=== PATIENT | female | born 1960 | race Caucasian/White ===

== ENCOUNTER → 2017-01-08 | Outpatient (CLI) | payer MEDICARE ==
--- NOTE | 2017-01-10 08:10 | MM ---
Reason for exam: screening (asymptomatic). Last mammogram was performed 2 years and 6 months ago. History: Patient is postmenopausal. Physical Findings: A clinical breast exam by your physician is recommended on an annual basis and results should be correlated with mammographic findings. MG 3D Screening Mammo W/Cad Bilateral CC, MLO, and XCCL view(s) were taken. Prior study comparison: July 04, 2014, bilateral MG screening mammo w CAD. January 15, 2012, [facility] DIGITAL RIGHT MAMMOGRAM w/CAD. January 08, 2012, bilateral digital screening mammo w/CAD. The breast tissue is heterogeneously dense. This may lower the sensitivity of mammography. Stable scattered bilateral calcifications. ASSESSMENT: Negative, BI-RAD 1 RECOMMENDATION: Routine screening mammogram of both breasts in 1 year.
== END | disposition home or self-care (01) ==
LOC: RADMAMWWP 16:34
PROVIDERS: ATTEND Family Medicine
DX: Z12.31 Encounter for screening mammogram for malignant neoplasm of breast (principal)
CPT/HCPCS: 77063; G0202

== ENCOUNTER 2017-08-28 18:15 | Emergency (ER) | payer MEDICARE ==
[2017-08-28 20:41] LABS: Glucose,Whole Blood 448 mg/dL (75-99)
--- NOTE | 2017-08-28 21:14 | ED ---
Extremity Problem HPI - General Chief complaint: Extremity Problem,Nontraumatic Stated complaint: diabetic feet problem Time Seen by Provider: 08/28/17 19:46 Source: patient, RN notes reviewed, old records reviewed Mode of arrival: ambulatory Limitations: no limitations - History of Present Illness Initial comments: This patient is a 57-year-old female presents emergency Department chief complaint of areas of erythema and changes over her right great toe, right second toe, and left second toe. Patient reports that she had this for approximately one day. She reports that she took a shower on Friday and didn 't notice any of this. She does have a history of diabetes and has not been on her medications for many months. Patient's concerned about her blood sugar levels. Patient states that she has neuropathy. - Related Data Home Medications Medication Instructions Recorded Confirmed HYDROcodone/APAP 7.5-325MG [[place] 1 tab PO Q6HR PRN 01/24/14 08/28/17 7.5] Ibuprofen [Motrin Ib] 200 - 400 mg PO Q6H PRN 08/28/17 08/28/17 Ibuprofen/Diphenhydramine HCl 1 cap PO HS 08/28/17 08/28/17 [Advil Pm Liqui-Gels] Multivitamins, Thera [Multivitamin 1 tab PO DAILY 08/28/17 08/28/17 (formulary)] Allergies Allergy/AdvReac Type Severity Reaction Status Date / Time pregabalin [From Lyrica] AdvReac Swelling Verified 08/28/17 19:46 trazodone AdvReac Unknown Verified 08/28/17 19:46 Review of Systems ROS Statement: Those systems with pertinent positive or pertinent negative responses have been documented in the HPI. ROS Other: All systems not noted in ROS Statement are negative. Past Medical History Past Medical History: Diabetes Mellitus, Fibromyalgia, Hyperlipidemia Additional Past Medical History / Comment(s): myalgia, myositis, sciatica, chronic pain syndrome, vaginitis, otalgia, fatigue, malaise, UTI, microscopic hematuria, tachycardia, insomnia, lumbago, degenerative disc, colitis History of Any Multi-Drug Resistant Organisms: None Reported Past Surgical History: Orthopedic Surgery Additional Past Surgical History / Comment(s): left wrist Past Psychological History: No Psychological Hx Reported Smoking Status: Current every day smoker Past Alcohol Use History: None Reported Past Drug Use History: None Reported General Exam - General Exam Comments Initial Comments: This patient is a 57-year-old female. No acute distress. Limitations: no limitations General appearance: alert, in no apparent distress Head exam: Present: atraumatic, normocephalic, normal inspection Eye exam: Present: normal appearance, PERRL, EOMI. Absent: scleral icterus, conjunctival injection, periorbital swelling ENT exam: Present: normal exam, mucous membranes moist Neck exam: Present: normal inspection. Absent: tenderness, meningismus, lymphadenopathy Respiratory exam: Present: normal lung sounds bilaterally. Absent: respiratory distress, wheezes, rales, rhonchi, stridor Cardiovascular Exam: Present: regular rate, normal rhythm, normal heart sounds. Absent: systolic murmur, diastolic murmur, rubs, gallop, clicks GI/Abdominal exam: Present: soft, normal bowel sounds. Absent: distended, tenderness, guarding, rebound, rigid Extremities exam: Present: full ROM, normal capillary refill. Absent: normal inspection, tenderness, pedal edema, joint swelling, calf tenderness Left Lower Leg exam: Present: normal inspection, full ROM Ankle exam: Present: normal inspection, full ROM Foot/Toe exam: Present: full ROM. Absent: normal inspection (Patient has an area of blistering over the right great toe. Area of black blistering over the distal part of the right second toe. There is also a black blister on the second left toe. Full range of motion noted.), tenderness, swelling, abrasion Neurovascular tendon exam: Present: no vascular compromise Gait: observed and normal Back exam: Present: normal inspection Neurological exam: Present: alert, oriented X3, CN II-XII intact Psychiatric exam: Present: normal affect, normal mood Skin exam: Present: warm, dry, intact, normal color. Absent: rash Course Vital Signs 08/28/17 18:54 Temperature 98.0 F Pulse Rate 109 H Respiratory 16 Rate Blood Pressure 116/55 O2 Sat by Pulse 98 Oximetry Medical Decision Making - Medical Decision Making Patient is a 57-year-old female presents today with changes to her right first and second toe and left second toe. She reports it started today. It appears that there black blisterlike lesions over the distal end of the toe. She has full range of motion. No pus or significant drainage from them. It appears that they are related to rubbing on her shows as they are on both feet. Pulses were normal bilaterally. Full range of motion. She does have some minor diminished sensation in 8. She has a history of diabetes. Patient's blood sugar was elevated at 450. Patient has no anion gap. Patient was given Unasyn insulin. Discussion is follow-up with her primary care provider regards to insulin dosing. At this time I had Dr. Kemp and Dr. Mcgee both examine the foot. They don't believe that she is antibiotics and no significant infection at this time. Patient will be discharged advised to apply motions to the feet and the skin will eventually come off at the scene. Been "blood blisters". Patient will be discharged at this time with follow-up with podiatry. - Lab Data Result diagrams: 08/28/17 21:05 08/28/17 21:05 Lab Results 08/28/17 08/28/17 08/28/17 Range/Units 20:39 21:05 21:05 WBC 7.3 (3.8-10.6) k/uL RBC 4.70 (3.80-5.40) m/uL Hgb 14.4 (11.4-16.0) gm/dL Hct 43.8 (34.0-46.0) % MCV 93.2 (80.0-100.0) fL MCH 30.7 (25.0-35.0) pg MCHC 32.9 (31.0-37.0) g/dL RDW 12.7 (11.5-15.5) % Plt Count 194 (150-450) k/uL Neutrophils % 49 % Lymphocytes % 40 % Monocytes % 4 % Eosinophils % 4 % Basophils % 1 % Neutrophils # 3.6 (1.3-7.7) k/uL Lymphocytes # 3.0 (1.0-4.8) k/uL Monocytes # 0.3 (0-1.0) k/uL Eosinophils # 0.3 (0-0.7) k/uL Basophils # 0.1 (0-0.2) k/uL Sodium 137 (137-145) mmol/L Potassium 4.0 (3.5-5.1) mmol/L Chloride 96 L (98-107) mmol/L Carbon Dioxide 32 H (22-30) mmol/L Anion Gap 9 mmol/L BUN 15 (7-17) mg/dL Creatinine 0.40 L (0.52-1.04) mg/dL Est GFR (MDRD) Af Amer >60 (>60 ml/min/1.73 sqM) Est GFR (MDRD) Non-Af >60 (>60 ml/min/1.73 sqM) Glucose 415 H (74-99) mg/dL POC Glucose (mg/dL) 448 H (75-99) mg/dL POC Glu [employer] Professor ID Sita Baker Calcium 9.5 (8.4-10.2) mg/dL Disposition Clinical Impression: Blister of foot, Hyperglycemia Disposition: HOME SELF-CARE Condition: Good Instructions: Blister (ED), Diabetic Hyperglycemia (ED) Additional Instructions: Patient should follow-up with primary care physician for elevated blood sugars. Follow-up with podiatry regards to the blisters on the toes. Apply moisturizing lotion over the feet. Wear nonconstrictive footwear. Return if there is any alarming signs or symptoms that occur. Referrals: Vince Marcos III, MD [Primary Care Provider] - 1-2 days Jerson Frank DPM [STAFF PHYSICIAN] - 1-2 days Time of Disposition: 21:50
--- NOTE | 2017-08-28 21:18 | XR ---
EXAMINATION TYPE: XR toes bilateral DATE OF EXAM: 08/28/2017 COMPARISON: NONE HISTORY: Pain great toe and second toe discoloration TECHNIQUE: Toes are examined in 3 projections each. FINDINGS: The right great toe appears without acute fracture. There is some degenerative joint changes present. Some elevated nail may be present. Left fourth digit has soft tissue swelling. There is medial angulation of the digit. Acute fracture i s not identified. Note is made of some elevated nailbed on the left great toe. IMPRESSION: 1. No acute fractures. 2. Left fourth digit soft tissue swelling. 3. Evaluation of the great toe nails is recommended
[2017-08-28 21:22] LABS: Basophils # (A) 0.1 k/uL (0-0.2); Basophils % (A) 1 %; Eosinophils # (A) 0.3 k/uL (0-0.7); Eosinophils % (A) 4 %; HCT 43.8 % (34.0-46.0); HGB 14.4 gm/dL (11.4-16.0); Lymphocytes % (A) 40 %; MCH 30.7 pg (25.0-35.0); MCHC 32.9 g/dL (31.0-37.0); MCV 93.2 fL (80.0-100.0); Monocytes # (A) 0.3 k/uL (0-1.0); Monocytes % (A) 4 %; Neutrophils # (A) 3.6 k/uL (1.3-7.7); Neutrophils % (A) 49 %; Platelet Count 194 k/uL (150-450); RDW 12.7 % (11.5-15.5); WBC 7.3 k/uL (3.8-10.6)
[2017-08-28] MEDS ORDERED: INSULIN REGULAR 100 UNIT/ML VIAL IV ONE (21:22)
[2017-08-28 21:33] LABS: Anion Gap 9 mmol/L; Blood Urea Nitrogen 15 mg/dL (7-17); Calcium 9.5 mg/dL (8.4-10.2); Carbon Dioxide 32 mmol/L (22-30); Chloride 96 mmol/L (98-107); Glucose 415 mg/dL (74-99); Sodium 137 mmol/L (137-145)
[2017-08-28] MEDS ORDERED: SODIUM CHLORIDE 0.9% 1,000 ML IV ONE (21:49)
[2017-08-28 22:41] LABS: Glucose,Whole Blood 341 mg/dL (75-99)
[2017-08-28 22:47] VITALS: BP 133/79; PULSE 104; RESP 18; TEMP 97.7
[2017-08-29 01:21] LABS: Hemoglobin A1C 13.3 % (4.0-6.0)
== END 2017-08-28 22:50 | disposition home or self-care (01) ==
LOC: EC 18:15
DX: S90.421A Blister (nonthermal), right great toe, initial encounter (principal); S90.424A Blister (nonthermal), right lesser toe(s), initial encounter; E11.65 Type 2 diabetes mellitus with hyperglycemia; M79.7 Fibromyalgia; F17.200 Nicotine dependence, unspecified, uncomplicated; Z79.899 Other long term (current) drug therapy; Z79.1 Long term (current) use of non-steroidal anti-inflammatories (NSAID); Z88.8 Allergy status to other drugs, medicaments and biological substances
CPT/HCPCS: 36415; 80048; 83036; 85025; 96360; 99284

== ENCOUNTER 2017-10-30 12:59 | Emergency (ER) | payer MEDICARE ==
[2017-10-30 13:27] VITALS: RESP 18
[2017-10-30] MEDS ORDERED: KETOROLAC 30 MG/ML 1 ML VIAL IM STA (14:16)
--- NOTE | 2017-10-30 14:31 | ED ---
Fall HPI - General Chief Complaint: Fall Stated Complaint: fall, rt sided pain Time Seen by Provider: 10/30/17 13:54 Source: patient, RN notes reviewed Mode of arrival: ambulatory - History of Present Illness Initial Comments: This is a 57-year-old female who presents to the emergency department with chief complaint of right-sided rib pain. Patient states that on Friday she went to step over a baby gate and tripped over it, landing on her right side. Patient complains of right-sided rib pain. She states that she takes [place] but that it has not been helping to relieve the pain. Denies any other injury or trauma. Denies head or neck trauma. She does complain of some right-sided low back pain, however states that she does have chronic back pain. Denies fever, chills, chest pain, shortness of breath, abdominal pain, nausea or vomiting, constipation or diarrhea, dysuria or hematuria, numbness or tingling, headache or vision changes. - Related Data Home Medications Medication Instructions Recorded Confirmed HYDROcodone/APAP 7.5-325MG [[place] 1 tab PO Q6HR PRN 01/24/14 08/28/17 7.5] Ibuprofen [Motrin Ib] 200 - 400 mg PO Q6H PRN 08/28/17 08/28/17 Ibuprofen/Diphenhydramine HCl 1 cap PO HS 08/28/17 08/28/17 [Advil Pm Liqui-Gels] Multivitamins, Thera [Multivitamin 1 tab PO DAILY 08/28/17 08/28/17 (formulary)] Allergies Allergy/AdvReac Type Severity Reaction Status Date / Time pregabalin [From Lyrica] AdvReac Swelling Verified 10/30/17 13:27 trazodone AdvReac Unknown Verified 10/30/17 13:27 Review of Systems ROS Statement: Those systems with pertinent positive or pertinent negative responses have been documented in the HPI. ROS Other: All systems not noted in ROS Statement are negative. Past Medical History Past Medical History: Diabetes Mellitus, Fibromyalgia, Hyperlipidemia Additional Past Medical History / Comment(s): myalgia, myositis, sciatica, chronic pain syndrome, vaginitis, otalgia, fatigue, malaise, UTI, microscopic hematuria, tachycardia, insomnia, lumbago, degenerative disc, colitis History of Any Multi-Drug Resistant Organisms: None Reported Past Surgical History: Orthopedic Surgery Additional Past Surgical History / Comment(s): left wrist Past Psychological History: No Psychological Hx Reported Smoking Status: Current every day smoker Past Alcohol Use History: None Reported Past Drug Use History: None Reported General Exam - General Exam Comments Initial Comments: General: Awake and alert, well-developed; in no apparent distress. HEENT: Head atraumatic, normocephalic. Pupils are equal, round and reactive to light. Extraocular movements intact. Oropharynx moist without erythema or exudate. Neck: Supple. Normal ROM. Cardiovascular: Regular rate and rhythm. No murmurs, rubs or gallops. Chest symmetrical. Respiratory: Lungs clear to auscultation bilaterally. No wheezes, rales or rhonchi. Normal respiratory effort with no use of accessory muscles. Musculoskeletal: Tenderness on palpation of right lower lateral ribs. No ecchymosis, erythema or swelling noted. Normal range of motion and no tenderness bilateral upper and lower extremities. Ambulating normally. Normal range of motion of the spine. No bony point vertebral or SI joint tenderness. Pedal pulses are 2+ equal and palpable bilaterally. Skin: [place], warm and dry without rashes or lesions. Neurological: Alert and oriented x3. CN II-XII grossly intact. Speech is fluent and answers are appropriate. No focal neuro deficits. Psychiatric: Normal mood and affect. No overt signs of depression or anxiety noted. Limitations: no limitations Course Vital Signs 10/30/17 13:24 Temperature 99.7 F H Pulse Rate 100 Respiratory 18 Rate Blood Pressure 122/78 O2 Sat by Pulse 99 Oximetry Medical Decision Making - Medical Decision Making This is a 57-year-old female who presents to the emergency department for evaluation of right-sided rib pain after sustaining a fall on Friday. There is tenderness on palpation of right lower lateral ribs. PA chest and right rib x- ray revealed no acute pulmonary process or displaced rib fractures. Patient's vital signs have been stable and she is in no acute distress. She will be discharged home with recommendation to perform deep breathing in order to prevent pneumonia. She can take Tylenol or Motrin as needed. Patient is in agreement with plan and voices understanding. All questions were answered. - Radiology Data Radiology results: report reviewed PA chest and right rib series findings: The cardiomediastinal silhouette, aortic and pulmonary vasculature within normal limits. Stranding atelectasis in the mid and lower lungs. Otherwise, lungs and pleural spaces are clear. Evaluation of the right-sided ribs shows no evidence for fracture. Impression: No acute cardiopulmonary process. No displaced right rib fracture seen. Disposition Clinical Impression: Rib contusion Disposition: HOME SELF-CARE Condition: Good Instructions: Rib Contusion (ED) Additional Instructions: Please perform deep breathing at least 3 times an hour for the next week. May take Tylenol or Motrin as needed for pain. Please follow up with primary care provider within 1-2 days. Return to emergency department if symptoms should worsen or any concerns arise. Referrals: Vince Marcos III, MD [Primary Care Provider] - 1-2 days Time of Disposition: 15:29
--- NOTE | 2017-10-30 15:08 | XR ---
EXAMINATION TYPE: PA chest and right rib series DATE OF EXAM: 10/30/2017 COMPARISON: None HISTORY: 57-year-old female with fall and pain TECHNIQUE: 5 views FINDINGS: The cardiomediastinal silhouette, aorta, and pulmonary vasculature are within normal limits. Strandy atelectasis in the mid and lower lungs. Otherwise, lungs and pleural spaces are clear. Evaluation of the right-sided ribs shows no evidence for displaced fracture. IMPRESSION: No acute cardiopulmonary process. No displaced right rib fracture seen.
[2017-10-30 15:38] VITALS: BP 151/85; PULSE 90; TEMP 98.6
== END 2017-10-30 15:37 | disposition home or self-care (01) ==
LOC: EC 12:59
DX: S20.211A Contusion of right front wall of thorax, initial encounter (principal); M79.7 Fibromyalgia; F17.200 Nicotine dependence, unspecified, uncomplicated; Z88.5 Allergy status to narcotic agent; Z88.8 Allergy status to other drugs, medicaments and biological substances; Z79.1 Long term (current) use of non-steroidal anti-inflammatories (NSAID); Z79.899 Other long term (current) drug therapy; W01.0XXA Fall on same level from slipping, tripping and stumbling without subsequent striking against object, initial encounter; Y92.009 Unspecified place in unspecified non-institutional (private) residence as the place of occurrence of the external cause
CPT/HCPCS: 96372; 99283

== ENCOUNTER → 2019-06-28 | Outpatient (CLI) | payer MEDICARE ==
--- NOTE | 2019-06-28 16:24 | FL ---
EXAMINATION TYPE: FL UGI w esophagus DATE OF EXAM: 06/28/2019 CLINICAL HISTORY: Dysphagia some choking and weight loss TECHNIQUE: A double air contrast UGI study is performed. COMPARISON: None FINDINGS: Fluoroscopy time: 1 minute 52 seconds Images: 30 Esophagus dilates to normal caliber has normal contour to the gastroesophageal junction. Gastroesopha geal junction opens to normal caliber. Note is made of multiple tertiary contractions present within the esophagus during this exam. In the horizontal drinking position there is incomplete stripping of the esophageal bolus with a secondary contraction observed within the mid esophagus. Fundus body and antrum of the stomach visualized appear normal. No intraluminal or extramural defects are evident. Barium readily empties into the normally positioned duodenal cap and sweep. Duodenal fold pattern phan ears within normal limits. IMPRESSION: 1. Presbyesophagus with secondary and tertiary contractions. 2. Stomach appears within normal limits.
== END | disposition home or self-care (01) ==
LOC: RADUSWWP 09:50
PROVIDERS: ATTEND Family Medicine
DX: K22.8 Other specified diseases of esophagus (principal)
CPT/HCPCS: 74240

== ENCOUNTER → 2020-01-02 | Outpatient (CLI) | payer MEDICARE ==
--- NOTE | 2020-01-02 08:09 | CT ---
EXAMINATION TYPE: CT lumbar spine wo con DATE OF EXAM: 01/02/2020 7:46 AM COMPARISON: None HISTORY: Low back pain, unsteadiness on feet, weakness. Dizziness CT DLP: 411.8 mGycm Automated exposure control for dose reduction was used. TECHNIQUE: Unenhanced CT of the lumbar spine was performed. Bone and soft tissue window settings are submitted as well as coronal and sagittal reconstructions. FINDINGS: The lumbar spine vertebral bodies maintain normal vertebral alignment and vertebral body he ights. Small anterior osteophytes and multilevel facet arthropathy are seen with minimal intervertebr al disc space narrowing at L5-S1. Layering biliary sludge is seen within the dependent gallbladder. M oderate atheromatous changes of the abdominal aorta and its branches. There is osseous demineralizati on, particularly demonstrated within the sacrum, this overall slightly limits evaluation. L1-L2: Normal disc space height. No gross evidence of disc herniation or central stenosis. No facet joint arthropathy. No evidence for foraminal encroachment. L2-L3: Posterior projecting osteophyte from the inferior aspect of the L2 vertebral body. There is a broad-based disc bulge and facet arthropathy without significant spinal canal stenosis on CT. Minimal bilateral neural foraminal narrowing. L3-L4: There is a left eccentric broad-based disc bulge, facet arthropathy and ligamentum flavum davidson ling creating minimal bilateral neural foraminal narrowing and minimal spinal canal stenosis. L4-L5: There is a right eccentric disc bulge, ligamentum flavum buckling and facet arthropathy creati ng mild left and moderate right neural foraminal narrowing with the appearance of severe spinal canal stenosis. L5-S1: There is prominent ligamentum flavum buckling and facet arthropathy resulting in at least mode rate spinal canal stenosis. Posterior projecting osteophytes contribute to moderate left and mild rig ht neural foraminal narrowing. Mild degree anasarca seen. IMPRESSION: 1. No vertebral body height loss or malalignment. 2. Appearance of severe spinal canal stenosis at L4-L5 and moderate spinal stenosis at L5-S1 secondar y to pronounced ligamentum flavum buckling, facet arthropathy and disc bulges. Finding could be confi rmed with MRI. If there are symptoms of cauda equina syndrome MRI would be recommended to further bailee luate for disc herniation as described herniation is limited on CT. 3. Moderate degenerative disc disease with variable degrees of neural foraminal narrowing detail at e ach level above. 4. Mild degree anasarca and probable biliary sludge are incidentally noted.
== END | disposition home or self-care (01) ==
LOC: RADCTMAIN 07:11
PROVIDERS: ATTEND Family Medicine
DX: M48.061 Spinal stenosis, lumbar region without neurogenic claudication (principal); M48.07 Spinal stenosis, lumbosacral region; M51.26 Other intervertebral disc displacement, lumbar region; M51.36 Other intervertebral disc degeneration, lumbar region; M47.816 Spondylosis without myelopathy or radiculopathy, lumbar region; R26.81 Unsteadiness on feet; R53.1 Weakness; R42 Dizziness and giddiness; W18.39XA Other fall on same level, initial encounter
CPT/HCPCS: 72131

== ENCOUNTER 2020-03-12 15:39 | Observation (INO) | payer MEDICARE ==
--- NOTE | 2020-03-12 16:13 | ED ---
General Adult HPI - General Chief complaint: Weakness Stated complaint: no appetite, recent C-diff Time Seen by Provider: 03/12/20 15:56 Source: patient Mode of arrival: wheelchair Limitations: no limitations - History of Present Illness Initial comments: Dictation was produced using Personal dictation software. please excuse any grammatical, word or spelling errors. This patient was cared for during a federal and state declared state of emergenc y secondary to Covid 19 Chief Complaint: 59-year-old female with past medical history of diabetes, fibromyalgia and dyslipidemia presents with generalized weakness. History of Present Illness: She is a 59-year-old female is presents today with symptoms since yesterday. She reports that her symptoms are poor appetite, nausea and generalized weakness. She states her symptoms remind her of when she was diagnosed with [facility] infection. States that she was admitted to [facility] for several days about a month ago. She is currently residing under the care of her friends so that she may recover. Patient normally lives by herself. She was urged to come to the emergency department by a friend's to be evaluated because patient will be at home by herself for the next couple days. Patient has any pain complaints at this time. Denies any nausea or vomiting. No diarrhea. No black tarry stools. States that she's been doing pre-well since being discharged from the hospital month ago from our [facility] difficile. She is putting on weight. The ROS documented in this emergency department record has been reviewed and confirmed by me. Those systems with pertinent positive or negative responses have been documented in the HPI. All other systems are other negative and/or noncontributory. PHYSICAL EXAM: General Impression: Alert and oriented x3, not in acute distress HEENT: Normocephalic atraumatic, extra-ocular movements intact, pupils equal and reactive to light bilaterally, mucous membranes moist. Cardiovascular: Heart regular rate and rhythm Chest: Able to complete full sentences, no retractions, no tachypnea Abdomen: abdomen soft, non-tender, non-distended, no organomegaly Musculoskeletal: Pulses present and equal in all extremities, no peripheral edema Motor: no focal deficits noted Neurological: CN II-XII grossly intact, no focal motor or sensory deficits noted Skin: Intact with no visualized rashes Psych: Normal affect and mood ED course: 59-year-old female presents with generalized weakness and fatigue. Signs upon arrival are within acceptable limits. Physical examination is benign. Laboratory evaluation obtained. Mild leukocytosis 14.2. Hemoglobin is 10.6. Total hemoglobin is 4 when compared to hemoglobin level from January. Metabolic panel is unremarkable. Rest of labs are negative. At this point there is no obvious source of bleeding but however it's likely secondary to GI bleed. Patient be admitted with GI consultation. EKG interpretation: Ventricular rate 83, sinus rhythm,. Interval 1:30, QRS 76, QTC 462. No AR prolongation, no QTC prolongation, no ST or T-wave changes noted. No old EKG for comparison Overall, this EKG is unremarkable - Related Data Home Medications Medication Instructions Recorded Confirmed HYDROcodone/APAP 7.5-325MG [[place] 1 tab PO Q6HR PRN 01/24/14 08/28/17 7.5] Ibuprofen [Motrin Ib] 200 - 400 mg PO Q6H PRN 08/28/17 08/28/17 Ibuprofen/Diphenhydramine HCl 1 cap PO HS 08/28/17 08/28/17 [Advil Pm Liqui-Gels] Multivitamins, Thera [Multivitamin 1 tab PO DAILY 08/28/17 08/28/17 (formulary)] Allergies Allergy/AdvReac Type Severity Reaction Status Date / Time pregabalin [From Lyrica] AdvReac Swelling Verified 03/12/20 15:41 trazodone AdvReac Unknown Verified 03/12/20 15:41 Review of Systems ROS Statement: Those systems with pertinent positive or pertinent negative responses have been documented in the HPI. ROS Other: All systems not noted in ROS Statement are negative. Past Medical History Past Medical History: Diabetes Mellitus, Fibromyalgia, Hyperlipidemia Additional Past Medical History / Comment(s): myalgia, myositis, sciatica, chronic pain syndrome, vaginitis, otalgia, fatigue, malaise, UTI, microscopic hematuria, tachycardia, insomnia, lumbago, degenerative disc, colitis History of Any Multi-Drug Resistant Organisms: C-DIFF Date of last positivie culture/infection: February 15 2020 Past Surgical History: Orthopedic Surgery Additional Past Surgical History / Comment(s): left wrist Past Psychological History: No Psychological Hx Reported Past Alcohol Use History: None Reported Past Drug Use History: None Reported General Exam Limitations: no limitations Course Vital Signs 03/12/20 15:41 Temperature 98.9 F Pulse Rate 95 Respiratory 16 Rate Blood Pressure 137/85 O2 Sat by Pulse 96 Oximetry Medical Decision Making - Lab Data Result diagrams: 03/12/20 16:29 03/12/20 16:29 Lab Results 03/12/20 03/12/20 Range/Units 16:29 16:29 WBC 14.2 H (3.8-10.6) k/uL RBC 3.62 L (3.80-5.40) m/uL Hgb 10.6 L D (11.4-16.0) gm/dL Hct 34.0 (34.0-46.0) % MCV 94.1 (80.0-100.0) fL MCH 29.2 (25.0-35.0) pg MCHC 31.1 (31.0-37.0) g/dL RDW 14.0 (11.5-15.5) % Plt Count 422 (150-450) k/uL Neutrophils % 84 % Lymphocytes % 8 % Monocytes % 5 % Eosinophils % 0 % Basophils % 0 % Neutrophils # 12.0 H (1.3-7.7) k/uL Lymphocytes # 1.2 (1.0-4.8) k/uL Monocytes # 0.8 (0-1.0) k/uL Eosinophils # 0.0 (0-0.7) k/uL Basophils # 0.0 (0-0.2) k/uL Hypochromasia Slight Sodium 133 L (137-145) mmol/L Potassium 4.0 (3.5-5.1) mmol/L Chloride 95 L (98-107) mmol/L Carbon Dioxide 27 (22-30) mmol/L Anion Gap 11 mmol/L BUN 21 H (7-17) mg/dL Creatinine 0.23 L (0.52-1.04) mg/dL Est GFR (CKD-EPI)AfAm >90 (>60 ml/min/1.73 sqM) Est GFR (CKD-EPI)NonAf >90 (>60 ml/min/1.73 sqM) Glucose 373 H (74-99) mg/dL Calcium 8.2 L (8.4-10.2) mg/dL Ionized Calcium Vishal 4.6 (4.5-5.3) mg/dL Magnesium 1.9 (1.6-2.3) mg/dL Total Bilirubin 0.7 (0.2-1.3) mg/dL AST 20 (14-36) U/L ALT 12 (4-34) U/L Alkaline Phosphatase 122 (38-126) U/L Total Protein 6.3 (6.3-8.2) g/dL Albumin 2.9 L (3.5-5.0) g/dL Lipase 20 L (23-300) U/L TSH 0.693 (0.465-4.680) mIU/L Disposition Clinical Impression: Symptomatic anemia Disposition: ADMITTED IP TO THIS HOSP Condition: Fair Referrals: Vince Marcos III, MD [Primary Care Provider] - 1-2 days Decision Time: 17:44
[2020-03-12 16:38] LABS: Basophils % (A) 0 %; Eosinophils % (A) 0 %; Hypochromasia Slight; Lymphocytes # (A) 1.2 k/uL (1.0-4.8); Lymphocytes % (A) 8 %; MCH 29.2 pg (25.0-35.0); MCHC 31.1 g/dL (31.0-37.0); MCV 94.1 fL (80.0-100.0); Mean Platelet Volume 7.5; Monocytes # (A) 0.8 k/uL (0-1.0); Monocytes % (A) 5 %; Neutrophils % (A) 84 %; Platelet Count 422 k/uL (150-450); RBC 3.62 m/uL (3.80-5.40); WBC 14.2 k/uL (3.8-10.6)
[2020-03-12 16:51] LABS: Ionized Calcium 4.6 mg/dL (4.5-5.3)
[2020-03-12 16:53] LABS: HGB 10.6 gm/dL (11.4-16.0)
[2020-03-12 17:00] LABS: ALT 12 U/L (4-34); AST 20 U/L (14-36); African American GFR (CKD) >90 (>60 ml/min/1.73 sqM); Albumin 2.9 g/dL (3.5-5.0); Alkaline Phosphatase 122 U/L (38-126); Anion Gap 11 mmol/L; Blood Urea Nitrogen 21 mg/dL (7-17); Calcium 8.2 mg/dL (8.4-10.2); Carbon Dioxide 27 mmol/L (22-30); Chloride 95 mmol/L (98-107); Glucose 373 mg/dL (74-99); Magnesium 1.9 mg/dL (1.6-2.3); Non-African American GFR(CKD) >90 (>60 ml/min/1.73 sqM); Sodium 133 mmol/L (137-145); Total Bilirubin 0.7 mg/dL (0.2-1.3); Total Protein 6.3 g/dL (6.3-8.2)
[2020-03-12] MEDS ORDERED: PANTOPRAZOLE 40 MG/10 ML VIAL IVP STA (17:41)
[2020-03-12] MEDS ORDERED: NALOXONE 0.4 MG/ML 1 ML VIAL IV PRN (17:42)
[2020-03-12] MEDS ORDERED: ONDANSETRON 4 MG/2 ML VIAL IVP PRN (17:42)
[2020-03-12 17:53] LABS: Amorphous Sediment,Urine Rare /hpf; Appearance,Urine Cloudy (Clear); Bacteria,Urine Many /hpf; Bilirubin,Urine Negative (Negative); Blood,Urine Negative (Negative); Budding Yeast,Urine Few /hpf; Color,Urine Yellow; Glucose,Urine (UA) 4+ (Negative); Hyaline Casts,Urine 1 /lpf (0-2); Ketones,Urine 1+ (Negative); Leukocyte Esterase,Urine Trace (Negative); Mucus,Urine Few /hpf; Nitrite,Urine Positive (Negative); PH, Urine 6.5 (5.0-8.0); Protein,Urine 1+ (Negative); RBC,Urine 3 /hpf (0-5); Specific Gravity,Urine 1.034 (1.001-1.035); Squamous Epithelial Cell,Urine 15 /hpf (0-4); Urobilinogen,Urine <2.0 mg/dL (<2.0); WBC,Urine 14 /hpf (0-5)
[2020-03-12] MEDS: SODIUM CHLORIDE 0.9% 1,000 ML IV SCH (18:09)
[2020-03-12 21:14] LABS: Glucose,Whole Blood 309 mg/dL (75-99)
[2020-03-12] MEDS: metFORMIN 500 MG TAB PO SCH (21:42)
[2020-03-12] MEDS: GABAPENTIN 100 MG CAP PO SCH (21:42)
[2020-03-12] MEDS: INSULIN ASPART (NovoLOG) 100 UNIT/ML VIAL SQ SCH (21:43)
[2020-03-12] MEDS: HYDROcodone/APAP 10-325MG 1 EACH TAB PO PRN (21:52)
[2020-03-12] MEDS: TEMAZEPAM 7.5 MG CAP PO PRN (22:16)
[2020-03-12] MEDS: VARENICLINE 1 MG TAB PO SCH (22:16)
[2020-03-12] MEDS: INSULN ASP PRT/INSULIN ASPART 100 UNIT/ML 10 ML VIAL SQ SCH (22:47)
[2020-03-13] MEDS ORDERED: DEXTROSE 50% SYRINGE 50 ML IVP ONE (03:31)
[2020-03-13 03:40] LABS: Glucose,Whole Blood 57 mg/dL (75-99)
[2020-03-13 03:59] LABS: Glucose,Whole Blood 177 mg/dL (75-99)
[2020-03-13] MEDS: SODIUM CHLORIDE 0.9% 1,000 ML IV SCH ×2 (05:17→18:43)
[2020-03-13 06:29] LABS: Glucose,Whole Blood 106 mg/dL (75-99)
[2020-03-13] MEDS: INSULIN ASPART (NovoLOG) 100 UNIT/ML VIAL SQ SCH ×4 (08:23→21:08)
[2020-03-13] MEDS: INSULN ASP PRT/INSULIN ASPART 100 UNIT/ML 10 ML VIAL SQ SCH ×2 (08:24→18:43)
[2020-03-13] MEDS: GABAPENTIN 100 MG CAP PO SCH ×2 (08:35→21:07)
[2020-03-13] MEDS: HYDROcodone/APAP 10-325MG 1 EACH TAB PO PRN ×3 (08:35→23:13)
[2020-03-13] MEDS: DULoxetine HCL 30 MG CAPSULE.DR PO SCH (08:35)
[2020-03-13] MEDS: VARENICLINE 1 MG TAB PO SCH ×2 (08:35→21:37)
[2020-03-13] MEDS: PANTOPRAZOLE 40 MG/10 ML VIAL IV SCH (08:36)
[2020-03-13 10:46] LABS: Basophils % (A) 0 %; Eosinophils # (A) 0.1 k/uL (0-0.7); Eosinophils % (A) 0 %; HCT 34.3 % (34.0-46.0); HGB 10.8 gm/dL (11.4-16.0); Hypochromasia Slight; Lymphocytes # (A) 0.9 k/uL (1.0-4.8); Lymphocytes % (A) 6 %; MCH 29.5 pg (25.0-35.0); MCHC 31.6 g/dL (31.0-37.0); MCV 93.5 fL (80.0-100.0); Monocytes # (A) 0.8 k/uL (0-1.0); Monocytes % (A) 5 %; Neutrophils # (A) 13.4 k/uL (1.3-7.7); Neutrophils % (A) 87 %; Platelet Count 450 k/uL (150-450); RBC 3.66 m/uL (3.80-5.40); RDW 13.9 % (11.5-15.5); WBC 15.4 k/uL (3.8-10.6)
[2020-03-13 11:17] LABS: African American GFR (CKD) >90 (>60 ml/min/1.73 sqM); Anion Gap 6 mmol/L; Blood Urea Nitrogen 14 mg/dL (7-17); Calcium 7.9 mg/dL (8.4-10.2); Carbon Dioxide 28 mmol/L (22-30); Chloride 99 mmol/L (98-107); Glucose 109 mg/dL (74-99); Non-African American GFR(CKD) >90 (>60 ml/min/1.73 sqM); Potassium 3.7 mmol/L (3.5-5.1); Sodium 133 mmol/L (137-145)
[2020-03-13] MEDS: metFORMIN 500 MG TAB PO SCH ×2 (11:17→21:07)
[2020-03-13 11:34] LABS: C Reactive Protein 142.4 mg/L (<10.0)
[2020-03-13 11:38] LABS: Glucose,Whole Blood 116 mg/dL (75-99)
--- NOTE | 2020-03-13 12:53 | P.HPIM ---
History of Present Illness H&P Date: 03/13/20 Chief Complaint: Generalized weakness and fatigue Ms. Falcon is a 59-year-old female with a past medical history of diabetes mellitus, fibromyalgia, hypertension, hyperlipidemia, chronic pain syndrome, chronic low back pain, a patient of Dr. Marcos in the outpatient setting, coming into the emergency department as the patient was having fatigue and generalized weakness for the past couple of days. Patient has a recent admission at [facility] for [facility] diff and then discharged home. She has been staying at her friend's place since then and recovering. But for the past couple of days she has been having low-grade temperatures and was also sweating. Patient denied having any chest pain or cough. She denies having any headaches, neck stiffness or blurring of vision. Patient denies having any abdominal pain, nausea or vomiting. She denies having any dysuria or hematuria. Patient denies having any swelling of her lower extremities. In the emergency department patient was found to have a low-grade fever 99.2, slightly tachycardic around 90, blood pressure 142/82, saturating at 95% on room air. Blood work has been reviewed and she was found to have white count of 15.4, hemoglobin of 10.8, sodium 133, progression 3.7, creatinine 14, creatinine 0.20, C-reactive protein 142.4. Her urine analysis is positive for 4+ glucose, 1+ ketones, positive for nitrites and trace leukocyte esterase along with a budding yeast and urine culture is pending. Review of Systems REVIEW OF SYSTEMS: CONSTITUTIONAL: Fatigue and generalized weakness. HEENT: No recent visual problems or hearing problems. Denied any sore throat. CARDIOVASCULAR: No orthopnea, PND, no palpitations, no syncope. PULMONARY: No shortness of breath, no cough, no hemoptysis. GASTROINTESTINAL: No diarrhea, no nausea,no abdominal pain. NEUROLOGICAL: No headaches, no weakness, no numbness. HEMATOLOGICAL: Denies any bleeding or petechiae. GENITOURINARY: Denies any burning micturition, frequency, or urgency. MUSCULOSKELETAL/RHEUMATOLOGICAL: As per HPI ENDOCRINE: Denies any polyuria or polydipsia. The rest of the 13-point review of systems is negative. Past Medical History Past Medical History: Diabetes Mellitus, Fibromyalgia, Hyperlipidemia Additional Past Medical History / Comment(s): myalgia, myositis, sciatica, chronic pain syndrome, vaginitis, otalgia, fatigue, malaise, UTI, microscopic hematuria, tachycardia, insomnia, lumbago, degenerative disc, colitis History of Any Multi-Drug Resistant Organisms: C-DIFF Date of last positivie culture/infection: February 15 2020 MDRO Source:: stool Past Surgical History: Orthopedic Surgery, Tubal Ligation Additional Past Surgical History / Comment(s): left wrist Past Anesthesia/Blood Transfusion Reactions: No Reported Reaction Past Psychological History: Depression Smoking Status: Former smoker Past Alcohol Use History: None Reported Past Drug Use History: None Reported - Past Family History Mother Family Medical History: Cancer, COPD Additional Family Medical History / Comment(s): cervical cancer Father Additional Family Medical History / Comment(s): etoh abuse Medications and Allergies Home Medications Medication Instructions Recorded Confirmed Type Ibuprofen/Diphenhydramine HCl 2 cap PO HS 08/28/17 03/12/20 History [Advil Pm Liqui-Gels] Acetaminophen [Tylenol] 1,000 mg PO DAILY PRN 03/12/20 03/12/20 History DULoxetine HCL [Cymbalta] 30 mg PO DAILY 03/12/20 03/12/20 History Gabapentin [Neurontin] 100 mg PO QAM 03/12/20 03/12/20 History Gabapentin [Neurontin] 200 mg PO HS 03/12/20 03/12/20 History HYDROcodone/APAP 10-325MG [[place] 1 tab PO Q6H PRN 03/12/20 03/12/20 History 10-325] Insulin NPH Hum/Reg Insulin Hm 22 units SQ BID-W/MEALS 03/12/20 03/12/20 History [Novolin 70-30 Flexpen] Temazepam [Restoril] 7.5 mg PO HS PRN 03/12/20 03/12/20 History Varenicline [Chantix Continuing 1 mg PO BID 03/12/20 03/12/20 History Pack] metFORMIN HCL [Glucophage] 1,000 mg PO Q12H 03/12/20 03/12/20 History Allergies Allergy/AdvReac Type Severity Reaction Status Date / Time pregabalin [From Lyrica] AdvReac Swelling Verified 03/12/20 18:06 trazodone AdvReac Unknown Verified 03/12/20 18:06 Physical Exam Vitals: Vital Signs Temp Pulse Pulse Resp BP BP Pulse Ox 03/13/20 08:17 98.9 F 95 16 161/88 94 L 03/13/20 03:29 98.3 F 91 16 147/71 93 L 03/12/20 18:34 98.6 F 89 17 172/81 95 03/12/20 18:08 99.2 F 75 18 142/82 94 L 03/12/20 15:41 98.9 F 95 16 137/85 96 Intake and Output 03/12/20 03/13/20 03/13/20 22:59 06:59 14:59 Intake Total 0 Balance 0 Intake: Oral 0 Other: Voiding Method Toilet Toilet Toilet # Voids 2 1 # Bowel Movements 1 1 Weight 49.351 kg PHYSICAL EXAMINATION: Patient's blood pressure is 1 61 /88, saturating at 94 % on room air, T-max in the 24 hours 99.4, heart rate 80-90's GENERAL: not in any acute distress. HEENT: Pupils are round and equally reacting to light. EOMI. mild scleral icterus. No conjunctival pallor. Normocephalic, atraumatic. No pharyngeal erythema. No thyromegaly. CARDIOVASCULAR: Tachycardic, S1 and S2 heard No additional sounds. PULMONARY: Bilateral breath sounds are positive. No wheeze or crackles. ABDOMEN: Soft, nontender, nondistended, normoactive bowel sounds. No palpable organomegaly. MUSCULOSKELETAL: No joint swelling or deformity. EXTREMITIES: No cyanosis, clubbing, or pedal edema. NEUROLOGICAL: Gross neurological examination did not reveal any focal deficits. PSYCHIATRIC: Appropriate mood and affect Results CBC & Chem 7: 03/13/20 10:12 03/13/20 10:12 Labs: Abnormal Lab Results - Last 24 Hours (Table) 03/12/20 03/12/20 03/12/20 Range/Units 16:29 16:29 16:29 WBC 14.2 H (3.8-10.6) k/uL RBC 3.62 L (3.80-5.40) m/uL Hgb 10.6 L D (11.4-16.0) gm/dL Neutrophils # 12.0 H (1.3-7.7) k/uL Lymphocytes # (1.0-4.8) k/uL ESR (0-20) mm/hr Sodium 133 L (137-145) mmol/L Chloride 95 L (98-107) mmol/L BUN 21 H (7-17) mg/dL Creatinine 0.23 L (0.52-1.04) mg/dL Glucose 373 H (74-99) mg/dL POC Glucose (mg/dL) (75-99) mg/dL Calcium 8.2 L (8.4-10.2) mg/dL C-Reactive Protein (<10.0) mg/L Albumin 2.9 L (3.5-5.0) g/dL Lipase 20 L (23-300) U/L Urine Appearance Cloudy H (Clear) Urine Protein 1+ H (Negative) Urine Glucose (UA) 4+ H (Negative) Urine Ketones 1+ H (Negative) Urine Nitrite Positive H (Negative) Ur Leukocyte Esterase Trace H (Negative) Urine WBC 14 H (0-5) /hpf Ur Squamous Epith Cells 15 H (0-4) /hpf Amorphous Sediment Rare H (None) /hpf Urine Bacteria Many H (None) /hpf Urine Mucus Few H (None) /hpf Urine Yeast (Budding) Few H (None) /hpf 03/12/20 03/13/20 03/13/20 Range/Units 21:11 03:29 03:57 WBC (3.8-10.6) k/uL RBC (3.80-5.40) m/uL Hgb (11.4-16.0) gm/dL Neutrophils # (1.3-7.7) k/uL Lymphocytes # (1.0-4.8) k/uL ESR (0-20) mm/hr Sodium (137-145) mmol/L Chloride (98-107) mmol/L BUN (7-17) mg/dL Creatinine (0.52-1.04) mg/dL Glucose (74-99) mg/dL POC Glucose (mg/dL) 309 H 57 L 177 H (75-99) mg/dL Calcium (8.4-10.2) mg/dL C-Reactive Protein (<10.0) mg/L Albumin (3.5-5.0) g/dL Lipase (23-300) U/L Urine Appearance (Clear) Urine Protein (Negative) Urine Glucose (UA) (Negative) Urine Ketones (Negative) Urine Nitrite (Negative) Ur Leukocyte Esterase (Negative) Urine WBC (0-5) /hpf Ur Squamous Epith Cells (0-4) /hpf Amorphous Sediment (None) /hpf Urine Bacteria (None) /hpf Urine Mucus (None) /hpf Urine Yeast (Budding) (None) /hpf 03/13/20 03/13/20 03/13/20 Range/Units 06:19 10:12 10:12 WBC 15.4 H (3.8-10.6) k/uL RBC 3.66 L (3.80-5.40) m/uL Hgb 10.8 L (11.4-16.0) gm/dL Neutrophils # 13.4 H (1.3-7.7) k/uL Lymphocytes # 0.9 L (1.0-4.8) k/uL ESR 99 H (0-20) mm/hr Sodium (137-145) mmol/L Chloride (98-107) mmol/L BUN (7-17) mg/dL Creatinine (0.52-1.04) mg/dL Glucose (74-99) mg/dL POC Glucose (mg/dL) 106 H (75-99) mg/dL Calcium (8.4-10.2) mg/dL C-Reactive Protein (<10.0) mg/L Albumin (3.5-5.0) g/dL Lipase (23-300) U/L Urine Appearance (Clear) Urine Protein (Negative) Urine Glucose (UA) (Negative) Urine Ketones (Negative) Urine Nitrite (Negative) Ur Leukocyte Esterase (Negative) Urine WBC (0-5) /hpf Ur Squamous Epith Cells (0-4) /hpf Amorphous Sediment (None) /hpf Urine Bacteria (None) /hpf Urine Mucus (None) /hpf Urine Yeast (Budding) (None) /hpf 03/13/20 03/13/20 Range/Units 10:12 11:37 WBC (3.8-10.6) k/uL RBC (3.80-5.40) m/uL Hgb (11.4-16.0) gm/dL Neutrophils # (1.3-7.7) k/uL Lymphocytes # (1.0-4.8) k/uL ESR (0-20) mm/hr Sodium 133 L (137-145) mmol/L Chloride (98-107) mmol/L BUN (7-17) mg/dL Creatinine 0.20 L (0.52-1.04) mg/dL Glucose 109 H (74-99) mg/dL POC Glucose (mg/dL) 116 H (75-99) mg/dL Calcium 7.9 L (8.4-10.2) mg/dL C-Reactive Protein 142.4 H (<10.0) mg/L Albumin (3.5-5.0) g/dL Lipase (23-300) U/L Urine Appearance (Clear) Urine Protein (Negative) Urine Glucose (UA) (Negative) Urine Ketones (Negative) Urine Nitrite (Negative) Ur Leukocyte Esterase (Negative) Urine WBC (0-5) /hpf Ur Squamous Epith Cells (0-4) /hpf Amorphous Sediment (None) /hpf Urine Bacteria (None) /hpf Urine Mucus (None) /hpf Urine Yeast (Budding) (None) /hpf Microbiology - Last 24 Hours (Table) 03/12/20 16:29 Urine Culture - Preliminary Urine,Voided Thrombosis Risk Factor Assmnt - Choose All That Apply Each Factor Represents 1 point: Age 41-60 years Other congenital or acquired thrombophilia - If yes, enter type in comment: No Thrombosis Risk Factor Assessment Total Risk Factor Score: 1 Thrombosis Risk Factor Assessment Level: Low Risk Assessment and Plan Assessment: ASSESSMENT Possible sepsis -source could be UTI Normocytic anemia Elevated CRP levels Recent C. diff infection Type 2 diabetes mellitus poorly controlled Fibromyalgia Hypertension Hyperlipidemia Chronic pain syndrome degenerative disc disease Former smoker History of depression PLAN: Patient has a low-grade fever and the sweating, urine is positive for budding yeast which could be the source of infection. Urine culture is pending. Will obtain an ID consult. We will also obtain a chest x-ray . Patient has been restarted on her home medications. She's been getting IV fluids at the 90 mL/h. Further recommendations to follow depending on the progress of the patient.
--- NOTE | 2020-03-13 13:13 | XR ---
EXAMINATION TYPE: XR chest 2V DATE OF EXAM: 03/13/2020 COMPARISON: Chest x-ray October 30, 2017. HISTORY: Weakness and weight loss. TECHNIQUE: Frontal and lateral views of the chest are obtained. FINDINGS: There is background chronic emphysematous change with increased alveolar and interstitial opacity right lung base now partially silhouetting right heart border and hemidiaphragm. Left lung is clear. No new mediastinal shift. The cardiac silhouette size remains within normal limits. The os seous structures remain intact. IMPRESSION: Background chronic emphysematous change with new small to moderate size right pleural ef fusion along with right middle and lower lobe alveolar and interstitial edema and/or infiltrates. Pro sulaiman study advised.
[2020-03-13] MEDS: LACTOBACILLUS ACIDOPH & BULGAR 1 EACH PACKET PO SCH ×2 (14:00→21:08)
[2020-03-13 16:55] LABS: Glucose,Whole Blood 153 mg/dL (75-99)
[2020-03-13] MEDS ORDERED: LIDOCAINE 1% (10MG/ML) FOR IV START INTRADERMA PRN (17:38)
[2020-03-13] MEDS ORDERED: LACTATED RINGERS 1,000 ML IV SCH (17:45)
[2020-03-13 20:11] LABS: Glucose,Whole Blood 164 mg/dL (75-99)
[2020-03-13] MEDS: TEMAZEPAM 7.5 MG CAP PO PRN (21:09)
[2020-03-13 21:34] LABS: Hemoglobin A1C 9.8 % (4.0-6.0)
--- NOTE | 2020-03-13 23:52 | P.CONS ---
History of Present Illness - Reason for Consult Consult date: 03/13/20 Urinary tract infection Requesting physician: Criselda Arreguin - Chief Complaint weakness no appetite x few days - History of Present Illness Patient is a 59-year-old female who apparently was recently admitted at [facility] weeks ago patient did have significant diarrhea at that point she was diagnosed with C. diff colitis that has been treated with medication with the patient completed few weeks ago patient currently do not have any diarrhea the last 2 weeks, patient has been brought to the ER by friends with concern for generalized weakness that has been fully investigated worse over the last few days patient also mentioned low appetite and decreased oral intake the patient denies having any headache or URI symptoms, denies having any chest pain minimal shortness of breath and dry cough no nausea no vomiting and no abdominal pain no diarrhea With the symptoms the patient was evaluated by the physician on arrival to the the patient has been afebrile however she did have elevated white count of 14,000 the results of 15.4 thousand today the patient did have a mildly positive UA, infectious disease was consulted for recommendations regarding antibiotic therapy Review of Systems Positive point has been mentioned in the HPI rest of the systems are negative Past Medical History Past Medical History: Diabetes Mellitus, Fibromyalgia, Hyperlipidemia Additional Past Medical History / Comment(s): myalgia, myositis, sciatica, chronic pain syndrome, vaginitis, otalgia, fatigue, malaise, UTI, microscopic hematuria, tachycardia, insomnia, lumbago, degenerative disc, colitis History of Any Multi-Drug Resistant Organisms: C-DIFF Year Discovered:: February 15 2020 MDRO Source:: stool Past Surgical History: Orthopedic Surgery, Tubal Ligation Additional Past Surgical History / Comment(s): left wrist Past Anesthesia/Blood Transfusion Reactions: No Reported Reaction Past Psychological History: Depression Smoking Status: Former smoker Past Alcohol Use History: None Reported Past Drug Use History: None Reported - Past Family History Mother Family Medical History: Cancer, COPD Additional Family Medical History / Comment(s): cervical cancer Father Additional Family Medical History / Comment(s): etoh abuse Medications and Allergies Home Medications Medication Instructions Recorded Confirmed Type Ibuprofen/Diphenhydramine HCl 2 cap PO HS 08/28/17 03/12/20 History [Advil Pm Liqui-Gels] Acetaminophen [Tylenol] 1,000 mg PO DAILY PRN 03/12/20 03/12/20 History DULoxetine HCL [Cymbalta] 30 mg PO DAILY 03/12/20 03/12/20 History Gabapentin [Neurontin] 100 mg PO QAM 03/12/20 03/12/20 History Gabapentin [Neurontin] 200 mg PO HS 03/12/20 03/12/20 History HYDROcodone/APAP 10-325MG [[place] 1 tab PO Q6H PRN 03/12/20 03/12/20 History 10-325] Insulin NPH Hum/Reg Insulin Hm 22 units SQ BID-W/MEALS 03/12/20 03/12/20 History [Novolin 70-30 Flexpen] Temazepam [Restoril] 7.5 mg PO HS PRN 03/12/20 03/12/20 History Varenicline [Chantix Continuing 1 mg PO BID 03/12/20 03/12/20 History Pack] metFORMIN HCL [Glucophage] 1,000 mg PO Q12H 03/12/20 03/12/20 History Allergies Allergy/AdvReac Type Severity Reaction Status Date / Time pregabalin [From Lyrica] AdvReac Swelling Verified 03/12/20 18:06 trazodone AdvReac Unknown Verified 03/12/20 18:06 Physical Exam Vitals: Vital Signs Temp Pulse Pulse Resp BP BP Pulse Ox 03/13/20 08:17 98.9 F 95 16 161/88 94 L 03/13/20 03:29 98.3 F 91 16 147/71 93 L 03/12/20 18:34 98.6 F 89 17 172/81 95 03/12/20 18:08 99.2 F 75 18 142/82 94 L 03/12/20 15:41 98.9 F 95 16 137/85 96 Intake and Output 03/12/20 03/13/20 03/13/20 22:59 06:59 14:59 Intake Total 0 120 Balance 0 120 Intake: Oral 0 120 Other: Voiding Method Toilet Toilet Toilet # Voids 2 1 # Bowel Movements 1 1 Weight 49.351 kg GENERAL DESCRIPTION: Middle-aged female lying in bed, no distress. No tachypnea or accessory muscle of respiration use. HEENT: Shows Pallor , no scleral icterus. Oral mucous membrane is dry. No pharyngeal erythema or thrush NECK: Trachea central, no thyromegaly. LUNGS: Unlabored breathing. Clear to auscultation anteriorly. No wheeze or crackle. HEART: S1, S2, regular rate and rhythm. No loud murmur ABDOMEN: Soft, no tenderness , guarding or rigidity, no organomegaly EXTREMITIES: No edema of feet. SKIN: No rash, no masses palpable. NEUROLOGICAL: The patient is awake, alert, oriented x3, mood and affect normal. Results CBC & Chem 7: 03/13/20 10:12 03/13/20 10:12 Labs: Abnormal Lab Results - Last 24 Hours (Table) 03/12/20 03/12/20 03/12/20 Range/Units 16:29 16:29 16:29 WBC 14.2 H (3.8-10.6) k/uL RBC 3.62 L (3.80-5.40) m/uL Hgb 10.6 L D (11.4-16.0) gm/dL Neutrophils # 12.0 H (1.3-7.7) k/uL Lymphocytes # (1.0-4.8) k/uL ESR (0-20) mm/hr Sodium 133 L (137-145) mmol/L Chloride 95 L (98-107) mmol/L BUN 21 H (7-17) mg/dL Creatinine 0.23 L (0.52-1.04) mg/dL Glucose 373 H (74-99) mg/dL POC Glucose (mg/dL) (75-99) mg/dL Calcium 8.2 L (8.4-10.2) mg/dL C-Reactive Protein (<10.0) mg/L Albumin 2.9 L (3.5-5.0) g/dL Lipase 20 L (23-300) U/L Urine Appearance Cloudy H (Clear) Urine Protein 1+ H (Negative) Urine Glucose (UA) 4+ H (Negative) Urine Ketones 1+ H (Negative) Urine Nitrite Positive H (Negative) Ur Leukocyte Esterase Trace H (Negative) Urine WBC 14 H (0-5) /hpf Ur Squamous Epith Cells 15 H (0-4) /hpf Amorphous Sediment Rare H (None) /hpf Urine Bacteria Many H (None) /hpf Urine Mucus Few H (None) /hpf Urine Yeast (Budding) Few H (None) /hpf 03/12/20 03/13/2020 Range/Units 21:11 03:29 03:57 WBC (3.8-10.6) k/uL RBC (3.80-5.40) m/uL Hgb (11.4-16.0) gm/dL Neutrophils # (1.3-7.7) k/uL Lymphocytes # (1.0-4.8) k/uL ESR (0-20) mm/hr Sodium (137-145) mmol/L Chloride (98-107) mmol/L BUN (7-17) mg/dL Creatinine (0.52-1.04) mg/dL Glucose (74-99) mg/dL POC Glucose (mg/dL) 309 H 57 L 177 H (75-99) mg/dL Calcium (8.4-10.2) mg/dL C-Reactive Protein (<10.0) mg/L Albumin (3.5-5.0) g/dL Lipase (23-300) U/L Urine Appearance (Clear) Urine Protein (Negative) Urine Glucose (UA) (Negative) Urine Ketones (Negative) Urine Nitrite (Negative) Ur Leukocyte Esterase (Negative) Urine WBC (0-5) /hpf Ur Squamous Epith Cells (0-4) /hpf Amorphous Sediment (None) /hpf Urine Bacteria (None) /hpf Urine Mucus (None) /hpf Urine Yeast (Budding) (None) /hpf 03/13/20 03/13/20 03/13/20 Range/Units 06:19 10:12 10:12 WBC 15.4 H (3.8-10.6) k/uL RBC 3.66 L (3.80-5.40) m/uL Hgb 10.8 L (11.4-16.0) gm/dL Neutrophils # 13.4 H (1.3-7.7) k/uL Lymphocytes # 0.9 L (1.0-4.8) k/uL ESR 99 H (0-20) mm/hr Sodium (137-145) mmol/L Chloride (98-107) mmol/L BUN (7-17) mg/dL Creatinine (0.52-1.04) mg/dL Glucose (74-99) mg/dL POC Glucose (mg/dL) 106 H (75-99) mg/dL Calcium (8.4-10.2) mg/dL C-Reactive Protein (<10.0) mg/L Albumin (3.5-5.0) g/dL Lipase (23-300) U/L Urine Appearance (Clear) Urine Protein (Negative) Urine Glucose (UA) (Negative) Urine Ketones (Negative) Urine Nitrite (Negative) Ur Leukocyte Esterase (Negative) Urine WBC (0-5) /hpf Ur Squamous Epith Cells (0-4) /hpf Amorphous Sediment (None) /hpf Urine Bacteria (None) /hpf Urine Mucus (None) /hpf Urine Yeast (Budding) (None) /hpf 03/13/20 03/13/20 Range/Units 10:12 11:37 WBC (3.8-10.6) k/uL RBC (3.80-5.40) m/uL Hgb (11.4-16.0) gm/dL Neutrophils # (1.3-7.7) k/uL Lymphocytes # (1.0-4.8) k/uL ESR (0-20) mm/hr Sodium 133 L (137-145) mmol/L Chloride (98-107) mmol/L BUN (7-17) mg/dL Creatinine 0.20 L (0.52-1.04) mg/dL Glucose 109 H (74-99) mg/dL POC Glucose (mg/dL) 116 H (75-99) mg/dL Calcium 7.9 L (8.4-10.2) mg/dL C-Reactive Protein 142.4 H (<10.0) mg/L Albumin (3.5-5.0) g/dL Lipase (23-300) U/L Urine Appearance (Clear) Urine Protein (Negative) Urine Glucose (UA) (Negative) Urine Ketones (Negative) Urine Nitrite (Negative) Ur Leukocyte Esterase (Negative) Urine WBC (0-5) /hpf Ur Squamous Epith Cells (0-4) /hpf Amorphous Sediment (None) /hpf Urine Bacteria (None) /hpf Urine Mucus (None) /hpf Urine Yeast (Budding) (None) /hpf Microbiology - Last 24 Hours (Table) 03/12/20 16:29 Urine Culture - Preliminary Urine,Voided Assessment and Plan Assessment: 1- patient presented to hospital with generalized weakness no energy this patie nt who did have elevated white count and the CRP patient currently well have any significant respiratory symptoms abdominal soft there's inflammation and no evidence of cellulitis patient did have a positive UA with concern for gram- negative enteric urinary tract infection , However in view of the recent history of C. diff we will have to use antibiotic very judiciously (1) Leukocytosis Current Visit: Yes Status: Acute Code(s): D72.829 - ELEVATED WHITE BLOOD CELL COUNT, UNSPECIFIED SNOMED Code(s): 762139264 (2) Urinary tract infection Current Visit: Yes Status: Acute Code(s): N39.0 - URINARY TRACT INFECTION, SITE NOT SPECIFIED SNOMED Code(s): 76771508 Plan: 1- we will start the patient on Rocephin 1 g daily 2- patient has been encouraged to increase her yogurt intake and will add Lactinex twice daily 3- gentle IV fluid We will follow on clinical condition and cultures to further adjust medication if needed Thank you for this consultation will follow this patient with you Time with Patient: Greater than 30
[2020-03-14] MEDS: SODIUM CHLORIDE 0.9% 1,000 ML IV SCH ×2 (04:26→14:12)
[2020-03-14] MEDS: HYDROcodone/APAP 10-325MG 1 EACH TAB PO PRN ×4 (05:06→22:41)
[2020-03-14 06:06] LABS: Basophils % (A) 0 %; Eosinophils # (A) 0.1 k/uL (0-0.7); Eosinophils % (A) 1 %; HCT 33.5 % (34.0-46.0); HGB 10.8 gm/dL (11.4-16.0); Hypochromasia Slight; Lymphocytes # (A) 1.2 k/uL (1.0-4.8); Lymphocytes % (A) 10 %; MCH 30.1 pg (25.0-35.0); MCHC 32.1 g/dL (31.0-37.0); MCV 93.8 fL (80.0-100.0); Mean Platelet Volume 7.2; Monocytes # (A) 0.7 k/uL (0-1.0); Monocytes % (A) 6 %; Neutrophils # (A) 9.8 k/uL (1.3-7.7); Neutrophils % (A) 82 %; Platelet Count 456 k/uL (150-450); RBC 3.57 m/uL (3.80-5.40); RDW 13.4 % (11.5-15.5); Reticulocyte % 1.4 % (0.5-2.0); WBC 11.9 k/uL (3.8-10.6)
--- NOTE | 2020-03-14 06:22 | P.CONS ---
History of Present Illness - Reason for Consult Consult date: 03/13/20 Evaluate for GI bleed Requesting physician: Criselda Arreguin - Chief Complaint Weakness - History of Present Illness 59-year-old female with medical history significant for diabetes mellitus, fibromyalgia, hyperlipidemia, chronic lower back pain and hypertension who presented to the hospital for evaluation of weakness and fatigue. She reports worsening symptoms over the past few days prior to admission. Recently the patient was treated for infection with Clostridium difficile at [facility] and discharged home. She reports of bowel movements have remained n ormal. No further vomiting. The patient does report some nausea and reports increased somnolence with lower appetite prior to presentation. On questioning the patient denies any signs or symptoms of GI bleeding with no hematemesis, hematochezia or melena. She is unsure of any prior history of anemia and may have been on iron supplementation in the remote past. She does report using Advil PM fairly frequently. Last colonoscopy was less than 5 years ago per the patient's recollection. On presentation patient was found to have WBC 15.4, hemoglobin 10.8, platelet count 450,000. Review of Systems REVIEW OF SYSTEMS: CONSTITUTIONAL: Denies any fevers, chills, weight change but does report fatigue and tiredness. CARDIOVASCULAR: Denies any chest pain, palpitations high or low blood pressures RESPIRATORY: Denies any shortness of breath, hemoptysis or cough. GENITOURINARY: No dysuria or hematuria. MUSCULOSKELETAL: No weakness reported, but patient does report chronic back pain. SKIN: Denies any new rashes or lesions, jaundice or pallor. PSYCHIATRIC: Denies any depression or anxiety. NEUROLOGY: Denies headache, denies any new focal deficits. EARS/NOSE/THROAT: No recent hearing change, congestion, nasal discharge or sore throat. EYES: No pain in eyes, discharge or change in vision. GASTROINTESTINAL: As per HPI. Past Medical History Past Medical History: Diabetes Mellitus, Fibromyalgia, Hyperlipidemia Additional Past Medical History / Comment(s): myalgia, myositis, sciatica, chronic pain syndrome, vaginitis, otalgia, fatigue, malaise, UTI, microscopic hematuria, tachycardia, insomnia, lumbago, degenerative disc, colitis History of Any Multi-Drug Resistant Organisms: C-DIFF Year Discovered:: February 15 2020 MDRO Source:: stool Past Surgical History: Orthopedic Surgery, Tubal Ligation Additional Past Surgical History / Comment(s): left wrist Past Anesthesia/Blood Transfusion Reactions: No Reported Reaction Past Psychological History: Depression Smoking Status: Former smoker Past Alcohol Use History: None Reported Past Drug Use History: None Reported - Past Family History Mother Family Medical History: Cancer, COPD Additional Family Medical History / Comment(s): cervical cancer Father Additional Family Medical History / Comment(s): etoh abuse Medications and Allergies Home Medications Medication Instructions Recorded Confirmed Type Ibuprofen/Diphenhydramine HCl 2 cap PO HS 08/28/17 03/12/20 History [Advil Pm Liqui-Gels] Acetaminophen [Tylenol] 1,000 mg PO DAILY PRN 03/12/20 03/12/20 History DULoxetine HCL [Cymbalta] 30 mg PO DAILY 03/12/20 03/12/20 History Gabapentin [Neurontin] 100 mg PO QAM 03/12/20 03/12/20 History Gabapentin [Neurontin] 200 mg PO HS 03/12/20 03/12/20 History HYDROcodone/APAP 10-325MG [[place] 1 tab PO Q6H PRN 03/12/20 03/12/20 History 10-325] Insulin NPH Hum/Reg Insulin Hm 22 units SQ BID-W/MEALS 03/12/20 03/12/20 History [Novolin 70-30 Flexpen] Temazepam [Restoril] 7.5 mg PO HS PRN 03/12/20 03/12/20 History Varenicline [Chantix Continuing 1 mg PO BID 03/12/20 03/12/20 History Pack] metFORMIN HCL [Glucophage] 1,000 mg PO Q12H 03/12/20 03/12/20 History Allergies Allergy/AdvReac Type Severity Reaction Status Date / Time pregabalin [From Lyrica] AdvReac Swelling Verified 03/12/20 18:06 trazodone AdvReac Unknown Verified 03/12/20 18:06 Physical Exam Vitals: Vital Signs Temp Pulse Pulse Resp BP BP Pulse Ox 03/13/20 08:17 98.9 F 95 16 161/88 94 L 03/13/20 03:29 98.3 F 91 16 147/71 93 L 03/12/20 18:34 98.6 F 89 17 172/81 95 03/12/20 18:08 99.2 F 75 18 142/82 94 L 03/12/20 15:41 98.9 F 95 16 137/85 96 Intake and Output 03/12/20 03/13/20 03/13/20 22:59 06:59 14:59 Intake Total 0 120 Balance 0 120 Intake: Oral 0 120 Other: Voiding Method Toilet Toilet Toilet # Voids 2 1 # Bowel Movements 1 1 Weight 49.351 kg On physical examination, patient appears comfortable in no apparent distress. HEAD: Normocephalic, atraumatic. EYES: No scleral icterus. No conjunctival injection. MOUTH: No lesions, tongue midline. NECK: Trachea midline, no gross abnormalities. CHEST: Clear to auscultation with no wheezing or rhonchi appreciated. HEART: Regular rate and rhythm. ABDOMEN: Soft, nontender to palpation. Bowel sounds are positive. No organomegaly. No guarding or rigidity. EXTREMITIES: No pedal edema. SKIN: No rashes, no jaundice. NEUROLOGIC: Alert and oriented x3. No focal deficits. Results CBC & Chem 7: 03/14/20 05:45 03/13/20 10:12 Labs: Abnormal Lab Results - Last 24 Hours (Table) 03/12/20 03/12/20 03/12/20 Range/Units 16:29 16:29 16:29 WBC 14.2 H (3.8-10.6) k/uL RBC 3.62 L (3.80-5.40) m/uL Hgb 10.6 L D (11.4-16.0) gm/dL Neutrophils # 12.0 H (1.3-7.7) k/uL Lymphocytes # (1.0-4.8) k/uL ESR (0-20) mm/hr Sodium 133 L (137-145) mmol/L Chloride 95 L (98-107) mmol/L BUN 21 H (7-17) mg/dL Creatinine 0.23 L (0.52-1.04) mg/dL Glucose 373 H (74-99) mg/dL POC Glucose (mg/dL) (75-99) mg/dL Calcium 8.2 L (8.4-10.2) mg/dL C-Reactive Protein (<10.0) mg/L Albumin 2.9 L (3.5-5.0) g/dL Lipase 20 L (23-300) U/L Urine Appearance Cloudy H (Clear) Urine Protein 1+ H (Negative) Urine Glucose (UA) 4+ H (Negative) Urine Ketones 1+ H (Negative) Urine Nitrite Positive H (Negative) Ur Leukocyte Esterase Trace H (Negative) Urine WBC 14 H (0-5) /hpf Ur Squamous Epith Cells 15 H (0-4) /hpf Amorphous Sediment Rare H (None) /hpf Urine Bacteria Many H (None) /hpf Urine Mucus Few H (None) /hpf Urine Yeast (Budding) Few H (None) /hpf 03/12/20 03/13/20 03/13/20 Range/Units 21:11 03:29 03:57 WBC (3.8-10.6) k/uL RBC (3.80-5.40) m/uL Hgb (11.4-16.0) gm/dL Neutrophils # (1.3-7.7) k/uL Lymphocytes # (1.0-4.8) k/uL ESR (0-20) mm/hr Sodium (137-145) mmol/L Chloride (98-107) mmol/L BUN (7-17) mg/dL Creatinine (0.52-1.04) mg/dL Glucose (74-99) mg/dL POC Glucose (mg/dL) 309 H 57 L 177 H (75-99) mg/dL Calcium (8.4-10.2) mg/dL C-Reactive Protein (<10.0) mg/L Albumin (3.5-5.0) g/dL Lipase (23-300) U/L Urine Appearance (Clear) Urine Protein (Negative) Urine Glucose (UA) (Negative) Urine Ketones (Negative) Urine Nitrite (Negative) Ur Leukocyte Esterase (Negative) Urine WBC (0-5) /hpf Ur Squamous Epith Cells (0-4) /hpf Amorphous Sediment (None) /hpf Urine Bacteria (None) /hpf Urine Mucus (None) /hpf Urine Yeast (Budding) (None) /hpf 03/13/20 03/13/20 03/13/20 Range/Units 06:19 10:12 10:12 WBC 15.4 H (3.8-10.6) k/uL RBC 3.66 L (3.80-5.40) m/uL Hgb 10.8 L (11.4-16.0) gm/dL Neutrophils # 13.4 H (1.3-7.7) k/uL Lymphocytes # 0.9 L (1.0-4.8) k/uL ESR 99 H (0-20) mm/hr Sodium (137-145) mmol/L Chloride (98-107) mmol/L BUN (7-17) mg/dL Creatinine (0.52-1.04) mg/dL Glucose (74-99) mg/dL POC Glucose (mg/dL) 106 H (75-99) mg/dL Calcium (8.4-10.2) mg/dL C-Reactive Protein (<10.0) mg/L Albumin (3.5-5.0) g/dL Lipase (23-300) U/L Urine Appearance (Clear) Urine Protein (Negative) Urine Glucose (UA) (Negative) Urine Ketones (Negative) Urine Nitrite (Negative) Ur Leukocyte Esterase (Negative) Urine WBC (0-5) /hpf Ur Squamous Epith Cells (0-4) /hpf Amorphous Sediment (None) /hpf Urine Bacteria (None) /hpf Urine Mucus (None) /hpf Urine Yeast (Budding) (None) /hpf 03/13/20 03/13/20 Range/Units 10:12 11:37 WBC (3.8-10.6) k/uL RBC (3.80-5.40) m/uL Hgb (11.4-16.0) gm/dL Neutrophils # (1.3-7.7) k/uL Lymphocytes # (1.0-4.8) k/uL ESR (0-20) mm/hr Sodium 133 L (137-145) mmol/L Chloride (98-107) mmol/L BUN (7-17) mg/dL Creatinine 0.20 L (0.52-1.04) mg/dL Glucose 109 H (74-99) mg/dL POC Glucose (mg/dL) 116 H (75-99) mg/dL Calcium 7.9 L (8.4-10.2) mg/dL C-Reactive Protein 142.4 H (<10.0) mg/L Albumin (3.5-5.0) g/dL Lipase (23-300) U/L Urine Appearance (Clear) Urine Protein (Negative) Urine Glucose (UA) (Negative) Urine Ketones (Negative) Urine Nitrite (Negative) Ur Leukocyte Esterase (Negative) Urine WBC (0-5) /hpf Ur Squamous Epith Cells (0-4) /hpf Amorphous Sediment (None) /hpf Urine Bacteria (None) /hpf Urine Mucus (None) /hpf Urine Yeast (Budding) (None) /hpf Microbiology - Last 24 Hours (Table) 03/12/20 16:29 Urine Culture - Preliminary Urine,Voided Chest x-ray: report reviewed (Chronic background emphysematous changes on chest x-ray) Assessment and Plan (1) Normocytic normochromic anemia Narrative/Plan: 59-year-old female with multiple medical comorbidities including fibromyalgia who presented due to weakness and fatigue. Recently hospitalized and treated for Clostridium difficile, she denies any change in bowel habits at this time. No signs or symptoms of GI bleeding including no hematemesis, hematochezia or melena. Bowel movements have been normal since her treatments. Last colonoscopy less than 5 years ago as per her recollection. She does report use of Advil PM but denies any history of anemia or peptic ulcer disease. Unclear etiology with patient's reticulocyte count inappropriately normal, may represent occult GI bleed including peptic ulcer disease, esophagitis, gastritis or AVM or other etiology such as a hematopoietic pathology. Current Visit: Yes Status: Acute Code(s): D64.9 - ANEMIA, UNSPECIFIED SNOMED Code(s): 10672338 Plan: Supportive care Continue to monitor hemoglobin and hematocrit and transfuse as needed Full liquid diet ordered, nothing by mouth after midnight Evaluation of anemia with laboratory workup ordered Plan for EGD to rule out peptic ulcer disease or other upper GI pathology of blood loss in the setting of NSAID use Further recommendations pending findings of workup Avoid NSAID use at this time Thank you for allowing us to participate in the care of the patient
[2020-03-14 06:35] LABS: C Reactive Protein 124.6 mg/L (<10.0)
[2020-03-14 06:46] LABS: Glucose,Whole Blood 130 mg/dL (75-99)
[2020-03-14] MEDS: INSULN ASP PRT/INSULIN ASPART 100 UNIT/ML 10 ML VIAL SQ SCH ×2 (07:23→16:43)
[2020-03-14] MEDS: LACTOBACILLUS ACIDOPH & BULGAR 1 EACH PACKET PO SCH ×2 (07:23→21:29)
[2020-03-14] MEDS: metFORMIN 500 MG TAB PO SCH ×2 (07:23→21:30)
[2020-03-14] MEDS: INSULIN ASPART (NovoLOG) 100 UNIT/ML VIAL SQ SCH ×4 (07:23→21:30)
[2020-03-14] MEDS: DULoxetine HCL 30 MG CAPSULE.DR PO SCH (08:03)
[2020-03-14] MEDS: PANTOPRAZOLE 40 MG/10 ML VIAL IV SCH (08:03)
[2020-03-14] MEDS: GABAPENTIN 100 MG CAP PO SCH ×2 (08:03→21:29)
[2020-03-14] MEDS: VARENICLINE 1 MG TAB PO SCH ×2 (08:03→21:29)
[2020-03-14] MEDS ORDERED: IV FLUID CONTINUATION 1,000 ML IV ONE (11:29)
[2020-03-14] MEDS ORDERED: PROPOFOL 10 MG/ML 20 ML VIAL IV ONE (11:31)
--- NOTE | 2020-03-14 11:53 | P.PCN ---
Date of Procedure: 03/14/20 Description of Procedure: BRIEF HISTORY: 59-year-old female with medical history significant for diabetes mellitus, fibromyalgia, hyperlipidemia, chronic lower back pain and hypertension who presented to the hospital for evaluation of weakness and fatigue. She reports worsening symptoms over the past few days prior to admission. Recently the patient was treated for infection with Clostridium difficile at [facility] and discharged home. She reports of bowel movements have remained normal. No further vomiting. The patient does report some nausea and reports increased somnolence with lower appetite prior to presentation. On questioning the patient denies any signs or symptoms of GI bleeding with no hematemesis, hematochezia or melena. She is unsure of any prior history of anemia and may have been on iron supplementation in the remote past. She does report using Advil PM fairly frequently. Last colonoscopy was less than 5 years ago per the patient's recollection. On presentation patient was found to have hemoglobin was 10.6 and found to be 10 8 and 10.8 on repeat blood draw. PROCEDURE PERFORMED: Esophagogastroduodenoscopy with biopsy. PREOPERATIVE DIAGNOSIS: Anemia. ESTIMATED BLOOD LOSS: Minimal. IV sedation per anesthesia. PROCEDURE: After informed consent was obtained, the patient was brought into the endoscopy unit. IV sedation was administered by Anesthesia under continuous monitoring. Initially the Olympus GIF-190 video endoscope was inserted into the mouth. Esophagus intubated without any difficulty. It was gradually advanced into the stomach and duodenum and carefully examined. The bulb and the second part of the duodenum appeared normal, with biopsies taken to rule out celiac sprue. The scope at this time was withdrawn to the stomach, adequately insufflated with air, and upon careful examination, mucosa of the antrum, body, cardia and the fundus appeared normal, except for some mild punctate erythema in the antrum and body suggestive of mild gastritis with biopsies taken. The scope was then withdrawn into the esophagus. The GE junction was located at 41 cm from the incisors. The esophagus appeared normal. There were no erosions or ulcerations seen and the patient tolerated the procedure well. IMPRESSION: 1. Mild gastritis antrum and body, biopsied. 2. Duodenal biopsies. RECOMMENDATIONS: The findings of this examination were discussed with the patient. Okay to resume diet. Okay to resume medications. Await pathology from biopsies. Okay for discharge when otherwise medically stable. Avoid NSAID use. Can follow-up as outpatient with plan for colonoscopy if anemia persists.
[2020-03-14 12:09] LABS: Glucose,Whole Blood 123 mg/dL (75-99)
[2020-03-14 12:22] LABS: Ferritin 227.1 ng/mL (10.0-291.0)
--- NOTE | 2020-03-14 12:46 | P.PN ---
Subjective Progress Note Date: 03/14/20 Principal diagnosis: UTI Ms. Falcon is a 59-year-old female with a past medical history of diabetes mellitus, fibromyalgia, hypertension, hyperlipidemia, chronic pain syndrome, chronic low back pain, a patient of Dr. Marcos in the outpatient setting, coming into the emergency department as the patient was having fatigue and generalized weakness for the past couple of days. Patient has a recent admission at [facility] for C. diff and then discharged home. She has been staying at her friend's place since then and recovering. But for the past couple of days she has been having low-grade temperatures and was also sweating. Patient denied having any chest pain or cough. She denies having any headaches, neck stiffness or blurring of vision. Patient denies having any abdominal pain, nausea or vomiting. She denies having any dysuria or hematuria. Patient denies having any swelling of her lower extremities. In the emergency department patient was found to have a low-grade fever 99.2, slightly tachycardic around 90, blood pressure 142/82, saturating at 95% on room air. Blood work has been reviewed and she was found to have white count of 15.4, hemoglobin of 10.8, sodium 133, progression 3.7, creatinine 14, creatinine 0.20, C-reactive protein 142.4. Her urine analysis is positive for 4+ glucose, 1+ ketones, positive for nitrites and trace leukocyte esterase along with a budding yeast and urine culture is pending. On 03/14/2020- patient is sitting up in the bed having Lunch. She just got back from the endoscopy. Patient states that her generalized weakness in breathing is much better compared to yesterday. She denies having any chest pain or palpitations. No cough or difficulty in breathing. No dysuria or hematuria. No back pain nausea vomiting or diarrhea. On reviewing the vital signs temperature 98.1, heart rate 86, blood pressure 184/84, saturating at 93% on room air. Labs reviewed from this morning showed downtrend of WBC count from 14-15-11.9. Hemoglobin has been stable around 10.8. Active Medications Hydrocodone Bitart/Acetaminophen (Yellow Jacket 10) 1 each PO Q6H PRN PRN Reason: Pain Last Admin: 03/14/20 11:03 Dose: 1 each Documented by: Duloxetine HCl (Cymbalta) 30 mg PO DAILY HORTENCIA Last Admin: 03/14/20 08:03 Dose: 30 mg Documented by: Gabapentin (Neurontin) 100 mg PO QAM [facility] Last Admin: 03/14/20 08:03 Dose: 100 mg Documented by: Gabapentin (Neurontin) 200 mg PO HS [facility] Last Admin: 03/13/20 21:07 Dose: 200 mg Documented by: Sodium Chloride (Saline 0.9%) 1,000 mls @ 90 mls/hr IV .Q11H7M [facility] Last Admin: 03/14/20 04:26 Dose: Not Given Documented by: Ceftriaxone Sodium 1 gm/ (Sodium Chloride) 50 mls @ 100 mls/hr IVPB Q24HR [facility] Last Admin: 03/14/20 08:03 Dose: 100 mls/hr Documented by: Insulin Aspart (Novolog Mix 70-30 Vial) 22 unit SQ BID-W/MEALS [facility] Last Admin: 03/14/20 07:23 Dose: Not Given Documented by: Insulin Aspart (Novolog) 0 unit SQ ACHS [facility]; Protocol Last Admin: 03/14/20 12:11 Dose: Not Given Documented by: Lactobacillus Acidoph/Bulgaricus (Lactinex) 1 each PO BID [facility] Last Admin: 03/14/20 07:23 Dose: Not Given Documented by: Metformin HCl (Glucophage) 1,000 mg PO Q12H [facility] Last Admin: 03/14/20 07:23 Dose: Not Given Documented by: Naloxone HCl (Narcan) 0.2 mg IV Q2M PRN PRN Reason: Opioid Reversal Ondansetron HCl (Zofran) 4 mg IVP Q8HR PRN PRN Reason: Nausea And Vomiting Pantoprazole Sodium (Protonix) 40 mg IV DAILY [facility] Last Admin: 03/14/20 08:03 Dose: 40 mg Documented by: Temazepam (Restoril) 7.5 mg PO HS PRN PRN Reason: Insomnia Last Admin: 03/13/20 21:09 Dose: 7.5 mg Documented by: Varenicline (Chantix) 1 mg PO BID [facility] Last Admin: 03/14/20 08:03 Dose: Not Given Documented by: Objective - Vital Signs Vital signs: Vital Signs Temp 98.1 F 03/14/20 12:09 Pulse 86 03/14/20 12:09 Resp 12 03/14/20 12:09 BP 184/84 03/14/20 12:09 Pulse Ox 93 L 03/14/20 12:09 Intake & Output 03/13/20 03/14/20 03/14/20 18:59 06:59 18:59 Intake Total 220 500 Balance 220 500 Intake: IV 500 Oral 120 Other 100 Other: Voiding Method Toilet Toilet Toilet # Voids 1 1 1 # Bowel Movements 1 - Exam GENERAL: not in any acute distress. Chronically ill appearing HEENT: Pupils are round and equally reacting to light. EOMI. mild scleral ic terus. No conjunctival pallor. Normocephalic, atraumatic. No pharyngeal erythema. No thyromegaly. CARDIOVASCULAR: S1 and S2 heard No additional sounds. PULMONARY: Bilateral breath sounds are positive. No wheeze or crackles. ABDOMEN: Soft, nontender, nondistended, normoactive bowel sounds. No palpable organomegaly. MUSCULOSKELETAL: No joint swelling or deformity. EXTREMITIES: No cyanosis, clubbing, or pedal edema. NEUROLOGICAL: Alert awake oriented 3 ,Gross neurological examination did not reveal any focal deficits. PSYCHIATRIC: Appropriate mood and affect - Labs CBC & Chem 7: 03/14/20 05:45 03/13/20 10:12 Labs: Abnormal Lab Results - Last 24 Hours (Table) 03/13/20 03/13/20 03/13/20 Range/Units 10:12 16:53 20:10 WBC (3.8-10.6) k/uL RBC (3.80-5.40) m/uL Hgb (11.4-16.0) gm/dL Hct (34.0-46.0) % Plt Count (150-450) k/uL Neutrophils # (1.3-7.7) k/uL POC Glucose (mg/dL) 153 H 164 H (75-99) mg/dL Hemoglobin A1c 9.8 H (4.0-6.0) % C-Reactive Protein (<10.0) mg/L 03/14/20 03/14/20 03/14/20 Range/Units 05:45 05:45 06:45 WBC 11.9 H (3.8-10.6) k/uL RBC 3.57 L (3.80-5.40) m/uL Hgb 10.8 L (11.4-16.0) gm/dL Hct 33.5 L (34.0-46.0) % Plt Count 456 H (150-450) k/uL Neutrophils # 9.8 H (1.3-7.7) k/uL POC Glucose (mg/dL) 130 H (75-99) mg/dL Hemoglobin A1c (4.0-6.0) % C-Reactive Protein 124.6 H (<10.0) mg/L 03/14/20 Range/Units 12:07 WBC (3.8-10.6) k/uL RBC (3.80-5.40) m/uL Hgb (11.4-16.0) gm/dL Hct (34.0-46.0) % Plt Count (150-450) k/uL Neutrophils # (1.3-7.7) k/uL POC Glucose (mg/dL) 123 H (75-99) mg/dL Hemoglobin A1c (4.0-6.0) % C-Reactive Protein (<10.0) mg/L Microbiology - Last 24 Hours (Table) 03/12/20 16:29 Urine Culture - Preliminary Urine,Voided Gram Neg Bacilli Assessment and Plan Assessment: ASSESSMENT Possible sepsis -source could be UTI Normocytic anemia Elevated CRP levels Recent C. diff infection Type 2 diabetes mellitus poorly controlled Fibromyalgia Hypertension Hyperlipidemia Chronic pain syndrome degenerative disc disease Former smoker History of depression PLAN: Patient's urine culture is positive for gram-negative bacilli, she has been started on ceftriaxone. Patient had an EGD done today by Dr. Melton , showing mild gastritis in the antrum and body, biopsies were sent. She was advised to avoid NSAID. Continue with current medication regimen. Further recommendations to follow depending on the progress of the patient.
[2020-03-14 13:06] LABS: % Iron Saturation 7.81 (12.00-45.00)
--- NOTE | 2020-03-14 15:30 | PN ---
PROGRESS NOTE DATE OF SERVICE: 03/14/2020 REASON FOR FOLLOWUP: Urinary tract infection. INTERVAL HISTORY: Patient is currently afebrile, has been breathing comfortably. Denies having any chest pain. No shortness of breath or cough. No abdominal pain. PHYSICAL EXAMINATION: Blood pressure 118/84 with a pulse of 86, temperature 98.1. She is 93%. General description is a middle-aged female, lying in bed in no distress. RESPIRATORY SYSTEM: Unlabored breathing, clear to auscultation anteriorly. HEART: S1, S2. Regular rate and rhythm. ABDOMEN: Soft. No tenderness. LABS: White count 11.9, urine showing a Gram-negative. DIAGNOSTIC IMPRESSION AND PLAN: Patient admitted to the hospital with weakness which is multifactorial with a possible component of urinary tract infection, possible enteric gram-negative. Patient is covered with Rocephin. White count showing a downward trend to continue on a short course and monitor clinical course closely. MMODL / IJN: [id number] /
[2020-03-14 15:39] VITALS: BMI 19.3
[2020-03-14 16:42] LABS: Glucose,Whole Blood 150 mg/dL (75-99)
[2020-03-14 21:00] LABS: Glucose,Whole Blood 158 mg/dL (75-99)
[2020-03-14] MEDS: TEMAZEPAM 7.5 MG CAP PO PRN (22:42)
[2020-03-15] MEDS: HYDROcodone/APAP 10-325MG 1 EACH TAB PO PRN ×2 (05:59→12:11)
[2020-03-15 06:06] LABS: Basophils # (A) 0.1 k/uL (0-0.2); Basophils % (A) 1 %; Eosinophils # (A) 0.1 k/uL (0-0.7); Eosinophils % (A) 1 %; HCT 34.9 % (34.0-46.0); HGB 11.1 gm/dL (11.4-16.0); Hypochromasia Slight; Lymphocytes # (A) 1.4 k/uL (1.0-4.8); Lymphocytes % (A) 15 %; MCH 29.8 pg (25.0-35.0); MCHC 31.8 g/dL (31.0-37.0); MCV 93.6 fL (80.0-100.0); Mean Platelet Volume 7.2; Monocytes # (A) 0.6 k/uL (0-1.0); Monocytes % (A) 6 %; Neutrophils # (A) 6.9 k/uL (1.3-7.7); Neutrophils % (A) 76 %; Platelet Count 516 k/uL (150-450); RBC 3.73 m/uL (3.80-5.40); RDW 13.8 % (11.5-15.5); WBC 9.1 k/uL (3.8-10.6)
[2020-03-15 06:50] LABS: Glucose,Whole Blood 198 mg/dL (75-99)
[2020-03-15] MEDS: SODIUM CHLORIDE 0.9% 1,000 ML IV SCH ×2 (07:25→11:01)
[2020-03-15] MEDS: INSULN ASP PRT/INSULIN ASPART 100 UNIT/ML 10 ML VIAL SQ SCH (07:26)
[2020-03-15] MEDS: INSULIN ASPART (NovoLOG) 100 UNIT/ML VIAL SQ SCH ×2 (07:30→11:32)
[2020-03-15] MEDS: metFORMIN 500 MG TAB PO SCH (07:31)
[2020-03-15] MEDS: LACTOBACILLUS ACIDOPH & BULGAR 1 EACH PACKET PO SCH (07:31)
[2020-03-15] MEDS: GABAPENTIN 100 MG CAP PO SCH (07:31)
[2020-03-15] MEDS: DULoxetine HCL 30 MG CAPSULE.DR PO SCH (07:31)
[2020-03-15] MEDS: PANTOPRAZOLE 40 MG/10 ML VIAL IV SCH (07:31)
[2020-03-15] MEDS: VARENICLINE 1 MG TAB PO SCH (07:31)
[2020-03-15 07:45] VITALS: BP 162/80; PULSE 83; RESP 14; TEMP 97.8
[2020-03-15 11:29] LABS: Glucose,Whole Blood 164 mg/dL (75-99)
--- NOTE | 2020-03-15 14:49 | PN ---
PROGRESS NOTE DATE OF SERVICE: 03/15/2020 REASON FOR FOLLOWUP: Enterobacter urinary tract infection. INTERVAL HISTORY: The patient is currently afebrile. The patient is breathing comfortably. The patient denies having any chest pain or shortness of breath or cough. No nausea, no vomiting, no abdominal pain or diarrhea. PHYSICAL EXAMINATION: Blood pressure 160/80 with a pulse of 83, temperature is 97.8, she is 95% on room air. General description is a middle-aged female, lying in bed in no distress. RESPIRATORY SYSTEM: Unlabored breathing, clear to auscultation anteriorly. HEART: S1, S2. Regular rate and rhythm. ABDOMEN: Soft, no tenderness. LABS: Hemoglobin 11.1, white count 9.1, urine finalized with Enterobacter sensitive to Rocephin and Cipro. DIAGNOSTIC IMPRESSION AND PLAN: Patient admitted to the hospital with symptomatic urinary tract infection. This patient did have an elevated white count and a positive UA that has responded to the Rocephin. Plan to finish therapy with a short course of oral Ceftin. She is encouraged to increase her probiotic and yogurt intake. Continue supportive care. MMODL / IJN: [id number] /
--- NOTE | 2020-03-17 07:38 | CDI ---
Documentation Clarification Form Date: 03/17/20 From: Mayra Martinez Phone: If you have a question about this query, please contact Rae Ramos, Lie Detector Operator at [phone] between 8am and 5pm. Admit Date: 03/12/20 Discharge Date:03/15/20 Patient Name: Roula Falcon Visit Number: [id number] ATTENTION: The Clinical Documentation Specialists (CDI) and [facility] Coding Staff appreciate your assistance in clarifying documentation. Please respond to the clarification below the line at the bottom and electronically sign. The CDI & [facility] Coding staff will review the response and follow-up if needed. Please note: Queries are made part of the Legal Health Record. If you have any questions, please contact the author of this message via ITS. Dear Dr. Arreguin The diagnosis possible sepsis was documented in the H&P and your 03/14 progress note, but is not noted in subsequent documentation. History/Risk Factors: UTI Clinical Indicators: elevated WBC, fever WBC: 14.2 on 03/12, 15.4 on 03/13 Lactic acid: Not tested Blood cultures: Not drawn Vital signs on admission: T. 98.9, 99.2 a couple hours after admission, P. 95, R. 16, Bp 137/85 Treatment: ID Consult: Leukocytosis, UTI Antibiotics: IV Rocephin IV Bolus: No fluid bolus given Please clarify if the sepsis was Present/active this admission Treated and resolved this admission Ruled out Other, please specify Clinically unable to determine Sepsis - Present/active this admission MTDD
--- NOTE | 2020-03-17 07:49 | CDI ---
Documentation Clarification Form Date: 03/17/20 From: Mayra Martinez Phone: If you have a question about this query, please contact Rae Ramos, Couturiere at [phone] between 8am and 5pm. Admit Date: 03/12/20 Discharge Date:03/15/20 Patient Name: Roula Falcon Visit Number: [id number] ATTENTION: The Clinical Documentation Specialists (CDI) and [facility] Coding Staff appreciate your assistance in clarifying documentation. Please respond to the clarification below the line at the bottom and electronically sign. The CDI & [facility] Coding staff will review the response and follow-up if needed. Please note: Queries are made part of the Legal Health Record. If you have any questions, please contact the author of this message via ITS. Dear Dr. Arreguin GI bleed is documented in the ED note. Normocytic anemia, unclear etiology with patient's reticulocyte count inappropriately normal, may represent occult GI bleed is documented in Dr. Melton's consult note. Patient history/risk factors: Gastritis, normocytic anemia, history of c-diff. Clinical Indicators: Decreased hgb, patient denies any hematemesis, hematochezia or melena EGD/colonoscopy performed and findings: Mild gastritis antrum and body. Labs: Hgb 10.6, Hct 34.0 Vital Signs: T. 98.9, P. 95, R. 16, BP 137/85 Treatment: Medication: IV Protonix In your professional opinion, can you please clarify the underlying cause of GI bleed if known? GI Bleed Ruled Out Gastritis Other, please specify Unable to determine GI Bleed Ruled Out MTDD
--- NOTE | 2020-03-17 07:58 | CDI ---
Documentation Clarification Form Date: 03/17/20 From: Mayra Martinez Phone: If you have a question about this query, please contact Rae Ramos, Lotteries Agent at [phone] between 8am and 5pm. Admit Date: 03/12/20 Discharge Date: 03/15/20 Patient Name: Roula Falcon Visit Number: [id number] ATTENTION: The Clinical Documentation Specialists (CDI) and [facility] Coding Staff appreciate your assistance in clarifying documentation. Please respond to the clarification below the line at the bottom and electronically sign. The CDI & [facility] Coding staff will review the response and follow-up if needed. Please note: Queries are made part of the Legal Health Record. If you have any questions, please contact the author of this message via ITS. Dear Dr. Arreguin The patient has diabetes, as indicated on progress note 03/14 and in the H&P. History/Risk Factors: Diabetes, UTI, gastritis Clinical Indicators: Elevated glucose Glucose: 373 on admission, 309 later on 03/12, 57 on 03/13, 106 - 198 on 03/13 - 03/15 Treatment: Insulin Aspart 22 unit BID, Insulin Aspart sliding scale, Glucophage 1000 mg Q 12 In order to capture the severity of Illness and necessary documentation specificity, please clarify the poorly controlled DM: Hypoglycemia with or without coma Hyperglycemia Other (please specify): Unable to determine Poorly controlled DM: Hyperglycemia MTDD
--- NOTE | 2020-03-31 00:34 | P.DS ---
Providers Date of admission: 03/14/20 16:08 Expected date of discharge: 03/15/20 Attending physician: John Allen Consults: 03/13/20 12:12 Consult Physician Routine Consulting Provider: Chavez Jung Consult Reason/Comments: uti Do you want consulting provider notified?: Yes Primary care physician: Vince Marcos [facility] Course: HPI - Ms. Falcon is a 59-year-old female with a past medical history of diabetes mellitus, fibromyalgia, hypertension, hyperlipidemia, chronic pain syndrome, chronic low back pain, a patient of Dr. Marcos in the outpatient setting, coming into the emergency department as the patient was having fatigue and generalized weakness for the past couple of days. Patient has a recent admission at [facility] for C. diff and then discharged home. She has been staying at her friend's place since then and recovering. But for the past couple of days she has been having low-grade temperatures and was also sweating. Patient denied having any chest pain or cough. She denies having any headaches, neck stiffness or blurring of vision. Patient denies having any abdominal pain, nausea or vomiting. She denies having any dysuria or hematuria. Patient denies having any swelling of her lower extremities. In the emergency department patient was found to have a low-grade fever 99.2, slightly tachycardic around 90, blood pressure 142/82, saturating at 95% on room air. Blood work has been reviewed and she was found to have white count of 15.4, hemoglobin of 10.8, sodium 133, progression 3.7, creatinine 14, creatinine 0.20, C-reactive protein 142.4. Her urine analysis is positive for 4+ glucose, 1+ ketones, positive for nitrites and trace leukocyte esterase along with a budding yeast and urine culture is pending. Hospital course - Her urine culture was positive for Enterobacter cloache and she was on Ceftriaxone during the hospital stay . As she was having epigastric pain and recent use of NSAIDS and drp in , GI was consulted. Dr. Melton did EGD on her and it showed mild gastritis and she was advised to stop using NSAIDS an to continue PPI. ID Dr. Jung recommended Cefitin PO for her UTI. Patient felt that she is back to her base line and so discharged home in a fair condition. DISCHARGE DIAGNOSIS Sepsis secondary to UTI Normocytic anemia Elevated CRP levels Recent C. diff infection Type 2 diabetes mellitus poorly controlled Fibromyalgia Hypertension Hyperlipidemia Chronic pain syndrome degenerative disc disease Former smoker History of depression She is advised to follow up with her PCP in 2-3 days. MOre than 35 mins spent for the discharge of the patient, with more than 50 % time for coordination and counselling . Patient Condition at Discharge: Fair Plan - Discharge Summary Discharge Rx Participant: Yes New Discharge Prescriptions: New Cefuroxime Axetil [Ceftin] 500 mg PO BID 3 Days #6 tab Lactobacillus Acidoph & Bulgar [Lactinex] 1 each PO BID 30 Days #60 packet Continue Acetaminophen [Tylenol] 1,000 mg PO DAILY PRN PRN Reason: Fever And/ Or Pain DULoxetine HCL [Cymbalta] 30 mg PO DAILY Gabapentin [Neurontin] 200 mg PO HS Gabapentin [Neurontin] 100 mg PO QAM HYDROcodone/APAP 10-325MG [Napoleon 10-325] 1 tab PO Q6H PRN PRN Reason: Pain Insulin NPH Hum/Reg Insulin Hm [Novolin 70-30 Flexpen] 22 units SQ BID- W/MEALS metFORMIN HCL [Glucophage] 1,000 mg PO Q12H Temazepam [Restoril] 7.5 mg PO HS PRN PRN Reason: Insomnia Varenicline [Chantix Continuing Pack] 1 mg PO BID Discontinued Ibuprofen/Diphenhydramine HCl [Advil Pm Liqui-Gels] 2 cap PO HS Discharge Medication List Acetaminophen [Tylenol] 1,000 mg PO DAILY PRN 03/12/20 [History] DULoxetine HCL [Cymbalta] 30 mg PO DAILY 03/12/20 [History] Gabapentin [Neurontin] 100 mg PO QAM 03/12/20 [History] Gabapentin [Neurontin] 200 mg PO HS 03/12/20 [History] HYDROcodone/APAP 10-325MG [Napoleon 10-325] 1 tab PO Q6H PRN 03/12/20 [History] Insulin NPH Hum/Reg Insulin Hm [Novolin 70-30 Flexpen] 22 units SQ BID-W/MEALS 03/12/20 [History] Temazepam [Restoril] 7.5 mg PO HS PRN 03/12/20 [History] Varenicline [Chantix Continuing Pack] 1 mg PO BID 03/12/20 [History] metFORMIN HCL [Glucophage] 1,000 mg PO Q12H 03/12/20 [History] Cefuroxime Axetil [Ceftin] 500 mg PO BID 3 Days #6 tab 03/15/20 [Rx] Lactobacillus Acidoph & Bulgar [Lactinex] 1 each PO BID 30 Days #60 packet 03/15/20 [Rx] Follow up Appointment(s)/Referral(s): Vince Marcos III, MD [Primary Care Provider] - 1-2 days [facility], [NON-STAFF] - 1-2 Days Patient Instructions/Handouts: Urinary Tract Infection in Women (DC) Discharge Disposition: HOME WITH HOME HEALTH SERVICES
== END 2020-03-15 16:40 | disposition home health service (06) ==
LOC: EC 15:39 → 1SOBS 17:42 → OBSVTOIN 03-14 16:08 → INTOOBSV 03-14 16:08 → UNDODISIN 03-15 16:40
PROVIDERS: ADMIT Hospitalist; ATTEND Hospitalist
DX: N39.0 Urinary tract infection, site not specified (principal); A41.9 Sepsis, unspecified organism; B96.89 Other specified bacterial agents as the cause of diseases classified elsewhere; D64.9 Anemia, unspecified; K29.50 Unspecified chronic gastritis without bleeding; R79.82 Elevated C-reactive protein (CRP); Z86.19 Personal history of other infectious and parasitic diseases; E11.65 Type 2 diabetes mellitus with hyperglycemia; M79.7 Fibromyalgia; I10 Essential (primary) hypertension; E78.5 Hyperlipidemia, unspecified; G89.4 Chronic pain syndrome; M51.9 Unspecified thoracic, thoracolumbar and lumbosacral intervertebral disc disorder; Z87.891 Personal history of nicotine dependence; F32.9 Major depressive disorder, single episode, unspecified; M54.5 Low back pain; G47.00 Insomnia, unspecified; Z79.1 Long term (current) use of non-steroidal anti-inflammatories (NSAID); Z79.899 Other long term (current) drug therapy; Z79.4 Long term (current) use of insulin; Z88.8 Allergy status to other drugs, medicaments and biological substances; Z87.39 Personal history of other diseases of the musculoskeletal system and connective tissue; Z87.42 Personal history of other diseases of the female genital tract; Z86.69 Personal history of other diseases of the nervous system and sense organs; Z87.440 Personal history of urinary (tract) infections; Z87.19 Personal history of other diseases of the digestive system; Z98.890 Other specified postprocedural states; Z98.51 Tubal ligation status; Z97.2 Presence of dental prosthetic device (complete) (partial); Z80.49 Family history of malignant neoplasm of other genital organs; Z82.5 Family history of asthma and other chronic lower respiratory diseases; Z81.1 Family history of alcohol abuse and dependence
CPT/HCPCS: 43239; 96361; 96365; 96376; 96375; 99285; 36415; 93005; 97161; 97165; 88305; 80053; 80048; 85652; 82330; 82607; 82728; 82746; 83540; 83550; 83690; 83735; 84443; 85025 ×4; 85045; 86140 ×2; 81001; 87086; 87077; 87186; 83036; 71046; G0378 ×4; J0696 ×3; J2704; C9113 ×4; 96374

== ENCOUNTER 2020-04-07 16:09 | Inpatient (IN) | payer MEDICARE ==
[2020-04-07] MEDS ORDERED: SODIUM CHLORIDE 0.9% 1,000 ML IV STA (16:25)
[2020-04-07] MEDS ORDERED: MORPHINE SULFATE 4 MG/ML SYRINGE IV STA (16:25)
--- NOTE | 2020-04-07 16:27 | ED ---
General Adult HPI - General Chief complaint: Abdominal Pain Stated complaint: gallbladder problems Time Seen by Provider: 04/07/20 16:15 Source: patient Mode of arrival: wheelchair Limitations: no limitations - History of Present Illness Initial comments: Dictation was produced using [employer] dictation software. please excuse any grammatical, word or spelling errors. This patient was cared for during a federal and state declared state of emergenc y secondary to Covid 19 Chief Complaint: 59-year-old female past medical history of diabetes, fibromyalgia, biliary sludge presents with right upper quadrant abdominal pain 3 days. History of Present Illness: Patient is a 59-year-old female she has multiple comorbidities. She states that over the last 3 days she's been having persistent right upper quadrant pain. She reports that her pain is worse with movement. She has had poor appetite. No diarrhea. She denies nausea but no v omiting. Denies any fevers. Patient states she had been told she had biliary sludge in the past. She has no history of abdominal surgery. Denies any urinary symptoms. She has had poor appetite over the last 3 days and hasn't really been eating or drinking. She does not know if her symptoms are worse with eating or drinking. She was reports that the pain is in her right upper quadrant wraps around to the back. The ROS documented in this emergency department record has been reviewed and c onfirmed by me. Those systems with pertinent positive or negative responses have been documented in the HPI. All other systems are other negative and/or noncontributory. PHYSICAL EXAM: General Impression: Alert and oriented x3, not in acute distress HEENT: Normocephalic atraumatic, extra-ocular movements intact, pupils equal and reactive to light bilaterally, mucous membranes moist. Cardiovascular: Heart regular rate and rhythm Chest: Able to complete full sentences, no retractions, no tachypnea Abdomen: abdomen soft, non-distended, no organomegaly, positive Kirk sign Musculoskeletal: Pulses present and equal in all extremities, no peripheral edema, positive right-sided CVA tenderness Motor: no focal deficits noted Neurological: CN II-XII grossly intact, no focal motor or sensory deficits noted Skin: Intact with no visualized rashes Psych: Normal affect and mood ED course: 59 Year old female presents with right upper quadrant pain. Signs upon arrival are within acceptable limits. Laboratory evaluation obtained. Leukocytosis of 18.3. Hemoglobin 10.7. Metabolic panel shows findings within acceptable limits. Glucose 469. Alk phos 148. Lipase is 19. Abdominal x-ray shows right lower lobe airspace consolidation that looks increased compared to x-ray of 03/13/2020. Abdominal ultrasound was obtained showing gallstones and debris in the gallbladder. There are calcifications on the pancreas likely related to chronic pancreatitis. There is a small amount of pericholecystic fluid. Considering patient's clinical presentation there is concern of acute cholecystitis. Patient started on Zosyn. Discussed patient case with Dr. Burns who is willing to accept patient's care with likelihood of cholecystectomy tomorrow. EKG interpretation: Ventricular rate 108, sinus tachycardia,. Interval 140, QRS 72, QTC 452. No FL prolongation, no QTC prolongation, no ST or T-wave changes noted. EKG compared to 03/12/2020 showing no changes. Overall, this EKG is unremarkable - Related Data Home Medications Medication Instructions Recorded Confirmed Acetaminophen [Tylenol] 1,000 mg PO DAILY PRN 03/12/20 04/07/20 DULoxetine HCL [Cymbalta] 30 mg PO DAILY 03/12/20 04/07/20 Gabapentin [Neurontin] 100 mg PO QAM 03/12/20 04/07/20 Gabapentin [Neurontin] 200 mg PO HS 03/12/20 04/07/20 HYDROcodone/APAP 10-325MG [[place] 1 tab PO Q6H PRN 03/12/20 04/07/20 10-325] Insulin NPH Hum/Reg Insulin Hm 22 units SQ BID-W/MEALS 03/12/20 04/07/20 [Novolin 70-30 Flexpen] Temazepam [Restoril] 7.5 mg PO HS PRN 03/12/20 04/07/20 metFORMIN HCL [Glucophage] 1,000 mg PO Q12H 03/12/20 04/07/20 Allergies Allergy/AdvReac Type Severity Reaction Status Date / Time pregabalin [From Lyrica] AdvReac Swelling Verified 04/07/20 16:57 trazodone AdvReac Unknown Verified 04/07/20 16:57 Review of Systems ROS Statement: Those systems with pertinent positive or pertinent negative responses have been documented in the HPI. ROS Other: All systems not noted in ROS Statement are negative. Past Medical History Past Medical History: Diabetes Mellitus, Fibromyalgia, Hyperlipidemia Additional Past Medical History / Comment(s): myalgia, myositis, sciatica, chronic pain syndrome, vaginitis, otalgia, fatigue, malaise, UTI, microscopic hematuria, tachycardia, insomnia, lumbago, degenerative disc, colitis History of Any Multi-Drug Resistant Organisms: C-DIFF Date of last positivie culture/infection: February 15 2020 MDRO Source:: stool Past Surgical History: Orthopedic Surgery, Tubal Ligation Additional Past Surgical History / Comment(s): left wrist Past Anesthesia/Blood Transfusion Reactions: No Reported Reaction Past Psychological History: Depression Smoking Status: Former smoker Past Alcohol Use History: None Reported Past Drug Use History: None Reported - Past Family History Mother Family Medical History: Cancer, COPD Additional Family Medical History / Comment(s): cervical cancer Father Additional Family Medical History / Comment(s): etoh abuse General Exam Limitations: no limitations Course Vital Signs 04/07/20 04/07/20 16:11 17:55 Temperature 98.1 F 98.8 F Pulse Rate 100 112 H Respiratory 20 18 Rate Blood Pressure 103/67 132/91 O2 Sat by Pulse 99 95 Oximetry Medical Decision Making - Lab Data Result diagrams: 04/07/20 16:32 04/07/20 16:32 Lab Results 04/07/20 04/07/20 Range/Units 16:32 16:32 WBC 18.3 H (3.8-10.6) k/uL RBC 3.67 L (3.80-5.40) m/uL Hgb 10.7 L (11.4-16.0) gm/dL Hct 35.5 (34.0-46.0) % MCV 96.9 (80.0-100.0) fL MCH 29.2 (25.0-35.0) pg MCHC 30.2 L (31.0-37.0) g/dL RDW 13.8 (11.5-15.5) % Plt Count 459 H (150-450) k/uL Neutrophils % 88 % Lymphocytes % 6 % Monocytes % 5 % Eosinophils % 0 % Basophils % 0 % Neutrophils # 16.1 H (1.3-7.7) k/uL Lymphocytes # 1.1 (1.0-4.8) k/uL Monocytes # 0.9 (0-1.0) k/uL Eosinophils # 0.1 (0-0.7) k/uL Basophils # 0.0 (0-0.2) k/uL Hypochromasia Marked Sodium 134 L (137-145) mmol/L Potassium 4.8 (3.5-5.1) mmol/L Chloride 98 (98-107) mmol/L Carbon Dioxide 26 (22-30) mmol/L Anion Gap 10 mmol/L BUN 44 H (7-17) mg/dL Creatinine 0.40 L (0.52-1.04) mg/dL Est GFR (CKD-EPI)AfAm >90 (>60 ml/min/1.73 sqM) Est GFR (CKD-EPI)NonAf >90 (>60 ml/min/1.73 sqM) Glucose 469 H (74-99) mg/dL Calcium 8.8 (8.4-10.2) mg/dL Total Bilirubin 0.5 (0.2-1.3) mg/dL AST 17 (14-36) U/L ALT 8 (4-34) U/L Alkaline Phosphatase 148 H (38-126) U/L Total Protein 6.3 (6.3-8.2) g/dL Albumin 2.8 L (3.5-5.0) g/dL Lipase 19 L (23-300) U/L Disposition Clinical Impression: Abdominal pain Disposition: ADMITTED IP TO THIS [facility] Condition: Fair Referrals: Vince Marcos III, MD [Primary Care Provider] - 1-2 days Decision Time: 17:59
[2020-04-07 16:52] LABS: Basophils % (A) 0 %; Eosinophils # (A) 0.1 k/uL (0-0.7); Eosinophils % (A) 0 %; HCT 35.5 % (34.0-46.0); HGB 10.7 gm/dL (11.4-16.0); Hypochromasia Marked; Lymphocytes # (A) 1.1 k/uL (1.0-4.8); Lymphocytes % (A) 6 %; MCH 29.2 pg (25.0-35.0); MCHC 30.2 g/dL (31.0-37.0); MCV 96.9 fL (80.0-100.0); Mean Platelet Volume 7.2; Monocytes # (A) 0.9 k/uL (0-1.0); Monocytes % (A) 5 %; Neutrophils # (A) 16.1 k/uL (1.3-7.7); Neutrophils % (A) 88 %; Platelet Count 459 k/uL (150-450); RBC 3.67 m/uL (3.80-5.40); RDW 13.8 % (11.5-15.5); WBC 18.3 k/uL (3.8-10.6)
--- NOTE | 2020-04-07 16:53 | XR ---
EXAMINATION TYPE: XR abdomen 1V DATE OF EXAM: 04/07/2020 COMPARISON: 07/31/2011 HISTORY: Abdominal pain TECHNIQUE: 2 views upright FINDINGS: There is no sign of intestinal obstruction or pneumoperitoneum. There is blunting right cos tophrenic angle with airspace consolidation right lower lobe. There are no pathologic calcifications over the kidneys. There is no evidence of abdominal mass. IMPRESSION: There is right lower lobe airspace consolidation and right pleural effusion that is new c ompared to old exam. No acute abnormality within the abdomen and pelvis. Infiltrate and pleural fluid at the right lung bases probably increased compared to chest x-ray of 03/13/2020.
[2020-04-07 17:12] LABS: ALT 8 U/L (4-34); AST 17 U/L (14-36); African American GFR (CKD) >90 (>60 ml/min/1.73 sqM); Albumin 2.8 g/dL (3.5-5.0); Alkaline Phosphatase 148 U/L (38-126); Anion Gap 10 mmol/L; Blood Urea Nitrogen 44 mg/dL (7-17); Calcium 8.8 mg/dL (8.4-10.2); Carbon Dioxide 26 mmol/L (22-30); Chloride 98 mmol/L (98-107); Glucose 469 mg/dL (74-99); Non-African American GFR(CKD) >90 (>60 ml/min/1.73 sqM); Potassium 4.8 mmol/L (3.5-5.1); Sodium 134 mmol/L (137-145); Total Bilirubin 0.5 mg/dL (0.2-1.3); Total Protein 6.3 g/dL (6.3-8.2)
--- NOTE | 2020-04-07 17:42 | US ---
EXAMINATION TYPE: US abdomen limited DATE OF EXAM: 04/07/2020 COMPARISON: NONE CLINICAL HISTORY: ruq pain. EXAM MEASUREMENTS: Liver Length: 17.3 cm Gallbladder Wall: 0.2 cm CBD: 0.6 cm Right Kidney: 13.8 x 5.2 x 5.2 cm Pancreas: Possible calcification in pancreatic head, tail obscured by bowel gas Liver: nodular appearance, upper limits of normal in size Gallbladder: free fluid adjacent to gallbladder, dependant debris Evidence for sonographic Kirk's sign: no CBD: wnl Right Kidney: prominent renal pelvis, measures large *Pleural effusion. IMPRESSION: There is gallstones and debris in the gallbladder. Large gallbladder measuring 3 cm in diameter. No d ilated ducts. Possible pancreatic calcifications could relate to chronic pancreatitis. No pancreatic mass. There is small amount of pericholecystic fluid. Acute and chronic cholecystitis should be consi dered.
[2020-04-07] MEDS ORDERED: PIPERACILLIN-TAZOBACTAM 3.375 GM in SODIUM CHLORIDE 0.9% 100 ML IVPB STA (17:45)
[2020-04-07] MEDS ORDERED: ONDANSETRON 4 MG/2 ML VIAL IVP PRN (17:59)
[2020-04-07] MEDS ORDERED: NALOXONE 0.4 MG/ML 1 ML VIAL IV PRN (17:59)
[2020-04-07] MEDS ORDERED: ACETAMINOPHEN TAB 325 MG TAB PO PRN (17:59)
[2020-04-07] MEDS ORDERED: INSULIN REGULAR 100 UNIT/ML VIAL IV ONE (18:16)
[2020-04-07] MEDS: SODIUM CHLORIDE 0.9% 1,000 ML IV SCH (18:19)
[2020-04-07 18:22] LABS: Glucose,Whole Blood 424 mg/dL (75-99)
[2020-04-07] MEDS: MORPHINE SULFATE 4 MG/ML SYRINGE IV PRN ×2 (18:27→23:18)
[2020-04-07 19:27] LABS: Appearance,Urine Clear (Clear); Bilirubin,Urine Negative (Negative); Blood,Urine Negative (Negative); Color,Urine Yellow; Glucose,Urine (UA) 4+ (Negative); Ketones,Urine Negative (Negative); Leukocyte Esterase,Urine Negative (Negative); Nitrite,Urine Negative (Negative); Protein,Urine Negative (Negative); Specific Gravity,Urine 1.024 (1.001-1.035); Urobilinogen,Urine <2.0 mg/dL (<2.0)
[2020-04-07] MEDS: GABAPENTIN 100 MG CAP PO SCH (20:12)
[2020-04-07] MEDS: metFORMIN 500 MG TAB PO SCH (20:12)
[2020-04-07] MEDS: TEMAZEPAM 7.5 MG CAP PO PRN (20:12)
[2020-04-07] MEDS: HYDROcodone/APAP 10-325MG 1 EACH TAB PO PRN (20:12)
[2020-04-08] MEDS: HYDROcodone/APAP 10-325MG 1 EACH TAB PO PRN ×2 (02:15→22:53)
[2020-04-08] MEDS: MORPHINE SULFATE 4 MG/ML SYRINGE IV PRN ×2 (03:39→07:19)
[2020-04-08] MEDS: SODIUM CHLORIDE 0.9% 1,000 ML IV SCH ×2 (05:28→17:19)
[2020-04-08 05:55] LABS: Glucose,Whole Blood 285 mg/dL (75-99)
[2020-04-08 06:47] LABS: Glucose,Whole Blood 275 mg/dL (75-99)
[2020-04-08] MEDS: GABAPENTIN 100 MG CAP PO SCH ×2 (07:02→21:02)
[2020-04-08] MEDS: DULoxetine HCL 30 MG CAPSULE.DR PO SCH (07:02)
[2020-04-08] MEDS: metFORMIN 500 MG TAB PO SCH ×2 (07:03→17:19)
[2020-04-08] MEDS: INSULIN ASPART (NovoLOG) 100 UNIT/ML VIAL SQ SCH ×5 (07:21→21:02)
[2020-04-08] MEDS: INSULN ASP PRT/INSULIN ASPART 100 UNIT/ML 10 ML VIAL SQ SCH ×2 (07:23→17:16)
[2020-04-08] MEDS ORDERED: IV FLUID CONTINUATION 250 ML IV ONE (08:29)
[2020-04-08] MEDS ORDERED: HEPARIN SODIUM,PORCINE 5,000 UNIT/ML 1 ML VIAL SQ ONE (08:35)
--- NOTE | 2020-04-08 08:35 | P.GSHP ---
History of Present Illness H&P Date: 04/08/20 Chief Complaint: Right upper quadrant pain 59-year-old female with a history of known gallbladder disease came to the hospital complaining of 3 days worth of increasing pain right upper quadrant. Pain does radiate to the right side of her back. Some nausea. Patient is polo betic on insulin. Blood sugars have been elevated. White blood cell count was high at 18. Low-grade fever 99.8. Pain persists this morning. Ultrasound showed a distended gallbladder with inflammation and fluid. Underwent recent EGD during a separate hospitalization 1 month ago which showed mild duodenitis and gastritis. Denies rectal bleeding or melena. Liver enzymes are normal except for a slight elevation of alkaline phosphatase. Denies any change in the color of her skin urine or stool. Past Medical History Past Medical History: Diabetes Mellitus, Fibromyalgia, Hyperlipidemia Additional Past Medical History / Comment(s): myalgia, myositis, sciatica, chronic pain syndrome, vaginitis, otalgia, fatigue, malaise, UTI, microscopic hematuria, tachycardia, insomnia, lumbago, degenerative disc, colitis History of Any Multi-Drug Resistant Organisms: C-DIFF Date of last positivie culture/infection: February 15 2020 MDRO Source:: stool Past Surgical History: Orthopedic Surgery, Tubal Ligation Additional Past Surgical History / Comment(s): left wrist Past Anesthesia/Blood Transfusion Reactions: No Reported Reaction Past Psychological History: Depression Smoking Status: Former smoker Past Alcohol Use History: None Reported Past Drug Use History: None Reported - Past Family History Mother Family Medical History: Cancer, COPD Additional Family Medical History / Comment(s): cervical cancer Father Additional Family Medical History / Comment(s): etoh abuse Medications and Allergies Home Medications Medication Instructions Recorded Confirmed Type Acetaminophen [Tylenol] 1,000 mg PO DAILY PRN 03/12/20 04/07/20 History DULoxetine HCL [Cymbalta] 30 mg PO DAILY 03/12/20 04/07/20 History Gabapentin [Neurontin] 100 mg PO QAM 03/12/20 04/07/20 History Gabapentin [Neurontin] 200 mg PO HS 03/12/20 04/07/20 History HYDROcodone/APAP 10-325MG [Busy 1 tab PO Q6H PRN 03/12/20 04/07/20 History 10-325] Insulin NPH Hum/Reg Insulin Hm 22 units SQ BID-W/MEALS 03/12/20 04/07/20 History [Novolin 70-30 Flexpen] Temazepam [Restoril] 7.5 mg PO HS PRN 03/12/20 04/07/20 History metFORMIN HCL [Glucophage] 1,000 mg PO Q12H 03/12/20 04/07/20 History Allergies Allergy/AdvReac Type Severity Reaction Status Date / Time pregabalin [From Lyrica] AdvReac Swelling Verified 04/07/20 16:57 trazodone AdvReac Unknown Verified 04/07/20 16:57 Surgical - Exam Vital Signs Temp Pulse Resp BP Pulse Ox 98.1 F 100 20 103/67 99 04/07/20 16:11 04/07/20 16:11 04/07/20 16:11 04/07/20 16:11 04/07/20 16:11 Physical exam: General: Well-developed, well-nourished HEENT: Normocephalic, sclerae nonicteric Abdomen: Right upper quadrant tenderness, nondistended Extremities: No edema Neuro: Alert and oriented Results - Labs 04/07/20 16:32 04/07/20 16:32 Abnormal Lab Results - Last 24 Hours (Table) 04/07/20 04/07/20 04/07/20 Range/Units 16:32 16:32 18:21 WBC 18.3 H (3.8-10.6) k/uL RBC 3.67 L (3.80-5.40) m/uL Hgb 10.7 L (11.4-16.0) gm/dL MCHC 30.2 L (31.0-37.0) g/dL Plt Count 459 H (150-450) k/uL Neutrophils # 16.1 H (1.3-7.7) k/uL Sodium 134 L (137-145) mmol/L BUN 44 H (7-17) mg/dL Creatinine 0.40 L (0.52-1.04) mg/dL Glucose 469 H (74-99) mg/dL POC Glucose (mg/dL) 424 H (75-99) mg/dL Alkaline Phosphatase 148 H (38-126) U/L Albumin 2.8 L (3.5-5.0) g/dL Lipase 19 L (23-300) U/L Urine Glucose (UA) (Negative) 04/07/20 04/08/20 04/08/20 Range/Units 19:12 05:52 06:45 WBC (3.8-10.6) k/uL RBC (3.80-5.40) m/uL Hgb (11.4-16.0) gm/dL MCHC (31.0-37.0) g/dL Plt Count (150-450) k/uL Neutrophils # (1.3-7.7) k/uL Sodium (137-145) mmol/L BUN (7-17) mg/dL Creatinine (0.52-1.04) mg/dL Glucose (74-99) mg/dL POC Glucose (mg/dL) 285 H 275 H (75-99) mg/dL Alkaline Phosphatase (38-126) U/L Albumin (3.5-5.0) g/dL Lipase (23-300) U/L Urine Glucose (UA) 4+ H (Negative) Diabetes panel 04/07/20 Range/Units 16:32 Sodium 134 L (137-145) mmol/L Potassium 4.8 (3.5-5.1) mmol/L Chloride 98 (98-107) mmol/L Carbon Dioxide 26 (22-30) mmol/L BUN 44 H (7-17) mg/dL Creatinine 0.40 L (0.52-1.04) mg/dL Glucose 469 H (74-99) mg/dL Calcium 8.8 (8.4-10.2) mg/dL AST 17 (14-36) U/L ALT 8 (4-34) U/L Alkaline Phosphatase 148 H (38-126) U/L Total Protein 6.3 (6.3-8.2) g/dL Albumin 2.8 L (3.5-5.0) g/dL Calcium panel 04/07/20 Range/Units 16:32 Calcium 8.8 (8.4-10.2) mg/dL Albumin 2.8 L (3.5-5.0) g/dL Pituitary panel 04/07/20 Range/Units 16:32 Sodium 134 L (137-145) mmol/L Potassium 4.8 (3.5-5.1) mmol/L Chloride 98 (98-107) mmol/L Carbon Dioxide 26 (22-30) mmol/L BUN 44 H (7-17) mg/dL Creatinine 0.40 L (0.52-1.04) mg/dL Glucose 469 H (74-99) mg/dL Calcium 8.8 (8.4-10.2) mg/dL Adrenal panel 04/07/20 Range/Units 16:32 Sodium 134 L (137-145) mmol/L Potassium 4.8 (3.5-5.1) mmol/L Chloride 98 (98-107) mmol/L Carbon Dioxide 26 (22-30) mmol/L BUN 44 H (7-17) mg/dL Creatinine 0.40 L (0.52-1.04) mg/dL Glucose 469 H (74-99) mg/dL Calcium 8.8 (8.4-10.2) mg/dL Total Bilirubin 0.5 (0.2-1.3) mg/dL AST 17 (14-36) U/L ALT 8 (4-34) U/L Alkaline Phosphatase 148 H (38-126) U/L Total Protein 6.3 (6.3-8.2) g/dL Albumin 2.8 L (3.5-5.0) g/dL Assessment and Plan (1) Acute cholecystitis Narrative/Plan: Will proceed with laparoscopic, possible open cholecystectomy at this time. Continue antibiotics. Risks of bleeding, infection, bile leak, bile duct injury, retained common bile duct stone, trocar injury, conversion to an open procedure, hernia, anesthesia related complications were reviewed. The patient understands and wishes to proceed. Current Visit: Yes Status: Acute Code(s): K81.0 - ACUTE CHOLECYSTITIS SNOMED Code(s): 96646533
[2020-04-08] MEDS ORDERED: DEXAMETHASONE SOD PHOSPHATE 10 MG/ML 1 ML VIAL IV ONE (08:51)
[2020-04-08] MEDS ORDERED: ceFAZolin 1,000 MG VIAL ONE (09:30)
[2020-04-08] MEDS ORDERED: SUCCINYLCHOLINE CHLORIDE 100 MG/5 ML SYR IV ONE (09:30)
[2020-04-08] MEDS ORDERED: KETOROLAC 15 MG/ML 1 ML VIAL ONE (09:30)
[2020-04-08] MEDS ORDERED: GLYCOPYRROLATE 0.2 MG/ML 2 ML VIAL ONE (09:30)
[2020-04-08] MEDS ORDERED: ROCURONIUM BROMIDE 10 MG/ML 5 ML VIAL IV ONE (09:30)
[2020-04-08] MEDS ORDERED: NEOSTIGMINE 1 MG/ML 10 ML VIAL ONE (09:30)
[2020-04-08] MEDS ORDERED: LIDOCAINE 1% INJ 10MG/ML (20 ML MDV) ONE (09:30)
[2020-04-08] MEDS ORDERED: PHENYLEPHRINE-0.9% NACL SYG 1 MG/10 ML SYRINGE ONE (09:30)
[2020-04-08] MEDS ORDERED: PROPOFOL 10 MG/ML 20 ML VIAL IV ONE (09:30)
[2020-04-08] MEDS ORDERED: fentaNYL (PF) 50 MCG/ML 2 ML AMP ONE (09:30)
[2020-04-08] MEDS ORDERED: SODIUM CHLORIDE 0.9% 100 ML with ceFAZolin 1,000 MG IV ONE ×2 (09:40)
[2020-04-08] MEDS ORDERED: LACTATED RINGERS 1,000 ML IV ONE (09:40)
[2020-04-08] MEDS ORDERED: LIDOCAINE 1%-EPI 1:100,000 20 ML VIAL SQ ONE (09:55)
[2020-04-08 10:49] LABS: Glucose,Whole Blood 282 mg/dL (75-99)
--- NOTE | 2020-04-08 10:58 | P.OP ---
Date of Procedure: 04/08/20 Procedure(s) Performed: PREOPERATIVE DIAGNOSIS: Acute cholecystitis POSTOPERATIVE DIAGNOSIS: Same PROCEDURE: Laparoscopic cholecystectomy SURGEON: Grant EBL: Minimal see anesthesia record ANESTHESIA: Gen. COMPLICATIONS: None OPERATIVE PROCEDURE: The patient was brought and placed on the operating room table in the supine position. The patient was placed under general anesthesia at that time. The abdomen was prepped and draped in the usual sterile fashion. A small vertical infraumbilical incision was made. The fascia was grasped with the Phu forceps. The fascia was retracted anteriorly. The Veress needle was advanced into the peritoneal cavity. The saline drop test was normal. Insufflation took place up to 15 mmHg. A 5 mm optical trocar was advanced and the peritoneal cavity. 2 additional 5 mm trochars were placed in the right upper quadrant under direct visualization. A 12 mm trocar was advanced into the epigastric incision site. The gallbladder was acutely inflamed. It was quite distended. The patient's liver was inspected. There was micronodular nodularity noted with a small amount of free fluid within the abdomen. Suspect chronic liver disease. The gallbladder was retracted superiorly and laterally. The peritoneum overlying the infundibulum was bluntly dissected. The patient's cystic duct was visualized. The junction between the cystic duct common and hepatic duct was identified. The cystic duct was then divided after placement of 3 12 mm clips on the patient's side and one on the specimen side. The cystic artery was identified and clipped as well. A small vessel was seen along the gallbladder fossa and clipped as well. The gallbladder was then removed from the liver bed using electrocautery. The gallbladder was then removed from the epigastric trocar site with an Endo Catch bag. The gallbladder fossa was irrigated with saline. There was no evidence of any bleeding or biliary drainage seen. The fascia at the 12 millimeter site was closed using a [id number] 0 Vicryl stitch. The trochars were then removed. The skin at all 4 sites was closed using a 4-0 Monocryl stitch. Skin glue was utilized on the incision sites. At the end of this procedure the sponge and needle counts were correct. DISPOSITION: Stable to the recovery room
[2020-04-08] MEDS ORDERED: IPRATROPIUM-ALBUTEROL 3 ML NEB INHALATION PRN (11:27)
[2020-04-08 11:38] LABS: Glucose,Whole Blood 260 mg/dL (75-99)
[2020-04-08] MEDS: KETOROLAC 15 MG/ML 1 ML VIAL IVP SCH ×3 (12:08→23:06)
[2020-04-08] MEDS: AZITHROMYCIN 500 MG in SODIUM CHLORIDE 0.9% 250 ML IVPB SCH (12:10)
[2020-04-08 12:29] LABS: Basophils % (A) 0 %; Eosinophils % (A) 0 %; HGB 9.9 gm/dL (11.4-16.0); Hypochromasia Moderate; Lymphocytes # (A) 0.4 k/uL (1.0-4.8); Lymphocytes % (A) 3 %; MCH 29.5 pg (25.0-35.0); MCHC 30.9 g/dL (31.0-37.0); MCV 95.5 fL (80.0-100.0); Mean Platelet Volume 7.3; Monocytes # (A) 0.3 k/uL (0-1.0); Monocytes % (A) 2 %; Neutrophils # (A) 11.3 k/uL (1.3-7.7); Neutrophils % (A) 94 %; Platelet Count 442 k/uL (150-450); RBC 3.35 m/uL (3.80-5.40)
[2020-04-08 12:41] LABS: African American GFR (CKD) >90 (>60 ml/min/1.73 sqM); Anion Gap 8 mmol/L; Blood Urea Nitrogen 23 mg/dL (7-17); Calcium 8.1 mg/dL (8.4-10.2); Carbon Dioxide 26 mmol/L (22-30); Chloride 102 mmol/L (98-107); Glucose 264 mg/dL (74-99); Non-African American GFR(CKD) >90 (>60 ml/min/1.73 sqM); Potassium 4.3 mmol/L (3.5-5.1); Sodium 136 mmol/L (137-145)
[2020-04-08] MEDS: PIPERACILLIN-TAZOBACTAM 3.375 GM in SODIUM CHLORIDE 0.9% 100 ML IVPB SCH ×2 (16:32→23:06)
[2020-04-08 17:00] LABS: Glucose,Whole Blood 273 mg/dL (75-99)
--- NOTE | 2020-04-08 18:14 | P.CONS ---
History of Present Illness - Reason for Consult Consult date: 04/08/20 Right lower lobe/basilar pneumonia; hyperglycemia - Chief Complaint Right upper quadrant pain - History of Present Illness 59-year-old female with a history of known gallbladder disease came to the hospital complaining of 3 days worth of increasing pain right upper quadrant. Pain does radiate to the right side of her back. Some nausea. Patient is diabetic on insulin. Blood sugars have been elevated. White blood cell count was high at 18. Low-grade fever 99.8. Pain persists this morning. Ultrasound showed a distended gallbladder with inflammation and fluid. Underwent recent EGD during a separate hospitalization 1 month ago which showed mild duodenitis and gastritis. Denies rectal bleeding or melena. Liver enzymes are normal except for a slight elevation of alkaline phosphatase. Denies any change in the color of her skin urine or stool. Patient was taken to or this morning and underwent laparoscopic cholecystectomy; internal medicine is consulted for possible right lower lobe and basilar pneumonia Review of Systems REVIEW OF SYSTEMS: CONSTITUTIONAL: No fever, no malaise, no fatigue. HEENT: No recent visual problems or hearing problems. Denied any sore throat. CARDIOVASCULAR: No chest pain, orthopnea, PND, no palpitations, no syncope. PULMONARY: No shortness of breath, no cough, no hemoptysis. GASTROINTESTINAL: No diarrhea, no nausea, no vomiting, no abdominal pain. NEUROLOGICAL: No headaches, no weakness, no numbness. HEMATOLOGICAL: Denies any bleeding or petechiae. GENITOURINARY: Denies any burning micturition, frequency, or urgency. MUSCULOSKELETAL/RHEUMATOLOGICAL: Denies any joint pain, swelling, or any muscle pain. ENDOCRINE: Denies any polyuria or polydipsia. The rest of the 14-point review of systems is negative. Past Medical History Past Medical History: Diabetes Mellitus, Fibromyalgia, Hyperlipidemia Additional Past Medical History / Comment(s): myalgia, myositis, sciatica, chronic pain syndrome, vaginitis, otalgia, fatigue, malaise, UTI, microscopic hematuria, tachycardia, insomnia, lumbago, degenerative disc, colitis History of Any Multi-Drug Resistant Organisms: C-DIFF Year Discovered:: February 15 2020 MDRO Source:: stool Past Surgical History: Orthopedic Surgery, Tubal Ligation Additional Past Surgical History / Comment(s): left wrist Past Anesthesia/Blood Transfusion Reactions: No Reported Reaction Past Psychological History: Depression Smoking Status: Former smoker Past Alcohol Use History: None Reported Past Drug Use History: None Reported - Past Family History Mother Family Medical History: Cancer, COPD Additional Family Medical History / Comment(s): cervical cancer Father Additional Family Medical History / Comment(s): etoh abuse Medications and Allergies Home Medications Medication Instructions Recorded Confirmed Type Acetaminophen [Tylenol] 1,000 mg PO DAILY PRN 03/12/20 04/07/20 History DULoxetine HCL [Cymbalta] 30 mg PO DAILY 03/12/20 04/07/20 History Gabapentin [Neurontin] 100 mg PO QAM 03/12/20 04/07/20 History Gabapentin [Neurontin] 200 mg PO HS 03/12/20 04/07/20 History HYDROcodone/APAP 10-325MG [[place] 1 tab PO Q6H PRN 03/12/20 04/07/20 History 10-325] Insulin NPH Hum/Reg Insulin Hm 22 units SQ BID-W/MEALS 03/12/20 04/07/20 History [Novolin 70-30 Flexpen] Temazepam [Restoril] 7.5 mg PO HS PRN 03/12/20 04/07/20 History metFORMIN HCL [Glucophage] 1,000 mg PO Q12H 03/12/20 04/07/20 History Allergies Allergy/AdvReac Type Severity Reaction Status Date / Time pregabalin [From Lyrica] AdvReac Swelling Verified 04/07/20 16:57 trazodone AdvReac Unknown Verified 04/07/20 16:57 Physical Exam Vitals: Vital Signs Temp Pulse Pulse Resp BP BP Pulse Ox 04/08/20 11:00 101 H 20 125/69 96 04/08/20 10:45 99 20 128/75 96 04/08/20 10:40 97.9 F 97 20 145/80 96 04/08/20 08:20 99 20 106/66 91 L 04/08/20 07:32 20 04/08/20 07:00 98.6 F 107 H 16 127/81 91 L 04/08/20 01:25 99.8 F H 109 H 20 100/64 04/07/20 20:01 98.5 F 108 H 22 123/76 94 L 04/07/20 17:55 98.8 F 112 H 18 132/91 95 04/07/20 16:11 98.1 F 100 20 103/67 99 Intake and Output 04/07/20 04/08/20 04/08/20 22:59 06:59 14:59 Intake Total 950 Output Total 10 Balance 940 Intake: IV 950 Output: Estimated Blood Loss 10 Other: Voiding Method Toilet Toilet # Voids 1 1 Weight 43.998 kg - Constitutional General appearance: Present: average body habitus, cooperative, no acute distress - EENT Eyes: Present: anicteric sclerae, EOMI, PERRLA, normal appearance ENT: Present: hearing grossly normal, normal oropharynx Ears: bilateral: normal - Neck Neck: Present: normal ROM. Absent: lymphadenopathy, rigidity, thyromegaly Carotids: negative: bruit present Thyroid: bilateral: normal size, negative: enlarged, nodule - Respiratory Respiratory: bilateral: CTA, negative: rales, rhonchi, wheezing - Cardiovascular Rhythm: regular Heart sounds: normal: S1, S2 Abnormal Heart Sounds: Absent: systolic murmur, diastolic murmur - Gastrointestinal General gastrointestinal: Present: normal bowel sounds, soft. Absent: d istended, organomegaly, tenderness - Genitourinary Genitourinary Comment(s): deferred - Integumentary Integumentary: Present: normal turgor. Absent: jaundiced, rash, ulcer - Neurologic Neurologic: Present: CNII-XII intact. Absent: focal deficits - Musculoskeletal Musculoskeletal: Present: gait normal, strength equal bilaterally - Psychiatric Psychiatric: Present: A&O x's 3, appropriate affect, intact judgment & insight Results CBC & Chem 7: 04/08/20 12:07 04/08/20 12:07 Labs: Abnormal Lab Results - Last 24 Hours (Table) 04/07/20 04/07/20 04/07/20 Range/Units 16:32 16:32 18:21 WBC 18.3 H (3.8-10.6) k/uL RBC 3.67 L (3.80-5.40) m/uL Hgb 10.7 L (11.4-16.0) gm/dL MCHC 30.2 L (31.0-37.0) g/dL Plt Count 459 H (150-450) k/uL Neutrophils # 16.1 H (1.3-7.7) k/uL Sodium 134 L (137-145) mmol/L BUN 44 H (7-17) mg/dL Creatinine 0.40 L (0.52-1.04) mg/dL Glucose 469 H (74-99) mg/dL POC Glucose (mg/dL) 424 H (75-99) mg/dL Alkaline Phosphatase 148 H (38-126) U/L Albumin 2.8 L (3.5-5.0) g/dL Lipase 19 L (23-300) U/L Urine Glucose (UA) (Negative) 04/07/20 04/08/20 04/08/20 Range/Units 19:12 05:52 06:45 WBC (3.8-10.6) k/uL RBC (3.80-5.40) m/uL Hgb (11.4-16.0) gm/dL MCHC (31.0-37.0) g/dL Plt Count (150-450) k/uL Neutrophils # (1.3-7.7) k/uL Sodium (137-145) mmol/L BUN (7-17) mg/dL Creatinine (0.52-1.04) mg/dL Glucose (74-99) mg/dL POC Glucose (mg/dL) 285 H 275 H (75-99) mg/dL Alkaline Phosphatase (38-126) U/L Albumin (3.5-5.0) g/dL Lipase (23-300) U/L Urine Glucose (UA) 4+ H (Negative) 04/08/20 Range/Units 10:44 WBC (3.8-10.6) k/uL RBC (3.80-5.40) m/uL Hgb (11.4-16.0) gm/dL MCHC (31.0-37.0) g/dL Plt Count (150-450) k/uL Neutrophils # (1.3-7.7) k/uL Sodium (137-145) mmol/L BUN (7-17) mg/dL Creatinine (0.52-1.04) mg/dL Glucose (74-99) mg/dL POC Glucose (mg/dL) 282 H (75-99) mg/dL Alkaline Phosphatase (38-126) U/L Albumin (3.5-5.0) g/dL Lipase (23-300) U/L Urine Glucose (UA) (Negative) Assessment and Plan Assessment: 1. Acute cholecystitis; status post laparoscopic cholecystectomy 2. Right lower lobe/basilar pneumonia; patient is already started on IV Zosyn; we will add azithromycin for atypical coverage; white blood count is up to 18.3; I will order stat CBC along with pro-calcitonin and CRP levels; add bronchodilator nebulizer treatments; symptomatic treatment of pneumonia 3. Hyperglycemia; uncontrolled diabetes; we will continue with current regimen of insulin 7030 along with sliding scale; I will add Levemir 10 units subcu daily at bedtime 4. Peripheral neuropathy; continue with Neurontin 100 mg by mouth every morning and 200 mg by mouth daily at bedtime 5. Depression; Cymbalta 30 mg daily DVT prophylaxis; per discretion of surgery CODE STATUS; full code
[2020-04-08 20:48] LABS: Glucose,Whole Blood 280 mg/dL (75-99)
[2020-04-08] MEDS: INSULIN DETEMIR (LEVEMIR) 100 UNIT/ML SYR SQ SCH (21:02)
[2020-04-09] MEDS: KETOROLAC 15 MG/ML 1 ML VIAL IVP SCH ×4 (05:35→23:56)
[2020-04-09 06:53] LABS: Glucose,Whole Blood 208 mg/dL (75-99)
[2020-04-09] MEDS: AZITHROMYCIN 500 MG in SODIUM CHLORIDE 0.9% 250 ML IVPB SCH (07:05)
[2020-04-09] MEDS: SODIUM CHLORIDE 0.9% 1,000 ML IV SCH ×2 (07:07→20:40)
[2020-04-09] MEDS: metFORMIN 500 MG TAB PO SCH ×2 (07:07→17:33)
[2020-04-09] MEDS: INSULIN ASPART (NovoLOG) 100 UNIT/ML VIAL SQ SCH ×4 (07:08→20:40)
[2020-04-09] MEDS: INSULN ASP PRT/INSULIN ASPART 100 UNIT/ML 10 ML VIAL SQ SCH ×2 (07:08→17:34)
[2020-04-09] MEDS: GABAPENTIN 100 MG CAP PO SCH ×2 (07:08→20:39)
[2020-04-09] MEDS: DULoxetine HCL 30 MG CAPSULE.DR PO SCH (07:14)
[2020-04-09] MEDS: HYDROcodone/APAP 10-325MG 1 EACH TAB PO PRN ×3 (07:16→22:19)
[2020-04-09 08:35] LABS: Basophils % (A) 0 %; Eosinophils % (A) 0 %; HCT 35.8 % (34.0-46.0); HGB 10.7 gm/dL (11.4-16.0); Hypochromasia Marked; Lymphocytes # (A) 1.2 k/uL (1.0-4.8); Lymphocytes % (A) 7 %; MCH 28.7 pg (25.0-35.0); MCV 95.6 fL (80.0-100.0); Mean Platelet Volume 6.9; Monocytes # (A) 0.6 k/uL (0-1.0); Monocytes % (A) 4 %; Neutrophils # (A) 14.2 k/uL (1.3-7.7); Neutrophils % (A) 88 %; Platelet Count 554 k/uL (150-450); RBC 3.74 m/uL (3.80-5.40); RDW 13.7 % (11.5-15.5); WBC 16.2 k/uL (3.8-10.6)
[2020-04-09] MEDS: PIPERACILLIN-TAZOBACTAM 3.375 GM in SODIUM CHLORIDE 0.9% 100 ML IVPB SCH ×3 (08:48→23:57)
[2020-04-09 08:53] LABS: ALT 13 U/L (4-34); AST 32 U/L (14-36); African American GFR (CKD) >90 (>60 ml/min/1.73 sqM); Albumin 2.4 g/dL (3.5-5.0); Alkaline Phosphatase 113 U/L (38-126); Anion Gap 9 mmol/L; Blood Urea Nitrogen 34 mg/dL (7-17); Calcium 8.2 mg/dL (8.4-10.2); Carbon Dioxide 27 mmol/L (22-30); Chloride 100 mmol/L (98-107); Glucose 258 mg/dL (74-99); Non-African American GFR(CKD) >90 (>60 ml/min/1.73 sqM); Potassium 5.1 mmol/L (3.5-5.1); Sodium 136 mmol/L (137-145); Total Bilirubin 0.4 mg/dL (0.2-1.3); Total Protein 5.8 g/dL (6.3-8.2)
[2020-04-09 09:05] LABS: C Reactive Protein 199.7 mg/L (<10.0)
--- NOTE | 2020-04-09 09:44 | P.PN ---
Subjective Progress Note Date: 04/09/20 Principal diagnosis: Acute cholecystitis Patient doing fairly well today. Pain at the incision sites is appropriate. Some of the pain she was having preoperatively has improved. Remains on antibiotics. White blood cell count increased today. Objective - Vital Signs Vital signs: Vital Signs Temp 98.6 F 04/09/20 08:54 Pulse 70 04/09/20 08:54 Resp 18 04/09/20 08:54 BP 146/75 04/09/20 08:54 Pulse Ox 94 L 04/09/20 08:54 Intake & Output 04/08/20 04/09/20 04/09/20 18:59 06:59 18:59 Intake Total 1750 200 780 Output Total 10 Balance 1740 200 780 Intake: IV 950 Intake, IV Titration 800 480 Amount Azithromycin 500 mg In 250 Sodium Chloride 0.9% 250 ml @ 250 mls/hr IVPB DAILY [facility] Rx#:[id number] Piperacillin-Tazobactam 3 100 .375 gm In Sodium Chloride 0.9% 100 ml @ 25 mls/hr IVPB Q8HR [facility] Rx# :[id number] Sodium Chloride 0.9% 1, 450 480 000 ml @ 80 mls/hr IV . [id number] [facility] Rx#:[id number] Oral 200 300 Output: Estimated Blood Loss 10 Other: Voiding Method Toilet Toilet # Voids 1 2 - Exam Abdomen: Soft, nondistended, incisions clean and dry, mild tenderness - Labs CBC & Chem 7: 04/09/20 07:39 04/09/20 07:39 Labs: Abnormal Lab Results - Last 24 Hours (Table) 04/08/20 04/08/20 04/08/20 Range/Units 10:44 11:36 12:07 WBC 12.0 H (3.8-10.6) k/uL RBC 3.35 L (3.80-5.40) m/uL Hgb 9.9 L (11.4-16.0) gm/dL Hct 32.0 L (34.0-46.0) % MCHC 30.9 L (31.0-37.0) g/dL Plt Count (150-450) k/uL Neutrophils # 11.3 H (1.3-7.7) k/uL Lymphocytes # 0.4 L (1.0-4.8) k/uL Sodium (137-145) mmol/L BUN (7-17) mg/dL Creatinine (0.52-1.04) mg/dL Glucose (74-99) mg/dL POC Glucose (mg/dL) 282 H 260 H (75-99) mg/dL Calcium (8.4-10.2) mg/dL C-Reactive Protein (<10.0) mg/L Total Protein (6.3-8.2) g/dL Albumin (3.5-5.0) g/dL Procalcitonin (0.02-0.09) ng/mL 04/08/20 04/08/20 04/08/20 Range/Units 12:07 12:07 16:58 WBC (3.8-10.6) k/uL RBC (3.80-5.40) m/uL Hgb (11.4-16.0) gm/dL Hct (34.0-46.0) % MCHC (31.0-37.0) g/dL Plt Count (150-450) k/uL Neutrophils # (1.3-7.7) k/uL Lymphocytes # (1.0-4.8) k/uL Sodium 136 L (137-145) mmol/L BUN 23 H (7-17) mg/dL Creatinine 0.34 L (0.52-1.04) mg/dL Glucose 264 H (74-99) mg/dL POC Glucose (mg/dL) 273 H (75-99) mg/dL Calcium 8.1 L (8.4-10.2) mg/dL C-Reactive Protein (<10.0) mg/L Total Protein (6.3-8.2) g/dL Albumin (3.5-5.0) g/dL Procalcitonin 2.27 H (0.02-0.09) ng/mL 04/08/20 04/09/20 04/09/20 Range/Units 20:46 06:52 07:39 WBC 16.2 H (3.8-10.6) k/uL RBC 3.74 L (3.80-5.40) m/uL Hgb 10.7 L (11.4-16.0) gm/dL Hct (34.0-46.0) % MCHC 30.0 L (31.0-37.0) g/dL Plt Count 554 H (150-450) k/uL Neutrophils # 14.2 H (1.3-7.7) k/uL Lymphocytes # (1.0-4.8) k/uL Sodium (137-145) mmol/L BUN (7-17) mg/dL Creatinine (0.52-1.04) mg/dL Glucose (74-99) mg/dL POC Glucose (mg/dL) 280 H 208 H (75-99) mg/dL Calcium (8.4-10.2) mg/dL C-Reactive Protein (<10.0) mg/L Total Protein (6.3-8.2) g/dL Albumin (3.5-5.0) g/dL Procalcitonin (0.02-0.09) ng/mL 04/09/20 Range/Units 07:39 WBC (3.8-10.6) k/uL RBC (3.80-5.40) m/uL Hgb (11.4-16.0) gm/dL Hct (34.0-46.0) % MCHC (31.0-37.0) g/dL Plt Count (150-450) k/uL Neutrophils # (1.3-7.7) k/uL Lymphocytes # (1.0-4.8) k/uL Sodium 136 L (137-145) mmol/L BUN 34 H (7-17) mg/dL Creatinine 0.40 L (0.52-1.04) mg/dL Glucose 258 H (74-99) mg/dL POC Glucose (mg/dL) (75-99) mg/dL Calcium 8.2 L (8.4-10.2) mg/dL C-Reactive Protein 199.7 H (<10.0) mg/L Total Protein 5.8 L (6.3-8.2) g/dL Albumin 2.4 L (3.5-5.0) g/dL Procalcitonin (0.02-0.09) ng/mL Microbiology - Last 24 Hours (Table) 04/07/20 18:12 Blood Culture - Preliminary Blood No Growth after 24 hours Assessment and Plan (1) Acute cholecystitis Narrative/Plan: Continue antibiotics for possible pneumonia and cholecystitis. Gradually i ncrease diet. Possible discharge tomorrow if doing well. Current Visit: Yes Status: Acute Code(s): K81.0 - ACUTE CHOLECYSTITIS SNOMED Code(s): 93959728
[2020-04-09] MEDS: MORPHINE SULFATE 4 MG/ML SYRINGE IV PRN ×2 (10:58→19:10)
[2020-04-09 11:40] LABS: Glucose,Whole Blood 111 mg/dL (75-99)
[2020-04-09 16:55] LABS: Glucose,Whole Blood 176 mg/dL (75-99)
--- NOTE | 2020-04-09 17:12 | P.PN ---
Subjective Progress Note Date: 04/09/20 Principal diagnosis: Right lower lobe/basilar pneumonia Hyperglycemia Status post laparoscopic cholecystectomy 59-year-old female with a history of known gallbladder disease came to the hospital complaining of 3 days worth of increasing pain right upper quadrant. Pain does radiate to the right side of her back. Some nausea. Patient is diabetic on insulin. Blood sugars have been elevated. White blood cell count was high at 18. Low-grade fever 99.8. Pain persists this morning. Ultrasound showed a distended gallbladder with inflammation and fluid. Underwent recent EGD during a separate hospitalization 1 month ago which showed mild duodenitis and gastritis. Denies rectal bleeding or melena. Liver enzymes are normal except for a slight elevation of alkaline phosphatase. Denies any change in the color of her skin urine or stool. Patient was taken to or this morning and underwent laparoscopic cholecystectomy; internal medicine is consulted for possible right lower lobe and basilar pneumonia On 04/09/2020 patient's white blood count has slightly trended up to 16.2, pro- calcitonin of 2.27 and an elevated CRP; patient is currently on IV Zosyn and azithromycin; recommending palm consult if patient doesn't improve in next 24 hours Blood sugars show marked improvement with addition of 10 units of Levemir at bedtime; continue with insulin 7030 Objective - Vital Signs Vital signs: Vital Signs Temp 98.6 F 04/09/20 08:54 Pulse 70 04/09/20 08:54 Resp 18 04/09/20 08:54 BP 146/75 04/09/20 08:54 Pulse Ox 94 L 04/09/20 08:54 Intake & Output 04/08/20 04/09/20 04/09/20 18:59 06:59 18:59 Intake Total 1750 200 780 Output Total 10 Balance 1740 200 780 Intake: IV 950 Intake, IV Titration 800 480 Amount Azithromycin 500 mg In 250 Sodium Chloride 0.9% 250 ml @ 250 mls/hr IVPB DAILY [facility] Rx#:[id number] Piperacillin-Tazobactam 3 100 .375 gm In Sodium Chloride 0.9% 100 ml @ 25 mls/hr IVPB Q8HR [facility] Rx# :[id number] Sodium Chloride 0.9% 1, 450 480 000 ml @ 80 mls/hr IV . [id number] [facility] Rx#:[id number] Oral 200 300 Output: Estimated Blood Loss 10 Other: Voiding Method Toilet Toilet # Voids 1 2 - Exam - Constitutional General appearance: Present: average body habitus, cooperative, no acute distress - EENT Eyes: Present: anicteric sclerae, EOMI, PERRLA, normal appearance ENT: Present: hearing grossly normal, normal oropharynx Ears: bilateral: normal - Neck Neck: Present: normal ROM. Absent: lymphadenopathy, rigidity, thyromegaly Carotids: negative: bruit present Thyroid: bilateral: normal size, negative: enlarged, nodule - Respiratory Respiratory: bilateral: CTA, negative: rales, rhonchi, wheezing - Cardiovascular Rhythm: regular Heart sounds: normal: S1, S2 Abnormal Heart Sounds: Absent: systolic murmur, diastolic murmur - Gastrointestinal General gastrointestinal: Present: normal bowel sounds, soft. Absent: distended, organomegaly, tenderness - Genitourinary Genitourinary Comment(s): deferred - Integumentary Integumentary: Present: normal turgor. Absent: jaundiced, rash, ulcer - Neurologic Neurologic: Present: CNII-XII intact. Absent: focal deficits - Musculoskeletal Musculoskeletal: Present: gait normal, strength equal bilaterally - Psychiatric Psychiatric: Present: A&O x's 3, appropriate affect, intact judgment & insight - Labs CBC & Chem 7: 04/09/20 07:39 04/09/20 07:39 Labs: Abnormal Lab Results - Last 24 Hours (Table) 04/08/20 04/08/20 04/08/20 Range/Units 11:36 12:07 12:07 WBC 12.0 H (3.8-10.6) k/uL RBC 3.35 L (3.80-5.40) m/uL Hgb 9.9 L (11.4-16.0) gm/dL Hct 32.0 L (34.0-46.0) % MCHC 30.9 L (31.0-37.0) g/dL Plt Count (150-450) k/uL Neutrophils # 11.3 H (1.3-7.7) k/uL Lymphocytes # 0.4 L (1.0-4.8) k/uL Sodium 136 L (137-145) mmol/L BUN 23 H (7-17) mg/dL Creatinine 0.34 L (0.52-1.04) mg/dL Glucose 264 H (74-99) mg/dL POC Glucose (mg/dL) 260 H (75-99) mg/dL Calcium 8.1 L (8.4-10.2) mg/dL C-Reactive Protein (<10.0) mg/L Total Protein (6.3-8.2) g/dL Albumin (3.5-5.0) g/dL Procalcitonin (0.02-0.09) ng/mL 04/08/20 04/08/20 04/08/20 Range/Units 12:07 16:58 20:46 WBC (3.8-10.6) k/uL RBC (3.80-5.40) m/uL Hgb (11.4-16.0) gm/dL Hct (34.0-46.0) % MCHC (31.0-37.0) g/dL Plt Count (150-450) k/uL Neutrophils # (1.3-7.7) k/uL Lymphocytes # (1.0-4.8) k/uL Sodium (137-145) mmol/L BUN (7-17) mg/dL Creatinine (0.52-1.04) mg/dL Glucose (74-99) mg/dL POC Glucose (mg/dL) 273 H 280 H (75-99) mg/dL Calcium (8.4-10.2) mg/dL C-Reactive Protein (<10.0) mg/L Total Protein (6.3-8.2) g/dL Albumin (3.5-5.0) g/dL Procalcitonin 2.27 H (0.02-0.09) ng/mL 04/09/20 04/09/20 04/09/20 Range/Units 06:52 07:39 07:39 WBC 16.2 H (3.8-10.6) k/uL RBC 3.74 L (3.80-5.40) m/uL Hgb 10.7 L (11.4-16.0) gm/dL Hct (34.0-46.0) % MCHC 30.0 L (31.0-37.0) g/dL Plt Count 554 H (150-450) k/uL Neutrophils # 14.2 H (1.3-7.7) k/uL Lymphocytes # (1.0-4.8) k/uL Sodium 136 L (137-145) mmol/L BUN 34 H (7-17) mg/dL Creatinine 0.40 L (0.52-1.04) mg/dL Glucose 258 H (74-99) mg/dL POC Glucose (mg/dL) 208 H (75-99) mg/dL Calcium 8.2 L (8.4-10.2) mg/dL C-Reactive Protein 199.7 H (<10.0) mg/L Total Protein 5.8 L (6.3-8.2) g/dL Albumin 2.4 L (3.5-5.0) g/dL Procalcitonin (0.02-0.09) ng/mL Microbiology - Last 24 Hours (Table) 04/07/20 18:12 Blood Culture - Preliminary Blood No Growth after 24 hours Assessment and Plan Assessment: 1. Acute cholecystitis; status post laparoscopic cholecystectomy 2. Right lower lobe/basilar pneumonia; patient is already started on IV Zosyn; we will add azithromycin for atypical coverage; white blood count is up to 18.3; I will order stat CBC along with pro-calcitonin and CRP levels; add bronchodilator nebulizer treatments; symptomatic treatment of pneumonia 3. Hyperglycemia; uncontrolled diabetes; we will continue with current regimen of insulin 7030 along with sliding scale; I will add Levemir 10 units subcu daily at bedtime 4. Peripheral neuropathy; continue with Neurontin 100 mg by mouth every morning and 200 mg by mouth daily at bedtime 5. Depression; Cymbalta 30 mg daily DVT prophylaxis; per discretion of surgery CODE STATUS; full code
[2020-04-09 20:36] LABS: Glucose,Whole Blood 165 mg/dL (75-99)
[2020-04-09] MEDS: INSULIN DETEMIR (LEVEMIR) 100 UNIT/ML SYR SQ SCH (20:40)
[2020-04-09] MEDS: TEMAZEPAM 7.5 MG CAP PO PRN (20:40)
[2020-04-10] MEDS: KETOROLAC 15 MG/ML 1 ML VIAL IVP SCH ×4 (05:31→23:06)
[2020-04-10 06:53] LABS: Glucose,Whole Blood 52 mg/dL (75-99)
[2020-04-10 07:10] LABS: Glucose,Whole Blood 56 mg/dL (75-99)
[2020-04-10 07:25] LABS: Glucose,Whole Blood 61 mg/dL (75-99)
[2020-04-10 07:42] LABS: Glucose,Whole Blood 80 mg/dL (75-99)
[2020-04-10] MEDS: INSULN ASP PRT/INSULIN ASPART 100 UNIT/ML 10 ML VIAL SQ SCH ×2 (07:49→16:52)
[2020-04-10] MEDS: INSULIN ASPART (NovoLOG) 100 UNIT/ML VIAL SQ SCH ×4 (07:49→20:15)
[2020-04-10] MEDS: metFORMIN 500 MG TAB PO SCH ×2 (07:50→16:54)
[2020-04-10] MEDS: AZITHROMYCIN 500 MG in SODIUM CHLORIDE 0.9% 250 ML IVPB SCH (08:07)
[2020-04-10] MEDS: SODIUM CHLORIDE 0.9% 1,000 ML IV SCH ×2 (08:09→23:10)
[2020-04-10] MEDS: GABAPENTIN 100 MG CAP PO SCH ×2 (08:09→20:15)
[2020-04-10] MEDS: DULoxetine HCL 30 MG CAPSULE.DR PO SCH (08:09)
[2020-04-10 08:25] LABS: ALT 15 U/L (4-34); AST 34 U/L (14-36); African American GFR (CKD) >90 (>60 ml/min/1.73 sqM); Albumin 2.4 g/dL (3.5-5.0); Alkaline Phosphatase 107 U/L (38-126); Anion Gap 8 mmol/L; Blood Urea Nitrogen 27 mg/dL (7-17); Calcium 8.2 mg/dL (8.4-10.2); Carbon Dioxide 28 mmol/L (22-30); Chloride 104 mmol/L (98-107); Glucose 51 mg/dL (74-99); Non-African American GFR(CKD) >90 (>60 ml/min/1.73 sqM); Potassium 4.5 mmol/L (3.5-5.1); Sodium 140 mmol/L (137-145); Total Bilirubin 0.4 mg/dL (0.2-1.3); Total Protein 5.7 g/dL (6.3-8.2)
[2020-04-10 08:42] LABS: Basophils % (A) 0 %; Eosinophils % (A) 0 %; HCT 35.3 % (34.0-46.0); HGB 10.7 gm/dL (11.4-16.0); Hypochromasia Moderate; Lymphocytes # (A) 1.1 k/uL (1.0-4.8); Lymphocytes % (A) 7 %; MCH 28.6 pg (25.0-35.0); MCHC 30.2 g/dL (31.0-37.0); MCV 94.5 fL (80.0-100.0); Mean Platelet Volume 6.8; Monocytes % (A) 7 %; Neutrophils # (A) 12.9 k/uL (1.3-7.7); Neutrophils % (A) 85 %; Platelet Count 588 k/uL (150-450); RBC 3.74 m/uL (3.80-5.40); RDW 14.1 % (11.5-15.5); WBC 15.3 k/uL (3.8-10.6)
[2020-04-10] MEDS: HYDROcodone/APAP 10-325MG 1 EACH TAB PO PRN ×3 (08:58→21:33)
[2020-04-10] MEDS: PIPERACILLIN-TAZOBACTAM 3.375 GM in SODIUM CHLORIDE 0.9% 100 ML IVPB SCH ×3 (08:59→23:07)
[2020-04-10] MEDS: MORPHINE SULFATE 4 MG/ML SYRINGE IV PRN ×2 (11:23→18:54)
--- NOTE | 2020-04-10 11:26 | P.PN ---
Subjective Progress Note Date: 04/10/20 Principal diagnosis: Acute cholecystitis Patient complains of diarrhea starting this morning. Multiple episodes. T-max 99.1. White blood cell count 15.3. No rectal bleeding or melena. Objective - Vital Signs Vital signs: Vital Signs Temp 98.9 F 04/10/20 00:51 Pulse 76 04/10/20 07:00 Resp 16 04/10/20 07:00 BP 153/89 04/10/20 07:00 Pulse Ox 94 L 04/10/20 07:00 Intake & Output 04/09/20 04/10/20 04/10/20 18:59 06:59 18:59 Intake Total 1020 200 Balance 1020 200 Intake: Intake, IV Titration 480 Amount Sodium Chloride 0.9% 1, 480 000 ml @ 80 mls/hr IV . [id number] [facility] Rx#:[id number] Oral 540 200 Other: Voiding Method Toilet Toilet # Voids 1 1 # Bowel Movements 5 - Exam Abdomen: Soft, nondistended, mild tenderness at incision sites, incisions clean and dry - Labs CBC & Chem 7: 04/10/20 07:12 04/10/20 07:12 Labs: Abnormal Lab Results - Last 24 Hours (Table) 04/09/20 04/09/20 04/09/20 Range/Units 07:39 11:38 16:54 WBC (3.8-10.6) k/uL RBC (3.80-5.40) m/uL Hgb (11.4-16.0) gm/dL MCHC (31.0-37.0) g/dL Plt Count (150-450) k/uL Neutrophils # (1.3-7.7) k/uL BUN (7-17) mg/dL Creatinine (0.52-1.04) mg/dL Glucose (74-99) mg/dL POC Glucose (mg/dL) 111 H 176 H (75-99) mg/dL Calcium (8.4-10.2) mg/dL Total Protein (6.3-8.2) g/dL Albumin (3.5-5.0) g/dL Procalcitonin 1.66 H (0.02-0.09) ng/mL 04/09/20 04/10/20 04/10/20 Range/Units 20:26 06:52 07:09 WBC (3.8-10.6) k/uL RBC (3.80-5.40) m/uL Hgb (11.4-16.0) gm/dL MCHC (31.0-37.0) g/dL Plt Count (150-450) k/uL Neutrophils # (1.3-7.7) k/uL BUN (7-17) mg/dL Creatinine (0.52-1.04) mg/dL Glucose (74-99) mg/dL POC Glucose (mg/dL) 165 H 52 L 56 L (75-99) mg/dL Calcium (8.4-10.2) mg/dL Total Protein (6.3-8.2) g/dL Albumin (3.5-5.0) g/dL Procalcitonin (0.02-0.09) ng/mL 04/10/20 04/10/20 04/10/20 Range/Units 07:12 07:12 07:24 WBC 15.3 H (3.8-10.6) k/uL RBC 3.74 L (3.80-5.40) m/uL Hgb 10.7 L (11.4-16.0) gm/dL MCHC 30.2 L (31.0-37.0) g/dL Plt Count 588 H (150-450) k/uL Neutrophils # 12.9 H (1.3-7.7) k/uL BUN 27 H (7-17) mg/dL Creatinine 0.40 L (0.52-1.04) mg/dL Glucose 51 L (74-99) mg/dL POC Glucose (mg/dL) 61 L (75-99) mg/dL Calcium 8.2 L (8.4-10.2) mg/dL Total Protein 5.7 L (6.3-8.2) g/dL Albumin 2.4 L (3.5-5.0) g/dL Procalcitonin (0.02-0.09) ng/mL Microbiology - Last 24 Hours (Table) 04/07/20 18:12 Blood Culture - Preliminary Blood No Growth after 48 hours Assessment and Plan (1) Acute cholecystitis Narrative/Plan: Patient with worsening diarrhea. Check stool for C. diff. Add colestipol for bile-induced diarrhea. Continue regular diet. Current Visit: Yes Status: Acute Code(s): K81.0 - ACUTE CHOLECYSTITIS SNOMED Code(s): 67384062
[2020-04-10 11:34] VITALS: BMI 17.2
[2020-04-10 11:35] LABS: Glucose,Whole Blood 229 mg/dL (75-99)
--- NOTE | 2020-04-10 14:22 | P.PN ---
Subjective Progress Note Date: 04/10/20 Principal diagnosis: 59-year-old female with a history of known gallbladder disease came to the hospital complaining of 3 days worth of increasing pain right upper quadrant. Pain does radiate to the right side of her back. Some nausea. Patient is diabetic on insulin. Blood sugars have been elevated. White blood cell count was high at 18. Low-grade fever 99.8. Pain persists this morning. Ultrasound showed a distended gallbladder with inflammation and fluid. Underwent recent EGD during a separate hospitalization 1 month ago which showed mild duodenitis and gastritis. Denies rectal bleeding or melena. Liver enzymes are normal except for a slight elevation of alkaline phosphatase. Denies any change in the color of her skin urine or stool. Patient was taken to or this morning and underwent laparoscopic cholecystectomy; internal medicine is consulted for possible right lower lobe and basilar pneumonia On 04/09/2020 patient's white blood count has slightly trended up to 16.2, pro- calcitonin of 2.27 and an elevated CRP; patient is currently on IV Zosyn and janel thromycin; recommending palm consult if patient doesn't improve in next 24 hours Blood sugars show marked improvement with addition of 10 units of Levemir at bedtime; continue with insulin 7030 04/10/2020 Patient is seen and evaluated and follow-up status post laparoscopic cholecystectomy and is being closely monitored. Following closely with surgery. Patient is maintained on IV antibiotics in the form of azithromycin along with Zosyn and will continue at this time. Patient is experiencing some generalized discomfort in the abdominal area and was noted to have multiple episodes of diarrhea and loose stools. stool was sent for C. diff and analysis and currently pending. Patient is currently maintained on consistent carbohydrate diet and will continue at this time. Patient tolerating diet with no reports of nausea or vomiting noted. Patient denies any chest pain, shortness of breath, or palpitations. Patient has been afebrile. As mentioned previously patient continues to have some generalized discomfort noted in the abdominal region. Will continue to monitor vital signs and labs closely along with blood sugars as she is currently maintained on sliding scale along with long-acting. patient had an episode of a low blood sugar this morning although denies any dizziness, lightheadedness, or diaphoresis. Current blood sugar for lunch is noted at 229. Long acting insulin was held this morning. Discussed with the patient about increasing activity as tolerated. Will continue to follow along closely with surgery. Objective - Vital Signs Vital signs: Vital Signs Temp 98.9 F 04/10/20 00:51 Pulse 76 04/10/20 07:00 Resp 16 04/10/20 07:00 BP 153/89 04/10/20 07:00 Pulse Ox 94 L 04/10/20 07:00 Intake & Output 04/09/20 04/10/20 04/10/20 18:59 06:59 18:59 Intake Total 1020 200 Balance 1020 200 Weight 43.998 kg Intake: Intake, IV Titration 480 Amount Sodium Chloride 0.9% 1, 480 000 ml @ 80 mls/hr IV . [id number] [facility] Rx#:[id number] Oral 540 200 Other: Voiding Method Toilet Toilet # Voids 1 1 # Bowel Movements 5 - Exam Gen: This is a 59-year-old female lying in bed, awake, alert and oriented 3. temp is 98.9F, pulse is 76, respirations are 16, blood pressure is 153/89, oxygen saturation is 94% on room air. HEENT: Head is atraumatic, normocephalic. Pupils equal, round. Sclerae is anicteric. NECK: Supple. No JVD. No lymphadenopathy. No thyromegaly. LUNGS: diminished breath sounds bilaterally with no wheezing or rhonchi noted. No intercostal retractions. HEART: S1, S2 are muffled. ABDOMEN: Soft. Bowel sounds are present. No masses. Mild generalized tenderness noted on palpation. EXTREMITIES: No pedal edema. No calf tenderness. NEUROLOGICAL: Patient is awake, alert and oriented x3. Cranial nerves 2 through 12 are grossly intact. - Labs CBC & Chem 7: 04/10/20 07:12 04/10/20 07:12 Labs: Abnormal Lab Results - Last 24 Hours (Table) 04/09/20 04/09/20 04/09/20 Range/Units 07:39 16:54 20:26 WBC (3.8-10.6) k/uL RBC (3.80-5.40) m/uL Hgb (11.4-16.0) gm/dL MCHC (31.0-37.0) g/dL Plt Count (150-450) k/uL Neutrophils # (1.3-7.7) k/uL BUN (7-17) mg/dL Creatinine (0.52-1.04) mg/dL Glucose (74-99) mg/dL POC Glucose (mg/dL) 176 H 165 H (75-99) mg/dL Calcium (8.4-10.2) mg/dL Total Protein (6.3-8.2) g/dL Albumin (3.5-5.0) g/dL Procalcitonin 1.66 H (0.02-0.09) ng/mL 04/10/20 04/10/20 04/10/20 Range/Units 06:52 07:09 07:12 WBC (3.8-10.6) k/uL RBC (3.80-5.40) m/uL Hgb (11.4-16.0) gm/dL MCHC (31.0-37.0) g/dL Plt Count (150-450) k/uL Neutrophils # (1.3-7.7) k/uL BUN 27 H (7-17) mg/dL Creatinine 0.40 L (0.52-1.04) mg/dL Glucose 51 L (74-99) mg/dL POC Glucose (mg/dL) 52 L 56 L (75-99) mg/dL Calcium 8.2 L (8.4-10.2) mg/dL Total Protein 5.7 L (6.3-8.2) g/dL Albumin 2.4 L (3.5-5.0) g/dL Procalcitonin (0.02-0.09) ng/mL 04/10/20 04/10/20 04/10/20 Range/Units 07:12 07:24 11:34 WBC 15.3 H (3.8-10.6) k/uL RBC 3.74 L (3.80-5.40) m/uL Hgb 10.7 L (11.4-16.0) gm/dL MCHC 30.2 L (31.0-37.0) g/dL Plt Count 588 H (150-450) k/uL Neutrophils # 12.9 H (1.3-7.7) k/uL BUN (7-17) mg/dL Creatinine (0.52-1.04) mg/dL Glucose (74-99) mg/dL POC Glucose (mg/dL) 61 L 229 H (75-99) mg/dL Calcium (8.4-10.2) mg/dL Total Protein (6.3-8.2) g/dL Albumin (3.5-5.0) g/dL Procalcitonin (0.02-0.09) ng/mL Microbiology - Last 24 Hours (Table) 04/07/20 18:12 Blood Culture - Preliminary Blood No Growth after 48 hours Assessment and Plan Assessment: acute cholecystitis, status post laparoscopic cholecystectomy Right lower lobe/basilar pneumonia Mild leukocytosis possibly secondary to above Hyperglycemia with uncontrolled diabetes Peripheral neuropathy History of depression DVT prophylaxis full code Commendations and discussion: Recommend continue current medications, management, and symptomatic treatment. Will continue to follow along closely with surgery. Recommend continuing current antibiotics at this time. C. diff is currently pending as patient had multiple episodes of loose stools noted. We'll continue with sliding scale along with long-acting insulin and continue to monitor blood sugars closely and treat accordingly. Discussed with the patient about increasing activity as tolerated. PT/OT to evaluate the patient for possible placement in a social work consult was placed. When discussing with patient about discharge planning patient's plan is to return home once stabilized and discharged. Further recommendations to follow.
[2020-04-10] MEDS: CHOLESTYRAMINE (WITH SUGAR) 4 GM PACKET PO SCH ×3 (15:36→17:01)
[2020-04-10 16:39] LABS: Glucose,Whole Blood 196 mg/dL (75-99)
[2020-04-10 19:48] LABS: Hemoglobin A1C 9.4 % (4.0-6.0)
[2020-04-10 20:13] LABS: Glucose,Whole Blood 280 mg/dL (75-99)
[2020-04-10] MEDS: INSULIN DETEMIR (LEVEMIR) 100 UNIT/ML SYR SQ SCH (20:15)
[2020-04-10] MEDS: TEMAZEPAM 7.5 MG CAP PO PRN (21:33)
[2020-04-11 03:06] LABS: Glucose,Whole Blood 251 mg/dL (75-99)
[2020-04-11] MEDS: MORPHINE SULFATE 4 MG/ML SYRINGE IV PRN (03:07)
[2020-04-11] MEDS: KETOROLAC 15 MG/ML 1 ML VIAL IVP SCH ×4 (05:00→22:54)
[2020-04-11 07:09] LABS: Glucose,Whole Blood 221 mg/dL (75-99)
[2020-04-11] MEDS: INSULN ASP PRT/INSULIN ASPART 100 UNIT/ML 10 ML VIAL SQ SCH ×2 (07:17→16:22)
[2020-04-11] MEDS: GABAPENTIN 100 MG CAP PO SCH ×2 (07:17→20:39)
[2020-04-11] MEDS: DULoxetine HCL 30 MG CAPSULE.DR PO SCH (07:17)
[2020-04-11] MEDS: metFORMIN 500 MG TAB PO SCH ×2 (07:17→16:21)
[2020-04-11] MEDS: HYDROcodone/APAP 10-325MG 1 EACH TAB PO PRN ×3 (07:17→19:01)
[2020-04-11] MEDS: AZITHROMYCIN 500 MG in SODIUM CHLORIDE 0.9% 250 ML IVPB SCH (07:18)
[2020-04-11] MEDS: INSULIN ASPART (NovoLOG) 100 UNIT/ML VIAL SQ SCH ×4 (07:22→22:46)
[2020-04-11] MEDS: PIPERACILLIN-TAZOBACTAM 3.375 GM in SODIUM CHLORIDE 0.9% 100 ML IVPB SCH ×3 (08:52→22:54)
[2020-04-11] MEDS: SODIUM CHLORIDE 0.9% 1,000 ML IV SCH ×2 (08:53→22:47)
[2020-04-11] MEDS: CHOLESTYRAMINE (WITH SUGAR) 4 GM PACKET PO SCH ×3 (08:55→16:21)
[2020-04-11 11:33] LABS: Basophils # (A) 0.1 k/uL (0-0.2); Basophils % (A) 0 %; Eosinophils # (A) 0.2 k/uL (0-0.7); Eosinophils % (A) 2 %; HCT 34.9 % (34.0-46.0); HGB 10.4 gm/dL (11.4-16.0); Hypochromasia Moderate; Lymphocytes # (A) 0.9 k/uL (1.0-4.8); Lymphocytes % (A) 7 %; MCH 28.5 pg (25.0-35.0); MCHC 29.9 g/dL (31.0-37.0); MCV 95.3 fL (80.0-100.0); Mean Platelet Volume 6.8; Monocytes # (A) 0.7 k/uL (0-1.0); Monocytes % (A) 5 %; Neutrophils # (A) 11.8 k/uL (1.3-7.7); Neutrophils % (A) 86 %; Platelet Count 617 k/uL (150-450); RBC 3.67 m/uL (3.80-5.40); RDW 14.2 % (11.5-15.5); WBC 13.8 k/uL (3.8-10.6)
[2020-04-11 11:37] LABS: African American GFR (CKD) >90 (>60 ml/min/1.73 sqM); Anion Gap 7 mmol/L; Blood Urea Nitrogen 18 mg/dL (7-17); Calcium 8.1 mg/dL (8.4-10.2); Carbon Dioxide 28 mmol/L (22-30); Chloride 102 mmol/L (98-107); Glucose 160 mg/dL (74-99); Non-African American GFR(CKD) >90 (>60 ml/min/1.73 sqM); Potassium 4.2 mmol/L (3.5-5.1); Sodium 137 mmol/L (137-145)
[2020-04-11 11:50] LABS: Glucose,Whole Blood 199 mg/dL (75-99)
--- NOTE | 2020-04-11 13:54 | P.PN ---
Subjective Progress Note Date: 04/11/20 Principal diagnosis: 59-year-old female with a history of known gallbladder disease came to the hospital complaining of 3 days worth of increasing pain right upper quadrant. Pain does radiate to the right side of her back. Some nausea. Patient is diabetic on insulin. Blood sugars have been elevated. White blood cell count was high at 18. Low-grade fever 99.8. Pain persists this morning. Ultrasound showed a distended gallbladder with inflammation and fluid. Underwent recent EGD during a separate hospitalization 1 month ago which showed mild duodenitis and gastritis. Denies rectal bleeding or melena. Liver enzymes are normal except for a slight elevation of alkaline phosphatase. Denies any change in the color of her skin urine or stool. Patient was taken to or this morning and underwent laparoscopic cholecystectomy; internal medicine is consulted for possible right lower lobe and basilar pneumonia On 04/09/2020 patient's white blood count has slightly trended up to 16.2, pro- calcitonin of 2.27 and an elevated CRP; patient is currently on IV Zosyn and janel thromycin; recommending palm consult if patient doesn't improve in next 24 hours Blood sugars show marked improvement with addition of 10 units of Levemir at bedtime; continue with insulin 7030 04/10/2020 Patient is seen and evaluated and follow-up status post laparoscopic cholecystectomy and is being closely monitored. Following closely with surgery. Patient is maintained on IV antibiotics in the form of azithromycin along with Zosyn and will continue at this time. Patient is experiencing some generalized discomfort in the abdominal area and was noted to have multiple episodes of diarrhea and loose stools. stool was sent for C. diff and analysis and currently pending. Patient is currently maintained on consistent carbohydrate diet and will continue at this time. Patient tolerating diet with no reports of nausea or vomiting noted. Patient denies any chest pain, shortness of breath, or palpitations. Patient has been afebrile. As mentioned previously patient continues to have some generalized discomfort noted in the abdominal region. Will continue to monitor vital signs and labs closely along with blood sugars as she is currently maintained on sliding scale along with long-acting. patient had an episode of a low blood sugar this morning although denies any dizziness, lightheadedness, or diaphoresis. Current blood sugar for lunch is noted at 229. Long acting insulin was held this morning. Discussed with the patient about increasing activity as tolerated. Will continue to follow along closely with surgery. 04/11/2020 Patient is seen and evaluated and follow-up recently underwent cholecystectomy. Patient was having multiple episodes of diarrhea with none reported today and C. diff testing was negative. Patient is maintained on IV antibiotics in the form of azithromycin and Zosyn per surgery. Patient continues to have some abdominal and generalized discomfort although has been getting up to the bathroom and commode. Patient is tolerating diet with no reports of nausea or vomiting noted. Repeat labs within normal limits. White blood count trending down at 13.8 with a hemoglobin of 10.4. Will continue to follow closely with surgery. Review of systems: Constitutional: No reports of fatigue, fever, or chills Cardiovascular: No reports of chest pain or palpitations Respiratory: No reports of shortness of breath or cough GI: No reports of nausea, vomiting, or diarrhea, reports mild abdominal discomfort : No reports of dysuria or retention Neurovascular: Reports mild generalized weakness with no reports of numbness All medications have been reviewed Objective - Vital Signs Vital signs: Vital Signs Temp 98.4 F 04/11/20 07:00 Pulse 94 04/11/20 07:00 Resp 18 04/11/20 07:00 BP 138/80 04/11/20 07:00 Pulse Ox 93 L 04/11/20 07:00 Intake & Output 04/10/20 04/11/20 04/11/20 18:59 06:59 18:59 Intake Total 862 870 Balance 862 870 Weight 43.998 kg Intake: Intake, IV Titration 640 670 Amount Azithromycin 500 mg In 250 Sodium Chloride 0.9% 250 ml @ 250 mls/hr IVPB DAILY [facility] Rx#:[id number] Piperacillin-Tazobactam 3 100 .375 gm In Sodium Chloride 0.9% 100 ml @ 25 mls/hr IVPB Q8HR [facility] Rx# :[id number] Sodium Chloride 0.9% 1, 640 320 000 ml @ 80 mls/hr IV . [id number] [facility] Rx#:[id number] Oral 222 200 Other: Voiding Method Toilet Toilet # Voids 2 1 # Bowel Movements 5 1 - Exam Gen: This is a 59-year-old female sitting up in bed, awake, alert and oriented 3. HEENT: Head is atraumatic, normocephalic. Pupils equal, round. Sclerae is anicteric. NECK: Supple. No JVD. No lymphadenopathy. No thyromegaly. LUNGS: diminished breath sounds bilaterally with no wheezing or rhonchi noted. No intercostal retractions. HEART: S1, S2 are muffled. ABDOMEN: Soft. Bowel sounds are present. No masses. Mild generalized tenderness noted on palpation. EXTREMITIES: No pedal edema. No calf tenderness. NEUROLOGICAL: Patient is awake, alert and oriented x3. Cranial nerves 2 through 12 are grossly intact. - Labs CBC & Chem 7: 04/11/20 10:30 04/11/20 10:30 Labs: Abnormal Lab Results - Last 24 Hours (Table) 04/10/20 04/10/20 04/10/20 Range/Units 07:12 16:38 20:08 WBC (3.8-10.6) k/uL RBC (3.80-5.40) m/uL Hgb (11.4-16.0) gm/dL MCHC (31.0-37.0) g/dL Plt Count (150-450) k/uL Neutrophils # (1.3-7.7) k/uL Lymphocytes # (1.0-4.8) k/uL BUN (7-17) mg/dL Creatinine (0.52-1.04) mg/dL Glucose (74-99) mg/dL POC Glucose (mg/dL) 196 H 280 H (75-99) mg/dL Hemoglobin A1c 9.4 H (4.0-6.0) % Calcium (8.4-10.2) mg/dL 04/11/20 04/11/20 04/11/20 Range/Units 03:03 06:50 10:30 WBC 13.8 H (3.8-10.6) k/uL RBC 3.67 L (3.80-5.40) m/uL Hgb 10.4 L (11.4-16.0) gm/dL MCHC 29.9 L (31.0-37.0) g/dL Plt Count 617 H (150-450) k/uL Neutrophils # 11.8 H (1.3-7.7) k/uL Lymphocytes # 0.9 L (1.0-4.8) k/uL BUN (7-17) mg/dL Creatinine (0.52-1.04) mg/dL Glucose (74-99) mg/dL POC Glucose (mg/dL) 251 H 221 H (75-99) mg/dL Hemoglobin A1c (4.0-6.0) % Calcium (8.4-10.2) mg/dL 04/11/20 04/11/20 Range/Units 10:30 11:31 WBC (3.8-10.6) k/uL RBC (3.80-5.40) m/uL Hgb (11.4-16.0) gm/dL MCHC (31.0-37.0) g/dL Plt Count (150-450) k/uL Neutrophils # (1.3-7.7) k/uL Lymphocytes # (1.0-4.8) k/uL BUN 18 H (7-17) mg/dL Creatinine 0.35 L (0.52-1.04) mg/dL Glucose 160 H (74-99) mg/dL POC Glucose (mg/dL) 199 H (75-99) mg/dL Hemoglobin A1c (4.0-6.0) % Calcium 8.1 L (8.4-10.2) mg/dL Microbiology - Last 24 Hours (Table) 04/07/20 18:12 Blood Culture - Preliminary Blood No Growth after 72 hours Assessment and Plan Assessment: acute cholecystitis, status post laparoscopic cholecystectomy Right lower lobe/basilar pneumonia Mild leukocytosis possibly secondary to above Hyperglycemia with uncontrolled diabetes Peripheral neuropathy History of depression DVT prophylaxis full code Commendations and discussion: Recommend continue current medications, management, and symptomatic treatment. Will continue to follow along closely with surgery. Recommend continuing current antibiotics at this time. No recent reported bouts of diarrhea and C. diff testing was negative. We'll continue with sliding scale along with long- acting insulin and continue to monitor blood sugars closely and treat accordingly. Discussed with the patient about increasing activity as tolerated. When discussing with patient about discharge planning patient's plan is to return home once stabilized and discharged. Further recommendations to follow. Possible discharge in 24 hours.
--- NOTE | 2020-04-11 16:02 | P.PN ---
Subjective Progress Note Date: 04/11/20 Principal diagnosis: Acute cholecystitis Patient still having diarrhea although somewhat better. Mild pain today. Low- grade fever 99.3. White blood cell count 13.8. Tolerating diet. Objective - Vital Signs Vital signs: Vital Signs Temp 98.4 F 04/11/20 07:00 Pulse 94 04/11/20 07:00 Resp 18 04/11/20 07:00 BP 138/80 04/11/20 07:00 Pulse Ox 93 L 04/11/20 07:00 Intake & Output 04/10/20 04/11/20 04/11/20 18:59 06:59 18:59 Intake Total 862 870 Balance 862 870 Weight 43.998 kg Intake: Intake, IV Titration 640 670 Amount Azithromycin 500 mg In 250 Sodium Chloride 0.9% 250 ml @ 250 mls/hr IVPB DAILY [facility] Rx#:[id number] Piperacillin-Tazobactam 3 100 .375 gm In Sodium Chloride 0.9% 100 ml @ 25 mls/hr IVPB Q8HR [facility] Rx# :[id number] Sodium Chloride 0.9% 1, 640 320 000 ml @ 80 mls/hr IV . [id number] [facility] Rx#:[id number] Oral 222 200 Other: Voiding Method Toilet Toilet # Voids 2 1 # Bowel Movements 5 1 - Exam Abdomen: Soft, nondistended, mild tenderness, incisions clean and dry - Labs CBC & Chem 7: 04/11/20 10:30 04/11/20 10:30 Labs: Abnormal Lab Results - Last 24 Hours (Table) 04/10/20 04/10/20 04/10/20 Range/Units 07:12 16:38 20:08 WBC (3.8-10.6) k/uL RBC (3.80-5.40) m/uL Hgb (11.4-16.0) gm/dL MCHC (31.0-37.0) g/dL Plt Count (150-450) k/uL Neutrophils # (1.3-7.7) k/uL Lymphocytes # (1.0-4.8) k/uL BUN (7-17) mg/dL Creatinine (0.52-1.04) mg/dL Glucose (74-99) mg/dL POC Glucose (mg/dL) 196 H 280 H (75-99) mg/dL Hemoglobin A1c 9.4 H (4.0-6.0) % Calcium (8.4-10.2) mg/dL 04/11/20 04/11/20 04/11/20 Range/Units 03:03 06:50 10:30 WBC 13.8 H (3.8-10.6) k/uL RBC 3.67 L (3.80-5.40) m/uL Hgb 10.4 L (11.4-16.0) gm/dL MCHC 29.9 L (31.0-37.0) g/dL Plt Count 617 H (150-450) k/uL Neutrophils # 11.8 H (1.3-7.7) k/uL Lymphocytes # 0.9 L (1.0-4.8) k/uL BUN (7-17) mg/dL Creatinine (0.52-1.04) mg/dL Glucose (74-99) mg/dL POC Glucose (mg/dL) 251 H 221 H (75-99) mg/dL Hemoglobin A1c (4.0-6.0) % Calcium (8.4-10.2) mg/dL 04/11/20 04/11/20 Range/Units 10:30 11:31 WBC (3.8-10.6) k/uL RBC (3.80-5.40) m/uL Hgb (11.4-16.0) gm/dL MCHC (31.0-37.0) g/dL Plt Count (150-450) k/uL Neutrophils # (1.3-7.7) k/uL Lymphocytes # (1.0-4.8) k/uL BUN 18 H (7-17) mg/dL Creatinine 0.35 L (0.52-1.04) mg/dL Glucose 160 H (74-99) mg/dL POC Glucose (mg/dL) 199 H (75-99) mg/dL Hemoglobin A1c (4.0-6.0) % Calcium 8.1 L (8.4-10.2) mg/dL Microbiology - Last 24 Hours (Table) 04/07/20 18:12 Blood Culture - Preliminary Blood No Growth after 72 hours Assessment and Plan (1) Acute cholecystitis Narrative/Plan: Overall patient improving. Add Imodium to the cholestyramine. Ambulate. Anticipate discharge tomorrow. Current Visit: Yes Status: Acute Code(s): K81.0 - ACUTE CHOLECYSTITIS SNOMED Code(s): 31625266
[2020-04-11] MEDS: LOPERAMIDE 2 MG CAP PO SCH ×2 (16:21→20:39)
[2020-04-11 16:53] LABS: Glucose,Whole Blood 110 mg/dL (75-99)
[2020-04-11 19:55] LABS: Glucose,Whole Blood 59 mg/dL (75-99)
[2020-04-11 20:17] LABS: Glucose,Whole Blood 59 mg/dL (75-99)
[2020-04-11 20:34] LABS: Glucose,Whole Blood 54 mg/dL (75-99)
[2020-04-11] MEDS: TEMAZEPAM 7.5 MG CAP PO PRN (20:38)
[2020-04-11 20:52] LABS: Glucose,Whole Blood 65 mg/dL (75-99)
[2020-04-11 21:11] LABS: Glucose,Whole Blood 62 mg/dL (75-99)
[2020-04-11 21:32] LABS: Glucose,Whole Blood 87 mg/dL (75-99)
[2020-04-11] MEDS: INSULIN DETEMIR (LEVEMIR) 100 UNIT/ML SYR SQ SCH (22:47)
[2020-04-12] MEDS: HYDROcodone/APAP 10-325MG 1 EACH TAB PO PRN ×3 (00:42→11:08)
[2020-04-12 01:54] LABS: Glucose,Whole Blood 139 mg/dL (75-99)
[2020-04-12] MEDS: KETOROLAC 15 MG/ML 1 ML VIAL IVP SCH ×2 (05:02→15:31)
[2020-04-12 06:44] LABS: Glucose,Whole Blood 178 mg/dL (75-99)
[2020-04-12] MEDS: metFORMIN 500 MG TAB PO SCH (07:17)
[2020-04-12] MEDS: LOPERAMIDE 2 MG CAP PO SCH ×2 (07:17→15:32)
[2020-04-12] MEDS: INSULIN ASPART (NovoLOG) 100 UNIT/ML VIAL SQ SCH ×2 (07:18→15:31)
[2020-04-12] MEDS: GABAPENTIN 100 MG CAP PO SCH (07:18)
[2020-04-12] MEDS: AZITHROMYCIN 500 MG in SODIUM CHLORIDE 0.9% 250 ML IVPB SCH (07:20)
[2020-04-12] MEDS: DULoxetine HCL 30 MG CAPSULE.DR PO SCH (07:21)
[2020-04-12 07:33] VITALS: BP 134/72; PULSE 96; RESP 18; TEMP 99.3
[2020-04-12] MEDS: INSULN ASP PRT/INSULIN ASPART 100 UNIT/ML 10 ML VIAL SQ SCH (08:14)
[2020-04-12] MEDS: PIPERACILLIN-TAZOBACTAM 3.375 GM in SODIUM CHLORIDE 0.9% 100 ML IVPB SCH (10:01)
[2020-04-12 10:12] LABS: Basophils # (A) 0.1 k/uL (0-0.2); Basophils % (A) 0 %; Eosinophils # (A) 0.5 k/uL (0-0.7); Eosinophils % (A) 3 %; HGB 10.5 gm/dL (11.4-16.0); Hypochromasia Moderate; Lymphocytes # (A) 0.9 k/uL (1.0-4.8); Lymphocytes % (A) 6 %; MCH 28.4 pg (25.0-35.0); MCHC 30.1 g/dL (31.0-37.0); MCV 94.4 fL (80.0-100.0); Monocytes # (A) 0.6 k/uL (0-1.0); Monocytes % (A) 4 %; Neutrophils # (A) 13.9 k/uL (1.3-7.7); Neutrophils % (A) 87 %; Platelet Count 676 k/uL (150-450); RBC 3.71 m/uL (3.80-5.40); RDW 14.2 % (11.5-15.5); WBC 16.1 k/uL (3.8-10.6)
[2020-04-12 11:19] LABS: Glucose,Whole Blood 189 mg/dL (75-99)
--- NOTE | 2020-04-12 11:36 | P.PN ---
Subjective Progress Note Date: 04/12/20 Principal diagnosis: Acute cholecystitis Patient doing fairly well today. Pain is improved. Denies shortness of breath or cough. Her white blood cell count has increased slightly. Diarrhea is improved. Objective - Vital Signs Vital signs: Vital Signs Temp 99.3 F 04/12/20 07:00 Pulse 96 04/12/20 07:00 Resp 18 04/12/20 07:00 BP 134/72 04/12/20 07:00 Pulse Ox 94 L 04/12/20 07:00 Intake & Output 04/11/20 04/12/20 04/12/20 18:59 06:59 18:59 Intake Total 870 Balance 870 Intake: Intake, IV Titration 670 Amount Azithromycin 500 mg In 250 Sodium Chloride 0.9% 250 ml @ 250 mls/hr IVPB DAILY [facility] Rx#:[id number] Piperacillin-Tazobactam 3 100 .375 gm In Sodium Chloride 0.9% 100 ml @ 25 mls/hr IVPB Q8HR [facility] Rx# :[id number] Sodium Chloride 0.9% 1, 320 000 ml @ 80 mls/hr IV . [id number] [facility] Rx#:[id number] Oral 200 Other: Voiding Method Toilet Toilet # Voids 2 # Bowel Movements 2 - Exam Abdomen: Soft, nondistended, minimal tenderness, incisions clean and dry - Labs CBC & Chem 7: 04/12/20 08:23 04/11/20 10:30 Labs: Abnormal Lab Results - Last 24 Hours (Table) 04/11/20 04/11/20 04/11/20 Range/Units 10:30 11:31 16:50 WBC (3.8-10.6) k/uL RBC (3.80-5.40) m/uL Hgb (11.4-16.0) gm/dL MCHC (31.0-37.0) g/dL Plt Count (150-450) k/uL Neutrophils # (1.3-7.7) k/uL Lymphocytes # (1.0-4.8) k/uL BUN 18 H (7-17) mg/dL Creatinine 0.35 L (0.52-1.04) mg/dL Glucose 160 H (74-99) mg/dL POC Glucose (mg/dL) 199 H 110 H (75-99) mg/dL Calcium 8.1 L (8.4-10.2) mg/dL 04/11/20 04/11/20 04/11/20 Range/Units 19:53 20:15 20:32 WBC (3.8-10.6) k/uL RBC (3.80-5.40) m/uL Hgb (11.4-16.0) gm/dL MCHC (31.0-37.0) g/dL Plt Count (150-450) k/uL Neutrophils # (1.3-7.7) k/uL Lymphocytes # (1.0-4.8) k/uL BUN (7-17) mg/dL Creatinine (0.52-1.04) mg/dL Glucose (74-99) mg/dL POC Glucose (mg/dL) 59 L 59 L 54 L (75-99) mg/dL Calcium (8.4-10.2) mg/dL 04/11/20 04/11/20 04/12/20 Range/Units 20:51 21:10 01:54 WBC (3.8-10.6) k/uL RBC (3.80-5.40) m/uL Hgb (11.4-16.0) gm/dL MCHC (31.0-37.0) g/dL Plt Count (150-450) k/uL Neutrophils # (1.3-7.7) k/uL Lymphocytes # (1.0-4.8) k/uL BUN (7-17) mg/dL Creatinine (0.52-1.04) mg/dL Glucose (74-99) mg/dL POC Glucose (mg/dL) 65 L 62 L 139 H (75-99) mg/dL Calcium (8.4-10.2) mg/dL 04/12/20 04/12/20 04/12/20 Range/Units 06:41 08:23 11:17 WBC 16.1 H (3.8-10.6) k/uL RBC 3.71 L (3.80-5.40) m/uL Hgb 10.5 L (11.4-16.0) gm/dL MCHC 30.1 L (31.0-37.0) g/dL Plt Count 676 H (150-450) k/uL Neutrophils # 13.9 H (1.3-7.7) k/uL Lymphocytes # 0.9 L (1.0-4.8) k/uL BUN (7-17) mg/dL Creatinine (0.52-1.04) mg/dL Glucose (74-99) mg/dL POC Glucose (mg/dL) 178 H 189 H (75-99) mg/dL Calcium (8.4-10.2) mg/dL Microbiology - Last 24 Hours (Table) 04/07/20 18:12 Blood Culture - Preliminary Blood No Growth after 96 hours Assessment and Plan (1) Acute cholecystitis Narrative/Plan: Overall patient doing fairly well. Will check chest x-ray for follow-up of right-sided infiltrate. Possible discharge if cleared by medicine. Current Visit: Yes Status: Acute Code(s): K81.0 - ACUTE CHOLECYSTITIS SNOMED Code(s): 52653862
--- NOTE | 2020-04-12 12:26 | XR ---
EXAMINATION TYPE: XR chest 2V DATE OF EXAM: 04/12/2020 COMPARISON: 03/13/2020 TECHNIQUE: PA and lateral views submitted. HISTORY: Right-sided infiltrate follow-up FINDINGS: There is persistent right-sided consolidation and pleural effusion similar to the prior exam. Subsegm ental changes seen at the left lung base with small effusion. No pneumothorax. Biapical pleural thick ening. Heart size normal. IMPRESSION: 1. Persistent right lower lobe consolidation and small effusion similar in appearance to the prior ex am. 2. There now is a tiny left pleural effusion with basilar consolidation correlate clinically.
--- NOTE | 2020-04-12 14:09 | P.PN ---
Subjective Progress Note Date: 04/12/20 Principal diagnosis: 59-year-old female with a history of known gallbladder disease came to the hospital complaining of 3 days worth of increasing pain right upper quadrant. Pain does radiate to the right side of her back. Some nausea. Patient is diabetic on insulin. Blood sugars have been elevated. White blood cell count was high at 18. Low-grade fever 99.8. Pain persists this morning. Ultrasound showed a distended gallbladder with inflammation and fluid. Underwent recent EGD during a separate hospitalization 1 month ago which showed mild duodenitis and gastritis. Denies rectal bleeding or melena. Liver enzymes are normal except for a slight elevation of alkaline phosphatase. Denies any change in the color of her skin urine or stool. Patient was taken to or this morning and underwent laparoscopic cholecystectomy; internal medicine is consulted for possible right lower lobe and basilar pneumonia On 04/09/2020 patient's white blood count has slightly trended up to 16.2, pro- calcitonin of 2.27 and an elevated CRP; patient is currently on IV Zosyn and janel thromycin; recommending palm consult if patient doesn't improve in next 24 hours Blood sugars show marked improvement with addition of 10 units of Levemir at bedtime; continue with insulin 7030 04/10/2020 Patient is seen and evaluated and follow-up status post laparoscopic cholecystectomy and is being closely monitored. Following closely with surgery. Patient is maintained on IV antibiotics in the form of azithromycin along with Zosyn and will continue at this time. Patient is experiencing some generalized discomfort in the abdominal area and was noted to have multiple episodes of diarrhea and loose stools. stool was sent for C. diff and analysis and currently pending. Patient is currently maintained on consistent carbohydrate diet and will continue at this time. Patient tolerating diet with no reports of nausea or vomiting noted. Patient denies any chest pain, shortness of breath, or palpitations. Patient has been afebrile. As mentioned previously patient continues to have some generalized discomfort noted in the abdominal region. Will continue to monitor vital signs and labs closely along with blood sugars as she is currently maintained on sliding scale along with long-acting. patient had an episode of a low blood sugar this morning although denies any dizziness, lightheadedness, or diaphoresis. Current blood sugar for lunch is noted at 229. Long acting insulin was held this morning. Discussed with the patient about increasing activity as tolerated. Will continue to follow along closely with surgery. 04/11/2020 Patient is seen and evaluated and follow-up recently underwent cholecystectomy. Patient was having multiple episodes of diarrhea with none reported today and C. diff testing was negative. Patient is maintained on IV antibiotics in the form of azithromycin and Zosyn per surgery. Patient continues to have some abdominal and generalized discomfort although has been getting up to the bathroom and commode. Patient is tolerating diet with no reports of nausea or vomiting noted. Repeat labs within normal limits. White blood count trending down at 13.8 with a hemoglobin of 10.4. Will continue to follow closely with surgery. Review of systems: Constitutional: No reports of fatigue, fever, or chills Cardiovascular: No reports of chest pain or palpitations Respiratory: No reports of shortness of breath or cough GI: No reports of nausea, vomiting, or diarrhea, reports mild abdominal discomfort : No reports of dysuria or retention Neurovascular: Reports mild generalized weakness with no reports of numbness All medications have been reviewed 04/12/2020 Patient is seen and evaluated and follow-up with no acute overnight issues. Patient is having less diarrhea today. Patient to continue with Imodium and Questran. Patient did have a low-grade temp of 99.4 and elevated white blood count at 16.1 and a chest x-ray was ordered. Chest x-ray shows a persistent right lower lobe consolidation and pleural effusion similar to prior exam. Incentive spirometer has been ordered and patient instructed to continue using at least 10 times every hour while awake. Patient also instructed to increase activity as tolerated as she has been mostly laying in bed. Patient is maintained on IV antibiotics and we'll transition to oral antibiotics upon discharge. Patient to follow-up with surgery along with primary care provider in the outpatient setting. Currently patient denies any chest pain, shortness of breath, or palpitations. Patient is afebrile. No reports of nausea or vomiting and patient has been tolerating diet. Patient is medically stable for discharge today. Objective - Vital Signs Vital signs: Vital Signs Temp 99.3 F 04/12/20 07:00 Pulse 96 04/12/20 07:00 Resp 18 04/12/20 07:00 BP 134/72 04/12/20 07:00 Pulse Ox 94 L 04/12/20 07:00 Intake & Output 04/11/20 04/12/20 04/12/20 18:59 06:59 18:59 Intake Total 870 Balance 870 Intake: Intake, IV Titration 670 Amount Azithromycin 500 mg In 250 Sodium Chloride 0.9% 250 ml @ 250 mls/hr IVPB DAILY [facility] Rx#:[id number] Piperacillin-Tazobactam 3 100 .375 gm In Sodium Chloride 0.9% 100 ml @ 25 mls/hr IVPB Q8HR [facility] Rx# :[id number] Sodium Chloride 0.9% 1, 320 000 ml @ 80 mls/hr IV . [id number] [facility] Rx#:[id number] Oral 200 Other: Voiding Method Toilet Toilet # Voids 2 # Bowel Movements 2 - Exam Gen: This is a 59-year-old female lying in bed, awake, alert and oriented 3. HEENT: Head is atraumatic, normocephalic. Pupils equal, round. Sclerae is anicteric. NECK: Supple. No JVD. No lymphadenopathy. No thyromegaly. LUNGS: diminished breath sounds bilaterally with no wheezing or rhonchi noted. No intercostal retractions. HEART: S1, S2 are muffled. ABDOMEN: Soft. Bowel sounds are present. No masses. Mild generalized tenderness noted on palpation. EXTREMITIES: No pedal edema. No calf tenderness. NEUROLOGICAL: Patient is awake, alert and oriented x3. Cranial nerves 2 through 12 are grossly intact. - Labs CBC & Chem 7: 04/12/20 08:23 04/11/20 10:30 Labs: Abnormal Lab Results - Last 24 Hours (Table) 04/11/20 04/11/20 04/11/20 Range/Units 10:30 10:30 11:31 WBC 13.8 H (3.8-10.6) k/uL RBC 3.67 L (3.80-5.40) m/uL Hgb 10.4 L (11.4-16.0) gm/dL MCHC 29.9 L (31.0-37.0) g/dL Plt Count 617 H (150-450) k/uL Neutrophils # 11.8 H (1.3-7.7) k/uL Lymphocytes # 0.9 L (1.0-4.8) k/uL BUN 18 H (7-17) mg/dL Creatinine 0.35 L (0.52-1.04) mg/dL Glucose 160 H (74-99) mg/dL POC Glucose (mg/dL) 199 H (75-99) mg/dL Calcium 8.1 L (8.4-10.2) mg/dL 04/11/20 04/11/20 04/11/20 Range/Units 16:50 19:53 20:15 WBC (3.8-10.6) k/uL RBC (3.80-5.40) m/uL Hgb (11.4-16.0) gm/dL MCHC (31.0-37.0) g/dL Plt Count (150-450) k/uL Neutrophils # (1.3-7.7) k/uL Lymphocytes # (1.0-4.8) k/uL BUN (7-17) mg/dL Creatinine (0.52-1.04) mg/dL Glucose (74-99) mg/dL POC Glucose (mg/dL) 110 H 59 L 59 L (75-99) mg/dL Calcium (8.4-10.2) mg/dL 04/11/20 04/11/20 04/11/20 Range/Units 20:32 20:51 21:10 WBC (3.8-10.6) k/uL RBC (3.80-5.40) m/uL Hgb (11.4-16.0) gm/dL MCHC (31.0-37.0) g/dL Plt Count (150-450) k/uL Neutrophils # (1.3-7.7) k/uL Lymphocytes # (1.0-4.8) k/uL BUN (7-17) mg/dL Creatinine (0.52-1.04) mg/dL Glucose (74-99) mg/dL POC Glucose (mg/dL) 54 L 65 L 62 L (75-99) mg/dL Calcium (8.4-10.2) mg/dL 04/12/20 04/12/20 04/12/20 Range/Units 01:54 06:41 08:23 WBC 16.1 H (3.8-10.6) k/uL RBC 3.71 L (3.80-5.40) m/uL Hgb 10.5 L (11.4-16.0) gm/dL MCHC 30.1 L (31.0-37.0) g/dL Plt Count 676 H (150-450) k/uL Neutrophils # 13.9 H (1.3-7.7) k/uL Lymphocytes # 0.9 L (1.0-4.8) k/uL BUN (7-17) mg/dL Creatinine (0.52-1.04) mg/dL Glucose (74-99) mg/dL POC Glucose (mg/dL) 139 H 178 H (75-99) mg/dL Calcium (8.4-10.2) mg/dL 04/12/20 Range/Units 11:17 WBC (3.8-10.6) k/uL RBC (3.80-5.40) m/uL Hgb (11.4-16.0) gm/dL MCHC (31.0-37.0) g/dL Plt Count (150-450) k/uL Neutrophils # (1.3-7.7) k/uL Lymphocytes # (1.0-4.8) k/uL BUN (7-17) mg/dL Creatinine (0.52-1.04) mg/dL Glucose (74-99) mg/dL POC Glucose (mg/dL) 189 H (75-99) mg/dL Calcium (8.4-10.2) mg/dL Microbiology - Last 24 Hours (Table) 04/07/20 18:12 Blood Culture - Preliminary Blood No Growth after 96 hours Assessment and Plan Assessment: acute cholecystitis, status post laparoscopic cholecystectomy Right lower lobe/basilar pneumonia Mild leukocytosis possibly secondary to above Hyperglycemia with uncontrolled diabetes Peripheral neuropathy History of depression DVT prophylaxis full code Plan: Recommend continue current medications, management, and symptomatic treatment. Will continue to follow along closely with surgery. Recommend oral antibiotics upon discharge for a few days to complete the course. Incentive spirometer ordered and patient educated and instructed to continue using at least 10 times every hour while awake. Also instructed increase activity as tolerated as she has been mostly lying in bed. No recent reported bouts of diarrhea and C. diff testing was negative. Further recommendations to follow. Possibility of discharge today.
--- NOTE | 2020-04-12 15:09 | P.DS ---
<Rosalind Jaeger - Last Filed: 04/12/20 14:58> Providers Expected date of discharge: 04/12/20 Hospital Course: Discharge diagnosis 1. Acute cholecystitis status post laparoscopic cholecystectomy Hospital course 59-year-old female with a history of known gallbladder disease came to the hospital complaining of 3 days worth of increasing pain right upper quadrant. Pain does radiate to the right side of her back. Some nausea. White blood cell count was high at 18. Low-grade fever 99.8. Ultrasound showed a distended gallbladder with inflammation and fluid. Liver enzymes are normal except for a slight elevation of alkaline phosphatase. Patient underwent laparoscopic cholecystectomy for acute cholecystitis with Dr. Burns. Patient's pain has improved. She is tolerating diet. Her diarrhea has improved. She is afebrile. White count 16.1. She's up and ambulating. She has a persistent right lower lobe consolidation noted on chest x-ray. Medicine service is following they have cleared her for discharge and have given a prescription for Ceftin for 5 days and recommended the use of incentive spirometer. Patient is stable for discharge. Please refer to chart for any further details. Physician [employer] Analyst note has been reviewed by physician. Signing provider agrees with the documented findings, assessment, and plan of care. Patient Condition at Discharge: Stable Plan - Discharge Summary Discharge Rx Participant: No New Discharge Prescriptions: New Loperamide [Imodium] 2 mg PO QID #30 cap Cefuroxime Axetil [Ceftin] 500 mg PO BID 5 Days #10 tab Cholestyramine (with Sugar) [Questran] 4 gm PO TID #30 packet Continue Acetaminophen [Tylenol] 1,000 mg PO DAILY PRN PRN Reason: Fever And/ Or Pain DULoxetine HCL [Cymbalta] 30 mg PO DAILY Insulin NPH Hum/Reg Insulin Hm [Novolin 70-30 Flexpen] 22 units SQ BID- W/MEALS metFORMIN HCL [Glucophage] 1,000 mg PO Q12H Gabapentin [Neurontin] 100 mg PO QAM #6 cap Gabapentin [Neurontin] 200 mg PO HS #3 cap HYDROcodone/APAP 10-325MG [[place] 10-325] 1 tab PO Q6H PRN #6 tab PRN Reason: Pain Discontinued Temazepam [Restoril] 7.5 mg PO HS PRN PRN Reason: Insomnia Discharge Medication List Acetaminophen [Tylenol] 1,000 mg PO DAILY PRN 03/12/20 [History] DULoxetine HCL [Cymbalta] 30 mg PO DAILY 03/12/20 [History] Insulin NPH Hum/Reg Insulin Hm [Novolin 70-30 Flexpen] 22 units SQ BID-W/MEALS 03/12/20 [History] metFORMIN HCL [Glucophage] 1,000 mg PO Q12H 03/12/20 [History] Cefuroxime Axetil [Ceftin] 500 mg PO BID 5 Days #10 tab 04/12/20 [Rx] Cholestyramine (with Sugar) [Questran] 4 gm PO TID #30 packet 04/12/20 [Rx] Gabapentin [Neurontin] 100 mg PO QAM #6 cap 04/12/20 [Rx] Gabapentin [Neurontin] 200 mg PO HS #3 cap 04/12/20 [Rx] HYDROcodone/APAP 10-325MG [[place] 10-325] 1 tab PO Q6H PRN #6 tab 04/12/20 [Rx] Loperamide [Imodium] 2 mg PO QID #30 cap 04/12/20 [Rx] Follow up Appointment(s)/Referral(s): Hardy Burns MD [Medical Doctor] - 04/19/20 3:10 pm Vince Marcos III, MD [Primary Care Provider] - 04/14/20 10:00 am Patient Instructions/Handouts: Laparoscopic Cholecystectomy (DC) Activity/Diet/Wound Care/Special Instructions: No driving while taking [place] No lifting over 10 pounds You may shower. No soaking or tub baths for 2 weeks Very light activity until you are reevaluated at your follow up appointment with your surgeon Discharge Disposition: HOME SELF-CARE <Hardy Burns - Last Filed: 04/12/20 18:57> Providers Date of admission: 04/07/20 18:46 Attending physician: Hardy Burns Consults: 04/07/20 18:00 Consult Physician Routine Consulting Provider: John Allen Consult Reason/Comments: right lung infiltrate Do you want consulting provider notified?: Yes Primary care physician: Vince Marcos - Discharge Diagnosis(es) (1) Acute cholecystitis Status: Acute Hospital Course: As above. Patient improving clinically. Stable for discharge. Outpatient antibiotics prescribed. Follow-up one week.
[2020-04-12] MEDS: CHOLESTYRAMINE (WITH SUGAR) 4 GM PACKET PO SCH (15:32)
--- NOTE | 2020-04-14 16:27 | CDI ---
Documentation Clarification Form Date: 04/14/20 From: Halley Hutchins CCS Phone: If you have a question about this query, please contact Rae Ramos, Food Safety Scientist at [phone] between 8am and 5pm. Admit Date: 04/07/20 Discharge Date: 04/12/20 Patient Name: Roula Falcon Visit Number: [id number] ATTENTION: The Clinical Documentation Specialists (CDI) and [facility] Coding Staff appreciate your assistance in clarifying documentation. Please respond to the clarification below the line at the bottom and electronically sign. The CDI & [facility] Coding staff will review the response and follow-up if needed. Please note: Queries are made part of the Legal Health Record. If you have any questions, please contact the author of this message via ITS. Dear Dr. Burns, Patient has been described as underweight, poor appetite. History/Risk Factors: DM, Chronic pain, Chronic pancreatitis Clinical Indicators: Underweight, Low albumin, Consuming 25% of meals Labs: Albumin 2.8, 2.4- Total Protein 6.3.5.7 Patients weight is: 43.998 kg Patients height is: 5 ft 3 in Calculated BMI is: 17.2 Treatments: Carbohydrate modified diet, Ensure, Monitor supplement intake Dietary Consult: 04/10/20 In order to capture the severity of condition associated with patient BMI of 17.2, a clinical diagnosis needs to be documented by the physician. Please clarify: Cachexia Underweight Malnutrition Mild Moderate Severe Other Unable to determine _patient with moderate malnutrition MTDD
== END 2020-04-12 16:56 | disposition home or self-care (01) | DRG 417 ==
LOC: EC 16:09 → 1SOBS 18:07 → OBSVTOIN 18:46 → 4SSUR 18:48
PROVIDERS: ADMIT Surgery; ATTEND Surgery
PROC: 0FT44ZZ Resection of Gallbladder, Percutaneous Endoscopic Approach (ICD-10-PCS; principal; 2020-04-08 09:00)
DX: K81.0 Acute cholecystitis (principal); J18.9 Pneumonia, unspecified organism; E44.0 Moderate protein-calorie malnutrition; Z68.1 Body mass index [BMI] 19.9 or less, adult; K86.1 Other chronic pancreatitis; E11.42 Type 2 diabetes mellitus with diabetic polyneuropathy; E11.65 Type 2 diabetes mellitus with hyperglycemia; Z79.4 Long term (current) use of insulin; R00.0 Tachycardia, unspecified; E78.5 Hyperlipidemia, unspecified; G89.4 Chronic pain syndrome; G47.00 Insomnia, unspecified; F32.9 Major depressive disorder, single episode, unspecified; M79.7 Fibromyalgia; R19.7 Diarrhea, unspecified; M51.36 Other intervertebral disc degeneration, lumbar region; R79.82 Elevated C-reactive protein (CRP); Z71.3 Dietary counseling and surveillance; Z79.899 Other long term (current) drug therapy; Z87.440 Personal history of urinary (tract) infections; Z98.890 Other specified postprocedural states; Z98.51 Tubal ligation status; Z87.19 Personal history of other diseases of the digestive system; Z87.891 Personal history of nicotine dependence; Z88.8 Allergy status to other drugs, medicaments and biological substances; Z82.5 Family history of asthma and other chronic lower respiratory diseases; Z80.49 Family history of malignant neoplasm of other genital organs; Z81.1 Family history of alcohol abuse and dependence
CPT/HCPCS: 36415; 71046; 74018; 76705; 80048; 80053; 81003; 83036; 83690; 84145; 85025; 86140; 87040; 87324; 88304; 93005; 96361; 96365; 96375; 96376; 99285

== ENCOUNTER 2020-04-14 09:25 | Inpatient (IN) | payer MEDICARE ==
[2020-04-14 09:44] LABS: Glucose,Whole Blood 70 mg/dL (75-99)
[2020-04-14 09:54] LABS: Glucose,Whole Blood 87 mg/dL (75-99)
[2020-04-14] MEDS ORDERED: SODIUM CHLORIDE 0.9% 1,000 ML IV ONE (09:55)
--- NOTE | 2020-04-14 09:58 | ED ---
General Adult HPI - General Stated complaint: Altered mental Time Seen by Provider: 04/14/20 09:25 Source: patient, RN notes reviewed, old records reviewed - History of Present Illness Initial comments: This a 59-year-old female who is brought in by EMS because the caregiver patient unresponsive. Patient was given an amp of glucose and blood sugar was 40s. Patient also is known to taking some morphine that was not hers so they gave her Narcan that seemed to ring the patient around to status where she was awake but not oriented at all. Patient was nonverbal the whole way in and does not follow any commands. No other history is available this time except for the fact that the caregiver knows she took some morphine that was not hers - Related Data Home Medications Medication Instructions Recorded Confirmed Acetaminophen [Tylenol] 1,000 mg PO DAILY PRN 03/12/20 04/14/20 DULoxetine HCL [Cymbalta] 30 mg PO DAILY 03/12/20 04/14/20 Insulin NPH Hum/Reg Insulin Hm 22 units SQ BID-W/MEALS 03/12/20 04/14/20 [Novolin 70-30 Flexpen] metFORMIN HCL [Glucophage] 1,000 mg PO Q12H 03/12/20 04/14/20 Previous Rx's Medication Instructions Recorded Cefuroxime Axetil [Ceftin] 500 mg PO BID 5 Days #10 tab 04/12/20 Cholestyramine (with Sugar) 4 gm PO TID #30 packet 04/12/20 [Questran] Gabapentin [Neurontin] 100 mg PO QAM #6 cap 04/12/20 Gabapentin [Neurontin] 200 mg PO HS #3 cap 04/12/20 HYDROcodone/APAP 10-325MG [[place] 1 tab PO Q6H PRN #6 tab 04/12/20 10-325] Loperamide [Imodium] 2 mg PO QID #30 cap 04/12/20 Allergies Allergy/AdvReac Type Severity Reaction Status Date / Time pregabalin [From Lyrica] AdvReac Swelling Verified 04/14/20 10:07 trazodone AdvReac Unknown Verified 04/14/20 10:07 Review of Systems ROS Statement: Those systems with pertinent positive or pertinent negative responses have been documented in the HPI. ROS Other: All systems not noted in ROS Statement are negative. Past Medical History Past Medical History: Diabetes Mellitus, Fibromyalgia, Hyperlipidemia Additional Past Medical History / Comment(s): myalgia, myositis, sciatica, chronic pain syndrome, vaginitis, otalgia, fatigue, malaise, UTI, microscopic hematuria, tachycardia, insomnia, lumbago, degenerative disc, colitis History of Any Multi-Drug Resistant Organisms: C-DIFF Date of last positivie culture/infection: February 15 2020 MDRO Source:: stool Past Surgical History: Orthopedic Surgery, Tubal Ligation Additional Past Surgical History / Comment(s): left wrist Past Anesthesia/Blood Transfusion Reactions: No Reported Reaction Past Psychological History: Depression Smoking Status: Former smoker Past Alcohol Use History: None Reported Past Drug Use History: None Reported - Past Family History Mother Family Medical History: Cancer, COPD Additional Family Medical History / Comment(s): cervical cancer Father Additional Family Medical History / Comment(s): etoh abuse General Exam - General Exam Comments Initial Comments: GENERAL: Patient is well-developed and well-nourished. Patient is nontoxic and well- hydrated and is in no acute distress. Patient has profuse diarrhea ENT: Neck is soft and supple. No significant lymphadenopathy is noted. Oropharynx is clear. Moist mucous membranes. Neck has full range of motion without eliciting any pain. EYES: The sclera were anicteric and conjunctiva were pink and moist. Extraocular movements were intact and pupils were equal round and reactive to light. Eyelids were unremarkable. PULMONARY: Patient has diminished breath sounds on the right CARDIOVASCULAR: There is a regular rate and rhythm without any murmurs gallops or rubs. ABDOMEN: Soft and nontender with normal bowel sounds. SKIN: Skin is clear with no lesions or rashes and otherwise unremarkable. NEUROLOGIC: Patient is awake but not oriented and not following even the simplest commands. patient moves all 4 extremities spontaneously but not to command MUSCULOSKELETAL: Normal extremities with adequate strength and full range of motion. LYMPHATICS: No significant lymphadenopathy is noted PSYCHIATRIC: Unable to evaluate Course Vital Signs 04/14/20 04/14/20 04/14/20 10:01 11:00 12:36 Temperature 95 F L 96.9 F L Pulse Rate 96 102 H 123 H Respiratory 16 16 22 Rate Blood Pressure 113/98 147/83 150/92 O2 Sat by Pulse 96 100 92 L Oximetry Medical Decision Making - Medical Decision Making EKG shows normal sinus rhythm at 94 bpm ND interval 246 QRS 76 QT interval 350 Q TC is 447. Patient's EKG shows some inverted T waves in V3 through V6 Chest x-ray shows pleural effusion on the right with infiltrates was not seen on her previous x-ray. Patient was given Rocephin at this time and at this time she was considered to have pneumonia and be septic and this was at 1140 Dr. Lundy was called about the EKG changes as well as elevated troponin. - Lab Data Result diagrams: 04/14/20 10:12 04/14/20 10:12 Lab Results 04/14/20 04/14/20 04/14/20 Range/Units 09:32 09:53 10:12 WBC 15.3 H (3.8-10.6) k/uL RBC 3.64 L (3.80-5.40) m/uL Hgb 10.4 L (11.4-16.0) gm/dL Hct 33.7 L (34.0-46.0) % MCV 92.5 (80.0-100.0) fL MCH 28.5 (25.0-35.0) pg MCHC 30.8 L (31.0-37.0) g/dL RDW 14.5 (11.5-15.5) % Plt Count 724 H (150-450) k/uL Neutrophils % 88 % Lymphocytes % 7 % Monocytes % 3 % Eosinophils % 0 % Basophils % 0 % Neutrophils # 13.4 H (1.3-7.7) k/uL Lymphocytes # 1.1 (1.0-4.8) k/uL Monocytes # 0.5 (0-1.0) k/uL Eosinophils # 0.0 (0-0.7) k/uL Basophils # 0.1 (0-0.2) k/uL Hypochromasia Slight PT (9.0-12.0) sec INR (<1.2) APTT (22.0-30.0) sec Sodium (137-145) mmol/L Potassium (3.5-5.1) mmol/L Chloride (98-107) mmol/L Carbon Dioxide (22-30) mmol/L Anion Gap mmol/L BUN (7-17) mg/dL Creatinine (0.52-1.04) mg/dL Est GFR (CKD-EPI)AfAm (>60 ml/min/1.73 sqM) Est GFR (CKD-EPI)NonAf (>60 ml/min/1.73 sqM) Glucose (74-99) mg/dL POC Glucose (mg/dL) 70 L 87 (75-99) mg/dL POC Glu Biscuit Maker Sarika Mcnally Andrew Plasma Lactic Acid Yan (0.7-2.0) mmol/L Calcium (8.4-10.2) mg/dL Total Bilirubin (0.2-1.3) mg/dL AST (14-36) U/L ALT (4-34) U/L Alkaline Phosphatase (38-126) U/L Ammonia (<30) umol/L Troponin I (0.000-0.034) ng/mL Total Protein (6.3-8.2) g/dL Albumin (3.5-5.0) g/dL Urine Color Urine Appearance (Clear) Urine pH (5.0-8.0) Ur Specific G[place] (1.001-1.035) Urine Protein (Negative) Urine Glucose (UA) (Negative) Urine Ketones (Negative) Urine Blood (Negative) Urine Nitrite (Negative) Urine Bilirubin (Negative) Urine Urobilinogen (<2.0) mg/dL Ur Leukocyte Esterase (Negative) Urine Opiates Screen (NotDetected) Ur Oxycodone Screen (NotDetected) Urine Methadone Screen (NotDetected) Ur Propoxyphene Screen (NotDetected) Ur Barbiturates Screen (NotDetected) U Tricyclic Antidepress (NotDetected) Ur Phencyclidine Scrn (NotDetected) Ur Amphetamines Screen (NotDetected) U Methamphetamines Scrn (NotDetected) U Benzodiazepines Scrn (NotDetected) Urine Cocaine Screen (NotDetected) U Marijuana (THC) Screen (NotDetected) C. difficile (EIA) Intrp (Negative) 04/14/20 04/14/20 04/14/20 Range/Units 10:12 10:12 10:12 WBC (3.8-10.6) k/uL RBC (3.80-5.40) m/uL Hgb (11.4-16.0) gm/dL Hct (34.0-46.0) % MCV (80.0-100.0) fL MCH (25.0-35.0) pg MCHC (31.0-37.0) g/dL RDW (11.5-15.5) % Plt Count (150-450) k/uL Neutrophils % % Lymphocytes % % Monocytes % % Eosinophils % % Basophils % % Neutrophils # (1.3-7.7) k/uL Lymphocytes # (1.0-4.8) k/uL Monocytes # (0-1.0) k/uL Eosinophils # (0-0.7) k/uL Basophils # (0-0.2) k/uL Hypochromasia PT 11.2 (9.0-12.0) sec INR 1.1 (<1.2) APTT 24.7 (22.0-30.0) sec Sodium 137 (137-145) mmol/L Potassium 4.0 (3.5-5.1) mmol/L Chloride 101 (98-107) mmol/L Carbon Dioxide 31 H (22-30) mmol/L Anion Gap 5 mmol/L BUN 16 (7-17) mg/dL Creatinine 0.31 L (0.52-1.04) mg/dL Est GFR (CKD-EPI)AfAm >90 (>60 ml/min/1.73 sqM) Est GFR (CKD-EPI)NonAf >90 (>60 ml/min/1.73 sqM) Glucose 63 L (74-99) mg/dL POC Glucose (mg/dL) (75-99) mg/dL POC Glu Biscuit Maker ID Plasma Lactic Acid Yan (0.7-2.0) mmol/L Calcium 8.8 (8.4-10.2) mg/dL Total Bilirubin 0.4 (0.2-1.3) mg/dL AST 48 H (14-36) U/L ALT 25 (4-34) U/L Alkaline Phosphatase 178 H (38-126) U/L Ammonia (<30) umol/L Troponin I (0.000-0.034) ng/mL Total Protein 6.6 (6.3-8.2) g/dL Albumin 2.8 L (3.5-5.0) g/dL Urine Color Yellow Urine Appearance Clear (Clear) Urine pH 7.0 (5.0-8.0) Ur Specific G[place] 1.011 (1.001-1.035) Urine Protein Negative (Negative) Urine Glucose (UA) 1+ H (Negative) Urine Ketones Negative (Negative) Urine Blood Negative (Negative) Urine Nitrite Negative (Negative) Urine Bilirubin Negative (Negative) Urine Urobilinogen <2.0 (<2.0) mg/dL Ur Leukocyte Esterase Negative (Negative) Urine Opiates Screen Detected H (NotDetected) Ur Oxycodone Screen Not Detected (NotDetected) Urine Methadone Screen Not Detected (NotDetected) Ur Propoxyphene Screen Not Detected (NotDetected) Ur Barbiturates Screen Not Detected (NotDetected) U Tricyclic Antidepress Not Detected (NotDetected) Ur Phencyclidine Scrn Not Detected (NotDetected) Ur Amphetamines Screen Not Detected (NotDetected) U Methamphetamines Scrn Not Detected (NotDetected) U Benzodiazepines Scrn Detected H (NotDetected) Urine Cocaine Screen Not Detected (NotDetected) U Marijuana (THC) Screen Not Detected (NotDetected) C. difficile (EIA) Intrp (Negative) 04/14/20 04/14/20 04/14/20 Range/Units 10:12 10:12 10:12 WBC (3.8-10.6) k/uL RBC (3.80-5.40) m/uL Hgb (11.4-16.0) gm/dL Hct (34.0-46.0) % MCV (80.0-100.0) fL MCH (25.0-35.0) pg MCHC (31.0-37.0) g/dL RDW (11.5-15.5) % Plt Count (150-450) k/uL Neutrophils % % Lymphocytes % % Monocytes % % Eosinophils % % Basophils % % Neutrophils # (1.3-7.7) k/uL Lymphocytes # (1.0-4.8) k/uL Monocytes # (0-1.0) k/uL Eosinophils # (0-0.7) k/uL Basophils # (0-0.2) k/uL Hypochromasia PT (9.0-12.0) sec INR (<1.2) APTT (22.0-30.0) sec Sodium (137-145) mmol/L Potassium (3.5-5.1) mmol/L Chloride (98-107) mmol/L Carbon Dioxide (22-30) mmol/L Anion Gap mmol/L BUN (7-17) mg/dL Creatinine (0.52-1.04) mg/dL Est GFR (CKD-EPI)AfAm (>60 ml/min/1.73 sqM) Est GFR (CKD-EPI)NonAf (>60 ml/min/1.73 sqM) Glucose (74-99) mg/dL POC Glucose (mg/dL) (75-99) mg/dL POC Glu Biscuit Maker ID Plasma Lactic Acid Yan (0.7-2.0) mmol/L Calcium (8.4-10.2) mg/dL Total Bilirubin (0.2-1.3) mg/dL AST (14-36) U/L ALT (4-34) U/L Alkaline Phosphatase (38-126) U/L Ammonia <9 (<30) umol/L Troponin I 0.216 H* (0.000-0.034) ng/mL Total Protein (6.3-8.2) g/dL Albumin (3.5-5.0) g/dL Urine Color Urine Appearance (Clear) Urine pH (5.0-8.0) Ur Specific [place] (1.001-1.035) Urine Protein (Negative) Urine Glucose (UA) (Negative) Urine Ketones (Negative) Urine Blood (Negative) Urine Nitrite (Negative) Urine Bilirubin (Negative) Urine Urobilinogen (<2.0) mg/dL Ur Leukocyte Esterase (Negative) Urine Opiates Screen (NotDetected) Ur Oxycodone Screen (NotDetected) Urine Methadone Screen (NotDetected) Ur Propoxyphene Screen (NotDetected) Ur Barbiturates Screen (NotDetected) U Tricyclic Antidepress (NotDetected) Ur Phencyclidine Scrn (NotDetected) Ur Amphetamines Screen (NotDetected) U Methamphetamines Scrn (NotDetected) U Benzodiazepines Scrn (NotDetected) Urine Cocaine Screen (NotDetected) U Marijuana (THC) Screen (NotDetected) C. difficile (EIA) Intrp Negative (Negative) 04/14/20 04/14/20 04/14/20 Range/Units 11:13 11:15 11:32 WBC (3.8-10.6) k/uL RBC (3.80-5.40) m/uL Hgb (11.4-16.0) gm/dL Hct (34.0-46.0) % MCV (80.0-100.0) fL MCH (25.0-35.0) pg MCHC (31.0-37.0) g/dL RDW (11.5-15.5) % Plt Count (150-450) k/uL Neutrophils % % Lymphocytes % % Monocytes % % Eosinophils % % Basophils % % Neutrophils # (1.3-7.7) k/uL Lymphocytes # (1.0-4.8) k/uL Monocytes # (0-1.0) k/uL Eosinophils # (0-0.7) k/uL Basophils # (0-0.2) k/uL Hypochromasia PT (9.0-12.0) sec INR (<1.2) APTT (22.0-30.0) sec Sodium (137-145) mmol/L Potassium (3.5-5.1) mmol/L Chloride (98-107) mmol/L Carbon Dioxide (22-30) mmol/L Anion Gap mmol/L BUN (7-17) mg/dL Creatinine (0.52-1.04) mg/dL Est GFR (CKD-EPI)AfAm (>60 ml/min/1.73 sqM) Est GFR (CKD-EPI)NonAf (>60 ml/min/1.73 sqM) Glucose (74-99) mg/dL POC Glucose (mg/dL) 47 L 53 L 160 H (75-99) mg/dL POC Glu Biscuit Maker ID Jasen Hampton, Sarika Sal Plasma Lactic Acid Yan (0.7-2.0) mmol/L Calcium (8.4-10.2) mg/dL Total Bilirubin (0.2-1.3) mg/dL AST (14-36) U/L ALT (4-34) U/L Alkaline Phosphatase (38-126) U/L Ammonia (<30) umol/L Troponin I (0.000-0.034) ng/mL Total Protein (6.3-8.2) g/dL Albumin (3.5-5.0) g/dL Urine Color Urine Appearance (Clear) Urine pH (5.0-8.0) Ur Specific [place] (1.001-1.035) Urine Protein (Negative) Urine Glucose (UA) (Negative) Urine Ketones (Negative) Urine Blood (Negative) Urine Nitrite (Negative) Urine Bilirubin (Negative) Urine Urobilinogen (<2.0) mg/dL Ur Leukocyte Esterase (Negative) Urine Opiates Screen (NotDetected) Ur Oxycodone Screen (NotDetected) Urine Methadone Screen (NotDetected) Ur Propoxyphene Screen (NotDetected) Ur Barbiturates Screen (NotDetected) U Tricyclic Antidepress (NotDetected) Ur Phencyclidine Scrn (NotDetected) Ur Amphetamines Screen (NotDetected) U Methamphetamines Scrn (NotDetected) U Benzodiazepines Scrn (NotDetected) Urine Cocaine Screen (NotDetected) U Marijuana (THC) Screen (NotDetected) C. difficile (EIA) Intrp (Negative) 04/14/20 04/14/20 Range/Units 12:30 12:44 WBC (3.8-10.6) k/uL RBC (3.80-5.40) m/uL Hgb (11.4-16.0) gm/dL Hct (34.0-46.0) % MCV (80.0-100.0) fL MCH (25.0-35.0) pg MCHC (31.0-37.0) g/dL RDW (11.5-15.5) % Plt Count (150-450) k/uL Neutrophils % % Lymphocytes % % Monocytes % % Eosinophils % % Basophils % % Neutrophils # (1.3-7.7) k/uL Lymphocytes # (1.0-4.8) k/uL Monocytes # (0-1.0) k/uL Eosinophils # (0-0.7) k/uL Basophils # (0-0.2) k/uL Hypochromasia PT (9.0-12.0) sec INR (<1.2) APTT (22.0-30.0) sec Sodium (137-145) mmol/L Potassium (3.5-5.1) mmol/L Chloride (98-107) mmol/L Carbon Dioxide (22-30) mmol/L Anion Gap mmol/L BUN (7-17) mg/dL Creatinine (0.52-1.04) mg/dL Est GFR (CKD-EPI)AfAm (>60 ml/min/1.73 sqM) Est GFR (CKD-EPI)NonAf (>60 ml/min/1.73 sqM) Glucose (74-99) mg/dL POC Glucose (mg/dL) 96 (75-99) mg/dL POC Glu Biscuit Maker ID Sarika Simons Plasma Lactic Acid Yan 2.7 H* (0.7-2.0) mmol/L Calcium (8.4-10.2) mg/dL Total Bilirubin (0.2-1.3) mg/dL AST (14-36) U/L ALT (4-34) U/L Alkaline Phosphatase (38-126) U/L Ammonia (<30) umol/L Troponin I (0.000-0.034) ng/mL Total Protein (6.3-8.2) g/dL Albumin (3.5-5.0) g/dL Urine Color Urine Appearance (Clear) Urine pH (5.0-8.0) Ur Specific Gifford (1.001-1.035) Urine Protein (Negative) Urine Glucose (UA) (Negative) Urine Ketones (Negative) Urine Blood (Negative) Urine Nitrite (Negative) Urine Bilirubin (Negative) Urine Urobilinogen (<2.0) mg/dL Ur Leukocyte Esterase (Negative) Urine Opiates Screen (NotDetected) Ur Oxycodone Screen (NotDetected) Urine Methadone Screen (NotDetected) Ur Propoxyphene Screen (NotDetected) Ur Barbiturates Screen (NotDetected) U Tricyclic Antidepress (NotDetected) Ur Phencyclidine Scrn (NotDetected) Ur Amphetamines Screen (NotDetected) U Methamphetamines Scrn (NotDetected) U Benzodiazepines Scrn (NotDetected) Urine Cocaine Screen (NotDetected) U Marijuana (THC) Screen (NotDetected) C. difficile (EIA) Intrp (Negative) Critical Care Time Critical Care Time: Yes Total Critical Care Time: 35 Disposition Clinical Impression: Acute diarrhea, Elevated troponin, Altered mental status, Pneumonia, Hypoglycemia, Narcotic abuse Disposition: ADMITTED IP TO THIS HOSP Referrals: Vince Marcos III, MD [Primary Care Provider] - 1-2 days Time of Disposition: 13:31
[2020-04-14 10:27] LABS: Basophils # (A) 0.1 k/uL (0-0.2); Basophils % (A) 0 %; Eosinophils % (A) 0 %; HCT 33.7 % (34.0-46.0); HGB 10.4 gm/dL (11.4-16.0); Hypochromasia Slight; Lymphocytes # (A) 1.1 k/uL (1.0-4.8); Lymphocytes % (A) 7 %; MCH 28.5 pg (25.0-35.0); MCHC 30.8 g/dL (31.0-37.0); MCV 92.5 fL (80.0-100.0); Monocytes # (A) 0.5 k/uL (0-1.0); Monocytes % (A) 3 %; Neutrophils # (A) 13.4 k/uL (1.3-7.7); Neutrophils % (A) 88 %; Platelet Count 724 k/uL (150-450); RBC 3.64 m/uL (3.80-5.40); RDW 14.5 % (11.5-15.5); WBC 15.3 k/uL (3.8-10.6)
[2020-04-14 10:36] LABS: INR 1.1 (<1.2); Partial Thromboplastin Time 24.7 sec (22.0-30.0); Prothrombin Time 11.2 sec (9.0-12.0)
[2020-04-14 10:37] LABS: ALT 25 U/L (4-34); AST 48 U/L (14-36); African American GFR (CKD) >90 (>60 ml/min/1.73 sqM); Albumin 2.8 g/dL (3.5-5.0); Alkaline Phosphatase 178 U/L (38-126); Anion Gap 5 mmol/L; Blood Urea Nitrogen 16 mg/dL (7-17); Calcium 8.8 mg/dL (8.4-10.2); Carbon Dioxide 31 mmol/L (22-30); Chloride 101 mmol/L (98-107); Glucose 63 mg/dL (74-99); Non-African American GFR(CKD) >90 (>60 ml/min/1.73 sqM); Sodium 137 mmol/L (137-145); Total Bilirubin 0.4 mg/dL (0.2-1.3); Total Protein 6.6 g/dL (6.3-8.2)
[2020-04-14 10:42] LABS: Appearance,Urine Clear (Clear); Bilirubin,Urine Negative (Negative); Blood,Urine Negative (Negative); Color,Urine Yellow; Glucose,Urine (UA) 1+ (Negative); Ketones,Urine Negative (Negative); Leukocyte Esterase,Urine Negative (Negative); Nitrite,Urine Negative (Negative); Protein,Urine Negative (Negative); Specific Gravity,Urine 1.011 (1.001-1.035); Urobilinogen,Urine <2.0 mg/dL (<2.0)
--- NOTE | 2020-04-14 11:06 | XR ---
EXAMINATION TYPE: XR chest 1V DATE OF EXAM: 04/14/2020 HISTORY: Shortness of breath. COMPARISON: 04/12/2020 TECHNIQUE: Single view of the chest is submitted. FINDINGS: Demonstrated are scattered senescent parenchymal change. Increasing patchy right perihilar and right basilar infiltrate with associated pleural effusion and/o r underlying atelectasis. Superimposed pulmonary venous congestion. The heart is stable. Hilar and mediastinal structures are within normal limits. Degenerative changes are seen of the dorsal spine. IMPRESSION: 1. Increasing patchy right perihilar and right basilar infiltrate with associated pleural effusion a nd/or underlying atelectasis. Superimposed pulmonary venous congestion.
[2020-04-14 11:07] LABS: Amphetamine Screen,Urine Not Detected (NotDetected); Barbiturate Screen,Urine Not Detected (NotDetected); Benzodiazepines Screen,Urine Detected (NotDetected); Cocaine Screen,Urine Not Detected (NotDetected); Methadone Screen, Urine Not Detected (NotDetected); Opiate Screen,Urine Detected (NotDetected); Oxycodone Screen, Urine Not Detected (NotDetected); Phencyclidine Screen,Urine Not Detected (NotDetected); Tricyclic Antidepressant,Urine Not Detected (NotDetected); Urn Cannabinoid Scrn Not Detected (NotDetected)
--- NOTE | 2020-04-14 11:08 | CT ---
EXAMINATION TYPE: CT brain wo con DATE OF EXAM: 04/14/2020 COMPARISON: 03/27/2011 HISTORY: Altered mental status CT DLP: 2422.[address] of the brain was performed. The ventricles, basal cisterns and sulci overlying the cerebral convexities demonstrate mild enlargem ent. There is no evidence for intracranial hemorrhage or sulcal effacement. There is decreased attenuation about the periventricular white matter and deep white matter of both c erebral hemispheres, compatible with chronic small vessel ischemia. Differential diagnosis does inclu de demyelination. No mass effects are seen.No midline shift. Osseous calvarium is intact. If symptoms persist consider MRI. IMPRESSION: 1. Age related atrophic and chronic small vessel ischemic change without acute intracranial process s een at this time.
[2020-04-14] MEDS ORDERED: DEXTROSE 50% SYRINGE 50 ML IVP STA ×2 (11:17→14:31)
[2020-04-14 11:22] LABS: Glucose,Whole Blood 47 mg/dL (75-99)
[2020-04-14 11:22] LABS: Glucose,Whole Blood 53 mg/dL (75-99)
[2020-04-14 11:34] LABS: Glucose,Whole Blood 160 mg/dL (75-99)
[2020-04-14] MEDS ORDERED: cefTRIAXone IN SWFI 1,000 MG/10 ML SYRINGE IVP STA (11:35)
[2020-04-14] MEDS ORDERED: LORazepam 2 MG/ML INJ IV STA (12:40)
[2020-04-14] MEDS ORDERED: IPRATROPIUM-ALBUTEROL 3 ML NEB INHALATION STA (12:47)
[2020-04-14] MEDS ORDERED: ASPIRIN 300 MG SUPP RECTAL STA (12:49)
[2020-04-14 12:55] LABS: Glucose,Whole Blood 96 mg/dL (75-99)
[2020-04-14] MEDS ORDERED: AZITHROMYCIN 500 MG in SODIUM CHLORIDE 0.9% 250 ML IVPB STA (13:32)
[2020-04-14] MEDS ORDERED: PNEUMONIA PROTOCOL UTILIZED 1 EACH MISC PO PRN (13:32)
--- NOTE | 2020-04-14 13:32 | CT ---
EXAMINATION TYPE: CT abdomen pelvis w con DATE OF EXAM: 04/14/2020 COMPARISON: 12/26/2010 HISTORY: Patient poor historian. CT DLP: 787.1 mGycm CONTRAST: CT scan of the abdomen and pelvis is performed without Oral Contrast and with IV Contrast, patient in jected with 100 mL of Isovue 300. FINDINGS: LUNG BASES-: Large multiloculated collection right lower lobe with components measuring 4 x 3.3 cm an d 6.0 x 4.4 cm respectively. Internal air is identified. Findings are compatible with pulmonary absce ss. There is a large right-sided pleural effusion measuring 9.6 cm AP dimension. Foci of air noted th e right anterior abdominal wall musculature may be related to recent cholecystectomy versus dissectio n from the aforementioned abscess into the anterior abdominal wall musculature.. Small left-sided ple ural effusion noted. Large area right lower lobe collapse. Underlying neoplasm is not excluded. LIVER/GB: No calcified gallstones. No space occupying hepatic lesion. Biliary tree is of normal ca liber. PANCREAS: No inflammation. No distinct mass. SPLEEN: No splenic enlargement. No lesion seen. ADRENALS: No nodule. No thickening. KIDNEYS/BLADDER: No hydronephrosis. No nephrolithiasis. No distinct renal mass. [place] balloon cath eter is in place. BOWEL: Small bowel wall thickening is noted reflect nonspecific enteritis with differential diagnosti c possibilities including infection, inflammatory and vascular etiologies. No free air within the abd omen. No definite evidence for abscess. Lack of GI contrast limits evaluation of the abdominal viscer a. GENITAL ORGANS: No gross abnormality. LYMPH NODES: No greater than 1cm abdominal or pelvic lymph nodes are appreciated. AORTA: No significant abnormality. OSSEOUS STRUCTURES: No significant abnormality is seen. OTHER: No significant additional abnormality is seen. IMPRESSION: 1. Large multiloculated collection right lower lobe with components measuring 4 x 3.3 cm and 6.0 x 4. 4 cm respectively. Internal air is identified. Findings are compatible with pulmonary abscess. 2.Small bowel wall thickening is noted reflect nonspecific enteritis with differential diagnostic pos sibilities including infection, inflammatory and vascular etiologies.
[2020-04-14 14:18] LABS: Glucose,Whole Blood 74 mg/dL (75-99)
[2020-04-14] MEDS ORDERED: SODIUM CHLORIDE 0.9% 500 ML 500 ML IV STA (14:31)
[2020-04-14 15:37] LABS: Glucose,Whole Blood 147 mg/dL (75-99)
[2020-04-14] MEDS: PIPERACILLIN-TAZOBACTAM 3.375 GM in SODIUM CHLORIDE 0.9% 100 ML IVPB SCH ×2 (15:57→22:43)
--- NOTE | 2020-04-14 16:07 | XR ---
EXAMINATION TYPE: XR chest 1V portable DATE OF EXAM: 04/14/2020 HISTORY: Shortness of breath. COMPARISON: 04/14/2020 TECHNIQUE: Single view of the chest is submitted. FINDINGS: There is peripheral lucency noted right midlung zone which could reflect a skinfold however pneumotho rax is not excluded. Persistent right lower lobe opacity and diminution of pleural effusion. Left lung is clear. There is no evidence for focal infiltrate. The heart is stable. Hilar and mediastinal structures are within normal limits. Degenerative changes are seen of the dorsal spine. IMPRESSION: 1. There is peripheral lucency noted right midlung zone which could reflect a skinfold however pneum othorax is not excluded. Persistent right lower lobe opacity and diminution of pleural effusion.
[2020-04-14] MEDS: DEXTROSE 5%-0.9% NACL 1,000 ML IV SCH (16:08)
[2020-04-14 16:43] LABS: Glucose,Whole Blood 113 mg/dL (75-99)
[2020-04-14] MEDS ORDERED: RX INFO: IV CONTRAST WAS GIVEN 1 EACH MISC MISCELLANE PRN (17:03)
--- NOTE | 2020-04-14 17:04 | P.CNPUL ---
History of Present Illness Consult date: 04/14/20 Reason for consult: dyspnea, pneumonia, pleural effusion History of present illness: This is a 59-year-old female patient was brought into the emergency department by caregiver unresponsive, lethargic, hypoglycemic. The patient was in the hospital last week and the patient underwent a laparoscopic cholecystectomy for an acute cholecystitis on 04/08/2020. Note that the patient presented to the hospital because of symptoms of acute cholecystitis. She was having right upper quadrant pain. The pain was radiating to the back. She has some nausea. She had elevated white cell count of 18. She had low-grade fever. Ultrasound the gallbladder showed inflammation with fluid. LFTs were normal except for some mild elevation of alkaline phosphatase. The patient underwent the surgery and the patient was discharged home on Ceftin for a total of 5 days. She was also given incentive spirometer. Noted the chest x-ray prior to discharge showed a right-sided pleural effusion that was small. The patient came in today because of feeling lethargic and she was found to be quite lethargic and unresponsive by the caregiver. At the time of arrival the patient was found to be hypoglycemic. Her blood sugar was in the 40s. She was given 3 A of D50 based on 3 episodes of hypoglycemia that occurred since her being transferred to the hospital. The patient also had taken 2 tablets of 30 mg of morphine and was given to her by a friend. She was given Narcan in the emergency department. She became agitated and following that she was given Ativan and currently she is resting comfortably in bed. Based on her presentation, a CAT scan of the abdomen and pelvis was done and the CAT scan showed a large multi loculated collection in the right lower lobe of the lung with components measuring 4 x 3.3 and 6 x 4.4 cm in size respectively. There was internal air identified. Finding was consistent with a lung abscess. There was also evidence of small bowel thickening, nonspecific colitis and there was also evidence of a large right-sided pleural effusion. I saw the patient emergency department. She was still not fully communicating. She was lethargic. She would withdraw to painful additional 4 extremities. I was able to drain approximately 1.2 L of pleural fluid from the right lung. The pleural fluid was turbid dark yellowish in color. The patient tolerated the procedure well. Postprocedure chest x-ray showed no evidence of any pneumothorax. There is a persistent right lower lobe opacity with diminution of the pleural effusion. Note that the patient was having diarrhea and she has had previous history of C. diff colitis. A fecal management system was attached. The patient will be transferred to the intensive care unit. Review of Systems ROS unobtainable: due to mental status Past Medical History Past Medical History: Diabetes Mellitus, Fibromyalgia, Hyperlipidemia Additional Past Medical History / Comment(s): myalgia, myositis, sciatica, chronic pain syndrome, vaginitis, otalgia, fatigue, malaise, UTI, microscopic hematuria, tachycardia, insomnia, lumbago, degenerative disc, colitis History of Any Multi-Drug Resistant Organisms: C-DIFF Date of last positivie culture/infection: February 15 2020 MDRO Source:: stool Past Surgical History: Orthopedic Surgery, Tubal Ligation Additional Past Surgical History / Comment(s): left wrist Past Anesthesia/Blood Transfusion Reactions: No Reported Reaction Past Psychological History: Depression Smoking Status: Former smoker Past Alcohol Use History: None Reported Past Drug Use History: None Reported - Past Family History Mother Family Medical History: Cancer, COPD Additional Family Medical History / Comment(s): cervical cancer Father Additional Family Medical History / Comment(s): etoh abuse Medications and Allergies Home Medications Medication Instructions Recorded Confirmed Type RX: Acetaminophen [Tylenol] 1,000 mg PO DAILY PRN 03/12/20 04/14/20 History RX: DULoxetine HCL [Cymbalta] 30 mg PO DAILY 03/12/20 04/14/20 History RX: Insulin NPH Hum/Reg Insulin Hm 22 units SQ BID-W/MEALS 03/12/20 04/14/20 History [Novolin 70-30 Flexpen] RX: metFORMIN HCL [Glucophage] 1,000 mg PO Q12H 03/12/20 04/14/20 History Cefuroxime Axetil [Ceftin] 500 mg PO BID 5 Days #10 tab 04/12/20 04/14/20 Rx Cholestyramine (with Sugar) 4 gm PO TID #30 packet 04/12/20 04/14/20 Rx [Questran] RX: Gabapentin [Neurontin] 100 mg PO QAM #6 cap 04/12/20 04/14/20 Rx RX: Gabapentin [Neurontin] 200 mg PO HS #3 cap 04/12/20 04/14/20 Rx RX: HYDROcodone/APAP 10-325MG 1 tab PO Q6H PRN #6 tab 04/12/20 04/14/20 Rx [[place] 10-325] RX: Loperamide [Imodium] 2 mg PO QID #30 cap 04/12/20 04/14/20 Rx Allergies Allergy/AdvReac Type Severity Reaction Status Date / Time pregabalin [From Lyrica] AdvReac Swelling Verified 04/14/20 10:07 trazodone AdvReac Unknown Verified 04/14/20 10:07 Physical Exam Vitals: Vital Signs Temp Pulse Resp BP Pulse Ox 04/14/20 16:25 96.8 F L 114 H 18 129/84 94 L 04/14/20 16:00 111 H 18 138/93 93 L 04/14/20 14:30 144 H 18 95/72 92 L 04/14/20 13:30 118 H 20 130/91 95 04/14/20 13:24 120 H 04/14/20 13:18 116 H 04/14/20 12:36 123 H 22 150/92 92 L 04/14/20 11:00 96.9 F L 102 H 16 147/83 100 04/14/20 10:01 95 F L 96 16 113/98 96 Intake and Output 04/14/20 04/14/20 04/14/20 06:59 14:59 22:59 Other: Weight 44 kg Gen. appearance the patient is very much lethargic and somnolent and sleepy, unable to communicate and unable to hold a conversation Head exam was generally normal. There was no scleral icterus or corneal arcus. Mucous membranes were moist. Neck was supple and without jugular venous distension, thyromegaly, or carotid bruits. Carotids were easily palpable bilaterally. There was no adenopathy. Lungs sounds are diminished in the right lung base along with dullness to percussion Cardiac exam revealed the PMI to be normally situated and sized. The rhythm was regular and no extrasystoles were noted during several minutes of auscultation. The first and second heart sounds were normal and physiologic splitting of the second heart sound was noted. There were no murmurs, rubs, clicks, or gallops. Abdominal exam revealed normal bowel sounds. The abdomen was soft, non-tender, and without masses, organomegaly, or appreciable enlargement of the abdominal aorta. Surgical scar over the right upper quadrant area at the site of laparoscopic cholecystectomy tract infection and intact. No direct tenderness. No rebound tenderness. No guarding. Examination of the extremities revealed easily palpable radial, femoral and pedal pulses. There was no cyanosis, clubbing or edema. Examination of the skin revealed no evidence of significant rashes, suspicious appearing nevi or other concerning lesions. Neurologically the patient is very much lethargic, alert and oriented 0, unable to communicate, moving all 4 extremity is in withdraw to painful stimulation. She is quite encephalopathic at this point in time. Pupils are equal and reactive to light. No nystagmus. No clonus. No focal neurological deficits. Results - Laboratory Findings CBC and BMP: 04/14/20 10:12 04/14/20 10:12 PT/INR, D-dimer PT 11.2 sec (9.0-12.0) 04/14/20 10:12 INR 1.1 (<1.2) 04/14/20 10:12 Abnormal lab findings: Abnormal Labs 04/14/20 04/14/20 04/14/20 09:32 10:12 10:12 WBC 15.3 H RBC 3.64 L Hgb 10.4 L Hct 33.7 L MCHC 30.8 L Plt Count 724 H Neutrophils # 13.4 H Carbon Dioxide Creatinine Glucose POC Glucose (mg/dL) 70 L Plasma Lactic Acid Yan AST Alkaline Phosphatase Troponin I Albumin Urine Glucose (UA) 1+ H Urine Opiates Screen Detected H U Benzodiazepines Scrn Detected H 04/14/20 04/14/20 04/14/20 10:12 10:12 11:13 WBC RBC Hgb Hct MCHC Plt Count Neutrophils # Carbon Dioxide 31 H Creatinine 0.31 L Glucose 63 L POC Glucose (mg/dL) 47 L Plasma Lactic Acid Yan AST 48 H Alkaline Phosphatase 178 H Troponin I 0.216 H* Albumin 2.8 L Urine Glucose (UA) Urine Opiates Screen U Benzodiazepines Scrn 04/14/20 04/14/20 04/14/20 11:15 11:32 12:30 WBC RBC Hgb Hct MCHC Plt Count Neutrophils # Carbon Dioxide Creatinine Glucose POC Glucose (mg/dL) 53 L 160 H Plasma Lactic Acid Yan 2.7 H* AST Alkaline Phosphatase Troponin I Albumin Urine Glucose (UA) Urine Opiates Screen U Benzodiazepines Scrn 04/14/20 04/14/20 04/14/20 14:17 15:36 16:41 WBC RBC Hgb Hct MCHC Plt Count Neutrophils # Carbon Dioxide Creatinine Glucose POC Glucose (mg/dL) 74 L 147 H 113 H Plasma Lactic Acid Yan AST Alkaline Phosphatase Troponin I Albumin Urine Glucose (UA) Urine Opiates Screen U Benzodiazepines Scrn - Diagnostic Findings Chest x-ray: image reviewed Assessment and Plan Plan: 1 right lower lobe pneumonia/abscess formation as the patient has a complex collection in the right lower lobe and addition to a large right-sided pleural effusion post thoracentesis with removal of 1.2 L of pleural fluid in the emergency department without any complications. CAT scan of the chest is to follow. Consider aspiration pneumonia. Consider gram-negative pneumonia with secondary cavitation/abscess formation 2 acute hypoxic respiratory failure secondary to above 3 altered mental status currently under investigation. Rule out metabolic encephalopathy. Rule out drug induced encephalopathy. 4 episodic hypoglycemia treated with D50 5 diabetes mellitus type 2, poorly controlled on outpatient basis 6 post cholecystectomy and surgery was done on 04/08/2020 7 previous history of UTI 8 previous history of C. diff colitis and the patient is having extensive diarrhea and fecal management system was inserted. Rule out recurrent C. diff colitis specially the patient was taking antibiotics on outpatient basis 9 fibromyalgia 10 hypertension 11 hyperlipidemia 12 chronic pain syndrome with degenerative disc disease 13 former smoker 14 depression 15 opiates intake post Narcan treatment 16 leukocytosis white cell count is at 15 17 troponin leak 18 mild lactic acidosis Plan Place this patient on D5 normal saline at the rate of 100 mL an hour Put the patient on a combination of IV Zosyn covering for right lower lobe pneumonia/abscess. Would also like to cover this patient for C. diff colitis as the patient is having excess amount of diarrhea. We'll check stool for C. diff. We'll start the patient on IV Flagyl 500 mg every 8 hours. Unable to take any oral medication at this point in time Monitor the blood sugar and put the patient on Avelox right-sided coverage Family pleural fluid for Gram stain and culture and cytology and chemistry analysis Obtain CAT scan of the chest with contrast Transfer the patient ICU Monitor mental status. CAT scan of the brain that was on the burst department was negative.
[2020-04-14 17:05] LABS: Glucose,Whole Blood 108 mg/dL (75-99)
--- NOTE | 2020-04-14 17:05 | P.PCN ---
Date of Procedure: 04/14/20 Preoperative Diagnosis: Right-sided pleural effusion Postoperative Diagnosis: Right-sided pleural effusion Procedure(s) Performed: Thoracentesis Anesthesia: local Surgeon: Eliezer Ram Estimated Blood Loss (ml): 0 Disposition: ICU Operative Findings: Indication: Pleural effusion. A time-out was completed verifying correct patient, procedure, site, positioning, and implant (s) or special equipment if applicable. Ultrasound guidance was not used and appropriate fluid pocket was identified and marked. Patient was positioned, prepped and draped in usual sterile fashion. Lidocaine was used to anesthetize the area. A Thoracentesis catheter was introduced into the pleural space and fluid was removed. Blood loss was none. A chest x-ray was ordered to evaluate for pneumothorax. Total Fluid Removed: 1.2 L Color of Fluid: Turbid yellowish Fluid was sent for appropriate laboratory tests. Patient tolerated the procedure well and there were no complications.
[2020-04-14 18:21] LABS: Glucose,Whole Blood 116 mg/dL (75-99)
[2020-04-14] MEDS: INSULIN ASPART (NovoLOG) 100 UNIT/ML VIAL SQ SCH ×2 (18:43→21:48)
[2020-04-14] MEDS: PANTOPRAZOLE 40 MG/10 ML VIAL IVP SCH (18:46)
[2020-04-14] MEDS: ENOXAPARIN 40 MG/0.4 ML SYRINGE SQ SCH (18:46)
[2020-04-14] MEDS: metroNIDAZOLE-NS PMX 500 MG in SALINE 1 100ML.BAG IVPB SCH (18:47)
[2020-04-14 19:03] LABS: Glucose,Whole Blood 111 mg/dL (75-99)
--- NOTE | 2020-04-14 19:09 | CT ---
EXAMINATION TYPE: CT chest wo con DATE OF EXAM: 04/14/2020 COMPARISON: None HISTORY: Right pneumonia, possible empyema. CT DLP: 289.3 mGycm Automated exposure control for dose reduction was used. Images were obtained from the thoracic inlet to the diaphragm without contrast. There is mild to moderate bilateral pleural effusions. There is extensive airspace consolidation in t he right lung and more noticeable in the right lower lobe. There is also some patchy airspace infiltr ate and atelectasis left lower lobe. There is contrast in the kidneys from recent CT scan. There are clips from cholecystectomy. Liver shows no focal defect. Spleen is intact. There is no pneumothorax. There is coronary artery calcification. There are a few paratracheal lymph nodes that measure up to 1.5 cm. There are multiple air bronchograms. There is dense consolidation in the right middle lobe anteriorly. There is some spurring in the thoracic spine. I see no bony destructive process. Sternum is intact. IMPRESSION: Extensive bilateral pneumonic infiltrates that is worse on the right side. Bilateral pleural effusion s. Empyema is possible. Infiltrates consistent with extensive pneumonia. Mild mediastinal adenopathy also consistent with inflammatory disease. Dense right middle lobe consolidation.
[2020-04-14 20:43] LABS: Glucose,Whole Blood 112 mg/dL (75-99)
--- NOTE | 2020-04-14 21:02 | P.HPIM ---
History of Present Illness This is a 59 years old female with multiple medical problems as below, presents because of altered mental status. Patient could not provide information and she was obtained from the caregiver at bedside. As per caregiver patient had cholecystectomy done for her on Friday, yesterday she was fine however today patient was not waking up, she was called, clammy and sweating. On the top of that a friend gave her 2-3 pills of morphine 30 mg that she is not supposed to take as she was only an [place]. Other information is limited by the patient's condition which could not provide information Patiently was recently admitted for acute cholecystitis, status post laparoscopic cholecystectomy also found to have Right lower lobe/basilar pneumonia, she was improved and discharged home on oral antibiotics, at that time she had diarrhea and tested negative for C. diff. In the emergency room patient was noted to be hypoglycemic 40 his needed several doses of D50, also she received Narcan by emergency room team, after that she started waking up but she was confused and agitated and a half percent her, when I came to see the pa tient she was already on restraints and she was not able to come to get 4 to follow commands. Shortly thereafter patient wantedto be tachycardic with heart rate and 1:30 to 140, and she was hypotensive with blood pressure 90s over 60s. Patient was started on Zosyn and a bolus of normal saline as provided, consult was called to the pulmonary/critical care team which I discussed the case with them, also the nurse contacted the setter induction heating equipment Dr. Nieto about her elevated troponin and ST depression in the lateral left upper EKG. Also aspirin 300 mg as provided rectally. Patient also had diarrhea and C. diff test was sent Labs showed leukocytosis with WBC 15.3 K, hemoglobin 10.4. INR normal, BMP is unremarkable, liver enzymes unremarkable. Lactic acid slightly elevated at 2.7. And elevated troponin 0.216. Urine is not suspicious for infection and urine drug screen is positive for opiates and benzodiazepines. C. diff test was negative. Chest x-ray: Increasing patchy right perihilar and right basilar infiltrate with associated pleural effusion and/or underlying atelectasis. Computed tomography scan of the brain: No acute process. CAT scan of the abdomen and pelvis showing large multiloculated collection in the right lower lobe for by 3.3 x 6.0 x 4.4 cm compatible with pulmonary abscess. Small bowel wall thickening reflecting nonspecific enteritis. Review of Systems N/a, patient could not provide information Past Medical History Past Medical History: Diabetes Mellitus, Fibromyalgia, Hyperlipidemia Additional Past Medical History / Comment(s): myalgia, myositis, sciatica, chronic pain syndrome, vaginitis, otalgia, fatigue, malaise, UTI, microscopic hematuria, tachycardia, insomnia, lumbago, degenerative disc, colitis History of Any Multi-Drug Resistant Organisms: C-DIFF Date of last positivie culture/infection: February 15 2020 MDRO Source:: stool Past Surgical History: Orthopedic Surgery, Tubal Ligation Additional Past Surgical History / Comment(s): left wrist Past Anesthesia/Blood Transfusion Reactions: No Reported Reaction Past Psychological History: Depression Smoking Status: Former smoker Past Alcohol Use History: None Reported Past Drug Use History: None Reported - Past Family History Mother Family Medical History: Cancer, COPD Additional Family Medical History / Comment(s): cervical cancer Father Additional Family Medical History / Comment(s): etoh abuse Medications and Allergies Home Medications Medication Instructions Recorded Confirmed Type Acetaminophen [Tylenol] 1,000 mg PO DAILY PRN 03/12/20 04/14/20 History DULoxetine HCL [Cymbalta] 30 mg PO DAILY 03/12/20 04/14/20 History Insulin NPH Hum/Reg Insulin Hm 22 units SQ BID-W/MEALS 03/12/20 04/14/20 History [Novolin 70-30 Flexpen] metFORMIN HCL [Glucophage] 1,000 mg PO Q12H 03/12/20 04/14/20 History Cefuroxime Axetil [Ceftin] 500 mg PO BID 5 Days #10 tab 04/12/20 04/14/20 Rx Cholestyramine (with Sugar) 4 gm PO TID #30 packet 04/12/20 04/14/20 Rx [Questran] Gabapentin [Neurontin] 100 mg PO QAM #6 cap 04/12/20 04/14/20 Rx Gabapentin [Neurontin] 200 mg PO HS #3 cap 04/12/20 04/14/20 Rx HYDROcodone/APAP 10-325MG [[place] 1 tab PO Q6H PRN #6 tab 04/12/20 04/14/20 Rx 10-325] Loperamide [Imodium] 2 mg PO QID #30 cap 04/12/20 04/14/20 Rx Allergies Allergy/AdvReac Type Severity Reaction Status Date / Time pregabalin [From Lyrica] AdvReac Swelling Verified 04/14/20 10:07 trazodone AdvReac Unknown Verified 04/14/20 10:07 Physical Exam Vitals: Vital Signs Temp Pulse Resp BP Pulse Ox 04/14/20 14:30 144 H 18 95/72 92 L 04/14/20 13:30 118 H 20 130/91 95 04/14/20 13:24 120 H 04/14/20 13:18 116 H 04/14/20 12:36 123 H 22 150/92 92 L 04/14/20 11:00 96.9 F L 102 H 16 147/83 100 04/14/20 10:01 95 F L 96 16 113/98 96 Intake and Output 04/14/20 04/14/20 04/14/20 06:59 14:59 22:59 Other: Weight 44 kg -GENERAL: The patient is alert and confused, agitated, does not follow command, does not have attention span. She was a restrained HEENT: Pupils are round and equally reacting to light. EOMI. No scleral icterus. No conjunctival pallor. Normocephalic, atraumatic. No pharyngeal erythema. No thyromegaly. CARDIOVASCULAR: S1 and S2 present. No murmurs, rubs, or gallops. PULMONARY: Chest is clear to auscultation, no wheezing or crackles. ABDOMEN: Soft, nontender, nondistended, normoactive bowel sounds. No palpable organomegaly. MUSCULOSKELETAL: No joint swelling or deformity. EXTREMITIES: No cyanosis, clubbing, or pedal edema. -NEUROLOGICAL: Surgical examination was limited by the patient condition, however patient can move all extremities equally. Meningeal signs are absent SKIN: No rashes. no petechiae. Results CBC & Chem 7: 04/14/20 10:12 04/14/20 10:12 Labs: Abnormal Lab Results - Last 24 Hours (Table) 04/14/20 04/14/20 04/14/20 Range/Units 09:32 10:12 10:12 WBC 15.3 H (3.8-10.6) k/uL RBC 3.64 L (3.80-5.40) m/uL Hgb 10.4 L (11.4-16.0) gm/dL Hct 33.7 L (34.0-46.0) % MCHC 30.8 L (31.0-37.0) g/dL Plt Count 724 H (150-450) k/uL Neutrophils # 13.4 H (1.3-7.7) k/uL Carbon Dioxide (22-30) mmol/L Creatinine (0.52-1.04) mg/dL Glucose (74-99) mg/dL POC Glucose (mg/dL) 70 L (75-99) mg/dL Plasma Lactic Acid Yan (0.7-2.0) mmol/L AST (14-36) U/L Alkaline Phosphatase (38-126) U/L Troponin I (0.000-0.034) ng/mL Albumin (3.5-5.0) g/dL Urine Glucose (UA) 1+ H (Negative) Urine Opiates Screen Detected H (NotDetected) U Benzodiazepines Scrn Detected H (NotDetected) 04/14/20 04/14/20 04/14/20 Range/Units 10:12 10:12 11:13 WBC (3.8-10.6) k/uL RBC (3.80-5.40) m/uL Hgb (11.4-16.0) gm/dL Hct (34.0-46.0) % MCHC (31.0-37.0) g/dL Plt Count (150-450) k/uL Neutrophils # (1.3-7.7) k/uL Carbon Dioxide 31 H (22-30) mmol/L Creatinine 0.31 L (0.52-1.04) mg/dL Glucose 63 L (74-99) mg/dL POC Glucose (mg/dL) 47 L (75-99) mg/dL Plasma Lactic Acid Yan (0.7-2.0) mmol/L AST 48 H (14-36) U/L Alkaline Phosphatase 178 H (38-126) U/L Troponin I 0.216 H* (0.000-0.034) ng/mL Albumin 2.8 L (3.5-5.0) g/dL Urine Glucose (UA) (Negative) Urine Opiates Screen (NotDetected) U Benzodiazepines Scrn (NotDetected) 04/14/20 04/14/20 04/14/20 Range/Units 11:15 11:32 12:30 WBC (3.8-10.6) k/uL RBC (3.80-5.40) m/uL Hgb (11.4-16.0) gm/dL Hct (34.0-46.0) % MCHC (31.0-37.0) g/dL Plt Count (150-450) k/uL Neutrophils # (1.3-7.7) k/uL Carbon Dioxide (22-30) mmol/L Creatinine (0.52-1.04) mg/dL Glucose (74-99) mg/dL POC Glucose (mg/dL) 53 L 160 H (75-99) mg/dL Plasma Lactic Acid Yan 2.7 H* (0.7-2.0) mmol/L AST (14-36) U/L Alkaline Phosphatase (38-126) U/L Troponin I (0.000-0.034) ng/mL Albumin (3.5-5.0) g/dL Urine Glucose (UA) (Negative) Urine Opiates Screen (NotDetected) U Benzodiazepines Scrn (NotDetected) 04/14/20 04/14/20 Range/Units 14:17 15:36 WBC (3.8-10.6) k/uL RBC (3.80-5.40) m/uL Hgb (11.4-16.0) gm/dL Hct (34.0-46.0) % MCHC (31.0-37.0) g/dL Plt Count (150-450) k/uL Neutrophils # (1.3-7.7) k/uL Carbon Dioxide (22-30) mmol/L Creatinine (0.52-1.04) mg/dL Glucose (74-99) mg/dL POC Glucose (mg/dL) 74 L 147 H (75-99) mg/dL Plasma Lactic Acid Yan (0.7-2.0) mmol/L AST (14-36) U/L Alkaline Phosphatase (38-126) U/L Troponin I (0.000-0.034) ng/mL Albumin (3.5-5.0) g/dL Urine Glucose (UA) (Negative) Urine Opiates Screen (NotDetected) U Benzodiazepines Scrn (NotDetected) Assessment and Plan Assessment: Right lower lobe pneumonia with right lower lobe abscess Severe sepsis with hypotension and elevated lactic acid and altered mental status Metabolic encephalopathy versus toxic encephalopathy, or both Possible acute colitis with diarrhea Episodes of hypoglycemia Recent history of cholecystectomy Plan: this is a pleasant 59 years old female who presents with pulmonary abscess and altered mental status. Patient was started on Zosyn and IV fluids. Follow-up culture results. Pulmonary/critical care team were consulted Also patient has elevated troponin and ST depression, cardiology team were consulted Labs and medication were reviewed.. Continue same treatment. Continue with symptomatic treatment. Resume home medication. Monitor lytes and vitals. DVT and GI prophylaxis. Further recommendations of the clinical course of the pat ient DVT prophylaxis: Subcutaneous Lovenox GI Prophylaxis: Ppi Prognosis is guarded
[2020-04-14 22:00] LABS: Glucose,Whole Blood 121 mg/dL (75-99)
[2020-04-14 22:59] LABS: Glucose,Whole Blood 131 mg/dL (75-99)
[2020-04-14 23:05] LABS: Appearance,BF Hazy; Color,BF Yellow
[2020-04-14 23:06] LABS: Nucleated Cells, Body Fluid 625 /uL; RBC, Body Fluid 3020 /uL
[2020-04-14 23:09] LABS: Mononuclear WBC,Body Fluid 25 %; Polynuclear WBC,Body Fluid 75 %; Total Cells Counted,Body Fluid 100
[2020-04-14 23:58] LABS: Glucose,Whole Blood 154 mg/dL (75-99)
[2020-04-15 01:00] LABS: Glucose,Whole Blood 133 mg/dL (75-99)
[2020-04-15] MEDS: metroNIDAZOLE-NS PMX 500 MG in SALINE 1 100ML.BAG IVPB SCH ×2 (01:42→09:45)
[2020-04-15 02:05] LABS: Glucose,Whole Blood 137 mg/dL (75-99)
[2020-04-15 02:14] LABS: Total Protein, Body Fluid 1580 mg/dL
[2020-04-15] MEDS: DEXTROSE 5%-0.9% NACL 1,000 ML IV SCH (02:17)
[2020-04-15 02:27] LABS: Glucose, BF Source Pleural Fluid; Glucose, Body Fluid 99 mg/dL; LDH, Body Fluid Source Pleural Fluid
[2020-04-15 03:03] LABS: Glucose,Whole Blood 140 mg/dL (75-99)
[2020-04-15 04:00] LABS: Glucose,Whole Blood 149 mg/dL (75-99)
[2020-04-15 05:04] LABS: Glucose,Whole Blood 147 mg/dL (75-99)
[2020-04-15] MEDS: PIPERACILLIN-TAZOBACTAM 3.375 GM in SODIUM CHLORIDE 0.9% 100 ML IVPB SCH ×3 (05:43→22:47)
[2020-04-15 05:48] LABS: Basophils % (A) 0 %; Eosinophils % (A) 0 %; HCT 30.1 % (34.0-46.0); HGB 9.1 gm/dL (11.4-16.0); Hypochromasia Slight; Lymphocytes % (A) 5 %; MCH 28.2 pg (25.0-35.0); MCHC 30.3 g/dL (31.0-37.0); MCV 93.1 fL (80.0-100.0); Mean Platelet Volume 6.9; Monocytes # (A) 0.5 k/uL (0-1.0); Monocytes % (A) 3 %; Neutrophils % (A) 91 %; Platelet Count 640 k/uL (150-450); RBC 3.23 m/uL (3.80-5.40); RDW 14.9 % (11.5-15.5); WBC 17.6 k/uL (3.8-10.6)
[2020-04-15 06:01] LABS: Glucose,Whole Blood 150 mg/dL (75-99)
[2020-04-15 06:23] LABS: African American GFR (CKD) >90 (>60 ml/min/1.73 sqM); Anion Gap 6 mmol/L; Blood Urea Nitrogen 11 mg/dL (7-17); Calcium 7.5 mg/dL (8.4-10.2); Carbon Dioxide 25 mmol/L (22-30); Chloride 105 mmol/L (98-107); Glucose 150 mg/dL (74-99); Non-African American GFR(CKD) >90 (>60 ml/min/1.73 sqM); Potassium 3.7 mmol/L (3.5-5.1); Sodium 136 mmol/L (137-145)
[2020-04-15 06:54] LABS: Glucose,Whole Blood 160 mg/dL (75-99)
[2020-04-15] MEDS: INSULIN ASPART (NovoLOG) 100 UNIT/ML VIAL SQ SCH ×4 (06:59→21:07)
[2020-04-15] MEDS ORDERED: Potassium Replacement Protocol 1 EACH MISC MISCELLANE PRN (07:07)
[2020-04-15] MEDS ORDERED: POTASSIUM CHLORIDE ER 20 MEQ TAB.ER PO SCH (08:00)
[2020-04-15 08:03] LABS: Glucose,Whole Blood 189 mg/dL (75-99)
[2020-04-15] MEDS ORDERED: VANCOMYCIN IV PER PHARMACY 1 EACH MISC MISCELLANE PRN (08:52)
--- NOTE | 2020-04-15 08:55 | ECHOF ---
Referral Reason:Rule out heart disease MEASUREMENTS -------- HEIGHT: 162.6 cm WEIGHT: 44.0 kg BP: IVSd: 1.0 cm (0.6 - 1.1) LVIDd: 3.4 cm (3.9 - 5.3) LVPWd: 1.2 cm (0.6 - 1.1) IVSs: 1.2 cm LVIDs: 3.3 cm LVPWs: 1.2 cm LAESV Index (A-L): 22.17 ml/m Ao Diam: 2.3 cm (2.0 - 3.7) LA Diam: 2.7 cm (2.7 - 3.8) AV Cusp: 1.5 cm (1.5 - 2.6) MV E José Antonio: 0.93 m/s MV DecT: 182 ms MV A José Antonio: 0.85 m/s MV E/A Ratio: 1.10 RAP: 5.00 mmHg RVSP: 46.85 mmHg FINDINGS -------- This was a technically adequate study. The left ventricular size is normal. There is mild concentric left ventricular hypertrophy. Overa ll left ventricular systolic function is severely impaired with, an EF between 25 - 30 %. Increased LAP Grade 2 Diastolic Dysfunction. The right ventricle is normal in size. The left atrial size is normal. Left atrium is normal size by volume. The right atrial size is normal. The aortic valve is trileaflet and appears structurally normal. The mitral valve is normal. The mitral valve leaflets are mildly thickened. Mild mitral regurgita tion is present. The tricuspid valve appears structurally normal. Mild tricuspid regurgitation present. There is m ild pulmonary hypertension. The right ventricular systolic pressure, as measured by Doppler, is 46. 85mmHg. There is no pulmonic regurgitation present. The aortic root size is normal. The inferior vena cava was not well visualized. There is a trivial pericardial effusion present. CONCLUSIONS -------- 1. The left ventricular size is normal. 2. There is mild concentric left ventricular hypertrophy. 3. Overall left ventricular systolic function is severely impaired with, an EF between 25 - 30 %. 4. Increased LAP Grade 2 Diastolic Dysfunction. 5. The mitral valve leaflets are mildly thickened. 6. Mild mitral regurgitation is present. 7. There is mild pulmonary hypertension. 8. The right ventricular systolic pressure, as measured by Doppler, is 46.85mmHg. 9. There is a trivial pericardial effusion present. COMMERCIAL ROOFING ESTIMATOR: Patricia Luque RDCS
[2020-04-15] MEDS: HYDROcodone/APAP 10-325MG 1 EACH TAB PO PRN ×3 (09:03→21:08)
[2020-04-15] MEDS: ENOXAPARIN 40 MG/0.4 ML SYRINGE SQ SCH (09:05)
[2020-04-15] MEDS: SODIUM CHLORIDE 0.9% 1,000 ML IV SCH (09:05)
[2020-04-15] MEDS: PANTOPRAZOLE 40 MG/10 ML VIAL IVP SCH (09:05)
--- NOTE | 2020-04-15 09:29 | XR ---
EXAMINATION TYPE: XR chest 1V portable DATE OF EXAM: 04/15/2020 CLINICAL HISTORY: Pneumonia. TECHNIQUE: Semiupright portable view of the chest obtained COMPARISON: 04/14/2020 chest radiograph FINDINGS: Moderate bilateral pleural effusions, increased on the right versus 04/14/2020. Bibasilar a irspace opacities. The cardiac silhouette is obscured. Mediastinal silhouette normal. No pneumothorax . IMPRESSION: 1. Moderate bilateral pleural effusions, increased on the left versus 04/14/2020. Bibasilar airspace o pacities. 2. No pneumothorax.
[2020-04-15] MEDS ORDERED: VANCOMYCIN 1,000 MG in SODIUM CHLORIDE 0.9% 250 ML IVPB ONE (09:30)
[2020-04-15 11:39] LABS: Glucose,Whole Blood 167 mg/dL (75-99)
--- NOTE | 2020-04-15 11:41 | P.PN ---
Subjective Progress Note Date: 04/15/20 This is a 59-year-old female patient was brought into the emergency department by caregiver unresponsive, lethargic, hypoglycemic. The patient was in the hospital last week and the patient underwent a laparoscopic cholecystectomy for an acute cholecystitis on 04/08/2020. Note that the patient presented to the hospital because of symptoms of acute cholecystitis. She was having right upper quadrant pain. The pain was radiating to the back. She has some nausea. She had elevated white cell count of 18. She had low-grade fever. Ultrasound the gallbladder showed inflammation with fluid. LFTs were normal except for some mild elevation of alkaline phosphatase. The patient underwent the surgery and the patient was discharged home on Ceftin for a total of 5 days. She was also given incentive spirometer. Noted the chest x-ray prior to discharge showed a right-sided pleural effusion that was small. The patient came in today because of feeling lethargic and she was found to be quite lethargic and unresponsive by the caregiver. At the time of arrival the patient was found to be hypoglycemic. Her blood sugar was in the 40s. She was given 3 A of D50 based on 3 episodes of hypoglycemia that occurred since her being transferred to the hospital. The patient also had taken 2 tablets of 30 mg of morphine and was given to her by a friend. She was given Narcan in the emergency department. She became agitated and following that she was given Ativan and currently she is resting comfortably in bed. Based on her presentation, a CAT scan of the abdomen and pelvis was done and the CAT scan showed a large multi loculated collection in the right lower lobe of the lung with components measuring 4 x 3.3 and 6 x 4.4 cm in size respectively. There was internal air identified. Finding was consistent with a lung abscess. There was also evidence of small bowel thickening, nonspecific colitis and there was also evidence of a large right-sided pleural effusion. I saw the patient emergency department. She was still not fully communicating. She was lethargic. She would withdraw to painful additional 4 extremities. I was able to drain approximately 1.2 L of pleural fluid from the right lung. The pleural fluid was turbid dark yellowish in color. The patient tolerated the procedure well. Postprocedure chest x-ray showed no evidence of any pneumothorax. There is a persistent right lower lobe opacity with diminution of the pleural effusion. Note that the patient was having diarrhea and she has had previous history of C. diff colitis. A fecal management system was attached. The patient will be transferred to the intensive care unit. On 04/15/2020, the patient wide awake alert and communicating and following commands and answering questions. Marked improvement in his neurologic status compared to yesterday. She is requesting painkillers. She has body aches all o nadir and she is requesting painkillers and this is her main concern. Meanwhile, the patient is still bilateral pneumonia. After performing a thoracentesis yesterday which do not to be a transudate, I performed a CAT scan of the chest and the CAT scan showed extensive bilateral pneumonic infiltrates that is worse on the right compared to the left. There is also better pleural effusion and small. No empyema based on the pleural fluid analysis. Infiltrates are quite extensive and there is some mild mucin lymphadenopathy consistent with inflammatory disease. There is dense right middle lobe consolidation. No lung abscess was visualized. Based on all this, and based on the concern of a hos pital-acquired pneumonia, assess this patient a combination of Zosyn and vancomycin. The patient is not having any diarrhea at this point in time. Stool for C. diff was not collected. I think IV Flagyl can be discontinued. The white cell count is at 17.6. Function is stable with a creatinine of 0.2. No diarrhea. No abdominal pain. No nausea or vomiting. Objective - Vital Signs Vital signs: Vital Signs Temp 99.4 F 04/15/20 08:00 Pulse 114 H 04/15/20 11:00 Resp 22 04/15/20 11:00 BP 115/65 04/15/20 11:00 Pulse Ox 93 L 04/15/20 11:00 Intake & Output 04/14/20 04/15/20 04/15/20 18:59 06:59 18:59 Intake Total 200 2350 550 Output Total 860 500 102 Balance -660 1850 448 Weight 44 kg 54 kg Intake: IV 1000 Normal Saline bolus 1000 Intake, IV Titration 200 1350 250 Amount Dextrose 5%-0.9% NaCl 1, 200 1250 100 000 ml @ 100 mls/hr IV . Q10H [facility] Rx#:[id number] Sodium Chloride 0.9% 1, 150 000 ml @ 50 mls/hr IV . Q20H [facility] Rx#:[id number] metroNIDAZOLE-NS PMX 500 100 mg In Saline 1 100ml.bag @ 100 mls/hr IVPB Q8HR [facility] Rx#:[id number] Oral 300 Output: Urine 860 500 102 Other: Voiding Method Indwelling Catheter Indwelling Catheter Indwelling Catheter - Exam Gen. appearance the patient awake and alert and is no focal neurological deficits Head exam was generally normal. There was no scleral icterus or corneal arcus. Mucous membranes were moist. Neck was supple and without jugular venous distension, thyromegaly, or carotid bruits. Carotids were easily palpable bilaterally. There was no adenopathy. Lungs sounds are diminished in the right lung base along with dullness to percussion Cardiac exam revealed the PMI to be normally situated and sized. The rhythm was regular and no extrasystoles were noted during several minutes of auscultation. The first and second heart sounds were normal and physiologic splitting of the second heart sound was noted. There were no murmurs, rubs, clicks, or gallops. Abdominal exam revealed normal bowel sounds. The abdomen was soft, non-tender, and without masses, organomegaly, or appreciable enlargement of the abdominal aorta. Surgical scar over the right upper quadrant area at the site of laparoscopic cholecystectomy tract infection and intact. No direct tenderness. No rebound tenderness. No guarding. Examination of the extremities revealed easily palpable radial, femoral and pedal pulses. There was no cyanosis, clubbing or edema. Examination of the skin revealed no evidence of significant rashes, suspicious appearing nevi or other concerning lesions. Neurologically, the patient is awake and alert and the patient does not have any focal neurological deficit. Cranial nerves are essentially intact. - Labs CBC & Chem 7: 04/15/20 05:23 04/15/20 05:23 Labs: Abnormal Lab Results - Last 24 Hours (Table) 04/14/20 04/14/20 04/14/20 Range/Units 12:30 14:17 15:36 WBC (3.8-10.6) k/uL RBC (3.80-5.40) m/uL Hgb (11.4-16.0) gm/dL Hct (34.0-46.0) % MCHC (31.0-37.0) g/dL Plt Count (150-450) k/uL Neutrophils # (1.3-7.7) k/uL Sodium (137-145) mmol/L Creatinine (0.52-1.04) mg/dL Glucose (74-99) mg/dL POC Glucose (mg/dL) 74 L 147 H (75-99) mg/dL Plasma Lactic Acid Yan 2.7 H* (0.7-2.0) mmol/L Calcium (8.4-10.2) mg/dL 04/14/20 04/14/20 04/14/20 Range/Units 16:41 17:04 18:20 WBC (3.8-10.6) k/uL RBC (3.80-5.40) m/uL Hgb (11.4-16.0) gm/dL Hct (34.0-46.0) % MCHC (31.0-37.0) g/dL Plt Count (150-450) k/uL Neutrophils # (1.3-7.7) k/uL Sodium (137-145) mmol/L Creatinine (0.52-1.04) mg/dL Glucose (74-99) mg/dL POC Glucose (mg/dL) 113 H 108 H 116 H (75-99) mg/dL Plasma Lactic Acid Yan (0.7-2.0) mmol/L Calcium (8.4-10.2) mg/dL 04/14/20 04/14/20 04/14/20 Range/Units 19:01 20:42 21:58 WBC (3.8-10.6) k/uL RBC (3.80-5.40) m/uL Hgb (11.4-16.0) gm/dL Hct (34.0-46.0) % MCHC (31.0-37.0) g/dL Plt Count (150-450) k/uL Neutrophils # (1.3-7.7) k/uL Sodium (137-145) mmol/L Creatinine (0.52-1.04) mg/dL Glucose (74-99) mg/dL POC Glucose (mg/dL) 111 H 112 H 121 H (75-99) mg/dL Plasma Lactic Acid Yan (0.7-2.0) mmol/L Calcium (8.4-10.2) mg/dL 04/14/20 04/14/20 04/15/20 Range/Units 22:58 23:57 00:59 WBC (3.8-10.6) k/uL RBC (3.80-5.40) m/uL Hgb (11.4-16.0) gm/dL Hct (34.0-46.0) % MCHC (31.0-37.0) g/dL Plt Count (150-450) k/uL Neutrophils # (1.3-7.7) k/uL Sodium (137-145) mmol/L Creatinine (0.52-1.04) mg/dL Glucose (74-99) mg/dL POC Glucose (mg/dL) 131 H 154 H 133 H (75-99) mg/dL Plasma Lactic Acid Yan (0.7-2.0) mmol/L Calcium (8.4-10.2) mg/dL 04/15/20 04/15/20 04/15/20 Range/Units 02:03 03:02 03:58 WBC (3.8-10.6) k/uL RBC (3.80-5.40) m/uL Hgb (11.4-16.0) gm/dL Hct (34.0-46.0) % MCHC (31.0-37.0) g/dL Plt Count (150-450) k/uL Neutrophils # (1.3-7.7) k/uL Sodium (137-145) mmol/L Creatinine (0.52-1.04) mg/dL Glucose (74-99) mg/dL POC Glucose (mg/dL) 137 H 140 H 149 H (75-99) mg/dL Plasma Lactic Acid Yan (0.7-2.0) mmol/L Calcium (8.4-10.2) mg/dL 04/15/20 04/15/20 04/15/20 Range/Units 05:02 05:23 05:23 WBC 17.6 H (3.8-10.6) k/uL RBC 3.23 L (3.80-5.40) m/uL Hgb 9.1 L (11.4-16.0) gm/dL Hct 30.1 L (34.0-46.0) % MCHC 30.3 L (31.0-37.0) g/dL Plt Count 640 H (150-450) k/uL Neutrophils # 16.0 H (1.3-7.7) k/uL Sodium 136 L (137-145) mmol/L Creatinine 0.26 L (0.52-1.04) mg/dL Glucose 150 H (74-99) mg/dL POC Glucose (mg/dL) 147 H (75-99) mg/dL Plasma Lactic Acid Yan (0.7-2.0) mmol/L Calcium 7.5 L (8.4-10.2) mg/dL 04/15/20 04/15/20 04/15/20 Range/Units 06:00 06:52 08:02 WBC (3.8-10.6) k/uL RBC (3.80-5.40) m/uL Hgb (11.4-16.0) gm/dL Hct (34.0-46.0) % MCHC (31.0-37.0) g/dL Plt Count (150-450) k/uL Neutrophils # (1.3-7.7) k/uL Sodium (137-145) mmol/L Creatinine (0.52-1.04) mg/dL Glucose (74-99) mg/dL POC Glucose (mg/dL) 150 H 160 H 189 H (75-99) mg/dL Plasma Lactic Acid Yan (0.7-2.0) mmol/L Calcium (8.4-10.2) mg/dL Microbiology - Last 24 Hours (Table) 04/14/20 15:54 Gram Stain - Preliminary Pleural Fluid Body Fluid Culture - Preliminary 04/14/20 15:54 Acid Fast Bacilli Culture - Preliminary Pleural Fluid 04/14/20 15:54 Fungal Culture - Preliminary Pleural Fluid Assessment and Plan Plan: 1 bilateral lower lobe pneumonia right more than left. The patient has extensive consolidation of the right lower lobe and the right middle lobe and addition to a parapneumonic effusion on the right that was drained in box turner to be translated there is no evidence of any empyema at this point in time. Nevertheless, hospital-acquired pneumonia including gram-negative or anaerobic infection can be considered especially the patient has some gas forming elements in the right lung base on the previous CAT scan. The previously described complex lesion in the right lung was not seen in the follow-up CAT scan of the chest. I removed a total of 1.2 L of pleural fluid from the patient's lung yesterday without any complications. Currently she is on Zosyn. 2 acute hypoxic respiratory failure secondary to above 3 altered mental status currently under investigation. Rule out metabolic encephalopathy. Rule out drug induced encephalopathy. The patient neurologic Function Is Back to Its Baseline 4 episodic hypoglycemia treated with D50, recovered and the blood sugar is improved 5 diabetes mellitus type 2, poorly controlled on outpatient basis 6 post cholecystectomy and surgery was done on 04/08/2020 7 previous history of UTI 8 previous history of C. diff colitis and the patient is having extensive diarrhea and fecal management system was inserted. Rule out recurrent C. diff colitis specially the patient was taking antibiotics on outpatient basis 9 fibromyalgia 10 hypertension 11 hyperlipidemia 12 chronic pain syndrome with degenerative disc disease 13 former smoker 14 depression 15 opiates intake post Narcan treatment 16 leukocytosis white cell count is at 15 17 troponin leak 18 mild lactic acidosis Plan Continue IV Zosyn and add vancomycin for hospital-acquired gram-negative and staphylococcal pneumonia as Stop the Flagyl Awaiting pleural fluid cultures and analysis CAT scan of the chest was noted Put the patient on Wilbur 10 every 6 hours on a when necessary basis for pain control Put the patient on normal saline at rate of 50 mL an hour Lovenox DVT prophylaxis Provide diet We'll continue to follow
--- NOTE | 2020-04-15 13:05 | P.CRDCN ---
History of Present Illness History of present illness: This is Shima Lemus PA-C dictating a consult on this patient The patient was interviewed and examined by me as well as by Dr. Lundy Case discussed with Dr. Lundy and he agrees with the plan of care HPI Patient is a 59-year-old female with a history of diabetes, neuropathy, and chronic pain who recently underwent a laparoscopic cholecystectomy and was brought in for altered mental status by her caregiver. She does not see a instructor ballroom dancing and states she has never seen one for any reason. Patient is a poor historian and was unable to give any details about what brought her into the hospital. History was obtained from the chart. She states the last thing she remembers is going to bed. She doesn't remember any specific symptoms before going to bed. She complained of chronic aches and pains but states this was not something new for her. Upon arrival to the emergency department her chest x-ray showed increasing patchy right parahilar and right basilar infiltrate with associated pleural effusion. Brain CT showed age-related atrophic and chronic small vessel ischemic changes without any acute intracranial process. CT of the abdomen and pelvis showed large multiloculated collection in the right lower lobe compatible with pulmonary abscess, small bowel thickening. Chest CT showed extensive bilateral pneumonic infiltrates worse on the right, bilateral pleural effusions, dense right middle lobe consolidation. EKG shows sinus mechanism with ST changes V3 through V5. Labs significant for WBC 15.3. She underwent thoracentesis and drained 1.2 L of turbid dark yellow fluid. She was admitted to the ICU. She is on IV antibiotics. Patient seen and examined in the ICU. Mentation seems to have improved somewhat. She complains of body aches all over. Denies any chest pain. Does complain of shortness of breath. ROS: Unable to obtain secondary to patient is a poor historian EXAMINATION: Temperature 99.4F, pulse 114, respirations 22, blood pressure 115/65, oxygen saturation 93% on 5 L nasal cannula Patient seen and examined in the ICU, does not appear to be in any acute distress Lungs are rhonchorous with pleural friction rub auscultated on the left Heart is tachycardic, no audible murmurs No JVD No lower extremity edema REVIEW OF LABS, ECG & MEDICAL DATA WBC 17.6, hemoglobin 9.1, platelets 640, potassium 3.7, BUN 11, creatinine 0.26 Troponin 0.216 Drug screen positive for opiates and benzos C. diff negative Echocardiogram shows EF 25-30% IMPRESSION / ASSESSMENT: #1 bilateral lower lobe pneumonia, possible pulmonary abscess, status post thoracentesis, on IV antibiotics #2 newly discovered cardiomyopathy, EF 25-30%, in the setting of pneumonia and possible pulmonary abscess #3 abnormal troponins likely secondary to above #4 diabetes #5 neuropathy and chronic pain #6 recent laparoscopic cholecystectomy #7 altered mental status, seems to be improving PLAN: Medical treatment for cardiomyopathy Start metoprolol succinate 25 mg daily Start lisinopril 5 mg at night Start atorvastatin 20 mg daily Start aspirin 81 mg daily Cardiac workup for cardiomyopathy after resolution of pulmonary infiltrates Past Medical History Past Medical History: Diabetes Mellitus, Fibromyalgia, Hyperlipidemia Additional Past Medical History / Comment(s): myalgia, myositis, sciatica, chronic pain syndrome, vaginitis, otalgia, fatigue, malaise, UTI, microscopic hematuria, tachycardia, insomnia, lumbago, degenerative disc, colitis History of Any Multi-Drug Resistant Organisms: C-DIFF Date of last positivie culture/infection: February 15 2020 MDRO Source:: stool Past Surgical History: Orthopedic Surgery, Tubal Ligation Additional Past Surgical History / Comment(s): left wrist Past Anesthesia/Blood Transfusion Reactions: No Reported Reaction Past Psychological History: Depression Smoking Status: Former smoker Past Alcohol Use History: None Reported Past Drug Use History: None Reported - Past Family History Mother Family Medical History: Cancer, COPD Additional Family Medical History / Comment(s): cervical cancer Father Additional Family Medical History / Comment(s): etoh abuse Medications and Allergies Home Medications Medication Instructions Recorded Confirmed Type Acetaminophen [Tylenol] 1,000 mg PO DAILY PRN 03/12/20 04/14/20 History DULoxetine HCL [Cymbalta] 30 mg PO DAILY 03/12/20 04/14/20 History Insulin NPH Hum/Reg Insulin Hm 22 units SQ BID-W/MEALS 03/12/20 04/14/20 History [Novolin 70-30 Flexpen] metFORMIN HCL [Glucophage] 1,000 mg PO Q12H 03/12/20 04/14/20 History Cefuroxime Axetil [Ceftin] 500 mg PO BID 5 Days #10 tab 04/12/20 04/14/20 Rx Cholestyramine (with Sugar) 4 gm PO TID #30 packet 04/12/20 04/14/20 Rx [Questran] Gabapentin [Neurontin] 100 mg PO QAM #6 cap 04/12/20 04/14/20 Rx Gabapentin [Neurontin] 200 mg PO HS #3 cap 04/12/20 04/14/20 Rx HYDROcodone/APAP 10-325MG [[place] 1 tab PO Q6H PRN #6 tab 04/12/20 04/14/20 Rx 10-325] Loperamide [Imodium] 2 mg PO QID #30 cap 04/12/20 04/14/20 Rx Allergies Allergy/AdvReac Type Severity Reaction Status Date / Time pregabalin [From Lyrica] AdvReac Swelling Verified 04/14/20 10:07 trazodone AdvReac Unknown Verified 04/14/20 10:07 Physical Exam Vitals: Vital Signs Temp Pulse Resp BP Pulse Ox 04/15/20 11:00 114 H 22 115/65 93 L 04/15/20 10:00 112 H 20 117/81 93 L 04/15/20 09:00 110 H 33 H 110/72 92 L 04/15/20 08:00 99.4 F 112 H 26 H 126/80 92 L 04/15/20 07:00 112 H 20 131/74 94 L 04/15/20 06:00 113 H 25 H 124/79 92 L 04/15/20 05:00 109 H 20 128/78 94 L 04/15/20 04:00 99.5 F 112 H 28 H 119/82 94 L 04/15/20 03:00 112 H 26 H 135/90 93 L 04/15/20 02:00 111 H 20 133/87 97 04/15/20 01:00 112 H 22 140/86 95 04/15/20 00:00 99.1 F 110 H 20 138/84 96 04/14/20 23:00 111 H 23 132/75 96 04/14/20 22:00 108 H 22 116/93 95 04/14/20 21:07 95 04/14/20 21:00 114 H 20 123/83 95 04/14/20 20:00 99 F 111 H 20 139/95 94 L 04/14/20 19:00 109 H 19 146/98 98 04/14/20 18:00 118 H 12 130/92 96 04/14/20 17:00 98.9 F 107 H 20 131/88 93 L 04/14/20 16:44 27 H 94 L 04/14/20 16:25 96.8 F L 114 H 18 129/84 94 L 04/14/20 16:00 111 H 18 138/93 93 L 04/14/20 14:30 144 H 18 95/72 92 L 04/14/20 13:30 118 H 20 130/91 95 04/14/20 13:24 120 H 04/14/20 13:18 116 H Intake and Output 04/14/20 04/15/20 04/15/20 22:59 06:59 14:59 Intake Total 1700 850 550 Output Total 1020 340 102 Balance 680 510 448 Intake: IV 1000 Normal Saline bolus 1000 Intake, IV Titration 700 850 250 Amount Dextrose 5%-0.9% NaCl 1, 600 850 100 000 ml @ 100 mls/hr IV . Q10H [facility] Rx#:[id number] Sodium Chloride 0.9% 1, 150 000 ml @ 50 mls/hr IV . Q20H [facility] Rx#:[id number] metroNIDAZOLE-NS PMX 500 100 mg In Saline 1 100ml.bag @ 100 mls/hr IVPB Q8HR [facility] Rx#:[id number] Oral 300 Output: Urine 1020 340 102 Other: Voiding Method Indwelling Catheter Indwelling Catheter Indwelling Catheter Weight 54 kg Results 04/15/20 05:23 04/15/20 05:23 CBC 04/15/20 Range/Units 05:23 WBC 17.6 H (3.8-10.6) k/uL RBC 3.23 L (3.80-5.40) m/uL Hgb 9.1 L (11.4-16.0) gm/dL Hct 30.1 L (34.0-46.0) % Plt Count 640 H (150-450) k/uL Comprehensive Metabolic Panel 04/15/20 Range/Units 05:23 Sodium 136 L (137-145) mmol/L Potassium 3.7 (3.5-5.1) mmol/L Chloride 105 (98-107) mmol/L Carbon Dioxide 25 (22-30) mmol/L BUN 11 (7-17) mg/dL Creatinine 0.26 L (0.52-1.04) mg/dL Glucose 150 H (74-99) mg/dL Calcium 7.5 L (8.4-10.2) mg/dL Current Medications Generic Name Dose Route Start Last Admin Trade Name Freq PRN Reason Stop Dose Admin Hydrocodone Bitart/Acetaminophen 1 each 04/15/20 08:55 04/15/20 09:03 Hydrocodone/Apap 10-325mg 1 Each Tab PO 1 each Q6H PRN Administration Pain Aspirin 81 mg 04/16/20 09:00 Aspirin 81 Mg PO DAILY [facility] Atorvastatin Calcium 20 mg 04/15/20 21:00 Atorvastatin 20 Mg Tab PO HS [facility] Enoxaparin Sodium 40 mg 04/14/20 17:15 04/15/20 09:05 Enoxaparin 40 Mg/0.4 Ml Syringe SQ 40 mg DAILY [facility] Administration Piperacillin Sod/Tazobactam 100 mls @ 25 mls/hr 04/14/20 14:30 04/15/20 05:43 Sod 3.375 gm/ Sodium Chloride IVPB 25 mls/hr Q8H [facility] Administration Sodium Chloride 1,000 mls @ 50 mls/hr 04/15/20 09:00 04/15/20 09:05 Saline 0.9% IV 50 mls/hr .Q20H [facility] Administration Vancomycin HCl 1,000 mg/ 250 mls @ 125 mls/hr 04/15/20 16:00 Sodium Chloride IVPB Q8H [facility] Insulin Aspart 0 unit 04/14/20 17:30 04/15/20 11:54 Insulin Aspart (Novolog) 100 Unit/Ml Vial SQ 2 unit ACHS [facility] Administration Protocol Lisinopril 5 mg 04/15/20 18:00 Lisinopril 5 Mg Tab PO DAILY [facility] Metoprolol Succinate 25 mg 04/15/20 13:15 Metoprolol Succinate (Er) 25 Mg Tab.Er.24h PO DAILY [facility] Miscellaneous Information 1 each 04/14/20 13:32 Pneumonia Protocol Utilized 1 Each Misc PO ONCE PRN Per Protocol Miscellaneous Information 1 each 04/14/20 17:03 Rx Info: Iv Contrast Was Given 1 Each Misc MISCELLANE 04/16/20 17:04 DAILY PRN Per Protocol Miscellaneous Information 1 each 04/15/20 07:07 Potassium Replacement Protocol 1 Each Misc MISCELLANE DAILY PRN Per Protocol Protocol Miscellaneous Information 1 each 04/16/20 07:00 Vancomycin Trough Due 1 Each Misc MISCELLANE 04/16/20 07:01 ONCE ONE Pantoprazole Sodium 40 mg 04/14/20 17:15 04/15/20 09:05 Pantoprazole 40 Mg/10 Ml Vial IVP 40 mg DAILY [facility] Administration Intake and Output 04/14/20 04/15/20 04/15/20 22:59 06:59 14:59 Intake Total 1700 850 550 Output Total 1020 340 102 Balance 680 510 448 Intake: IV 1000 Normal Saline bolus 1000 Intake, IV Titration 700 850 250 Amount Dextrose 5%-0.9% NaCl 1, 600 850 100 000 ml @ 100 mls/hr IV . Q10H [facility] Rx#:[id number] Sodium Chloride 0.9% 1, 150 000 ml @ 50 mls/hr IV . Q20H [facility] Rx#:[id number] metroNIDAZOLE-NS PMX 500 100 mg In Saline 1 100ml.bag @ 100 mls/hr IVPB Q8HR [facility] Rx#:[id number] Oral 300 Output: Urine 1020 340 102 Other: Voiding Method Indwelling Catheter Indwelling Catheter Indwelling Catheter Weight 54 kg 04/15/20 05:23 04/15/20 05:23
[2020-04-15] MEDS: METOPROLOL SUCCINATE (ER) 25 MG TAB.ER.24H PO SCH (14:14)
[2020-04-15] MEDS ORDERED: AZITHROMYCIN 500 MG in SODIUM CHLORIDE 0.9% 250 ML IVPB SCH (15:00)
[2020-04-15 16:24] LABS: Glucose,Whole Blood 187 mg/dL (75-99)
[2020-04-15] MEDS: VANCOMYCIN 1,000 MG in SODIUM CHLORIDE 0.9% 250 ML IVPB SCH (16:51)
--- NOTE | 2020-04-15 17:00 | P.PN ---
Subjective Progress Note Date: 04/15/20 Principal diagnosis: Right lower lobe pneumonia/abscess Ms. Falcon is a 59-year-old female with a past medical history of diabetes mellitus, fibromyalgia, hyperlipidemia, chronic pain syndrome, degenerative disc disease coming to the hospital for altered mental status changes. Patient was recently in the hospital had cholecystectomy done and was discharged home on antibiotics for right lower lobe pneumonia. Patient was found to be lethargic by her case given her and so brought into the hospital. At the time of admission patient was found to have hypoglycemia she was given 3 ampules of D50. She was also given a dose of Narcan in the ED as a caregiver set patient up 2 tablets of 30 mg of morphine. She had a CAT scan of the abdomen and pelvis showing large multiloculated collection in the right lower lobe of the lung. Eventually patient had pleural fluid drained of 1.2 L from the right lung by Dr. Ram. She is started on antibiotics and admitted to the ICU. Patient's C. diff has been negative. On 04/15/2020- patient is in the ICU. She appears to be no acute distress. Patient states that she has pain all over her body. She denies having any chest pain or difficulty in breathing. She denies having any bowel pain nausea vomiting or diarrhea. No dysuria or hematuria. Patient denies having any fevers chills or rigors. On reviewing her vitals temperature max 98.8, slightly tachycardic in 100 to 110s, respiratory rate around 20-30, blood pressure 1 20 x 72 saturating at 94% on 5 L of oxygen. On reviewing her labs white count of 17.6, hemoglobin 9.1, platelets of 614. Sodium 136, palpitations 3.7, chloride 105, bicarbonate 25, B and 11, creatinine 0.26. Troponin slightly elevated at the time of admission and 0.216. Active Medications Hydrocodone Bitart/Acetaminophen (Hydrocodone/Apap 10-325mg 1 Each Tab) 1 each PO Q6H PRN PRN Reason: Pain Last Admin: 04/15/20 15:02 Dose: 1 each Documented by: Aspirin (Aspirin 81 Mg) 81 mg PO DAILY [facility] Atorvastatin Calcium (Atorvastatin 20 Mg Tab) 20 mg PO HS [facility] Enoxaparin Sodium (Enoxaparin 40 Mg/0.4 Ml Syringe) 40 mg SQ DAILY [facility] Last Admin: 04/15/20 09:05 Dose: 40 mg Documented by: Gabapentin (Gabapentin 100 Mg Cap) 200 mg PO HS [facility] Piperacillin Sod/Tazobactam (Sod 3.375 gm/ Sodium Chloride) 100 mls @ 25 mls/hr IVPB Q8H [facility] Last Admin: 04/15/20 14:13 Dose: 25 mls/hr Documented by: Sodium Chloride (Saline 0.9%) 1,000 mls @ 50 mls/hr IV .Q20H [facility] Last Admin: 04/15/20 09:05 Dose: 50 mls/hr Documented by: Vancomycin HCl 1,000 mg/ (Sodium Chloride) 250 mls @ 125 mls/hr IVPB Q8H [facility] Insulin Aspart (Insulin Aspart (Novolog) 100 Unit/Ml Vial) 0 unit SQ ACHS [facility]; Protocol Last Admin: 04/15/20 11:54 Dose: 2 unit Documented by: Lisinopril (Lisinopril 5 Mg Tab) 5 mg PO Q24H [facility] Metoprolol Succinate (Metoprolol Succinate (Er) 25 Mg Tab.Er.24h) 25 mg PO DAILY [facility] Last Admin: 04/15/20 14:14 Dose: 25 mg Documented by: Miscellaneous Information (Pneumonia Protocol Utilized 1 Each Misc) 1 each PO ONCE PRN PRN Reason: Per Protocol Miscellaneous Information (Rx Info: Iv Contrast Was Given 1 Each Misc) 1 each MISCELLANE DAILY PRN PRN Reason: Per Protocol Stop: 04/16/20 17:04 Miscellaneous Information (Potassium Replacement Protocol 1 Each Misc) 1 each MISCELLANE DAILY PRN; Protocol PRN Reason: Per Protocol Miscellaneous Information (Vancomycin Trough Due 1 Each Misc) 1 each MISCELLANE ONCE ONE Stop: 04/16/20 07:01 Pantoprazole Sodium (Pantoprazole 40 Mg/10 Ml Vial) 40 mg IVP DAILY [facility] Last Admin: 04/15/20 09:05 Dose: 40 mg Documented by: Objective - Vital Signs Vital signs: Vital Signs Temp 98.8 F 04/15/20 12:00 Pulse 112 H 04/15/20 14:00 Resp 26 H 04/15/20 14:00 BP 111/73 04/15/20 14:00 Pulse Ox 94 L 04/15/20 14:00 Intake & Output 04/14/20 04/15/20 04/15/20 18:59 06:59 18:59 Intake Total 200 2350 1050 Output Total 860 500 147 Balance -660 4980 903 Weight 44 kg 54 kg Intake: IV 1000 Normal Saline bolus 1000 Intake, IV Titration 200 1350 350 Amount Dextrose 5%-0.9% NaCl 1, 200 1250 100 000 ml @ 100 mls/hr IV . Q10H [facility] Rx#:[id number] Sodium Chloride 0.9% 1, 250 000 ml @ 50 mls/hr IV . Q20H [facility] Rx#:[id number] metroNIDAZOLE-NS PMX 500 100 mg In Saline 1 100ml.bag @ 100 mls/hr IVPB Q8HR [facility] Rx#:[id number] Oral 700 Output: Urine 860 500 147 Other: Voiding Method Indwelling Catheter Indwelling Catheter Indwelling Catheter - Exam PHYSICAL EXAM GENERAL: Patient is awake alert and oriented. Cachectic. HEENT: Pupils are round and equally reacting to light. EOMI. No scleral icterus. No conjunctival pallor. Normocephalic, atraumatic. No pharyngeal erythema. No thyromegaly. CARDIOVASCULAR: S1 and S2 present. No murmurs, rubs, or gallops. PULMONARY: Chest is clear to auscultation, no wheezing or crackles. ABDOMEN: Soft, nontender, nondistended, normoactive bowel sounds. Surgical scars for laparoscopy in place No palpable organomegaly. EXTREMITIES: No cyanosis, clubbing, or pedal edema. NEUROLOGICAL: No focal neurological deficits. Alert awake oriented 3. SKIN: No rashes. no petechiae - Labs CBC & Chem 7: 04/15/20 05:23 04/15/20 05:23 Labs: Abnormal Lab Results - Last 24 Hours (Table) 04/14/20 04/14/20 04/14/20 Range/Units 16:41 17:04 18:20 WBC (3.8-10.6) k/uL RBC (3.80-5.40) m/uL Hgb (11.4-16.0) gm/dL Hct (34.0-46.0) % MCHC (31.0-37.0) g/dL Plt Count (150-450) k/uL Neutrophils # (1.3-7.7) k/uL Sodium (137-145) mmol/L Creatinine (0.52-1.04) mg/dL Glucose (74-99) mg/dL POC Glucose (mg/dL) 113 H 108 H 116 H (75-99) mg/dL Calcium (8.4-10.2) mg/dL 04/14/20 04/14/20 04/14/20 Range/Units 19:01 20:42 21:58 WBC (3.8-10.6) k/uL RBC (3.80-5.40) m/uL Hgb (11.4-16.0) gm/dL Hct (34.0-46.0) % MCHC (31.0-37.0) g/dL Plt Count (150-450) k/uL Neutrophils # (1.3-7.7) k/uL Sodium (137-145) mmol/L Creatinine (0.52-1.04) mg/dL Glucose (74-99) mg/dL POC Glucose (mg/dL) 111 H 112 H 121 H (75-99) mg/dL Calcium (8.4-10.2) mg/dL 04/14/20 04/14/20 04/15/20 Range/Units 22:58 23:57 00:59 WBC (3.8-10.6) k/uL RBC (3.80-5.40) m/uL Hgb (11.4-16.0) gm/dL Hct (34.0-46.0) % MCHC (31.0-37.0) g/dL Plt Count (150-450) k/uL Neutrophils # (1.3-7.7) k/uL Sodium (137-145) mmol/L Creatinine (0.52-1.04) mg/dL Glucose (74-99) mg/dL POC Glucose (mg/dL) 131 H 154 H 133 H (75-99) mg/dL Calcium (8.4-10.2) mg/dL 04/15/20 04/15/20 04/15/20 Range/Units 02:03 03:02 03:58 WBC (3.8-10.6) k/uL RBC (3.80-5.40) m/uL Hgb (11.4-16.0) gm/dL Hct (34.0-46.0) % MCHC (31.0-37.0) g/dL Plt Count (150-450) k/uL Neutrophils # (1.3-7.7) k/uL Sodium (137-145) mmol/L Creatinine (0.52-1.04) mg/dL Glucose (74-99) mg/dL POC Glucose (mg/dL) 137 H 140 H 149 H (75-99) mg/dL Calcium (8.4-10.2) mg/dL 04/15/20 04/15/20 04/15/20 Range/Units 05:02 05:23 05:23 WBC 17.6 H (3.8-10.6) k/uL RBC 3.23 L (3.80-5.40) m/uL Hgb 9.1 L (11.4-16.0) gm/dL Hct 30.1 L (34.0-46.0) % MCHC 30.3 L (31.0-37.0) g/dL Plt Count 640 H (150-450) k/uL Neutrophils # 16.0 H (1.3-7.7) k/uL Sodium 136 L (137-145) mmol/L Creatinine 0.26 L (0.52-1.04) mg/dL Glucose 150 H (74-99) mg/dL POC Glucose (mg/dL) 147 H (75-99) mg/dL Calcium 7.5 L (8.4-10.2) mg/dL 04/15/20 04/15/20 04/15/20 Range/Units 06:00 06:52 08:02 WBC (3.8-10.6) k/uL RBC (3.80-5.40) m/uL Hgb (11.4-16.0) gm/dL Hct (34.0-46.0) % MCHC (31.0-37.0) g/dL Plt Count (150-450) k/uL Neutrophils # (1.3-7.7) k/uL Sodium (137-145) mmol/L Creatinine (0.52-1.04) mg/dL Glucose (74-99) mg/dL POC Glucose (mg/dL) 150 H 160 H 189 H (75-99) mg/dL Calcium (8.4-10.2) mg/dL 04/15/20 Range/Units 11:38 WBC (3.8-10.6) k/uL RBC (3.80-5.40) m/uL Hgb (11.4-16.0) gm/dL Hct (34.0-46.0) % MCHC (31.0-37.0) g/dL Plt Count (150-450) k/uL Neutrophils # (1.3-7.7) k/uL Sodium (137-145) mmol/L Creatinine (0.52-1.04) mg/dL Glucose (74-99) mg/dL POC Glucose (mg/dL) 167 H (75-99) mg/dL Calcium (8.4-10.2) mg/dL Microbiology - Last 24 Hours (Table) 04/14/20 12:30 Blood Culture - Preliminary Blood No Growth after 24 hours 04/14/20 15:54 Gram Stain - Preliminary Pleural Fluid Body Fluid Culture - Preliminary 04/14/20 15:54 Acid Fast Bacilli Culture - Preliminary Pleural Fluid 04/14/20 15:54 Fungal Culture - Preliminary Pleural Fluid Assessment and Plan Assessment: ASSESSMENT Acute encephalopathy- multiple etiology including infection(pneumonia), metab olic(hypoglycemia), drug overdose(morphine)- resolved Right lower lobe pneumonia/abscess status post 1.2 L of fluid drained Acute hypoxic respiratory failure Acute hypoglycemia resolved New onset congestive heart failure, systolic and diastolic Recent history of UTI Recent history of C. diff colitis Type 2 diabetes mellitus poorly controlled Status post cholecystectomy done 2 weeks back Hypertension Fibromyalgia Hyperlipidemia Chronic pain syndrome Depression Moderate protein calorie malnutrition Mild troponin elevation Lactic acidosis PLAN: Patient had 2.5 L of pleural fluid drained from the right lung and empirically started on antibiotics in the form of vancomycin and Zosyn. Patient's C. diff is negative, so her IV metronidazole has been discontinued. Patient had mildly elevated troponins, cardiology on board, she had an echo done showing ejection fraction of 25-30% with severely impaired left ventricular systolic function and grade 2 diastolic dysfunction. Patient has been started on beta blockers, Edwar inhibitors, statin and aspirin. Further recommendations to follow depending on the progress of the patient. The treatment plan was discussed in detail with the patient and her friend at bedside today.
[2020-04-15] MEDS: lisinopriL 5 MG TAB PO SCH (18:33)
[2020-04-15 21:01] LABS: Glucose,Whole Blood 221 mg/dL (75-99)
[2020-04-15] MEDS: ATORVASTATIN 20 MG TAB PO SCH (21:07)
[2020-04-15] MEDS: GABAPENTIN 100 MG CAP PO SCH (21:07)
[2020-04-16] MEDS: VANCOMYCIN 1,000 MG in SODIUM CHLORIDE 0.9% 250 ML IVPB SCH ×2 (00:25→09:18)
[2020-04-16 02:18] LABS: Glucose,Whole Blood 178 mg/dL (75-99)
[2020-04-16] MEDS: HYDROcodone/APAP 10-325MG 1 EACH TAB PO PRN ×4 (03:03→21:22)
[2020-04-16] MEDS ORDERED: FUROSEMIDE 10 MG/ML 4 ML VIAL IV STA (04:44)
[2020-04-16] MEDS: SODIUM CHLORIDE 0.9% 1,000 ML IV SCH (05:36)
[2020-04-16 05:39] LABS: Basophils % (A) 0 %; Eosinophils # (A) 0.2 k/uL (0-0.7); Eosinophils % (A) 1 %; HCT 32.8 % (34.0-46.0); HGB 9.8 gm/dL (11.4-16.0); Hypochromasia Moderate; Lymphocytes # (A) 1.4 k/uL (1.0-4.8); Lymphocytes % (A) 10 %; MCH 28.1 pg (25.0-35.0); MCHC 29.7 g/dL (31.0-37.0); MCV 94.5 fL (80.0-100.0); Mean Platelet Volume 6.8; Monocytes # (A) 0.6 k/uL (0-1.0); Monocytes % (A) 4 %; Neutrophils # (A) 12.5 k/uL (1.3-7.7); Neutrophils % (A) 84 %; Platelet Count 754 k/uL (150-450); RBC 3.47 m/uL (3.80-5.40); RDW 14.6 % (11.5-15.5); WBC 14.9 k/uL (3.8-10.6)
[2020-04-16 05:53] LABS: African American GFR (CKD) >90 (>60 ml/min/1.73 sqM); Anion Gap 5 mmol/L; Blood Urea Nitrogen 12 mg/dL (7-17); Calcium 7.9 mg/dL (8.4-10.2); Carbon Dioxide 24 mmol/L (22-30); Chloride 106 mmol/L (98-107); Glucose 197 mg/dL (74-99); Non-African American GFR(CKD) >90 (>60 ml/min/1.73 sqM); Potassium 3.8 mmol/L (3.5-5.1); Sodium 135 mmol/L (137-145)
[2020-04-16] MEDS ORDERED: Potassium Replacement Protocol 1 EACH MISC MISCELLANE PRN (05:55)
[2020-04-16] MEDS ORDERED: POTASSIUM CHLORIDE ER 20 MEQ TAB.ER PO SCH (06:00)
[2020-04-16] MEDS: PIPERACILLIN-TAZOBACTAM 3.375 GM in SODIUM CHLORIDE 0.9% 100 ML IVPB SCH ×3 (06:18→23:08)
--- NOTE | 2020-04-16 06:31 | XR ---
EXAMINATION TYPE: XR chest 1V portable DATE OF EXAM: 04/16/2020 COMPARISON: 04/15/2000 HISTORY: Shortness of breath FINDINGS: There are bilateral pleural effusions with cardiomegaly and bibasilar infiltrate. There is a diffuse interstitial pattern. No sizable pneumothorax. Heart size stable. IMPRESSION: 1. Diffuse pleural-parenchymal changes can be seen with pulmonary edema, ARDS or diffuse pneumonia. F indings stable.
[2020-04-16 06:36] LABS: Glucose,Whole Blood 193 mg/dL (75-99)
[2020-04-16] MEDS: INSULIN ASPART (NovoLOG) 100 UNIT/ML VIAL SQ SCH ×6 (06:46→21:22)
[2020-04-16] MEDS ORDERED: VANCOMYCIN TROUGH DUE 1 EACH MISC MISCELLANE ONE (07:00)
[2020-04-16] MEDS ORDERED: RX INFO: IV CONTRAST WAS GIVEN 1 EACH MISC MISCELLANE PRN (08:55)
[2020-04-16] MEDS: ASPIRIN 81 MG PO SCH (09:17)
[2020-04-16] MEDS: GABAPENTIN 100 MG CAP PO SCH ×2 (09:18→21:21)
[2020-04-16] MEDS: METOPROLOL SUCCINATE (ER) 25 MG TAB.ER.24H PO SCH ×2 (09:18→21:21)
[2020-04-16] MEDS: PANTOPRAZOLE 40 MG/10 ML VIAL IVP SCH (09:18)
[2020-04-16] MEDS: ENOXAPARIN 40 MG/0.4 ML SYRINGE SQ SCH (09:18)
--- NOTE | 2020-04-16 10:48 | P.PN ---
Subjective Progress Note Date: 04/16/20 This is a 59-year-old female patient was brought into the emergency department by caregiver unresponsive, lethargic, hypoglycemic. The patient was in the hospital last week and the patient underwent a laparoscopic cholecystectomy for an acute cholecystitis on 04/08/2020. Note that the patient presented to the hospital because of symptoms of acute cholecystitis. She was having right upper quadrant pain. The pain was radiating to the back. She has some nausea. She had elevated white cell count of 18. She had low-grade fever. Ultrasound the gallbladder showed inflammation with fluid. LFTs were normal except for some mild elevation of alkaline phosphatase. The patient underwent the surgery and the patient was discharged home on Ceftin for a total of 5 days. She was also given incentive spirometer. Noted the chest x-ray prior to discharge showed a right-sided pleural effusion that was small. The patient came in today because of feeling lethargic and she was found to be quite lethargic and unresponsive by the caregiver. At the time of arrival the patient was found to be hypoglycemic. Her blood sugar was in the 40s. She was given 3 A of D50 based on 3 episodes of hypoglycemia that occurred since her being transferred to the hospital. The patient also had taken 2 tablets of 30 mg of morphine and was given to her by a friend. She was given Narcan in the emergency department. She became agitated and following that she was given Ativan and currently she is resting comfortably in bed. Based on her presentation, a CAT scan of the abdomen and pelvis was done and the CAT scan showed a large multi loculated collection in the right lower lobe of the lung with components measuring 4 x 3.3 and 6 x 4.4 cm in size respectively. There was internal air identified. Finding was consistent with a lung abscess. There was also evidence of small bowel thickening, nonspecific colitis and there was also evidence of a large right-sided pleural effusion. I saw the patient emergency department. She was still not fully communicating. She was lethargic. She would withdraw to painful additional 4 extremities. I was able to drain approximately 1.2 L of pleural fluid from the right lung. The pleural fluid was turbid dark yellowish in color. The patient tolerated the procedure well. Postprocedure chest x-ray showed no evidence of any pneumothorax. There is a persistent right lower lobe opacity with diminution of the pleural effusion. Note that the patient was having diarrhea and she has had previous history of C. diff colitis. A fecal management system was attached. The patient will be transferred to the intensive care unit. On 04/15/2020, the patient wide awake alert and communicating and following commands and answering questions. Marked improvement in his neurologic status compared to yesterday. She is requesting painkillers. She has body aches all o nadir and she is requesting painkillers and this is her main concern. Meanwhile, the patient is still bilateral pneumonia. After performing a thoracentesis yesterday which do not to be a transudate, I performed a CAT scan of the chest and the CAT scan showed extensive bilateral pneumonic infiltrates that is worse on the right compared to the left. There is also better pleural effusion and small. No empyema based on the pleural fluid analysis. Infiltrates are quite extensive and there is some mild mucin lymphadenopathy consistent with inflammatory disease. There is dense right middle lobe consolidation. No lung abscess was visualized. Based on all this, and based on the concern of a hos pital-acquired pneumonia, assess this patient a combination of Zosyn and vancomycin. The patient is not having any diarrhea at this point in time. Stool for C. diff was not collected. I think IV Flagyl can be discontinued. The white cell count is at 17.6. Function is stable with a creatinine of 0.2. No diarrhea. No abdominal pain. No nausea or vomiting. 04/16/2020, the patient is doing well. Awake and alert. Tolerating diet. No significant shortness of breath. Using incentive spirometer. Chest x-ray still showing extensive consolidation of the right lung along with some infiltration of the left lung base. As mentioned earlier, a transudate pleural fluid was aspirated from the right lung. Echocardiogram was done and the patient was found also to have cardiomyopathy with an ejection fraction on the left ventricle estimated to be around 25%. The patient remains on a combination of Zosyn and vancomycin. No chest pain. She is on 6 L of oxygen by nasal cannula pH is tolerating her diet. Her pain is under good control. No diarrhea for now. Blood cultures been negative. White cell count is down to 14.9. No altered mentation. Objective - Vital Signs Vital signs: Vital Signs Temp 98.5 F 04/16/20 08:00 Pulse 105 H 04/16/20 09:00 Resp 21 04/16/20 09:00 BP 111/77 04/16/20 09:00 Pulse Ox 94 L 04/16/20 09:01 Intake & Output 04/15/20 04/16/20 04/16/20 18:59 06:59 18:59 Intake Total 2100 850 556 Output Total 207 2363 525 Balance 1893 -1513 31 Weight 60.4 kg Intake: Intake, IV Titration 1300 650 320 Amount Dextrose 5%-0.9% NaCl 1, 100 000 ml @ 100 mls/hr IV . Q10H ON LICENSE OF [facility] Rx#:[id number] Piperacillin-Tazobactam 3 200 .375 gm In Sodium Chloride 0.9% 100 ml @ 25 mls/hr IVPB Q8H [facility] Rx#: [id number] Sodium Chloride 0.9% 1, 500 650 70 000 ml @ 20 mls/hr IV . Q24H [facility] Rx#:[id number] Vancomycin 1,000 mg In 250 Sodium Chloride 0.9% 250 ml @ 125 mls/hr IVPB ONCE ONE Rx#:[id number] Vancomycin 1,000 mg In 250 250 Sodium Chloride 0.9% 250 ml @ 125 mls/hr IVPB Q8H ON LICENSE OF [facility] Rx#:[id number] Oral 800 200 236 Output: Urine 207 2363 525 Other: Voiding Method Indwelling Catheter Indwelling Catheter Indwelling Catheter - Exam Gen. appearance the patient awake and alert and is no focal neurological deficits Head exam was generally normal. There was no scleral icterus or corneal arcus. Mucous membranes were moist. Neck was supple and without jugular venous distension, thyromegaly, or carotid bruits. Carotids were easily palpable bilaterally. There was no adenopathy. Lungs sounds are diminished in the right lung base along with dullness to percussion Cardiac exam revealed the PMI to be normally situated and sized. The rhythm was regular and no extrasystoles were noted during several minutes of auscultation. The first and second heart sounds were normal and physiologic splitting of the second heart sound was noted. There were no murmurs, rubs, clicks, or gallops. Abdominal exam revealed normal bowel sounds. The abdomen was soft, non-tender, and without masses, organomegaly, or appreciable enlargement of the abdominal aorta. Surgical scar over the right upper quadrant area at the site of laparoscopic cholecystectomy tract infection and intact. No direct tenderness. No rebound tenderness. No guarding. Examination of the extremities revealed easily palpable radial, femoral and pedal pulses. There was no cyanosis, clubbing or edema. Examination of the skin revealed no evidence of significant rashes, suspicious appearing nevi or other concerning lesions. Neurologically, the patient is awake and alert and the patient does not have any focal neurological deficit. Cranial nerves are essentially intact. - Labs CBC & Chem 7: 04/16/20 05:17 04/16/20 05:17 Labs: Abnormal Lab Results - Last 24 Hours (Table) 04/15/20 04/15/20 04/15/20 Range/Units 11:38 16:22 20:59 WBC (3.8-10.6) k/uL RBC (3.80-5.40) m/uL Hgb (11.4-16.0) gm/dL Hct (34.0-46.0) % MCHC (31.0-37.0) g/dL Plt Count (150-450) k/uL Neutrophils # (1.3-7.7) k/uL Sodium (137-145) mmol/L Creatinine (0.52-1.04) mg/dL Glucose (74-99) mg/dL POC Glucose (mg/dL) 167 H 187 H 221 H (75-99) mg/dL Calcium (8.4-10.2) mg/dL 04/16/20 04/16/20 04/16/20 Range/Units 02:17 05:17 05:17 WBC 14.9 H (3.8-10.6) k/uL RBC 3.47 L (3.80-5.40) m/uL Hgb 9.8 L (11.4-16.0) gm/dL Hct 32.8 L (34.0-46.0) % MCHC 29.7 L (31.0-37.0) g/dL Plt Count 754 H (150-450) k/uL Neutrophils # 12.5 H (1.3-7.7) k/uL Sodium 135 L (137-145) mmol/L Creatinine 0.28 L (0.52-1.04) mg/dL Glucose 197 H (74-99) mg/dL POC Glucose (mg/dL) 178 H (75-99) mg/dL Calcium 7.9 L (8.4-10.2) mg/dL 04/16/20 Range/Units 06:34 WBC (3.8-10.6) k/uL RBC (3.80-5.40) m/uL Hgb (11.4-16.0) gm/dL Hct (34.0-46.0) % MCHC (31.0-37.0) g/dL Plt Count (150-450) k/uL Neutrophils # (1.3-7.7) k/uL Sodium (137-145) mmol/L Creatinine (0.52-1.04) mg/dL Glucose (74-99) mg/dL POC Glucose (mg/dL) 193 H (75-99) mg/dL Calcium (8.4-10.2) mg/dL Microbiology - Last 24 Hours (Table) 04/14/20 15:54 Acid Fast Bacilli Smear - Final Pleural Fluid Acid Fast Bacilli Culture - Preliminary 04/14/20 15:54 Gram Stain - Preliminary Pleural Fluid Body Fluid Culture - Preliminary 04/14/20 12:30 Blood Culture - Preliminary Blood No Growth after 24 hours Assessment and Plan Plan: 1 bilateral lower lobe pneumonia right more than left. The patient has ext ensive consolidation of the right lower lobe and the right middle lobe and addition to a parapneumonic effusion on the right that was drained in board turner to be translated there is no evidence of any empyema at this point in time. Nevertheless, hospital-acquired pneumonia including gram-negative or anaerobic infection can be considered especially the patient has some gas forming elements in the right lung base on the previous CAT scan. The previously described complex lesion in the right lung was not seen in the follow-up CAT scan of the chest. I removed a total of 1.2 L of pleural fluid from the patient's lung yesterday without any complications. Currently she is on Zosyn and vancomycin and a chest x-ray from today still showing persistent excessive constellation of the right lower lobe and some infiltration of the left lower lobe. The patient will need a repeat CAT scan of the chest within next 24 hours and this will be ordered with possible bronchoscopy. 2 acute hypoxic respiratory failure secondary to above, currently on 6 L of oxygen by nasal cannula 3 altered mental status recovered and the patient is back to normal 4 CHF with cardiomyopathy and an ejection fraction of 25-30% and moderate degree of pulmonary hypertension with a PA pressure of 46 5 diabetes mellitus type 2, poorly controlled on outpatient basis 6 post cholecystectomy and surgery was done on 04/08/2020 7 previous history of UTI 8 previous history of C. diff colitis and the patient is having extensive diarrhea and fecal management system was inserted. Rule out recurrent C. diff colitis specially the patient was taking antibiotics on outpatient basis 9 fibromyalgia 10 hypertension 11 hyperlipidemia 12 chronic pain syndrome with degenerative disc disease 13 former smoker 14 depression 15 opiates intake post Narcan treatment 16 leukocytosis white cell count is at 15 17 troponin leak 18 mild lactic acidosis Plan Continue IV Zosyn and add vancomycin for hospital-acquired gram-negative and staphylococcal pneumonia Caffeine of the chest to be repeated tomorrow Keep nothing by mouth for possible bronchoscopy in a.m. IV fluids to KVO Lasix 40 mg IV push 1 Incentive spirometer We'll continue to follow
[2020-04-16 11:34] LABS: Glucose,Whole Blood 234 mg/dL (75-99)
--- NOTE | 2020-04-16 12:22 | P.PN ---
Subjective This is Shima Lemus PA-C dictating a progress note on this patient The patient was interviewed and examined by me as well as by Dr. Lundy Case discussed with Dr. Lundy and he agrees with the plan of care HPI/interval history Patient is a 59-year-old female with a history of diabetes, neuropathy, and chronic pain who recently underwent a laparoscopic cholecystectomy and was brought in for altered mental status by her caregiver. Chest CT showed extensive bilateral pneumonic infiltrates worse on the right, bilateral pleural effusions, dense right middle lobe consolidation. She underwent thoracentesis and drained 1.2 L of turbid dark yellow fluid and she is on antibiotics. Her echocardiogram showed cardiomyopathy with EF 25-30%. She is being ruled out for Covid. Yesterday I started medical treatment for cardiomyopathy with metoprolol, lisinopril, statins and aspirin. Patient seen and examined in the ICU. she states she is feeling a little better today. She is still coughing. She denies any chest pain. EXAMINATION Patient is afebrile, pulse in the 100s to 1 teens, respirations 23, blood pressure 120/72, oxygen saturation 94% on 5 L nasal cannula Patient seen and examined resting in bed, not in any acute distress Lungs with pleural friction rub greater on the left, bibasilar crackles Heart is tachycardic, soft murmur at the apex No JVD Trace edema REVIEW OF LABS, ECG WBC 14.9, hemoglobin 9.8, platelets 754, potassium 3.8, BUN 12, creatinine 0.28 IMPRESSION / ASSESSMENT: #1 bilateral lower lobe pneumonia, possible pulmonary abscess, status post thoracentesis, on antibiotics, being ruled out for Covid #2 newly discovered cardiomyopathy, EF 25-30%, in the setting of pneumonia and possible pulmonary abscess #3 abnormal troponins likely secondary to above #4 diabetes #5 neuropathy and chronic pain #6 recent laparoscopic cholecystectomy #7 altered mental status, seems to be improving PLAN: Agree with Lasix Increase metoprolol to 25 mg twice a day Maximize medical treatment for cardiomyopathy Further evaluation of cardiomyopathy once her pneumonia improves Objective - Vital Signs Vital signs: Vital Signs Temp 98.5 F 04/16/20 08:00 Pulse 105 H 04/16/20 09:00 Resp 21 04/16/20 09:00 BP 111/77 04/16/20 09:00 Pulse Ox 94 L 04/16/20 09:01 Intake & Output 04/15/20 04/16/20 04/16/20 18:59 06:59 18:59 Intake Total 2100 850 556 Output Total 207 2363 525 Balance 1893 -1513 31 Weight 60.4 kg Intake: Intake, IV Titration 1300 650 320 Amount Dextrose 5%-0.9% NaCl 1, 100 000 ml @ 100 mls/hr IV . Q10H [facility] Rx#:[id number] Piperacillin-Tazobactam 3 200 .375 gm In Sodium Chloride 0.9% 100 ml @ 25 mls/hr IVPB Q8H [facility] Rx#: [id number] Sodium Chloride 0.9% 1, 500 650 70 000 ml @ 20 mls/hr IV . Q24H [facility] Rx#:[id number] Vancomycin 1,000 mg In 250 Sodium Chloride 0.9% 250 ml @ 125 mls/hr IVPB ONCE ONE Rx#:[id number] Vancomycin 1,000 mg In 250 250 Sodium Chloride 0.9% 250 ml @ 125 mls/hr IVPB Q8H [facility] Rx#:[id number] Oral 800 200 236 Output: Urine 207 2363 525 Other: Voiding Method Indwelling Catheter Indwelling Catheter Indwelling Catheter - Labs CBC & Chem 7: 04/16/20 05:17 04/16/20 05:17 Labs: Abnormal Lab Results - Last 24 Hours (Table) 04/15/20 04/15/20 04/16/20 Range/Units 16:22 20:59 02:17 WBC (3.8-10.6) k/uL RBC (3.80-5.40) m/uL Hgb (11.4-16.0) gm/dL Hct (34.0-46.0) % MCHC (31.0-37.0) g/dL Plt Count (150-450) k/uL Neutrophils # (1.3-7.7) k/uL Sodium (137-145) mmol/L Creatinine (0.52-1.04) mg/dL Glucose (74-99) mg/dL POC Glucose (mg/dL) 187 H 221 H 178 H (75-99) mg/dL Calcium (8.4-10.2) mg/dL 04/16/20 04/16/20 04/16/20 Range/Units 05:17 05:17 06:34 WBC 14.9 H (3.8-10.6) k/uL RBC 3.47 L (3.80-5.40) m/uL Hgb 9.8 L (11.4-16.0) gm/dL Hct 32.8 L (34.0-46.0) % MCHC 29.7 L (31.0-37.0) g/dL Plt Count 754 H (150-450) k/uL Neutrophils # 12.5 H (1.3-7.7) k/uL Sodium 135 L (137-145) mmol/L Creatinine 0.28 L (0.52-1.04) mg/dL Glucose 197 H (74-99) mg/dL POC Glucose (mg/dL) 193 H (75-99) mg/dL Calcium 7.9 L (8.4-10.2) mg/dL 04/16/20 Range/Units 11:33 WBC (3.8-10.6) k/uL RBC (3.80-5.40) m/uL Hgb (11.4-16.0) gm/dL Hct (34.0-46.0) % MCHC (31.0-37.0) g/dL Plt Count (150-450) k/uL Neutrophils # (1.3-7.7) k/uL Sodium (137-145) mmol/L Creatinine (0.52-1.04) mg/dL Glucose (74-99) mg/dL POC Glucose (mg/dL) 234 H (75-99) mg/dL Calcium (8.4-10.2) mg/dL Microbiology - Last 24 Hours (Table) 04/14/20 15:54 Acid Fast Bacilli Smear - Final Pleural Fluid Acid Fast Bacilli Culture - Preliminary 04/14/20 15:54 Gram Stain - Preliminary Pleural Fluid Body Fluid Culture - Preliminary 04/14/20 12:30 Blood Culture - Preliminary Blood No Growth after 24 hours
[2020-04-16 13:18] LABS: Hemoglobin A1C 9.5 % (4.0-6.0)
[2020-04-16] MEDS: VANCOMYCIN 1,250 MG in SODIUM CHLORIDE 0.9% 250 ML IVPB SCH ×2 (15:31→23:08)
[2020-04-16] MEDS ORDERED: FUROSEMIDE 10 MG/ML 4 ML VIAL IV ONE (16:00)
--- NOTE | 2020-04-16 16:01 | P.PN ---
Subjective Progress Note Date: 04/16/20 Principal diagnosis: Right lower lobe pneumonia/abscess Ms. Falcon is a 59-year-old female with a past medical history of diabetes mellitus, fibromyalgia, hyperlipidemia, chronic pain syndrome, degenerative disc disease coming to the hospital for altered mental status changes. Patient was recently in the hospital had cholecystectomy done and was discharged home on antibiotics for right lower lobe pneumonia. Patient was found to be lethargic by her case given her and so brought into the hospital. At the time of admission patient was found to have hypoglycemia she was given 3 ampules of D50. She was also given a dose of Narcan in the ED as a caregiver set patient up 2 tablets of 30 mg of morphine. She had a CAT scan of the abdomen and pelvis showing large multiloculated collection in the right lower lobe of the lung. Eventually patient had pleural fluid drained of 1.2 L from the right lung by Dr. Ram. She is started on antibiotics and admitted to the ICU. Patient's C. diff has been negative. On 04/15/2020- patient is in the ICU. She appears to be no acute distress. Patient states that she has pain all over her body. She denies having any chest pain or difficulty in breathing. She denies having any bowel pain nausea vomiting or diarrhea. No dysuria or hematuria. Patient denies having any fevers chills or rigors. On reviewing her vitals temperature max 98.8, slightly tachycardic in 100 to 110s, respiratory rate around 20-30, blood pressure 1 20 x 72 saturating at 94% on 5 L of oxygen. On reviewing her labs white count of 17.6, hemoglobin 9.1, platelets of 614. Sodium 136, palpitations 3.7, chloride 105, bicarbonate 25, B and 11, creatinine 0.26. Troponin slightly elevated at the time of admission and 0.216. On 04/16/2020 - patient is in the ICU setting. She appears to be no acute distress. Patient still complains of cough and difficulty in breathing. She denies having any fevers chills or rigors. Patient denies having any abdominal pain nausea vomiting or diarrhea. Patient denies having any swelling of her lower extremities.As per the nursing staff report she did not have loose stools in the past 24 hours. Patient had a chest x-ray done this morning showing extensive consolidation of the right lung. On reviewing her vitals she has been afebrile for the past 24 hours. Slightly tachycardic, blood pressure within normal limits and saturating at 95% on 6 L of high flow oxygen. Patient's labs reviewed showing white count of 14.9 hemoglobin 9.8, lately at 754. Sodium 135, potassium 3.8, chloride 106, bicarb 24, BUN 12, creatinine 0.28. Active Medications Hydrocodone Bitart/Acetaminophen (Hydrocodone/Apap 10-325mg 1 Each Tab) 1 each PO Q6H PRN PRN Reason: Pain Last Admin: 04/16/20 15:43 Dose: 1 each Documented by: Aspirin (Aspirin 81 Mg) 81 mg PO DAILY [facility] Last Admin: 04/16/20 09:17 Dose: 81 mg Documented by: Atorvastatin Calcium (Atorvastatin 20 Mg Tab) [address] [facility] Last Admin: 04/15/20 21:07 Dose: 20 mg Documented by: Enoxaparin Sodium (Enoxaparin 40 Mg/0.4 Ml Syringe) 40 mg SQ DAILY [facility] Last Admin: 04/16/20 09:18 Dose: 40 mg Documented by: Furosemide (Furosemide 10 Mg/Ml 4 Ml Vial) 40 mg IV ONCE ONE Stop: 04/16/20 16:01 Last Admin: 04/16/20 15:32 Dose: 40 mg Documented by: Gabapentin (Gabapentin 100 Mg Cap) [address] [facility] Last Admin: 04/15/20 21:07 Dose: 200 mg Documented by: Gabapentin (Gabapentin 100 Mg Cap) 100 mg PO QAM [facility] Last Admin: 04/16/20 09:18 Dose: 100 mg Documented by: Piperacillin Sod/Tazobactam (Sod 3.375 gm/ Sodium Chloride) 100 mls @ 25 mls/hr IVPB Q8H [facility] Last Admin: 04/16/20 15:31 Dose: 25 mls/hr Documented by: Sodium Chloride (Saline 0.9%) 1,000 mls @ 20 mls/hr IV .Q24H [facility] Last Admin: 04/16/20 05:36 Dose: 50 mls/hr Documented by: Vancomycin HCl 1,250 mg/ (Sodium Chloride) 250 mls @ 125 mls/hr IVPB Q8HR [facility] Last Admin: 04/16/20 15:31 Dose: 125 mls/hr Documented by: Insulin Aspart (Insulin Aspart (Novolog) 100 Unit/Ml Vial) 0 unit SQ ACHS [facility]; Protocol Last Admin: 04/16/20 12:12 Dose: 3 unit Documented by: Insulin Aspart (Insulin Aspart (Novolog) 100 Unit/Ml Vial) 3 unit SQ ACHS [facility] Lisinopril (Lisinopril 5 Mg Tab) 5 mg PO Q24H [facility] Last Admin: 04/15/20 18:33 Dose: 5 mg Documented by: Metoprolol Succinate (Metoprolol Succinate (Er) 25 Mg Tab.Er.24h) 25 mg PO BID [facility] Miscellaneous Information (Pneumonia Protocol Utilized 1 Each Misc) 1 each PO ONCE PRN PRN Reason: Per Protocol Miscellaneous Information (Rx Info: Iv Contrast Was Given 1 Each Misc) 1 each MISCELLANE DAILY PRN PRN Reason: Per Protocol Stop: 04/16/20 17:04 Miscellaneous Information (Potassium Replacement Protocol 1 Each Misc) 1 each MISCELLANE DAILY PRN; Protocol PRN Reason: Per Protocol Miscellaneous Information (Rx Info: Iv Contrast Was Given 1 Each Misc) 1 each MISCELLANE DAILY PRN PRN Reason: Per Protocol Stop: 04/18/20 08:55 Miscellaneous Information (Vancomycin Trough Due 1 Each Misc) 0 each MISCELLANE DIRECTED ONE Stop: 04/17/20 07:01 Pantoprazole Sodium (Pantoprazole 40 Mg Tablet) 40 mg PO DAILY [facility] Objective - Vital Signs Vital signs: Vital Signs Temp 98.9 F 04/16/20 12:00 Pulse 104 H 04/16/20 13:00 Resp 26 H 04/16/20 13:00 BP 132/81 04/16/20 13:00 Pulse Ox 95 04/16/20 13:00 Intake & Output 04/15/20 04/16/20 04/16/20 18:59 06:59 18:59 Intake Total 2100 283 636 Output Total 207 3423 710 Balance 3473 -4953 -97 Weight 60.4 kg Intake: Intake, IV Titration 1300 650 400 Amount Dextrose 5%-0.9% NaCl 1, 100 000 ml @ 100 mls/hr IV . Q10H [facility] Rx#:[id number] Piperacillin-Tazobactam 3 200 .375 gm In Sodium Chloride 0.9% 100 ml @ 25 mls/hr IVPB Q8H [facility] Rx#: [id number] Sodium Chloride 0.9% 1, 500 650 150 000 ml @ 20 mls/hr IV . Q24H [facility] Rx#:[id number] Vancomycin 1,000 mg In 250 Sodium Chloride 0.9% 250 ml @ 125 mls/hr IVPB ONCE ONE Rx#:[id number] Vancomycin 1,000 mg In 250 250 Sodium Chloride 0.9% 250 ml @ 125 mls/hr IVPB Q8H [facility] Rx#:[id number] Oral 800 200 236 Output: Urine 207 2363 710 Other: Voiding Method Indwelling Catheter Indwelling Catheter Indwelling Catheter - Exam PHYSICAL EXAM GENERAL: Patient is awake alert and oriented. Cachectic. HEENT: Pupils are round and equally reacting to light. EOMI. No scleral icterus. No conjunctival pallor. Normocephalic, atraumatic. No pharyngeal erythema. No thyromegaly. CARDIOVASCULAR: S1 and S2 present. No murmurs, rubs, or gallops. PULMONARY: Chest is clear to auscultation, no wheezing or crackles. Decreased breath sounds in the right lower lobes. ABDOMEN: Soft, nontender, nondistended, normoactive bowel sounds. Surgical scars for laparoscopy in place. No palpable organomegaly. EXTREMITIES: No cyanosis, clubbing, or pedal edema. NEUROLOGICAL: No focal neurological deficits. Alert awake oriented 3. SKIN: No rashes. no petechiae - Labs CBC & Chem 7: 04/16/20 05:17 04/16/20 05:17 Labs: Abnormal Lab Results - Last 24 Hours (Table) 04/15/20 04/15/20 04/15/20 Range/Units 05:23 16:22 20:59 WBC (3.8-10.6) k/uL RBC (3.80-5.40) m/uL Hgb (11.4-16.0) gm/dL Hct (34.0-46.0) % MCHC (31.0-37.0) g/dL Plt Count (150-450) k/uL Neutrophils # (1.3-7.7) k/uL Sodium (137-145) mmol/L Creatinine (0.52-1.04) mg/dL Glucose (74-99) mg/dL POC Glucose (mg/dL) 187 H 221 H (75-99) mg/dL Hemoglobin A1c 9.5 H (4.0-6.0) % Calcium (8.4-10.2) mg/dL 04/16/20 04/16/20 04/16/20 Range/Units 02:17 05:17 05:17 WBC 14.9 H (3.8-10.6) k/uL RBC 3.47 L (3.80-5.40) m/uL Hgb 9.8 L (11.4-16.0) gm/dL Hct 32.8 L (34.0-46.0) % MCHC 29.7 L (31.0-37.0) g/dL Plt Count 754 H (150-450) k/uL Neutrophils # 12.5 H (1.3-7.7) k/uL Sodium 135 L (137-145) mmol/L Creatinine 0.28 L (0.52-1.04) mg/dL Glucose 197 H (74-99) mg/dL POC Glucose (mg/dL) 178 H (75-99) mg/dL Hemoglobin A1c (4.0-6.0) % Calcium 7.9 L (8.4-10.2) mg/dL 04/16/20 04/16/20 Range/Units 06:34 11:33 WBC (3.8-10.6) k/uL RBC (3.80-5.40) m/uL Hgb (11.4-16.0) gm/dL Hct (34.0-46.0) % MCHC (31.0-37.0) g/dL Plt Count (150-450) k/uL Neutrophils # (1.3-7.7) k/uL Sodium (137-145) mmol/L Creatinine (0.52-1.04) mg/dL Glucose (74-99) mg/dL POC Glucose (mg/dL) 193 H 234 H (75-99) mg/dL Hemoglobin A1c (4.0-6.0) % Calcium (8.4-10.2) mg/dL Microbiology - Last 24 Hours (Table) 04/14/20 12:30 Blood Culture - Preliminary Blood No Growth after 48 hours 04/14/20 15:54 Acid Fast Bacilli Smear - Final Pleural Fluid Acid Fast Bacilli Culture - Preliminary 04/14/20 15:54 Gram Stain - Preliminary Pleural Fluid Body Fluid Culture - Preliminary Assessment and Plan Assessment: ASSESSMENT Acute encephalopathy- multiple etiology including infection(pneumonia), metabolic(hypoglycemia), drug overdose(morphine)- resolved Right lower lobe pneumonia/abscess status post 1.2 L of fluid drained Acute hypoxic respiratory failure Acute hypoglycemia resolved New onset congestive heart failure, systolic and diastolic Pulmonary hypertension with RVSP of 46 Recent history of UTI Recent history of C. diff colitis Type 2 diabetes mellitus poorly controlled Status post cholecystectomy done 2 weeks back Hypertension Fibromyalgia Hyperlipidemia Chronic pain syndrome Depression Moderate protein calorie malnutrition Mild troponin elevation Lactic acidosis PLAN: Patient had 2.5 L of pleural fluid drained from the right lung and empirically started on antibiotics in the form of vancomycin and Zosyn. Patient's C. diff is negative, so her IV metronidazole has been discontinued. Patient had mildly elevated troponins, cardiology on board, she had an echo done showing ejection fraction of 25-30% with severely impaired left ventricular systolic function and grade 2 diastolic dysfunction. Patient has been started on beta blockers, Edwar inhibitors, statin and aspirin. Plan for possible bronchoscopy for tomorrow morning by Dr. Ram. Further recommendations to follow depending on the progress of the patient. The treatment plan was discussed in detail with the patient at bedside today.
[2020-04-16 16:27] LABS: Glucose,Whole Blood 221 mg/dL (75-99)
[2020-04-16] MEDS: lisinopriL 5 MG TAB PO SCH (16:58)
[2020-04-16 20:55] LABS: Glucose,Whole Blood 199 mg/dL (75-99)
[2020-04-16] MEDS: ATORVASTATIN 20 MG TAB PO SCH (21:21)
[2020-04-17 03:20] LABS: Glucose,Whole Blood 174 mg/dL (75-99)
[2020-04-17] MEDS: HYDROcodone/APAP 10-325MG 1 EACH TAB PO PRN ×5 (03:25→22:31)
[2020-04-17 05:02] LABS: HCT 30.5 % (34.0-46.0); HGB 9.4 gm/dL (11.4-16.0); Hypochromasia Moderate; MCH 28.7 pg (25.0-35.0); MCV 92.7 fL (80.0-100.0); Mean Platelet Volume 6.8; Platelet Count 667 k/uL (150-450); RBC 3.29 m/uL (3.80-5.40); RDW 14.6 % (11.5-15.5); WBC 13.2 k/uL (3.8-10.6)
[2020-04-17 05:08] LABS: African American GFR (CKD) >90 (>60 ml/min/1.73 sqM); Anion Gap 2 mmol/L; Blood Urea Nitrogen 11 mg/dL (7-17); Calcium 7.2 mg/dL (8.4-10.2); Carbon Dioxide 31 mmol/L (22-30); Chloride 103 mmol/L (98-107); Glucose 171 mg/dL (74-99); Non-African American GFR(CKD) >90 (>60 ml/min/1.73 sqM); Potassium 3.2 mmol/L (3.5-5.1); Sodium 136 mmol/L (137-145)
[2020-04-17] MEDS: POTASSIUM CHLORIDE 10 MEQ in WATER FOR INJECTION 1 100ML.BAG IVPB SCH ×4 (06:30→10:42)
[2020-04-17] MEDS: PIPERACILLIN-TAZOBACTAM 3.375 GM in SODIUM CHLORIDE 0.9% 100 ML IVPB SCH ×3 (06:30→22:34)
[2020-04-17] MEDS ORDERED: VANCOMYCIN TROUGH DUE 1 EACH MISC MISCELLANE ONE (07:00)
[2020-04-17] MEDS: INSULIN ASPART (NovoLOG) 100 UNIT/ML VIAL SQ SCH ×8 (07:38→20:52)
--- NOTE | 2020-04-17 08:18 | CT ---
EXAMINATION TYPE: CT chest w con DATE OF EXAM: 04/17/2020 COMPARISON: HISTORY: Pneumonia, Effusion CT DLP: 281.3 mGycm Automated exposure control for dose reduction was used. CONTRAST: CT scan of the chest is performed with IV Contrast, patient injected with 100 mL of Isovue 300. FINDINGS: LUNGS: Large bilateral pleural effusions are noted right slightly greater than left. Underlying airsp herber consolidation with atelectasis. Coarse the upper lobe infiltrates are also identified. Right lowe r lobe collections are redemonstrated in diameter again loculated in appearance. Collections measure 3.5 cm and 4.0 x 3.7 cm respectively. Internal foci of air redemonstrated although less than on the p rior study. Again abscess formation is suspected. MEDIASTINUM: Subcarinal adenopathy measures 2.2 cm AP dimension. Right paratracheal adenopathy measur es 1.2 cm. Thoracic aorta is of normal caliber. The heart is not enlarged. UPPER ABDOMEN: Small amount of ascites noted upper abdomen. Cholecystectomy clips are in place. OTHER: No additional significant abnormality is seen. IMPRESSION: 1. Multiloculated collection right lower lobe is felt to reflect abscess or empyema. 2. Persistent and increasing large bilateral pleural effusions with bilateral airspace consolidation with interstitial infiltrates noted as well in addition to basilar volume loss.
--- NOTE | 2020-04-17 09:36 | P.PN ---
Subjective Progress Note Date: 04/17/20 This is a 59-year-old female with history of diabetes, neuropathy, who recently underwent laparoscopic cholecystectomy was brought to the hospital with altered mental status with evidence of bilateral pneumonia and effusions. Patient has thoracocentesis and was found to have exudative effusion. A computed tomography scan done today showed multiloculated fluid collection size to possible abscess on the right side with bilateral pleural effusion. Still waiting for covid test results. Patient is also found to have cardiomyopathy with an ejection fraction of 20-25%. She is being treated with lisinopril, metoprolol and Lipitor. Her blood pressure still running a little high. I'm going to increase the dose of the distal pin to 10 mg. As there is suspicion for Covid, I did not personally examine the patient. Most of the information is gathered from the chart and also from the nurses. There is a plan for possible bronchoscopy if the Covid test is negative. Objective - Vital Signs Vital signs: Vital Signs Temp 97.9 F 04/17/20 04:00 Pulse 97 04/17/20 07:00 Resp 22 04/17/20 07:00 BP 129/72 04/17/20 07:00 Pulse Ox 94 L 04/17/20 07:00 Intake & Output 04/16/20 04/17/20 04/17/20 18:59 06:59 18:59 Intake Total 1086 1040 20 Output Total 1650 510 30 Balance -564 530 -10 Weight 57.6 kg Intake: IV 780 20 Piperacillin-Tazobactam 3 200 .375 gm In Sodium Chloride 0.9% 100 ml @ 25 mls/hr IVPB Q8H [facility] Rx#: [id number] Potassium Chloride 10 meq 100 In Water For Injection 1 100ml.bag @ 100 mls/hr IVPB Q1HR [facility] Rx#: [id number] Sodium Chloride 0.9% 1, 230 20 000 ml @ 20 mls/hr IV . Q24H [facility] Rx#:[id number] Vancomycin 1,250 mg In 250 Sodium Chloride 0.9% 250 ml @ 125 mls/hr IVPB Q8HR [facility] Rx#:[id number] Intake, IV Titration 850 20 Amount Piperacillin-Tazobactam 3 100 .375 gm In Sodium Chloride 0.9% 100 ml @ 25 mls/hr IVPB Q8H [facility] Rx#: [id number] Sodium Chloride 0.9% 1, 250 20 000 ml @ 20 mls/hr IV . Q24H [facility] Rx#:[id number] Vancomycin 1,000 mg In 500 Sodium Chloride 0.9% 250 ml @ 125 mls/hr IVPB Q8H [facility] Rx#:[id number] Oral 236 240 Output: Urine 1650 510 30 Other: Voiding Method Indwelling Catheter Indwelling Catheter - Exam I did not personally examine the patient. Patient is alert and seemed to be feeling somewhat better. Lung sounds are diminished bilaterally as per nurse's .The patient is in regular rhythm - Labs CBC & Chem 7: 04/17/20 04:39 04/17/20 04:39 Labs: Abnormal Lab Results - Last 24 Hours (Table) 04/15/20 04/16/20 04/16/20 Range/Units 05:23 11:33 16:26 WBC (3.8-10.6) k/uL RBC (3.80-5.40) m/uL Hgb (11.4-16.0) gm/dL Hct (34.0-46.0) % Plt Count (150-450) k/uL Sodium (137-145) mmol/L Potassium (3.5-5.1) mmol/L Carbon Dioxide (22-30) mmol/L Creatinine (0.52-1.04) mg/dL Glucose (74-99) mg/dL POC Glucose (mg/dL) 234 H 221 H (75-99) mg/dL Hemoglobin A1c 9.5 H (4.0-6.0) % Calcium (8.4-10.2) mg/dL 04/16/20 04/17/20 04/17/20 Range/Units 20:53 03:19 04:39 WBC 13.2 H (3.8-10.6) k/uL RBC 3.29 L (3.80-5.40) m/uL Hgb 9.4 L (11.4-16.0) gm/dL Hct 30.5 L (34.0-46.0) % Plt Count 667 H (150-450) k/uL Sodium (137-145) mmol/L Potassium (3.5-5.1) mmol/L Carbon Dioxide (22-30) mmol/L Creatinine (0.52-1.04) mg/dL Glucose (74-99) mg/dL POC Glucose (mg/dL) 199 H 174 H (75-99) mg/dL Hemoglobin A1c (4.0-6.0) % Calcium (8.4-10.2) mg/dL 04/17/20 Range/Units 04:39 WBC (3.8-10.6) k/uL RBC (3.80-5.40) m/uL Hgb (11.4-16.0) gm/dL Hct (34.0-46.0) % Plt Count (150-450) k/uL Sodium 136 L (137-145) mmol/L Potassium 3.2 L (3.5-5.1) mmol/L Carbon Dioxide 31 H (22-30) mmol/L Creatinine 0.26 L (0.52-1.04) mg/dL Glucose 171 H (74-99) mg/dL POC Glucose (mg/dL) (75-99) mg/dL Hemoglobin A1c (4.0-6.0) % Calcium 7.2 L (8.4-10.2) mg/dL Microbiology - Last 24 Hours (Table) 04/14/20 15:54 Gram Stain - Preliminary Pleural Fluid Body Fluid Culture - Preliminary 04/14/20 12:30 Blood Culture - Preliminary Blood No Growth after 48 hours Assessment and Plan (1) Cardiomyopathy Current Visit: Yes Status: Acute Code(s): I42.9 - CARDIOMYOPATHY, UNSPECIFIED SNOMED Code(s): 54114880 (2) Altered mental status Current Visit: Yes Status: Acute Code(s): R41.82 - ALTERED MENTAL STATUS, UNSPECIFIED SNOMED Code(s): 298241653 (3) Elevated troponin Current Visit: Yes Status: Acute Code(s): R79.89 - OTHER SPECIFIED ABNORMAL FINDINGS OF BLOOD CHEMISTRY SNOMED Code(s): 694352418 (4) Pneumonia Current Visit: Yes Status: Acute Code(s): J18.9 - PNEUMONIA, UNSPECIFIED ORGANISM SNOMED Code(s): 957768844 Plan: Continue with current aggressive therapy. May have bronchoscopy today. We will continue with beta blockers, BECKY inhibitor, diuretics and lipid-lowering agents. Further cardiac workup and patient is more stable and recovered from pneumonia
[2020-04-17] MEDS: VANCOMYCIN 1,250 MG in SODIUM CHLORIDE 0.9% 250 ML IVPB SCH ×2 (10:17→15:24)
[2020-04-17] MEDS: FUROSEMIDE 10 MG/ML 2 ML VIAL IV SCH ×2 (10:18→20:50)
[2020-04-17] MEDS: METOPROLOL SUCCINATE (ER) 25 MG TAB.ER.24H PO SCH ×2 (10:29→20:51)
[2020-04-17] MEDS: GABAPENTIN 100 MG CAP PO SCH ×2 (10:29→20:50)
[2020-04-17] MEDS: ASPIRIN 81 MG PO SCH (10:29)
[2020-04-17] MEDS: PANTOPRAZOLE 40 MG TABLET PO SCH (10:29)
[2020-04-17] MEDS: ENOXAPARIN 40 MG/0.4 ML SYRINGE SQ SCH (10:30)
[2020-04-17] MEDS: SODIUM CHLORIDE 0.9% 1,000 ML IV SCH (10:31)
--- NOTE | 2020-04-17 10:37 | P.PCN ---
Date of Procedure: 04/17/20 Preoperative Diagnosis: Recurrent right-sided pleural effusion Postoperative Diagnosis: Recurrent right-sided pleural effusion Procedure(s) Performed: Thoracentesis Anesthesia: local Surgeon: Eliezer Ram Estimated Blood Loss (ml): 0 Pathology: none sent Condition: critical Disposition: ICU Operative Findings: Indication: Pleural effusion. A time-out was completed verifying correct patient, procedure, site, positioning, and implant (s) or special equipment if applicable. Ultrasound guidance was not used and appropriate fluid pocket was identified and marked. Patient was positioned, prepped and draped in usual sterile fashion. Lidocaine was used to anesthetize the area. A Thoracentesis catheter was introduced into the pleural space and fluid was removed. Blood loss was none. A chest x-ray was ordered to evaluate for pneumothorax. Total Fluid Removed: 1500cc Color of Fluid: Turbid dark yellowish Fluid was not sent for appropriate laboratory tests. Patient tolerated the procedure well and there were no complications.
[2020-04-17] MEDS: POTASSIUM CHLORIDE ER 20 MEQ TAB.ER PO SCH ×2 (10:54→12:46)
[2020-04-17 12:07] LABS: Glucose,Whole Blood 186 mg/dL (75-99)
--- NOTE | 2020-04-17 12:14 | P.PN ---
Subjective Progress Note Date: 04/17/20 This is a 59-year-old female patient was brought into the emergency department by caregiver unresponsive, lethargic, hypoglycemic. The patient was in the hospital last week and the patient underwent a laparoscopic cholecystectomy for an acute cholecystitis on 04/08/2020. Note that the patient presented to the hospital because of symptoms of acute cholecystitis. She was having right upper quadrant pain. The pain was radiating to the back. She has some nausea. She had elevated white cell count of 18. She had low-grade fever. Ultrasound the gallbladder showed inflammation with fluid. LFTs were normal except for some mild elevation of alkaline phosphatase. The patient underwent the surgery and the patient was discharged home on Ceftin for a total of 5 days. She was also given incentive spirometer. Noted the chest x-ray prior to discharge showed a right-sided pleural effusion that was small. The patient came in today because of feeling lethargic and she was found to be quite lethargic and unresponsive by the caregiver. At the time of arrival the patient was found to be hypoglycemic. Her blood sugar was in the 40s. She was given 3 A of D50 based on 3 episodes of hypoglycemia that occurred since her being transferred to the hospital. The patient also had taken 2 tablets of 30 mg of morphine and was given to her by a friend. She was given Narcan in the emergency department. She became agitated and following that she was given Ativan and currently she is resting comfortably in bed. Based on her presentation, a CAT scan of the abdomen and pelvis was done and the CAT scan showed a large multi loculated collection in the right lower lobe of the lung with components measuring 4 x 3.3 and 6 x 4.4 cm in size respectively. There was internal air identified. Finding was consistent with a lung abscess. There was also evidence of small bowel thickening, nonspecific colitis and there was also evidence of a large right-sided pleural effusion. I saw the patient emergency department. She was still not fully communicating. She was lethargic. She would withdraw to painful additional 4 extremities. I was able to drain approximately 1.2 L of pleural fluid from the right lung. The pleural fluid was turbid dark yellowish in color. The patient tolerated the procedure well. Postprocedure chest x-ray showed no evidence of any pneumothorax. There is a persistent right lower lobe opacity with diminution of the pleural effusion. Note that the patient was having diarrhea and she has had previous history of C. diff colitis. A fecal management system was attached. The patient will be transferred to the intensive care unit. On 04/15/2020, the patient wide awake alert and communicating and following commands and answering questions. Marked improvement in his neurologic status compared to yesterday. She is requesting painkillers. She has body aches all o nadir and she is requesting painkillers and this is her main concern. Meanwhile, the patient is still bilateral pneumonia. After performing a thoracentesis yesterday which do not to be a transudate, I performed a CAT scan of the chest and the CAT scan showed extensive bilateral pneumonic infiltrates that is worse on the right compared to the left. There is also better pleural effusion and small. No empyema based on the pleural fluid analysis. Infiltrates are quite extensive and there is some mild mucin lymphadenopathy consistent with inflammatory disease. There is dense right middle lobe consolidation. No lung abscess was visualized. Based on all this, and based on the concern of a hos pital-acquired pneumonia, assess this patient a combination of Zosyn and vancomycin. The patient is not having any diarrhea at this point in time. Stool for C. diff was not collected. I think IV Flagyl can be discontinued. The white cell count is at 17.6. Function is stable with a creatinine of 0.2. No diarrhea. No abdominal pain. No nausea or vomiting. 04/16/2020, the patient is doing well. Awake and alert. Tolerating diet. No significant shortness of breath. Using incentive spirometer. Chest x-ray still showing extensive consolidation of the right lung along with some infiltration of the left lung base. As mentioned earlier, a transudate pleural fluid was aspirated from the right lung. Echocardiogram was done and the patient was found also to have cardiomyopathy with an ejection fraction on the left ventricle estimated to be around 25%. The patient remains on a combination of Zosyn and vancomycin. No chest pain. She is on 6 L of oxygen by nasal cannula pH is tolerating her diet. Her pain is under good control. No diarrhea for now. Blood cultures been negative. White cell count is down to 14.9. No altered mentation. 04/17/2020, I'm seeing the patient for a follow-up. The patient is doing well. The patient remains on accommodation of Zosyn and vancomycin. The patient is being treated for a right lung abscess/pneumonia. Nevertheless, the pleural effusion I think it's related to her underlying CHF as the patient was also found to have cardiomyopathy with impaired ejection fraction. I reviewed the CAT scan of the chest today. The patient was found to have a multi loculated collection in the right lower lobe which is felt to be related to an abscess. At the same time, the patient had recurrent and large bilateral pleural effusion right more than left along with some bilateral airspace consolidation and volume loss. Based on all this, I performed another thoracentesis of the patient's right lung and another 1.5 L of fluid was aspirated from the right lung. I intend to do a thoracentesis of the left lung. Noted earlier fluid was a salazar sudate. I'm going to start the patient on IV Lasix in addition to the antibiotics. She is awake and alert. She is complaining of chronic pain as usual. The patient is currently on 6 L of oxygen by nasal cannula. Hemodynamically stable. She is afebrile. Objective - Vital Signs Vital signs: Vital Signs Temp 97.9 F 04/17/20 04:00 Pulse 97 04/17/20 07:00 Resp 22 04/17/20 07:00 BP 129/72 04/17/20 07:00 Pulse Ox 94 L 04/17/20 07:00 Intake & Output 04/16/20 04/17/20 04/17/20 18:59 06:59 18:59 Intake Total 1086 1040 20 Output Total 1650 510 30 Balance -564 530 -10 Weight 57.6 kg Intake: IV 780 20 Piperacillin-Tazobactam 3 200 .375 gm In Sodium Chloride 0.9% 100 ml @ 25 mls/hr IVPB Q8H [facility] Rx#: [id number] Potassium Chloride 10 meq 100 In Water For Injection 1 100ml.bag @ 100 mls/hr IVPB Q1HR [facility] Rx#: [id number] Sodium Chloride 0.9% 1, 230 20 000 ml @ 20 mls/hr IV . Q24H [facility] Rx#:[id number] Vancomycin 1,250 mg In 250 Sodium Chloride 0.9% 250 ml @ 125 mls/hr IVPB Q8HR [facility] Rx#:[id number] Intake, IV Titration 850 20 Amount Piperacillin-Tazobactam 3 100 .375 gm In Sodium Chloride 0.9% 100 ml @ 25 mls/hr IVPB Q8H [facility] Rx#: [id number] Sodium Chloride 0.9% 1, 250 20 000 ml @ 20 mls/hr IV . Q24H [facility] Rx#:[id number] Vancomycin 1,000 mg In 500 Sodium Chloride 0.9% 250 ml @ 125 mls/hr IVPB Q8H [facility] Rx#:[id number] Oral 236 240 Output: Urine 1650 510 30 Other: Voiding Method Indwelling Catheter Indwelling Catheter - Exam Gen. appearance the patient awake and alert and is no focal neurological deficits Head exam was generally normal. There was no scleral icterus or corneal arcus. Mucous membranes were moist. Neck was supple and without jugular venous distension, thyromegaly, or carotid bruits. Carotids were easily palpable bilaterally. There was no adenopathy. Lungs sounds are diminished in the right lung base along with dullness to percussion and the patient also has diminished breath on the left lung base along with dullness to percussion. Cardiac exam revealed the PMI to be normally situated and sized. The rhythm was regular and no extrasystoles were noted during several minutes of auscultation. The first and second heart sounds were normal and physiologic splitting of the second heart sound was noted. There were no murmurs, rubs, clicks, or gallops. Abdominal exam revealed normal bowel sounds. The abdomen was soft, non-tender, and without masses, organomegaly, or appreciable enlargement of the abdominal aorta. Surgical scar over the right upper quadrant area at the site of laparoscopic cholecystectomy tract infection and intact. No direct tenderness. No rebound tenderness. No guarding. Examination of the extremities revealed easily palpable radial, femoral and pedal pulses. There was no cyanosis, clubbing or edema. Examination of the skin revealed no evidence of significant rashes, suspicious appearing nevi or other concerning lesions. Neurologically, the patient is awake and alert and the patient does not have any focal neurological deficit. Cranial nerves are essentially intact. - Labs CBC & Chem 7: 04/17/20 04:39 04/17/20 04:39 Labs: Abnormal Lab Results - Last 24 Hours (Table) 04/15/20 04/16/20 04/16/20 Range/Units 05:23 16:26 20:53 WBC (3.8-10.6) k/uL RBC (3.80-5.40) m/uL Hgb (11.4-16.0) gm/dL Hct (34.0-46.0) % Plt Count (150-450) k/uL Sodium (137-145) mmol/L Potassium (3.5-5.1) mmol/L Carbon Dioxide (22-30) mmol/L Creatinine (0.52-1.04) mg/dL Glucose (74-99) mg/dL POC Glucose (mg/dL) 221 H 199 H (75-99) mg/dL Hemoglobin A1c 9.5 H (4.0-6.0) % Calcium (8.4-10.2) mg/dL 04/17/20 04/17/20 04/17/20 Range/Units 03:19 04:39 04:39 WBC 13.2 H (3.8-10.6) k/uL RBC 3.29 L (3.80-5.40) m/uL Hgb 9.4 L (11.4-16.0) gm/dL Hct 30.5 L (34.0-46.0) % Plt Count 667 H (150-450) k/uL Sodium 136 L (137-145) mmol/L Potassium 3.2 L (3.5-5.1) mmol/L Carbon Dioxide 31 H (22-30) mmol/L Creatinine 0.26 L (0.52-1.04) mg/dL Glucose 171 H (74-99) mg/dL POC Glucose (mg/dL) 174 H (75-99) mg/dL Hemoglobin A1c (4.0-6.0) % Calcium 7.2 L (8.4-10.2) mg/dL 04/17/20 Range/Units 12:06 WBC (3.8-10.6) k/uL RBC (3.80-5.40) m/uL Hgb (11.4-16.0) gm/dL Hct (34.0-46.0) % Plt Count (150-450) k/uL Sodium (137-145) mmol/L Potassium (3.5-5.1) mmol/L Carbon Dioxide (22-30) mmol/L Creatinine (0.52-1.04) mg/dL Glucose (74-99) mg/dL POC Glucose (mg/dL) 186 H (75-99) mg/dL Hemoglobin A1c (4.0-6.0) % Calcium (8.4-10.2) mg/dL Microbiology - Last 24 Hours (Table) 04/14/20 15:54 Gram Stain - Preliminary Pleural Fluid Body Fluid Culture - Preliminary 04/14/20 12:30 Blood Culture - Preliminary Blood No Growth after 48 hours Assessment and Plan Plan: 1 bilateral lower lobe pneumonia right more than left. The patient has a multiloculated lesion in the right lung which is felt to be related to an abscess. Nevertheless, the pleural effusions are probably transudate related to her underlying CHF. I performed an initial thoracentesis. The patient had a recurrence of the pleural fluid. Another thoracentesis was done on the right draining 1.5 L and this is the second thoracentesis. I will also drain the left lung at a later stage. I have kept the patient on a combination of Zosyn and vancomycin. 2 acute hypoxic respiratory failure secondary to above, currently on 6 L of oxygen by nasal cannula 3 altered mental status recovered and the patient is back to normal 4 CHF with cardiomyopathy and an ejection fraction of 25-30% and moderate degree of pulmonary hypertension with a PA pressure of 46 5 diabetes mellitus type 2, poorly controlled on outpatient basis 6 post cholecystectomy and surgery was done on 04/08/2020 7 previous history of UTI 8 previous history of C. diff colitis and the patient is having extensive diarrh ea and fecal management system was inserted. Rule out recurrent C. diff colitis specially the patient was taking antibiotics on outpatient basis 9 fibromyalgia 10 hypertension 11 hyperlipidemia 12 chronic pain syndrome with degenerative disc disease 13 former smoker 14 depression 15 opiates intake post Narcan treatment 16 leukocytosis and the patient's white cell count is improving 17 troponin leak 18 mild lactic acidosis, recovered Plan Continue IV Zosyn and add vancomycin for hospital-acquired gram-negative and staphylococcal pneumonia Start the patient on Lasix 20 mg a push every 12 hours. Performed a right-sided thoracentesis and another 1.5 L of fluid was removed. I'm going to the left-sided later stage. Continuous the medication will continue to follow. Keep the patient ICU for 24 hours.
--- NOTE | 2020-04-17 12:43 | XR ---
EXAMINATION TYPE: XR chest 1V DATE OF EXAM: 04/17/2020 HISTORY: Status post thoracentesis COMPARISON: 04/16/2020 TECHNIQUE: Single view of the chest is submitted. FINDINGS: No evidence for sizable pneumothorax status post thoracentesis. Diminution in right-sided pleural eff usion with persistent right basilar infiltrate and/or masslike density. Persistent left-sided pleural effusion underlying infiltrate and/or atelectasis. The heart is stable. Hilar and mediastinal structures are within normal limits. Degenerative changes are seen of the dorsal spine. IMPRESSION: 1. No evidence for pneumothorax in a patient who is status post thoracentesis.
--- NOTE | 2020-04-17 14:40 | P.PN ---
Subjective Progress Note Date: 04/17/20 Principal diagnosis: Right lower lobe pneumonia/abscess Ms. Falcon is a 59-year-old female with a past medical history of diabetes mellitus, fibromyalgia, hyperlipidemia, chronic pain syndrome, degenerative disc disease coming to the hospital for altered mental status changes. Patient was recently in the hospital had cholecystectomy done and was discharged home on antibiotics for right lower lobe pneumonia. Patient was found to be lethargic by her case given her and so brought into the hospital. At the time of admission patient was found to have hypoglycemia she was given 3 ampules of D50. She was also given a dose of Narcan in the ED as a caregiver set patient up 2 tablets of 30 mg of morphine. She had a CAT scan of the abdomen and pelvis showing large multiloculated collection in the right lower lobe of the lung. Eventually patient had pleural fluid drained of 1.2 L from the right lung by Dr. Ram. She is started on antibiotics and admitted to the ICU. Patient's C. diff has been negative. On 04/15/2020- patient is in the ICU. She appears to be no acute distress. Patient states that she has pain all over her body. She denies having any chest pain or difficulty in breathing. She denies having any bowel pain nausea vomiting or diarrhea. No dysuria or hematuria. Patient denies having any fevers chills or rigors. On reviewing her vitals temperature max 98.8, slightly tachycardic in 100 to 110s, respiratory rate around 20-30, blood pressure 1 20 x 72 saturating at 94% on 5 L of oxygen. On reviewing her labs white count of 17.6, hemoglobin 9.1, platelets of 614. Sodium 136, palpitations 3.7, chloride 105, bicarbonate 25, B and 11, creatinine 0.26. Troponin slightly elevated at the time of admission and 0.216. On 04/16/2020 - patient is in the ICU setting. She appears to be no acute distress. Patient still complains of cough and difficulty in breathing. She denies having any fevers chills or rigors. Patient denies having any abdominal pain nausea vomiting or diarrhea. Patient denies having any swelling of her lower extremities.As per the nursing staff report she did not have loose stools in the past 24 hours. Patient had a chest x-ray done this morning showing extensive consolidation of the right lung. On reviewing her vitals she has been afebrile for the past 24 hours. Slightly tachycardic, blood pressure within normal limits and saturating at 95% on 6 L of high flow oxygen. Patient's labs reviewed showing white count of 14.9 hemoglobin 9.8, lately at 754. Sodium 135, potassium 3.8, chloride 106, bicarb 24, BUN 12, creatinine 0.28. On 04/17/2020 - patient is in the ICU setting. Appears to be no acute distress. Patient states that her difficulty in breathing gets better, as Dr. Ram removed 1.2 L of pleural fluid from the right lung. She is continued on antibiotics in the form of vancomycin and Zosyn. Repeat chest x-ray after the pleural tap shows decreased fluid on the right lung.Patient denies having any fevers chills or rigors. No bone pain nausea or vomiting. No dysuria or he maturia. On reviewing the Vitas patient has been afebrile for the past 24 hours. Heart rate between 90s, respiratory rate 22, minute, blood pressure within normal limits and saturating at 97% on 6 L of oxygen. Patient's labs this morning show white count of 13.2, hemoglobin 9.4, platelets 667. Sodium 136 operation 3.2, chloride 103, bicarbonate 31, BUN 30, creatinine 0.06. Active Medications Hydrocodone Bitart/Acetaminophen (Hydrocodone/Apap 10-325mg 1 Each Tab) 1 each PO Q6H PRN PRN Reason: Pain Last Admin: 04/17/20 10:29 Dose: 1 each Documented by: Aspirin (Aspirin 81 Mg) 81 mg PO DAILY [facility] Last Admin: 04/17/20 10:29 Dose: 81 mg Documented by: Atorvastatin Calcium (Atorvastatin 20 Mg Tab) 20 mg PO [facility] Last Admin: 04/16/20 21:21 Dose: 20 mg Documented by: Enoxaparin Sodium (Enoxaparin 40 Mg/0.4 Ml Syringe) 40 mg SQ DAILY [facility] Last Admin: 04/17/20 10:30 Dose: 40 mg Documented by: Furosemide (Furosemide 10 Mg/Ml 2 Ml Vial) 20 mg IV Q12HR [facility] Last Admin: 04/17/20 10:18 Dose: 20 mg Documented by: Gabapentin (Gabapentin 100 Mg Cap) 200 mg PO [facility] Last Admin: 04/16/20 21:21 Dose: 200 mg Documented by: Gabapentin (Gabapentin 100 Mg Cap) 100 mg PO QAM [facility] Last Admin: 04/17/20 10:29 Dose: 100 mg Documented by: Piperacillin Sod/Tazobactam (Sod 3.375 gm/ Sodium Chloride) 100 mls @ 25 mls/hr IVPB Q8H [facility] Last Admin: 04/17/20 06:30 Dose: 25 mls/hr Documented by: Sodium Chloride (Saline 0.9%) 1,000 mls @ 20 mls/hr IV .Q24H [facility] Last Admin: 04/17/20 10:31 Dose: 20 mls/hr Documented by: Vancomycin HCl 1,250 mg/ (Sodium Chloride) 250 mls @ 125 mls/hr IVPB Q8HR [facility] Last Admin: 04/17/20 10:17 Dose: 125 mls/hr Documented by: Insulin Aspart (Insulin Aspart (Novolog) 100 Unit/Ml Vial) 0 unit SQ [facility]; Protocol Last Admin: 04/17/20 12:47 Dose: 2 unit Documented by: Insulin Aspart (Insulin Aspart (Novolog) 100 Unit/Ml Vial) 3 unit SQ [facility] Last Admin: 04/17/20 12:47 Dose: Not Given Documented by: Lisinopril (Lisinopril 5 Mg Tab) 5 mg PO Q24H [facility] Last Admin: 04/16/20 16:58 Dose: 5 mg Documented by: Metoprolol Succinate (Metoprolol Succinate (Er) 25 Mg Tab.Er.24h) 25 mg PO BID [facility] Last Admin: 04/17/20 10:29 Dose: 25 mg Documented by: Miscellaneous Information (Pneumonia Protocol Utilized 1 Each Misc) 1 each PO ONCE PRN PRN Reason: Per Protocol Miscellaneous Information (Potassium Replacement Protocol 1 Each Misc) 1 each MISCELLANE DAILY PRN; Protocol PRN Reason: Per Protocol Miscellaneous Information (Rx Info: Iv Contrast Was Given 1 Each Misc) 1 each MISCELLANE DAILY PRN PRN Reason: Per Protocol Stop: 04/18/20 08:55 Pantoprazole Sodium (Pantoprazole 40 Mg Tablet) 40 mg PO DAILY [facility] Last Admin: 04/17/20 10:29 Dose: 40 mg Documented by: Objective - Vital Signs Vital signs: Vital Signs Temp 97.9 F 04/17/20 04:00 Pulse 97 09/14/20 07:00 Resp 22 04/17/20 07:00 BP 129/72 04/17/20 07:00 Pulse Ox 94 L 04/17/20 07:00 Intake & Output 04/16/20 04/17/20 04/17/20 18:59 06:59 18:59 Intake Total 1086 1040 20 Output Total 1650 510 30 Balance -564 530 -10 Weight 57.6 kg 57.6 kg Intake: IV 780 20 Piperacillin-Tazobactam 3 200 .375 gm In Sodium Chloride 0.9% 100 ml @ 25 mls/hr IVPB Q8H [facility] Rx#: [id number] Potassium Chloride 10 meq 100 In Water For Injection 1 100ml.bag @ 100 mls/hr IVPB Q1HR [facility] Rx#: [id number] Sodium Chloride 0.9% 1, 230 20 000 ml @ 20 mls/hr IV . Q24H [facility] Rx#:[id number] Vancomycin 1,250 mg In 250 Sodium Chloride 0.9% 250 ml @ 125 mls/hr IVPB Q8HR [facility] Rx#:[id number] Intake, IV Titration 850 20 Amount Piperacillin-Tazobactam 3 100 .375 gm In Sodium Chloride 0.9% 100 ml @ 25 mls/hr IVPB Q8H [facility] Rx#: [id number] Sodium Chloride 0.9% 1, 250 20 000 ml @ 20 mls/hr IV . Q24H [facility] Rx#:[id number] Vancomycin 1,000 mg In 500 Sodium Chloride 0.9% 250 ml @ 125 mls/hr IVPB Q8H [facility] Rx#:[id number] Oral 236 240 Output: Urine 1650 510 30 Other: Voiding Method Indwelling Catheter Indwelling Catheter - Exam PHYSICAL EXAM GENERAL: Patient is awake alert and oriented. Cachectic. HEENT: Pupils are round and equally reacting to light. EOMI. No scleral icterus. No conjunctival pallor. Normocephalic, atraumatic. No pharyngeal erythema. No th yromegaly. CARDIOVASCULAR: S1 and S2 present. No murmurs, rubs, or gallops. PULMONARY: Chest is clear to auscultation, no wheezing or crackles. Decreased breath sounds in the right lower lobe. ABDOMEN: Soft, nontender, nondistended, normoactive bowel sounds. Surgical scars for laparoscopy in place. No palpable organomegaly. EXTREMITIES: No cyanosis, clubbing, or pedal edema. NEUROLOGICAL: No focal neurological deficits. Alert awake oriented 3. SKIN: No rashes. no petechiae - Labs CBC & Chem 7: 04/17/20 04:39 04/17/20 04:39 Labs: Abnormal Lab Results - Last 24 Hours (Table) 04/16/20 04/16/20 04/17/20 Range/Units 16:26 20:53 03:19 WBC (3.8-10.6) k/uL RBC (3.80-5.40) m/uL Hgb (11.4-16.0) gm/dL Hct (34.0-46.0) % Plt Count (150-450) k/uL Sodium (137-145) mmol/L Potassium (3.5-5.1) mmol/L Carbon Dioxide (22-30) mmol/L Creatinine (0.52-1.04) mg/dL Glucose (74-99) mg/dL POC Glucose (mg/dL) 221 H 199 H 174 H (75-99) mg/dL Calcium (8.4-10.2) mg/dL 04/17/20 04/17/20 04/17/20 Range/Units 04:39 04:39 12:06 WBC 13.2 H (3.8-10.6) k/uL RBC 3.29 L (3.80-5.40) m/uL Hgb 9.4 L (11.4-16.0) gm/dL Hct 30.5 L (34.0-46.0) % Plt Count 667 H (150-450) k/uL Sodium 136 L (137-145) mmol/L Potassium 3.2 L (3.5-5.1) mmol/L Carbon Dioxide 31 H (22-30) mmol/L Creatinine 0.26 L (0.52-1.04) mg/dL Glucose 171 H (74-99) mg/dL POC Glucose (mg/dL) 186 H (75-99) mg/dL Calcium 7.2 L (8.4-10.2) mg/dL Microbiology - Last 24 Hours (Table) 04/14/20 12:30 Blood Culture - Preliminary Blood No Growth after 72 hours 04/14/20 15:54 Gram Stain - Preliminary Pleural Fluid Body Fluid Culture - Preliminary Assessment and Plan Assessment: ASSESSMENT Acute encephalopathy- multiple etiology including infection(pneumonia), metabolic(hypoglycemia), drug overdose(morphine)- resolved Right lower lobe pneumonia/abscess status post 1.2 L of fluid drained Acute hypoxic respiratory failure Hypokalemia Acute hypoglycemia resolved New onset congestive heart failure, systolic and diastolic Pulmonary hypertension with RVSP of 46 Recent history of UTI Recent history of C. diff colitis Type 2 diabetes mellitus poorly controlled Status post cholecystectomy done 2 weeks back Hypertension Fibromyalgia Hyperlipidemia Chronic pain syndrome Depression Moderate protein calorie malnutrition Mild troponin elevation Lactic acidosis PLAN: Patient had 1.2 of pleural fluid drained from the right lung today by Dr. Ram and on antibiotics in the form of vancomycin and Zosyn. Patient's C. diff is negative, so her IV metronidazole has been discontinued. Patient had mildly elevated troponins, cardiology on board, she had an echo done showing ejection fraction of 25-30% with severely impaired left ventricular systolic function and grade 2 diastolic dysfunction. Patient has been started on IV Lasix. Patient has been started on beta blockers, Edwar inhibitors, statin and aspirin. As per discussion with Dr. Ram, she might need bronchoscopy. Further recommendations to follow depending on the progress of the patient. The treatment plan was discussed in detail with the patient at bedside today.
[2020-04-17 17:03] LABS: Glucose,Whole Blood 153 mg/dL (75-99)
[2020-04-17] MEDS: lisinopriL 5 MG TAB PO SCH (17:28)
[2020-04-17 20:26] LABS: Glucose,Whole Blood 324 mg/dL (75-99)
[2020-04-17] MEDS: ATORVASTATIN 20 MG TAB PO SCH (20:51)
[2020-04-17] MEDS ORDERED: lisinopriL 5 MG TAB PO ONE (21:00)
[2020-04-18] MEDS: VANCOMYCIN 1,250 MG in SODIUM CHLORIDE 0.9% 250 ML IVPB SCH ×4 (00:11→23:25)
[2020-04-18] MEDS: HYDROcodone/APAP 10-325MG 1 EACH TAB PO PRN ×3 (04:27→21:22)
[2020-04-18] MEDS: PIPERACILLIN-TAZOBACTAM 3.375 GM in SODIUM CHLORIDE 0.9% 100 ML IVPB SCH ×3 (06:23→22:17)
[2020-04-18 06:41] LABS: HCT 30.4 % (34.0-46.0); Hypochromasia Moderate; MCH 27.6 pg (25.0-35.0); MCHC 29.7 g/dL (31.0-37.0); Platelet Count 767 k/uL (150-450); RBC 3.27 m/uL (3.80-5.40); RDW 14.8 % (11.5-15.5); WBC 13.6 k/uL (3.8-10.6)
[2020-04-18 06:55] LABS: African American GFR (CKD) >90 (>60 ml/min/1.73 sqM); Anion Gap 2 mmol/L; Blood Urea Nitrogen 7 mg/dL (7-17); Calcium 7.1 mg/dL (8.4-10.2); Carbon Dioxide 33 mmol/L (22-30); Chloride 99 mmol/L (98-107); Glucose 252 mg/dL (74-99); Non-African American GFR(CKD) >90 (>60 ml/min/1.73 sqM); Potassium 3.4 mmol/L (3.5-5.1); Sodium 134 mmol/L (137-145)
[2020-04-18] MEDS: INSULIN ASPART (NovoLOG) 100 UNIT/ML VIAL SQ SCH ×8 (07:09→20:16)
--- NOTE | 2020-04-18 08:47 | P.PCN ---
Date of Procedure: 04/18/20 Preoperative Diagnosis: Pleural effusion, left-sided Postoperative Diagnosis: Pleural effusion left-sided Procedure(s) Performed: Thoracentesis Anesthesia: local Surgeon: Eliezer Ram Estimated Blood Loss (ml): 0 Pathology: other (The fluid was sent for pathology and chemical analysis) Operative Findings: A time-out was completed verifying correct patient, procedure, site, positioning, and implant (s) or special equipment if applicable. Ultrasound guidance was not used and appropriate fluid pocket was identified and marked. Patient was positioned, prepped and draped in usual sterile fashion. Lidocaine was used to anesthetize the area. A Thoracentesis catheter was introduced into the pleural space and fluid was removed. Blood loss was none. A chest x-ray was ordered to evaluate for pneumothorax. Total Fluid Removed: 850cc Color of Fluid: Turbid yellowish Fluid was sent for appropriate laboratory tests. Patient tolerated the procedure well and there were no complications.
[2020-04-18] MEDS ORDERED: HYDROcodone/APAP 10-325MG 1 EACH TAB PO ONE (08:49)
--- NOTE | 2020-04-18 08:50 | P.PN ---
Subjective Progress Note Date: 04/18/20 This is a 59-year-old female patient was brought into the emergency department by caregiver unresponsive, lethargic, hypoglycemic. The patient was in the hospital last week and the patient underwent a laparoscopic cholecystectomy for an acute cholecystitis on 04/08/2020. Note that the patient presented to the hospital because of symptoms of acute cholecystitis. She was having right upper quadrant pain. The pain was radiating to the back. She has some nausea. She had elevated white cell count of 18. She had low-grade fever. Ultrasound the gallbladder showed inflammation with fluid. LFTs were normal except for some mild elevation of alkaline phosphatase. The patient underwent the surgery and the patient was discharged home on Ceftin for a total of 5 days. She was also given incentive spirometer. Noted the chest x-ray prior to discharge showed a right-sided pleural effusion that was small. The patient came in today because of feeling lethargic and she was found to be quite lethargic and unresponsive by the caregiver. At the time of arrival the patient was found to be hypoglycemic. Her blood sugar was in the 40s. She was given 3 A of D50 based on 3 episodes of hypoglycemia that occurred since her being transferred to the hospital. The patient also had taken 2 tablets of 30 mg of morphine and was given to her by a friend. She was given Narcan in the emergency department. She became agitated and following that she was given Ativan and currently she is resting comfortably in bed. Based on her presentation, a CAT scan of the abdomen and pelvis was done and the CAT scan showed a large multi loculated collection in the right lower lobe of the lung with components measuring 4 x 3.3 and 6 x 4.4 cm in size respectively. There was internal air identified. Finding was consistent with a lung abscess. There was also evidence of small bowel thickening, nonspecific colitis and there was also evidence of a large right-sided pleural effusion. I saw the patient emergency department. She was still not fully communicating. She was lethargic. She would withdraw to painful additional 4 extremities. I was able to drain approximately 1.2 L of pleural fluid from the right lung. The pleural fluid was turbid dark yellowish in color. The patient tolerated the procedure well. Postprocedure chest x-ray showed no evidence of any pneumothorax. There is a persistent right lower lobe opacity with diminution of the pleural effusion. Note that the patient was having diarrhea and she has had previous history of C. diff colitis. A fecal management system was attached. The patient will be transferred to the intensive care unit. On 04/15/2020, the patient wide awake alert and communicating and following commands and answering questions. Marked improvement in his neurologic status compared to yesterday. She is requesting painkillers. She has body aches all o nadir and she is requesting painkillers and this is her main concern. Meanwhile, the patient is still bilateral pneumonia. After performing a thoracentesis yesterday which do not to be a transudate, I performed a CAT scan of the chest and the CAT scan showed extensive bilateral pneumonic infiltrates that is worse on the right compared to the left. There is also better pleural effusion and small. No empyema based on the pleural fluid analysis. Infiltrates are quite extensive and there is some mild mucin lymphadenopathy consistent with inflammatory disease. There is dense right middle lobe consolidation. No lung abscess was visualized. Based on all this, and based on the concern of a hos pital-acquired pneumonia, assess this patient a combination of Zosyn and vancomycin. The patient is not having any diarrhea at this point in time. Stool for C. diff was not collected. I think IV Flagyl can be discontinued. The white cell count is at 17.6. Function is stable with a creatinine of 0.2. No diarrhea. No abdominal pain. No nausea or vomiting. 04/16/2020, the patient is doing well. Awake and alert. Tolerating diet. No significant shortness of breath. Using incentive spirometer. Chest x-ray still showing extensive consolidation of the right lung along with some infiltration of the left lung base. As mentioned earlier, a transudate pleural fluid was aspirated from the right lung. Echocardiogram was done and the patient was found also to have cardiomyopathy with an ejection fraction on the left ventricle estimated to be around 25%. The patient remains on a combination of Zosyn and vancomycin. No chest pain. She is on 6 L of oxygen by nasal cannula pH is tolerating her diet. Her pain is under good control. No diarrhea for now. Blood cultures been negative. White cell count is down to 14.9. No altered mentation. 04/17/2020, I'm seeing the patient for a follow-up. The patient is doing well. The patient remains on accommodation of Zosyn and vancomycin. The patient is being treated for a right lung abscess/pneumonia. Nevertheless, the pleural effusion I think it's related to her underlying CHF as the patient was also found to have cardiomyopathy with impaired ejection fraction. I reviewed the CAT scan of the chest today. The patient was found to have a multi loculated collection in the right lower lobe which is felt to be related to an abscess. At the same time, the patient had recurrent and large bilateral pleural effusion right more than left along with some bilateral airspace consolidation and volume loss. Based on all this, I performed another thoracentesis of the patient's right lung and another 1.5 L of fluid was aspirated from the right lung. I intend to do a thoracentesis of the left lung. Noted earlier fluid was a salazar sudate. I'm going to start the patient on IV Lasix in addition to the antibiotics. She is awake and alert. She is complaining of chronic pain as usual. The patient is currently on 6 L of oxygen by nasal cannula. Hemodynamically stable. She is afebrile. 04/18/2020 on seeing the patient for a follow-up. The patient remains on a combination of Zosyn and vancomycin. Celexa discomfort along her right lateral chest and upper quadrant area. No significant shortness of breath. No fever or chills. Repeat chest x-ray shows a consolidation in the right lower lobe and there is also left-sided pleural effusion. Note that a right-sided thoracentesis was done yesterday successfully and a total of 1.5 L of fluid was removed. I performed arthrocentesis on her on the left and I will around 8 50 mL of pleural fluid and this will be sent for analysis. Note that the fluid on the right with a transudate and the patient remains on IV Lasix and she has an adequate urine output. She remains on 6 L of oxygen by nasal cannula. She is using incentive spirometer. No altered mentation. She is tolerating her diet. Cultures of been negative. Objective - Vital Signs Vital signs: Vital Signs Temp 98.5 F 04/18/20 04:00 Pulse 82 04/18/20 07:00 Resp 20 04/18/20 07:00 BP 140/79 04/18/20 07:00 Pulse Ox 98 04/18/20 07:00 Intake & Output 04/17/20 04/18/2020 18:59 06:59 18:59 Intake Total 1590 1070 110 Output Total 540 985 50 Balance 1050 85 60 Weight 57.6 kg 55.6 kg Intake: IV 590 590 110 Piperacillin-Tazobactam 3 100 100 .375 gm In Sodium Chloride 0.9% 100 ml @ 25 mls/hr IVPB Q8H [facility] Rx#: [id number] Potassium Chloride 10 meq 100 In Water For Injection 1 100ml.bag @ 100 mls/hr IVPB Q1HR [facility] Rx#: [id number] Sodium Chloride 0.9% 1, 240 240 10 000 ml @ 20 mls/hr IV . Q24H [facility] Rx#:[id number] Vancomycin 1,250 mg In 250 250 Sodium Chloride 0.9% 250 ml @ 125 mls/hr IVPB Q8HR [facility] Rx#:[id number] Oral 1000 480 Output: Urine 540 985 50 Other: Voiding Method Indwelling Catheter Indwelling Catheter - Exam Gen. appearance the patient awake and alert and is no focal neurological deficits Head exam was generally normal. There was no scleral icterus or corneal arcus. Mucous membranes were moist. Neck was supple and without jugular venous distension, thyromegaly, or carotid bruits. Carotids were easily palpable bilaterally. There was no adenopathy. Lungs sounds are diminished in the right lung base along with dullness to percussion and the patient also has diminished breath on the left lung base along with dullness to percussion. Cardiac exam revealed the PMI to be normally situated and sized. The rhythm was regular and no extrasystoles were noted during several minutes of auscultation. The first and second heart sounds were normal and physiologic splitting of the second heart sound was noted. There were no murmurs, rubs, clicks, or gallops. Abdominal exam revealed normal bowel sounds. The abdomen was soft, non-tender, and without masses, organomegaly, or appreciable enlargement of the abdominal aorta. Surgical scar over the right upper quadrant area at the site of lapar oscopic cholecystectomy tract infection and intact. No direct tenderness. No rebound tenderness. No guarding. Examination of the extremities revealed easily palpable radial, femoral and pedal pulses. There was no cyanosis, clubbing or edema. Examination of the skin revealed no evidence of significant rashes, suspicious appearing nevi or other concerning lesions. Neurologically, the patient is awake and alert and the patient does not have any focal neurological deficit. Cranial nerves are essentially intact. - Labs CBC & Chem 7: 04/18/20 06:05 04/18/20 06:05 Labs: Abnormal Lab Results - Last 24 Hours (Table) 04/17/20 04/17/20 04/17/20 Range/Units 12:06 17:02 20:25 WBC (3.8-10.6) k/uL RBC (3.80-5.40) m/uL Hgb (11.4-16.0) gm/dL Hct (34.0-46.0) % MCHC (31.0-37.0) g/dL Plt Count (150-450) k/uL Sodium (137-145) mmol/L Potassium (3.5-5.1) mmol/L Carbon Dioxide (22-30) mmol/L Creatinine (0.52-1.04) mg/dL Glucose (74-99) mg/dL POC Glucose (mg/dL) 186 H 153 H 324 H (75-99) mg/dL Calcium (8.4-10.2) mg/dL 04/18/20 04/18/20 Range/Units 06:05 06:05 WBC 13.6 H (3.8-10.6) k/uL RBC 3.27 L (3.80-5.40) m/uL Hgb 9.0 L (11.4-16.0) gm/dL Hct 30.4 L (34.0-46.0) % MCHC 29.7 L (31.0-37.0) g/dL Plt Count 767 H (150-450) k/uL Sodium 134 L (137-145) mmol/L Potassium 3.4 L (3.5-5.1) mmol/L Carbon Dioxide 33 H (22-30) mmol/L Creatinine 0.29 L (0.52-1.04) mg/dL Glucose 252 H (74-99) mg/dL POC Glucose (mg/dL) (75-99) mg/dL Calcium 7.1 L (8.4-10.2) mg/dL Microbiology - Last 24 Hours (Table) 04/14/20 15:54 Gram Stain - Preliminary Pleural Fluid Body Fluid Culture - Preliminary 04/14/20 12:30 Blood Culture - Preliminary Blood No Growth after 72 hours Assessment and Plan Plan: 1 bilateral lower lobe pneumonia right more than left. The patient has a multi loculated lesion in the right lung which is felt to be related to an abscess. Nevertheless, the pleural effusions are probably transudate related to her underlying CHF. I performed an initial thoracentesis. The patient had a recurrence of the pleural fluid. Another thoracentesis was done on the right draining 1.5 L and this is the second thoracentesis. I furthermore performed another thoracentesis on the left and I drained another 850 mL of pleural fluid and this was done successfully and the chest x-ray is pending for now. The patient remains on a combination of Zosyn and vancomycin. 2 acute hypoxic respiratory failure secondary to above, currently on 6 L of oxygen by nasal cannula 3 altered mental status recovered and the patient is back to normal 4 CHF with cardiomyopathy and an ejection fraction of 25-30% and moderate degree of pulmonary hypertension with a PA pressure of 46 5 diabetes mellitus type 2, poorly controlled on outpatient basis 6 post cholecystectomy and surgery was done on 04/08/2020 7 previous history of UTI 8 previous history of C. diff colitis and the patient is having extensive diarrhea and fecal management system was inserted. Rule out recurrent C. diff colitis specially the patient was taking antibiotics on outpatient basis 9 fibromyalgia 10 hypertension 11 hyperlipidemia 12 chronic pain syndrome with degenerative disc disease 13 former smoker 14 depression 15 opiates intake post Narcan treatment 16 leukocytosis and the patient's white cell count is improving 17 troponin leak 18 mild lactic acidosis, recovered Plan Continue IV Zosyn and add vancomycin Continue Lasix 20 mg a push every 12 hours. Bilateral thoracentesis was done and the chest x-rays to follow Left-sided pleural effusion will be sent for analysis including cytology and chemistry Transfer this patient to medical surgical floor with telemetry.
--- NOTE | 2020-04-18 08:59 | XR ---
EXAMINATION TYPE: XR chest 1V portable DATE OF EXAM: 04/18/2020 CLINICAL HISTORY: Pneumonia, CHF, pleural effusion TECHNIQUE: Portable upright view of the chest COMPARISON: 04/17/2020 chest radiograph FINDINGS: The cardiomediastinal silhouette is within normal limits for size. Unchanged moderate bila teral pleural effusions and bibasilar airspace opacities. No pneumothorax seen. The osseous structure s are intact. IMPRESSION: Unchanged moderate bilateral pleural effusions and bibasilar airspace opacities versus .
[2020-04-18] MEDS: ENOXAPARIN 40 MG/0.4 ML SYRINGE SQ SCH (09:10)
[2020-04-18] MEDS: ASPIRIN 81 MG PO SCH (09:10)
[2020-04-18] MEDS: METOPROLOL SUCCINATE (ER) 25 MG TAB.ER.24H PO SCH ×2 (09:11→20:19)
[2020-04-18] MEDS: POTASSIUM CHLORIDE ER 20 MEQ TAB.ER PO SCH ×2 (09:11→10:57)
[2020-04-18] MEDS: lisinopriL 10 MG TAB PO SCH (09:11)
[2020-04-18] MEDS: PANTOPRAZOLE 40 MG TABLET PO SCH (09:11)
[2020-04-18] MEDS: FUROSEMIDE 10 MG/ML 2 ML VIAL IV SCH ×2 (09:12→20:17)
[2020-04-18] MEDS: GABAPENTIN 100 MG CAP PO SCH ×2 (09:12→20:17)
--- NOTE | 2020-04-18 09:45 | XR ---
EXAMINATION TYPE: XR chest 1V DATE OF EXAM: 04/18/2020 CLINICAL HISTORY: Post left thoracentesis TECHNIQUE: Portable upright view of the chest COMPARISON: 04/18/2020 chest radiograph at 6:27 AM FINDINGS: There is near completely resolved left pleural effusion status post left thoracentesis. Th ere is linear subsegmental atelectasis at the left lung base. No pneumothorax. Moderate right pleural effusion and right basilar airspace opacities redemonstrated. The cardiomediastinal silhouette is wi thin normal limits for size. Pulmonary vasculature is normal. IMPRESSION: 1. Essentially resolved left pleural effusion status post left thoracentesis. No pneumothorax. 2. Redemonstrated moderate right pleural effusion.
[2020-04-18] MEDS: SODIUM CHLORIDE 0.9% 1,000 ML IV SCH ×2 (10:57→23:26)
[2020-04-18 12:11] LABS: Glucose,Whole Blood 251 mg/dL (75-99)
--- NOTE | 2020-04-18 12:31 | PN ---
PROGRESS NOTE Roula is a 59-year-old lady that is admitted to the ICU with bilateral pneumonia and pleural effusion, currently in the process of doing thoracentesis on her. She has a multiloculated fluid collection on the right side probably suggestive of lapses. Her ejection fraction is low at 20% to 25%. She is currently on aspirin, Lipitor, Lasix, Zestril, Toprol. On exam, heart rate is 80 beats per minute. Blood pressure is 140/70, respiratory rate is 18. There is no jugular venous distention. Chest exam reveals diminished air entry at the bases. Heart exam reveals first and second heart sounds. No gallop. There is a systolic murmur at the apex. Abdomen is soft. Exam of extremities did not reveal any edema. Peripheral pulses are palpable. LABS: Show that the hemoglobin is 9, potassium is 3.4, which is going to be supplemented. Creatinine is 0.29. ASSESSMENT: 1. Cardiomyopathy. 2. Elevated troponin. 3. Pneumonia. 4. Altered mental status. PLAN: I will continue the patient on current medications. MMODL / IJN: [id number] /
[2020-04-18 13:37] LABS: Appearance,BF Clear
[2020-04-18 13:41] LABS: Nucleated Cells, Body Fluid 32 /uL; RBC, Body Fluid 44 /uL
[2020-04-18 13:44] LABS: Mononuclear WBC,Body Fluid 19 %; Polynuclear WBC,Body Fluid 81 %; Total Cells Counted,Body Fluid 100
--- NOTE | 2020-04-18 14:16 | PN ---
PROGRESS NOTE DATE OF SERVICE: 04/18/2020 This 59-year-old woman with a past medical history of multiple medical problems was admitted with bilateral pneumonia. The patient had multiple aspirations, 1200 mL of fluid from the right side was aspirated and then 1250 the next day and 850 from the left side. The chest x-ray showed opacities on the right side and the patient is being closely monitored at this time. A chest CT was done a few days ago which showed extensive bilateral pneumonic infiltrate, worse on the right side. Empyema is a possibility is also considered. Patient will be closely monitored. PAST MEDICAL HISTORY: Reviewed. REVIEW OF SYSTEMS: CARDIOVASCULAR SYSTEM: No angina, palpitations. RESPIRATION: As mentioned earlier. GI: As mentioned earlier. : As mentioned earlier. NERVOUS SYSTEM: As mentioned earlier. CURRENT MEDICATIONS: Reviewed and include [place] 10 mg, Aspirin, Lipitor, Lovenox, Lasix, Neurontin, NovoLog, Zestril, Toprol-XL, Protonix. PHYSICAL EXAM: Patient is alert and oriented x3. Pulse is 82, blood pressure 140/70, respiration 20, temperature 98.4, pulse ox 98% on 5 L. HEENT: Conjunctivae normal. NECK: No jugular venous distension. CARDIOVASCULAR SYSTEM: S1, S2, muffled. RESPIRATION: Breath sounds diminished at the bases, a few scattered rhonchi, no crackles. ABDOMEN: Soft, nontender. LEGS: No edema. No swelling. NERVOUS SYSTEM: No focal deficits. LABS: WBC 13.7, hemoglobin 9, sodium 134, potassium 3.4, calcium is 7.1. ASSESSMENT: 1. Bilateral pneumonia, possibly community-acquired, possibly gram-negative with possible sepsis present on admission. 2. Status post bilateral pleural effusion, status post aspiration on both sides 1.2, 1.25 and 850 mL of fluid respectively. 3. Change in mental status. Metabolic encephalopathy multifactorial. 4. Acute hypoxic respiratory failure. 5. Hypokalemia. 6. Acute hypoglycemia. 7. New onset CHF, systolic and diastolic, some pulmonary hypertension. 8. History of recent urinary tract infection. 9. Recent history of Clostridium difficile colitis. 10.Diabetes mellitus type 2. 11.Status post cholecystectomy about 2 weeks ago. 12.Hypertension. 13.Fibromyalgia. 14.Hyperlipidemia. 15.Chronic pain syndrome. 16.Depression. 17.Moderate protein calorie malnutrition. 18.History of previous pneumonia. 19.Mild troponin elevation of undetermined significance. 20.Lactic acidosis. RECOMMENDATION: Recommend to continue current management and symptomatic treatment. Continue with antibiotics. Continue bronchodilators and spirometry. Supplement potassium, monitor blood sugars closely. Prognosis guarded because of multiple complex medical issues. Further recommendations to follow. MMODL / IJN: [id number] /
[2020-04-18] MEDS ORDERED: POTASSIUM CHLORIDE ER 20 MEQ TAB.ER PO SCH (15:00)
[2020-04-18 17:02] LABS: Glucose,Whole Blood 288 mg/dL (75-99)
[2020-04-18 20:11] LABS: Glucose,Whole Blood 261 mg/dL (75-99)
[2020-04-18] MEDS: ATORVASTATIN 20 MG TAB PO SCH (20:17)
[2020-04-18 21:15] LABS: Glucose, BF Source Pleural Fluid; Glucose, Body Fluid 259 mg/dL; LDH, Body Fluid Source Pleural Fluid; Total Protein, Body Fluid 872 mg/dL
[2020-04-18] MEDS ORDERED: MELATONIN 5 MG TABLET PO PRN (22:00)
[2020-04-18] MEDS: TEMAZEPAM 15 MG CAP PO PRN (23:25)
[2020-04-19] MEDS: PIPERACILLIN-TAZOBACTAM 3.375 GM in SODIUM CHLORIDE 0.9% 100 ML IVPB SCH ×3 (06:24→21:39)
[2020-04-19] MEDS: HYDROcodone/APAP 10-325MG 1 EACH TAB PO PRN ×3 (06:34→21:27)
[2020-04-19 06:41] LABS: Glucose,Whole Blood 227 mg/dL (75-99)
[2020-04-19] MEDS: INSULIN ASPART (NovoLOG) 100 UNIT/ML VIAL SQ SCH ×8 (06:50→21:29)
[2020-04-19 06:51] LABS: HCT 29.7 % (34.0-46.0); HGB 9.3 gm/dL (11.4-16.0); Hypochromasia Slight; MCH 28.5 pg (25.0-35.0); MCHC 31.4 g/dL (31.0-37.0); MCV 90.8 fL (80.0-100.0); Mean Platelet Volume 6.7; Platelet Count 554 k/uL (150-450); RBC 3.27 m/uL (3.80-5.40); RDW 15.1 % (11.5-15.5); WBC 10.7 k/uL (3.8-10.6)
[2020-04-19 07:05] LABS: African American GFR (CKD) >90 (>60 ml/min/1.73 sqM); Anion Gap 3 mmol/L; Blood Urea Nitrogen 8 mg/dL (7-17); Calcium 7.3 mg/dL (8.4-10.2); Carbon Dioxide 32 mmol/L (22-30); Chloride 102 mmol/L (98-107); Glucose 197 mg/dL (74-99); Non-African American GFR(CKD) >90 (>60 ml/min/1.73 sqM); Potassium 3.9 mmol/L (3.5-5.1); Sodium 137 mmol/L (137-145)
--- NOTE | 2020-04-19 07:58 | XR ---
EXAMINATION TYPE: XR chest 1V portable DATE OF EXAM: 04/19/2020 CLINICAL HISTORY: Difficulty breathing progress study. TECHNIQUE: Single AP portable upright view of the chest is obtained. COMPARISON: Chest x-ray from one day earlier and older studies. CT chest 2 days ago. FINDINGS: Background chronic emphysematous change with persistent right greater than left bibasilar opacities along with mild bilateral interstitial edema. Cardiac silhouette size stable and within nor mal limits. Osseous structures are intact. IMPRESSION: Suspect CHF exacerbation or fluid overload status there are small to borderline moderate size right greater than left pleural effusions with associated right greater than left bibasilar acut e atelectasis and/or infiltrates. Background chronic emphysematous change. Mild interstitial edema. N o significant change from one day earlier.
[2020-04-19] MEDS: lisinopriL 10 MG TAB PO SCH (08:10)
[2020-04-19] MEDS: METOPROLOL SUCCINATE (ER) 25 MG TAB.ER.24H PO SCH ×2 (08:10→21:27)
[2020-04-19] MEDS: ASPIRIN 81 MG PO SCH (08:10)
[2020-04-19] MEDS: PANTOPRAZOLE 40 MG TABLET PO SCH (08:10)
[2020-04-19] MEDS: FUROSEMIDE 10 MG/ML 2 ML VIAL IV SCH ×2 (08:10→21:29)
[2020-04-19] MEDS: GABAPENTIN 100 MG CAP PO SCH ×2 (08:10→21:27)
[2020-04-19] MEDS: ENOXAPARIN 40 MG/0.4 ML SYRINGE SQ SCH (08:11)
[2020-04-19] MEDS: VANCOMYCIN 1,250 MG in SODIUM CHLORIDE 0.9% 250 ML IVPB SCH ×3 (09:10→23:40)
--- NOTE | 2020-04-19 12:06 | P.PN ---
Subjective Progress Note Date: 04/19/20 This is a 59-year-old female patient was brought into the emergency department by caregiver unresponsive, lethargic, hypoglycemic. The patient was in the hospital last week and the patient underwent a laparoscopic cholecystectomy for an acute cholecystitis on 04/08/2020. Note that the patient presented to the hospital because of symptoms of acute cholecystitis. She was having right upper quadrant pain. The pain was radiating to the back. She has some nausea. She had elevated white cell count of 18. She had low-grade fever. Ultrasound the gallbladder showed inflammation with fluid. LFTs were normal except for some mild elevation of alkaline phosphatase. The patient underwent the surgery and the patient was discharged home on Ceftin for a total of 5 days. She was also given incentive spirometer. Noted the chest x-ray prior to discharge showed a right-sided pleural effusion that was small. The patient came in today because of feeling lethargic and she was found to be quite lethargic and unresponsive by the caregiver. At the time of arrival the patient was found to be hypoglycemic. Her blood sugar was in the 40s. She was given 3 A of D50 based on 3 episodes of hypoglycemia that occurred since her being transferred to the hospital. The patient also had taken 2 tablets of 30 mg of morphine and was given to her by a friend. She was given Narcan in the emergency department. She became agitated and following that she was given Ativan and currently she is resting comfortably in bed. Based on her presentation, a CAT scan of the abdomen and pelvis was done and the CAT scan showed a large multi loculated collection in the right lower lobe of the lung with components measuring 4 x 3.3 and 6 x 4.4 cm in size respectively. There was internal air identified. Finding was consistent with a lung abscess. There was also evidence of small bowel thickening, nonspecific colitis and there was also evidence of a large right-sided pleural effusion. I saw the patient emergency department. She was still not fully communicating. She was lethargic. She would withdraw to painful additional 4 extremities. I was able to drain approximately 1.2 L of pleural fluid from the right lung. The pleural fluid was turbid dark yellowish in color. The patient tolerated the procedure well. Postprocedure chest x-ray showed no evidence of any pneumothorax. There is a persistent right lower lobe opacity with diminution of the pleural effusion. Note that the patient was having diarrhea and she has had previous history of C. diff colitis. A fecal management system was attached. The patient will be transferred to the intensive care unit. On 04/15/2020, the patient wide awake alert and communicating and following commands and answering questions. Marked improvement in his neurologic status compared to yesterday. She is requesting painkillers. She has body aches all o nadir and she is requesting painkillers and this is her main concern. Meanwhile, the patient is still bilateral pneumonia. After performing a thoracentesis yesterday which do not to be a transudate, I performed a CAT scan of the chest and the CAT scan showed extensive bilateral pneumonic infiltrates that is worse on the right compared to the left. There is also better pleural effusion and small. No empyema based on the pleural fluid analysis. Infiltrates are quite extensive and there is some mild mucin lymphadenopathy consistent with inflammatory disease. There is dense right middle lobe consolidation. No lung abscess was visualized. Based on all this, and based on the concern of a hos pital-acquired pneumonia, assess this patient a combination of Zosyn and vancomycin. The patient is not having any diarrhea at this point in time. Stool for C. diff was not collected. I think IV Flagyl can be discontinued. The white cell count is at 17.6. Function is stable with a creatinine of 0.2. No diarrhea. No abdominal pain. No nausea or vomiting. 04/16/2020, the patient is doing well. Awake and alert. Tolerating diet. No significant shortness of breath. Using incentive spirometer. Chest x-ray still showing extensive consolidation of the right lung along with some infiltration of the left lung base. As mentioned earlier, a transudate pleural fluid was aspirated from the right lung. Echocardiogram was done and the patient was found also to have cardiomyopathy with an ejection fraction on the left ventricle estimated to be around 25%. The patient remains on a combination of Zosyn and vancomycin. No chest pain. She is on 6 L of oxygen by nasal cannula pH is tolerating her diet. Her pain is under good control. No diarrhea for now. Blood cultures been negative. White cell count is down to 14.9. No altered mentation. 04/17/2020, I'm seeing the patient for a follow-up. The patient is doing well. The patient remains on accommodation of Zosyn and vancomycin. The patient is being treated for a right lung abscess/pneumonia. Nevertheless, the pleural effusion I think it's related to her underlying CHF as the patient was also found to have cardiomyopathy with impaired ejection fraction. I reviewed the CAT scan of the chest today. The patient was found to have a multi loculated collection in the right lower lobe which is felt to be related to an abscess. At the same time, the patient had recurrent and large bilateral pleural effusion right more than left along with some bilateral airspace consolidation and volume loss. Based on all this, I performed another thoracentesis of the patient's right lung and another 1.5 L of fluid was aspirated from the right lung. I intend to do a thoracentesis of the left lung. Noted earlier fluid was a salazar sudate. I'm going to start the patient on IV Lasix in addition to the antibiotics. She is awake and alert. She is complaining of chronic pain as usual. The patient is currently on 6 L of oxygen by nasal cannula. Hemodynamically stable. She is afebrile. 04/18/2020 on seeing the patient for a follow-up. The patient remains on a combination of Zosyn and vancomycin. Celexa discomfort along her right lateral chest and upper quadrant area. No significant shortness of breath. No fever or chills. Repeat chest x-ray shows a consolidation in the right lower lobe and there is also left-sided pleural effusion. Note that a right-sided thoracentesis was done yesterday successfully and a total of 1.5 L of fluid was removed. I performed arthrocentesis on her on the left and I will around 8 50 mL of pleural fluid and this will be sent for analysis. Note that the fluid on the right with a transudate and the patient remains on IV Lasix and she has an adequate urine output. She remains on 6 L of oxygen by nasal cannula. She is using incentive spirometer. No altered mentation. She is tolerating her diet. Cultures of been negative. 04/19/2020 on seeing the patient for a follow-up. Noted the patient has undergone bilateral thoracentesis. Today's chest x-ray shows a right lower lobe consolidation and the residual bilateral pleural effusions are small. The patient remains on a combination of vancomycin and Zosyn. Note that the pleural fluid that was aspirated from the right lung was a transudate. The fluid was aspirated from the left lung also shows low protein and LDH consistent with a transudate. The patient is on Lasix and the patient is making adequate amount of urine output. She is established to have an underlying cardiomyopathy with impaired left ventricular ejection fraction of around 25%. The patient is also on Lasix 20 mg IV push every 12 hours. Cardiac rhythm is sinus. No fever. No chills. No significant leukocytosis. No nausea or vomiting. No emesis. Cultures of been all negative. I reviewed the CAT scan of the chest. I realize that the patient has a right paratracheal and subcarinal lymphadenopathy. There is also complex lesions within the right lung and the right lower lobe suggestive of abscess formation. I think is reasonable to do a bronchoscopy for airway inspection and at the same time attempted transbronchial needle aspirate of the mediastinal lymph nodes should there be any malignancy. The lymph nodes within the chest could be potentially inflammatory also as the patient extensive right lung pneumonia. Objective - Vital Signs Vital signs: Vital Signs Temp 98.7 F 04/19/20 08:00 Pulse 87 04/19/20 08:00 Resp 13 04/19/20 08:00 BP 123/68 04/19/20 08:00 Pulse Ox 94 L 04/19/20 08:00 Intake & Output 04/18/20 04/19/20 04/19/20 18:59 06:59 18:59 Intake Total 1430 610 250 Output Total 1140 1255 525 Balance 290 645 -275 Weight 56.6 kg Intake: IV 930 610 250 Piperacillin-Tazobactam 3 200 100 .375 gm In Sodium Chloride 0.9% 100 ml @ 25 mls/hr IVPB Q8H [facility] Rx#: [id number] Sodium Chloride 0.9% 1, 230 260 000 ml @ 20 mls/hr IV . Q24H [facility] Rx#:[id number] Vancomycin 1,250 mg In 500 250 250 Sodium Chloride 0.9% 250 ml @ 125 mls/hr IVPB Q8HR [facility] Rx#:[id number] Oral 500 Output: Urine 1140 1255 525 Other: Voiding Method Indwelling Catheter Indwelling Catheter Indwelling Catheter - Exam Gen. appearance the patient awake and alert and is no focal neurological d eficits Head exam was generally normal. There was no scleral icterus or corneal arcus. Mucous membranes were moist. Neck was supple and without jugular venous distension, thyromegaly, or carotid bruits. Carotids were easily palpable bilaterally. There was no adenopathy. Lungs sounds are diminished in the right lung base along with dullness to percussion and the patient also has diminished breath on the left lung base along with dullness to percussion. Cardiac exam revealed the PMI to be normally situated and sized. The rhythm was regular and no extrasystoles were noted during several minutes of auscultation. The first and second heart sounds were normal and physiologic splitting of the second heart sound was noted. There were no murmurs, rubs, clicks, or gallops. Abdominal exam revealed normal bowel sounds. The abdomen was soft, non-tender, and without masses, organomegaly, or appreciable enlargement of the abdominal aorta. Surgical scar over the right upper quadrant area at the site of laparoscopic cholecystectomy tract infection and intact. No direct tenderness. No rebound tenderness. No guarding. Examination of the extremities revealed easily palpable radial, femoral and pe leatha pulses. There was no cyanosis, clubbing or edema. Examination of the skin revealed no evidence of significant rashes, suspicious appearing nevi or other concerning lesions. Neurologically, the patient is awake and alert and the patient does not have any focal neurological deficit. Cranial nerves are essentially intact. - Labs CBC & Chem 7: 04/19/20 06:27 04/19/20 06:27 Labs: Abnormal Lab Results - Last 24 Hours (Table) 04/18/20 04/18/20 04/18/20 Range/Units 12:10 17:00 20:09 WBC (3.8-10.6) k/uL RBC (3.80-5.40) m/uL Hgb (11.4-16.0) gm/dL Hct (34.0-46.0) % Plt Count (150-450) k/uL Carbon Dioxide (22-30) mmol/L Creatinine (0.52-1.04) mg/dL Glucose (74-99) mg/dL POC Glucose (mg/dL) 251 H 288 H 261 H (75-99) mg/dL Calcium (8.4-10.2) mg/dL 04/19/20 04/19/20 04/19/20 Range/Units 06:27 06:27 06:40 WBC 10.7 H (3.8-10.6) k/uL RBC 3.27 L (3.80-5.40) m/uL Hgb 9.3 L (11.4-16.0) gm/dL Hct 29.7 L (34.0-46.0) % Plt Count 554 H (150-450) k/uL Carbon Dioxide 32 H (22-30) mmol/L Creatinine 0.37 L (0.52-1.04) mg/dL Glucose 197 H (74-99) mg/dL POC Glucose (mg/dL) 227 H (75-99) mg/dL Calcium 7.3 L (8.4-10.2) mg/dL Microbiology - Last 24 Hours (Table) 04/18/20 09:40 Gram Stain - Preliminary Pleural Fluid Body Fluid Culture - Preliminary 04/18/20 09:40 Acid Fast Bacilli Smear - Final Pleural Fluid Acid Fast Bacilli Culture - Preliminary 04/14/20 15:54 Gram Stain - Final Pleural Fluid Body Fluid Culture - Final 04/18/20 09:40 Fungal Culture - Preliminary Pleural Fluid 04/14/20 12:30 Blood Culture - Preliminary Blood No Growth after 96 hours Assessment and Plan Plan: 1 right lower lobe pneumonia/abscess formation as the patient has complex multiloculated collection in the right lower lobe could be related to an underlying abscess. The same time the patient bilateral pleural effusion and patient received bilateral thoracentesis and the fluid is a transudate for now. The patient has mediastinal lymphadenopathy involving the right paratracheal and subcarinal area and I intend to do a bronchoscopy tomorrow. 2 acute hypoxic respiratory failure secondary to above, currently on 4 L of oxygen by nasal cannula 3 altered mental status recovered and the patient is back to normal 4 CHF with cardiomyopathy and an ejection fraction of 25-30% and moderate degree of pulmonary hypertension with a PA pressure of 46 5 diabetes mellitus type 2, poorly controlled on outpatient basis 6 post cholecystectomy and surgery was done on 04/08/2020 7 previous history of UTI 8 previous history of C. diff colitis and the patient is having extensive diarrhea and fecal management system was inserted. Rule out recurrent C. diff colitis specially the patient was taking antibiotics on outpatient basis 9 fibromyalgia 10 hypertension 11 hyperlipidemia 12 chronic pain syndrome with degenerative disc disease 13 former smoker 14 depression 15 opiates intake post Narcan treatment 16 leukocytosis and the patient's white cell count is improving 17 troponin leak 18 mild lactic acidosis, recovered Plan Continue IV Zosyn and add vancomycin Continue Lasix 20 mg a push every 12 hours. The patient continues to make adequate amount of urine output and the patient will continue diuresis for now. Bilateral thoracentesis was done and the fluid is a transudate with a negative cytology Will need a bronchoscopy with lavage of the right lower lobe, airway inspection, and possibly transbronchial needle aspirate of the right paratracheal/subcarinal lymph node Transfer this patient to medical surgical floor with telemetry.
[2020-04-19 12:18] LABS: Glucose,Whole Blood 257 mg/dL (75-99)
[2020-04-19 12:20] LABS: Glucose,Whole Blood 189 mg/dL (75-99)
[2020-04-19] MEDS: DULoxetine HCL 30 MG CAPSULE.DR PO SCH (13:20)
--- NOTE | 2020-04-19 14:44 | PN ---
PROGRESS NOTE A 59-year-old lady that is admitted to hospital with pneumonia and congestive heart failure. She is feeling much better now. She has had thoracentesis on both sides. Her CT scan shows cavitating lesions and Dr. Ram is thinking of doing a bronchoscopy on her. Patient is currently on aspirin, Lipitor, Lasix, Zestril, Toprol-XL, and antibiotics. On exam, heart rate is 87 beats per minute. Blood pressure is 123/68, respiratory rate is 18. There is no jugular venous distention. Chest exam reveals diminished air entry at the right base. Heart exam reveals first and second heart sounds. No murmur. No rub. Abdomen is soft. Exam of extremities did not reveal any edema. Peripheral pulses are felt. LABS: Show that the hemoglobin is 9.3. Potassium is 3.9, creatinine is 0.37. ASSESSMENT: 1. Acute onset systolic heart failure. 2. Pneumonia with transudative pleural effusions. PLAN: Continue current medications including the IV Lasix. Await bronchoscopy. MMODL / IJN: [id number] /
[2020-04-19 15:00] LABS: Glucose,Whole Blood 322 mg/dL (75-99)
--- NOTE | 2020-04-19 15:59 | PN ---
PROGRESS NOTE DATE OF SERVICE: 04/19/2020 This 59-year-old woman who was admitted with bilateral pneumonia, possibly community- acquired, with possibly gram-negative also had bilateral pleural effusion. The patient had a pleural test by Dr. Ram. The patient also complained of generalized weakness and tiredness and also showing some asthenia also. The most recent chest x- ray which was reviewed personally by me showed bilateral lesions and right more than the left. Bronchoscopy is also being contemplated by Dr. Ram. A chest CT was also done on 04/17, two days ago which showed a multilocular collection of the right lower lobe, possibly abscess and empyema and increase in bilateral pleural effusions. The fluid studies done on 04/18 showed elevated glucose. Cultures are pending at this time. PAST MEDICAL HISTORY: Reviewed. REVIEW OF SYSTEMS: CARDIOVASCULAR SYSTEM: As mentioned earlier. RESPIRATION: As mentioned earlier. GI: No nausea. : No dysuria. NERVOUS SYSTEM: No numbness, weakness. CURRENT MEDICATIONS: Reviewed include: 1. [place] 10 mg. 2. Aspirin. 3. Lipitor. 4. Cymbalta. 5. Lovenox. 6. Lasix. 7. Neurontin. 8. NovoLog Mix. 9. Zestril. 10.Melatonin. 11.Toprol-XL. 12.Protonix. 13.Zosyn. PHYSICAL EXAMINATION: Patient is alert and oriented x3. Pulse 81, blood pressure 126/60, respirations 16, temperature 97.9, pulse ox 97% on 2 L. HEENT: Conjunctivae normal. Oral mucosa moist. NECK: No jugular venous distention. No carotid bruit. No lymph node enlargement. CARDIOVASCULAR SYSTEM: S1, S2, muffled. RESPIRATION: Breath sounds diminished at the bases, a few scattered rhonchi, no crackles. ABDOMEN: Soft, nontender. No mass palpable. LEGS: No edema NERVOUS SYSTEM: No focal deficits. LABS: WBC 10.2, hemoglobin 9.2, sodium 137, potassium 3.9. The pleural fluid features are noted. ASSESSMENT: 1. Rule out empyema. 2. Bilateral pneumonia possibly community-acquired, with possibly gram-negative with possible sepsis present on admission. 3. Status post bilateral pleural effusion, status post aspiration on both sides 1.2- 1.25, 850 mL of fluid respectively. 4. Change in mental status, acute metabolic encephalopathy, multifactorial. 5. Acute hypoxic respiratory failure. 6. Hypokalemia. 7. Acute hypoglycemia. 8. Generalized asthenia, gait dysfunction. 9. New onset CHF, systolic and diastolic with severe pulmonary hypertension. 10.History of recent urinary tract infection. 11.History of Clostridium difficile colitis. 12.Diabetes mellitus type 2. 13.Status post cholecystectomy 2 weeks ago. 14.Hypertension. 15.Fibromyalgia. 16.Hyperlipidemia. 17.Chronic pain syndrome. 18.Depression. 19.Moderate protein calorie malnutrition. 20.History of previous pneumonia. 21.Mild troponin elevation of undetermined significance. 22.Lactic acidosis history. RECOMMENDATION: In this 59-year-old woman who presented with multiple complex medical issues, will monitor the patient closely, continue with current medications, await pleural fluid cytology and culture. Currently, patient is on IV Zosyn as of . Will closely follow with Dr. Ram for possible bronchoscopy, so the patient is not getting better. Further recommendations to follow. Will initiate the insulin dose for better diabetic control. Further recommendations to follow. MMODL / IJN: [id number] /
[2020-04-19 18:27] LABS: Glucose,Whole Blood 315 mg/dL (75-99)
[2020-04-19] MEDS: INSULN ASP PRT/INSULIN ASPART 100 UNIT/ML 10 ML VIAL SQ SCH (18:33)
[2020-04-19 19:47] LABS: Glucose,Whole Blood 284 mg/dL (75-99)
[2020-04-19] MEDS ORDERED: MELATONIN 5 MG TABLET PO SCH (21:00)
[2020-04-19] MEDS: TEMAZEPAM 15 MG CAP PO PRN (21:27)
[2020-04-19] MEDS: ATORVASTATIN 20 MG TAB PO SCH (21:27)
[2020-04-20] MEDS: SODIUM CHLORIDE 0.9% 1,000 ML IV SCH (05:40)
[2020-04-20 06:06] LABS: Glucose,Whole Blood 132 mg/dL (75-99)
[2020-04-20] MEDS ORDERED: VANCOMYCIN TROUGH DUE 1 EACH MISC MISCELLANE ONE (07:00)
[2020-04-20] MEDS: INSULIN ASPART (NovoLOG) 100 UNIT/ML VIAL SQ SCH ×8 (07:15→21:58)
[2020-04-20] MEDS: INSULN ASP PRT/INSULIN ASPART 100 UNIT/ML 10 ML VIAL SQ SCH ×2 (07:53→18:03)
[2020-04-20] MEDS: PIPERACILLIN-TAZOBACTAM 3.375 GM in SODIUM CHLORIDE 0.9% 100 ML IVPB SCH ×3 (07:56→23:36)
[2020-04-20 08:32] LABS: African American GFR (CKD) >90 (>60 ml/min/1.73 sqM); Non-African American GFR(CKD) >90 (>60 ml/min/1.73 sqM)
[2020-04-20] MEDS: VANCOMYCIN 1,250 MG in SODIUM CHLORIDE 0.9% 250 ML IVPB SCH (09:09)
[2020-04-20] MEDS: HYDROcodone/APAP 10-325MG 1 EACH TAB PO PRN ×3 (09:10→21:56)
[2020-04-20] MEDS: LACTATED RINGERS 1,000 ML IV SCH (09:10)
[2020-04-20] MEDS: METOPROLOL SUCCINATE (ER) 25 MG TAB.ER.24H PO SCH ×2 (09:10→21:58)
[2020-04-20] MEDS: FUROSEMIDE 10 MG/ML 2 ML VIAL IV SCH (09:10)
[2020-04-20] MEDS: ASPIRIN 81 MG PO SCH ×2 (10:42→15:16)
[2020-04-20 12:14] LABS: Glucose,Whole Blood 115 mg/dL (75-99)
[2020-04-20] MEDS ORDERED: PROPOFOL 10 MG/ML 20 ML VIAL IV ONE (12:48)
[2020-04-20] MEDS ORDERED: IV FLUID CONTINUATION 400 ML IV ONE (12:48)
--- NOTE | 2020-04-20 13:28 | P.PN ---
Subjective Progress Note Date: 04/20/20 Principal diagnosis: Right lower lobe pneumonia/abscess formation with bilateral pleural effusions status post bilateral thoracentesis This is a 59-year-old female patient was brought into the emergency department by caregiver unresponsive, lethargic, hypoglycemic. The patient was in the hospital last week and the patient underwent a laparoscopic cholecystectomy for an acute cholecystitis on 04/08/2020. Note that the patient presented to the hospital because of symptoms of acute cholecystitis. She was having right upper quadrant pain. The pain was radiating to the back. She has some nausea. She had elevated white cell count of 18. She had low-grade fever. Ultrasound the gallbladder showed inflammation with fluid. LFTs were normal except for some mild elevation of alkaline phosphatase. The patient underwent the surgery and the patient was discharged home on Ceftin for a total of 5 days. She was also given incentive spirometer. Noted the chest x-ray prior to discharge showed a right-sided pleural effusion that was small. The patient came in today because of feeling lethargic and she was found to be quite lethargic and unresponsive by the caregiver. At the time of arrival the patient was found to be hypoglycemic. Her blood sugar was in the 40s. She was given 3 A of D50 based on 3 episodes of hypoglycemia that occurred since her being transferred to the hospital. The patient also had taken 2 tablets of 30 mg of morphine and was given to her by a friend. She was given Narcan in the emergency department. She became agitated and following that she was given Ativan and currently she is resting comfortably in bed. Based on her presentation, a CAT scan of the abdomen and pelvis was done and the CAT scan showed a large multi loculated collection in the right lower lobe of the lung with components measuring 4 x 3.3 and 6 x 4.4 cm in size respectively. There was internal air identified. Finding was consistent with a lung abscess. There was also evidence of small bowel thickening, nonspecific colitis and there was also evidence of a large right-sided pleural effusion. I saw the patient emergency department. She was still not fully communicating. She was lethargic. She would withdraw to painful additional 4 extremities. I was able to drain approximately 1.2 L of pleural fluid from the right lung. The pleural fluid was turbid dark yellowish in color. The patient tolerated the procedure well. Postprocedure chest x-ray showed no evidence of any pneumothorax. There is a persistent right lower lobe opacity with diminution of the pleural effusion. Note that the patient was having diarrhea and she has had previous history of C. diff colitis. A fecal management system was attached. The patient will be transferred to the intensive care unit. On 04/15/2020, the patient wide awake alert and communicating and following commands and answering questions. Marked improvement in his neurologic status compared to yesterday. She is requesting painkillers. She has body aches all over and she is requesting painkillers and this is her main concern. Meanwhile, the patient is still bilateral pneumonia. After performing a thoracentesis yesterday which do not to be a transudate, I performed a CAT scan of the chest and the CAT scan showed extensive bilateral pneumonic infiltrates that is worse on the right compared to the left. There is also better pleural effusion and small. No empyema based on the pleural fluid analysis. Infiltrates are quite extensive and there is some mild mucin lymphadenopathy consistent with inflammatory disease. There is dense right middle lobe consolidation. No lung abscess was visualized. Based on all this, and based on the concern of a hospital-acquired pneumonia, assess this patient a combination of Zosyn and vancomycin. The patient is not having any diarrhea at this point in time. Stool for C. diff was not collected. I think IV Flagyl can be discontinued. The white cell count is at 17.6. Function is stable with a creatinine of 0.2. No diarrhea. No abdominal pain. No nausea or vomiting. 04/16/2020, the patient is doing well. Awake and alert. Tolerating diet. No significant shortness of breath. Using incentive spirometer. Chest x-ray still showing extensive consolidation of the right lung along with some infiltration of the left lung base. As mentioned earlier, a transudate pleural fluid was aspirated from the right lung. Echocardiogram was done and the patient was found also to have cardiomyopathy with an ejection fraction on the left ventricle estimated to be around 25%. The patient remains on a combination of Zosyn and vancomycin. No chest pain. She is on 6 L of oxygen by nasal cannula pH is tolerating her diet. Her pain is under good control. No diarrhea for now. Blood cultures been negative. White cell count is down to 14.9. No altered mentation. 04/17/2020, I'm seeing the patient for a follow-up. The patient is doing well. The patient remains on accommodation of Zosyn and vancomycin. The patient is being treated for a right lung abscess/pneumonia. Nevertheless, the pleural effusion I think it's related to her underlying CHF as the patient was also found to have cardiomyopathy with impaired ejection fraction. I reviewed the CAT scan of the chest today. The patient was found to have a multi loculated collection in the right lower lobe which is felt to be related to an abscess. At the same time, the patient had recurrent and large bilateral pleural effusion right more than left along with some bilateral airspace consolidation and volume loss. Based on all this, I performed another thoracentesis of the patient's right lung and another 1.5 L of fluid was aspirated from the right lung. I intend to do a thoracentesis of the left lung. Noted earlier fluid was a transudate. I'm going to start the patient on IV Lasix in addition to the antibiotics. She is awake and alert. She is complaining of chronic pain as usual. The patient is currently on 6 L of oxygen by nasal cannula. Hemodynamically stable. She is afebrile. 04/18/2020 on seeing the patient for a follow-up. The patient remains on a com bination of Zosyn and vancomycin. Celexa discomfort along her right lateral chest and upper quadrant area. No significant shortness of breath. No fever or chills. Repeat chest x-ray shows a consolidation in the right lower lobe and there is also left-sided pleural effusion. Note that a right-sided thoracentesis was done yesterday successfully and a total of 1.5 L of fluid was removed. I performed arthrocentesis on her on the left and I will around 8 50 mL of pleural fluid and this will be sent for analysis. Note that the fluid on the right with a transudate and the patient remains on IV Lasix and she has an adequate urine output. She remains on 6 L of oxygen by nasal cannula. She is using incentive spirometer. No altered mentation. She is tolerating her diet. Cultures of been negative. 04/19/2020 on seeing the patient for a follow-up. Noted the patient has undergone bilateral thoracentesis. Today's chest x-ray shows a right lower lobe consolidation and the residual bilateral pleural effusions are small. The patient remains on a combination of vancomycin and Zosyn. Note that the pleural fluid that was aspirated from the right lung was a transudate. The fluid was as pirated from the left lung also shows low protein and LDH consistent with a transudate. The patient is on Lasix and the patient is making adequate amount of urine output. She is established to have an underlying cardiomyopathy with impaired left ventricular ejection fraction of around 25%. The patient is also on Lasix 20 mg IV push every 12 hours. Cardiac rhythm is sinus. No fever. No chills. No significant leukocytosis. No nausea or vomiting. No emesis. Cultures of been all negative. I reviewed the CAT scan of the chest. I realize that the patient has a right paratracheal and subcarinal lymphadenopathy. There is also complex lesions within the right lung and the right lower lobe suggestive of abscess formation. I think is reasonable to do a bronchoscopy for airway inspection and at the same time attempted transbronchial needle aspirate of the mediastinal lymph nodes should there be any malignancy. The lymph nodes within the chest could be potentially inflammatory also as the patient extensive right lung pneumonia. On 04/20/2020 patient seen in follow-up on selective care unit, she is resting comfortably in bed, breathing comfortably, early on 2 L of oxygen pulse ox is 97%, hemodynamically stable, she has been afebrile, patient is status post left thoracentesis on 04/19/2020 with negative cytology, the pleural fluid cytology from the right thoracentesis from 04/17/2020 was also negative. Total fluid analysis of the right sided pleural fluid showed transudate. Pleural fluid cultures have shown no growth. Empiric antiemetic coverage is in the form of Zosyn and vancomycin. She has been nothing by mouth after midnight for a bronchoscopy with BAL and possible biopsies today. He has had no chest pain, no cough or congestion, Objective - Vital Signs Vital signs: Vital Signs Temp 98.2 F 04/20/20 11:26 Pulse 95 04/20/20 11:26 Resp 19 04/20/20 11:26 BP 134/79 04/20/20 11:26 Pulse Ox 97 04/20/20 11:26 Intake & Output 04/19/20 04/20/20 04/20/20 18:59 06:59 18:59 Intake Total 852 480 Output Total 2024 0345 825 Balance -1173 -8690 -825 Weight 56 kg Intake: IV 630 Piperacillin-Tazobactam 3 100 .375 gm In Sodium Chloride 0.9% 100 ml @ 25 mls/hr IVPB Q8H [facility] Rx#: [id number] Sodium Chloride 0.9% 1, 30 000 ml @ 20 mls/hr IV . Q24H [facility] Rx#:[id number] Vancomycin 1,250 mg In 500 Sodium Chloride 0.9% 250 ml @ 125 mls/hr IVPB Q8HR [facility] Rx#:[id number] Oral 222 480 Output: Urine 2024 3125 825 Other: Voiding Method Indwelling Catheter Indwelling Catheter Indwelling Catheter - Exam GENERAL EXAM: Alert, very pleasant, 59-year-old white female, on 2 L of oxygen a pulse ox of 97% comfortable in no apparent distress. HEAD: Normocephalic/atraumatic. EYES: Normal reaction of pupils, equal size. Conjunctiva pink, sclera white. NOSE: Clear with pink turbinates. THROAT: No erythema or exudates. NECK: No masses, no JVD, no thyroid enlargement, no adenopathy. CHEST: No chest wall deformity. Symmetrical expansion. LUNGS: Equal air entry with no crackles, wheeze, rhonchi or dullness. CVS: Regular rate and rhythm, normal S1 and S2, no gallops, no murmurs, no rubs ABDOMEN: Soft, nontender. No hepatosplenomegaly, normal bowel sounds, no guarding or rigidity. EXTREMITIES: No clubbing, no edema, no cyanosis, 2+ pulses and upper and lower extremities. MUSCULOSKELETAL: Muscle strength and tone normal. SPINE: No scoliosis or deformity SKIN: No rashes CENTRAL NERVOUS SYSTEM: Alert and oriented -3. No focal deficits, tone is normal in all 4 extremities. PSYCHIATRIC: Alert and oriented -3. Appropriate affect. Intact judgment and insight. - Labs CBC & Chem 7: 04/19/20 06:27 04/20/20 07:03 Labs: Abnormal Lab Results - Last 24 Hours (Table) 04/19/20 04/19/20 04/19/20 Range/Units 14:59 18:26 19:46 Creatinine (0.52-1.04) mg/dL POC Glucose (mg/dL) 322 H 315 H 284 H (75-99) mg/dL 04/20/20 04/20/2020 Range/Units 06:04 07:03 11:46 Creatinine 0.33 L (0.52-1.04) mg/dL POC Glucose (mg/dL) 132 H 115 H (75-99) mg/dL Microbiology - Last 24 Hours (Table) 04/14/20 12:30 Blood Culture - Preliminary Blood No Growth after 120 hours 04/18/20 09:40 Gram Stain - Preliminary Pleural Fluid Body Fluid Culture - Preliminary Assessment and Plan Plan: Assessment: 1 right lower lobe pneumonia/abscess formation as the patient has complex multiloculated collection in the right lower lobe could be related to an underlying abscess. The same time the patient bilateral pleural effusion and patient received bilateral thoracentesis and the fluid is a transudate for now. The patient has mediastinal lymphadenopathy involving the right paratracheal and subcarinal area and I intend to do a bronchoscopy tomorrow. 2 acute hypoxic respiratory failure secondary to above, currently on 4 L of oxygen by nasal cannula 3 altered mental status recovered and the patient is back to normal 4 CHF with cardiomyopathy and an ejection fraction of 25-30% and moderate degree of pulmonary hypertension with a PA pressure of 46 5 diabetes mellitus type 2, poorly controlled on outpatient basis 6 post cholecystectomy and surgery was done on 04/08/2020 7 previous history of UTI 8 previous history of C. diff colitis and the patient is having extensive diarrhea and fecal management system was inserted. Rule out recurrent C. diff colitis specially the patient was taking antibiotics on outpatient basis 9 fibromyalgia 10 hypertension 11 hyperlipidemia 12 chronic pain syndrome with degenerative disc disease 13 former smoker 14 depression 15 opiates intake post Narcan treatment 16 leukocytosis and the patient's white cell count is improving 17 troponin leak 18 mild lactic acidosis, recovered Plan: Continue current antibiotic coverage,vital signs have been stable, no fever or chills, blood cultures have been negative, cytology from right and left pleural fluids have been negative. No acute events overnight, no worsening dyspnea, we'll proceed with the bronchoscopy with BAL and possible biopsies of the mediastinal lymph nodes today. I performed a history & physical examination of the patient and discussed their management with my nurse practitioner, Makenna Cheng. I reviewed the nurse practitioner's note and agree with the documented findings and plan of care. Lung sounds are positive for diminished breath sounds. The findings and the impression was discussed with the patient. I attest to the documentation by the nurse practitioner. Time with Patient: Less than 30
--- NOTE | 2020-04-20 14:09 | P.PN ---
Subjective Progress Note Date: 04/20/20 CHIEF COMPLAINT: CHF HISTORY OF PRESENT ILLNESS: Patient examined this visit. She denies shortness of breath. Denies chest pain. Patient remains on Lasix 20 mg IV every 12 hours. She is scheduled for a bronchoscopy and lymph node biopsy today with pulmonary. PHYSICAL EXAM: VITAL SIGNS: Reviewed. GENERAL: Well-developed in no acute distress. NECK: Supple. No JVD or thyromegaly LUNGS: Respirations even and unlabored. Lungs diminished bilaterally. HEART: Regular rate and rhythm. S1 and S2 heard. EXTREMITIES: Normal range of motion. No clubbing or cyanosis. Peripheral pulses intact. No lower extremity edema ASSESSMENT: Acute systolic heart failure, EF 25-30% Bilateral pleural effusions, status post thoracentesis Right lower lobe pneumonia, abscess formation Hypertension Hyperlipidemia Diabetes mellitus, type II PLAN: Discontinue IV Lasix Begin Lasix 20 mg by mouth twice a day Continue additional current cardiac medications Patient scheduled for bronchoscopy with possible lymph node biopsy today with pulmonary Nurse practitioner note has been reviewed by physician. Signing provider agrees with the documented findings, assessment, and plan of care. Objective - Vital Signs Vital signs: Vital Signs Temp 98.2 F 04/20/20 11:26 Pulse 95 04/20/20 11:26 Resp 19 04/20/20 11:26 BP 134/79 04/20/20 11:26 Pulse Ox 97 04/20/20 11:26 Intake & Output 04/19/20 04/20/20 04/20/20 18:59 06:59 18:59 Intake Total 852 480 200 Output Total 2024 3125 825 Balance -9997 -3950 -274 Weight 56 kg Intake: IV 630 200 Piperacillin-Tazobactam 3 100 .375 gm In Sodium Chloride 0.9% 100 ml @ 25 mls/hr IVPB Q8H [facility] Rx#: [id number] Sodium Chloride 0.9% 1, 30 000 ml @ 20 mls/hr IV . Q24H [facility] Rx#:[id number] Vancomycin 1,250 mg In 500 Sodium Chloride 0.9% 250 ml @ 125 mls/hr IVPB Q8HR [facility] Rx#:[id number] Oral 222 480 Output: Urine 2024 3125 825 Other: Voiding Method Indwelling Catheter Indwelling Catheter Indwelling Catheter - Labs CBC & Chem 7: 04/19/20 06:27 04/20/20 07:03 Labs: Abnormal Lab Results - Last 24 Hours (Table) 04/19/20 04/19/20 04/19/20 Range/Units 14:59 18:26 19:46 Creatinine (0.52-1.04) mg/dL POC Glucose (mg/dL) 322 H 315 H 284 H (75-99) mg/dL 04/20/20 04/20/20 04/20/20 Range/Units 06:04 07:03 11:46 Creatinine 0.33 L (0.52-1.04) mg/dL POC Glucose (mg/dL) 132 H 115 H (75-99) mg/dL Microbiology - Last 24 Hours (Table) 04/18/20 09:40 Gram Stain - Preliminary Pleural Fluid Body Fluid Culture - Preliminary 04/14/20 12:30 Blood Culture - Preliminary Blood No Growth after 120 hours
--- NOTE | 2020-04-20 15:09 | XR ---
EXAMINATION TYPE: XR chest 1V DATE OF EXAM: 04/20/2020 COMPARISON: 04/19/2020 INDICATION: Pneumonia TECHNIQUE: Single frontal view of the chest is obtained. FINDINGS: The heart size is normal. The pulmonary vasculature is normal. Right lower lobe consolidation has slight improvement. Small right pleural effusion is noted. Small l eft pleural effusion is present. Previous left lower lobe infiltrate has resolved IMPRESSION: 1. Improving right lower lobe infiltrate. 2. Small bilateral pleural effusions
[2020-04-20] MEDS: DULoxetine HCL 30 MG CAPSULE.DR PO SCH (15:15)
[2020-04-20] MEDS: FUROSEMIDE 20 MG TAB PO SCH (15:15)
[2020-04-20] MEDS: lisinopriL 10 MG TAB PO SCH (15:15)
[2020-04-20] MEDS: GABAPENTIN 100 MG CAP PO SCH ×2 (15:15→21:57)
[2020-04-20] MEDS: PANTOPRAZOLE 40 MG TABLET PO SCH (15:16)
[2020-04-20] MEDS: ENOXAPARIN 40 MG/0.4 ML SYRINGE SQ SCH (15:17)
--- NOTE | 2020-04-20 16:28 | PN ---
PROGRESS NOTE DATE OF SERVICE: 04/20/2020 This is a 59-year-old woman who was admitted with bilateral pneumonia, also had significant lesions in the lymph nodes. Dr. Ram is planning bronchoscopy to rule out the possibility of any malignancy. The patient also local lesions possible empyema is also consideration. The patient is afebrile. The most recent white count was mildly elevated 10.7. PAST MEDICAL HISTORY: Reviewed and the cultures are negative so far including AFB smears and cultures. REVIEW OF SYSTEMS: CARDIOVASCULAR SYSTEM: No angina, no palpitations. RESPIRATORY SYSTEM: As mentioned earlier. GI: As mentioned earlier. : As mentioned earlier. NERVOUS SYSTEM: As mentioned earlier. CURRENT MEDICATIONS: Reviewed include: 1. Harman 10 mg. 2. Aspirin. 3. Lipitor. 4. Cymbalta. 5. Lovenox. 6. Lasix. 7. Neurontin. 8. NovoLog Mix. 9. Lactated Ringer's. 10.Zestril. 11.Melatonin. 12.Toprol. 13.Replacement protocols. 14.Zosyn. 15.Restoril. 16.Vancomycin. PHYSICAL EXAMINATION: Alert and oriented x3. Pulse 95, blood pressure 130/70, respiration 18, temperature 98.2, pulse ox 94% on 2 L. HEENT: Conjunctivae normal. NECK: No jugular venous distension. CARDIOVASCULAR SYSTEM: S1, S2, muffled. RESPIRATION: Breath sounds diminished at the bases, a few scattered rhonchi, no crackles. ABDOMEN: Soft, nontender. LEGS: No edema, no swelling. NERVOUS SYSTEM: No focal deficits. LABS: WBC is 10.2, hemoglobin is 9.3. ASSESSMENT: 1. Bilateral pneumonia with possibly community-acquired pneumonia with possibly gram- negative with possible sepsis present on admission. 2. Bilateral pleural effusion, status post multiple aspirations 1.2 to 1.25 and 850 mL fluid suspected on both sides. 3. Possible empyema. 4. Change in mental status, acute metabolic encephalopathy, multifactorial. 5. Acute hypoxic respiratory failure present on admission. 6. Hypokalemia. 7. Acute hypoglycemia. 8. Generalized asthenia, gait dysfunction. 9. New onset CHF acute, systolic and diastolic with severe pulmonary hypertension. 10.History of recent urinary tract infection. 11.History of Clostridium difficile colitis. 12.Diabetes mellitus type 2. 13.Status post cholecystectomy 2 weeks ago. 14.Hypertension. 15.Fibromyalgia. 16.Hyperlipidemia. 17.Chronic pain syndrome. 18.Depression. 19.Moderate protein calorie malnutrition. 20.History of previous pneumonia. 21.Mild troponin elevation of undetermined significance. 22.Lactic acidosis history. 23.FULL CODE. RECOMMENDATION: Recommend to continue current management and symptomatic treatment, otherwise continue with broad-spectrum IV antibiotics and continue the bronchodilators. Await bronchoscopy by Dr. Ram. Otherwise, continue to monitor. Prognosis guarded. Further recommendations to follow. MMODL / IJN: [id number] /
[2020-04-20 17:09] LABS: Glucose,Whole Blood 147 mg/dL (75-99)
[2020-04-20] MEDS: VANCOMYCIN 1,000 MG in SODIUM CHLORIDE 0.9% 250 ML IVPB SCH ×3 (17:40→23:40)
[2020-04-20 20:46] LABS: Glucose,Whole Blood 299 mg/dL (75-99)
[2020-04-20] MEDS: TEMAZEPAM 15 MG CAP PO PRN (21:58)
[2020-04-20] MEDS: ATORVASTATIN 20 MG TAB PO SCH (21:58)
[2020-04-21] MEDS: SODIUM CHLORIDE 0.9% 1,000 ML IV SCH ×2 (02:19→23:14)
[2020-04-21 02:20] LABS: Glucose,Whole Blood 140 mg/dL (75-99)
[2020-04-21] MEDS: HYDROcodone/APAP 10-325MG 1 EACH TAB PO PRN ×3 (04:26→21:19)
[2020-04-21] MEDS: PIPERACILLIN-TAZOBACTAM 3.375 GM in SODIUM CHLORIDE 0.9% 100 ML IVPB SCH ×3 (05:42→21:15)
[2020-04-21 06:15] LABS: Glucose,Whole Blood 87 mg/dL (75-99)
[2020-04-21] MEDS: INSULIN ASPART (NovoLOG) 100 UNIT/ML VIAL SQ SCH ×8 (06:51→21:15)
[2020-04-21] MEDS: INSULN ASP PRT/INSULIN ASPART 100 UNIT/ML 10 ML VIAL SQ SCH ×2 (08:34→17:23)
[2020-04-21] MEDS: GABAPENTIN 100 MG CAP PO SCH ×2 (09:47→21:15)
[2020-04-21] MEDS: DULoxetine HCL 30 MG CAPSULE.DR PO SCH (09:47)
[2020-04-21] MEDS: METOPROLOL SUCCINATE (ER) 25 MG TAB.ER.24H PO SCH ×2 (09:48→21:15)
[2020-04-21] MEDS: FUROSEMIDE 20 MG TAB PO SCH ×2 (09:48→15:15)
[2020-04-21] MEDS: PANTOPRAZOLE 40 MG TABLET PO SCH (09:49)
[2020-04-21] MEDS: lisinopriL 10 MG TAB PO SCH (09:49)
[2020-04-21] MEDS: VANCOMYCIN 1,000 MG in SODIUM CHLORIDE 0.9% 250 ML IVPB SCH ×3 (09:50→23:14)
[2020-04-21] MEDS: ENOXAPARIN 40 MG/0.4 ML SYRINGE SQ SCH (09:50)
[2020-04-21 09:51] LABS: African American GFR (CKD) >90 (>60 ml/min/1.73 sqM); Non-African American GFR(CKD) >90 (>60 ml/min/1.73 sqM)
[2020-04-21] MEDS ORDERED: RX INFO: IV CONTRAST WAS GIVEN 1 EACH MISC MISCELLANE PRN (09:56)
--- NOTE | 2020-04-21 11:38 | CT ---
EXAMINATION TYPE: CT chest w con DATE OF EXAM: 04/21/2020 COMPARISON: CT chest 04/17/2020 HISTORY: History of mass. CT DLP: 237.5 mGycm Automated exposure control for dose reduction was used. CONTRAST: CT scan of the chest is performed with IV Contrast, patient injected with 100 mL of Isovue 300. FINDINGS: LUNGS: Centrilobular emphysematous changes. There is improved aeration of the bilateral lungs versus 04/17/2020. Mild bibasilar atelectasis adjacent to moderate right and small left pleural effusions. Pl eural effusions are decreased versus 04/17/2020. There is a redemonstrated focal fluid collection rylan uring 3.8 x 3.1 cm at the right middle lobe infrahilar region causing some upstream atelectasis. This fluid component measured 3.5 x 2.8 cm on 04/17/2020, and is mildly increased on current exam with a f ew tiny foci of air. The distal multiloculated fluid collection of the anterior inferior right middle lobe is mildly decreased in size measuring up to proximally 2.9 x 4.1 cm, with tiny loculated focus of air (201:40). This fluid collection previously measured 4.1 x 4.9 cm on 04/17/2020. These 2 fluid collections may be contiguous. The tracheobronchial tree is patent. MEDIASTINUM/SOFT TISSUES: No axillary, hilar, or mediastinal lymphadenopathy greater than 1 cm. Cardi ac size is normal. Calcified coronary artery disease. No pericardial effusion. No thoracic aortic ane urysm. UPPER ABDOMEN: Ascites redemonstrated. OSSEOUS: No acute osseous abnormality. IMPRESSION: 1. Right middle lobe infrahilar loculated fluid collection is mildly increased in size versus 020 comparison. The immediately adjacent inferior anterior multiloculated fluid collection of the rig ht middle lobe is mildly decreased in size with small focus of loculated gas. These 2 fluid collectio ns may be contiguous versus immediately adjacent. Findings likely represent abscess. 2. Moderate right and small left pleural effusions are decreased versus 04/17/2020.
--- NOTE | 2020-04-21 11:52 | P.PN ---
Subjective Progress Note Date: 04/21/20 CHIEF COMPLAINT: CHF HISTORY OF PRESENT ILLNESS: Patient examined this morning at the bedside. She is status post bronchoscopy with pulmonary. She currently denies chest pain. Denies shortness of breath. She has been transitioned to oral Lasix. Creatinine 0.40. Blood pressure this morning elevated at 167/83. However blood pressure overnight was 91/54. PHYSICAL EXAM: VITAL SIGNS: Reviewed. GENERAL: Well-developed in no acute distress. NECK: Supple. No JVD or thyromegaly LUNGS: Respirations even and unlabored. Lungs diminished bilaterally. HEART: Regular rate and rhythm. S1 and S2 heard. EXTREMITIES: Normal range of motion. No clubbing or cyanosis. Peripheral pulses intact. No lower extremity edema ASSESSMENT: Acute systolic heart failure, EF 25-30% Bilateral pleural effusions, status post thoracentesis Right lower lobe pneumonia, abscess formation, status post bronchoscopy Hypertension Hyperlipidemia Diabetes mellitus, type II PLAN: Continue current cardiac medications Daily weights and accurate I&O Patient hypertensive this morning, but hypotensive overnight. Continue to monitor BP. Will make modifications as needed to medication regimen Nurse practitioner note has been reviewed by physician. Signing provider agrees with the documented findings, assessment, and plan of care. Objective - Vital Signs Vital signs: Vital Signs Temp 98.8 F 04/21/20 09:03 Pulse 86 04/21/20 09:03 Resp 16 04/21/20 09:03 BP 167/83 04/21/20 09:03 Pulse Ox 98 04/21/20 09:03 Intake & Output 04/20/20 04/21/20 04/21/20 18:59 06:59 18:59 Intake Total 1660 120 Output Total 2425 800 Balance -765 -800 120 Weight 57 kg Intake: IV 1060 120 Piperacillin-Tazobactam 3 200 100 .375 gm In Sodium Chloride 0.9% 100 ml @ 25 mls/hr IVPB Q8H [facility] Rx#: [id number] Sodium Chloride 0.9% 1, 160 20 000 ml @ 20 mls/hr IV . Q24H [facility] Rx#:[id number] Vancomycin 1,250 mg In 500 Sodium Chloride 0.9% 250 ml @ 125 mls/hr IVPB Q8HR [facility] Rx#:[id number] Oral 600 Output: Urine 2425 800 Uretheral ([place]) 1600 Other: Voiding Method Indwelling Catheter # Voids 0 - Labs CBC & Chem 7: 04/19/20 06:27 04/21/20 09:21 Labs: Abnormal Lab Results - Last 24 Hours (Table) 04/20/20 04/20/20 04/20/20 Range/Units 11:46 17:04 20:45 Creatinine (0.52-1.04) mg/dL POC Glucose (mg/dL) 115 H 147 H 299 H (75-99) mg/dL 04/21/20 04/21/20 Range/Units 02:17 09:21 Creatinine 0.40 L (0.52-1.04) mg/dL POC Glucose (mg/dL) 140 H (75-99) mg/dL Microbiology - Last 24 Hours (Table) 04/20/20 13:10 Gram Stain - Preliminary Bronchoalviolar Lavage - Right Bronchial Washings Culture - Preliminary 04/20/20 13:10 Acid Fast Bacilli Smear - Final Bronchoalviolar Lavage - Right Acid Fast Bacilli Culture - Preliminary 04/20/20 13:10 Fungal Culture - Preliminary Bronchoalviolar Lavage - Right 04/14/20 12:30 Blood Culture - Final Blood No Growth after 144 hours 04/18/20 09:40 Gram Stain - Preliminary Pleural Fluid Body Fluid Culture - Preliminary
--- NOTE | 2020-04-21 12:33 | P.PN ---
Subjective Progress Note Date: 04/21/20 Principal diagnosis: Right lower lobe pneumonia/abscess formation with bilateral pleural effusions status post bilateral thoracentesis This is a 59-year-old female patient was brought into the emergency department by caregiver unresponsive, lethargic, hypoglycemic. The patient was in the hospital last week and the patient underwent a laparoscopic cholecystectomy for an acute cholecystitis on 04/08/2020. Note that the patient presented to the hospital because of symptoms of acute cholecystitis. She was having right upper quadrant pain. The pain was radiating to the back. She has some nausea. She had elevated white cell count of 18. She had low-grade fever. Ultrasound the gallbladder showed inflammation with fluid. LFTs were normal except for some mild elevation of alkaline phosphatase. The patient underwent the surgery and the patient was discharged home on Ceftin for a total of 5 days. She was also given incentive spirometer. Noted the chest x-ray prior to discharge showed a right-sided pleural effusion that was small. The patient came in today because of feeling lethargic and she was found to be quite lethargic and unresponsive by the caregiver. At the time of arrival the patient was found to be hypoglycemic. Her blood sugar was in the 40s. She was given 3 A of D50 based on 3 episodes of hypoglycemia that occurred since her being transferred to the hospital. The patient also had taken 2 tablets of 30 mg of morphine and was given to her by a friend. She was given Narcan in the emergency department. She became agitated and following that she was given Ativan and currently she is resting comfortably in bed. Based on her presentation, a CAT scan of the abdomen and pelvis was done and the CAT scan showed a large multi loculated collection in the right lower lobe of the lung with components measuring 4 x 3.3 and 6 x 4.4 cm in size respectively. There was internal air identified. Finding was consistent with a lung abscess. There was also evidence of small bowel thickening, nonspecific colitis and there was also evidence of a large right-sided pleural effusion. I saw the patient emergency department. She was still not fully communicating. She was lethargic. She would withdraw to painful additional 4 extremities. I was able to drain approximately 1.2 L of pleural fluid from the right lung. The pleural fluid was turbid dark yellowish in color. The patient tolerated the procedure well. Postprocedure chest x-ray showed no evidence of any pneumothorax. There is a persistent right lower lobe opacity with diminution of the pleural effusion. Note that the patient was having diarrhea and she has had previous history of C. diff colitis. A fecal management system was attached. The patient will be transferred to the intensive care unit. On 04/15/2020, the patient wide awake alert and communicating and following commands and answering questions. Marked improvement in his neurologic status compared to yesterday. She is requesting painkillers. She has body aches all over and she is requesting painkillers and this is her main concern. Meanwhile, the patient is still bilateral pneumonia. After performing a thoracentesis yesterday which do not to be a transudate, I performed a CAT scan of the chest and the CAT scan showed extensive bilateral pneumonic infiltrates that is worse on the right compared to the left. There is also better pleural effusion and small. No empyema based on the pleural fluid analysis. Infiltrates are quite extensive and there is some mild mucin lymphadenopathy consistent with inflammatory disease. There is dense right middle lobe consolidation. No lung abscess was visualized. Based on all this, and based on the concern of a hospital-acquired pneumonia, assess this patient a combination of Zosyn and vancomycin. The patient is not having any diarrhea at this point in time. Stool for C. diff was not collected. I think IV Flagyl can be discontinued. The white cell count is at 17.6. Function is stable with a creatinine of 0.2. No diarrhea. No abdominal pain. No nausea or vomiting. 04/16/2020, the patient is doing well. Awake and alert. Tolerating diet. No significant shortness of breath. Using incentive spirometer. Chest x-ray still showing extensive consolidation of the right lung along with some infiltration of the left lung base. As mentioned earlier, a transudate pleural fluid was aspirated from the right lung. Echocardiogram was done and the patient was found also to have cardiomyopathy with an ejection fraction on the left ventricle estimated to be around 25%. The patient remains on a combination of Zosyn and vancomycin. No chest pain. She is on 6 L of oxygen by nasal cannula pH is tolerating her diet. Her pain is under good control. No diarrhea for now. Blood cultures been negative. White cell count is down to 14.9. No altered mentation. 04/17/2020, I'm seeing the patient for a follow-up. The patient is doing well. The patient remains on accommodation of Zosyn and vancomycin. The patient is being treated for a right lung abscess/pneumonia. Nevertheless, the pleural effusion I think it's related to her underlying CHF as the patient was also found to have cardiomyopathy with impaired ejection fraction. I reviewed the CAT scan of the chest today. The patient was found to have a multi loculated collection in the right lower lobe which is felt to be related to an abscess. At the same time, the patient had recurrent and large bilateral pleural effusion right more than left along with some bilateral airspace consolidation and volume loss. Based on all this, I performed another thoracentesis of the patient's right lung and another 1.5 L of fluid was aspirated from the right lung. I intend to do a thoracentesis of the left lung. Noted earlier fluid was a transudate. I'm going to start the patient on IV Lasix in addition to the antibiotics. She is awake and alert. She is complaining of chronic pain as usual. The patient is currently on 6 L of oxygen by nasal cannula. Hemodynamically stable. She is afebrile. 04/18/2020 on seeing the patient for a follow-up. The patient remains on a com bination of Zosyn and vancomycin. Celexa discomfort along her right lateral chest and upper quadrant area. No significant shortness of breath. No fever or chills. Repeat chest x-ray shows a consolidation in the right lower lobe and there is also left-sided pleural effusion. Note that a right-sided thoracentesis was done yesterday successfully and a total of 1.5 L of fluid was removed. I performed arthrocentesis on her on the left and I will around 8 50 mL of pleural fluid and this will be sent for analysis. Note that the fluid on the right with a transudate and the patient remains on IV Lasix and she has an adequate urine output. She remains on 6 L of oxygen by nasal cannula. She is using incentive spirometer. No altered mentation. She is tolerating her diet. Cultures of been negative. 04/19/2020 on seeing the patient for a follow-up. Noted the patient has undergone bilateral thoracentesis. Today's chest x-ray shows a right lower lobe consolidation and the residual bilateral pleural effusions are small. The patient remains on a combination of vancomycin and Zosyn. Note that the pleural fluid that was aspirated from the right lung was a transudate. The fluid was as pirated from the left lung also shows low protein and LDH consistent with a transudate. The patient is on Lasix and the patient is making adequate amount of urine output. She is established to have an underlying cardiomyopathy with impaired left ventricular ejection fraction of around 25%. The patient is also on Lasix 20 mg IV push every 12 hours. Cardiac rhythm is sinus. No fever. No chills. No significant leukocytosis. No nausea or vomiting. No emesis. Cultures of been all negative. I reviewed the CAT scan of the chest. I realize that the patient has a right paratracheal and subcarinal lymphadenopathy. There is also complex lesions within the right lung and the right lower lobe suggestive of abscess formation. I think is reasonable to do a bronchoscopy for airway inspection and at the same time attempted transbronchial needle aspirate of the mediastinal lymph nodes should there be any malignancy. The lymph nodes within the chest could be potentially inflammatory also as the patient extensive right lung pneumonia. On 04/20/2020 patient seen in follow-up on selective care unit, she is resting comfortably in bed, breathing comfortably, early on 2 L of oxygen pulse ox is 97%, hemodynamically stable, she has been afebrile, patient is status post left thoracentesis on 04/19/2020 with negative cytology, the pleural fluid cytology from the right thoracentesis from 04/17/2020 was also negative. Total fluid analysis of the right sided pleural fluid showed transudate. Pleural fluid cultures have shown no growth. Empiric antiemetic coverage is in the form of Zosyn and vancomycin. She has been nothing by mouth after midnight for a bronchoscopy with BAL and possible biopsies today. He has had no chest pain, no cough or congestion, On 04/21/2020 patient seen in follow-up on selective care unit. Patient is awake, denies any difficulty breathing, she isn't liters of oxygen pulse ox of 90%, she's had no fever or chills, her pleural fluid cytologies from the right and left thoracentesis have been negative, she is status post bronchoscopy with BAL, and transbronchial needle aspirate of the right peritracheal/subcarinal lymph node, biopsy is pending. CT chest this morning was obtained and showed right middle lobe infrahilar loculated fluid collection mildly increased in size since 04/17/2020, and immediately adjacent inferior anterior multilocular fluid collection in the right middle lobe is mildly decreased small focus of loculated gas, 2 fluid collections may be contiguous in the findings likely represent abscess. There were moderate right and small left pleural effusions that decreased to previous CT chest. Clinically patient has remained stable. No hemoptysis. Objective - Vital Signs Vital signs: Vital Signs Temp 98.8 F 04/21/20 09:03 Pulse 86 04/21/20 09:03 Resp 16 04/21/20 09:03 BP 167/83 04/21/20 09:03 Pulse Ox 98 04/21/20 09:03 Intake & Output 04/20/20 04/21/20 04/21/20 18:59 06:59 18:59 Intake Total 1660 120 Output Total 2425 800 Balance -765 -800 120 Weight 57 kg Intake: IV 1060 120 Piperacillin-Tazobactam 3 200 100 .375 gm In Sodium Chloride 0.9% 100 ml @ 25 mls/hr IVPB Q8H [facility] Rx#: [id number] Sodium Chloride 0.9% 1, 160 20 000 ml @ 20 mls/hr IV . Q24H [facility] Rx#:[id number] Vancomycin 1,250 mg In 500 Sodium Chloride 0.9% 250 ml @ 125 mls/hr IVPB Q8HR [facility] Rx#:[id number] Oral 600 Output: Urine 2425 800 Uretheral ([place]) 1600 Other: Voiding Method Indwelling Catheter # Voids 0 - Exam GENERAL EXAM: Alert, very pleasant, 59-year-old white female, on 2 L of oxygen a pulse ox of 98% comfortable in no apparent distress. HEAD: Normocephalic/atraumatic. EYES: Normal reaction of pupils, equal size. Conjunctiva pink, sclera white. NOSE: Clear with pink turbinates. THROAT: No erythema or exudates. NECK: No masses, no JVD, no thyroid enlargement, no adenopathy. CHEST: No chest wall deformity. Symmetrical expansion. LUNGS: Equal air entry with no crackles, wheeze, rhonchi or dullness. CVS: Regular rate and rhythm, normal S1 and S2, no gallops, no murmurs, no rubs ABDOMEN: Soft, nontender. No hepatosplenomegaly, normal bowel sounds, no guarding or rigidity. EXTREMITIES: No clubbing, no edema, no cyanosis, 2+ pulses and upper and lower extremities. MUSCULOSKELETAL: Muscle strength and tone normal. SPINE: No scoliosis or deformity SKIN: No rashes CENTRAL NERVOUS SYSTEM: Alert and oriented -3. No focal deficits, tone is normal in all 4 extremities. PSYCHIATRIC: Alert and oriented -3. Appropriate affect. Intact judgment and insight. - Labs CBC & Chem 7: 04/19/20 06:27 04/21/20 09:21 Labs: Abnormal Lab Results - Last 24 Hours (Table) 04/20/20 04/20/20 04/21/20 Range/Units 17:04 20:45 02:17 Creatinine (0.52-1.04) mg/dL POC Glucose (mg/dL) 147 H 299 H 140 H (75-99) mg/dL 04/21/20 Range/Units 09:21 Creatinine 0.40 L (0.52-1.04) mg/dL POC Glucose (mg/dL) (75-99) mg/dL Microbiology - Last 24 Hours (Table) 04/18/20 09:40 Gram Stain - Preliminary Pleural Fluid Body Fluid Culture - Preliminary 04/20/20 13:10 Gram Stain - Preliminary Bronchoalviolar Lavage - Right Bronchial Washings Culture - Preliminary 04/20/20 13:10 Acid Fast Bacilli Smear - Final Bronchoalviolar Lavage - Right Acid Fast Bacilli Culture - Preliminary 04/20/20 13:10 Fungal Culture - Preliminary Bronchoalviolar Lavage - Right 04/14/20 12:30 Blood Culture - Final Blood No Growth after 144 hours Assessment and Plan Plan: Assessment: 1 right lower lobe pneumonia/abscess formation as the patient has complex multiloculated collection in the right lower lobe could be related to an underlying abscess. The same time the patient bilateral pleural effusion and patient received bilateral thoracentesis and the fluid is a transudate for now. The patient has mediastinal lymphadenopathy involving the right paratracheal and subcarinal area, status post bronchoscopy with BAL and transbronchial needle aspirate biopsy of the right paratracheal and subcarinal lymph node, biopsies pending at this time. Patient is status post left and right thoracentesis, with negative cytologies, and negative pleural fluid cultures 2 acute hypoxic respiratory failure secondary to above, currently on 4 L of oxygen by nasal cannula 3 altered mental status recovered and the patient is back to normal 4 CHF with cardiomyopathy and an ejection fraction of 25-30% and moderate degree of pulmonary hypertension with a PA pressure of 46 5 diabetes mellitus type 2, poorly controlled on outpatient basis 6 post cholecystectomy and surgery was done on 04/08/2020 7 previous history of UTI 8 previous history of C. diff colitis and the patient is having extensive diarrhea and fecal management system was inserted. Rule out recurrent C. diff colitis specially the patient was taking antibiotics on outpatient basis 9 fibromyalgia 10 hypertension 11 hyperlipidemia 12 chronic pain syndrome with degenerative disc disease 13 former smoker 14 depression 15 opiates intake post Narcan treatment 16 leukocytosis and the patient's white cell count is improving 17 troponin leak 18 mild lactic acidosis, recovered Plan: Continue current medical treatment, awaiting results of the transbronchial biopsy of the right peritracheal sitter subcarinal lymph node, so far all cultures remain negative. Clinically patient is stable, improving, no altered mentation, she's been afebrile, continue same antibiotics right now. Follow-up CT chest was obtained and reviewed showing improvement in the appearance of fluid collection in the right middle lobe, and bilateral pleural effusions. Clinically stable, we'll continue to follow. I performed a history & physical examination of the patient and discussed their management with my nurse practitioner, Makenna Cheng. I reviewed the nurse practitioner's note and agree with the documented findings and plan of care. Lung sounds are positive for diminished breath sounds. The findings and the imp ression was discussed with the patient. I attest to the documentation by the nurse practitioner. Time with Patient: Less than 30
[2020-04-21 12:43] LABS: Glucose,Whole Blood 143 mg/dL (75-99)
[2020-04-21 17:24] LABS: Glucose,Whole Blood 100 mg/dL (75-99)
--- NOTE | 2020-04-21 18:13 | P.PN ---
Subjective Progress Note Date: 04/21/20 Principal diagnosis: Right lower lobe pneumonia/abscess formation with bilateral pleural effusions status post bilateral thoracentesis 04/21/2020 patient seen in follow-up on selective care unit. Patient is awake, denies any difficulty breathing Pleural fluid cytologies from the right and left thoracentesis have been negative, she is status post bronchoscopy with BAL, and transbronchial needle aspirate of the right peritracheal/subcarinal lymph node, biopsy is pending. CT chest this morning was obtained and showed right middle lobe infrahilar l oculated fluid collection mildly increased in size since 04/17/2020, and immediately adjacent inferior anterior multilocular fluid collection in the right middle lobe is mildly decreased small focus of loculated gas, 2 fluid collections may be contiguous in the findings likely represent abscess. There were moderate right and small left pleural effusions that decreased to previous CT chest. Objective - Vital Signs Vital signs: Vital Signs Temp 98.3 F 04/21/20 15:52 Pulse 86 04/21/20 15:52 Resp 16 04/21/20 15:52 BP 123/67 04/21/20 15:52 Pulse Ox 96 04/21/20 15:52 Intake & Output 04/20/20 04/21/20 04/21/20 18:59 06:59 18:59 Intake Total 1660 572 Output Total 2425 800 500 Balance -765 -800 72 Weight 57 kg 57 kg Intake: IV 1060 120 Piperacillin-Tazobactam 3 200 100 .375 gm In Sodium Chloride 0.9% 100 ml @ 25 mls/hr IVPB Q8H [facility] Rx#: [id number] Sodium Chloride 0.9% 1, 160 20 000 ml @ 20 mls/hr IV . Q24H [facility] Rx#:[id number] Vancomycin 1,250 mg In 500 Sodium Chloride 0.9% 250 ml @ 125 mls/hr IVPB Q8HR [facility] Rx#:[id number] Oral 600 452 Output: Urine 2425 800 500 Uretheral ([place]) 1600 Other: Voiding Method Indwelling Catheter Toilet # Voids 0 - Exam HEAD: Normocephalic/atraumatic. EYES: Normal reaction of pupils, equal size. Conjunctiva pink, sclera white. NOSE: Clear with pink turbinates. THROAT: No erythema or exudates. NECK: No masses, no JVD, no thyroid enlargement, no adenopathy. CHEST: No chest wall deformity. Symmetrical expansion. LUNGS: Equal air entry with no crackles, wheeze, rhonchi or dullness. CVS: Regular rate and rhythm, normal S1 and S2, no gallops, no murmurs, no rubs ABDOMEN: Soft, nontender. No hepatosplenomegaly, normal bowel sounds, no guarding or rigidity. EXTREMITIES: No clubbing, no edema, no cyanosis, 2+ pulses and upper and lower extremities. - Labs CBC & Chem 7: 04/19/20 06:27 04/21/20 09:21 Labs: Abnormal Lab Results - Last 24 Hours (Table) 04/20/20 04/21/20 04/21/20 Range/Units 20:45 02:17 09:21 Creatinine 0.40 L (0.52-1.04) mg/dL POC Glucose (mg/dL) 299 H 140 H (75-99) mg/dL 04/21/20 04/21/20 Range/Units 12:03 17:02 Creatinine (0.52-1.04) mg/dL POC Glucose (mg/dL) 143 H 100 H (75-99) mg/dL Microbiology - Last 24 Hours (Table) 04/20/20 13:10 Gram Stain - Preliminary Bronchoalviolar Lavage - Right Bronchial Washings Culture - Preliminary 04/18/20 09:40 Gram Stain - Preliminary Pleural Fluid Body Fluid Culture - Preliminary 04/20/20 13:10 Acid Fast Bacilli Smear - Final Bronchoalviolar Lavage - Right Acid Fast Bacilli Culture - Preliminary 04/20/20 13:10 Fungal Culture - Preliminary Bronchoalviolar Lavage - Right 04/14/20 12:30 Blood Culture - Final Blood No Growth after 144 hours Assessment and Plan Assessment: 1 right lower lobe pneumonia/abscess formation as the patient has complex multiloculated collection in the right lower lobe could be related to an underlying abscess. The same time the patient bilateral pleural effusion and patient received bilateral thoracentesis and the fluid is a transudate for now. The patient has mediastinal lymphadenopathy involving the right paratracheal and subcarinal area, status post bronchoscopy with BAL and transbronchial needle aspirate biopsy of the right paratracheal and subcarinal lymph node, biopsies pending at this time. Patient is status post left and right thoracentesis, with negative cytologies, and negative pleural fluid cultures 2 acute hypoxic respiratory failure secondary to above, currently on 4 L of oxygen by nasal cannula 3 altered mental status recovered and the patient is back to normal 4 CHF with cardiomyopathy and an ejection fraction of 25-30% and moderate degree of pulmonary hypertension with a PA pressure of 46 5 diabetes mellitus type 2, poorly controlled on outpatient basis 6 post cholecystectomy and surgery was done on 04/08/2020 7 previous history of UTI 8 previous history of C. diff colitis and the patient is having extensive diarrhea and fecal management system was inserted. Rule out recurrent C. diff colitis specially the patient was taking antibiotics on outpatient basis 9 fibromyalgia 10 hypertension 11 hyperlipidemia Continue current medical treatment, awaiting results of the transbronchial biopsy of the right peritracheal sitter subcarinal lymph node, so far all cultures remain negative. Clinically patient is stable, improving, no altered mentation, she's been afebrile, continue same antibiotics right now. Follow-up CT chest was obtained and reviewed showing improvement in the appearance of fluid collection in the right middle lobe, and bilateral pleural effusions. Clinically stable, we'll continue to follow.
[2020-04-21 20:18] LABS: Glucose,Whole Blood 203 mg/dL (75-99)
[2020-04-21] MEDS: LACTATED RINGERS 1,000 ML IV SCH (20:58)
[2020-04-21] MEDS: ATORVASTATIN 20 MG TAB PO SCH (21:15)
[2020-04-21] MEDS: TEMAZEPAM 15 MG CAP PO PRN (21:19)
[2020-04-22 01:58] LABS: Glucose,Whole Blood 254 mg/dL (75-99)
[2020-04-22] MEDS: HYDROcodone/APAP 10-325MG 1 EACH TAB PO PRN ×4 (03:18→21:27)
[2020-04-22] MEDS: PIPERACILLIN-TAZOBACTAM 3.375 GM in SODIUM CHLORIDE 0.9% 100 ML IVPB SCH ×3 (06:19→21:27)
[2020-04-22] MEDS ORDERED: VANCOMYCIN TROUGH DUE 1 EACH MISC MISCELLANE ONE (07:00)
[2020-04-22] MEDS: INSULIN ASPART (NovoLOG) 100 UNIT/ML VIAL SQ SCH ×8 (07:01→21:27)
[2020-04-22 07:07] LABS: Glucose,Whole Blood 192 mg/dL (75-99)
[2020-04-22] MEDS: INSULN ASP PRT/INSULIN ASPART 100 UNIT/ML 10 ML VIAL SQ SCH ×2 (07:07→17:40)
[2020-04-22 08:20] LABS: Basophils # (A) 0.1 k/uL (0-0.2); Basophils % (A) 1 %; Eosinophils # (A) 0.2 k/uL (0-0.7); Eosinophils % (A) 3 %; HCT 31.4 % (34.0-46.0); HGB 9.7 gm/dL (11.4-16.0); Hypochromasia Moderate; Lymphocytes # (A) 0.9 k/uL (1.0-4.8); Lymphocytes % (A) 11 %; MCH 28.2 pg (25.0-35.0); MCV 90.9 fL (80.0-100.0); Mean Platelet Volume 6.4; Monocytes # (A) 0.5 k/uL (0-1.0); Monocytes % (A) 6 %; Neutrophils # (A) 6.2 k/uL (1.3-7.7); Neutrophils % (A) 79 %; Platelet Count 411 k/uL (150-450); RBC 3.45 m/uL (3.80-5.40); RDW 14.9 % (11.5-15.5); WBC 7.9 k/uL (3.8-10.6)
[2020-04-22 08:28] LABS: African American GFR (CKD) >90 (>60 ml/min/1.73 sqM); Anion Gap 3 mmol/L; Blood Urea Nitrogen 9 mg/dL (7-17); Calcium 7.4 mg/dL (8.4-10.2); Carbon Dioxide 34 mmol/L (22-30); Chloride 98 mmol/L (98-107); Glucose 205 mg/dL (74-99); Non-African American GFR(CKD) >90 (>60 ml/min/1.73 sqM); Sodium 135 mmol/L (137-145)
[2020-04-22 08:34] LABS: Potassium 2.6 mmol/L (3.5-5.1)
[2020-04-22] MEDS: ASPIRIN 81 MG PO SCH (09:29)
[2020-04-22] MEDS: FUROSEMIDE 20 MG TAB PO SCH ×2 (09:29→15:43)
[2020-04-22] MEDS: lisinopriL 10 MG TAB PO SCH (09:29)
[2020-04-22] MEDS: METOPROLOL SUCCINATE (ER) 25 MG TAB.ER.24H PO SCH ×2 (09:29→21:26)
[2020-04-22] MEDS: GABAPENTIN 100 MG CAP PO SCH ×2 (09:29→21:26)
[2020-04-22] MEDS: PANTOPRAZOLE 40 MG TABLET PO SCH (09:29)
[2020-04-22] MEDS: DULoxetine HCL 30 MG CAPSULE.DR PO SCH (09:30)
[2020-04-22] MEDS: ENOXAPARIN 40 MG/0.4 ML SYRINGE SQ SCH (09:30)
[2020-04-22] MEDS: POTASSIUM CHLORIDE ER 20 MEQ TAB.ER PO SCH ×5 (09:30→21:26)
[2020-04-22] MEDS: VANCOMYCIN 750 MG in SODIUM CHLORIDE 0.9% 250 ML IVPB SCH ×2 (10:31→17:41)
--- NOTE | 2020-04-22 12:06 | P.PN ---
Subjective This is a pleasant 59-year-old female past medical history significant for hypertension, dyslipidemia and diabetes mellitus. She is seen and examined resting comfortably laying flat in bed in no acute distress. She denies worsening shortness of breath. She has no chest pain, dizziness or palpitations. Blood pressure 93/53 heart rate 83 afebrile maintaining oxygen saturation on nasal cannula. Laboratory data reviewed, WBC 7.9, hemoglobin 9.7, platelets 411, sodium 135, potassium 2.6, creatinine 0.35. Currently maintained on aspirin 81 mg daily, atorvastatin 20 mg daily, Lasix 20 mg twice a day, lisinopril 10 mg daily, Toprol 25 mg twice a day and potassium supplementation. CT of the chest reveals right middle lobe infrahilar loculated fluid collection mildly increased in size from previous exam. Immediately adjacent inferior anterior multiloculated fluid collection of the right middle lobe is mildly decreased in size. Moderate right and small left pleural effusion or decreased in size. GENERAL: Well-appearing, well-nourished and in no acute distress. NECK: Supple without JVD or thyromegaly. LUNGS: Breath sounds clear to auscultation bilaterally. Respiration equal and unlabored. No wheezes, rales or rhonchi. Diminished bilaterally. HEART: Regular rate and rhythm without murmurs, rubs or gallops. S1 and S2 he rafi. EXTREMITIES: Normal range of motion, no edema. No clubbing or cyanosis. Peripheral pulses intact. ASSESSMENT Acute systolic heart failure Hypokalemia Bilateral pleural effusions status post thoracentesis Pneumonia status post bronchoscopy Hypertension Dyslipidemia Diabetes mellitus PLAN Continue current medical regimen. Replace potassium per protocol. Nurse Practitioner note has been reviewed, I agree with a documented findings and plan of care. Patient was seen and examined. Objective - Vital Signs Vital signs: Vital Signs Temp 98.6 F 04/22/20 08:00 Pulse 83 04/22/20 08:00 Resp 16 04/22/20 08:00 BP 93/53 04/22/20 08:00 Pulse Ox 96 04/22/20 08:00 Intake & Output 04/21/20 04/22/20 04/22/20 18:59 06:59 18:59 Intake Total 572 240 120 Output Total 500 Balance 72 240 120 Weight 57 kg 53.4 kg Intake: IV 120 Piperacillin-Tazobactam 3 100 .375 gm In Sodium Chloride 0.9% 100 ml @ 25 mls/hr IVPB Q8H [facility] Rx#: [id number] Sodium Chloride 0.9% 1, 20 000 ml @ 20 mls/hr IV . Q24H [facility] Rx#:[id number] Oral 452 240 120 Output: Urine 500 Other: Voiding Method Toilet # Voids 0 1 # Bowel Movements 1 - Labs CBC & Chem 7: 04/22/20 07:50 04/22/20 07:50 Labs: Abnormal Lab Results - Last 24 Hours (Table) 04/21/20 04/21/20 04/21/20 Range/Units 12:03 17:02 20:17 RBC (3.80-5.40) m/uL Hgb (11.4-16.0) gm/dL Hct (34.0-46.0) % Lymphocytes # (1.0-4.8) k/uL Sodium (137-145) mmol/L Potassium (3.5-5.1) mmol/L Carbon Dioxide (22-30) mmol/L Creatinine (0.52-1.04) mg/dL Glucose (74-99) mg/dL POC Glucose (mg/dL) 143 H 100 H 203 H (75-99) mg/dL Calcium (8.4-10.2) mg/dL 04/22/20 04/22/20 04/22/20 Range/Units 01:55 07:00 07:50 RBC (3.80-5.40) m/uL Hgb (11.4-16.0) gm/dL Hct (34.0-46.0) % Lymphocytes # (1.0-4.8) k/uL Sodium 135 L (137-145) mmol/L Potassium 2.6 L* (3.5-5.1) mmol/L Carbon Dioxide 34 H (22-30) mmol/L Creatinine 0.35 L (0.52-1.04) mg/dL Glucose 205 H (74-99) mg/dL POC Glucose (mg/dL) 254 H 192 H (75-99) mg/dL Calcium 7.4 L (8.4-10.2) mg/dL 04/22/20 Range/Units 07:50 RBC 3.45 L (3.80-5.40) m/uL Hgb 9.7 L (11.4-16.0) gm/dL Hct 31.4 L (34.0-46.0) % Lymphocytes # 0.9 L (1.0-4.8) k/uL Sodium (137-145) mmol/L Potassium (3.5-5.1) mmol/L Carbon Dioxide (22-30) mmol/L Creatinine (0.52-1.04) mg/dL Glucose (74-99) mg/dL POC Glucose (mg/dL) (75-99) mg/dL Calcium (8.4-10.2) mg/dL Microbiology - Last 24 Hours (Table) 04/18/20 09:40 Gram Stain - Final Pleural Fluid Body Fluid Culture - Final 04/20/20 13:10 Gram Stain - Final Bronchoalviolar Lavage - Right Bronchial Washings Culture - Final
[2020-04-22 12:21] LABS: Glucose,Whole Blood 251 mg/dL (75-99)
--- NOTE | 2020-04-22 12:25 | P.PN ---
Subjective Progress Note Date: 04/22/20 Principal diagnosis: Right lower lobe pneumonia, abscess formation bilateral pleural effusion status post bilateral thoracentesis, bronchoscopy with BAL and biopsy This is a 59-year-old female patient was brought into the emergency department by caregiver unresponsive, lethargic, hypoglycemic. The patient was in the hospital last week and the patient underwent a laparoscopic cholecystectomy for an acute cholecystitis on 04/08/2020. Note that the patient presented to the [facility] because of symptoms of acute cholecystitis. She was having right upper quadrant pain. The pain was radiating to the back. She has some nausea. She had elevated white cell count of 18. She had low-grade fever. Ultrasound the gallbladder showed inflammation with fluid. LFTs were normal except for some mild elevation of alkaline phosphatase. The patient underwent the surgery and the patient was discharged home on Ceftin for a total of 5 days. She was also given incentive spirometer. Noted the chest x-ray prior to discharge showed a right-sided pleural effusion that was small. The patient came in today because of feeling lethargic and she was found to be quite lethargic and unresponsive by the caregiver. At the time of arrival the patient was found to be hypoglycemic. Her blood sugar was in the 40s. She was given 3 A of D50 based on 3 episodes of hypoglycemia that occurred since her being transferred to the hospital. The patient also had taken 2 tablets of 30 mg of morphine and was given to her by a friend. She was given Narcan in the emergency department. She became agitated and following that she was given Ativan and currently she is resting comfortably in bed. Based on her presentation, a CAT scan of the abdomen and pelvis was done and the CAT scan showed a large multi loculated collection in the right lower lobe of the lung with components measuring 4 x 3.3 and 6 x 4.4 cm in size respectively. There was internal air identified. Finding was consistent with a lung abscess. There was also evidence of small bowel thickening, nonspecific colitis and there was also evidence of a large right-sided pleural effusion. I saw the patient emergency department. She was still not fully communicating. She was lethargic. She would withdraw to painful additional 4 extremities. I was able to drain approximately 1.2 L of pleural fluid from the right lung. The pleural fluid was turbid dark yellowish in color. The patient tolerated the procedure well. Postprocedure chest x-ray showed no evidence of any pneumothorax. There is a persistent right lower lobe opacity with diminution of the pleural effusion. Note that the patient was having diarrhea and she has had previous history of C. diff colitis. A fecal management system was attached. The patient will be transferred to the intensive care unit. On 04/15/2020, the patient wide awake alert and communicating and following commands and answering questions. Marked improvement in his neurologic status compared to yesterday. She is requesting painkillers. She has body aches all over and she is requesting painkillers and this is her main concern. Meanwhile, the patient is still bilateral pneumonia. After performing a thoracentesis yesterday which do not to be a transudate, I performed a CAT scan of the chest and the CAT scan showed extensive bilateral pneumonic infiltrates that is worse on the right compared to the left. There is also better pleural effusion and small. No empyema based on the pleural fluid analysis. Infiltrates are quite extensive and there is some mild mucin lymphadenopathy consistent with inflammatory disease. There is dense right middle lobe consolidation. No lung abscess was visualized. Based on all this, and based on the concern of a hospital-acquired pneumonia, assess this patient a combination of Zosyn and vancomycin. The patient is not having any diarrhea at this point in time. Stool for C. diff was not collected. I think IV Flagyl can be discontinued. The white cell count is at 17.6. Function is stable with a creatinine of 0.2. No diarrhea. No abdominal pain. No nausea or vomiting. 04/16/2020, the patient is doing well. Awake and alert. Tolerating diet. No significant shortness of breath. Using incentive spirometer. Chest x-ray still showing extensive consolidation of the right lung along with some infiltration of the left lung base. As mentioned earlier, a transudate pleural fluid was aspirated from the right lung. Echocardiogram was done and the patient was found also to have cardiomyopathy with an ejection fraction on the left ventricle estimated to be around 25%. The patient remains on a combination of Zosyn and vancomycin. No chest pain. She is on 6 L of oxygen by nasal cannula pH is tolerating her diet. Her pain is under good control. No diarrhea for now. Blood cultures been negative. White cell count is down to 14.9. No altered mentation. 04/17/2020, I'm seeing the patient for a follow-up. The patient is doing well. The patient remains on accommodation of Zosyn and vancomycin. The patient is being treated for a right lung abscess/pneumonia. Nevertheless, the pleural effusion I think it's related to her underlying CHF as the patient was also found to have cardiomyopathy with impaired ejection fraction. I reviewed the CAT scan of the chest today. The patient was found to have a multi loculated collection in the right lower lobe which is felt to be related to an abscess. At the same time, the patient had recurrent and large bilateral pleural effusion right more than left along with some bilateral airspace consolidation and volume loss. Based on all this, I performed another thoracentesis of the patient's right lung and another 1.5 L of fluid was aspirated from the right lung. I intend to do a thoracentesis of the left lung. Noted earlier fluid was a transudate. I'm going to start the patient on IV Lasix in addition to the antibiotics. She is awake and alert. She is complaining of chronic pain as usual. The patient is currently on 6 L of oxygen by nasal cannula. Hemodynamically stable. She is afebrile. 04/18/2020 on seeing the patient for a follow-up. The patient remains on a combination of Zosyn and vancomycin. Celexa discomfort along her right lateral chest and upper quadrant area. No significant shortness of breath. No fever or chills. Repeat chest x-ray shows a consolidation in the right lower lobe and there is also left-sided pleural effusion. Note that a right-sided thoracentesis was done yesterday successfully and a total of 1.5 L of fluid was removed. I performed arthrocentesis on her on the left and I will around 8 50 mL of pleural fluid and this will be sent for analysis. Note that the fluid on the right with a transudate and the patient remains on IV Lasix and she has an adequate urine output. She remains on 6 L of oxygen by nasal cannula. She is using incentive spirometer. No altered mentation. She is tolerating her diet. Cultures of been negative. 04/19/2020 on seeing the patient for a follow-up. Noted the patient has undergone bilateral thoracentesis. Today's chest x-ray shows a right lower lobe consolidation and the residual bilateral pleural effusions are small. The patient remains on a combination of vancomycin and Zosyn. Note that the pleural fluid that was aspirated from the right lung was a transudate. The fluid was aspirated from the left lung also shows low protein and LDH consistent with a transudate. The patient is on Lasix and the patient is making adequate amount of urine output. She is established to have an underlying cardiomyopathy with impaired left ventricular ejection fraction of around 25%. The patient is also on Lasix 20 mg IV push every 12 hours. Cardiac rhythm is sinus. No fever. No chills. No significant leukocytosis. No nausea or vomiting. No emesis. Cu ltures of been all negative. I reviewed the CAT scan of the chest. I realize that the patient has a right paratracheal and subcarinal lymphadenopathy. There is also complex lesions within the right lung and the right lower lobe suggestive of abscess formation. I think is reasonable to do a bronchoscopy for airway inspection and at the same time attempted transbronchial needle aspirate of the mediastinal lymph nodes should there be any malignancy. The lymph nodes within the chest could be potentially inflammatory also as the patient extensive right lung pneumonia. On 04/20/2020 patient seen in follow-up on selective care unit, she is resting comfortably in bed, breathing comfortably, early on 2 L of oxygen pulse ox is 97%, hemodynamically stable, she has been afebrile, patient is status post left thoracentesis on 04/19/2020 with negative cytology, the pleural fluid cytology from the right thoracentesis from 04/17/2020 was also negative. Total fluid analysis of the right sided pleural fluid showed transudate. Pleural fluid cultures have shown no growth. Empiric antiemetic coverage is in the form of Zosyn and vancomycin. She has been nothing by mouth after midnight for a bro nchoscopy with BAL and possible biopsies today. He has had no chest pain, no cough or congestion, On 04/21/2020 patient seen in follow-up on selective care unit. Patient is awake, denies any difficulty breathing, she isn't liters of oxygen pulse ox of 90%, she's had no fever or chills, her pleural fluid cytologies from the right and left thoracentesis have been negative, she is status post bronchoscopy with BAL, and transbronchial needle aspirate of the right peritracheal/subcarinal lymph node, biopsy is pending. CT chest this morning was obtained and showed right middle lobe infrahilar loculated fluid collection mildly increased in size since 04/17/2020, and immediately adjacent inferior anterior multilocular fluid collection in the right middle lobe is mildly decreased small focus of loculated gas, 2 fluid collections may be contiguous in the findings likely represent abscess. There were moderate right and small left pleural effusions that decreased to previous CT chest. Clinically patient has remained stable. No hemoptysis. The patient is seen today 04/22/2020 in follow-up on the selective care unit. She remains awake and alert in no acute distress. She is maintaining good O2 saturations in the 90s on 2 L/m per nasal cannula. She's been afebrile. Bronchial alveolar lavage and wash of the right lung reveals no growth. Biopsies negative for malignancy. White count 7.9. Hemoglobin 9.7. Sodium 135. Potassium 2.6. Creatinine 0.35. Currently on vancomycin and Zosyn. Her pain is better controlled today. Objective - Vital Signs Vital signs: Vital Signs Temp 98.6 F 04/22/20 08:00 Pulse 83 04/22/20 08:00 Resp 16 04/22/20 08:00 BP 93/53 04/22/20 08:00 Pulse Ox 96 04/22/20 08:00 Intake & Output 04/21/20 04/22/20 04/22/20 18:59 06:59 18:59 Intake Total 572 240 120 Output Total 500 Balance 72 240 120 Weight 57 kg 53.4 kg Intake: IV 120 Piperacillin-Tazobactam 3 100 .375 gm In Sodium Chloride 0.9% 100 ml @ 25 mls/hr IVPB Q8H [facility] Rx#: [id number] Sodium Chloride 0.9% 1, 20 000 ml @ 20 mls/hr IV . Q24H [facility] Rx#:[id number] Oral 452 240 120 Output: Urine 500 Other: Voiding Method Toilet # Voids 0 1 # Bowel Movements 1 - Exam GENERAL EXAM: Alert, very pleasant, 59-year-old female patient, on 2 L of oxygen a pulse ox of 98% comfortable in no apparent distress. HEAD: Normocephalic/atraumatic. EYES: Normal reaction of pupils, equal size. Conjunctiva pink, sclera white. NOSE: Clear with pink turbinates. THROAT: No erythema or exudates. NECK: No masses, no JVD, no thyroid enlargement, no adenopathy. CHEST: No chest wall deformity. Symmetrical expansion. LUNGS: Equal air entry with bilateral scattered rhonchi, more so on the right CVS: Regular rate and rhythm, normal S1 and S2, no gallops, no murmurs, no rubs ABDOMEN: Soft, nontender. No hepatosplenomegaly, normal bowel sounds, no guarding or rigidity. EXTREMITIES: No clubbing, no edema, no cyanosis, 2+ pulses and upper and lower extremities. MUSCULOSKELETAL: Muscle strength and tone normal. SPINE: No scoliosis or deformity SKIN: No rashes CENTRAL NERVOUS SYSTEM: No focal deficits, tone is normal in all 4 extremities. PSYCHIATRIC: Alert and oriented -3. Appropriate affect. Intact judgment and insight. - Labs CBC & Chem 7: 04/22/20 07:50 04/22/20 07:50 Labs: Abnormal Lab Results - Last 24 Hours (Table) 04/21/20 04/21/20 04/21/20 Range/Units 12:03 17:02 20:17 RBC (3.80-5.40) m/uL Hgb (11.4-16.0) gm/dL Hct (34.0-46.0) % Lymphocytes # (1.0-4.8) k/uL Sodium (137-145) mmol/L Potassium (3.5-5.1) mmol/L Carbon Dioxide (22-30) mmol/L Creatinine (0.52-1.04) mg/dL Glucose (74-99) mg/dL POC Glucose (mg/dL) 143 H 100 H 203 H (75-99) mg/dL Calcium (8.4-10.2) mg/dL 04/22/20 04/22/20 04/22/20 Range/Units 01:55 07:00 07:50 RBC (3.80-5.40) m/uL Hgb (11.4-16.0) gm/dL Hct (34.0-46.0) % Lymphocytes # (1.0-4.8) k/uL Sodium 135 L (137-145) mmol/L Potassium 2.6 L* (3.5-5.1) mmol/L Carbon Dioxide 34 H (22-30) mmol/L Creatinine 0.35 L (0.52-1.04) mg/dL Glucose 205 H (74-99) mg/dL POC Glucose (mg/dL) 254 H 192 H (75-99) mg/dL Calcium 7.4 L (8.4-10.2) mg/dL 04/22/20 Range/Units 07:50 RBC 3.45 L (3.80-5.40) m/uL Hgb 9.7 L (11.4-16.0) gm/dL Hct 31.4 L (34.0-46.0) % Lymphocytes # 0.9 L (1.0-4.8) k/uL Sodium (137-145) mmol/L Potassium (3.5-5.1) mmol/L Carbon Dioxide (22-30) mmol/L Creatinine (0.52-1.04) mg/dL Glucose (74-99) mg/dL POC Glucose (mg/dL) (75-99) mg/dL Calcium (8.4-10.2) mg/dL Microbiology - Last 24 Hours (Table) 04/18/20 09:40 Gram Stain - Final Pleural Fluid Body Fluid Culture - Final 04/20/20 13:10 Gram Stain - Final Bronchoalviolar Lavage - Right Bronchial Washings Culture - Final Assessment and Plan Assessment: 1 right lower lobe pneumonia/abscess formation as the patient has complex multiloculated collection in the right lower lobe could be related to an underlying abscess. The same time the patient bilateral pleural effusion and patient received bilateral thoracentesis and the fluid is a transudate for now. The patient has mediastinal lymphadenopathy involving the right paratracheal and subcarinal area, status post bronchoscopy with BAL and transbronchial needle aspirate biopsy of the right paratracheal and subcarinal lymph node, biopsies negative for malignancy. Cultures reveal no growth. Patient is status post left and right thoracentesis, with negative cytologies, and negative pleural fluid cultures 2 acute hypoxic respiratory failure secondary to above, currently on 2 L of oxygen by nasal cannula 3 altered mental status recovered and the patient is back to normal 4 CHF with cardiomyopathy and an ejection fraction of 25-30% and moderate degree of pulmonary hypertension with a PA pressure of 46 5 diabetes mellitus type 2, poorly controlled on outpatient basis 6 post cholecystectomy and surgery was done on 04/08/2020 7 previous history of UTI 8 previous history of C. diff colitis and the patient is having extensive diarrhea and fecal management system was inserted. Rule out recurrent C. diff colitis specially the patient was taking antibiotics on outpatient basis 9 fibromyalgia 10 hypertension 11 hyperlipidemia 12 chronic pain syndrome with degenerative disc disease 13 former smoker 14 depression 15 opiates intake post Narcan treatment 16 leukocytosis and the patient's white cell count is improving 17 troponin leak 18 mild lactic acidosis, recovered Plan: The patient was seen and evaluated by Dr. Ram CAT scan and labs reviewed The patient is improving clinically Continue antibiotics in the form of vancomycin and Zosyn Encourage the increased use of the incentive spirometer Increase activity as tolerated We'll continue to follow and make further recommendations based on her clinical status I, the cosigning physician, performed a history & physical examination of the patient. Lungs sounds with bilateral scattered rhonchi right greater than left. Maintaining good O2 saturations in the 90s on 2 L/m per nasal cannula. I discussed the assessment and plan of care with my nurse practitioner, Raegan Olivas. I attest to the above note as dictated by her.
--- NOTE | 2020-04-22 14:53 | XR ---
EXAMINATION TYPE: XR elbow complete RT DATE OF EXAM: 04/22/2020 CLINICAL HISTORY: Fall injury with pain TECHNIQUE: Frontal, lateral and oblique images of the left elbow are obtained. COMPARISON: None FINDINGS: Osseous structures are demineralized. There is no acute fracture/dislocation evident in th e left elbow. No abnormal fat pad signs are seen. Small phlebolith ulnar aspect proximal soft tissue noted. IMPRESSION: There is no acute fracture or dislocation in the left elbow.
--- NOTE | 2020-04-22 15:23 | CT ---
EXAMINATION TYPE: CT brain wo con DATE OF EXAM: 04/22/2020 HISTORY: Fall injury with headache. CT DLP: 1109.4 mGycm. Automated Exposure Control for Dose Reduction was Utilized. TECHNIQUE: CT scan of the head is performed without contrast. COMPARISON: CT brain April 14, 2020.. FINDINGS: There is no acute intracranial hemorrhage or midline shift identified. There is diffuse v entricular and sulcal prominence consistent with mild cerebral atrophy greatest over the bilateral fr ontal lobes redemonstrated. Johnson-white matter differentiation fairly well preserved. The calvarium is intact. The globes are intact and the visualized sinuses are clear. IMPRESSION: No acute intracranial hemorrhage or midline shift. There is mild diffuse cerebral atrop hy redemonstrated. No significant change from prior.
[2020-04-22] MEDS: VANCOMYCIN 1,000 MG in SODIUM CHLORIDE 0.9% 250 ML IVPB SCH (15:42)
[2020-04-22 16:56] LABS: Glucose,Whole Blood 190 mg/dL (75-99)
--- NOTE | 2020-04-22 17:27 | P.PN ---
Subjective Progress Note Date: 04/22/20 Principal diagnosis: Right lower lobe pneumonia/abscess formation with bilateral pleural effusions status post bilateral thoracentesis 04/21/2020 patient seen in follow-up on selective care unit. Patient is awake, denies any difficulty breathing Pleural fluid cytologies from the right and left thoracentesis have been negative, she is status post bronchoscopy with BAL, and transbronchial needle aspirate of the right peritracheal/subcarinal lymph node, biopsy is pending. CT chest this morning was obtained and showed right middle lobe infrahilar l oculated fluid collection mildly increased in size since 04/17/2020, and immediately adjacent inferior anterior multilocular fluid collection in the right middle lobe is mildly decreased small focus of loculated gas, 2 fluid collections may be contiguous in the findings likely represent abscess. There were moderate right and small left pleural effusions that decreased to previous CT chest. 04/22/2020 Patient is seen and evaluated in follow-up on the selective care unit. Patient had an episode of fall and claimed to have hit her head without any loss of consciousness; She remains awake and alert in no acute distress. She is maintaining good O2 saturations in the 90s on 2 L/m per nasal cannula. She's been afebrile. Bronchial alveolar lavage and wash of the right lung reveals no growth. Biopsies negative for malignancy. White count 7.9. Hemoglobin 9.7. S odium 135. Potassium 2.6. Creatinine 0.35. Currently on vancomycin and Zosyn. Her pain is better controlled today. Stat CT of the head is done to follow-up on fall which is unremarkable for any acute changes Objective - Vital Signs Vital signs: Vital Signs Temp 98.5 F 04/22/20 12:00 Pulse 79 04/22/20 12:00 Resp 16 04/22/20 12:00 BP 93/51 04/22/20 12:00 Pulse Ox 96 04/22/20 08:00 Intake & Output 04/21/20 04/22/20 04/22/20 18:59 06:59 18:59 Intake Total 572 240 240 Output Total 500 Balance 72 240 240 Weight 57 kg 53.4 kg Intake: IV 120 Piperacillin-Tazobactam 3 100 .375 gm In Sodium Chloride 0.9% 100 ml @ 25 mls/hr IVPB Q8H [facility] Rx#: [id number] Sodium Chloride 0.9% 1, 20 000 ml @ 20 mls/hr IV . Q24H [facility] Rx#:[id number] Oral 452 240 240 Output: Urine 500 Other: Voiding Method Toilet # Voids 0 1 # Bowel Movements 1 - Exam HEAD: Normocephalic/atraumatic. EYES: Normal reaction of pupils, equal size. Conjunctiva pink, sclera white. NOSE: Clear with pink turbinates. THROAT: No erythema or exudates. NECK: No masses, no JVD, no thyroid enlargement, no adenopathy. CHEST: No chest wall deformity. Symmetrical expansion. LUNGS: Equal air entry with no crackles, wheeze, rhonchi or dullness. CVS: Regular rate and rhythm, normal S1 and S2, no gallops, no murmurs, no rubs ABDOMEN: Soft, nontender. No hepatosplenomegaly, normal bowel sounds, no guarding or rigidity. EXTREMITIES: No clubbing, no edema, no cyanosis, 2+ pulses and upper and lower extremities. - Labs CBC & Chem 7: 04/22/20 07:50 04/22/20 16:50 Labs: Abnormal Lab Results - Last 24 Hours (Table) 04/21/20 04/21/20 04/22/20 Range/Units 17:02 20:17 01:55 RBC (3.80-5.40) m/uL Hgb (11.4-16.0) gm/dL Hct (34.0-46.0) % Lymphocytes # (1.0-4.8) k/uL Sodium (137-145) mmol/L Potassium (3.5-5.1) mmol/L Carbon Dioxide (22-30) mmol/L Creatinine (0.52-1.04) mg/dL Glucose (74-99) mg/dL POC Glucose (mg/dL) 100 H 203 H 254 H (75-99) mg/dL Calcium (8.4-10.2) mg/dL 04/22/20 04/22/20 04/22/20 Range/Units 07:00 07:50 07:50 RBC 3.45 L (3.80-5.40) m/uL Hgb 9.7 L (11.4-16.0) gm/dL Hct 31.4 L (34.0-46.0) % Lymphocytes # 0.9 L (1.0-4.8) k/uL Sodium 135 L (137-145) mmol/L Potassium 2.6 L* (3.5-5.1) mmol/L Carbon Dioxide 34 H (22-30) mmol/L Creatinine 0.35 L (0.52-1.04) mg/dL Glucose 205 H (74-99) mg/dL POC Glucose (mg/dL) 192 H (75-99) mg/dL Calcium 7.4 L (8.4-10.2) mg/dL 04/22/20 Range/Units 12:20 RBC (3.80-5.40) m/uL Hgb (11.4-16.0) gm/dL Hct (34.0-46.0) % Lymphocytes # (1.0-4.8) k/uL Sodium (137-145) mmol/L Potassium (3.5-5.1) mmol/L Carbon Dioxide (22-30) mmol/L Creatinine (0.52-1.04) mg/dL Glucose (74-99) mg/dL POC Glucose (mg/dL) 251 H (75-99) mg/dL Calcium (8.4-10.2) mg/dL Microbiology - Last 24 Hours (Table) 04/18/20 09:40 Gram Stain - Final Pleural Fluid Body Fluid Culture - Final 04/20/20 13:10 Gram Stain - Final Bronchoalviolar Lavage - Right Bronchial Washings Culture - Final Assessment and Plan Assessment: 1 right lower lobe pneumonia/abscess formation as the patient has complex multiloculated collection in the right lower lobe could be related to an underlying abscess. The same time the patient bilateral pleural effusion and patient received bilateral thoracentesis and the fluid is a transudate for now. The patient has mediastinal lymphadenopathy involving the right paratracheal and subcarinal area, status post bronchoscopy with BAL and transbronchial needle aspirate biopsy of the right paratracheal and subcarinal lymph node, biopsies pending at this time. Patient is status post left and right thoracentesis, with negative cytologies, and negative pleural fluid cultures 2 acute hypoxic respiratory failure secondary to above, currently on 4 L of oxygen by nasal cannula 3 altered mental status recovered and the patient is back to normal 4 CHF with cardiomyopathy and an ejection fraction of 25-30% and moderate degree of pulmonary hypertension with a PA pressure of 46 5 diabetes mellitus type 2, poorly controlled on outpatient basis 6 post cholecystectomy and surgery was done on 04/08/2020 7 previous history of UTI 8 previous history of C. diff colitis and the patient is having extensive diarrhea and fecal management system was inserted. Rule out recurrent C. diff colitis specially the patient was taking antibiotics on outpatient basis 9 fibromyalgia 10 hypertension 11 hyperlipidemia Continue current medical treatment, awaiting results of the transbronchial biopsy of the right peritracheal sitter subcarinal lymph node, so far all cultures remain negative. Clinically patient is stable, improving, no altered mentation, she's been afebrile, continue same antibiotics right now. Follow-up CT chest was obtained and reviewed showing improvement in the appearance of fluid collection in the right middle lobe, and bilateral pleural effusions. Clinically stable, we'll continue to follow.
[2020-04-22] MEDS: LACTATED RINGERS 1,000 ML IV SCH (20:06)
[2020-04-22 21:00] LABS: Glucose,Whole Blood 214 mg/dL (75-99)
[2020-04-22] MEDS: ATORVASTATIN 20 MG TAB PO SCH (21:26)
[2020-04-22] MEDS: TEMAZEPAM 15 MG CAP PO PRN (21:26)
[2020-04-22] MEDS: SODIUM CHLORIDE 0.9% 1,000 ML IV SCH (22:47)
[2020-04-23] MEDS: VANCOMYCIN 750 MG in SODIUM CHLORIDE 0.9% 250 ML IVPB SCH ×2 (01:52→10:46)
[2020-04-23 02:01] LABS: Glucose,Whole Blood 170 mg/dL (75-99)
[2020-04-23] MEDS: HYDROcodone/APAP 10-325MG 1 EACH TAB PO PRN ×4 (03:24→21:56)
[2020-04-23] MEDS: PIPERACILLIN-TAZOBACTAM 3.375 GM in SODIUM CHLORIDE 0.9% 100 ML IVPB SCH ×3 (06:19→21:00)
[2020-04-23 07:04] LABS: Glucose,Whole Blood 99 mg/dL (75-99)
[2020-04-23] MEDS: INSULN ASP PRT/INSULIN ASPART 100 UNIT/ML 10 ML VIAL SQ SCH ×2 (07:09→18:27)
[2020-04-23] MEDS: INSULIN ASPART (NovoLOG) 100 UNIT/ML VIAL SQ SCH ×8 (07:09→21:00)
[2020-04-23 07:25] LABS: African American GFR (CKD) >90 (>60 ml/min/1.73 sqM); Anion Gap 1 mmol/L; Blood Urea Nitrogen 13 mg/dL (7-17); Calcium 7.5 mg/dL (8.4-10.2); Carbon Dioxide 36 mmol/L (22-30); Chloride 102 mmol/L (98-107); Glucose 58 mg/dL (74-99); Non-African American GFR(CKD) >90 (>60 ml/min/1.73 sqM); Potassium 3.7 mmol/L (3.5-5.1); Sodium 139 mmol/L (137-145)
[2020-04-23 07:36] LABS: Basophils # (A) 0.1 k/uL (0-0.2); Basophils % (A) 1 %; Eosinophils # (A) 0.4 k/uL (0-0.7); Eosinophils % (A) 5 %; HCT 29.8 % (34.0-46.0); HGB 9.2 gm/dL (11.4-16.0); Hypochromasia Marked; Lymphocytes # (A) 1.6 k/uL (1.0-4.8); Lymphocytes % (A) 20 %; MCH 28.3 pg (25.0-35.0); MCHC 30.8 g/dL (31.0-37.0); MCV 91.6 fL (80.0-100.0); Mean Platelet Volume 6.7; Monocytes # (A) 0.7 k/uL (0-1.0); Monocytes % (A) 9 %; Neutrophils % (A) 64 %; Platelet Count 408 k/uL (150-450); RBC 3.25 m/uL (3.80-5.40); RDW 14.8 % (11.5-15.5); WBC 7.8 k/uL (3.8-10.6)
[2020-04-23] MEDS: ASPIRIN 81 MG PO SCH (09:59)
[2020-04-23] MEDS: ENOXAPARIN 40 MG/0.4 ML SYRINGE SQ SCH (09:59)
[2020-04-23] MEDS: lisinopriL 10 MG TAB PO SCH (09:59)
[2020-04-23] MEDS: PANTOPRAZOLE 40 MG TABLET PO SCH (09:59)
[2020-04-23] MEDS: METOPROLOL SUCCINATE (ER) 25 MG TAB.ER.24H PO SCH ×2 (09:59→20:59)
[2020-04-23] MEDS: DULoxetine HCL 30 MG CAPSULE.DR PO SCH (10:00)
[2020-04-23] MEDS: FUROSEMIDE 20 MG TAB PO SCH ×2 (10:00→15:38)
[2020-04-23] MEDS: GABAPENTIN 100 MG CAP PO SCH ×2 (10:00→20:59)
--- NOTE | 2020-04-23 11:51 | P.PN ---
Subjective This is a pleasant 59-year-old female past medical history significant for hypertension, dyslipidemia and diabetes mellitus. She is seen and examined resting comfortably laying flat in bed in no acute distress. She denies chest pain, shortness of breath, dizziness or palpitations. Blood pressure 99/67 heart rate 87 afebrile maintaining oxygen saturation on room air. Laboratory data reviewed, was WBC 7.8, hemoglobin 9.2, platelets 408, sodium 139, potassium 3.7, creatinine 0.45. Currently maintained on aspirin 81 mg daily, atorvastatin 20 mg daily, Lasix 20 mg twice a day, lisinopril 10 mg daily and Toprol 25 mg twice a day. Telemetry tracings have been unremarkable. GENERAL: Well-appearing, well-nourished and in no acute distress. NECK: Supple without JVD or thyromegaly. LUNGS: Breath sounds clear to auscultation bilaterally. Respiration equal and unlabored. No wheezes, rales or rhonchi. Diminished bilaterally. HEART: Regular rate and rhythm without murmurs, rubs or gallops. S1 and S2 heard. EXTREMITIES: Normal range of motion, no edema. No clubbing or cyanosis. Peripheral pulses intact. ASSESSMENT Acute systolic heart failure Hypokalemia Bilateral pleural effusions status post thoracentesis Pneumonia status post bronchoscopy Hypertension Dyslipidemia Diabetes mellitus PLAN Decrease lisinopril to 5 mg daily. Ongoing medical management. Nurse Practitioner note has been reviewed, I agree with a documented findings and plan of care. Patient was seen and examined. Objective - Vital Signs Vital signs: Vital Signs Temp 98.5 F 04/23/20 08:00 Pulse 87 04/23/20 08:00 Resp 16 04/23/20 08:00 BP 99/67 04/23/20 08:00 Pulse Ox 93 L 04/23/20 08:00 Intake & Output 04/22/20 04/23/20 04/23/20 18:59 06:59 18:59 Intake Total 720 720 480 Balance 720 720 480 Weight 54 kg Intake: Oral 720 720 480 Other: # Voids 1 - Labs CBC & Chem 7: 04/23/20 06:30 04/23/20 06:30 Labs: Abnormal Lab Results - Last 24 Hours (Table) 04/22/20 04/22/20 04/22/20 Range/Units 12:20 16:50 16:55 RBC (3.80-5.40) m/uL Hgb (11.4-16.0) gm/dL Hct (34.0-46.0) % MCHC (31.0-37.0) g/dL Potassium 3.2 L (3.5-5.1) mmol/L Carbon Dioxide (22-30) mmol/L Creatinine (0.52-1.04) mg/dL Glucose (74-99) mg/dL POC Glucose (mg/dL) 251 H 190 H (75-99) mg/dL Calcium (8.4-10.2) mg/dL 04/22/20 04/23/20 04/23/20 Range/Units 20:59 01:59 06:30 RBC 3.25 L (3.80-5.40) m/uL Hgb 9.2 L (11.4-16.0) gm/dL Hct 29.8 L (34.0-46.0) % MCHC 30.8 L (31.0-37.0) g/dL Potassium (3.5-5.1) mmol/L Carbon Dioxide (22-30) mmol/L Creatinine (0.52-1.04) mg/dL Glucose (74-99) mg/dL POC Glucose (mg/dL) 214 H 170 H (75-99) mg/dL Calcium (8.4-10.2) mg/dL 04/23/20 Range/Units 06:30 RBC (3.80-5.40) m/uL Hgb (11.4-16.0) gm/dL Hct (34.0-46.0) % MCHC (31.0-37.0) g/dL Potassium (3.5-5.1) mmol/L Carbon Dioxide 36 H (22-30) mmol/L Creatinine 0.45 L (0.52-1.04) mg/dL Glucose 58 L (74-99) mg/dL POC Glucose (mg/dL) (75-99) mg/dL Calcium 7.5 L (8.4-10.2) mg/dL Microbiology - Last 24 Hours (Table) 04/18/20 09:40 Gram Stain - Final Pleural Fluid Body Fluid Culture - Final 04/20/20 13:10 Gram Stain - Final Bronchoalviolar Lavage - Right Bronchial Washings Culture - Final
[2020-04-23 12:20] LABS: Glucose,Whole Blood 190 mg/dL (75-99)
--- NOTE | 2020-04-23 13:13 | P.PN ---
Subjective Progress Note Date: 04/23/20 Principal diagnosis: Right lower lobe pneumonia, abscess formation bilateral pleural effusion status post bilateral thoracentesis, bronchoscopy with BAL and biopsy This is a 59-year-old female patient was brought into the emergency department by caregiver unresponsive, lethargic, hypoglycemic. The patient was in the hospital last week and the patient underwent a laparoscopic cholecystectomy for an acute cholecystitis on 04/08/2020. Note that the patient presented to the [facility] because of symptoms of acute cholecystitis. She was having right upper quadrant pain. The pain was radiating to the back. She has some nausea. She had elevated white cell count of 18. She had low-grade fever. Ultrasound the gallbladder showed inflammation with fluid. LFTs were normal except for some mild elevation of alkaline phosphatase. The patient underwent the surgery and the patient was discharged home on Ceftin for a total of 5 days. She was also given incentive spirometer. Noted the chest x-ray prior to discharge showed a right-sided pleural effusion that was small. The patient came in today because of feeling lethargic and she was found to be quite lethargic and unresponsive by the caregiver. At the time of arrival the patient was found to be hypoglycemic. Her blood sugar was in the 40s. She was given 3 A of D50 based on 3 episodes of hypoglycemia that occurred since her being transferred to the hospital. The patient also had taken 2 tablets of 30 mg of morphine and was given to her by a friend. She was given Narcan in the emergency department. She became agitated and following that she was given Ativan and currently she is resting comfortably in bed. Based on her presentation, a CAT scan of the abdomen and pelvis was done and the CAT scan showed a large multi loculated collection in the right lower lobe of the lung with components measuring 4 x 3.3 and 6 x 4.4 cm in size respectively. There was internal air identified. Finding was consistent with a lung abscess. There was also evidence of small bowel thickening, nonspecific colitis and there was also evidence of a large right-sided pleural effusion. I saw the patient emergency department. She was still not fully communicating. She was lethargic. She would withdraw to painful additional 4 extremities. I was able to drain approximately 1.2 L of pleural fluid from the right lung. The pleural fluid was turbid dark yellowish in color. The patient tolerated the procedure well. Postprocedure chest x-ray showed no evidence of any pneumothorax. There is a persistent right lower lobe opacity with diminution of the pleural effusion. Note that the patient was having diarrhea and she has had previous history of C. diff colitis. A fecal management system was attached. The patient will be transferred to the intensive care unit. On 04/15/2020, the patient wide awake alert and communicating and following commands and answering questions. Marked improvement in his neurologic status compared to yesterday. She is requesting painkillers. She has body aches all over and she is requesting painkillers and this is her main concern. Meanwhile, the patient is still bilateral pneumonia. After performing a thoracentesis yesterday which do not to be a transudate, I performed a CAT scan of the chest and the CAT scan showed extensive bilateral pneumonic infiltrates that is worse on the right compared to the left. There is also better pleural effusion and small. No empyema based on the pleural fluid analysis. Infiltrates are quite extensive and there is some mild mucin lymphadenopathy consistent with inflammatory disease. There is dense right middle lobe consolidation. No lung abscess was visualized. Based on all this, and based on the concern of a hospital-acquired pneumonia, assess this patient a combination of Zosyn and vancomycin. The patient is not having any diarrhea at this point in time. Stool for C. diff was not collected. I think IV Flagyl can be discontinued. The white cell count is at 17.6. Function is stable with a creatinine of 0.2. No diarrhea. No abdominal pain. No nausea or vomiting. 04/16/2020, the patient is doing well. Awake and alert. Tolerating diet. No significant shortness of breath. Using incentive spirometer. Chest x-ray still showing extensive consolidation of the right lung along with some infiltration of the left lung base. As mentioned earlier, a transudate pleural fluid was aspirated from the right lung. Echocardiogram was done and the patient was found also to have cardiomyopathy with an ejection fraction on the left ventricle estimated to be around 25%. The patient remains on a combination of Zosyn and vancomycin. No chest pain. She is on 6 L of oxygen by nasal cannula pH is tolerating her diet. Her pain is under good control. No diarrhea for now. Blood cultures been negative. White cell count is down to 14.9. No altered mentation. 04/17/2020, I'm seeing the patient for a follow-up. The patient is doing well. The patient remains on accommodation of Zosyn and vancomycin. The patient is being treated for a right lung abscess/pneumonia. Nevertheless, the pleural effusion I think it's related to her underlying CHF as the patient was also found to have cardiomyopathy with impaired ejection fraction. I reviewed the CAT scan of the chest today. The patient was found to have a multi loculated collection in the right lower lobe which is felt to be related to an abscess. At the same time, the patient had recurrent and large bilateral pleural effusion right more than left along with some bilateral airspace consolidation and volume loss. Based on all this, I performed another thoracentesis of the patient's right lung and another 1.5 L of fluid was aspirated from the right lung. I intend to do a thoracentesis of the left lung. Noted earlier fluid was a transudate. I'm going to start the patient on IV Lasix in addition to the antibiotics. She is awake and alert. She is complaining of chronic pain as usual. The patient is currently on 6 L of oxygen by nasal cannula. Hemodynamically stable. She is afebrile. 04/18/2020 on seeing the patient for a follow-up. The patient remains on a combination of Zosyn and vancomycin. Celexa discomfort along her right lateral chest and upper quadrant area. No significant shortness of breath. No fever or chills. Repeat chest x-ray shows a consolidation in the right lower lobe and there is also left-sided pleural effusion. Note that a right-sided thoracentesis was done yesterday successfully and a total of 1.5 L of fluid was removed. I performed arthrocentesis on her on the left and I will around 8 50 mL of pleural fluid and this will be sent for analysis. Note that the fluid on the right with a transudate and the patient remains on IV Lasix and she has an adequate urine output. She remains on 6 L of oxygen by nasal cannula. She is using incentive spirometer. No altered mentation. She is tolerating her diet. Cultures of been negative. 04/19/2020 on seeing the patient for a follow-up. Noted the patient has undergone bilateral thoracentesis. Today's chest x-ray shows a right lower lobe consolidation and the residual bilateral pleural effusions are small. The patient remains on a combination of vancomycin and Zosyn. Note that the pleural fluid that was aspirated from the right lung was a transudate. The fluid was aspirated from the left lung also shows low protein and LDH consistent with a transudate. The patient is on Lasix and the patient is making adequate amount of urine output. She is established to have an underlying cardiomyopathy with impaired left ventricular ejection fraction of around 25%. The patient is also on Lasix 20 mg IV push every 12 hours. Cardiac rhythm is sinus. No fever. No chills. No significant leukocytosis. No nausea or vomiting. No emesis. Cu ltures of been all negative. I reviewed the CAT scan of the chest. I realize that the patient has a right paratracheal and subcarinal lymphadenopathy. There is also complex lesions within the right lung and the right lower lobe suggestive of abscess formation. I think is reasonable to do a bronchoscopy for airway inspection and at the same time attempted transbronchial needle aspirate of the mediastinal lymph nodes should there be any malignancy. The lymph nodes within the chest could be potentially inflammatory also as the patient extensive right lung pneumonia. On 04/20/2020 patient seen in follow-up on selective care unit, she is resting comfortably in bed, breathing comfortably, early on 2 L of oxygen pulse ox is 97%, hemodynamically stable, she has been afebrile, patient is status post left thoracentesis on 04/19/2020 with negative cytology, the pleural fluid cytology from the right thoracentesis from 04/17/2020 was also negative. Total fluid analysis of the right sided pleural fluid showed transudate. Pleural fluid cultures have shown no growth. Empiric antiemetic coverage is in the form of Zosyn and vancomycin. She has been nothing by mouth after midnight for a bro nchoscopy with BAL and possible biopsies today. He has had no chest pain, no cough or congestion, On 04/21/2020 patient seen in follow-up on selective care unit. Patient is awake, denies any difficulty breathing, she isn't liters of oxygen pulse ox of 90%, she's had no fever or chills, her pleural fluid cytologies from the right and left thoracentesis have been negative, she is status post bronchoscopy with BAL, and transbronchial needle aspirate of the right peritracheal/subcarinal lymph node, biopsy is pending. CT chest this morning was obtained and showed right middle lobe infrahilar loculated fluid collection mildly increased in size since 04/17/2020, and immediately adjacent inferior anterior multilocular fluid collection in the right middle lobe is mildly decreased small focus of loculated gas, 2 fluid collections may be contiguous in the findings likely represent abscess. There were moderate right and small left pleural effusions that decreased to previous CT chest. Clinically patient has remained stable. No hemoptysis. The patient is seen today 04/22/2020 in follow-up on the selective care unit. She remains awake and alert in no acute distress. She is maintaining good O2 saturations in the 90s on 2 L/m per nasal cannula. She's been afebrile. Bronchial alveolar lavage and wash of the right lung reveals no growth. Biopsies negative for malignancy. White count 7.9. Hemoglobin 9.7. Sodium 135. Potassium 2.6. Creatinine 0.35. Currently on vancomycin and Zosyn. Her pain is better controlled today. The patient is seen today 04/23/2020 in follow-up on the selective care unit. She is resting quite comfortably in bed. Awake and alert in no acute distress. Her pain is well managed. She was found on the floor yesterday. Computed tomography scan of the brain revealed no acute intracranial hemorrhage or midline shift. X-ray of the left elbow revealed no acute fracture or dislocation. White count 7.8. Hemoglobin 9.2. Sodium 139. Potassium 3.7. Creatinine 0.45. She remains on vancomycin and Zosyn. Objective - Vital Signs Vital signs: Vital Signs Temp 98.2 F 04/23/20 12:00 Pulse 87 04/23/20 12:00 Resp 16 04/23/20 12:00 BP 141/74 04/23/20 12:00 Pulse Ox 94 L 04/23/20 12:00 Intake & Output 04/22/20 04/23/20 04/23/20 18:59 06:59 18:59 Intake Total 720 720 480 Balance 720 720 480 Weight 54 kg Intake: Oral 720 720 480 Other: # Voids 1 - Exam GENERAL EXAM: Alert, very pleasant, 59-year-old female patient, on room air with a pulse ox of 94% comfortable in no apparent distress. HEAD: Normocephalic/atraumatic. EYES: Normal reaction of pupils, equal size. Conjunctiva pink, sclera white. NOSE: Clear with pink turbinates. THROAT: No erythema or exudates. NECK: No masses, no JVD, no thyroid enlargement, no adenopathy. CHEST: No chest wall deformity. Symmetrical expansion. LUNGS: Equal air entry with bilateral scattered rhonchi, more so on the right CVS: Regular rate and rhythm, normal S1 and S2, no gallops, no murmurs, no rubs ABDOMEN: Soft, nontender. No hepatosplenomegaly, normal bowel sounds, no guarding or rigidity. EXTREMITIES: No clubbing, no edema, no cyanosis, 2+ pulses and upper and lower extremities. MUSCULOSKELETAL: Muscle strength and tone normal. SPINE: No scoliosis or deformity SKIN: No rashes CENTRAL NERVOUS SYSTEM: No focal deficits, tone is normal in all 4 extremities. PSYCHIATRIC: Alert and oriented -3. Appropriate affect. Intact judgment and insight. - Labs CBC & Chem 7: 04/23/20 06:30 04/23/20 06:30 Labs: Abnormal Lab Results - Last 24 Hours (Table) 04/22/20 04/22/20 04/22/20 Range/Units 16:50 16:55 20:59 RBC (3.80-5.40) m/uL Hgb (11.4-16.0) gm/dL Hct (34.0-46.0) % MCHC (31.0-37.0) g/dL Potassium 3.2 L (3.5-5.1) mmol/L Carbon Dioxide (22-30) mmol/L Creatinine (0.52-1.04) mg/dL Glucose (74-99) mg/dL POC Glucose (mg/dL) 190 H 214 H (75-99) mg/dL Calcium (8.4-10.2) mg/dL 04/23/20 04/23/20 04/23/20 Range/Units 01:59 06:30 06:30 RBC 3.25 L (3.80-5.40) m/uL Hgb 9.2 L (11.4-16.0) gm/dL Hct 29.8 L (34.0-46.0) % MCHC 30.8 L (31.0-37.0) g/dL Potassium (3.5-5.1) mmol/L Carbon Dioxide 36 H (22-30) mmol/L Creatinine 0.45 L (0.52-1.04) mg/dL Glucose 58 L (74-99) mg/dL POC Glucose (mg/dL) 170 H (75-99) mg/dL Calcium 7.5 L (8.4-10.2) mg/dL 04/23/20 Range/Units 12:19 RBC (3.80-5.40) m/uL Hgb (11.4-16.0) gm/dL Hct (34.0-46.0) % MCHC (31.0-37.0) g/dL Potassium (3.5-5.1) mmol/L Carbon Dioxide (22-30) mmol/L Creatinine (0.52-1.04) mg/dL Glucose (74-99) mg/dL POC Glucose (mg/dL) 190 H (75-99) mg/dL Calcium (8.4-10.2) mg/dL Microbiology - Last 24 Hours (Table) 04/18/20 09:40 Gram Stain - Final Pleural Fluid Body Fluid Culture - Final 04/20/20 13:10 Gram Stain - Final Bronchoalviolar Lavage - Right Bronchial Washings Culture - Final Assessment and Plan Assessment: 1 right lower lobe pneumonia/abscess formation as the patient has complex multiloculated collection in the right lower lobe could be related to an underlying abscess. The same time the patient bilateral pleural effusion and patient received bilateral thoracentesis and the fluid is a transudate for now. The patient has mediastinal lymphadenopathy involving the right paratracheal and subcarinal area, status post bronchoscopy with BAL and transbronchial needle aspirate biopsy of the right paratracheal and subcarinal lymph node, biopsies negative for malignancy. Cultures reveal no growth. Patient is status post left and right thoracentesis, with negative cytologies, and negative pleural flu id cultures 2 acute hypoxic respiratory failure secondary to above, currently on 2 L of oxygen by nasal cannula 3 altered mental status recovered and the patient is back to normal 4 CHF with cardiomyopathy and an ejection fraction of 25-30% and moderate degree of pulmonary hypertension with a PA pressure of 46 5 diabetes mellitus type 2, poorly controlled on outpatient basis 6 post cholecystectomy and surgery was done on 04/08/2020 7 previous history of UTI 8 previous history of C. diff colitis and the patient is having extensive diarrhea and fecal management system was inserted. Rule out recurrent C. diff colitis specially the patient was taking antibiotics on outpatient basis 9 fibromyalgia 10 hypertension 11 hyperlipidemia 12 chronic pain syndrome with degenerative disc disease 13 former smoker 14 depression 15 opiates intake post Narcan treatment 16 leukocytosis and the patient's white cell count is improving 17 troponin leak 18 mild lactic acidosis, recovered Plan: The patient was seen and evaluated by Dr. Ram The patient is improving clinically and on room air We will discontinue vancomycin Continue Zosyn for now Encourage the increased use of the incentive spirometer Increase activity as tolerated We'll continue to follow and make further recommendations based on her clinical status I, the cosigning physician, performed a history & physical examination of the patient. Lungs sounds with bilateral scattered rhonchi right greater than left. Maintaining good O2 saturations in the 90s on room air. I discussed the assessment and plan of care with my nurse practitioner, Raegan Olivas. I attest to the above note as dictated by her.
--- NOTE | 2020-04-23 14:16 | P.PN ---
Subjective Progress Note Date: 04/23/20 Principal diagnosis: Right lower lobe pneumonia/abscess formation with bilateral pleural effusions status post bilateral thoracentesis 04/21/2020 patient seen in follow-up on selective care unit. Patient is awake, denies any difficulty breathing Pleural fluid cytologies from the right and left thoracentesis have been negative, she is status post bronchoscopy with BAL, and transbronchial needle aspirate of the right peritracheal/subcarinal lymph node, biopsy is pending. CT chest this morning was obtained and showed right middle lobe infrahilar l oculated fluid collection mildly increased in size since 04/17/2020, and immediately adjacent inferior anterior multilocular fluid collection in the right middle lobe is mildly decreased small focus of loculated gas, 2 fluid collections may be contiguous in the findings likely represent abscess. There were moderate right and small left pleural effusions that decreased to previous CT chest. 04/22/2020 Patient is seen and evaluated in follow-up on the selective care unit. Patient had an episode of fall and claimed to have hit her head without any loss of consciousness; She remains awake and alert in no acute distress. She is maintaining good O2 saturations in the 90s on 2 L/m per nasal cannula. She's been afebrile. Bronchial alveolar lavage and wash of the right lung reveals no growth. Biopsies negative for malignancy. White count 7.9. Hemoglobin 9.7. S odium 135. Potassium 2.6. Creatinine 0.35. Currently on vancomycin and Zosyn. Her pain is better controlled today. Stat CT of the head is done to follow-up on fall which is unremarkable for any acute changes 04/23/2020 Patient is seen in follow-up on the selective care unit. She is resting quite comfortably in bed. Awake and alert in no acute distress. Her pain is well managed. She was found on the floor yesterday. Computed tomography scan of the brain revealed no acute intracranial hemorrhage or midline shift. X-ray of the left elbow revealed no acute fracture or dislocation. White count 7.8. Hemoglobin 9.2. Sodium 139. Potassium 3.7. Creatinine 0.45. She remains on vancomycin and Zosyn; pulmonary/critical-care recommending to discontinue vancomycin. Objective - Vital Signs Vital signs: Vital Signs Temp 98.5 F 04/23/20 08:00 Pulse 87 04/23/20 08:00 Resp 16 04/23/20 08:00 BP 99/67 04/23/20 08:00 Pulse Ox 93 L 04/23/20 08:00 Intake & Output 04/22/20 04/23/20 04/23/20 18:59 06:59 18:59 Intake Total 720 720 480 Balance 720 720 480 Weight 54 kg Intake: Oral 720 720 480 Other: # Voids 1 - Exam HEAD: Normocephalic/atraumatic. EYES: Normal reaction of pupils, equal size. Conjunctiva pink, sclera white. NOSE: Clear with pink turbinates. THROAT: No erythema or exudates. NECK: No masses, no JVD, no thyroid enlargement, no adenopathy. CHEST: No chest wall deformity. Symmetrical expansion. LUNGS: Equal air entry with no crackles, wheeze, rhonchi or dullness. CVS: Regular rate and rhythm, normal S1 and S2, no gallops, no murmurs, no rubs ABDOMEN: Soft, nontender. No hepatosplenomegaly, normal bowel sounds, no guarding or rigidity. EXTREMITIES: No clubbing, no edema, no cyanosis, 2+ pulses and upper and lower extremities. - Labs CBC & Chem 7: 04/23/20 06:30 04/23/20 06:30 Labs: Abnormal Lab Results - Last 24 Hours (Table) 04/22/20 04/22/20 04/22/20 Range/Units 12:20 16:50 16:55 RBC (3.80-5.40) m/uL Hgb (11.4-16.0) gm/dL Hct (34.0-46.0) % MCHC (31.0-37.0) g/dL Potassium 3.2 L (3.5-5.1) mmol/L Carbon Dioxide (22-30) mmol/L Creatinine (0.52-1.04) mg/dL Glucose (74-99) mg/dL POC Glucose (mg/dL) 251 H 190 H (75-99) mg/dL Calcium (8.4-10.2) mg/dL 04/22/20 04/23/20 04/23/20 Range/Units 20:59 01:59 06:30 RBC 3.25 L (3.80-5.40) m/uL Hgb 9.2 L (11.4-16.0) gm/dL Hct 29.8 L (34.0-46.0) % MCHC 30.8 L (31.0-37.0) g/dL Potassium (3.5-5.1) mmol/L Carbon Dioxide (22-30) mmol/L Creatinine (0.52-1.04) mg/dL Glucose (74-99) mg/dL POC Glucose (mg/dL) 214 H 170 H (75-99) mg/dL Calcium (8.4-10.2) mg/dL 04/23/20 Range/Units 06:30 RBC (3.80-5.40) m/uL Hgb (11.4-16.0) gm/dL Hct (34.0-46.0) % MCHC (31.0-37.0) g/dL Potassium (3.5-5.1) mmol/L Carbon Dioxide 36 H (22-30) mmol/L Creatinine 0.45 L (0.52-1.04) mg/dL Glucose 58 L (74-99) mg/dL POC Glucose (mg/dL) (75-99) mg/dL Calcium 7.5 L (8.4-10.2) mg/dL Microbiology - Last 24 Hours (Table) 04/18/20 09:40 Gram Stain - Final Pleural Fluid Body Fluid Culture - Final 04/20/20 13:10 Gram Stain - Final Bronchoalviolar Lavage - Right Bronchial Washings Culture - Final Assessment and Plan Assessment: 1 right lower lobe pneumonia/abscess formation as the patient has complex multiloculated collection in the right lower lobe could be related to an underlying abscess. The same time the patient bilateral pleural effusion and patient received bilateral thoracentesis and the fluid is a transudate for now. The patient has mediastinal lymphadenopathy involving the right paratracheal and subcarinal area, status post bronchoscopy with BAL and transbronchial needle a spirate biopsy of the right paratracheal and subcarinal lymph node, biopsies pending at this time. Patient is status post left and right thoracentesis, with negative cytologies, and negative pleural fluid cultures 2 acute hypoxic respiratory failure secondary to above, currently on 4 L of oxygen by nasal cannula 3 altered mental status recovered and the patient is back to normal 4 CHF with cardiomyopathy and an ejection fraction of 25-30% and moderate degree of pulmonary hypertension with a PA pressure of 46 5 diabetes mellitus type 2, poorly controlled on outpatient basis 6 post cholecystectomy and surgery was done on 04/08/2020 7 previous history of UTI 8 previous history of C. diff colitis and the patient is having extensive diarrhea and fecal management system was inserted. Rule out recurrent C. diff colitis specially the patient was taking antibiotics on outpatient basis 9 fibromyalgia 10 hypertension 11 hyperlipidemia Continue current medical treatment, awaiting results of the transbronchial biopsy of the right peritracheal sitter subcarinal lymph node, so far all cultures remain negative. Clinically patient is stable, improving, no altered mentation, she's been afebrile, continue same antibiotics right now. Follow-up CT chest was obtained and reviewed showing improvement in the appearance of fluid collection in the right middle lobe, and bilateral pleural effusions. Clinically stable, we'll continue to follow.
[2020-04-23] MEDS ORDERED: VANCOMYCIN TROUGH DUE 1 EACH MISC MISCELLANE ONE (17:00)
[2020-04-23 17:28] LABS: Glucose,Whole Blood 363 mg/dL (75-99)
[2020-04-23] MEDS: LACTATED RINGERS 1,000 ML IV SCH (19:58)
[2020-04-23 20:12] LABS: Glucose,Whole Blood 543 mg/dL (75-99)
[2020-04-23 20:14] LABS: Glucose,Whole Blood 416 mg/dL (75-99)
[2020-04-23] MEDS ORDERED: INSULIN ASPART (NovoLOG) 100 UNIT/ML VIAL SQ ONE (20:56)
[2020-04-23] MEDS: ATORVASTATIN 20 MG TAB PO SCH (20:59)
[2020-04-23] MEDS: SODIUM CHLORIDE 0.9% 1,000 ML IV SCH (21:01)
[2020-04-23] MEDS: TEMAZEPAM 15 MG CAP PO PRN (21:56)
[2020-04-24 02:10] LABS: Glucose,Whole Blood 82 mg/dL (75-99)
[2020-04-24] MEDS: HYDROcodone/APAP 10-325MG 1 EACH TAB PO PRN ×2 (03:57→12:28)
[2020-04-24] MEDS: PIPERACILLIN-TAZOBACTAM 3.375 GM in SODIUM CHLORIDE 0.9% 100 ML IVPB SCH ×2 (06:04→15:04)
[2020-04-24 06:58] LABS: Glucose,Whole Blood 145 mg/dL (75-99)
[2020-04-24] MEDS: INSULIN ASPART (NovoLOG) 100 UNIT/ML VIAL SQ SCH ×6 (06:59→16:57)
[2020-04-24] MEDS: INSULN ASP PRT/INSULIN ASPART 100 UNIT/ML 10 ML VIAL SQ SCH ×2 (07:02→16:57)
[2020-04-24 08:12] LABS: African American GFR (CKD) >90 (>60 ml/min/1.73 sqM); Anion Gap 5 mmol/L; Blood Urea Nitrogen 10 mg/dL (7-17); Calcium 7.6 mg/dL (8.4-10.2); Carbon Dioxide 35 mmol/L (22-30); Chloride 97 mmol/L (98-107); Glucose 132 mg/dL (74-99); Non-African American GFR(CKD) >90 (>60 ml/min/1.73 sqM); Potassium 3.6 mmol/L (3.5-5.1); Sodium 137 mmol/L (137-145)
--- NOTE | 2020-04-24 08:19 | XR ---
EXAMINATION TYPE: XR chest 2V DATE OF EXAM: 04/24/2020 COMPARISON: Prior chest x-ray 04/20/2020, chest CT 04/21/2020 HISTORY: Pneumonia follow-up TECHNIQUE: Frontal and lateral views of the chest are obtained. FINDINGS: Basilar density right greater than left is again noted, there is blunting of the costophre nicolasa angles, the right hemidiaphragm is obscured. Heart size is stable. No evident pneumothorax. Bones are stable. There is underlying emphysema. IMPRESSION: Findings similar to prior exam. Right lower lobe atelectasis versus pneumonia and associ ated effusion greater than left
[2020-04-24] MEDS ORDERED: lisinopriL 5 MG TAB PO SCH (09:00)
[2020-04-24] MEDS: PANTOPRAZOLE 40 MG TABLET PO SCH (09:23)
[2020-04-24] MEDS: DULoxetine HCL 30 MG CAPSULE.DR PO SCH (09:23)
[2020-04-24] MEDS: ASPIRIN 81 MG PO SCH (09:23)
[2020-04-24] MEDS: METOPROLOL SUCCINATE (ER) 25 MG TAB.ER.24H PO SCH (09:23)
[2020-04-24] MEDS: ENOXAPARIN 40 MG/0.4 ML SYRINGE SQ SCH (09:24)
[2020-04-24] MEDS: GABAPENTIN 100 MG CAP PO SCH (09:24)
[2020-04-24] MEDS: FUROSEMIDE 20 MG TAB PO SCH ×2 (09:24→15:04)
--- NOTE | 2020-04-24 11:00 | P.PN ---
Subjective Progress Note Date: 04/24/20 This is a 59-year-old female who is being treated for right lung abscess/pneumonia. Patient was also found to have cardiac myopathy with impaired ejection fraction. She has undergone a bilateral thoracentesis since her admission here. She was seen and examined this morning, resting comfortably in bed. Awake and alert. She did experience a fall over the weekend, CAT scan of the brain did not reveal any acute intracranial hemorrhage or midline shift. X-ray of the elbow revealed no acute fracture or dislocation. Blood pressure this morning 114/70 with a heart rate in the 80s, 94% on room air. Sodium 137, potassium 3.6, BUN 10, creatinine 0.4. Objective - Vital Signs Vital signs: Vital Signs Temp 98.5 F 04/24/20 09:19 Pulse 82 04/24/20 09:19 Resp 16 04/24/20 09:19 BP 114/69 04/24/20 09:19 Pulse Ox 94 L 04/24/20 09:19 Intake & Output 04/23/20 04/24/20 04/24/20 18:59 06:59 18:59 Intake Total 946 780 236 Balance 946 780 236 Weight 56.1 kg Intake: Oral 946 780 236 Other: # Voids 1 3 - Exam GENERAL EXAM: Alert, very pleasant, 59-year-old female patient, on room air with a pulse ox of 94% comfortable in no apparent distress. HEAD: Normocephalic/atraumatic. EYES: Normal reaction of pupils, equal size. Conjunctiva pink, sclera white. NOSE: Clear with pink turbinates. THROAT: No erythema or exudates. NECK: No masses, no JVD, no thyroid enlargement, no adenopathy. CHEST: No chest wall deformity. Symmetrical expansion. LUNGS: Equal air entry with bilateral scattered rhonchi, more so on the right CVS: Regular rate and rhythm, normal S1 and S2, no gallops, no murmurs, no rubs ABDOMEN: Soft, nontender. No hepatosplenomegaly, normal bowel sounds, no guarding or rigidity. EXTREMITIES: No clubbing, no edema, no cyanosis, 2+ pulses and upper and lower extremities. MUSCULOSKELETAL: Muscle strength and tone normal. SPINE: No scoliosis or deformity SKIN: No rashes CENTRAL NERVOUS SYSTEM: No focal deficits, tone is normal in all 4 extremities. PSYCHIATRIC: Alert and oriented -3. Appropriate affect. Intact judgment and insight. - Labs CBC & Chem 7: 04/23/20 06:30 04/24/20 07:11 Labs: Abnormal Lab Results - Last 24 Hours (Table) 04/23/20 04/23/20 04/23/20 Range/Units 12:19 17:22 20:11 Chloride (98-107) mmol/L Carbon Dioxide (22-30) mmol/L Creatinine (0.52-1.04) mg/dL Glucose (74-99) mg/dL POC Glucose (mg/dL) 190 H 363 H 543 H (75-99) mg/dL Calcium (8.4-10.2) mg/dL 04/23/20 04/24/20 04/24/20 Range/Units 20:12 06:57 07:11 Chloride 97 L (98-107) mmol/L Carbon Dioxide 35 H (22-30) mmol/L Creatinine 0.44 L (0.52-1.04) mg/dL Glucose 132 H (74-99) mg/dL POC Glucose (mg/dL) 416 H 145 H (75-99) mg/dL Calcium 7.6 L (8.4-10.2) mg/dL Assessment and Plan Plan: Assessment and plan 1 right lower lobe pneumonia/abscess formation as the patient has complex multiloculated collection in the right lower lobe could be related to an underlying abscess. The same time the patient bilateral pleural effusion and patient received bilateral thoracentesis and the fluid is a transudate for now. The patient has mediastinal lymphadenopathy involving the right paratracheal and subcarinal area, status post bronchoscopy with BAL and transbronchial needle aspirate biopsy of the right paratracheal and subcarinal lymph node, biopsies negative for malignancy. Cultures reveal no growth. Patient is status post left and right thoracentesis, with negative cytologies, and negative pleural fluid cultures 2 acute hypoxic respiratory failure secondary to above, currently on 2 L of oxygen by nasal cannula 3 altered mental status recovered and the patient is back to normal 4 systolic congestive heart failure acute on chronic ,ejection fraction of 25- 30% and moderate degree of pulmonary hypertension with a PA pressure of 46 5 diabetes mellitus type 2, poorly controlled on outpatient basis 6 post cholecystectomy and surgery was done on 04/08/2020 7 previous history of UTI 8 previous history of C. diff colitis and the patient is having extensive diarrhea and fecal management system was inserted. Rule out recurrent C. diff colitis specially the patient was taking antibiotics on outpatient basis 9 fibromyalgia 10 hypertension 11 hyperlipidemia 12 chronic pain syndrome with degenerative disc disease 13 former smoker 14 depression Plan From cardiology's perspective, the patient is currently on by mouth diuretics, we'll continue with current medications. DNP note has been reviewed, I agree with a documented findings and plan of care. Patient was seen and examined.
[2020-04-24 12:04] LABS: Glucose,Whole Blood 96 mg/dL (75-99)
--- NOTE | 2020-04-24 12:59 | P.PN ---
Subjective Progress Note Date: 04/24/20 Principal diagnosis: Right lower lobe pneumonia/abscess formation with bilateral pleural effusions status post bilateral thoracentesis This is a 59-year-old female patient was brought into the emergency department by caregiver unresponsive, lethargic, hypoglycemic. The patient was in the hospital last week and the patient underwent a laparoscopic cholecystectomy for an acute cholecystitis on 04/08/2020. Note that the patient presented to the hospital because of symptoms of acute cholecystitis. She was having right upper quadrant pain. The pain was radiating to the back. She has some nausea. She had elevated white cell count of 18. She had low-grade fever. Ultrasound the gallbladder showed inflammation with fluid. LFTs were normal except for some mild elevation of alkaline phosphatase. The patient underwent the surgery and the patient was discharged home on Ceftin for a total of 5 days. She was also given incentive spirometer. Noted the chest x-ray prior to discharge showed a right-sided pleural effusion that was small. The patient came in today because of feeling lethargic and she was found to be quite lethargic and unresponsive by the caregiver. At the time of arrival the patient was found to be hypoglycemic. Her blood sugar was in the 40s. She was given 3 A of D50 based on 3 episodes of hypoglycemia that occurred since her being transferred to the hospital. The patient also had taken 2 tablets of 30 mg of morphine and was given to her by a friend. She was given Narcan in the emergency department. She became agitated and following that she was given Ativan and currently she is resting comfortably in bed. Based on her presentation, a CAT scan of the abdomen and pelvis was done and the CAT scan showed a large multi loculated collection in the right lower lobe of the lung with components measuring 4 x 3.3 and 6 x 4.4 cm in size respectively. There was internal air identified. Finding was consistent with a lung abscess. There was also evidence of small bowel thickening, nonspecific colitis and there was also evidence of a large right-sided pleural effusion. I saw the patient emergency department. She was still not fully communicating. She was lethargic. She would withdraw to painful additional 4 extremities. I was able to drain approximately 1.2 L of pleural fluid from the right lung. The pleural fluid was turbid dark yellowish in color. The patient tolerated the procedure well. Postprocedure chest x-ray showed no evidence of any pneumothorax. There is a persistent right lower lobe opacity with diminution of the pleural effusion. Note that the patient was having diarrhea and she has had previous history of C. diff colitis. A fecal management system was attached. The patient will be transferred to the intensive care unit. On 04/15/2020, the patient wide awake alert and communicating and following commands and answering questions. Marked improvement in his neurologic status compared to yesterday. She is requesting painkillers. She has body aches all over and she is requesting painkillers and this is her main concern. Meanwhile, the patient is still bilateral pneumonia. After performing a thoracentesis yesterday which do not to be a transudate, I performed a CAT scan of the chest and the CAT scan showed extensive bilateral pneumonic infiltrates that is worse on the right compared to the left. There is also better pleural effusion and small. No empyema based on the pleural fluid analysis. Infiltrates are quite extensive and there is some mild mucin lymphadenopathy consistent with inflammatory disease. There is dense right middle lobe consolidation. No lung abscess was visualized. Based on all this, and based on the concern of a hospital-acquired pneumonia, assess this patient a combination of Zosyn and vancomycin. The patient is not having any diarrhea at this point in time. Stool for C. diff was not collected. I think IV Flagyl can be discontinued. The white cell count is at 17.6. Function is stable with a creatinine of 0.2. No diarrhea. No abdominal pain. No nausea or vomiting. 04/16/2020, the patient is doing well. Awake and alert. Tolerating diet. No significant shortness of breath. Using incentive spirometer. Chest x-ray still showing extensive consolidation of the right lung along with some infiltration of the left lung base. As mentioned earlier, a transudate pleural fluid was aspirated from the right lung. Echocardiogram was done and the patient was found also to have cardiomyopathy with an ejection fraction on the left ventricle estimated to be around 25%. The patient remains on a combination of Zosyn and vancomycin. No chest pain. She is on 6 L of oxygen by nasal cannula pH is tolerating her diet. Her pain is under good control. No diarrhea for now. Blood cultures been negative. White cell count is down to 14.9. No altered mentation. 04/17/2020, I'm seeing the patient for a follow-up. The patient is doing well. The patient remains on accommodation of Zosyn and vancomycin. The patient is being treated for a right lung abscess/pneumonia. Nevertheless, the pleural effusion I think it's related to her underlying CHF as the patient was also found to have cardiomyopathy with impaired ejection fraction. I reviewed the CAT scan of the chest today. The patient was found to have a multi loculated collection in the right lower lobe which is felt to be related to an abscess. At the same time, the patient had recurrent and large bilateral pleural effusion right more than left along with some bilateral airspace consolidation and volume loss. Based on all this, I performed another thoracentesis of the patient's right lung and another 1.5 L of fluid was aspirated from the right lung. I intend to do a thoracentesis of the left lung. Noted earlier fluid was a transudate. I'm going to start the patient on IV Lasix in addition to the antibiotics. She is awake and alert. She is complaining of chronic pain as usual. The patient is currently on 6 L of oxygen by nasal cannula. Hemodynamically stable. She is afebrile. 04/18/2020 on seeing the patient for a follow-up. The patient remains on a com bination of Zosyn and vancomycin. Celexa discomfort along her right lateral chest and upper quadrant area. No significant shortness of breath. No fever or chills. Repeat chest x-ray shows a consolidation in the right lower lobe and there is also left-sided pleural effusion. Note that a right-sided thoracentesis was done yesterday successfully and a total of 1.5 L of fluid was removed. I performed arthrocentesis on her on the left and I will around 8 50 mL of pleural fluid and this will be sent for analysis. Note that the fluid on the right with a transudate and the patient remains on IV Lasix and she has an adequate urine output. She remains on 6 L of oxygen by nasal cannula. She is using incentive spirometer. No altered mentation. She is tolerating her diet. Cultures of been negative. 04/19/2020 on seeing the patient for a follow-up. Noted the patient has undergone bilateral thoracentesis. Today's chest x-ray shows a right lower lobe consolidation and the residual bilateral pleural effusions are small. The patient remains on a combination of vancomycin and Zosyn. Note that the pleural fluid that was aspirated from the right lung was a transudate. The fluid was as pirated from the left lung also shows low protein and LDH consistent with a transudate. The patient is on Lasix and the patient is making adequate amount of urine output. She is established to have an underlying cardiomyopathy with impaired left ventricular ejection fraction of around 25%. The patient is also on Lasix 20 mg IV push every 12 hours. Cardiac rhythm is sinus. No fever. No chills. No significant leukocytosis. No nausea or vomiting. No emesis. Cultures of been all negative. I reviewed the CAT scan of the chest. I realize that the patient has a right paratracheal and subcarinal lymphadenopathy. There is also complex lesions within the right lung and the right lower lobe suggestive of abscess formation. I think is reasonable to do a bronchoscopy for airway inspection and at the same time attempted transbronchial needle aspirate of the mediastinal lymph nodes should there be any malignancy. The lymph nodes within the chest could be potentially inflammatory also as the patient extensive right lung pneumonia. On 04/20/2020 patient seen in follow-up on selective care unit, she is resting comfortably in bed, breathing comfortably, early on 2 L of oxygen pulse ox is 97%, hemodynamically stable, she has been afebrile, patient is status post left thoracentesis on 04/19/2020 with negative cytology, the pleural fluid cytology from the right thoracentesis from 04/17/2020 was also negative. Total fluid analysis of the right sided pleural fluid showed transudate. Pleural fluid cultures have shown no growth. Empiric antiemetic coverage is in the form of Zosyn and vancomycin. She has been nothing by mouth after midnight for a bronchoscopy with BAL and possible biopsies today. He has had no chest pain, no cough or congestion, On 04/21/2020 patient seen in follow-up on selective care unit. Patient is awake, denies any difficulty breathing, she isn't liters of oxygen pulse ox of 90%, she's had no fever or chills, her pleural fluid cytologies from the right and left thoracentesis have been negative, she is status post bronchoscopy with BAL, and transbronchial needle aspirate of the right peritracheal/subcarinal lymph node, biopsy is pending. CT chest this morning was obtained and showed right middle lobe infrahilar loculated fluid collection mildly increased in size since 04/17/2020, and immediately adjacent inferior anterior multilocular fluid collection in the right middle lobe is mildly decreased small focus of loculated gas, 2 fluid collections may be contiguous in the findings likely represent abscess. There were moderate right and small left pleural effusions that decreased to previous CT chest. Clinically patient has remained stable. No hemoptysis. On 04/24/2020 patient seen in follow-up on selective care unit, patient is aw luke, in no acute distress, she is resting comfortably in bed, she is currently on room air pulse ox is 94%, hemodynamically she is stable, she's had no fever or chills, breathing has significantly improved, respirations are nonlabored, lung sounds reveal some diminished breath sounds in bilateral bases, no rhonchi or wheezing, follow-up chest x-ray today showed right lower lobe atelectasis, and associated pleural effusion, greater on the right than the left. All pleural, blood and BAL cultures have been negative to date. Biopsy of the right. She'll fill one needle aspirate was nondiagnostic of a mass lesion or malignancy. Cytology of pleural fluid from the right and left thoracentesis has not shown cells suggestive of malignancy. Today's labs have been reviewed, clinically patient has remained stable, no altered mentation, no increased chest pain, no hemoptysis. Current antibiotic coverage continues with Zosyn and vancomycin. Objective - Vital Signs Vital signs: Vital Signs Temp 98.6 F 04/24/20 11:53 Pulse 77 04/24/20 11:53 Resp 18 04/24/20 11:53 BP 119/69 04/24/20 11:53 Pulse Ox 94 L 04/24/20 11:53 Intake & Output 04/23/20 04/24/20 04/24/20 18:59 06:59 18:59 Intake Total 946 780 236 Balance 946 780 236 Weight 56.1 kg Intake: Oral 946 780 236 Other: # Voids 1 3 4 - Exam GENERAL EXAM: Alert, very pleasant, 59-year-old white female, on room air with a pulse ox of 94% comfortable in no apparent distress. HEAD: Normocephalic/atraumatic. EYES: Normal reaction of pupils, equal size. Conjunctiva pink, sclera white. NOSE: Clear with pink turbinates. THROAT: No erythema or exudates. NECK: No masses, no JVD, no thyroid enlargement, no adenopathy. CHEST: No chest wall deformity. Symmetrical expansion. LUNGS: Equal air entry with no crackles, wheeze, rhonchi or dullness. CVS: Regular rate and rhythm, normal S1 and S2, no gallops, no murmurs, no rubs ABDOMEN: Soft, nontender. No hepatosplenomegaly, normal bowel sounds, no guarding or rigidity. EXTREMITIES: No clubbing, no edema, no cyanosis, 2+ pulses and upper and lower extremities. MUSCULOSKELETAL: Muscle strength and tone normal. SPINE: No scoliosis or deformity SKIN: No rashes CENTRAL NERVOUS SYSTEM: Alert and oriented -3. No focal deficits, tone is normal in all 4 extremities. PSYCHIATRIC: Alert and oriented -3. Appropriate affect. Intact judgment and insight. - Labs CBC & Chem 7: 04/23/20 06:30 04/24/20 07:11 Labs: Abnormal Lab Results - Last 24 Hours (Table) 04/23/20 04/23/20 04/23/20 Range/Units 17:22 20:11 20:12 Chloride (98-107) mmol/L Carbon Dioxide (22-30) mmol/L Creatinine (0.52-1.04) mg/dL Glucose (74-99) mg/dL POC Glucose (mg/dL) 363 H 543 H 416 H (75-99) mg/dL Calcium (8.4-10.2) mg/dL 04/24/20 04/24/20 Range/Units 06:57 07:11 Chloride 97 L (98-107) mmol/L Carbon Dioxide 35 H (22-30) mmol/L Creatinine 0.44 L (0.52-1.04) mg/dL Glucose 132 H (74-99) mg/dL POC Glucose (mg/dL) 145 H (75-99) mg/dL Calcium 7.6 L (8.4-10.2) mg/dL Microbiology - Last 24 Hours (Table) 04/14/20 15:54 Fungal Culture - Preliminary Pleural Fluid Assessment and Plan Plan: Assessment: 1 right lower lobe pneumonia/abscess formation as the patient has complex multiloculated collection in the right lower lobe could be related to an underlying abscess. The same time the patient bilateral pleural effusion and patient received bilateral thoracentesis and the fluid is a transudate for now. The patient has mediastinal lymphadenopathy involving the right paratracheal and subcarinal area, status post bronchoscopy with BAL and transbronchial needle aspirate biopsy of the right paratracheal and subcarinal lymph node, biopsies nondiagnostic. Patient is status post left and right thoracentesis, with negative cytologies, and negative pleural fluid cultures 2 acute hypoxic respiratory failure secondary to above, currently on room air 3 altered mental status recovered and the patient is back to normal 4 CHF with cardiomyopathy and an ejection fraction of 25-30% and moderate degree of pulmonary hypertension with a PA pressure of 46 5 diabetes mellitus type 2, poorly controlled on outpatient basis 6 post cholecystectomy and surgery was done on 04/08/2020 7 previous history of UTI 8 previous history of C. diff colitis and the patient is having extensive diarrhea and fecal management system was inserted. Rule out recurrent C. diff colitis specially the patient was taking antibiotics on outpatient basis 9 fibromyalgia 10 hypertension 11 hyperlipidemia 12 chronic pain syndrome with degenerative disc disease 13 former smoker 14 depression 15 opiates intake post Narcan treatment 16 leukocytosis and the patient's white cell count is improving 17 troponin leak 18 mild lactic acidosis, recovered Plan: Patient is doing well, she is on room air, she's been afebrile, hemodynamically stable, no specific complaints, no acute events overnight, no fever or chills. All cultures including blood, BAL, and pleural fluid cultures have been negative to date. Follow-up chest x-ray today has been reviewed, still showing right lower lobe atelectasis and adjacent pleural effusion, however clinically patient has significantly improved, she's had no acute events, no complaints of worsening dyspnea or chest pain. She was treated with broad-spectrum antibiotics, improved. Troponin perspective she stable for discharge home today, with outpatient follow-up with Dr. Ram in the office in 7-10 days. I performed a history & physical examination of the patient and discussed their management with my nurse practitioner, Makenna Cheng. I reviewed the nurse practitioner's note and agree with the documented findings and plan of care. Lung sounds are positive for diminished breath sounds. The findings and the impression was discussed with the patient. I attest to the documentation by the nurse practitioner. Time with Patient: Less than 30
[2020-04-24 13:37] VITALS: BMI 21.2
[2020-04-24 16:34] LABS: Glucose,Whole Blood 299 mg/dL (75-99)
[2020-04-24 17:44] VITALS: BP 132/78; PULSE 83; RESP 16; TEMP 98.5
--- NOTE | 2020-04-25 14:47 | CDI ---
Documentation Clarification Form Date: 04/25/20 From: Angelina Leong Phone: If you have a question about this query, please contact Rae Ramos, [employer]ric Machine Operator at [phone] between 8am and 5pm. Admit Date: 04/14/20 Discharge Date: 04/24/20 Patient Name: VILLA MARTINEZ Visit Number: [id number] ATTENTION: The Clinical Documentation Specialists (CDI) and [facility] Coding Staff appreciate your assistance in clarifying documentation. Please respond to the clarification below the line at the bottom and electronically sign. The CDI & [facility] Coding staff will review the response and follow-up if needed. Please note: Queries are made part of the Legal Health Record. If you have any questions, please contact the author of this message via ITS. Dear Dr. Rodrigo Millan, The diagnosis of possible sepsis was documented in the ED note, H&P, and PNs 04/18-04/20, but is not noted in subsequent documentation. History/Risk Factors: Pneumonia w abscess-hospital acquired, gram-neg and Staph, cardiomyopathy, HTN w acute on chronic combined systolic and diastolic CHF Clinical Indicators: lactic acid-2.7, lactic AC sepsis [id number], WBC- 15.3/17.5/14.9, Neutrophils-13.4/16.0/12.5, COVID- neg Treatment: IV fluids, IV Rocephin, IV Zithromax, IV Zosyn, IV Flagyl Please clarify if the sepsis was Present/active/treated this admission Sepsis ruled out Other, please specify Clinically unable to determine Sepsis ruled out MTDD
--- NOTE | 2020-04-25 14:56 | CDI ---
Documentation Clarification Form Date: 04/25/20 From: Angelina Leong Phone: If you have a question about this query, please contact Rae Ramos, Ceramic Worker at [phone] between 8am and 5pm. Admit Date: 04/14/20 Discharge Date: 04/24/20 Patient Name: VILLA MARTINEZ Visit Number: [id number] ATTENTION: The Clinical Documentation Specialists (CDI) and [facility] Coding Staff appreciate your assistance in clarifying documentation. Please respond to the clarification below the line at the bottom and electronically sign. The CDI & [facility] Coding staff will review the response and follow-up if needed. Please note: Queries are made part of the Legal Health Record. If you have any questions, please contact the author of this message via ITS. Dear Dr. Josep Lundy, Patient presented with troponin of: 0.216 Patient history/risk factors: Pneumonia w abscess-hospital acquired, gram-neg and Staph, cardiomyopathy, HTN w acute on chronic combined systolic and diastolic CHF Clinical indicators: EKG-normal sinus rhythm, ST & T wave abnormality, consider anterolateral ischemia Treatment: Metoprolol succinate 25 mg, Lisinopril 5 mg, Atorvastatin 20 mg, ASA 81 mg In your professional opinion, can you please specify the diagnosis, if any, indicated by the above clinical indicators and treatment? Type II DC Ischemia on demand, acute Abnormal Troponin Other, please specify Unable to determine Unable to determine MTDD
--- NOTE | 2020-04-25 15:03 | CDI ---
Documentation Clarification Form Date: 04/25/20 From: Angelian Leong Phone: If you have a question about this query, please contact Rae Ramos, [employer] at [phone] between 8am and 5pm. Admit Date: 04/14/20 Discharge Date: 04/24/20 Patient Name: VILLA MARTINEZ Visit Number: [id number] ATTENTION: The Clinical Documentation Specialists (CDI) and [facility] Coding Staff appreciate your assistance in clarifying documentation. Please respond to the clarification below the line at the bottom and electronically sign. The CDI & [facility] Coding staff will review the response and follow-up if needed. Please note: Queries are made part of the Legal Health Record. If you have any questions, please contact the author of this message via ITS. Dear Dr. Rodrigo Millan, The diagnosis Stage II pressure ulcer of coccyx was documented in the Wound Assessment on 04/19, but is not noted in subsequent documentation. History/Risk Factors: Pneumonia w abscess-hospital acquired, gram-neg and Staph, cardiomyopathy, HTN w acute on chronic combined systolic and diastolic CHF mod PCM Treatment: Turn Q 2 hours, barrier cream,and tuck pillows under patient's bottom 1. Please clarify if the patient had Stage II pressure ulcer of coccyx. Yes No 2. Please clarify if the pressure ulcer was not present on admission. Yes No Stage II pressure ulcer of coccyx. POA MTDD
--- NOTE | 2020-04-28 12:19 | P.PCN ---
Date of Procedure: 04/20/20 Preoperative Diagnosis: mediastinal lymphadenopathy, right lower lobe pneumonia/possible abscess Postoperative Diagnosis: same Procedure(s) Performed: lexible bronchoscopy, BAL of the right lower lobe, transbronchial needle aspirate of a right paratracheal and subcarinal lymph nodes. Anesthesia: MAC Surgeon: Eliezer Ram Estimated Blood Loss (ml): 0 Pathology: other Condition: stable Disposition: floor Operative Findings: This procedure was done in the endoscopy suite. The procedure was done under conscious sedation with an acidic it is being admitted by anesthesia the bedside. After achieving adequate sedation, the flexible bronchoscope was introduced through the right nostril was advanced into the upper airway. The examination of the posterior pharynx and larynx and epiglottis was done. Uvula was within normal. Pharyngeal wall was within normal. Epiglottis was within normal. Vallecula, arytenoids and the true and the false vocal cords were all within normal limits. A total of 2 mL of 1% lidocaine was applied to the vocal cords and following that the bronchoscope was advanced into the upper trachea. An airway inspection was done. The entire tracheobronchial tree was inspected including the trachea, bilateral mainstem bronchi, right upper lobe bronchus, bronchus intermedius, right middle lobe bronchus, right lower lobe bronchus, left upper lobe bronchus left lower lobe bronchus and the various segments and subsegments. All of these airways were patent and within normal limits. The bronchoscope was then removed to the anterior segments of the right lower lobe and the lavage was done. A total of 80 mL of fluid was infused and 25 mL was thorpe ctioned back. Following that, bronchoscope was moved to the main trachea and using a 21-gauge cytology needle, transbronchial needle aspirate of the right paratracheal lymph node and a subcarinal lymph node was done. 2 passes of each was taken without any complications. No bleeding was encountered. Bronchoscope was removed. Adequacy of the samples was confirmed by pathology without the samples were cellular. The patient was transferred to recovery in stable condition. No complications.
--- NOTE | 2020-05-09 11:24 | P.DS ---
Providers Date of admission: 04/14/20 13:37 Expected date of discharge: 04/24/20 Attending physician: Mohamud Dey MD Consults: 04/14/20 12:46 Consult Physician Urgent Consulting Provider: Eliezer Ram Consult Reason/Comments: pna Do you want consulting provider notified?: Yes 04/14/20 12:48 Consult Physician Urgent Consulting Provider: Richa Chow Consult Reason/Comments: high troponin Do you want consulting provider notified?: Yes Primary care physician: Vince Chavez [facility] Hospital Course: Discharge Diagnosis Acute encephalopathy- multiple etiology including infection(pneumonia), metabolic(hypoglycemia), drug overdose(morphine)- resolved Right lower lobe pneumonia/abscess status post 1.2 L of fluid drained Acute hypoxic respiratory failure Hypokalemia Acute hypoglycemia resolved New onset congestive heart failure, systolic and diastolic Pulmonary hypertension with RVSP of 46 Recent history of UTI Recent history of C. diff colitis Type 2 diabetes mellitus poorly controlled Status post cholecystectomy done 2 weeks back Hypertension Fibromyalgia Hyperlipidemia Chronic pain syndrome Depression Moderate protein calorie malnutrition Mild troponin elevation Lactic acidosis Hospital course Ms. Falcon is a 59-year-old female with a past medical history of diabetes mellitus, fibromyalgia, hyperlipidemia, chronic pain syndrome, degenerative disc disease coming to the hospital for altered mental status changes. Patient was recently in the hospital had cholecystectomy done and was discharged home on antibiotics for right lower lobe pneumonia. Patient was found to be lethargic by her case given her and so brought into the hospital. At the time of admission patient was found to have hypoglycemia she was given 3 ampules of D50. She was also given a dose of Narcan in the ED as a caregiver set patient up 2 tablets of 30 mg of morphine. She had a CAT scan of the abdomen and pelvis showing large multiloculated collection in the right lower lobe of the lung. Eventually patient had pleural fluid drained of 1.2 L from the right lung by Dr. Ram. She is started on antibiotics and admitted to the ICU. Patient's C. diff has been negative. 04/21/2020 patient seen in follow-up on selective care unit. Patient is awake, denies any difficulty breathing Pleural fluid cytologies from the right and left thoracentesis have been negative, she is status post bronchoscopy with BAL, and transbronchial needle aspirate of the right peritracheal/subcarinal lymph node, biopsy is pending. CT chest this morning was obtained and showed right middle lobe infrahilar loculated fluid collection mildly increased in size since 04/17/2020, and immediately adjacent inferior anterior multilocular fluid collection in the right middle lobe is mildly decreased small focus of loculated gas, 2 fluid collections may be contiguous in the findings likely represent abscess. There were moderate right and small left pleural effusions that decreased to previous CT chest. 04/22/2020 Patient is seen and evaluated in follow-up on the selective care unit. Patient had an episode of fall and claimed to have hit her head without any loss of consciousness; She remains awake and alert in no acute distress. She is maintaining good O2 saturations in the 90s on 2 L/m per nasal cannula. She's been afebrile. Bronchial alveolar lavage and wash of the right lung reveals no growth. Biopsies negative for malignancy. White count 7.9. Hemoglobin 9.7. Sodium 135. Potassium 2.6. Creatinine 0.35. Currently on vancomycin and Zosyn. Her pain is better controlled today. Stat CT of the head is done to follow-up on fall which is unremarkable for any acute changes 04/23/2020 Patient is seen in follow-up on the selective care unit. She is resting quite comfortably in bed. Awake and alert in no acute distress. Her pain is well managed. She was found on the floor yesterday. Computed tomography scan of the brain revealed no acute intracranial hemorrhage or midline shift. X-ray of the left elbow revealed no acute fracture or dislocation. White count 7.8. Hemoglobin 9.2. Sodium 139. Potassium 3.7. Creatinine 0.45. She remains on vancomycin and Zosyn; pulmonary/critical-care recommending to discontinue vancomycin. 04/24/2020 Patient is status post thoracentesis 1.2 L pleural fluid by pulmonary. Currently be continued on IV Lasix will be changed to by mouth. 2D echocardiogram showed ejection fraction 25 to 30% with severely impaired left ventricular systolic function and grade 2 diastolic dysfunction. Chest x-ray showed right lower lobe atelectasis and associated pleural effusion greater on the right than left. All pleural and bile cultures have been negative so far. Biopsy was nondiagnostic upper mass lesion or malignancy. Cytology showed no malignant cells. Patient remains clinically stable and continue with antibiotics as an outpatient. Patient is cleared from pulmonary and cardiology standpoint. - Exam HEAD: Normocephalic/atraumatic. EYES: Normal reaction of pupils, equal size. Conjunctiva pink, sclera white. NOSE: Clear with pink turbinates. THROAT: No erythema or exudates. NECK: No masses, no JVD, no thyroid enlargement, no adenopathy. CHEST: No chest wall deformity. Symmetrical expansion. LUNGS: Equal air entry with no crackles, wheeze, rhonchi or dullness. CVS: Regular rate and rhythm, normal S1 and S2, no gallops, no murmurs, no rubs ABDOMEN: Soft, nontender. No hepatosplenomegaly, normal bowel sounds, no guarding or rigidity. EXTREMITIES: No clubbing, no edema, no cyanosis, 2+ pulses and upper and lower extremities. Vital Signs Temp 98.6 F 04/24/20 11:53 Pulse 77 04/24/20 11:53 Resp 18 04/24/20 11:53 BP 119/69 04/24/20 11:53 Pulse Ox 94 L 04/24/20 11:53 Intake & Output 04/23/20 04/24/20 04/24/20 18:59 06:59 18:59 Intake Total 946 780 236 Balance 946 780 236 Weight 56.1 kg Intake: Oral 946 780 236 Other: # Voids 1 3 4 Time taken greater than 35 minutes Patient Condition at Discharge: Fair Plan - Discharge Summary New Discharge Prescriptions: New Aspirin 81 mg PO DAILY #30 chew Furosemide [Lasix] 20 mg PO BID@0900,1600 #60 tab Atorvastatin [Lipitor] 20 mg PO HS #30 tab Metoprolol Tartrate 25 mg PO BID #60 tab lisinopriL [Zestril] 5 mg PO DAILY #30 tab Continue Acetaminophen [Tylenol] 1,000 mg PO DAILY PRN PRN Reason: Fever And/ Or Pain DULoxetine HCL [Cymbalta] 30 mg PO DAILY Insulin NPH Hum/Reg Insulin Hm [Novolin 70-30 Flexpen] 22 units SQ BID- W/MEALS metFORMIN HCL [Glucophage] 1,000 mg PO Q12H Loperamide [Imodium] 2 mg PO QID #30 cap Gabapentin [Neurontin] 100 mg PO QAM #6 cap Gabapentin [Neurontin] 200 mg PO HS #3 cap HYDROcodone/APAP 10-325MG [[place] 10-325] 1 tab PO Q6H PRN #6 tab PRN Reason: Pain Cholestyramine (with Sugar) [Questran Packet] 4 gm PO TID #30 packet Discontinued Cefuroxime Axetil [Ceftin] 500 mg PO BID 5 Days #10 tab Discharge Medication List Acetaminophen [Tylenol] 1,000 mg PO DAILY PRN 03/12/20 [History] DULoxetine HCL [Cymbalta] 30 mg PO DAILY 03/12/20 [History] Insulin NPH Hum/Reg Insulin Hm [Novolin 70-30 Flexpen] 22 units SQ BID-W/MEALS 03/12/20 [History] metFORMIN HCL [Glucophage] 1,000 mg PO Q12H 03/12/20 [History] Cholestyramine (with Sugar) [[place] Packet] 4 gm PO TID #30 packet 04/12/20 [Rx] Gabapentin [Neurontin] 100 mg PO QAM #6 cap 04/12/20 [Rx] Gabapentin [Neurontin] 200 mg PO HS #3 cap 04/12/20 [Rx] HYDROcodone/APAP 10-325MG [[place] 10-325] 1 tab PO Q6H PRN #6 tab 04/12/20 [Rx] Loperamide [Imodium] 2 mg PO QID #30 cap 04/12/20 [Rx] Aspirin 81 mg PO DAILY #30 chew 04/24/20 [Rx] Atorvastatin [Lipitor] 20 mg PO HS #30 tab 04/24/20 [Rx] Furosemide [Lasix] 20 mg PO BID@0900,1600 #60 tab 04/24/20 [Rx] Metoprolol Tartrate 25 mg PO BID #60 tab 04/24/20 [Rx] lisinopriL [Zestril] 5 mg PO DAILY #30 tab 04/24/20 [Rx] Follow up Appointment(s)/Referral(s): Josep Lundy MD [STAFF PHYSICIAN] - 1 Week (Will call with follow-up.) Vince Marcos III, MD [Primary Care Provider] - 1-2 days (please call to make follow-up appt. ) Sirena [facility], [NON-STAFF] - 1 Week Eliezer Ram MD [STAFF PHYSICIAN] - 1 Week (Will call for follow-up appt.) Patient Instructions/Handouts: Pneumonia (DC) Discharge Disposition: HOME WITH HOME HEALTH SERVICES
== END 2020-04-24 17:47 | disposition home health service (06) | DRG 177 ==
LOC: EC 09:25 → 3SCARD 13:37 → 2SICU 14:37 → 3SCARD 04-19 16:48
PROVIDERS: ADMIT Internal Medicine; ATTEND Internal Medicine
PROC: 0W993ZX Drainage of Right Pleural Cavity, Percutaneous Approach, Diagnostic (ICD-10-PCS; 2020-04-14)
PROC: 0W993ZZ Drainage of Right Pleural Cavity, Percutaneous Approach (ICD-10-PCS; 2020-04-17)
PROC: 0W9B3ZX Drainage of Left Pleural Cavity, Percutaneous Approach, Diagnostic (ICD-10-PCS; 2020-04-18)
PROC: 0B9F8ZX Drainage of Right Lower Lung Lobe, Via Natural or Artificial Opening Endoscopic, Diagnostic (ICD-10-PCS; principal; 2020-04-20 12:30)
PROC: 07D78ZX Extraction of Thorax Lymphatic, Via Natural or Artificial Opening Endoscopic, Diagnostic (ICD-10-PCS; principal; 2020-04-20 12:30)
DX: J85.1 Abscess of lung with pneumonia (principal); J15.6 Pneumonia due to other Gram-negative bacteria; J96.01 Acute respiratory failure with hypoxia; G93.41 Metabolic encephalopathy; I50.43 Acute on chronic combined systolic (congestive) and diastolic (congestive) heart failure; J15.20 Pneumonia due to staphylococcus, unspecified; J91.8 Pleural effusion in other conditions classified elsewhere; E44.0 Moderate protein-calorie malnutrition; R64 Cachexia; E87.2 Acidosis; I42.9 Cardiomyopathy, unspecified; E11.649 Type 2 diabetes mellitus with hypoglycemia without coma; I27.20 Pulmonary hypertension, unspecified; L89.152 Pressure ulcer of sacral region, stage 2; I11.0 Hypertensive heart disease with heart failure; E11.40 Type 2 diabetes mellitus with diabetic neuropathy, unspecified; E11.65 Type 2 diabetes mellitus with hyperglycemia; Z79.4 Long term (current) use of insulin; T40.2X1A Poisoning by other opioids, accidental (unintentional), initial encounter; Z20.828 Contact with and (suspected) exposure to other viral communicable diseases; I95.9 Hypotension, unspecified; Y95 Nosocomial condition; E87.6 Hypokalemia; K52.9 Noninfective gastroenteritis and colitis, unspecified; G89.4 Chronic pain syndrome; M79.7 Fibromyalgia; E78.5 Hyperlipidemia, unspecified; M54.40 Lumbago with sciatica, unspecified side; M60.9 Myositis, unspecified; G47.00 Insomnia, unspecified; F32.9 Major depressive disorder, single episode, unspecified; R26.9 Unspecified abnormalities of gait and mobility; R79.89 Other specified abnormal findings of blood chemistry; R74.8 Abnormal levels of other serum enzymes; Z68.21 Body mass index [BMI] 21.0-21.9, adult; Z79.899 Other long term (current) drug therapy; Z78.1 Physical restraint status; Z87.891 Personal history of nicotine dependence; Z90.49 Acquired absence of other specified parts of digestive tract; Z87.19 Personal history of other diseases of the digestive system; Z87.42 Personal history of other diseases of the female genital tract; Z87.440 Personal history of urinary (tract) infections; Z86.19 Personal history of other infectious and parasitic diseases; Z87.01 Personal history of pneumonia (recurrent); Z86.69 Personal history of other diseases of the nervous system and sense organs; Z98.51 Tubal ligation status; Z98.890 Other specified postprocedural states; Z88.8 Allergy status to other drugs, medicaments and biological substances; Z82.5 Family history of asthma and other chronic lower respiratory diseases; Z80.49 Family history of malignant neoplasm of other genital organs; Z81.1 Family history of alcohol abuse and dependence
CPT/HCPCS: 31624; 31629; 36415; 70450; 71045; 71046; 71250; 71260; 74177; 80048; 80053; 80202; 80306; 81003; 82140; 82565; 82945; 83036; 83605; 83615; 84132; 84157; 84484; 85025; 85027; 85610; 85730; 87040; 87070; 87102; 87116; 87205; 87206; 87252; 87324; 87496; 87498; 87502; 87529; 87634; 87798; 88108; 88173; 88305; 89050; 93005; 93306; 94640; 96360; 96361; 96365; 96366; 96368; 96374; 96375; 96376; 99291

== ENCOUNTER 2020-09-14 22:19 | Emergency (ER) | payer MEDICARE ==
[2020-09-14 22:24] VITALS: RESP 18; TEMP 98.3
--- NOTE | 2020-09-14 23:07 | XR ---
EXAMINATION TYPE: XR Hip RT and AP Pelvis DATE OF EXAM: 09/14/2020 COMPARISON: NONE HISTORY: Right hip pain TECHNIQUE: 2 views FINDINGS: There is slight irregular cortex on the greater trochanter that could be a nondisplaced chi p fracture. The femoral neck appears intact. Acetabulum appears intact. IMPRESSION: Possible nondisplaced chip fracture of the greater trochanter of the right femur.
[2020-09-14] MEDS ORDERED: ACET/COD 300 MG/30 MG STARTER PACK 6 TAB BTL PO STA (23:22)
[2020-09-14] MEDS ORDERED: Acetaminophen-Codeine 300-30mg TAB PO STA (23:22)
[2020-09-14] MEDS ORDERED: KETOROLAC 15 MG/ML 1 ML VIAL IM STA (23:22)
[2020-09-14] MEDS ORDERED: IBUPROFEN 600 MG STARTER PACK 4 TAB BTL PO STA (23:23)
--- NOTE | 2020-09-14 23:30 | ED ---
Fall HPI - General Chief Complaint: Fall Stated Complaint: Fall, rt hip pain Time Seen by Provider: 09/14/20 22:21 Source: lead cook, RN notes reviewed, old records reviewed Mode of arrival: EMS Limitations: no limitations - History of Present Illness Initial Comments: This is a 60-year-old female presenting status post fall. Patient did have a fall she states she has multiple falls and her legs go out she fell landing on her right hip right leg is able to move the leg was able to crawl negative for in called ambulance but is having pain in that right hip especially with movement although again she can move that hip. She denies anything being broke but thinks that she may have a bad bruise. No other injuries she did not hit her head no loss of bowel or bladder, no headache chest pain shortness of breath or abdominal pain MD Complaint: fall -: minutes(s) Fall From: standing When Fall Occurred: 1 hour FISHER Fall Witnessed: no Place Fall Occurred: home Loss of Consciousness: none Prolonged Down Time?: no Symptoms Prior to Fall: none Location: pelvis Severity: moderate Severity scale (1-10): 5 Quality: sharp Context: tripped/slipped Associated Symptoms: denies - Related Data Home Medications Medication Instructions Recorded Confirmed Acetaminophen [Tylenol] 1,000 mg PO DAILY PRN 03/12/20 04/14/20 DULoxetine HCL [Cymbalta] 30 mg PO DAILY 03/12/20 04/14/20 Insulin NPH Hum/Reg Insulin Hm 22 units SQ BID-W/MEALS 03/12/20 04/14/20 [Novolin 70-30 Flexpen] metFORMIN HCL [Glucophage] 1,000 mg PO Q12H 03/12/20 04/14/20 Previous Rx's Medication Instructions Recorded Cholestyramine (with Sugar) 4 gm PO TID #30 packet 04/12/20 [Questran Packet] Gabapentin [Neurontin] 100 mg PO QAM #6 cap 04/12/20 Gabapentin [Neurontin] 200 mg PO HS #3 cap 04/12/20 HYDROcodone/APAP 10-325MG [[place] 1 tab PO Q6H PRN #6 tab 04/12/20 10-325] Loperamide [Imodium] 2 mg PO QID #30 cap 04/12/20 Aspirin 81 mg PO DAILY #30 chew 04/24/20 Atorvastatin [Lipitor] 20 mg PO HS #30 tab 04/24/20 Furosemide [Lasix] 20 mg PO BID@0900,1600 #60 tab 04/24/20 Metoprolol Tartrate 25 mg PO BID #60 tab 04/24/20 lisinopriL [Zestril] 5 mg PO DAILY #30 tab 04/24/20 Allergies Allergy/AdvReac Type Severity Reaction Status Date / Time pregabalin [From Lyrica] AdvReac Swelling Verified 09/14/20 22:23 trazodone AdvReac Unknown Verified 09/14/20 22:23 Review of Systems ROS Statement: Those systems with pertinent positive or pertinent negative responses have been documented in the HPI. ROS Other: All systems not noted in ROS Statement are negative. Past Medical History Past Medical History: Diabetes Mellitus, Fibromyalgia, Hyperlipidemia Additional Past Medical History / Comment(s): myalgia, myositis, sciatica, chronic pain syndrome, vaginitis, otalgia, fatigue, malaise, UTI, microscopic hematuria, tachycardia, insomnia, lumbago, degenerative disc, colitis History of Any Multi-Drug Resistant Organisms: C-DIFF Date of last positivie culture/infection: February 15 2020 MDRO Source:: stool Past Surgical History: Orthopedic Surgery, Tubal Ligation Additional Past Surgical History / Comment(s): left wrist Past Anesthesia/Blood Transfusion Reactions: No Reported Reaction Past Psychological History: Depression Smoking Status: Current every day smoker Past Alcohol Use History: None Reported Past Drug Use History: None Reported - Past Family History Mother Family Medical History: Cancer, COPD Additional Family Medical History / Comment(s): cervical cancer Father Additional Family Medical History / Comment(s): etoh abuse General Exam Limitations: no limitations General appearance: alert, in no apparent distress Head exam: Present: atraumatic, normocephalic, normal inspection Eye exam: Present: normal appearance, PERRL, EOMI. Absent: scleral icterus, conjunctival injection, periorbital swelling ENT exam: Present: normal exam, mucous membranes moist Neck exam: Present: normal inspection. Absent: tenderness, meningismus, lymphadenopathy Respiratory exam: Present: normal lung sounds bilaterally. Absent: respiratory distress, wheezes, rales, rhonchi, stridor Cardiovascular Exam: Present: regular rate, normal rhythm, normal heart sounds. Absent: systolic murmur, diastolic murmur, rubs, gallop, clicks GI/Abdominal exam: Present: soft, normal bowel sounds. Absent: distended, tenderness, guarding, rebound, rigid Extremities exam: Present: normal inspection, full ROM, tenderness (Right hip tenderness), normal capillary refill. Absent: pedal edema, joint swelling, calf tenderness Back exam: Present: normal inspection Neurological exam: Present: alert, oriented X3, CN II-XII intact Psychiatric exam: Present: normal affect, normal mood Skin exam: Present: warm, dry, intact, normal color. Absent: rash Course Vital Signs 09/14/20 22:21 Temperature 98.3 F Pulse Rate 80 Respiratory 18 Rate Blood Pressure 95/67 O2 Sat by Pulse 100 Oximetry - Reevaluation(s) Reevaluation #1: 09/14/20 23:26 Medical record is reviewed Reevaluation #2: 09/14/20 23:26 Patient informed of results of findings here in the ER 09/14/20 23:26 Patient still is able to ambulate Reevaluation #3: 09/14/20 23:26 Patient's pain is currently controlled Medical Decision Making - Medical Decision Making 60 female DF for evaluation by trochanteric pain. Possible rate controlled fractures no significant history of chronic pain control patient can be discharged home Disposition Clinical Impression: Fall, Fracture of greater trochanter of right femur Disposition: HOME SELF-CARE Condition: Good Instructions (If sedation given, give patient instructions): Fall Prevention for Older Adults (ED), Avulsion Fracture (ED) Is patient prescribed a controlled substance at d/c from ED?: No Referrals: Vince Marcos III, MD [Primary Care Provider] - 1-2 days Juancho Potter MD [STAFF PHYSICIAN] - 1-2 days
[2020-09-14 23:47] VITALS: BP 121/80; PULSE 81
== END 2020-09-15 00:49 | disposition home or self-care (01) ==
LOC: EC 22:19
DX: S72.111A Displaced fracture of greater trochanter of right femur, initial encounter for closed fracture (principal); E11.9 Type 2 diabetes mellitus without complications; M79.7 Fibromyalgia; F32.9 Major depressive disorder, single episode, unspecified; F17.200 Nicotine dependence, unspecified, uncomplicated; Z79.4 Long term (current) use of insulin; Z79.899 Other long term (current) drug therapy; W18.30XA Fall on same level, unspecified, initial encounter; Y92.009 Unspecified place in unspecified non-institutional (private) residence as the place of occurrence of the external cause
CPT/HCPCS: 73502; 99284; 96372; J1885

== ENCOUNTER 2021-01-10 | Observation (INO) | payer MEDICARE | END 2021-01-13 16:27 | disposition home or self-care (01) | PROVIDERS: ADMIT Hospitalist | DX: E11.00 Type 2 diabetes mellitus with hyperosmolarity without nonketotic hyperglycemic-hyperosmolar coma (NKHHC) (principal); E87.1 Hypo-osmolality and hyponatremia; Z91.19 Patient's noncompliance with other medical treatment and regimen; Z20.822 Contact with and (suspected) exposure to COVID-19; R63.1 Polydipsia; M79.7 Fibromyalgia; E78.5 Hyperlipidemia, unspecified; M19.90 Unspecified osteoarthritis, unspecified site; M60.9 Myositis, unspecified; G89.4 Chronic pain syndrome; R53.83 Other fatigue; R53.81 Other malaise; G47.00 Insomnia, unspecified; F32.9 Major depressive disorder, single episode, unspecified; E43 Unspecified severe protein-calorie malnutrition; Z68.1 Body mass index [BMI] 19.9 or less, adult; I10 Essential (primary) hypertension; F17.200 Nicotine dependence, unspecified, uncomplicated; E87.6 Hypokalemia; M54.40 Lumbago with sciatica, unspecified side; R19.7 Diarrhea, unspecified; R00.0 Tachycardia, unspecified; Z79.4 Long term (current) use of insulin; Z79.899 Other long term (current) drug therapy; Z87.440 Personal history of urinary (tract) infections; Z88.8 Allergy status to other drugs, medicaments and biological substances; Z88.2 Allergy status to sulfonamides; Z90.49 Acquired absence of other specified parts of digestive tract; Z87.42 Personal history of other diseases of the female genital tract; Z86.19 Personal history of other infectious and parasitic diseases; Z87.19 Personal history of other diseases of the digestive system; Z82.5 Family history of asthma and other chronic lower respiratory diseases; Z80.49 Family history of malignant neoplasm of other genital organs | CPT/HCPCS: 96376; 96361 ×2; 96365; 96366 ×2; 96375; 99285; 36415; 93005; 97530 ×2; 97162; 97166; 80053; 80048 ×2; 82009; 83605; 83735 ×3; 84132; 84484 ×2; 85025 ×3; 81001; 83036; 87635; 71046; 71260; 74177; G0378 ×4; J3475 ×2; J1885 ×2; C9113 ×2; Q9967; 96360 ==

== ENCOUNTER 2021-03-17 21:09 | Emergency (ER) | payer MEDICARE ==
[2021-03-17 21:18] VITALS: RESP 18; TEMP 98
[2021-03-17] MEDS ORDERED: MORPHINE SULFATE 4 MG/ML SYRINGE IM STA (21:34)
--- NOTE | 2021-03-17 21:42 | ED ---
Fall HPI - General Chief Complaint: Fall Stated Complaint: Fall Time Seen by Provider: 03/17/21 21:15 Source: patient, EMS, RN notes reviewed, old records reviewed Mode of arrival: EMS Limitations: no limitations - History of Present Illness Initial Comments: This is a 60-year-old female who presents today for evaluation regards to fall. She is having fall with left hip pain and injury. Pain in the left hip down the left knee. She also admits to hitting her head. No loss of consciousness no blood thinners. Patient does walk with a walker most mechanical. Patient denying any other complaints of headache chest pain shortness breath or abdominal pain. MD Complaint: fall -: hour(s) Fall From: standing When Fall Occurred: 1 hour ANESTHESIOLOGY RESIDENT Fall Witnessed: no Place Fall Occurred: home Loss of Consciousness: none Prolonged Down Time?: no Symptoms Prior to Fall: none Location: head Location - Extremities: Left: Thigh Severity: moderate Severity scale (1-10): 4 Quality: dull Context: tripped/slipped Associated Symptoms: denies - Related Data Home Medications Medication Instructions Recorded Confirmed DULoxetine HCL [Cymbalta] 30 mg PO DAILY 03/12/20 01/10/21 Insulin NPH Hum/Reg Insulin Hm 22 units SQ BID-W/MEALS 03/12/20 01/10/21 [Novolin 70-30 Flexpen] metFORMIN HCL [Glucophage] 1,000 mg PO BID 03/12/20 01/10/21 Atorvastatin [Lipitor] 20 mg PO DAILY 01/10/21 01/10/21 Carvedilol [Coreg] 3.125 mg PO BID 01/10/21 01/10/21 Furosemide [Lasix] 40 mg PO BID 01/10/21 01/10/21 Gabapentin [Neurontin] 100 mg PO DAILY 01/10/21 01/10/21 Ibuprofen [Motrin] 800 mg PO Q8H PRN 01/10/21 01/10/21 Ibuprofen/Diphenhydramine HCl 1 cap PO HS PRN 01/10/21 01/10/21 [Advil Pm Liqui-Gels] Pantoprazole Sodium 40 mg PO DAILY 01/10/21 01/10/21 Spironolactone [Aldactone] 25 mg PO DAILY 01/10/21 01/10/21 hydrOXYzine HCL [Atarax] 25 - 50 mg PO HS PRN 01/10/21 01/10/21 Previous Rx's Medication Instructions Recorded Gabapentin [Neurontin] 200 mg PO HS #3 cap 04/12/20 HYDROcodone/APAP 10-325MG [[place] 1 tab PO Q6H PRN #6 tab 04/12/20 10-325] lisinopriL [Zestril] 5 mg PO DAILY #30 tab 04/24/20 Magnesium Oxide 400 mg PO AC-BID #60 tablet 01/13/21 Allergies Allergy/AdvReac Type Severity Reaction Status Date / Time pregabalin [From Lyrica] AdvReac Swelling Verified 03/17/21 21:18 trazodone AdvReac Unknown Verified 03/17/21 21:18 Review of Systems ROS Statement: Those systems with pertinent positive or pertinent negative responses have been documented in the HPI. ROS Other: All systems not noted in ROS Statement are negative. Past Medical History Past Medical History: Diabetes Mellitus, Fibromyalgia, Hyperlipidemia, Osteoarthritis (OA) Additional Past Medical History / Comment(s): myalgia, myositis, sciatica, chronic pain syndrome, vaginitis, otalgia, fatigue, malaise, UTI, microscopic hematuria, tachycardia, insomnia, lumbago, degenerative disc, colitis History of Any Multi-Drug Resistant Organisms: C-DIFF Date of last positivie culture/infection: February 15 2020 MDRO Source:: stool Past Surgical History: Cholecystectomy, Orthopedic Surgery, Tubal Ligation Additional Past Surgical History / Comment(s): left wrist Past Anesthesia/Blood Transfusion Reactions: No Reported Reaction Past Psychological History: Depression Smoking Status: Current every day smoker Past Alcohol Use History: None Reported Past Drug Use History: None Reported - Past Family History Mother Family Medical History: Cancer, COPD Additional Family Medical History / Comment(s): cervical cancer Father Additional Family Medical History / Comment(s): etoh abuse General Exam Limitations: no limitations General appearance: alert, in no apparent distress Head exam: Present: atraumatic, normocephalic, normal inspection Eye exam: Present: normal appearance, PERRL, EOMI. Absent: scleral icterus, conjunctival injection, periorbital swelling ENT exam: Present: normal exam, mucous membranes moist Neck exam: Present: normal inspection. Absent: tenderness, meningismus, lymphadenopathy Respiratory exam: Present: normal lung sounds bilaterally. Absent: respiratory distress, wheezes, rales, rhonchi, stridor Cardiovascular Exam: Present: regular rate, normal rhythm, normal heart sounds. Absent: systolic murmur, diastolic murmur, rubs, gallop, clicks GI/Abdominal exam: Present: soft, normal bowel sounds. Absent: distended, tenderness, guarding, rebound, rigid Extremities exam: Present: normal inspection, full ROM, normal capillary refill. Absent: tenderness, pedal edema, joint swelling, calf tenderness Back exam: Present: normal inspection Neurological exam: Present: alert, oriented X3, CN II-XII intact Psychiatric exam: Present: normal affect, normal mood Skin exam: Present: warm, dry, intact, normal color. Absent: rash Course Vital Signs 03/17/21 03/17/21 21:10 22:45 Temperature 98.0 F Pulse Rate 99 96 Respiratory 18 18 Rate Blood Pressure 157/102 138/91 O2 Sat by Pulse 97 96 Oximetry - Reevaluation(s) Reevaluation #1: 03/17/21 23:50 Medical record is reviewed Reevaluation #2: 03/17/21 23:50 Pain is improved here in the ER Reevaluation #3: 03/17/21 23:50 Patient informed results and questions answered Medical Decision Making - Medical Decision Making 60 female DF for evaluation mechanical fall. Patient has left hip contusion no fracture. X-rays negative. Patient can be discharged home. She is able to ambulate - Radiology Data Radiology results: report reviewed (CT brain C-spine chest and pelvis x-ray including left hip are negative for traumatic injury), image reviewed Disposition Clinical Impression: Fall, Contusion of left hip Disposition: HOME SELF-CARE Condition: Good Instructions (If sedation given, give patient instructions): Fall Prevention for Older Adults (ED), Hip Contusion (ED) Is patient prescribed a controlled substance at d/c from ED?: No Referrals: Vince Marcos III, MD [Primary Care Provider] - 1-2 days
--- NOTE | 2021-03-17 21:58 | CT ---
EXAMINATION TYPE: CT brain cspine wo con DATE OF EXAM: 03/17/2021 COMPARISON: CT brain 04/22/2020 HISTORY: FALL CT DLP: 1200.5 mGycm Automated exposure control for dose reduction was used. Exam performed with no contrast. Ventricles have normal size. There is no mass effect nor midline shift. There is no sign of intracran ial hemorrhage. The calvarium is intact. Skull base is intact. There is normal aeration of the mastoi d sinuses. Cervical vertebra have normal alignment. There is some mild narrowing and spur formation at C5-6 and C6-7. Facet joints are intact. There is no compression fracture. Prevertebral soft tissues are intact . IMPRESSION: Negative CT scan of the brain. No change. Mild degenerative disc changes in the lower cervical spine. No fracture. Pulmonary emphysema noted at the lung apices.
--- NOTE | 2021-03-17 22:01 | XR ---
EXAMINATION TYPE: XR chest 1V DATE OF EXAM: 03/17/2021 COMPARISON: 01/10/2021 HISTORY: Fall. Pain. TECHNIQUE: Theresa view FINDINGS: Heart and mediastinum are normal. Lungs are clear. Diaphragm is normal. Bony thorax is inta ct. IMPRESSION: No active cardiopulmonary disease. No adverse change.
--- NOTE | 2021-03-17 22:02 | XR ---
EXAMINATION TYPE: XR Hip LT and AP Pelvis DATE OF EXAM: 03/17/2021 COMPARISON: 09/14/2020 HISTORY: Pain. Fall. TECHNIQUE: 3 views FINDINGS: The pelvic ring is intact. Proximal left femur and hip joint appear intact. I see no sign o f hip dysplasia. Sacroiliac joints are intact. IMPRESSION: No acute abnormality of the pelvis and left hip.
[2021-03-17] MEDS ORDERED: ACET/COD 300 MG/30 MG STARTER PACK 6 TAB BTL PO STA (22:40)
[2021-03-17 23:01] VITALS: BP 138/91; PULSE 96
== END 2021-03-17 22:45 | disposition home or self-care (01) ==
LOC: EC 21:09
DX: S70.02XA Contusion of left hip, initial encounter (principal); M79.7 Fibromyalgia; E78.5 Hyperlipidemia, unspecified; E11.9 Type 2 diabetes mellitus without complications; F17.200 Nicotine dependence, unspecified, uncomplicated; Z88.8 Allergy status to other drugs, medicaments and biological substances; Z79.899 Other long term (current) drug therapy; Z79.4 Long term (current) use of insulin; W01.0XXA Fall on same level from slipping, tripping and stumbling without subsequent striking against object, initial encounter; Y92.009 Unspecified place in unspecified non-institutional (private) residence as the place of occurrence of the external cause
CPT/HCPCS: 73502; 71045; 72125; 70450; 99284; 96372; J2270

== ENCOUNTER 2021-06-04 15:14 | Inpatient (IN) | payer MEDICARE ==
[2021-06-04 16:47] LABS: Basophils % (A) 0 %; Eosinophils # (A) 0.1 k/uL (0-0.7); Eosinophils % (A) 0 %; HCT 37.7 % (34.0-46.0); HGB 11.4 gm/dL (11.4-16.0); Hypochromasia Slight; Lymphocytes # (A) 1.3 k/uL (1.0-4.8); Lymphocytes % (A) 12 %; MCH 28.9 pg (25.0-35.0); MCHC 30.3 g/dL (31.0-37.0); MCV 95.4 fL (80.0-100.0); Mean Platelet Volume 8.1; Monocytes # (A) 0.7 k/uL (0-1.0); Monocytes % (A) 6 %; Neutrophils # (A) 8.8 k/uL (1.3-7.7); Neutrophils % (A) 80 %; Platelet Count 192 k/uL (150-450); RBC 3.96 m/uL (3.80-5.40); RDW 14.2 % (11.5-15.5)
[2021-06-04 16:55] LABS: ALT 16 U/L (4-34); AST 34 U/L (14-36); African American GFR (CKD) >90 (>60 ml/min/1.73 sqM); Alkaline Phosphatase 133 U/L (38-126); Anion Gap 8 mmol/L; Blood Urea Nitrogen 18 mg/dL (7-17); Calcium 8.5 mg/dL (8.4-10.2); Carbon Dioxide 26 mmol/L (22-30); Chloride 90 mmol/L (98-107); Non-African American GFR(CKD) >90 (>60 ml/min/1.73 sqM); Potassium 3.6 mmol/L (3.5-5.1); Sodium 124 mmol/L (137-145); Total Bilirubin 0.9 mg/dL (0.2-1.3); Total Protein 6.1 g/dL (6.3-8.2)
[2021-06-04 17:04] LABS: Glucose 794 mg/dL (74-99)
[2021-06-04] MEDS ORDERED: HYDROmorphone 0.5 MG/0.5 ML SYRINGE IVP STA (17:41)
[2021-06-04] MEDS ORDERED: SODIUM CHLORIDE 0.9% 1,000 ML IV ONE (17:41)
--- NOTE | 2021-06-04 17:47 | ED ---
General Adult HPI - General Source: patient, family, RN notes reviewed, old records reviewed Mode of arrival: ambulatory Limitations: no limitations - History of Present Illness -: days(s) (1) Location: left, lower extremity Radiation: non-radiation Severity scale (1-10): 10 Quality: constant Consistency: constant Improves with: none Worsens with: movement Associated Symptoms: denies other symptoms Treatments Prior to Arrival: none <Madan Johnson - Last Filed: 06/04/21 23:51> <Bettie Arriaga - Last Filed: 06/10/21 01:09 EDT> - General Chief complaint: Extremity Injury, Lower Stated complaint: Leg pain,swelling Time Seen by Provider: 06/04/21 17:10 - History of Present Illness Initial comments: This is a 61-year-old female, alert and oriented 4, presents to the emergency room with complaints of left leg pain after falling out of bed last night. Patient states that her bed is high and she fell out of the bed landing on her knees. She states later in the evening she noticed her left leg was starting to swell. She was able to bear some weight. Today she noticed that the swelling has increased up to her knee. She states that the pain is a "50" out of 10. She states that she did not take her diabetes medications today because she did n't eat anything today. She has a low-grade fever upon arrival to the ER 100.0. She does have a history of falls, anemia and insulin-dependent diabetes. She is a half a pack a day smoker. (Madan Johnson) - Related Data Home Medications Medication Instructions Recorded Confirmed DULoxetine HCL [Cymbalta] 30 mg PO DAILY 03/12/20 06/04/21 metFORMIN HCL [Glucophage] 1,000 mg PO BID 03/12/20 06/04/21 Atorvastatin [Lipitor] 20 mg PO DAILY 01/10/21 06/04/21 Pantoprazole Sodium 40 mg PO DAILY 01/10/21 06/04/21 hydrOXYzine HCL [Atarax] 25 - 50 mg PO HS PRN 01/10/21 06/04/21 Aspirin EC [Ecotrin Low Dose] 81 mg PO DAILY 06/05/21 06/05/21 Previous Rx's Medication Instructions Recorded Magnesium Oxide 400 mg PO AC-BID #60 tablet 01/13/21 Cephalexin [Keflex] 500 mg PO Q12HR 7 Days #14 cap 06/06/21 Nicotine 14Mg/24Hr Patch [Habitrol] 1 patch TRANSDERM DAILY #4 patch 06/06/21 Furosemide [Lasix] 40 mg PO DAILY tab 06/08/21 Gabapentin [Neurontin] 100 mg PO DAILY #3 cap 06/08/21 Gabapentin [Neurontin] 200 mg PO HS #3 cap 06/08/21 HYDROcodone/APAP 10-325MG [[place] 1 tab PO Q6H PRN #6 tab 06/08/21 10-325] Insuln Asp Prt/Insulin Aspart 10 unit SQ AC-SUPPER ml 06/08/21 [NovoLOG MIX 70-30 VIAL] Insuln Asp Prt/Insulin Aspart 15 unit SQ AC-BRKFST ml 06/08/21 [NovoLOG MIX 70-30 VIAL] Metoprolol Succinate (ER) [Toprol 25 mg PO DAILY #30 tablet 06/08/21 XL] Nystatin 100,000Unit/gm Cream 1 applic TOPICAL BID gm 06/08/21 [Mycostatin Cream] Spironolactone [Aldactone] 25 mg PO DAILY #0 tab 06/08/21 lisinopriL [Zestril] 5 mg PO DAILY #30 tab 06/08/21 Allergies Allergy/AdvReac Type Severity Reaction Status Date / Time pregabalin [From Lyrica] AdvReac Swelling Verified 06/04/21 21:36 trazodone AdvReac Unknown Verified 06/04/21 21:36 Review of Systems ROS Other: All systems not noted in ROS Statement are negative. <Madan Johnson - Last Filed: 06/04/21 23:51> ROS Other: All systems not noted in ROS Statement are negative. <Bettie Arriaga - Last Filed: 06/10/21 01:09 EDT> ROS Statement: Those systems with pertinent positive or pertinent negative responses have been documented in the HPI. Past Medical History Past Medical History: Diabetes Mellitus, Fibromyalgia, Hyperlipidemia, Osteoarthritis (OA) Additional Past Medical History / Comment(s): myalgia, myositis, sciatica, chronic pain syndrome, vaginitis, otalgia, fatigue, malaise, UTI, microscopic hematuria, tachycardia, insomnia, lumbago, degenerative disc, colitis History of Any Multi-Drug Resistant Organisms: C-DIFF Date of last positivie culture/infection: February 15 2020 MDRO Source:: stool Past Surgical History: Cholecystectomy, Orthopedic Surgery, Tubal Ligation Additional Past Surgical History / Comment(s): left wrist Past Anesthesia/Blood Transfusion Reactions: No Reported Reaction Past Psychological History: Depression Smoking Status: Current every day smoker Past Alcohol Use History: None Reported Past Drug Use History: None Reported - Past Family History Mother Family Medical History: Cancer, COPD Additional Family Medical History / Comment(s): cervical cancer Father Additional Family Medical History / Comment(s): etoh abuse <Madan Johnson - Last Filed: 06/04/21 23:51> General Exam Limitations: no limitations General appearance: alert, in no apparent distress Head exam: Present: atraumatic, normocephalic, normal inspection Eye exam: Present: normal appearance, EOMI ENT exam: Present: mucous membranes dry, other (Nicotine stained tongue) Neck exam: Present: normal inspection, full ROM. Absent: tenderness, meningismus, lymphadenopathy, thyromegaly Respiratory exam: Present: normal lung sounds bilaterally. Absent: respiratory distress, wheezes, rales, rhonchi, stridor, chest wall tenderness, accessory muscle use, decreased breath sounds Cardiovascular Exam: Present: regular rate, normal rhythm, normal heart sounds. Absent: systolic murmur, diastolic murmur, rubs, gallop, clicks GI/Abdominal exam: Present: soft, normal bowel sounds. Absent: distended, tenderness, guarding, rebound, rigid Left Hip exam: Present: pelvic stability. Absent: tenderness, swelling, external rotation, internal rotation, shortening Upper Leg exam: Present: swelling Knee exam: Present: swelling, full knee extension. Absent: tenderness, ecchymosis Lower Leg exam: Present: tenderness, swelling Ankle exam: Present: tenderness, swelling Foot/Toe exam: Present: tenderness, swelling, ecchymosis (Plantar surface of the foot and around the calcaneus) Neurovascular tendon exam: Absent: abnormal cap refill, extremity cold to touch, foot drop Back exam: Present: normal inspection. Absent: tenderness, CVA tenderness (R), CVA tenderness (L), rash noted Neurological exam: Present: alert, oriented X3, CN II-XII intact Psychiatric exam: Present: normal affect, normal mood Skin exam: Present: warm, dry, intact, normal color. Absent: rash, cyanosis, diaphoretic <Madan Johnson - Last Filed: 06/04/21 23:51> Course Vital Signs 06/04/21 06/04/21 16:24 19:27 Temperature 100.0 F H Pulse Rate 91 93 Respiratory 18 16 Rate Blood Pressure 104/68 120/71 O2 Sat by Pulse 98 93 L Oximetry Medical Decision Making - Lab Data Result diagrams: 06/04/21 16:36 06/04/21 16:36 <Madan Johnson - Last Filed: 06/04/21 23:51> - Lab Data Result diagrams: 06/09/21 07:34 06/09/21 07:34 <Bettie Arriaga - Last Filed: 06/10/21 01:09 EDT> - Medical Decision Making 61-year-old female patient, alert and oriented 4, presents to the ER after falling out of bed last night. There is swelling to her left leg and bruising to the plantar surface of the left foot and ankle. X-ray of the left foot and ankle show soft tissue edema without displaced fracture. There is soft tissue edema surrounding the ankle. There is no evidence for DVT of the left leg the ultrasound. There is extensive interstitial edema. Patient sodium is 124, her glucose is 794, she did not take her medications today because she did not eat. Patient was given IV fluids. She will be admitted to the hospital with orthopedics on consult. Started antibiotics in the emergency room for cellulitis of her left leg. Patient is agreeable to this plan of care. I did discuss this case with Dr. Arriaga. (Madan Johnson) I was available for consultation in the emergency department. The history and physical exam were done by the midlevel provider. I was consulted for this patients care. I reviewed the case with the midlevel provider and based on their presentation of the patient, I agree with the assessment, medical decision making and plan of care as documented. Chart was dictated using [employer] dictation software. Attempts were made to correct any dictation errors however some typographical errors may persist. (Bettie Arriaga) - Lab Data Lab Results 06/04/21 06/04/21 06/04/21 Range/Units 16:36 16:36 16:36 WBC 11.0 H (3.8-10.6) k/uL RBC 3.96 (3.80-5.40) m/uL Hgb 11.4 (11.4-16.0) gm/dL Hct 37.7 (34.0-46.0) % MCV 95.4 (80.0-100.0) fL MCH 28.9 (25.0-35.0) pg MCHC 30.3 L (31.0-37.0) g/dL RDW 14.2 (11.5-15.5) % Plt Count 192 (150-450) k/uL MPV 8.1 Neutrophils % 80 % Lymphocytes % 12 % Monocytes % 6 % Eosinophils % 0 % Basophils % 0 % Neutrophils # 8.8 H (1.3-7.7) k/uL Lymphocytes # 1.3 (1.0-4.8) k/uL Monocytes # 0.7 (0-1.0) k/uL Eosinophils # 0.1 (0-0.7) k/uL Basophils # 0.0 (0-0.2) k/uL Hypochromasia Slight APTT 23.5 (22.0-30.0) sec Sodium 124 L (137-145) mmol/L Potassium 3.6 (3.5-5.1) mmol/L Chloride 90 L (98-107) mmol/L Carbon Dioxide 26 (22-30) mmol/L Anion Gap 8 mmol/L BUN 18 H (7-17) mg/dL Creatinine 0.45 L (0.52-1.04) mg/dL Est GFR (CKD-EPI)AfAm >90 (>60 ml/min/1.73 sqM) Est GFR (CKD-EPI)NonAf >90 (>60 ml/min/1.73 sqM) Glucose 794 H* (74-99) mg/dL POC Glucose (mg/dL) (75-99) mg/dL POC Glu Safety And Skill Based Pay Manager ID Calcium 8.5 (8.4-10.2) mg/dL Total Bilirubin 0.9 (0.2-1.3) mg/dL AST 34 (14-36) U/L ALT 16 (4-34) U/L Alkaline Phosphatase 133 H (38-126) U/L Total Protein 6.1 L (6.3-8.2) g/dL Albumin 3.0 L (3.5-5.0) g/dL Coronavirus (PCR) (Not Detectd) 06/04/21 06/04/21 Range/Units 20:23 21:00 WBC (3.8-10.6) k/uL RBC (3.80-5.40) m/uL Hgb (11.4-16.0) gm/dL Hct (34.0-46.0) % MCV (80.0-100.0) fL MCH (25.0-35.0) pg MCHC (31.0-37.0) g/dL RDW (11.5-15.5) % Plt Count (150-450) k/uL MPV Neutrophils % % Lymphocytes % % Monocytes % % Eosinophils % % Basophils % % Neutrophils # (1.3-7.7) k/uL Lymphocytes # (1.0-4.8) k/uL Monocytes # (0-1.0) k/uL Eosinophils # (0-0.7) k/uL Basophils # (0-0.2) k/uL Hypochromasia APTT (22.0-30.0) sec Sodium (137-145) mmol/L Potassium (3.5-5.1) mmol/L Chloride (98-107) mmol/L Carbon Dioxide (22-30) mmol/L Anion Gap mmol/L BUN (7-17) mg/dL Creatinine (0.52-1.04) mg/dL Est GFR (CKD-EPI)AfAm (>60 ml/min/1.73 sqM) Est GFR (CKD-EPI)NonAf (>60 ml/min/1.73 sqM) Glucose (74-99) mg/dL POC Glucose (mg/dL) >600 H (75-99) mg/dL POC Glu Safety And Skill Based Pay Manager ID Willing, Mai Calcium (8.4-10.2) mg/dL Total Bilirubin (0.2-1.3) mg/dL AST (14-36) U/L ALT (4-34) U/L Alkaline Phosphatase (38-126) U/L Total Protein (6.3-8.2) g/dL Albumin (3.5-5.0) g/dL Coronavirus (PCR) Not Detected (Not Detectd) Disposition Decision Date: 06/04/21 Decision Time: 19:02 <Madan Johnson - Last Filed: 06/04/21 23:51> <Bettie Arriaga - Last Filed: 06/10/21 01:09 EDT> Clinical Impression: Hyperglycemia, Ankle pain, left, Cellulitis Disposition: ADMITTED IP TO THIS HOSP Condition: Good
--- NOTE | 2021-06-04 18:13 | XR ---
Result: Clinical History: Pain status post fall. Comparison: None available. Technique: AP, lateral and oblique views of the left ankle. AP, lateral and oblique views of the left foot. Findings: The bone mineralization is osteopenic. Left ankle: There is pes planus with limited evaluation of the calcaneus. There is soft tissue edema about the ankle. There is no acute fracture or dislocation. There are scattered mild degenerative ch anges. The talar dome is intact and the ankle mortise is congruent. Left foot: There is no acute fracture or dislocation. Pes planus. There are scattered mild degenerat maxwell changes. IMPRESSION: Limited evaluation of the calcaneus. Soft tissue edema without displaced fracture of the ankle or foot.
--- NOTE | 2021-06-04 18:36 | US ---
EXAMINATION TYPE: US venous doppler duplex LE LT DATE OF EXAM: 06/04/2021 5:40 PM COMPARISON: NONE CLINICAL HISTORY: pain swelling. SIDE PERFORMED: Left TECHNIQUE: The lower extremity deep venous system is examined utilizing real time linear array sonog cheo with graded compression, doppler sonography and color-flow sonography. VESSELS IMAGED: Common Femoral Vein Deep Femoral Vein Greater Saphenous Vein * Femoral Vein Popliteal Vein Small Saphenous Vein * Proximal Calf Veins (* superficial vessels) Left Leg: Negative for DVT Extensive interstitial edema. IMPRESSION: No DVT of the left lower extremity. Soft tissue edema.
[2021-06-04] MEDS ORDERED: NALOXONE 0.4 MG/ML 1 ML VIAL IV PRN (18:57)
[2021-06-04 20:25] LABS: Glucose,Whole Blood >600 mg/dL (75-99)
[2021-06-04] MEDS: SODIUM CHLORIDE 0.9% 1,000 ML IV SCH (21:00)
[2021-06-04 22:05] LABS: Glucose,Whole Blood 543 mg/dL (75-99)
[2021-06-04] MEDS ORDERED: INSULIN REGULAR 100 UNIT/ML VIAL (IM/SQ) SQ ONE (22:15)
[2021-06-04] MEDS: INSULIN ASPART (NovoLOG) 100 UNIT/ML VIAL SQ SCH (22:18)
[2021-06-04] MEDS ORDERED: INSULIN ASPART (NovoLOG) 100 UNIT/ML VIAL SQ ONE (23:54)
[2021-06-04] MEDS ORDERED: traMADol 50 MG TAB PO PRN (23:54)
[2021-06-04] MEDS ORDERED: hydrOXYzine HCL 25 MG TAB PO PRN (23:58)
[2021-06-05 00:08] LABS: Glucose,Whole Blood 425 mg/dL (75-99)
[2021-06-05] MEDS: HYDROmorphone 0.5 MG/0.5 ML SYRINGE IVP PRN ×2 (00:18→21:04)
[2021-06-05] MEDS: GABAPENTIN 100 MG CAP PO SCH ×3 (00:19→21:05)
[2021-06-05] MEDS: SODIUM CHLORIDE 0.9% 1,000 ML IV SCH ×4 (01:28→21:06)
[2021-06-05 02:01] LABS: Glucose,Whole Blood 312 mg/dL (75-99)
[2021-06-05] MEDS: HYDROcodone/APAP 10-325MG 1 EACH TAB PO PRN ×3 (02:29→21:05)
[2021-06-05 07:23] LABS: Glucose,Whole Blood 275 mg/dL (75-99)
[2021-06-05] MEDS ORDERED: INSULN ASP PRT/INSULIN ASPART 100 UNIT/ML 10 ML VIAL SQ SCH (07:30)
[2021-06-05] MEDS: NICOTINE 14MG/24HR PATCH TRANSDERM SCH (08:12)
[2021-06-05] MEDS: INSULIN ASPART (NovoLOG) 100 UNIT/ML VIAL SQ SCH ×4 (08:16→21:04)
[2021-06-05] MEDS: PANTOPRAZOLE 40 MG TABLET PO SCH (08:16)
[2021-06-05] MEDS: MAGNESIUM OXIDE 400 MG TAB PO SCH ×2 (08:18→17:49)
[2021-06-05] MEDS: ATORVASTATIN 20 MG TAB PO SCH (08:20)
[2021-06-05] MEDS: DULoxetine HCL 30 MG CAPSULE.DR PO SCH (08:23)
[2021-06-05] MEDS ORDERED: carvediloL 3.125 MG TAB PO SCH (09:00)
[2021-06-05 12:02] LABS: Glucose,Whole Blood 221 mg/dL (75-99)
--- NOTE | 2021-06-05 12:48 | P.CNOR ---
<Martin Keen - Last Filed: 06/05/21 12:46> History of Present Illness - HPI Consult date: 06/05/21 Requesting physician: Madan Johnson Consult reason: other (left ankle pain) History of present illness: Patient is a 61-year-old female presenting with left lower leg pain status post fall out of the last night. We were consulted for left ankle pain/swelling Patient states she began some swelling in her left ankle and foot. She says she was able to bear a little bit of weight on the left foot. Patient states pain is worse when she tries ambulate. Patient states she does use a walker at home to get around. Patient currently rates the pain as 5/10. Patient has a history of uncontrolled diabetes and history of falls. Patient denies any previous orthopedic surgical history. Patient denies chest pain, fever, shortness breath, nausea, vomiting, change in vision, loss of bowel/bladder control Past Medical History Past Medical History: Diabetes Mellitus, Fibromyalgia, Hyperlipidemia, Osteoarthritis (OA) Additional Past Medical History / Comment(s): myalgia, myositis, sciatica, chronic pain syndrome, vaginitis, otalgia, fatigue, malaise, UTI, microscopic hematuria, tachycardia, insomnia, lumbago, degenerative disc, colitis History of Any Multi-Drug Resistant Organisms: C-DIFF Year Discovered:: February 15 2020 MDRO Source:: stool Past Surgical History: Cholecystectomy, Orthopedic Surgery, Tubal Ligation Additional Past Surgical History / Comment(s): left wrist Past Anesthesia/Blood Transfusion Reactions: No Reported Reaction Past Psychological History: Depression Smoking Status: Current every day smoker Past Alcohol Use History: None Reported Past Drug Use History: None Reported - Past Family History Mother Family Medical History: Cancer, COPD Additional Family Medical History / Comment(s): cervical cancer Father Additional Family Medical History / Comment(s): etoh abuse Medications and Allergies Home Medications Medication Instructions Recorded Confirmed Type DULoxetine HCL [Cymbalta] 30 mg PO DAILY 03/12/20 06/04/21 History Insulin NPH Hum/Reg Insulin Hm 30 units SQ BID-W/MEALS 03/12/20 06/05/21 History [Novolin 70-30 Flexpen] metFORMIN HCL [Glucophage] 1,000 mg PO BID 03/12/20 06/04/21 History Gabapentin [Neurontin] 200 mg PO HS #3 cap 04/12/20 06/04/21 Rx HYDROcodone/APAP 10-325MG [[place] 1 tab PO Q6H PRN #6 tab 04/12/20 06/04/21 Rx 10-325] lisinopriL [Zestril] 5 mg PO DAILY #30 tab 04/24/20 06/04/21 Rx Atorvastatin [Lipitor] 20 mg PO DAILY 01/10/21 06/04/21 History Carvedilol [Coreg] 3.125 mg PO BID 01/10/21 06/04/21 History Furosemide [Lasix] 40 mg PO BID 01/10/21 06/04/21 History Gabapentin [Neurontin] 100 mg PO DAILY 01/10/21 06/04/21 History Ibuprofen [Motrin] 800 mg PO Q8H PRN 01/10/21 06/04/21 History Ibuprofen/Diphenhydramine HCl 2 cap PO HS PRN 01/10/21 06/05/21 History [Advil Pm Liqui-Gels] Pantoprazole Sodium 40 mg PO DAILY 01/10/21 06/04/21 History Spironolactone [Aldactone] 25 mg PO DAILY 01/10/21 06/04/21 History hydrOXYzine HCL [Atarax] 25 - 50 mg PO HS PRN 01/10/21 06/04/21 History Magnesium Oxide 400 mg PO AC-BID #60 tablet 01/13/21 06/04/21 Rx Aspirin EC [Ecotrin Low Dose] 81 mg PO DAILY 06/05/21 06/05/21 History Allergies Allergy/AdvReac Type Severity Reaction Status Date / Time pregabalin [From Lyrica] AdvReac Swelling Verified 06/04/21 21:36 trazodone AdvReac Unknown Verified 06/04/21 21:36 Physical Examination Inspection: Moderate swelling to the left ankle and foot. Negative for any open fractures, erythema. Visible diffuse ecchymosis on the plantar aspect left foot. Sensation: Sensation equal, symmetric, intact bilaterally throughout exam Palpation: Nontender to palpation throughout exam Range of motion: Patient has full range of motion bilateral upper extremities and wrist flexion/extension, elbow flexion/extension and shoulder abd uction/external/internal rotation. Limited range of motion bilaterally in lower extremities and hip flexion/extension and knee flexion/extension due to weakness in active ROM. Full range of motion passively in bilateral reduction was any flexion/extension and hip flexion/extension. Limited range of motion and plantarflexion and dorsiflexion left foot. Motor: Remarketing Manager strength 3/5 bilateral upper extremities. Wrist flexion/extension, elbow flexion/extension, shoulder abduction/internal/external rotation 4/5. Left lower extremity 3/5 in resisted plantar flexion/dorsiflexion. 4/5 in resisted knee flexion/extension and hip flexion/extension and right and left lower extremities. 4/5 resisted plantar flexion/dorsiflexion right foot Neurovascular: Refill under 3 seconds bilateral upper extremity digits; radial pulses intact, 2+ bilaterally. DP pulse intact, weak 1+ left lower extremity Special tests: Negative Shine's bilaterally; negative Homans bilaterally. Results - Labs Labs: Abnormal Lab Results - Last 24 Hours (Table) 06/04/21 06/04/21 06/04/21 Range/Units 16:36 16:36 20:23 WBC 11.0 H (3.8-10.6) k/uL MCHC 30.3 L (31.0-37.0) g/dL Neutrophils # 8.8 H (1.3-7.7) k/uL Sodium 124 L (137-145) mmol/L Chloride 90 L (98-107) mmol/L BUN 18 H (7-17) mg/dL Creatinine 0.45 L (0.52-1.04) mg/dL Glucose 794 H* (74-99) mg/dL POC Glucose (mg/dL) >600 H (75-99) mg/dL Alkaline Phosphatase 133 H (38-126) U/L Total Protein 6.1 L (6.3-8.2) g/dL Albumin 3.0 L (3.5-5.0) g/dL 06/04/21 06/05/21 06/05/21 Range/Units 22:03 00:05 01:59 WBC (3.8-10.6) k/uL MCHC (31.0-37.0) g/dL Neutrophils # (1.3-7.7) k/uL Sodium (137-145) mmol/L Chloride (98-107) mmol/L BUN (7-17) mg/dL Creatinine (0.52-1.04) mg/dL Glucose (74-99) mg/dL POC Glucose (mg/dL) 543 H 425 H 312 H (75-99) mg/dL Alkaline Phosphatase (38-126) U/L Total Protein (6.3-8.2) g/dL Albumin (3.5-5.0) g/dL 06/05/21 Range/Units 07:22 WBC (3.8-10.6) k/uL MCHC (31.0-37.0) g/dL Neutrophils # (1.3-7.7) k/uL Sodium (137-145) mmol/L Chloride (98-107) mmol/L BUN (7-17) mg/dL Creatinine (0.52-1.04) mg/dL Glucose (74-99) mg/dL POC Glucose (mg/dL) 275 H (75-99) mg/dL Alkaline Phosphatase (38-126) U/L Total Protein (6.3-8.2) g/dL Albumin (3.5-5.0) g/dL H & H 06/04/21 Range/Units 16:36 Hgb 11.4 (11.4-16.0) gm/dL Hct 37.7 (34.0-46.0) % Result Diagrams: 06/04/21 16:36 06/04/21 16:36 Assessment and Plan Assessment: 1. Left ankle swelling/pain 2. Uncontrolled diabetes Plan: 1. Left ankle swelling/pain - x-ray left foot and ankle demonstrate no fracture. I did review the images with my attending, Dr. Cisneros. At this time we do not recommend any urgent orthopedic surgical intervention. We do recommend patient to follow-up with cafeteria worker for possible total contact casting in outpatient setting. Patient is stable for discharge from an orthopedic standpoint. Please do not hesitate to contact us for any further questions. 2. Appreciate medical management 3. Pain management - [place] 10mg//325mg; Gabapentin 4. GI prophylaxis - Protonix 5. DVT prophylaxis - mechanical 6. Appreciate consult Time with Patient: Less than 30 <Frederick Cisneros - Last Filed: 06/06/21 06:22> Physical Examination Osteopathic Statement: *. No significant issues noted on an osteopathic st ructural exam other than those noted in the History and Physical/Consult. Results - Labs Labs: Abnormal Lab Results - Last 24 Hours (Table) 06/05/21 06/05/21 06/05/21 Range/Units 07:22 12:00 14:43 Sodium 131 L (137-145) mmol/L Potassium 3.4 L (3.5-5.1) mmol/L BUN 18 H (7-17) mg/dL Creatinine 0.51 L (0.52-1.04) mg/dL Glucose 220 H (74-99) mg/dL POC Glucose (mg/dL) 275 H 221 H (75-99) mg/dL Calcium 7.8 L (8.4-10.2) mg/dL 06/05/21 06/05/21 06/06/21 Range/Units 17:09 20:57 02:09 Sodium (137-145) mmol/L Potassium (3.5-5.1) mmol/L BUN (7-17) mg/dL Creatinine (0.52-1.04) mg/dL Glucose (74-99) mg/dL POC Glucose (mg/dL) 224 H 254 H 109 H (75-99) mg/dL Calcium (8.4-10.2) mg/dL H & H 06/04/21 Range/Units 16:36 Hgb 11.4 (11.4-16.0) gm/dL Hct 37.7 (34.0-46.0) % Result Diagrams: 06/04/21 16:36 06/05/21 14:43 Assessment and Plan (1) Diabetic Charct's arthropathy Current Visit: Yes Status: Acute Code(s): E11.610 - TYPE 2 DIABETES MELLITUS W DIABETIC NEUROPATHIC ARTHROPATHY SNOMED Code(s): 68314007 Plan: Agree with above plan. Patient has signs and symptoms of early diabetic charcot neuropathy. No signs of infection, drainage or open wounds. Recommend follow up with cafeteria worker or foot/ankle specialist capable of possible total contact casting. -Frederick Cisneros DO Orthopedic Surgeon
--- NOTE | 2021-06-05 13:52 | P.HPIM ---
History of Present Illness 7-year-old female came in with compensative for left leg pain and patient has swelling in the left ankle area and redness, patient had a foot, ankle x-ray and venous Doppler of which are negative patient doesn't have any DVT. Patient blood sugars are very high patient is highly noncompliant with the her medication regimen. Patient can use to smoke about half a pack of cigarettes a day. Patient had low-grade fevers as today patient is presently on vancomycin for possible cellulitis patient was evaluated by orthopedic surgery and they recommended follow-up as an outpatient and stable to be discharged from orthopedic perspective and patient is on ceftezole as well for possible cellulitis. Patient also severely hyponatremic with sodium of 124 REVIEW OF SYSTEMS: CONSTITUTIONAL: No fever, no malaise, no fatigue. HEENT: No recent visual problems or hearing problems. Denied any sore throat. CARDIOVASCULAR: No chest pain, orthopnea, PND, no palpitations, no syncope. PULMONARY: No shortness of breath, no cough, no hemoptysis. GASTROINTESTINAL: No diarrhea, no nausea, no vomiting, no abdominal pain. NEUROLOGICAL: No headaches, no weakness, no numbness. HEMATOLOGICAL: Denies any bleeding or petechiae. GENITOURINARY: Denies any burning micturition, frequency, or urgency. MUSCULOSKELETAL/RHEUMATOLOGICAL: Denies any joint pain, swelling, or any muscle pain. ENDOCRINE: Denies any polyuria or polydipsia. The rest of the 14-point review of systems is negative. PHYSICAL EXAMINATION: GENERAL: The patient is alert and oriented x3, not in any acute distress. Well developed, well nourished. HEENT: Pupils are round and equally reacting to light. EOMI. No scleral icterus. No conjunctival pallor. Normocephalic, atraumatic. No pharyngeal erythema. No thyromegaly. CARDIOVASCULAR: S1 and S2 present. No murmurs, rubs, or gallops. PULMONARY: Chest is clear to auscultation, no wheezing or crackles. ABDOMEN: Soft, nontender, nondistended, normoactive bowel sounds. No palpable organomegaly. MUSCULOSKELETAL: Left ankle and left foot swelling predominantly in the calcaneal area EXTREMITIES: No cyanosis, clubbing, or pedal edema. NEUROLOGICAL: Gross neurological examination did not reveal any focal deficits. SKIN: Redness and possible cellulitis of the left ankle Assessment and plan -Left ankle cellulitis or sprain: Patient will continued on the ceftezole and will reevaluate her tomorrow if patient fevers improved patient will be discharged on Keflex and if her redness improves patient will be discharged on Keflex -Uncontrolled elevated blood sugars due to noncompliance extensive counseling was provided at counseling was provided patient will restart back on insulin regimen patient has type today was metastatic -Hyponatremia: Hyperosmolar hyponatremia secondary to hyperglycemia and hypervolemic hyponatremia as well patient will continued on IV fluids expected to improve with improvement of blood sugars -Leukocytosis due to assessment 1 -Continued nicotine use: Counseling was provided -Fibromyalgia -Hyperlipidemia DVT prophylaxis: Lovenox Past Medical History Past Medical History: Diabetes Mellitus, Fibromyalgia, Hyperlipidemia, Osteoarthritis (OA) Additional Past Medical History / Comment(s): myalgia, myositis, sciatica, chronic pain syndrome, vaginitis, otalgia, fatigue, malaise, UTI, microscopic he maturia, tachycardia, insomnia, lumbago, degenerative disc, colitis History of Any Multi-Drug Resistant Organisms: C-DIFF Date of last positivie culture/infection: February 15 2020 MDRO Source:: stool Past Surgical History: Cholecystectomy, Orthopedic Surgery, Tubal Ligation Additional Past Surgical History / Comment(s): left wrist Past Anesthesia/Blood Transfusion Reactions: No Reported Reaction Past Psychological History: Depression Smoking Status: Current every day smoker Past Alcohol Use History: None Reported Past Drug Use History: None Reported - Past Family History Mother Family Medical History: Cancer, COPD Additional Family Medical History / Comment(s): cervical cancer Father Additional Family Medical History / Comment(s): etoh abuse Medications and Allergies Home Medications Medication Instructions Recorded Confirmed Type DULoxetine HCL [Cymbalta] 30 mg PO DAILY 03/12/20 06/04/21 History Insulin NPH Hum/Reg Insulin Hm 30 units SQ BID-W/MEALS 03/12/20 06/05/21 History [Novolin 70-30 Flexpen] metFORMIN HCL [Glucophage] 1,000 mg PO BID 03/12/20 06/04/21 History Gabapentin [Neurontin] 200 mg PO HS #3 cap 04/12/20 06/04/21 Rx HYDROcodone/APAP 10-325MG [[place] 1 tab PO Q6H PRN #6 tab 04/12/20 06/04/21 Rx 10-325] lisinopriL [Zestril] 5 mg PO DAILY #30 tab 04/24/20 06/04/21 Rx Atorvastatin [Lipitor] 20 mg PO DAILY 01/10/21 06/04/21 History Carvedilol [Coreg] 3.125 mg PO BID 01/10/21 06/04/21 History Furosemide [Lasix] 40 mg PO BID 01/10/21 06/04/21 History Gabapentin [Neurontin] 100 mg PO DAILY 01/10/21 06/04/21 History Ibuprofen [Motrin] 800 mg PO Q8H PRN 01/10/21 06/04/21 History Ibuprofen/Diphenhydramine HCl 2 cap PO HS PRN 01/10/21 06/05/21 History [Advil Pm Liqui-Gels] Pantoprazole Sodium 40 mg PO DAILY 01/10/21 06/04/21 History Spironolactone [Aldactone] 25 mg PO DAILY 01/10/21 06/04/21 History hydrOXYzine HCL [Atarax] 25 - 50 mg PO HS PRN 01/10/21 06/04/21 History Magnesium Oxide 400 mg PO AC-BID #60 tablet 01/13/21 06/04/21 Rx Aspirin EC [Ecotrin Low Dose] 81 mg PO DAILY 06/05/21 06/05/21 History Allergies Allergy/AdvReac Type Severity Reaction Status Date / Time pregabalin [From Lyrica] AdvReac Swelling Verified 06/04/21 21:36 trazodone AdvReac Unknown Verified 06/04/21 21:36 Physical Exam Vitals: Vital Signs Temp Pulse Pulse Resp BP BP Pulse Ox 06/05/21 11:10 99.7 F H 90 18 95/63 95 06/05/21 06:45 98.9 F 94 18 91/53 06/05/21 05:00 99.4 F 91 16 91/55 92 L 06/04/21 23:38 98.2 F 86 16 112/71 90 L 06/04/21 19:27 93 16 120/71 93 L 06/04/21 16:24 100.0 F H 91 18 104/68 98 Intake and Output 06/04/21 06/05/21 06/05/21 22:59 06:59 14:59 Intake Total 1010 Balance 1010 Intake: Intake, IV Titration 650 Amount Sodium Chloride 0.9% 1, 600 000 ml @ 130 mls/hr IV . Q7H42M [facility] Rx#:[id number] ceFAZolin 1,000 mg In 50 Sodium Chloride 0.9% 50 ml @ 100 mls/hr IVPB Q8HR [facility] Rx#:[id number] Oral 360 Other: # Voids 1 Weight 48.988 kg 48.988 kg Results CBC & Chem 7: 06/04/21 16:36 06/04/21 16:36 Labs: Abnormal Lab Results - Last 24 Hours (Table) 06/04/21 06/04/21 06/04/21 Range/Units 16:36 16:36 20:23 WBC 11.0 H (3.8-10.6) k/uL MCHC 30.3 L (31.0-37.0) g/dL Neutrophils # 8.8 H (1.3-7.7) k/uL Sodium 124 L (137-145) mmol/L Chloride 90 L (98-107) mmol/L BUN 18 H (7-17) mg/dL Creatinine 0.45 L (0.52-1.04) mg/dL Glucose 794 H* (74-99) mg/dL POC Glucose (mg/dL) >600 H (75-99) mg/dL Alkaline Phosphatase 133 H (38-126) U/L Total Protein 6.1 L (6.3-8.2) g/dL Albumin 3.0 L (3.5-5.0) g/dL 06/04/21 06/05/21 06/05/21 Range/Units 22:03 00:05 01:59 WBC (3.8-10.6) k/uL MCHC (31.0-37.0) g/dL Neutrophils # (1.3-7.7) k/uL Sodium (137-145) mmol/L Chloride (98-107) mmol/L BUN (7-17) mg/dL Creatinine (0.52-1.04) mg/dL Glucose (74-99) mg/dL POC Glucose (mg/dL) 543 H 425 H 312 H (75-99) mg/dL Alkaline Phosphatase (38-126) U/L Total Protein (6.3-8.2) g/dL Albumin (3.5-5.0) g/dL 06/05/21 06/05/21 Range/Units 07:22 12:00 WBC (3.8-10.6) k/uL MCHC (31.0-37.0) g/dL Neutrophils # (1.3-7.7) k/uL Sodium (137-145) mmol/L Chloride (98-107) mmol/L BUN (7-17) mg/dL Creatinine (0.52-1.04) mg/dL Glucose (74-99) mg/dL POC Glucose (mg/dL) 275 H 221 H (75-99) mg/dL Alkaline Phosphatase (38-126) U/L Total Protein (6.3-8.2) g/dL Albumin (3.5-5.0) g/dL Thrombosis Risk Factor Assmnt - Choose All That Apply Any of the Below Risk Factors Present?: Yes Each Factor Represents 1 point: Age 41-60 years, Swollen legs (current) Other Risk Factors: No Other congenital or acquired thrombophilia - If yes, enter type in comment: No Thrombosis Risk Factor Assessment Total Risk Factor Score: 2 Thrombosis Risk Factor Assessment Level: Low Risk
[2021-06-05 15:13] LABS: African American GFR (CKD) >90 (>60 ml/min/1.73 sqM); Anion Gap 3 mmol/L; Blood Urea Nitrogen 18 mg/dL (7-17); Calcium 7.8 mg/dL (8.4-10.2); Carbon Dioxide 27 mmol/L (22-30); Chloride 101 mmol/L (98-107); Glucose 220 mg/dL (74-99); Non-African American GFR(CKD) >90 (>60 ml/min/1.73 sqM); Potassium 3.4 mmol/L (3.5-5.1); Sodium 131 mmol/L (137-145)
[2021-06-05 17:10] LABS: Glucose,Whole Blood 224 mg/dL (75-99)
[2021-06-05] MEDS: INSULN ASP PRT/INSULIN ASPART 100 UNIT/ML 10 ML VIAL SQ SCH (18:35)
[2021-06-05 21:01] LABS: Glucose,Whole Blood 254 mg/dL (75-99)
[2021-06-05] MEDS: METOPROLOL TARTRATE 25 MG TAB PO SCH (21:05)
[2021-06-06 02:11] LABS: Glucose,Whole Blood 109 mg/dL (75-99)
[2021-06-06] MEDS: HYDROmorphone 0.5 MG/0.5 ML SYRINGE IVP PRN ×2 (06:22→17:37)
[2021-06-06 07:29] LABS: Glucose,Whole Blood 97 mg/dL (75-99)
[2021-06-06] MEDS: MAGNESIUM OXIDE 400 MG TAB PO SCH ×2 (09:00→17:37)
[2021-06-06] MEDS: GABAPENTIN 100 MG CAP PO SCH ×2 (09:01→20:42)
[2021-06-06] MEDS: METOPROLOL TARTRATE 25 MG TAB PO SCH ×2 (09:01→20:42)
[2021-06-06] MEDS: DULoxetine HCL 30 MG CAPSULE.DR PO SCH (09:02)
[2021-06-06] MEDS: ATORVASTATIN 20 MG TAB PO SCH (09:02)
[2021-06-06] MEDS: ASPIRIN 81 MG PO SCH (09:03)
[2021-06-06] MEDS: PANTOPRAZOLE 40 MG TABLET PO SCH (09:04)
[2021-06-06] MEDS: NICOTINE 14MG/24HR PATCH TRANSDERM SCH (09:05)
[2021-06-06] MEDS: INSULIN ASPART (NovoLOG) 100 UNIT/ML VIAL SQ SCH ×4 (09:18→20:43)
[2021-06-06] MEDS: INSULN ASP PRT/INSULIN ASPART 100 UNIT/ML 10 ML VIAL SQ SCH ×2 (09:57→17:45)
[2021-06-06] MEDS: HYDROcodone/APAP 10-325MG 1 EACH TAB PO PRN ×3 (09:57→20:41)
[2021-06-06] MEDS: ENOXAPARIN 40 MG/0.4 ML SYRINGE SQ SCH (09:58)
[2021-06-06 10:10] LABS: Basophils % (A) 0 %; Eosinophils # (A) 0.1 k/uL (0-0.7); Eosinophils % (A) 1 %; HCT 32.5 % (34.0-46.0); HGB 10.2 gm/dL (11.4-16.0); Hypochromasia Slight; Lymphocytes # (A) 1.1 k/uL (1.0-4.8); Lymphocytes % (A) 16 %; MCH 29.3 pg (25.0-35.0); MCHC 31.2 g/dL (31.0-37.0); MCV 93.9 fL (80.0-100.0); Mean Platelet Volume 7.6; Monocytes # (A) 0.4 k/uL (0-1.0); Monocytes % (A) 6 %; Neutrophils # (A) 5.4 k/uL (1.3-7.7); Neutrophils % (A) 75 %; Platelet Count 212 k/uL (150-450); RBC 3.47 m/uL (3.80-5.40); RDW 14.4 % (11.5-15.5); WBC 7.2 k/uL (3.8-10.6)
[2021-06-06 10:17] LABS: African American GFR (CKD) >90 (>60 ml/min/1.73 sqM); Anion Gap 3 mmol/L; Blood Urea Nitrogen 21 mg/dL (7-17); Calcium 8.1 mg/dL (8.4-10.2); Carbon Dioxide 28 mmol/L (22-30); Chloride 104 mmol/L (98-107); Glucose 98 mg/dL (74-99); Non-African American GFR(CKD) >90 (>60 ml/min/1.73 sqM); Potassium 4.4 mmol/L (3.5-5.1); Sodium 135 mmol/L (137-145)
[2021-06-06 12:31] LABS: Glucose,Whole Blood 116 mg/dL (75-99)
[2021-06-06] MEDS ORDERED: NYSTATIN 100,000UNIT/GM CREAM 30 GM TUBE TOPICAL SCH (14:00)
--- NOTE | 2021-06-06 15:01 | P.PN ---
Subjective Progress Note Date: 06/06/21 61-year-old female came in with compensative for left leg pain and patient has swelling in the left ankle area and redness, patient had a foot, ankle x-ray and venous Doppler of which are negative patient doesn't have any DVT. Patient blood sugars are very high patient is highly noncompliant with the her medication regimen. Patient can use to smoke about half a pack of cigarettes a day. Patient had low-grade fevers as today patient is presently on vancomycin for possible cellulitis patient was evaluated by orthopedic surgery and they recommended follow-up as an outpatient and stable to be discharged from orthopedic perspective and patient is on ceftezole as well for possible cellulitis. Patient also severely hyponatremic with sodium of 124 06/06/2021 Patient to the bedside, she is complaining of quite a bit of pain to that left ankle and foot. Orthopedic surgery had cleared her for discharge as there was no acute fracture. They recommended follow-up with podiatry for possible total contact casting outpatient. Per RN patient is unable to ambulate and bear weight on her foot and ankle, we did consult PT OT for discharge planning. In addition patient was retaining urine this morning and was straight catheterized x1. We will check a UA with culture. Patient is also complaining of some numbness and tingling to her fingers and extremities however she does have a chronic history of neuropathy related to diabetes. Labs today show hemoglobin of 10.2, sodium 135, BUN 21, creatinine 0.39. Blood pressure today is 120/67, she is afebrile and heart rate is 79. ROS Constitutional: Denied any fatigue denied any fever. Cardio vascular: denied any chest pain, palpitations Gastrointestinal denied any nausea vomiting Pulmonary: Denied any shortness of breath cough Neurologic denied any new focal deficits All inpatient medications were reviewed and appropriate changes in these m edications as dictated in the interval history and assessment and plan. PHYSICAL EXAMINATION: GENERAL: The patient is alert and oriented x3, not in any acute distress. Well developed, well nourished. HEENT: Pupils are round and equally reacting to light. EOMI. No scleral icterus. No conjunctival pallor. Normocephalic, atraumatic. No pharyngeal erythema. No thyromegaly. CARDIOVASCULAR: S1 and S2 present. No murmurs, rubs, or gallops. PULMONARY: Chest is clear to auscultation, no wheezing or crackles. ABDOMEN: Soft, nontender, nondistended, normoactive bowel sounds. No palpable organomegaly. MUSCULOSKELETAL: Left ankle and left foot swelling predominantly in the calcaneal area EXTREMITIES: No cyanosis, clubbing. There is soft tissue swelling as described above. NEUROLOGICAL: Gross neurological examination did not reveal any focal deficits. SKIN: Redness and possible cellulitis of the left ankle, although there is soft tissue swelling Assessment and plan -Left ankle cellulitis or sprain: Transition to oral Keflex on discharge, podiatry consult outpatient -Type 2 diabetes with hyperglycemia due to noncompliance with medications the patient did experience a blood sugar in the 90s once resumed on home dose of insulin we did decrease dosing. -Urine retention, unknown etiology, check urinalysis -Polyneuropathy due to uncontrolled diabetes mellitus, on Cymbalta and gabape ntin -Hyponatremia: Hyperosmolar hyponatremia secondary to hyperglycemia and hypervolemic hyponatremia as well patient will continued on IV fluids expected to improve with improvement of blood sugars, 135 today, recheck tomorrow -Leukocytosis due to assessment 1, improving -Continued nicotine use: Counseling was provided -Fibromyalgia -Hyperlipidemia DVT prophylaxis: Lovenox We are pending a formal PT OT consultation, discharge planning for tomorrow. Follow urinary retention protocol. Check urinalysis. Objective - Vital Signs Vital signs: Vital Signs Temp 98.4 F 06/06/21 08:30 Pulse 88 06/06/21 08:30 Resp 17 06/06/21 08:30 BP 129/85 06/06/21 08:30 Pulse Ox 94 L 06/06/21 05:00 Intake & Output 06/05/21 06/06/21 06/06/21 18:59 06:59 18:59 Intake Total 1320 Output Total 285 Balance 1320 -285 Weight 48.988 kg Intake: Intake, IV Titration 1200 Amount Sodium Chloride 0.9% 1, 1200 000 ml @ 100 mls/hr IV . Q10H [facility] Rx#:[id number] Oral 120 Output: Urine 285 Straight 285 Other: Voiding Method Bedside Commode Bedside Commode Diaper Diaper Incontinent Incontinent # Voids 5 0 - Labs CBC & Chem 7: 06/06/21 09:14 06/06/21 09:14 Labs: Abnormal Lab Results - Last 24 Hours (Table) 06/05/21 06/05/21 06/05/21 Range/Units 14:43 17:09 20:57 RBC (3.80-5.40) m/uL Hgb (11.4-16.0) gm/dL Hct (34.0-46.0) % Sodium 131 L (137-145) mmol/L Potassium 3.4 L (3.5-5.1) mmol/L BUN 18 H (7-17) mg/dL Creatinine 0.51 L (0.52-1.04) mg/dL Glucose 220 H (74-99) mg/dL POC Glucose (mg/dL) 224 H 254 H (75-99) mg/dL Calcium 7.8 L (8.4-10.2) mg/dL 06/06/21 06/06/21 06/06/21 Range/Units 02:09 09:14 09:14 RBC 3.47 L (3.80-5.40) m/uL Hgb 10.2 L (11.4-16.0) gm/dL Hct 32.5 L (34.0-46.0) % Sodium 135 L (137-145) mmol/L Potassium (3.5-5.1) mmol/L BUN 21 H (7-17) mg/dL Creatinine 0.39 L (0.52-1.04) mg/dL Glucose (74-99) mg/dL POC Glucose (mg/dL) 109 H (75-99) mg/dL Calcium 8.1 L (8.4-10.2) mg/dL Assessment and Plan Time with Patient: Greater than 30
[2021-06-06] MEDS: SODIUM CHLORIDE 0.9% 1,000 ML IV SCH (17:33)
[2021-06-06 17:43] LABS: Glucose,Whole Blood 172 mg/dL (75-99)
[2021-06-06 17:50] LABS: Appearance,Urine Turbid (Clear); Bilirubin,Urine Negative (Negative); Blood,Urine Negative (Negative); Budding Yeast,Urine Moderate /hpf; Color,Urine Yellow; Glucose,Urine (UA) 3+ (Negative); Hyaline Casts,Urine 3 /lpf (0-2); Ketones,Urine 1+ (Negative); Leukocyte Esterase,Urine Small (Negative); Mucus,Urine Moderate /hpf; Nitrite,Urine Negative (Negative); Protein,Urine 2+ (Negative); RBC,Urine 39 /hpf (0-5); Specific Gravity,Urine 1.028 (1.001-1.035); Squamous Epithelial Cell,Urine 52 /hpf (0-4); Urobilinogen,Urine <2.0 mg/dL (<2.0); WBC,Urine 14 /hpf (0-5)
[2021-06-06 20:36] LABS: Glucose,Whole Blood 233 mg/dL (75-99)
[2021-06-06] MEDS ORDERED: MICONAZOLE NITRATE 4%/2% VAG CREAM KIT VAGINAL SCH (21:00)
[2021-06-07] MEDS: HYDROmorphone 0.5 MG/0.5 ML SYRINGE IVP PRN ×4 (01:48→21:56)
[2021-06-07] MEDS: SODIUM CHLORIDE 0.9% 1,000 ML IV SCH ×3 (01:49→20:20)
[2021-06-07 01:56] LABS: Glucose,Whole Blood 65 mg/dL (75-99)
[2021-06-07 02:31] LABS: Glucose,Whole Blood 64 mg/dL (75-99)
[2021-06-07 03:29] LABS: Glucose,Whole Blood 96 mg/dL (75-99)
[2021-06-07] MEDS: HYDROcodone/APAP 10-325MG 1 EACH TAB PO PRN ×3 (04:33→18:00)
[2021-06-07 06:14] LABS: Basophils % (A) 1 %; Eosinophils # (A) 0.2 k/uL (0-0.7); Eosinophils % (A) 3 %; HCT 30.4 % (34.0-46.0); HGB 9.5 gm/dL (11.4-16.0); Hypochromasia Slight; Lymphocytes # (A) 1.1 k/uL (1.0-4.8); Lymphocytes % (A) 20 %; MCH 29.4 pg (25.0-35.0); MCHC 31.3 g/dL (31.0-37.0); MCV 93.9 fL (80.0-100.0); Mean Platelet Volume 7.6; Monocytes # (A) 0.5 k/uL (0-1.0); Monocytes % (A) 9 %; Neutrophils # (A) 3.5 k/uL (1.3-7.7); Neutrophils % (A) 65 %; Platelet Count 225 k/uL (150-450); RBC 3.24 m/uL (3.80-5.40); RDW 14.5 % (11.5-15.5); WBC 5.4 k/uL (3.8-10.6)
[2021-06-07 07:12] LABS: Glucose,Whole Blood 148 mg/dL (75-99)
[2021-06-07] MEDS: INSULN ASP PRT/INSULIN ASPART 100 UNIT/ML 10 ML VIAL SQ SCH ×2 (07:51→18:05)
[2021-06-07] MEDS: ENOXAPARIN 40 MG/0.4 ML SYRINGE SQ SCH (08:03)
[2021-06-07] MEDS: NICOTINE 14MG/24HR PATCH TRANSDERM SCH (08:03)
[2021-06-07] MEDS: GABAPENTIN 100 MG CAP PO SCH ×2 (08:03→20:18)
[2021-06-07] MEDS: DULoxetine HCL 30 MG CAPSULE.DR PO SCH (08:03)
[2021-06-07] MEDS: METOPROLOL TARTRATE 25 MG TAB PO SCH ×2 (08:03→20:18)
[2021-06-07] MEDS: ATORVASTATIN 20 MG TAB PO SCH (08:03)
[2021-06-07] MEDS: ASPIRIN 81 MG PO SCH (08:03)
[2021-06-07] MEDS: INSULIN ASPART (NovoLOG) 100 UNIT/ML VIAL SQ SCH ×4 (09:38→20:18)
[2021-06-07] MEDS: MAGNESIUM OXIDE 400 MG TAB PO SCH ×2 (09:40→18:00)
[2021-06-07] MEDS: PANTOPRAZOLE 40 MG TABLET PO SCH (09:40)
[2021-06-07 11:30] LABS: Glucose,Whole Blood 142 mg/dL (75-99)
[2021-06-07] MEDS: NYSTATIN 100,000UNIT/GM CREAM 30 GM TUBE TOPICAL SCH ×2 (11:59→20:22)
--- NOTE | 2021-06-07 13:24 | P.PN ---
Subjective Progress Note Date: 06/07/21 61-year-old female came in with compensative for left leg pain and patient has swelling in the left ankle area and redness, patient had a foot, ankle x-ray and venous Doppler of which are negative patient doesn't have any DVT. Patient blood sugars are very high patient is highly noncompliant with the her medication regimen. Patient can use to smoke about half a pack of cigarettes a day. Patient had low-grade fevers as today patient is presently on vancomycin for possible cellulitis patient was evaluated by orthopedic surgery and they recommended follow-up as an outpatient and stable to be discharged from orthopedic perspective and patient is on ceftezole as well for possible cellulitis. Patient also severely hyponatremic with sodium of 124 06/06/2021 Patient to the bedside, she is complaining of quite a bit of pain to that left ankle and foot. Orthopedic surgery had cleared her for discharge as there was no acute fracture. They recommended follow-up with podiatry for possible total contact casting outpatient. Per RN patient is unable to ambulate and bear weight on her foot and ankle, we did consult PT OT for discharge planning. In addition patient was retaining urine this morning and was straight catheterized x1. We will check a UA with culture. Patient is also complaining of some numbness and tingling to her fingers and extremities however she does have a chronic history of neuropathy related to diabetes. Labs today show hemoglobin of 10.2, sodium 135, BUN 21, creatinine 0.39. Blood pressure today is 120/67, she is afebrile and heart rate is 79. 06/07/2021 After reviewing patient states the bedside, there is still some swelling to that left ankle as well as erythema that is actually increasing from yesterday. Labs today show white count 5.4, hemoglobin 9.5. Urinalysis was positive, was started on IV Rocephin we will transition to oral antibiotics on discharge. Patient was evaluated by PT OT today was recommended subacute rehab on discharge as patient is not safe to return home due to high risk for falls. Patient states that she was taking her insulin on home however blood sugar was 600 on admission and she is experiencing lows in the poising inspector after her p.m. dose of 70/30. We did change this to 20 units in the morning and 10 units with dinner. We will consult podiatry to see her here. We will anticipate discharge tomorrow to rehab. ROS Constitutional: Denied any fatigue denied any fever. Cardio vascular: denied any chest pain, palpitations Gastrointestinal denied any nausea vomiting Pulmonary: Denied any shortness of breath cough Neurologic denied any new focal deficits All inpatient medications were reviewed and appropriate changes in these medications as dictated in the interval history and assessment and plan. PHYSICAL EXAMINATION: GENERAL: The patient is alert and oriented x3, not in any acute distress. Well developed, well nourished. HEENT: Pupils are round and equally reacting to light. EOMI. No scleral icterus. No conjunctival pallor. Normocephalic, atraumatic. No pharyngeal erythema. No thyromegaly. CARDIOVASCULAR: S1 and S2 present. No murmurs, rubs, or gallops. PULMONARY: Chest is clear to auscultation, no wheezing or crackles. ABDOMEN: Soft, nontender, nondistended, normoactive bowel sounds. No palpable organomegaly. MUSCULOSKELETAL: Left ankle and left foot swelling predominantly in the calcaneal area EXTREMITIES: No cyanosis, clubbing. There is soft tissue swelling as described above. NEUROLOGICAL: Gross neurological examination did not reveal any focal deficits. SKIN: Redness and possible cellulitis of the left ankle, although there is soft tissue swelling Assessment and plan -Left ankle cellulitis or sprain: Transition to oral Keflex on discharge, podiatry consult outpatient -Type 2 diabetes with hyperglycemia due to noncompliance with medications the patient did experience a blood sugar in the 90s once resumed on home dose of insulin we did decrease dosing. -Urinary tract infection with intertrigo present, IV Rocephin, culture pending -Polyneuropathy due to uncontrolled diabetes mellitus, on Cymbalta and gabapentin -Hyponatremia: Hyperosmolar hyponatremia secondary to hyperglycemia and hypervolemic hyponatremia as well patient will continued on IV fluids expected to improve with improvement of blood sugars, 135 today, recheck tomorrow -Leukocytosis due to assessment 1, resolved -Continued nicotine use: Counseling was provided -Fibromyalgia -Hyperlipidemia DVT prophylaxis: Lovenox Remove urinary catheter first in the morning for a voiding trial, consult podiatry, recheck labs tomorrow. We will anticipate transfer to rehab tomorrow. Objective - Vital Signs Vital signs: Vital Signs Temp 97.9 F 06/07/21 11:46 Pulse 71 06/07/21 11:46 Resp 17 06/07/21 11:46 BP 115/73 06/07/21 11:46 Pulse Ox 93 L 06/07/21 11:46 Intake & Output 06/06/21 06/07/21 06/07/21 18:59 06:59 18:59 Intake Total 1800 1200 Output Total 285 400 Balance 1515 800 Weight 48.988 kg Intake: Intake, IV Titration 1200 1200 Amount Sodium Chloride 0.9% 1, 1200 1200 000 ml @ 100 mls/hr IV . Q10H [facility] Rx#:[id number] Oral 600 Output: Urine 285 400 Straight 285 Other: Voiding Method Bedside Commode Bedside Commode Indwelling Catheter Diaper Diaper Incontinent Incontinent Self-Catheterization Indwelling Catheter - Labs CBC & Chem 7: 06/07/21 05:45 06/06/21 09:14 Labs: Abnormal Lab Results - Last 24 Hours (Table) 06/06/21 06/06/21 06/06/21 Range/Units 06:43 17:39 17:41 RBC (3.80-5.40) m/uL Hgb (11.4-16.0) gm/dL Hct (34.0-46.0) % POC Glucose (mg/dL) 172 H (75-99) mg/dL Hemoglobin A1c 13.0 H (4.0-6.0) % Urine Appearance Turbid H (Clear) Urine Protein 2+ H (Negative) Urine Glucose (UA) 3+ H (Negative) Urine Ketones 1+ H (Negative) Ur Leukocyte Esterase Small H (Negative) Urine RBC 39 H (0-5) /hpf Urine WBC 14 H (0-5) /hpf Ur Squamous Epith Cells 52 H (0-4) /hpf Hyaline Casts 3 H (0-2) /lpf Urine Mucus Moderate H (None) /hpf Urine Yeast (Budding) Moderate H (None) /hpf 06/06/21 06/07/21 06/07/21 Range/Units 20:35 01:53 02:29 RBC (3.80-5.40) m/uL Hgb (11.4-16.0) gm/dL Hct (34.0-46.0) % POC Glucose (mg/dL) 233 H 65 L 64 L (75-99) mg/dL Hemoglobin A1c (4.0-6.0) % Urine Appearance (Clear) Urine Protein (Negative) Urine Glucose (UA) (Negative) Urine Ketones (Negative) Ur Leukocyte Esterase (Negative) Urine RBC (0-5) /hpf Urine WBC (0-5) /hpf Ur Squamous Epith Cells (0-4) /hpf Hyaline Casts (0-2) /lpf Urine Mucus (None) /hpf Urine Yeast (Budding) (None) /hpf 06/07/21 06/07/21 06/07/21 Range/Units 05:45 07:11 11:29 RBC 3.24 L (3.80-5.40) m/uL Hgb 9.5 L (11.4-16.0) gm/dL Hct 30.4 L (34.0-46.0) % POC Glucose (mg/dL) 148 H 142 H (75-99) mg/dL Hemoglobin A1c (4.0-6.0) % Urine Appearance (Clear) Urine Protein (Negative) Urine Glucose (UA) (Negative) Urine Ketones (Negative) Ur Leukocyte Esterase (Negative) Urine RBC (0-5) /hpf Urine WBC (0-5) /hpf Ur Squamous Epith Cells (0-4) /hpf Hyaline Casts (0-2) /lpf Urine Mucus (None) /hpf Urine Yeast (Budding) (None) /hpf Microbiology - Last 24 Hours (Table) 06/06/21 17:39 Urine Culture - Preliminary Urine,Clean Catch Assessment and Plan Time with Patient: Greater than 30
--- NOTE | 2021-06-07 13:46 | XR ---
EXAMINATION TYPE: XR chest 2V DATE OF EXAM: 06/07/2021 COMPARISON: Chest x-ray March 17, 2021. CT chest January 11, 2021 HISTORY: Pneumonia. TECHNIQUE: Frontal and lateral views of the chest are obtained. FINDINGS: Osseous structures are demineralized. There is mild cardiomegaly now present with small to moderate-sized bilateral pleural effusions and mild interstitial edema. Associated bibasilar opacitie s favor compressive atelectasis. IMPRESSION: Suspect CHF exacerbation as there is no mild cardiomegaly with new mild interstitial rebecca ma and small to moderate size bilateral pleural effusions now identified.
[2021-06-07 15:36] LABS: African American GFR (CKD) 123.2 (60.0-200.0); Anion Gap 9.7 mmol/L (4.00-12.00); BUN/Creat Ratio 38.35 Ratio (12.00-20.00); Blood Urea Nitrogen 18.6 mg/dL (9.0-27.0); Calcium 7.7 mg/dL (8.7-10.3); Non-African American GFR(CKD) 106.3 (60.0-200.0)
[2021-06-07] MEDS ORDERED: FUROSEMIDE 10 MG/ML 2 ML VIAL IV ONE (16:56)
[2021-06-07 17:10] LABS: Glucose,Whole Blood 173 mg/dL (75-99)
[2021-06-07 20:00] LABS: Glucose,Whole Blood 151 mg/dL (75-99)
[2021-06-08] MEDS: HYDROcodone/APAP 10-325MG 1 EACH TAB PO PRN ×3 (00:34→17:43)
[2021-06-08 01:55] LABS: Glucose,Whole Blood 96 mg/dL (75-99)
[2021-06-08] MEDS: HYDROmorphone 0.5 MG/0.5 ML SYRINGE IVP PRN ×3 (04:33→19:54)
[2021-06-08] MEDS: SODIUM CHLORIDE 0.9% 1,000 ML IV SCH (04:59)
[2021-06-08 07:36] LABS: Glucose,Whole Blood 99 mg/dL (75-99)
[2021-06-08] MEDS: INSULIN ASPART (NovoLOG) 100 UNIT/ML VIAL SQ SCH ×4 (08:01→21:11)
[2021-06-08] MEDS: INSULN ASP PRT/INSULIN ASPART 100 UNIT/ML 10 ML VIAL SQ SCH ×2 (08:01→17:41)
--- NOTE | 2021-06-08 08:56 | P.GSHP ---
History of Present Illness H&P Date: 06/08/21 Chief Complaint: Pain left ankle 61-year-old patient seen at bedside complaining of painful left ankle after falling out of bed. Actually states she was walking and shopping with her relative when she noticed swelling and pain in her foot. Patient states that it is feeling better at this time. Patient has a history of cps-vzlvixw-exocyjorr diabetes neuropathy of bilateral foot and ankle. - Constitutional Constitutional: Denies chills, Denies fever - Cardiovascular Comment: Pedal pulses were patent palpable and symmetrical bilateral is no digital hair there is edema of the left foot and ankle. There is some ecchymosis noted on the medial posterior aspect of the calcaneal area. Cardiovascular: Denies chest pain, Denies shortness of breath - Musculoskeletal Comment: She has no pain or crepitus with range of motion ankle joint subtalar joint and midtarsal joint and metatarsophalangeal joints bilateral is no pain with [id number] compression of the calcaneus left. There is decreased range of motion of the ankle joint subtalar joint and midtarsal joint bilateral All inverters everters plantar flexors dorsiflexors grossly intact and symmetrical bilateral Musculoskeletal: left: ankle stiffness, ankle swelling, bilateral: as per HPI - Integumentary Integumentary: Denies pruritus, Denies rash - Neurological Neurological: Reports sensory deficit, Denies numbness, Denies weakness Past Medical History Past Medical History: Diabetes Mellitus, Fibromyalgia, Hyperlipidemia, Osteoarthritis (OA) Additional Past Medical History / Comment(s): myalgia, myositis, sciatica, chronic pain syndrome, vaginitis, otalgia, fatigue, malaise, UTI, microscopic hematuria, tachycardia, insomnia, lumbago, degenerative disc, colitis History of Any Multi-Drug Resistant Organisms: C-DIFF Date of last positivie culture/infection: February 15 2020 MDRO Source:: stool Past Surgical History: Cholecystectomy, Orthopedic Surgery, Tubal Ligation Additional Past Surgical History / Comment(s): left wrist Past Anesthesia/Blood Transfusion Reactions: No Reported Reaction Past Psychological History: Depression Smoking Status: Current every day smoker Past Alcohol Use History: None Reported Past Drug Use History: None Reported - Past Family History Mother Family Medical History: Cancer, COPD Additional Family Medical History / Comment(s): cervical cancer Father Additional Family Medical History / Comment(s): etoh abuse Medications and Allergies Home Medications Medication Instructions Recorded Confirmed Type DULoxetine HCL [Cymbalta] 30 mg PO DAILY 03/12/20 06/04/21 History metFORMIN HCL [Glucophage] 1,000 mg PO BID 03/12/20 06/04/21 History Gabapentin [Neurontin] 200 mg PO HS #3 cap 04/12/20 06/04/21 Rx HYDROcodone/APAP 10-325MG [[place] 1 tab PO Q6H PRN #6 tab 04/12/20 06/04/21 Rx 10-325] Atorvastatin [Lipitor] 20 mg PO DAILY 01/10/21 06/04/21 History Gabapentin [Neurontin] 100 mg PO DAILY 01/10/21 06/04/21 History Ibuprofen [Motrin] 800 mg PO Q8H PRN 01/10/21 06/04/21 History Ibuprofen/Diphenhydramine HCl 2 cap PO HS PRN 01/10/21 06/05/21 History [Advil Pm Liqui-Gels] Pantoprazole Sodium 40 mg PO DAILY 01/10/21 06/04/21 History hydrOXYzine HCL [Atarax] 25 - 50 mg PO HS PRN 01/10/21 06/04/21 History Magnesium Oxide 400 mg PO AC-BID #60 tablet 01/13/21 06/04/21 Rx Aspirin EC [Ecotrin Low Dose] 81 mg PO DAILY 06/05/21 06/05/21 History Cephalexin [Keflex] 500 mg PO Q12HR 7 Days #14 cap 06/06/21 Rx Insulin NPH Hum/Reg Insulin Hm 20 units SQ BID-W/MEALS #0 06/06/21 06/05/21 Rx [Novolin 70-30 Flexpen] Metoprolol Tartrate [Lopressor] 25 mg PO BID #60 tab 06/06/21 Rx Nicotine 14Mg/24Hr Patch [Habitrol] 1 patch TRANSDERM DAILY #4 patch 06/06/21 Rx Allergies Allergy/AdvReac Type Severity Reaction Status Date / Time pregabalin [From Lyrica] AdvReac Swelling Verified 06/04/21 21:36 trazodone AdvReac Unknown Verified 06/04/21 21:36 Surgical - Exam Vital Signs Temp Pulse Resp BP Pulse Ox 100.0 F H 91 18 104/68 98 06/04/21 16:24 11/01/21 16:24 06/04/21 16:24 06/04/21 16:24 06/04/21 16:24 - Cardiovascular Pedal pulses are patent palpable symmetric bilateral there is no digital hair bilateral extremities are cool to cool lateral there is edema noted to the left foot and ankle with increase in temperature - Integumentary No lesions bilateral there is some ecchymotic changes noted care to the medial posterior surface of the left calcaneal area - Neurologic She has loss of protective sensation in stocking glove distribution up to including the lower leg bilateral - Musculoskeletal Patient has no pain with palpation with oxkr-zk-fmek compression of the calcaneus or with range of motion of the ankle joint subtalar joint and midtarsal joint and metatarsophalangeal joint bilateral all inverters everters plantar flexors dorsiflexors grossly intact symmetrical bilateral there is decreased range of motion of the pedal joints bilateral review of radiographs show possible calcaneal depression fracture consistent with a Charcot foot left Results - Labs 06/07/21 05:45 06/07/21 05:45 Abnormal Lab Results - Last 24 Hours (Table) 06/07/21 06/07/21 06/07/21 Range/Units 05:45 11:29 17:08 Creatinine 0.5 L (0.6-1.5) mg/dL BUN/Creatinine Ratio 38.35 H (12.00-20.00) Ratio Glucose 131 H (70-110) mg/dL POC Glucose (mg/dL) 142 H 173 H (75-99) mg/dL Calcium 7.7 L (8.7-10.3) mg/dL 06/07/21 Range/Units 19:59 Creatinine (0.6-1.5) mg/dL BUN/Creatinine Ratio (12.00-20.00) Ratio Glucose (70-110) mg/dL POC Glucose (mg/dL) 151 H (75-99) mg/dL Calcium (8.7-10.3) mg/dL Microbiology - Last 24 Hours (Table) 06/06/21 17:39 Urine Culture - Preliminary Urine,Clean Catch Diabetes panel 06/07/21 Range/Units 05:45 Sodium 138 (135-145) mmol/L Potassium 4.0 (3.5-5.5) mmol/L Chloride 104 (96-109) mmol/L Carbon Dioxide 24.0 (21.6-31.8) mmol/L BUN 18.6 (9.0-27.0) mg/dL Creatinine 0.5 L (0.6-1.5) mg/dL Glucose 131 H (70-110) mg/dL Calcium 7.7 L (8.7-10.3) mg/dL Calcium panel 06/07/21 Range/Units 05:45 Calcium 7.7 L (8.7-10.3) mg/dL Pituitary panel 06/07/21 Range/Units 05:45 Sodium 138 (135-145) mmol/L Potassium 4.0 (3.5-5.5) mmol/L Chloride 104 (96-109) mmol/L Carbon Dioxide 24.0 (21.6-31.8) mmol/L BUN 18.6 (9.0-27.0) mg/dL Creatinine 0.5 L (0.6-1.5) mg/dL Glucose 131 H (70-110) mg/dL Calcium 7.7 L (8.7-10.3) mg/dL Adrenal panel 06/07/21 Range/Units 05:45 Sodium 138 (135-145) mmol/L Potassium 4.0 (3.5-5.5) mmol/L Chloride 104 (96-109) mmol/L Carbon Dioxide 24.0 (21.6-31.8) mmol/L BUN 18.6 (9.0-27.0) mg/dL Creatinine 0.5 L (0.6-1.5) mg/dL Glucose 131 H (70-110) mg/dL Calcium 7.7 L (8.7-10.3) mg/dL Assessment and Plan Assessment: Possible joint depression fracture left ankle Charcot joint disease left. Plan: Exam discussed with patient findings and treatment we'll get a computed tomography scan as after reviewing the radiographs appears to have a calcaneal fracture with chronic changes. patient has had a fractured calcaneus in the past and may have aggravated this and reactivated the Charcot process. We'll get a computed tomography scan of the calcaneal area to confirm this as well as keep the patient nonweightbearing for evaluation. Patient does have a Charcot she will need to be nonweightbearing. As well as possible mobilization. She also may have an underlying gout process that she has a history of gouty arthritis in her family. Check serum uric acids for this.
[2021-06-08] MEDS: ATORVASTATIN 20 MG TAB PO SCH (09:03)
[2021-06-08] MEDS: GABAPENTIN 100 MG CAP PO SCH ×2 (09:03→21:10)
[2021-06-08] MEDS: ASPIRIN 81 MG PO SCH (09:03)
[2021-06-08] MEDS: NICOTINE 14MG/24HR PATCH TRANSDERM SCH (09:03)
[2021-06-08] MEDS: PANTOPRAZOLE 40 MG TABLET PO SCH (09:03)
[2021-06-08] MEDS: MAGNESIUM OXIDE 400 MG TAB PO SCH ×2 (09:03→17:41)
[2021-06-08] MEDS: METOPROLOL TARTRATE 25 MG TAB PO SCH (09:03)
[2021-06-08] MEDS: DULoxetine HCL 30 MG CAPSULE.DR PO SCH (09:03)
[2021-06-08] MEDS: NYSTATIN 100,000UNIT/GM CREAM 30 GM TUBE TOPICAL SCH ×2 (09:03→21:11)
--- NOTE | 2021-06-08 10:15 | CT ---
EXAMINATION TYPE: CT foot LT wo con DATE OF EXAM: 06/08/2021 COMPARISON: 08/14/2020 x-ray left foot HISTORY: chronic left reaf foot pain CT DLP: 173.1 mGycm Automated exposure control for dose reduction was used. Contrast: None Technique: Axial images 2 mm thick sections. Reconstructed images in coronal and sagittal plane. Thre e-D reconstructed images were performed with separate computer by the technologist. FINDINGS: There is an oval hyperechoic area measuring 1.6 x 1.9 x 0.9 cm. There is some apparent shadowing dist al to the circumscribed mass. This is considered suspicious and biopsy is recommended. IMPRESSION: 1. CIRCUMSCRIBED OVAL MASS RIGHT BREAST 4:00 BC POSITION. 2. SUSPICIOUS FINDINGS. 3. BI-RADS 4 RECOMMENDATIONS: 1. ULTRASOUND-GUIDED CORE BIOPSY RIGHT BREAST LESION.
[2021-06-08] MEDS: ENOXAPARIN 40 MG/0.4 ML SYRINGE SQ SCH (10:39)
[2021-06-08] MEDS: FUROSEMIDE 40 MG TAB PO SCH (10:52)
[2021-06-08 11:43] LABS: Glucose,Whole Blood 139 mg/dL (75-99)
--- NOTE | 2021-06-08 12:33 | P.PN ---
Subjective Progress Note Date: 06/08/21 61-year-old female came in with compensative for left leg pain and patient has swelling in the left ankle area and redness, patient had a foot, ankle x-ray and venous Doppler of which are negative patient doesn't have any DVT. Patient blood sugars are very high patient is highly noncompliant with the her medication regimen. Patient can use to smoke about half a pack of cigarettes a day. Patient had low-grade fevers as today patient is presently on vancomycin for possible cellulitis patient was evaluated by orthopedic surgery and they recommended follow-up as an outpatient and stable to be discharged from orthopedic perspective and patient is on ceftezole as well for possible cellulitis. Patient also severely hyponatremic with sodium of 124 06/06/2021 Patient to the bedside, she is complaining of quite a bit of pain to that left ankle and foot. Orthopedic surgery had cleared her for discharge as there was no acute fracture. They recommended follow-up with podiatry for possible total contact casting outpatient. Per RN patient is unable to ambulate and bear weight on her foot and ankle, we did consult PT OT for discharge planning. In addition patient was retaining urine this morning and was straight catheterized x1. We will check a UA with culture. Patient is also complaining of some numbness and tingling to her fingers and extremities however she does have a chronic history of neuropathy related to diabetes. Labs today show hemoglobin of 10.2, sodium 135, BUN 21, creatinine 0.39. Blood pressure today is 120/67, she is afebrile and heart rate is 79. 06/07/2021 After reviewing patient states the bedside, there is still some swelling to that left ankle as well as erythema that is actually increasing from yesterday. Labs today show white count 5.4, hemoglobin 9.5. Urinalysis was positive, was started on IV Rocephin we will transition to oral antibiotics on discharge. Patient was evaluated by PT OT today was recommended subacute rehab on discharge as patient is not safe to return home due to high risk for falls. Patient states that she was taking her insulin on home however blood sugar was 600 on admission and she is experiencing lows in the lab tech after her p.m. dose of 70/30. We did change this to 20 units in the morning and 10 units with dinner. We will consult podiatry to see her here. We will anticipate discharge tomorrow to rehab. 06/08/21 Patient was limited to 90% on room as we did order a chest x-ray yesterday which shows infective exacerbation as there is no mild cardiomegaly with new mild interstitial edema and small to moderate-sized pleural effusions identified. We checked a serum BNP which was 9540. Patient was given a dose of IV Lasix 1 yesterday and was started on oral Lasix. She does not take any Lasix at home. Upon further investigation, an echocardiogram from April 2020 shows an ejection fraction of 25-30% with mild concentric left ventricular hypertrophy, increase lap grade 2 diastolic dysfunction, mild pulmonary hypertension, mild mitral regurgitation. We did consult cardiology. Patient was counseled about dietary who recommended a foot CT which showed a comminuted fracture to her left calcaneous. She does have a history of calcaneus fracture with evidence of Charcot joint. Podiatry is recommending nonweightbearing status to the left. Uric acid level is pending. Labs today are pending. ROS Constitutional: Denied any fatigue denied any fever. Cardio vascular: denied any chest pain, palpitations Gastrointestinal denied any nausea vomiting Pulmonary: Denied any shortness of breath cough Neurologic denied any new focal deficits All inpatient medications were reviewed and appropriate changes in these medications as dictated in the interval history and assessment and plan. PHYSICAL EXAMINATION: GENERAL: The patient is alert and oriented x3, not in any acute distress. Well developed, well nourished. HEENT: Pupils are round and equally reacting to light. EOMI. No scleral icterus. No conjunctival pallor. Normocephalic, atraumatic. No pharyngeal erythema. No thyromegaly. CARDIOVASCULAR: S1 and S2 present. No murmurs, rubs, or gallops. PULMONARY: Chest is clear to auscultation, no wheezing or crackles. ABDOMEN: Soft, nontender, nondistended, normoactive bowel sounds. No palpable organomegaly. MUSCULOSKELETAL: Left ankle and left foot swelling predominantly in the ca lcaneal area EXTREMITIES: No cyanosis, clubbing. There is soft tissue swelling as described above. NEUROLOGICAL: Gross neurological examination did not reveal any focal deficits. SKIN: Redness of the left ankle, although there is soft tissue swelling Assessment and plan -Left calcaneus comminuted fracture as evidenced on f/u foot CT with soft tissue swelling at the ankle and foot, podiatry and ortho following -Chronic congestive heart failure, systolic and diastolic most recent EF is 25-30%, suspect mild exacerbation,we did consult cardiology and started the patient on oral Lasix. -Type 2 diabetes with hyperglycemia due to noncompliance with medications the patient did experience a blood sugar in the 90s once resumed on home dose of insulin, decreased 70/30 PM dose. -Urinary tract infection with intertrigo present, nystatin cream and we will add oral Keflex. 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 -Leukocytosis due to assessment 1, resolved -Continued nicotine use: Counseling was provided -Fibromyalgia -Hyperlipidemia DVT prophylaxis: Lovenox Voiding trial today. Pending further recommendations from podiatry regarding left calcaneous fracture, pending input from cardiology as well. Repeat labs tomorrow. Patient was transitioned to oral Keflex. Objective - Vital Signs Vital signs: Vital Signs Temp 97.9 F 06/08/21 11: Pulse 76 06/08/21 11:21 Resp 15 06/08/21 11:21 BP 127/74 06/08/21 11:21 Pulse Ox 92 L 06/08/21 11:21 Intake & Output 06/07/21 06/08/21 06/08/21 18:59 06:59 18:59 Intake Total 1200 1490 Output Total 1400 Balance 1200 90 Weight 48.988 kg Intake: Intake, IV Titration 1200 900 Amount Sodium Chloride 0.9% 1, 1200 900 000 ml @ 100 mls/hr IV . Q10H [facility] Rx#:[id number] Oral 590 Output: Urine 1400 Other: Voiding Method Indwelling Catheter Indwelling Catheter Indwelling Catheter - Labs CBC & Chem 7: 06/07/21 05:45 06/07/21 05:45 Labs: Abnormal Lab Results - Last 24 Hours (Table) 06/07/21 06/07/21 06/07/21 Range/Units 05:45 17:08 19:59 Creatinine 0.5 L (0.6-1.5) mg/dL BUN/Creatinine Ratio 38.35 H (12.00-20.00) Ratio Glucose 131 H (70-110) mg/dL POC Glucose (mg/dL) 173 H 151 H (75-99) mg/dL Calcium 7.7 L (8.7-10.3) mg/dL 06/08/21 Range/Units 11:35 Creatinine (0.6-1.5) mg/dL BUN/Creatinine Ratio (12.00-20.00) Ratio Glucose (70-110) mg/dL POC Glucose (mg/dL) 139 H (75-99) mg/dL Calcium (8.7-10.3) mg/dL Microbiology - Last 24 Hours (Table) 06/06/21 17:39 Urine Culture - Final Urine,Clean Catch Trisha glabrata Assessment and Plan Time with Patient: Greater than 30
[2021-06-08] MEDS: CEPHALEXIN 250 MG CAP PO SCH ×2 (13:00→21:09)
--- NOTE | 2021-06-08 13:56 | P.CRDCN ---
History of Present Illness History of present illness: Patient is a 61-year-old female with a history of type 2 diabetes, neuropathy, chronic pain, cardiomyopathy (unknown etiology at this time), fibromyalgia, dyslipidemia, cholecystectomy for an acute cholecystitis on 04/08/2020. Patient was supposed to follow up with Dr. Lundy in the office, however has not followed up since 05/2022 for COVID-19 pandemic. We are being consulted for congestive heart failure. Patient presents to the emergency department on 06/04/21 with left foot pain and swelling. She states she has been having increased pain in her left foot for weeks. On 06/04 she states she slipped and fell on her left foot when getting out of bed, she had increased pain and swell ing. She called her doctor who advised her to get her foot evaluated. Her brother brought her to the emergency department. Per the ER she had swelling to her left leg up to her knee. Xrays revealed soft tissue swelling, no fracture. Orthopedics and Podiatry have been consulted. Foot CT revealed Comminuted fracture calcaneus, loss of boehler's angle, soft tissue swelling at ankle and foot. Patient seen and examined at bedside, she denies chest pain, shortness of breath, orthopnea or PND. Denies dyspnea on exertion. She state states she occasionally does get palpitations. She states at she occasionally misses medication doses. She states her lower extremity edema has improved. Patient was given 20mg IV Lasix x 1, started on PO Lasix 40mg daily. She has had 1.4L urine output over the past 24 hours. In 04/2020, patient was admitted with alerted mental status, lethargy and hypoglycemia after recent cholecystectomy. She was diagnosed with bilateral lower lobe pneumonia/right lower lobe abscess. Computed tomography scan showed multi loculated collection of the right lower lobe and she underwent thoracentesis bilaterally. Cytology was negative for malignancy and pleural fluid negative cultures. She underwent echocardiogram which revealed severely impaired ejection fraction 2530%, she was treated medically at that time. She follow up with Dr. Lundy in 05/2020, it was recommended that patient under a Lexiscan stress test however, patient did not follow up due to the Covid-19 pandemic. DIAGNOSTICS No EKG available at this time Patient not on telemetry to evaluate Chest xray mild interstitial edema and small to moderate size bilateral pleural effusions Laboratory reviewed, WBC 5.4, hemoglobin 9.5, platelets 225, sodium 138, potassium 4.0, BUN 18.6, serum Cr 0.5, proBNP 9,470. COVID-19 PCR negative Current home medications include aspirin 81mg daily, insulin, metformin, magnesium oxide, atorvastatin 20 mg daily, metoprolol tartrate 25 mg twice a day Echocardiogram 04/2020 revealed EF of 2530 percent, mild mitral regurgitation, mild pulmonary hypertension. Increase grade 2 diastolic dysfunction. REVIEW OF SYSTEMS At the time of my exam: CONSTITUTIONAL: Denies fever or chills. CARDIOVASCULAR: Denies chest pain, shortness of breath, orthopnea, PND or palpit ations. RESPIRATORY: Denies cough. GASTROINTESTINAL: Denies abdominal pain, diarrhea, constipation, nausea or vomiting. MUSCULOSKELETAL: Denies myalgias. NEUROLOGIC: Denies numbness, tingling, headacbe or weakness. ENDOCRINE: Denies fatigue, weight change, polydipsia or polyurina. GENITOURINARY: Denies burning, hematuria or urgency with micturation. HEMATOLOGIC: Denies history of anemia or bleeding. PHYSICAL EXAMINATION Blood pressure 127/74, heart rate 76, afebrile oxygen saturation is 92% on room air. CONSTITUTIONAL: No apparent distress. HEENT: Head is normocephalic. Pupils are equal, round. Sclerae anicteric. Mucous membranes of the mouth are moist. No JVD. No carotid bruit. CHEST EXAMINATION: Lungs are clear to auscultation. No chest wall tenderness is noted on palpation or with deep breathing. HEART EXAMINATION: Regular rate and rhythm. S1, S2 heard. No murmurs, gallops or rub. ABDOMEN: Soft, nontender. Positive bowel sounds. EXTREMITIES: 2+ peripheral pulses, 2+ L> R bilateral lower extremity edema and no calf tenderness. NEUROLOGIC EXAMINATION: Patient is awake, alert and oriented x3. ASSESSMENT: Foot CT revealed Comminuted fracture calcaneus Cardiomyopathy, previous EF 25-30%, diagnosed during hospitalization in 04/2020 in the setting of pneumonia and possible pulmonary abscess, unclear if ischemic or non-ischemic at this time - echo pending Chronic systolic heart failure- appears euvolemic on exam Bilateral lower extremity edema Type 2 Diabetes, uncontrolled, HbA1C 13 Neuropathy and chronic pain Hypertension Dyslipidemia PLAN -Add spironolactone -Add ACEI -Switch metoprolol tartrate to metoprolol succinate -Continue aspirin and statin -Continue PO Lasix -2D echocardiogram ordered -Further recommendations based on clinical course -Recommend close follow up with Dr. Lundy outpatient Nurse Practitioner note has been reviewed, I agree with a documented findings and plan of care. Patient was seen and examined. Past Medical History Past Medical History: Diabetes Mellitus, Fibromyalgia, Hyperlipidemia, Osteoarthritis (OA) Additional Past Medical History / Comment(s): myalgia, myositis, sciatica, chronic pain syndrome, vaginitis, otalgia, fatigue, malaise, UTI, microscopic hematuria, tachycardia, insomnia, lumbago, degenerative disc, colitis History of Any Multi-Drug Resistant Organisms: C-DIFF Date of last positivie culture/infection: February 15 2020 MDRO Source:: stool Past Surgical History: Cholecystectomy, Orthopedic Surgery, Tubal Ligation Additional Past Surgical History / Comment(s): left wrist Past Anesthesia/Blood Transfusion Reactions: No Reported Reaction Past Psychological History: Depression Smoking Status: Current every day smoker Past Alcohol Use History: None Reported Past Drug Use History: None Reported - Past Family History Mother Family Medical History: Cancer, COPD Additional Family Medical History / Comment(s): cervical cancer Father Additional Family Medical History / Comment(s): etoh abuse Medications and Allergies Home Medications Medication Instructions Recorded Confirmed Type DULoxetine HCL [Cymbalta] 30 mg PO DAILY 03/12/20 06/04/21 History metFORMIN HCL [Glucophage] 1,000 mg PO BID 03/12/20 06/04/21 History Gabapentin [Neurontin] 200 mg PO HS #3 cap 04/12/20 06/04/21 Rx HYDROcodone/APAP 10-325MG [Curtiss 1 tab PO Q6H PRN #6 tab 04/12/20 06/04/21 Rx 10-325] Atorvastatin [Lipitor] 20 mg PO DAILY 01/10/21 06/04/21 History Gabapentin [Neurontin] 100 mg PO DAILY 01/10/21 06/04/21 History Ibuprofen [Motrin] 800 mg PO Q8H PRN 01/10/21 06/04/21 History Ibuprofen/Diphenhydramine HCl 2 cap PO HS PRN 01/10/21 06/05/21 History [Advil Pm Liqui-Gels] Pantoprazole Sodium 40 mg PO DAILY 01/10/21 06/04/21 History hydrOXYzine HCL [Atarax] 25 - 50 mg PO HS PRN 01/10/21 06/04/21 History Magnesium Oxide 400 mg PO AC-BID #60 tablet 01/13/21 06/04/21 Rx Aspirin EC [Ecotrin Low Dose] 81 mg PO DAILY 06/05/21 06/05/21 History Cephalexin [Keflex] 500 mg PO Q12HR 7 Days #14 cap 06/06/21 Rx Insulin NPH Hum/Reg Insulin Hm 20 units SQ BID-W/MEALS #0 06/06/21 06/05/21 Rx [Novolin 70-30 Flexpen] Metoprolol Tartrate [Lopressor] 25 mg PO BID #60 tab 06/06/21 Rx Nicotine 14Mg/24Hr Patch [Habitrol] 1 patch TRANSDERM DAILY #4 patch 06/06/21 Rx Allergies Allergy/AdvReac Type Severity Reaction Status Date / Time pregabalin [From Lyrica] AdvReac Swelling Verified 06/04/21 21:36 trazodone AdvReac Unknown Verified 06/04/21 21:36 Physical Exam Vitals: Vital Signs Temp Pulse Resp BP Pulse Ox 06/08/21 11:21 97.9 F 76 15 127/74 92 L 06/08/21 07:00 98.2 F 75 12 127/74 93 L 06/08/21 04:56 98.2 F 74 16 118/74 97 06/07/21 20:33 98.2 F 77 16 117/78 92 L 06/07/21 20:05 16 Intake and Output 06/07/21 06/08/21 06/08/21 22:59 06:59 14:59 Intake Total 1200 1490 Output Total 1400 Balance 1200 90 Intake: Intake, IV Titration 1200 900 Amount Sodium Chloride 0.9% 1, 1200 900 000 ml @ 100 mls/hr IV . Q10H [facility] Rx#:[id number] Oral 590 Output: Urine 1400 Other: Voiding Method Indwelling Catheter Indwelling Catheter Results 06/07/21 05:45 06/07/21 05:45 Comprehensive Metabolic Panel 06/07/21 Range/Units 05:45 Sodium 138 (135-145) mmol/L Potassium 4.0 (3.5-5.5) mmol/L Chloride 104 (96-109) mmol/L Carbon Dioxide 24.0 (21.6-31.8) mmol/L BUN 18.6 (9.0-27.0) mg/dL Creatinine 0.5 L (0.6-1.5) mg/dL Glucose 131 H (70-110) mg/dL Calcium 7.7 L (8.7-10.3) mg/dL Current Medications Generic Name Dose Route Start Last Admin Trade Name Freq PRN Reason Stop Dose Admin Hydrocodone Bitart/Acetaminophen 1 each 06/04/21 23:58 06/08/21 09:07 Hydrocodone/Apap 10-325mg 1 Each Tab PO 1 each Q6H PRN Administration Pain Aspirin 81 mg 06/06/21 09:00 06/08/21 09:03 Aspirin 81 Mg PO 81 mg DAILY [facility] Administration Atorvastatin Calcium 20 mg 06/05/21 09:00 06/08/21 09:03 Atorvastatin 20 Mg Tab PO 20 mg DAILY [facility] Administration Cephalexin 250 mg 06/08/21 11:30 Cephalexin 250 Mg Cap PO 06/11/21 09:00 BID [facility] Duloxetine HCl 30 mg 06/05/21 09:00 06/08/21 09:03 Duloxetine Hcl 30 Mg Capsule.Dr PO 30 mg DAILY [facility] Administration Enoxaparin Sodium 40 mg 06/06/21 09:00 06/08/21 10:39 Enoxaparin 40 Mg/0.4 Ml Syringe SQ 40 mg DAILY [facility] Administration Furosemide 40 mg 06/08/21 09:30 06/08/21 10:52 Furosemide 40 Mg Tab PO 40 mg DAILY [facility] Administration Gabapentin 100 mg 06/05/21 09:00 06/08/21 09:03 Gabapentin 100 Mg Cap PO 100 mg DAILY [facility] Administration Gabapentin 200 mg 06/04/21 23:45 06/07/21 20:18 Gabapentin 100 Mg Cap PO 200 mg HS [facility] Administration Hydromorphone HCl 0.5 mg 06/04/21 23:53 06/08/21 04:33 Hydromorphone 0.5 Mg/0.5 Ml Syringe IVP 0.5 mg Q6HR PRN Administration Severe Pain Hydroxyzine HCl 25 mg 06/04/21 23:58 Hydroxyzine Hcl 25 Mg Tab PO HS PRN SLEEP Insulin Aspart 0 unit 06/04/21 21:00 06/08/21 08:01 Insulin Aspart (Novolog) 100 Unit/Ml Vial SQ Not Given ACHS [facility] Protocol Insulin Aspart 20 unit 06/08/21 07:30 06/08/21 08:01 Insuln Asp Prt/Insulin Aspart 100 Unit/Ml 10 Ml Vial SQ Not Given AC-BRKFST [facility] Insulin Aspart 10 unit 06/07/21 17:30 06/07/21 18:05 Insuln Asp Prt/Insulin Aspart 100 Unit/Ml 10 Ml Vial SQ 10 unit AC-SUPPER [facility] Administration Magnesium Oxide 400 mg 06/05/21 07:30 06/08/21 09:03 Magnesium Oxide 400 Mg Tab PO 400 mg AC-BID [facility] Administration Metoprolol Tartrate 25 mg 06/05/21 21:00 06/08/21 09:03 Metoprolol Tartrate 25 Mg Tab PO 25 mg BID [facility] Administration Naloxone HCl 0.2 mg 06/04/21 18:57 Naloxone 0.4 Mg/Ml 1 Ml Vial IV Q2M PRN Opioid Reversal Nicotine 1 patch 06/05/21 09:00 06/08/21 09:03 Nicotine 14mg/24hr Patch TRANSDERM Not Given DAILY [facility] Nystatin 1 applic 06/07/21 09:00 06/08/21 09:03 Nystatin 100,000unit/Gm Cream 30 Gm Tube TOPICAL 1 applic BID [facility] Administration Protocol Pantoprazole Sodium 40 mg 06/05/21 07:30 06/08/21 09:03 Pantoprazole 40 Mg Tablet PO 40 mg AC-BRKFST [facility] Administration Intake and Output 06/07/21 06/08/21 06/08/21 22:59 06:59 14:59 Intake Total 1200 1490 Output Total 1400 Balance 1200 90 Intake: Intake, IV Titration 1200 900 Amount Sodium Chloride 0.9% 1, 1200 900 000 ml @ 100 mls/hr IV . Q10H [facility] Rx#:[id number] Oral 590 Output: Urine 1400 Other: Voiding Method Indwelling Catheter Indwelling Catheter 06/07/21 05:45 06/07/21 05:45
--- NOTE | 2021-06-08 16:00 | P.PN ---
Subjective Progress Note Date: 06/08/21 Principal diagnosis: Calcaneal joint depression fracture Charcot joint disease left foot Patient was seen at bedside after reviewing CT scans which confirmed a joint depression fracture of the calcaneus. He states still sore and discharged tomorrow to rehab Objective - Vital Signs Vital signs: Vital Signs Temp 97.9 F 06/08/21 11:21 Pulse 76 06/08/21 11: Resp 15 06/08/21 11:21 BP 127/74 06/08/21 11:21 Pulse Ox 92 L 06/08/21 11:21 Intake & Output 06/07/21 06/08/21 06/08/21 18:59 06:59 18:59 Intake Total 1200 1490 Output Total 1400 400 Balance 1200 90 -400 Weight 48.988 kg Intake: Intake, IV Titration 1200 900 Amount Sodium Chloride 0.9% 1, 1200 900 000 ml @ 100 mls/hr IV . Q10H [facility] Rx#:[id number] Oral 590 Output: Urine 1400 400 Uretheral ([place]) 400 Other: Voiding Method Indwelling Catheter Indwelling Catheter Indwelling Catheter # Voids 1 - Exam She has edema of the left foot circumferentially and extending up to the lower leg review of computed tomography scan show a joint depression fracture of the calcaneus - Labs CBC & Chem 7: 06/07/21 05:45 06/07/21 05:45 Labs: Abnormal Lab Results - Last 24 Hours (Table) 06/07/21 06/07/21 06/08/21 Range/Units 17:08 19:59 11:35 POC Glucose (mg/dL) 173 H 151 H 139 H (75-99) mg/dL Microbiology - Last 24 Hours (Table) 06/06/21 17:39 Urine Culture - Final Urine,Clean Catch Trisha glabrata Assessment and Plan Assessment: Joint depression fracture calcaneus left Charcot joint disease left Plan: Today we discussed with patient findings and treatment. Should she has a compound fracture with joint displacement of the calcaneus. Discussed with patient that this may require surgical reduction and she needs re-main nonweightbearing as it will just disrupt the fracture fragments further. This would make surgical reduction more difficult if not impractical. Today we put a posterior splint on the patient and patient is remain nonweightbearing put orders and for physical therapy to instruct patient on nonweightbearing ambulation with a walker. We will evaluate the patient in the office next week and make outpatient surgical plans as required
[2021-06-08 17:20] LABS: Glucose,Whole Blood 153 mg/dL (75-99)
[2021-06-08 20:33] LABS: Glucose,Whole Blood 155 mg/dL (75-99)
[2021-06-09 04:21] LABS: Glucose,Whole Blood 125 mg/dL (75-99)
[2021-06-09] MEDS: HYDROcodone/APAP 10-325MG 1 EACH TAB PO PRN ×3 (06:06→17:51)
[2021-06-09 08:02] LABS: Basophils % (A) 1 %; Eosinophils # (A) 0.2 k/uL (0-0.7); Eosinophils % (A) 2 %; HCT 31.9 % (34.0-46.0); HGB 10.2 gm/dL (11.4-16.0); Hypochromasia Slight; Lymphocytes # (A) 0.8 k/uL (1.0-4.8); Lymphocytes % (A) 13 %; MCH 29.5 pg (25.0-35.0); MCHC 31.9 g/dL (31.0-37.0); MCV 92.2 fL (80.0-100.0); Mean Platelet Volume 7.3; Monocytes # (A) 0.5 k/uL (0-1.0); Monocytes % (A) 8 %; Neutrophils # (A) 4.4 k/uL (1.3-7.7); Neutrophils % (A) 74 %; Platelet Count 307 k/uL (150-450); RBC 3.46 m/uL (3.80-5.40); RDW 14.4 % (11.5-15.5)
[2021-06-09 08:11] LABS: Glucose,Whole Blood 155 mg/dL (75-99)
[2021-06-09] MEDS: ENOXAPARIN 40 MG/0.4 ML SYRINGE SQ SCH (08:32)
[2021-06-09] MEDS: SPIRONOLACTONE 25 MG TAB PO SCH (08:33)
[2021-06-09] MEDS: NICOTINE 14MG/24HR PATCH TRANSDERM SCH (08:33)
[2021-06-09] MEDS: lisinopriL 5 MG TAB PO SCH (08:33)
[2021-06-09] MEDS: ASPIRIN 81 MG PO SCH (08:33)
[2021-06-09] MEDS: ATORVASTATIN 20 MG TAB PO SCH (08:33)
[2021-06-09] MEDS: INSULIN ASPART (NovoLOG) 100 UNIT/ML VIAL SQ SCH ×4 (08:33→20:48)
[2021-06-09] MEDS: DULoxetine HCL 30 MG CAPSULE.DR PO SCH (08:33)
[2021-06-09] MEDS: PANTOPRAZOLE 40 MG TABLET PO SCH (08:33)
[2021-06-09] MEDS: FUROSEMIDE 40 MG TAB PO SCH (08:33)
[2021-06-09] MEDS: MAGNESIUM OXIDE 400 MG TAB PO SCH ×2 (08:33→17:51)
[2021-06-09] MEDS: METOPROLOL SUCCINATE (ER) 25 MG TAB.ER.24H PO SCH (08:33)
[2021-06-09] MEDS: GABAPENTIN 100 MG CAP PO SCH ×2 (08:33→20:48)
[2021-06-09] MEDS: CEPHALEXIN 250 MG CAP PO SCH ×2 (08:34→20:48)
[2021-06-09] MEDS: HYDROmorphone 0.5 MG/0.5 ML SYRINGE IVP PRN ×3 (08:36→21:31)
[2021-06-09] MEDS: INSULN ASP PRT/INSULIN ASPART 100 UNIT/ML 10 ML VIAL SQ SCH ×2 (08:39→18:22)
[2021-06-09] MEDS: NYSTATIN 100,000UNIT/GM CREAM 30 GM TUBE TOPICAL SCH ×2 (08:40→20:49)
[2021-06-09 12:56] LABS: Glucose,Whole Blood 109 mg/dL (75-99)
[2021-06-09 13:42] LABS: African American GFR (CKD) 131.2 (60.0-200.0); Anion Gap 11.3 mmol/L (4.00-12.00); BUN/Creat Ratio 27.75 Ratio (12.00-20.00); Blood Urea Nitrogen 11.1 mg/dL (9.0-27.0); Calcium 7.8 mg/dL (8.7-10.3); Carbon Dioxide 23.7 mmol/L (21.6-31.8); Non-African American GFR(CKD) 113.2 (60.0-200.0); Potassium 3.6 mmol/L (3.5-5.5)
--- NOTE | 2021-06-09 14:22 | P.PN ---
Subjective Patient is a 61-year-old female with a history of type 2 diabetes, neuropathy, chronic pain, cardiomyopathy (unknown etiology at this time), fibromyalgia, dyslipidemia, cholecystectomy for an acute cholecystitis on 04/08/2020. Patient was supposed to follow up with Dr. Lundy in the office, however has not followed up since 05/2022 for COVID-19 pandemic. We are being consulted for congestive heart failure. Patient presents to the emergency department on 06/04/21 with left foot pain and swelling. She states she has been having increased pain in her left foot for weeks. On 06/04 she states she slipped and fell on her left foot when getting out of bed, she had increased pain and swelling. She called her doctor who advised her to get her foot evaluated. Her brother brought her to the emergency department. Per the ER she had swelling to her left leg up to her knee. Xrays revealed soft tissue swelling, no fracture. Orthopedics and Podiatry have been consulted. Foot CT revealed Comminuted fracture calcaneus, loss of boehler's angle, soft tissue swelling at ankle and foot. Patient seen and examined at bedside, she denies chest pain, shortness of breath, orthopnea or PND. Denies dyspnea on exertion. She state states she occasionally does get palpitations. She states at she occasionally misses medication doses. She states her lower extremity edema has improved. Patient was given 20mg IV Lasix x 1, started on PO Lasix 40mg daily. She has had 1.4L urine output over the past 24 hours. In 04/2020, patient was admitted with alerted mental status, lethargy and hypoglycemia after recent cholecystectomy. She was diagnosed with bilateral lower lobe pneumonia/right lower lobe abscess. Computed tomography scan showed multi loculated collection of the right lower lobe and she underwent thoracentesis bilaterally. Cytology was negative for malignancy and pleural fluid negative cultures. She underwent echocardiogram which revealed severely impaired ejection fraction 2530%, she was treated medically at that time. She follow up with Dr. Lundy in 05/2020, it was recommended that patient under a Lexiscan stress test however, patient did not follow up due to the Covid-19 pandemic. DIAGNOSTICS No EKG available at this time Patient not on telemetry to evaluate Chest xray mild interstitial edema and small to moderate size bilateral pleural effusions Laboratory reviewed, WBC 5.4, hemoglobin 9.5, platelets 225, sodium 138, potassium 4.0, BUN 18.6, serum Cr 0.5, proBNP 9,470. COVID-19 PCR negative Current home medications include aspirin 81mg daily, insulin, metformin, magnesium oxide, atorvastatin 20 mg daily, metoprolol tartrate 25 mg twice a day Echocardiogram 04/2020 revealed EF of 2530 percent, mild mitral regurgitation, mild pulmonary hypertension. Increase grade 2 diastolic dysfunction. 06/09 Patient seen and examined. Patient denies any chest pain or pressure currently. She does however admit to intermittent chest pain that has been ongoing over the last 6 months. Not always associated with exertion and sometimes more so when she is lying down at night. She also admits to chronic dyspnea with fairly minimal activity. She cannot do more than walk around her room with a cane and become short of breath. REVIEW OF SYSTEMS At the time of my exam: CONSTITUTIONAL: Denies fever or chills. CARDIOVASCULAR: Denies chest pain, shortness of breath, orthopnea, PND or palpitations. RESPIRATORY: Denies cough. GASTROINTESTINAL: Denies abdominal pain, diarrhea, constipation, nausea or vomiting. MUSCULOSKELETAL: Denies myalgias. NEUROLOGIC: Denies numbness, tingling, headacbe or weakness. ENDOCRINE: Denies fatigue, weight change, polydipsia or polyurina. GENITOURINARY: Denies burning, hematuria or urgency with micturation. HEMATOLOGIC: Denies history of anemia or bleeding. PHYSICAL EXAMINATION VS reviewed CONSTITUTIONAL: No apparent distress. HEENT: Head is normocephalic. Pupils are equal, round. Sclerae anicteric. Mucous membranes of the mouth are moist. No JVD. No carotid bruit. CHEST EXAMINATION: Lungs are clear to auscultation. No chest wall tenderness is noted on palpation or with deep breathing. HEART EXAMINATION: Regular rate and rhythm. S1, S2 heard. No murmurs, gallops or rub. ABDOMEN: Soft, nontender. Positive bowel sounds. EXTREMITIES: 2+ peripheral pulses, 2+ L> R bilateral lower extremity edema and no calf tenderness. NEUROLOGIC EXAMINATION: Patient is awake, alert and oriented x3. ASSESSMENT: Foot CT revealed Comminuted fracture calcaneus Cardiomyopathy, previous EF 25-30%, diagnosed during hospitalization in 04/2020 in the setting of pneumonia and possible pulmonary abscess, unclear if ischemic or non-ischemic at this time - echo pending Chronic systolic heart failure- appears euvolemic on exam Bilateral lower extremity edema Type 2 Diabetes, uncontrolled, HbA1C 13 Neuropathy and chronic pain Hypertension Dyslipidemia PLAN Continue to optimize heart failure regimen as able. In terms of risk stratification and preoperative clearance, patient with numerous comorbidities as well as chest pain and shortness breath with minimal activity with prior cardiomyopathy EF 25-30%. EF appears improved however does have more focal wall motion abnormalities with inferior and lateral hypokinesis. Discussed options including heart catheterization versus stress testing and patient would like to first pursue stress testing. If patient is still here on Friday we will check a Lexiscan stress test. Objective - Vital Signs Vital signs: Vital Signs Temp 98.1 F 06/09/21 05:00 Pulse 78 06/09/21 05:00 Resp 16 06/09/21 05:00 BP 158/94 06/09/21 05:00 Pulse Ox 91 L 06/09/21 05:00 Intake & Output 06/08/21 06/09/21 06/09/21 18:59 06:59 18:59 Intake Total 0 590 Output Total 400 Balance -400 590 Weight 57.5 kg Intake: Intake, IV Titration 0 Amount Sodium Chloride 0.9% 1, 0 000 ml @ 100 mls/hr IV . Q10H [facility] Rx#:[id number] Oral 590 Output: Urine 400 Uretheral ([place]) 400 Other: Voiding Method Indwelling Catheter Bedside Commode Diaper Incontinent # Voids 3 2 - Labs CBC & Chem 7: 06/09/21 07:34 06/09/21 07:34 Labs: Abnormal Lab Results - Last 24 Hours (Table) 06/08/21 06/08/21 06/09/21 Range/Units 17:07 20:32 04:20 RBC (3.80-5.40) m/uL Hgb (11.4-16.0) gm/dL Hct (34.0-46.0) % Lymphocytes # (1.0-4.8) k/uL Creatinine (0.6-1.5) mg/dL BUN/Creatinine Ratio (12.00-20.00) Ratio Glucose (70-110) mg/dL POC Glucose (mg/dL) 153 H 155 H 125 H (75-99) mg/dL Calcium (8.7-10.3) mg/dL 06/09/21 06/09/21 06/09/21 Range/Units 07:34 07:34 08:09 RBC 3.46 L (3.80-5.40) m/uL Hgb 10.2 L (11.4-16.0) gm/dL Hct 31.9 L (34.0-46.0) % Lymphocytes # 0.8 L (1.0-4.8) k/uL Creatinine 0.4 L (0.6-1.5) mg/dL BUN/Creatinine Ratio 27.75 H (12.00-20.00) Ratio Glucose 142 H (70-110) mg/dL POC Glucose (mg/dL) 155 H (75-99) mg/dL Calcium 7.8 L (8.7-10.3) mg/dL 06/09/21 Range/Units 12:54 RBC (3.80-5.40) m/uL Hgb (11.4-16.0) gm/dL Hct (34.0-46.0) % Lymphocytes # (1.0-4.8) k/uL Creatinine (0.6-1.5) mg/dL BUN/Creatinine Ratio (12.00-20.00) Ratio Glucose (70-110) mg/dL POC Glucose (mg/dL) 109 H (75-99) mg/dL Calcium (8.7-10.3) mg/dL
--- NOTE | 2021-06-09 14:34 | ECHOF ---
Referral Reason:LV function MEASUREMENTS -------- HEIGHT: 160.0 cm WEIGHT: 49.0 kg BP: 127/74 RVIDd: 3.6 cm (< 3.3) IVSd: 1.1 cm (0.6 - 1.1) LVIDd: 3.8 cm (3.9 - 5.3) LVPWd: 1.3 cm (0.6 - 1.1) IVSs: 1.5 cm LVIDs: 2.6 cm LVPWs: 1.7 cm LA Diam: 3.6 cm (2.7 - 3.8) LAESV Index (A-L): 44.51 ml/m Ao Diam: 2.7 cm (2.0 - 3.7) AV Cusp: 1.8 cm (1.5 - 2.6) MV EXCURSION: 18.973 mm (> 18.000) MV EF SLOPE: 51 mm/s (70 - 150) EPSS: 0.4 cm MV E José Antonio: 1.03 m/s MV DecT: 205 ms MV A José Antonio: 1.22 m/s MV E/A Ratio: 0.84 RAP: 5.00 mmHg RVSP: 51.15 mmHg FINDINGS -------- Sinus rhythm. This was a technically good study. The left ventricular size is normal. There is mild concentric left ventricular hypertrophy. Overa ll left ventricular systolic function is mild-moderately impaired with, an EF between 40 - 45 %. Mi d lateral LV wall motion is hypokinetic. Mid posterior LV wall motion is hypokinetic. Apical la teral LV wall motion is hypokinetic. Apical inferior LV wall motion is hypokinetic. The right ventricle is mildly enlarged. LA is severely dilated >40 ml/m2 The right atrium is normal in size. Interatrial and interventricular septum intact. The aortic valve is trileaflet, and appears structurally normal. No aortic stenosis or regurgitation. There is trace to mild mitral regurgitation. Mild tricuspid regurgitation present. There is moderate pulmonary hypertension. The right ventric ular systolic pressure, as measured by Doppler, is 51.15mmHg. Trace/mild (physiologic) pulmonic regurgitation. The aortic root size is normal. Normal inferior vena cava with normal inspiratory collapse consistent with estimated right atrial pre ssure of 5 mmHg. There is no pericardial effusion. CONCLUSIONS -------- 1. The left ventricular size is normal. 2. There is mild concentric left ventricular hypertrophy. 3. Overall left ventricular systolic function is mild-moderately impaired with, an EF between 40 - 45 %. 4. Mid lateral LV wall motion is hypokinetic. 5. Mid posterior LV wall motion is hypokinetic. 6. Apical lateral LV wall motion is hypokinetic. 7. Apical inferior LV wall motion is hypokinetic. 8. The right ventricle is mildly enlarged. 9. LA is severely dilated >40 ml/m2 10. The aortic valve is trileaflet, and appears structurally normal. No aortic stenosis or regurgitat ion. 11. There is trace to mild mitral regurgitation. 12. Mild tricuspid regurgitation present. 13. There is moderate pulmonary hypertension. 14. The right ventricular systolic pressure, as measured by Doppler, is 51.15mmHg. 15. Trace/mild (physiologic) pulmonic regurgitation. 16. There is no pericardial effusion. AIR VALVE REPAIRER: NAIMA Garcia
[2021-06-09 17:33] LABS: Glucose,Whole Blood 156 mg/dL (75-99)
[2021-06-09 20:15] LABS: Glucose,Whole Blood 262 mg/dL (75-99)
[2021-06-10] MEDS: HYDROcodone/APAP 10-325MG 1 EACH TAB PO PRN ×4 (00:17→20:48)
[2021-06-10 02:06] LABS: Glucose,Whole Blood 120 mg/dL (75-99)
[2021-06-10] MEDS: HYDROmorphone 0.5 MG/0.5 ML SYRINGE IVP PRN ×3 (02:13→17:03)
[2021-06-10 07:26] LABS: Glucose,Whole Blood 112 mg/dL (75-99)
[2021-06-10] MEDS: INSULN ASP PRT/INSULIN ASPART 100 UNIT/ML 10 ML VIAL SQ SCH ×2 (07:31→18:09)
[2021-06-10] MEDS: INSULIN ASPART (NovoLOG) 100 UNIT/ML VIAL SQ SCH ×4 (07:31→20:48)
[2021-06-10] MEDS: ASPIRIN 81 MG PO SCH (07:57)
[2021-06-10] MEDS: lisinopriL 5 MG TAB PO SCH (07:58)
[2021-06-10] MEDS: SPIRONOLACTONE 25 MG TAB PO SCH (07:58)
[2021-06-10] MEDS: FUROSEMIDE 40 MG TAB PO SCH (07:58)
[2021-06-10] MEDS: ENOXAPARIN 40 MG/0.4 ML SYRINGE SQ SCH (07:58)
[2021-06-10] MEDS: METOPROLOL SUCCINATE (ER) 25 MG TAB.ER.24H PO SCH (07:58)
[2021-06-10] MEDS: GABAPENTIN 100 MG CAP PO SCH ×2 (07:58→20:48)
[2021-06-10] MEDS: DULoxetine HCL 30 MG CAPSULE.DR PO SCH (07:58)
[2021-06-10] MEDS: PANTOPRAZOLE 40 MG TABLET PO SCH (07:58)
[2021-06-10] MEDS: CEPHALEXIN 250 MG CAP PO SCH ×2 (07:58→20:48)
[2021-06-10] MEDS: MAGNESIUM OXIDE 400 MG TAB PO SCH ×2 (07:58→18:05)
[2021-06-10] MEDS: ATORVASTATIN 20 MG TAB PO SCH (07:58)
[2021-06-10] MEDS: NICOTINE 14MG/24HR PATCH TRANSDERM SCH (08:00)
[2021-06-10] MEDS: NYSTATIN 100,000UNIT/GM CREAM 30 GM TUBE TOPICAL SCH ×2 (08:03→20:50)
--- NOTE | 2021-06-10 10:40 | P.PN ---
Subjective Patient is a 61-year-old female with a history of type 2 diabetes, neuropathy, chronic pain, cardiomyopathy (unknown etiology at this time), fibromyalgia, dyslipidemia, cholecystectomy for an acute cholecystitis on 04/08/2020. Patient was supposed to follow up with Dr. Lundy in the office, however has not followed up since 05/2022 for COVID-19 pandemic. We are being consulted for congestive heart failure. Patient presents to the emergency department on 06/04/21 with left foot pain and swelling. She states she has been having increased pain in her left foot for weeks. On 06/04 she states she slipped and fell on her left foot when getting out of bed, she had increased pain and swelling. She called her doctor who advised her to get her foot evaluated. Her brother brought her to the emergency department. Per the ER she had swelling to her left leg up to her knee. Xrays revealed soft tissue swelling, no fracture. Orthopedics and Podiatry have been consulted. Foot CT revealed Comminuted fracture calcaneus, loss of boehler's angle, soft tissue swelling at ankle and foot. Patient seen and examined at bedside, she denies chest pain, shortness of breath, orthopnea or PND. Denies dyspnea on exertion. She state states she occasionally does get palpitations. She states at she occasionally misses medication doses. She states her lower extremity edema has improved. Patient was given 20mg IV Lasix x 1, started on PO Lasix 40mg daily. She has had 1.4L urine output over the past 24 hours. In 04/2020, patient was admitted with alerted mental status, lethargy and hypoglycemia after recent cholecystectomy. She was diagnosed with bilateral lower lobe pneumonia/right lower lobe abscess. Computed tomography scan showed multi loculated collection of the right lower lobe and she underwent thoracentesis bilaterally. Cytology was negative for malignancy and pleural fluid negative cultures. She underwent echocardiogram which revealed severely impaired ejection fraction 2530%, she was treated medically at that time. She follow up with Dr. Lundy in 05/2020, it was recommended that patient under a Lexiscan stress test however, patient did not follow up due to the Covid-19 pandemic. DIAGNOSTICS No EKG available at this time Patient not on telemetry to evaluate Chest xray mild interstitial edema and small to moderate size bilateral pleural effusions Laboratory reviewed, WBC 5.4, hemoglobin 9.5, platelets 225, sodium 138, potassium 4.0, BUN 18.6, serum Cr 0.5, proBNP 9,470. COVID-19 PCR negative Current home medications include aspirin 81mg daily, insulin, metformin, magnesium oxide, atorvastatin 20 mg daily, metoprolol tartrate 25 mg twice a day Echocardiogram 04/2020 revealed EF of 2530 percent, mild mitral regurgitation, mild pulmonary hypertension. Increase grade 2 diastolic dysfunction. 06/09 Patient seen and examined. Patient denies any chest pain or pressure currently. She does however admit to intermittent chest pain that has been ongoing over the last 6 months. Not always associated with exertion and sometimes more so when she is lying down at night. She also admits to chronic dyspnea with fairly minimal activity. She cannot do more than walk around her room with a cane and become short of breath. 06/10 Patient seen and examined. Patient denies any chest pain or pressure. Admits to some continued pain in the left leg. REVIEW OF SYSTEMS At the time of my exam: CONSTITUTIONAL: Denies fever or chills. CARDIOVASCULAR: Denies chest pain, shortness of breath, orthopnea, PND or palpitations. RESPIRATORY: Denies cough. GASTROINTESTINAL: Denies abdominal pain, diarrhea, constipation, nausea or vomiting. MUSCULOSKELETAL: Denies myalgias. NEUROLOGIC: Denies numbness, tingling, headacbe or weakness. ENDOCRINE: Denies fatigue, weight change, polydipsia or polyurina. GENITOURINARY: Denies burning, hematuria or urgency with micturation. HEMATOLOGIC: Denies history of anemia or bleeding. PHYSICAL EXAMINATION VS reviewed CONSTITUTIONAL: No apparent distress. HEENT: Head is normocephalic. Pupils are equal, round. Sclerae anicteric. Mucous membranes of the mouth are moist. No JVD. No carotid bruit. CHEST EXAMINATION: Lungs are clear to auscultation. No chest wall tenderness is noted on palpation or with deep breathing. HEART EXAMINATION: Regular rate and rhythm. S1, S2 heard. No murmurs, gallops or rub. ABDOMEN: Soft, nontender. Positive bowel sounds. EXTREMITIES: 2+ peripheral pulses, 2+ L> R bilateral lower extremity edema and no calf tenderness. NEUROLOGIC EXAMINATION: Patient is awake, alert and oriented x3. ASSESSMENT: Foot CT revealed Comminuted fracture calcaneus Cardiomyopathy, previous EF 25-30%, diagnosed during hospitalization in 04/2020 in the setting of pneumonia and possible pulmonary abscess, unclear if ischemic or non-ischemic at this time - echo pending Chronic systolic heart failure- appears euvolemic on exam Bilateral lower extremity edema Type 2 Diabetes, uncontrolled, HbA1C 13 Neuropathy and chronic pain Hypertension Dyslipidemia PLAN Continue to optimize heart failure regimen as able. In terms of risk stratification and preoperative clearance, patient with numerous comorbidities as well as chest pain and shortness breath with minimal activity with prior cardiomyopathy EF 25-30%. EF appears improved however does have more focal wall motion abnormalities with inferior and lateral hypokinesis. Check a Lexiscan stress test however concern of possible ischemia with more focal wall motion abnormalitiles. Objective - Vital Signs Vital signs: Vital Signs Temp 98.2 F 06/10/21 04:25 Pulse 78 06/10/21 08:08 Resp 18 06/10/21 04:25 BP 135/82 06/10/21 08:08 Pulse Ox 92 L 06/10/21 04:25 Intake & Output 06/09/21 06/10/21 06/10/21 19:59 06:59 18:59 Intake Total Balance Weight Intake: Oral Other: Voiding Method Bedside Commode Diaper Incontinent # Voids - Labs CBC & Chem 7: 06/09/21 07:34 06/09/21 07:34 Labs: Abnormal Lab Results - Last 24 Hours (Table) 06/09/21 06/09/21 06/09/21 Range/Units 07:34 12:54 17:32 Creatinine 0.4 L (0.6-1.5) mg/dL BUN/Creatinine Ratio 27.75 H (12.00-20.00) Ratio Glucose 142 H (70-110) mg/dL POC Glucose (mg/dL) 109 H 156 H (75-99) mg/dL Calcium 7.8 L (8.7-10.3) mg/dL 06/09/21 06/10/21 06/10/21 Range/Units 20:13 02:05 07:19 Creatinine (0.6-1.5) mg/dL BUN/Creatinine Ratio (12.00-20.00) Ratio Glucose (70-110) mg/dL POC Glucose (mg/dL) 262 H 120 H 112 H (75-99) mg/dL Calcium (8.7-10.3) mg/dL
[2021-06-10 12:24] LABS: Glucose,Whole Blood 179 mg/dL (75-99)
[2021-06-10 17:00] LABS: Glucose,Whole Blood 164 mg/dL (75-99)
[2021-06-10 20:37] LABS: Glucose,Whole Blood 233 mg/dL (75-99)
--- NOTE | 2021-06-10 23:15 | P.PN ---
Subjective Progress Note Date: 06/09/21 61-year-old female came in with compensative for left leg pain and patient has swelling in the left ankle area and redness, patient had a foot, ankle x-ray and venous Doppler of which are negative patient doesn't have any DVT. Patient blood sugars are very high patient is highly noncompliant with the her medication regimen. Patient can use to smoke about half a pack of cigarettes a day. Patient had low-grade fevers as today patient is presently on vancomycin for possible cellulitis patient was evaluated by orthopedic surgery and they recommended follow-up as an outpatient and stable to be discharged from orthopedic perspective and patient is on ceftezole as well for possible cellulitis. Patient also severely hyponatremic with sodium of 124 06/06/2021 Patient to the bedside, she is complaining of quite a bit of pain to that left ankle and foot. Orthopedic surgery had cleared her for discharge as there was no acute fracture. They recommended follow-up with podiatry for possible total contact casting outpatient. Per RN patient is unable to ambulate and bear weight on her foot and ankle, we did consult PT OT for discharge planning. In addition patient was retaining urine this morning and was straight catheterized x1. We will check a UA with culture. Patient is also complaining of some numbness and tingling to her fingers and extremities however she does have a chronic history of neuropathy related to diabetes. Labs today show hemoglobin of 10.2, sodium 135, BUN 21, creatinine 0.39. Blood pressure today is 120/67, she is afebrile and heart rate is 79. 06/07/2021 After reviewing patient states the bedside, there is still some swelling to that left ankle as well as erythema that is actually increasing from yesterday. Labs today show white count 5.4, hemoglobin 9.5. Urinalysis was positive, was started on IV Rocephin we will transition to oral antibiotics on discharge. Patient was evaluated by PT OT today was recommended subacute rehab on discharge as patient is not safe to return home due to high risk for falls. Patient states that she was taking her insulin on home however blood sugar was 600 on admission and she is experiencing lows in the early childhood education specialist after her p.m. dose of 70/30. We did change this to 20 units in the morning and 10 units with dinner. We will consult podiatry to see her here. We will anticipate discharge tomorrow to rehab. 06/08/21 Patient was limited to 90% on room as we did order a chest x-ray yesterday which shows infective exacerbation as there is no mild cardiomegaly with new mild interstitial edema and small to moderate-sized pleural effusions identified. We checked a serum BNP which was 9540. Patient was given a dose of IV Lasix 1 yesterday and was started on oral Lasix. She does not take any Lasix at home. Upon further investigation, an echocardiogram from April 2020 shows an ejection fraction of 25-30% with mild concentric left ventricular hypertrophy, increase lap grade 2 diastolic dysfunction, mild pulmonary hypertension, mild mitral regurgitation. We did consult cardiology. Patient was counseled about dietary who recommended a foot CT which showed a comminuted fracture to her left calcaneous. She does have a history of calcaneus fracture with evidence of Charcot joint. Podiatry is recommending nonweightbearing status to the left. Uric acid level is pending. Labs today are pending. 06/09/2021 Patient is currently sitting in the chair comfortably. Denies any complaints of chest pain or shortness of breath. Apparently patient has been having intermittent chest pain for the past 6 months. Patient is also having exertional dyspnea. Will need cardiac clearance for comminuted fracture of the calcaneus surgery. Pharmacist Aide is planning for outpatient procedure. 2D echocardiogram showed ejection fraction 25 to 30%. Noted to have focal wall motion abnormalities with inferior and lateral hypokinesis. Cardiology is planning for stress test on Friday. Laboratory showed WBC 6.0 hemoglobin 10.1 platelets 307 BUN 11 creatinine 0.4 calcium 7.8 and blood sugar is well controlled. ROS Constitutional: Denied any fatigue denied any fever. Cardio vascular: denied any chest pain, palpitations Gastrointestinal denied any nausea vomiting Pulmonary: Denied any shortness of breath cough Neurologic denied any new focal deficits All inpatient medications were reviewed and appropriate changes in these medications as dictated in the interval history and assessment and plan. Objective - Vital Signs Vital signs: Vital Signs Temp 98.8 F 06/09/21 21:00 Pulse 71 06/09/21 21:00 Resp 16 06/09/21 21:00 BP 91/57 06/09/21 21:00 Pulse Ox 91 L 06/09/21 21:00 Intake & Output 06/09/21 06/09/2106/10/21 06:59 18:59 05:59 Intake Total 590 Balance 590 Weight 57.5 kg Intake: Oral 590 Other: Voiding Method Bedside Commode Diaper Incontinent # Voids 2 4 - Exam PHYSICAL EXAMINATION: GENERAL: The patient is alert and oriented x3, not in any acute distress. Well developed, well nourished. HEENT: Pupils are round and equally reacting to light. EOMI. No scleral icterus. No conjunctival pallor. Normocephalic, atraumatic. No pharyngeal erythema. No thyromegaly. CARDIOVASCULAR: S1 and S2 present. No murmurs, rubs, or gallops. PULMONARY: Chest is clear to auscultation, no wheezing or crackles. ABDOMEN: Soft, nontender, nondistended, normoactive bowel sounds. No palpable organomegaly. MUSCULOSKELETAL: Left ankle and left foot swelling predominantly in the calcaneal area EXTREMITIES: No cyanosis, clubbing. There is soft tissue swelling as described above. NEUROLOGICAL: Gross neurological examination did not reveal any focal deficits. SKIN: Redness of the left ankle, although there is soft tissue swelling - Labs CBC & Chem 7: 06/09/21 07:34 06/09/21 07:34 Labs: Abnormal Lab Results - Last 24 Hours (Table) 06/09/21 06/09/21 06/09/21 Range/Units 04:20 07:34 07:34 RBC 3.46 L (3.80-5.40) m/uL Hgb 10.2 L (11.4-16.0) gm/dL Hct 31.9 L (34.0-46.0) % Lymphocytes # 0.8 L (1.0-4.8) k/uL Creatinine 0.4 L (0.6-1.5) mg/dL BUN/Creatinine Ratio 27.75 H (12.00-20.00) Ratio Glucose 142 H (70-110) mg/dL POC Glucose (mg/dL) 125 H (75-99) mg/dL Calcium 7.8 L (8.7-10.3) mg/dL 06/09/21 06/09/21 06/09/21 Range/Units 08:09 12:54 17:32 RBC (3.80-5.40) m/uL Hgb (11.4-16.0) gm/dL Hct (34.0-46.0) % Lymphocytes # (1.0-4.8) k/uL Creatinine (0.6-1.5) mg/dL BUN/Creatinine Ratio (12.00-20.00) Ratio Glucose (70-110) mg/dL POC Glucose (mg/dL) 155 H 109 H 156 H (75-99) mg/dL Calcium (8.7-10.3) mg/dL 06/09/21 Range/Units 20:13 RBC (3.80-5.40) m/uL Hgb (11.4-16.0) gm/dL Hct (34.0-46.0) % Lymphocytes # (1.0-4.8) k/uL Creatinine (0.6-1.5) mg/dL BUN/Creatinine Ratio (12.00-20.00) Ratio Glucose (70-110) mg/dL POC Glucose (mg/dL) 262 H (75-99) mg/dL Calcium (8.7-10.3) mg/dL Assessment and Plan Assessment: Assessment and plan -Left calcaneus comminuted fracture as evidenced on f/u foot CT with soft tissue swelling at the ankle and foot, podiatry and ortho following -Intermittent chest pains and exertional dyspnea for the past 6 months. -Chronic congestive heart failure, systolic and diastolic most recent EF is 25- 30%, suspect mild exacerbation,consulted cardiology and started the patient on oral Lasix. -Type 2 diabetes with hyperglycemia due to noncompliance with medications the patient did experience a blood sugar in the 90s once resumed on home dose of insulin, decreased 70/30 PM dose. -Urinary tract infection with intertrigo present, nystatin cream and we will add oral Keflex. 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 -Leukocytosis due to assessment 1, resolved -Continued nicotine use: Counseling was provided -Fibromyalgia -Hyperlipidemia DVT prophylaxis: Lovenox Time with Patient: Greater than 30
--- NOTE | 2021-06-10 23:16 | P.PN ---
Subjective Progress Note Date: 06/10/21 61-year-old female came in with compensative for left leg pain and patient has swelling in the left ankle area and redness, patient had a foot, ankle x-ray and venous Doppler of which are negative patient doesn't have any DVT. Patient blood sugars are very high patient is highly noncompliant with the her medication regimen. Patient can use to smoke about half a pack of cigarettes a day. Patient had low-grade fevers as today patient is presently on vancomycin for possible cellulitis patient was evaluated by orthopedic surgery and they recommended follow-up as an outpatient and stable to be discharged from orthopedic perspective and patient is on ceftezole as well for possible cellulitis. Patient also severely hyponatremic with sodium of 124 06/06/2021 Patient to the bedside, she is complaining of quite a bit of pain to that left ankle and foot. Orthopedic surgery had cleared her for discharge as there was no acute fracture. They recommended follow-up with podiatry for possible total contact casting outpatient. Per RN patient is unable to ambulate and bear weight on her foot and ankle, we did consult PT OT for discharge planning. In addition patient was retaining urine this morning and was straight catheterized x1. We will check a UA with culture. Patient is also complaining of some numbness and tingling to her fingers and extremities however she does have a chronic history of neuropathy related to diabetes. Labs today show hemoglobin of 10.2, sodium 135, BUN 21, creatinine 0.39. Blood pressure today is 120/67, she is afebrile and heart rate is 79. 06/07/2021 After reviewing patient states the bedside, there is still some swelling to that left ankle as well as erythema that is actually increasing from yesterday. Labs today show white count 5.4, hemoglobin 9.5. Urinalysis was positive, was started on IV Rocephin we will transition to oral antibiotics on discharge. Patient was evaluated by PT OT today was recommended subacute rehab on discharge as patient is not safe to return home due to high risk for falls. Patient states that she was taking her insulin on home however blood sugar was 600 on admission and she is experiencing lows in the transplant surgeon after her p.m. dose of 70/30. We did change this to 20 units in the morning and 10 units with dinner. We will consult podiatry to see her here. We will anticipate discharge tomorrow to rehab. 06/08/21 Patient was limited to 90% on room as we did order a chest x-ray yesterday which shows infective exacerbation as there is no mild cardiomegaly with new mild interstitial edema and small to moderate-sized pleural effusions identified. We checked a serum BNP which was 9540. Patient was given a dose of IV Lasix 1 yesterday and was started on oral Lasix. She does not take any Lasix at home. Upon further investigation, an echocardiogram from April 2020 shows an ejection fraction of 25-30% with mild concentric left ventricular hypertrophy, increase lap grade 2 diastolic dysfunction, mild pulmonary hypertension, mild mitral regurgitation. We did consult cardiology. Patient was counseled about dietary who recommended a foot CT which showed a comminuted fracture to her left calcaneous. She does have a history of calcaneus fracture with evidence of Charcot joint. Podiatry is recommending nonweightbearing status to the left. Uric acid level is pending. Labs today are pending. 06/09/2021 Patient is currently sitting in the chair comfortably. Denies any complaints of chest pain or shortness of breath. Apparently patient has been having intermittent chest pain for the past 6 months. Patient is also having exertional dyspnea. Will need cardiac clearance for comminuted fracture of the calcaneus surgery. Chicken Vaccinator is planning for outpatient procedure. 2D echocardiogram showed ejection fraction 25 to 30%. Noted to have focal wall motion abnormalities with inferior and lateral hypokinesis. Cardiology is planning for stress test on Friday. Laboratory showed WBC 6.0 hemoglobin 10.1 platelets 307 BUN 11 creatinine 0.4 calcium 7.8 and blood sugar is well controlled. 06/10/2021 Patient is currently sitting in the chair comfortably. Denies any complaints of chest pain. No nausea vomiting abdominal pain or diarrhea. Denies any dysuria or hematuria. Blood pressures elevated this afternoon at 155/94 pulse ox is 90% on room air laboratory data reviewed. Blood sugar is well controlled. Patient is scheduled for Lexiscan stress test on Friday. ROS Constitutional: Denied any fatigue denied any fever. Cardio vascular: denied any chest pain, palpitations Gastrointestinal denied any nausea vomiting Pulmonary: Denied any shortness of breath cough Neurologic denied any new focal deficits All inpatient medications were reviewed and appropriate changes in these medications as dictated in the interval history and assessment and plan. Objective - Vital Signs Vital signs: Vital Signs Temp 98.7 F 06/10/21 13:00 Pulse 76 06/10/21 13:00 Resp 16 06/10/21 13:00 BP 155/94 06/10/21 13:00 Pulse Ox 95 06/10/21 13:00 Intake & Output 06/09/21 06/10/21 06/10/21 19:59 06:59 18:59 Intake Total 1040 Balance 1040 Weight Intake: Oral 1040 Other: Voiding Method Bedside Commode Diaper Incontinent # Voids 3 - Exam PHYSICAL EXAMINATION: GENERAL: The patient is alert and oriented x3, not in any acute distress. Well developed, well nourished. HEENT: Pupils are round and equally reacting to light. EOMI. No scleral icterus. No conjunctival pallor. Normocephalic, atraumatic. No pharyngeal erythema. No thyromegaly. CARDIOVASCULAR: S1 and S2 present. No murmurs, rubs, or gallops. PULMONARY: Chest is clear to auscultation, no wheezing or crackles. ABDOMEN: Soft, nontender, nondistended, normoactive bowel sounds. No palpable organomegaly. MUSCULOSKELETAL: Left ankle and left foot swelling predominantly in the calcaneal area EXTREMITIES: No cyanosis, clubbing. There is soft tissue swelling as described above. NEUROLOGICAL: Gross neurological examination did not reveal any focal deficits. SKIN: Redness of the left ankle, although there is soft tissue swelling - Labs CBC & Chem 7: 06/11/21 05:47 06/09/21 07:34 Labs: Abnormal Lab Results - Last 24 Hours (Table) 06/09/21 06/10/21 06/10/21 Range/Units 20:13 02:05 07:19 POC Glucose (mg/dL) 262 H 120 H 112 H (75-99) mg/dL 06/10/21 06/10/21 Range/Units 12:13 16:56 POC Glucose (mg/dL) 179 H 164 H (75-99) mg/dL Assessment and Plan Assessment: Assessment and plan -Left calcaneus comminuted fracture as evidenced on f/u foot CT with soft tissue swelling at the ankle and foot, podiatry and ortho has seen the patient. -Intermittent chest pains and exertional dyspnea for the past 6 months. -Chronic congestive heart failure, systolic and diastolic most recent EF is 25- 30%, suspect mild exacerbation,consulted cardiology and started the patient on oral Lasix. -Type 2 diabetes with hyperglycemia due to noncompliance with medications the patient did experience a blood sugar in the 90s once resumed on home dose of insulin, decreased 70/30 PM dose. -Urinary tract infection with intertrigo present, nystatin cream and we will add oral Keflex. 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 -Leukocytosis due to assessment 1, resolved -Continued nicotine use: Counseling was provided -Fibromyalgia -Hyperlipidemia DVT prophylaxis: Lovenox Time with Patient: Greater than 30
[2021-06-11 02:03] LABS: Glucose,Whole Blood 117 mg/dL (75-99)
[2021-06-11] MEDS: HYDROcodone/APAP 10-325MG 1 EACH TAB PO PRN ×3 (02:07→16:18)
[2021-06-11] MEDS ORDERED: REGADENOSON 0.4 MG/5 ML SYRINGE IV PRN (05:00)
[2021-06-11 06:16] LABS: Basophils % (A) 1 %; Eosinophils # (A) 0.3 k/uL (0-0.7); Eosinophils % (A) 4 %; HCT 32.6 % (34.0-46.0); HGB 10.3 gm/dL (11.4-16.0); Hypochromasia Slight; Lymphocytes # (A) 1.6 k/uL (1.0-4.8); Lymphocytes % (A) 28 %; MCHC 31.7 g/dL (31.0-37.0); MCV 91.5 fL (80.0-100.0); Mean Platelet Volume 6.7; Monocytes # (A) 0.6 k/uL (0-1.0); Monocytes % (A) 9 %; Neutrophils # (A) 3.2 k/uL (1.3-7.7); Neutrophils % (A) 56 %; Platelet Count 398 k/uL (150-450); RBC 3.56 m/uL (3.80-5.40); RDW 14.5 % (11.5-15.5); WBC 5.8 k/uL (3.8-10.6)
[2021-06-11] MEDS ORDERED: AMINOPHYLLINE 500 MG/20 ML VIAL IV PRN (07:00)
[2021-06-11 07:43] LABS: Glucose,Whole Blood 94 mg/dL (75-99)
[2021-06-11] MEDS ORDERED: CAFFEINE CITRATE 60 MG/3 ML VIAL IV PRN (08:00)
[2021-06-11] MEDS: INSULIN ASPART (NovoLOG) 100 UNIT/ML VIAL SQ SCH ×2 (08:06→13:54)
[2021-06-11] MEDS: CEPHALEXIN 250 MG CAP PO SCH (08:43)
[2021-06-11] MEDS: MAGNESIUM OXIDE 400 MG TAB PO SCH ×2 (08:43→16:18)
[2021-06-11] MEDS: ENOXAPARIN 40 MG/0.4 ML SYRINGE SQ SCH (08:43)
[2021-06-11] MEDS: ASPIRIN 81 MG PO SCH (08:43)
[2021-06-11] MEDS: SPIRONOLACTONE 25 MG TAB PO SCH (08:43)
[2021-06-11] MEDS: PANTOPRAZOLE 40 MG TABLET PO SCH (08:43)
[2021-06-11] MEDS: lisinopriL 5 MG TAB PO SCH (08:43)
[2021-06-11] MEDS: ATORVASTATIN 20 MG TAB PO SCH (08:43)
[2021-06-11] MEDS: NICOTINE 14MG/24HR PATCH TRANSDERM SCH (08:43)
[2021-06-11] MEDS: METOPROLOL SUCCINATE (ER) 25 MG TAB.ER.24H PO SCH (08:43)
[2021-06-11] MEDS: DULoxetine HCL 30 MG CAPSULE.DR PO SCH (08:43)
[2021-06-11] MEDS: NYSTATIN 100,000UNIT/GM CREAM 30 GM TUBE TOPICAL SCH (08:44)
[2021-06-11] MEDS: GABAPENTIN 100 MG CAP PO SCH (08:44)
[2021-06-11] MEDS: FUROSEMIDE 40 MG TAB PO SCH (08:44)
[2021-06-11 08:50] VITALS: PULSE 81
--- NOTE | 2021-06-11 11:11 | P.PN ---
Subjective Patient is a 61-year-old female with a history of type 2 diabetes, neuropathy, chronic pain, cardiomyopathy (unknown etiology at this time), fibromyalgia, dyslipidemia, cholecystectomy for an acute cholecystitis on 04/08/2020. Patient was supposed to follow up with Dr. Lundy in the office, however has not followed up since 05/2022 for COVID-19 pandemic. We are being consulted for congestive heart failure. Patient presents to the emergency department on 06/04/21 with left foot pain and swelling. She states she has been having increased pain in her left foot for weeks. On 06/04 she states she slipped and fell on her left foot when getting out of bed, she had increased pain and swelling. She called her doctor who advised her to get her foot evaluated. Her brother brought her to the emergency department. Per the ER she had swelling to her left leg up to her knee. Xrays revealed soft tissue swelling, no fracture. Orthopedics and Podiatry have been consulted. Foot CT revealed Comminuted fracture calcaneus, loss of boehler's angle, soft tissue swelling at ankle and foot. In 04/2020, patient was admitted with alerted mental status, lethargy and hypoglycemia after recent cholecystectomy. She was diagnosed with bilateral lower lobe pneumonia/right lower lobe abscess. Computed tomography scan showed multi loculated collection of the right lower lobe and she underwent thoracentesis bilaterally. Cytology was negative for malignancy and pleural fluid negative cultures. She underwent echocardiogram which revealed severely impaired ejection fraction 2530%, she was treated medically at that time. She follow up with Dr. Lundy in 05/2020, it was recommended that patient under a Lexiscan stress test however, patient did not follow up due to the Covid-19 pandemic. 06/11/2021 Patient seen and examined. Patient seen and examined at bedside, She endorses back pain. She denies chest pain, shortness of breath, orthopnea or PND. Denies dyspnea on exertion. Repeat echocardiogram revealed EF of 4045 percent, mid lateral, mid posterior, apical lateral, apical LV wall hypokinetic, mild tricuspid regurgitation, moderate pulmonary hypertension. She's currently maintained on aspirin 81mgdaily, atorvastatin 20 mg daily, PO Lasix 40 mg daily, metoprolol succinate 25 mg daily, lisinopril 5 mg daily, spironolactone 25 mg daily PHYSICAL EXAMINATION Vitals blood pressure 160/88, heart rate 70s-80s, afebrile, maintaining oxygen saturations on room air. CONSTITUTIONAL: No apparent distress. HEENT: Neck Supple. No JVD. CHEST EXAMINATION: Lungs are clear to auscultation. No chest wall tenderness is noted on palpation or with deep breathing. HEART EXAMINATION: Regular rate and rhythm. S1, S2 heard. No murmurs, gallops or rub. ABDOMEN: Soft, nontender. Positive bowel sounds. EXTREMITIES: 2+ peripheral pulses, 2+ L> R bilateral lower extremity edema and no calf tenderness. NEUROLOGIC EXAMINATION: Patient is awake, alert and oriented x3. ASSESSMENT: Foot CT revealed Comminuted fracture calcaneus Cardiomyopathy, previous EF 25-30%, diagnosed during hospitalization in 04/2020 in the setting of pneumonia and possible pulmonary abscess, unclear if ischemic or non-ischemic at this time. Chronic systolic heart failure- appears euvolemic on exam Bilateral lower extremity edema Type 2 Diabetes, uncontrolled, HbA1C 13 Neuropathy and chronic pain Hypertension Dyslipidemia PLAN Continue to optimize heart failure regimen and adjust medications as able. Increase metoprolol succinate. In terms of risk stratification and preoperative clearance, patient with numerous comorbidities as well as chest pain and shortness breath with minimal activity with prior cardiomyopathy EF 25-30%. EF appears improved however does have more focal wall motion abnormalities with inferior and lateral hypokinesis. Plan for Lexiscan stress test today Objective - Vital Signs Vital signs: Vital Signs Temp 98.8 F 06/11/21 05:19 Pulse 81 06/11/21 08:50 Resp 14 06/11/21 05:19 BP 160/88 06/11/21 08:50 Pulse Ox 92 L 06/11/21 05:19 Intake & Output 06/10/21 06/11/21 06/11/21 18:59 06:59 18:59 Intake Total 1040 100 Balance 1040 100 Weight 63.5 kg Intake: Oral 1040 100 Other: Voiding Method Bedside Commode Bedside Commode Diaper Diaper Incontinent Incontinent # Voids 3 - Labs CBC & Chem 7: 06/11/21 05:47 06/09/21 07:34 Labs: Abnormal Lab Results - Last 24 Hours (Table) 06/10/21 06/10/21 06/10/21 Range/Units 12:13 16:56 20:35 RBC (3.80-5.40) m/uL Hgb (11.4-16.0) gm/dL Hct (34.0-46.0) % POC Glucose (mg/dL) 179 H 164 H 233 H (75-99) mg/dL 06/11/21 06/11/21 Range/Units 02:02 05:47 RBC 3.56 L (3.80-5.40) m/uL Hgb 10.3 L (11.4-16.0) gm/dL Hct 32.6 L (34.0-46.0) % POC Glucose (mg/dL) 117 H (75-99) mg/dL
[2021-06-11 12:31] VITALS: BMI 24.7
[2021-06-11] MEDS: HYDROmorphone 0.5 MG/0.5 ML SYRINGE IVP PRN (12:37)
[2021-06-11 12:38] LABS: Glucose,Whole Blood 129 mg/dL (75-99)
[2021-06-11] MEDS: INSULN ASP PRT/INSULIN ASPART 100 UNIT/ML 10 ML VIAL SQ SCH (12:41)
[2021-06-11 12:57] VITALS: BP 152/87; RESP 17; TEMP 97.8
--- NOTE | 2021-06-11 13:01 | NM ---
EXAMINATION TYPE: NM stress lexiscan cardiolite DATE OF EXAM: 06/11/2021 COMPARISON: Prior Lexiscan Cardiolite study January 11, 2016 HISTORY: Presurgical study. History of heart attack and diabetes. History of tobacco use and COPD. Fa lam history of heart attack. TECHNIQUE: After the intravenous administration of 10.2 mCi Tc 99m Sestamibi - Cardiolite resting SP ECT images acquired 45 minutes post injection. The patient received 0.4mg Lexiscan, 24.5 mCi Tc 99m Sestamibi - Stress images obtained [address] injection FINDINGS: Review of stress and rest SPECT images demonstrates poor uptake involving stress and rest images in t he lateral left ventricular wall seen best on short axis and horizontal long axis views consistent wi th old infarct. Gated analysis shows overall diminished contractibility with estimated left ventricu lar ejection fraction of 44 %, now diminished from the normal range. IMPRESSION: Significant interval infarct in the left circumflex distribution since 2015 study is old in age. Correlate clinically. No reversible ischemia seen.
--- NOTE | 2021-06-11 14:51 | EST ---
EXERCISE STRESS AGE: 61 SEX: F HT: 5'3" WT: 139 lbs. PROTOCOL: Lexiscan STAGE: NA DURATION OF EXERCISE: NA HEART RATE REST: 77 BLOOD PRESSURE REST: 145/87 MAXIMUM HEART RATE ACHIEVED: 88 MAXIMUM BLOOD PRESSURE: 145/87 85% MPHR: 136 100% MPHR: 160 METS: NA INDICATIONS: Family history heart disease CLINICAL INFORMATION: Baseline rhythm is sinus mechanism, rate of 77, normal axis and intervals, nonspecific ST-T wave changes. Occasional PVC. Baseline blood pressure 145/87 mmHg. Patient received injection of Lexiscan. Electrocardiograph monitoring revealed no evidence of diagnostic ischemic ST deviation. Cardiolite was injected per protocol. CONCLUSION: 1. Nondiagnostic electrocardiograph stress testing. 2. Nuclear images will be reported separately. MMODL / IJN: [id number] /
[2021-06-11 17:01] LABS: Glucose,Whole Blood 186 mg/dL (75-99)
--- NOTE | 2021-06-11 17:51 | P.DS ---
Providers Date of admission: 06/04/21 21:08 Expected date of discharge: 06/11/21 Attending physician: John Allen Consults: 06/04/21 18:58 Consult Physician Routine Consulting Provider: Frederick Cisneros Consult Reason/Comments: left ankle pain Do you want consulting provider notified?: Yes 06/07/21 13:21 Consult Physician Routine Consulting Provider: Vinny Carrillo Consult Reason/Comments: left ankle swelling, recommendation from ortho to see podiatry Do you want consulting provider notified?: Yes 06/08/21 11:40 Consult Physician Routine Consulting Provider: Tonio Fairchild Consult Reason/Comments: Hx, CHF EF 25% Do you want consulting provider notified?: Yes Primary care physician: Vince Marcos Hospital Course: discharge diagnosis -Left calcaneus comminuted fracture as evidenced on f/u foot CT with soft tissue swelling at the ankle and foot, podiatry and ortho has seen the patient.outpatient follow-up for surgery.cleared from cardiology. -Intermittent chest pains and exertional dyspnea for the past 6 months..stress test showedno evidence of reversible ischemia. -Chronic congestive heart failure, systolic and diastolic most recent EF is 25- 30%, suspect mild exacerbation,consulted cardiology and started the patient on oral Lasix. -Type 2 diabetes with hyperglycemia due to noncompliance with medications the patient did experience a blood sugar in the 90s once resumed on home dose of insulin, decreased 70/30 PM dose. -Urinary tract infection with intertrigo present, nystatin cream and we will add oral Keflex. 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 -Leukocytosis due to assessment 1, resolved -Continued nicotine use: Counseling was provided -Fibromyalgia -Hyperlipidemia Hospital course 61-year-old female came in with compensative for left leg pain and patient has swelling in the left ankle area and redness, patient had a foot, ankle x-ray and venous Doppler of which are negative patient doesn't have any DVT. Patient blood sugars are very high patient is highly noncompliant with the her medication regimen. Patient can use to smoke about half a pack of cigarettes a day. Patient had low-grade fevers as today patient is presently on vancomycin for possible cellulitis patient was evaluated by orthopedic surgery and they recommended follow-up as an outpatient and stable to be discharged from orthopedic perspective and patient is on ceftezole as well for possible cellulitis. Patient also severely hyponatremic with sodium of 124 06/06/2021 Patient to the bedside, she is complaining of quite a bit of pain to that left ankle and foot. Orthopedic surgery had cleared her for discharge as there was no acute fracture. They recommended follow-up with podiatry for possible total contact casting outpatient. Per RN patient is unable to ambulate and bear weight on her foot and ankle, we did consult PT OT for discharge planning. In addition patient was retaining urine this morning and was straight catheterized x1. We will check a UA with culture. Patient is also complaining of some numbness and tingling to her fingers and extremities however she does have a chronic history of neuropathy related to diabetes. Labs today show hemoglobin of 10.2, sodium 135, BUN 21, creatinine 0.39. Blood pressure today is 120/67, she is afebrile and heart rate is 79. 06/07/2021 After reviewing patient states the bedside, there is still some swelling to that left ankle as well as erythema that is actually increasing from yesterday. Labs today show white count 5.4, hemoglobin 9.5. Urinalysis was positive, was started on IV Rocephin we will transition to oral antibiotics on discharge. Patient was evaluated by PT OT today was recommended subacute rehab on discharge as patient is not safe to return home due to high risk for falls. 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 dose of 70/30. We did change this to 20 units in the morning and 10 units with dinner. We will consult podiatry to see her here. We will anticipate discharge tomorrow to rehab. 06/08/21 Patient was limited to 90% on room as we did order a chest x-ray yesterday which shows infective exacerbation as there is no mild cardiomegaly with new mild interstitial edema and small to moderate-sized pleural effusions identified. We checked a serum BNP which was 9540. Patient was given a dose of IV Lasix 1 yesterday and was started on oral Lasix. She does not take any Lasix at home. Upon further investigation, an echocardiogram from April 2020 shows an ejection fraction of 25-30% with mild concentric left ventricular hypertrophy, increase lap grade 2 diastolic dysfunction, mild pulmonary hypertension, mild mitral regurgitation. We did consult cardiology. Patient was counseled about dietary who recommended a foot CT which showed a comminuted fracture to her left calcaneous. She does have a history of calcaneus fracture with evidence of Charcot joint. Podiatry is recommending nonweightbearing status to the left. Uric acid level is pending. Labs today are pending. 06/09/2021 Patient is currently sitting in the chair comfortably. Denies any complaints of chest pain or shortness of breath. Apparently patient has been having intermittent chest pain for the past 6 months. Patient is also having exertional dyspnea. Will need cardiac clearance for comminuted fracture of the calcaneus surgery. [employer] is planning for outpatient procedure. 2D echocardiogram showed ejection fraction 25 to 30%. Noted to have focal wall motion abnormalities with inferior and lateral hypokinesis. Cardiology is planning for stress test on Friday. Laboratory showed WBC 6.0 hemoglobin 10.1 platelets 307 BUN 11 creatinine 0.4 calcium 7.8 and blood sugar is well controlled. 06/10/2021 Patient is currently sitting in the chair comfortably. Denies any complaints of chest pain. No nausea vomiting abdominal pain or diarrhea. Denies any dysuria or hematuria. Blood pressures elevated this afternoon at 155/94 pulse ox is 90% on room air laboratory data reviewed. Blood sugar is well controlled. Patient is scheduled for Lexiscan stress test on Friday. 06/11/2021 Patient is currently lying in the bed comfortably. Awake alert oriented 3. Lexiscan stress test is negative. patient is cleared for orthopedic surgery and is supposed to follow up with her foot doctor as an outpatient. Patient denied any chest pain. No nausea vomiting or abdominal pain or diarrhea. No other acute overnight issues.patient is being discharged to rehab today. Discharge medication because he just was done. PHYSICAL EXAMINATION: GENERAL: The patient is alert and oriented x3, not in any acute distress. Well developed, well nourished. HEENT: Pupils are round and equally reacting to light. EOMI. No scleral icterus. No conjunctival pallor. Normocephalic, atraumatic. No pharyngeal erythema. No thyromegaly. CARDIOVASCULAR: S1 and S2 present. No murmurs, rubs, or gallops. PULMONARY: Chest is clear to auscultation, no wheezing or crackles. ABDOMEN: Soft, nontender, nondistended, normoactive bowel sounds. No palpable organomegaly. MUSCULOSKELETAL: Left ankle and left foot swelling predominantly in the calcaneal area EXTREMITIES: No cyanosis, clubbing. There is soft tissue swelling as described above. NEUROLOGICAL: Gross neurological examination did not reveal any focal deficits. SKIN: Redness of the left ankle, although there is soft tissue swelling Vital Signs 06/11/21 06/11/21 08:50 12:56 Temperature 97.8 F Pulse Rate [ 81 Pulse Oximetery ] Pulse Rate [ 81 Right] Respiratory 17 Rate Blood Pressure 160/88 152/87 [Right Arm] O2 Sat by Pulse 93 L Oximetry Total time taken greater than 35 minutes including 18 minutes for counseling and coordination of care. Patient Condition at Discharge: Good Plan - Discharge Summary New Discharge Prescriptions: New Spironolactone [Aldactone] 25 mg PO DAILY #0 tab Furosemide [Lasix] 40 mg PO DAILY tab Nystatin 100,000Unit/gm Cream [Mycostatin Cream] 1 applic TOPICAL BID gm Insuln Asp Prt/Insulin Aspart [NovoLOG MIX 70-30 VIAL] 15 unit SQ AC-BRKFST ml Insuln Asp Prt/Insulin Aspart [NovoLOG MIX 70-30 VIAL] 10 unit SQ AC-SUPPER ml Nicotine 14Mg/24Hr Patch [Habitrol] 1 patch TRANSDERM DAILY #4 patch Cephalexin [Keflex] 500 mg PO Q12HR 7 Days #14 cap lisinopriL [Zestril] 5 mg PO DAILY #30 tab Metoprolol Succinate (ER) [Toprol XL] 50 mg PO DAILY #30 tablet Continue DULoxetine HCL [Cymbalta] 30 mg PO DAILY metFORMIN HCL [Glucophage] 1,000 mg PO BID hydrOXYzine HCL [Atarax] 25 - 50 mg PO HS PRN PRN Reason: SLEEP Magnesium Oxide 400 mg PO AC-BID #60 tablet Gabapentin [Neurontin] 200 mg PO HS #3 cap Pantoprazole Sodium 40 mg PO DAILY Atorvastatin [Lipitor] 20 mg PO DAILY Aspirin EC [Ecotrin Low Dose] 81 mg PO DAILY Gabapentin [Neurontin] 100 mg PO DAILY #3 cap HYDROcodone/APAP 10-325MG [Cranston 10-325] 1 tab PO Q6H PRN #6 tab PRN Reason: Pain Discontinued Insulin NPH Hum/Reg Insulin Hm [Novolin 70-30 Flexpen] 30 units SQ BID- W/MEALS lisinopriL [Zestril] 5 mg PO DAILY #30 tab Spironolactone [Aldactone] 25 mg PO DAILY Furosemide [Lasix] 40 mg PO BID Carvedilol [Coreg] 3.125 mg PO BID Ibuprofen [Motrin] 800 mg PO Q8H PRN PRN Reason: Pain Or Fever > 100.5 Ibuprofen/Diphenhydramine HCl [Advil Pm Liqui-Gels] 2 cap PO HS PRN PRN Reason: SLEEP Discharge Medication List DULoxetine HCL [Cymbalta] 30 mg PO DAILY 03/12/20 [History] metFORMIN HCL [Glucophage] 1,000 mg PO BID 03/12/20 [History] Atorvastatin [Lipitor] 20 mg PO DAILY 01/10/21 [History] Pantoprazole Sodium 40 mg PO DAILY 01/10/21 [History] hydrOXYzine HCL [Atarax] 25 - 50 mg PO HS PRN 01/10/21 [History] Magnesium Oxide 400 mg PO AC-BID #60 tablet 01/13/21 [Rx] Aspirin EC [Ecotrin Low Dose] 81 mg PO DAILY 06/05/21 [History] Cephalexin [Keflex] 500 mg PO Q12HR 7 Days #14 cap 06/06/21 [Rx] Nicotine 14Mg/24Hr Patch [Habitrol] 1 patch TRANSDERM DAILY #4 patch 06/06/21 [Rx] Furosemide [Lasix] 40 mg PO DAILY tab 06/08/21 [Rx] Gabapentin [Neurontin] 100 mg PO DAILY #3 cap 06/08/21 [Rx] Gabapentin [Neurontin] 200 mg PO HS #3 cap 06/08/21 [Rx] HYDROcodone/APAP 10-325MG [Cranston 10-325] 1 tab PO Q6H PRN #6 tab 06/08/21 [Rx] Insuln Asp Prt/Insulin Aspart [NovoLOG MIX 70-30 VIAL] 10 unit SQ AC-SUPPER ml 06/08/21 [Rx] Insuln Asp Prt/Insulin Aspart [NovoLOG MIX 70-30 VIAL] 15 unit SQ AC-BRKFST ml 06/08/21 [Rx] Nystatin 100,000Unit/gm Cream [Mycostatin Cream] 1 applic TOPICAL BID gm 06/08/21 [Rx] Spironolactone [Aldactone] 25 mg PO DAILY #0 tab 06/08/21 [Rx] lisinopriL [Zestril] 5 mg PO DAILY #30 tab 06/08/21 [Rx] Metoprolol Succinate (ER) [Toprol XL] 50 mg PO DAILY #30 tablet 06/11/21 [Rx] Follow up Appointment(s)/Referral(s): Josep Lundy MD [STAFF PHYSICIAN] - 1 Week Frederick Cisneros DO [Doctor of Osteopathic Medicine] - 1 Week Vince Marcos III, MD [Primary Care Provider] - 1-2 days Vinny Carrillo DPM [STAFF PHYSICIAN] - 1 Week [facility], [NON-STAFF] - 1 Week Ambulatory/Diagnostic Orders: Basic Metabolic Panel [LAB.AMB] Time Frame: 2 Days, Location: None Selected Complete Blood Count w/diff [LAB.AMB] Time Frame: 2 Days, Location: None Selected Discharge Disposition: TRANSFER TO SNF/ECF
[2021-06-11 22:40] LABS: African American GFR (CKD) 131.2 (60.0-200.0); Anion Gap 13.6 mmol/L (4.00-12.00); Blood Urea Nitrogen 6.4 mg/dL (9.0-27.0); Calcium 7.9 mg/dL (8.7-10.3); Carbon Dioxide 26.4 mmol/L (21.6-31.8); Non-African American GFR(CKD) 113.2 (60.0-200.0); Potassium 3.4 mmol/L (3.5-5.5)
[2021-06-12] MEDS ORDERED: METOPROLOL SUCCINATE (ER) 50 MG TAB.ER.24H PO SCH (09:00)
== END 2021-06-11 18:17 | DRG 562 ==
LOC: EC 15:14 → 5NMEDONC 21:08
PROVIDERS: ADMIT Hospitalist; ATTEND Hospitalist
DX: S92.002A Unspecified fracture of left calcaneus, initial encounter for closed fracture (principal); I50.43 Acute on chronic combined systolic (congestive) and diastolic (congestive) heart failure; L03.116 Cellulitis of left lower limb; E87.1 Hypo-osmolality and hyponatremia; I42.9 Cardiomyopathy, unspecified; N39.0 Urinary tract infection, site not specified; W06.XXXA Fall from bed, initial encounter; L30.4 Erythema intertrigo; E11.42 Type 2 diabetes mellitus with diabetic polyneuropathy; E11.610 Type 2 diabetes mellitus with diabetic neuropathic arthropathy; E11.65 Type 2 diabetes mellitus with hyperglycemia; E78.5 Hyperlipidemia, unspecified; F17.210 Nicotine dependence, cigarettes, uncomplicated; Z71.6 Tobacco abuse counseling; F32.9 Major depressive disorder, single episode, unspecified; G89.4 Chronic pain syndrome; I11.0 Hypertensive heart disease with heart failure; I27.20 Pulmonary hypertension, unspecified; M19.90 Unspecified osteoarthritis, unspecified site; I34.0 Nonrheumatic mitral (valve) insufficiency; M54.40 Lumbago with sciatica, unspecified side; M79.7 Fibromyalgia; Z20.822 Contact with and (suspected) exposure to COVID-19; I25.89 Other forms of chronic ischemic heart disease; Z79.4 Long term (current) use of insulin; Z79.82 Long term (current) use of aspirin; Z79.84 Long term (current) use of oral hypoglycemic drugs; Z79.899 Other long term (current) drug therapy; Z80.49 Family history of malignant neoplasm of other genital organs; Z82.5 Family history of asthma and other chronic lower respiratory diseases; Z91.14 Patient's other noncompliance with medication regimen; Z91.19 Patient's noncompliance with other medical treatment and regimen; Z91.81 History of falling; Z86.19 Personal history of other infectious and parasitic diseases; Z87.440 Personal history of urinary (tract) infections; Z90.49 Acquired absence of other specified parts of digestive tract; Z98.890 Other specified postprocedural states; Z98.51 Tubal ligation status
CPT/HCPCS: 36415; 71046; 78452; 80048; 80053; 81001; 83036; 83880; 84550; 85025; 85730; 87086; 87635; 93005; 93017; 93306; 96361; 96374; 99285

== ENCOUNTER 2021-07-07 19:19 | Inpatient (IN) | payer MEDICARE ==
[2021-07-07] MEDS ORDERED: MORPHINE SULFATE 4 MG/ML SYRINGE IV STA (20:29)
--- NOTE | 2021-07-07 20:32 | ED ---
Chest Pain HPI - General Chief Complaint: Chest Pain Stated Complaint: Chest Pain Time Seen by Provider: 07/07/21 19:44 Source: patient, EMS Mode of arrival: EMS Limitations: no limitations - History of Present Illness Initial Comments: 7-year-old female presents emergency Department with reported left-sided chest wall pain. She reports that she was put in a cast to her left lower extremity by Dr. Carrillo as she has multiple fractures her left foot. States that it has been unable to get around her house with the cast in place. She sustained a fall where she fell and hit the left side of her chest wall on her walker. Today the patient began developing chest pain and shortness of breath. She denies cough or hemoptysis. She denies any other injuries from the fall. Denies head trauma or neck pain. No other alleviating, precipitating or moving factors - Related Data Home Medications Medication Instructions Recorded Confirmed DULoxetine HCL [Cymbalta] 30 mg PO DAILY 03/12/20 07/07/21 metFORMIN HCL [Glucophage] 1,000 mg PO BID 03/12/20 07/07/21 Atorvastatin [Lipitor] 20 mg PO DAILY 01/10/21 07/07/21 Pantoprazole Sodium 40 mg PO DAILY 01/10/21 07/07/21 hydrOXYzine HCL [Atarax] 25 - 50 mg PO HS PRN 01/10/21 07/07/21 Aspirin EC [Ecotrin Low Dose] 81 mg PO DAILY 06/05/21 07/07/21 lisinopriL [Zestril] 5 mg PO DAILY 07/07/21 07/07/21 Previous Rx's Medication Instructions Recorded Magnesium Oxide 400 mg PO AC-BID #60 tablet 01/13/21 Furosemide [Lasix] 40 mg PO DAILY tab 06/08/21 Gabapentin [Neurontin] 100 mg PO DAILY #3 cap 06/08/21 Gabapentin [Neurontin] 200 mg PO HS #3 cap 06/08/21 HYDROcodone/APAP 10-325MG [Stem 1 tab PO Q6H PRN #6 tab 06/08/21 10-325] Insuln Asp Prt/Insulin Aspart 10 unit SQ AC-SUPPER ml 06/08/21 [NovoLOG MIX 70-30 VIAL] Insuln Asp Prt/Insulin Aspart 15 unit SQ AC-BRKFST ml 06/08/21 [NovoLOG MIX 70-30 VIAL] Nystatin 100,000Unit/gm Cream 1 applic TOPICAL BID gm 06/08/21 [Mycostatin Cream] Spironolactone [Aldactone] 25 mg PO DAILY #0 tab 06/08/21 Metoprolol Succinate (ER) [Toprol 50 mg PO DAILY #30 tablet 06/11/21 XL] Allergies Allergy/AdvReac Type Severity Reaction Status Date / Time pregabalin [From Lyrica] AdvReac Swelling Verified 07/07/21 20:51 trazodone AdvReac Unknown Verified 07/07/21 20:51 Review of Systems ROS Statement: Those systems with pertinent positive or pertinent negative responses have been documented in the HPI. ROS Other: All systems not noted in ROS Statement are negative. EKG Findings - EKG Comments: EKG Findings:: EKG demonstrates a sinus tachycardia with a ventricular rate of 121. WV interval 116. Dressing E4. QTC of 494. There is significant baseline artifact. ST depression V4 through V6. No acute ST segment elevation identified. Repeat EKG will be performed. Repeat EKG demonstrates a sinus tachycardia with a ventricular rate of 107. WV interval 138. QRS 84. QTC of 501. Inverted T waves with ST depression in V4 through V6. No acute ST segment elevations Past Medical History Past Medical History: Diabetes Mellitus, Fibromyalgia, Hyperlipidemia, Osteoarthritis (OA) Additional Past Medical History / Comment(s): myalgia, myositis, sciatica, chronic pain syndrome, vaginitis, otalgia, fatigue, malaise, UTI, microscopic hematuria, tachycardia, insomnia, lumbago, degenerative disc, colitis History of Any Multi-Drug Resistant Organisms: C-DIFF Date of last positivie culture/infection: February 15 2020 MDRO Source:: stool Past Surgical History: Cholecystectomy, Orthopedic Surgery, Tubal Ligation Additional Past Surgical History / Comment(s): left wrist Past Anesthesia/Blood Transfusion Reactions: No Reported Reaction Past Psychological History: Depression Smoking Status: Current every day smoker Past Alcohol Use History: None Reported Past Drug Use History: None Reported - Past Family History Mother Family Medical History: Cancer, COPD Additional Family Medical History / Comment(s): cervical cancer Father Additional Family Medical History / Comment(s): etoh abuse General Exam Limitations: no limitations Course Vital Signs 07/07/21 07/07/21 07/07/21 19:29 20:53 22:30 Temperature 98.6 F Pulse Rate 22 L 105 H Respiratory 18 18 Rate Blood Pressure 148/93 141/85 O2 Sat by Pulse 90 L 96 96 Oximetry Chest Pain MDM - MDM Upon arrival patient was placed into room 4. 12-lead EKG is obtained. Patient placed on continuous pulse ox and cardiac monitoring. Laboratory studies are conducted. She was given 4 mg of morphine for pain control. Chest x-ray was originally obtained which demonstrates bilateral lower lobe pneumonia and pleural fluid which is similar to old exam. Mild heart failure not entirely excluded. Patient does have an EF of 20% and therefore she is given 60 mg of Lasix. He should also cover with antibiotics. Laboratory studies are reviewed. D-dimer elevated at 1.68. Glucose 420. Troponin 0.072. Repeat EKG is obtained and demonstrates V4 through V6 ST depression. Because of these findings and elevated troponin did call and speak with Dr. Flores. Does not recommend heparinization at this time as the patient presents with chest wall pain and is now pain free after morphine administration. I will trend the patient's troponins. She is sent over for a CT of her chest due to her elevated d-dimer which fails to demonstrate a PE. Bilateral lower lobe pneumonia and atelectasis with moderate pleural effusions which are new. Patient will be admitted for cardiology consultation. Patient agreed to this treatment plan and she is currently awaiting a bed on the floor Disposition Clinical Impression: Chest pain, Congestive heart failure, Abnormal EKG, NSTEMI (non-ST elevated myocardial infarction), Fall, Left-sided chest wall pain Disposition: ADMITTED IP TO THIS HOSP Condition: Stable Is patient prescribed a controlled substance at d/c from ED?: No Decision to Admit Reason: Admit from EC Decision Date: 07/07/21 Decision Time: 23:33
[2021-07-07 21:22] LABS: ALT 15 U/L (4-34); AST 22 U/L (14-36); African American GFR (CKD) >90 (>60 ml/min/1.73 sqM); Albumin 3.5 g/dL (3.5-5.0); Alkaline Phosphatase 139 U/L (38-126); Anion Gap 8 mmol/L; Blood Urea Nitrogen 11 mg/dL (7-17); Calcium 8.7 mg/dL (8.4-10.2); Carbon Dioxide 28 mmol/L (22-30); Chloride 99 mmol/L (98-107); Glucose 420 mg/dL (74-99); Magnesium 1.7 mg/dL (1.6-2.3); Non-African American GFR(CKD) >90 (>60 ml/min/1.73 sqM); Potassium 4.3 mmol/L (3.5-5.1); Sodium 135 mmol/L (137-145); Total Bilirubin 0.5 mg/dL (0.2-1.3); Total Protein 7.3 g/dL (6.3-8.2)
[2021-07-07 21:25] LABS: Basophils # (A) 0.1 k/uL (0-0.2); Basophils % (A) 1 %; Eosinophils # (A) 0.2 k/uL (0-0.7); Eosinophils % (A) 2 %; HCT 42.7 % (34.0-46.0); Lymphocytes % (A) 22 %; MCH 28.4 pg (25.0-35.0); MCHC 31.6 g/dL (31.0-37.0); MCV 89.9 fL (80.0-100.0); Mean Platelet Volume 7.7; Monocytes # (A) 0.5 k/uL (0-1.0); Monocytes % (A) 5 %; Neutrophils # (A) 6.3 k/uL (1.3-7.7); Neutrophils % (A) 69 %; Platelet Count 394 k/uL (150-450); RBC 4.74 m/uL (3.80-5.40); RDW 15.8 % (11.5-15.5); WBC 9.1 k/uL (3.8-10.6)
[2021-07-07 21:35] LABS: INR 1.1 (<1.2); Partial Thromboplastin Time 22.6 sec (22.0-30.0); Prothrombin Time 11.2 sec (9.0-12.0)
[2021-07-07 21:52] LABS: HGB 13.5 gm/dL (11.4-16.0)
[2021-07-07] MEDS ORDERED: MAGNESIUM SULFATE-D5W PMX 1 GM in DEXTROSE/WATER 1 100ML.BAG IVPB ONE (22:04)
--- NOTE | 2021-07-07 22:10 | XR ---
EXAMINATION TYPE: XR chest 2V DATE OF EXAM: 07/07/2021 COMPARISON: 06/07/2021 HISTORY: Fall. Short of breath. TECHNIQUE: FINDINGS: There is bilateral lower lobe patchy infiltrate. There is blunting of the costophrenic angl es. There is no definite heart failure. Heart is borderline enlarged. Bony thorax is intact. IMPRESSION: Bilateral lower lobe pneumonia and pleural fluid which is similar to old exam. No obvious heart failure. Mild heart failure not entirely excluded.
--- NOTE | 2021-07-07 22:36 | CT ---
EXAMINATION TYPE: CT chest angio for PE DATE OF EXAM: 07/07/2021 COMPARISON: Chest CT scan 01/11/2021 HISTORY: PE CT DLP: 240.5 mGycm Automated exposure control for dose reduction was used. CONTRAST: Performed with IV Contrast, patient injected with 55 mL of Isovue 370. There are 3-D post processed images. There are large bilateral pleural effusions. There is mild pulmonary interstitial edema. Heart size i s fairly normal. There is no pericardial effusion. There are bilateral bronchial lymph nodes up to 1 cm. There are multiple enlarged paratracheal lymph nodes that measure up to 1.5 cm. Thoracic aorta is intact. There is no aneurysm or dissection. There is no evidence of filling defect in the pulmonary arteries. There is some patchy airspace consolidation and atelectasis at the lung bases. The bony tho rax is intact. Sternum is intact. IMPRESSION: No evidence of pulmonary embolism. There is bilateral lower lobe pneumonia and atelectasis and moderate pleural effusions which are new compared to old CT scan. Chronic congestive heart failure is possible. There is new mediastinal adenopathy compared to old exam. These are nonspecific. Lymphoma is possible . This could also be inflammatory.
[2021-07-07] MEDS ORDERED: FUROSEMIDE 10 MG/ML 10 ML VIAL IV STA (22:39)
[2021-07-07] MEDS ORDERED: LEVOFLOXACIN 750MG-D5W PMX 750 MG in DEXTROSE/WATER 1 150ML.BAG IVPB STA (22:40)
[2021-07-07] MEDS ORDERED: NALOXONE 0.4 MG/ML 1 ML VIAL IV PRN (23:34)
[2021-07-07] MEDS ORDERED: IPRATROPIUM-ALBUTEROL 3 ML NEB INHALATION PRN (23:36)
[2021-07-08] MEDS: MORPHINE SULFATE 4 MG/ML SYRINGE IV PRN ×4 (00:35→20:22)
[2021-07-08 01:57] LABS: Glucose,Whole Blood 362 mg/dL (75-99)
[2021-07-08] MEDS: INSULIN ASPART (NovoLOG) 100 UNIT/ML VIAL SQ SCH ×5 (02:08→20:19)
[2021-07-08] MEDS: PANTOPRAZOLE 40 MG TABLET PO SCH (06:49)
[2021-07-08] MEDS: MAGNESIUM OXIDE 400 MG TAB PO SCH ×2 (06:49→16:40)
[2021-07-08 08:08] LABS: Glucose,Whole Blood 306 mg/dL (75-99)
[2021-07-08] MEDS: lisinopriL 5 MG TAB PO SCH (08:59)
[2021-07-08] MEDS: GABAPENTIN 100 MG CAP PO SCH ×2 (08:59→20:24)
[2021-07-08] MEDS: ATORVASTATIN 20 MG TAB PO SCH (09:00)
[2021-07-08] MEDS: SPIRONOLACTONE 25 MG TAB PO SCH (09:00)
[2021-07-08] MEDS: DULoxetine HCL 30 MG CAPSULE.DR PO SCH (09:00)
[2021-07-08] MEDS: METOPROLOL SUCCINATE (ER) 50 MG TAB.ER.24H PO SCH (09:00)
[2021-07-08] MEDS: INSULN ASP PRT/INSULIN ASPART 100 UNIT/ML 10 ML VIAL SQ SCH ×2 (09:00→17:29)
[2021-07-08] MEDS: ASPIRIN 81 MG PO SCH (09:00)
[2021-07-08 09:07] LABS: Basophils % (A) 1 %; Eosinophils # (A) 0.3 k/uL (0-0.7); Eosinophils % (A) 5 %; HCT 36.3 % (34.0-46.0); HGB 11.7 gm/dL (11.4-16.0); Lymphocytes # (A) 1.7 k/uL (1.0-4.8); Lymphocytes % (A) 24 %; MCHC 32.2 g/dL (31.0-37.0); MCV 90.1 fL (80.0-100.0); Monocytes # (A) 0.4 k/uL (0-1.0); Monocytes % (A) 6 %; Neutrophils # (A) 4.4 k/uL (1.3-7.7); Neutrophils % (A) 63 %; Platelet Count 321 k/uL (150-450); RBC 4.03 m/uL (3.80-5.40); WBC 6.9 k/uL (3.8-10.6)
[2021-07-08 09:13] LABS: Chloride 97 mmol/L (98-107)
[2021-07-08 09:15] LABS: African American GFR (CKD) >90 (>60 ml/min/1.73 sqM); Anion Gap 5 mmol/L; Blood Urea Nitrogen 12 mg/dL (7-17); Calcium 8.1 mg/dL (8.4-10.2); Carbon Dioxide 32 mmol/L (22-30); Glucose 312 mg/dL (74-99); Magnesium 1.6 mg/dL (1.6-2.3); Non-African American GFR(CKD) >90 (>60 ml/min/1.73 sqM); Potassium 3.5 mmol/L (3.5-5.1); Sodium 134 mmol/L (137-145)
[2021-07-08] MEDS ORDERED: HEPARIN SODIUM 1,000 UN/ML (10ML VL) IV ONE (10:53)
[2021-07-08] MEDS ORDERED: HEPARIN SODIUM 1,000 UN/ML (10ML VL) IV PRN (10:53)
[2021-07-08] MEDS ORDERED: ISOSORBIDE MONONITRATE ER 30 MG TAB.ER.24H PO SCH (11:00)
[2021-07-08 11:38] LABS: Glucose,Whole Blood 101 mg/dL (75-99)
[2021-07-08] MEDS: HEPARIN SOD,PORK IN 0.45% NACL 25,000 UNIT in 0.45% NACL 1 250ML.BAG IV SCH (11:39)
--- NOTE | 2021-07-08 11:53 | P.HPIM ---
History of Present Illness Patient is a 61-year-old female came in the appearance of left-sided chest pain and also shortness of breath and patient the had a cast from her recent for for calcaneal fracture. Patient has EF of around 25-30% only on Aldactone at home it appears to be in a bit of heart failure with bilateral pleural effusion CT of the chest showed some infiltrate but no work program. Patient denied any cough. Patient had any fever chills. Patient is found to have mildly elevated troponin. Please refer to hogshead roller documentation for EKG reading. Patient was evaluated by cardiology and they're recommending daily catheterization toda y. REVIEW OF SYSTEMS: CONSTITUTIONAL: No fever, no malaise, no fatigue. HEENT: No recent visual problems or hearing problems. Denied any sore throat. CARDIOVASCULAR: No orthopnea, PND, no palpitations, no syncope. PULMONARY:no hemoptysis. GASTROINTESTINAL: No diarrhea, no nausea, no vomiting, no abdominal pain. NEUROLOGICAL: No headaches, no weakness, no numbness. HEMATOLOGICAL: Denies any bleeding or petechiae. GENITOURINARY: Denies any burning micturition, frequency, or urgency. MUSCULOSKELETAL/RHEUMATOLOGICAL: Denies any joint pain, swelling, or any muscle pain. ENDOCRINE: Denies any polyuria or polydipsia. The rest of the 14-point review of systems is negative. PHYSICAL EXAMINATION: GENERAL: The patient is alert and oriented x3, not in any acute distress. Well developed, well nourished. HEENT: Pupils are round and equally reacting to light. EOMI. No scleral icterus. No conjunctival pallor. Normocephalic, atraumatic. No pharyngeal erythema. No thyromegaly. CARDIOVASCULAR: S1 and S2 present. No murmurs, rubs, or gallops. PULMONARY: Chest is clear to auscultation, no wheezing or crackles. ABDOMEN: Soft, nontender, nondistended, normoactive bowel sounds. No palpable organomegaly. MUSCULOSKELETAL: No joint swelling or deformity. EXTREMITIES: No cyanosis, clubbing, patient does have pedal edema patient has a cast in the left leg. NEUROLOGICAL: Gross neurological examination did not reveal any focal deficits. SKIN: No rashes. Assessment and plan Chest pain possibility of non-ST elevation microinfarction patient undergo cardiac ablation continue with IV heparin -Acute hypoxic respiratory failure most probably secondary to congestive heart failure chronic systolic dysfunction with acute exacerbation patient was started on low-dose of Lasix patient blood pressure is borderline low. Patient is on lisinopril which will be continued as well along with Aldactone. Possibly of pneumonia is low we will obtain pro-calcitonin -Nicotine use: Counseling was provided -Type 2 diabetes mellitus -Hyperlipidemia 1 possible hypervolemic hyponatremia DVT prophylaxis: Wasn't given IV heparin Past Medical History Past Medical History: Diabetes Mellitus, Fibromyalgia, Hyperlipidemia, Osteoarthritis (OA) Additional Past Medical History / Comment(s): myalgia, myositis, sciatica, chronic pain syndrome, vaginitis, otalgia, fatigue, malaise, UTI, microscopic hematuria, tachycardia, insomnia, lumbago, degenerative disc, colitis History of Any Multi-Drug Resistant Organisms: C-DIFF Date of last positivie culture/infection: February 15 2020 MDRO Source:: stool Past Surgical History: Cholecystectomy, Orthopedic Surgery, Tubal Ligation Additional Past Surgical History / Comment(s): left wrist Past Anesthesia/Blood Transfusion Reactions: No Reported Reaction Past Psychological History: Depression Smoking Status: Current every day smoker Past Alcohol Use History: None Reported Past Drug Use History: None Reported - Past Family History Mother Family Medical History: Cancer, COPD Additional Family Medical History / Comment(s): cervical cancer Father Additional Family Medical History / Comment(s): etoh abuse Medications and Allergies Home Medications Medication Instructions Recorded Confirmed Type DULoxetine HCL [Cymbalta] 30 mg PO DAILY 03/12/20 07/07/21 History metFORMIN HCL [Glucophage] 1,000 mg PO BID 03/12/20 07/07/21 History Atorvastatin [Lipitor] 20 mg PO DAILY 01/10/21 07/07/21 History Pantoprazole Sodium 40 mg PO DAILY 01/10/21 07/07/21 History hydrOXYzine HCL [Atarax] 25 - 50 mg PO HS PRN 01/10/21 07/07/21 History Magnesium Oxide 400 mg PO AC-BID #60 tablet 01/13/21 07/07/21 Rx Aspirin EC [Ecotrin Low Dose] 81 mg PO DAILY 06/05/21 07/07/21 History Furosemide [Lasix] 40 mg PO DAILY tab 06/08/21 07/07/21 Rx Gabapentin [Neurontin] 100 mg PO DAILY #3 cap 06/08/21 07/07/21 Rx Gabapentin [Neurontin] 200 mg PO HS #3 cap 06/08/21 07/07/21 Rx HYDROcodone/APAP 10-325MG [[place] 1 tab PO Q6H PRN #6 tab 06/08/21 07/07/21 Rx 10-325] Insuln Asp Prt/Insulin Aspart 10 unit SQ AC-SUPPER ml 06/08/21 07/07/21 Rx [NovoLOG MIX 70-30 VIAL] Insuln Asp Prt/Insulin Aspart 15 unit SQ AC-BRKFST ml 06/08/21 07/07/21 Rx [NovoLOG MIX 70-30 VIAL] Nystatin 100,000Unit/gm Cream 1 applic TOPICAL BID gm 06/08/21 07/07/21 Rx [Mycostatin Cream] Spironolactone [Aldactone] 25 mg PO DAILY #0 tab 06/08/21 07/07/21 Rx Metoprolol Succinate (ER) [Toprol 50 mg PO DAILY #30 tablet 06/11/21 07/07/21 Rx XL] lisinopriL [Zestril] 5 mg PO DAILY 07/07/21 07/07/21 History Allergies Allergy/AdvReac Type Severity Reaction Status Date / Time pregabalin [From Lyrica] AdvReac Swelling Verified 07/07/21 20:51 trazodone AdvReac Unknown Verified 07/07/21 20:51 Physical Exam Vitals: Vital Signs Temp Pulse Pulse Resp BP BP Pulse Ox 07/08/21 11:36 101 H 18 93/64 97 07/08/21 08:10 104 H 16 115/89 95 07/08/21 07:00 18 95 07/08/21 04:00 98.0 F 99 18 132/74 95 07/08/21 00:00 97.9 F 76 18 128/88 97 07/07/21 23:05 105 H 18 146/97 96 07/07/21 22:30 105 H 18 141/85 96 07/07/21 20:53 96 07/07/21 19:29 98.6 F 22 L 18 148/93 90 L Intake and Output 07/07/21 07/08/21 07/08/21 22:59 06:59 14:59 Output Total 1900 Balance -1900 Output: Urine 1900 Other: Voiding Method Bedside Commode Bedside Commode Weight 47.627 kg 47.627 kg Results CBC & Chem 7: 07/08/21 08:37 07/08/21 08:37 Labs: Abnormal Lab Results - Last 24 Hours (Table) 07/07/21 07/07/21 07/07/21 Range/Units 20:50 20:50 20:50 RDW 15.8 H (11.5-15.5) % D-Dimer 1.68 H (<0.60) mg/L FEU Sodium 135 L (137-145) mmol/L Chloride (98-107) mmol/L Carbon Dioxide (22-30) mmol/L Creatinine 0.35 L (0.52-1.04) mg/dL Glucose 420 H (74-99) mg/dL POC Glucose (mg/dL) (75-99) mg/dL Calcium (8.4-10.2) mg/dL Alkaline Phosphatase 139 H (38-126) U/L Troponin I (0.000-0.034) ng/mL 07/07/21 07/08/21 07/08/21 Range/Units 20:50 00:09 01:56 RDW (11.5-15.5) % D-Dimer (<0.60) mg/L FEU Sodium (137-145) mmol/L Chloride (98-107) mmol/L Carbon Dioxide (22-30) mmol/L Creatinine (0.52-1.04) mg/dL Glucose (74-99) mg/dL POC Glucose (mg/dL) 362 H (75-99) mg/dL Calcium (8.4-10.2) mg/dL Alkaline Phosphatase (38-126) U/L Troponin I 0.072 H* 0.078 H* (0.000-0.034) ng/mL 07/08/21 07/08/21 07/08/21 Range/Units 02:02 08:07 08:37 RDW 16.0 H (11.5-15.5) % D-Dimer (<0.60) mg/L FEU Sodium (137-145) mmol/L Chloride (98-107) mmol/L Carbon Dioxide (22-30) mmol/L Creatinine (0.52-1.04) mg/dL Glucose (74-99) mg/dL POC Glucose (mg/dL) 306 H (75-99) mg/dL Calcium (8.4-10.2) mg/dL Alkaline Phosphatase (38-126) U/L Troponin I 0.090 H* (0.000-0.034) ng/mL 07/08/21 07/08/21 Range/Units 08:37 11:36 RDW (11.5-15.5) % D-Dimer (<0.60) mg/L FEU Sodium 134 L (137-145) mmol/L Chloride 97 L (98-107) mmol/L Carbon Dioxide 32 H (22-30) mmol/L Creatinine 0.36 L (0.52-1.04) mg/dL Glucose 312 H (74-99) mg/dL POC Glucose (mg/dL) 101 H (75-99) mg/dL Calcium 8.1 L (8.4-10.2) mg/dL Alkaline Phosphatase (38-126) U/L Troponin I (0.000-0.034) ng/mL Thrombosis Risk Factor Assmnt - Choose All That Apply Any of the Below Risk Factors Present?: Yes Each Factor Represents 1 point: Age 41-60 years, Heart failure (<1month) Other Risk Factors: No Other congenital or acquired thrombophilia - If yes, enter type in comment: No Thrombosis Risk Factor Assessment Total Risk Factor Score: 2 Thrombosis Risk Factor Assessment Level: Low Risk
[2021-07-08 12:30] LABS: Partial Thromboplastin Time 22.3 sec (22.0-30.0)
--- NOTE | 2021-07-08 12:47 | CONS ---
CONSULTATION Roula is a 61-year-old lady who is admitted to hospital with chest pain and shortness of breath. She has history of coronary artery disease, maf-mngstua-luhbchuzj diabetes, diabetic neuropathy and dyslipidemia. She comes in primarily initially because she had discomfort in her back following a fall around Thanksgiving and subsequently because she became short of breath. She has mild to moderate intensity difficulty in breathing on her initial presentation and they thought she may have pneumonia; they are treating her as pneumonia. Her troponins have come back mildly elevated, for which I have been consulted. Troponins are elevated at 0.07 and 0.09. Her coronavirus test is negative. EKG shows significant changes of subendocardial ischemia, especially in the lateral leads. Patient had a stress test done at her last admission which showed evidence of myocardial infarction in circumflex distribution. It is unclear as to what the plan was at that time. At the time of my evaluation this morning she is [id number], hemodynamically stable, and her difficulty in breathing has improved. She is currently on optimal medical therapy with aspirin, beta blockers, BECKY inhibitors and statins. I am going to add nitrates to what she is on. Given her recurrent episodes of shortness of breath, subendocardial ischemic changes and her recent abnormal nuclear scan, I believe patient will benefit from cardiac catheterization. PAST MEDICAL HISTORY: Significant for fup-nwublkn-eihrmijhy diabetes, dyslipidemia, peripheral neuropathy. MEDICATIONS: Medications at home include Glucophage, Zestril, Aldactone, Toprol, insulin, Neurontin, Lasix, Cymbalta, aspirin and Lipitor. ALLERGIES: LYRICA AND TRAZODONE. FAMILY HISTORY: Negative for premature coronary artery disease. SOCIAL HISTORY: Negative for current smoking, EtOH abuse or drug abuse. REVIEW OF SYSTEMS: HEENT is unremarkable. CARDIAC: As described above. RESPIRATORY: As described above. GI: Negative. GENITOURINARY: Negative. ALLERGY/IMMUNOLOGY: Negative. SKIN: Negative. MUSCULOSKELETAL: Significant for arthritis. PSYCHOSOCIAL: Negative. ENDOCRINE: Negative. DERMATOLOGY: Negative. CONSTITUTIONAL: Negative. ONCOLOGICAL: Negative. WATER SUPPLY TECHNICIAN: Negative. PHYSICAL EXAMINATION: Patient is mildly short of breath at rest. Heart rate is 90 beats per minute. Blood pressure is /89, respirations 18, O2 saturation 95% on 4 L. There is no jugular venous distention. Carotid upstroke is normal. There is no bruit. Chest exam reveals good air entry bilaterally. Heart exam reveals first and second heart sounds, systolic murmur at the apex. Abdomen is soft. Examination of extremities did not reveal any edema. Peripheral pulses are felt. LABS: Potassium 3.5, creatinine is 0.3. Troponins are mildly elevated. Hemoglobin is 11.7, platelet count is 320. ASSESSMENT: Fvt-IQ-nthjuuc-elevation myocardial infarction. PLAN: I will obtain a 2D echo on her to evaluate her LV function, start her on IV heparin and nitrates. Continue beta blockers, BECKY inhibitors, statins and aspirin. Patient needs cardiac catheterization to evaluate her coronary anatomy. However, on her CT scan there is a question of pneumonia, and she is currently being treated for the same, but she has had similar abnormality on a previous CT scan. So once the pneumonia issues are addressed, she will undergo cardiac catheterization. MMODL / IJN: [id number] /
--- NOTE | 2021-07-08 14:00 | ECHOF ---
Referral Reason:chest pain MEASUREMENTS -------- HEIGHT: 157.5 cm WEIGHT: 48.1 kg BP: IVSd: 1.1 cm (0.6 - 1.1) LVIDd: 4.3 cm (3.9 - 5.3) LVPWd: 1.4 cm (0.6 - 1.1) IVSs: 1.3 cm LVIDs: 3.7 cm LVPWs: 1.4 cm LAESV Index (A-L): 34.50 ml/m Ao Diam: 1.8 cm (2.0 - 3.7) AV Cusp: 1.4 cm (1.5 - 2.6) MV EXCURSION: 17.405 mm (> 18.000) MV EF SLOPE: 80 mm/s (70 - 150) EPSS: 1.0 cm MV E José Antonio: 1.06 m/s MV DecT: 149 ms MV A José Antonio: 0.85 m/s MV E/A Ratio: 1.24 RAP: 5.00 mmHg RVSP: 38.63 mmHg FINDINGS -------- Sinus rhythm. This was a technically adequate study. The left ventricular size is normal. There is mild concentric left ventricular hypertrophy. Overa ll left ventricular systolic function is moderate-severely impaired with, an EF between 30 - 35 %. Basal lateral LV wall motion is normal. Basal inferior LV wall motion is hypokinetic. Basal infe roseptal LV wall motion is hypokinetic. Mid lateral LV wall motion is hypokinetic. Mid inferior LV wall motion is hypokinetic. The right ventricle is normal in size. LA is moderately dilated 34-39 ml/m2 The right atrial size is normal. Interatrial and interventricular septum intact. The aortic valve is trileaflet and appears structurally normal. There is no evidence of aortic regu rgitation. There is no evidence of aortic stenosis. Mild mitral annular calcification present. Mild mitral regurgitation is present. Mild tricuspid regurgitation present. There is mild pulmonary hypertension. The right ventricular systolic pressure, as measured by Doppler, is 38.63mmHg. There is no pulmonic regurgitation present. The aortic root size is normal. IVC Not well visulized. There is a small, generalized pericardial effusion present. Large Pleural Effusion. CONCLUSIONS -------- 1. The left ventricular size is normal. 2. There is mild concentric left ventricular hypertrophy. 3. Overall left ventricular systolic function is moderate-severely impaired with, an EF between 30 - 35 %. 4. Basal lateral LV wall motion is normal. 5. Basal inferior LV wall motion is hypokinetic. 6. Basal inferoseptal LV wall motion is hypokinetic. 7. Mid lateral LV wall motion is hypokinetic. 8. Mid inferior LV wall motion is hypokinetic. 9. LA is moderately dilated 34-39 ml/m2 10. Mild mitral annular calcification present. 11. Mild mitral regurgitation is present. 12. Mild tricuspid regurgitation present. 13. There is mild pulmonary hypertension. 14. The right ventricular systolic pressure, as measured by Doppler, is 38.63mmHg. 15. There is a small, generalized pericardial effusion present. 16. Large Pleural Effusion. ELECTRIC MOTOR TESTER: Jessica Nicolas RDCS
[2021-07-08] MEDS ORDERED: ACETAMINOPHEN TAB 325 MG TAB PO PRN (14:31)
[2021-07-08] MEDS: FUROSEMIDE 10 MG/ML 2 ML VIAL IV SCH ×2 (14:44→21:08)
[2021-07-08 16:23] LABS: Glucose,Whole Blood 143 mg/dL (75-99)
[2021-07-08] MEDS: traMADol 50 MG TAB PO PRN (16:40)
[2021-07-08 20:15] LABS: Glucose,Whole Blood 82 mg/dL (75-99)
[2021-07-08 22:44] LABS: Glucose,Whole Blood 52 mg/dL (75-99)
[2021-07-08 22:44] LABS: Glucose,Whole Blood 72 mg/dL (75-99)
[2021-07-08 23:07] LABS: Glucose,Whole Blood 64 mg/dL (75-99)
[2021-07-08 23:23] LABS: Glucose,Whole Blood 75 mg/dL (75-99)
[2021-07-08 23:38] LABS: Glucose,Whole Blood 81 mg/dL (75-99)
[2021-07-09] MEDS: MORPHINE SULFATE 4 MG/ML SYRINGE IV PRN ×6 (01:38→23:24)
[2021-07-09 06:13] LABS: Glucose,Whole Blood 167 mg/dL (75-99)
[2021-07-09] MEDS: INSULN ASP PRT/INSULIN ASPART 100 UNIT/ML 10 ML VIAL SQ SCH ×2 (07:00→19:33)
[2021-07-09] MEDS: INSULIN ASPART (NovoLOG) 100 UNIT/ML VIAL SQ SCH ×4 (07:00→20:47)
[2021-07-09] MEDS: MAGNESIUM OXIDE 400 MG TAB PO SCH ×2 (07:09→17:10)
[2021-07-09] MEDS: PANTOPRAZOLE 40 MG TABLET PO SCH (07:09)
[2021-07-09 08:11] LABS: Basophils % (A) 1 %; Eosinophils # (A) 0.4 k/uL (0-0.7); Eosinophils % (A) 7 %; HCT 34.9 % (34.0-46.0); HGB 11.3 gm/dL (11.4-16.0); Lymphocytes # (A) 2.2 k/uL (1.0-4.8); Lymphocytes % (A) 33 %; MCH 28.4 pg (25.0-35.0); MCHC 32.3 g/dL (31.0-37.0); MCV 87.9 fL (80.0-100.0); Mean Platelet Volume 7.4; Monocytes # (A) 0.4 k/uL (0-1.0); Monocytes % (A) 5 %; Neutrophils # (A) 3.5 k/uL (1.3-7.7); Neutrophils % (A) 53 %; Platelet Count 286 k/uL (150-450); RBC 3.97 m/uL (3.80-5.40); RDW 15.5 % (11.5-15.5); WBC 6.6 k/uL (3.8-10.6)
[2021-07-09 08:25] LABS: Partial Thromboplastin Time 44.9 sec (22.0-30.0); Prothrombin Time 10.7 sec (9.0-12.0)
[2021-07-09] MEDS: METOPROLOL SUCCINATE (ER) 50 MG TAB.ER.24H PO SCH (08:31)
[2021-07-09] MEDS: SPIRONOLACTONE 25 MG TAB PO SCH (08:31)
[2021-07-09] MEDS: ASPIRIN 81 MG PO SCH (08:31)
[2021-07-09] MEDS: ATORVASTATIN 20 MG TAB PO SCH (08:32)
[2021-07-09] MEDS: FUROSEMIDE 10 MG/ML 2 ML VIAL IV SCH ×2 (08:32→20:46)
[2021-07-09] MEDS: DULoxetine HCL 30 MG CAPSULE.DR PO SCH (08:32)
[2021-07-09] MEDS: traMADol 50 MG TAB PO PRN (08:32)
[2021-07-09] MEDS: lisinopriL 5 MG TAB PO SCH (08:32)
[2021-07-09] MEDS: GABAPENTIN 100 MG CAP PO SCH ×2 (08:32→20:46)
[2021-07-09 08:36] LABS: African American GFR (CKD) >90 (>60 ml/min/1.73 sqM); Anion Gap 5 mmol/L; Blood Urea Nitrogen 17 mg/dL (7-17); Calcium 8.1 mg/dL (8.4-10.2); Carbon Dioxide 32 mmol/L (22-30); Chloride 97 mmol/L (98-107); Glucose 170 mg/dL (74-99); Magnesium 1.7 mg/dL (1.6-2.3); Non-African American GFR(CKD) >90 (>60 ml/min/1.73 sqM); Potassium 3.7 mmol/L (3.5-5.1); Sodium 134 mmol/L (137-145)
[2021-07-09] MEDS ORDERED: ALPRAZolam 0.5 MG TAB PO PRN (09:23)
[2021-07-09] MEDS ORDERED: ATORVASTATIN 80 MG TAB PO STA (09:23)
[2021-07-09] MEDS ORDERED: ASPIRIN 325 MG TAB PO STA (09:23)
[2021-07-09] MEDS ORDERED: NITROGLYCERIN SL TABS 0.4 MG TAB SUBLINGUAL PRN (09:23)
[2021-07-09] MEDS ORDERED: ALPRAZolam 0.25 MG TAB PO PRN (09:23)
[2021-07-09] MEDS ORDERED: ASPIRIN 81 MG PO STA (09:41)
[2021-07-09] MEDS: SODIUM CHLORIDE 0.9% 1,000 ML in EMPTY BAG 1 BAG IV SCH (10:14)
--- NOTE | 2021-07-09 10:34 | P.CRDCN ---
History of Present Illness Consult date: 07/09/21 History of present illness: HISTORY OF PRESENT ILLNESS: This is a 61-year-old female who follows in the office with Dr. Lundy. Patient examined this morning at the bedside. Patient presented to the hospital with chest pain and shortness of breath after sustaining a fall at home. Patient reports she has some broken bones in her left foot and states she is going to need surgery in the future but is unsure when this is going to happen. Patient denies shortness of breath. The patient does report some chest tightness this morning. She remains on IV heparin. Blood pressure 119/74. Telemetry reveals sinus mechanism with a heart rate in the 80s. She is on 2 L nasal cannula with oxygen saturations greater than 92%. She is afebrile. E chocardiogram completed revealed ejection fraction 30-35%, LV hypokinesis, mild mitral regurgitation, mild tricuspid regurgitation, mild pulmonary hypertension, small generalized pericardial effusion, and large pleural effusion. PHYSICAL EXAM: VITAL SIGNS: Reviewed. GENERAL: Well-developed in no acute distress. NECK: Supple. No JVD or thyromegaly LUNGS: Respirations even and unlabored. Lungs diminished to auscultation bilaterally. HEART: Regular rate and rhythm. S1 and S2 heard. EXTREMITIES: Normal range of motion. No clubbing or cyanosis. Peripheral pulses intact. No lower extremity edema ASSESSMENT: S/P fall Bilateral pneumonia, per CXR Non-STEMI Shortness of breath Abnormal stress test in June 2021, revealing previous [place], with no acute reversible ischemia Cardiomyopathy with EF 30-35%, suspect ischemic in nature Broken bones in left foot, per patient Small generalized pericardial effusion Large pleural effusion PLAN: Continue current cardiac medications Continue IV heparin Continue IV lasix Patient to undergo cardiac cath today with Dr. Vanegas. Patient agreeable. Further recommendations pending patient course Nurse practitioner note has been reviewed by physician. Signing provider agrees with the documented findings, assessment, and plan of care. Past Medical History Past Medical History: Diabetes Mellitus, Fibromyalgia, Hyperlipidemia, Osteoarthritis (OA) Additional Past Medical History / Comment(s): myalgia, myositis, sciatica, chronic pain syndrome, vaginitis, otalgia, fatigue, malaise, UTI, microscopic hematuria, tachycardia, insomnia, lumbago, degenerative disc, colitis History of Any Multi-Drug Resistant Organisms: C-DIFF Date of last positivie culture/infection: February 15 2020 MDRO Source:: stool Past Surgical History: Cholecystectomy, Orthopedic Surgery, Tubal Ligation Additional Past Surgical History / Comment(s): left wrist Past Anesthesia/Blood Transfusion Reactions: No Reported Reaction Past Psychological History: Depression Smoking Status: Current every day smoker Past Alcohol Use History: None Reported Past Drug Use History: None Reported - Past Family History Mother Family Medical History: Cancer, COPD Additional Family Medical History / Comment(s): cervical cancer Father Additional Family Medical History / Comment(s): etoh abuse Medications and Allergies Home Medications Medication Instructions Recorded Confirmed Type DULoxetine HCL [Cymbalta] 30 mg PO DAILY 03/12/20 07/07/21 History metFORMIN HCL [Glucophage] 1,000 mg PO BID 03/12/20 07/07/21 History Atorvastatin [Lipitor] 20 mg PO DAILY 01/10/21 07/07/21 History Pantoprazole Sodium 40 mg PO DAILY 01/10/21 07/07/21 History hydrOXYzine HCL [Atarax] 25 - 50 mg PO HS PRN 01/10/21 07/07/21 History Magnesium Oxide 400 mg PO AC-BID #60 tablet 01/13/21 07/07/21 Rx Aspirin EC [Ecotrin Low Dose] 81 mg PO DAILY 06/05/21 07/07/21 History Furosemide [Lasix] 40 mg PO DAILY tab 06/08/21 07/07/21 Rx Gabapentin [Neurontin] 100 mg PO DAILY #3 cap 06/08/21 07/07/21 Rx Gabapentin [Neurontin] 200 mg PO HS #3 cap 06/08/21 07/07/21 Rx HYDROcodone/APAP 10-325MG [[place]an 1 tab PO Q6H PRN #6 tab 06/08/21 07/07/21 Rx 10-325] Insuln Asp Prt/Insulin Aspart 10 unit SQ AC-SUPPER ml 06/08/21 07/07/21 Rx [NovoLOG MIX 70-30 VIAL] Insuln Asp Prt/Insulin Aspart 15 unit SQ AC-BRKFST ml 06/08/21 07/07/21 Rx [NovoLOG MIX 70-30 VIAL] Nystatin 100,000Unit/gm Cream 1 applic TOPICAL BID gm 06/08/21 07/07/21 Rx [Mycostatin Cream] Spironolactone [Aldactone] 25 mg PO DAILY #0 tab 06/08/21 07/07/21 Rx Metoprolol Succinate (ER) [Toprol 50 mg PO DAILY #30 tablet 06/11/21 07/07/21 Rx XL] lisinopriL [Zestril] 5 mg PO DAILY 07/07/21 07/07/21 History Allergies Allergy/AdvReac Type Severity Reaction Status Date / Time pregabalin [From Lyrica] AdvReac Swelling Verified 07/07/21 20:51 trazodone AdvReac Unknown Verified 07/07/21 20:51 Physical Exam Vitals: Vital Signs Temp Pulse Resp BP Pulse Ox 07/09/21 08:00 98.4 F 83 16 119/74 94 L 07/09/21 04:00 97.5 F L 88 18 114/74 95 07/09/21 02:00 88 20 07/09/21 00:00 88 20 110/58 96 07/08/21 20:00 97.8 F 85 18 99/61 97 07/08/21 16:04 100/62 07/08/21 15:21 97.6 F 72 18 92/53 99 07/08/21 14:36 95/59 07/08/21 14:02 80/54 07/08/21 14:00 101 H 18 07/08/21 13:52 73/49 07/08/21 11:36 101 H 18 93/64 97 Intake and Output 07/08/21 07/09/21 07/09/21 22:59 06:59 14:59 Intake Total 27.527 55.247 Output Total 250 Balance 27.527 -194.753 Intake: Intake, IV Titration 27.527 55.247 Amount Heparin Sod,Pork in 0.45% 27.527 55.247 NaCl 25,000 unit In 0.45 % NaCl 1 250ml.bag @ 12 UNITS/KG/HR 5.715 mls/hr IV .Q24H [facility] Rx#: [id number] Output: Urine 250 Other: Voiding Method Bedside Commode Bedside Commode # Voids 0 Weight 47.8 kg Results 07/09/21 07:20 07/09/21 07:20 Coagulation 07/08/21 07/08/21 07/08/21 Range/Units 11:18 15:52 22:31 PT 11.0 (9.0-12.0) sec APTT 22.3 31.3 H 33.3 H (22.0-30.0) sec 07/09/21 Range/Units 07:20 PT 10.7 (9.0-12.0) sec APTT 44.9 H (22.0-30.0) sec CBC 07/09/21 Range/Units 07:20 WBC 6.6 (3.8-10.6) k/uL RBC 3.97 (3.80-5.40) m/uL Hgb 11.3 L (11.4-16.0) gm/dL Hct 34.9 (34.0-46.0) % Plt Count 286 (150-450) k/uL Comprehensive Metabolic Panel 07/09/21 Range/Units 07:20 Sodium 134 L (137-145) mmol/L Potassium 3.7 (3.5-5.1) mmol/L Chloride 97 L (98-107) mmol/L Carbon Dioxide 32 H (22-30) mmol/L BUN 17 (7-17) mg/dL Creatinine 0.46 L (0.52-1.04) mg/dL Glucose 170 H (74-99) mg/dL Calcium 8.1 L (8.4-10.2) mg/dL Current Medications Generic Name Dose Route Start Last Admin Trade Name Freq PRN Reason Stop Dose Admin Acetaminophen 650 mg 07/08/21 14:31 Acetaminophen Tab 325 Mg Tab PO Q6HR PRN Fever and/ or MILD Pain Albuterol/Ipratropium 3 ml 07/07/21 23:36 Ipratropium-Albuterol 3 Ml Neb INHALATION RT-QID PRN Shortness Of Breath Or Wheezing Alprazolam 0.25 mg 07/09/21 09:23 Alprazolam 0.25 Mg Tab PO Q6HR PRN Mild Anxiety Alprazolam 0.5 mg 07/09/21 09:23 Alprazolam 0.5 Mg Tab PO Q6HR PRN Moderate Anxiety Aspirin 81 mg 07/08/21 09:00 07/09/21 08:31 Aspirin 81 Mg PO 81 mg DAILY [facility]ENC[facility] Administration Atorvastatin Calcium 20 mg 07/08/21 09:00 07/09/21 08:32 Atorvastatin 20 Mg Tab PO 20 mg DAILY [facility]ENCIA Administration Duloxetine HCl 30 mg 07/08/21 09:00 07/09/21 08:32 Duloxetine Hcl 30 Mg Capsule.Dr PO 30 mg DAILY [facility]ENCIA Administration Furosemide 20 mg 07/08/21 12:15 07/09/21 08:32 Furosemide 10 Mg/Ml 2 Ml Vial IV 20 mg Q12HR [facility]ENCIA Administration Gabapentin 100 mg 07/08/21 09:00 07/09/21 08:32 Gabapentin 100 Mg Cap PO 100 mg DAILY [facility]ENCIA Administration Gabapentin 200 mg 07/08/21 21:00 07/08/21 20:24 Gabapentin 100 Mg Cap PO 200 mg HS HORTENCIA Administration Heparin Sodium (Porcine) 0 unit 07/08/21 10:53 07/09/21 01:38 Heparin Sodium 1,000 Un/Ml (10ml Vl) IV 2,350 unit PER PROTOCOL PRN Administration Low PTT Protocol Heparin Sodium/Sodium Chloride 250 mls @ 5.715 mls/hr 07/08/21 11:15 07/09/21 00:12 25,000 unit/ Sodium Chloride IV 18 units/kg/hr .Q24H [facility] 8.573 mls/hr Titration Protocol 12 UNITS/KG/HR Sodium Chloride 1,000 ml/ IV 1,000 mls @ 47.8 mls/hr 07/09/21 09:30 07/09/21 10:14 Solution IV 47.8 mls/hr .[id number] [facility]ENCIA Administration 1 ML/KG/HR Heparin Sodium (Porcine) 10, 1,001 mls @ 999 mls/hr 07/10/21 07:00 000 unit/ Sodium Chloride IRRIGATION 07/10/21 23:00 ONCE PRN INTRA-OP Heparin Sodium (Porcine) 2,500 250.5 mls @ 250 mls/hr 07/10/21 07:00 unit/ Sodium Chloride IRRIGATION 07/10/21 23:00 ONCE PRN INTRA-OP Insulin Aspart 10 unit 07/08/21 17:30 07/08/21 17:29 Insuln Asp Prt/Insulin Aspart 100 Unit/Ml 10 Ml Vial SQ 10 unit AC-SUPPER HORTENCIA Administration Insulin Aspart 15 unit 07/08/21 07:30 07/09/21 07:00 Insuln Asp Prt/Insulin Aspart 100 Unit/Ml 10 Ml Vial SQ Not Given AC-BRKFST [facility]ENC[facility] Insulin Aspart 0 unit 07/08/21 02:03 07/09/21 07:00 Insulin Aspart (Novolog) 100 Unit/Ml Vial SQ Not Given ACHS [facility] Protocol Lisinopril 5 mg 07/08/21 09:00 07/09/21 08:32 Lisinopril 5 Mg Tab PO 5 mg DAILY HORTENCIA Administration Magnesium Oxide 400 mg 07/08/21 07:30 07/09/21 07:09 Magnesium Oxide 400 Mg Tab PO 400 mg AC-BID [facility]ENCIA Administration Metoprolol Succinate 50 mg 07/08/21 09:00 07/09/21 08:31 Metoprolol Succinate (Er) 50 Mg Tab.Er.24h PO 50 mg DAILY [facility] Administration Morphine Sulfate 4 mg 07/07/21 23:34 07/09/21 10:12 Morphine Sulfate 4 Mg/Ml Syringe IV 4 mg Q4HR PRN Administration Severe Pain Naloxone HCl 0.2 mg 07/07/21 23:34 Naloxone 0.4 Mg/Ml 1 Ml Vial IV Q2M PRN Opioid Reversal Nitroglycerin 0.4 mg 07/09/21 09:23 Nitroglycerin Sl Tabs 0.4 Mg Tab SUBLINGUAL Q5M PRN Chest Pain Pantoprazole Sodium 40 mg 07/08/21 07:30 07/09/21 07:09 Pantoprazole 40 Mg Tablet PO 40 mg AC-BRKFST [facility] Administration Spironolactone 25 mg 07/08/21 09:00 07/09/21 08:31 Spironolactone 25 Mg Tab PO 25 mg DAILY [facility] Administration Tramadol HCl 50 mg 07/08/21 16:33 07/09/21 08:32 Tramadol 50 Mg Tab PO 50 mg QID PRN Administration Pain/Discomfort Intake and Output 07/08/21 07/09/21 07/09/21 22:59 06:59 14:59 Intake Total 27.527 55.247 Output Total 250 Balance 27.527 -194.753 Intake: Intake, IV Titration 27.527 55.247 Amount Heparin Sod,Pork in 0.45% 27.527 55.247 NaCl 25,000 unit In 0.45 % NaCl 1 250ml.bag @ 12 UNITS/KG/HR 5.715 mls/hr IV .Q24H [facility] Rx#: [id number] Output: Urine 250 Other: Voiding Method Bedside Commode Bedside Commode # Voids 0 Weight 47.8 kg 07/09/21 07:20 07/09/21 07:20
[2021-07-09] MEDS ORDERED: IV FLUID CONTINUATION 1,000 ML IV ONE (11:25)
[2021-07-09] MEDS ORDERED: MIDAZOLAM 2 MG/2 ML VIAL IV ONE (11:30)
[2021-07-09] MEDS ORDERED: LIDOCAINE 1% INJ 10MG/ML (20 ML MDV) SQ ONE ×2 (11:32→11:34)
[2021-07-09] MEDS: VERAPAMIL SYRINGE (5 MG/10 ML) INTRAARTER ONE ×2 (11:33→11:47)
[2021-07-09] MEDS ORDERED: HEPARIN SODIUM 1,000 UN/ML (10ML VL) IV ONE (11:35)
[2021-07-09] MEDS ORDERED: IOPAMIDOL-370 125ML BTL INJ ONE (11:46)
[2021-07-09] MEDS ORDERED: RX INFO: IV CONTRAST WAS GIVEN 1 EACH MISC MISCELLANE PRN (11:51)
[2021-07-09] MEDS ORDERED: SODIUM CHLORIDE 0.9% 1,000 ML IV SCH (12:00)
[2021-07-09 12:09] LABS: Glucose,Whole Blood 165 mg/dL (75-99)
--- NOTE | 2021-07-09 13:57 | P.PN ---
Subjective Patient is a 61-year-old female came in the appearance of left-sided chest pain and also shortness of breath and patient the had a cast from her recent for for calcaneal fracture. Patient has EF of around 25-30% only on Aldactone at home it appears to be in a bit of heart failure with bilateral pleural effusion CT of the chest showed some infiltrate but no work program. Patient denied any cough. Patient had any fever chills. Patient is found to have mildly elevated troponin. Please refer to bird trapper documentation for EKG reading. Patient was evaluated by cardiology and they're recommending daily catheterization today. 07/09/2021 Patient underwent cardia catheterization which showed triple vessel disease and patient will be evaluated by cardiothoracic surgery for coronary artery bypass grafting. Patient had an echocardiogram which showed EF of around 30-35% with mitral regurgitation tricuspid regurgitation, wall motion abnormalities mild pulmonary hypertension and a large pleural effusion and small pericardial effusion. Patient doesn't have any chest pain at this time Constitutional: Denied any fatigue denied any fever. Cardio vascular: denied any chest pain, palpitations Gastrointestinal denied any nausea vomiting Pulmonary: Denied any shortness of breath cough Neurologic denied any new focal deficits All inpatient medications were reviewed and appropriate changes in these medications as dictated in the interval history and assessment and plan. PHYSICAL EXAMINATION: GENERAL: The patient is alert and oriented x3, not in any acute distress. Well developed, well nourished. HEENT: Pupils are round and equally reacting to light. EOMI. No scleral icterus. No conjunctival pallor. Normocephalic, atraumatic. No pharyngeal erythema. No thyromegaly. CARDIOVASCULAR: S1 and S2 present. No murmurs, rubs, or gallops. PULMONARY: Chest is clear to auscultation, no wheezing or crackles. ABDOMEN: Soft, nontender, nondistended, normoactive bowel sounds. No palpable organomegaly. MUSCULOSKELETAL: No joint swelling or deformity. EXTREMITIES: No cyanosis, clubbing, patient does have pedal edema patient has a cast in the left leg. NEUROLOGICAL: Gross neurological examination did not reveal any focal deficits. SKIN: No rashes. Assessment and plan -Acute non-ST elevation microinfarction: Patient is status post cardiac catheterization triple-vessel disease cardiothoracic surgery evaluation -Acute hypoxic respiratory failure most probably secondary to congestive heart failure chronic systolic dysfunction with acute exacerbation patient was started on low-dose of Lasix patient blood pressure is borderline low. Patient is on lisinopril which will be continued as well along with Aldactone. Pneumonia ruled out for calcitonin is low. -Nicotine use: Counseling was provided -Type 2 diabetes mellitus -Hyperlipidemia 1 possible hypervolemic hyponatremia Objective - Vital Signs Vital signs: Vital Signs Temp 98.4 F 07/09/21 08:00 Pulse 83 07/09/21 08:00 Resp 16 07/09/21 08:00 BP 119/74 07/09/21 08:00 Pulse Ox 94 L 07/09/21 08:00 Intake & Output 07/08/21 07/09/21 07/09/21 18:59 06:59 18:59 Intake Total 267.527 55.247 340 Output Total 250 Balance 267.527 -194.753 340 Weight 47.8 kg Intake: IV 100 Intake, IV Titration 27.527 55.247 Amount Heparin Sod,Pork in 0.45% 27.527 55.247 NaCl 25,000 unit In 0.45 % NaCl 1 250ml.bag @ 12 UNITS/KG/HR 5.715 mls/hr IV .Q24H [facility] Rx#: [id number] Oral 240 240 Output: Urine 250 Other: Voiding Method Bedside Commode Bedside Commode # Voids 1 0 - Labs CBC & Chem 7: 07/09/21 07:20 07/09/21 07:20 Labs: Abnormal Lab Results - Last 24 Hours (Table) 07/08/21 07/08/21 07/08/21 Range/Units 15:52 16:22 22:31 Hgb (11.4-16.0) gm/dL APTT 31.3 H 33.3 H (22.0-30.0) sec Sodium (137-145) mmol/L Chloride (98-107) mmol/L Carbon Dioxide (22-30) mmol/L Creatinine (0.52-1.04) mg/dL Glucose (74-99) mg/dL POC Glucose (mg/dL) 143 H (75-99) mg/dL Calcium (8.4-10.2) mg/dL 07/08/21 07/08/21 07/08/21 Range/Units 22:41 22:42 23:05 Hgb (11.4-16.0) gm/dL APTT (22.0-30.0) sec Sodium (137-145) mmol/L Chloride (98-107) mmol/L Carbon Dioxide (22-30) mmol/L Creatinine (0.52-1.04) mg/dL Glucose (74-99) mg/dL POC Glucose (mg/dL) 72 L 52 L 64 L (75-99) mg/dL Calcium (8.4-10.2) mg/dL 07/09/21 07/09/21 07/09/21 Range/Units 06:12 07:20 07:20 Hgb 11.3 L (11.4-16.0) gm/dL APTT 44.9 H (22.0-30.0) sec Sodium (137-145) mmol/L Chloride (98-107) mmol/L Carbon Dioxide (22-30) mmol/L Creatinine (0.52-1.04) mg/dL Glucose (74-99) mg/dL POC Glucose (mg/dL) 167 H (75-99) mg/dL Calcium (8.4-10.2) mg/dL 07/09/21 07/09/21 Range/Units 07:20 12:07 Hgb (11.4-16.0) gm/dL APTT (22.0-30.0) sec Sodium 134 L (137-145) mmol/L Chloride 97 L (98-107) mmol/L Carbon Dioxide 32 H (22-30) mmol/L Creatinine 0.46 L (0.52-1.04) mg/dL Glucose 170 H (74-99) mg/dL POC Glucose (mg/dL) 165 H (75-99) mg/dL Calcium 8.1 L (8.4-10.2) mg/dL Microbiology - Last 24 Hours (Table) 07/08/21 02:02 Blood Culture - Preliminary Blood No Growth after 24 hours
--- NOTE | 2021-07-09 14:42 | CC ---
CARDIAC CATHETERIZATION REPORT DATE OF SERVICE: July 09, 2021. PERFORMING PHYSICIAN: Sedrick Vanegas MD. PROCEDURE PERFORMED: 1. Selective right and left coronary angiogram. 2. Left heart catheterization. INDICATION: This is a very pleasant 61-year-old female patient with diabetes and smoking, as well as hypertension and dyslipidemia who was admitted to the hospital with chest discomfort and ruled in for acute [id number] myocardial infarction. She underwent heart catheterization which revealed impaired LV function with EF between 30-35 percent with inferolateral hypokinesia. In light of that, a heart catheterization was advised. APPROACH: Right radial artery. COMPLICATION: None. LEVEL OF SEDATION: Moderate with sedation length of 20 minutes. PROCEDURE DESCRIPTION: After obtaining informed consent, the patient was brought to the cardiac pathology laboratory aides teacher. The right radial artery was cannulated using micropuncture technique, the micropuncture wire passed easily. Then I placed a 6-[place] sheath in the right radial artery. I gave the patient 2 mg of verapamil IA and 5000 units of heparin IV. Selective right and left coronary angiogram performed with JR4 3.5 and JL3.5 catheters. Left heart catheterization was performed using 5-[place] pigtail catheter. The procedure was completed without any complication. SELECTIVE CORONARY ANGIOGRAM: 1. The right coronary artery is a moderate caliber vessel. It is a dominant vessel. The RCA is chronically occluded in the distal portion and fills by collateral from the left coronary system. 2. The left main is angiographically normal. It bifurcates into LCX and LAD. 3. The LCX is a large caliber vessel. It is a nondominant vessel. The proximal LCX has a lesion appeared to be in the range of 70% to 80%. This is just proximal to the bifurcation of a large obtuse marginal branch which has a critical lesion in the range of 80% to 90%. The circ after that has a lesion appeared to be in the range of 80-90 percent before it continues in the AV groove as a moderate caliber vessel and distally bifurcates into PDA and PLV branches. With that being said, the circ is a codominant vessel. 4. The LAD: The proximal LAD appeared to be angiographically normal. It gives rise into the first diagonal branch which is a moderate caliber vessel with a lesion appeared to be in the range of 60%. The mid LAD has a long tubular lesion, calcified, appeared to be in the range of 70%. The LAD distally just before the apex has another lesion appeared to be in the range of 80% to 90%. HEMODYNAMICS: The LVEDP was about 10 mmHg to 12 mmHg without significant gradient across the aortic valve. CONCLUSION: 1. Acute [id number] myocardial infarction in this 61-year-old female patient with diabetes and hypertension and dyslipidemia. The echo revealed impaired LV function with inferolateral hypokinesia. 2. Calcified right and left coronary systems. 3. Severe triple-vessel coronary artery disease. 4. Chronic total occlusion of the RCA. 5. Critical disease involving a complex lesion in the left circumflex coronary artery. 6. Severe disease involving the mid LAD as well as distal LAD with 2 long tubular lesions. POSTPROCEDURE MANAGEMENT: 1. Given the above anatomy, I advised the patient to be seen by cardiothoracic surgeon for the evaluation of coronary artery bypass grafting. 2. At this point, maximize medical treatment, including anti-platelet as well as high- intensity statin, as well as anti-ischemic medication using beta aixa. 3. Follow up with the patient. KATERINE / CORTNEYN: [id number] /
[2021-07-09 16:35] LABS: Glucose,Whole Blood 196 mg/dL (75-99)
--- NOTE | 2021-07-09 16:39 | US ---
EXAMINATION TYPE: US carotid duplex BILAT DATE OF EXAM: 07/09/2021 COMPARISON: NONE CLINICAL HISTORY: Pre-Op Cardiac Surgery. EXAM MEASUREMENTS: RIGHT: Peak Systolic Velocity (PSV) cm/sec ----- Right CCA: 101 ----- Right ICA: 93.5 ----- Right ECA: 87.7 ICA/CCA ratio: 1.22 RIGHT: End Diastole cm/sec ----- Right CCA: 24 ----- Right ICA: 40.3 ----- Right ECA: 17.5 LEFT: Peak Systolic Velocity (PSV) cm/sec ----- Left CCA: 106 ----- Left ICA: 104 ----- Left ECA: 62.9 ICA/CCA ratio: 0.98 LEFT: End Diastole cm/sec ----- Left CCA: 27.9 ----- Left ICA: 43.5 ----- Left ECA: 11 VERTEBRALS (direction of flow): Right Vertebral: Antegrade Left Vertebral: Antegrade Rhythm: Normal No significant stenosis seen IMPRESSION: There is antegrade flow in the vertebral arteries. The images and measurements suggest close to 0% st enosis in both internal carotid arteries. Criteria for Assigning % of Stenosis / Diameter reduction (Estimation based on the indirect measurements of the internal carotid artery velocities (ICA PSV). 1. Normal (no stenosis)=ICA PSV < 125 cm/s: ratio < 2.0: ICA EDV<40 cm/s. 2. Less than 50% stenosis=ICA PSV < 125 cm/s: ratio < 2.0: ICA EDV<40 cm/s. 3. 50 to 69% stenosis=ICA PSV of 125 to 230 cm/s: ration 2.0 ? 4.0: ICA EDV 40-100 cm/s. 4. Greater than 70% stenosis to near occlusion= ICA PSV > 230 cm/s: ratio > 4.0: ICA EDV > 100 cm/s. 5. Near occlusion= ICA PSV velocities may be low or undetectable: variable ratio and ICA EDV. 6. Total occlusion=unable to detect flow.
--- NOTE | 2021-07-09 17:26 | P.GSCN ---
History of Present Illness Consult date: 07/09/21 Reason for Consult: Multivessel coronary artery disease. Requesting physician: Sedrick Vanegas History of present illness: This is a 61-year-old female patient who is followed by Dr. Scott Marcos on an outpatient basis for her primary care service. She is a past medical history significant for hypertension, hyperlipidemia, insulin-dependent diabetes mellitus, osteoarthritis, insomnia, degenerative disc disease, pneumonia, colitis C. difficile, depression, fibromyalgia, chronic pain syndrome, current ongoing tobacco abuse and recent accidental overdose. On 07/07/2021 the patient presented to the emergency department here at [facility] due to complaints of shortness of breath, lower back pain and chest tightness with a history of recent fall from standing. The patient also has a history of a re cent fracture to her left foot which is being treated by Dr. Carrillo. She reports on 07/06/2021 she sustained a fall and fell on her left chest wall on her walker. She denies any syncope, fever, chills, headache, nausea, vomiting, diaphoresis, orthopnea, constipation, diarrhea hemoptysis or hematemesis. Due to her complaints of shortness of breath and chest tightness she was encouraged to come to the emergency department for further evaluation and treatment recommendations. Initial laboratory results showed a WBC count of 9.1, hemoglobin 13.5, hematocrit 42.7, platelets 394, d-dimer 1.68, sodium 135, potassium 4.3, BUN 11, creatinine 0.35, glucose 420, calcium 8.7, magnesium 1.7, and a positive serial troponins as high as 0.090. The patient reports that she is NON-vaccinated for covid-19 and her Coronavirus PCR was not detected. A chest x-ray was completed which showed bilateral lower lobe pneumonia and pleural fluid. Due to her elevated d-dimer a chest computed tomography scan angiO for PE was completed which showed no evidence for pulmonary embolism, bilateral lower lobe pneumonia and atelectasis and moderate pleural effusions, chronic congestive heart failure and a new mediastinal adenopathy compared to her old exam per the report. A 12-lead EKG was completed which showed sinus tachycardia with ST and T-wave abnormality to her inferior leads with a heart rate of 121 BPM. On 07/08/2021 a 2-D echocardiogram was completed which showed an overall left ventricular systolic function to be moderate to severely impaired with an ejection fraction between 30 and 35%, mild mitral annular calcification, mild mitral valve regurgitation, mild tricuspid valve regurgita tion, a small generalized pericardial effusion and a large pleural effusion. Due to the patient's presenting symptoms and elevated serial troponins she underwent a cardiac catheterization today performed by Dr. Vanegas, which demonstrated a chronically occluded distal right coronary artery and fills by collaterals from the left coronary system, a 70-80% stenosis to her proximal left circumflex coronary artery, and 80-90% stenosis to her obtuse marginal branch, an 80-90% stenosis to her circumflex coronary artery before it continues in the AV groove, a 60% stenosis to her first diagonal coronary artery, a 70% stenosis to her mid left anterior descending coronary artery and an 80-90% stenosis to her distal left anterior descending coronary artery. Subsequently, due to the patient's presenting symptoms, and findings on the cardiac catheterization a consult was placed to Dr. Patrice Olvera from cardiothoracic surgery for further evaluation and treatment recommendations including myocardial revascularization surgery. Review of Systems A 14 point review of systems was completed and was negative except as mentioned in the HPI. Past Medical History Past Medical History: Diabetes Mellitus, Fibromyalgia, Hyperlipidemia, Hyper tension, Osteoarthritis (OA) Additional Past Medical History / Comment(s): myalgia, myositis, sciatica, chronic pain syndrome, vaginitis, otalgia, fatigue, malaise, UTI, microscopic hematuria, tachycardia, insomnia, lumbago, degenerative disc, colitis History of Any Multi-Drug Resistant Organisms: C-DIFF Year Discovered:: February 15 2020 MDRO Source:: stool Past Surgical History: Cholecystectomy, Orthopedic Surgery, Tubal Ligation Additional Past Surgical History / Comment(s): left wrist Past Anesthesia/Blood Transfusion Reactions: No Reported Reaction Past Psychological History: Depression Smoking Status: Current every day smoker Past Alcohol Use History: None Reported Past Drug Use History: Marijuana (Occasional marijuana use with gummy bears) - Past Family History Mother Family Medical History: Cancer, COPD Additional Family Medical History / Comment(s): cervical cancer Father Family Medical History: Cancer Additional Family Medical History / Comment(s): etoh abuse Medications and Allergies Home Medications Medication Instructions Recorded Confirmed Type DULoxetine HCL [Cymbalta] 30 mg PO DAILY 03/12/20 07/07/21 History metFORMIN HCL [Glucophage] 1,000 mg PO BID 03/12/20 07/07/21 History Atorvastatin [Lipitor] 20 mg PO DAILY 01/10/21 07/07/21 History Pantoprazole Sodium 40 mg PO DAILY 01/10/21 07/07/21 History hydrOXYzine HCL [Atarax] 25 - 50 mg PO HS PRN 01/10/21 07/07/21 History Magnesium Oxide 400 mg PO AC-BID #60 tablet 01/13/21 07/07/21 Rx Aspirin EC [Ecotrin Low Dose] 81 mg PO DAILY 06/05/21 07/07/21 History Furosemide [Lasix] 40 mg PO DAILY tab 06/08/21 07/07/21 Rx Gabapentin [Neurontin] 100 mg PO DAILY #3 cap 06/08/21 07/07/21 Rx Gabapentin [Neurontin] 200 mg PO HS #3 cap 06/08/21 07/07/21 Rx HYDROcodone/APAP 10-325MG [[place] 1 tab PO Q6H PRN #6 tab 06/08/21 07/07/21 Rx 10-325] Insuln Asp Prt/Insulin Aspart 10 unit SQ AC-SUPPER ml 06/08/21 07/07/21 Rx [NovoLOG MIX 70-30 VIAL] Insuln Asp Prt/Insulin Aspart 15 unit SQ AC-BRKFST ml 06/08/21 07/07/21 Rx [NovoLOG MIX 70-30 VIAL] Nystatin 100,000Unit/gm Cream 1 applic TOPICAL BID gm 06/08/21 07/07/21 Rx [Mycostatin Cream] Spironolactone [Aldactone] 25 mg PO DAILY #0 tab 06/08/21 07/07/21 Rx Metoprolol Succinate (ER) [Toprol 50 mg PO DAILY #30 tablet 06/11/21 07/07/21 Rx XL] lisinopriL [Zestril] 5 mg PO DAILY 07/07/21 07/07/21 History Allergies Allergy/AdvReac Type Severity Reaction Status Date / Time pregabalin [From Lyrica] AdvReac Swelling Verified 07/07/21 20:51 trazodone AdvReac Unknown Verified 07/07/21 20:51 Surgical - Exam Vital Signs Temp Pulse Resp BP Pulse Ox 98.6 F 22 L 18 148/93 90 L 07/07/21 19:29 07/07/21 19:29 07/07/21 19:29 07/07/21 19:29 07/07/21 19:29 - General Currently lying in bed on the cardiac stepdown unit, is awake, alert and oriented 3, cooperative and is in no acute distress. well developed, well nourished, no distress, no pain - Eyes PERRL, normal ocular movement, no pale, no icteric - ENT normal pinna, normal nares, normal mucosa, no hearing loss, no congestion, poor snf - Neck Neck is supple, no lymphadenopathy. No carotid bruit. no masses, no bruits, trachea midline, no venous distension - Respiratory Lungs sounds essentially clear to her bilateral upper lobes, few scattered crackles and diminished bilateral bases. Respirations are symmetrical and nonlabored. No wheezing, or rhonchi. - Cardiovascular Regular rhythm and rate. S1 and S2 present, negative for S3, gallop or murmur. No edema present to her bilateral lower extremities. - Abdomen Abdomen is soft, nontender and nondistended. Active bowel sounds present all 4 abdominal quadrants. No guarding or rigidity. No organomegaly appreciated. - Integumentary no rash, no growths, no abnormal pigmentation - Neurologic normal coordination, normal sensation - Musculoskeletal Cast in place to her left foot up to her left chest below the knee. Moves all 4 extremities with equal strength. - Psychiatric oriented to time, oriented to person, oriented to place, speech is normal, memory intact Results - Labs 07/09/21 07:20 07/09/21 07:20 Abnormal Lab Results - Last 24 Hours (Table) 07/08/21 07/08/21 07/08/21 Range/Units 22:31 22:41 22:42 Hgb (11.4-16.0) gm/dL APTT 33.3 H (22.0-30.0) sec Sodium (137-145) mmol/L Chloride (98-107) mmol/L Carbon Dioxide (22-30) mmol/L Creatinine (0.52-1.04) mg/dL Glucose (74-99) mg/dL POC Glucose (mg/dL) 72 L 52 L (75-99) mg/dL Calcium (8.4-10.2) mg/dL 07/08/21 07/09/21 07/09/21 Range/Units 23:05 06:12 07:20 Hgb 11.3 L (11.4-16.0) gm/dL APTT (22.0-30.0) sec Sodium (137-145) mmol/L Chloride (98-107) mmol/L Carbon Dioxide (22-30) mmol/L Creatinine (0.52-1.04) mg/dL Glucose (74-99) mg/dL POC Glucose (mg/dL) 64 L 167 H (75-99) mg/dL Calcium (8.4-10.2) mg/dL 07/09/21 07/09/21 07/09/21 Range/Units 07:20 07:20 12:07 Hgb (11.4-16.0) gm/dL APTT 44.9 H (22.0-30.0) sec Sodium 134 L (137-145) mmol/L Chloride 97 L (98-107) mmol/L Carbon Dioxide 32 H (22-30) mmol/L Creatinine 0.46 L (0.52-1.04) mg/dL Glucose 170 H (74-99) mg/dL POC Glucose (mg/dL) 165 H (75-99) mg/dL Calcium 8.1 L (8.4-10.2) mg/dL 07/09/21 Range/Units 16:33 Hgb (11.4-16.0) gm/dL APTT (22.0-30.0) sec Sodium (137-145) mmol/L Chloride (98-107) mmol/L Carbon Dioxide (22-30) mmol/L Creatinine (0.52-1.04) mg/dL Glucose (74-99) mg/dL POC Glucose (mg/dL) 196 H (75-99) mg/dL Calcium (8.4-10.2) mg/dL Microbiology - Last 24 Hours (Table) 07/08/21 02:02 Blood Culture - Preliminary Blood No Growth after 24 hours Diabetes panel 07/09/21 Range/Units 07:20 Sodium 134 L (137-145) mmol/L Potassium 3.7 (3.5-5.1) mmol/L Chloride 97 L (98-107) mmol/L Carbon Dioxide 32 H (22-30) mmol/L BUN 17 (7-17) mg/dL Creatinine 0.46 L (0.52-1.04) mg/dL Glucose 170 H (74-99) mg/dL Calcium 8.1 L (8.4-10.2) mg/dL Thyroid panel 07/09/21 Range/Units 15:50 TSH 0.912 (0.465-4.680) mIU/L Calcium panel 07/09/21 Range/Units 07:20 Calcium 8.1 L (8.4-10.2) mg/dL Pituitary panel 07/09/21 07/09/21 Range/Units 07:20 15:50 Sodium 134 L (137-145) mmol/L Potassium 3.7 (3.5-5.1) mmol/L Chloride 97 L (98-107) mmol/L Carbon Dioxide 32 H (22-30) mmol/L BUN 17 (7-17) mg/dL Creatinine 0.46 L (0.52-1.04) mg/dL Glucose 170 H (74-99) mg/dL Calcium 8.1 L (8.4-10.2) mg/dL TSH 0.912 (0.465-4.680) mIU/L Adrenal panel 07/09/21 Range/Units 07:20 Sodium 134 L (137-145) mmol/L Potassium 3.7 (3.5-5.1) mmol/L Chloride 97 L (98-107) mmol/L Carbon Dioxide 32 H (22-30) mmol/L BUN 17 (7-17) mg/dL Creatinine 0.46 L (0.52-1.04) mg/dL Glucose 170 H (74-99) mg/dL Calcium 8.1 L (8.4-10.2) mg/dL - Imaging Chest x-ray: report reviewed, image reviewed CT scan - chest: report reviewed, image reviewed EKG: image reviewed Additional studies: 2-D echocardiogram results reviewed and cardiac catheterization results reviewed by Dr. Patrice Olvera. Assessment and Plan Assessment: 1. Multivessel coronary artery disease 2. Non-ST elevated myocardial infarction this admission, elevated troponins 3. Bilateral pneumonias by chest x-ray and CT scan of her chest 4. Cardiomyopathy with an ejection fraction of 30-35% 5. Status post fall from standing 6. Multiple fractures to her left foot, per the patient 7. Small generalized pericardial effusion per transthoracic 2-D echocardiogram 8. History of hypertension 9. History of hyperlipidemia 10. Insulin-dependent diabetes mellitus, uncontrolled with a admission blood sugar of 420 11. Bilateral pleural effusions per chest x-ray and per computed tomography scan of her chest 12. Chronic ongoing tobacco abuse 13. Osteoarthritis 14. Fibromyalgia 15. History of depression Plan: The patient was seen and examined at her bedside on the cardiac stepdown unit. Her chart and diagnostics were reviewed. Her case was discussed in detail with Dr. Patrice Olvera from cardiothoracic surgery. Preoperative testing and preoperative teaching has been initiated. The usual preoperative course of myocardial revascularization surgery was discussed in detail with the patient. Once her preoperative testing has been completed an STS risk score will be calculated and discussed with the patient. Once the patient is able to ambulate a 5 m walk test will be completed with the patient. Continue to optimize medical management with aspirin, statin and beta aixa. Medical management and other comorbidities per primary care service. More recommendations to follow based on patient's clinical course and as the patient's preoperative testing has been obtained. Thank you Dr. Vanegas for this consult and we look forward to working with you in the care of this patient. Time with Patient: Greater than 30
[2021-07-09 20:36] LABS: Glucose,Whole Blood 182 mg/dL (75-99)
[2021-07-09] MEDS: MUPIROCIN 2% OINT 22 GM TUBE NASAL SCH (20:45)
[2021-07-10 01:05] LABS: Chol/HDL Ratio 3.25 Ratio; LDL Cholesterol,Calculated 59.8 mg/dL (0.0-131.0)
[2021-07-10 01:12] LABS: Hepatitis A Antibody IgM Nonreactive (Nonreactive); Hepatitis B Core IgM Nonreactive (Nonreactive); Hepatitis B Surface Antigen Nonreactive (Nonreactive); Hepatitis C IgG Antibody Nonreactive (Nonreactive)
[2021-07-10] MEDS: MORPHINE SULFATE 4 MG/ML SYRINGE IV PRN ×5 (03:41→20:47)
[2021-07-10 06:19] LABS: Glucose,Whole Blood 124 mg/dL (75-99)
[2021-07-10] MEDS: INSULIN ASPART (NovoLOG) 100 UNIT/ML VIAL SQ SCH ×4 (06:32→20:49)
[2021-07-10] MEDS: MAGNESIUM OXIDE 400 MG TAB PO SCH ×2 (06:35→17:14)
[2021-07-10] MEDS: PANTOPRAZOLE 40 MG TABLET PO SCH (06:35)
[2021-07-10] MEDS: SODIUM CHLORIDE 0.9% 1,000 ML in EMPTY BAG 1 BAG IV SCH (06:38)
[2021-07-10] MEDS: INSULN ASP PRT/INSULIN ASPART 100 UNIT/ML 10 ML VIAL SQ SCH ×2 (06:40→17:48)
[2021-07-10] MEDS ORDERED: HEPARIN SODIUM,PORCINE 10,000 UNIT in SODIUM CHLORIDE 0.9% 1,000 ML IRRIGATION PRN (07:00)
[2021-07-10] MEDS ORDERED: HEPARIN SODIUM,PORCINE 2,500 UNIT in SODIUM CHLORIDE 0.9% 250 ML IRRIGATION PRN (07:00)
[2021-07-10 07:46] LABS: Basophils % (A) 1 %; Eosinophils # (A) 0.5 k/uL (0-0.7); Eosinophils % (A) 8 %; HCT 33.1 % (34.0-46.0); HGB 10.9 gm/dL (11.4-16.0); Lymphocytes # (A) 1.7 k/uL (1.0-4.8); Lymphocytes % (A) 28 %; MCH 29.1 pg (25.0-35.0); MCHC 32.9 g/dL (31.0-37.0); MCV 88.2 fL (80.0-100.0); Mean Platelet Volume 7.8; Monocytes # (A) 0.4 k/uL (0-1.0); Monocytes % (A) 6 %; Neutrophils # (A) 3.6 k/uL (1.3-7.7); Neutrophils % (A) 57 %; Platelet Count 265 k/uL (150-450); RBC 3.75 m/uL (3.80-5.40); RDW 15.6 % (11.5-15.5); WBC 6.3 k/uL (3.8-10.6)
--- NOTE | 2021-07-10 07:54 | P.PN ---
Subjective Progress Note Date: 07/10/21 Principal diagnosis: Acute non-ST patient myocardial infarction/severe CAD The patient is a 61-year-old female patient was diabetes and smoking and also hypertension and dyslipidemia who was admitted to the hospital with a chest discomfort and she was ruled in for acute non-ST patient myocardial infarction. The troponin came in to be abnormal. EKG showed ST changes concerning for ischemia. The echo showed inverted only function was EF around 30-35% with evidence of wall motion abnormalities in the inferolateral segments concerning for severe CAD. For that reason she underwent a heart catheterization that revealed severe triple-vessel CAD. Cardiothoracic surgery consult was placed and the patient is in process to be seen. She was seen this morning. She stated that the chest discomfort has resolved. Currently she is hemodynamically stable and she is on maximize medical treatment including aspirin and statin and beta aixa and BECKY inhibitor and Aldactone. We will consider increasing the intensity statin on her. Objective - Vital Signs Vital signs: Vital Signs Temp 98.7 F 07/10/21 04:00 Pulse 82 07/10/21 04:00 Resp 18 07/10/21 04:00 BP 108/62 07/10/21 04:00 Pulse Ox 95 07/10/21 04:00 Intake & Output 07/09/21 07/10/21 07/10/21 18:59 06:59 18:59 Intake Total 580 Output Total 300 Balance 580 -300 Weight 47.8 kg 54.3 kg Intake: IV 100 Oral 480 Output: Urine 300 Other: Voiding Method Bedside Commode # Voids 1 - Constitutional General appearance: Present: no acute distress - Respiratory Respiratory: bilateral: CTA - Cardiovascular Rhythm: regular Heart sounds: normal: S1, S2 - Labs CBC & Chem 7: 07/10/21 07:33 07/09/21 07:20 Labs: Abnormal Lab Results - Last 24 Hours (Table) 07/09/21 07/09/21 07/09/21 Range/Units 07:20 07:20 07:20 RBC (3.80-5.40) m/uL Hgb 11.3 L (11.4-16.0) gm/dL Hct (34.0-46.0) % RDW (11.5-15.5) % APTT 44.9 H (22.0-30.0) sec Sodium 134 L (137-145) mmol/L Chloride 97 L (98-107) mmol/L Carbon Dioxide 32 H (22-30) mmol/L Creatinine 0.46 L (0.52-1.04) mg/dL Glucose 170 H (74-99) mg/dL POC Glucose (mg/dL) (75-99) mg/dL Hemoglobin A1c (4.0-6.0) % Calcium 8.1 L (8.4-10.2) mg/dL HDL Cholesterol (40.00-60.00) mg/dL 07/09/21 07/09/21 07/09/21 Range/Units 12:07 15:50 15:50 RBC (3.80-5.40) m/uL Hgb (11.4-16.0) gm/dL Hct (34.0-46.0) % RDW (11.5-15.5) % APTT (22.0-30.0) sec Sodium (137-145) mmol/L Chloride (98-107) mmol/L Carbon Dioxide (22-30) mmol/L Creatinine (0.52-1.04) mg/dL Glucose (74-99) mg/dL POC Glucose (mg/dL) 165 H (75-99) mg/dL Hemoglobin A1c 10.2 H (4.0-6.0) % Calcium (8.4-10.2) mg/dL HDL Cholesterol 39.40 L (40.00-60.00) mg/dL 07/09/21 07/09/21 07/10/21 Range/Units 16:33 20:35 06:17 RBC (3.80-5.40) m/uL Hgb (11.4-16.0) gm/dL Hct (34.0-46.0) % RDW (11.5-15.5) % APTT (22.0-30.0) sec Sodium (137-145) mmol/L Chloride (98-107) mmol/L Carbon Dioxide (22-30) mmol/L Creatinine (0.52-1.04) mg/dL Glucose (74-99) mg/dL POC Glucose (mg/dL) 196 H 182 H 124 H (75-99) mg/dL Hemoglobin A1c (4.0-6.0) % Calcium (8.4-10.2) mg/dL HDL Cholesterol (40.00-60.00) mg/dL 07/10/21 Range/Units 07:33 RBC 3.75 L (3.80-5.40) m/uL Hgb 10.9 L (11.4-16.0) gm/dL Hct 33.1 L (34.0-46.0) % RDW 15.6 H (11.5-15.5) % APTT (22.0-30.0) sec Sodium (137-145) mmol/L Chloride (98-107) mmol/L Carbon Dioxide (22-30) mmol/L Creatinine (0.52-1.04) mg/dL Glucose (74-99) mg/dL POC Glucose (mg/dL) (75-99) mg/dL Hemoglobin A1c (4.0-6.0) % Calcium (8.4-10.2) mg/dL HDL Cholesterol (40.00-60.00) mg/dL Microbiology - Last 24 Hours (Table) 07/08/21 02:02 Blood Culture - Preliminary Blood No Growth after 48 hours 07/09/21 16:40 Nasal Screen MRSA/MSSA - Preliminary Nasal Swab Assessment and Plan Assessment: Assessment #1 acute non-ST elevation myocardial infarction #2 severe ischemic cardiomyopathy #3 severe triple-vessel CAD #4 multiple comorbidities including smoking and diabetes and hypertension and dyslipidemia Plan #1 continue the current medical regimen #2 consider increasing the statin intensity #3 follow-up with the patient after she would be seen by the surgical team
[2021-07-10 07:59] LABS: ALT 31 U/L (4-34); AST 68 U/L (14-36); African American GFR (CKD) >90 (>60 ml/min/1.73 sqM); Albumin 2.7 g/dL (3.5-5.0); Alkaline Phosphatase 150 U/L (38-126); Anion Gap 2 mmol/L; Blood Urea Nitrogen 18 mg/dL (7-17); Calcium 8.4 mg/dL (8.4-10.2); Carbon Dioxide 37 mmol/L (22-30); Chloride 98 mmol/L (98-107); Glucose 132 mg/dL (74-99); Non-African American GFR(CKD) >90 (>60 ml/min/1.73 sqM); Potassium 4.7 mmol/L (3.5-5.1); Sodium 137 mmol/L (137-145); Total Bilirubin 0.4 mg/dL (0.2-1.3); Total Protein 6.1 g/dL (6.3-8.2)
[2021-07-10] MEDS: ASPIRIN 81 MG PO SCH (08:39)
[2021-07-10] MEDS: ATORVASTATIN 20 MG TAB PO SCH (08:39)
[2021-07-10] MEDS: DULoxetine HCL 30 MG CAPSULE.DR PO SCH (08:39)
[2021-07-10] MEDS: MUPIROCIN 2% OINT 22 GM TUBE NASAL SCH ×2 (08:40→20:49)
[2021-07-10] MEDS: METOPROLOL SUCCINATE (ER) 50 MG TAB.ER.24H PO SCH (08:40)
[2021-07-10] MEDS: SPIRONOLACTONE 25 MG TAB PO SCH (08:40)
[2021-07-10] MEDS: GABAPENTIN 100 MG CAP PO SCH ×2 (08:40→20:48)
[2021-07-10] MEDS: lisinopriL 5 MG TAB PO SCH (08:40)
[2021-07-10] MEDS: FUROSEMIDE 10 MG/ML 2 ML VIAL IV SCH ×2 (08:40→20:47)
--- NOTE | 2021-07-10 11:08 | P.PN ---
Subjective Patient is a 61-year-old female came in the appearance of left-sided chest pain and also shortness of breath and patient the had a cast from her recent for for calcaneal fracture. Patient has EF of around 25-30% only on Aldactone at home it appears to be in a bit of heart failure with bilateral pleural effusion CT of the chest showed some infiltrate but no work program. Patient denied any cough. Patient had any fever chills. Patient is found to have mildly elevated troponin. Please refer to parts coordinator documentation for EKG reading. Patient was evaluated by cardiology and they're recommending daily catheterization today. 07/09/2021 Patient underwent cardia catheterization which showed triple vessel disease and patient will be evaluated by cardiothoracic surgery for coronary artery bypass grafting. Patient had an echocardiogram which showed EF of around 30-35% with mitral regurgitation tricuspid regurgitation, wall motion abnormalities mild pulmonary hypertension and a large pleural effusion and small pericardial effusion. Patient doesn't have any chest pain at this time 07/10/2021 Patient is undergoing compensative evaluation for coronary artery bypass grafting patient was evaluated by cardiothoracic surgery patient had a carotid Doppler which did not show any significant abnormality further workup of a venous mapping is being done at this time. Patient is off IV fluids and low- dose of Lasix. Patient had low EF of around 30-35% secondary to heart failure from acute myocardial infarction is euvolemic at this time. Constitutional: Denied any fatigue denied any fever. Cardio vascular: denied any chest pain, palpitations Gastrointestinal denied any nausea vomiting Pulmonary: Denied any shortness of breath cough Neurologic denied any new focal deficits All inpatient medications were reviewed and appropriate changes in these medications as dictated in the interval history and assessment and plan. PHYSICAL EXAMINATION: GENERAL: The patient is alert and oriented x3, not in any acute distress. Well developed, well nourished. HEENT: Pupils are round and equally reacting to light. EOMI. No scleral icterus. No conjunctival pallor. Normocephalic, atraumatic. No pharyngeal erythema. No thyromegaly. CARDIOVASCULAR: S1 and S2 present. No murmurs, rubs, or gallops. PULMONARY: Chest is clear to auscultation, no wheezing or crackles. ABDOMEN: Soft, nontender, nondistended, normoactive bowel sounds. No palpable organomegaly. MUSCULOSKELETAL: No joint swelling or deformity. EXTREMITIES: No cyanosis, clubbing, patient does have pedal edema patient has a cast in the left leg. NEUROLOGICAL: Gross neurological examination did not reveal any focal deficits. SKIN: No rashes. Assessment and plan -Acute non-ST elevation myocardial infarction: Patient is status post cardiac catheterization triple-vessel disease cardiothoracic surgery evaluation -Acute hypoxic respiratory failure most probably secondary to congestive heart failure chronic systolic dysfunction with acute exacerbation patient was started on low-dose of Lasix patient blood pressure is borderline low. Patient is on lisinopril which will be continued as well along with Aldactone. Pneumonia ruled out for calcitonin is low. -Nicotine use: Counseling was provided -Type 2 diabetes mellitus -Hyperlipidemia 1 possible hypervolemic hyponatremia Objective - Vital Signs Vital signs: Vital Signs Temp 98.2 F 07/10/21 08:00 Pulse 83 07/10/21 08:00 Resp 18 07/10/21 08:00 BP 120/76 07/10/21 08:00 Pulse Ox 97 07/10/21 08:00 Intake & Output 07/09/21 07/10/21 07/10/21 18:59 06:59 18:59 Intake Total 580 Output Total 300 300 Balance 580 -300 -300 Weight 47.8 kg 54.3 kg Intake: IV 100 Oral 480 Output: Urine 300 300 Other: Voiding Method Bedside Commode Bedside Commode # Voids 1 - Labs CBC & Chem 7: 07/10/21 07:33 07/10/21 07:33 Labs: Abnormal Lab Results - Last 24 Hours (Table) 07/09/21 07/09/21 07/09/21 Range/Units 12:07 15:50 15:50 RBC (3.80-5.40) m/uL Hgb (11.4-16.0) gm/dL Hct (34.0-46.0) % RDW (11.5-15.5) % Carbon Dioxide (22-30) mmol/L BUN (7-17) mg/dL Creatinine (0.52-1.04) mg/dL Glucose (74-99) mg/dL POC Glucose (mg/dL) 165 H (75-99) mg/dL Hemoglobin A1c 10.2 H (4.0-6.0) % AST (14-36) U/L Alkaline Phosphatase (38-126) U/L Total Protein (6.3-8.2) g/dL Albumin (3.5-5.0) g/dL HDL Cholesterol 39.40 L (40.00-60.00) mg/dL 07/09/21 07/09/21 07/10/21 Range/Units 16:33 20:35 06:17 RBC (3.80-5.40) m/uL Hgb (11.4-16.0) gm/dL Hct (34.0-46.0) % RDW (11.5-15.5) % Carbon Dioxide (22-30) mmol/L BUN (7-17) mg/dL Creatinine (0.52-1.04) mg/dL Glucose (74-99) mg/dL POC Glucose (mg/dL) 196 H 182 H 124 H (75-99) mg/dL Hemoglobin A1c (4.0-6.0) % AST (14-36) U/L Alkaline Phosphatase (38-126) U/L Total Protein (6.3-8.2) g/dL Albumin (3.5-5.0) g/dL HDL Cholesterol (40.00-60.00) mg/dL 07/10/21 07/10/21 Range/Units 07:33 07:33 RBC 3.75 L (3.80-5.40) m/uL Hgb 10.9 L (11.4-16.0) gm/dL Hct 33.1 L (34.0-46.0) % RDW 15.6 H (11.5-15.5) % Carbon Dioxide 37 H (22-30) mmol/L BUN 18 H (7-17) mg/dL Creatinine 0.51 L (0.52-1.04) mg/dL Glucose 132 H (74-99) mg/dL POC Glucose (mg/dL) (75-99) mg/dL Hemoglobin A1c (4.0-6.0) % AST 68 H (14-36) U/L Alkaline Phosphatase 150 H (38-126) U/L Total Protein 6.1 L (6.3-8.2) g/dL Albumin 2.7 L (3.5-5.0) g/dL HDL Cholesterol (40.00-60.00) mg/dL Microbiology - Last 24 Hours (Table) 07/08/21 02:02 Blood Culture - Preliminary Blood No Growth after 48 hours 07/09/21 16:40 Nasal Screen MRSA/MSSA - Preliminary Nasal Swab
[2021-07-10 12:15] LABS: Glucose,Whole Blood 214 mg/dL (75-99)
--- NOTE | 2021-07-10 13:42 | P.CNPUL ---
History of Present Illness Consult date: 07/10/21 Requesting physician: John Allen Reason for consult: COPD Chief complaint: Chest pain, back pain History of present illness: This is a 61-year-old female patient who follows with Dr. Marcos is her primary care provider. She has a history of chronic and ongoing tobacco dependence, not on oxygen or inhalers at home, diabetes mellitus, hyperlipidemia. She presented here to the emergency room after sustaining a fall at home. She states she tripped over a box and fell backwards and hitting her back on her walker. The next day she had developed chest tightness and shortness of breath and presented here for the same. His chest x-ray showed evidence of bilateral lower lobe pneumonia and pleural effusion with some mild congestive heart failure. CT angiogram ruled out pulmonary embolism. There is again bilateral lower lobe pneumonias with atelectasis and moderate pleural effusions. Echocardiogram revealed moderate to severely impaired left ventricular systolic function with ejection fraction 30-35%. She was found to have an acute non-ST segment elevation myocardial infarction and had undergone left and a heart catheterization that revealed severe triple-vessel coronary artery disease with chronic total occlusion of the RCA, critical disease involving the circumflex and severe disease involving the mid LAD as well as a distal LAD. She was recommended maximum medical therapy and being evaluated by cardiothoracic surgery. Pulmonary function testing revealed an FEV1 value of 1.17 L which was 48% of predicted. He is seen today in consultation. She is sitting up in a lisset ir at the bedside. Awake and alert in no acute distress. She denies any shortness of breath, cough or congestion. No hemoptysis. He is maintaining O2 saturations in the mid 90s on 2 L/m per nasal cannula. White count 6.3. Hemoglobin 10.9. Sodium 137. Potassium 4.7. Creatinine 0.51. AST 68. ALT 31. Glucose 132. Dyer virus not detected. The patient is not vaccinated. Review of Systems REVIEW OF SYSTEMS: CONSTITUTIONAL: Denies any recent significant weight loss or weight gain. EYES: Denies change in vision. EARS, NOSE, MOUTH, THROAT: Denies headaches, denies sore throat. CARDIOVASCULAR: Positive for chest pain, no palpitations or syncopal episodes. RESPIRATORY: Denies shortness of breath, cough, congestion or hemoptysis. GASTROINTESTINAL: Denies change in appetite, denies abdominal pain GENITOURINARY: Denies hematuria, denies infections. MUSKULOSKELETAL: Unsteady sedation. Denies pain, denies swelling. INTEGUMENTARY: Denies rash, denies eczema. NEUROLOGICAL: Denies recent memory loss, no recent seizure activity. PSYCHIATRIC: Denies anxiety, denies depression. HEMATOLOGIC/LYMPHATIC: Denies anemia, denies enlarged lymph nodes. Past Medical History Past Medical History: Diabetes Mellitus, Fibromyalgia, Hyperlipidemia, Hypertension, Osteoarthritis (OA) Additional Past Medical History / Comment(s): myalgia, myositis, sciatica, chronic pain syndrome, vaginitis, otalgia, fatigue, malaise, UTI, microscopic hematuria, tachycardia, insomnia, lumbago, degenerative disc, colitis History of Any Multi-Drug Resistant Organisms: C-DIFF Date of last positivie culture/infection: February 15 2020 MDRO Source:: stool Past Surgical History: Cholecystectomy, Orthopedic Surgery, Tubal Ligation Additional Past Surgical History / Comment(s): left wrist Past Anesthesia/Blood Transfusion Reactions: No Reported Reaction Past Psychological History: Depression Smoking Status: Current every day smoker Past Alcohol Use History: None Reported Past Drug Use History: Marijuana (Occasional marijuana use with gummy bears) - Past Family History Mother Family Medical History: Cancer, COPD Additional Family Medical History / Comment(s): cervical cancer Father Family Medical History: Cancer Additional Family Medical History / Comment(s): etoh abuse Medications and Allergies Home Medications Medication Instructions Recorded Confirmed Type DULoxetine HCL [Cymbalta] 30 mg PO DAILY 03/12/20 07/07/21 History metFORMIN HCL [Glucophage] 1,000 mg PO BID 03/12/20 07/07/21 History Atorvastatin [Lipitor] 20 mg PO DAILY 01/10/21 07/07/21 History Pantoprazole Sodium 40 mg PO DAILY 01/10/21 07/07/21 History hydrOXYzine HCL [Atarax] 25 - 50 mg PO HS PRN 01/10/21 07/07/21 History Magnesium Oxide 400 mg PO AC-BID #60 tablet 01/13/21 07/07/21 Rx Aspirin EC [Ecotrin Low Dose] 81 mg PO DAILY 06/05/21 07/07/21 History Furosemide [Lasix] 40 mg PO DAILY tab 06/08/21 07/07/21 Rx Gabapentin [Neurontin] 100 mg PO DAILY #3 cap 06/08/21 07/07/21 Rx Gabapentin [Neurontin] 200 mg PO HS #3 cap 06/08/21 07/07/21 Rx HYDROcodone/APAP 10-325MG [[place] 1 tab PO Q6H PRN #6 tab 06/08/21 07/07/21 Rx 10-325] Insuln Asp Prt/Insulin Aspart 10 unit SQ AC-SUPPER ml 06/08/21 07/07/21 Rx [NovoLOG MIX 70-30 VIAL] Insuln Asp Prt/Insulin Aspart 15 unit SQ AC-BRKFST ml 06/08/21 07/07/21 Rx [NovoLOG MIX 70-30 VIAL] Nystatin 100,000Unit/gm Cream 1 applic TOPICAL BID gm 06/08/21 07/07/21 Rx [Mycostatin Cream] Spironolactone [Aldactone] 25 mg PO DAILY #0 tab 06/08/21 07/07/21 Rx Metoprolol Succinate (ER) [Toprol 50 mg PO DAILY #30 tablet 06/11/21 07/07/21 Rx XL] lisinopriL [Zestril] 5 mg PO DAILY 07/07/21 07/07/21 History Allergies Allergy/AdvReac Type Severity Reaction Status Date / Time pregabalin [From Lyrica] AdvReac Swelling Verified 07/07/21 20:51 trazodone AdvReac Unknown Verified 07/07/21 20:51 Physical Exam Vitals: Vital Signs Temp Pulse Resp BP BP Pulse Ox 07/10/21 08:00 98.2 F 83 18 120/76 97 07/10/21 04:00 98.7 F 82 18 108/62 95 07/10/21 02:00 74 18 07/10/21 00:00 98.6 F 74 18 96/62 93 L 07/09/21 20:00 98.4 F 74 18 95/60 95 07/09/21 16:00 73 16 122/70 108/60 96 Intake and Output 07/09/21 07/10/21 07/10/21 22:59 06:59 14:59 Intake Total 240 Output Total 300 300 Balance 240 -300 -300 Intake: Oral 240 Output: Urine 300 300 Other: Voiding Method Bedside Commode Bedside Commode Bedside Commode Weight 54.3 kg GENERAL EXAM: Alert, 61-year-old female, appears older than stated age, on 2 L nasal cannula, comfortable in no apparent distress. HEAD: Normocephalic. EYES: Normal reaction of pupils, equal size. NOSE: Clear with pink turbinates. THROAT: No erythema or exudates. Poor dental hygiene. NECK: No masses, no JVD. CHEST: No chest wall deformity. LUNGS: Equal air entry with eczema posterior bases, diminished. CVS: S1 and S2 normal with no audible murmur, regular rhythm. ABDOMEN: No hepatosplenomegaly, normal bowel sounds, no guarding or rigidity. SPINE: No scoliosis or deformity SKIN: No rashes CENTRAL NERVOUS SYSTEM: No focal deficits, tone is normal in all 4 extremities. EXTREMITIES: There is no peripheral edema. No clubbing, no cyanosis. Peripheral pulses are intact. Results - Laboratory Findings CBC and BMP: 07/10/21 07:33 07/10/21 07:33 PT/INR, D-dimer PT 11.0 sec (9.0-12.0) 07/09/21 15:50 INR 1.0 (<1.2) 07/09/21 15:50 D-Dimer 1.68 mg/L FEU (<0.60) H 07/07/21 20:50 Abnormal lab findings: Abnormal Labs 07/07/21 07/07/21 07/07/21 20:50 20:50 20:50 RBC Hgb Hct RDW 15.8 H APTT D-Dimer 1.68 H Sodium 135 L Chloride Carbon Dioxide BUN Creatinine 0.35 L Glucose 420 H POC Glucose (mg/dL) Hemoglobin A1c Calcium AST Alkaline Phosphatase 139 H Troponin I Total Protein Albumin HDL Cholesterol 07/07/21 07/08/21 07/08/21 20:50 00:09 01:56 RBC Hgb Hct RDW APTT D-Dimer Sodium Chloride Carbon Dioxide BUN Creatinine Glucose POC Glucose (mg/dL) 362 H Hemoglobin A1c Calcium AST Alkaline Phosphatase Troponin I 0.072 H* 0.078 H* Total Protein Albumin HDL Cholesterol 07/08/21 07/08/21 07/08/21 02:02 08:07 08:37 RBC Hgb Hct RDW 16.0 H APTT D-Dimer Sodium Chloride Carbon Dioxide BUN Creatinine Glucose POC Glucose (mg/dL) 306 H Hemoglobin A1c Calcium AST Alkaline Phosphatase Troponin I 0.090 H* Total Protein Albumin HDL Cholesterol 07/08/21 07/08/21 07/08/21 08:37 11:36 15:52 RBC Hgb Hct RDW APTT 31.3 H D-Dimer Sodium 134 L Chloride 97 L Carbon Dioxide 32 H BUN Creatinine 0.36 L Glucose 312 H POC Glucose (mg/dL) 101 H Hemoglobin A1c Calcium 8.1 L AST Alkaline Phosphatase Troponin I Total Protein Albumin HDL Cholesterol 07/08/21 07/08/21 07/08/21 16:22 22:31 22:41 RBC Hgb Hct RDW APTT 33.3 H D-Dimer Sodium Chloride Carbon Dioxide BUN Creatinine Glucose POC Glucose (mg/dL) 143 H 72 L Hemoglobin A1c Calcium AST Alkaline Phosphatase Troponin I Total Protein Albumin HDL Cholesterol 07/08/21 07/08/21 07/09/21 22:42 23:05 06:12 RBC Hgb Hct RDW APTT D-Dimer Sodium Chloride Carbon Dioxide BUN Creatinine Glucose POC Glucose (mg/dL) 52 L 64 L 167 H Hemoglobin A1c Calcium AST Alkaline Phosphatase Troponin I Total Protein Albumin HDL Cholesterol 07/09/21 07/09/21 07/09/21 07:20 07:20 07:20 RBC Hgb 11.3 L Hct RDW APTT 44.9 H D-Dimer Sodium 134 L Chloride 97 L Carbon Dioxide 32 H BUN Creatinine 0.46 L Glucose 170 H POC Glucose (mg/dL) Hemoglobin A1c Calcium 8.1 L AST Alkaline Phosphatase Troponin I Total Protein Albumin HDL Cholesterol 07/09/21 07/09/21 07/09/21 12:07 15:50 15:50 RBC Hgb Hct RDW APTT D-Dimer Sodium Chloride Carbon Dioxide BUN Creatinine Glucose POC Glucose (mg/dL) 165 H Hemoglobin A1c 10.2 H Calcium AST Alkaline Phosphatase Troponin I Total Protein Albumin HDL Cholesterol 39.40 L 07/09/21 07/09/21 07/10/21 16:33 20:35 06:17 RBC Hgb Hct RDW APTT D-Dimer Sodium Chloride Carbon Dioxide BUN Creatinine Glucose POC Glucose (mg/dL) 196 H 182 H 124 H Hemoglobin A1c Calcium AST Alkaline Phosphatase Troponin I Total Protein Albumin HDL Cholesterol 07/10/21 07/10/21 07/10/21 07:33 07:33 12:13 RBC 3.75 L Hgb 10.9 L Hct 33.1 L RDW 15.6 H APTT D-Dimer Sodium Chloride Carbon Dioxide 37 H BUN 18 H Creatinine 0.51 L Glucose 132 H POC Glucose (mg/dL) 214 H Hemoglobin A1c Calcium AST 68 H Alkaline Phosphatase 150 H Troponin I Total Protein 6.1 L Albumin 2.7 L HDL Cholesterol - Diagnostic Findings Chest x-ray: image reviewed CT scan - chest: image reviewed Assessment and Plan Assessment: 1 Acute non-ST segment elevation myocardial infarction and a patient found to have severe triple-vessel disease 2 Acute hypoxemic respiratory failure secondary to an acute exacerbation of systolic congestive heart failure 3 Chronic and ongoing tobacco dependence of greater than 40 years, FEV1 value of 48% of predicted 4 Chronic obstructive pulmonary disease, Gold stage III, not on inhalers or oxygen in the outpatient setting 5 Moderate to severely impaired left ventricular systolic function with ejection fraction 30-35% 6 Diabetes mellitus 7 Hyperlipidemia 8 Hypertension 9 Poor overall functional performance based on the above-mentioned multiple comorbidities Plan: The patient was seen and evaluated FEV1 value of 48% of predicted The patient is considered high risk for surgical intervention though not complete contraindication Add Symbicort, DuoNeb inhalations Educated regarding the use the incentive spirometer Educated regarding the importance of complete smoking cessation We will continue to follow and make further recommendations based on her clinical status I, the cosigning physician, performed a history & physical examination of the patient. Lungs sounds with crackles in the bilateral bases diminished. Maintaining good O2 saturations in the 90s on 2 L/m per nasal cannula. I discussed the assessment and plan of care with my nurse practitioner, Raegan Olivas. I attest to the above consultation as dictated by her. Time with Patient: Greater than 30
[2021-07-10 13:46] LABS: Appearance,Urine Clear (Clear); Bilirubin,Urine Negative (Negative); Blood,Urine Negative (Negative); Color,Urine Light Yellow; Glucose,Urine (UA) Negative (Negative); Hyaline Casts,Urine 10 /lpf (0-2); Ketones,Urine Negative (Negative); Leukocyte Esterase,Urine Small (Negative); Mucus,Urine Rare /hpf; Nitrite,Urine Negative (Negative); Protein,Urine Negative (Negative); RBC,Urine <1 /hpf (0-5); Specific Gravity,Urine 1.007 (1.001-1.035); Squamous Epithelial Cell,Urine 3 /hpf (0-4); Urobilinogen,Urine <2.0 mg/dL (<2.0); WBC,Urine 1 /hpf (0-5)
[2021-07-10] MEDS ORDERED: SODIUM FERRIC GLUCONAT-SUCROSE 125 MG in SODIUM CHLORIDE 0.9% 100 ML IVPB ONE (15:00)
[2021-07-10] MEDS: IPRATROPIUM-ALBUTEROL 3 ML NEB INHALATION SCH ×2 (15:27→21:46)
--- NOTE | 2021-07-10 15:47 | P.PN ---
Subjective Progress Note Date: 07/10/21 Principal diagnosis: Multivessel coronary artery disease. Past medical history significant for hypertension, hyperlipidemia, insulin-dependent diabetes mellitus, osteoarthritis, insomnia, degenerative disc disease, pneumonia, colitis C. difficile, depression, fibromyalgia, chronic pain syndrome, current ongoing tobacco abuse and recent accidental overdose according to the patient. The patient was seen in follow-up today 07/10/2021 at her bedside on the cardiac stepdown unit. She is awake, alert and oriented 3 and is in no acute apparent distress. Currently she denies any complaints of shortness of breath or chest pain or chest pressure. Her preoperative testing is in progress and she underwent a bedside FEV1 this morning which showed a predicted volume of 48% with 1.17 L. A carotid Doppler was completed yesterday 07/09/2021 which demonstrated no significant stenosis seen. She remains on 2 L nasal cannula with oxygen saturation 97%. Remote telemetry showing normal sinus rhythm heart rate 84 BPM. She is nonambulatory at this time due to her no weightbearing restrictions to her left foot. A 5 m walk test will not be completed due to her weightbearing restrictions. Laboratory results this morning show a WBC count 6.3, hemoglobin 10.9, hematocrit 33.1, platelets 265, sodium 137, potassium 4.7, BUN 18, creatinine 0.51, glucose 132 and her troponin is 0.032. She has been afebrile the last 24 hours. Objective - Vital Signs Vital signs: Vital Signs Temp 98.2 F 07/10/21 08:00 Pulse 83 07/10/21 08:00 Resp 18 07/10/21 08:00 BP 120/76 07/10/21 08:00 Pulse Ox 97 07/10/21 08:00 Intake & Output 07/09/21 07/10/21 07/10/21 18:59 06:59 18:59 Intake Total 580 Output Total 300 300 Balance 580 -300 -300 Weight 47.8 kg 54.3 kg Intake: IV 100 Oral 480 Output: Urine 300 300 Other: Voiding Method Bedside Commode Bedside Commode # Voids 1 - Exam CONSTITUTIONAL: Sitting up in bed on the cardiac stepdown unit, appears comfortable, cooperative, no apparent acute distress. HEENT: Neck is supple, no JVD, no lymphadenopathy. Right IJ Cordis and [place]- Nilsa catheter in place and functioning. RESPIRATORY: Lungs sounds essentially clear throughout, few scattered crackles and diminished to his bilateral bases. Respirations are symmetrical and nonlabored. Currently on 2 L nasal cannula with oxygen saturations 95%. CARDIOVASCULAR: Regular rhythm and rate. S1 and S2 present, negative for S3, gallop or murmur. Knee-high sequential compression device in place to her right lower extremity. GASTROINTESTINAL: Abdomen soft, nontender, nondistended. Active bowel sounds present 4 quadrants. Tolerating diet. Passing flatus. No guarding or rigidity. GENITOURINARY: Continues to void. 300 mL urine output in the last 8 hours INTEGUMENTARY: Skin is warm and dry with no evidence of clubbing or cyanosis. Cast is clean, dry and in place to her left lower extremity. NEUROLOGIC: No focal deficits. MUSKULOSKELETAL: Able to move all extremities, strength equal bilaterally. Cast and placed to her left lower extremity. PSYCHIATRIC: Alert and oriented to person place and time, appropriate affect, intact judgment and insight. - Allied health notes Allied health notes reviewed: nursing - Labs CBC & Chem 7: 07/10/21 07:33 07/10/21 07:33 Labs: Abnormal Lab Results - Last 24 Hours (Table) 07/09/21 07/09/21 07/09/21 Range/Units 12:07 15:50 15:50 RBC (3.80-5.40) m/uL Hgb (11.4-16.0) gm/dL Hct (34.0-46.0) % RDW (11.5-15.5) % Carbon Dioxide (22-30) mmol/L BUN (7-17) mg/dL Creatinine (0.52-1.04) mg/dL Glucose (74-99) mg/dL POC Glucose (mg/dL) 165 H (75-99) mg/dL Hemoglobin A1c 10.2 H (4.0-6.0) % AST (14-36) U/L Alkaline Phosphatase (38-126) U/L Total Protein (6.3-8.2) g/dL Albumin (3.5-5.0) g/dL HDL Cholesterol 39.40 L (40.00-60.00) mg/dL 07/09/21 07/09/21 07/10/21 Range/Units 16:33 20:35 06:17 RBC (3.80-5.40) m/uL Hgb (11.4-16.0) gm/dL Hct (34.0-46.0) % RDW (11.5-15.5) % Carbon Dioxide (22-30) mmol/L BUN (7-17) mg/dL Creatinine (0.52-1.04) mg/dL Glucose (74-99) mg/dL POC Glucose (mg/dL) 196 H 182 H 124 H (75-99) mg/dL Hemoglobin A1c (4.0-6.0) % AST (14-36) U/L Alkaline Phosphatase (38-126) U/L Total Protein (6.3-8.2) g/dL Albumin (3.5-5.0) g/dL HDL Cholesterol (40.00-60.00) mg/dL 07/10/21 07/10/21 Range/Units 07:33 07:33 RBC 3.75 L (3.80-5.40) m/uL Hgb 10.9 L (11.4-16.0) gm/dL Hct 33.1 L (34.0-46.0) % RDW 15.6 H (11.5-15.5) % Carbon Dioxide 37 H (22-30) mmol/L BUN 18 H (7-17) mg/dL Creatinine 0.51 L (0.52-1.04) mg/dL Glucose 132 H (74-99) mg/dL POC Glucose (mg/dL) (75-99) mg/dL Hemoglobin A1c (4.0-6.0) % AST 68 H (14-36) U/L Alkaline Phosphatase 150 H (38-126) U/L Total Protein 6.1 L (6.3-8.2) g/dL Albumin 2.7 L (3.5-5.0) g/dL HDL Cholesterol (40.00-60.00) mg/dL Microbiology - Last 24 Hours (Table) 07/08/21 02:02 Blood Culture - Preliminary Blood No Growth after 48 hours 07/09/21 16:40 Nasal Screen MRSA/MSSA - Preliminary Nasal Swab - Imaging and Cardiology Venous US: report reviewed Carotid duplex study results reviewed. Bedside FEV1 results reviewed. Assessment and Plan Assessment: 1. Multivessel coronary artery disease 2. Non-ST elevated myocardial infarction this admission, elevated troponins 3. Bilateral pneumonia by chest x-ray and CT scan of her chest 4. Cardiomyopathy with an ejection fraction of 30-35% 5. Status post fall from standing 6. Multiple fractures to her left foot, per the patient 7. Small generalized pericardial effusion per transthoracic 2-D echocardiogram 8. History of hypertension 9. History of hyperlipidemia 10. Insulin-dependent diabetes mellitus, uncontrolled with a admission blood sugar of 420 11. Bilateral pleural effusions per chest x-ray and per computed tomography scan of her chest 12. Chronic ongoing tobacco abuse 13. Osteoarthritis 14. Fibromyalgia 15. History of depression Plan: 1. A 5 m walk test will not be completed with the patient as she is nonambulatory and cannot weight-bear to her left foot. 2. We will also send a proBNP level now. 3. Consult pulmonary/critical care medicine for review of her pulmonary status as her FEV1 was 48 percent of predicted value with 1.17 L. 4. Continue to optimize medical management with aspirin, statin and beta bl ocker. 5. Medical management and other comorbidities primary care service. 6. Encourage use of her incentive spirometry 10 times every hour while awake. 7. The importance of risk modification including smoking cessation was discussed with the patient. 8. Dr. Lin met with the patient, with the patient's sister on the phone, discussed treatment options including myocardial revascularization surgery. Risks and benefits of myocardial revascularization surgery were discussed including the STS risk score and knowing and understanding these risks wished to proceed with surgery which will be scheduled for , 07/12/2021 to be performed by Dr. Patrice Olvera. 9. We will send an iron profile and a ferritin level now as her hemoglobin is 10.9. Ferrlecit 125 mg IV piggyback 1 now after her labs have been drawn. 10. More recommendations to follow based on patient's clinical course. Time with Patient: Greater than 30
[2021-07-10] MEDS ORDERED: MD COMMUNICATION TO PHARMACY 1 EACH MISC PO ONE ×5 (15:56→16:10)
[2021-07-10 16:45] LABS: Glucose,Whole Blood 232 mg/dL (75-99)
[2021-07-10] MEDS: HEPARIN SOD,PORK IN 0.45% NACL 25,000 UNIT in 0.45% NACL 1 250ML.BAG IV SCH (17:13)
[2021-07-10 20:09] LABS: Glucose,Whole Blood 192 mg/dL (75-99)
[2021-07-10] MEDS: SYMBICORT 160-4.5 MCG INHALER INHALATION SCH (21:46)
[2021-07-11] MEDS ORDERED: MORPHINE SULFATE 4 MG/ML SYRINGE ONE (00:25)
[2021-07-11 02:56] LABS: % Iron Saturation 16.37 (12.00-45.00); Ferritin 82.6 ng/mL (10.0-291.0)
[2021-07-11] MEDS: SODIUM CHLORIDE 0.9% 1,000 ML in EMPTY BAG 1 BAG IV SCH (05:39)
[2021-07-11] MEDS: MORPHINE SULFATE 4 MG/ML SYRINGE IV PRN ×5 (05:39→22:29)
[2021-07-11 06:04] LABS: Glucose,Whole Blood 146 mg/dL (75-99)
[2021-07-11] MEDS: MAGNESIUM OXIDE 400 MG TAB PO SCH ×2 (07:04→18:24)
[2021-07-11] MEDS: INSULIN ASPART (NovoLOG) 100 UNIT/ML VIAL SQ SCH ×4 (07:04→21:24)
[2021-07-11] MEDS: PANTOPRAZOLE 40 MG TABLET PO SCH (07:04)
[2021-07-11] MEDS: INSULN ASP PRT/INSULIN ASPART 100 UNIT/ML 10 ML VIAL SQ SCH ×2 (07:04→17:14)
[2021-07-11] MEDS: GABAPENTIN 100 MG CAP PO SCH ×2 (08:01→21:22)
[2021-07-11] MEDS: ATORVASTATIN 20 MG TAB PO SCH (08:01)
[2021-07-11] MEDS: METOPROLOL SUCCINATE (ER) 50 MG TAB.ER.24H PO SCH (08:01)
[2021-07-11] MEDS: DULoxetine HCL 30 MG CAPSULE.DR PO SCH (08:01)
[2021-07-11] MEDS: SPIRONOLACTONE 25 MG TAB PO SCH (08:01)
[2021-07-11] MEDS: ASPIRIN 81 MG PO SCH (08:02)
[2021-07-11] MEDS: FUROSEMIDE 10 MG/ML 2 ML VIAL IV SCH ×2 (08:02→21:21)
[2021-07-11] MEDS: MUPIROCIN 2% OINT 22 GM TUBE NASAL SCH ×2 (08:02→21:22)
[2021-07-11 08:06] LABS: HCT 34.3 % (34.0-46.0); HGB 10.7 gm/dL (11.4-16.0); Hypochromasia Moderate; MCHC 31.3 g/dL (31.0-37.0); MCV 92.9 fL (80.0-100.0); Mean Platelet Volume 8.8; Platelet Count 281 k/uL (150-450); RBC 3.69 m/uL (3.80-5.40); RDW 15.4 % (11.5-15.5); WBC 6.2 k/uL (3.8-10.6)
--- NOTE | 2021-07-11 08:21 | XR ---
EXAMINATION TYPE: XR chest 1V portable DATE OF EXAM: 07/11/2021 COMPARISON: Chest x-ray and chest CT dated 07/07/2021 HISTORY: Congestive heart failure TECHNIQUE: Single frontal view of the chest is obtained. FINDINGS: Patchy densities are present within the lungs bilaterally. Heart is stable. There is no ev ident pneumothorax. There is blunting the costophrenic angles. There are overlying artifacts. Interst itium appears prominently. Surgical clips are present in the right upper quadrant. Aorta is dense. IMPRESSION: Correlate for congestive heart failure, pneumonia not excluded. Bilateral pleural effusi ons. There is underlying emphysema.
[2021-07-11] MEDS: SYMBICORT 160-4.5 MCG INHALER INHALATION SCH ×2 (08:28→20:56)
[2021-07-11] MEDS: IPRATROPIUM-ALBUTEROL 3 ML NEB INHALATION SCH ×4 (08:28→20:56)
--- NOTE | 2021-07-11 08:43 | P.ARTDOP ---
Arterial Doppler Bilateral radial artery study: Reason for study: Preop CABG Date of study: 07/10/2021 Findings: On imaging the right radial is 2.8 x 2.5 mm distally, 1.9 x 1.9 mm mid, and 3.1 x 2.4 mm proximally. The left radial measures 1.7 x 1.9 mm distally, 1.7 x 1.3 mm mid, and 2.7 x 2.0 mm proximally. Impression: These radials do not meet the criteria of 2 mm or greater consistently and would not therefore meet criterion for use. Therefore segmental pressures and digital plethysmography readings are not done.
[2021-07-11 08:44] LABS: African American GFR (CKD) >90 (>60 ml/min/1.73 sqM); Anion Gap 3 mmol/L; Blood Urea Nitrogen 19 mg/dL (7-17); Calcium 8.3 mg/dL (8.4-10.2); Carbon Dioxide 36 mmol/L (22-30); Chloride 99 mmol/L (98-107); Glucose 157 mg/dL (74-99); Non-African American GFR(CKD) >90 (>60 ml/min/1.73 sqM); Potassium 3.7 mmol/L (3.5-5.1); Sodium 138 mmol/L (137-145)
--- NOTE | 2021-07-11 08:45 | P.ARTDOP ---
Arterial Doppler LOWER EXTREMITY ARTERIAL DOPPLER: DATE OF SERVICE: 07/09/2021 Reason for study: Preop CABG. Doppler waveforms: Multiphasic throughout on the right. Multiphasic but blunted at the left femoral and popliteal. Digital waveforms bilaterally are excellent.. Pulse volume recording: []. Pressure gradients: None measured. Ankle-brachial indices: Greater than 1 on the right. Due to a cast the left was not measured.. Toe brachial indices: 0.94 on the right, 0.72 on the left Impression: Limited study on the left due to a cast. The right is normal. No left, with TBI of 0.7 to suggests a normal study. Perfusion certainly adequate for healing..
--- NOTE | 2021-07-11 08:47 | P.VSCSTY ---
Greater Saphenous Vein Mapping This is bilateral lower extremity greater saphenous vein mapping. Date of service: 07/09/2021 Vein quality and ultrasound appearance: We see no intraluminal thrombus or obvious wall changes. The lower leg on the left was not imaged due to a cast.. Vein size groin right : 5.2 x 3.7 groin left: 6.6 x 5.8 High thigh right: 3.4 x 3.3 high thigh left: 5.4 x 4.0 Mid thigh right: 4.1 x 2.7 mid thigh left: 3.5 x 3.0 Above-knee right: 3.0 x 1.7 above- knee left: 3.0 x 3.3 Below knee right: 3.6 x 2.0 below-knee left: [] Mid calf right: 2.3 x 1.7 mid calf left: [] Ankle right: 2.3 x 1.5 ankle left: [] Impression: The left thigh is usable. The right greater saphenous vein is usable throughout the thigh and at the knee level and probably just below the knee. About mid calf it becomes somewhat small for use as conduit..
--- NOTE | 2021-07-11 09:10 | P.PN ---
Subjective Progress Note Date: 07/11/21 Principal diagnosis: Multivessel coronary artery disease, NSTEMI this admission, acute on chronic systolic heart failure, bilateral pneumonia with pleural effusions this admission. Previous medical history of cardiomopathy, hypertension, hyperlipidemia, uncontrolled insulin-dependent diabetes mellitus with hyperglycemia, osteoarthritis, insomnia, degenerative disc disease, pneumonia, C. difficile, depression, fibromyalgia, chronic pain syndrome, current ongoing tobacco abuse, COPD, recent fall from standing with broken foot with non-weight bearing status, recent accidental overdose according to the patient. The patient was seen and examined this morning sitting up in bed in no acute distress. She denies any chest pain or shortness of breath. Open heart surgery was discussed with the patient yesterday as well as STS risk score, all questions were answered and our plan is for CABG tomorrow. The patient does express wishes to return to [facility] upon discharge from hospital. Objective - Vital Signs Vital signs: Vital Signs Temp 98 F 07/11/21 08:00 Pulse 88 07/11/21 08:29 Resp 18 07/11/21 08:29 BP 122/62 07/11/21 08:00 Pulse Ox 91 L 07/11/21 08:29 Intake & Output 07/10/21 07/11/21 07/11/21 18:59 06:59 18:59 Intake Total 240 Output Total 450 800 Balance -450 -560 Weight 52 kg Intake: Oral 240 Output: Urine 450 800 Other: Voiding Method Bedside Commode Bedside Commode # Voids 1 - Exam CONSTITUTIONAL: Sitting up in bed on the cardiac stepdown unit, appears comfortable, cooperative, no apparent acute distress. RESPIRATORY: Lungs sounds diminished bilaterally with coarse breath sounds in the bases. Respirations are even, nonlabored. Currently on 3 L nasal cannula with oxygen saturations 92%. Able to achieve 1250 mL on incentive spirometry CARDIOVASCULAR: S1, S2 present. Regular rate, rhythm, sinus rhythm on telemetry. Palpable peripheral pulses bilaterally. No edema present. GASTROINTESTINAL: Abdomen soft, nontender, nondistended. Active bowel sounds present 4 quadrants. Tolerating diet. GENITOURINARY: Continues to void. INTEGUMENTARY: Skin is warm and dry, cast is clean, dry and in place to left lower extremity. NEUROLOGIC: Cranial nerves II-XII intact MUSKULOSKELETAL: Able to move all extremities, strength equal bilaterally. Non-weight bearing to left lower extremity PSYCHIATRIC: Alert and oriented to person place and time, appropriate affect, intact judgment and insight. - Allied health notes Allied health notes reviewed: nursing - Labs CBC & Chem 7: 07/11/21 07:54 07/10/21 07:33 Labs: Abnormal Lab Results - Last 24 Hours (Table) 07/10/21 07/10/21 07/10/21 Range/Units 10:58 12:13 16:43 RBC (3.80-5.40) m/uL Hgb (11.4-16.0) gm/dL POC Glucose (mg/dL) 214 H 232 H (75-99) mg/dL Ur Leukocyte Esterase Small H (Negative) Hyaline Casts 10 H (0-2) /lpf Urine Mucus Rare H (None) /hpf 07/10/21 07/11/21 07/11/21 Range/Units 20:08 06:02 07:54 RBC 3.69 L (3.80-5.40) m/uL Hgb 10.7 L (11.4-16.0) gm/dL POC Glucose (mg/dL) 192 H 146 H (75-99) mg/dL Ur Leukocyte Esterase (Negative) Hyaline Casts (0-2) /lpf Urine Mucus (None) /hpf Microbiology - Last 24 Hours (Table) 07/08/21 02:02 Blood Culture - Preliminary Blood No Growth after 72 hours 07/09/21 16:40 Nasal Screen MRSA/MSSA - Final Nasal Swab - Imaging and Cardiology Chest x-ray: report reviewed, image reviewed all preoperative testing reviewed Assessment and Plan Assessment: 1. Multivessel coronary artery disease, NSTEMI this admission 2. Acute on chronic systolic heart failure, EF 30-35% 3. Bilateral pneumonia with pleural effusions this admission 4. History of cardiomopathy 5. Hypertension 6. Hyperlipidemia, treated, cholesterol 128, LDL 60 7. Uncontrolled insulin-dependent diabetes mellitus with hyperglycemia, hemoglobin AIc 10.2% 8. Current ongoing tobacco abuse 9. Severe COPD with preoperative FEV1 48% of predicted 10. Recent fall from standing with broken foot with non-weight bearing status 11. History of C. difficile 12. Depression 13. Fibromyalgia, chronic pain syndrome, osteoarthritis 14. Recent accidental overdose according to the patient. Plan: 1. Continue ASA, statin, beta aixa therapy 2. Wean oxygen as tolerated. Encourage incentive spirometry use. Bronchodilators per pulmonology 3. Smoking cessation encouraged 4. Our plan is for surgical myocardial revascularization with left internal mammary artery and endoscopic vein harvest, and left atrial appendage ligation tomorrow 07/12/[address] Olvera 5. Medical management of other comorbidities primary care service. 6. More recommendations to follow Time with Patient: Greater than 30
--- NOTE | 2021-07-11 10:51 | P.PN ---
Subjective Progress Note Date: 07/11/21 HISTORY OF PRESENT ILLNESS: This is a 61-year-old female who follows in the office with Dr. Lundy. Patient examined this morning at the bedside. Patient presented to the hospital with chest pain and shortness of breath after sustaining a fall at home. Patient reports she has some broken bones in her left foot and states she is going to need surgery in the future but is unsure when this is going to happen. Patient denies shortness of breath. The patient does report some chest tightness this morning. She remains on IV heparin. Blood pressure 119/74. Telemetry reveals sinus mechanism with a heart rate in the 80s. She is on 2 L nasal cannula with oxygen saturations greater than 92%. She is afebrile. Echocardiogram completed revealed ejection fraction 30-35%, LV hypokinesis, mild mitral regurgitation, mild tricuspid regurgitation, mild pulmonary hypertension, small generalized pericardial effusion, and large pleural effusion. 07/11/2021 Patient is status post cardiac catheterization revealing severe triple vessel disease. She has been evaluated by cardiothoracic surgery is tentatively planned for CABG tomorrow. Patient examined this morning the bedside. She denies chest pain or pressure. She denies shortness of breath. Patient's lisinopril was discontinued in lieu of surgery tomorrow. Her blood pressure remains stable at 122/62. Telemetry reveals sinus mechanism. PHYSICAL EXAM: VITAL SIGNS: Reviewed. GENERAL: Well-developed in no acute distress. NECK: Supple. No JVD or thyromegaly LUNGS: Respirations even and unlabored. Lungs diminished to auscultation bilaterally. HEART: Regular rate and rhythm. S1 and S2 heard. EXTREMITIES: Normal range of motion. No clubbing or cyanosis. Peripheral pulses intact. No lower extremity edema ASSESSMENT: S/P fall Bilateral pneumonia, per CXR Non-STEMI, status post cardiac catheterization revealing severe triple vessel disease Shortness of breath Abnormal stress test in June 2021, revealing previous OH, with no acute reversible ischemia Ischemic cardiomyopathy with EF 30-35% Broken bones in left foot, per patient Small generalized pericardial effusion Large pleural effusion PLAN: Continue current cardiac medications Lisinopril discontinued yesterday in lieu of surgery tomorrow. Patients blood pressure remains stable since discontinuation. Continue to monitor blood pressures. Patient scheduled for CABG tomorrow Further recommendations pending patient course Nurse practitioner note has been reviewed by physician. Signing provider agrees with the documented findings, assessment, and plan of care. Objective - Vital Signs Vital signs: Vital Signs Temp 98 F 07/11/21 08:00 Pulse 84 07/11/21 08:39 Resp 18 07/11/21 08:39 BP 122/62 07/11/21 08:00 Pulse Ox 91 L 07/11/21 08:29 Intake & Output 07/10/21 07/11/21 07/11/21 18:59 06:59 18:59 Intake Total 240 Output Total 450 800 Balance -450 -560 Weight 52 kg Intake: Oral 240 Output: Urine 450 800 Other: Voiding Method Bedside Commode Bedside Commode # Voids 1 - Labs CBC & Chem 7: 07/11/21 07:54 07/11/21 07:54 Labs: Abnormal Lab Results - Last 24 Hours (Table) 07/10/21 07/10/21 07/10/21 Range/Units 10:58 12:13 16:43 RBC (3.80-5.40) m/uL Hgb (11.4-16.0) gm/dL Carbon Dioxide (22-30) mmol/L BUN (7-17) mg/dL Creatinine (0.52-1.04) mg/dL Glucose (74-99) mg/dL POC Glucose (mg/dL) 214 H 232 H (75-99) mg/dL Calcium (8.4-10.2) mg/dL Ur Leukocyte Esterase Small H (Negative) Hyaline Casts 10 H (0-2) /lpf Urine Mucus Rare H (None) /hpf 07/10/21 07/11/21 07/11/21 Range/Units 20:08 06:02 07:54 RBC 3.69 L (3.80-5.40) m/uL Hgb 10.7 L (11.4-16.0) gm/dL Carbon Dioxide (22-30) mmol/L BUN (7-17) mg/dL Creatinine (0.52-1.04) mg/dL Glucose (74-99) mg/dL POC Glucose (mg/dL) 192 H 146 H (75-99) mg/dL Calcium (8.4-10.2) mg/dL Ur Leukocyte Esterase (Negative) Hyaline Casts (0-2) /lpf Urine Mucus (None) /hpf 07/11/21 Range/Units 07:54 RBC (3.80-5.40) m/uL Hgb (11.4-16.0) gm/dL Carbon Dioxide 36 H (22-30) mmol/L BUN 19 H (7-17) mg/dL Creatinine 0.42 L (0.52-1.04) mg/dL Glucose 157 H (74-99) mg/dL POC Glucose (mg/dL) (75-99) mg/dL Calcium 8.3 L (8.4-10.2) mg/dL Ur Leukocyte Esterase (Negative) Hyaline Casts (0-2) /lpf Urine Mucus (None) /hpf Microbiology - Last 24 Hours (Table) 07/08/21 02:02 Blood Culture - Preliminary Blood No Growth after 72 hours 07/09/21 16:40 Nasal Screen MRSA/MSSA - Final Nasal Swab
[2021-07-11 11:44] LABS: Glucose,Whole Blood 211 mg/dL (75-99)
[2021-07-11] MEDS: traMADol 50 MG TAB PO PRN ×2 (12:00→21:21)
[2021-07-11 16:46] LABS: Glucose,Whole Blood 215 mg/dL (75-99)
--- NOTE | 2021-07-11 18:52 | P.PN ---
Subjective Progress Note Date: 07/11/21 Principal diagnosis: Acute non-ST elevation [place] Status post cardiac catheterization revealing triple-vessel coronary artery disease Acute hypoxic respiratory failure Acute exacerbation systolic CHF Patient is a 61-year-old female came in the appearance of left-sided chest pain and also shortness of breath and patient the had a cast from her recent for for calcaneal fracture. Patient has EF of around 25-30% only on Aldactone at home it appears to be in a bit of heart failure with bilateral pleural effusion CT of the chest showed some infiltrate but no work program. Patient denied any cough. Patient had any fever chills. Patient is found to have mildly elevated troponin. Please refer to booky documentation for EKG reading. Patient was evaluated by cardiology and they're recommending daily catheterization today. 07/11/2021 Patient is seen and evaluated sitting up in bedside chair; denies any complaint of chest pain or shortness of breath but does report feeling anxious about scheduled surgery tomorrow Vital signs are reviewed and remained stable; blood pressure at 122/62 Patient is status post cardiac catheterization which revealed severe triple vessel coronary artery disease; cardiothoracic surgery on board and CABG is planned for tomorrow Patient has been taken off lisinopril given planned surgery tomorrow morning; remains stable on rest of current medications Objective - Vital Signs Vital signs: Vital Signs Temp 98.1 F 07/11/21 11:30 Pulse 80 07/11/21 11:30 Resp 17 07/11/21 11:30 BP 129/87 07/11/21 11:30 Pulse Ox 95 07/11/21 11:30 Intake & Output 07/10/21 07/11/21 07/11/21 18:59 06:59 18:59 Intake Total 240 Output Total 450 800 Balance -450 -560 Weight 52 kg Intake: Oral 240 Output: Urine 450 800 Other: Voiding Method Bedside Commode Bedside Commode # Voids 1 - Exam GENERAL: The patient is alert and oriented x3, not in any acute distress. Well developed, well nourished. HEENT: Pupils are round and equally reacting to light. EOMI. No scleral icterus. No conjunctival pallor. Normocephalic, atraumatic. No pharyngeal erythema. No thyromegaly. CARDIOVASCULAR: S1 and S2 present. No murmurs, rubs, or gallops. PULMONARY: Chest is clear to auscultation, no wheezing or crackles. ABDOMEN: Soft, nontender, nondistended, normoactive bowel sounds. No palpable organomegaly. MUSCULOSKELETAL: No joint swelling or deformity. EXTREMITIES: No cyanosis, clubbing, patient does have pedal edema patient has a cast in the left leg. NEUROLOGICAL: Gross neurological examination did not reveal any focal deficits. SKIN: No rashes. - Labs CBC & Chem 7: 07/11/21 07:54 07/11/21 07:54 Labs: Abnormal Lab Results - Last 24 Hours (Table) 07/10/21 07/10/21 07/10/21 Range/Units 10:58 12:13 16:43 RBC (3.80-5.40) m/uL Hgb (11.4-16.0) gm/dL Carbon Dioxide (22-30) mmol/L BUN (7-17) mg/dL Creatinine (0.52-1.04) mg/dL Glucose (74-99) mg/dL POC Glucose (mg/dL) 214 H 232 H (75-99) mg/dL Calcium (8.4-10.2) mg/dL Ur Leukocyte Esterase Small H (Negative) Hyaline Casts 10 H (0-2) /lpf Urine Mucus Rare H (None) /hpf 07/10/21 07/11/21 07/11/21 Range/Units 20:08 06:02 07:54 RBC 3.69 L (3.80-5.40) m/uL Hgb 10.7 L (11.4-16.0) gm/dL Carbon Dioxide (22-30) mmol/L BUN (7-17) mg/dL Creatinine (0.52-1.04) mg/dL Glucose (74-99) mg/dL POC Glucose (mg/dL) 192 H 146 H (75-99) mg/dL Calcium (8.4-10.2) mg/dL Ur Leukocyte Esterase (Negative) Hyaline Casts (0-2) /lpf Urine Mucus (None) /hpf 07/11/21 07/11/21 Range/Units 07:54 11:29 RBC (3.80-5.40) m/uL Hgb (11.4-16.0) gm/dL Carbon Dioxide 36 H (22-30) mmol/L BUN 19 H (7-17) mg/dL Creatinine 0.42 L (0.52-1.04) mg/dL Glucose 157 H (74-99) mg/dL POC Glucose (mg/dL) 211 H (75-99) mg/dL Calcium 8.3 L (8.4-10.2) mg/dL Ur Leukocyte Esterase (Negative) Hyaline Casts (0-2) /lpf Urine Mucus (None) /hpf Microbiology - Last 24 Hours (Table) 07/08/21 02:02 Blood Culture - Preliminary Blood No Growth after 72 hours 07/09/21 16:40 Nasal Screen MRSA/MSSA - Final Nasal Swab Assessment and Plan Assessment: Assessment and plan -Acute non-ST elevation myocardial infarction: Patient is status post cardiac catheterization triple-vessel disease cardiothoracic surgery evaluation -Acute hypoxic respiratory failure most probably secondary to congestive heart failure chronic systolic dysfunction with acute exacerbation patient was started on low-dose of Lasix patient blood pressure is borderline low. Patient is on lisinopril which will be continued as well along with Aldactone. Pneumonia ruled out for calcitonin is low. -Nicotine use: Counseling was provided -Type 2 diabetes mellitus -Hyperlipidemia 1 possible hypervolemic hyponatremia
[2021-07-11 20:17] LABS: Glucose,Whole Blood 142 mg/dL (75-99)
[2021-07-12] MEDS ORDERED: NITROGLYCERIN-D5W PMX 50 MG in DEXTROSE/WATER 1 250ML.BAG IV SCH ×2 (05:00→15:25)
[2021-07-12] MEDS ORDERED: METOPROLOL TARTRATE 12.5 MG TAB PO ONE (05:00)
[2021-07-12] MEDS ORDERED: ASPIRIN 325 MG TAB PO ONE (05:00)
[2021-07-12] MEDS ORDERED: MANNITOL 25% 12.5 GM/50 ML VIAL IV ONE ×2 (05:00→06:00)
[2021-07-12] MEDS ORDERED: ATORVASTATIN 10 MG TAB PO ONE (05:00)
[2021-07-12 05:46] LABS: Glucose,Whole Blood 177 mg/dL (75-99)
[2021-07-12] MEDS: MORPHINE SULFATE 4 MG/ML SYRINGE IV PRN (05:48)
[2021-07-12] MEDS ORDERED: ALBUMIN HUMAN 25% 50 ML in EMPTY BAG 1 BAG IVPB ONE (06:00)
[2021-07-12] MEDS ORDERED: NOREPINEPHRINE 4 MG in SODIUM CHLORIDE 0.9% 250 ML IV SCH ×2 (06:00→16:15)
[2021-07-12] MEDS ORDERED: HEPARIN SODIUM,PORCINE 5,000 UNIT in SODIUM CHLORIDE 0.9% 500 ML 500 ML IV ONE (06:00)
[2021-07-12] MEDS ORDERED: CLEVIDIPINE BUTYRATE 25 MG in EMPTY BAG 1 BAG IV SCH (06:00)
[2021-07-12] MEDS ORDERED: ALBUMIN HUMAN 5% 500 ML in EMPTY BAG 1 BAG IVPB ONE ×6 (06:00)
[2021-07-12] MEDS ORDERED: PROTAMINE SULFATE 250 MG in EMPTY BAG 1 BAG IV ONE (06:00)
[2021-07-12] MEDS ORDERED: ceFAZolin 1,000 MG in SODIUM CHLORIDE 0.9% IRRIGATIO 1,000 ML IRRIGATION ONE (06:00)
[2021-07-12] MEDS ORDERED: PHENYLEPHRINE 40 MG in SODIUM CHLORIDE 0.9% 250 ML IV ONE (06:00)
[2021-07-12] MEDS ORDERED: NITROGLYCERIN-D5W PMX 25 MG/250 ML BTL IV ONE (06:00)
[2021-07-12] MEDS ORDERED: MAGNESIUM SULFATE 16.24 MEQ in EMPTY SYRINGE 1 SYR IV ONE (06:00)
[2021-07-12] MEDS ORDERED: HEPARIN SODIUM 1,000 UN/ML (10ML VL) IV ONE (06:00)
[2021-07-12] MEDS ORDERED: PROTAMINE SULFATE 10 MG/ML 25 ML VIAL IV ONE ×2 (06:00→07:46)
[2021-07-12] MEDS ORDERED: CALCIUM CHLORIDE 100 MG/ML 10 ML SYRINGE IVP ONE (06:00)
[2021-07-12] MEDS ORDERED: ELECTROLYTE-A SOLUTION 1,000 ML with POTASSIUM CHLORIDE 40 MEQ, MAGNESIUM SULFATE 16 ME... IV SCH ×5 (06:00)
[2021-07-12] MEDS ORDERED: PHENYLEPHRINE 10 MG/ML VIAL IV ONE (06:00)
[2021-07-12] MEDS ORDERED: ELECTROLYTE-A SOLUTION 1,000 ML with POTASSIUM CHLORIDE 100 MEQ, MAGNESIUM SULFATE 16 M... IV SCH ×5 (06:00)
[2021-07-12] MEDS ORDERED: SODIUM BICARB 8.4% 50 ML SYR (1 MEQ/ML) IV ONE (06:00)
[2021-07-12] MEDS ORDERED: INSULIN REGULAR 100 UNIT in SODIUM CHLORIDE 0.9% 100 ML IV SCH ×2 (06:00→15:25)
[2021-07-12] MEDS ORDERED: PAPAVERINE 360 MG in SODIUM CHLORIDE 0.9% 90 ML IV ONE (06:00)
[2021-07-12] MEDS ORDERED: TRANEXAMIC ACID 2,000 MG in SODIUM CHLORIDE 0.9% 80 ML IV ONE (06:00)
[2021-07-12] MEDS ORDERED: CHLORHEXIDINE GLUCONATE 15 ML CUP MUCOUS MEM ONE (06:00)
[2021-07-12] MEDS ORDERED: LACTATED RINGERS 1,000 ML IV ONE (06:32)
[2021-07-12] MEDS ORDERED: HEPARIN SODIUM,PORCINE 10,000 UNIT/ML 1 ML VIAL ONE (07:46)
[2021-07-12] MEDS ORDERED: SODIUM CHLORIDE 0.9% 100 ML BAG ONE (07:46)
[2021-07-12] MEDS ORDERED: SODIUM CHLORIDE 0.9% IRRIG 1,000 ML BTL IRRIGATION ONE (07:46)
[2021-07-12] MEDS ORDERED: VECURONIUM 10 MG VIAL IV ONE (07:46)
[2021-07-12] MEDS ORDERED: TRANEXAMIC ACID 1,000 MG/10 ML VIAL ONE (07:46)
[2021-07-12] MEDS ORDERED: MIDAZOLAM 2 MG/2 ML VIAL ONE (07:46)
[2021-07-12] MEDS ORDERED: ELECTROLYTE-R (PH 7.4) 1,000 ML IV.SOLN IV ONE (07:46)
[2021-07-12] MEDS ORDERED: ceFAZolin 1,000 MG VIAL ONE (07:46)
[2021-07-12] MEDS ORDERED: INSULIN REGULAR 100 UNIT/ML VIAL (IV) ONE (07:46)
[2021-07-12] MEDS ORDERED: LIDOCAINE 2% SYG (PF) 100 MG/5 ML ONE (07:46)
[2021-07-12] MEDS ORDERED: CALCIUM CHLORIDE 100 MG/ML 10 ML SYRINGE ONE (07:46)
[2021-07-12] MEDS ORDERED: SODIUM CHLORIDE 0.9% 250 ML BAG ONE (07:46)
[2021-07-12] MEDS ORDERED: PROPOFOL 10 MG/ML 20 ML VIAL IV ONE (07:46)
[2021-07-12] MEDS ORDERED: ALBUMIN HUMAN 5% (12.5gm) 250 ML BOTTLE IVPB ONE (07:46)
[2021-07-12] MEDS ORDERED: MAGNESIUM SULFATE 4 MEQ/ML 10ML VIAL ONE (07:46)
[2021-07-12] MEDS ORDERED: fentaNYL (PF) 50 MCG/ML 50 ML VIAL ONE (07:46)
[2021-07-12] MEDS ORDERED: PHENYLEPHRINE-0.9% NACL SYG 1,000 MCG/10 ML SYRINGE ONE (07:46)
[2021-07-12] MEDS: IPRATROPIUM-ALBUTEROL 3 ML NEB INHALATION SCH ×4 (08:33→22:10)
[2021-07-12] MEDS: SYMBICORT 160-4.5 MCG INHALER INHALATION SCH ×2 (08:33→20:47)
[2021-07-12 09:05] LABS: HCT 31.9 % (34.0-46.0); HGB 10.1 gm/dL (11.4-16.0); Hypochromasia Moderate; MCH 29.2 pg (25.0-35.0); MCHC 31.5 g/dL (31.0-37.0); MCV 92.7 fL (80.0-100.0); Mean Platelet Volume 7.3; Platelet Count 272 k/uL (150-450); RBC 3.44 m/uL (3.80-5.40); WBC 6.2 k/uL (3.8-10.6)
[2021-07-12] MEDS ORDERED: LIDOCAINE 1% (10MG/ML) FOR IV START INTRADERMA PRN (15:02)
[2021-07-12] MEDS ORDERED: LACTATED RINGERS 1,000 ML IV SCH (15:02)
[2021-07-12] MEDS ORDERED: MIDAZOLAM 2 MG/2 ML VIAL IV PRN (15:02)
[2021-07-12] MEDS ORDERED: METOCLOPRAMIDE 5 MG/ML 2 ML VIAL IVP PRN (15:25)
[2021-07-12] MEDS ORDERED: DEXTROSE 5% IN WATER 100 ML with AMIODARONE 150 MG IV PRN (15:25)
[2021-07-12] MEDS ORDERED: IPRATROPIUM-ALBUTEROL 3 ML NEB INHALATION PRN (15:25)
[2021-07-12] MEDS ORDERED: Magnesium Replacement Protocol 1 EACH MISC MISCELLANE PRN (15:25)
[2021-07-12] MEDS ORDERED: ONDANSETRON 4 MG/2 ML VIAL IVP PRN (15:25)
[2021-07-12] MEDS ORDERED: CALCIUM GLUCONATE 2 GM in SODIUM CHLORIDE 0.9% 100 ML IVPB PRN (15:25)
[2021-07-12] MEDS ORDERED: BENZOCAINE/MENTHOL LOZENG 1 EACH LOZENGE MUCOUS MEM PRN (15:25)
[2021-07-12] MEDS ORDERED: DEXMEDETOMIDINE/0.9% NACL(PMX) 400 MCG in EMPTY BAG 1 BAG IV SCH (15:25)
[2021-07-12] MEDS ORDERED: Potassium Replacement Protocol 1 EACH MISC MISCELLANE PRN (15:25)
[2021-07-12] MEDS ORDERED: Phosphorus Replacement Protoco 1 EACH MISC MISCELLANE PRN (15:25)
[2021-07-12] MEDS ORDERED: MORPHINE SULFATE 2 MG/ML SYRINGE IVP PRN (15:25)
[2021-07-12] MEDS ORDERED: AMIODARONE 360 MG in DEXTROSE 5% IN WATER 200 ML IV PRN ×2 (15:25)
[2021-07-12] MEDS ORDERED: AMIODARONE 450 MG in DEXTROSE 5% IN WATER 250 ML IV PRN ×2 (15:25)
[2021-07-12] MEDS ORDERED: hydrALAZINE HCL 20 MG/ML 1 ML VIAL IVP PRN (15:25)
--- NOTE | 2021-07-12 15:49 | P.PN ---
Subjective Progress Note Date: 07/12/21 Principal diagnosis: Acute non-ST elevation [place] Status post cardiac catheterization revealing triple-vessel coronary artery disease Acute hypoxic respiratory failure Acute exacerbation systolic CHF Patient is a 61-year-old female came in the appearance of left-sided chest pain and also shortness of breath and patient the had a cast from her recent for for calcaneal fracture. Patient has EF of around 25-30% only on Aldactone at home it appears to be in a bit of heart failure with bilateral pleural effusion CT of the chest showed some infiltrate but no work program. Patient denied any cough. Patient had any fever chills. Patient is found to have mildly elevated troponin. Please refer to lye peel operator documentation for EKG reading. Patient was evaluated by cardiology and they're recommending daily catheterization today. 07/11/2021 Patient is seen and evaluated sitting up in bedside chair; denies any complaint of chest pain or shortness of breath but does report feeling anxious about scheduled surgery tomorrow Vital signs are reviewed and remained stable; blood pressure at 122/62 Patient is status post cardiac catheterization which revealed severe triple vessel coronary artery disease; cardiothoracic surgery on board and CABG is planned for tomorrow Patient has been taken off lisinopril given planned surgery tomorrow morning; remains stable on rest of current medications 07/12/2021 Patient is seen and evaluated; denies any complaint of chest pain or shortness of breath; feels anxious and overwhelmed for upcoming surgery this morning Vital signs reveal temperature 98.2, pulse 87, respiration 19 and blood pressure 128/67 with O2 saturation 92% on 2 L Labs revealed WBC 6.2, hemoglobin 10.1, platelet count of 272, blood glucoses ranging between 142-177 Patient is scheduled for OR for CABG Objective - Vital Signs Vital signs: Vital Signs Temp 98.5 F 07/12/21 06:21 Pulse 83 07/12/21 06:21 Resp 18 07/12/21 06:21 BP 149/80 07/12/21 06:21 Pulse Ox 98 07/12/21 06:21 Intake & Output 07/11/21 07/12/21 07/12/21 18:59 06:59 18:59 Intake Total 480 100 53 Output Total 700 Balance 480 -600 53 Weight 51.3 kg Intake: IV 100 53 Oral 480 Output: Urine 700 Other: Voiding Method Bedside Commode # Voids 2 1 - Exam GENERAL: The patient is alert and oriented x3, not in any acute distress. Well developed, well nourished. HEENT: Pupils are round and equally reacting to light. EOMI. No scleral icterus. No conjunctival pallor. Normocephalic, atraumatic. No pharyngeal erythema. No thyromegaly. CARDIOVASCULAR: S1 and S2 present. No murmurs, rubs, or gallops. PULMONARY: Chest is clear to auscultation, no wheezing or crackles. ABDOMEN: Soft, nontender, nondistended, normoactive bowel sounds. No palpable organomegaly. MUSCULOSKELETAL: No joint swelling or deformity. EXTREMITIES: No cyanosis, clubbing, patient does have pedal edema patient has a cast in the left leg. NEUROLOGICAL: Gross neurological examination did not reveal any focal deficits. SKIN: No rashes. - Labs CBC & Chem 7: 07/12/21 08:24 07/11/21 07:54 Labs: Abnormal Lab Results - Last 24 Hours (Table) 07/11/21 07/11/21 07/11/21 Range/Units 11:29 15:40 16:39 RBC (3.80-5.40) m/uL Hgb (11.4-16.0) gm/dL Hct (34.0-46.0) % RDW (11.5-15.5) % POC Glucose (mg/dL) 211 H 215 H (75-99) mg/dL Crossmatch See Detail 07/11/21 07/12/21 07/12/21 Range/Units 20:15 05:43 08:24 RBC 3.44 L (3.80-5.40) m/uL Hgb 10.1 L (11.4-16.0) gm/dL Hct 31.9 L (34.0-46.0) % RDW 16.0 H (11.5-15.5) % POC Glucose (mg/dL) 142 H 177 H (75-99) mg/dL Crossmatch Microbiology - Last 24 Hours (Table) 07/08/21 02:02 Blood Culture - Preliminary Blood No Growth after 96 hours Assessment and Plan Assessment: Assessment and plan -Acute non-ST elevation myocardial infarction: Patient is status post cardiac catheterization triple-vessel disease cardiothoracic surgery evaluation -Acute hypoxic respiratory failure most probably secondary to congestive heart failure chronic systolic dysfunction with acute exacerbation patient was started on low-dose of Lasix patient blood pressure is borderline low. Patient is on lisinopril which will be continued as well along with Aldactone. Pneumonia rul ed out for calcitonin is low. -Nicotine use: Counseling was provided -Type 2 diabetes mellitus -Hyperlipidemia 1 possible hypervolemic hyponatremia
[2021-07-12] MEDS: CLEVIDIPINE BUTYRATE 25 MG in EMPTY BAG 1 BAG IV SCH (16:00)
[2021-07-12] MEDS: SODIUM CHLORIDE 0.9% 1,000 ML IV SCH (16:00)
[2021-07-12] MEDS: MILRINONE-D5W PMX 20 MG in DEXTROSE/WATER 1 100ML.BAG IV SCH (16:00)
[2021-07-12 16:10] LABS: Glucose,Whole Blood 109 mg/dL (75-99)
--- NOTE | 2021-07-12 16:28 | XR ---
EXAMINATION TYPE: XR chest 1V portable DATE OF EXAM: 07/12/2021 COMPARISON: Chest x-ray 07/11/2021 HISTORY: Postop cardiac surgery TECHNIQUE: Single frontal view of the chest is obtained. FINDINGS: Endotracheal tube, median sternal drain, left chest tube, right jugular central venous cat heter are overlying appropriate positions, the central venous catheter is looped within the pulmonary artery. Tube is overlying the right lower hemithorax. Patient is post median sternotomy and left atr ial appendage clip placement. Patchy basilar density is noted, heart size is improved. There is no ev ident sizable effusion, minimal left apical pneumothorax is present, there are overlying artifacts. T here is subcutaneous emphysema over the left chest. IMPRESSION: Satisfactory postoperative chest x-ray, basilar atelectasis, minimal left apical pneumot horax
[2021-07-12] MEDS: ALBUMIN HUMAN 5% 250 ML in EMPTY BAG 1 BAG IVPB PRN ×2 (16:30→17:30)
[2021-07-12 16:47] LABS: ABG Base Excess 5.5 mmol/L; ABG HCO3 30 mmol/L (21-25); ABG PCO2 46 mmHg (35-45); ABG PH 7.43 (7.35-7.45); ABG PO2 >400 mmHg (83-108); ABG TCO2 31 mmol/L (19-24)
[2021-07-12 16:54] LABS: Anisocytosis Slight; Basophils % (A) 0 %; Eosinophils # (A) 0.1 k/uL (0-0.7); Eosinophils % (A) 2 %; HCT 25.6 % (34.0-46.0); Hypochromasia Slight; Lymphocytes % (A) 13 %; MCH 29.4 pg (25.0-35.0); MCHC 32.3 g/dL (31.0-37.0); MCV 91.2 fL (80.0-100.0); Mean Platelet Volume 7.7; Monocytes # (A) 0.5 k/uL (0-1.0); Monocytes % (A) 7 %; Neutrophils # (A) 5.9 k/uL (1.3-7.7); Neutrophils % (A) 78 %; Platelet Count 140 k/uL (150-450); RBC 2.81 m/uL (3.80-5.40); RDW 16.1 % (11.5-15.5); WBC 7.5 k/uL (3.8-10.6)
[2021-07-12 17:03] LABS: ALT 12 U/L (4-34); AST 28 U/L (14-36); African American GFR (CKD) >90 (>60 ml/min/1.73 sqM); Albumin 1.8 g/dL (3.5-5.0); Alkaline Phosphatase 45 U/L (38-126); Anion Gap 6 mmol/L; Blood Urea Nitrogen 14 mg/dL (7-17); Carbon Dioxide 26 mmol/L (22-30); Chloride 106 mmol/L (98-107); Glucose 100 mg/dL (74-99); Magnesium 2.3 mg/dL (1.6-2.3); Non-African American GFR(CKD) >90 (>60 ml/min/1.73 sqM); Potassium 4.4 mmol/L (3.5-5.1); Sodium 138 mmol/L (137-145); Total Bilirubin 0.4 mg/dL (0.2-1.3); Total Protein 3.7 g/dL (6.3-8.2)
[2021-07-12 17:06] LABS: INR 1.4 (<1.2); Partial Thromboplastin Time 31.7 sec (22.0-30.0); Prothrombin Time 13.9 sec (9.0-12.0)
[2021-07-12 17:30] LABS: Glucose,Whole Blood 90 mg/dL (75-99)
--- NOTE | 2021-07-12 17:42 | P.PN ---
Subjective Progress Note Date: 07/12/21 Principal diagnosis: Status post CABG for severe coronary artery disease, postoperative day #1. This is a 61-year-old female patient who follows with Dr. Marcos is her primary care provider. She has a history of chronic and ongoing tobacco dependence, not on oxygen or inhalers at home, diabetes mellitus, hyperlipidemia. She presented here to the emergency room after sustaining a fall at home. She states she tripped over a box and fell backwards and hitting her back on her walker. The next day she had developed chest tightness and shortness of breath and presented here for the same. His chest x-ray showed evidence of bilateral lower lobe pneumonia and pleural effusion with some mild congestive heart failure. CT angiogram ruled out pulmonary embolism. There is again bilateral lower lobe pneumonias with atelectasis and moderate pleural effusions. Echocardiogram revealed moderate to severely impaired left ventricular systolic function with ejection fraction 30-35%. She was found to have an acute non-ST segment elevation myocardial infarction and had undergone left and a heart catheterization that revealed severe triple-vessel coronary artery disease with chronic total occlusion of the RCA, critical disease involving the circumflex and severe disease involving the mid LAD as well as a distal LAD. She was recommended maximum medical therapy and being evaluated by cardiothoracic surgery. Pulmonary function testing revealed an FEV1 value of 1.17 L which was 48% of predicted. He is seen today in consultation. She is sitting up in a chair at the bedside. Awake and alert in no acute distress. She denies any shortness of breath, cough or congestion. No hemoptysis. He is maintaining O2 saturations in the mid 90s on 2 L/m per nasal cannula. White count 6.3. Hemoglobin 10.9. Sodium 137. Potassium 4.7. Creatinine 0.51. AST 68. ALT 31. Glucose 132. Dyer virus not detected. The patient is not vaccinated. Patient was reevaluated today on 06/12/2021, I saw this patient yesterday on consultation, and today she underwent CABG, patient had SY to LAD, SVG to RCA, SVG to obtuse marginal 1. Postoperatively patient was transferred to the ICU, and she was on mechanical ventilation. I was asked to see her again on consultation. She is now on assist control rate of 12 tidal volume is 450, FiO2 is 100% but we changed that to 40%, is also on a PEEP of 5. ABG on 100% FiO2 showed a pO2 of more than 400 pCO2 of 46 pH of 7.43. Patient is still requiring inotropes and pressors, she is on milrinone at 0.2 mcg/kg/m, is also on norepinephrine at 0.02 mcg/kg/m. S x-ray showed no evidence of any significant abnormality. There is satisfactory postoperative chest x-ray with minimal atelectasis, endotracheal tube, median sternal drain and left-sided chest tube are all intact. No evidence of pneumonia and no evidence of effusion, there is possibly a small tiny left apical pneumothorax. And there is also evidence of subcutaneous emphysema over the left chest. Objective - Vital Signs Vital signs: Vital Signs Temp 35.3 F L 07/12/21 17:15 Pulse 91 07/12/21 17:20 Resp 12 07/12/21 17:20 BP 149/80 07/12/21 06:21 Pulse Ox 98 07/12/21 17:15 Intake & Output 07/11/21 07/12/21 07/12/21 18:59 06:59 18:59 Intake Total 480 100 463 Output Total 700 2960 Balance 480 600 -2497 Weight 51.3 kg Intake: IV 100 153 Sodium Chloride 0.9% 1, 100 000 ml @ 50 mls/hr IV . Q20H [facility] Rx#:[id number] Oral 480 Blood Product 310 Rc As-1 Unit 310 [id number] Output: Chest Tube Drainage 670 Chest Tube Left Lower 510 Lateral Chest Chest Tube Lower 90 Mediastinal Chest Tube Right Lower 70 Lateral Chest Drainage 30 Right Calf 30 Urine 700 760 Estimated Blood Loss 1500 Other: Voiding Method Bedside Commode # Voids 2 1 ABP, PAP, CO, CI - Last Documented Arterial Blood Pressure 105/61 Pulmonary Artery Pressure 34/23 Cardiac Output 3.8 Cardiac Index 2.5 - Exam GENERAL EXAM: Revealed a 61-year-old female, sedated, on mechanical ventilation, just arrived to the ICU from the operating room HEAD: Normocephalic. Endotracheal tube and orogastric tube are intact. HEENT: PERRLA, EOMI, anicteric, no neck masses, no JVD. CHEST: No chest wall deformity. LUNGS: Chest tube and mediastinal tube noted, symmetrical chest expansion. Fine crackles at the bases.. CVS: S1 and S2 normal , positive pericardial rub noted. ABDOMEN: Soft nontender no megaly no rebound. SKIN: No rashes CENTRAL NERVOUS SYSTEM: Not assessed, patient is still sedated. EXTREMITIES: No clubbing edema or cyanosis, good pulses bilaterally. - Labs CBC & Chem 7: 07/12/21 16:08 07/12/21 16:08 Labs: Abnormal Lab Results - Last 24 Hours (Table) 07/11/21 07/11/21 07/12/21 Range/Units 15:40 20:15 05:43 RBC (3.80-5.40) m/uL Hgb (11.4-16.0) gm/dL Hct (34.0-46.0) % RDW (11.5-15.5) % Plt Count (150-450) k/uL PT (9.0-12.0) sec INR (<1.2) APTT (22.0-30.0) sec ABG pCO2 (35-45) mmHg ABG pO2 (83-108) mmHg ABG HCO3 (21-25) mmol/L ABG Total CO2 (19-24) mmol/L ABG O2 Saturation (94-97) % Creatinine (0.52-1.04) mg/dL Glucose (74-99) mg/dL POC Glucose (mg/dL) 142 H 177 H (75-99) mg/dL Calcium (8.4-10.2) mg/dL Total Protein (6.3-8.2) g/dL Albumin (3.5-5.0) g/dL Crossmatch See Detail 07/12/21 07/12/21 07/12/21 Range/Units 08:24 16:06 16:08 RBC 3.44 L 2.81 L (3.80-5.40) m/uL Hgb 10.1 L 8.0 L D (11.4-16.0) gm/dL Hct 31.9 L 25.6 L (34.0-46.0) % RDW 16.0 H 16.1 H (11.5-15.5) % Plt Count 140 L (150-450) k/uL PT (9.0-12.0) sec INR (<1.2) APTT (22.0-30.0) sec ABG pCO2 (35-45) mmHg ABG pO2 (83-108) mmHg ABG HCO3 (21-25) mmol/L ABG Total CO2 (19-24) mmol/L ABG O2 Saturation (94-97) % Creatinine (0.52-1.04) mg/dL Glucose (74-99) mg/dL POC Glucose (mg/dL) 109 H (75-99) mg/dL Calcium (8.4-10.2) mg/dL Total Protein (6.3-8.2) g/dL Albumin (3.5-5.0) g/dL Crossmatch 07/12/21 07/12/21 07/12/21 Range/Units 16:08 16:08 16:45 RBC (3.80-5.40) m/uL Hgb (11.4-16.0) gm/dL Hct (34.0-46.0) % RDW (11.5-15.5) % Plt Count (150-450) k/uL PT 13.9 H (9.0-12.0) sec INR 1.4 H (<1.2) APTT 31.7 H (22.0-30.0) sec ABG pCO2 46 H (35-45) mmHg ABG pO2 >400 H (83-108) mmHg ABG HCO3 30 H (21-25) mmol/L ABG Total CO2 31 H (19-24) mmol/L ABG O2 Saturation 100.0 H (94-97) % Creatinine 0.26 L (0.52-1.04) mg/dL Glucose 100 H (74-99) mg/dL POC Glucose (mg/dL) (75-99) mg/dL Calcium 8.0 L (8.4-10.2) mg/dL Total Protein 3.7 L (6.3-8.2) g/dL Albumin 1.8 L (3.5-5.0) g/dL Crossmatch Microbiology - Last 24 Hours (Table) 07/08/21 02:02 Blood Culture - Preliminary Blood No Growth after 96 hours Assessment and Plan Assessment: Impression: Status post CABG, postoperative day #1 Acute non-ST elevation myocardial infarction and triple vessel coronary artery disease Severe chronic obstructive pulmonary lung disease FEV1 of 48% Tobacco dependence syndrome. Moderate LV dysfunction with ejection fraction of 50-55% Type 2 diabetes Benign essential hypertension Recommendation: Continue ventilatory support, FiO2 was decreased down to 40%. Bronchodilators/DuoNeb updrafts 4 times a day and when necessary. Hopefully early extubation and incentive spirometer. Resume cardiac medications. Early ambulation if possible. We will continue to follow and hopefully extubate sometime later this evening. We'll continue to follow. Critical care time is over 30 minutes. Time with Patient: Greater than 30
[2021-07-12] MEDS: SODIUM CHLORIDE 0.9% 1,000 ML in EMPTY BAG 1 BAG IV SCH (18:00)
[2021-07-12] MEDS: GABAPENTIN 100 MG CAP PO SCH ×2 (18:01→22:03)
[2021-07-12] MEDS: DULoxetine HCL 30 MG CAPSULE.DR PO SCH (18:01)
[2021-07-12] MEDS: ACETAMINOPHEN IV (For NPO) 1,000 MG in EMPTY BAG 1 BAG IVPB SCH (18:07)
[2021-07-12] MEDS: HEPARIN SODIUM,PORCINE/PF 5,000 UNIT/0.5 ML SYRINGE SQ SCH (18:17)
[2021-07-12 18:32] LABS: Glucose,Whole Blood 113 mg/dL (75-99)
[2021-07-12 19:03] LABS: Anisocytosis Slight; Basophils % (A) 0 %; Eosinophils # (A) 0.1 k/uL (0-0.7); Eosinophils % (A) 1 %; HCT 26.3 % (34.0-46.0); HGB 8.4 gm/dL (11.4-16.0); Hypochromasia Slight; Lymphocytes # (A) 0.6 k/uL (1.0-4.8); Lymphocytes % (A) 10 %; MCH 28.8 pg (25.0-35.0); MCHC 31.9 g/dL (31.0-37.0); MCV 90.4 fL (80.0-100.0); Mean Platelet Volume 8.2; Monocytes # (A) 0.6 k/uL (0-1.0); Monocytes % (A) 10 %; Neutrophils # (A) 4.7 k/uL (1.3-7.7); Neutrophils % (A) 79 %; Platelet Count 133 k/uL (150-450); RDW 16.3 % (11.5-15.5)
[2021-07-12 19:12] LABS: Glucose,Whole Blood 127 mg/dL (75-99)
[2021-07-12 20:06] LABS: Glucose,Whole Blood 141 mg/dL (75-99)
[2021-07-12 21:00] LABS: Glucose,Whole Blood 136 mg/dL (75-99)
[2021-07-12 21:33] LABS: Anisocytosis Slight; Basophils % (A) 0 %; Eosinophils # (A) 0.1 k/uL (0-0.7); Eosinophils % (A) 1 %; HCT 24.7 % (34.0-46.0); HGB 8.1 gm/dL (11.4-16.0); Hypochromasia Slight; Lymphocytes # (A) 0.4 k/uL (1.0-4.8); Lymphocytes % (A) 6 %; MCH 29.7 pg (25.0-35.0); MCHC 32.9 g/dL (31.0-37.0); MCV 90.3 fL (80.0-100.0); Mean Platelet Volume 9.6; Monocytes # (A) 0.5 k/uL (0-1.0); Monocytes % (A) 7 %; Neutrophils # (A) 5.3 k/uL (1.3-7.7); Neutrophils % (A) 85 %; Platelet Count 123 k/uL (150-450); RBC 2.73 m/uL (3.80-5.40); RDW 16.3 % (11.5-15.5); WBC 6.3 k/uL (3.8-10.6)
[2021-07-12 21:54] LABS: Glucose,Whole Blood 117 mg/dL (75-99)
[2021-07-12] MEDS: AMIODARONE 200 MG TAB PO SCH (22:04)
[2021-07-12 22:58] LABS: Glucose,Whole Blood 114 mg/dL (75-99)
[2021-07-13] MEDS: HEPARIN SODIUM,PORCINE/PF 5,000 UNIT/0.5 ML SYRINGE SQ SCH ×3 (00:05→16:33)
[2021-07-13] MEDS: ACETAMINOPHEN IV (For NPO) 1,000 MG in EMPTY BAG 1 BAG IVPB SCH (00:05)
[2021-07-13 00:15] LABS: Glucose,Whole Blood 132 mg/dL (75-99)
[2021-07-13 01:01] LABS: Glucose,Whole Blood 145 mg/dL (75-99)
[2021-07-13 02:00] LABS: Glucose,Whole Blood 145 mg/dL (75-99)
[2021-07-13] MEDS ORDERED: HYDROcodone/APAP 5-325MG 1 EACH TAB PO PRN (03:09)
[2021-07-13 03:16] LABS: Glucose,Whole Blood 127 mg/dL (75-99)
[2021-07-13 04:11] LABS: Glucose,Whole Blood 119 mg/dL (75-99)
[2021-07-13 04:32] LABS: Anisocytosis Slight; Basophils % (A) 0 %; Eosinophils # (A) 0.1 k/uL (0-0.7); Eosinophils % (A) 1 %; HCT 24.8 % (34.0-46.0); Hypochromasia Slight; Lymphocytes # (A) 0.7 k/uL (1.0-4.8); Lymphocytes % (A) 9 %; MCH 29.2 pg (25.0-35.0); MCHC 32.2 g/dL (31.0-37.0); MCV 90.7 fL (80.0-100.0); Mean Platelet Volume 8.7; Monocytes # (A) 0.6 k/uL (0-1.0); Monocytes % (A) 7 %; Neutrophils # (A) 6.2 k/uL (1.3-7.7); Neutrophils % (A) 82 %; Platelet Count 149 k/uL (150-450); RBC 2.73 m/uL (3.80-5.40); RDW 16.6 % (11.5-15.5); WBC 7.6 k/uL (3.8-10.6)
[2021-07-13 04:40] LABS: Ionized Calcium 4.8 mg/dL (4.5-5.3)
[2021-07-13 04:52] LABS: ALT 11 U/L (4-34); AST 29 U/L (14-36); African American GFR (CKD) >90 (>60 ml/min/1.73 sqM); Albumin 2.3 g/dL (3.5-5.0); Alkaline Phosphatase 50 U/L (38-126); Anion Gap 5 mmol/L; Blood Urea Nitrogen 17 mg/dL (7-17); Calcium 8.1 mg/dL (8.4-10.2); Carbon Dioxide 28 mmol/L (22-30); Chloride 106 mmol/L (98-107); Glucose 111 mg/dL (74-99); Magnesium 2.2 mg/dL (1.6-2.3); Non-African American GFR(CKD) >90 (>60 ml/min/1.73 sqM); Potassium 4.1 mmol/L (3.5-5.1); Sodium 139 mmol/L (137-145); Total Bilirubin 0.5 mg/dL (0.2-1.3); Total Protein 4.5 g/dL (6.3-8.2)
[2021-07-13 05:02] LABS: Glucose,Whole Blood 106 mg/dL (75-99)
--- NOTE | 2021-07-13 05:34 | OP ---
OPERATIVE REPORT DATE OF SURGERY: 07/12/2021. SURGEON: Dr. Patrice Olvera. ELECTRONIC SEMICONDUCTOR PROCESSOR: Enrique Alberto, physician fast food assistant restaurant manager, Lee Webb, Nurse practitioner. PREOPERATIVE DIAGNOSES: Non ST elevation myocardial infarction with congestive heart failure, triple- vessel coronary artery disease, moderate left ventricular dysfunction, hypertension, hyperlipidemia, poorly controlled diabetes, chronic obstructive pulmonary disease, active smoking, currently with a cast for left foot fracture and currently non- weightbearing. POSTOPERATIVE DIAGNOSIS: Non ST elevation myocardial infarction with congestive heart failure, triple- vessel coronary artery disease, moderate left ventricular dysfunction, hypertension, hyperlipidemia, poorly controlled diabetes, chronic obstructive pulmonary disease, active smoking, currently with a cast for left foot fracture and currently non- weightbearing. Diffuse coronary artery disease. PROCEDURE: 1. Quadruple coronary artery bypass grafting using the left internal mammary artery sequentially in a [id number] fashion to the mid left anterior descending artery, then in an end-to-side fashion to the distal left anterior descending artery, reverse saphenous vein graft from the aorta to the first obtuse marginal artery, reverse saphenous vein graft from the aorta to the right coronary artery after the takeoff of an early rising posterior descending artery. 2. Exclusion of the left atrial appendage using a 35 mm AtriClip. 3. Sternal plating using the Weston/TrimmCHANNEL system. 4. Harvesting of the right greater saphenous vein. 5. Intraoperative transesophageal echocardiogram and epiaortic scanning. 6. Intraoperative graft flow measurements using the ConnectEduim system. INDICATION FOR SURGERY: Patient is a 61 year old lady with the above comorbidities admitted in a picture of heart failure and ruled in for non ST elevation myocardial infarction. Cardiac catheterization followed and that showed a totally occluded collateralized right coronary artery, severe disease in the proximal circumflex and proximal LAD as well as mid LAD. The patient has a cast in her left lower extremity due to a foot fracture and she is still at a non weightbearing stage. She is an active smoker with an FEV1 of 45% at this point. The patient was optimized medically and discussion followed with her and her family and they understood that she would be at least a moderate risk for surgical coronary revascularization, which we elected to offer. They understood the risks and agreed to proceed. DESCRIPTION OF THE PROCEDURE: The patient in supine position. Right internal jugular [place] catheter and a right radial arterial line were placed. PA pressure was 60/25. Cardiac index was 2.2. Subsequently, she was brought to the operating room where general endotracheal anesthesia was induced uneventfully. The [place] catheter was inserted. The chest, abdomen and both lower extremities were prepped and draped using ChloraPrep. Ioban was used to cover the skin. The patient received 2 g of cefazolin intravenously. Transesophageal echocardiogram confirmed the preoperative finding of moderate left ventricular dysfunction, mild mitral valve regurgitation. A midline sternotomy was performed and the bone was osteoporotic. Both pleura were opened due to hyperinflated lungs. Each was drained with a 19-Ecuadorean Antonio drain. No bone wax was used but only fibular on the sternum. The left hemisternum was elevated and left internal mammary artery was harvested in a somewhat skeletonized fashion. The patient was given 5000 units of heparin and the mammary artery was clipped distally and transected and had good pulsatile flow in it and was around 2 mm in diameter. To mention, there were some adhesions between the lower lobe on the right side and the anterior chest wall, which were left undisturbed. In the same setting, the right greater saphenous vein was harvested endoscopically from groin to above ankle level after administration of 2000 units of heparin. The leg incisions were closed over a drain. The vein was repaired by tying all the branches. We had 2 segments of reasonable quality around 3-4 mm in diameter. A Langston retractor was used. Mediastinal fat was transected between 2 ties and epiaortic scanning revealed no protruding atheroma in the ascending aorta. Pericardium was opened in an inverted T-fashion and a pericardial cradle was created. Findings included normal soft aorta and normal size heart with palpable calcific diffuse coronary artery disease. After systemic heparinization, after placement of respective pledgeted pursestring, aortic cannulation with a 21-Ecuadorean soft flow cannula and venous cannulation via the right atrial appendage with a 3-stage 29-Ecuadorean cannula was performed. Antegrade as well as retrograde cardioplegia catheter were placed. Cardiopulmonary bypass was initiated with the heart empty and beating we looked at the target. The mid LAD was identified, followed by a calcified long segment followed by distal apical left anterior descending artery segment that was also identified. Looking at the inferior wall for the totally occluded right coronary artery, there was an early rising posterior descending artery was on the small side, but the RCA beyond the takeoff was of reasonable quality and size and will be the site for bypass. Looking in the lateral wall, the first obtuse marginal artery which was our target was identified. Aorta was clamped and during aortic clamping myocardial protection was achieved with initial dose of 600 mL of antegrade cold blood cardioplegia with adequate arrest at 200 mL followed by 400 mL of retrograde cold blood cardioplegia. All subsequent doses were given retrograde as well as through the constructed vein graft to the right coronary artery at 15-20 minutes interval. We started by excluding the left atrial appendage by deploying a 35 mm AtriClip at its base. Subsequently, the first distal anastomosis was seen a good segment of vein and the 1.5 mm thin-walled RCA using Prolene 7-0 in continuous fashion. I used a 1 mm shunt that was removed before completing the anastomosis. The second distal anastomosis was between another segment of vein of reasonable quality and 1.75 mm proximal aspect of the obtuse marginal artery which had a posterior plaque at that level using Prolene 7-0 in continuous fashion. I also used a 1 mm shunt that was retrieved before completing the anastomosis. The third distal anastomosis was between the left internal mammary artery and the mid aspect of the left anterior descending artery in a [id number] fashion. The LAD was around 1.75 mm in diameter and the anastomosis was completed using Prolene 7-0 in continuous fashion. A groove was made in the left pleural pericardial fat to accommodate the mammary artery medial to the lung and away from the posterior sternal table. Subsequently, the fourth and last distal anastomosis was between the end of the left internal mammary artery and the side of the distal aspect of the left anterior descending artery which was around 1.5 mm in diameter using Prolene 7-0 in continuous fashion. The mammary pedicle proximal to the initial side-to- side anastomosis was affixed to the epicardium using Prolene 6-0 in either side. Satisfied with the distal anastomosis, rewarming was started as we punched out 2 buttons of 4 mm each in the ascending aorta and the 2 proximal anastomoses of the 2 vein graft completed using a running Prolene 6-0. The patient was half loaded with Primacor and de-airing maneuvers were followed before we unclamped the aorta. The patient regained spontaneous sinus rhythm. Initial graft flow signal was excellent. After around 15-20 minutes of reperfusion and with Primacor at 0.3 mics per kg per minute at this point, we were able to wean off cardiac bypass. Cardiac index was 2.4. PA pressure was 40/20. MARLY showed somewhat improved left ventricular function. At this point, using the Varolii stim system, we proceeded at the graft flow measurements. The flow into the vein graft to the RCA was 29 mL/minute, pulsatility index of 1.4, diastolic filling of 63% showing excellent functioning graft. The flow into the vein to the obtuse marginal artery was 51 mL/minute, pulsatility index of 1.2, diastolic filling of 71% showing excellent functioning graft. The flow into the left internal mammary artery to the LAD, mid and distal was 18 mL/minute, pulsatility index of 2.1, diastolic filling of 75% showing excellent functioning graft. With that, the pump suckers were stopped. The test dose then full dose protamine was given. Two monopolar atrial pacing wires were affixed to the respective pursestrings on the right atrium and no ventricular pacing wire was placed. Decannulation followed and no reinforcement sutures were needed. Pericardial fat was approximated over the aorta and the graft as well as the anterior aspect of the right ventricle. One nineteen-Ecuadorean Antonio drain was left substernally. After ensuring adequate hemostasis and hemodynamic and after correct sponge, instrument, and needle count, the sternum was closed using combination of pioneer cable as well as a Weston plating system from [employer] by using a V access to the plate at the manubrium and 2 X plate in the body of the sternum as well as 1 sharp figure-of- eight pioneer cable and 2 blunt interrupted pioneer cables for the third and fifth intercostal spaces. Thorough irrigation of cefazolin followed. The rest of the closure proceeded in layers. Skin glue was applied. Patient received 1 unit of packed red blood cells as well as 350 mL of Cell Saver blood. She was transferred to the ICU in stable condition at 0.2 mics per kg per minute of Primacor with a cardiac index of 2.2, PA pressure of 30/15, normal sinus rhythm at 80 and mean arterial pressure of 74. MMODL / IJN: [id number] / MTDD
[2021-07-13 06:13] LABS: Glucose,Whole Blood 122 mg/dL (75-99)
[2021-07-13] MEDS: ALBUMIN HUMAN 5% 250 ML in EMPTY BAG 1 BAG IVPB PRN ×3 (06:50→18:31)
[2021-07-13 07:02] LABS: Glucose,Whole Blood 126 mg/dL (75-99)
[2021-07-13] MEDS: SYMBICORT 160-4.5 MCG INHALER INHALATION SCH ×2 (07:05→19:19)
[2021-07-13] MEDS: CLOPIDOGREL 75 MG TAB PO SCH (07:15)
[2021-07-13] MEDS: ASPIRIN 325 MG TAB PO SCH (07:15)
[2021-07-13 07:17] LABS: ABG Base Excess 5.2 mmol/L; ABG HCO3 29 mmol/L (21-25); ABG Oxygen Saturation 99.8 % (94-97); ABG PCO2 43 mmHg (35-45); ABG PH 7.44 (7.35-7.45); ABG PO2 146 mmHg (83-108); ABG TCO2 31 mmol/L (19-24)
[2021-07-13 07:18] LABS: Allen Test Performed? no
[2021-07-13] MEDS: IPRATROPIUM-ALBUTEROL 3 ML NEB INHALATION SCH ×4 (07:19→19:19)
--- NOTE | 2021-07-13 07:36 | P.PN ---
Subjective Progress Note Date: 07/13/21 Principal diagnosis: Acute non-ST patient myocardial infarction/severe CAD The patient is a 61-year-old female patient was diabetes and smoking and also hypertension and dyslipidemia who was admitted to the hospital with a chest discomfort and she was ruled in for acute non-ST patient myocardial infarction. The troponin came in to be abnormal. EKG showed ST changes concerning for ischemia. The echo showed inverted only function was EF around 30-35% with evidence of wall motion abnormalities in the inferolateral segments concerning for severe CAD. For that reason she underwent a heart catheterization that revealed severe triple-vessel CAD. Cardiothoracic surgery consult was placed and the patient underwent yesterday CABG 3 with a SY to LAD and SVG to LCx as well as SVG to RCA. The patient was seen this morning. She continues to be intubated. She is quite awake. She is in process of getting extubated. Hemodynamically she seems to be stable and not on any vasopressors. She is on milrinone and she is also on nitro drip and both are in process to be weaned down. Urine output is good. Chest x-ray was reviewed and looks reasonable as well. Blood work was reviewed. She is on dual antiplatelet therapy along with intermediate intensity statin. Objective - Vital Signs Vital signs: Vital Signs Temp 35.3 F L 07/12/21 17:15 Pulse 98 07/13/21 06:00 Resp 15 07/13/21 06:00 BP 149/80 07/12/21 06:21 Pulse Ox 99 07/13/21 06:00 Intake & Output 07/12/21 07/13/21 07/13/21 18:59 06:59 18:59 Intake Total 309.576 5414.409 0.412 Output Total 3055 1468 Balance -2225.452 -7.591 0.412 Intake: IV 503 1445.5 ACETAMINOPHEN IV (For NPO 100 ) 1,000 mg In Empty Bag 1 bag @ 400 mls/hr IVPB Q6HR [facility] Rx#:[id number] Albumin Human 5% 250 ml 250 250 In Empty Bag 1 bag @ 250 mls/hr IVPB Q1HR PRN Rx#: [id number] CO Injectate 330 Nitroglycerine 16.5 Pressure bags 99 Sodium Chloride 0.9% 1, 200 600 000 ml @ 50 mls/hr IV . Q20H [facility] Rx#:[id number] ceFAZolin 2 gm In Sodium 50 Chloride 0.9% 50 ml @ 100 mls/hr IVPB ONCE ONE Rx# :[id number] Intake, IV Titration 16.548 14.909 0.412 Amount Clevidipine Butyrate 25 0 3.034 mg In Empty Bag 1 bag @ 1 MG/HR 2 mls/hr IV .Q24H [facility] Rx#:[id number] Insulin Regular 100 unit 11.875 0.412 In Sodium Chloride 0.9% 100 ml @ Per Protocol IV .Q0M [facility] Rx#:[id number] Norepinephrine 4 mg In 16.548 Sodium Chloride 0.9% 250 ml @ 0.05 MCG/KG/MIN 9. 773 mls/hr IV .Q24H [facility] Rx#:[id number] Blood Product 310 Rc As-1 Unit 310 [id number] Output: Chest Tube Drainage 715 405 Chest Tube Left Lower 520 100 Lateral Chest Chest Tube Lower 95 145 Mediastinal Chest Tube Right Lower 100 160 Lateral Chest Gastric Drainage 300 Drainage 30 30 Right Calf 30 30 Urine 810 583 Oral Regurgitation 150 Estimated Blood Loss 1500 Other: Voiding Method Indwelling Catheter Indwelling Catheter ABP, PAP, CO, CI - Last Documented Arterial Blood Pressure 131/64 Pulmonary Artery Pressure 39/26 Cardiac Output 4.3 Cardiac Index 2.8 - Constitutional General appearance: Present: no acute distress - Respiratory Respiratory: bilateral: diminished - Cardiovascular Rhythm: regular - Labs CBC & Chem 7: 07/13/21 04:09 07/13/21 04:09 Labs: Abnormal Lab Results - Last 24 Hours (Table) 07/11/21 07/12/21 07/12/21 Range/Units 15:40 08:24 16:06 RBC 3.44 L (3.80-5.40) m/uL Hgb 10.1 L (11.4-16.0) gm/dL Hct 31.9 L (34.0-46.0) % RDW 16.0 H (11.5-15.5) % Plt Count (150-450) k/uL Lymphocytes # (1.0-4.8) k/uL PT (9.0-12.0) sec INR (<1.2) APTT (22.0-30.0) sec ABG pCO2 (35-45) mmHg ABG pO2 (83-108) mmHg ABG HCO3 (21-25) mmol/L ABG Total CO2 (19-24) mmol/L ABG O2 Saturation (94-97) % Creatinine (0.52-1.04) mg/dL Glucose (74-99) mg/dL POC Glucose (mg/dL) 109 H (75-99) mg/dL Calcium (8.4-10.2) mg/dL Total Protein (6.3-8.2) g/dL Albumin (3.5-5.0) g/dL Crossmatch See Detail 07/12/21 07/12/21 07/12/21 Range/Units 16:08 16:08 16:08 RBC 2.81 L (3.80-5.40) m/uL Hgb 8.0 L D (11.4-16.0) gm/dL Hct 25.6 L (34.0-46.0) % RDW 16.1 H (11.5-15.5) % Plt Count 140 L (150-450) k/uL Lymphocytes # (1.0-4.8) k/uL PT 13.9 H (9.0-12.0) sec INR 1.4 H (<1.2) APTT 31.7 H (22.0-30.0) sec ABG pCO2 (35-45) mmHg ABG pO2 (83-108) mmHg ABG HCO3 (21-25) mmol/L ABG Total CO2 (19-24) mmol/L ABG O2 Saturation (94-97) % Creatinine 0.26 L (0.52-1.04) mg/dL Glucose 100 H (74-99) mg/dL POC Glucose (mg/dL) (75-99) mg/dL Calcium 8.0 L (8.4-10.2) mg/dL Total Protein 3.7 L (6.3-8.2) g/dL Albumin 1.8 L (3.5-5.0) g/dL Crossmatch 07/12/21 07/12/21 07/12/21 Range/Units 16:45 18:06 18:29 RBC 2.90 L (3.80-5.40) m/uL Hgb 8.4 L (11.4-16.0) gm/dL Hct 26.3 L (34.0-46.0) % RDW 16.3 H (11.5-15.5) % Plt Count 133 L (150-450) k/uL Lymphocytes # 0.6 L (1.0-4.8) k/uL PT (9.0-12.0) sec INR (<1.2) APTT (22.0-30.0) sec ABG pCO2 46 H (35-45) mmHg ABG pO2 >400 H (83-108) mmHg ABG HCO3 30 H (21-25) mmol/L ABG Total CO2 31 H (19-24) mmol/L ABG O2 Saturation 100.0 H (94-97) % Creatinine (0.52-1.04) mg/dL Glucose (74-99) mg/dL POC Glucose (mg/dL) 113 H (75-99) mg/dL Calcium (8.4-10.2) mg/dL Total Protein (6.3-8.2) g/dL Albumin (3.5-5.0) g/dL Crossmatch 07/12/21 07/12/21 07/12/21 Range/Units 19:05 20:04 20:58 RBC (3.80-5.40) m/uL Hgb (11.4-16.0) gm/dL Hct (34.0-46.0) % RDW (11.5-15.5) % Plt Count (150-450) k/uL Lymphocytes # (1.0-4.8) k/uL PT (9.0-12.0) sec INR (<1.2) APTT (22.0-30.0) sec ABG pCO2 (35-45) mmHg ABG pO2 (83-108) mmHg ABG HCO3 (21-25) mmol/L ABG Total CO2 (19-24) mmol/L ABG O2 Saturation (94-97) % Creatinine (0.52-1.04) mg/dL Glucose (74-99) mg/dL POC Glucose (mg/dL) 127 H 141 H 136 H (75-99) mg/dL Calcium (8.4-10.2) mg/dL Total Protein (6.3-8.2) g/dL Albumin (3.5-5.0) g/dL Crossmatch 07/12/21 07/12/21 07/12/21 Range/Units 21:20 21:53 22:56 RBC 2.73 L (3.80-5.40) m/uL Hgb 8.1 L (11.4-16.0) gm/dL Hct 24.7 L (34.0-46.0) % RDW 16.3 H (11.5-15.5) % Plt Count 123 L (150-450) k/uL Lymphocytes # 0.4 L (1.0-4.8) k/uL PT (9.0-12.0) sec INR (<1.2) APTT (22.0-30.0) sec ABG pCO2 (35-45) mmHg ABG pO2 (83-108) mmHg ABG HCO3 (21-25) mmol/L ABG Total CO2 (19-24) mmol/L ABG O2 Saturation (94-97) % Creatinine (0.52-1.04) mg/dL Glucose (74-99) mg/dL POC Glucose (mg/dL) 117 H 114 H (75-99) mg/dL Calcium (8.4-10.2) mg/dL Total Protein (6.3-8.2) g/dL Albumin (3.5-5.0) g/dL Crossmatch 07/13/21 07/13/21 07/13/21 Range/Units 00:12 01:00 01:58 RBC (3.80-5.40) m/uL Hgb (11.4-16.0) gm/dL Hct (34.0-46.0) % RDW (11.5-15.5) % Plt Count (150-450) k/uL Lymphocytes # (1.0-4.8) k/uL PT (9.0-12.0) sec INR (<1.2) APTT (22.0-30.0) sec ABG pCO2 (35-45) mmHg ABG pO2 (83-108) mmHg ABG HCO3 (21-25) mmol/L ABG Total CO2 (19-24) mmol/L ABG O2 Saturation (94-97) % Creatinine (0.52-1.04) mg/dL Glucose (74-99) mg/dL POC Glucose (mg/dL) 132 H 145 H 145 H (75-99) mg/dL Calcium (8.4-10.2) mg/dL Total Protein (6.3-8.2) g/dL Albumin (3.5-5.0) g/dL Crossmatch 07/13/21 07/13/21 07/13/21 Range/Units 03:14 04:09 04:09 RBC 2.73 L (3.80-5.40) m/uL Hgb 8.0 L (11.4-16.0) gm/dL Hct 24.8 L (34.0-46.0) % RDW 16.6 H (11.5-15.5) % Plt Count 149 L (150-450) k/uL Lymphocytes # 0.7 L (1.0-4.8) k/uL PT (9.0-12.0) sec INR (<1.2) APTT (22.0-30.0) sec ABG pCO2 (35-45) mmHg ABG pO2 (83-108) mmHg ABG HCO3 (21-25) mmol/L ABG Total CO2 (19-24) mmol/L ABG O2 Saturation (94-97) % Creatinine 0.39 L (0.52-1.04) mg/dL Glucose 111 H (74-99) mg/dL POC Glucose (mg/dL) 127 H (75-99) mg/dL Calcium 8.1 L (8.4-10.2) mg/dL Total Protein 4.5 L (6.3-8.2) g/dL Albumin 2.3 L (3.5-5.0) g/dL Crossmatch 07/13/21 07/13/21 07/13/21 Range/Units 04:09 05:00 06:10 RBC (3.80-5.40) m/uL Hgb (11.4-16.0) gm/dL Hct (34.0-46.0) % RDW (11.5-15.5) % Plt Count (150-450) k/uL Lymphocytes # (1.0-4.8) k/uL PT (9.0-12.0) sec INR (<1.2) APTT (22.0-30.0) sec ABG pCO2 (35-45) mmHg ABG pO2 (83-108) mmHg ABG HCO3 (21-25) mmol/L ABG Total CO2 (19-24) mmol/L ABG O2 Saturation (94-97) % Creatinine (0.52-1.04) mg/dL Glucose (74-99) mg/dL POC Glucose (mg/dL) 119 H 106 H 122 H (75-99) mg/dL Calcium (8.4-10.2) mg/dL Total Protein (6.3-8.2) g/dL Albumin (3.5-5.0) g/dL Crossmatch 07/13/21 07/13/21 Range/Units 06:59 07:15 RBC (3.80-5.40) m/uL Hgb (11.4-16.0) gm/dL Hct (34.0-46.0) % RDW (11.5-15.5) % Plt Count (150-450) k/uL Lymphocytes # (1.0-4.8) k/uL PT (9.0-12.0) sec INR (<1.2) APTT (22.0-30.0) sec ABG pCO2 (35-45) mmHg ABG pO2 146 H (83-108) mmHg ABG HCO3 29 H (21-25) mmol/L ABG Total CO2 31 H (19-24) mmol/L ABG O2 Saturation 99.8 H (94-97) % Creatinine (0.52-1.04) mg/dL Glucose (74-99) mg/dL POC Glucose (mg/dL) 126 H (75-99) mg/dL Calcium (8.4-10.2) mg/dL Total Protein (6.3-8.2) g/dL Albumin (3.5-5.0) g/dL Crossmatch Microbiology - Last 24 Hours (Table) 07/08/21 02:02 Blood Culture - Preliminary Blood No Growth after 120 hours Assessment and Plan Assessment: Assessment #1 acute non-ST elevation myocardial infarction #2 severe ischemic cardiomyopathy #3 severe triple-vessel CAD and status post CABG #4 multiple comorbidities including smoking and diabetes and hypertension and dyslipidemia Plan #1 continue the current medical regimen #2 suggest increase the dose of atorvastatin to 80 mg by mouth daily at bedtime #3 wean the patient from milirinone and nitrate #4 follow-up with the patient
--- NOTE | 2021-07-13 07:50 | XR ---
EXAMINATION TYPE: XR chest 1V portable DATE OF EXAM: 07/13/2021 COMPARISON: 07/12/2021 HISTORY: SOB, Follow Up FINDINGS: Indwelling tubes and catheters are unchanged. No change in bibasilar opacities. Stable appearance of the cardio-mediastinal structures at this time. IMPRESSION: 1. Stable portable chest. Clinical correlation and follow up until resolution is recommended.
--- NOTE | 2021-07-13 08:17 | P.PN ---
Subjective Progress Note Date: 07/13/21 Principal diagnosis: Multivessel coronary artery disease, NSTEMI this admission, acute on chronic systolic heart failure, bilateral pneumonia with pleural effusions this admission. Previous medical history of cardiomopathy, hypertension, hyperlipidemia, uncontrolled insulin-dependent diabetes mellitus with hyperglycemia, osteoarthritis, insomnia, degenerative disc disease, pneumonia, C. difficile, depression, fibromyalgia, chronic pain syndrome, current ongoing tobacco abuse, COPD, recent fall from standing with broken foot with non-weight bearing status, recent accidental overdose according to the patient, preoperative normocytic normochromic anemia POD #1 triple vessel coronary artery bypass grafting using the left internal mammary artery sequentially in a [id number] fashion to the mid left anterior descending artery, then in an end to side fashion to the distal left anterior descending artery, reverse saphenous vein graft from the aorta to the first obtuse marginal artery, reverse saphenous vein graft from the aorta to the right coronary artery after the takeoff of the early arising posterior descending artery, exclusion of the left atrial appendage using a 35 mm AtriClip, sternal plating using the [employer] system, harvesting of the right greater saphenous vein from the groin to above the ankle level, intraoperative transesophageal echocardiogram and epi-aortic scanning, intraoperative graft flow measurements using the 1EQim system Postoperative acute blood loss anemia and thrombocytopenia, expected outcomes given cardiopulmonary bypass pump and hemodilution as well as preoperative anemia The patient was seen and examined this morning in the intensive care unit sitting up in bed still mechanically ventilated but on CPAP mode, no acute distr ess. She shakes her head no when asked if she is having pain, tolerating CPAP mode well with plans for extubation soon. She was unable to be extubated overnight given CPAP trials with small tidal volumes. Remains in sinus rhythm and hemodynamically stable, currently on low dose Primacor and Cleviprex as well as IV nitro. Right internal jugular [place]/Cordis, right radial arterial line, mediastinal/right/left pleural chest tubes all remain. Urine output marginal but adequate. No other new concerns overnight. Objective - Vital Signs Vital signs: Vital Signs Temp 35.3 F L 07/12/21 17:15 Pulse 98 07/13/21 06:00 Resp 15 07/13/21 06:00 BP 149/80 07/12/21 06:21 Pulse Ox 99 07/13/21 06:00 Intake & Output 1207/13/21 07/13/21 18:59 06:59 18:59 Intake Total 882.291 0375.409 0.412 Output Total 3055 1468 Balance -2225.452 -7.591 0.412 Intake: IV 503 1445.5 ACETAMINOPHEN IV (For NPO 100 ) 1,000 mg In Empty Bag 1 bag @ 400 mls/hr IVPB Q6HR [facility] Rx#:[id number] Albumin Human 5% 250 ml 250 250 In Empty Bag 1 bag @ 250 mls/hr IVPB Q1HR [facility]N Rx#: [id number] CO Injectate 330 Nitroglycerine 16.5 Pressure bags 99 Sodium Chloride 0.9% 1, 200 600 000 ml @ 50 mls/hr IV . Q20H [facility] Rx#:[id number] ceFAZolin 2 gm In Sodium 50 Chloride 0.9% 50 ml @ 100 mls/hr IVPB ONCE ONE Rx# :[id number] Intake, IV Titration 16.548 14.909 0.412 Amount Clevidipine Butyrate 25 0 3.034 mg In Empty Bag 1 bag @ 1 MG/HR 2 mls/hr IV .Q24H [facility] Rx#:[id number] Insulin Regular 100 unit 11.875 0.412 In Sodium Chloride 0.9% 100 ml @ Per Protocol IV .Q0M [facility] Rx#:[id number] Norepinephrine 4 mg In 16.548 Sodium Chloride 0.9% 250 ml @ 0.05 MCG/KG/MIN 9. 773 mls/hr IV .Q24H [facility] Rx#:[id number] Blood Product 310 Rc As-1 Unit 310 [id number] Output: Chest Tube Drainage 715 405 Chest Tube Left Lower 520 100 Lateral Chest Chest Tube Lower 95 145 Mediastinal Chest Tube Right Lower 100 160 Lateral Chest Gastric Drainage 300 Drainage 30 30 Right Calf 30 30 Urine 810 583 Oral Regurgitation 150 Estimated Blood Loss 1500 Other: Voiding Method Indwelling Catheter Indwelling Catheter ABP, PAP, CO, CI - Last Documented Arterial Blood Pressure 131/64 Pulmonary Artery Pressure 39/26 Cardiac Output 4.3 Cardiac Index 2.8 - Exam CONSTITUTIONAL: Appears comfortable, cooperative, no acute distress RESPIRATORY: Lungs sounds diminished bilaterally. Respirations even, nonlabor ed. Currently on mechanical ventilation with CPAP mode. CARDIOVASCULAR: S1, S2 present. Regular rate and rhythm, sinus rhythm on telemetry. Sternum stable. Palpable peripheral pulses bilaterally except where cast present to left lower extremity. No edema present. No calf pain or tenderness noted. Heart hugger, antiembolism stockings, SCDs present. GASTROINTESTINAL: Abdomen soft, nontender, nondistended. Hypoactive bowel sounds present 4 quadrants. OG tube present draining minimal bile-looking drainage. GENITOURINARY: [place] present draining clear, yellow urine. Output overnight 35-50 mL per hour INTEGUMENTARY: Skin is warm and dry with evidence of good perfusion. Anterior chest incision well approximated and covered with dry intact dressing. Right lower extremity EVH site well approximated without redness, CHER drain present with minimal drainage. NEUROLOGIC: Cranial nerves II through XII intact MUSKULOSKELETAL: Able to move all extremities, strength equal bilaterally PSYCHIATRIC: Alert and and following commands, nodding and shaking head appropriately to questions,: Cooperative INVASIVE LINES AND TUBES: Mediastinal/left/right pleural chest tubes present and connected to wall suction, no air leaks present. Mediastinal tube with 100 mL serosanguineous drainage overnight, 250 mL since surgery. Left pleural chest tube with 50 mL serosanguineous drainage overnight, 600 mL since surgery. Right pleural chest tube with 100 mL serosanguineous drainage overnight, 300 mL since surgery. Atrial epicardial pacemaker wires present, grounded. Right internal jugular [place]/Cordis, right radial arterial line present. Last CO/CI 4.9/3.2, PA 30/16, CVP 6. - Allied health notes Allied health notes reviewed: nursing - Labs CBC & Chem 7: 07/13/21 04:09 07/13/21 04:09 Labs: Abnormal Lab Results - Last 24 Hours (Table) 07/11/21 07/12/21 07/12/21 Range/Units 15:40 08:24 16:06 RBC 3.44 L (3.80-5.40) m/uL Hgb 10.1 L (11.4-16.0) gm/dL Hct 31.9 L (34.0-46.0) % RDW 16.0 H (11.5-15.5) % Plt Count (150-450) k/uL Lymphocytes # (1.0-4.8) k/uL PT (9.0-12.0) sec INR (<1.2) APTT (22.0-30.0) sec ABG pCO2 (35-45) mmHg ABG pO2 (83-108) mmHg ABG HCO3 (21-25) mmol/L ABG Total CO2 (19-24) mmol/L ABG O2 Saturation (94-97) % Creatinine (0.52-1.04) mg/dL Glucose (74-99) mg/dL POC Glucose (mg/dL) 109 H (75-99) mg/dL Calcium (8.4-10.2) mg/dL Total Protein (6.3-8.2) g/dL Albumin (3.5-5.0) g/dL Crossmatch See Detail 07/12/21 07/12/21 07/12/21 Range/Units 16:08 16:08 16:08 RBC 2.81 L (3.80-5.40) m/uL Hgb 8.0 L D (11.4-16.0) gm/dL Hct 25.6 L (34.0-46.0) % RDW 16.1 H (11.5-15.5) % Plt Count 140 L (150-450) k/uL Lymphocytes # (1.0-4.8) k/uL PT 13.9 H (9.0-12.0) sec INR 1.4 H (<1.2) APTT 31.7 H (22.0-30.0) sec ABG pCO2 (35-45) mmHg ABG pO2 (83-108) mmHg ABG HCO3 (21-25) mmol/L ABG Total CO2 (19-24) mmol/L ABG O2 Saturation (94-97) % Creatinine 0.26 L (0.52-1.04) mg/dL Glucose 100 H (74-99) mg/dL POC Glucose (mg/dL) (75-99) mg/dL Calcium 8.0 L (8.4-10.2) mg/dL Total Protein 3.7 L (6.3-8.2) g/dL Albumin 1.8 L (3.5-5.0) g/dL Crossmatch 07/12/21 07/12/21 07/12/21 Range/Units 16:45 18:06 18:29 RBC 2.90 L (3.80-5.40) m/uL Hgb 8.4 L (11.4-16.0) gm/dL Hct 26.3 L (34.0-46.0) % RDW 16.3 H (11.5-15.5) % Plt Count 133 L (150-450) k/uL Lymphocytes # 0.6 L (1.0-4.8) k/uL PT (9.0-12.0) sec INR (<1.2) APTT (22.0-30.0) sec ABG pCO2 46 H (35-45) mmHg ABG pO2 >400 H (83-108) mmHg ABG HCO3 30 H (21-25) mmol/L ABG Total CO2 31 H (19-24) mmol/L ABG O2 Saturation 100.0 H (94-97) % Creatinine (0.52-1.04) mg/dL Glucose (74-99) mg/dL POC Glucose (mg/dL) 113 H (75-99) mg/dL Calcium (8.4-10.2) mg/dL Total Protein (6.3-8.2) g/dL Albumin (3.5-5.0) g/dL Crossmatch 07/12/21 07/12/21 07/12/21 Range/Units 19:05 20:04 20:58 RBC (3.80-5.40) m/uL Hgb (11.4-16.0) gm/dL Hct (34.0-46.0) % RDW (11.5-15.5) % Plt Count (150-450) k/uL Lymphocytes # (1.0-4.8) k/uL PT (9.0-12.0) sec INR (<1.2) APTT (22.0-30.0) sec ABG pCO2 (35-45) mmHg ABG pO2 (83-108) mmHg ABG HCO3 (21-25) mmol/L ABG Total CO2 (19-24) mmol/L ABG O2 Saturation (94-97) % Creatinine (0.52-1.04) mg/dL Glucose (74-99) mg/dL POC Glucose (mg/dL) 127 H 141 H 136 H (75-99) mg/dL Calcium (8.4-10.2) mg/dL Total Protein (6.3-8.2) g/dL Albumin (3.5-5.0) g/dL Crossmatch 07/12/21 07/12/21 07/12/21 Range/Units 21:20 21:53 22:56 RBC 2.73 L (3.80-5.40) m/uL Hgb 8.1 L (11.4-16.0) gm/dL Hct 24.7 L (34.0-46.0) % RDW 16.3 H (11.5-15.5) % Plt Count 123 L (150-450) k/uL Lymphocytes # 0.4 L (1.0-4.8) k/uL PT (9.0-12.0) sec INR (<1.2) APTT (22.0-30.0) sec ABG pCO2 (35-45) mmHg ABG pO2 (83-108) mmHg ABG HCO3 (21-25) mmol/L ABG Total CO2 (19-24) mmol/L ABG O2 Saturation (94-97) % Creatinine (0.52-1.04) mg/dL Glucose (74-99) mg/dL POC Glucose (mg/dL) 117 H 114 H (75-99) mg/dL Calcium (8.4-10.2) mg/dL Total Protein (6.3-8.2) g/dL Albumin (3.5-5.0) g/dL Crossmatch 07/13/21 07/13/21 07/13/21 Range/Units 00:12 01:00 01:58 RBC (3.80-5.40) m/uL Hgb (11.4-16.0) gm/dL Hct (34.0-46.0) % RDW (11.5-15.5) % Plt Count (150-450) k/uL Lymphocytes # (1.0-4.8) k/uL PT (9.0-12.0) sec INR (<1.2) APTT (22.0-30.0) sec ABG pCO2 (35-45) mmHg ABG pO2 (83-108) mmHg ABG HCO3 (21-25) mmol/L ABG Total CO2 (19-24) mmol/L ABG O2 Saturation (94-97) % Creatinine (0.52-1.04) mg/dL Glucose (74-99) mg/dL POC Glucose (mg/dL) 132 H 145 H 145 H (75-99) mg/dL Calcium (8.4-10.2) mg/dL Total Protein (6.3-8.2) g/dL Albumin (3.5-5.0) g/dL Crossmatch 07/13/21 07/13/21 07/13/21 Range/Units 03:14 04:09 04:09 RBC 2.73 L (3.80-5.40) m/uL Hgb 8.0 L (11.4-16.0) gm/dL Hct 24.8 L (34.0-46.0) % RDW 16.6 H (11.5-15.5) % Plt Count 149 L (150-450) k/uL Lymphocytes # 0.7 L (1.0-4.8) k/uL PT (9.0-12.0) sec INR (<1.2) APTT (22.0-30.0) sec ABG pCO2 (35-45) mmHg ABG pO2 (83-108) mmHg ABG HCO3 (21-25) mmol/L ABG Total CO2 (19-24) mmol/L ABG O2 Saturation (94-97) % Creatinine 0.39 L (0.52-1.04) mg/dL Glucose 111 H (74-99) mg/dL POC Glucose (mg/dL) 127 H (75-99) mg/dL Calcium 8.1 L (8.4-10.2) mg/dL Total Protein 4.5 L (6.3-8.2) g/dL Albumin 2.3 L (3.5-5.0) g/dL Crossmatch 07/13/21 07/13/21 07/13/21 Range/Units 04:09 05:00 06:10 RBC (3.80-5.40) m/uL Hgb (11.4-16.0) gm/dL Hct (34.0-46.0) % RDW (11.5-15.5) % Plt Count (150-450) k/uL Lymphocytes # (1.0-4.8) k/uL PT (9.0-12.0) sec INR (<1.2) APTT (22.0-30.0) sec ABG pCO2 (35-45) mmHg ABG pO2 (83-108) mmHg ABG HCO3 (21-25) mmol/L ABG Total CO2 (19-24) mmol/L ABG O2 Saturation (94-97) % Creatinine (0.52-1.04) mg/dL Glucose (74-99) mg/dL POC Glucose (mg/dL) 119 H 106 H 122 H (75-99) mg/dL Calcium (8.4-10.2) mg/dL Total Protein (6.3-8.2) g/dL Albumin (3.5-5.0) g/dL Crossmatch 07/13/21 07/13/21 Range/Units 06:59 07:15 RBC (3.80-5.40) m/uL Hgb (11.4-16.0) gm/dL Hct (34.0-46.0) % RDW (11.5-15.5) % Plt Count (150-450) k/uL Lymphocytes # (1.0-4.8) k/uL PT (9.0-12.0) sec INR (<1.2) APTT (22.0-30.0) sec ABG pCO2 (35-45) mmHg ABG pO2 146 H (83-108) mmHg ABG HCO3 29 H (21-25) mmol/L ABG Total CO2 31 H (19-24) mmol/L ABG O2 Saturation 99.8 H (94-97) % Creatinine (0.52-1.04) mg/dL Glucose (74-99) mg/dL POC Glucose (mg/dL) 126 H (75-99) mg/dL Calcium (8.4-10.2) mg/dL Total Protein (6.3-8.2) g/dL Albumin (3.5-5.0) g/dL Crossmatch Microbiology - Last 24 Hours (Table) 07/08/21 02:02 Blood Culture - Preliminary Blood No Growth after 120 hours - Imaging and Cardiology Chest x-ray: report reviewed, image reviewed Assessment and Plan Assessment: 1. Multivessel coronary artery disease, NSTEMI this admission, status post three-vessel CABG 2. Acute on chronic systolic heart failure, EF 30-35% 3. Bilateral pneumonia with pleural effusions this admission 4. History of cardiomopathy 5. Hypertension 6. Hyperlipidemia, treated, cholesterol 128, LDL 60 7. Uncontrolled insulin-dependent diabetes mellitus with hyperglycemia, hemoglobin AIc 10.2% 8. Current ongoing tobacco abuse 9. Severe COPD with preoperative FEV1 48% of predicted 10. Recent fall from standing with broken foot with non-weight bearing status 11. History of C. difficile 12. Depression 13. Fibromyalgia, chronic pain syndrome, osteoarthritis 14. Recent accidental overdose according to the patient 15. Preoperative normocytic, normochromic anemia, postoperative acute blood loss anemia and thrombocytopenia, expected Plan: 1. Continue ASA, statin, Plavix, beta aixa therapy. Will increase beta aixa therapy as tolerated. Discontinue IV nitro. Will wean IV Primacor. Will add in low-dose Edwar for afterload reduction 2. Continue oral amiodarone for prophylactic prevention of atrial fibrillation 3. Wean and extubate. Encourage incentive spirometry use once extubated. [facility] hodilators per pulmonology 4. Once extubated increase activity as tolerated. PT/OT/cardiac rehab c onsulted 5. Will monitor daily labs and x-rays. Electrolyte replacement per protocol. No transfusion at this point 6. Pain control with current medication regimen. Toradol added 7. Insulin management per primary care service. Patient is an uncontrolled diabetic with preoperative hemoglobin A1c 10.2% 8. Will discontinue [place]al[place] later after Primacor has been discontinued, continue Cordis to continuous CVP monitoring 9. Continue chest tubes for another 24 hours. Will discontinue CHER drain 10. Continue Valencia catheter for another 24 hours for strict accurate intake and output. Daily weights 11. Smoking cessation continues to be encouraged 12. More recommendations to follow Time with Patient: Greater than 30
[2021-07-13] MEDS: HYDROcodone/APAP 5-325MG 1 EACH TAB PO PRN ×4 (08:39→19:07)
[2021-07-13] MEDS: AMIODARONE 200 MG TAB PO SCH ×2 (08:56→20:31)
[2021-07-13] MEDS: ATORVASTATIN 40 MG TAB PO SCH (08:57)
[2021-07-13] MEDS: GABAPENTIN 100 MG CAP PO SCH ×2 (08:57→20:31)
[2021-07-13] MEDS: DULoxetine HCL 30 MG CAPSULE.DR PO SCH (08:57)
[2021-07-13] MEDS: SODIUM CHLORIDE 0.9% 1,000 ML IV SCH ×2 (08:58→19:56)
[2021-07-13] MEDS ORDERED: bisacodyL 10 MG SUPP RECTAL PRN (09:00)
[2021-07-13] MEDS ORDERED: MAGNESIUM HYDROXIDE 2,400 MG/10 ML CUP PO PRN (09:00)
[2021-07-13] MEDS ORDERED: PANTOPRAZOLE 40 MG/10 ML VIAL IVP SCH (09:00)
[2021-07-13] MEDS ORDERED: METOPROLOL TARTRATE 12.5 MG TAB PO SCH (09:00)
[2021-07-13 09:13] LABS: Glucose,Whole Blood 110 mg/dL (75-99)
[2021-07-13] MEDS: MILRINONE-D5W PMX 20 MG in DEXTROSE/WATER 1 100ML.BAG IV SCH (09:28)
[2021-07-13] MEDS ORDERED: METOPROLOL TARTRATE 12.5 MG TAB PO STA (09:59)
[2021-07-13] MEDS ORDERED: FUROSEMIDE 10 MG/ML 2 ML VIAL IV STA (10:00)
[2021-07-13 11:38] LABS: Glucose,Whole Blood 127 mg/dL (75-99)
[2021-07-13 12:45] LABS: Glucose,Whole Blood 126 mg/dL (75-99)
--- NOTE | 2021-07-13 14:30 | P.PN ---
Subjective Progress Note Date: 07/13/21 Principal diagnosis: Status post CABG for severe coronary artery disease, postoperative day #1. This is a 61-year-old female patient who follows with Dr. Marcos is her primary care provider. She has a history of chronic and ongoing tobacco dependence, not on oxygen or inhalers at home, diabetes mellitus, hyperlipidemia. She presented here to the emergency room after sustaining a fall at home. She states she tripped over a box and fell backwards and hitting her back on her walker. The next day she had developed chest tightness and shortness of breath and presented here for the same. His chest x-ray showed evidence of bilateral lower lobe pneumonia and pleural effusion with some mild congestive heart failure. CT angiogram ruled out pulmonary embolism. There is again bilateral lower lobe pneumonias with atelectasis and moderate pleural effusions. Echocardiogram revealed moderate to severely impaired left ventricular systolic function with ejection fraction 30-35%. She was found to have an acute non-ST segment elevation myocardial infarction and had undergone left and a heart catheterization that revealed severe triple-vessel coronary artery disease with chronic total occlusion of the RCA, critical disease involving the circumflex and severe disease involving the mid LAD as well as a distal LAD. She was recommended maximum medical therapy and being evaluated by cardiothoracic surgery. Pulmonary function testing revealed an FEV1 value of 1.17 L which was 48% of predicted. He is seen today in consultation. She is sitting up in a chair at the bedside. Awake and alert in no acute distress. She denies any shortness of breath, cough or congestion. No hemoptysis. He is maintaining O2 saturations in the mid 90s on 2 L/m per nasal cannula. White count 6.3. Hemoglobin 10.9. Sodium 137. Potassium 4.7. Creatinine 0.51. AST 68. ALT 31. Glucose 132. [place] virus not detected. The patient is not vaccinated. Patient was reevaluated today on 07/12/2021, I saw this patient yesterday on consultation, and today she underwent CABG, patient had SY to LAD, SVG to RCA, SVG to obtuse marginal 1. Postoperatively patient was transferred to the ICU, and she was on mechanical ventilation. I was asked to see her again on consultation. She is now on assist control rate of 12 tidal volume is 450, FiO2 is 100% but we changed that to 40%, is also on a PEEP of 5. ABG on 100% FiO2 showed a pO2 of more than 400 pCO2 of 46 pH of 7.43. Patient is still requiring inotropes and pressors, she is on milrinone at 0.2 mcg/kg/m, is also on norepinephrine at 0.02 mcg/kg/m. S x-ray showed no evidence of any significant abnormality. There is satisfactory postoperative chest x-ray with minimal atelectasis, endotracheal tube, median sternal drain and left-sided chest tube are all intact. No evidence of pneumonia and no evidence of effusion, there is possibly a small tiny left apical pneumothorax. And there is also evidence of subcutaneous emphysema over the left chest. Reevaluated today on 07/13, patient is postoperative day #1, she had triple-vessel urinary artery bypass grafting. Did very well overnight, patient was extubated uneventfully, and at present seems to be doing well. She is only on 2 L nasal cannula, and O2 saturations 97%. Chest x-ray is showing minimal bibasilar opacity/atelectasis. Her indwelling tubes and catheters are unchanged. Clinically the patient is doing great, she is not requiring any inotropes or any pressors. A todd is achieving about 500 mL with her incentive spirometer. WBC count is 7.6 hemoglobin is 8. Her electrolytes are normal Objective - Vital Signs Vital signs: Vital Signs Temp 99.3 F 07/13/21 12:00 Pulse 90 07/13/21 13:30 Resp 17 07/13/21 13:30 BP 149/80 07/12/21 06:21 Pulse Ox 97 07/13/21 13:30 Intake & Output 07/12/21 07/13/21 07/13/21 18:59 06:59 18:59 Intake Total 278.065 3734.409 574.861 Output Total 3055 1468 410 Balance -2225.452 -7.591 164.861 Weight 51.3 kg Intake: IV 503 1445.5 403 ACETAMINOPHEN IV (For NPO 100 ) 1,000 mg In Empty Bag 1 bag @ 400 mls/hr IVPB Q6HR [facility] Rx#:[id number] Albumin Human 5% 250 ml 250 250 80 In Empty Bag 1 bag @ 250 mls/hr IVPB Q1HR PRN Rx#: [id number] CO Injectate 330 40 Nitroglycerine 16.5 Pressure bags 99 63 Sodium Chloride 0.9% 1, 200 600 220 000 ml @ 20 mls/hr IV . Q24H [facility] Rx#:[id number] ceFAZolin 2 gm In Sodium 50 Chloride 0.9% 50 ml @ 100 mls/hr IVPB ONCE ONE Rx# :[id number] Intake, IV Titration 16.548 14.909 71.861 Amount Clevidipine Butyrate 25 0 3.034 15.667 mg In Empty Bag 1 bag @ 1 MG/HR 2 mls/hr IV .Q24H [facility] Rx#:[id number] Insulin Regular 100 unit 11.875 2.432 In Sodium Chloride 0.9% 100 ml @ Per Protocol IV .Q0M [facility] Rx#:[id number] Milrinone-D5w Pmx 20 mg 53.762 In Dextrose/Water 1 100ml .bag @ 0.1 MCG/KG/MIN 1. 539 mls/hr IV .Q24H [facility] Rx#:[id number] Norepinephrine 4 mg In 16.548 Sodium Chloride 0.9% 250 ml @ 0.05 MCG/KG/MIN 9. 773 mls/hr IV .Q24H [facility] Rx#:[id number] Oral 100 Blood Product 310 Rc As-1 Unit 310 [id number] Output: Chest Tube Drainage 715 405 190 Chest Tube Left Lower 520 100 75 Lateral Chest Chest Tube Lower 95 145 75 Mediastinal Chest Tube Right Lower 100 160 40 Lateral Chest Gastric Drainage 300 Drainage 30 30 50 Right Calf 30 30 50 Urine 810 583 170 Oral Regurgitation 150 Estimated Blood Loss 1500 Other: Voiding Method Indwelling Catheter Indwelling Catheter ABP, PAP, CO, CI - Last Documented Arterial Blood Pressure 92/43 Pulmonary Artery Pressure 26/10 Cardiac Output 4.3 Cardiac Index 2.8 - Exam GENERAL EXAM: Revealed a 61-year-old female, on 2 L nasal cannula, sitting in bed, in no distress. HEAD: Normocephalic. Atraumatic. HEENT: PERRLA, EOMI, anicteric, no neck masses, no JVD. CHEST: No chest wall deformity. LUNGS: Chest tube and mediastinal tube noted, symmetrical chest expansion. Fine crackles at the bases.. CVS: S1 and S2 normal , positive pericardial rub noted. ABDOMEN: Soft nontender no megaly no rebound. SKIN: No rashes CENTRAL NERVOUS SYSTEM: Alert and oriented 3 focal deficits. Psychiatric: Normal mood affect and normal mental status examination. EXTREMITIES: No clubbing edema or cyanosis, good pulses bilaterally. - Labs CBC & Chem 7: 07/13/21 04:09 07/13/21 04:09 Labs: Abnormal Lab Results - Last 24 Hours (Table) 07/11/21 07/12/21 07/12/21 Range/Units 15:40 16:06 16:08 RBC 2.81 L (3.80-5.40) m/uL Hgb 8.0 L D (11.4-16.0) gm/dL Hct 25.6 L (34.0-46.0) % RDW 16.1 H (11.5-15.5) % Plt Count 140 L (150-450) k/uL Lymphocytes # (1.0-4.8) k/uL PT (9.0-12.0) sec INR (<1.2) APTT (22.0-30.0) sec ABG pCO2 (35-45) mmHg ABG pO2 (83-108) mmHg ABG HCO3 (21-25) mmol/L ABG Total CO2 (19-24) mmol/L ABG O2 Saturation (94-97) % Creatinine (0.52-1.04) mg/dL Glucose (74-99) mg/dL POC Glucose (mg/dL) 109 H (75-99) mg/dL Calcium (8.4-10.2) mg/dL Total Protein (6.3-8.2) g/dL Albumin (3.5-5.0) g/dL Crossmatch See Detail 07/12/21 07/12/21 07/12/21 Range/Units 16:08 16:08 16:45 RBC (3.80-5.40) m/uL Hgb (11.4-16.0) gm/dL Hct (34.0-46.0) % RDW (11.5-15.5) % Plt Count (150-450) k/uL Lymphocytes # (1.0-4.8) k/uL PT 13.9 H (9.0-12.0) sec INR 1.4 H (<1.2) APTT 31.7 H (22.0-30.0) sec ABG pCO2 46 H (35-45) mmHg ABG pO2 >400 H (83-108) mmHg ABG HCO3 30 H (21-25) mmol/L ABG Total CO2 31 H (19-24) mmol/L ABG O2 Saturation 100.0 H (94-97) % Creatinine 0.26 L (0.52-1.04) mg/dL Glucose 100 H (74-99) mg/dL POC Glucose (mg/dL) (75-99) mg/dL Calcium 8.0 L (8.4-10.2) mg/dL Total Protein 3.7 L (6.3-8.2) g/dL Albumin 1.8 L (3.5-5.0) g/dL Crossmatch 07/12/21 07/12/21 07/12/21 Range/Units 18:06 18:29 19:05 RBC 2.90 L (3.80-5.40) m/uL Hgb 8.4 L (11.4-16.0) gm/dL Hct 26.3 L (34.0-46.0) % RDW 16.3 H (11.5-15.5) % Plt Count 133 L (150-450) k/uL Lymphocytes # 0.6 L (1.0-4.8) k/uL PT (9.0-12.0) sec INR (<1.2) APTT (22.0-30.0) sec ABG pCO2 (35-45) mmHg ABG pO2 (83-108) mmHg ABG HCO3 (21-25) mmol/L ABG Total CO2 (19-24) mmol/L ABG O2 Saturation (94-97) % Creatinine (0.52-1.04) mg/dL Glucose (74-99) mg/dL POC Glucose (mg/dL) 113 H 127 H (75-99) mg/dL Calcium (8.4-10.2) mg/dL Total Protein (6.3-8.2) g/dL Albumin (3.5-5.0) g/dL Crossmatch 07/12/21 07/12/21 07/12/21 Range/Units 20:04 20:58 21:20 RBC 2.73 L (3.80-5.40) m/uL Hgb 8.1 L (11.4-16.0) gm/dL Hct 24.7 L (34.0-46.0) % RDW 16.3 H (11.5-15.5) % Plt Count 123 L (150-450) k/uL Lymphocytes # 0.4 L (1.0-4.8) k/uL PT (9.0-12.0) sec INR (<1.2) APTT (22.0-30.0) sec ABG pCO2 (35-45) mmHg ABG pO2 (83-108) mmHg ABG HCO3 (21-25) mmol/L ABG Total CO2 (19-24) mmol/L ABG O2 Saturation (94-97) % Creatinine (0.52-1.04) mg/dL Glucose (74-99) mg/dL POC Glucose (mg/dL) 141 H 136 H (75-99) mg/dL Calcium (8.4-10.2) mg/dL Total Protein (6.3-8.2) g/dL Albumin (3.5-5.0) g/dL Crossmatch 07/12/21 07/12/21 07/13/21 Range/Units 21:53 22:56 00:12 RBC (3.80-5.40) m/uL Hgb (11.4-16.0) gm/dL Hct (34.0-46.0) % RDW (11.5-15.5) % Plt Count (150-450) k/uL Lymphocytes # (1.0-4.8) k/uL PT (9.0-12.0) sec INR (<1.2) APTT (22.0-30.0) sec ABG pCO2 (35-45) mmHg ABG pO2 (83-108) mmHg ABG HCO3 (21-25) mmol/L ABG Total CO2 (19-24) mmol/L ABG O2 Saturation (94-97) % Creatinine (0.52-1.04) mg/dL Glucose (74-99) mg/dL POC Glucose (mg/dL) 117 H 114 H 132 H (75-99) mg/dL Calcium (8.4-10.2) mg/dL Total Protein (6.3-8.2) g/dL Albumin (3.5-5.0) g/dL Crossmatch 07/13/21 07/13/21 07/13/21 Range/Units 01:00 01:58 03:14 RBC (3.80-5.40) m/uL Hgb (11.4-16.0) gm/dL Hct (34.0-46.0) % RDW (11.5-15.5) % Plt Count (150-450) k/uL Lymphocytes # (1.0-4.8) k/uL PT (9.0-12.0) sec INR (<1.2) APTT (22.0-30.0) sec ABG pCO2 (35-45) mmHg ABG pO2 (83-108) mmHg ABG HCO3 (21-25) mmol/L ABG Total CO2 (19-24) mmol/L ABG O2 Saturation (94-97) % Creatinine (0.52-1.04) mg/dL Glucose (74-99) mg/dL POC Glucose (mg/dL) 145 H 145 H 127 H (75-99) mg/dL Calcium (8.4-10.2) mg/dL Total Protein (6.3-8.2) g/dL Albumin (3.5-5.0) g/dL Crossmatch 07/13/21 07/13/21 07/13/21 Range/Units 04:09 04:09 04:09 RBC 2.73 L (3.80-5.40) m/uL Hgb 8.0 L (11.4-16.0) gm/dL Hct 24.8 L (34.0-46.0) % RDW 16.6 H (11.5-15.5) % Plt Count 149 L (150-450) k/uL Lymphocytes # 0.7 L (1.0-4.8) k/uL PT (9.0-12.0) sec INR (<1.2) APTT (22.0-30.0) sec ABG pCO2 (35-45) mmHg ABG pO2 (83-108) mmHg ABG HCO3 (21-25) mmol/L ABG Total CO2 (19-24) mmol/L ABG O2 Saturation (94-97) % Creatinine 0.39 L (0.52-1.04) mg/dL Glucose 111 H (74-99) mg/dL POC Glucose (mg/dL) 119 H (75-99) mg/dL Calcium 8.1 L (8.4-10.2) mg/dL Total Protein 4.5 L (6.3-8.2) g/dL Albumin 2.3 L (3.5-5.0) g/dL Crossmatch 07/13/21 07/13/21 07/13/21 Range/Units 05:00 06:10 06:59 RBC (3.80-5.40) m/uL Hgb (11.4-16.0) gm/dL Hct (34.0-46.0) % RDW (11.5-15.5) % Plt Count (150-450) k/uL Lymphocytes # (1.0-4.8) k/uL PT (9.0-12.0) sec INR (<1.2) APTT (22.0-30.0) sec ABG pCO2 (35-45) mmHg ABG pO2 (83-108) mmHg ABG HCO3 (21-25) mmol/L ABG Total CO2 (19-24) mmol/L ABG O2 Saturation (94-97) % Creatinine (0.52-1.04) mg/dL Glucose (74-99) mg/dL POC Glucose (mg/dL) 106 H 122 H 126 H (75-99) mg/dL Calcium (8.4-10.2) mg/dL Total Protein (6.3-8.2) g/dL Albumin (3.5-5.0) g/dL Crossmatch 07/13/21 07/13/21 07/13/21 Range/Units 07:15 09:11 11:36 RBC (3.80-5.40) m/uL Hgb (11.4-16.0) gm/dL Hct (34.0-46.0) % RDW (11.5-15.5) % Plt Count (150-450) k/uL Lymphocytes # (1.0-4.8) k/uL PT (9.0-12.0) sec INR (<1.2) APTT (22.0-30.0) sec ABG pCO2 (35-45) mmHg ABG pO2 146 H (83-108) mmHg ABG HCO3 29 H (21-25) mmol/L ABG Total CO2 31 H (19-24) mmol/L ABG O2 Saturation 99.8 H (94-97) % Creatinine (0.52-1.04) mg/dL Glucose (74-99) mg/dL POC Glucose (mg/dL) 110 H 127 H (75-99) mg/dL Calcium (8.4-10.2) mg/dL Total Protein (6.3-8.2) g/dL Albumin (3.5-5.0) g/dL Crossmatch 07/13/21 Range/Units 12:43 RBC (3.80-5.40) m/uL Hgb (11.4-16.0) gm/dL Hct (34.0-46.0) % RDW (11.5-15.5) % Plt Count (150-450) k/uL Lymphocytes # (1.0-4.8) k/uL PT (9.0-12.0) sec INR (<1.2) APTT (22.0-30.0) sec ABG pCO2 (35-45) mmHg ABG pO2 (83-108) mmHg ABG HCO3 (21-25) mmol/L ABG Total CO2 (19-24) mmol/L ABG O2 Saturation (94-97) % Creatinine (0.52-1.04) mg/dL Glucose (74-99) mg/dL POC Glucose (mg/dL) 126 H (75-99) mg/dL Calcium (8.4-10.2) mg/dL Total Protein (6.3-8.2) g/dL Albumin (3.5-5.0) g/dL Crossmatch Microbiology - Last 24 Hours (Table) 07/08/21 02:02 Blood Culture - Preliminary Blood No Growth after 120 hours Assessment and Plan Assessment: Impression: Status post CABG, postoperative day #1 Acute non-ST elevation myocardial infarction and triple vessel coronary artery disease Severe chronic obstructive pulmonary lung disease FEV1 of 48% Tobacco dependence syndrome. Moderate LV dysfunction with ejection fraction of 50-55% Type 2 diabetes Benign essential hypertension Postoperative basilar atelectasis, expected. Recommendation: Continue beta blockers Plavix that an aspirin Continue oral amiodarone. Continue incentive spirometry. Continue pain control management. Discontinue unnecessary catheters or tubes. Counseled regarding smoking cessation. We will continue to follow. Time with Patient: Less than 30
[2021-07-13 14:37] LABS: Glucose,Whole Blood 111 mg/dL (75-99)
[2021-07-13 15:54] LABS: Glucose,Whole Blood 117 mg/dL (75-99)
[2021-07-13 16:40] LABS: Glucose,Whole Blood 123 mg/dL (75-99)
[2021-07-13 17:06] LABS: Glucose,Whole Blood 125 mg/dL (75-99)
[2021-07-13] MEDS: KETOROLAC 30 MG/ML 1 ML VIAL IVP PRN (17:38)
[2021-07-13 18:41] LABS: Glucose,Whole Blood 124 mg/dL (75-99)
[2021-07-13] MEDS: CLEVIDIPINE BUTYRATE 25 MG in EMPTY BAG 1 BAG IV SCH (19:57)
[2021-07-13 20:31] LABS: Glucose,Whole Blood 122 mg/dL (75-99)
[2021-07-13] MEDS: METOPROLOL TARTRATE 12.5 MG TAB PO SCH (20:31)
[2021-07-13] MEDS: SENNOSIDES-DOCUSATE SODIUM 1 EACH TAB PO SCH (20:31)
[2021-07-13] MEDS ORDERED: METOPROLOL TARTRATE 25 MG TAB PO SCH (21:00)
[2021-07-13] MEDS: ALBUMIN HUMAN 5% 250 ML in EMPTY BAG 1 BAG IVPB SCH ×2 (21:19→22:26)
[2021-07-13 22:08] LABS: Glucose,Whole Blood 135 mg/dL (75-99)
[2021-07-14] MEDS: HEPARIN SODIUM,PORCINE/PF 5,000 UNIT/0.5 ML SYRINGE SQ SCH ×3 (00:12→16:43)
[2021-07-14] MEDS: KETOROLAC 30 MG/ML 1 ML VIAL IVP PRN ×3 (00:12→20:46)
[2021-07-14 00:21] LABS: Glucose,Whole Blood 142 mg/dL (75-99)
[2021-07-14 01:18] LABS: Glucose,Whole Blood 144 mg/dL (75-99)
[2021-07-14 02:03] LABS: Glucose,Whole Blood 146 mg/dL (75-99)
[2021-07-14 03:12] LABS: Glucose,Whole Blood 133 mg/dL (75-99)
[2021-07-14 05:01] LABS: Glucose,Whole Blood 144 mg/dL (75-99)
[2021-07-14] MEDS: HYDROcodone/APAP 5-325MG 1 EACH TAB PO PRN (05:08)
[2021-07-14 05:35] LABS: Anisocytosis Slight; Basophils % (A) 0 %; Eosinophils # (A) 0.2 k/uL (0-0.7); Eosinophils % (A) 4 %; HCT 21.2 % (34.0-46.0); Hypochromasia Slight; Lymphocytes # (A) 0.9 k/uL (1.0-4.8); Lymphocytes % (A) 15 %; MCH 29.5 pg (25.0-35.0); MCHC 32.1 g/dL (31.0-37.0); MCV 91.9 fL (80.0-100.0); Mean Platelet Volume 10.2; Monocytes # (A) 0.4 k/uL (0-1.0); Monocytes % (A) 7 %; Neutrophils # (A) 4.3 k/uL (1.3-7.7); Neutrophils % (A) 72 %; Platelet Count 113 k/uL (150-450); RBC 2.31 m/uL (3.80-5.40); RDW 16.7 % (11.5-15.5)
[2021-07-14 05:43] LABS: Ionized Calcium 4.9 mg/dL (4.5-5.3)
[2021-07-14 05:44] LABS: HGB 6.8 gm/dL (11.4-16.0)
[2021-07-14 06:04] LABS: ALT 28 U/L (4-34); AST 114 U/L (14-36); African American GFR (CKD) >90 (>60 ml/min/1.73 sqM); Albumin 2.6 g/dL (3.5-5.0); Alkaline Phosphatase 80 U/L (38-126); Anion Gap 3 mmol/L; Blood Urea Nitrogen 22 mg/dL (7-17); Calcium 8.1 mg/dL (8.4-10.2); Carbon Dioxide 29 mmol/L (22-30); Chloride 107 mmol/L (98-107); Glucose 128 mg/dL (74-99); Non-African American GFR(CKD) 81 (>60 ml/min/1.73 sqM); Sodium 139 mmol/L (137-145); Total Bilirubin 0.7 mg/dL (0.2-1.3); Total Protein 4.6 g/dL (6.3-8.2)
[2021-07-14] MEDS ORDERED: ALBUMIN HUMAN 5% 250 ML IVPB ONE ×2 (06:05→17:49)
[2021-07-14 06:19] LABS: Glucose,Whole Blood 125 mg/dL (75-99)
--- NOTE | 2021-07-14 06:26 | P.PN ---
Subjective Progress Note Date: 07/14/21 Principal diagnosis: Acute non-ST patient myocardial infarction/severe CAD The patient is a 61-year-old female patient was diabetes and smoking and also hypertension and dyslipidemia who was admitted to the hospital with a chest discomfort and she was ruled in for acute non-ST patient myocardial infarction. The troponin came in to be abnormal. EKG showed ST changes concerning for ischemia. The echo showed inverted only function was EF around 30-35% with evidence of wall motion abnormalities in the inferolateral segments concerning for severe CAD. For that reason she underwent a heart catheterization that revealed severe triple-vessel CAD. Cardiothoracic surgery consult was placed and the patient underwent yesterday CABG 3 with a SY to LAD and SVG to LCx as well as SVG to RCA. The patient was seen this morning. She is sitting in chair. The BP is marginal, I would suggest giving her albumin. The CXR was reviewed. Objective - Vital Signs Vital signs: Vital Signs Temp 98.5 F 07/14/21 00:00 Pulse 70 07/14/21 06:00 Resp 25 H 07/14/21 06:00 BP 96/59 07/14/21 01:30 Pulse Ox 97 07/14/21 06:00 Intake & Output 07/13/21 07/13/21 07/14/21 06:59 18:59 06:59 Intake Total 1460.409 756.427 664.183 Output Total 1468 675 315 Balance -7.591 81.427 349.183 Weight 51.3 kg 52.3 kg Intake: IV 1445.5 583 420 ACETAMINOPHEN IV (For NPO 100 ) 1,000 mg In Empty Bag 1 bag @ 400 mls/hr IVPB Q6HR [facility] Rx#:[id number] Albumin Human 5% 250 ml 250 80 In Empty Bag 1 bag @ 250 mls/hr IVPB Q1HR [facility] Rx#: [id number] CO Injectate 330 40 Nitroglycerine 16.5 Pressure bags 99 93 60 Sodium Chloride 0.9% 1, 600 370 360 000 ml @ 20 mls/hr IV . Q24H [facility] Rx#:[id number] ceFAZolin 2 gm In Sodium 50 Chloride 0.9% 50 ml @ 100 mls/hr IVPB ONCE ONE Rx# :[id number] Intake, IV Titration 14.909 73.427 4.183 Amount Clevidipine Butyrate 25 3.034 15.667 mg In Empty Bag 1 bag @ 1 MG/HR 2 mls/hr IV .Q24H [facility] Rx#:[id number] Insulin Regular 100 unit 11.875 3.998 4.183 In Sodium Chloride 0.9% 100 ml @ Per Protocol IV .Q0M [facility] Rx#:[id number] Milrinone-D5w Pmx 20 mg 53.762 In Dextrose/Water 1 100ml .bag @ 0.1 MCG/KG/MIN 1. 539 mls/hr IV .Q24H [facility] Rx#:[id number] Oral 100 240 Output: Chest Tube Drainage 405 360 140 Chest Tube Left Lower 100 115 50 Lateral Chest Chest Tube Lower 145 150 30 Mediastinal Chest Tube Right Lower 160 95 60 Lateral Chest Gastric Drainage 300 Drainage 30 50 Right Calf 30 50 Urine 583 265 175 Oral Regurgitation 150 Other: Voiding Method Indwelling Catheter Indwelling Catheter Indwelling Catheter ABP, PAP, CO, CI - Last Documented Arterial Blood Pressure 80/29 Pulmonary Artery Pressure 26/10 Cardiac Output 4.3 Cardiac Index 2.8 - Constitutional General appearance: Present: no acute distress - Respiratory Respiratory: bilateral: diminished - Cardiovascular Rhythm: regular - Labs CBC & Chem 7: 07/14/21 05:00 07/14/21 05:00 Labs: Abnormal Lab Results - Last 24 Hours (Table) 07/11/21 07/13/21 07/13/21 Range/Units 15:40 06:59 07:15 RBC (3.80-5.40) m/uL Hgb (11.4-16.0) gm/dL Hct (34.0-46.0) % RDW (11.5-15.5) % Plt Count (150-450) k/uL Lymphocytes # (1.0-4.8) k/uL ABG pO2 146 H (83-108) mmHg ABG HCO3 29 H (21-25) mmol/L ABG Total CO2 31 H (19-24) mmol/L ABG O2 Saturation 99.8 H (94-97) % BUN (7-17) mg/dL Glucose (74-99) mg/dL POC Glucose (mg/dL) 126 H (75-99) mg/dL Calcium (8.4-10.2) mg/dL AST (14-36) U/L Total Protein (6.3-8.2) g/dL Albumin (3.5-5.0) g/dL Crossmatch See Detail 07/13/21 07/13/21 07/13/21 Range/Units 09:11 11:36 12:43 RBC (3.80-5.40) m/uL Hgb (11.4-16.0) gm/dL Hct (34.0-46.0) % RDW (11.5-15.5) % Plt Count (150-450) k/uL Lymphocytes # (1.0-4.8) k/uL ABG pO2 (83-108) mmHg ABG HCO3 (21-25) mmol/L ABG Total CO2 (19-24) mmol/L ABG O2 Saturation (94-97) % BUN (7-17) mg/dL Glucose (74-99) mg/dL POC Glucose (mg/dL) 110 H 127 H 126 H (75-99) mg/dL Calcium (8.4-10.2) mg/dL AST (14-36) U/L Total Protein (6.3-8.2) g/dL Albumin (3.5-5.0) g/dL Crossmatch 07/13/21 07/13/21 07/13/21 Range/Units 14:36 15:52 16:38 RBC (3.80-5.40) m/uL Hgb (11.4-16.0) gm/dL Hct (34.0-46.0) % RDW (11.5-15.5) % Plt Count (150-450) k/uL Lymphocytes # (1.0-4.8) k/uL ABG pO2 (83-108) mmHg ABG HCO3 (21-25) mmol/L ABG Total CO2 (19-24) mmol/L ABG O2 Saturation (94-97) % BUN (7-17) mg/dL Glucose (74-99) mg/dL POC Glucose (mg/dL) 111 H 117 H 123 H (75-99) mg/dL Calcium (8.4-10.2) mg/dL AST (14-36) U/L Total Protein (6.3-8.2) g/dL Albumin (3.5-5.0) g/dL Crossmatch 07/13/21 07/13/21 07/13/21 Range/Units 17:05 18:39 20:30 RBC (3.80-5.40) m/uL Hgb (11.4-16.0) gm/dL Hct (34.0-46.0) % RDW (11.5-15.5) % Plt Count (150-450) k/uL Lymphocytes # (1.0-4.8) k/uL ABG pO2 (83-108) mmHg ABG HCO3 (21-25) mmol/L ABG Total CO2 (19-24) mmol/L ABG O2 Saturation (94-97) % BUN (7-17) mg/dL Glucose (74-99) mg/dL POC Glucose (mg/dL) 125 H 124 H 122 H (75-99) mg/dL Calcium (8.4-10.2) mg/dL AST (14-36) U/L Total Protein (6.3-8.2) g/dL Albumin (3.5-5.0) g/dL Crossmatch 07/13/21 07/14/21 07/14/21 Range/Units 22:06 00:19 01:16 RBC (3.80-5.40) m/uL Hgb (11.4-16.0) gm/dL Hct (34.0-46.0) % RDW (11.5-15.5) % Plt Count (150-450) k/uL Lymphocytes # (1.0-4.8) k/uL ABG pO2 (83-108) mmHg ABG HCO3 (21-25) mmol/L ABG Total CO2 (19-24) mmol/L ABG O2 Saturation (94-97) % BUN (7-17) mg/dL Glucose (74-99) mg/dL POC Glucose (mg/dL) 135 H 142 H 144 H (75-99) mg/dL Calcium (8.4-10.2) mg/dL AST (14-36) U/L Total Protein (6.3-8.2) g/dL Albumin (3.5-5.0) g/dL Crossmatch 07/14/21 07/14/21 07/14/21 Range/Units 02:02 03:11 05:00 RBC 2.31 L (3.80-5.40) m/uL Hgb 6.8 L* (11.4-16.0) gm/dL Hct 21.2 L (34.0-46.0) % RDW 16.7 H (11.5-15.5) % Plt Count 113 L (150-450) k/uL Lymphocytes # 0.9 L (1.0-4.8) k/uL ABG pO2 (83-108) mmHg ABG HCO3 (21-25) mmol/L ABG Total CO2 (19-24) mmol/L ABG O2 Saturation (94-97) % BUN (7-17) mg/dL Glucose (74-99) mg/dL POC Glucose (mg/dL) 146 H 133 H (75-99) mg/dL Calcium (8.4-10.2) mg/dL AST (14-36) U/L Total Protein (6.3-8.2) g/dL Albumin (3.5-5.0) g/dL Crossmatch 07/14/21 07/14/21 07/14/21 Range/Units 05:00 05:00 06:17 RBC (3.80-5.40) m/uL Hgb (11.4-16.0) gm/dL Hct (34.0-46.0) % RDW (11.5-15.5) % Plt Count (150-450) k/uL Lymphocytes # (1.0-4.8) k/uL ABG pO2 (83-108) mmHg ABG HCO3 (21-25) mmol/L ABG Total CO2 (19-24) mmol/L ABG O2 Saturation (94-97) % BUN 22 H (7-17) mg/dL Glucose 128 H (74-99) mg/dL POC Glucose (mg/dL) 144 H 125 H (75-99) mg/dL Calcium 8.1 L (8.4-10.2) mg/dL AST 114 H (14-36) U/L Total Protein 4.6 L (6.3-8.2) g/dL Albumin 2.6 L (3.5-5.0) g/dL Crossmatch Microbiology - Last 24 Hours (Table) 07/08/21 02:02 Blood Culture - Final Blood No Growth after 144 hours Assessment and Plan Assessment: Assessment #1 acute non-ST elevation myocardial infarction #2 severe ischemic cardiomyopathy #3 severe triple-vessel CAD and status post CABG #4 multiple comorbidities including smoking and diabetes and hypertension and dyslipidemia Plan #1 continue the current medical regimen #2 Suggest giving the pt albumin
[2021-07-14] MEDS: PANTOPRAZOLE 40 MG TABLET PO SCH (06:54)
[2021-07-14 07:01] LABS: Glucose,Whole Blood 126 mg/dL (75-99)
--- NOTE | 2021-07-14 07:09 | XR ---
EXAMINATION TYPE: XR chest 1V portable DATE OF EXAM: 07/14/2021 COMPARISON: Chest x-ray 13 July 2021 HISTORY: Chest tube, extubated TECHNIQUE: Single frontal view of the chest is obtained. FINDINGS: Left-sided chest tube, right-sided chest tube, right jugular central venous sheath, median sternal drain are overlying appropriate positions. Endotracheal tube and NG tube have been removed. Central venous catheter has been removed. No evident pneumothorax. Patient is post median sternotomy and left atrial appendage clip placement. Cardiac mediastinal silhouette appears prominently, bibasil ar increased attenuation. There are overlying artifacts. IMPRESSION: Interval extubation. Probable basilar atelectasis, possible associated effusion, difficu lt to exclude pneumonia.
[2021-07-14] MEDS ORDERED: CALCIUM GLUCONATE 1 GM in SODIUM CHLORIDE 0.9% 100 ML IVPB ONE (07:20)
[2021-07-14] MEDS: IPRATROPIUM-ALBUTEROL 3 ML NEB INHALATION SCH ×4 (07:57→21:53)
[2021-07-14] MEDS: SYMBICORT 160-4.5 MCG INHALER INHALATION SCH ×2 (07:57→21:53)
[2021-07-14 08:10] LABS: Glucose,Whole Blood 137 mg/dL (75-99)
[2021-07-14] MEDS: CLOPIDOGREL 75 MG TAB PO SCH (08:25)
[2021-07-14] MEDS: ASPIRIN 325 MG TAB PO SCH (08:25)
[2021-07-14] MEDS: ATORVASTATIN 40 MG TAB PO SCH (08:25)
[2021-07-14] MEDS: AMIODARONE 200 MG TAB PO SCH ×2 (08:25→20:54)
--- NOTE | 2021-07-14 08:34 | P.PN ---
Subjective Progress Note Date: 07/14/21 Principal diagnosis: Multivessel coronary artery disease, NSTEMI this admission, acute on chronic systolic heart failure, bilateral pneumonia with pleural effusions this admission. Previous medical history of cardiomopathy, hypertension, hyperlipidemia, uncontrolled insulin-dependent diabetes mellitus with hyperglycemia, osteoarthritis, insomnia, degenerative disc disease, pneumonia, C. difficile, depression, fibromyalgia, chronic pain syndrome, current ongoing tobacco abuse, COPD, recent fall from standing with broken foot with non-weight bearing status, recent accidental overdose according to the patient, preoperative normocytic normochromic anemia POD #2 triple vessel coronary artery bypass grafting using the left internal mammary artery sequentially in a [id number] fashion to the mid left anterior descending artery, then in an end to side fashion to the distal left anterior descending artery, reverse saphenous vein graft from the aorta to the first obtuse marginal artery, reverse saphenous vein graft from the aorta to the right coronary artery after the takeoff of the early arising posterior descending artery, exclusion of the left atrial appendage using a 35 mm AtriClip, sternal plating using the [employer] system, harvesting of the right greater saphenous vein from the groin to above the ankle level, intraoperative transesophageal echocardiogram and epi-aortic scanning, intraoperative graft flow measurements using the [employer] system Postoperative acute blood loss anemia and thrombocytopenia, expected outcomes given cardiopulmonary bypass pump and hemodilution as well as preoperative anemia The patient was seen and examined this morning in the intensive care unit sitting up in the recliner in no acute distress. She was successfully extubate d yesterday morning at 750. She does complain of pain in her chest tube sites as well as her left lower extremity, denies shortness of breath. Remains in sinus rhythm with marginal blood pressure on no inotropes or pressors. Right internal jugular Cordis, right radial arterial line, mediastinal/right/left pleural chest tubes all remain. Urine output marginal. Hemoglobin 6.8 this morning, was 8.0 yesterday. Objective - Vital Signs Vital signs: Vital Signs Temp 98.5 F 07/14/21 00:00 Pulse 71 07/14/21 08:10 Resp 15 07/14/21 07:00 BP 96/59 07/14/21 01:30 Pulse Ox 99 07/14/21 07:00 Intake & Output 12/10/21 12/11/21 12/11/21 18:59 06:59 18:59 Intake Total 756.427 664.183 36 Output Total 675 315 10 Balance 81.427 349.183 26 Weight 51.3 kg 52.3 kg Intake: IV 583 420 36 Albumin Human 5% 250 ml 80 In Empty Bag 1 bag @ 250 mls/hr IVPB Q1HR PRN Rx#: [id number] CO Injectate 40 Pressure bags 93 60 6 Sodium Chloride 0.9% 1, 370 360 30 000 ml @ 20 mls/hr IV . Q24H [facility] Rx#:[id number] Intake, IV Titration 73.427 4.183 Amount Clevidipine Butyrate 25 15.667 mg In Empty Bag 1 bag @ 1 MG/HR 2 mls/hr IV .Q24H [facility] Rx#:[id number] Insulin Regular 100 unit 3.998 4.183 In Sodium Chloride 0.9% 100 ml @ Per Protocol IV .Q0M [facility] Rx#:[id number] Milrinone-D5w Pmx 20 mg 53.762 In Dextrose/Water 1 100ml .bag @ 0.1 MCG/KG/MIN 1. 539 mls/hr IV .Q24H [facility] Rx#:[id number] Oral 100 240 Output: Chest Tube Drainage 360 140 Chest Tube Left Lower 115 50 Lateral Chest Chest Tube Lower 150 30 Mediastinal Chest Tube Right Lower 95 60 Lateral Chest Drainage 50 Right Calf 50 Urine 265 175 10 Other: Voiding Method Indwelling Catheter Indwelling Catheter ABP, PAP, CO, CI - Last Documented Arterial Blood Pressure 107/45 Pulmonary Artery Pressure 26/10 Cardiac Output 4.3 Cardiac Index 2.8 - Exam CONSTITUTIONAL: Appears comfortable, cooperative, no acute distress RESPIRATORY: Lungs sounds diminished bilaterally. Respirations even, nonlabored. Currently on room air with oxygen education in the mid 90s. Able to achieve 500 mL on her incentive spirometry. Weak cough CARDIOVASCULAR: S1, S2 present. Regular rate and rhythm, sinus rhythm on telemetry. Sternum stable. Palpable peripheral pulses bilaterally except where cast present to left lower extremity. Trace generalized edema present. No calf pain or tenderness noted. Heart hugger, antiembolism stockings, SCDs present. GASTROINTESTINAL: Abdomen soft, nontender, nondistended. Hypoactive bowel sounds present 4 quadrants. Tolerating minimal diet, denies flatus GENITOURINARY: Valencia present draining clear, yellow urine. Output overnight 10-25 mL per hour, 440 mL in the last 24 hours INTEGUMENTARY: Skin is warm and dry with evidence of good perfusion. Anterior chest incision well approximated and covered with dry intact dressing. Right lower extremity EVH site well approximated without redness or drainage. NEUROLOGIC: Cranial nerves II through XII intact MUSKULOSKELETAL: Able to move all extremities, strength equal bilaterally, patient is very weak and unable to bear weight on her left leg due to fracture/cast PSYCHIATRIC: Alert and oriented to person, place, time, following all commands, calm and cooperative INVASIVE LINES AND TUBES: Mediastinal/left/right pleural chest tubes present and connected to wall suction, no air leaks present. Mediastinal tube with 30 mL serosanguineous drainage overnight, 200 mL in the last 24 hours. Left pleural chest tube with 30 mL serosanguineous drainage overnight, 200 mL in the last 24 hours. Right pleural chest tube with 40 mL serosanguineous drainage overnight, 200 mL in the last 24 hours. Atrial epicardial pacemaker wires present, connected to generator, AAI mode with backup rate 60 bpm. Right internal jugular Cordis, right radial arterial line present. - Allied health notes Allied health notes reviewed: nursing - Labs CBC & Chem 7: 07/14/21 05:00 07/14/21 05:00 Labs: Abnormal Lab Results - Last 24 Hours (Table) 07/11/21 07/13/21 07/13/21 Range/Units 15:40 09:11 11:36 RBC (3.80-5.40) m/uL Hgb (11.4-16.0) gm/dL Hct (34.0-46.0) % RDW (11.5-15.5) % Plt Count (150-450) k/uL Lymphocytes # (1.0-4.8) k/uL BUN (7-17) mg/dL Glucose (74-99) mg/dL POC Glucose (mg/dL) 110 H 127 H (75-99) mg/dL Calcium (8.4-10.2) mg/dL AST (14-36) U/L Total Protein (6.3-8.2) g/dL Albumin (3.5-5.0) g/dL Crossmatch See Detail 07/13/21 07/13/21 07/13/21 Range/Units 12:43 14:36 15:52 RBC (3.80-5.40) m/uL Hgb (11.4-16.0) gm/dL Hct (34.0-46.0) % RDW (11.5-15.5) % Plt Count (150-450) k/uL Lymphocytes # (1.0-4.8) k/uL BUN (7-17) mg/dL Glucose (74-99) mg/dL POC Glucose (mg/dL) 126 H 111 H 117 H (75-99) mg/dL Calcium (8.4-10.2) mg/dL AST (14-36) U/L Total Protein (6.3-8.2) g/dL Albumin (3.5-5.0) g/dL Crossmatch 07/13/21 07/13/21 07/13/21 Range/Units 16:38 17:05 18:39 RBC (3.80-5.40) m/uL Hgb (11.4-16.0) gm/dL Hct (34.0-46.0) % RDW (11.5-15.5) % Plt Count (150-450) k/uL Lymphocytes # (1.0-4.8) k/uL BUN (7-17) mg/dL Glucose (74-99) mg/dL POC Glucose (mg/dL) 123 H 125 H 124 H (75-99) mg/dL Calcium (8.4-10.2) mg/dL AST (14-36) U/L Total Protein (6.3-8.2) g/dL Albumin (3.5-5.0) g/dL Crossmatch 07/13/21 07/13/21 07/14/21 Range/Units 20:30 22:06 00:19 RBC (3.80-5.40) m/uL Hgb (11.4-16.0) gm/dL Hct (34.0-46.0) % RDW (11.5-15.5) % Plt Count (150-450) k/uL Lymphocytes # (1.0-4.8) k/uL BUN (7-17) mg/dL Glucose (74-99) mg/dL POC Glucose (mg/dL) 122 H 135 H 142 H (75-99) mg/dL Calcium (8.4-10.2) mg/dL AST (14-36) U/L Total Protein (6.3-8.2) g/dL Albumin (3.5-5.0) g/dL Crossmatch 07/14/21 07/14/21 07/14/21 Range/Units 01:16 02:02 03:11 RBC (3.80-5.40) m/uL Hgb (11.4-16.0) gm/dL Hct (34.0-46.0) % RDW (11.5-15.5) % Plt Count (150-450) k/uL Lymphocytes # (1.0-4.8) k/uL BUN (7-17) mg/dL Glucose (74-99) mg/dL POC Glucose (mg/dL) 144 H 146 H 133 H (75-99) mg/dL Calcium (8.4-10.2) mg/dL AST (14-36) U/L Total Protein (6.3-8.2) g/dL Albumin (3.5-5.0) g/dL Crossmatch 07/14/21 07/14/21 07/14/21 Range/Units 05:00 05:00 05:00 RBC 2.31 L (3.80-5.40) m/uL Hgb 6.8 L* (11.4-16.0) gm/dL Hct 21.2 L (34.0-46.0) % RDW 16.7 H (11.5-15.5) % Plt Count 113 L (150-450) k/uL Lymphocytes # 0.9 L (1.0-4.8) k/uL BUN 22 H (7-17) mg/dL Glucose 128 H (74-99) mg/dL POC Glucose (mg/dL) 144 H (75-99) mg/dL Calcium 8.1 L (8.4-10.2) mg/dL AST 114 H (14-36) U/L Total Protein 4.6 L (6.3-8.2) g/dL Albumin 2.6 L (3.5-5.0) g/dL Crossmatch 07/14/21 07/14/21 07/14/21 Range/Units 06:17 07:00 08:08 RBC (3.80-5.40) m/uL Hgb (11.4-16.0) gm/dL Hct (34.0-46.0) % RDW (11.5-15.5) % Plt Count (150-450) k/uL Lymphocytes # (1.0-4.8) k/uL BUN (7-17) mg/dL Glucose (74-99) mg/dL POC Glucose (mg/dL) 125 H 126 H 137 H (75-99) mg/dL Calcium (8.4-10.2) mg/dL AST (14-36) U/L Total Protein (6.3-8.2) g/dL Albumin (3.5-5.0) g/dL Crossmatch Microbiology - Last 24 Hours (Table) 07/08/21 02:02 Blood Culture - Final Blood No Growth after 144 hours - Imaging and Cardiology Chest x-ray: report reviewed, image reviewed Assessment and Plan Assessment: 1. Multivessel coronary artery disease, NSTEMI this admission, status post three-vessel CABG 2. Acute on chronic systolic heart failure, EF 30-35% 3. Bilateral pneumonia with pleural effusions this admission 4. History of cardiomopathy 5. Hypertension 6. Hyperlipidemia, treated, cholesterol 128, LDL 60 7. Uncontrolled insulin-dependent diabetes mellitus with hyperglycemia, hemoglobin AIc 10.2% 8. Current ongoing tobacco abuse 9. Severe COPD with preoperative FEV1 48% of predicted 10. Recent fall from standing with broken foot with non-weight bearing status 11. History of C. difficile 12. Depression 13. Fibromyalgia, chronic pain syndrome, osteoarthritis 14. Recent accidental overdose according to the patient 15. Preoperative normocytic, normochromic anemia, postoperative acute blood loss anemia and thrombocytopenia, expected Plan: 1. Continue ASA, statin, Plavix, beta aixa therapy. Will increase beta aixa therapy as tolerated. Will add in low-dose Edwar for afterload reduction when able 2. Continue oral amiodarone for prophylactic prevention of atrial fibrillation 3. Encourage incentive spirometry use 10 times every hour while awake. Bronchodilators per pulmonology 4. Increase activity as tolerated. PT/OT/cardiac rehab following. Patient will need rehab at discharge due to challenging ambulation with cast, plan is for [facility] 5. Will monitor daily labs and x-rays. Electrolyte replacement per protocol. Will transfuse 1 unit packed red blood cells 6. Pain control with current medication regimen. Limit narcotics as much as possible 7. Insulin management per primary care service. Patient is an uncontrolled diabetic with preoperative hemoglobin A1c 10.2% 8. Will discontinue mediastinal and right pleural chest tubes, will leave left pleural chest tube for another 24 hours 9. Continue Valencia catheter for another 24 hours for strict accurate intake and output. Daily weights 10. Smoking cessation continues to be encouraged 11. More recommendations to follow Time with Patient: Greater than 30
[2021-07-14] MEDS: DULoxetine HCL 30 MG CAPSULE.DR PO SCH (08:52)
[2021-07-14] MEDS: GABAPENTIN 100 MG CAP PO SCH ×2 (08:52→20:54)
[2021-07-14] MEDS: METOPROLOL TARTRATE 12.5 MG TAB PO SCH (08:53)
[2021-07-14 11:36] LABS: Glucose,Whole Blood 169 mg/dL (75-99)
[2021-07-14] MEDS: INSULIN ASPART (NovoLOG) 100 UNIT/ML VIAL SQ SCH ×3 (11:40→20:55)
[2021-07-14] MEDS: HYDROcodone/APAP 10-325MG 1 EACH TAB PO PRN ×2 (11:40→18:27)
[2021-07-14] MEDS: ALBUMIN HUMAN 5% 250 ML in EMPTY BAG 1 BAG IVPB PRN ×2 (13:18→15:07)
[2021-07-14] MEDS: SODIUM CHLORIDE 0.9% 1,000 ML IV SCH (15:14)
[2021-07-14 16:52] LABS: Glucose,Whole Blood 237 mg/dL (75-99)
[2021-07-14 16:52] LABS: Glucose,Whole Blood 231 mg/dL (75-99)
[2021-07-14 17:46] LABS: Anisocytosis Slight; Basophils % (A) 0 %; Eosinophils # (A) 0.3 k/uL (0-0.7); Eosinophils % (A) 4 %; HCT 27.3 % (34.0-46.0); Hypochromasia Moderate; Lymphocytes % (A) 13 %; MCHC 32.5 g/dL (31.0-37.0); MCV 95.5 fL (80.0-100.0); Mean Platelet Volume 8.3; Monocytes # (A) 0.5 k/uL (0-1.0); Monocytes % (A) 7 %; Neutrophils # (A) 5.3 k/uL (1.3-7.7); Neutrophils % (A) 74 %; Platelet Count 126 k/uL (150-450); RBC 2.86 m/uL (3.80-5.40); RDW 16.4 % (11.5-15.5); WBC 7.1 k/uL (3.8-10.6)
[2021-07-14 17:47] LABS: HGB 8.9 gm/dL (11.4-16.0)
[2021-07-14] MEDS ORDERED: ALBUMIN HUMAN 5% 250 ML in EMPTY BAG 1 BAG IVPB STA (19:05)
[2021-07-14 20:40] LABS: Glucose,Whole Blood 277 mg/dL (75-99)
[2021-07-14] MEDS: SENNOSIDES-DOCUSATE SODIUM 1 EACH TAB PO SCH (20:55)
[2021-07-14] MEDS: NOREPINEPHRINE 4 MG in SODIUM CHLORIDE 0.9% 250 ML IV SCH (23:03)
[2021-07-15] MEDS: HEPARIN SODIUM,PORCINE/PF 5,000 UNIT/0.5 ML SYRINGE SQ SCH ×3 (00:40→16:19)
[2021-07-15] MEDS: HYDROcodone/APAP 10-325MG 1 EACH TAB PO PRN ×4 (00:40→18:52)
[2021-07-15 04:48] LABS: Anisocytosis Slight; Basophils % (A) 0 %; Eosinophils # (A) 0.6 k/uL (0-0.7); Eosinophils % (A) 6 %; HCT 28.5 % (34.0-46.0); HGB 9.2 gm/dL (11.4-16.0); Hypochromasia Moderate; Lymphocytes # (A) 1.2 k/uL (1.0-4.8); Lymphocytes % (A) 14 %; MCH 30.9 pg (25.0-35.0); MCHC 32.2 g/dL (31.0-37.0); MCV 96.1 fL (80.0-100.0); Macrocytosis Slight; Mean Platelet Volume 9.3; Monocytes # (A) 0.5 k/uL (0-1.0); Monocytes % (A) 6 %; Neutrophils # (A) 6.4 k/uL (1.3-7.7); Neutrophils % (A) 72 %; Platelet Count 135 k/uL (150-450); RBC 2.96 m/uL (3.80-5.40); RDW 16.6 % (11.5-15.5)
[2021-07-15 04:52] LABS: Ionized Calcium 4.9 mg/dL (4.5-5.3)
[2021-07-15] MEDS: KETOROLAC 30 MG/ML 1 ML VIAL IVP PRN ×4 (05:04→22:14)
[2021-07-15 05:17] LABS: Albumin 2.7 g/dL (3.5-5.0); Calcium 8.2 mg/dL (8.4-10.2); Magnesium 2.3 mg/dL (1.6-2.3); Potassium 3.9 mmol/L (3.5-5.1); Total Bilirubin 0.8 mg/dL (0.2-1.3); Total Protein 4.8 g/dL (6.3-8.2)
--- NOTE | 2021-07-15 06:08 | XR ---
EXAMINATION TYPE: XR chest 1V portable DATE OF EXAM: 07/15/2021 5:21 AM COMPARISON: Multiple radiographs, with the most recent on 1020. CLINICAL INDICATION:Female, 61 years old with history of Post cardiac surgery; [facility], TECHNIQUE: Frontal view of the chest. FINDINGS: Lungs/Pleura: Lung volumes today's on exam with increased opacities within the right lung base. Evide nce of pneumothorax. Blunting of the costophrenic angles is present. Pulmonary vascularity: Unremarkable. Heart/mediastinum: Cardiomediastinal silhouette is enlarged and stable. Musculoskeletal: No acute osseous pathology. Sternotomy changes are present. Lines/Tubes:Right internal jugular central venous catheter with distal tip at the cavoatrial junction . IMPRESSION: Decreased consolidation changes within the right lung base which may represent represent atelectasis versus developing airspace disease attention on follow-up imaging.
[2021-07-15 06:23] LABS: Glucose,Whole Blood 204 mg/dL (75-99)
[2021-07-15] MEDS: INSULIN ASPART (NovoLOG) 100 UNIT/ML VIAL SQ SCH ×4 (06:31→20:47)
[2021-07-15] MEDS: PANTOPRAZOLE 40 MG TABLET PO SCH (06:31)
[2021-07-15] MEDS: SYMBICORT 160-4.5 MCG INHALER INHALATION SCH ×2 (07:30→19:43)
[2021-07-15] MEDS: IPRATROPIUM-ALBUTEROL 3 ML NEB INHALATION SCH ×4 (07:30→19:43)
--- NOTE | 2021-07-15 07:43 | P.PN ---
Subjective Progress Note Date: 07/15/21 Principal diagnosis: Multivessel coronary artery disease, NSTEMI this admission, acute on chronic systolic heart failure, bilateral pneumonia with pleural effusions this admission. Previous medical history of cardiomopathy, hypertension, hyperlipidemia, uncontrolled insulin-dependent diabetes mellitus with hyperglycemia, osteoarthritis, insomnia, degenerative disc disease, pneumonia, C. difficile, depression, fibromyalgia, chronic pain syndrome, current ongoing tobacco abuse, COPD, recent fall from standing with broken foot with non-weight bearing status, recent accidental overdose according to the patient, preoperative normocytic normochromic anemia POD #3 triple vessel coronary artery bypass grafting using the left internal mammary artery sequentially in a [id number] fashion to the mid left anterior descending artery, then in an end to side fashion to the distal left anterior descending artery, reverse saphenous vein graft from the aorta to the first obtuse marginal artery, reverse saphenous vein graft from the aorta to the right coronary artery after the takeoff of the early arising posterior descending artery, exclusion of the left atrial appendage using a 35 mm AtriClip, sternal plating using the [employer] system, harvesting of the right greater saphenous vein from the groin to above the ankle level, intraoperative transesophageal echocardiogram and epi-aortic scanning, intraoperative graft flow measurements using the [employer] system Postoperative acute blood loss anemia and thrombocytopenia, expected outcomes given cardiopulmonary bypass pump and hemodilution as well as preoperative anemia The patient was seen and examined this morning in the intensive care unit sitting up in the recliner in no acute distress. Continues to complain of pain in her left lower extremity, states postsurgical pain is somewhat better after removal of 2 of 3 chest tubes, denies shortness of breath, complains of lack of sleep at night however with every approach to the patient's room yesterday she appeared to be sleeping. Remains in sinus rhythm. Blood pressure was marginal last night, urine output was low. Patient did receive 1 unit packed red blood cells yesterday for hemoglobin 6.8 with elevation to 8.9, was started on low- dose IV levo with improvement in blood pressure but no significant improvement in urine output. Right internal jugular Cordis, right radial arterial line, left pleural chest tubes all remain. Objective - Vital Signs Vital signs: Vital Signs Temp 98.1 F 07/15/21 04:00 Pulse 72 07/15/21 07:00 Resp 13 07/15/21 07:00 BP 90/61 07/15/21 07:00 Pulse Ox 93 L 07/15/21 07:00 Intake & Output 07/14/21 07/15/21 07/15/21 18:59 06:59 18:59 Intake Total 1392 690.028 276 Output Total 165 285 10 Balance 1227 405.028 266 Weight 54 kg Intake: IV 1082 422 36 Albumin Human 5% 250 ml 750 In Empty Bag 1 bag @ 500 mls/hr IVPB Q1H [facility] Rx#: [id number] Pressure bags 72 72 6 Sodium Chloride 0.9% 1, 260 350 30 000 ml @ 20 mls/hr IV . Q24H [facility] Rx#:[id number] Intake, IV Titration 28.028 Amount Norepinephrine 4 mg In 28.028 Sodium Chloride 0.9% 250 ml @ 0.05 MCG/KG/MIN 9. 963 mls/hr IV .Q24H [facility] Rx#:[id number] Oral 240 Tube Feeding 240 Blood Product 310 Rc As-1 Unit 310 [id number] Output: Chest Tube Drainage 20 120 Chest Tube Left Lower 20 120 Lateral Chest Chest Tube Lower 0 Mediastinal Chest Tube Right Lower 0 Lateral Chest Urine 145 165 10 Other: Voiding Method Indwelling Catheter Indwelling Catheter # Bowel Movements 1 ABP, PAP, CO, CI - Last Documented Arterial Blood Pressure 87/42 Pulmonary Artery Pressure 26/10 Cardiac Output 4.3 Cardiac Index 2.8 - Exam CONSTITUTIONAL: Appears comfortable, cooperative, no acute distress RESPIRATORY: Lungs sounds diminished bilaterally. Respirations even, nonlabored. Currently on 2 L nasal cannula with oxygen saturation 94%. Able to achieve 1000 mL on her incentive spirometry. Strong productive cough CARDIOVASCULAR: S1, S2 present. Regular rate and rhythm, sinus rhythm on telemetry. Sternum stable. Palpable peripheral pulses bilaterally except where cast present to left lower extremity. No edema present. No calf pain or tenderness noted. Heart hugger, antiembolism stockings, SCDs present. GASTROINTESTINAL: Abdomen soft, nontender, nondistended. Active bowel sounds present 4 quadrants. Tolerating diet, positive bowel movement yesterday GENITOURINARY: Valencia present draining clear, yellow urine. Output overnight 10-15 mL per hour, 310 mL in the last 24 hours INTEGUMENTARY: Skin is warm and dry with evidence of good perfusion. Anterior chest incision well approximated and covered with dry intact dressing. Right lower extremity EVH site well approximated without redness or drainage. NEUROLOGIC: Cranial nerves II through XII intact MUSKULOSKELETAL: Able to move all extremities, strength equal bilaterally, patient is very weak and unable to bear weight on her left leg due to fracture/cast PSYCHIATRIC: Alert and oriented to person, place, time, following all commands, calm and cooperative INVASIVE LINES AND TUBES: Left pleural chest tubes present and connected to wall suction, no air leaks present, 50 mL serosanguineous drainage overnight, 100 mL in the last 24 hours. Atrial epicardial pacemaker wires present, connected to generator, AAI mode with backup rate 60 bpm. Right internal jugular Cordis, right radial arterial line present. - Allied health notes Allied health notes reviewed: nursing - Labs CBC & Chem 7: 07/15/21 04:30 07/15/21 04:30 Labs: Abnormal Lab Results - Last 24 Hours (Table) 07/11/21 07/14/21 07/14/21 Range/Units 15:40 08:08 11:34 RBC (3.80-5.40) m/uL Hgb (11.4-16.0) gm/dL Hct (34.0-46.0) % RDW (11.5-15.5) % Plt Count (150-450) k/uL Sodium (137-145) mmol/L BUN (7-17) mg/dL Glucose (74-99) mg/dL POC Glucose (mg/dL) 137 H 169 H (75-99) mg/dL Calcium (8.4-10.2) mg/dL AST (14-36) U/L Total Protein (6.3-8.2) g/dL Albumin (3.5-5.0) g/dL Crossmatch See Detail 07/14/21 07/14/21 07/14/21 Range/Units 16:47 16:49 16:58 RBC 2.86 L (3.80-5.40) m/uL Hgb 8.9 L D (11.4-16.0) gm/dL Hct 27.3 L (34.0-46.0) % RDW 16.4 H (11.5-15.5) % Plt Count 126 L (150-450) k/uL Sodium (137-145) mmol/L BUN (7-17) mg/dL Glucose (74-99) mg/dL POC Glucose (mg/dL) 231 H 237 H (75-99) mg/dL Calcium (8.4-10.2) mg/dL AST (14-36) U/L Total Protein (6.3-8.2) g/dL Albumin (3.5-5.0) g/dL Crossmatch 07/14/21 07/15/21 07/15/21 Range/Units 20:37 04:30 04:30 RBC 2.96 L (3.80-5.40) m/uL Hgb 9.2 L (11.4-16.0) gm/dL Hct 28.5 L (34.0-46.0) % RDW 16.6 H (11.5-15.5) % Plt Count 135 L (150-450) k/uL Sodium 136 L (137-145) mmol/L BUN 29 H (7-17) mg/dL Glucose 193 H (74-99) mg/dL POC Glucose (mg/dL) 277 H (75-99) mg/dL Calcium 8.2 L (8.4-10.2) mg/dL AST 59 H (14-36) U/L Total Protein 4.8 L (6.3-8.2) g/dL Albumin 2.7 L (3.5-5.0) g/dL Crossmatch 07/15/21 Range/Units 06:22 RBC (3.80-5.40) m/uL Hgb (11.4-16.0) gm/dL Hct (34.0-46.0) % RDW (11.5-15.5) % Plt Count (150-450) k/uL Sodium (137-145) mmol/L BUN (7-17) mg/dL Glucose (74-99) mg/dL POC Glucose (mg/dL) 204 H (75-99) mg/dL Calcium (8.4-10.2) mg/dL AST (14-36) U/L Total Protein (6.3-8.2) g/dL Albumin (3.5-5.0) g/dL Crossmatch Microbiology - Last 24 Hours (Table) 07/08/21 02:02 Blood Culture - Final Blood No Growth after 144 hours - Imaging and Cardiology Chest x-ray: report reviewed, image reviewed Assessment and Plan Assessment: 1. Multivessel coronary artery disease, NSTEMI this admission, status post three-vessel CABG 2. Acute on chronic systolic heart failure, EF 30-35% 3. Bilateral pneumonia with pleural effusions this admission 4. History of cardiomopathy 5. Hypertension 6. Hyperlipidemia, treated, cholesterol 128, LDL 60 7. Uncontrolled insulin-dependent diabetes mellitus with hyperglycemia, hemoglobin AIc 10.2% 8. Current ongoing tobacco abuse 9. Severe COPD with preoperative FEV1 48% of predicted 10. Recent fall from standing with broken foot with non-weight bearing status 11. History of C. difficile 12. Depression 13. Fibromyalgia, chronic pain syndrome, osteoarthritis 14. Recent accidental overdose according to the patient 15. Preoperative normocytic, normochromic anemia, postoperative acute blood loss anemia and thrombocytopenia, expected Plan: 1. Continue ASA, statin, Plavix, low dose beta aixa therapy. Wean levo as tolerated, will start midodrine 2. Continue oral amiodarone for prophylactic prevention of atrial fibrillation 3. Encourage incentive spirometry use 10 times every hour while awake. Bronchodilators per pulmonology 4. Increase activity as tolerated. PT/OT/cardiac rehab following. Patient will need rehab at discharge due to challenging ambulation with cast, plan is for [facility] 5. Will monitor daily labs and x-rays. Electrolyte replacement per protocol. No further transfusion. Will give 20 mg IVP lasix today 6. Pain control with current medication regimen. 7. Insulin management per primary care service. Patient is an uncontrolled diabetic with preoperative hemoglobin A1c 10.2% 8. Will discontinue left pleural chest tube 9. Continue Valencia catheter for another 24 hours 10. Strict accurate intake and output. Daily weights 11. Will add melatonin to aid with sleep 12. More recommendations to follow Time with Patient: Greater than 30
[2021-07-15] MEDS ORDERED: POTASSIUM BICARBONATE/CIT AC 20 MEQ TABLET.EFF PO ONE (07:52)
[2021-07-15] MEDS ORDERED: FUROSEMIDE 10 MG/ML 2 ML VIAL IV ONE (08:53)
[2021-07-15] MEDS: METOPROLOL TARTRATE 12.5 MG TAB PO SCH ×2 (09:25→20:46)
[2021-07-15] MEDS: CLOPIDOGREL 75 MG TAB PO SCH (09:25)
[2021-07-15] MEDS: GABAPENTIN 100 MG CAP PO SCH ×2 (09:25→20:46)
[2021-07-15] MEDS: AMIODARONE 200 MG TAB PO SCH ×2 (09:26→20:46)
[2021-07-15] MEDS: ASPIRIN 325 MG TAB PO SCH (09:26)
[2021-07-15] MEDS: ATORVASTATIN 40 MG TAB PO SCH (09:26)
[2021-07-15] MEDS: DULoxetine HCL 30 MG CAPSULE.DR PO SCH (09:26)
--- NOTE | 2021-07-15 11:17 | P.PN ---
Subjective Principal diagnosis: Acute non-ST patient myocardial infarction/severe CAD The patient is a 61-year-old female patient was diabetes and smoking and also hypertension and dyslipidemia who was admitted to the hospital with a chest disc omfort and she was ruled in for acute non-ST patient myocardial infarction. The troponin came in to be abnormal. EKG showed ST changes concerning for ischemia. The echo showed inverted only function was EF around 30-35% with evidence of wall motion abnormalities in the inferolateral segments concerning for severe CAD. For that reason she underwent a heart catheterization that revealed severe triple-vessel CAD. Cardiothoracic surgery consult was placed and the patient underwent yesterday CABG 3 with a SY to LAD and SVG to LCx as well as SVG to RCA. The patient was seen today. This is postoperative elevation day #2. Yesterday because of the anemia and margin low blood pressure she received one unit of packed RBC and her hemoglobin this morning is 9.3. Hemodynamically she is a sta ble with a blood pressure and with heart rates. She is not on any vasopressors the time she was seen that she was during the night. She is on dual antiplatelet therapy along with statin and beta aixa. Objective - Vital Signs Vital signs: Vital Signs Temp 98.5 F 07/15/21 08:00 Pulse 71 07/15/21 11:00 Resp 11 L 07/15/21 11:00 BP 90/61 07/15/21 07:00 Pulse Ox 94 L 07/15/21 11:00 Intake & Output 07/14/21 07/15/21 07/15/21 18:59 06:59 18:59 Intake Total 1392 690.028 584 Output Total 165 285 40 Balance 1227 405.028 544 Weight 54 kg Intake: IV 1082 422 144 Albumin Human 5% 250 ml 750 In Empty Bag 1 bag @ 500 mls/hr IVPB Q1H [facility] Rx#: [id number] Pressure bags 72 72 24 Sodium Chloride 0.9% 1, 260 350 120 000 ml @ 20 mls/hr IV . Q24H [facility] Rx#:[id number] Intake, IV Titration 28.028 Amount Norepinephrine 4 mg In 28.028 Sodium Chloride 0.9% 250 ml @ 0.05 MCG/KG/MIN 9. 963 mls/hr IV .Q24H [facility] Rx#:[id number] Oral 240 200 Tube Feeding 240 Blood Product 310 Rc As-1 Unit 310 [id number] Output: Chest Tube Drainage 20 120 Chest Tube Left Lower 20 120 Lateral Chest Chest Tube Lower 0 Mediastinal Chest Tube Right Lower 0 Lateral Chest Urine 145 165 40 Other: Voiding Method Indwelling Catheter Indwelling Catheter Indwelling Catheter # Bowel Movements 1 ABP, PAP, CO, CI - Last Documented Arterial Blood Pressure 104/46 Pulmonary Artery Pressure 26/10 Cardiac Output 4.3 Cardiac Index 2.8 - Constitutional General appearance: Present: no acute distress - Respiratory Respiratory: bilateral: diminished - Cardiovascular Rhythm: regular - Labs CBC & Chem 7: 07/15/21 04:30 07/15/21 04:30 Labs: Abnormal Lab Results - Last 24 Hours (Table) 07/11/21 07/14/21 07/14/21 Range/Units 15:40 11:34 16:47 RBC (3.80-5.40) m/uL Hgb (11.4-16.0) gm/dL Hct (34.0-46.0) % RDW (11.5-15.5) % Plt Count (150-450) k/uL Sodium (137-145) mmol/L BUN (7-17) mg/dL Glucose (74-99) mg/dL POC Glucose (mg/dL) 169 H 231 H (75-99) mg/dL Calcium (8.4-10.2) mg/dL AST (14-36) U/L Total Protein (6.3-8.2) g/dL Albumin (3.5-5.0) g/dL Crossmatch See Detail 07/14/21 07/14/21 07/14/21 Range/Units 16:49 16:58 20:37 RBC 2.86 L (3.80-5.40) m/uL Hgb 8.9 L D (11.4-16.0) gm/dL Hct 27.3 L (34.0-46.0) % RDW 16.4 H (11.5-15.5) % Plt Count 126 L (150-450) k/uL Sodium (137-145) mmol/L BUN (7-17) mg/dL Glucose (74-99) mg/dL POC Glucose (mg/dL) 237 H 277 H (75-99) mg/dL Calcium (8.4-10.2) mg/dL AST (14-36) U/L Total Protein (6.3-8.2) g/dL Albumin (3.5-5.0) g/dL Crossmatch 07/15/21 07/15/21 07/15/21 Range/Units 04:30 04:30 06:22 RBC 2.96 L (3.80-5.40) m/uL Hgb 9.2 L (11.4-16.0) gm/dL Hct 28.5 L (34.0-46.0) % RDW 16.6 H (11.5-15.5) % Plt Count 135 L (150-450) k/uL Sodium 136 L (137-145) mmol/L BUN 29 H (7-17) mg/dL Glucose 193 H (74-99) mg/dL POC Glucose (mg/dL) 204 H (75-99) mg/dL Calcium 8.2 L (8.4-10.2) mg/dL AST 59 H (14-36) U/L Total Protein 4.8 L (6.3-8.2) g/dL Albumin 2.7 L (3.5-5.0) g/dL Crossmatch Assessment and Plan Assessment: Assessment #1 acute non-ST elevation myocardial infarction #2 severe ischemic cardiomyopathy #3 severe triple-vessel CAD and status post CABG #4 multiple comorbidities including smoking and diabetes and hypertension and dyslipidemia Plan #1 continue the current medical regimen #2 continue monitoring the kidney function and electrolytes #3 continue monitoring the hemoglobin #4 follow-up with the patient
[2021-07-15 11:25] LABS: Glucose,Whole Blood 260 mg/dL (75-99)
[2021-07-15] MEDS: SODIUM CHLORIDE 0.9% 1,000 ML IV SCH (11:59)
[2021-07-15] MEDS: MIDODRINE 5 MG TAB PO SCH ×2 (11:59→17:21)
--- NOTE | 2021-07-15 14:10 | P.PN ---
Subjective Progress Note Date: 07/14/21 Principal diagnosis: Status post CABG for severe coronary artery disease, postoperative day #2 This is a 61-year-old female patient who follows with Dr. Marcos is her primary care provider. She has a history of chronic and ongoing tobacco dependence, not on oxygen or inhalers at home, diabetes mellitus, hyperlipidemia. She presented here to the emergency room after sustaining a fall at home. She states she tripped over a box and fell backwards and hitting her back on her walker. The next day she had developed chest tightness and shortness of breath and presented here for the same. His chest x-ray showed evidence of bilateral lower lobe pneumonia and pleural effusion with some mild congestive heart failure. CT angiogram ruled out pulmonary embolism. There is again bilateral lower lobe pneumonias with atelectasis and moderate pleural effusions. Echocardiogram r evealed moderate to severely impaired left ventricular systolic function with ejection fraction 30-35%. She was found to have an acute non-ST segment elevation myocardial infarction and had undergone left and a heart catheterization that revealed severe triple-vessel coronary artery disease with chronic total occlusion of the RCA, critical disease involving the circumflex and severe disease involving the mid LAD as well as a distal LAD. She was recommended maximum medical therapy and being evaluated by cardiothoracic surgery. Pulmonary function testing revealed an FEV1 value of 1.17 L which was 48% of predicted. He is seen today in consultation. She is sitting up in a chair at the bedside. Awake and alert in no acute distress. She denies any shortness of breath, cough or congestion. No hemoptysis. He is maintaining O2 saturations in the mid 90s on 2 L/m per nasal cannula. White count 6.3. Hemoglobin 10.9. Sodium 137. Potassium 4.7. Creatinine 0.51. AST 68. ALT 31. Glucose 132. Dyer virus not detected. The patient is not vaccinated. Patient was reevaluated today on 07/12/2021, I saw this patient yesterday on consultation, and today she underwent CABG, patient had SY to LAD, SVG to RCA, SVG to obtuse marginal 1. Postoperatively patient was transferred to the ICU, and she was on mechanical ventilation. I was asked to see her again on consultation. She is now on assist control rate of 12 tidal volume is 450, FiO2 is 100% but we changed that to 40%, is also on a PEEP of 5. ABG on 100% FiO2 showed a pO2 of more than 400 pCO2 of 46 pH of 7.43. Patient is still requiring inotropes and pressors, she is on milrinone at 0.2 mcg/kg/m, is also on norepinephrine at 0.02 mcg/kg/m. S x-ray showed no evidence of any significant abnormality. There is satisfactory postoperative chest x-ray with minimal atelectasis, endotracheal tube, median sternal drain and left-sided chest tube are all intact. No evidence of pneumonia and no evidence of effusion, there is possibly a small tiny left apical pneumothorax. And there is also evidence of subcutaneous emphysema over the left chest. Reevaluated today on 07/13, patient is postoperative day #1, she had triple-vessel coronary artery bypass grafting. Did very well overnight, patient was extubated uneventfully, and at present seems to be doing well. She is only on 2 L nasal cannula, and O2 saturations 97%. Chest x-ray is showing minimal bibasilar opacity/atelectasis. Her indwelling tubes and catheters are unchanged. Clinically the patient is doing great, she is not requiring any inotropes or any pressors. A todd is achieving about 500 mL with her incentive spirometer. WBC count is 7.6 hemoglobin is 8. Her electrolytes are normal Reevaluated on 07/14/21, patient is postoperative #2, she is status post triple- vessel coronary artery bypass surgery using the left internal mammary artery sequentially in a [id number] fashion to the mid left anterior descending artery, then in an end to side fashion to the distal left anterior descending artery, reverse saphenous vein graft from the aorta to the first obtuse marginal artery, reverse saphenous vein graft from the aorta to the right coronary artery after the takeoff of the early arising posterior descending artery, exclusion of the left atrial appendage using a 35 mm AtriClip, sternal plating using the [employer] system, harvesting of the right greater saphenous vein from the groin to above the ankle level, intraoperative transesophageal echocardiogram and epi- aortic scanning, intraoperative graft flow measurements using the [employer] system patient is doing well, not in any distress, she was extubated yesterday and it was successful, she is achieving 750 ML on her incentive spirometry. Patient is not requiring any inotropes or any pressors. Right IJ Cordis and a right radial arterial line remain in place, tubes remain in place, urine output is marginal however hemoglobin down to 6.8, hence the patient is receiving a unit of packed RBCs. Objective - Vital Signs Vital signs: Vital Signs Temp 99.1 F 07/15/21 12:00 Pulse 66 07/15/21 13:00 Resp 12 07/15/21 13:00 BP 90/61 07/15/21 12:00 Pulse Ox 93 L 07/15/21 13:00 Intake & Output 07/14/21 07/15/21 07/15/21 18:59 06:59 18:59 Intake Total 1392 825.558 5502.106 Output Total 165 285 110 Balance 1227 405.028 954.106 Weight 54 kg Intake: IV 1082 422 249 Albumin Human 5% 250 ml 750 In Empty Bag 1 bag @ 500 mls/hr IVPB Q1H [facility] Rx#: [id number] Pressure bags 72 72 39 Sodium Chloride 0.9% 1, 260 350 210 000 ml @ 20 mls/hr IV . Q24H [facility] Rx#:[id number] Intake, IV Titration 28.028 25.106 Amount Norepinephrine 4 mg In 28.028 25.106 Sodium Chloride 0.9% 250 ml @ 0.05 MCG/KG/MIN 9. 963 mls/hr IV .Q24H [facility] Rx#:[id number] Oral 240 550 Tube Feeding 240 Blood Product 310 Rc As-1 Unit 310 [id number] Output: Chest Tube Drainage 20 120 Chest Tube Left Lower 20 120 Lateral Chest Chest Tube Lower 0 Mediastinal Chest Tube Right Lower 0 Lateral Chest Urine 145 165 110 Other: Voiding Method Indwelling Catheter Indwelling Catheter Indwelling Catheter # Bowel Movements 1 ABP, PAP, CO, CI - Last Documented Arterial Blood Pressure 87/39 Pulmonary Artery Pressure 26/10 Cardiac Output 4.3 Cardiac Index 2.8 - Exam GENERAL EXAM: Revealed a 61-year-old female, on 2 L nasal cannula, sitting in bed, in no distress. HEAD: Normocephalic. Atraumatic. HEENT: PERRLA, EOMI, anicteric, no neck masses, no JVD. CHEST: No chest wall deformity. LUNGS: Chest tube and mediastinal tube noted, symmetrical chest expansion. Fine crackles at the bases.. CVS: S1 and S2 normal , positive pericardial rub noted. ABDOMEN: Soft nontender no megaly no rebound. SKIN: No rashes CENTRAL NERVOUS SYSTEM: Alert and oriented 3 focal deficits. Psychiatric: Normal mood affect and normal mental status examination. EXTREMITIES: No clubbing edema or cyanosis, good pulses bilaterally. - Labs CBC & Chem 7: 07/15/21 04:30 07/15/21 04:30 Labs: Abnormal Lab Results - Last 24 Hours (Table) 07/14/21 07/14/21 07/14/21 Range/Units 16:47 16:49 16:58 RBC 2.86 L (3.80-5.40) m/uL Hgb 8.9 L D (11.4-16.0) gm/dL Hct 27.3 L (34.0-46.0) % RDW 16.4 H (11.5-15.5) % Plt Count 126 L (150-450) k/uL Sodium (137-145) mmol/L BUN (7-17) mg/dL Glucose (74-99) mg/dL POC Glucose (mg/dL) 231 H 237 H (75-99) mg/dL Calcium (8.4-10.2) mg/dL AST (14-36) U/L Total Protein (6.3-8.2) g/dL Albumin (3.5-5.0) g/dL 07/14/21 07/15/21 07/15/21 Range/Units 20:37 04:30 04:30 RBC 2.96 L (3.80-5.40) m/uL Hgb 9.2 L (11.4-16.0) gm/dL Hct 28.5 L (34.0-46.0) % RDW 16.6 H (11.5-15.5) % Plt Count 135 L (150-450) k/uL Sodium 136 L (137-145) mmol/L BUN 29 H (7-17) mg/dL Glucose 193 H (74-99) mg/dL POC Glucose (mg/dL) 277 H (75-99) mg/dL Calcium 8.2 L (8.4-10.2) mg/dL AST 59 H (14-36) U/L Total Protein 4.8 L (6.3-8.2) g/dL Albumin 2.7 L (3.5-5.0) g/dL 07/15/21 07/15/21 Range/Units 06:22 11:23 RBC (3.80-5.40) m/uL Hgb (11.4-16.0) gm/dL Hct (34.0-46.0) % RDW (11.5-15.5) % Plt Count (150-450) k/uL Sodium (137-145) mmol/L BUN (7-17) mg/dL Glucose (74-99) mg/dL POC Glucose (mg/dL) 204 H 260 H (75-99) mg/dL Calcium (8.4-10.2) mg/dL AST (14-36) U/L Total Protein (6.3-8.2) g/dL Albumin (3.5-5.0) g/dL Assessment and Plan Assessment: Impression: Status post CABG, postoperative day #2 Acute non-ST elevation myocardial infarction and triple vessel coronary artery disease Severe chronic obstructive pulmonary lung disease FEV1 of 48% Tobacco dependence syndrome. Moderate LV dysfunction with ejection fraction of 50-55% Type 2 diabetes Benign essential hypertension Postoperative basilar atelectasis, expected. Recommendation: Continue beta blockers Plavix statins and aspirin Continue oral amiodarone. Continue incentive spirometry. Continue pain control management. We will continue to follow. Time with Patient: Less than 30
--- NOTE | 2021-07-15 14:17 | P.PN ---
Subjective Progress Note Date: 07/15/21 Principal diagnosis: Status post CABG for severe coronary artery disease, postoperative day #3 This is a 61-year-old female patient who follows with Dr. Marcos is her primary care provider. She has a history of chronic and ongoing tobacco dependence, not on oxygen or inhalers at home, diabetes mellitus, hyperlipidemia. She presented here to the emergency room after sustaining a fall at home. She states she tripped over a box and fell backwards and hitting her back on her walker. The next day she had developed chest tightness and shortness of breath and presented here for the same. His chest x-ray showed evidence of bilateral lower lobe pneumonia and pleural effusion with some mild congestive heart failure. CT angiogram ruled out pulmonary embolism. There is again bilateral lower lobe pneumonias with atelectasis and moderate pleural effusions. Echocardiogram r evealed moderate to severely impaired left ventricular systolic function with ejection fraction 30-35%. She was found to have an acute non-ST segment elevation myocardial infarction and had undergone left and a heart catheterization that revealed severe triple-vessel coronary artery disease with chronic total occlusion of the RCA, critical disease involving the circumflex and severe disease involving the mid LAD as well as a distal LAD. She was recommended maximum medical therapy and being evaluated by cardiothoracic surgery. Pulmonary function testing revealed an FEV1 value of 1.17 L which was 48% of predicted. He is seen today in consultation. She is sitting up in a chair at the bedside. Awake and alert in no acute distress. She denies any shortness of breath, cough or congestion. No hemoptysis. He is maintaining O2 saturations in the mid 90s on 2 L/m per nasal cannula. White count 6.3. Hemoglobin 10.9. Sodium 137. Potassium 4.7. Creatinine 0.51. AST 68. ALT 31. Glucose 132. Dyer virus not detected. The patient is not vaccinated. Patient was reevaluated today on 07/12/2021, I saw this patient yesterday on consultation, and today she underwent CABG, patient had SY to LAD, SVG to RCA, SVG to obtuse marginal 1. Postoperatively patient was transferred to the ICU, and she was on mechanical ventilation. I was asked to see her again on consultation. She is now on assist control rate of 12 tidal volume is 450, FiO2 is 100% but we changed that to 40%, is also on a PEEP of 5. ABG on 100% FiO2 showed a pO2 of more than 400 pCO2 of 46 pH of 7.43. Patient is still requiring inotropes and pressors, she is on milrinone at 0.2 mcg/kg/m, is also on norepinephrine at 0.02 mcg/kg/m. S x-ray showed no evidence of any significant abnormality. There is satisfactory postoperative chest x-ray with minimal atelectasis, endotracheal tube, median sternal drain and left-sided chest tube are all intact. No evidence of pneumonia and no evidence of effusion, there is possibly a small tiny left apical pneumothorax. And there is also evidence of subcutaneous emphysema over the left chest. Reevaluated today on 07/13, patient is postoperative day #1, she had triple-vessel coronary artery bypass grafting. Did very well overnight, patient was extubated uneventfully, and at present seems to be doing well. She is only on 2 L nasal cannula, and O2 saturations 97%. Chest x-ray is showing minimal bibasilar opacity/atelectasis. Her indwelling tubes and catheters are unchanged. Clinically the patient is doing great, she is not requiring any inotropes or any pressors. A todd is achieving about 500 mL with her incentive spirometer. WBC count is 7.6 hemoglobin is 8. Her electrolytes are normal Reevaluated on 07/14/21, patient is postoperative #2, she is status post triple- vessel coronary artery bypass surgery using the left internal mammary artery sequentially in a [id number] fashion to the mid left anterior descending artery, then in an end to side fashion to the distal left anterior descending artery, reverse saphenous vein graft from the aorta to the first obtuse marginal artery, reverse saphenous vein graft from the aorta to the right coronary artery after the takeoff of the early arising posterior descending artery, exclusion of the left atrial appendage using a 35 mm AtriClip, sternal plating using the [employer] system, harvesting of the right greater saphenous vein from the groin to above the ankle level, intraoperative transesophageal echocardiogram and epi- aortic scanning, intraoperative graft flow measurements using the [employer] system patient is doing well, not in any distress, she was extubated yesterday and it was successful, she is achieving 750 ML on her incentive spirometry. Patient is not requiring any inotropes or any pressors. Right IJ Cordis and a right radial arterial line remain in place, tubes remain in place, urine output is marginal however hemoglobin down to 6.8, hence the patient is receiving a unit of packed RBCs. Reevaluated today on 07/15/2021, patient is postoperative day #3. Continues to do well, she is sitting in a recliner, on 2 L nasal cannula, does not seem to be in any distress. Patient has postsurgical pain, but seems to be relatively well-controlled. Has not been sleeping well. She is in sinus rhythm, blood pressure is marginal and her urine output was noted to be a bit on the low side. She did receive a unit of packed RBCs yesterday for hemoglobin of 6.8. She is on a low dose of norepinephrine with minimal improvement in her blood pressure. But no significant improvement noted in urine output. Continues to have left- sided pleural chest tube in place. Chest x-ray showed mostly atelectasis at the bases, no evidence of congestive heart failure. WBC count is 9 hemoglobin is 9.2 electrolytes are normal renal profile is normal Objective - Vital Signs Vital signs: Vital Signs Temp 99.1 F 07/15/21 12:00 Pulse 66 07/15/21 13:00 Resp 12 07/15/21 13:00 BP 90/61 07/15/21 12:00 Pulse Ox 93 L 07/15/21 13:00 Intake & Output 07/14/21 07/15/21 07/15/21 18:59 06:59 18:59 Intake Total 1392 305.850 9030.106 Output Total 165 285 110 Balance 1227 405.028 954.106 Weight 54 kg Intake: IV 1082 422 249 Albumin Human 5% 250 ml 750 In Empty Bag 1 bag @ 500 mls/hr IVPB Q1H [facility] Rx#: [id number] Pressure bags 72 72 39 Sodium Chloride 0.9% 1, 260 350 210 000 ml @ 20 mls/hr IV . Q24H [facility] Rx#:[id number] Intake, IV Titration 28.028 25.106 Amount Norepinephrine 4 mg In . 25.106 Sodium Chloride 0.9% 250 ml @ 0.05 MCG/KG/MIN 9. 963 mls/hr IV .Q24H [facility] Rx#:[id number] Oral 240 550 Tube Feeding 240 Blood Product 310 Rc As-1 Unit 310 [id number] Output: Chest Tube Drainage 20 120 Chest Tube Left Lower 20 120 Lateral Chest Chest Tube Lower 0 Mediastinal Chest Tube Right Lower 0 Lateral Chest Urine 145 165 110 Other: Voiding Method Indwelling Catheter Indwelling Catheter Indwelling Catheter # Bowel Movements 1 ABP, PAP, CO, CI - Last Documented Arterial Blood Pressure 87/39 Pulmonary Artery Pressure 26/10 Cardiac Output 4.3 Cardiac Index 2.8 - Exam GENERAL EXAM: Revealed a 61-year-old female, on 2 L nasal cannula, sitting in bed, in no distress. Achieving about 1000 mL on her incentive spirometer. Her O2 sats is 94%. HEAD: Normocephalic. Atraumatic. HEENT: PERRLA, EOMI, anicteric, no neck masses, no JVD. CHEST: No chest wall deformity. LUNGS: Diminished breath sounds at the bases, no rhonchi and no wheezes. CVS: S1 and S2 normal , no gallops. No murmur. ABDOMEN: Soft nontender no megaly no rebound. SKIN: No rashes CENTRAL NERVOUS SYSTEM: Alert and oriented 3 focal deficits. Psychiatric: Normal mood affect and normal mental status examination. EXTREMITIES: No clubbing edema or cyanosis, good pulses bilaterally. - Labs CBC & Chem 7: 07/15/21 04:30 07/15/21 04:30 Labs: Abnormal Lab Results - Last 24 Hours (Table) 07/14/21 07/14/21 07/14/21 Range/Units 16:47 16:49 16:58 RBC 2.86 L (3.80-5.40) m/uL Hgb 8.9 L D (11.4-16.0) gm/dL Hct 27.3 L (34.0-46.0) % RDW 16.4 H (11.5-15.5) % Plt Count 126 L (150-450) k/uL Sodium (137-145) mmol/L BUN (7-17) mg/dL Glucose (74-99) mg/dL POC Glucose (mg/dL) 231 H 237 H (75-99) mg/dL Calcium (8.4-10.2) mg/dL AST (14-36) U/L Total Protein (6.3-8.2) g/dL Albumin (3.5-5.0) g/dL 12/06/2407/15/21 07/15/21 Range/Units 20:37 04:30 04:30 RBC 2.96 L (3.80-5.40) m/uL Hgb 9.2 L (11.4-16.0) gm/dL Hct 28.5 L (34.0-46.0) % RDW 16.6 H (11.5-15.5) % Plt Count 135 L (150-450) k/uL Sodium 136 L (137-145) mmol/L BUN 29 H (7-17) mg/dL Glucose 193 H (74-99) mg/dL POC Glucose (mg/dL) 277 H (75-99) mg/dL Calcium 8.2 L (8.4-10.2) mg/dL AST 59 H (14-36) U/L Total Protein 4.8 L (6.3-8.2) g/dL Albumin 2.7 L (3.5-5.0) g/dL 07/15/21 07/15/21 Range/Units 06:22 11:23 RBC (3.80-5.40) m/uL Hgb (11.4-16.0) gm/dL Hct (34.0-46.0) % RDW (11.5-15.5) % Plt Count (150-450) k/uL Sodium (137-145) mmol/L BUN (7-17) mg/dL Glucose (74-99) mg/dL POC Glucose (mg/dL) 204 H 260 H (75-99) mg/dL Calcium (8.4-10.2) mg/dL AST (14-36) U/L Total Protein (6.3-8.2) g/dL Albumin (3.5-5.0) g/dL Assessment and Plan Assessment: Impression: Multivessel coronary artery disease with non-ST elevation myocardial infarction status post CABG 3. Chronic systolic congestive heart failure ejection fraction of 30-35%. Bibasilar atelectasis, no clear-cut evidence of pneumonia. Small bilateral pleural effusions secondary to chronic systolic congestive heart failure Hypertension. Dyslipidemia Ischemic cardiomyopathy and LV dysfunction Severe COPD FEV1 of 48%. History of fibromyalgia Acute blood loss anemia, expected patient did receive a unit of packed RBCs yesterday. Recommendation: Continue to monitor in the ICU. Continue oxygen and titrate accordingly Continue incentive spirometry. Ambulate as possible. Continue aspirin statins and Plavix as well as beta blockers Continue oral amiodarone. Continue pain control. Continue GI and DVT prophylaxis. Continue to monitor daily labs and data x-rays of the chest. Continue bronchodilators. Will follow. Time with Patient: Less than 30
[2021-07-15 16:20] LABS: Glucose,Whole Blood 352 mg/dL (75-99)
[2021-07-15 20:21] LABS: Glucose,Whole Blood 309 mg/dL (75-99)
[2021-07-15] MEDS: SENNOSIDES-DOCUSATE SODIUM 1 EACH TAB PO SCH (20:45)
[2021-07-15] MEDS: MELATONIN 3 MG TABLET PO SCH (20:47)
--- NOTE | 2021-07-15 21:13 | P.PN ---
Subjective Progress Note Date: 07/13/21 Principal diagnosis: Acute non-ST elevation [place] Status post cardiac catheterization revealing triple-vessel coronary artery disease Acute hypoxic respiratory failure Acute exacerbation systolic CHF Patient is a 61-year-old female came in the appearance of left-sided chest pain and also shortness of breath and patient the had a cast from her recent for for calcaneal fracture. Patient has EF of around 25-30% only on Aldactone at home it appears to be in a bit of heart failure with bilateral pleural effusion CT of the chest showed some infiltrate but no work program. Patient denied any cough. Patient had any fever chills. Patient is found to have mildly elevated troponin. Please refer to electrode cleaner documentation for EKG reading. Patient was evaluated by cardiology and they're recommending daily catheterization today. 07/11/2021 Patient is seen and evaluated sitting up in bedside chair; denies any complaint of chest pain or shortness of breath but does report feeling anxious about scheduled surgery tomorrow Vital signs are reviewed and remained stable; blood pressure at 122/62 Patient is status post cardiac catheterization which revealed severe triple vessel coronary artery disease; cardiothoracic surgery on board and CABG is planned for tomorrow Patient has been taken off lisinopril given planned surgery tomorrow morning; remains stable on rest of current medications 07/12/2021 Patient is seen and evaluated; denies any complaint of chest pain or shortness of breath; feels anxious and overwhelmed for upcoming surgery this morning Vital signs reveal temperature 98.2, pulse 87, respiration 19 and blood pressure 128/67 with O2 saturation 92% on 2 L Labs revealed WBC 6.2, hemoglobin 10.1, platelet count of 272, blood glucoses ranging between 142-177 Patient is scheduled for OR for CABG 07/13/2021 patient is status post CABG, POD #1, she had triple-vessel urinary artery bypass grafting. Did very well overnight, patient was extubated uneventfully, and at present seems to be doing well. She is only on 2 L nasal cannula, and O2 saturations 97%. Vital signs are reviewed temperature of 99.3, pulse 90, respirations 17 and blood pressure 149/80 Chest x-ray is showing minimal bibasilar opacity/atelectasis. Her indwelling tubes and catheters are unchanged. Clinically the patient is doing great, she is not requiring any inotropes or any pressors. A todd is achieving about 500 mL with her incentive spirometer. WBC count is 7.6 hemoglobin is 8. Her electrolytes are normal Objective - Vital Signs Vital signs: Vital Signs Temp 99.3 F 07/13/21 12:00 Pulse 89 07/13/21 14:00 Resp 12 07/13/21 14:00 BP 149/80 07/12/21 06:21 Pulse Ox 97 07/13/21 14:00 Intake & Output 07/12/21 07/13/21 07/13/21 18:59 06:59 18:59 Intake Total 246.611 6577.409 576.427 Output Total 3055 1468 450 Balance -2225.452 -7.591 126.427 Weight 51.3 kg Intake: IV 503 1445.5 403 ACETAMINOPHEN IV (For NPO 100 ) 1,000 mg In Empty Bag 1 bag @ 400 mls/hr IVPB Q6HR [facility] Rx#:[id number] Albumin Human 5% 250 ml 250 250 80 In Empty Bag 1 bag @ 250 mls/hr IVPB Q1HR PRN Rx#: [id number] CO Injectate 330 40 Nitroglycerine 16.5 Pressure bags 99 63 Sodium Chloride 0.9% 1, 200 600 220 000 ml @ 20 mls/hr IV . Q24H [facility] Rx#:[id number] ceFAZolin 2 gm In Sodium 50 Chloride 0.9% 50 ml @ 100 mls/hr IVPB ONCE ONE Rx# :[id number] Intake, IV Titration 16.548 14.909 73.427 Amount Clevidipine Butyrate 25 0 3.034 15.667 mg In Empty Bag 1 bag @ 1 MG/HR 2 mls/hr IV .Q24H [facility] Rx#:[id number] Insulin Regular 100 unit 11.875 3.998 In Sodium Chloride 0.9% 100 ml @ Per Protocol IV .Q0M [facility] Rx#:[id number] Milrinone-D5w Pmx 20 mg 53.762 In Dextrose/Water 1 100ml .bag @ 0.1 MCG/KG/MIN 1. 539 mls/hr IV .Q24H [facility] Rx#:[id number] Norepinephrine 4 mg In 16.548 Sodium Chloride 0.9% 250 ml @ 0.05 MCG/KG/MIN 9. 773 mls/hr IV .Q24H [facility] Rx#:[id number] Oral 100 Blood Product 310 Rc As-1 Unit 310 [id number] Output: Chest Tube Drainage 715 405 200 Chest Tube Left Lower 520 100 75 Lateral Chest Chest Tube Lower 95 145 80 Mediastinal Chest Tube Right Lower 100 160 45 Lateral Chest Gastric Drainage 300 Drainage 30 30 50 Right Calf 30 30 50 Urine 810 583 200 Oral Regurgitation 150 Estimated Blood Loss 1500 Other: Voiding Method Indwelling Catheter Indwelling Catheter Indwelling Catheter ABP, PAP, CO, CI - Last Documented Arterial Blood Pressure 99/46 Pulmonary Artery Pressure 26/10 Cardiac Output 4.3 Cardiac Index 2.8 - Exam GENERAL: The patient is alert and oriented x3, not in any acute distress. Well developed, well nourished. HEENT: Pupils are round and equally reacting to light. EOMI. No scleral icterus. No conjunctival pallor. Normocephalic, atraumatic. No pharyngeal erythema. No thyromegaly. CARDIOVASCULAR: S1 and S2 present. No murmurs, rubs, or gallops. PULMONARY: Chest is clear to auscultation, no wheezing or crackles. ABDOMEN: Soft, nontender, nondistended, normoactive bowel sounds. No palpable organomegaly. MUSCULOSKELETAL: No joint swelling or deformity. EXTREMITIES: No cyanosis, clubbing, patient does have pedal edema patient has a cast in the left leg. NEUROLOGICAL: Gross neurological examination did not reveal any focal deficits. SKIN: No rashes. - Labs CBC & Chem 7: 07/15/21 04:30 07/15/21 04:30 Labs: Abnormal Lab Results - Last 24 Hours (Table) 07/11/21 07/12/21 07/12/21 Range/Units 15:40 16:06 16:08 RBC 2.81 L (3.80-5.40) m/uL Hgb 8.0 L D (11.4-16.0) gm/dL Hct 25.6 L (34.0-46.0) % RDW 16.1 H (11.5-15.5) % Plt Count 140 L (150-450) k/uL Lymphocytes # (1.0-4.8) k/uL PT (9.0-12.0) sec INR (<1.2) APTT (22.0-30.0) sec ABG pCO2 (35-45) mmHg ABG pO2 (83-108) mmHg ABG HCO3 (21-25) mmol/L ABG Total CO2 (19-24) mmol/L ABG O2 Saturation (94-97) % Creatinine (0.52-1.04) mg/dL Glucose (74-99) mg/dL POC Glucose (mg/dL) 109 H (75-99) mg/dL Calcium (8.4-10.2) mg/dL Total Protein (6.3-8.2) g/dL Albumin (3.5-5.0) g/dL Crossmatch See Detail 07/12/21 07/12/21 07/12/21 Range/Units 16:08 16:08 16:45 RBC (3.80-5.40) m/uL Hgb (11.4-16.0) gm/dL Hct (34.0-46.0) % RDW (11.5-15.5) % Plt Count (150-450) k/uL Lymphocytes # (1.0-4.8) k/uL PT 13.9 H (9.0-12.0) sec INR 1.4 H (<1.2) APTT 31.7 H (22.0-30.0) sec ABG pCO2 46 H (35-45) mmHg ABG pO2 >400 H (83-108) mmHg ABG HCO3 30 H (21-25) mmol/L ABG Total CO2 31 H (19-24) mmol/L ABG O2 Saturation 100.0 H (94-97) % Creatinine 0.26 L (0.52-1.04) mg/dL Glucose 100 H (74-99) mg/dL POC Glucose (mg/dL) (75-99) mg/dL Calcium 8.0 L (8.4-10.2) mg/dL Total Protein 3.7 L (6.3-8.2) g/dL Albumin 1.8 L (3.5-5.0) g/dL Crossmatch 07/12/21 07/12/21 07/12/21 Range/Units 18:06 18:29 19:05 RBC 2.90 L (3.80-5.40) m/uL Hgb 8.4 L (11.4-16.0) gm/dL Hct 26.3 L (34.0-46.0) % RDW 16.3 H (11.5-15.5) % Plt Count 133 L (150-450) k/uL Lymphocytes # 0.6 L (1.0-4.8) k/uL PT (9.0-12.0) sec INR (<1.2) APTT (22.0-30.0) sec ABG pCO2 (35-45) mmHg ABG pO2 (83-108) mmHg ABG HCO3 (21-25) mmol/L ABG Total CO2 (19-24) mmol/L ABG O2 Saturation (94-97) % Creatinine (0.52-1.04) mg/dL Glucose (74-99) mg/dL POC Glucose (mg/dL) 113 H 127 H (75-99) mg/dL Calcium (8.4-10.2) mg/dL Total Protein (6.3-8.2) g/dL Albumin (3.5-5.0) g/dL Crossmatch 07/12/21 07/12/21 07/12/21 Range/Units 20:04 20:58 21:20 RBC 2.73 L (3.80-5.40) m/uL Hgb 8.1 L (11.4-16.0) gm/dL Hct 24.7 L (34.0-46.0) % RDW 16.3 H (11.5-15.5) % Plt Count 123 L (150-450) k/uL Lymphocytes # 0.4 L (1.0-4.8) k/uL PT (9.0-12.0) sec INR (<1.2) APTT (22.0-30.0) sec ABG pCO2 (35-45) mmHg ABG pO2 (83-108) mmHg ABG HCO3 (21-25) mmol/L ABG Total CO2 (19-24) mmol/L ABG O2 Saturation (94-97) % Creatinine (0.52-1.04) mg/dL Glucose (74-99) mg/dL POC Glucose (mg/dL) 141 H 136 H (75-99) mg/dL Calcium (8.4-10.2) mg/dL Total Protein (6.3-8.2) g/dL Albumin (3.5-5.0) g/dL Crossmatch 07/12/21 07/12/21 07/13/21 Range/Units 21:53 22:56 00:12 RBC (3.80-5.40) m/uL Hgb (11.4-16.0) gm/dL Hct (34.0-46.0) % RDW (11.5-15.5) % Plt Count (150-450) k/uL Lymphocytes # (1.0-4.8) k/uL PT (9.0-12.0) sec INR (<1.2) APTT (22.0-30.0) sec ABG pCO2 (35-45) mmHg ABG pO2 (83-108) mmHg ABG HCO3 (21-25) mmol/L ABG Total CO2 (19-24) mmol/L ABG O2 Saturation (94-97) % Creatinine (0.52-1.04) mg/dL Glucose (74-99) mg/dL POC Glucose (mg/dL) 117 H 114 H 132 H (75-99) mg/dL Calcium (8.4-10.2) mg/dL Total Protein (6.3-8.2) g/dL Albumin (3.5-5.0) g/dL Crossmatch 07/13/21 07/13/21 07/13/21 Range/Units 01:00 01:58 03:14 RBC (3.80-5.40) m/uL Hgb (11.4-16.0) gm/dL Hct (34.0-46.0) % RDW (11.5-15.5) % Plt Count (150-450) k/uL Lymphocytes # (1.0-4.8) k/uL PT (9.0-12.0) sec INR (<1.2) APTT (22.0-30.0) sec ABG pCO2 (35-45) mmHg ABG pO2 (83-108) mmHg ABG HCO3 (21-25) mmol/L ABG Total CO2 (19-24) mmol/L ABG O2 Saturation (94-97) % Creatinine (0.52-1.04) mg/dL Glucose (74-99) mg/dL POC Glucose (mg/dL) 145 H 145 H 127 H (75-99) mg/dL Calcium (8.4-10.2) mg/dL Total Protein (6.3-8.2) g/dL Albumin (3.5-5.0) g/dL Crossmatch 07/13/21 07/13/21 07/13/21 Range/Units 04:09 04:09 04:09 RBC 2.73 L (3.80-5.40) m/uL Hgb 8.0 L (11.4-16.0) gm/dL Hct 24.8 L (34.0-46.0) % RDW 16.6 H (11.5-15.5) % Plt Count 149 L (150-450) k/uL Lymphocytes # 0.7 L (1.0-4.8) k/uL PT (9.0-12.0) sec INR (<1.2) APTT (22.0-30.0) sec ABG pCO2 (35-45) mmHg ABG pO2 (83-108) mmHg ABG HCO3 (21-25) mmol/L ABG Total CO2 (19-24) mmol/L ABG O2 Saturation (94-97) % Creatinine 0.39 L (0.52-1.04) mg/dL Glucose 111 H (74-99) mg/dL POC Glucose (mg/dL) 119 H (75-99) mg/dL Calcium 8.1 L (8.4-10.2) mg/dL Total Protein 4.5 L (6.3-8.2) g/dL Albumin 2.3 L (3.5-5.0) g/dL Crossmatch 07/13/21 07/13/21 07/13/21 Range/Units 05:00 06:10 06:59 RBC (3.80-5.40) m/uL Hgb (11.4-16.0) gm/dL Hct (34.0-46.0) % RDW (11.5-15.5) % Plt Count (150-450) k/uL Lymphocytes # (1.0-4.8) k/uL PT (9.0-12.0) sec INR (<1.2) APTT (22.0-30.0) sec ABG pCO2 (35-45) mmHg ABG pO2 (83-108) mmHg ABG HCO3 (21-25) mmol/L ABG Total CO2 (19-24) mmol/L ABG O2 Saturation (94-97) % Creatinine (0.52-1.04) mg/dL Glucose (74-99) mg/dL POC Glucose (mg/dL) 106 H 122 H 126 H (75-99) mg/dL Calcium (8.4-10.2) mg/dL Total Protein (6.3-8.2) g/dL Albumin (3.5-5.0) g/dL Crossmatch 07/13/21 07/13/21 07/13/21 Range/Units 07:15 09:11 11:36 RBC (3.80-5.40) m/uL Hgb (11.4-16.0) gm/dL Hct (34.0-46.0) % RDW (11.5-15.5) % Plt Count (150-450) k/uL Lymphocytes # (1.0-4.8) k/uL PT (9.0-12.0) sec INR (<1.2) APTT (22.0-30.0) sec ABG pCO2 (35-45) mmHg ABG pO2 146 H (83-108) mmHg ABG HCO3 29 H (21-25) mmol/L ABG Total CO2 31 H (19-24) mmol/L ABG O2 Saturation 99.8 H (94-97) % Creatinine (0.52-1.04) mg/dL Glucose (74-99) mg/dL POC Glucose (mg/dL) 110 H 127 H (75-99) mg/dL Calcium (8.4-10.2) mg/dL Total Protein (6.3-8.2) g/dL Albumin (3.5-5.0) g/dL Crossmatch 07/13/21 07/13/21 Range/Units 12:43 14:36 RBC (3.80-5.40) m/uL Hgb (11.4-16.0) gm/dL Hct (34.0-46.0) % RDW (11.5-15.5) % Plt Count (150-450) k/uL Lymphocytes # (1.0-4.8) k/uL PT (9.0-12.0) sec INR (<1.2) APTT (22.0-30.0) sec ABG pCO2 (35-45) mmHg ABG pO2 (83-108) mmHg ABG HCO3 (21-25) mmol/L ABG Total CO2 (19-24) mmol/L ABG O2 Saturation (94-97) % Creatinine (0.52-1.04) mg/dL Glucose (74-99) mg/dL POC Glucose (mg/dL) 126 H 111 H (75-99) mg/dL Calcium (8.4-10.2) mg/dL Total Protein (6.3-8.2) g/dL Albumin (3.5-5.0) g/dL Crossmatch Microbiology - Last 24 Hours (Table) 07/08/21 02:02 Blood Culture - Preliminary Blood No Growth after 120 hours Assessment and Plan Assessment: Assessment and plan -Acute non-ST elevation myocardial infarction: Patient is status post cardiac catheterization triple-vessel disease cardiothoracic surgery evaluation -Acute hypoxic respiratory failure most probably secondary to congestive heart failure chronic systolic dysfunction with acute exacerbation patient was started on low-dose of Lasix patient blood pressure is borderline low. Patient is on lisinopril which will be continued as well along with Aldactone. Pneumonia ruled out for calcitonin is low. -Nicotine use: Counseling was provided -Type 2 diabetes mellitus -Hyperlipidemia 1 possible hypervolemic hyponatremia
--- NOTE | 2021-07-15 21:15 | P.PN ---
Subjective Progress Note Date: 07/14/21 Principal diagnosis: Acute non-ST elevation [place] Status post cardiac catheterization revealing triple-vessel coronary artery disease Acute hypoxic respiratory failure Acute exacerbation systolic CHF Patient is a 61-year-old female came in the appearance of left-sided chest pain and also shortness of breath and patient the had a cast from her recent for for calcaneal fracture. Patient has EF of around 25-30% only on Aldactone at home it appears to be in a bit of heart failure with bilateral pleural effusion CT of the chest showed some infiltrate but no work program. Patient denied any cough. Patient had any fever chills. Patient is found to have mildly elevated troponin. Please refer to bin cleaner documentation for EKG reading. Patient was evaluated by cardiology and they're recommending daily catheterization today. 07/11/2021 Patient is seen and evaluated sitting up in bedside chair; denies any complaint of chest pain or shortness of breath but does report feeling anxious about scheduled surgery tomorrow Vital signs are reviewed and remained stable; blood pressure at 122/62 Patient is status post cardiac catheterization which revealed severe triple vessel coronary artery disease; cardiothoracic surgery on board and CABG is planned for tomorrow Patient has been taken off lisinopril given planned surgery tomorrow morning; remains stable on rest of current medications 07/12/2021 Patient is seen and evaluated; denies any complaint of chest pain or shortness of breath; feels anxious and overwhelmed for upcoming surgery this morning Vital signs reveal temperature 98.2, pulse 87, respiration 19 and blood pressure 128/67 with O2 saturation 92% on 2 L Labs revealed WBC 6.2, hemoglobin 10.1, platelet count of 272, blood glucoses ranging between 142-177 Patient is scheduled for OR for CABG 07/13/2021 patient is status post CABG, POD #1, she had triple-vessel urinary artery bypass grafting. Did very well overnight, patient was extubated uneventfully, and at present seems to be doing well. She is only on 2 L nasal cannula, and O2 saturations 97%. Vital signs are reviewed temperature of 99.3, pulse 90, respirations 17 and blood pressure 149/80 Chest x-ray is showing minimal bibasilar opacity/atelectasis. Her indwelling tubes and catheters are unchanged. Clinically the patient is doing great, she is not requiring any inotropes or any pressors. A todd is achieving about 500 mL with her incentive spirometer. WBC count is 7.6 hemoglobin is 8. Her electrolytes are normal 07/14/2021 Patient is seen and evaluated sitting up in a bedside recliner; was successfully extubated yesterday Vital signs are reviewed and remained stable with a temperature of 98.5, pulse 71, respiration 15 and blood pressure of 9659 Thoracic surgery on board recommending to continue with aspirin, statin, Plavix and beta blockers with plans to increase beta aixa therapy as tolerated; patient will be started on low-dose herber for afterload reduction and blood pressure is more stable; continue with amiodarone for prophylactic prevention of atrial fibrillation Continue to increase activity; PT/OT/cardiac rehab Objective - Vital Signs Vital signs: Vital Signs Temp 98.4 F 07/14/21 11:46 Pulse 65 07/14/21 15:00 Resp 10 L 07/14/21 15:00 BP 93/52 07/14/21 13:00 Pulse Ox 97 07/14/21 15:00 Intake & Output 07/13/21 07/14/21 07/14/21 18:59 06:59 18:59 Intake Total 756.427 664.183 814 Output Total 675 315 125 Balance 81.427 349.183 689 Weight 51.3 kg 52.3 kg Intake: IV 583 420 504 Albumin Human 5% 250 ml 80 In Empty Bag 1 bag @ 250 mls/hr IVPB Q1HR PRN Rx#: [id number] Albumin Human 5% 250 ml 250 In Empty Bag 1 bag @ 500 mls/hr IVPB Q1H [facility] Rx#: [id number] CO Injectate 40 Pressure bags 93 60 54 Sodium Chloride 0.9% 1, 370 360 200 000 ml @ 20 mls/hr IV . Q24H [facility] Rx#:[id number] Intake, IV Titration 73.427 4.183 Amount Clevidipine Butyrate 25 15.667 mg In Empty Bag 1 bag @ 1 MG/HR 2 mls/hr IV .Q24H [facility] Rx#:[id number] Insulin Regular 100 unit 3.998 4.183 In Sodium Chloride 0.9% 100 ml @ Per Protocol IV .Q0M [facility] Rx#:[id number] Milrinone-D5w Pmx 20 mg 53.762 In Dextrose/Water 1 100ml .bag @ 0.1 MCG/KG/MIN 1. 539 mls/hr IV .Q24H [facility] Rx#:[id number] Oral 100 240 Blood Product 310 Rc As-1 Unit 310 [id number] Output: Chest Tube Drainage 360 140 20 Chest Tube Left Lower 115 50 20 Lateral Chest Chest Tube Lower 150 30 0 Mediastinal Chest Tube Right Lower 95 60 0 Lateral Chest Drainage 50 Right Calf 50 Urine 265 175 105 Other: Voiding Method Indwelling Catheter Indwelling Catheter Indwelling Catheter ABP, PAP, CO, CI - Last Documented Arterial Blood Pressure 95/43 Pulmonary Artery Pressure 26/10 Cardiac Output 4.3 Cardiac Index 2.8 - Exam GENERAL: The patient is alert and oriented x3, not in any acute distress. Well developed, well nourished. HEENT: Pupils are round and equally reacting to light. EOMI. No scleral icterus. No conjunctival pallor. Normocephalic, atraumatic. No pharyngeal erythema. No thyromegaly. CARDIOVASCULAR: S1 and S2 present. No murmurs, rubs, or gallops. PULMONARY: Chest is clear to auscultation, no wheezing or crackles. ABDOMEN: Soft, nontender, nondistended, normoactive bowel sounds. No palpable organomegaly. MUSCULOSKELETAL: No joint swelling or deformity. EXTREMITIES: No cyanosis, clubbing, patient does have pedal edema patient has a cast in the left leg. NEUROLOGICAL: Gross neurological examination did not reveal any focal deficits. SKIN: No rashes. - Labs CBC & Chem 7: 07/15/21 04:30 07/15/21 04:30 Labs: Abnormal Lab Results - Last 24 Hours (Table) 07/11/21 07/13/21 07/13/21 Range/Units 15:40 16:38 17:05 RBC (3.80-5.40) m/uL Hgb (11.4-16.0) gm/dL Hct (34.0-46.0) % RDW (11.5-15.5) % Plt Count (150-450) k/uL Lymphocytes # (1.0-4.8) k/uL BUN (7-17) mg/dL Glucose (74-99) mg/dL POC Glucose (mg/dL) 123 H 125 H (75-99) mg/dL Calcium (8.4-10.2) mg/dL AST (14-36) U/L Total Protein (6.3-8.2) g/dL Albumin (3.5-5.0) g/dL Crossmatch See Detail 07/13/21 07/13/21 07/13/21 Range/Units 18:39 20:30 22:06 RBC (3.80-5.40) m/uL Hgb (11.4-16.0) gm/dL Hct (34.0-46.0) % RDW (11.5-15.5) % Plt Count (150-450) k/uL Lymphocytes # (1.0-4.8) k/uL BUN (7-17) mg/dL Glucose (74-99) mg/dL POC Glucose (mg/dL) 124 H 122 H 135 H (75-99) mg/dL Calcium (8.4-10.2) mg/dL AST (14-36) U/L Total Protein (6.3-8.2) g/dL Albumin (3.5-5.0) g/dL Crossmatch 07/14/21 07/14/21 07/14/21 Range/Units 00:19 01:16 02:02 RBC (3.80-5.40) m/uL Hgb (11.4-16.0) gm/dL Hct (34.0-46.0) % RDW (11.5-15.5) % Plt Count (150-450) k/uL Lymphocytes # (1.0-4.8) k/uL BUN (7-17) mg/dL Glucose (74-99) mg/dL POC Glucose (mg/dL) 142 H 144 H 146 H (75-99) mg/dL Calcium (8.4-10.2) mg/dL AST (14-36) U/L Total Protein (6.3-8.2) g/dL Albumin (3.5-5.0) g/dL Crossmatch 07/14/21 07/14/21 07/14/21 Range/Units 03:11 05:00 05:00 RBC 2.31 L (3.80-5.40) m/uL Hgb 6.8 L* (11.4-16.0) gm/dL Hct 21.2 L (34.0-46.0) % RDW 16.7 H (11.5-15.5) % Plt Count 113 L (150-450) k/uL Lymphocytes # 0.9 L (1.0-4.8) k/uL BUN 22 H (7-17) mg/dL Glucose 128 H (74-99) mg/dL POC Glucose (mg/dL) 133 H (75-99) mg/dL Calcium 8.1 L (8.4-10.2) mg/dL AST 114 H (14-36) U/L Total Protein 4.6 L (6.3-8.2) g/dL Albumin 2.6 L (3.5-5.0) g/dL Crossmatch 07/14/21 07/14/21 07/14/21 Range/Units 05:00 06:17 07:00 RBC (3.80-5.40) m/uL Hgb (11.4-16.0) gm/dL Hct (34.0-46.0) % RDW (11.5-15.5) % Plt Count (150-450) k/uL Lymphocytes # (1.0-4.8) k/uL BUN (7-17) mg/dL Glucose (74-99) mg/dL POC Glucose (mg/dL) 144 H 125 H 126 H (75-99) mg/dL Calcium (8.4-10.2) mg/dL AST (14-36) U/L Total Protein (6.3-8.2) g/dL Albumin (3.5-5.0) g/dL Crossmatch 07/14/21 07/14/21 Range/Units 08:08 11:34 RBC (3.80-5.40) m/uL Hgb (11.4-16.0) gm/dL Hct (34.0-46.0) % RDW (11.5-15.5) % Plt Count (150-450) k/uL Lymphocytes # (1.0-4.8) k/uL BUN (7-17) mg/dL Glucose (74-99) mg/dL POC Glucose (mg/dL) 137 H 169 H (75-99) mg/dL Calcium (8.4-10.2) mg/dL AST (14-36) U/L Total Protein (6.3-8.2) g/dL Albumin (3.5-5.0) g/dL Crossmatch Microbiology - Last 24 Hours (Table) 07/08/21 02:02 Blood Culture - Final Blood No Growth after 144 hours Assessment and Plan Assessment: Assessment and plan -Acute non-ST elevation myocardial infarction: Patient is status post cardiac catheterization triple-vessel disease cardiothoracic surgery evaluation -Acute hypoxic respiratory failure most probably secondary to congestive heart failure chronic systolic dysfunction with acute exacerbation patient was started on low-dose of Lasix patient blood pressure is borderline low. Patient is on lisinopril which will be continued as well along with Aldactone. Pneumonia ruled out for calcitonin is low. -Nicotine use: Counseling was provided -Type 2 diabetes mellitus -Hyperlipidemia 1 possible hypervolemic hyponatremia
--- NOTE | 2021-07-15 21:19 | P.PN ---
Subjective Progress Note Date: 07/15/21 Principal diagnosis: Acute non-ST elevation SD Status post cardiac catheterization revealing triple-vessel coronary artery disease Acute hypoxic respiratory failure Acute exacerbation systolic CHF Patient is a 61-year-old female came in the appearance of left-sided chest pain and also shortness of breath and patient the had a cast from her recent for for calcaneal fracture. Patient has EF of around 25-30% only on Aldactone at home it appears to be in a bit of heart failure with bilateral pleural effusion CT of the chest showed some infiltrate but no work program. Patient denied any cough. Patient had any fever chills. Patient is found to have mildly elevated troponin. Please refer to silk finisher documentation for EKG reading. Patient was evaluated by cardiology and they're recommending daily catheterization today. 07/11/2021 Patient is seen and evaluated sitting up in bedside chair; denies any complaint of chest pain or shortness of breath but does report feeling anxious about scheduled surgery tomorrow Vital signs are reviewed and remained stable; blood pressure at 122/62 Patient is status post cardiac catheterization which revealed severe triple vessel coronary artery disease; cardiothoracic surgery on board and CABG is planned for tomorrow Patient has been taken off lisinopril given planned surgery tomorrow morning; remains stable on rest of current medications 07/12/2021 Patient is seen and evaluated; denies any complaint of chest pain or shortness of breath; feels anxious and overwhelmed for upcoming surgery this morning Vital signs reveal temperature 98.2, pulse 87, respiration 19 and blood pressure 128/67 with O2 saturation 92% on 2 L Labs revealed WBC 6.2, hemoglobin 10.1, platelet count of 272, blood glucoses ranging between 142-177 Patient is scheduled for OR for CABG 07/13/2021 patient is status post CABG, POD #1, she had triple-vessel urinary artery bypass grafting. Did very well overnight, patient was extubated uneventfully, and at present seems to be doing well. She is only on 2 L nasal cannula, and O2 saturations 97%. Vital signs are reviewed temperature of 99.3, pulse 90, respirations 17 and blood pressure 149/80 Chest x-ray is showing minimal bibasilar opacity/atelectasis. Her indwelling tubes and catheters are unchanged. Clinically the patient is doing great, she is not requiring any inotropes or any pressors. A todd is achieving about 500 mL with her incentive spirometer. WBC count is 7.6 hemoglobin is 8. Her electrolytes are normal 07/14/2021 Patient is seen and evaluated sitting up in a bedside recliner; was successfully extubated yesterday Vital signs are reviewed and remained stable with a temperature of 98.5, pulse 71, respiration 15 and blood pressure of 9659 Thoracic surgery on board recommending to continue with aspirin, statin, Plavix and beta blockers with plans to increase beta aixa therapy as tolerated; patient will be started on low-dose herber for afterload reduction and blood pressure is more stable; continue with amiodarone for prophylactic prevention of atrial fibrillation Continue to increase activity; PT/OT/cardiac rehab 07/15/2021 patient is seen and evaluated in ICU; postoperative day #3; sitting in a reclin er, on 2 L nasal cannula, does not seem to be in any distress. Reports fair pain control. She is in sinus rhythm, blood pressure is marginal and her urine output was noted to be a bit on the low side. She did receive a unit of packed RBCs yesterday for hemoglobin of 6.8. She is on a low dose of norepinephrine with minimal improvement in her blood pressure. But no significant improvement noted in urine output. Continues to have left-sided pleural chest tube in place. Lab review shows WBC of 9.0, hemoglobin 9.2, platelets of 135, sodium 136, potassium 3.9, BUN/creatinine of 2019/0.96 Chest x-ray showed mostly atelectasis at the bases, no evidence of congestive heart failure. Continue aspirin statins and Plavix as well as beta blockers; oral amiodarone. Continue pain control Objective - Vital Signs Vital signs: Vital Signs Temp 97.6 F 07/15/21 16:00 Pulse 66 07/15/21 19:00 Resp 13 07/15/21 19:00 BP 90/61 07/15/21 12:00 Pulse Ox 92 L 07/15/21 19:00 Intake & Output 07/15/21 07/15/21 07/16/21 06:59 18:59 06:59 Intake Total 749.056 1292.005 49.912 Output Total 285 180 10 Balance 021.683 7228.005 39.912 Weight 54 kg Intake: IV 422 429 26 Pressure bags 72 69 6 Sodium Chloride 0.9% 1, 350 360 20 000 ml @ 20 mls/hr IV . Q24H [facility] Rx#:[id number] Intake, IV Titration .028 53.005 23.912 Amount Norepinephrine 4 mg In . 53.005 23.912 Sodium Chloride 0.9% 250 ml @ 0.05 MCG/KG/MIN 9. 963 mls/hr IV .Q24H [facility] Rx#:[id number] Oral 240 1050 Tube Feeding 240 Output: Chest Tube Drainage 120 Chest Tube Left Lower 120 Lateral Chest Urine 165 180 10 Other: Voiding Method Indwelling Catheter Indwelling Catheter ABP, PAP, CO, CI - Last Documented Arterial Blood Pressure 121/52 Pulmonary Artery Pressure 26/10 Cardiac Output 4.3 Cardiac Index 2.8 - Exam GENERAL: The patient is alert and oriented x3, not in any acute distress. Well developed, well nourished. HEENT: Pupils are round and equally reacting to light. EOMI. No scleral icterus. No conjunctival pallor. Normocephalic, atraumatic. No pharyngeal erythema. No thyromegaly. CARDIOVASCULAR: S1 and S2 present. No murmurs, rubs, or gallops. PULMONARY: Chest is clear to auscultation, no wheezing or crackles. ABDOMEN: Soft, nontender, nondistended, normoactive bowel sounds. No palpable organomegaly. MUSCULOSKELETAL: No joint swelling or deformity. EXTREMITIES: No cyanosis, clubbing, patient does have pedal edema patient has a cast in the left leg. NEUROLOGICAL: Gross neurological examination did not reveal any focal deficits. SKIN: No rashes. - Labs CBC & Chem 7: 07/15/21 04:30 07/15/21 04:30 Labs: Abnormal Lab Results - Last 24 Hours (Table) 07/15/21 07/15/21 07/15/21 Range/Units 04:30 04:30 06:22 RBC 2.96 L (3.80-5.40) m/uL Hgb 9.2 L (11.4-16.0) gm/dL Hct 28.5 L (34.0-46.0) % RDW 16.6 H (11.5-15.5) % Plt Count 135 L (150-450) k/uL Sodium 136 L (137-145) mmol/L BUN 29 H (7-17) mg/dL Glucose 193 H (74-99) mg/dL POC Glucose (mg/dL) 204 H (75-99) mg/dL Calcium 8.2 L (8.4-10.2) mg/dL AST 59 H (14-36) U/L Total Protein 4.8 L (6.3-8.2) g/dL Albumin 2.7 L (3.5-5.0) g/dL 07/15/21 07/15/21 07/15/21 Range/Units 11:23 16:19 20:19 RBC (3.80-5.40) m/uL Hgb (11.4-16.0) gm/dL Hct (34.0-46.0) % RDW (11.5-15.5) % Plt Count (150-450) k/uL Sodium (137-145) mmol/L BUN (7-17) mg/dL Glucose (74-99) mg/dL POC Glucose (mg/dL) 260 H 352 H 309 H (75-99) mg/dL Calcium (8.4-10.2) mg/dL AST (14-36) U/L Total Protein (6.3-8.2) g/dL Albumin (3.5-5.0) g/dL Assessment and Plan Assessment: Assessment and plan -Acute non-ST elevation myocardial infarction: Patient is status post cardiac catheterization triple-vessel disease cardiothoracic surgery evaluation -Acute hypoxic respiratory failure most probably secondary to congestive heart failure chronic systolic dysfunction with acute exacerbation patient was started on low-dose of Lasix patient blood pressure is borderline low. Patient is on lisinopril which will be continued as well along with Aldactone. Pneumonia ruled out for calcitonin is low. -Nicotine use: Counseling was provided -Type 2 diabetes mellitus -Hyperlipidemia 1 possible hypervolemic hyponatremia
[2021-07-15] MEDS: NOREPINEPHRINE 4 MG in SODIUM CHLORIDE 0.9% 250 ML IV SCH (23:57)
[2021-07-16] MEDS: HYDROcodone/APAP 10-325MG 1 EACH TAB PO PRN ×4 (01:04→20:52)
[2021-07-16] MEDS: HEPARIN SODIUM,PORCINE/PF 5,000 UNIT/0.5 ML SYRINGE SQ SCH ×3 (01:04→16:38)
[2021-07-16] MEDS: KETOROLAC 30 MG/ML 1 ML VIAL IVP PRN ×2 (04:57→11:24)
[2021-07-16 05:18] LABS: Albumin 2.6 g/dL (3.5-5.0); Calcium 7.8 mg/dL (8.4-10.2); Magnesium 2.1 mg/dL (1.6-2.3); Potassium 4.5 mmol/L (3.5-5.1); Total Bilirubin 0.5 mg/dL (0.2-1.3); Total Protein 4.8 g/dL (6.3-8.2)
[2021-07-16 05:53] LABS: HCT 28.1 % (34.0-46.0); HGB 8.9 gm/dL (11.4-16.0); Hypochromasia Moderate; MCH 30.4 pg (25.0-35.0); MCHC 31.6 g/dL (31.0-37.0); MCV 96.2 fL (80.0-100.0); Mean Platelet Volume 9.2; Platelet Count 172 k/uL (150-450); RBC 2.92 m/uL (3.80-5.40); RDW 15.7 % (11.5-15.5); WBC 9.6 k/uL (3.8-10.6)
[2021-07-16] MEDS: PANTOPRAZOLE 40 MG TABLET PO SCH (07:00)
[2021-07-16] MEDS: MIDODRINE 5 MG TAB PO SCH ×4 (07:00→16:38)
[2021-07-16] MEDS: INSULIN ASPART (NovoLOG) 100 UNIT/ML VIAL SQ SCH ×4 (07:01→20:52)
[2021-07-16] MEDS ORDERED: CALCIUM GLUCONATE 2 GM in SODIUM CHLORIDE 0.9% 100 ML IVPB ONE (07:30)
--- NOTE | 2021-07-16 08:24 | XR ---
EXAMINATION TYPE: XR chest 1V portable DATE OF EXAM: 07/16/2021 Comparison: 07/15/2021 Clinical History: 61 year-old female post cardiac surgery Findings: Median sternotomy wires are present with postoperative clips in the mediastinum. Retained epicardial pacer leads are suspected. Right IJ sheath remains in place. Continued retrocardiac opacity. Slight i ncreasing left basilar opacity. Increasing opacity at the right mid and lower lung. No appreciable pn eumothorax. Impression: Post CABG changes with increasing bibasilar opacities, right greater than left, likely combination of pleural effusions with adjacent atelectasis and/or consolidation.
[2021-07-16] MEDS ORDERED: METOCLOPRAMIDE 5 MG/ML 2 ML VIAL IM STA (08:33)
[2021-07-16] MEDS: IPRATROPIUM-ALBUTEROL 3 ML NEB INHALATION SCH ×4 (08:36→19:45)
[2021-07-16] MEDS: SYMBICORT 160-4.5 MCG INHALER INHALATION SCH ×2 (08:36→19:45)
[2021-07-16] MEDS: METOPROLOL TARTRATE 12.5 MG TAB PO SCH ×2 (08:54→20:51)
[2021-07-16] MEDS: GABAPENTIN 100 MG CAP PO SCH ×2 (08:55→20:52)
[2021-07-16] MEDS: DULoxetine HCL 30 MG CAPSULE.DR PO SCH (08:55)
[2021-07-16] MEDS: ASPIRIN 325 MG TAB PO SCH (08:55)
[2021-07-16] MEDS: CLOPIDOGREL 75 MG TAB PO SCH (08:55)
[2021-07-16] MEDS: ATORVASTATIN 40 MG TAB PO SCH (08:55)
--- NOTE | 2021-07-16 09:14 | P.PN ---
Subjective Progress Note Date: 07/16/21 Principal diagnosis: Multivessel coronary artery disease, NSTEMI this admission, acute on chronic systolic heart failure, bilateral pneumonia with pleural effusions this admission. Previous medical history of cardiomopathy, hypertension, hyperlipidemia, uncontrolled insulin-dependent diabetes mellitus with hyperglycemia, osteoarthritis, insomnia, degenerative disc disease, pneumonia, C. difficile, depression, fibromyalgia, chronic pain syndrome, current ongoing tobacco abuse, COPD, recent fall from standing with broken foot with non-weight bearing status, recent accidental overdose according to the patient, preoperative normocytic normochromic anemia POD #4 triple vessel coronary artery bypass grafting using the left internal mammary artery sequentially in a [id number] fashion to the mid left anterior descending artery, then in an end to side fashion to the distal left anterior descending artery, reverse saphenous vein graft from the aorta to the first obtuse marginal artery, reverse saphenous vein graft from the aorta to the right coronary artery after the takeoff of the early arising posterior descending artery, exclusion of the left atrial appendage using a 35 mm AtriClip, sternal plating using the [employer] system, harvesting of the right greater saphenous vein from the groin to above the ankle level, intraoperative transesophageal echocardiogram and epi-aortic scanning, intraoperative graft flow measurements using the [employer] system Postoperative acute blood loss anemia and thrombocytopenia, expected outcomes given cardiopulmonary bypass pump and hemodilution as well as preoperative anemia The patient was seen and examined this morning in the intensive care unit sitting up in the recliner in no acute distress. Continues to complain of pain in her left lower extremity, states postsurgical pain is controlled on current home medication regimen, denies shortness of breath. Remains in sinus bradycardia with heart rate in the mid 50s. Blood pressure was marginal was better yesterday on low-dose levo with midodrine added, urine output remains low. Right internal jugular Cordis, right radial arterial line remain. Objective - Vital Signs Vital signs: Vital Signs Temp 98.2 F 07/15/21 20:00 Pulse 55 L 07/16/21 07:00 Resp 10 L 07/16/21 07:00 BP 99/62 07/16/21 07:00 Pulse Ox 93 L 07/16/21 07:00 Intake & Output 07/15/21 07/16/21 07/16/21 18:59 06:59 18:59 Intake Total 1772.005 360.122 26 Output Total 180 130 10 Balance 1592.005 230.122 16 Intake: IV 429 312 26 Pressure bags 69 72 6 Sodium Chloride 0.9% 1, 360 240 20 000 ml @ 20 mls/hr IV . Q24H [facility] Rx#:[id number] Intake, IV Titration 53.005 48.122 Amount Norepinephrine 4 mg In 53.005 48.122 Sodium Chloride 0.9% 250 ml @ 0.05 MCG/KG/MIN 9. 963 mls/hr IV .Q24H [facility] Rx#:[id number] Oral 1050 Tube Feeding 240 Output: Urine 180 130 10 Other: Voiding Method Indwelling Catheter Indwelling Catheter ABP, PAP, CO, CI - Last Documented Arterial Blood Pressure 112/57 Pulmonary Artery Pressure 26/10 Cardiac Output 4.3 Cardiac Index 2.8 - Exam CONSTITUTIONAL: Appears comfortable, cooperative, no acute distress RESPIRATORY: Lungs sounds diminished bilaterally. Respirations even, nonlabored. Currently on 2 L nasal cannula with oxygen saturation 93%. Able to achieve 800 mL on her incentive spirometry. Strong productive cough CARDIOVASCULAR: S1, S2 present. Regular rate and rhythm, sinus bradycardia on telemetry. Sternum stable. Palpable peripheral pulses bilaterally except where cast present to left lower extremity. No edema present. No calf pain or tenderness noted. Heart hugger, antiembolism stockings, SCDs present. GASTROINTESTINAL: Abdomen soft, nontender, nondistended. Active bowel sounds present 4 quadrants. Tolerating diet, positive bowel movement GENITOURINARY: Valencia present draining clear, yellow urine. Output overnight 10-15 mL per hour, 300 mL in the last 24 hours INTEGUMENTARY: Skin is warm and dry with evidence of good perfusion. Anterior chest incision well approximated and covered with dry intact dressing. Right lower extremity EVH site well approximated without redness or drainage. NEUROLOGIC: Cranial nerves II through XII intact MUSKULOSKELETAL: Able to move all extremities, strength equal bilaterally, patient is very weak and unable to bear weight on her left leg due to fracture/cast PSYCHIATRIC: Alert and oriented to person, place, time, following all commands, calm and cooperative INVASIVE LINES AND TUBES: Atrial epicardial pacemaker wires present, grounded. Right internal jugular Cordis, right radial arterial line present. - Allied health notes Allied health notes reviewed: nursing - Labs CBC & Chem 7: 07/16/21 04:35 07/16/21 04:35 Labs: Abnormal Lab Results - Last 24 Hours (Table) 07/15/21 07/15/21 07/15/21 Range/Units 11:23 16:19 20:19 RBC (3.80-5.40) m/uL Hgb (11.4-16.0) gm/dL Hct (34.0-46.0) % RDW (11.5-15.5) % Sodium (137-145) mmol/L BUN (7-17) mg/dL Creatinine (0.52-1.04) mg/dL Glucose (74-99) mg/dL POC Glucose (mg/dL) 260 H 352 H 309 H (75-99) mg/dL Calcium (8.4-10.2) mg/dL AST (14-36) U/L Total Protein (6.3-8.2) g/dL Albumin (3.5-5.0) g/dL 07/16/21 07/16/21 Range/Units 04:35 04:35 RBC 2.92 L (3.80-5.40) m/uL Hgb 8.9 L (11.4-16.0) gm/dL Hct 28.1 L (34.0-46.0) % RDW 15.7 H (11.5-15.5) % Sodium 133 L (137-145) mmol/L BUN 39 H (7-17) mg/dL Creatinine 1.22 H (0.52-1.04) mg/dL Glucose 239 H (74-99) mg/dL POC Glucose (mg/dL) (75-99) mg/dL Calcium 7.8 L (8.4-10.2) mg/dL AST 42 H (14-36) U/L Total Protein 4.8 L (6.3-8.2) g/dL Albumin 2.6 L (3.5-5.0) g/dL - Imaging and Cardiology Chest x-ray: image reviewed Assessment and Plan Assessment: 1. Multivessel coronary artery disease, NSTEMI this admission, status post three-vessel CABG 2. Acute on chronic systolic heart failure, EF 30-35% 3. Bilateral pneumonia with pleural effusions this admission 4. History of cardiomopathy 5. Hypertension 6. Hyperlipidemia, treated, cholesterol 128, LDL 60 7. Uncontrolled insulin-dependent diabetes mellitus with hyperglycemia, hemoglobin AIc 10.2% 8. Current ongoing tobacco abuse 9. Severe COPD with preoperative FEV1 48% of predicted 10. Recent fall from standing with broken foot with non-weight bearing status 11. History of C. difficile 12. Depression 13. Fibromyalgia, chronic pain syndrome, osteoarthritis 14. Recent accidental overdose according to the patient 15. Preoperative normocytic, normochromic anemia, postoperative acute blood loss anemia and thrombocytopenia, expected Plan: 1. Continue ASA, statin, Plavix, low dose beta aixa therapy. Wean levo as tolerated, will increase midodrine to 10 mg 3 times a day 2. Discontinue oral amiodarone 3. Encourage incentive spirometry use 10 times every hour while awake. Bronchodilators per pulmonology 4. Increase activity as tolerated. PT/OT/cardiac rehab following. Patient will need rehab at discharge due to challenging ambulation with cast, plan is for [facility] 5. Will monitor daily labs and x-rays. Electrolyte replacement per protocol. No further transfusion. Will give 1 dose zaroxyln followed by 20 mg IVP lasix x 1 6. Pain control with current medication regimen. 7. Insulin management per primary care service. Patient is an uncontrolled diabetic with preoperative hemoglobin A1c 10.2%, blood sugars still in 200s, needs tighter control 8. Continue Valencia catheter, cordis for 1 more day 9. Strict accurate intake and output. Daily weights 10. Will consult orthopedics for patient's left foot fracture for recommendations regarding weight bearing status; patient has had cast for 3 weeks 11. More recommendations to follow Time with Patient: Greater than 30
[2021-07-16] MEDS ORDERED: metOLazone 5 MG TAB PO ONE (09:30)
[2021-07-16] MEDS ORDERED: FUROSEMIDE 10 MG/ML 2 ML VIAL IV ONE (09:30)
[2021-07-16] MEDS: SODIUM CHLORIDE 0.9% 1,000 ML IV SCH (11:32)
[2021-07-16 11:33] LABS: Glucose,Whole Blood 220 mg/dL (75-99)
--- NOTE | 2021-07-16 11:40 | PN ---
PROGRESS NOTE Mrs. Falcon is a 61-year-old female with a history of coronary artery disease, history of diabetes mellitus, diabetic neuropathy and hyperlipidemia who had a fall and subsequent dyspnea, presented with non-STEMI. She subsequently underwent cardiac catheterization that revealed severe triple-vessel coronary artery disease. Her echocardiogram on presentation showed an ejection fraction of 30% to 35%. Subsequently the patient underwent coronary bypass grafting and received a SY to the LAD and jumping to the distal LAD, saphenous vein graft to the first obtuse marginal branch and saphenous vein graft to the right coronary artery with exclusion of the left atrial appendage. She is awake, alert, sitting up in the chair, feeling well. Her blood pressure has been on the lower side and she is requiring low-dose norepinephrine to maintain her blood pressure. She continues to be in sinus mechanism. Her urine output remains low. She has a history of severe chronic obstructive lung disease. She continues to be at this time on amiodarone 400 mg twice a day, aspirin once a day, Lipitor 40 mg daily, Plavix 75 mg daily, metoprolol tartrate 12.5 mg twice a day and midodrine 10 mg 3 times a day. PHYSICAL EXAMINATION: Blood pressure is running in the 90s to low 100s with a heart rate in the 60s. Lungs with a few crackles at the bases. No wheezes. Heart: Regular rate and rhythm. S1, S2. No S3. No rub appreciated. Abdomen is soft, nontender. Extremities: No edema. LAB DATA: BUN and creatinine 39 and 1.22, which is worse than yesterday. Potassium 4.5. Hemoglobin 8.9. IMPRESSION: 1. Status post coronary artery bypass grafting. 2. Severe cardiomyopathy. 3. Hypotension; patient on midodrine and norepinephrine. 4. Low urine output. 5. Hyperlipidemia. 6. Chronic obstructive lung disease. 7. Diabetes mellitus. RECOMMENDATIONS: From the cardiac standpoint, I will continue the present therapy. Continue to follow her blood pressure. Hopefully we can wean the norepinephrine off. Follow her renal function closely and, depending on her progress, further recommendations will be made. MMCHINOL / CORTNEYN: [id number] /
--- NOTE | 2021-07-16 11:43 | P.PN ---
Subjective Progress Note Date: 07/16/21 Principal diagnosis: Multivessel coronary artery disease, non-ST elevated myocardial infarction, three-vessel coronary artery bypass grafting On 07/16/2021 patient seen in follow-up in the intensive care unit, she is awake and alert, she sits up in a recliner, currently on 4 L of oxygen, breathing comfortably, her sat is 90-92%, her vital signs have been stable, she's been afebrile. Her chest x-ray has been reviewed showing median sternotomy with postoperative clips in the mediastinum, increasing bibasilar opacities right greater than left with the likely combination of pleural effusions and adjacent atelectasis and/or consolidation. Patient is currently on IV fluids at 30 ML per hour with 0.9 normal saline, and levothyroid is currently at 1 mono per minute. Patient denies any shortness of breath, she does complain of left lower extremity. She is in sinus mechanism, with a rate in the 50s. Blood pressures have been marginal, and she is requiring low-dose norepi nephrine, and she continues on midodrine for blood pressure support. Chest tubes have been removed. Today's labs have been reviewed, orbital, is 9.6, hemoglobin is 8.9, platelet is 172, sodium is 133, potassium is 4.5, chloride is 105, B1 is 39, creatinine is 1.2. Objective - Vital Signs Vital signs: Vital Signs Temp 97.6 F 07/16/21 08:00 Pulse 60 07/16/21 11:00 Resp 9 L 07/16/21 11:00 BP 99/62 07/16/21 07:00 Pulse Ox 92 L 07/16/21 11:00 Intake & Output 07/15/21 07/16/21 07/16/21 18:59 06:59 18:59 Intake Total 1772.005 360.122 382.951 Output Total 180 130 70 Balance 1592.005 230.122 312.951 Intake: IV 429 312 270 Calcium Gluconate 2 gm In 100 Sodium Chloride 0.9% 100 ml @ 100 mls/hr IVPB ONCE ONE Rx#:[id number] Pressure bags 69 72 30 Sodium Chloride 0.9% 1, 360 240 140 000 ml @ 20 mls/hr IV . Q24H [facility] Rx#:[id number] Intake, IV Titration 53.005 48.122 12.951 Amount Norepinephrine 4 mg In 53.005 48.122 12.951 Sodium Chloride 0.9% 250 ml @ 0.05 MCG/KG/MIN 9. 963 mls/hr IV .Q24H [facility] Rx#:[id number] Oral 1050 100 Tube Feeding 240 Output: Urine 180 130 70 Other: Voiding Method Indwelling Catheter Indwelling Catheter Indwelling Catheter ABP, PAP, CO, CI - Last Documented Arterial Blood Pressure 111/47 Pulmonary Artery Pressure 26/10 Cardiac Output 4.3 Cardiac Index 2.8 - Exam GENERAL EXAM: Alert, pleasant, 61-year-old white female, sitting up in the recliner, currently on 4 L of oxygen with a pulse ox of 92%, comfortable in no apparent distress. HEAD: Normocephalic/atraumatic. EYES: Normal reaction of pupils, equal size. Conjunctiva pink, sclera white. NOSE: Clear with pink turbinates. THROAT: No erythema or exudates. NECK: No masses, no JVD, no thyroid enlargement, no adenopathy. CHEST: No chest wall deformity. Symmetrical expansion. Midsternal incision is clean dry and intact, chest tube sites are clean dry and intact, interval removal of chest tubes, LUNGS: Equal air entry with no crackles, wheeze, rhonchi or dullness. CVS: Regular rate and rhythm, normal S1 and S2, no gallops, no murmurs, no rubs ABDOMEN: Soft, nontender. No hepatosplenomegaly, normal bowel sounds, no guarding or rigidity. EXTREMITIES: No clubbing, no edema, no cyanosis, 2+ pulses and upper and lower extremities. Left lower extremity incision is covered with surgical dressing, SCDs on bilateral legs MUSCULOSKELETAL: Muscle strength and tone normal. SPINE: No scoliosis or deformity SKIN: No rashes CENTRAL NERVOUS SYSTEM: Alert and oriented -3. No focal deficits, tone is normal in all 4 extremities. PSYCHIATRIC: Alert and oriented -3. Appropriate affect. Intact judgment and insight. - Labs CBC & Chem 7: 07/16/21 04:35 07/16/21 04:35 Labs: Abnormal Lab Results - Last 24 Hours (Table) 07/15/21 07/15/21 07/16/21 Range/Units 16:19 20:19 04:35 RBC 2.92 L (3.80-5.40) m/uL Hgb 8.9 L (11.4-16.0) gm/dL Hct 28.1 L (34.0-46.0) % RDW 15.7 H (11.5-15.5) % Sodium (137-145) mmol/L BUN (7-17) mg/dL Creatinine (0.52-1.04) mg/dL Glucose (74-99) mg/dL POC Glucose (mg/dL) 352 H 309 H (75-99) mg/dL Calcium (8.4-10.2) mg/dL AST (14-36) U/L Total Protein (6.3-8.2) g/dL Albumin (3.5-5.0) g/dL 07/16/21 Range/Units 04:35 RBC (3.80-5.40) m/uL Hgb (11.4-16.0) gm/dL Hct (34.0-46.0) % RDW (11.5-15.5) % Sodium 133 L (137-145) mmol/L BUN 39 H (7-17) mg/dL Creatinine 1.22 H (0.52-1.04) mg/dL Glucose 239 H (74-99) mg/dL POC Glucose (mg/dL) (75-99) mg/dL Calcium 7.8 L (8.4-10.2) mg/dL AST 42 H (14-36) U/L Total Protein 4.8 L (6.3-8.2) g/dL Albumin 2.6 L (3.5-5.0) g/dL Assessment and Plan Plan: Assessment: #1. Multivessel coronary artery disease, status post three-vessel coronary artery bypass grafting #2. Routine postoperative ventilator management #3. Acute non-ST elevated myocardial infarction this admission #4. Ischemic cardiomyopathy #5. Acute hypoxic respiratory failure related to atelectasis and bibasilar pleural effusions #6. Hypertension #7. Hyperlipidemia #8. Severe COPD with preoperative FEV1 of 40% of predicted #9. Recent fall sustaining injury to her left foot, with soft tissue edema about the ankle, but no fracture or dislocation to the ankle or the left foot #10. Chronic systolic CHF #11. Depression #12. Osteoarthritis #13. 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 No worsening dyspnea. Patient received a dose of IV Lasix per CT surgery Continue encouraging deep breathing and coughing and incentive spirometer use We'll continue to follow with CT surgery make further recommendations I performed a history & physical examination of the patient and discussed their management with my nurse practitioner, Makenna Cheng. I reviewed the nurse practitioner's note and agree with the documented findings and plan of care. Lung sounds are positive for dim with crackles throughout the lung santiago. The findings and the impression was discussed with the patient. I attest to the documentation by the nurse practitioner. Time with Patient: Less than 30
[2021-07-16 11:45] LABS: Glucose,Whole Blood 183 mg/dL (75-99)
[2021-07-16] MEDS: ACETYLCYSTEINE 800 MG/4 ML VIAL INHALATION SCH ×3 (11:58→19:46)
[2021-07-16] MEDS ORDERED: INSULN ASP PRT/INSULIN ASPART 100 UNIT/ML 10 ML VIAL SQ ONE (15:03)
[2021-07-16 16:32] LABS: Glucose,Whole Blood 231 mg/dL (75-99)
[2021-07-16] MEDS: INSULN ASP PRT/INSULIN ASPART 100 UNIT/ML 10 ML VIAL SQ SCH (16:37)
[2021-07-16] MEDS: SENNOSIDES-DOCUSATE SODIUM 1 EACH TAB PO SCH (20:51)
[2021-07-16] MEDS: MELATONIN 3 MG TABLET PO SCH (20:51)
[2021-07-16 20:53] LABS: Glucose,Whole Blood 258 mg/dL (75-99)
[2021-07-16] MEDS ORDERED: INSULIN DETEMIR (LEVEMIR) 100 UNIT/ML SYR SQ SCH (21:00)
--- NOTE | 2021-07-16 22:54 | P.PN ---
Subjective Progress Note Date: 07/16/21 Acute non-ST elevation GA Status post cardiac catheterization revealing triple-vessel coronary artery disease Acute hypoxic respiratory failure Acute exacerbation systolic CHF Patient is a 61-year-old female came in the appearance of left-sided chest pain and also shortness of breath and patient the had a cast from her recent for for calcaneal fracture. Patient has EF of around 25-30% only on Aldactone at home it appears to be in a bit of heart failure with bilateral pleural effusion CT of the chest showed some infiltrate but no work program. Patient denied any cough. Patient had any fever chills. Patient is found to have mildly elevated troponin. Please refer to theatre professor documentation for EKG reading. Patient was evaluated by cardiology and they're recommending catheterization today. 07/11/2021 Patient is seen and evaluated sitting up in bedside chair; denies any complaint of chest pain or shortness of breath but does report feeling anxious about scheduled surgery tomorrow Vital signs are reviewed and remained stable; blood pressure at 122/62 Patient is status post cardiac catheterization which revealed severe triple vessel coronary artery disease; cardiothoracic surgery on board and CABG is planned for tomorrow Patient has been taken off lisinopril given planned surgery tomorrow morning; remains stable on rest of current medications 07/12/2021 Patient is seen and evaluated; denies any complaint of chest pain or shortness of breath; feels anxious and overwhelmed for upcoming surgery this morning Vital signs reveal temperature 98.2, pulse 87, respiration 19 and blood pressure 128/67 with O2 saturation 92% on 2 L Labs revealed WBC 6.2, hemoglobin 10.1, platelet count of 272, blood glucoses ranging between 142-177 Patient is scheduled for OR for CABG 07/13/2021 patient is status post CABG, POD #1, she had triple-vessel urinary artery bypass grafting. Did very well overnight, patient was extubated uneventfully, and at present seems to be doing well. She is only on 2 L nasal cannula, and O2 saturations 97%. Vital signs are reviewed temperature of 99.3, pulse 90, respirations 17 and blood pressure 149/80 Chest x-ray is showing minimal bibasilar opacity/atelectasis. Her indwelling tubes and catheters are unchanged. Clinically the patient is doing great, she is not requiring any inotropes or any pressors. A todd is achieving about 500 mL with her incentive spirometer. WBC count is 7.6 hemoglobin is 8. Her electrolytes are normal 07/14/2021 Patient is seen and evaluated sitting up in a bedside recliner; was successfully extubated yesterday Vital signs are reviewed and remained stable with a temperature of 98.5, pulse 71, respiration 15 and blood pressure of 9659 Thoracic surgery on board recommending to continue with aspirin, statin, Plavix and beta blockers with plans to increase beta aixa therapy as tolerated; patient will be started on low-dose herber for afterload reduction and blood pressure is more stable; continue with amiodarone for prophylactic prevention of atrial fibrillation Continue to increase activity; PT/OT/cardiac rehab 07/15/2021 patient is seen and evaluated in ICU; postoperative day #3; sitting in a recliner, on 2 L nasal cannula, does not seem to be in any distress. Reports fair pain control. She is in sinus rhythm, blood pressure is marginal and her urine output was noted to be a bit on the low side. She did receive a unit of packed RBCs yesterday for hemoglobin of 6.8. She is on a low dose of norepinephrine with minimal improvement in her blood pressure. But no significant improvement noted in urine output. Continues to have left-sided pleural chest tube in place. Lab review shows WBC of 9.0, hemoglobin 9.2, platelets of 135, sodium 136, potassium 3.9, BUN/creatinine of 2019/0.96 Chest x-ray showed mostly atelectasis at the bases, no evidence of congestive heart failure. Continue aspirin statins and Plavix as well as beta blockers; oral amiodarone. Continue pain control 07/16/2021 Patient is seen and evaluated and follow-up continues to be closely monitored in the ICU with multiple medical consultations following. Sugars have been elevated and patient normally takes 70/30 28 units twice daily and will add and continued sliding scale as well. Blood pressure running low and midodrine being increased. Oral amiodarone being discontinued. Chest xray today shows bibasilar opacities right greater than the left component of effusions with atelectasis. Encouraged incentive spirometer at least 10 times every hour while awake. Will be given a dose of lasix. Patient continues with left lower extremity cast and orthopedics consulted. Patient is non-weightbearing and will need continued PT/OT therapy. Social work following as well for possible rehab on discharge. Labs: White blood count is 9.6, hemoglobin is 8.9, platelets are 172, sodium 133, potassium 4.5, BUN 39, creatinine 1.2 to, magnesium 2.1 Review of systems: Constitutional: No reports of fatigue, fever, or chills Cardiovascular: No reports of chest pain or palpitations Respiratory: No reports of worsening shortness of breath, reports occasional cough GI: No reports of nausea, vomiting, or diarrhea : No reports of dysuria or retention Neurovascular: reports of generalized weakness, left leg pain All medications have been reviewed Active Medications Acetaminophen (Acetaminophen Tab 325 Mg Tab) 650 mg PO Q4HR PRN PRN Reason: Fever and/ or Pain Hydrocodone Bitart/Acetaminophen (Hydrocodone/Apap 10-325mg 1 Each Tab) 1 each PO Q8HR PRN PRN Reason: Pain Acetylcysteine (Acetylcysteine 800 Mg/4 Ml Vial) 200 mg INHALATION RT-QID [facility] Last Admin: 07/16/21 15:32 Dose: 200 mg Documented by: Albuterol/Ipratropium (Ipratropium-Albuterol 3 Ml Neb) 3 ml INHALATION RT-Q2H PRN PRN Reason: Shortness Of Breath Or Wheezing Albuterol/Ipratropium (Ipratropium-Albuterol 3 Ml Neb) 3 ml INHALATION RT-QID [facility] Last Admin: 07/16/21 15:33 Dose: 3 ml Documented by: Aspirin (Aspirin 325 Mg Tab) 325 mg PO DAILY [facility] Last Admin: 07/16/21 08:55 Dose: 325 mg Documented by: Atorvastatin Calcium (Atorvastatin 40 Mg Tab) 40 mg PO DAILY [facility] Last Admin: 07/16/21 08:55 Dose: 40 mg Documented by: Benzocaine/Menthol (Benzocaine/Menthol Lozeng 1 Each Lozenge) 1 each MUCOUS MEM Q2H PRN PRN Reason: Sore Throat Bisacodyl (Bisacodyl 10 Mg Supp) 10 mg RECTAL DAILY PRN PRN Reason: Constipation Budesonide/Formoterol Fumarate (Symbicort 160-4.5 Mcg Inhaler) 2 puff INHALATION RT-BID [facility] Last Admin: 07/16/21 08:36 Dose: 2 puff Documented by: Clopidogrel Bisulfate (Clopidogrel 75 Mg Tab) 75 mg PO DAILY [facility] Last Admin: 07/16/21 08:55 Dose: 75 mg Documented by: Duloxetine HCl (Duloxetine Hcl 30 Mg Capsule.Dr) 30 mg PO DAILY [facility] Last Admin: 07/16/21 08:55 Dose: 30 mg Documented by: Gabapentin (Gabapentin 100 Mg Cap) 100 mg PO DAILY [facility] Gabapentin (Gabapentin 100 Mg Cap) 100 mg PO HS [facility] Heparin Sodium (Porcine) (Heparin Sodium,Porcine/Pf 5,000 Unit/0.5 Ml Syringe) 5,000 unit SQ Q8HR [facility] Last Admin: 07/16/21 08:54 Dose: 5,000 unit Documented by: Amiodarone HCl 150 mg/ (Dextrose/Water) 103 mls @ 618 mls/hr IV .Q10M PRN; Protocol PRN Reason: A.FIB/FLUTTER Amiodarone HCl 360 mg/ (Dextrose/Water) 207.2 mls @ 34.533 mls/hr IV .Q6H PRN; Protocol PRN Reason: A.FIB/FLUTTER Amiodarone HCl 450 mg/ (Dextrose/Water) 250 mls @ 16.667 mls/hr IV .Q15H PRN; Protocol PRN Reason: A.FIB/FLUTTER Sodium Chloride (Saline 0.9%) 1,000 mls @ 20 mls/hr IV .Q24H [facility] Last Admin: 07/16/21 11:32 Dose: 20 mls/hr Documented by: Norepinephrine Bitartrate 4 mg (/ Sodium Chloride) 254 mls @ 9.963 mls/hr IV . Q24H [facility]; Protocol Last Titration: 07/16/21 14:08 Dose: 0.02 mcg/kg/min, 3.985 mls/hr Documented by: Insulin Aspart (Insulin Aspart (Novolog) 100 Unit/Ml Vial) 0 unit SQ ACHS [facility]; Protocol Last Admin: 07/16/21 11:32 Dose: 3 unit Documented by: Insulin Aspart (Insuln Asp Prt/Insulin Aspart 100 Unit/Ml 10 Ml Vial) 28 unit SQ AC-BID [facility] Magnesium Hydroxide (Magnesium Hydroxide 2,400 Mg/10 Ml Cup) 2,400 mg PO BID PRN PRN Reason: Constipation Last Admin: 07/16/21 14:34 Dose: 2,400 mg Documented by: Melatonin (Melatonin 3 Mg Tablet) 6 mg PO HS [facility] Last Admin: 07/15/21 20:47 Dose: 6 mg Documented by: Metoclopramide HCl (Metoclopramide 5 Mg/Ml 2 Ml Vial) 10 mg IVP Q4H PRN PRN Reason: Nausea And Vomiting Metoprolol Tartrate (Metoprolol Tartrate 12.5 Mg Tab) 12.5 mg PO BID [facility] Last Admin: 07/16/21 08:54 Dose: 12.5 mg Documented by: Midodrine (Midodrine 5 Mg Tab) 10 mg PO AC-TID [facility] Last Admin: 07/16/21 11:24 Dose: 10 mg Documented by: Miscellaneous Information (Potassium Replacement Protocol 1 Each Misc) 1 each MISCELLANE DAILY PRN; Protocol PRN Reason: Per Protocol Miscellaneous Information (Magnesium Replacement Protocol 1 Each Misc) 1 each MISCELLANE DAILY PRN; Protocol PRN Reason: Per Protocol Miscellaneous Information (Phosphorus Replacement Protoco 1 Each Misc) 1 each MISCELLANE DAILY PRN; Protocol PRN Reason: Per Protocol Ondansetron HCl (Ondansetron 4 Mg/2 Ml Vial) 4 mg IVP Q6HR PRN PRN Reason: Nausea And Vomiting Pantoprazole Sodium (Pantoprazole 40 Mg Tablet) 40 mg PO AC-BRKFST [facility] Last Admin: 07/16/21 07:00 Dose: 40 mg Documented by: Senna/Docusate Sodium (Sennosides-Docusate Sodium 1 Each Tab) 2 each PO [facility] Last Admin: 07/15/21 20:45 Dose: 2 each Documented by: Sodium Chloride (Sodium Chloride 0.9% Flush 10 Ml Syringe) 10 ml IV BID [facility] Last Admin: 07/16/21 08:55 Dose: 10 ml Documented by: Physical exam: Gen: This is a 61-year-old female awake, alert and oriented 3, well-developed, well-nourished. Temp is 97.6F, pulse is 56, respirations are 10, blood pressure arterial is 113/47, oxygen saturation is 91% on 4 L via nasal cannula HEENT: Head is atraumatic, normocephalic. Pupils equal, round. Sclerae is anicteric. NECK: Supple. No JVD. No lymphadenopathy. No thyromegaly. LUNGS: Clear to auscultation. No wheezes or rhonchi. No intercostal retractions. HEART: Regular rate and rhythm. No murmur. ABDOMEN: Soft. Bowel sounds are present. No masses. No tenderness. EXTREMITIES: No pedal edema. No calf tenderness. NEUROLOGICAL: Patient is awake, alert and oriented x3. Cranial nerves 2 through 12 are grossly intact. Assessment: -Acute non-ST elevation myocardial infarction: Patient is status post cardiac catheterization triple-vessel disease CABG -Acute hypoxic respiratory failure most probably secondary to congestive heart failure chronic systolic dysfunction with acute exacerbation -Pneumonia ruled out for calcitonin is low. -Continued ongoing Nicotine use: Counseling was provided -COPD, not in acute exacerbation -Type 2 diabetes mellitus, uncontrolled with hyperglycemia -Hyperlipidemia -hypervolemic hyponatremia -hypertension, currently hypotensive -fall with left foot fracture, recently with casting -GI prophylaxis -DVT prophylaxis -Full code Plan: Recommend to continue with current medications and management. Patient being followed closely by CT surgery along with cardiology and pulmonary. Orthopedics and PT consulted as patient is in a cast to the left lower extremity for recent fall with left foot fracture and is non-weightbearing to the left. Patient will need rehab on discharge once stabilized and discharged. Blood sugars remain elevated and will resume patients 70/30 BID of 28 units and will continue with sliding scale as well and recommend continuing accuchecks closely. Patient encouraged continued incentive spirometer use and increase exercise as to lerated. Will repeat am labs and continue to monitor closely. Blood pressures on the lower side and Midodrine being increased. Recommend to continue with breathing inhalational treatments. Due to multiple complex medical issues, prognosis is guarded. Objective - Vital Signs Vital signs: Vital Signs Temp 97.6 F 07/16/21 08:00 Pulse 60 07/16/21 10:00 Resp 8 L 07/16/21 10:00 BP 99/62 07/16/21 07:00 Pulse Ox 90 L 07/16/21 10:00 Intake & Output 07/15/21 07/16/21 07/16/21 18:59 06:59 18:59 Intake Total 1772.005 360.122 198 Output Total 180 130 40 Balance 1592.005 230.122 158 Intake: IV 429 312 198 Calcium Gluconate 2 gm In 100 Sodium Chloride 0.9% 100 ml @ 100 mls/hr IVPB ONCE ONE Rx#:[id number] Pressure bags 69 72 18 Sodium Chloride 0.9% 1, 360 240 80 000 ml @ 20 mls/hr IV . Q24H [facility] Rx#:[id number] Intake, IV Titration 53.005 48.122 Amount Norepinephrine 4 mg In 53.005 48.122 Sodium Chloride 0.9% 250 ml @ 0.05 MCG/KG/MIN 9. 963 mls/hr IV .Q24H [facility] Rx#:[id number] Oral 1050 Tube Feeding 240 Output: Urine 180 130 40 Other: Voiding Method Indwelling Catheter Indwelling Catheter Indwelling Catheter ABP, PAP, CO, CI - Last Documented Arterial Blood Pressure 121/49 Pulmonary Artery Pressure 26/10 Cardiac Output 4.3 Cardiac Index 2.8 - Labs CBC & Chem 7: 07/16/21 04:35 07/16/21 04:35 Labs: Abnormal Lab Results - Last 24 Hours (Table) 07/15/21 07/15/21 07/15/21 Range/Units 11:23 16:19 20:19 RBC (3.80-5.40) m/uL Hgb (11.4-16.0) gm/dL Hct (34.0-46.0) % RDW (11.5-15.5) % Sodium (137-145) mmol/L BUN (7-17) mg/dL Creatinine (0.52-1.04) mg/dL Glucose (74-99) mg/dL POC Glucose (mg/dL) 260 H 352 H 309 H (75-99) mg/dL Calcium (8.4-10.2) mg/dL AST (14-36) U/L Total Protein (6.3-8.2) g/dL Albumin (3.5-5.0) g/dL 07/16/21 07/16/21 Range/Units 04:35 04:35 RBC 2.92 L (3.80-5.40) m/uL Hgb 8.9 L (11.4-16.0) gm/dL Hct 28.1 L (34.0-46.0) % RDW 15.7 H (11.5-15.5) % Sodium 133 L (137-145) mmol/L BUN 39 H (7-17) mg/dL Creatinine 1.22 H (0.52-1.04) mg/dL Glucose 239 H (74-99) mg/dL POC Glucose (mg/dL) (75-99) mg/dL Calcium 7.8 L (8.4-10.2) mg/dL AST 42 H (14-36) U/L Total Protein 4.8 L (6.3-8.2) g/dL Albumin 2.6 L (3.5-5.0) g/dL
[2021-07-17] MEDS: HEPARIN SODIUM,PORCINE/PF 5,000 UNIT/0.5 ML SYRINGE SQ SCH ×3 (00:35→16:37)
[2021-07-17] MEDS: NOREPINEPHRINE 4 MG in SODIUM CHLORIDE 0.9% 250 ML IV SCH ×2 (04:35→06:57)
[2021-07-17] MEDS: HYDROcodone/APAP 10-325MG 1 EACH TAB PO PRN ×4 (04:35→22:27)
[2021-07-17 04:55] LABS: Anisocytosis Slight; HCT 27.6 % (34.0-46.0); HGB 8.7 gm/dL (11.4-16.0); Hypochromasia Marked; MCH 30.8 pg (25.0-35.0); MCHC 31.5 g/dL (31.0-37.0); Macrocytosis Slight; Mean Platelet Volume 8.3; Platelet Count 175 k/uL (150-450); RBC 2.82 m/uL (3.80-5.40); RDW 16.6 % (11.5-15.5); WBC 7.2 k/uL (3.8-10.6)
[2021-07-17 05:15] LABS: Calcium 8.2 mg/dL (8.4-10.2); Magnesium 2.2 mg/dL (1.6-2.3); Potassium 5.1 mmol/L (3.5-5.1)
[2021-07-17] MEDS: MIDODRINE 5 MG TAB PO SCH ×3 (06:58→17:43)
[2021-07-17] MEDS: INSULN ASP PRT/INSULIN ASPART 100 UNIT/ML 10 ML VIAL SQ SCH ×2 (06:58→18:06)
[2021-07-17] MEDS: PANTOPRAZOLE 40 MG TABLET PO SCH (06:58)
[2021-07-17 06:59] LABS: Glucose,Whole Blood 261 mg/dL (75-99)
[2021-07-17] MEDS: INSULIN ASPART (NovoLOG) 100 UNIT/ML VIAL SQ SCH ×4 (06:59→20:59)
[2021-07-17] MEDS: IPRATROPIUM-ALBUTEROL 3 ML NEB INHALATION SCH ×4 (07:29→20:41)
[2021-07-17] MEDS: SYMBICORT 160-4.5 MCG INHALER INHALATION SCH ×2 (07:29→20:42)
[2021-07-17] MEDS: ACETYLCYSTEINE 800 MG/4 ML VIAL INHALATION SCH ×4 (07:29→20:41)
--- NOTE | 2021-07-17 08:09 | XR ---
EXAMINATION TYPE: XR chest 1V portable DATE OF EXAM: 07/17/2021 COMPARISON: 07/16/2021 HISTORY: Shortness of breath FINDINGS: There are bilateral pleural effusions with cardiomegaly and bibasilar infiltrate. There is a diffuse interstitial pattern. Right-sided vascular sheath noted. Suggestion of previous surgical changes. IMPRESSION: 1. Stable diffuse bilateral infiltrate and pleural effusion correlate for pulmonary edema, ARDS or di ffuse pneumonia.
[2021-07-17] MEDS ORDERED: FUROSEMIDE 10 MG/ML 4 ML VIAL IV STA (08:14)
[2021-07-17] MEDS: METOPROLOL TARTRATE 12.5 MG TAB PO SCH ×2 (08:45→21:03)
--- NOTE | 2021-07-17 08:56 | P.PN ---
Subjective Progress Note Date: 07/17/21 Principal diagnosis: Multivessel coronary artery disease, NSTEMI this admission, acute on chronic systolic heart failure, bilateral pneumonia with pleural effusions this admission. Previous medical history of cardiomopathy, hypertension, hyperlipidemia, uncontrolled insulin-dependent diabetes mellitus with hyperglycemia, osteoarthritis, insomnia, degenerative disc disease, pneumonia, C. difficile, depression, fibromyalgia, chronic pain syndrome, current ongoing tobacco abuse, COPD, recent fall from standing with broken foot with non-weight bearing status, recent accidental overdose according to the patient, preoperative normocytic normochromic anemia POD #5 triple vessel coronary artery bypass grafting using the left internal mammary artery sequentially in a [id number] fashion to the mid left anterior descending artery, then in an end to side fashion to the distal left anterior descending artery, reverse saphenous vein graft from the aorta to the first obtuse marginal artery, reverse saphenous vein graft from the aorta to the right coronary artery after the takeoff of the early arising posterior descending artery, exclusion of the left atrial appendage using a 35 mm AtriClip, sternal plating using the Prote[employer]MediX system, harvesting of the right greater saphenous vein from the groin to above the ankle level, intraoperative transesophageal echocardiogram and epi-aortic scanning, intraoperative graft flow measurements using the [employer] system Postoperative acute blood loss anemia and thrombocytopenia, expected outcomes given cardiopulmonary bypass pump and hemodilution as well as preoperative anemia The patient was seen and examined this morning in the intensive care unit sitting up in the recliner in no acute distress. States postsurgical pain is co ntrolled on current home medication regimen, denies shortness of breath although does have increased oxygen demand this morning. Remains in sinus rhythm with heart rate in the low 60s. Blood pressure remains marginal on low-dose levo with midodrine added, urine output remains low. Oral amiodarone was discontinued yesterday, midodrine was increased. Right internal jugular Cordis, right radial arterial line remain. Objective - Vital Signs Vital signs: Vital Signs Temp 97.9 F 07/16/21 16:00 Pulse 66 07/17/21 07:48 Resp 16 07/17/21 07:48 BP 95/55 07/17/21 07:00 Pulse Ox 92 L 07/17/21 07:00 Intake & Output 07/16/21 07/17/21 07/17/21 18:59 06:59 18:59 Intake Total 832.690 699.014 36 Output Total 180 180 15 Balance 652.690 519.014 21 Weight 66.3 kg Intake: IV 512 432 36 Calcium Gluconate 2 gm In 100 Sodium Chloride 0.9% 100 ml @ 100 mls/hr IVPB ONCE ONE Rx#:[id number] Pressure bags 72 72 6 Sodium Chloride 0.9% 1, 340 360 30 000 ml @ 20 mls/hr IV . Q24H [facility] Rx#:[id number] Intake, IV Titration 20. 67.014 Amount Norepinephrine 4 mg In 20.690 67.014 Sodium Chloride 0.9% 250 ml @ 0.05 MCG/KG/MIN 9. 963 mls/hr IV .Q24H [facility] Rx#:[id number] Oral 300 200 Output: Urine 180 180 15 Other: Voiding Method Indwelling Catheter Indwelling Catheter ABP, PAP, CO, CI - Last Documented Arterial Blood Pressure 98/51 Pulmonary Artery Pressure 26/10 Cardiac Output 4.3 Cardiac Index 2.8 - Exam CONSTITUTIONAL: Appears comfortable, cooperative, no acute distress RESPIRATORY: Lungs sounds diminished bilaterally with coarse crackles in the bases, greater on the right than the left. Respirations even, nonlabored. Currently on 9 L of flow nasal cannula with oxygen saturation 93%. Able to achieve 800 mL on her incentive spirometry. Strong productive cough CARDIOVASCULAR: S1, S2 present. Regular rate and rhythm, sinus rhythm on telemetry. Sternum stable. Palpable peripheral pulses bilaterally except where cast present to left lower extremity. Trace bilateral thigh edema present. No calf pain or tenderness noted. Heart hugger, antiembolism stockings, SCDs present. GASTROINTESTINAL: Abdomen soft, nontender, nondistended. Active bowel sounds present 4 quadrants. Tolerating diet, positive bowel movement GENITOURINARY: Valencia present draining clear, yellow urine. Output overnight 10-15 mL per hour, 300 mL in the last 24 hours INTEGUMENTARY: Skin is warm and dry with evidence of good perfusion. Anterior chest incision well approximated and covered with dry intact dressing. Right lower extremity EVH site well approximated without redness or drainage. NEUROLOGIC: Cranial nerves II through XII intact MUSKULOSKELETAL: Able to move all extremities, strength equal bilaterally, patient is very weak and unable to bear weight on her left leg due to frac ture/cast PSYCHIATRIC: Alert and oriented to person, place, time, following all commands, calm and cooperative INVASIVE LINES AND TUBES: Atrial epicardial pacemaker wires present, grounded. Right internal jugular Cordis, right radial arterial line present. - Allied health notes Allied health notes reviewed: nursing - Labs CBC & Chem 7: 07/17/21 04:30 07/17/21 04:30 Labs: Abnormal Lab Results - Last 24 Hours (Table) 07/16/21 07/16/21 07/16/21 Range/Units 11:31 11:43 16:31 RBC (3.80-5.40) m/uL Hgb (11.4-16.0) gm/dL Hct (34.0-46.0) % RDW (11.5-15.5) % BUN (7-17) mg/dL Creatinine (0.52-1.04) mg/dL Glucose (74-99) mg/dL POC Glucose (mg/dL) 220 H 183 H 231 H (75-99) mg/dL Calcium (8.4-10.2) mg/dL 07/16/21 07/17/21 07/17/21 Range/Units 20:50 04:30 04:30 RBC 2.82 L (3.80-5.40) m/uL Hgb 8.7 L (11.4-16.0) gm/dL Hct 27.6 L (34.0-46.0) % RDW 16.6 H (11.5-15.5) % BUN 42 H (7-17) mg/dL Creatinine 1.08 H (0.52-1.04) mg/dL Glucose 188 H (74-99) mg/dL POC Glucose (mg/dL) 258 H (75-99) mg/dL Calcium 8.2 L (8.4-10.2) mg/dL 07/17/21 Range/Units 06:56 RBC (3.80-5.40) m/uL Hgb (11.4-16.0) gm/dL Hct (34.0-46.0) % RDW (11.5-15.5) % BUN (7-17) mg/dL Creatinine (0.52-1.04) mg/dL Glucose (74-99) mg/dL POC Glucose (mg/dL) 261 H (75-99) mg/dL Calcium (8.4-10.2) mg/dL - Imaging and Cardiology Chest x-ray: report reviewed, image reviewed Assessment and Plan Assessment: 1. Multivessel coronary artery disease, NSTEMI this admission, status post three-vessel CABG 2. Acute on chronic systolic heart failure, EF 30-35% 3. Bilateral pneumonia with pleural effusions this admission 4. History of cardiomopathy 5. Hypertension 6. Hyperlipidemia, treated, cholesterol 128, LDL 60 7. Uncontrolled insulin-dependent diabetes mellitus with hyperglycemia, hemoglobin AIc 10.2% 8. Current ongoing tobacco abuse 9. Severe COPD with preoperative FEV1 48% of predicted 10. Recent fall from standing with broken foot with non-weight bearing status 11. History of C. difficile 12. Depression 13. Fibromyalgia, chronic pain syndrome, osteoarthritis 14. Recent accidental overdose according to the patient 15. Preoperative normocytic, normochromic anemia, postoperative acute blood loss anemia and thrombocytopenia, expected 16. Continuing hypotension on low-dose pressors, expected Plan: 1. Continue ASA, statin, Plavix. Will hold beta aixa this morning. Wean levo as tolerated, continue midodrine 10 mg 3 times a day 2. Wean O2 as tolerated. Encourage incentive spirometry use 10 times every hour while awake. Bronchodilators per pulmonology. Will ultrasound right chest 3. Increase activity as tolerated. PT/OT/cardiac rehab following. Patient will need rehab at discharge due to challenging ambulation with cast, plan is for [facility] 4. Will monitor daily labs and x-rays. Electrolyte replacement per protocol. No further transfusion. We will give 1 g calcium gluconate 5. Will give 25% albumin followed by 40 mg IV push Lasix 6. Pain control with current medication regimen. 7. Insulin management per primary care service. Patient is an uncontrolled diabetic with preoperative hemoglobin A1c 10.2%, blood sugars still in 200s, needs tighter control 8. Will discontinue Valencia catheter later today. Need to discontinue cordis but patient is still on pressors so order placed for PICC line placement 9. Strict accurate intake and output. Daily weights 10. Dr. Carrillo consulted for patient's left foot fracture for recommendations regarding weight bearing status; patient has had cast for 3 weeks; appreciate recommendations 11. More recommendations to follow Time with Patient: Greater than 30
[2021-07-17] MEDS ORDERED: CALCIUM GLUCONATE 1 GM in SODIUM CHLORIDE 0.9% 100 ML IVPB ONE (09:00)
[2021-07-17] MEDS ORDERED: ALBUMIN HUMAN 25% 50 ML in EMPTY BAG 1 BAG IVPB ONE (09:00)
--- NOTE | 2021-07-17 09:15 | US ---
EXAMINATION TYPE: US chest DATE OF EXAM: 07/17/2021 COMPARISON: Chest x-ray same date CLINICAL HISTORY: effusions, poss thora. Abnormal chest x-ray TECHNIQUE: Targeted ultrasound of the posterior lower Patient in chair leaning forward EXAM MEASUREMENTS: Right Pleural Effusion pocket size: 6.1m Right skin surface to fluid distance: 2.1m Left Pleural Effusion pocket size: 7.1m Left skin surface to fluid distance: 1.9m Right side marked for possible thoracentesis outside the dept. Left side marked for possible thoracentesis outside the dept. Pulmonologists are able to review the images in the patient?s EMR. IMPRESSIONS: Bilateral pleural effusions
--- NOTE | 2021-07-17 09:35 | P.PN ---
Subjective Progress Note Date: 07/17/21 Principal diagnosis: Multivessel coronary artery disease, non-ST elevated myocardial infarction, three-vessel coronary artery bypass grafting On 07/16/2021 patient seen in follow-up in the intensive care unit, she is awake and alert, she sits up in a recliner, currently on 4 L of oxygen, breathing comfortably, her sat is 90-92%, her vital signs have been stable, she's been afebrile. Her chest x-ray has been reviewed showing median sternotomy with postoperative clips in the mediastinum, increasing bibasilar opacities right greater than left with the likely combination of pleural effusions and adjacent atelectasis and/or consolidation. Patient is currently on IV fluids at 30 ML per hour with 0.9 normal saline, and levothyroid is currently at 1 mono per minute. Patient denies any shortness of breath, she does complain of left lower extremity. She is in sinus mechanism, with a rate in the 50s. Blood pressures have been marginal, and she is requiring low-dose norepi nephrine, and she continues on midodrine for blood pressure support. Chest tubes have been removed. Today's labs have been reviewed, orbital, is 9.6, hemoglobin is 8.9, platelet is 172, sodium is 133, potassium is 4.5, chloride is 105, B1 is 39, creatinine is 1.2. On 07/17/2021 patient seen in follow-up in the intensive care unit. Today she is on 9 L of oxygen, pulse ox is 93%, she had desaturated earlier on 4 L of oxygen and her pulse ox was around 86%. Today's chest x-ray shows stable dif fuse bilateral infiltrates and pleural effusion. Yesterday patient was given IV Lasix per CT surgery, however she only produced 360 mL of urine output in the last 24 hours. Today's labs have been reviewed, creatinine is improving and is down to 1.08, BUN is 42, electrolytes are within normal limits, white blood cell count is 7.2, hemoglobin is 8.7, platelet count is 175. Patient was hypotensive earlier with Artline pressure 63/55, and she is on levo fed at 0.5 mics per minute, she is on 0.9 normal saline area to 20 ML per hour. She will receive 25 g of 25% albumin per CT surgery which will be followed by a dose of Lasix 40 mg. Clinically patient denies worsening shortness of breath although her oxygen needs are increased. She remains in sinus mechanism with a rate in the low 60s. She continues on midodrine at 10 mg 3 times daily, urine output is very marginal. Objective - Vital Signs Vital signs: Vital Signs Temp 97.7 F 07/17/21 08:00 Pulse 71 07/17/21 09:00 Resp 16 07/17/21 09:00 BP 100/53 07/17/21 09:00 Pulse Ox 93 L 07/17/21 09:00 Intake & Output 07/16/21 07/17/21 07/17/21 18:59 06:59 18:59 Intake Total 832.690 699.014 106 Output Total 180 180 80 Balance 652.690 519.014 26 Weight 66.3 kg Intake: IV 512 432 36 Calcium Gluconate 2 gm In 100 Sodium Chloride 0.9% 100 ml @ 100 mls/hr IVPB ONCE ONE Rx#:[id number] Pressure bags 72 72 6 Sodium Chloride 0.9% 1, 340 360 30 000 ml @ 20 mls/hr IV . Q24H [facility] Rx#:[id number] Intake, IV Titration 20.690 67.014 70 Amount Albumin Human 25% 50 ml 50 In Empty Bag 1 bag @ 50 mls/hr IVPB ONCE ONE Rx#: [id number] Norepinephrine 4 mg In 20.690 67.014 Sodium Chloride 0.9% 250 ml @ 0.05 MCG/KG/MIN 9. 963 mls/hr IV .Q24H [facility] Rx#:[id number] Sodium Chloride 0.9% 1, 20 000 ml @ 20 mls/hr IV . Q24H [facility] Rx#:[id number] Oral 300 200 Output: Urine 180 180 80 Other: Voiding Method Indwelling Catheter Indwelling Catheter ABP, PAP, CO, CI - Last Documented Arterial Blood Pressure 63/55 Pulmonary Artery Pressure 26/10 Cardiac Output 4.3 Cardiac Index 2.8 - Exam GENERAL EXAM: Alert, pleasant, 61-year-old white female, sitting up in the recliner, currently on 9 L of oxygen with a pulse ox of 93%, comfortable in no apparent distress. HEAD: Normocephalic/atraumatic. EYES: Normal reaction of pupils, equal size. Conjunctiva pink, sclera white. NOSE: Clear with pink turbinates. THROAT: No erythema or exudates. NECK: No masses, no JVD, no thyroid enlargement, no adenopathy. CHEST: No chest wall deformity. Symmetrical expansion. Midsternal incision is clean dry and intact, chest tube sites are clean dry and intact, interval removal of chest tubes, LUNGS: Equal air entry with no crackles, wheeze, rhonchi or dullness. CVS: Regular rate and rhythm, normal S1 and S2, no gallops, no murmurs, no rubs ABDOMEN: Soft, nontender. No hepatosplenomegaly, normal bowel sounds, no gu arding or rigidity. EXTREMITIES: No clubbing, no edema, no cyanosis, 2+ pulses and upper and lower e xtremities. Left lower extremity incision is covered with surgical dressing, SCDs on bilateral legs MUSCULOSKELETAL: Muscle strength and tone normal. SPINE: No scoliosis or deformity SKIN: No rashes CENTRAL NERVOUS SYSTEM: Alert and oriented -3. No focal deficits, tone is normal in all 4 extremities. PSYCHIATRIC: Alert and oriented -3. Appropriate affect. Intact judgment and insight. - Labs CBC & Chem 7: 07/17/21 04:30 07/17/21 04:30 Labs: Abnormal Lab Results - Last 24 Hours (Table) 07/16/21 07/16/21 07/16/21 Range/Units 11:31 11:43 16:31 RBC (3.80-5.40) m/uL Hgb (11.4-16.0) gm/dL Hct (34.0-46.0) % RDW (11.5-15.5) % BUN (7-17) mg/dL Creatinine (0.52-1.04) mg/dL Glucose (74-99) mg/dL POC Glucose (mg/dL) 220 H 183 H 231 H (75-99) mg/dL Calcium (8.4-10.2) mg/dL 07/16/21 07/17/21 07/17/21 Range/Units 20:50 04:30 04:30 RBC 2.82 L (3.80-5.40) m/uL Hgb 8.7 L (11.4-16.0) gm/dL Hct 27.6 L (34.0-46.0) % RDW 16.6 H (11.5-15.5) % BUN 42 H (7-17) mg/dL Creatinine 1.08 H (0.52-1.04) mg/dL Glucose 188 H (74-99) mg/dL POC Glucose (mg/dL) 258 H (75-99) mg/dL Calcium 8.2 L (8.4-10.2) mg/dL 07/17/21 Range/Units 06:56 RBC (3.80-5.40) m/uL Hgb (11.4-16.0) gm/dL Hct (34.0-46.0) % RDW (11.5-15.5) % BUN (7-17) mg/dL Creatinine (0.52-1.04) mg/dL Glucose (74-99) mg/dL POC Glucose (mg/dL) 261 H (75-99) mg/dL Calcium (8.4-10.2) mg/dL Assessment and Plan Plan: Assessment: #1. Multivessel coronary artery disease, status post three-vessel coronary artery bypass grafting, on 07/12/2021 #2. Hypotension, postoperative, multifactorial, related to acute blood loss anemia, history of ischemic cardiomyopathy with EF of 30-35%, expected outcome of multivessel coronary artery bypass grafting surgery #3. Acute non-ST elevated myocardial infarction this admission #4. Ischemic cardiomyopathy with EF of 30-35% #5. Acute hypoxic respiratory failure related to atelectasis and bibasilar pleural effusions #6. Hypertension #7. Hyperlipidemia #8. Severe COPD with preoperative FEV1 of 40% of predicted #9. Recent fall sustaining injury to her left foot, with soft tissue edema about the ankle, but no fracture or dislocation to the ankle or the left foot #10. Chronic systolic CHF #11. Depression #12. Osteoarthritis #13. History of tobacco dependence, in remission just since before admission Plan: Continue encouraging deep breathing and coughing Oxygen demand has increased the patient is currently up to 9 L of supplemental oxygen Ultrasound of the chest has been reviewed showing 6.1 cm pocket on the right 7.1 cm pocket on the left We will continue medical treatment with diuretics We'll consider thoracentesis if patient continues to progress with hypoxia, shortness of breath, and develops worsening renal function Hemodynamically patient is still requiring small dose of norepinephrine, midodrine continues in the dose has been adjusted and increased to 10 mg [address] surgery is closely following, patient will receive Albumin 25 g, and IV Lasix to improve her urine output We'll monitor her urine output Daily labs electrolytes and renal profile, CBC We'll continue to follow closely with CT surgery and make further recommendations I performed a history & physical examination of the patient and discussed their management with my nurse practitioner, Makenna Cheng. I reviewed the nurse practitioner's note and agree with the documented findings and plan of care. Lung sounds are positive for dim with crackles throughout the lung santiago. The findings and the impression was discussed with the patient. I attest to the documentation by the nurse practitioner. Time with Patient: Greater than 30
[2021-07-17] MEDS: ASPIRIN 325 MG TAB PO SCH (09:40)
[2021-07-17] MEDS: CLOPIDOGREL 75 MG TAB PO SCH (09:40)
[2021-07-17] MEDS: DULoxetine HCL 30 MG CAPSULE.DR PO SCH (09:40)
[2021-07-17] MEDS: ATORVASTATIN 40 MG TAB PO SCH (09:40)
[2021-07-17] MEDS: GABAPENTIN 100 MG CAP PO SCH ×2 (09:41→21:04)
--- NOTE | 2021-07-17 11:46 | PN ---
PROGRESS NOTE Ms. Falcon is a 61-year-old female who underwent coronary artery bypass grafting. She is doing well this morning. Her blood pressure remains on the low side. She has a history of cardiomyopathy. She is in sinus mechanism. She is requiring low-dose norepinephrine. Her urine output is on the low side. She denies any dizziness or palpitations. No nausea. She is able to tolerate oral fluid. She continues to be at this time on aspirin once a day, Lipitor 40 mg daily, metoprolol tartrate 12.5 mg twice a day and midodrine 10 mg twice a day. PHYSICAL EXAMINATION: Blood pressure is running in the high 90s with a heart rate in the 60s. Lungs clear. HEART: Regular rate and rhythm. S1, S2. No S3. No rub or gallop appreciated. Abdomen soft, non-tender. Positive bowel sounds. No organomegaly. Extremities with no significant edema, with cast on the left side. Lab data revealed a hemoglobin of 8.7, BUN and creatinine of 42 and 1.408. IMPRESSION: 1. Status post coronary artery bypass grafting. 2. Ischemic cardiomyopathy. 3. Persistent hypotension. 4. Hyperlipidemia. 5. History of chronic obstructive lung disease. 6. Diabetes mellitus. RECOMMENDATIONS: I will continue to increase her level of activity gradually and do physical therapy, which I believe will help with her blood pressure. Will continue to follow blood pressure to make adjustments in the medical regimen. Her renal function will be followed closely and depending on her progress, further recommendations will be made. MMODL / IJN: [id number] /
[2021-07-17 12:46] LABS: Glucose,Whole Blood 158 mg/dL (75-99)
[2021-07-17] MEDS: PANTOPRAZOLE 40 MG/10 ML VIAL IVP SCH ×2 (13:34→21:25)
[2021-07-17 17:42] LABS: Glucose,Whole Blood 169 mg/dL (75-99)
[2021-07-17 20:59] LABS: Glucose,Whole Blood 89 mg/dL (75-99)
[2021-07-17] MEDS: ACETAMINOPHEN TAB 325 MG TAB PO PRN (21:04)
[2021-07-17] MEDS: SENNOSIDES-DOCUSATE SODIUM 1 EACH TAB PO SCH (21:04)
[2021-07-17] MEDS: MELATONIN 3 MG TABLET PO SCH (21:04)
--- NOTE | 2021-07-18 00:25 | P.PN ---
Subjective Progress Note Date: 07/17/21 Acute non-ST elevation NM Status post cardiac catheterization revealing triple-vessel coronary artery disease Acute hypoxic respiratory failure Acute exacerbation systolic CHF Patient is a 61-year-old female came in the appearance of left-sided chest pain and also shortness of breath and patient the had a cast from her recent for for calcaneal fracture. Patient has EF of around 25-30% only on Aldactone at home it appears to be in a bit of heart failure with bilateral pleural effusion CT of the chest showed some infiltrate but no work program. Patient denied any cough. Patient had any fever chills. Patient is found to have mildly elevated troponin. 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 Patient was evaluated by cardiology and they're recommending catheterization today. 07/11/2021 Patient is seen and evaluated sitting up in bedside chair; denies any complaint of chest pain or shortness of breath but does report feeling anxious about scheduled surgery tomorrow Vital signs are reviewed and remained stable; blood pressure at 122/62 Patient is status post cardiac catheterization which revealed severe triple vessel coronary artery disease; cardiothoracic surgery on board and CABG is planned for tomorrow Patient has been taken off lisinopril given planned surgery tomorrow morning; remains stable on rest of current medications 07/12/2021 Patient is seen and evaluated; denies any complaint of chest pain or shortness of breath; feels anxious and overwhelmed for upcoming surgery this morning Vital signs reveal temperature 98.2, pulse 87, respiration 19 and blood pressure 128/67 with O2 saturation 92% on 2 L Labs revealed WBC 6.2, hemoglobin 10.1, platelet count of 272, blood glucoses ranging between 142-177 Patient is scheduled for OR for CABG 07/13/2021 patient is status post CABG, POD #1, she had triple-vessel urinary artery bypass grafting. Did very well overnight, patient was extubated uneventfully, and at present seems to be doing well. She is only on 2 L nasal cannula, and O2 saturations 97%. Vital signs are reviewed temperature of 99.3, pulse 90, respirations 17 and blood pressure 149/80 Chest x-ray is showing minimal bibasilar opacity/atelectasis. Her indwelling tubes and catheters are unchanged. Clinically the patient is doing great, she is not requiring any inotropes or any pressors. A todd is achieving about 500 mL with her incentive spirometer. WBC count is 7.6 hemoglobin is 8. Her electrolytes are normal 07/14/2021 Patient is seen and evaluated sitting up in a bedside recliner; was successfully extubated yesterday Vital signs are reviewed and remained stable with a temperature of 98.5, pulse 71, respiration 15 and blood pressure of 9659 Thoracic surgery on board recommending to continue with aspirin, statin, Plavix and beta blockers with plans to increase beta aixa therapy as tolerated; patient will be started on low-dose herber for afterload reduction and blood pressure is more stable; continue with amiodarone for prophylactic prevention of atrial fibrillation Continue to increase activity; PT/OT/cardiac rehab 07/15/2021 patient is seen and evaluated in ICU; postoperative day #3; sitting in a recliner, on 2 L nasal cannula, does not seem to be in any distress. Reports fair pain control. She is in sinus rhythm, blood pressure is marginal and her urine output was noted to be a bit on the low side. She did receive a unit of packed RBCs yesterday for hemoglobin of 6.8. She is on a low dose of norepinephrine with minimal improvement in her blood pressure. But no significant improvement noted in urine output. Continues to have left-sided pleural chest tube in place. Lab review shows WBC of 9.0, hemoglobin 9.2, platelets of 135, sodium 136, potassium 3.9, BUN/creatinine of 2019/0.96 Chest x-ray showed mostly atelectasis at the bases, no evidence of congestive heart failure. Continue aspirin statins and Plavix as well as beta blockers; oral amiodarone. Continue pain control 07/16/2021 Patient is seen and evaluated and follow-up continues to be closely monitored in the ICU with multiple medical consultations following. Sugars have been elevated and patient normally takes 70/30 28 units twice daily and will add and continued sliding scale as well. Blood pressure running low and midodrine being increased. Oral amiodarone being discontinued. Chest xray today shows bibasilar opacities right greater than the left component of effusions with atelectasis. Encouraged incentive spirometer at least 10 times every hour while awake. Will be given a dose of lasix. Patient continues with left lower extremity cast and orthopedics consulted. Patient is non-weightbearing and will need continued PT/OT therapy. Social work following as well for possible rehab on discharge. 07/17/2021 Patient is seen in follow-up this morning stating she is not feeling well today. Patient is having some increased nausea and generalized weakness. Patient has zofran as needed and will add IV protonix bid. Blood sugars have been better controlled on current medication regimen and will continue. Patient to have cordis catheter removed. Podiatry consult pending for left lower extremity fracture. Patient continues to report discomfort to this area and temporary cast and herber wraps noted. Patient is currently non-weightbearing to the left lower extremity and unable to work with physical therapy because of the pain and unsteadiness and awaiting recommendations. Patient is more short of breath today and requiring 7L of 02 via NC. Chest ultrasound ordered. Labs: WBC is 7.2, hemoglobin is 8.7, platelets are 175, sodium 137, potassium 5.1, BUN 42, creatinine 1.08, magnesium 2.2, calcium 8.2 Review of systems: Constitutional: No reports of fatigue, fever, or chills Cardiovascular: No reports of chest pain or palpitations Respiratory: reports of feeling more shortness of breath, reports occasional cough GI: No reports of nausea, vomiting, or diarrhea : No reports of dysuria or retention Neurovascular: reports of generalized weakness, left leg pain All medications have been reviewed Active Medications Acetaminophen (Acetaminophen Tab 325 Mg Tab) 650 mg PO Q4HR PRN PRN Reason: Fever and/ or Pain Hydrocodone Bitart/Acetaminophen (Hydrocodone/Apap 10-325mg 1 Each Tab) 1 each PO Q6HR PRN PRN Reason: Pain Acetylcysteine (Acetylcysteine 800 Mg/4 Ml Vial) 200 mg INHALATION RT-QID [facility] Last Admin: 07/17/21 11:24 Dose: 200 mg Documented by: Albuterol/Ipratropium (Ipratropium-Albuterol 3 Ml Neb) 3 ml INHALATION RT-Q2H PRN PRN Reason: Shortness Of Breath Or Wheezing Albuterol/Ipratropium (Ipratropium-Albuterol 3 Ml Neb) 3 ml INHALATION RT-QID [facility] Last Admin: 07/17/21 11:24 Dose: 3 ml Documented by: Aspirin (Aspirin 325 Mg Tab) 325 mg PO DAILY [facility] Last Admin: 07/17/21 09:40 Dose: 325 mg Documented by: Atorvastatin Calcium (Atorvastatin 40 Mg Tab) 40 mg PO DAILY [facility] Last Admin: 07/17/21 09:40 Dose: 40 mg Documented by: Benzocaine/Menthol (Benzocaine/Menthol Lozeng 1 Each Lozenge) 1 each MUCOUS MEM Q2H PRN PRN Reason: Sore Throat Bisacodyl (Bisacodyl 10 Mg Supp) 10 mg RECTAL DAILY PRN PRN Reason: Constipation Budesonide/Formoterol Fumarate (Symbicort 160-4.5 Mcg Inhaler) 2 puff INHALATION RT-BID [facility] Last Admin: 07/17/21 07:29 Dose: 2 puff Documented by: Clopidogrel Bisulfate (Clopidogrel 75 Mg Tab) 75 mg PO DAILY [facility] Last Admin: 07/17/21 09:40 Dose: 75 mg Documented by: Duloxetine HCl (Duloxetine Hcl 30 Mg Capsule.Dr) 30 mg PO DAILY [facility] Last Admin: 07/17/21 09:40 Dose: 30 mg Documented by: Gabapentin (Gabapentin 100 Mg Cap) 100 mg PO DAILY [facility] Last Admin: 07/17/21 09:41 Dose: 100 mg Documented by: Gabapentin (Gabapentin 100 Mg Cap) 100 mg PO HS [facility] Last Admin: 07/16/21 20:52 Dose: 100 mg Documented by: Heparin Sodium (Porcine) (Heparin Sodium,Porcine/Pf 5,000 Unit/0.5 Ml Syringe) 5,000 unit SQ Q8HR [facility] Last Admin: 07/17/21 09:40 Dose: 5,000 unit Documented by: Amiodarone HCl 150 mg/ (Dextrose/Water) 103 mls @ 618 mls/hr IV .Q10M PRN; Protocol PRN Reason: A.FIB/FLUTTER Amiodarone HCl 360 mg/ (Dextrose/Water) 207.2 mls @ 34.533 mls/hr IV .Q6H PRN; Protocol PRN Reason: A.FIB/FLUTTER Amiodarone HCl 450 mg/ (Dextrose/Water) 250 mls @ 16.667 mls/hr IV .Q15H PRN; Protocol PRN Reason: A.FIB/FLUTTER Norepinephrine Bitartrate 4 mg (/ Sodium Chloride) 254 mls @ 9.963 mls/hr IV .Q24H [facility]; Protocol Last Admin: 07/17/21 06:57 Dose: 0.02 mcg/kg/min, 3.985 mls/hr Documented by: Insulin Aspart (Insulin Aspart (Novolog) 100 Unit/Ml Vial) 0 unit SQ ACHS [facility]; Protocol Last Admin: 07/17/21 13:12 Dose: 1 unit Documented by: Insulin Aspart (Insuln Asp Prt/Insulin Aspart 100 Unit/Ml 10 Ml Vial) 28 unit SQ AC-BID [facility] Last Admin: 07/17/21 06:58 Dose: 28 unit Documented by: Magnesium Hydroxide (Magnesium Hydroxide 2,400 Mg/10 Ml Cup) 2,400 mg PO BID PRN PRN Reason: Constipation Last Admin: 07/16/21 14:34 Dose: 2,400 mg Documented by: Melatonin (Melatonin 3 Mg Tablet) 6 mg PO HS [facility] Last Admin: 07/16/21 20:51 Dose: 6 mg Documented by: Metoclopramide HCl (Metoclopramide 5 Mg/Ml 2 Ml Vial) 10 mg IVP Q4H PRN PRN Reason: Nausea And Vomiting Last Admin: 07/17/21 13:01 Dose: 10 mg Documented by: Metoprolol Tartrate (Metoprolol Tartrate 12.5 Mg Tab) 12.5 mg PO BID [facility] Last Admin: 07/17/21 08:45 Dose: Not Given Documented by: Midodrine (Midodrine 5 Mg Tab) 10 mg PO AC-TID [facility] Last Admin: 07/17/21 13:12 Dose: 10 mg Documented by: Miscellaneous Information (Potassium Replacement Protocol 1 Each Misc) 1 each MISCELLANE DAILY PRN; Protocol PRN Reason: Per Protocol Miscellaneous Information (Magnesium Replacement Protocol 1 Each Misc) 1 each MISCELLANE DAILY PRN; Protocol PRN Reason: Per Protocol Miscellaneous Information (Phosphorus Replacement Protoco 1 Each Misc) 1 each MISCELLANE DAILY PRN; Protocol PRN Reason: Per Protocol Ondansetron HCl (Ondansetron 4 Mg/2 Ml Vial) 4 mg IVP Q6HR PRN PRN Reason: Nausea And Vomiting Pantoprazole Sodium (Pantoprazole 40 Mg/10 Ml Vial) 40 mg IVP BID [facility] Last Admin: 07/17/21 13:34 Dose: 40 mg Documented by: Senna/Docusate Sodium (Sennosides-Docusate Sodium 1 Each Tab) 2 each PO HS [facility] Last Admin: 07/16/21 20:51 Dose: 2 each Documented by: Sodium Chloride (Sodium Chloride 0.9% Flush 10 Ml Syringe) 10 ml IV BID [facility] Last Admin: 07/17/21 09:43 Dose: 10 ml Documented by: Physical exam: Gen: This is a 61-year-old female awake, alert and oriented 3, well-developed, well-nourished. Temp is 97.7F, pulse is 71, respirations are 18, blood pressure arterial is 101/83, oxygen saturation is 86 % on 4 L via nasal cannula and being transitioned to 9 L high flow at 93% HEENT: Head is atraumatic, normocephalic. Pupils equal, round. Sclerae is anicteric. NECK: Supple. No JVD. No lymphadenopathy. No thyromegaly. LUNGS: diminished breath sounds bilaterally with No wheezes and some scattered rhonchi noted. No intercostal retractions. HEART: S1, S2 muffled. ABDOMEN: Soft. Bowel sounds are present. No masses. No tenderness. EXTREMITIES: No pedal edema. No calf tenderness. NEUROLOGICAL: Patient is awake, alert and oriented x3. Cranial nerves 2 through 12 are grossly intact. diffusely weak Assessment: -Acute non-ST elevation myocardial infarction: Patient is status post cardiac catheterization triple-vessel disease CABG -Acute hypoxic respiratory failure most probably secondary to congestive heart failure chronic systolic dysfunction with acute exacerbation -Pneumonia ruled out for calcitonin is low. -Continued ongoing Nicotine use: Counseling was provided -COPD, not in acute exacerbation -Type 2 diabetes mellitus, uncontrolled with hyperglycemia -Hyperlipidemia -hypervolemic hyponatremia -hypertension, currently hypotensive -fall with left foot fracture, recently with casting -GI prophylaxis -DVT prophylaxis -Full code Plan: Recommend to continue with current medications and management. Patient being followed closely by CT surgery along with cardiology and pulmonary. Orthopedics and PT consulted as patient is in a cast to the left lower extremity for recent fall with left foot fracture and is non-weightbearing to the left. Patient will need rehab on discharge once stabilized and discharged. Blood sugars slightly improved and will continue patients 70/30 BID of 28 units and will continue with sliding scale as well and recommend continuing accuchecks closely. Patient encouraged continued incentive spirometer use and increase exercise as tolerated. Will repeat am labs and continue to monitor closely. Continue to wean FI02 as tolerated. Patient requiring more oxygen today and currently on 7L HF. Will repeat am chest xray. Recommend to continue with breathing inhalational treatments. Due to multiple complex medical issues, prognosis is guarded. Objective - Vital Signs Vital signs: Vital Signs Temp 97.9 F 07/16/21 16:00 Pulse 66 07/17/21 07:48 Resp 16 07/17/21 07:48 BP 95/55 07/17/21 07:00 Pulse Ox 92 L 07/17/21 07:00 Intake & Output 07/16/21 07/17/21 07/17/21 18:59 06:59 18:59 Intake Total 832.690 699.014 36 Output Total 180 180 15 Balance 652.690 519.014 21 Weight 66.3 kg Intake: IV 512 432 36 Calcium Gluconate 2 gm In 100 Sodium Chloride 0.9% 100 ml @ 100 mls/hr IVPB ONCE ONE Rx#:[id number] Pressure bags 72 72 6 Sodium Chloride 0.9% 1, 340 360 30 000 ml @ 20 mls/hr IV . Q24H [facility] Rx#:[id number] Intake, IV Titration 20.690 67.014 Amount Norepinephrine 4 mg In 20.690 67.014 Sodium Chloride 0.9% 250 ml @ 0.05 MCG/KG/MIN 9. 963 mls/hr IV .Q24H [facility] Rx#:[id number] Oral 300 200 Output: Urine 180 180 15 Other: Voiding Method Indwelling Catheter Indwelling Catheter ABP, PAP, CO, CI - Last Documented Arterial Blood Pressure 98/51 Pulmonary Artery Pressure 26/10 Cardiac Output 4.3 Cardiac Index 2.8 - Labs CBC & Chem 7: 07/17/21 04:30 07/17/21 04:30 Labs: Abnormal Lab Results - Last 24 Hours (Table) 07/16/21 07/16/21 07/16/21 Range/Units 11:31 11:43 16:31 RBC (3.80-5.40) m/uL Hgb (11.4-16.0) gm/dL Hct (34.0-46.0) % RDW (11.5-15.5) % BUN (7-17) mg/dL Creatinine (0.52-1.04) mg/dL Glucose (74-99) mg/dL POC Glucose (mg/dL) 220 H 183 H 231 H (75-99) mg/dL Calcium (8.4-10.2) mg/dL 07/16/21 07/17/21 07/17/21 Range/Units 20:50 04:30 04:30 RBC 2.82 L (3.80-5.40) m/uL Hgb 8.7 L (11.4-16.0) gm/dL Hct 27.6 L (34.0-46.0) % RDW 16.6 H (11.5-15.5) % BUN 42 H (7-17) mg/dL Creatinine 1.08 H (0.52-1.04) mg/dL Glucose 188 H (74-99) mg/dL POC Glucose (mg/dL) 258 H (75-99) mg/dL Calcium 8.2 L (8.4-10.2) mg/dL 07/17/21 Range/Units 06:56 RBC (3.80-5.40) m/uL Hgb (11.4-16.0) gm/dL Hct (34.0-46.0) % RDW (11.5-15.5) % BUN (7-17) mg/dL Creatinine (0.52-1.04) mg/dL Glucose (74-99) mg/dL POC Glucose (mg/dL) 261 H (75-99) mg/dL Calcium (8.4-10.2) mg/dL
[2021-07-18] MEDS: HEPARIN SODIUM,PORCINE/PF 5,000 UNIT/0.5 ML SYRINGE SQ SCH ×3 (00:52→18:06)
[2021-07-18 04:41] LABS: Anisocytosis Slight; HCT 29.3 % (34.0-46.0); HGB 9.4 gm/dL (11.4-16.0); Hypochromasia Moderate; MCH 31.1 pg (25.0-35.0); MCV 97.4 fL (80.0-100.0); Macrocytosis Slight; Mean Platelet Volume 8.3; Platelet Count 231 k/uL (150-450); RBC 3.01 m/uL (3.80-5.40); RDW 16.6 % (11.5-15.5); WBC 7.2 k/uL (3.8-10.6)
[2021-07-18 05:24] LABS: African American GFR (CKD) >90 (>60 ml/min/1.73 sqM); Anion Gap 5 mmol/L; Blood Urea Nitrogen 42 mg/dL (7-17); Calcium 8.5 mg/dL (8.4-10.2); Carbon Dioxide 28 mmol/L (22-30); Chloride 104 mmol/L (98-107); Magnesium 2.3 mg/dL (1.6-2.3); Non-African American GFR(CKD) 78 (>60 ml/min/1.73 sqM); Potassium 4.7 mmol/L (3.5-5.1); Sodium 137 mmol/L (137-145)
[2021-07-18 05:27] LABS: Glucose 23 mg/dL (74-99)
[2021-07-18] MEDS: DEXTROSE 50% SYRINGE 50 ML IVP ONE (05:29)
[2021-07-18 05:50] LABS: Glucose,Whole Blood 153 mg/dL (75-99)
[2021-07-18] MEDS: HYDROcodone/APAP 10-325MG 1 EACH TAB PO PRN ×3 (05:51→18:06)
[2021-07-18] MEDS: INSULN ASP PRT/INSULIN ASPART 100 UNIT/ML 10 ML VIAL SQ SCH ×2 (06:51→18:00)
[2021-07-18] MEDS: INSULIN ASPART (NovoLOG) 100 UNIT/ML VIAL SQ SCH ×4 (06:52→21:42)
[2021-07-18 06:53] LABS: Glucose,Whole Blood 83 mg/dL (75-99)
[2021-07-18] MEDS: MIDODRINE 5 MG TAB PO SCH ×4 (06:54→19:11)
--- NOTE | 2021-07-18 07:12 | XR ---
EXAMINATION TYPE: XR chest 1V portable DATE OF EXAM: 07/18/2021 CLINICAL HISTORY: Postopen cardiac surgery progress study. TECHNIQUE: Single AP portable semiupright view of the chest is obtained. COMPARISON: Chest x-ray from one day earlier and older studies. FINDINGS: Overlying sternal wires and mediastinal clips along with left atrial appendage clip all re demonstrated. Interval removal of right internal jugular cordis sheath. Overlying epicardial pacer le ads are felt redemonstrated. Persistent cardiomegaly with small to moderate right greater than left pleural effusions and central vascular congestion. Background chronic parenchymal change. Osseous structures are demineralized. IMPRESSION: Cardiomegaly with central vascular congestion and small to moderate size right greater th an left pleural effusions with associated bibasilar compressive atelectasis on background chronic par enchymal changes all redemonstrated. No significant change from one day earlier.
[2021-07-18] MEDS: IPRATROPIUM-ALBUTEROL 3 ML NEB INHALATION SCH ×4 (07:58→21:08)
[2021-07-18] MEDS: ACETYLCYSTEINE 800 MG/4 ML VIAL INHALATION SCH ×4 (07:58→21:08)
[2021-07-18] MEDS: SYMBICORT 160-4.5 MCG INHALER INHALATION SCH ×2 (08:00→21:08)
--- NOTE | 2021-07-18 08:07 | P.PN ---
Subjective Progress Note Date: 07/18/21 Principal diagnosis: Multivessel coronary artery disease, NSTEMI this admission, acute on chronic systolic heart failure, bilateral pneumonia with pleural effusions this admission. Previous medical history of cardiomopathy, hypertension, hyperlipidemia, uncontrolled insulin-dependent diabetes mellitus with hyperglycemia, osteoarthritis, insomnia, degenerative disc disease, pneumonia, C. difficile, depression, fibromyalgia, chronic pain syndrome, current ongoing tobacco abuse, COPD, recent fall from standing with broken foot with non-weight bearing status, recent accidental overdose according to the patient, preoperative normocytic normochromic anemia POD #6 triple vessel coronary artery bypass grafting using the left internal mammary artery sequentially in a [id number] fashion to the mid left anterior descending artery, then in an end to side fashion to the distal left anterior descending artery, reverse saphenous vein graft from the aorta to the first obtuse marginal artery, reverse saphenous vein graft from the aorta to the right coronary artery after the takeoff of the early arising posterior descending artery, exclusion of the left atrial appendage using a 35 mm AtriClip, sternal plating using the [employer] system, harvesting of the right greater saphenous vein from the groin to above the ankle level, intraoperative transesophageal echocardiogram and epi-aortic scanning, intraoperative graft flow measurements using the [employer] system Postoperative acute blood loss anemia and thrombocytopenia, expected outcomes given cardiopulmonary bypass pump and hemodilution as well as preoperative anemia The patient was seen and examined this morning in the intensive care unit sitting up in the recliner in no acute distress. States postsurgical pain is co ntrolled on current home medication regimen, denies shortness of breath. Remains in sinus rhythm to sinus jorge with heart rate in the 50s-low 60s. Blood pressure has improved, remains on midodrine, has been off levo since yesterday morning, urine output picked up in the last 24 hours. Right radial arterial line remains. US of chest completed yesterday with 6.1 cm fluid pocket on the right, 7.1 cm fluid pocket on the left. Oxygen requirements continue to be weaned down. Objective - Vital Signs Vital signs: Vital Signs Temp 98.3 F 07/17/21 19:00 Pulse 51 L 07/18/21 07:00 Resp 12 07/18/21 07:00 BP 88/51 07/18/21 07:00 Pulse Ox 94 L 07/18/21 07:00 Intake & Output 07/17/21 07/18/21 07/18/21 18:59 06:59 18:59 Intake Total 596 312 26 Output Total 985 585 Balance -389 -273 26 Weight 62.2 kg Intake: IV 296 312 26 Pressure bags 66 72 6 Sodium Chloride 0.9% 1, 230 240 20 000 ml @ 20 mls/hr IV . Q24H [facility] Rx#:[id number] Intake, IV Titration 100 Amount Albumin Human 25% 50 ml 50 In Empty Bag 1 bag @ 50 mls/hr IVPB ONCE ONE Rx#: [id number] Calcium Gluconate 1 gm In 30 Sodium Chloride 0.9% 100 ml @ 100 mls/hr IVPB ONCE ONE Rx#:[id number] Sodium Chloride 0.9% 1, 20 000 ml @ 20 mls/hr IV . Q24H [facility] Rx#:[id number] Oral 200 Output: Urine 985 585 Other: Voiding Method Indwelling Catheter Indwelling Catheter # Voids 0 ABP, PAP, CO, CI - Last Documented Arterial Blood Pressure 98/44 Pulmonary Artery Pressure 26/10 Cardiac Output 4.3 Cardiac Index 2.8 - Exam CONSTITUTIONAL: Appears comfortable, cooperative, no acute distress RESPIRATORY: Lungs sounds diminished bilaterally. Respirations even, nonlabored. Currently on 7 L of flow nasal cannula with oxygen saturation 91- 94%. Able to achieve 800 mL on her incentive spirometry. Strong productive cough CARDIOVASCULAR: S1, S2 present. Regular rate and rhythm, sinus jorge to sinus rhythm on telemetry. Sternum stable. Palpable peripheral pulses bilaterally except where cast present to left lower extremity. Trace bilateral thigh edema present. No calf pain or tenderness noted. Heart hugger, antiembolism stockings, SCDs present. GASTROINTESTINAL: Abdomen soft, nontender, nondistended. Active bowel sounds present 4 quadrants. Tolerating diet, positive bowel movement GENITOURINARY: Valencia discontinued this morning. Output overnight 30-60 mL per hour, 1505 mL in the last 24 hours INTEGUMENTARY: Skin is warm and dry with evidence of good perfusion. Anterior chest incision well approximated and covered with dry intact dressing. Right lower extremity EVH site well approximated without redness or drainage. NEUROLOGIC: Cranial nerves II through XII intact MUSKULOSKELETAL: Able to move all extremities, strength equal bilaterally, patient is very weak and unable to bear weight on her left leg due to fracture/cast PSYCHIATRIC: Alert and oriented to person, place, time, following all commands, calm and cooperative INVASIVE LINES AND TUBES: Atrial epicardial pacemaker wires present, grounded. Right radial arterial line present. - Allied health notes Allied health notes reviewed: nursing - Labs CBC & Chem 7: 07/18/21 04:20 07/18/21 04:20 Labs: Abnormal Lab Results - Last 24 Hours (Table) 07/17/21 07/17/21 07/18/21 Range/Units 12:44 17:40 04:20 RBC 3.01 L (3.80-5.40) m/uL Hgb 9.4 L (11.4-16.0) gm/dL Hct 29.3 L (34.0-46.0) % RDW 16.6 H (11.5-15.5) % BUN (7-17) mg/dL Glucose (74-99) mg/dL POC Glucose (mg/dL) 158 H 169 H (75-99) mg/dL 07/18/21 07/18/21 Range/Units 04:20 05:48 RBC (3.80-5.40) m/uL Hgb (11.4-16.0) gm/dL Hct (34.0-46.0) % RDW (11.5-15.5) % BUN 42 H (7-17) mg/dL Glucose 23 L* (74-99) mg/dL POC Glucose (mg/dL) 153 H (75-99) mg/dL - Imaging and Cardiology Chest x-ray: image reviewed Assessment and Plan Assessment: 1. Multivessel coronary artery disease, NSTEMI this admission, status post three-vessel CABG 2. Acute on chronic systolic heart failure, EF 30-35% 3. Bilateral pneumonia with pleural effusions this admission 4. History of cardiomopathy 5. Hypertension 6. Hyperlipidemia, treated, cholesterol 128, LDL 60 7. Uncontrolled insulin-dependent diabetes mellitus with hyperglycemia, hemoglobin AIc 10.2% 8. Current ongoing tobacco abuse 9. Severe COPD with preoperative FEV1 48% of predicted 10. Recent fall from standing with broken foot with non-weight bearing status 11. History of C. difficile 12. Depression 13. Fibromyalgia, chronic pain syndrome, osteoarthritis 14. Recent accidental overdose according to the patient 15. Preoperative normocytic, normochromic anemia, postoperative acute blood loss anemia and thrombocytopenia, expected 16. Continuing hypotension on low-dose pressors, expected, resolved off pressors Plan: 1. Continue ASA, statin, Plavix, low dose beta aixa with hold parameters. Continue midodrine 10 mg 3 times a day 2. Wean O2 as tolerated. Encourage incentive spirometry use 10 times every hour while awake. Bronchodilators per pulmonology. Will defer to pulmonology regarding thoracentesis decision 3. Increase activity as tolerated. PT/OT/cardiac rehab following. Patient will need rehab at discharge due to challenging ambulation with cast, plan is for [facility] 4. Will monitor daily labs and x-rays. Electrolyte replacement per protocol. No further transfusion. Will give concentrated albumin followed by lasix again today 5. Pain control with current medication regimen which is home regiment. 6. Insulin management per primary care service. Patient is an uncontrolled diabetic with preoperative hemoglobin A1c 10.2% 7. Valencia discontinued this am, may bladder scan and straight cath for >300 mL residual 8. Strict accurate intake and output. Daily weights 9. Dr. Carrillo consulted for patient's left foot fracture for recommendations regarding weight bearing status; per nursing Dr. Carrillo wants patient to remain completely non-weight bearing to left leg 10. If remains stable today will place transfer orders for 3 south cardiac stepdown this afternoon 11. More recommendations to follow Time with Patient: Greater than 30
[2021-07-18] MEDS ORDERED: ALBUMIN HUMAN 25% 50 ML in EMPTY BAG 1 BAG IVPB ONE (08:29)
[2021-07-18] MEDS ORDERED: FUROSEMIDE 10 MG/ML 4 ML VIAL IV STA (08:29)
[2021-07-18] MEDS: ATORVASTATIN 40 MG TAB PO SCH (09:10)
[2021-07-18] MEDS: CLOPIDOGREL 75 MG TAB PO SCH (09:10)
[2021-07-18] MEDS: ASPIRIN 325 MG TAB PO SCH (09:10)
[2021-07-18] MEDS: GABAPENTIN 100 MG CAP PO SCH ×2 (09:11→21:42)
[2021-07-18] MEDS: DULoxetine HCL 30 MG CAPSULE.DR PO SCH (09:11)
[2021-07-18] MEDS: PANTOPRAZOLE 40 MG/10 ML VIAL IVP SCH ×2 (09:11→21:42)
[2021-07-18] MEDS: METOPROLOL TARTRATE 12.5 MG TAB PO SCH ×2 (09:28→21:42)
[2021-07-18] MEDS: ACETAMINOPHEN TAB 325 MG TAB PO PRN ×2 (10:56→21:49)
--- NOTE | 2021-07-18 10:56 | PN ---
PROGRESS NOTE Ms. Falcon is a 61-year-old female who underwent coronary artery bypass grafting. She had episodes of hypotension and bradycardia postoperatively. She is feeling better overall. Her pressure is better. She has been off the norepinephrine. Her urine output has improved. She has no chest discomfort. No dizziness. No nausea. Hemodynamically she is more stable compared to yesterday. She continues to be at this time on Lipitor 40 mg daily, aspirin once a day, Plavix 75 mg daily, metoprolol tartrate 12.5 mg twice a day. She is on midodrine 10 mg 3 times a day. PHYSICAL EXAMINATION: Blood pressure is running in the high 90s and low 100s with a heart rate in the 50s. Lungs clear. Heart: Regular rate and rhythm. S1, S2. No S3. With a systolic murmur. No diastolic murmur. Abdomen soft, non-tender. Extremities with cast on the left lower extremity. LAB DATA: Lab data revealed BUN and creatinine of 42 and 0.82, potassium 4.7. IMPRESSION: 1. Status post coronary artery bypass grafting. 2. Fracture of the left lower extremity. 3. Ischemic cardiomyopathy. 4. Hypotension, improved. 5. Sinus bradycardia. 6. Hyperlipidemia. RECOMMENDATIONS: Will continue to increase her level of activity, follow her blood pressure and her heart rate to adjust the dose of her medication. If her blood pressure is stable, then I will add an BECKY inhibitor to her regimen. Depending on her progress, further recommendations will be made. MMODL / IJN: [id number] /
--- NOTE | 2021-07-18 11:56 | P.PN ---
Subjective Progress Note Date: 07/18/21 The patient is seen today 07/18/2021 in follow-up in the intensive care unit. She is status post coronary artery bypass grafting. Postoperative day #6. She is awake and alert, in no acute distress. Currently maintaining O2 saturation in the 90s on 5 L/m per nasal cannula. 0.9 normal saline at 20 ML's per hour. Chest x-ray shows evidence of cardiomegaly with central vascular congestion and small to moderate right greater than left pleural effusions with associated bibasilar compressive atelectasis. Similar to yesterday. She is status post 2 units of packed red blood cells this admission. Current hemoglobin 9.4. White count 7.2. Platelet count 231. Sodium 137. Potassium 4.7. Creatinine 0.82. Glucose 153. TSH 1.74. She remains on DuoNeb inhalations, Symbicort, Mucomyst inhalations. Upper and for DVT prophylaxis. She is under warming blanket. Current temperature 97.5. She is bradycardic in the 50s. Blood pressure stable. Remains on midodrine. Cardiac output 4.3. Cardiac index 2.8. Objective - Vital Signs Vital signs: Vital Signs Temp 97.5 F L 07/18/21 10:40 Pulse 60 07/18/21 10:40 Resp 11 L 07/18/21 10:40 BP 111/76 07/18/21 09:00 Pulse Ox 92 L 07/18/21 10:40 Intake & Output 07/17/21 07/18/21 07/18/21 18:59 06:59 18:59 Intake Total 596 312 486 Output Total 985 585 0 Balance -389 -273 486 Weight 62.2 kg Intake: IV 296 312 126 Amiodarone 360 mg In 50 Dextrose 5% in Water 200 ml @ 1 MG/MIN 34.533 mls/ hr IV .Q6H PRN Rx#: [id number] Pressure bags 66 72 6 Sodium Chloride 0.9% 1, 230 240 70 000 ml @ 20 mls/hr IV . Q24H [facility] Rx#:[id number] Intake, IV Titration 100 Amount Albumin Human 25% 50 ml 50 In Empty Bag 1 bag @ 50 mls/hr IVPB ONCE ONE Rx#: [id number] Calcium Gluconate 1 gm In 30 Sodium Chloride 0.9% 100 ml @ 100 mls/hr IVPB ONCE ONE Rx#:[id number] Sodium Chloride 0.9% 1, 20 000 ml @ 20 mls/hr IV . Q24H [facility] Rx#:[id number] Oral 200 360 Output: Urine 985 585 0 Other: Voiding Method Indwelling Catheter Indwelling Catheter # Voids 0 ABP, PAP, CO, CI - Last Documented Arterial Blood Pressure 68/53 Pulmonary Artery Pressure 26/10 Cardiac Output 4.3 Cardiac Index 2.8 - Exam GENERAL EXAM: Alert, pleasant, 61-year-old female patient, sitting up in the recliner, currently on 5 L of oxygen with a pulse ox of 92%, comfortable in no apparent distress. HEAD: Normocephalic/atraumatic. EYES: Normal reaction of pupils, equal size. Conjunctiva pink, sclera white. NOSE: Clear with pink turbinates. THROAT: No erythema or exudates. NECK: No masses, no JVD, no thyroid enlargement, no adenopathy. CHEST: No chest wall deformity. Symmetrical expansion. Midsternal incision is clean dry and intact, chest tube sites are clean dry and intact LUNGS: Equal air entry with no crackles, wheeze, rhonchi or dullness. CVS: Regular rate and rhythm, normal S1 and S2, no gallops, no murmurs, no rubs ABDOMEN: Soft, nontender. No hepatosplenomegaly, normal bowel sounds, no guarding or rigidity. EXTREMITIES: No clubbing, no edema, no cyanosis, 2+ pulses and upper and lower extremities. Left lower extremity incision is covered with surgical dressing, SCDs on bilateral legs MUSCULOSKELETAL: Muscle strength and tone normal. SPINE: No scoliosis or deformity SKIN: No rashes CENTRAL NERVOUS SYSTEM: No focal deficits, tone is normal in all 4 extremities. PSYCHIATRIC: Alert and oriented -3. Appropriate affect. Intact judgment and insight. - Labs CBC & Chem 7: 07/18/21 04:20 07/18/21 04:20 Labs: Abnormal Lab Results - Last 24 Hours (Table) 07/17/21 07/17/21 07/18/21 Range/Units 12:44 17:40 04:20 RBC 3.01 L (3.80-5.40) m/uL Hgb 9.4 L (11.4-16.0) gm/dL Hct 29.3 L (34.0-46.0) % RDW 16.6 H (11.5-15.5) % BUN (7-17) mg/dL Glucose (74-99) mg/dL POC Glucose (mg/dL) 158 H 169 H (75-99) mg/dL 07/18/21 07/18/21 Range/Units 04:20 05:48 RBC (3.80-5.40) m/uL Hgb (11.4-16.0) gm/dL Hct (34.0-46.0) % RDW (11.5-15.5) % BUN 42 H (7-17) mg/dL Glucose 23 L* (74-99) mg/dL POC Glucose (mg/dL) 153 H (75-99) mg/dL Assessment and Plan Assessment: 1 Acute non-ST segment elevation myocardial infarction and a patient found to have severe triple-vessel disease, status post coronary artery bypass grafting. Postoperative day #6. 2 Acute hypoxemic respiratory failure secondary to an acute exacerbation of systolic congestive heart failure 3 Chronic and ongoing tobacco dependence of greater than 40 years, FEV1 value of 48% of predicted 4 Chronic obstructive pulmonary disease, Gold stage III, not on inhalers or oxygen in the outpatient setting 5 Moderate to severely impaired left ventricular systolic function with ejection fraction 30-35% 6 Diabetes mellitus 7 Hyperlipidemia 8 Hypertension 9 Recent fall sustaining injury to her left foot currently in a boot 9 Poor overall functional performance based on the above-mentioned multiple comorbidities Plan: The patient was seen and evaluated Chest x-ray and labs reviewed Received albumin and Lasix today Continue bronchodilators Continue to utilize the incentive spirometer Titrate the FiO2 as tolerated Increase her activity as tolerated, currently in a left boot We will continue to follow and make further recommendations based on her clinical status I, the cosigning physician, performed a history & physical examination of the patient. Lungs sounds with crackles in the bilateral bases, diminished. Alem ntaining good O2 saturations in the 90s on 5 L/m per nasal cannula. I discussed the assessment and plan of care with my nurse practitioner, Raegan Olivas. I attest to the above note as dictated by her.
[2021-07-18 12:05] LABS: Glucose,Whole Blood 126 mg/dL (75-99)
[2021-07-18] MEDS ORDERED: FUROSEMIDE 10 MG/ML 2 ML VIAL IV STA (17:13)
[2021-07-18 18:11] LABS: Glucose,Whole Blood 169 mg/dL (75-99)
[2021-07-18 21:07] LABS: Glucose,Whole Blood 190 mg/dL (75-99)
[2021-07-18] MEDS: SENNOSIDES-DOCUSATE SODIUM 1 EACH TAB PO SCH (21:41)
[2021-07-18] MEDS: MELATONIN 3 MG TABLET PO SCH (21:42)
--- NOTE | 2021-07-18 23:53 | P.PN ---
Subjective Progress Note Date: 07/18/21 Acute non-ST elevation OR Status post cardiac catheterization revealing triple-vessel coronary artery disease Acute hypoxic respiratory failure Acute exacerbation systolic CHF Patient is a 61-year-old female came in the appearance of left-sided chest pain and also shortness of breath and patient the had a cast from her recent for for calcaneal fracture. Patient has EF of around 25-30% only on Aldactone at home it appears to be in a bit of heart failure with bilateral pleural effusion CT of the chest showed some infiltrate but no work program. Patient denied any cough. Patient had any fever chills. Patient is found to have mildly elevated troponin. Please refer to director global sales documentation for EKG reading. Patient was evaluated by cardiology and they're recommending catheterization today. 07/11/2021 Patient is seen and evaluated sitting up in bedside chair; denies any complaint of chest pain or shortness of breath but does report feeling anxious about scheduled surgery tomorrow Vital signs are reviewed and remained stable; blood pressure at 122/62 Patient is status post cardiac catheterization which revealed severe triple vessel coronary artery disease; cardiothoracic surgery on board and CABG is planned for tomorrow Patient has been taken off lisinopril given planned surgery tomorrow morning; remains stable on rest of current medications 07/12/2021 Patient is seen and evaluated; denies any complaint of chest pain or shortness of breath; feels anxious and overwhelmed for upcoming surgery this morning Vital signs reveal temperature 98.2, pulse 87, respiration 19 and blood pressure 128/67 with O2 saturation 92% on 2 L Labs revealed WBC 6.2, hemoglobin 10.1, platelet count of 272, blood glucoses ranging between 142-177 Patient is scheduled for OR for CABG 07/13/2021 patient is status post CABG, POD #1, she had triple-vessel urinary artery bypass grafting. Did very well overnight, patient was extubated uneventfully, and at present seems to be doing well. She is only on 2 L nasal cannula, and O2 saturations 97%. Vital signs are reviewed temperature of 99.3, pulse 90, respirations 17 and blood pressure 149/80 Chest x-ray is showing minimal bibasilar opacity/atelectasis. Her indwelling tubes and catheters are unchanged. Clinically the patient is doing great, she is not requiring any inotropes or any pressors. A todd is achieving about 500 mL with her incentive spirometer. WBC count is 7.6 hemoglobin is 8. Her electrolytes are normal 07/14/2021 Patient is seen and evaluated sitting up in a bedside recliner; was successfully extubated yesterday Vital signs are reviewed and remained stable with a temperature of 98.5, pulse 71, respiration 15 and blood pressure of 9659 Thoracic surgery on board recommending to continue with aspirin, statin, Plavix and beta blockers with plans to increase beta aixa therapy as tolerated; patient will be started on low-dose herber for afterload reduction and blood pressure is more stable; continue with amiodarone for prophylactic prevention of atrial fibrillation Continue to increase activity; PT/OT/cardiac rehab 07/15/2021 patient is seen and evaluated in ICU; postoperative day #3; sitting in a recliner, on 2 L nasal cannula, does not seem to be in any distress. Reports fair pain control. She is in sinus rhythm, blood pressure is marginal and her urine output was noted to be a bit on the low side. She did receive a unit of packed RBCs yesterday for hemoglobin of 6.8. She is on a low dose of norepinephrine with minimal improvement in her blood pressure. But no significant improvement noted in urine output. Continues to have left-sided pleural chest tube in place. Lab review shows WBC of 9.0, hemoglobin 9.2, platelets of 135, sodium 136, potassium 3.9, BUN/creatinine of 2019/0.96 Chest x-ray showed mostly atelectasis at the bases, no evidence of congestive heart failure. Continue aspirin statins and Plavix as well as beta blockers; oral amiodarone. Continue pain control 07/16/2021 Patient is seen and evaluated and follow-up continues to be closely monitored in the ICU with multiple medical consultations following. Sugars have been elevated and patient normally takes 70/30 28 units twice daily and will add and continued sliding scale as well. Blood pressure running low and midodrine being increased. Oral amiodarone being discontinued. Chest xray today shows bibasilar opacities right greater than the left component of effusions with atelectasis. Encouraged incentive spirometer at least 10 times every hour while awake. Will be given a dose of lasix. Patient continues with left lower extremity cast and orthopedics consulted. Patient is non-weightbearing and will need continued PT/OT therapy. Social work following as well for possible rehab on discharge. 07/17/2021 Patient is seen in follow-up this morning stating she is not feeling well today. Patient is having some increased nausea and generalized weakness. Patient has zofran as needed and will add IV protonix bid. Blood sugars have been better controlled on current medication regimen and will continue. Patient to have cordis catheter removed. Podiatry consult pending for left lower extremity fracture. Patient continues to report discomfort to this area and temporary cast and herber wraps noted. Patient is currently non-weightbearing to the left lower extremity and unable to work with physical therapy because of the pain and unsteadiness and awaiting recommendations. Patient is more short of breath today and requiring 7L of 02 via NC. Chest ultrasound ordered. 07/18/2021 Patient is seen and evaluated in the ICU and is being closely monitored. Patient continues on 5L via NC and states that her oxygen saturations have been low and she denies any worsening shortness of breath. Patient is sitting up in the chair and currently receiving a breathing treatment. Patient does have history of COPD and states that she does not use inhalers or nebulizers for this. Patient denies oxygen use in the outpatient setting. Patient given IV lasix today. Patient does have incentive spirometer at the bedside and strongly encouraged to continue using at least 10 times every hour while awake. Blood sugars on the lower side and patient states she is eating and denies any further nausea today. Labs: WBC is 7.2, hemoglobin is 9.4, platelets are 231, sodium 137, potassium 4.7, BUN 42, creatinine 0.82, magnesium 2.3, calcium 8.5, TSH 1.740 Review of systems: Constitutional: reports of fatigue, no reports of fever, or chills Cardiovascular: No reports of chest pain or palpitations Respiratory: no reports of worsening shortness of breath GI: No reports of nausea, vomiting, or diarrhea : No reports of dysuria or retention Neurovascular: reports of generalized weakness, left leg pain All medications have been reviewed Active Medications Acetaminophen (Acetaminophen Tab 325 Mg Tab) 650 mg PO Q4HR PRN PRN Reason: Fever and/ or Pain Last Admin: 07/18/21 10:56 Dose: 650 mg Documented by: Hydrocodone Bitart/Acetaminophen (Hydrocodone/Apap 10-325mg 1 Each Tab) 1 each PO Q6HR PRN PRN Reason: Pain Last Admin: 07/18/21 12:33 Dose: 1 each Documented by: Acetylcysteine (Acetylcysteine 800 Mg/4 Ml Vial) 200 mg INHALATION RT-QID [facility] Last Admin: 07/18/21 15:34 Dose: 200 mg Documented by: Albuterol/Ipratropium (Ipratropium-Albuterol 3 Ml Neb) 3 ml INHALATION RT-Q2H PRN PRN Reason: Shortness Of Breath Or Wheezing Albuterol/Ipratropium (Ipratropium-Albuterol 3 Ml Neb) 3 ml INHALATION RT-QID [facility] Last Admin: 07/18/21 15:34 Dose: 3 ml Documented by: Aspirin (Aspirin 325 Mg Tab) 325 mg PO DAILY [facility] Last Admin: 07/18/21 09:10 Dose: 325 mg Documented by: Atorvastatin Calcium (Atorvastatin 40 Mg Tab) 40 mg PO DAILY [facility] Last Admin: 07/18/21 09:10 Dose: 40 mg Documented by: Benzocaine/Menthol (Benzocaine/Menthol Lozeng 1 Each Lozenge) 1 each MUCOUS MEM Q2H PRN PRN Reason: Sore Throat Bisacodyl (Bisacodyl 10 Mg Supp) 10 mg RECTAL DAILY PRN PRN Reason: Constipation Budesonide/Formoterol Fumarate (Symbicort 160-4.5 Mcg Inhaler) 2 puff INHALATION RT-BID [facility] Last Admin: 07/18/21 08:00 Dose: 2 puff Documented by: Clopidogrel Bisulfate (Clopidogrel 75 Mg Tab) 75 mg PO DAILY [facility] Last Admin: 07/18/21 09:10 Dose: 75 mg Documented by: Duloxetine HCl (Duloxetine Hcl 30 Mg Capsule.Dr) 30 mg PO DAILY [facility] Last Admin: 07/18/21 09:11 Dose: 30 mg Documented by: Gabapentin (Gabapentin 100 Mg Cap) 100 mg PO DAILY [facility] Last Admin: 07/18/21 09:11 Dose: 100 mg Documented by: Gabapentin (Gabapentin 100 Mg Cap) 100 mg PO HS [facility] Last Admin: 07/17/21 21:04 Dose: 100 mg Documented by: Heparin Sodium (Porcine) (Heparin Sodium,Porcine/Pf 5,000 Unit/0.5 Ml Syringe) 5,000 unit SQ Q8HR [facility] Last Admin: 07/18/21 08:05 Dose: 5,000 unit Documented by: Amiodarone HCl 150 mg/ (Dextrose/Water) 103 mls @ 618 mls/hr IV .Q10M PRN; Protocol PRN Reason: A.FIB/FLUTTER Amiodarone HCl 360 mg/ (Dextrose/Water) 207.2 mls @ 34.533 mls/hr IV .Q6H PRN; Protocol PRN Reason: A.FIB/FLUTTER Amiodarone HCl 450 mg/ (Dextrose/Water) 250 mls @ 16.667 mls/hr IV .Q15H PRN; Protocol PRN Reason: A.FIB/FLUTTER Insulin Aspart (Insulin Aspart (Novolog) 100 Unit/Ml Vial) 0 unit SQ ACHS [facility]; Protocol Last Admin: 07/18/21 12:06 Dose: Not Given Documented by: Insulin Aspart (Insuln Asp Prt/Insulin Aspart 100 Unit/Ml 10 Ml Vial) 28 unit SQ AC-BID [facility] Last Admin: 07/18/21 06:51 Dose: Not Given Documented by: Magnesium Hydroxide (Magnesium Hydroxide 2,400 Mg/10 Ml Cup) 2,400 mg PO BID PRN PRN Reason: Constipation Last Admin: 07/16/21 14:34 Dose: 2,400 mg Documented by: Melatonin (Melatonin 3 Mg Tablet) 6 mg PO [facility] Last Admin: 07/17/21 21:04 Dose: 6 mg Documented by: Metoclopramide HCl (Metoclopramide 5 Mg/Ml 2 Ml Vial) 10 mg IVP Q4H PRN PRN Reason: Nausea And Vomiting Last Admin: 07/17/21 13:01 Dose: 10 mg Documented by: Metoprolol Tartrate (Metoprolol Tartrate 12.5 Mg Tab) 12.5 mg PO BID [facility] Last Admin: 07/18/21 09:28 Dose: Not Given Documented by: Midodrine (Midodrine 5 Mg Tab) 10 mg PO AC-TID [facility] Last Admin: 07/18/21 12:29 Dose: 10 mg Documented by: Miscellaneous Information (Potassium Replacement Protocol 1 Each Misc) 1 each MISCELLANE DAILY PRN; Protocol PRN Reason: Per Protocol Miscellaneous Information (Magnesium Replacement Protocol 1 Each Misc) 1 each MISCELLANE DAILY PRN; Protocol PRN Reason: Per Protocol Miscellaneous Information (Phosphorus Replacement Protoco 1 Each Misc) 1 each MISCELLANE DAILY PRN; Protocol PRN Reason: Per Protocol Ondansetron HCl (Ondansetron 4 Mg/2 Ml Vial) 4 mg IVP Q6HR PRN PRN Reason: Nausea And Vomiting Pantoprazole Sodium (Pantoprazole 40 Mg/10 Ml Vial) 40 mg IVP BID [facility] Last Admin: 07/18/21 09:11 Dose: 40 mg Documented by: Senna/Docusate Sodium (Sennosides-Docusate Sodium 1 Each Tab) 2 each PO HS [facility] Last Admin: 07/17/21 21:04 Dose: 2 each Documented by: Sodium Chloride (Sodium Chloride 0.9% Flush 10 Ml Syringe) 10 ml IV BID [facility] Last Admin: 07/18/21 09:06 Dose: Not Given Documented by: Physical exam: Gen: This is a 61-year-old female awake, alert and oriented 3, well-developed, well-nourished. Temp is 97.5F, pulse is 60, respirations are 13, blood pr essure arterial is 111/76, oxygen saturation is 94 % on 5 L via nasal cannula HEENT: Head is atraumatic, normocephalic. Pupils equal, round. Sclerae is anicteric. NECK: Supple. No JVD. No lymphadenopathy. No thyromegaly. LUNGS: diminished breath sounds bilaterally with No wheezes and some scattered rhonchi noted. No intercostal retractions. HEART: S1, S2 muffled. ABDOMEN: Soft. Bowel sounds are present. No masses. No tenderness. EXTREMITIES: No pedal edema. No calf tenderness. NEUROLOGICAL: Patient is awake, alert and oriented x3. Cranial nerves 2 through 12 are grossly intact. diffusely weak Assessment: -Acute non-ST elevation myocardial infarction: Patient is status post cardiac catheterization triple-vessel disease CABG -Acute hypoxic respiratory failure most probably secondary to congestive heart failure chronic systolic dysfunction with acute exacerbation -Pneumonia ruled out for calcitonin is low. -Continued ongoing Nicotine use: Counseling was provided -COPD, not in acute exacerbation -Type 2 diabetes mellitus, uncontrolled with hyperglycemia -Hyperlipidemia -hypervolemic hyponatremia -hypertension, currently hypotensive -fall with left foot fracture, recently with casting -GI prophylaxis -DVT prophylaxis -Full code Plan: Recommend to continue with current medications and management. Patient being followed closely by CT surgery along with cardiology and pulmonary. Orthopedics and PT consulted as patient is in a cast to the left lower extremity for recent fall with left foot fracture and is non-weightbearing to the left. Patient will need rehab on discharge once stabilized and discharged. Blood sugars on the lower side and will continue patients 70/30 BID of 25 units and will continue with sliding scale as well and recommend continuing accuchecks closely. Patient encouraged continued incentive spirometer use and increase exercise as tolerated. Will repeat am labs and continue to monitor closely. Continue to wean FI02 as tolerated. Patient requiring more oxygen today and currently on 5-10L HF. Will repeat am chest xray. Recommend to continue with breathing inhalational treatments. Patient given a dose of IV lasix today. Due to multiple complex medical issues, prognosis is guarded. Objective - Vital Signs Vital signs: Vital Signs Temp 98.3 F 07/17/21 19:00 Pulse 53 L 07/18/21 08:19 Resp 10 L 07/18/21 08:00 BP 91/54 07/18/21 08:00 Pulse Ox 97 07/18/21 08:00 Intake & Output 07/17/21 07/18/21 07/18/21 18:59 06:59 18:59 Intake Total 596 312 46 Output Total 985 585 Balance -389 -273 46 Weight 62.2 kg Intake: IV 296 312 46 Pressure bags 66 72 6 Sodium Chloride 0.9% 1, 230 240 40 000 ml @ 20 mls/hr IV . Q24H [facility] Rx#:[id number] Intake, IV Titration 100 Amount Albumin Human 25% 50 ml 50 In Empty Bag 1 bag @ 50 mls/hr IVPB ONCE ONE Rx#: [id number] Calcium Gluconate 1 gm In 30 Sodium Chloride 0.9% 100 ml @ 100 mls/hr IVPB ONCE ONE Rx#:[id number] Sodium Chloride 0.9% 1, 20 000 ml @ 20 mls/hr IV . Q24H [facility] Rx#:[id number] Oral 200 Output: Urine 985 585 Other: Voiding Method Indwelling Catheter Indwelling Catheter # Voids 0 ABP, PAP, CO, CI - Last Documented Arterial Blood Pressure 68/53 Pulmonary Artery Pressure 26/10 Cardiac Output 4.3 Cardiac Index 2.8 - Labs CBC & Chem 7: 07/18/21 04:20 07/18/21 04:20 Labs: Abnormal Lab Results - Last 24 Hours (Table) 07/17/21 07/17/21 07/18/21 Range/Units 12:44 17:40 04:20 RBC 3.01 L (3.80-5.40) m/uL Hgb 9.4 L (11.4-16.0) gm/dL Hct 29.3 L (34.0-46.0) % RDW 16.6 H (11.5-15.5) % BUN (7-17) mg/dL Glucose (74-99) mg/dL POC Glucose (mg/dL) 158 H 169 H (75-99) mg/dL 07/18/21 07/18/21 Range/Units 04:20 05:48 RBC (3.80-5.40) m/uL Hgb (11.4-16.0) gm/dL Hct (34.0-46.0) % RDW (11.5-15.5) % BUN 42 H (7-17) mg/dL Glucose 23 L* (74-99) mg/dL POC Glucose (mg/dL) 153 H (75-99) mg/dL
[2021-07-19] MEDS: HYDROcodone/APAP 10-325MG 1 EACH TAB PO PRN ×4 (00:05→18:28)
[2021-07-19] MEDS: HEPARIN SODIUM,PORCINE/PF 5,000 UNIT/0.5 ML SYRINGE SQ SCH ×3 (00:06→17:23)
[2021-07-19 04:08] LABS: Anisocytosis Slight; HCT 26.6 % (34.0-46.0); HGB 8.5 gm/dL (11.4-16.0); Hypochromasia Moderate; MCHC 32.1 g/dL (31.0-37.0); MCV 96.5 fL (80.0-100.0); Mean Platelet Volume 7.9; Platelet Count 221 k/uL (150-450); RBC 2.75 m/uL (3.80-5.40); WBC 8.3 k/uL (3.8-10.6)
[2021-07-19 04:23] LABS: African American GFR (CKD) >90 (>60 ml/min/1.73 sqM); Anion Gap 7 mmol/L; Blood Urea Nitrogen 42 mg/dL (7-17); Calcium 8.1 mg/dL (8.4-10.2); Carbon Dioxide 26 mmol/L (22-30); Chloride 104 mmol/L (98-107); Glucose 150 mg/dL (74-99); Non-African American GFR(CKD) >90 (>60 ml/min/1.73 sqM); Potassium 4.5 mmol/L (3.5-5.1); Sodium 137 mmol/L (137-145)
[2021-07-19 06:26] LABS: Glucose,Whole Blood 162 mg/dL (75-99)
--- NOTE | 2021-07-19 06:58 | XR ---
EXAMINATION TYPE: XR chest 1V portable DATE OF EXAM: 07/19/2021 CLINICAL HISTORY: Difficulty breathing progress study. Postopen cardiac surgery. TECHNIQUE: Single AP portable semiupright view of the chest is obtained. COMPARISON: Chest x-ray from one day earlier. FINDINGS: Overlying sternal wires and mediastinal clips along with left atrial appendage clip are al l redemonstrated. Overlying epicardial pacer leads are felt redemonstrated. Persistent cardiomegaly with small to moderate sized right greater than left pleural effusions and mi ld to moderate central vascular congestion. Background chronic parenchymal change. Osseous structures are demineralized. Surgical clips epigastric region redemonstrated. IMPRESSION: Cardiomegaly with central vascular congestion and small to moderate size right greater th an left pleural effusions with associated bibasilar compressive atelectasis on background chronic par enchymal changes all redemonstrated. No significant change from one day earlier.
[2021-07-19] MEDS ORDERED: DEXTROSE 5% IN WATER 100 ML with AMIODARONE 150 MG IV ONE (08:22)
[2021-07-19] MEDS ORDERED: AMIODARONE IN DEXTROSE,ISO-OSM 150 MG/100 ML PLAST..BAG IV ONE (08:30)
[2021-07-19] MEDS: PANTOPRAZOLE 40 MG/10 ML VIAL IVP SCH ×2 (08:42→20:53)
[2021-07-19] MEDS: MIDODRINE 5 MG TAB PO SCH ×3 (08:43→17:23)
[2021-07-19] MEDS: METOPROLOL TARTRATE 12.5 MG TAB PO SCH ×2 (08:43→20:52)
[2021-07-19] MEDS: ASPIRIN 325 MG TAB PO SCH (08:43)
[2021-07-19] MEDS: GABAPENTIN 100 MG CAP PO SCH ×2 (08:43→20:52)
[2021-07-19] MEDS: INSULIN ASPART (NovoLOG) 100 UNIT/ML VIAL SQ SCH ×4 (08:44→21:20)
[2021-07-19] MEDS: DULoxetine HCL 30 MG CAPSULE.DR PO SCH (08:48)
[2021-07-19] MEDS: CLOPIDOGREL 75 MG TAB PO SCH (08:48)
[2021-07-19] MEDS: ATORVASTATIN 40 MG TAB PO SCH (08:48)
[2021-07-19] MEDS: INSULN ASP PRT/INSULIN ASPART 100 UNIT/ML 10 ML VIAL SQ SCH ×2 (08:49→17:24)
[2021-07-19] MEDS: SYMBICORT 160-4.5 MCG INHALER INHALATION SCH ×2 (09:07→20:28)
[2021-07-19] MEDS: ACETYLCYSTEINE 800 MG/4 ML VIAL INHALATION SCH ×4 (09:07→20:23)
[2021-07-19] MEDS: IPRATROPIUM-ALBUTEROL 3 ML NEB INHALATION SCH ×4 (09:07→20:23)
[2021-07-19] MEDS ORDERED: FUROSEMIDE 10 MG/ML 4 ML VIAL IV STA (10:13)
--- NOTE | 2021-07-19 10:18 | P.PN ---
Subjective Progress Note Date: 07/19/21 The patient is seen today 07/18/2021 in follow-up in the intensive care unit. She is status post coronary artery bypass grafting. Postoperative day #6. She is awake and alert, in no acute distress. Currently maintaining O2 saturation in the 90s on 5 L/m per nasal cannula. 0.9 normal saline at 20 ML's per hour. Chest x-ray shows evidence of cardiomegaly with central vascular congestion and small to moderate right greater than left pleural effusions with associated bibasilar compressive atelectasis. Similar to yesterday. She is status post 2 units of packed red blood cells this admission. Current hemoglobin 9.4. White count 7.2. Platelet count 231. Sodium 137. Potassium 4.7. Creatinine 0.82. Glucose 153. TSH 1.74. She remains on DuoNeb inhalations, Symbicort, Mucomyst inhalations. Heparin for DVT prophylaxis. She is under warming blanket. Current temperature 97.5. She is bradycardic in the 50s. Blood pressure stable. Remains on midodrine. Cardiac output 4.3. Cardiac index 2.8. The patient is seen today 07/19/2021 in follow-up in the intensive care unit. She is awake and alert in no acute distress. Currently sitting up in a chair at the bedside. She did develop new onset atrial fibrillation and received amiodarone bolus. Blood pressure stable. She also was requiring 15 L high flow nasal cannula to maintain O2 saturations in the 90s. Chest x-ray continues to show cardiomegaly with central vascular congestion and small to moderate right greater than left pleural effusions with associated bibasilar compressive atelectasis. She received Lasix times to yesterday. She is status post 2 units of packed red blood cells this admission. Current hemoglobin 8.5. Platelets 221. INR 1.4. White count 8.3. Hemoglobin 8.5. Sodium 137. Potassium 4.5. Creatinine 0.68. TSH 3.52. Currently on heparin subcutaneous for DVT prophylaxis. Working well with the incentive spirometer. Up with assistance. Objective - Vital Signs Vital signs: Vital Signs Temp 97.8 F 07/19/21 08:00 Pulse 96 07/19/21 09:00 Resp 13 07/19/21 09:00 BP 97/59 07/19/21 09:00 Pulse Ox 95 07/19/21 09:00 Intake & Output 07/18/21 07/19/21 07/19/21 18:59 06:59 18:59 Intake Total 1326 Output Total 1075 525 0 Balance 251 -525 0 Weight 64.5 kg Intake: IV 126 Amiodarone 360 mg In 50 Dextrose 5% in Water 200 ml @ 1 MG/MIN 34.533 mls/ hr IV .Q6H PRN Rx#: [id number] Pressure bags 6 Sodium Chloride 0.9% 1, 70 000 ml @ 20 mls/hr IV . Q24H HORTENCIA Rx#:[id number] Oral 1200 Output: Urine 1075 525 0 Other: Voiding Method Bedpan Bedpan # Voids 1 ABP, PAP, CO, CI - Last Documented Arterial Blood Pressure 68/53 Pulmonary Artery Pressure 26/10 Cardiac Output 4.3 Cardiac Index 2.8 - Exam GENERAL EXAM: Alert, pleasant, 61-year-old female patient, sitting up in the recliner, currently on 15 L of oxygen with a pulse ox of 95%, comfortable in no apparent distress. HEAD: Normocephalic/atraumatic. EYES: Normal reaction of pupils, equal size. Conjunctiva pink, sclera white. NOSE: Clear with pink turbinates. THROAT: No erythema or exudates. NECK: No masses, no JVD, no thyroid enlargement, no adenopathy. CHEST: No chest wall deformity. Symmetrical expansion. Midsternal incision is clean dry and intact, chest tube sites are clean dry and intact LUNGS: Equal air entry with crackles in the bilateral bases left greater than right. CVS: Regular rate and rhythm, normal S1 and S2, no gallops, no murmurs, no rubs ABDOMEN: Soft, nontender. No hepatosplenomegaly, normal bowel sounds, no guarding or rigidity. EXTREMITIES: No clubbing, no edema, no cyanosis, 2+ pulses and upper and lower extremities. Left lower extremity incision is covered with surgical dressing, SCDs on bilateral legs MUSCULOSKELETAL: Muscle strength and tone normal. SPINE: No scoliosis or deformity SKIN: No rashes CENTRAL NERVOUS SYSTEM: No focal deficits, tone is normal in all 4 extremities. PSYCHIATRIC: Alert and oriented -3. Appropriate affect. Intact judgment and insight. - Labs CBC & Chem 7: 07/19/21 03:47 07/19/21 03:47 Labs: Abnormal Lab Results - Last 24 Hours (Table) 07/18/21 07/18/21 07/18/21 Range/Units 12:03 18:10 20:55 RBC (3.80-5.40) m/uL Hgb (11.4-16.0) gm/dL Hct (34.0-46.0) % RDW (11.5-15.5) % BUN (7-17) mg/dL Glucose (74-99) mg/dL POC Glucose (mg/dL) 126 H 169 H 190 H (75-99) mg/dL Calcium (8.4-10.2) mg/dL 07/19/21 07/19/21 07/19/21 Range/Units 03:47 03:47 06:24 RBC 2.75 L (3.80-5.40) m/uL Hgb 8.5 L (11.4-16.0) gm/dL Hct 26.6 L (34.0-46.0) % RDW 16.0 H (11.5-15.5) % BUN 42 H (7-17) mg/dL Glucose 150 H (74-99) mg/dL POC Glucose (mg/dL) 162 H (75-99) mg/dL Calcium 8.1 L (8.4-10.2) mg/dL Assessment and Plan Assessment: 1 Acute non-ST segment elevation myocardial infarction and a patient found to have severe triple-vessel disease, status post coronary artery bypass grafting. Postoperative day #7. 2 Acute hypoxemic respiratory failure secondary to an acute exacerbation of systolic congestive heart failure and bilateral pleural effusions left greater than right 3 Chronic and ongoing tobacco dependence of greater than 40 years, FEV1 value of 48% of predicted 4 Chronic obstructive pulmonary disease, Gold stage III, not on inhalers or oxygen in the outpatient setting 5 Moderate to severely impaired left ventricular systolic function with ejection fraction 30-35% 6 Diabetes mellitus 7 Hyperlipidemia 8 Hypertension 9 Recent fall sustaining injury to her left foot currently in a boot 9 Poor overall functional performance based on the above-mentioned multiple comorbidities Plan: The patient was seen and evaluated Chest x-ray and labs reviewed On 15 L high flow nasal cannula We'll give Lasix 40 mg IVP 1 Give a trial of BiPAP 12/5 and 50% FiO2 Continue bronchodilators Continue to utilize the incentive spirometer Titrate the FiO2 as tolerated Increase her activity as tolerated, currently in a left boot We will continue to follow and make further recommendations based on her clinical status I, the cosigning physician, performed a history & physical examination of the patient. Lungs sounds with crackles in the bilateral bases, right greater than left, diminished. Maintaining good O2 saturations in the 90s on 15 L high flow nasal cannula per nasal cannula. I discussed the assessment and plan of care with my nurse practitioner, Raegan Olivas. I attest to the above note as dictated by her.
--- NOTE | 2021-07-19 10:25 | P.PN ---
Subjective Progress Note Date: 07/19/21 Principal diagnosis: Multivessel coronary artery disease, non-ST elevated myocardial infarction this admission, acute on chronic systolic heart failure, bilateral pneumonia with pl eural effusions this admission. Past medical history significant for cardiomopathy, hypertension, hyperlipidemia, uncontrolled insulin-dependent diabetes mellitus with hyperglycemia and an admission glucose of 420, osteoarthritis, insomnia, degenerative disc disease, pneumonia, C. difficile, depression, fibromyalgia, chronic pain syndrome, current ongoing tobacco abuse, COPD, recent fall from standing with broken foot with non-weight bearing status, recent accidental overdose according to the patient, preoperative normocytic normochromic anemia. POD #7 triple vessel coronary artery bypass grafting using the left internal mammary artery sequentially in a [id number] fashion to the mid left anterior descending artery, then in an end to side fashion to the distal left anterior descending artery, reverse saphenous vein graft from the aorta to the first obtuse marginal artery, reverse saphenous vein graft from the aorta to the right coronary artery after the takeoff of the early arising posterior descending artery, exclusion of the left atrial appendage using a 35 mm AtriClip, sternal plating using the [place] system, harvesting of the right greater saphenous vein from the groin to above the ankle level, intraoperative transesophageal echocardiogram and epi-aortic scanning, intraoperative graft flow measurements using the [employer] system Postoperative acute blood loss anemia and thrombocytopenia, expected outcomes given cardiopulmonary bypass pump and hemodilution as well as her preoperative anemia. Paroxysmal atrial fibrillation, a known common occurrence after cardiac surgery. The patient was seen in follow-up today 07/19/2021 at her bedside in the intensive care unit. Currently she is sitting up to the bedside chair, is awake, alert and oriented 3 and is in no acute distress. She denies any complaints of pain at this time, although states that she does get somewhat short of breath with activity. Oxygen saturations are 99% on 15 L high flow nasal cannula oxygen. She is achieving 1000 mL on her incentive spirometry with encouragement. Bedside telemetry showing atrial fibrillation with heart rate of 89 BPM. Atrial epicardial pacemaker wires in place and are grounded. Ultrasound of the chest was completed yesterday which demonstrated a right-sided pleural fluid pocket of 6.1 cm and a left-sided pleural fluid pocket of 7.1 cm. She remains with a cast in place to her left lower extremity and is on continued nonweightbearing status to her left foot. Blood pressure this morning is 120/71, and remains afebrile the last 24 hours. Objective - Vital Signs Vital signs: Vital Signs Temp 97.8 F 07/19/21 08:00 Pulse 66 07/19/21 08:00 Resp 18 07/19/21 08:00 BP 120/71 07/19/21 08:00 Pulse Ox 98 07/19/21 07:00 Intake & Output 07/18/21 07/19/21 07/19/21 18:59 06:59 18:59 Intake Total 1326 Output Total 1075 525 0 Balance 251 -525 0 Weight 64.5 kg Intake: IV 126 Amiodarone 360 mg In 50 Dextrose 5% in Water 200 ml @ 1 MG/MIN 34.533 mls/ hr IV .Q6H PRN Rx#: [id number] Pressure bags 6 Sodium Chloride 0.9% 1, 70 000 ml @ 20 mls/hr IV . Q24H HORTENCIA Rx#:[id number] Oral 1200 Output: Urine 1075 525 0 Other: Voiding Method Bedpan Bedpan # Voids 1 ABP, PAP, CO, CI - Last Documented Arterial Blood Pressure 68/53 Pulmonary Artery Pressure 26/10 Cardiac Output 4.3 Cardiac Index 2.8 - Exam CONSTITUTIONAL: Sitting up to the bedside chair in the intensive care unit, phan ears comfortable, cooperative, no apparent acute distress. HEENT: Neck is supple, no JVD, no lymphadenopathy. RESPIRATORY: Lungs sounds diminished throughout. Respirations are symmetrical and nonlabored. Currently on 15 L high flow nasal cannula with oxygen saturations 99%. Able to achieve 1000 mL on her incentive spirometry. Strong cough. CARDIOVASCULAR: Irregular rhythm and controlled rate. S1 and S2 present, negative for S3, gallop or murmur. Sternum is stable. Palpable peripheral pulses bilaterally, trace edema to his bilateral lower extremities. No calf pain or tenderness noted. Heart hugger in place with patient demonstrating appropriate use. Knee-high CHIO hose and sequential compression devices in place to her right lower extremity. GASTROINTESTINAL: Abdomen soft, nontender, nondistended. Active bowel sounds present 4 quadrants. Tolerating diet. Passing flatus. No guarding or rigidity. GENITOURINARY: Continues to void. Urine output 525 mL in the last shift. INTEGUMENTARY: Skin is warm and dry with no evidence of clubbing or cyanosis. Midline sternal incision clean dry and well approximated, covered with dry intact dressing. Right lower extremity EVH site well approximated without redness or drainage. NEUROLOGIC: Cranial nerves II through XII intact. No focal deficits. MUSKULOSKELETAL: Able to move all extremities, strength equal bilaterally, generalized weakness, continues to have non-weightbearing status to her left foot. PSYCHIATRIC: Alert and oriented to person place and time, appropriate affect, intact judgment and insight. INVASIVE LINES AND TUBES: Atrial epicardial pacemaker wires present, and grounded. - Allied health notes Allied health notes reviewed: nursing - Labs CBC & Chem 7: 07/19/21 03:47 07/19/21 03:47 Labs: Abnormal Lab Results - Last 24 Hours (Table) 07/18/21 07/18/21 07/18/21 Range/Units 12:03 18:10 20:55 RBC (3.80-5.40) m/uL Hgb (11.4-16.0) gm/dL Hct (34.0-46.0) % RDW (11.5-15.5) % BUN (7-17) mg/dL Glucose (74-99) mg/dL POC Glucose (mg/dL) 126 H 169 H 190 H (75-99) mg/dL Calcium (8.4-10.2) mg/dL 07/19/21 07/19/21 07/19/21 Range/Units 03:47 03:47 06:24 RBC 2.75 L (3.80-5.40) m/uL Hgb 8.5 L (11.4-16.0) gm/dL Hct 26.6 L (34.0-46.0) % RDW 16.0 H (11.5-15.5) % BUN 42 H (7-17) mg/dL Glucose 150 H (74-99) mg/dL POC Glucose (mg/dL) 162 H (75-99) mg/dL Calcium 8.1 L (8.4-10.2) mg/dL - Imaging and Cardiology Chest x-ray: report reviewed, image reviewed Assessment and Plan Assessment: 1. Multivessel coronary artery disease, non-ST elevated myocardial infarction this admission, status post three-vessel CABG 2. Acute on chronic systolic heart failure, EF 30-35% 3. Bilateral pneumonia with pleural effusions this admission 4. History of cardiomopathy 5. Hypertension 6. Hyperlipidemia, treated, cholesterol 128, LDL 60 7. Uncontrolled insulin-dependent diabetes mellitus with hyperglycemia, hemoglobin AIc 10.2% 8. Current chronic ongoing tobacco abuse 9. Severe COPD with preoperative FEV1 48% of predicted 10. Recent fall from standing with broken left foot with non-weight bearing status 11. History of C. difficile 12. Depression 13. Fibromyalgia, chronic pain syndrome, osteoarthritis 14. Recent accidental overdose according to the patient 15. Preoperative normocytic, normochromic anemia, postoperative acute blood loss anemia and thrombocytopenia, expected 16. Continuing hypotension on low-dose pressors, expected, resolved off pressors 17. Paroxysmal atrial fibrillation, a known common occurrence after cardiac surgery Plan: 1. Continue aspirin, statin, Plavix, and beta aixa with hold parameters. Continue midodrine 10 mg by mouth 3 times a day. 2. Wean O2 as tolerated. Encourage incentive spirometry use 10 times every hour while awake. Bronchodilators per pulmonology. Will defer to pulmonology regarding thoracentesis decision. 3. Increase activity as tolerated. PT/OT/cardiac rehab following. Patient will need rehab at discharge due to challenging ambulation with cast and nonweightbearing status to her left foot, plan is for [facility]. 4. Will monitor daily labs and chest x-rays. Electrolyte replacement per protocol. No further transfusion. 5. Pain control with current medication regimen which is home regiment. 6. Insulin management per primary care service. Patient is an uncontrolled diabetic with preoperative hemoglobin A1c 10.2%. Patient will need tight blood sugar control to prevent infection and promote sternal healing. 7. Patient continues to void, may bladder scan and straight cath for >300 mL residual. 8. Continue to record strict accurate intake and output. Daily weights 9. Dr. Carrillo consulted for patient's left foot fracture for recommendations regarding weight bearing status; per nursing Dr. Carrillo wants patient to remain completely non-weight bearing to left leg. 10. Keep atrial epicardial pacemaker wires in place and connected to a backup pacemaker rate AAI 50. 11. Lasix 40 mg IV 1 now. 12. Amiodarone 150 mg IV piggyback 1 now over 10 minutes, then initiate amiodarone per protocol IV piggyback. 13. More recommendations to follow based on patient's clinical course. Time with Patient: Greater than 30
--- NOTE | 2021-07-19 11:33 | PN ---
PROGRESS NOTE Mrs. Falcon is a 61-year-old female, status post coronary artery bypass grafting. She is doing well this morning. Her blood pressure and heart rate are better. She denies any chest discomfort. She denies any dizziness. She is not on any vasopressors. Her urine output has been stable. She denies any nausea or vomiting. She continues to be on aspirin once a day, Plavix 75 mg daily, metoprolol tartrate 12.5 mg twice a day, Lipitor 40 mg daily. PHYSICAL EXAMINATION: Blood pressure 120/70 with a heart rate in 60s. Lungs with no wheezes or rales. Heart: Regular rate and rhythm. S1, S2. No S3. No rub. Abdomen soft, non-tender. Extremities: Left lower extremity in a cast. Lab data revealed BUN and creatinine of 42 and 0.68, hemoglobin of 8.5. IMPRESSION: 1. Status post coronary artery bypass grafting, stable. 2. Hypotension, resolved. 3. Ischemic cardiomyopathy. 4. Sinus bradycardia, improving. 5. Hyperlipidemia. 6. Fracture of left lower extremity. RECOMMENDATIONS: Will continue present therapy, increase her level activity. Her blood pressure remains stable. I will add an BECKY inhibitor to her regimen because of the cardiomyopathy and will follow her heart rate to adjust the dose of her beta aixa. Depending on her progress, further recommendations will be made. MMODL / IJN: [id number] /
[2021-07-19 12:26] LABS: Glucose,Whole Blood 184 mg/dL (75-99)
--- NOTE | 2021-07-19 16:52 | P.PN ---
Subjective Progress Note Date: 07/19/21 Acute non-ST elevation MS Status post cardiac catheterization revealing triple-vessel coronary artery disease Acute hypoxic respiratory failure Acute exacerbation systolic CHF Patient is a 61-year-old female came in the appearance of left-sided chest pain and also shortness of breath and patient the had a cast from her recent for for calcaneal fracture. Patient has EF of around 25-30% only on Aldactone at home it appears to be in a bit of heart failure with bilateral pleural effusion CT of the chest showed some infiltrate but no work program. Patient denied any cough. Patient had any fever chills. Patient is found to have mildly elevated troponin. Please refer to recreation therapy teacher documentation for EKG reading. Patient was evaluated by cardiology and they're recommending catheterization today. 07/11/2021 Patient is seen and evaluated sitting up in bedside chair; denies any complaint of chest pain or shortness of breath but does report feeling anxious about scheduled surgery tomorrow Vital signs are reviewed and remained stable; blood pressure at 122/62 Patient is status post cardiac catheterization which revealed severe triple vessel coronary artery disease; cardiothoracic surgery on board and CABG is planned for tomorrow Patient has been taken off lisinopril given planned surgery tomorrow morning; remains stable on rest of current medications 07/12/2021 Patient is seen and evaluated; denies any complaint of chest pain or shortness of breath; feels anxious and overwhelmed for upcoming surgery this morning Vital signs reveal temperature 98.2, pulse 87, respiration 19 and blood pressure 128/67 with O2 saturation 92% on 2 L Labs revealed WBC 6.2, hemoglobin 10.1, platelet count of 272, blood glucoses ranging between 142-177 Patient is scheduled for OR for CABG 07/13/2021 patient is status post CABG, POD #1, she had triple-vessel urinary artery bypass grafting. Did very well overnight, patient was extubated uneventfully, and at present seems to be doing well. She is only on 2 L nasal cannula, and O2 saturations 97%. Vital signs are reviewed temperature of 99.3, pulse 90, respirations 17 and blood pressure 149/80 Chest x-ray is showing minimal bibasilar opacity/atelectasis. Her indwelling tubes and catheters are unchanged. Clinically the patient is doing great, she is not requiring any inotropes or any pressors. A todd is achieving about 500 mL with her incentive spirometer. WBC count is 7.6 hemoglobin is 8. Her electrolytes are normal 07/14/2021 Patient is seen and evaluated sitting up in a bedside recliner; was successfully extubated yesterday Vital signs are reviewed and remained stable with a temperature of 98.5, pulse 71, respiration 15 and blood pressure of 9659 Thoracic surgery on board recommending to continue with aspirin, statin, Plavix and beta blockers with plans to increase beta aixa therapy as tolerated; patient will be started on low-dose herber for afterload reduction and blood pressure is more stable; continue with amiodarone for prophylactic prevention of atrial fibrillation Continue to increase activity; PT/OT/cardiac rehab 07/15/2021 patient is seen and evaluated in ICU; postoperative day #3; sitting in a recliner, on 2 L nasal cannula, does not seem to be in any distress. Reports fair pain control. She is in sinus rhythm, blood pressure is marginal and her urine output was noted to be a bit on the low side. She did receive a unit of packed RBCs yesterday for hemoglobin of 6.8. She is on a low dose of norepinephrine with minimal improvement in her blood pressure. But no significant improvement noted in urine output. Continues to have left-sided pleural chest tube in place. Lab review shows WBC of 9.0, hemoglobin 9.2, platelets of 135, sodium 136, potassium 3.9, BUN/creatinine of 2019/0.96 Chest x-ray showed mostly atelectasis at the bases, no evidence of congestive heart failure. Continue aspirin statins and Plavix as well as beta blockers; oral amiodarone. Continue pain control 07/16/2021 Patient is seen and evaluated and follow-up continues to be closely monitored in the ICU with multiple medical consultations following. Sugars have been elevated and patient normally takes 70/30 28 units twice daily and will add and continued sliding scale as well. Blood pressure running low and midodrine being increased. Oral amiodarone being discontinued. Chest xray today shows bibasilar opacities right greater than the left component of effusions with atelectasis. Encouraged incentive spirometer at least 10 times every hour while awake. Will be given a dose of lasix. Patient continues with left lower extremity cast and orthopedics consulted. Patient is non-weightbearing and will need continued PT/OT therapy. Social work following as well for possible rehab on discharge. 07/17/2021 Patient is seen in follow-up this morning stating she is not feeling well today. Patient is having some increased nausea and generalized weakness. Patient has zofran as needed and will add IV protonix bid. Blood sugars have been better controlled on current medication regimen and will continue. Patient to have cordis catheter removed. Podiatry consult pending for left lower extremity fracture. Patient continues to report discomfort to this area and temporary cast and herber wraps noted. Patient is currently non-weightbearing to the left lower extremity and unable to work with physical therapy because of the pain and unsteadiness and awaiting recommendations. Patient is more short of breath today and requiring 7L of 02 via NC. Chest ultrasound ordered. 07/18/2021 Patient is seen and evaluated in the ICU and is being closely monitored. Patient continues on 5L via NC and states that her oxygen saturations have been low and she denies any worsening shortness of breath. Patient is sitting up in the chair and currently receiving a breathing treatment. Patient does have history of COPD and states that she does not use inhalers or nebulizers for this. Patient denies oxygen use in the outpatient setting. Patient given IV lasix today. Patient does have incentive spirometer at the bedside and strongly encouraged to continue using at least 10 times every hour while awake. Blood sugars on the lower side and patient states she is eating and denies any further nausea today. 07/19/2021 Patient is evaluated this morning and continues to be closely monitored in the ICU. Patient is having increasing shortness of breath and has received another dose of IV Lasix as chest x-ray shows cardiomegaly with central vascular congestion and small to moderate size greater than left pleural effusions and associated basilar compressive atelectasis on the background chronic parenchymal changes are redemonstrated with no significant change from previous day. Patient is currently maintained on BiPAP at 50% and intermittently using high flow cannula at 15 L. Patient also experienced some atrial fibrillation with RVR and cardiology following closely. Patient is maintained on IV amiodarone along with Labs: WBC is 8.3, hemoglobin is 8.5, platelets are 221, sodium 137, potassium 4.5, BUN 42, creatinine 0.68, magnesium 2.0, calcium 8.1, TSH 3.520 Review of systems: Constitutional: reports of fatigue, no reports of fever, or chills Cardiovascular: No reports of chest pain or palpitations Respiratory: no reports of worsening shortness of breath GI: No reports of nausea, vomiting, or diarrhea : No reports of dysuria or retention Neurovascular: reports of generalized weakness, left leg pain All medications have been reviewed Active Medications Acetaminophen (Acetaminophen Tab 325 Mg Tab) 650 mg PO Q4HR PRN PRN Reason: Fever and/ or Pain Last Admin: 07/18/21 21:49 Dose: 650 mg Documented by: Hydrocodone Bitart/Acetaminophen (Hydrocodone/Apap 10-325mg 1 Each Tab) 1 each PO Q6HR PRN PRN Reason: Pain Last Admin: 07/19/21 12:23 Dose: 1 each Documented by: Acetylcysteine (Acetylcysteine 800 Mg/4 Ml Vial) 200 mg INHALATION RT-QID [facility] Last Admin: 07/19/21 14:44 Dose: Not Given Documented by: Albuterol/Ipratropium (Ipratropium-Albuterol 3 Ml Neb) 3 ml INHALATION RT-Q2H PRN PRN Reason: Shortness Of Breath Or Wheezing Albuterol/Ipratropium (Ipratropium-Albuterol 3 Ml Neb) 3 ml INHALATION RT-QID [facility] Last Admin: 07/19/21 14:44 Dose: Not Given Documented by: Aspirin (Aspirin 325 Mg Tab) 325 mg PO DAILY [facility] Last Admin: 07/19/21 08:43 Dose: 325 mg Documented by: Atorvastatin Calcium (Atorvastatin 40 Mg Tab) 40 mg PO DAILY [facility] Last Admin: 07/19/21 08:48 Dose: 40 mg Documented by: Benzocaine/Menthol (Benzocaine/Menthol Lozeng 1 Each Lozenge) 1 each MUCOUS MEM Q2H PRN PRN Reason: Sore Throat Bisacodyl (Bisacodyl 10 Mg Supp) 10 mg RECTAL DAILY PRN PRN Reason: Constipation Budesonide/Formoterol Fumarate (Symbicort 160-4.5 Mcg Inhaler) 2 puff INHALATION RT-BID [facility] Last Admin: 07/19/21 09:07 Dose: Not Given Documented by: Clopidogrel Bisulfate (Clopidogrel 75 Mg Tab) 75 mg PO DAILY [facility] Last Admin: 07/19/21 08:48 Dose: 75 mg Documented by: Duloxetine HCl (Duloxetine Hcl 30 Mg Capsule.Dr) 30 mg PO DAILY [facility] Last Admin: 07/19/21 08:48 Dose: 30 mg Documented by: Gabapentin (Gabapentin 100 Mg Cap) 100 mg PO DAILY [facility] Last Admin: 07/19/21 08:43 Dose: 100 mg Documented by: Gabapentin (Gabapentin 100 Mg Cap) 100 mg PO HS [facility] Last Admin: 07/18/21 21:42 Dose: 100 mg Documented by: Heparin Sodium (Porcine) (Heparin Sodium,Porcine/Pf 5,000 Unit/0.5 Ml Syringe) 5,000 unit SQ Q8HR [facility] Last Admin: 07/19/21 08:42 Dose: 5,000 unit Documented by: Amiodarone HCl 150 mg/ (Dextrose/Water) 103 mls @ 618 mls/hr IV .Q10M PRN; Protocol PRN Reason: A.FIB/FLUTTER Last Admin: 07/19/21 08:30 Dose: 618 mls/hr Documented by: Amiodarone HCl 360 mg/ (Dextrose/Water) 207.2 mls @ 34.533 mls/hr IV .Q6H PRN; Protocol PRN Reason: A.FIB/FLUTTER Amiodarone HCl 450 mg/ (Dextrose/Water) 250 mls @ 16.667 mls/hr IV .Q15H PRN; Protocol PRN Reason: A.FIB/FLUTTER Insulin Aspart (Insulin Aspart (Novolog) 100 Unit/Ml Vial) 0 unit SQ ACHS [facility]; Protocol Last Admin: 07/19/21 12:25 Dose: 2 unit Documented by: Insulin Aspart (Insuln Asp Prt/Insulin Aspart 100 Unit/Ml 10 Ml Vial) 25 unit SQ AC-BID [facility] Last Admin: 07/19/21 08:49 Dose: 25 unit Documented by: Magnesium Hydroxide (Magnesium Hydroxide 2,400 Mg/10 Ml Cup) 2,400 mg PO BID P RN PRN Reason: Constipation Last Admin: 07/16/21 14:34 Dose: 2,400 mg Documented by: Melatonin (Melatonin 3 Mg Tablet) 6 mg PO HS [facility] Last Admin: 07/18/21 21:42 Dose: 6 mg Documented by: Metoclopramide HCl (Metoclopramide 5 Mg/Ml 2 Ml Vial) 10 mg IVP Q4H PRN PRN Reason: Nausea And Vomiting Last Admin: 07/17/21 13:01 Dose: 10 mg Documented by: Metoprolol Tartrate (Metoprolol Tartrate 12.5 Mg Tab) 12.5 mg PO BID [facility] Last Admin: 07/19/21 08:43 Dose: 12.5 mg Documented by: Midodrine (Midodrine 5 Mg Tab) 10 mg PO AC-TID [facility] Last Admin: 07/19/21 12:31 Dose: 10 mg Documented by: Miscellaneous Information (Potassium Replacement Protocol 1 Each Mis) 1 each MISCELLANE DAILY PRN; Protocol PRN Reason: Per Protocol Miscellaneous Information (Magnesium Replacement Protocol 1 Each [facility] 1 each MISCELLANE DAILY PRN; Protocol PRN Reason: Per Protocol Miscellaneous Information (Phosphorus Replacement Protoco 1 Each Mis) 1 each MISCELLANE DAILY PRN; Protocol PRN Reason: Per Protocol Ondansetron HCl (Ondansetron 4 Mg/2 Ml Vial) 4 mg IVP Q6HR PRN PRN Reason: Nausea And Vomiting Pantoprazole Sodium (Pantoprazole 40 Mg/10 Ml Vial) 40 mg IVP BID [facility] Last Admin: 07/19/21 08:42 Dose: 40 mg Documented by: Senna/Docusate Sodium (Sennosides-Docusate Sodium 1 Each Tab) 2 each PO HS [facility] Last Admin: 07/18/21 21:41 Dose: 2 each Documented by: Sodium Chloride (Sodium Chloride 0.9% Flush 10 Ml Syringe) 10 ml IV BID [facility] Last Admin: 07/19/21 08:43 Dose: 10 ml Documented by: Physical exam: Gen: This is a 61-year-old female awake, alert and oriented 3, well-developed, well-nourished. Temp is 97.8F, pulse is 66, respirations are 18, blood pressure arterial is 120/71, oxygen saturation is 98 % on 15 L high flow nasal cannula HEENT: Head is atraumatic, normocephalic. Pupils equal, round. Sclerae is anicteric. NECK: Supple. No JVD. No lymphadenopathy. No thyromegaly. LUNGS: diminished breath sounds bilaterally with No wheezes and some scattered rhonchi and crackles noted. No intercostal retractions. HEART: S1, S2 muffled. ABDOMEN: Soft. Bowel sounds are present. No masses. No tenderness. EXTREMITIES: No pedal edema. No calf tenderness. NEUROLOGICAL: Patient is awake, alert and oriented x3. Cranial nerves 2 through 12 are grossly intact. diffusely weak Assessment: -Acute non-ST elevation myocardial infarction: Patient is status post cardiac catheterization triple-vessel disease CABG -Acute hypoxic respiratory failure most probably secondary to congestive heart failure chronic systolic dysfunction with acute exacerbation -Pneumonia ruled out for calcitonin is low. -Continued ongoing Nicotine use: Counseling was provided -COPD, not in acute exacerbation -Type 2 diabetes mellitus, uncontrolled with hyperglycemia -Hyperlipidemia -hypervolemic hyponatremia -hypertension, currently hypotensive -fall with left foot fracture, recently with casting -GI prophylaxis -DVT prophylaxis -Full code Plan: Recommend to continue with current medications and management. Patient being followed closely by CT surgery along with cardiology and pulmonary. Orthopedics and PT consulted as patient is in a cast to the left lower extremity for recent fall with left foot fracture and is non-weightbearing to the left. Patient will need rehab on discharge once stabilized and discharged. Blood sugars better controlled and will continue 70/30 BID of 25 units and will continue with sliding scale as well and recommend continuing accuchecks closely. Patient encouraged continued incentive spirometer use and increase exercise as tolerated. Will repeat am labs and continue to monitor closely. Continue to wean FI02 as tolerated. Patient requiring more oxygen and now currently on 15 L high flow with intermittent BiPAP use and has been receiving daily doses of IV Lasix.. Recommend to continue with breathing inhalational treatments. Due to mu ltiple complex medical issues, prognosis is guarded. Objective - Vital Signs Vital signs: Vital Signs Temp 97.8 F 07/19/21 08:00 Pulse 66 07/19/21 08:00 Resp 18 07/19/21 08:00 BP 120/71 07/19/21 08:00 Pulse Ox 98 07/19/21 07:00 Intake & Output 07/18/21 07/19/21 07/19/21 18:59 06:59 18:59 Intake Total 1326 Output Total 1075 525 0 Balance 251 -525 0 Weight 64.5 kg Intake: IV 126 Amiodarone 360 mg In 50 Dextrose 5% in Water 200 ml @ 1 MG/MIN 34.533 mls/ hr IV .Q6H PRN Rx#: [id number] Pressure bags 6 Sodium Chloride 0.9% 1, 70 000 ml @ 20 mls/hr IV . Q24H [facility] Rx#:[id number] Oral 1200 Output: Urine 1075 525 0 Other: Voiding Method Bedpan Bedpan # Voids 1 ABP, PAP, CO, CI - Last Documented Arterial Blood Pressure 68/53 Pulmonary Artery Pressure 26/10 Cardiac Output 4.3 Cardiac Index 2.8 - Labs CBC & Chem 7: 07/19/21 03:47 07/19/21 03:47 Labs: Abnormal Lab Results - Last 24 Hours (Table) 07/18/21 07/18/21 07/18/21 Range/Units 12:03 18:10 20:55 RBC (3.80-5.40) m/uL Hgb (11.4-16.0) gm/dL Hct (34.0-46.0) % RDW (11.5-15.5) % BUN (7-17) mg/dL Glucose (74-99) mg/dL POC Glucose (mg/dL) 126 H 169 H 190 H (75-99) mg/dL Calcium (8.4-10.2) mg/dL 07/19/21 07/19/21 07/19/21 Range/Units 03:47 03:47 06:24 RBC 2.75 L (3.80-5.40) m/uL Hgb 8.5 L (11.4-16.0) gm/dL Hct 26.6 L (34.0-46.0) % RDW 16.0 H (11.5-15.5) % BUN 42 H (7-17) mg/dL Glucose 150 H (74-99) mg/dL POC Glucose (mg/dL) 162 H (75-99) mg/dL Calcium 8.1 L (8.4-10.2) mg/dL
[2021-07-19 17:10] LABS: Glucose,Whole Blood 96 mg/dL (75-99)
[2021-07-19] MEDS: SENNOSIDES-DOCUSATE SODIUM 1 EACH TAB PO SCH (20:52)
[2021-07-19] MEDS: MELATONIN 3 MG TABLET PO SCH (20:52)
[2021-07-19 20:54] LABS: Glucose,Whole Blood 61 mg/dL (75-99)
[2021-07-19] MEDS ORDERED: DEXTROSE 50% SYRINGE 50 ML IVP ONE ×2 (20:56→22:04)
[2021-07-19] MEDS: DEXTROSE 50% SYRINGE 50 ML IVP ONE (20:58)
[2021-07-19 21:11] LABS: Glucose,Whole Blood 121 mg/dL (75-99)
[2021-07-19 22:08] LABS: Glucose,Whole Blood 45 mg/dL (75-99)
[2021-07-19 22:08] LABS: Glucose,Whole Blood 46 mg/dL (75-99)
[2021-07-19 22:26] LABS: Glucose,Whole Blood 211 mg/dL (75-99)
[2021-07-19 23:33] LABS: Glucose,Whole Blood 158 mg/dL (75-99)
[2021-07-20] MEDS: HEPARIN SODIUM,PORCINE/PF 5,000 UNIT/0.5 ML SYRINGE SQ SCH ×4 (00:39→23:20)
[2021-07-20] MEDS: HYDROcodone/APAP 10-325MG 1 EACH TAB PO PRN ×4 (01:44→18:09)
[2021-07-20 04:26] LABS: Anisocytosis Slight; Basophils % (A) 0 %; Eosinophils # (A) 0.7 k/uL (0-0.7); Eosinophils % (A) 10 %; HCT 29.6 % (34.0-46.0); HGB 9.3 gm/dL (11.4-16.0); Hypochromasia Moderate; Lymphocytes % (A) 16 %; MCHC 31.4 g/dL (31.0-37.0); MCV 95.5 fL (80.0-100.0); Mean Platelet Volume 7.6; Monocytes # (A) 0.4 k/uL (0-1.0); Monocytes % (A) 7 %; Neutrophils % (A) 64 %; Platelet Count 275 k/uL (150-450); RBC 3.09 m/uL (3.80-5.40); RDW 16.5 % (11.5-15.5); WBC 6.2 k/uL (3.8-10.6)
[2021-07-20 04:32] LABS: ALT 12 U/L (4-34); AST 18 U/L (14-36); African American GFR (CKD) >90 (>60 ml/min/1.73 sqM); Albumin 2.6 g/dL (3.5-5.0); Alkaline Phosphatase 85 U/L (38-126); Anion Gap 6 mmol/L; Blood Urea Nitrogen 38 mg/dL (7-17); Calcium 8.2 mg/dL (8.4-10.2); Carbon Dioxide 29 mmol/L (22-30); Chloride 101 mmol/L (98-107); Non-African American GFR(CKD) >90 (>60 ml/min/1.73 sqM); Potassium 3.9 mmol/L (3.5-5.1); Sodium 136 mmol/L (137-145); Total Bilirubin 0.6 mg/dL (0.2-1.3); Total Protein 5.5 g/dL (6.3-8.2)
[2021-07-20 05:09] LABS: Glucose 43 mg/dL (74-99)
[2021-07-20] MEDS ORDERED: DEXTROSE 50% SYRINGE 50 ML IVP ONE (05:13)
[2021-07-20 05:14] LABS: Glucose,Whole Blood 51 mg/dL (75-99)
[2021-07-20 05:33] LABS: Glucose,Whole Blood 181 mg/dL (75-99)
--- NOTE | 2021-07-20 06:18 | XR ---
EXAMINATION TYPE: XR chest 1V portable DATE OF EXAM: 07/20/2021 CLINICAL HISTORY: Postopen cardiac surgery. TECHNIQUE: Single AP portable semiupright view of the chest is obtained. COMPARISON: Chest x-ray from one day earlier and older studies. FINDINGS: Overlying sternal wires and mediastinal clips along with left atrial appendage clip are al l redemonstrated. Overlying epicardial pacer leads are again seen. Persistent cardiomegaly with small to moderate sized right greater than left bilateral pleural effusi ons and mild to moderate central vascular congestion on background chronic parenchymal change. Osseou s structures remain demineralized. Surgical clips epigastric region redemonstrated. IMPRESSION: Cardiomegaly with central vascular congestion and small to moderate size right greater th an left pleural effusions with associated bibasilar compressive atelectasis on background chronic par enchymal changes all redemonstrated. No significant change from one day earlier.
[2021-07-20 06:54] LABS: Glucose,Whole Blood 79 mg/dL (75-99)
[2021-07-20] MEDS: MIDODRINE 5 MG TAB PO SCH ×3 (07:36→16:53)
[2021-07-20] MEDS: INSULIN ASPART (NovoLOG) 100 UNIT/ML VIAL SQ SCH ×4 (07:39→20:52)
[2021-07-20] MEDS: ACETYLCYSTEINE 800 MG/4 ML VIAL INHALATION SCH ×4 (08:16→21:25)
[2021-07-20] MEDS: IPRATROPIUM-ALBUTEROL 3 ML NEB INHALATION SCH ×4 (08:16→21:25)
[2021-07-20] MEDS: SYMBICORT 160-4.5 MCG INHALER INHALATION SCH ×2 (08:16→21:25)
--- NOTE | 2021-07-20 08:47 | P.PN ---
Subjective Progress Note Date: 07/10/21 Principal diagnosis: Arcaro joint disease, fracture left calcaneus Patient seen in the intensive care unit following cardiac procedure patient is being consult did 4 weightbearing status and management of a Charcot joint disease fracture of the left calcaneus. Patient has been under our care for this as an outpatient and has been managed with a posterior splint as well as nonweightbearing status. Patient last seen previous Friday with orders to obtain a [place] walker boot for the left lower extremity Objective - Vital Signs Vital signs: Vital Signs Temp 97.6 F 07/20/21 04:00 Pulse 67 07/20/21 08:31 Resp 16 07/20/21 08:00 BP 91/61 07/20/21 08:00 Pulse Ox 91 L 07/20/21 08:00 Intake & Output 07/19/21 07/20/21 07/20/21 18:59 06:59 18:59 Intake Total 820 150 150 Output Total 2000 650 0 Balance -1180 -500 150 Weight 66.2 kg Intake: IV 150 D50 150 Intake, IV Titration 100 Amount Dextrose 5% in Water 100 100 ml @ 618 mls/hr IV .Q10M ONE with Amiodarone 150 mg Rx#:[id number] Oral 720 150 Output: Urine 2000 650 0 Other: Voiding Method Bedpan Bedpan Diaper # Voids 1 2 # Bowel Movements 1 ABP, PAP, CO, CI - Last Documented Arterial Blood Pressure 68/53 Pulmonary Artery Pressure 26/10 Cardiac Output 4.3 Cardiac Index 2.8 - Exam He should is resting in the ICU following with the posterior splint applied neurovascular status to the foot intact - Cardiovascular Details: Pedal pulses are patent palpable but diminished bilateral - Integumentary Integumentary Comment(s): Integument intact lesions - Neurologic Neurologic Comment(s): 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 - Musculoskeletal Musculoskeletal Comment(s): Calcaneal compound fractures secondary to Charcot joint disease left philip all inverters everters plantar flexors dorsiflexors grossly intact symmetrical bilateral - Labs CBC & Chem 7: 07/20/21 03:46 07/20/21 03:46 Labs: Abnormal Lab Results - Last 24 Hours (Table) 07/19/21 07/19/21 07/19/21 Range/Units 12:24 20:53 21:09 RBC (3.80-5.40) m/uL Hgb (11.4-16.0) gm/dL Hct (34.0-46.0) % RDW (11.5-15.5) % Sodium (137-145) mmol/L BUN (7-17) mg/dL Creatinine (0.52-1.04) mg/dL Glucose (74-99) mg/dL POC Glucose (mg/dL) 184 H 61 L 121 H (75-99) mg/dL Calcium (8.4-10.2) mg/dL Total Protein (6.3-8.2) g/dL Albumin (3.5-5.0) g/dL 07/19/21 07/19/21 07/19/21 Range/Units 22:03 22:04 22:22 RBC (3.80-5.40) m/uL Hgb (11.4-16.0) gm/dL Hct (34.0-46.0) % RDW (11.5-15.5) % Sodium (137-145) mmol/L BUN (7-17) mg/dL Creatinine (0.52-1.04) mg/dL Glucose (74-99) mg/dL POC Glucose (mg/dL) 46 L 45 L 211 H (75-99) mg/dL Calcium (8.4-10.2) mg/dL Total Protein (6.3-8.2) g/dL Albumin (3.5-5.0) g/dL 07/19/21 07/20/21 07/20/21 Range/Units 23:31 03:46 03:46 RBC 3.09 L (3.80-5.40) m/uL Hgb 9.3 L (11.4-16.0) gm/dL Hct 29.6 L (34.0-46.0) % RDW 16.5 H (11.5-15.5) % Sodium 136 L (137-145) mmol/L BUN 38 H (7-17) mg/dL Creatinine 0.51 L (0.52-1.04) mg/dL Glucose 43 L* (74-99) mg/dL POC Glucose (mg/dL) 158 H (75-99) mg/dL Calcium 8.2 L (8.4-10.2) mg/dL Total Protein 5.5 L (6.3-8.2) g/dL Albumin 2.6 L (3.5-5.0) g/dL 07/20/21 07/20/21 Range/Units 05:11 05:32 RBC (3.80-5.40) m/uL Hgb (11.4-16.0) gm/dL Hct (34.0-46.0) % RDW (11.5-15.5) % Sodium (137-145) mmol/L BUN (7-17) mg/dL Creatinine (0.52-1.04) mg/dL Glucose (74-99) mg/dL POC Glucose (mg/dL) 51 L 181 H (75-99) mg/dL Calcium (8.4-10.2) mg/dL Total Protein (6.3-8.2) g/dL Albumin (3.5-5.0) g/dL Assessment and Plan Assessment: Charcot joint disease left lower extremity with fractured calcaneus Plan: Exam we discussed with the management nurse are planned for this Charcot joint fracture patient needs to be nonweightbearing on the left lower extremity as any weightbearing force may result in a BK amputation. Patient should see physical therapy for ambulating instructions nonweightbearing left and any ambulatory aide that will help achieve this. Patient needs to be maintained in the posterior splint until the [place] walker is available. Well patient is in the ICU radiographs to assess the healing of the calcaneal fracture should be ordered. Thank you for this consultation
--- NOTE | 2021-07-20 08:49 | PN ---
PROGRESS NOTE Ms. Falcon is a 61-year-old female who has underwent coronary artery bypass grafting. She had postoperative episode of hypotension and bradycardia that have improved. She is feeling reasonably well overall. She had episode of hypoglycemia yesterday requiring treatment. She denies any dizziness or palpitation. She denies any nausea. She has a fractured left lower extremity. She is not on vasopressor and continues to be in sinus mechanism. She continues to be at this time on atorvastatin 40 mg daily, aspirin once a day, Plavix 75 mg daily, metoprolol tartrate 12.5 mg twice a day. PHYSICAL EXAMINATION: Blood pressure running in the 120s to 130s with a heart rate in 50s, lungs mild decreased breath sounds at the bases. Heart: Regular rate and rhythm S1, S2. No S3, with systolic murmur. No diastolic murmur. Abdomen: Soft and nontender. Extremities: Cast on the left leg and +1 edema on the right side. LAB DATA: Revealed hemoglobin 9.3, BUN and creatinine 38 and 0.51, potassium 3.9. Her sodium is 136. IMPRESSION: 1. Status post coronary artery bypass grafting with no evidence of ischemic event. 2. Ischemic cardiomyopathy. 3. Hypotension, improved. 4. Hyperlipidemia. 5. Chronic obstructive lung disease. RECOMMENDATIONS: From the cardiac standpoint, now that her blood pressure and renal function is stable. I will start her back on a low-dose BECKY inhibitor. Continue to follow her renal function. Increase his activity gradually. Depending on her progress, further recommendations will be made. MMODL / IJN: [id number] /
[2021-07-20] MEDS: DULoxetine HCL 30 MG CAPSULE.DR PO SCH (09:04)
[2021-07-20] MEDS: ATORVASTATIN 40 MG TAB PO SCH (09:04)
[2021-07-20] MEDS: GABAPENTIN 100 MG CAP PO SCH ×2 (09:04→21:00)
[2021-07-20] MEDS: CLOPIDOGREL 75 MG TAB PO SCH (09:04)
[2021-07-20] MEDS: METOPROLOL TARTRATE 12.5 MG TAB PO SCH ×2 (09:04→21:01)
[2021-07-20] MEDS: ASPIRIN 325 MG TAB PO SCH (09:04)
[2021-07-20] MEDS: PANTOPRAZOLE 40 MG/10 ML VIAL IVP SCH ×2 (09:22→21:01)
[2021-07-20] MEDS ORDERED: POTASSIUM CHLORIDE ER 20 MEQ TAB.ER PO SCH (10:00)
[2021-07-20] MEDS ORDERED: FUROSEMIDE 10 MG/ML 4 ML VIAL IV STA ×2 (10:00→15:35)
[2021-07-20] MEDS: ACETAMINOPHEN TAB 325 MG TAB PO PRN ×2 (10:32→20:59)
--- NOTE | 2021-07-20 10:50 | P.PN ---
Subjective Progress Note Date: 07/20/21 The patient is seen today 07/18/2021 in follow-up in the intensive care unit. She is status post coronary artery bypass grafting. Postoperative day #6. She is awake and alert, in no acute distress. Currently maintaining O2 saturation in the 90s on 5 L/m per nasal cannula. 0.9 normal saline at 20 ML's per hour. Chest x-ray shows evidence of cardiomegaly with central vascular congestion and small to moderate right greater than left pleural effusions with associated bibasilar compressive atelectasis. Similar to yesterday. She is status post 2 units of packed red blood cells this admission. Current hemoglobin 9.4. White count 7.2. Platelet count 231. Sodium 137. Potassium 4.7. Creatinine 0.82. Glucose 153. TSH 1.74. She remains on DuoNeb inhalations, Symbicort, Mucomyst inhalations. Heparin for DVT prophylaxis. She is under warming blanket. Current temperature 97.5. She is bradycardic in the 50s. Blood pressure stable. Remains on midodrine. Cardiac output 4.3. Cardiac index 2.8. The patient is seen today 07/19/2021 in follow-up in the intensive care unit. She is awake and alert in no acute distress. Currently sitting up in a chair at the bedside. She did develop new onset atrial fibrillation and received amiodarone bolus. Blood pressure stable. She also was requiring 15 L high flow nasal cannula to maintain O2 saturations in the 90s. Chest x-ray continues to show cardiomegaly with central vascular congestion and small to moderate right greater than left pleural effusions with associated bibasilar compressive atelectasis. She received Lasix times to yesterday. She is status post 2 units of packed red blood cells this admission. Current hemoglobin 8.5. Platelets 221. INR 1.4. White count 8.3. Hemoglobin 8.5. Sodium 137. Potassium 4.5. Creatinine 0.68. TSH 3.52. Currently on heparin subcutaneous for DVT prophylaxis. Working well with the incentive spirometer. Up with assistance. The patient is seen today 07/20/2021 in follow-up in the intensive care unit. She is awake and alert in no acute distress. Currently resting comfortably in bed. She denies any worsening shortness of breath, cough or congestion. She did utilize the BiPAP last evening 07/08 and 50% FiO2. She is currently on 12 L high flow nasal cannula with O2 saturation 91%. She still pulling approximately 1 L on the incentive spirometer. Pacer wires remain in place. Chest tubes have been removed. Today's chest x-ray reveals cardiomegaly with central vascular congestion and small to moderate right greater than left pleural effusions with associated bibasilar compressive atelectasis. Improved today compared to yesterday. White count 6.2. Hemoglobin 9.3. Sodium 136. Potassium 3.9. Creatinine 0.51. Glucose 43 improved to 181. Albumin 2.6. Remains in normal sinus rhythm. Continued on heparin for DVT prophylaxis. Remains on Symbicort, DuoNeb inhalations. She had been seen by podiatry and is still to remain nonweightbearing on the left foot due to her Charcot joint fracture with fractured calcaneus. Objective - Vital Signs Vital signs: Vital Signs Temp 97.6 F 07/20/21 04:00 Pulse 72 07/20/21 10:00 Resp 16 07/20/21 10:00 BP 131/65 07/20/21 10:00 Pulse Ox 90 L 07/20/21 10:00 Intake & Output 07/19/21 07/20/21 07/20/21 18:59 06:59 18:59 Intake Total 820 150 150 Output Total 2000 650 0 Balance -1180 -500 150 Weight 66.2 kg Intake: IV 150 D50 150 Intake, IV Titration 100 Amount Dextrose 5% in Water 100 100 ml @ 618 mls/hr IV .Q10M ONE with Amiodarone 150 mg Rx#:[id number] Oral 720 150 Output: Urine 2000 650 0 Other: Voiding Method Bedpan Bedpan Diaper # Voids 1 2 # Bowel Movements 1 ABP, PAP, CO, CI - Last Documented Arterial Blood Pressure 68/53 Pulmonary Artery Pressure 26/10 Cardiac Output 4.3 Cardiac Index 2.8 - Exam GENERAL EXAM: Alert, pleasant, 61-year-old female patient, currently resting in bed, currently on 12 L of oxygen with a pulse ox of 91%, comfortable in no apparent distress. HEAD: Normocephalic/atraumatic. EYES: Normal reaction of pupils, equal size. Conjunctiva pink, sclera white. NOSE: Clear with pink turbinates. THROAT: No erythema or exudates. NECK: No masses, no JVD, no thyroid enlargement, no adenopathy. CHEST: No chest wall deformity. Symmetrical expansion. Midsternal incision is clean dry and intact, chest tubes removed and sites are clean dry and intact LUNGS: Equal air entry with crackles in the bilateral bases. CVS: Regular rate and rhythm, normal S1 and S2, no gallops, no murmurs, no rubs ABDOMEN: Soft, nontender. No hepatosplenomegaly, normal bowel sounds, no guarding or rigidity. EXTREMITIES: Remains with boot on left foot. Left lower extremity incision is covered with surgical dressing, SCDs on bilateral legs MUSCULOSKELETAL: Muscle strength and tone normal. SPINE: No scoliosis or deformity SKIN: No rashes CENTRAL NERVOUS SYSTEM: No focal deficits, tone is normal in all 4 extremities. PSYCHIATRIC: Alert and oriented -3. Appropriate affect. Intact judgment and insight. - Labs CBC & Chem 7: 07/20/21 03:46 07/20/21 03:46 Labs: Abnormal Lab Results - Last 24 Hours (Table) 07/19/21 07/19/21 07/19/21 Range/Units 12:24 20:53 21:09 RBC (3.80-5.40) m/uL Hgb (11.4-16.0) gm/dL Hct (34.0-46.0) % RDW (11.5-15.5) % Sodium (137-145) mmol/L BUN (7-17) mg/dL Creatinine (0.52-1.04) mg/dL Glucose (74-99) mg/dL POC Glucose (mg/dL) 184 H 61 L 121 H (75-99) mg/dL Calcium (8.4-10.2) mg/dL Total Protein (6.3-8.2) g/dL Albumin (3.5-5.0) g/dL 07/19/21 07/19/21 07/19/21 Range/Units 22:03 22:04 22:22 RBC (3.80-5.40) m/uL Hgb (11.4-16.0) gm/dL Hct (34.0-46.0) % RDW (11.5-15.5) % Sodium (137-145) mmol/L BUN (7-17) mg/dL Creatinine (0.52-1.04) mg/dL Glucose (74-99) mg/dL POC Glucose (mg/dL) 46 L 45 L 211 H (75-99) mg/dL Calcium (8.4-10.2) mg/dL Total Protein (6.3-8.2) g/dL Albumin (3.5-5.0) g/dL 07/19/21 07/20/21 07/20/21 Range/Units 23:31 03:46 03:46 RBC 3.09 L (3.80-5.40) m/uL Hgb 9.3 L (11.4-16.0) gm/dL Hct 29.6 L (34.0-46.0) % RDW 16.5 H (11.5-15.5) % Sodium 136 L (137-145) mmol/L BUN 38 H (7-17) mg/dL Creatinine 0.51 L (0.52-1.04) mg/dL Glucose 43 L* (74-99) mg/dL POC Glucose (mg/dL) 158 H (75-99) mg/dL Calcium 8.2 L (8.4-10.2) mg/dL Total Protein 5.5 L (6.3-8.2) g/dL Albumin 2.6 L (3.5-5.0) g/dL 07/20/21 07/20/21 Range/Units 05:11 05:32 RBC (3.80-5.40) m/uL Hgb (11.4-16.0) gm/dL Hct (34.0-46.0) % RDW (11.5-15.5) % Sodium (137-145) mmol/L BUN (7-17) mg/dL Creatinine (0.52-1.04) mg/dL Glucose (74-99) mg/dL POC Glucose (mg/dL) 51 L 181 H (75-99) mg/dL Calcium (8.4-10.2) mg/dL Total Protein (6.3-8.2) g/dL Albumin (3.5-5.0) g/dL Assessment and Plan Assessment: 1 Acute non-ST segment elevation myocardial infarction and a patient found to have severe triple-vessel disease, status post coronary artery bypass grafting. Postoperative day #8. 2 Acute hypoxemic respiratory failure secondary to an acute exacerbation of s ystolic congestive heart failure and bilateral pleural effusions left greater than right 3 Chronic and ongoing tobacco dependence of greater than 40 years, FEV1 value of 48% of predicted 4 Chronic obstructive pulmonary disease, Gold stage III, not on inhalers or oxygen in the outpatient setting 5 Moderate to severely impaired left ventricular systolic function with ejection fraction 30-35% 6 Diabetes mellitus 7 Hyperlipidemia 8 Hypertension 9 Recent fall sustaining Charcot joint disease left lower extremity with fractured calcaneus. Currently in a posterior splint. Awaiting a [place] walker 9 Poor overall functional performance based on the above-mentioned multiple comorbidities Plan: The patient was seen and evaluated Chest x-ray and labs reviewed Improved with diuretics and BiPAP Currently on 12 L high flow nasal cannula Continue bronchodilators Continue to utilize the incentive spirometer Titrate the FiO2 as tolerated To remain nonweightbearing on the left foot We will continue to follow and make further recommendations based on her clinical status I, the cosigning physician, performed a history & physical examination of the patient. Lungs sounds with crackles in the bilateral bases, right greater than left, diminished. Maintaining good O2 saturations in the 90s on 12 L high flow nasal cannula per nasal cannula. I discussed the assessment and plan of care with my nurse practitioner, Raegan Olivas. I attest to the above note as dictated by her.
--- NOTE | 2021-07-20 11:11 | P.PN ---
Subjective Progress Note Date: 07/20/21 Principal diagnosis: Multivessel coronary artery disease, non-ST elevated myocardial infarction this admission, acute on chronic systolic heart failure, bilateral pneumonia with pl eural effusions this admission. Past medical history significant for cardiomopathy, hypertension, hyperlipidemia, uncontrolled insulin-dependent diabetes mellitus with hyperglycemia and an admission glucose of 420, osteoarthritis, insomnia, degenerative disc disease, pneumonia, C. difficile, depression, fibromyalgia, chronic pain syndrome, current ongoing tobacco abuse, COPD, recent fall from standing with broken foot with non-weight bearing status, recent accidental overdose according to the patient, preoperative normocytic normochromic anemia. POD #8 triple vessel coronary artery bypass grafting using the left internal mammary artery sequentially in a [id number] fashion to the mid left anterior descending artery, then in an end to side fashion to the distal left anterior descending artery, reverse saphenous vein graft from the aorta to the first obtuse marginal artery, reverse saphenous vein graft from the aorta to the right coronary artery after the takeoff of the early arising posterior descending artery, exclusion of the left atrial appendage using a 35 mm AtriClip, sternal plating using the [place] system, harvesting of the right greater saphenous vein from the groin to above the ankle level, intraoperative transesophageal echocardiogram and epi-aortic scanning, intraoperative graft flow measurements using the NodePrime system Postoperative acute blood loss anemia and thrombocytopenia, expected outcomes given cardiopulmonary bypass pump and hemodilution as well as her preoperative anemia. Paroxysmal atrial fibrillation, a known common occurrence after cardiac surgery. The patient was seen in follow-up today 07/20/2021 at her bedside in the intensive care unit. Currently she is sitting up to the bedside chair, is awake, alert and oriented 3 and is in no acute distress. She denies any complaints of pain at this time, although continues to complain of some shortness of breath with activity. Oxygen saturations are 95% on 12 L high flow nasal cannula oxygen and is achieving 1000 mL on her incentive spirometry with encouragement. Bedside telemetry showing normal sinus rhythm heart rate 64 BPM, no further reports of atrial fibrillation. Atrial epicardial pacemaker wires remain in place and connected to a backup bedside pacemaker generator on an AAI 50 BPM. Her chest x-ray today shows central vascular congestion and small to moderate right greater than left pleural effusion associated with bibasilar compressive atelectasis. She remains afebrile, last 24 hours. The patient's bedside nurse reports that the patient did have some episodes of low blood sugar last night in the 50s, currently her blood sugar is 79 mg/dL. Objective - Vital Signs Vital signs: Vital Signs Temp 97.6 F 07/20/21 04:00 Pulse 72 07/20/21 10:00 Resp 16 07/20/21 10:00 BP 131/65 07/20/21 10:00 Pulse Ox 90 L 07/20/21 10:00 Intake & Output 07/19/21 07/20/21 07/20/21 18:59 06:59 18:59 Intake Total 820 150 150 Output Total 2000 650 0 Balance -1180 -500 150 Weight 66.2 kg Intake: IV 150 D50 150 Intake, IV Titration 100 Amount Dextrose 5% in Water 100 100 ml @ 618 mls/hr IV .Q10M ONE with Amiodarone 150 mg Rx#:[id number] Oral 720 150 Output: Urine 2000 650 0 Other: Voiding Method Bedpan Bedpan Diaper # Voids 1 2 # Bowel Movements 1 ABP, PAP, CO, CI - Last Documented Arterial Blood Pressure 68/53 Pulmonary Artery Pressure 26/10 Cardiac Output 4.3 Cardiac Index 2.8 - Exam CONSTITUTIONAL: Sitting up to the bedside chair in the intensive care unit, appears comfortable, cooperative, no apparent acute distress. HEENT: Neck is supple, no JVD, no lymphadenopathy. RESPIRATORY: Lungs sounds diminished throughout. Respirations are symmetrical and nonlabored. Currently on 12 L high flow nasal cannula with oxygen saturations 95%. Able to achieve 1000 mL on her incentive spirometry. Strong cough. CARDIOVASCULAR: Regular rhythm and rate. S1 and S2 present, negative for S3, gallop or murmur. Sternum is stable. Palpable peripheral pulses bilaterally, trace edema to his bilateral lower extremities. No calf pain or tenderness noted. Heart hugger in place with patient demonstrating appropriate use. Knee- high CHIO hose and sequential compression devices in place to her right lower extremity. GASTROINTESTINAL: Abdomen soft, nontender, nondistended. Active bowel sounds present 4 quadrants. Tolerating diet. Passing flatus. No guarding or rigidity. GENITOURINARY: Continues to void. Urine output 650 mL in the last shift. INTEGUMENTARY: Skin is warm and dry with no evidence of clubbing or cyanosis. Midline sternal incision clean dry and well approximated, covered with dry intact dressing. Right lower extremity EVH site well approximated without redness or drainage. NEUROLOGIC: Cranial nerves II through XII intact. No focal deficits. MUSKULOSKELETAL: Able to move all extremities, strength equal bilaterally, generalized weakness, continues to have non-weightbearing status to her left foot. PSYCHIATRIC: Alert and oriented to person place and time, appropriate affect, intact judgment and insight. INVASIVE LINES AND TUBES: Atrial epicardial pacemaker wires present, and connected to bedside pacemaker generator on an AAI of 50 BPM. - Allied health notes Allied health notes reviewed: nursing - Labs CBC & Chem 7: 07/20/21 03:46 07/20/21 03:46 Labs: Abnormal Lab Results - Last 24 Hours (Table) 07/19/21 07/19/21 07/19/21 Range/Units 12:24 20:53 21:09 RBC (3.80-5.40) m/uL Hgb (11.4-16.0) gm/dL Hct (34.0-46.0) % RDW (11.5-15.5) % Sodium (137-145) mmol/L BUN (7-17) mg/dL Creatinine (0.52-1.04) mg/dL Glucose (74-99) mg/dL POC Glucose (mg/dL) 184 H 61 L 121 H (75-99) mg/dL Calcium (8.4-10.2) mg/dL Total Protein (6.3-8.2) g/dL Albumin (3.5-5.0) g/dL 07/19/21 07/19/21 07/19/21 Range/Units 22:03 22:04 22:22 RBC (3.80-5.40) m/uL Hgb (11.4-16.0) gm/dL Hct (34.0-46.0) % RDW (11.5-15.5) % Sodium (137-145) mmol/L BUN (7-17) mg/dL Creatinine (0.52-1.04) mg/dL Glucose (74-99) mg/dL POC Glucose (mg/dL) 46 L 45 L 211 H (75-99) mg/dL Calcium (8.4-10.2) mg/dL Total Protein (6.3-8.2) g/dL Albumin (3.5-5.0) g/dL 07/19/21 07/20/21 07/20/21 Range/Units 23:31 03:46 03:46 RBC 3.09 L (3.80-5.40) m/uL Hgb 9.3 L (11.4-16.0) gm/dL Hct 29.6 L (34.0-46.0) % RDW 16.5 H (11.5-15.5) % Sodium 136 L (137-145) mmol/L BUN 38 H (7-17) mg/dL Creatinine 0.51 L (0.52-1.04) mg/dL Glucose 43 L* (74-99) mg/dL POC Glucose (mg/dL) 158 H (75-99) mg/dL Calcium 8.2 L (8.4-10.2) mg/dL Total Protein 5.5 L (6.3-8.2) g/dL Albumin 2.6 L (3.5-5.0) g/dL 07/20/21 07/20/21 Range/Units 05:11 05:32 RBC (3.80-5.40) m/uL Hgb (11.4-16.0) gm/dL Hct (34.0-46.0) % RDW (11.5-15.5) % Sodium (137-145) mmol/L BUN (7-17) mg/dL Creatinine (0.52-1.04) mg/dL Glucose (74-99) mg/dL POC Glucose (mg/dL) 51 L 181 H (75-99) mg/dL Calcium (8.4-10.2) mg/dL Total Protein (6.3-8.2) g/dL Albumin (3.5-5.0) g/dL - Imaging and Cardiology Chest x-ray: report reviewed, image reviewed Assessment and Plan Assessment: 1. Multivessel coronary artery disease, non-ST elevated myocardial infarction this admission, status post three-vessel CABG 2. Acute on chronic systolic heart failure, EF 30-35% 3. Bilateral pneumonia with pleural effusions this admission 4. History of cardiomopathy 5. Hypertension 6. Hyperlipidemia, treated, cholesterol 128, LDL 60 7. Uncontrolled insulin-dependent diabetes mellitus with hyperglycemia, hemoglobin AIc 10.2% 8. Current chronic ongoing tobacco abuse 9. Severe COPD with preoperative FEV1 48% of predicted 10. Recent fall from standing with broken left foot with non-weight bearing status 11. History of C. difficile 12. Depression 13. Fibromyalgia, chronic pain syndrome, osteoarthritis 14. Recent accidental overdose according to the patient 15. Preoperative normocytic, normochromic anemia, postoperative acute blood loss anemia and thrombocytopenia, expected 16. Continuing hypotension on low-dose pressors, expected, resolved off pressors 17. Paroxysmal atrial fibrillation, a known common occurrence after cardiac surgery Plan: 1. Continue aspirin, statin, Plavix, and beta aixa with hold parameters. 2. Continue midodrine 10 mg by mouth 3 times a day. 3. Wean O2 as tolerated. Encourage incentive spirometry use 10 times every hour while awake. Bronchodilators per pulmonology. Will defer to pulmonology regarding thoracentesis decision. 4. Increase activity as tolerated. PT/OT/cardiac rehab following. Patient will need rehab at discharge due to challenging ambulation with cast and nonweightbearing status to her left foot, plan is for [facility]. 5. Will monitor daily labs and chest x-rays. Electrolyte replacement per protocol. No further transfusion. 6. Pain control with current medication regimen which is home regiment. 7. Insulin management per primary care service. Patient is an uncontrolled diabetic with preoperative hemoglobin A1c 10.2%. Patient will need tight blood sugar control to prevent infection and promote sternal healing. 8. Patient continues to void, may bladder scan and straight cath for >300 mL residual. 9. Continue to record strict accurate intake and output. Daily weights 10. Dr. Carrillo consulted for patient's left foot fracture for recommendations regarding weight bearing status; per nursing Dr. Carrillo wants patient to remain completely non-weight bearing to left leg. 11. Keep atrial epicardial pacemaker wires in place and connected to a backup pacemaker rate AAI 50. 12. Lasix 40 mg IV 1 now and potassium chloride 20 mg by mouth 1 now. 13. Low-dose lisinopril 2.5 mg by mouth twice a day for afterload reduction by cardiology. 14. We will send a COVID-19 PCR test due to her shortness of breath and as the patient is non-vaccinated. 15. More recommendations to follow based on patient's clinical course. Time with Patient: Greater than 30
[2021-07-20 11:22] LABS: Glucose,Whole Blood 146 mg/dL (75-99)
[2021-07-20] MEDS ORDERED: POTASSIUM CHLORIDE ER 20 MEQ TAB.ER PO STA (15:35)
[2021-07-20 16:41] LABS: Glucose,Whole Blood 173 mg/dL (75-99)
[2021-07-20 20:32] LABS: Glucose,Whole Blood 148 mg/dL (75-99)
[2021-07-20] MEDS: SENNOSIDES-DOCUSATE SODIUM 1 EACH TAB PO SCH (20:58)
[2021-07-20] MEDS: MELATONIN 3 MG TABLET PO SCH (20:59)
[2021-07-21] MEDS: HYDROcodone/APAP 10-325MG 1 EACH TAB PO PRN ×4 (00:12→17:31)
--- NOTE | 2021-07-21 01:32 | P.PN ---
Subjective Progress Note Date: 07/20/21 Acute non-ST elevation ND Status post cardiac catheterization revealing triple-vessel coronary artery disease Acute hypoxic respiratory failure Acute exacerbation systolic CHF Patient is a 61-year-old female came in the appearance of left-sided chest pain and also shortness of breath and patient the had a cast from her recent for for calcaneal fracture. Patient has EF of around 25-30% only on Aldactone at home it appears to be in a bit of heart failure with bilateral pleural effusion CT of the chest showed some infiltrate but no work program. Patient denied any cough. Patient had any fever chills. Patient is found to have mildly elevated troponin. Please refer to non profit director documentation for EKG reading. Patient was evaluated by cardiology and they're recommending catheterization today. 07/11/2021 Patient is seen and evaluated sitting up in bedside chair; denies any complaint of chest pain or shortness of breath but does report feeling anxious about scheduled surgery tomorrow Vital signs are reviewed and remained stable; blood pressure at 122/62 Patient is status post cardiac catheterization which revealed severe triple vessel coronary artery disease; cardiothoracic surgery on board and CABG is planned for tomorrow Patient has been taken off lisinopril given planned surgery tomorrow morning; remains stable on rest of current medications 07/12/2021 Patient is seen and evaluated; denies any complaint of chest pain or shortness of breath; feels anxious and overwhelmed for upcoming surgery this morning Vital signs reveal temperature 98.2, pulse 87, respiration 19 and blood pressure 128/67 with O2 saturation 92% on 2 L Labs revealed WBC 6.2, hemoglobin 10.1, platelet count of 272, blood glucoses ranging between 142-177 Patient is scheduled for OR for CABG 07/13/2021 patient is status post CABG, POD #1, she had triple-vessel urinary artery bypass grafting. Did very well overnight, patient was extubated uneventfully, and at present seems to be doing well. She is only on 2 L nasal cannula, and O2 saturations 97%. Vital signs are reviewed temperature of 99.3, pulse 90, respirations 17 and blood pressure 149/80 Chest x-ray is showing minimal bibasilar opacity/atelectasis. Her indwelling tubes and catheters are unchanged. Clinically the patient is doing great, she is not requiring any inotropes or any pressors. A todd is achieving about 500 mL with her incentive spirometer. WBC count is 7.6 hemoglobin is 8. Her electrolytes are normal 07/14/2021 Patient is seen and evaluated sitting up in a bedside recliner; was successfully extubated yesterday Vital signs are reviewed and remained stable with a temperature of 98.5, pulse 71, respiration 15 and blood pressure of 9659 Thoracic surgery on board recommending to continue with aspirin, statin, Plavix and beta blockers with plans to increase beta aixa therapy as tolerated; patient will be started on low-dose herber for afterload reduction and blood pressure is more stable; continue with amiodarone for prophylactic prevention of atrial fibrillation Continue to increase activity; PT/OT/cardiac rehab 07/15/2021 patient is seen and evaluated in ICU; postoperative day #3; sitting in a recliner, on 2 L nasal cannula, does not seem to be in any distress. Reports fair pain control. She is in sinus rhythm, blood pressure is marginal and her urine output was noted to be a bit on the low side. She did receive a unit of packed RBCs yesterday for hemoglobin of 6.8. She is on a low dose of norepinephrine with minimal improvement in her blood pressure. But no significant improvement noted in urine output. Continues to have left-sided pleural chest tube in place. Lab review shows WBC of 9.0, hemoglobin 9.2, platelets of 135, sodium 136, potassium 3.9, BUN/creatinine of 2019/0.96 Chest x-ray showed mostly atelectasis at the bases, no evidence of congestive heart failure. Continue aspirin statins and Plavix as well as beta blockers; oral amiodarone. Continue pain control 07/16/2021 Patient is seen and evaluated and follow-up continues to be closely monitored in the ICU with multiple medical consultations following. Sugars have been elevated and patient normally takes 70/30 28 units twice daily and will add and continued sliding scale as well. Blood pressure running low and midodrine being increased. Oral amiodarone being discontinued. Chest xray today shows bibasilar opacities right greater than the left component of effusions with atelectasis. Encouraged incentive spirometer at least 10 times every hour while awake. Will be given a dose of lasix. Patient continues with left lower extremity cast and orthopedics consulted. Patient is non-weightbearing and will need continued PT/OT therapy. Social work following as well for possible rehab on discharge. 07/17/2021 Patient is seen in follow-up this morning stating she is not feeling well today. Patient is having some increased nausea and generalized weakness. Patient has zofran as needed and will add IV protonix bid. Blood sugars have been better controlled on current medication regimen and will continue. Patient to have cordis catheter removed. Podiatry consult pending for left lower extremity fracture. Patient continues to report discomfort to this area and temporary cast and herber wraps noted. Patient is currently non-weightbearing to the left lower extremity and unable to work with physical therapy because of the pain and unsteadiness and awaiting recommendations. Patient is more short of breath today and requiring 7L of 02 via NC. Chest ultrasound ordered. 07/18/2021 Patient is seen and evaluated in the ICU and is being closely monitored. Patient continues on 5L via NC and states that her oxygen saturations have been low and she denies any worsening shortness of breath. Patient is sitting up in the chair and currently receiving a breathing treatment. Patient does have history of COPD and states that she does not use inhalers or nebulizers for this. Patient denies oxygen use in the outpatient setting. Patient given IV lasix today. Patient does have incentive spirometer at the bedside and strongly encouraged to continue using at least 10 times every hour while awake. Blood sugars on the lower side and patient states she is eating and denies any further nausea today. 07/19/2021 Patient is evaluated this morning and continues to be closely monitored in the ICU. Patient is having increasing shortness of breath and has received another dose of IV Lasix as chest x-ray shows cardiomegaly with central vascular congestion and small to moderate size greater than left pleural effusions and associated basilar compressive atelectasis on the background chronic parenchymal changes are redemonstrated with no significant change from previous day. Patient is currently maintained on BiPAP at 50% and intermittently using high flow cannula at 15 L. Patient also experienced some atrial fibrillation with RVR and cardiology following closely. Patient is maintained on IV amiodarone along with metoprolol. 07/20/2021 Patient is seen and evaluated this morning in the ICU being closely monitored with multiple medical consultations including CT surgery, cardiology, pulmonary book coverer, and orthopedics evaluated the patient. Patient Does have a history of a fracture of the left calcaneus and Dr. Carrillo evaluated the patient. Patient has been followed in the outpatient setting for management of a Charcot joint disease and fracture of the left calcaneus and is currently maintained on a posterior splint and was awaiting a walker boot for the left lower extremity. She is to continue nonweightbearing of that left lower extremity and will follow with PT/OT therapy. She continues with low oxygen saturations and currently maintained on 15 L high flow and titrating as tolerated. Patient denies any worsening shortness of breath. Patient was also continued on breathing inhalational treatments and Mucomyst. Patient was also continued on NovoLog 70/30 at 25 units twice a day and continues to have low blood sugar readings in the mornings and will discontinue and continue just sliding scale. Patient not eating very much. Encouraged oral intake. Labs: WBC is 6.2, hemoglobin is 9.3, platelets are 275, sodium 136, potassium 3.9, BUN 38, creatinine 0.51, glucose is 43 this morning, calcium 8.2 Review of systems: Constitutional: reports of fatigue, no reports of fever, or chills Cardiovascular: No reports of chest pain or palpitations Respiratory: no reports of worsening shortness of breath GI: No reports of nausea, vomiting, or diarrhea : No reports of dysuria or retention Neurovascular: reports of generalized weakness, left lower extremity pain All medications have been reviewed Active Medications Acetaminophen (Acetaminophen Tab 325 Mg Tab) 650 mg PO Q4HR PRN PRN Reason: Fever and/ or Pain Last Admin: 07/18/21 21:49 Dose: 650 mg Documented by: Hydrocodone Bitart/Acetaminophen (Hydrocodone/Apap 10-325mg 1 Each Tab) 1 each PO Q6HR PRN PRN Reason: Pain Last Admin: 07/20/21 07:36 Dose: 1 each Documented by: Acetylcysteine (Acetylcysteine 800 Mg/4 Ml Vial) 200 mg INHALATION RT-QID [facility] Last Admin: 07/20/21 08:16 Dose: 200 mg Documented by: Albuterol/Ipratropium (Ipratropium-Albuterol 3 Ml Neb) 3 ml INHALATION RT-Q2H PRN PRN Reason: Shortness Of Breath Or Wheezing Albuterol/Ipratropium (Ipratropium-Albuterol 3 Ml Neb) 3 ml INHALATION RT-QID [facility] Last Admin: 07/20/21 08:16 Dose: 3 ml Documented by: Aspirin (Aspirin 325 Mg Tab) 325 mg PO DAILY [facility] Last Admin: 07/20/21 09:04 Dose: 325 mg Documented by: Atorvastatin Calcium (Atorvastatin 40 Mg Tab) 40 mg PO DAILY [facility] Last Admin: 07/20/21 09:04 Dose: 40 mg Documented by: Benzocaine/Menthol (Benzocaine/Menthol Lozeng 1 Each Lozenge) 1 each MUCOUS MEM Q2H PRN PRN Reason: Sore Throat Bisacodyl (Bisacodyl 10 Mg Supp) 10 mg RECTAL DAILY PRN PRN Reason: Constipation Budesonide/Formoterol Fumarate (Symbicort 160-4.5 Mcg Inhaler) 2 puff INHALATION RT-BID [facility] Last Admin: 07/20/21 08:16 Dose: 2 puff Documented by: Clopidogrel Bisulfate (Clopidogrel 75 Mg Tab) 75 mg PO DAILY [facility] Last Admin: 07/20/21 09:04 Dose: 75 mg Documented by: Duloxetine HCl (Duloxetine Hcl 30 Mg Capsule.Dr) 30 mg PO DAILY [facility] Last Admin: 07/20/21 09:04 Dose: 30 mg Documented by: Gabapentin (Gabapentin 100 Mg Cap) 100 mg PO DAILY [facility] Last Admin: 07/20/21 09:04 Dose: 100 mg Documented by: Gabapentin (Gabapentin 100 Mg Cap) 100 mg PO HS [facility] Last Admin: 07/19/21 20:52 Dose: 100 mg Documented by: Heparin Sodium (Porcine) (Heparin Sodium,Porcine/Pf 5,000 Unit/0.5 Ml Syringe) 5,000 unit SQ Q8HR [facility] Last Admin: 07/20/21 09:04 Dose: 5,000 unit Documented by: Amiodarone HCl 150 mg/ (Dextrose/Water) 103 mls @ 618 mls/hr IV .Q10M PRN; Protocol PRN Reason: A.FIB/FLUTTER Last Admin: 07/19/21 08:30 Dose: 618 mls/hr Documented by: Amiodarone HCl 360 mg/ (Dextrose/Water) 207.2 mls @ 34.533 mls/hr IV .Q6H PRN; Protocol PRN Reason: A.FIB/FLUTTER Amiodarone HCl 450 mg/ (Dextrose/Water) 250 mls @ 16.667 mls/hr IV .Q15H PRN; Protocol PRN Reason: A.FIB/FLUTTER Insulin Aspart (Insulin Aspart (Novolog) 100 Unit/Ml Vial) 0 unit SQ [facility]; Protocol Last Admin: 07/20/21 07:39 Dose: Not Given Documented by: Lisinopril (Lisinopril 2.5 Mg Tab) 2.5 mg PO BID [facility] Magnesium Hydroxide (Magnesium Hydroxide 2,400 Mg/10 Ml Cup) 2,400 mg PO BID PRN PRN Reason: Constipation Last Admin: 07/16/21 14:34 Dose: 2,400 mg Documented by: Melatonin (Melatonin 3 Mg Tablet) 6 mg PO [facility] Last Admin: 07/19/21 20:52 Dose: 6 mg Documented by: Metoclopramide HCl (Metoclopramide 5 Mg/Ml 2 Ml Vial) 10 mg IVP Q4H PRN PRN Reason: Nausea And Vomiting Last Admin: 07/17/21 13:01 Dose: 10 mg Documented by: Metoprolol Tartrate (Metoprolol Tartrate 12.5 Mg Tab) 12.5 mg PO BID [facility] Last Admin: 07/20/21 09:04 Dose: 12.5 mg Documented by: Midodrine (Midodrine 5 Mg Tab) 10 mg PO AC-TID [facility] Last Admin: 07/20/21 07:36 Dose: 10 mg Documented by: Miscellaneous Information (Potassium Replacement Protocol 1 Each Misc) 1 each MISCELLANE DAILY PRN; Protocol PRN Reason: Per Protocol Miscellaneous Information (Magnesium Replacement Protocol 1 Each Misc) 1 each MISCELLANE DAILY PRN; Protocol PRN Reason: Per Protocol Miscellaneous Information (Phosphorus Replacement Protoco 1 Each Misc) 1 each MISCELLANE DAILY PRN; Protocol PRN Reason: Per Protocol Ondansetron HCl (Ondansetron 4 Mg/2 Ml Vial) 4 mg IVP Q6HR PRN PRN Reason: Nausea And Vomiting Pantoprazole Sodium (Pantoprazole 40 Mg/10 Ml Vial) 40 mg IVP BID [facility] Last Admin: 07/20/21 09:22 Dose: 40 mg Documented by: Senna/Docusate Sodium (Sennosides-Docusate Sodium 1 Each Tab) 2 each PO HS [facility] Last Admin: 07/19/21 20:52 Dose: 2 each Documented by: Sodium Chloride (Sodium Chloride 0.9% Flush 10 Ml Syringe) 10 ml IV BID [facility] Last Admin: 07/19/21 20:53 Dose: 10 ml Documented by: Physical exam: Gen: This is a 61-year-old female awake, alert and oriented 3, well-developed, well-nourished. Temp is 97.8F, pulse is 66, respirations are 18, blood pressure arterial is 120/71, oxygen saturation is 98 % on 15 L high flow nasal cannula HEENT: Head is atraumatic, normocephalic. Pupils equal, round. Sclerae is anicteric. NECK: Supple. No JVD. No lymphadenopathy. No thyromegaly. LUNGS: diminished breath sounds bilaterally with No wheezes and some scattered rhonchi and crackles noted. No intercostal retractions. HEART: S1, S2 muffled. ABDOMEN: Soft. Bowel sounds are present. No masses. No tenderness. EXTREMITIES: No pedal edema. No calf tenderness. NEUROLOGICAL: Patient is awake, alert and oriented x3. Cranial nerves 2 through 12 are grossly intact. diffusely weak Assessment: -Acute non-ST elevation myocardial infarction: Patient is status post cardiac catheterization triple-vessel disease CABG -Acute hypoxic respiratory failure secondary to congestive heart failure c hronic systolic dysfunction with acute exacerbation -Pneumonia ruled out for calcitonin is low. -Continued ongoing Nicotine use: Counseling was provided -COPD, not in acute exacerbation -Type 2 diabetes mellitus, uncontrolled with hyperglycemia and hypoglycemia -Hyperlipidemia -hypervolemic hyponatremia -hypertension, currently hypotensive -Charcot's foot disease with left calcaneus fracture status post fall with partial casting and was being followed with Dr. Carrillo in the outpatient setting awaiting specialty boot -GI prophylaxis -DVT prophylaxis -Full code Plan: Recommend to continue with current medications and management. Patient being followed closely by CT surgery along with cardiology and pulmonary. Orthopedics following as well and awaiting specialty boot for Charcot's foot with calcaneus fracture of the left side. Blood sugars are viable and running on the lower side and NovoLog 70/30 was discontinued and we'll continue sliding scale and Accu-Cheks before meals and at bedtime. Patient encouraged continued incentive spirometer use and increase exercise as tolerated. Patient will need to work with physical therapy and continue with left lower extremity non-weightbearing. Will repeat am labs and continue to monitor closely. Continue to wean FI02 as tolerated. Patient requiring more oxygen and now currently on 15 L high flow with intermittent BiPAP use as needed. Recommend to continue with breathing inhalational treatments. Covid 19 testing ordered. Due to multiple complex medical issues, prognosis is guarded. Objective - Vital Signs Vital signs: Vital Signs Temp 97.6 F 07/20/21 04:00 Pulse 67 07/20/21 08:31 Resp 16 07/20/21 08:00 BP 91/61 07/20/21 08:00 Pulse Ox 91 L 07/20/21 08:00 Intake & Output 07/19/21 07/20/21 07/20/21 18:59 06:59 18:59 Intake Total 820 150 150 Output Total 2000 650 0 Balance -1180 -500 150 Weight 66.2 kg Intake: IV 150 D50 150 Intake, IV Titration 100 Amount Dextrose 5% in Water 100 100 ml @ 618 mls/hr IV .Q10M ONE with Amiodarone 150 mg Rx#:[id number] Oral 720 150 Output: Urine 2000 650 0 Other: Voiding Method Bedpan Bedpan Diaper # Voids 1 2 # Bowel Movements 1 ABP, PAP, CO, CI - Last Documented Arterial Blood Pressure 68/53 Pulmonary Artery Pressure 26/10 Cardiac Output 4.3 Cardiac Index 2.8 - Labs CBC & Chem 7: 07/20/21 03:46 07/20/21 03:46 Labs: Abnormal Lab Results - Last 24 Hours (Table) 07/19/21 07/19/21 07/19/21 Range/Units 12:24 20:53 21:09 RBC (3.80-5.40) m/uL Hgb (11.4-16.0) gm/dL Hct (34.0-46.0) % RDW (11.5-15.5) % Sodium (137-145) mmol/L BUN (7-17) mg/dL Creatinine (0.52-1.04) mg/dL Glucose (74-99) mg/dL POC Glucose (mg/dL) 184 H 61 L 121 H (75-99) mg/dL Calcium (8.4-10.2) mg/dL Total Protein (6.3-8.2) g/dL Albumin (3.5-5.0) g/dL 07/19/21 07/19/21 07/19/21 Range/Units 22:03 22:04 22:22 RBC (3.80-5.40) m/uL Hgb (11.4-16.0) gm/dL Hct (34.0-46.0) % RDW (11.5-15.5) % Sodium (137-145) mmol/L BUN (7-17) mg/dL Creatinine (0.52-1.04) mg/dL Glucose (74-99) mg/dL POC Glucose (mg/dL) 46 L 45 L 211 H (75-99) mg/dL Calcium (8.4-10.2) mg/dL Total Protein (6.3-8.2) g/dL Albumin (3.5-5.0) g/dL 07/19/21 07/20/21 07/20/21 Range/Units 23:31 03:46 03:46 RBC 3.09 L (3.80-5.40) m/uL Hgb 9.3 L (11.4-16.0) gm/dL Hct 29.6 L (34.0-46.0) % RDW 16.5 H (11.5-15.5) % Sodium 136 L (137-145) mmol/L BUN 38 H (7-17) mg/dL Creatinine 0.51 L (0.52-1.04) mg/dL Glucose 43 L* (74-99) mg/dL POC Glucose (mg/dL) 158 H (75-99) mg/dL Calcium 8.2 L (8.4-10.2) mg/dL Total Protein 5.5 L (6.3-8.2) g/dL Albumin 2.6 L (3.5-5.0) g/dL 07/20/21 07/20/21 Range/Units 05:11 05:32 RBC (3.80-5.40) m/uL Hgb (11.4-16.0) gm/dL Hct (34.0-46.0) % RDW (11.5-15.5) % Sodium (137-145) mmol/L BUN (7-17) mg/dL Creatinine (0.52-1.04) mg/dL Glucose (74-99) mg/dL POC Glucose (mg/dL) 51 L 181 H (75-99) mg/dL Calcium (8.4-10.2) mg/dL Total Protein (6.3-8.2) g/dL Albumin (3.5-5.0) g/dL
[2021-07-21 03:46] LABS: Anisocytosis Slight; Basophils % (A) 0 %; Eosinophils % (A) 15 %; HCT 28.1 % (34.0-46.0); HGB 8.7 gm/dL (11.4-16.0); Hypochromasia Moderate; Lymphocytes # (A) 1.3 k/uL (1.0-4.8); Lymphocytes % (A) 20 %; MCH 29.7 pg (25.0-35.0); MCHC 31.1 g/dL (31.0-37.0); MCV 95.6 fL (80.0-100.0); Mean Platelet Volume 7.3; Monocytes # (A) 0.4 k/uL (0-1.0); Monocytes % (A) 6 %; Neutrophils # (A) 3.7 k/uL (1.3-7.7); Neutrophils % (A) 56 %; Platelet Count 311 k/uL (150-450); RBC 2.94 m/uL (3.80-5.40); RDW 16.6 % (11.5-15.5); WBC 6.6 k/uL (3.8-10.6)
[2021-07-21 04:06] LABS: African American GFR (CKD) >90 (>60 ml/min/1.73 sqM); Anion Gap 6 mmol/L; Blood Urea Nitrogen 34 mg/dL (7-17); Carbon Dioxide 29 mmol/L (22-30); Chloride 100 mmol/L (98-107); Glucose 154 mg/dL (74-99); Non-African American GFR(CKD) >90 (>60 ml/min/1.73 sqM); Potassium 4.4 mmol/L (3.5-5.1); Sodium 135 mmol/L (137-145)
[2021-07-21] MEDS: MIDODRINE 5 MG TAB PO SCH ×3 (06:19→17:31)
--- NOTE | 2021-07-21 06:28 | XR ---
EXAMINATION TYPE: XR chest 1V portable DATE OF EXAM: 07/21/2021 COMPARISON: 07/20/2021 HISTORY: Postcardiac surgery TECHNIQUE: Single frontal view of the chest is obtained. FINDINGS: There is moderate pulmonary vascular congestion and moderate bilateral pleural effusions. There has been no significant interval change. There is no pneumothorax. The heart size is normal. Th ere are postsurgical changes consistent with recent cardiac surgery. IMPRESSION: No change in the pulmonary vascular congestion, mild to moderate interstitial edema and moderate bilateral pleural effusions.
[2021-07-21 06:36] LABS: Glucose,Whole Blood 155 mg/dL (75-99)
[2021-07-21] MEDS: INSULIN ASPART (NovoLOG) 100 UNIT/ML VIAL SQ SCH ×4 (08:00→21:33)
--- NOTE | 2021-07-21 09:26 | PCN ---
PROCEDURE NOTE PROCEDURE: Right-sided thoracentesis. OPERATORS: 1. Dr. Ritter. 2. Dr. Olivas. PREOPERATIVE DIAGNOSIS: Right pleural effusion. POSTOPERATIVE DIAGNOSIS: Right pleural effusion. PROCEDURE DESCRIPTION: There was informed consent and universal timeout. A time-out was completed verifying correct patient, procedure, site, positioning , and implant (s) or special equipment if applicable. Ultrasound guidance was used and appropriate fluid pocket was identified and marked on the posterior right chest. Patient was positioned, prepped and draped in usual sterile fashion. Lidocaine was used to anesthetize the area. A thoracentesis catheter was introduced into the pleural space and fluid was removed. Blood loss was none. The fluid will be sent for analysis; for cytology, microbiology and chemistry. A chest x-ray was ordered to evaluate for pneumothorax. Total Fluid Removed: 1.3 liters Color of Fluid: Reddish The patient tolerated the procedure well without any major difficulties. MMODL / IJN: [id number] /
[2021-07-21] MEDS ORDERED: FUROSEMIDE 10 MG/ML 4 ML VIAL IV STA (09:31)
[2021-07-21] MEDS ORDERED: POTASSIUM CHLORIDE ER 10 MEQ TAB.ER.PRT PO STA (09:31)
[2021-07-21] MEDS: ASPIRIN 325 MG TAB PO SCH (09:35)
[2021-07-21] MEDS: METOPROLOL TARTRATE 12.5 MG TAB PO SCH (09:35)
[2021-07-21] MEDS: ATORVASTATIN 40 MG TAB PO SCH (09:35)
[2021-07-21] MEDS: GABAPENTIN 100 MG CAP PO SCH ×3 (09:35→21:34)
[2021-07-21] MEDS: PANTOPRAZOLE 40 MG/10 ML VIAL IVP SCH ×2 (09:36→21:33)
[2021-07-21] MEDS: ACETYLCYSTEINE 800 MG/4 ML VIAL INHALATION SCH ×4 (09:37→19:45)
[2021-07-21] MEDS: HEPARIN SODIUM,PORCINE/PF 5,000 UNIT/0.5 ML SYRINGE SQ SCH ×2 (09:37→16:05)
[2021-07-21] MEDS: CLOPIDOGREL 75 MG TAB PO SCH ×2 (09:37→10:58)
--- NOTE | 2021-07-21 09:37 | XR ---
EXAMINATION TYPE: XR chest 1V portable DATE OF EXAM: 07/21/2021 COMPARISON: 07/21/2021 HISTORY: Post right thoracentesis. TECHNIQUE: Single frontal view of the chest is obtained. FINDINGS: There is a small right pleural effusion smaller following right-sided thoracentesis. There is no pneumothorax. There is a [id number] left pleural effusion. The pulmonary vasculature is congested and there is diffuse interstitial opacity consistent with inte rstitial edema. There are postsurgical changes of CABG surgery. Heart size is normal. The osseous structures are intact IMPRESSION: Decreased right pleural effusion following right-sided thoracentesis. There is a persist ent small to moderate left pleural effusion and pulmonary vascular congestion as well as interstitial edema.
[2021-07-21] MEDS: SYMBICORT 160-4.5 MCG INHALER INHALATION SCH ×2 (09:38→19:46)
[2021-07-21] MEDS: IPRATROPIUM-ALBUTEROL 3 ML NEB INHALATION SCH ×4 (09:38→19:45)
--- NOTE | 2021-07-21 09:39 | P.PN ---
Subjective Progress Note Date: 07/21/21 Principal diagnosis: Multivessel coronary artery disease, non-ST elevated myocardial infarction this admission, acute on chronic systolic heart failure, bilateral pneumonia with pl eural effusions this admission. Past medical history significant for cardiomopathy, hypertension, hyperlipidemia, uncontrolled insulin-dependent diabetes mellitus with hyperglycemia and an admission glucose of 420, osteoarthritis, insomnia, degenerative disc disease, pneumonia, C. difficile, depression, fibromyalgia, chronic pain syndrome, current ongoing tobacco abuse, COPD, recent fall from standing with broken foot with non-weight bearing status, recent accidental overdose according to the patient, preoperative normocytic normochromic anemia. POD #9 triple vessel coronary artery bypass grafting using the left internal mammary artery sequentially in a [id number] fashion to the mid left anterior descending artery, then in an end to side fashion to the distal left anterior descending artery, reverse saphenous vein graft from the aorta to the first obtuse marginal artery, reverse saphenous vein graft from the aorta to the right coronary artery after the takeoff of the early arising posterior descending artery, exclusion of the left atrial appendage using a 35 mm AtriClip, sternal plating using the [place] system, harvesting of the right greater saphenous vein from the groin to above the ankle level, intraoperative transesophageal echocardiogram and epi-aortic scanning, intraoperative graft flow measurements using the [employer] [place] system Postoperative acute blood loss anemia and thrombocytopenia, expected outcomes given cardiopulmonary bypass pump and hemodilution as well as her preoperative anemia. Paroxysmal atrial fibrillation, a known common occurrence after cardiac surgery. The patient was seen in follow-up today 07/21/2021 at her bedside in the intensive care unit. Currently she is sitting up to the bedside chair, is awake, alert and oriented 3 and is in no acute distress. She denies any complaints of pain at this time, although reports she does get somewhat short of breath with activity. Currently she is on 15 L high flow nasal cannula oxygen with oxygen saturations 93%. Achieving 1000 mL on her incentive spirometry with encouragement. Bedside telemetry showing normal sinus rhythm heart rate 69 BPM. No further reports of atrial fibrillation. She remains afebrile the last 24 hours. She is currently hemodynamically stable and is on no inotropic or pressor support. She underwent a right-sided thoracentesis this morning performed by Dr. Ritter with 1.3 L of pleural fluid drained. She is scheduled for a left-sided thoracentesis tomorrow morning 07/22/2021. Objective - Vital Signs Vital signs: Vital Signs Temp 98 F 07/21/21 04:00 Pulse 68 07/21/21 07:00 Resp 20 07/21/21 07:00 BP 122/71 07/21/21 07:00 Pulse Ox 95 07/21/21 07:00 Intake & Output 07/20/21 07/21/21 07/21/21 18:59 06:59 18:59 Intake Total 740 720 Output Total 0 500 Balance 740 220 Weight 65.4 kg Intake: Oral 740 720 Output: Urine 0 500 Other: Voiding Method Diaper Diaper # Voids 1 0 1 ABP, PAP, CO, CI - Last Documented Arterial Blood Pressure 68/53 Pulmonary Artery Pressure 26/10 Cardiac Output 4.3 Cardiac Index 2.8 - Exam CONSTITUTIONAL: Sitting up to the bedside chair in the intensive care unit, appears comfortable, cooperative, no apparent acute distress. HEENT: Neck is supple, no JVD, no lymphadenopathy. RESPIRATORY: Lungs sounds diminished throughout. Respirations are symmetrical and nonlabored. Currently on 15 L high flow nasal cannula with oxygen saturations 93%. Able to achieve 1000 mL on her incentive spirometry. Strong cough. CARDIOVASCULAR: Regular rhythm and rate. S1 and S2 present, negative for S3, gallop or murmur. Sternum is stable. Palpable peripheral pulses bilaterally, +1 edema to his bilateral lower extremities. No calf pain or tenderness noted. Heart hugger in place with patient demonstrating appropriate use. Knee-high CHIO hose and sequential compression devices in place to her right lower extremity. GASTROINTESTINAL: Abdomen soft, nontender, nondistended. Active bowel sounds present 4 quadrants. Tolerating diet. Passing flatus. No guarding or rigidity. GENITOURINARY: Continues to void. Episodes of incontinence. INTEGUMENTARY: Skin is warm and dry with no evidence of clubbing or cyanosis. Midline sternal incision clean dry and well approximated, covered with dry intact dressing. Right lower extremity EVH site well approximated without redness or drainage. NEUROLOGIC: Cranial nerves II through XII intact. No focal deficits. MUSKULOSKELETAL: Able to move all extremities, strength equal bilaterally, generalized weakness, continues to have non-weightbearing status to her left wilma t. PSYCHIATRIC: Alert and oriented to person place and time, appropriate affect, intact judgment and insight. INVASIVE LINES AND TUBES: Atrial epicardial pacemaker wires present, and connected to bedside pacemaker generator on an AAI of 50 BPM. - Allied health notes Allied health notes reviewed: nursing - Labs CBC & Chem 7: 07/21/21 03:13 07/21/21 03:13 Labs: Abnormal Lab Results - Last 24 Hours (Table) 07/20/21 07/20/21 07/20/21 Range/Units 11:20 16:40 20:30 RBC (3.80-5.40) m/uL Hgb (11.4-16.0) gm/dL Hct (34.0-46.0) % RDW (11.5-15.5) % Eosinophils # (0-0.7) k/uL Sodium (137-145) mmol/L BUN (7-17) mg/dL Glucose (74-99) mg/dL POC Glucose (mg/dL) 146 H 173 H 148 H (75-99) mg/dL Calcium (8.4-10.2) mg/dL 07/21/21 07/21/21 07/21/21 Range/Units 03:13 03:13 06:35 RBC 2.94 L (3.80-5.40) m/uL Hgb 8.7 L (11.4-16.0) gm/dL Hct 28.1 L (34.0-46.0) % RDW 16.6 H (11.5-15.5) % Eosinophils # 1.0 H (0-0.7) k/uL Sodium 135 L (137-145) mmol/L BUN 34 H (7-17) mg/dL Glucose 154 H (74-99) mg/dL POC Glucose (mg/dL) 155 H (75-99) mg/dL Calcium 8.0 L (8.4-10.2) mg/dL - Imaging and Cardiology Chest x-ray: report reviewed, image reviewed Assessment and Plan Assessment: 1. Multivessel coronary artery disease, non-ST elevated myocardial infarction this admission, status post three-vessel CABG 2. Acute on chronic systolic heart failure, EF 30-35% 3. Bilateral pneumonia with pleural effusions this admission 4. History of cardiomopathy 5. Hypertension 6. Hyperlipidemia, treated, cholesterol 128, LDL 60 7. Uncontrolled insulin-dependent diabetes mellitus with hyperglycemia, hemoglobin AIc 10.2% 8. Current chronic ongoing tobacco abuse 9. Severe COPD with preoperative FEV1 48% of predicted 10. Recent fall from standing with broken left foot with non-weight bearing status 11. History of C. difficile 12. Depression 13. Fibromyalgia, chronic pain syndrome, osteoarthritis 14. Recent accidental overdose according to the patient 15. Preoperative normocytic, normochromic anemia, postoperative acute blood loss anemia and thrombocytopenia, expected 16. Continuing hypotension on low-dose pressors, expected, resolved off presso rs 17. Paroxysmal atrial fibrillation, a known common occurrence after cardiac surgery Plan: 1. Continue aspirin, statin, Plavix, and beta aixa with hold parameters. 2. Continue midodrine 10 mg by mouth 3 times a day. 3. Wean O2 as tolerated. Encourage incentive spirometry use 10 times every hour while awake. Bronchodilators per pulmonology. Will defer to pulmonology regarding thoracentesis decision. 4. Increase activity as tolerated. PT/OT/cardiac rehab following. Patient will need rehab at discharge due to challenging ambulation with cast and non-weightbearing status to her left foot, plan is for [facility]. 5. Will monitor daily labs and chest x-rays. Electrolyte replacement per protocol. No further transfusion. 6. Pain control with current medication regimen which is home regiment. 7. Insulin management per primary care service. Patient is an uncontrolled diabetic with preoperative hemoglobin A1c 10.2%. Patient will need tight blood sugar control to prevent infection and promote sternal healing. 8. Patient continues to void, may bladder scan and straight cath for >300 mL residual. Having episodes of incontinence. 9. Continue to record strict accurate intake and output. Daily weights 10. Dr. Carrillo consulted for patient's left foot fracture for recommendations regarding weight bearing status; per nursing Dr. Carrillo wants patient to remain completely non-weight bearing to left leg. 11. Keep atrial epicardial pacemaker wires in place and connected to a backup pacemaker rate AAI 50. 12. Lasix 40 mg IV 1 now and potassium chloride 10 mg by mouth 1 now. 13. Continue Low-dose lisinopril 2.5 mg by mouth twice a day for afterload reduction. 14. She is scheduled for a left-sided thoracentesis tomorrow to be performed by Dr. Charanjit Ritter. 15. More recommendations to follow based on patient's clinical course. Time with Patient: Greater than 30
[2021-07-21] MEDS: DULoxetine HCL 30 MG CAPSULE.DR PO SCH (09:46)
--- NOTE | 2021-07-21 09:55 | P.PN ---
Subjective Progress Note Date: 07/21/21 The patient is seen today 07/18/2021 in follow-up in the intensive care unit. She is status post coronary artery bypass grafting. Postoperative day #6. She is awake and alert, in no acute distress. Currently maintaining O2 saturation in the 90s on 5 L/m per nasal cannula. 0.9 normal saline at 20 ML's per hour. Chest x-ray shows evidence of cardiomegaly with central vascular congestion and small to moderate right greater than left pleural effusions with associated bibasilar compressive atelectasis. Similar to yesterday. She is status post 2 units of packed red blood cells this admission. Current hemoglobin 9.4. White count 7.2. Platelet count 231. Sodium 137. Potassium 4.7. Creatinine 0.82. Glucose 153. TSH 1.74. She remains on DuoNeb inhalations, Symbicort, Mucomyst inhalations. Heparin for DVT prophylaxis. She is under warming blanket. Current temperature 97.5. She is bradycardic in the 50s. Blood pressure stable. Remains on midodrine. Cardiac output 4.3. Cardiac index 2.8. The patient is seen today 07/19/2021 in follow-up in the intensive care unit. She is awake and alert in no acute distress. Currently sitting up in a chair at the bedside. She did develop new onset atrial fibrillation and received amiodarone bolus. Blood pressure stable. She also was requiring 15 L high flow nasal cannula to maintain O2 saturations in the 90s. Chest x-ray continues to show cardiomegaly with central vascular congestion and small to moderate right greater than left pleural effusions with associated bibasilar compressive atelectasis. She received Lasix times to yesterday. She is status post 2 units of packed red blood cells this admission. Current hemoglobin 8.5. Platelets 221. INR 1.4. White count 8.3. Hemoglobin 8.5. Sodium 137. Potassium 4.5. Creatinine 0.68. TSH 3.52. Currently on heparin subcutaneous for DVT prophylaxis. Working well with the incentive spirometer. Up with assistance. The patient is seen today 07/20/2021 in follow-up in the intensive care unit. She is awake and alert in no acute distress. Currently resting comfortably in bed. She denies any worsening shortness of breath, cough or congestion. She did utilize the BiPAP last evening 07/08 and 50% FiO2. She is currently on 12 L high flow nasal cannula with O2 saturation 91%. She still pulling approximately 1 L on the incentive spirometer. Pacer wires remain in place. Chest tubes have been removed. Today's chest x-ray reveals cardiomegaly with central vascular congestion and small to moderate right greater than left pleural effusions with associated bibasilar compressive atelectasis. Improved today compared to yesterday. White count 6.2. Hemoglobin 9.3. Sodium 136. Potassium 3.9. Creatinine 0.51. Glucose 43 improved to 181. Albumin 2.6. Remains in normal sinus rhythm. Continued on heparin for DVT prophylaxis. Remains on Symbicort, DuoNeb inhalations. She had been seen by podiatry and is still to remain nonweightbearing on the left foot due to her Charcot joint fracture with fractured calcaneus. The patient is seen today 07/21/2021 in follow-up in the intensive care unit. Postoperative day #9. She is awake and alert in no acute distress. She is currently sitting up in a chair at the bedside. She continues to require 15 L high flow nasal cannula to maintain O2 saturations in the 90s. No IV fluids running. Chest x-ray continues to revealed bilateral pleural effusions. White count 6.6. Hemoglobin 8.7. Sodium 135. Potassium 4.4. Creatinine 0.53. She remains on DuoNeb inhalations, Symbicort. Heparin for DVT prophylaxis. She continues to work well with the incentive spirometer. She is being transferred to the chair and back to bed with a Moises lift as she is nonweightbearing of the left foot due to her Charcot joint fracture with fractured calcaneus. Objective - Vital Signs Vital signs: Vital Signs Temp 98 F 07/21/21 04:00 Pulse 70 07/21/21 09:38 Resp 17 07/21/21 09:38 BP 122/71 07/21/21 07:00 Pulse Ox 93 L 07/21/21 09:38 Intake & Output 07/20/21 07/21/21 07/21/21 18:59 06:59 18:59 Intake Total 740 720 Output Total 0 500 Balance 740 220 Weight 65.4 kg Intake: Oral 740 720 Output: Urine 0 500 Other: Voiding Method Diaper Diaper # Voids 1 0 1 ABP, PAP, CO, CI - Last Documented Arterial Blood Pressure 68/53 Pulmonary Artery Pressure 26/10 Cardiac Output 4.3 Cardiac Index 2.8 - Exam GENERAL EXAM: Alert, pleasant, 61-year-old female patient, currently resting in bed, currently on 15 L of oxygen, comfortable in no apparent distress. HEAD: Normocephalic/atraumatic. EYES: Normal reaction of pupils, equal size. Conjunctiva pink, sclera white. NOSE: Clear with pink turbinates. THROAT: No erythema or exudates. NECK: No masses, no JVD, no thyroid enlargement, no adenopathy. CHEST: No chest wall deformity. Symmetrical expansion. Midsternal incision is clean dry and intact, chest tubes removed and sites are clean dry and intact LUNGS: Equal air entry with crackles in the bilateral bases. CVS: Regular rate and rhythm, normal S1 and S2, no gallops, no murmurs, no rubs ABDOMEN: Soft, nontender. No hepatosplenomegaly, normal bowel sounds, no guarding or rigidity. EXTREMITIES: Remains with boot on left foot. Left lower extremity incision is covered with surgical dressing, SCDs on bilateral legs MUSCULOSKELETAL: Muscle strength and tone normal. SPINE: No scoliosis or deformity SKIN: No rashes CENTRAL NERVOUS SYSTEM: No focal deficits, tone is normal in all 4 extremities. PSYCHIATRIC: Alert and oriented -3. Appropriate affect. Intact judgment and insight. - Labs CBC & Chem 7: 07/21/21 03:13 07/21/21 03:13 Labs: Abnormal Lab Results - Last 24 Hours (Table) 07/20/21 07/20/21 07/20/21 Range/Units 11:20 16:40 20:30 RBC (3.80-5.40) m/uL Hgb (11.4-16.0) gm/dL Hct (34.0-46.0) % RDW (11.5-15.5) % Eosinophils # (0-0.7) k/uL Sodium (137-145) mmol/L BUN (7-17) mg/dL Glucose (74-99) mg/dL POC Glucose (mg/dL) 146 H 173 H 148 H (75-99) mg/dL Calcium (8.4-10.2) mg/dL 07/21/21 07/21/21 07/21/21 Range/Units 03:13 03:13 06:35 RBC 2.94 L (3.80-5.40) m/uL Hgb 8.7 L (11.4-16.0) gm/dL Hct 28.1 L (34.0-46.0) % RDW 16.6 H (11.5-15.5) % Eosinophils # 1.0 H (0-0.7) k/uL Sodium 135 L (137-145) mmol/L BUN 34 H (7-17) mg/dL Glucose 154 H (74-99) mg/dL POC Glucose (mg/dL) 155 H (75-99) mg/dL Calcium 8.0 L (8.4-10.2) mg/dL Assessment and Plan Assessment: 1 Acute non-ST segment elevation myocardial infarction and a patient found to have severe triple-vessel disease, status post coronary artery bypass grafting. Postoperative day #9. 2 Acute hypoxemic respiratory failure secondary to an acute exacerbation of systolic congestive heart failure and bilateral pleural effusions left greater than right. Status post right-sided thoracentesis on 07/21/2021 with 1.3 L of bloody fluid removed. 3 Chronic and ongoing tobacco dependence of greater than 40 years, FEV1 value of 48% of predicted 4 Chronic obstructive pulmonary disease, Gold stage III, not on inhalers or oxygen in the outpatient setting 5 Moderate to severely impaired left ventricular systolic function with ejection fraction 30-35% 6 Diabetes mellitus 7 Hyperlipidemia 8 Hypertension 9 Recent fall sustaining Charcot joint disease left lower extremity with fractured calcaneus. Currently in a posterior splint. Awaiting a [place] walker 9 Poor overall functional performance based on the above-mentioned multiple comorbidities Plan: The patient was seen and evaluated Chest x-ray and labs reviewed Right-sided thoracentesis performed today with 1.3 L of fluid removed Follow-up chest x-ray revealed significant improvement Plan is for left-sided thoracentesis tomorrow Blood thinners remain on hold Down to 7 L high flow nasal cannula Continue bronchodilators Continue to utilize the incentive spirometer Titrate the FiO2 as tolerated To remain nonweightbearing on the left foot We will continue to follow and make further recommendations based on her clinical status I, the cosigning physician, performed a history & physical examination of the patient. Lungs sounds with crackles in the bilateral bases, right greater than left, diminished. Maintaining good O2 saturations in the 90s on 7 L high flow nasal cannula per nasal cannula. I discussed the assessment and plan of care with my nurse practitioner, Raegan Olivas. I attest to the above note as dictated by her.
[2021-07-21 11:11] LABS: Glucose,Whole Blood 206 mg/dL (75-99)
[2021-07-21 11:25] LABS: Total Protein 5.4 g/dL (6.3-8.2)
--- NOTE | 2021-07-21 11:32 | PN ---
PROGRESS NOTE Ms. Falcon is a 61-year-old female status post coronary artery bypass grafting, history of ischemic cardiomyopathy. She underwent thoracentesis today. She is complaining predominantly of discomfort in the right arm, any attempt to try to start an IV as well as back discomfort. She has no chest discomfort. Her breathing is stable. She denies any dizziness or palpitations. Hemodynamically she is stable. She had no further sinus bradycardia. She continues to be on aspirin once a day, Lipitor 40 mg daily, Plavix 75 mg daily, lisinopril 2.5 mg twice a day and metoprolol tartrate .5 mg twice a day. PHYSICAL EXAMINATION: Blood pressure running in the 130s with a heart rate in the 70s. LUNGS: With decreased breath sounds at bases, improved. HEART: Regular rhythm S1, S2. No S3. No rub appreciated. ABDOMEN: Soft, nontender. EXTREMITIES: Left lower extremity in cast. LAB DATA: Lab data revealed BUN and creatinine 34 and 0.53, potassium 4.4, hemoglobin of 8.7. IMPRESSION: 1. Status post coronary artery bypass grafting, stable. 2. Hypertension and bradycardia, resolved. 3. Ischemic cardiomyopathy. 4. Fracture of the left lower extremity. 5. Status post thoracentesis. 6. History of chronic obstructive lung disease. 7. Diabetes. 8. Hyperlipidemia. 9. Hypertension. RECOMMENDATIONS: I will increase the dose of her beta aixa and follow her blood pressure. If stable, then I will increase the dose of her BECKY inhibitor. I will cut down the dose of her midodrine. Follow her progress and depending on that, further recommendations will be made. MMODL / IJN: [id number] /
[2021-07-21 17:35] LABS: Glucose,Whole Blood 175 mg/dL (75-99)
[2021-07-21 21:26] LABS: Glucose,Whole Blood 199 mg/dL (75-99)
[2021-07-21] MEDS: MELATONIN 3 MG TABLET PO SCH (21:32)
[2021-07-21] MEDS: METOPROLOL TARTRATE 25 MG TAB PO SCH (21:32)
[2021-07-21] MEDS: ACETAMINOPHEN TAB 325 MG TAB PO PRN (21:32)
[2021-07-21] MEDS: SENNOSIDES-DOCUSATE SODIUM 1 EACH TAB PO SCH (21:32)
--- NOTE | 2021-07-21 22:31 | P.PN ---
Subjective Progress Note Date: 07/21/21 Acute non-ST elevation PR Status post cardiac catheterization revealing triple-vessel coronary artery disease Acute hypoxic respiratory failure Acute exacerbation systolic CHF Patient is a 61-year-old female came in the appearance of left-sided chest pain and also shortness of breath and patient the had a cast from her recent for for calcaneal fracture. Patient has EF of around 25-30% only on Aldactone at home it appears to be in a bit of heart failure with bilateral pleural effusion CT of the chest showed some infiltrate but no work program. Patient denied any cough. Patient had any fever chills. Patient is found to have mildly elevated troponin. Please refer to van driver documentation for EKG reading. Patient was evaluated by cardiology and they're recommending catheterization today. 07/11/2021 Patient is seen and evaluated sitting up in bedside chair; denies any complaint of chest pain or shortness of breath but does report feeling anxious about scheduled surgery tomorrow Vital signs are reviewed and remained stable; blood pressure at 122/62 Patient is status post cardiac catheterization which revealed severe triple vessel coronary artery disease; cardiothoracic surgery on board and CABG is planned for tomorrow Patient has been taken off lisinopril given planned surgery tomorrow morning; remains stable on rest of current medications 07/12/2021 Patient is seen and evaluated; denies any complaint of chest pain or shortness of breath; feels anxious and overwhelmed for upcoming surgery this morning Vital signs reveal temperature 98.2, pulse 87, respiration 19 and blood pressure 128/67 with O2 saturation 92% on 2 L Labs revealed WBC 6.2, hemoglobin 10.1, platelet count of 272, blood glucoses ranging between 142-177 Patient is scheduled for OR for CABG 07/13/2021 patient is status post CABG, POD #1, she had triple-vessel urinary artery bypass grafting. Did very well overnight, patient was extubated uneventfully, and at present seems to be doing well. She is only on 2 L nasal cannula, and O2 saturations 97%. Vital signs are reviewed temperature of 99.3, pulse 90, respirations 17 and blood pressure 149/80 Chest x-ray is showing minimal bibasilar opacity/atelectasis. Her indwelling tubes and catheters are unchanged. Clinically the patient is doing great, she is not requiring any inotropes or any pressors. A todd is achieving about 500 mL with her incentive spirometer. WBC count is 7.6 hemoglobin is 8. Her electrolytes are normal 07/14/2021 Patient is seen and evaluated sitting up in a bedside recliner; was successfully extubated yesterday Vital signs are reviewed and remained stable with a temperature of 98.5, pulse 71, respiration 15 and blood pressure of 9659 Thoracic surgery on board recommending to continue with aspirin, statin, Plavix and beta blockers with plans to increase beta aixa therapy as tolerated; patient will be started on low-dose herber for afterload reduction and blood pressure is more stable; continue with amiodarone for prophylactic prevention of atrial fibrillation Continue to increase activity; PT/OT/cardiac rehab 07/15/2021 patient is seen and evaluated in ICU; postoperative day #3; sitting in a recliner, on 2 L nasal cannula, does not seem to be in any distress. Reports fair pain control. She is in sinus rhythm, blood pressure is marginal and her urine output was noted to be a bit on the low side. She did receive a unit of packed RBCs yesterday for hemoglobin of 6.8. She is on a low dose of norepinephrine with minimal improvement in her blood pressure. But no significant improvement noted in urine output. Continues to have left-sided pleural chest tube in place. Lab review shows WBC of 9.0, hemoglobin 9.2, platelets of 135, sodium 136, potassium 3.9, BUN/creatinine of 2019/0.96 Chest x-ray showed mostly atelectasis at the bases, no evidence of congestive heart failure. Continue aspirin statins and Plavix as well as beta blockers; oral amiodarone. Continue pain control 07/16/2021 Patient is seen and evaluated and follow-up continues to be closely monitored in the ICU with multiple medical consultations following. Sugars have been elevated and patient normally takes 70/30 28 units twice daily and will add and continued sliding scale as well. Blood pressure running low and midodrine being increased. Oral amiodarone being discontinued. Chest xray today shows bibasilar opacities right greater than the left component of effusions with atelectasis. Encouraged incentive spirometer at least 10 times every hour while awake. Will be given a dose of lasix. Patient continues with left lower extremity cast and orthopedics consulted. Patient is non-weightbearing and will need continued PT/OT therapy. Social work following as well for possible rehab on discharge. 07/17/2021 Patient is seen in follow-up this morning stating she is not feeling well today. Patient is having some increased nausea and generalized weakness. Patient has zofran as needed and will add IV protonix bid. Blood sugars have been better controlled on current medication regimen and will continue. Patient to have cordis catheter removed. Podiatry consult pending for left lower extremity fracture. Patient continues to report discomfort to this area and temporary cast and herber wraps noted. Patient is currently non-weightbearing to the left lower extremity and unable to work with physical therapy because of the pain and unsteadiness and awaiting recommendations. Patient is more short of breath today and requiring 7L of 02 via NC. Chest ultrasound ordered. 07/18/2021 Patient is seen and evaluated in the ICU and is being closely monitored. Patient continues on 5L via NC and states that her oxygen saturations have been low and she denies any worsening shortness of breath. Patient is sitting up in the chair and currently receiving a breathing treatment. Patient does have history of COPD and states that she does not use inhalers or nebulizers for this. Patient denies oxygen use in the outpatient setting. Patient given IV lasix today. Patient does have incentive spirometer at the bedside and strongly encouraged to continue using at least 10 times every hour while awake. Blood sugars on the lower side and patient states she is eating and denies any further nausea today. 07/19/2021 Patient is evaluated this morning and continues to be closely monitored in the ICU. Patient is having increasing shortness of breath and has received another dose of IV Lasix as chest x-ray shows cardiomegaly with central vascular congestion and small to moderate size greater than left pleural effusions and associated basilar compressive atelectasis on the background chronic parenchymal changes are redemonstrated with no significant change from previous day. Patient is currently maintained on BiPAP at 50% and intermittently using high flow cannula at 15 L. Patient also experienced some atrial fibrillation with RVR and cardiology following closely. Patient is maintained on IV amiodarone along with metoprolol. 07/20/2021 Patient is seen and evaluated this morning in the ICU being closely monitored with multiple medical consultations including CT surgery, cardiology, pulmonary retort fireman, and orthopedics evaluated the patient. Patient Does have a history of a fracture of the left calcaneus and Dr. Carrillo evaluated the patient. Patient has been followed in the outpatient setting for management of a Charcot joint disease and fracture of the left calcaneus and is currently maintained on a posterior splint and was awaiting a walker boot for the left lower extremity. She is to continue nonweightbearing of that left lower extremity and will follow with PT/OT therapy. She continues with low oxygen saturations and currently maintained on 15 L high flow and titrating as tolerated. Patient denies any worsening shortness of breath. Patient was also continued on breathing inhalational treatments and Mucomyst. Patient was also continued on NovoLog 70/30 at 25 units twice a day and continues to have low blood sugar readings in the mornings and will discontinue and continue just sliding scale. Patient not eating very much. Encouraged oral intake. 07/21/2021 Patient is seen in follow-up this morning continues to be in the ICU with multiple medical consultations following. Patient underwent thoracentesis this morning with approximately 1.5 L removed and fluid was sent for analysis by pulmonary services. She continues on 15 L high flow with oxygen saturations above 90%. Encouraged incentive spirometer at least 10 times every hour while awake. Encouraged increased activity with continued non-weightbearing of that left lower extremity. Blood sugars mildly elevated in the 180's-200s and will continue with sliding scale. Encouraged oral intake. Labs: WBC is 6.6, hemoglobin is 8.7, platelets are 311, sodium is 135, potassium is 4.4, BUN is 34, creatinine is 0.53, calcium is 8.0 Review of systems: Constitutional: reports of fatigue, no reports of fever, or chills Cardiovascular: No reports of chest pain or palpitations Respiratory: no reports of worsening shortness of breath, feels somewhat improv ed after thoracentesis GI: No reports of nausea, vomiting, or diarrhea : No reports of dysuria or retention Neurovascular: reports of generalized weakness, left lower extremity pain All medications have been reviewed Active Medications Acetaminophen (Acetaminophen Tab 325 Mg Tab) 650 mg PO Q4HR PRN PRN Reason: Fever and/ or Pain Last Admin: 07/21/21 21:32 Dose: 650 mg Documented by: Hydrocodone Bitart/Acetaminophen (Hydrocodone/Apap 10-325mg 1 Each Tab) 1 each PO Q6HR PRN PRN Reason: Pain Last Admin: 07/21/21 17:31 Dose: 1 each Documented by: Acetylcysteine (Acetylcysteine 800 Mg/4 Ml Vial) 200 mg INHALATION RT-QID [facility] Last Admin: 07/21/21 19:45 Dose: Not Given Documented by: Albuterol/Ipratropium (Ipratropium-Albuterol 3 Ml Neb) 3 ml INHALATION RT-Q2H PRN PRN Reason: Shortness Of Breath Or Wheezing Albuterol/Ipratropium (Ipratropium-Albuterol 3 Ml Neb) 3 ml INHALATION RT-QID [facility] Last Admin: 07/21/21 19:45 Dose: Not Given Documented by: Aspirin (Aspirin 325 Mg Tab) 325 mg PO DAILY [facility] Last Admin: 07/21/21 09:35 Dose: 325 mg Documented by: Atorvastatin Calcium (Atorvastatin 40 Mg Tab) 40 mg PO DAILY [facility] Last Admin: 07/21/21 09:35 Dose: 40 mg Documented by: Bisacodyl (Bisacodyl 10 Mg Supp) 10 mg RECTAL DAILY PRN PRN Reason: Constipation Budesonide/Formoterol Fumarate (Symbicort 160-4.5 Mcg Inhaler) 2 puff INHALAT ION RT-BID [facility] Last Admin: 07/21/21 19:46 Dose: Not Given Documented by: Clopidogrel Bisulfate (Clopidogrel 75 Mg Tab) 75 mg PO DAILY [facility] Last Admin: 07/21/21 10:58 Dose: Not Given Documented by: Duloxetine HCl (Duloxetine Hcl 30 Mg Capsule.Dr) 30 mg PO DAILY [facility] Last Admin: 07/21/21 09:46 Dose: 30 mg Documented by: Gabapentin (Gabapentin 100 Mg Cap) 100 mg PO DAILY [facility] Last Admin: 07/21/21 21:32 Dose: 100 mg Documented by: Gabapentin (Gabapentin 100 Mg Cap) 100 mg PO HS [facility] Last Admin: 07/21/21 21:34 Dose: 100 mg Documented by: Heparin Sodium (Porcine) (Heparin Sodium,Porcine/Pf 5,000 Unit/0.5 Ml Syringe) 5,000 unit SQ Q8HR [facility] Last Admin: 07/21/21 16:05 Dose: Not Given Documented by: Amiodarone HCl 150 mg/ (Dextrose/Water) 103 mls @ 618 mls/hr IV .Q10M PRN; Protocol PRN Reason: A.FIB/FLUTTER Last Admin: 07/19/21 08:30 Dose: 618 mls/hr Documented by: Amiodarone HCl 360 mg/ (Dextrose/Water) 207.2 mls @ 34.533 mls/hr IV .Q6H PRN; Protocol PRN Reason: A.FIB/FLUTTER Amiodarone HCl 450 mg/ (Dextrose/Water) 250 mls @ 16.667 mls/hr IV .Q15H PRN; Protocol PRN Reason: A.FIB/FLUTTER Insulin Aspart (Insulin Aspart (Novolog) 100 Unit/Ml Vial) 0 unit SQ ACHS [facility]; Protocol Last Admin: 07/21/21 21:33 Dose: 2 unit Documented by: Lisinopril (Lisinopril 2.5 Mg Tab) 2.5 mg PO BID [facility] Last Admin: 07/21/21 21:32 Dose: 2.5 mg Documented by: Magnesium Hydroxide (Magnesium Hydroxide 2,400 Mg/10 Ml Cup) 2,400 mg PO BID PRN PRN Reason: Constipation Last Admin: 07/16/21 14:34 Dose: 2,400 mg Documented by: Melatonin (Melatonin 3 Mg Tablet) 6 mg PO HS [facility] Last Admin: 07/21/21 21:32 Dose: 6 mg Documented by: Metoclopramide HCl (Metoclopramide 5 Mg/Ml 2 Ml Vial) 10 mg IVP Q4H PRN PRN Reason: Nausea And Vomiting Last Admin: 07/17/21 13:01 Dose: 10 mg Documented by: Metoprolol Tartrate (Metoprolol Tartrate 25 Mg Tab) 25 mg PO BID [facility] Last Admin: 07/21/21 21:32 Dose: 25 mg Documented by: Midodrine (Midodrine 5 Mg Tab) 5 mg PO AC-TID [facility] Last Admin: 07/21/21 17:31 Dose: 5 mg Documented by: Miscellaneous Information (Potassium Replacement Protocol 1 Each Misc) 1 each MISCELLANE DAILY PRN; Protocol PRN Reason: Per Protocol Miscellaneous Information (Magnesium Replacement Protocol 1 Each Misc) 1 each MISCELLANE DAILY PRN; Protocol PRN Reason: Per Protocol Miscellaneous Information (Phosphorus Replacement Protoco 1 Each Misc) 1 each MISCELLANE DAILY PRN; Protocol PRN Reason: Per Protocol Ondansetron HCl (Ondansetron 4 Mg/2 Ml Vial) 4 mg IVP Q6HR PRN PRN Reason: Nausea And Vomiting Pantoprazole Sodium (Pantoprazole 40 Mg/10 Ml Vial) 40 mg IVP BID [facility] Last Admin: 07/21/21 21:33 Dose: 40 mg Documented by: Senna/Docusate Sodium (Sennosides-Docusate Sodium 1 Each Tab) 2 each PO HS [facility] Last Admin: 07/21/21 21:32 Dose: 2 each Documented by: Sodium Chloride (Sodium Chloride 0.9% Flush 10 Ml Syringe) 10 ml IV BID [facility] Last Admin: 07/21/21 21:34 Dose: 10 ml Documented by: Physical exam: Gen: This is a 61-year-old female awake, alert and oriented 3, well-developed, well-nourished. Temp is 98 F, pulse is 69, respirations are 17, blood pressure arterial is 116/60, oxygen saturation is 94 % on 15 L high flow nasal cannula HEENT: Head is atraumatic, normocephalic. Pupils equal, round. Sclerae is anicteric. NECK: Supple. No JVD. No lymphadenopathy. No thyromegaly. LUNGS: diminished breath sounds bilaterally with No wheezes and some scattered rhonchi and crackles noted. No intercostal retractions. HEART: S1, S2 muffled. ABDOMEN: Soft. Bowel sounds are present. No masses. No tenderness. EXTREMITIES: No pedal edema. No calf tenderness. NEUROLOGICAL: Patient is awake, alert and oriented x3. Cranial nerves 2 through 12 are grossly intact. diffusely weak Assessment: -Acute non-ST elevation myocardial infarction: Patient is status post cardiac catheterization triple-vessel disease CABG -Acute hypoxic respiratory failure secondary to congestive heart failure chronic systolic dysfunction with acute exacerbation -Status post thoracentesis for right pleural effusion today -Continued ongoing Nicotine use: Counseling was provided -COPD, not in acute exacerbation -Type 2 diabetes mellitus, uncontrolled with hyperglycemia and hypoglycemia -Hyperlipidemia -hypervolemic hyponatremia -hypertension, currently hypotensive -Charcot's foot disease with left calcaneus fracture status post fall with partial casting and was being followed with Dr. Carrillo in the outpatient setting awaiting specialty boot -GI prophylaxis -DVT prophylaxis -Full code Plan: Recommend to continue with current medications and management. Patient being followed closely by CT surgery along with cardiology and pulmonary. Orthopedics following as well and awaiting specialty boot for Charcot's foot with calcaneus fracture of the left side. Blood sugars are slightly elevated and NovoLog 70/30 was discontinued and we'll continue sliding scale and Accu-Cheks before meals and at bedtime. Encouraged increase oral intake and will resume home medications once oral intake is increased. Patient encouraged continued incentive spirometer use and increase exercise as tolerated. Patient will work with physical therapy and continue with left lower extremity non-weightbearing. Will repeat am labs and continue to monitor closely. Continue to wean FI02 as tolerated. Patient is status post thoracentesis on the right side pleural effusion with pulmonary today and approx 1.5 L removed and sent for analysis. Recommend to continue with breathing inhalational treatments. Covid 19 testing negative. Due to multiple complex medical issues, prognosis is guarded. Objective - Vital Signs Vital signs: Vital Signs Temp 98 F 07/21/21 04:00 Pulse 68 07/21/21 07:00 Resp 20 07/21/21 07:00 BP 122/71 07/21/21 07:00 Pulse Ox 95 07/21/21 07:00 Intake & Output 07/20/21 07/21/21 07/21/21 18:59 06:59 18:59 Intake Total 740 720 Output Total 0 500 Balance 740 220 Weight 65.4 kg Intake: Oral 740 720 Output: Urine 0 500 Other: Voiding Method Diaper Diaper # Voids 1 0 1 ABP, PAP, CO, CI - Last Documented Arterial Blood Pressure 68/53 Pulmonary Artery Pressure 26/10 Cardiac Output 4.3 Cardiac Index 2.8 - Labs CBC & Chem 7: 07/21/21 03:13 07/21/21 03:13 Labs: Abnormal Lab Results - Last 24 Hours (Table) 07/20/21 07/20/21 07/20/21 Range/Units 11:20 16:40 20:30 RBC (3.80-5.40) m/uL Hgb (11.4-16.0) gm/dL Hct (34.0-46.0) % RDW (11.5-15.5) % Eosinophils # (0-0.7) k/uL Sodium (137-145) mmol/L BUN (7-17) mg/dL Glucose (74-99) mg/dL POC Glucose (mg/dL) 146 H 173 H 148 H (75-99) mg/dL Calcium (8.4-10.2) mg/dL 07/21/21 07/21/21 07/21/21 Range/Units 03:13 03:13 06:35 RBC 2.94 L (3.80-5.40) m/uL Hgb 8.7 L (11.4-16.0) gm/dL Hct 28.1 L (34.0-46.0) % RDW 16.6 H (11.5-15.5) % Eosinophils # 1.0 H (0-0.7) k/uL Sodium 135 L (137-145) mmol/L BUN 34 H (7-17) mg/dL Glucose 154 H (74-99) mg/dL POC Glucose (mg/dL) 155 H (75-99) mg/dL Calcium 8.0 L (8.4-10.2) mg/dL
[2021-07-22] MEDS: HEPARIN SODIUM,PORCINE/PF 5,000 UNIT/0.5 ML SYRINGE SQ SCH ×5 (00:04→23:41)
[2021-07-22] MEDS: HYDROcodone/APAP 10-325MG 1 EACH TAB PO PRN ×5 (00:04→23:59)
[2021-07-22 03:10] LABS: Appearance,BF Hazy; Nucleated Cells, Body Fluid 55 /uL; RBC, Body Fluid 4130 /uL
[2021-07-22 03:27] LABS: Mononuclear WBC,Body Fluid 85 %; Polynuclear WBC,Body Fluid 11 %; Total Cells Counted,Body Fluid 100
[2021-07-22 03:59] LABS: Anisocytosis Slight; Basophils % (A) 0 %; Eosinophils # (A) 0.9 k/uL (0-0.7); Eosinophils % (A) 16 %; HCT 28.3 % (34.0-46.0); HGB 8.6 gm/dL (11.4-16.0); Hypochromasia Moderate; Lymphocytes # (A) 1.2 k/uL (1.0-4.8); Lymphocytes % (A) 23 %; MCH 29.2 pg (25.0-35.0); MCHC 30.4 g/dL (31.0-37.0); MCV 96.2 fL (80.0-100.0); Mean Platelet Volume 7.9; Monocytes # (A) 0.4 k/uL (0-1.0); Monocytes % (A) 7 %; Neutrophils # (A) 2.8 k/uL (1.3-7.7); Neutrophils % (A) 52 %; Platelet Count 306 k/uL (150-450); RBC 2.94 m/uL (3.80-5.40); RDW 16.5 % (11.5-15.5); WBC 5.4 k/uL (3.8-10.6)
[2021-07-22 04:12] LABS: ALT 9 U/L (4-34); AST 13 U/L (14-36); African American GFR (CKD) >90 (>60 ml/min/1.73 sqM); Albumin 2.4 g/dL (3.5-5.0); Alkaline Phosphatase 68 U/L (38-126); Anion Gap 5 mmol/L; Blood Urea Nitrogen 27 mg/dL (7-17); Calcium 7.9 mg/dL (8.4-10.2); Carbon Dioxide 31 mmol/L (22-30); Chloride 98 mmol/L (98-107); Glucose 141 mg/dL (74-99); Non-African American GFR(CKD) >90 (>60 ml/min/1.73 sqM); Potassium 4.2 mmol/L (3.5-5.1); Sodium 134 mmol/L (137-145); Total Bilirubin 0.5 mg/dL (0.2-1.3); Total Protein 5.2 g/dL (6.3-8.2)
[2021-07-22] MEDS: INSULIN ASPART (NovoLOG) 100 UNIT/ML VIAL SQ SCH ×4 (06:34→21:05)
[2021-07-22] MEDS: MIDODRINE 5 MG TAB PO SCH (06:35)
--- NOTE | 2021-07-22 06:56 | XR ---
EXAMINATION TYPE: XR chest 1V portable DATE OF EXAM: 07/22/2021 COMPARISON: 07/21/2021 HISTORY: Shortness of breath TECHNIQUE: Single frontal view of the chest is obtained. FINDINGS: Status post cardiac surgery with median sternotomy wires. There is a retrocardiac opacity unchanged most likely reflecting atelectasis and pleural effusion. There is a small right pleural eff usion which has decreased in size in the interval. There is diffuse partially consolidative opacity in the mid lower lung zones which has worsened in th e interval since prior study. There is no pneumothorax. The heart size is normal. IMPRESSION: Moderate interval worsening in the diffuse bilateral infiltrates. No change in the small to moderate left pleural effusion. Decreased small right pleural effusion.
[2021-07-22] MEDS: SYMBICORT 160-4.5 MCG INHALER INHALATION SCH ×2 (07:50→18:21)
[2021-07-22] MEDS: ACETYLCYSTEINE 800 MG/4 ML VIAL INHALATION SCH ×4 (07:50→18:20)
[2021-07-22] MEDS: IPRATROPIUM-ALBUTEROL 3 ML NEB INHALATION SCH ×4 (07:50→18:21)
[2021-07-22] MEDS ORDERED: FUROSEMIDE 10 MG/ML 4 ML VIAL IV STA (08:41)
[2021-07-22] MEDS ORDERED: POTASSIUM CHLORIDE ER 20 MEQ TAB.ER PO STA (08:43)
--- NOTE | 2021-07-22 08:55 | P.PN ---
Subjective Progress Note Date: 07/22/21 Principal diagnosis: Multivessel coronary artery disease, non-ST elevated myocardial infarction this admission, acute on chronic systolic heart failure, bilateral pneumonia with pl eural effusions this admission. Past medical history significant for cardiomopathy, hypertension, hyperlipidemia, uncontrolled insulin-dependent diabetes mellitus with hyperglycemia and an admission glucose of 420, osteoarthritis, insomnia, degenerative disc disease, pneumonia, C. difficile, depression, fibromyalgia, chronic pain syndrome, current ongoing tobacco abuse, COPD, recent fall from standing with broken foot with non-weight bearing status, recent accidental overdose according to the patient, preoperative normocytic normochromic anemia. POD #10 triple vessel coronary artery bypass grafting using the left internal mammary artery sequentially in a [id number] fashion to the mid left anterior descending artery, then in an end to side fashion to the distal left anterior descending artery, reverse saphenous vein graft from the aorta to the first obtuse marginal artery, reverse saphenous vein graft from the aorta to the right coronary artery after the takeoff of the early arising posterior descending artery, exclusion of the left atrial appendage using a 35 mm AtriClip, sternal plating using the [place] system, harvesting of the right greater saphenous vein from the groin to above the ankle level, intraoperative transesophageal echocardiogram and epi-aortic scanning, intraoperative graft flow measurements using the [employer] system Postoperative acute blood loss anemia and thrombocytopenia, expected outcomes given cardiopulmonary bypass pump and hemodilution as well as her preoperative anemia. Paroxysmal atrial fibrillation, a known common occurrence after cardiac surgery. Bilateral pleural effusions, status post right-sided thoracentesis with 1.3 L of pleural fluid drained on 07/21/2021. The patient was seen in follow-up today 07/22/2021 at her bedside in the intensive care unit. Currently she is laying in bed, is awake, alert, oriented 3 and is in no acute apparent distress. Denies any complaints of shortness of breath at this time, although is complaining of some generalized pain and discomfort. She reports her pain has been well controlled on her current pain medication regimen. Oxygen saturations are 96% on 8 L high flow nasal cannula and she is achieving 1000 mL on her incentive spirometry with encouragement. Dr. Ritter from pulmonary for/critical care medicine performed a bedside right thoracentesis yesterday 07/21/2021 with 1.3 L of pleural fluid drained. She also underwent a left-sided thoracentesis this morning performed by Dr. Ritter with 900 mL of serous colored pleural fluid drained. Her atrial epicardial pacemaker wires were removed without incident this morning and she has been on bed rest for 1 hour post pacemaker wire removal. Bedside telemetry showing normal sinus rhythm heart rate 70 bpm. No further episodes of atrial fibrillation reported. She remained afebrile the last 24 hours. According to her bedside nurse she refused physical therapy yesterday, had a long discussion with the patient this morning regarding how important physical therapy is with the patient. She remains on a nonweightbearing status to her left foot. Objective - Vital Signs Vital signs: Vital Signs Temp 98.3 F 07/22/21 04:00 Pulse 71 07/22/21 08:02 Resp 15 07/22/21 07:00 BP 126/86 07/22/21 07:00 Pulse Ox 95 07/22/21 07:52 Intake & Output 07/21/21 07/22/21 07/22/21 18:59 06:59 18:59 Intake Total 720 Output Total 550 600 0 Balance -550 120 0 Weight 62.4 kg Intake: Oral 720 Output: Urine 550 600 0 Other: Voiding Method Diaper Diaper Diaper # Voids 1 ABP, PAP, CO, CI - Last Documented Arterial Blood Pressure 68/53 Pulmonary Artery Pressure 26/10 Cardiac Output 4.3 Cardiac Index 2.8 - Exam CONSTITUTIONAL: Sitting up in bed in the intensive care unit, appears comfortable, cooperative, no apparent acute distress. HEENT: Neck is supple, no JVD, no lymphadenopathy. RESPIRATORY: Lungs sounds diminished throughout. Respirations are symmetrical and nonlabored. Currently on 8 L high flow nasal cannula with oxygen saturations 96%. Able to achieve 1000 mL on her incentive spirometry. Strong cough. CARDIOVASCULAR: Regular rhythm and rate. S1 and S2 present, negative for S3, gallop or murmur. Sternum is stable. Palpable peripheral pulses bilaterally, +1 edema to his bilateral lower extremities. No calf pain or tenderness noted. Heart hugger in place with patient demonstrating appropriate use. Knee-high CHIO hose and sequential compression devices in place to her right lower extremity. GASTROINTESTINAL: Abdomen soft, nontender, nondistended. Active bowel sounds present 4 quadrants. Tolerating diet. Passing flatus. No guarding or rigidity. GENITOURINARY: Continues to void. Episodes of incontinence. 600 mL urine output in the last 8 hours. INTEGUMENTARY: Skin is warm and dry with no evidence of clubbing or cyanosis. Midline sternal incision clean dry and well approximated, covered with dry intact dressing. Right lower extremity EVH site well approximated without redness or drainage. NEUROLOGIC: Cranial nerves II through XII intact. No focal deficits. MUSKULOSKELETAL: Able to move all extremities, strength equal bilaterally, generalized weakness, continues to have non-weightbearing status to her left foot. PSYCHIATRIC: Alert and oriented to person place and time, appropriate affect, intact judgment and insight. - Allied health notes Allied health notes reviewed: nursing - Labs CBC & Chem 7: 07/22/21 03:21 07/22/21 03:21 Labs: Abnormal Lab Results - Last 24 Hours (Table) 07/21/21 07/21/21 07/21/21 Range/Units 03:15 11:10 17:33 RBC (3.80-5.40) m/uL Hgb (11.4-16.0) gm/dL Hct (34.0-46.0) % MCHC (31.0-37.0) g/dL RDW (11.5-15.5) % Eosinophils # (0-0.7) k/uL Sodium (137-145) mmol/L Carbon Dioxide (22-30) mmol/L BUN (7-17) mg/dL Glucose (74-99) mg/dL POC Glucose (mg/dL) 206 H 175 H (75-99) mg/dL Calcium (8.4-10.2) mg/dL AST (14-36) U/L Lactate Dehydrogenase 652 H (313-618) U/L Total Protein 5.4 L (6.3-8.2) g/dL Albumin (3.5-5.0) g/dL 07/21/21 07/22/21 07/22/21 Range/Units 21:24 03:21 03:21 RBC 2.94 L (3.80-5.40) m/uL Hgb 8.6 L (11.4-16.0) gm/dL Hct 28.3 L (34.0-46.0) % MCHC 30.4 L (31.0-37.0) g/dL RDW 16.5 H (11.5-15.5) % Eosinophils # 0.9 H (0-0.7) k/uL Sodium 134 L (137-145) mmol/L Carbon Dioxide 31 H (22-30) mmol/L BUN 27 H (7-17) mg/dL Glucose 141 H (74-99) mg/dL POC Glucose (mg/dL) 199 H (75-99) mg/dL Calcium 7.9 L (8.4-10.2) mg/dL AST 13 L (14-36) U/L Lactate Dehydrogenase (313-618) U/L Total Protein 5.2 L (6.3-8.2) g/dL Albumin 2.4 L (3.5-5.0) g/dL - Imaging and Cardiology Chest x-ray: report reviewed, image reviewed Assessment and Plan Assessment: 1. Multivessel coronary artery disease, non-ST elevated myocardial infarction this admission, status post three-vessel CABG 2. Acute on chronic systolic heart failure, EF 30-35% 3. Bilateral pneumonia with pleural effusions this admission 4. History of cardiomopathy 5. Hypertension 6. Hyperlipidemia, treated, cholesterol 128, LDL 60 7. Uncontrolled insulin-dependent diabetes mellitus with hyperglycemia, hemoglobin AIc 10.2% 8. Current chronic ongoing tobacco abuse 9. Severe COPD with preoperative FEV1 48% of predicted 10. Recent fall from standing with broken left foot with non-weight bearing status 11. History of C. difficile 12. Depression 13. Fibromyalgia, chronic pain syndrome, osteoarthritis 14. Recent accidental overdose according to the patient 15. Preoperative normocytic, normochromic anemia, postoperative acute blood loss anemia and thrombocytopenia, expected 16. Continuing hypotension on low-dose pressors, expected, resolved off pressors 17. Paroxysmal atrial fibrillation, a known common occurrence after cardiac surgery 18. Bilateral pleural effusions, status post a right thoracentesis on 07/21/20 21 and a left thoracentesis today 07/22/2021 Plan: 1. Continue aspirin, statin, Plavix, and beta aixa with hold parameters. Metoprolol tartrate has been increased to 25 mg by mouth twice a day by cardiology. 2. Midodrine has been decreased to 5 mg by mouth 3 times a day by cardiology. 3. Wean O2 as tolerated. Encourage incentive spirometry use 10 times every hour while awake. Bronchodilators per pulmonology. 4. Increase activity as tolerated. PT/OT/cardiac rehab following. Patient will need rehab at discharge due to challenging ambulation with cast and non- weightbearing status to her left foot, plan is for [facility]. 5. Will monitor daily labs and chest x-rays. Electrolyte replacement per protocol. No further transfusion. 6. Pain control with current medication regimen which is home regiment. 7. Insulin management per primary care service. Patient is an uncontrolled diabetic with preoperative hemoglobin A1c 10.2%. Patient will need tight blood sugar control to prevent infection and promote sternal healing. 8. Patient continues to void, may bladder scan and straight cath for >300 mL residual. Having episodes of incontinence. 9. Continue to record strict accurate intake and output. Daily weights 10. Dr. Carrillo wants patient to remain completely non-weight bearing to left leg. 11. Atrial epicardial pacemaker wires have been removed without incident. 12. Albumin 25% 50 mL IV piggyback 1 now followed by Lasix 40 mg IV 1 now and potassium chloride 20 mg by mouth 1 now. Then Lasix 40 mg IV 1 at 4 PM today. 13. Continue Low-dose lisinopril 2.5 mg by mouth twice a day for afterload reduction. 14. She is scheduled for a left-sided thoracentesis tomorrow to be performed by Dr. Charanjit Ritter. 15. Discharge planning is in place, anticipate discharge to [facility] within the next 24-48 hours. 16. More recommendations to follow based on patient's clinical course. Time with Patient: Greater than 30
[2021-07-22] MEDS ORDERED: ALBUMIN HUMAN 25% 50 ML in EMPTY BAG 1 BAG IVPB ONE (09:00)
--- NOTE | 2021-07-22 09:08 | XR ---
EXAMINATION TYPE: XR chest 1V DATE OF EXAM: 07/22/2021 COMPARISON: 07/22/2021 HISTORY: Shortness of breath TECHNIQUE: Single frontal view of the chest is obtained. FINDINGS: There is diffuse interstitial density in the right lung with partial consolidation in the right lung base essentially unchanged compared to previous. Hazy density in the left lung is less phan arent compared to previous and likely represented layering fluid posteriorly which now is seen as a s mall left pleural effusion. There is no pneumothorax. There is prior CABG surgery. The osseous structures are intact. IMPRESSION: 1. No change in the mild diffuse interstitial edema. 2. No change in right lower lobe opacity. 3. Small left pleural effusion.
[2021-07-22] MEDS: ASPIRIN 325 MG TAB PO SCH (10:29)
[2021-07-22] MEDS: PANTOPRAZOLE 40 MG/10 ML VIAL IVP SCH ×2 (10:29→21:06)
[2021-07-22] MEDS: ATORVASTATIN 40 MG TAB PO SCH (10:29)
[2021-07-22] MEDS: CLOPIDOGREL 75 MG TAB PO SCH (10:29)
[2021-07-22] MEDS: GABAPENTIN 100 MG CAP PO SCH ×2 (10:29→21:05)
[2021-07-22] MEDS: METOPROLOL TARTRATE 25 MG TAB PO SCH ×2 (10:29→21:05)
[2021-07-22] MEDS: DULoxetine HCL 30 MG CAPSULE.DR PO SCH (10:31)
--- NOTE | 2021-07-22 11:00 | PCN ---
PROCEDURE NOTE PULMONARY/CRITICAL CARE PROCEDURE NOTE: Left thoracentesis. PREOPERATIVE DIAGNOSIS: Left pleural effusion. POSTOPERATIVE DIAGNOSIS: Left pleural effusion. ASSOCIATE SOFTWARE DEVELOPMENT ENGINEER: Dr. Ritter. PROCEDURE DESCRIPTION: There was informed consent. A universal time-out was completed verifying correct patient, procedure, site, positioning , and implant (s) or special equipment if applicable. Ultrasound guidance was used to triston the chest, and appropriate fluid pocket was identified and marked. Patient was positioned, prepped and draped in usual sterile fashion. Lidocaine was used to anesthetize the area. A thoracentesis catheter was introduced into the pleural space and fluid was removed. Blood loss was none. The patient tolerated the procedure very well without any complication. The fluid will not be sent for analysis. A chest x-ray was ordered to rule out pneumothorax. Total Fluid Removed: 900 mL Color of Fluid: Yellow MMODL / IJN: [id number] /
--- NOTE | 2021-07-22 11:03 | P.PN ---
Subjective Progress Note Date: 07/22/21 Principal diagnosis: Multivessel coronary artery disease, non-ST elevated myocardial infarction, three-vessel coronary artery bypass grafting On 07/16/2021 patient seen in follow-up in the intensive care unit, she is awake and alert, she sits up in a recliner, currently on 4 L of oxygen, breathing comfortably, her sat is 90-92%, her vital signs have been stable, she's been afebrile. Her chest x-ray has been reviewed showing median sternotomy with postoperative clips in the mediastinum, increasing bibasilar opacities right greater than left with the likely combination of pleural effusions and adjacent atelectasis and/or consolidation. Patient is currently on IV fluids at 30 ML per hour with 0.9 normal saline, and levothyroid is currently at 1 mono per minute. Patient denies any shortness of breath, she does complain of left lower extremity. She is in sinus mechanism, with a rate in the 50s. Blood pressures have been marginal, and she is requiring low-dose norepi nephrine, and she continues on midodrine for blood pressure support. Chest tubes have been removed. Today's labs have been reviewed, orbital, is 9.6, hemoglobin is 8.9, platelet is 172, sodium is 133, potassium is 4.5, chloride is 105, B1 is 39, creatinine is 1.2. On 07/17/2021 patient seen in follow-up in the intensive care unit. Today she is on 9 L of oxygen, pulse ox is 93%, she had desaturated earlier on 4 L of oxygen and her pulse ox was around 86%. Today's chest x-ray shows stable dif fuse bilateral infiltrates and pleural effusion. Yesterday patient was given IV Lasix per CT surgery, however she only produced 360 mL of urine output in the last 24 hours. Today's labs have been reviewed, creatinine is improving and is down to 1.08, BUN is 42, electrolytes are within normal limits, white blood cell count is 7.2, hemoglobin is 8.7, platelet count is 175. Patient was hypotensive earlier with Artline pressure 63/55, and she is on levo fed at 0.5 mics per minute, she is on 0.9 normal saline area to 20 ML per hour. She will receive 25 g of 25% albumin per CT surgery which will be followed by a dose of Lasix 40 mg. Clinically patient denies worsening shortness of breath although her oxygen needs are increased. She remains in sinus mechanism with a rate in the low 60s. She continues on midodrine at 10 mg 3 times daily, urine output is very marginal. On 07/22/2021 patient seen in follow-up in intensive care unit, today is postoperative day #10 status post triple coronary artery bypass grafting, occlusion of the left atrial appendage, his sternal plating using the [employer]itium system. Yesterday she underwent right-sided thoracentesis by Dr. Ritter, and a total of 1.3 L of fluid was removed which was sent for analysis, cytology, microbiology and chemistry. Today she had left-sided thoracentesis with removal of 900 mL of pleural fluid. Chest x-ray after the procedure shows no change in mild diffuse interstitial edema, right lower lobe opacity, and small left pleural effusion. Clinically she states she is breathing much easier, she is currently down to 8 L of oxygen pulse ox is 95%, which was further decreased to 6 L. She is in sinus mechanism with a rate of 75 BPM, blood pressure stable 132/73. She did not use BiPAP support last night. Her chest tubes have been discontinued, incisions are clean dry and intact. Her blood work from today shows a white blood cell count of 5.4, hemoglobin of 8.6, sodium was 134, potassium is 4.2, chloride was 98, CO2 31, B1 is 27 creatinine 0.5. Lung sounds revealed bibasilar crackles, patient has been encouraged to work on her incentive spirometer. She is achieving 1 L on the today. She has not had recur rence of atrial fibrillation in the last 24 hours. She has been nonweightbearing on her left leg in the left leg remains in the splint. She has been participating with physical therapy. Objective - Vital Signs Vital signs: Vital Signs Temp 98.2 F 07/22/21 08:00 Pulse 76 07/22/21 10:00 Resp 18 07/22/21 08:00 BP 132/73 07/22/21 10:00 Pulse Ox 93 L 07/22/21 10:00 Intake & Output 07/21/21 07/22/21 07/22/21 18:59 06:59 18:59 Intake Total 720 Output Total 550 600 0 Balance -550 120 0 Weight 62.4 kg Intake: Oral 720 Output: Urine 550 600 0 Other: Voiding Method Diaper Diaper Diaper # Voids 1 ABP, PAP, CO, CI - Last Documented Arterial Blood Pressure 68/53 Pulmonary Artery Pressure 26/10 Cardiac Output 4.3 Cardiac Index 2.8 - Exam GENERAL EXAM: Alert, pleasant, 61-year-old white female, sitting up in the recliner, currently on 8 L of oxygen with a pulse ox of 95%, comfortable in no apparent distress. HEAD: Normocephalic/atraumatic. EYES: Normal reaction of pupils, equal size. Conjunctiva pink, sclera white. NOSE: Clear with pink turbinates. THROAT: No erythema or exudates. NECK: No masses, no JVD, no thyroid enlargement, no adenopathy. CHEST: No chest wall deformity. Symmetrical expansion. Midsternal incision is clean dry and intact, chest tube sites are clean dry and intact, interval removal of chest tubes, LUNGS: Equal air entry with no crackles, wheeze, rhonchi or dullness. CVS: Regular rate and rhythm, normal S1 and S2, no gallops, no murmurs, no rubs ABDOMEN: Soft, nontender. No hepatosplenomegaly, normal bowel sounds, no guarding or rigidity. EXTREMITIES: No clubbing, no edema, no cyanosis, 2+ pulses and upper and lower extremities. Left lower extremity incision is covered with surgical dressing, SCDs on bilateral legs MUSCULOSKELETAL: Muscle strength and tone normal. SPINE: No scoliosis or deformity SKIN: No rashes CENTRAL NERVOUS SYSTEM: Alert and oriented -3. No focal deficits, tone is normal in all 4 extremities. PSYCHIATRIC: Alert and oriented -3. Appropriate affect. Intact judgment and insight. - Labs CBC & Chem 7: 07/22/21 03:21 07/22/21 03:21 Labs: Abnormal Lab Results - Last 24 Hours (Table) 07/21/21 07/21/21 07/21/21 Range/Units 03:15 11:10 17:33 RBC (3.80-5.40) m/uL Hgb (11.4-16.0) gm/dL Hct (34.0-46.0) % MCHC (31.0-37.0) g/dL RDW (11.5-15.5) % Eosinophils # (0-0.7) k/uL Sodium (137-145) mmol/L Carbon Dioxide (22-30) mmol/L BUN (7-17) mg/dL Glucose (74-99) mg/dL POC Glucose (mg/dL) 206 H 175 H (75-99) mg/dL Calcium (8.4-10.2) mg/dL AST (14-36) U/L Lactate Dehydrogenase 652 H (313-618) U/L Total Protein 5.4 L (6.3-8.2) g/dL Albumin (3.5-5.0) g/dL 07/21/21 07/22/21 07/22/21 Range/Units 21:24 03:21 03:21 RBC 2.94 L (3.80-5.40) m/uL Hgb 8.6 L (11.4-16.0) gm/dL Hct 28.3 L (34.0-46.0) % MCHC 30.4 L (31.0-37.0) g/dL RDW 16.5 H (11.5-15.5) % Eosinophils # 0.9 H (0-0.7) k/uL Sodium 134 L (137-145) mmol/L Carbon Dioxide 31 H (22-30) mmol/L BUN 27 H (7-17) mg/dL Glucose 141 H (74-99) mg/dL POC Glucose (mg/dL) 199 H (75-99) mg/dL Calcium 7.9 L (8.4-10.2) mg/dL AST 13 L (14-36) U/L Lactate Dehydrogenase (313-618) U/L Total Protein 5.2 L (6.3-8.2) g/dL Albumin 2.4 L (3.5-5.0) g/dL Assessment and Plan Plan: Assessment: #1. Multivessel coronary artery disease, status post quadruple coronary artery bypass grafting with SY sequentially to the mid LAD, to the distal LAD, reverse SVG to the first OM, reverse SVG to the RCA, exclusion of the left atrial appendage using a 35mm ATriClip, sternal plating using the [employer] system, harvesting of the right greater saphenous vein, and intraoperative MARLY and the peak aortic scanning, on 07/12/20212020 #2. Acute hypoxic respiratory failure related to atelectasis on bibasilar pleural effusions, status post right-sided thoracentesis on the 07/21/2021 with removal of 1.3 L of fluid, and left-sided thoracentesis on 07/22/2021 with removal of 900 mL of fluid #3. Hypotension, postoperative, multifactorial, related to acute blood loss anemia, history of ischemic cardiomyopathy with EF of 30-35%, expected outcome of multivessel coronary artery bypass grafting surgery, resolved #4. Acute non-ST elevated myocardial infarction this admission #5. Ischemic cardiomyopathy with EF of 30-35% #6. Acute hypoxic respiratory failure related to atelectasis and bibasilar pleural effusions #7. Hypertension #8. Hyperlipidemia #9. Severe COPD with preoperative FEV1 of 40% of predicted #10. Recent fall sustaining injury to her left foot, with soft tissue edema about the ankle, but no fracture or dislocation to the ankle or the left foot #11. Chronic systolic CHF #12. Depression #13. Osteoarthritis #14. History of tobacco dependence, in remission just since before admission Plan: Patient had right-sided thoracentesis yesterday and left-sided thoracentesis today would removal of 900 mL of fluid from the left side Postprocedure chest x-ray has been reviewed showing no evidence of pneumothorax, interstitial edema, and small residual pleural effusion, and right lower lobe opacity related to atelectasis FiO2 is currently down to 6 L Continue encouraging deep breathing and coughing Has not required BiPAP support Remains in sinus mechanism, hemodynamically stable We'll continue to closely follow her condition in the intensive care unit Continue weaning FiO2 Diuretics per CT surgery Physical therapy consultation Daily labs, daily chest x-rays I performed a history & physical examination of the patient and discussed their management with my nurse practitioner, Makenna Cheng. I reviewed the nurse practitioner's note and agree with the documented findings and plan of care. Lung sounds are positive for dim with crackles throughout the lung santiago. The findings and the impression was discussed with the patient. I attest to the documentation by the nurse practitioner. Time with Patient: Greater than 30
--- NOTE | 2021-07-22 11:15 | PN ---
PROGRESS NOTE Ms. Falcon is a 61-year-old female who underwent coronary artery bypass grafting and had evidence of severe ischemic cardiomyopathy. She is feeling better today. She underwent thoracentesis with removal of fluid from the right side. Her breathing is better. She is denying any chest pain. No dizziness. No palpitations. No nausea. Hemodynamically stable. She continues to be in sinus mechanism. She had no further episode of bradyarrhythmia. She continues to be on aspirin once a day, Plavix 75 mg daily. She received one dose of IV Lasix. She is on lisinopril 2.5 mg twice a day, metoprolol tartrate 25 mg twice a day, midodrine 5 mg 3 times a day. PHYSICAL EXAMINATION: Blood pressure is running in the 120s with a heart rate in the 60s and 70s. LUNGS: Mild decrease in breath sounds at the bases. Heart: Regular rate and rhythm. S1, S2. No S3. No rub, with a systolic murmur, ejection type. ABDOMEN: Soft, nontender. Extremities: Plus 1 edema on the right side. Has a boot on the left side. LAB DATA: Lab data revealed a hemoglobin of 8.6, BUN and creatinine 27 and 0.55, potassium 4.2. IMPRESSION: 1. Status post coronary artery bypass grafting with severe coronary artery disease. 2. Severe ischemic cardiomyopathy. 3. Episode of hypotension and bradycardia, resolved. 4. Fractured left lower extremity. 5. Status post bilateral thoracentesis. 6. History of chronic obstructive lung disease. 7. Diabetes. 8. Hyperlipidemia. RECOMMENDATIONS: I will stop the midodrine. Continue on the present dose of beta aixa and BECKY inhibitor. If her pressure is stable, her BECKY inhibitor can be increased in view of her history of cardiomyopathy. Will continue to increase her level of activity and depending on her progress, further recommendations will be made. MMODL / IJN: [id number] /
[2021-07-22 11:26] LABS: Glucose,Whole Blood 201 mg/dL (75-99)
--- NOTE | 2021-07-22 13:30 | P.PN ---
Subjective Progress Note Date: 07/22/21 Acute non-ST elevation ND Status post cardiac catheterization revealing triple-vessel coronary artery disease Acute hypoxic respiratory failure Acute exacerbation systolic CHF Patient is a 61-year-old female came in the appearance of left-sided chest pain and also shortness of breath and patient the had a cast from her recent for for calcaneal fracture. Patient has EF of around 25-30% only on Aldactone at home it appears to be in a bit of heart failure with bilateral pleural effusion CT of the chest showed some infiltrate but no work program. Patient denied any cough. Patient had any fever chills. Patient is found to have mildly elevated troponin. Please refer to business support assistant documentation for EKG reading. Patient was evaluated by cardiology and they're recommending catheterization today. 07/11/2021 Patient is seen and evaluated sitting up in bedside chair; denies any complaint of chest pain or shortness of breath but does report feeling anxious about scheduled surgery tomorrow Vital signs are reviewed and remained stable; blood pressure at 122/62 Patient is status post cardiac catheterization which revealed severe triple vessel coronary artery disease; cardiothoracic surgery on board and CABG is planned for tomorrow Patient has been taken off lisinopril given planned surgery tomorrow morning; remains stable on rest of current medications 07/12/2021 Patient is seen and evaluated; denies any complaint of chest pain or shortness of breath; feels anxious and overwhelmed for upcoming surgery this morning Vital signs reveal temperature 98.2, pulse 87, respiration 19 and blood pressure 128/67 with O2 saturation 92% on 2 L Labs revealed WBC 6.2, hemoglobin 10.1, platelet count of 272, blood glucoses ranging between 142-177 Patient is scheduled for OR for CABG 07/13/2021 patient is status post CABG, POD #1, she had triple-vessel urinary artery bypass grafting. Did very well overnight, patient was extubated uneventfully, and at present seems to be doing well. She is only on 2 L nasal cannula, and O2 saturations 97%. Vital signs are reviewed temperature of 99.3, pulse 90, respirations 17 and blood pressure 149/80 Chest x-ray is showing minimal bibasilar opacity/atelectasis. Her indwelling tubes and catheters are unchanged. Clinically the patient is doing great, she is not requiring any inotropes or any pressors. A todd is achieving about 500 mL with her incentive spirometer. WBC count is 7.6 hemoglobin is 8. Her electrolytes are normal 07/14/2021 Patient is seen and evaluated sitting up in a bedside recliner; was successfully extubated yesterday Vital signs are reviewed and remained stable with a temperature of 98.5, pulse 71, respiration 15 and blood pressure of 9659 Thoracic surgery on board recommending to continue with aspirin, statin, Plavix and beta blockers with plans to increase beta aixa therapy as tolerated; patient will be started on low-dose herber for afterload reduction and blood pressure is more stable; continue with amiodarone for prophylactic prevention of atrial fibrillation Continue to increase activity; PT/OT/cardiac rehab 07/15/2021 patient is seen and evaluated in ICU; postoperative day #3; sitting in a recliner, on 2 L nasal cannula, does not seem to be in any distress. Reports fair pain control. She is in sinus rhythm, blood pressure is marginal and her urine output was noted to be a bit on the low side. She did receive a unit of packed RBCs yesterday for hemoglobin of 6.8. She is on a low dose of norepinephrine with minimal improvement in her blood pressure. But no significant improvement noted in urine output. Continues to have left-sided pleural chest tube in place. Lab review shows WBC of 9.0, hemoglobin 9.2, platelets of 135, sodium 136, potassium 3.9, BUN/creatinine of 2019/0.96 Chest x-ray showed mostly atelectasis at the bases, no evidence of congestive heart failure. Continue aspirin statins and Plavix as well as beta blockers; oral amiodarone. Continue pain control 07/16/2021 Patient is seen and evaluated and follow-up continues to be closely monitored in the ICU with multiple medical consultations following. Sugars have been elevated and patient normally takes 70/30 28 units twice daily and will add and continued sliding scale as well. Blood pressure running low and midodrine being increased. Oral amiodarone being discontinued. Chest xray today shows bibasilar opacities right greater than the left component of effusions with atelectasis. Encouraged incentive spirometer at least 10 times every hour while awake. Will be given a dose of lasix. Patient continues with left lower extremity cast and orthopedics consulted. Patient is non-weightbearing and will need continued PT/OT therapy. Social work following as well for possible rehab on discharge. 07/17/2021 Patient is seen in follow-up this morning stating she is not feeling well today. Patient is having some increased nausea and generalized weakness. Patient has zofran as needed and will add IV protonix bid. Blood sugars have been better controlled on current medication regimen and will continue. Patient to have cordis catheter removed. Podiatry consult pending for left lower extremity fracture. Patient continues to report discomfort to this area and temporary cast and herber wraps noted. Patient is currently non-weightbearing to the left lower extremity and unable to work with physical therapy because of the pain and unsteadiness and awaiting recommendations. Patient is more short of breath today and requiring 7L of 02 via NC. Chest ultrasound ordered. 07/18/2021 Patient is seen and evaluated in the ICU and is being closely monitored. Patient continues on 5L via NC and states that her oxygen saturations have been low and she denies any worsening shortness of breath. Patient is sitting up in the chair and currently receiving a breathing treatment. Patient does have history of COPD and states that she does not use inhalers or nebulizers for this. Patient denies oxygen use in the outpatient setting. Patient given IV lasix today. Patient does have incentive spirometer at the bedside and strongly encouraged to continue using at least 10 times every hour while awake. Blood sugars on the lower side and patient states she is eating and denies any further nausea today. 07/19/2021 Patient is evaluated this morning and continues to be closely monitored in the ICU. Patient is having increasing shortness of breath and has received another dose of IV Lasix as chest x-ray shows cardiomegaly with central vascular congestion and small to moderate size greater than left pleural effusions and associated basilar compressive atelectasis on the background chronic parenchymal changes are redemonstrated with no significant change from previous day. Patient is currently maintained on BiPAP at 50% and intermittently using high flow cannula at 15 L. Patient also experienced some atrial fibrillation with RVR and cardiology following closely. Patient is maintained on IV amiodarone along with metoprolol. 07/20/2021 Patient is seen and evaluated this morning in the ICU being closely monitored with multiple medical consultations including CT surgery, cardiology, pulmonary car dumper operator helper, and orthopedics evaluated the patient. Patient Does have a history of a fracture of the left calcaneus and Dr. Carrillo evaluated the patient. Patient has been followed in the outpatient setting for management of a Charcot joint disease and fracture of the left calcaneus and is currently maintained on a posterior splint and was awaiting a walker boot for the left lower extremity. She is to continue nonweightbearing of that left lower extremity and will follow with PT/OT therapy. She continues with low oxygen saturations and currently maintained on 15 L high flow and titrating as tolerated. Patient denies any worsening shortness of breath. Patient was also continued on breathing inhalational treatments and Mucomyst. Patient was also continued on NovoLog 70/30 at 25 units twice a day and continues to have low blood sugar readings in the mornings and will discontinue and continue just sliding scale. Patient not eating very much. Encouraged oral intake. 07/21/2021 Patient is seen in follow-up this morning continues to be in the ICU with multiple medical consultations following. Patient underwent thoracentesis this morning with approximately 1.5 L removed and fluid was sent for analysis by pulmonary services. She continues on 15 L high flow with oxygen saturations above 90%. Encouraged incentive spirometer at least 10 times every hour while awake. Encouraged increased activity with continued non-weightbearing of that left lower extremity. Blood sugars mildly elevated in the 180's-200s and will continue with sliding scale. Encouraged oral intake. 07/22/2021 Patient is seen this morning continues to be in the ICU and being closely monitored. Patient is status post thoracentesis on the right and awaiting for fluid culture analysis. Patient is status post left-sided thoracentesis today and removed approximately 900 mL fluid. Chest x-ray today shows no evidence of pneumothorax with diffuse interstitial densities in the right lung with partial consolidation in the right lung essentially unchanged to previous with a small left pleural effusion which appears less apparent compared to previous and no change in mild diffuse interstitial edema. Patient is to receive a dose of IV Lasix today. She continues with 6 L via nasal cannula and weaning as tolerated. Cardiology following as well and patient is currently sinus rhythm. LAbs: WBC is 5.4, hemoglobin is 8.6, platelets are 306, sodium is 134, potassium is 4.2, BUN is 27, creatinine is 0.55, calcium is 7.9 Review of systems: Constitutional: reports of fatigue, no reports of fever, or chills Cardiovascular: No reports of chest pain or palpitations Respiratory: no reports of worsening shortness of breath, feels somewhat improved after thoracentesis GI: No reports of nausea, vomiting, or diarrhea : No reports of dysuria or retention Neurovascular: reports of generalized weakness, left lower extremity pain All medications have been reviewed Active Medications Acetaminophen (Acetaminophen Tab 325 Mg Tab) 650 mg PO Q4HR PRN PRN Reason: Fever and/ or Pain Last Admin: 07/21/21 21:32 Dose: 650 mg Documented by: Hydrocodone Bitart/Acetaminophen (Hydrocodone/Apap 10-325mg 1 Each Tab) 1 each PO Q6HR PRN PRN Reason: Pain Last Admin: 07/22/21 11:53 Dose: 1 each Documented by: Acetylcysteine (Acetylcysteine 800 Mg/4 Ml Vial) 200 mg INHALATION RT-QID [facility] Last Admin: 07/22/21 11:40 Dose: Not Given Documented by: Albuterol/Ipratropium (Ipratropium-Albuterol 3 Ml Neb) 3 ml INHALATION RT-Q2H PRN PRN Reason: Shortness Of Breath Or Wheezing Albuterol/Ipratropium (Ipratropium-Albuterol 3 Ml Neb) 3 ml INHALATION RT-QID [facility] Last Admin: 07/22/21 11:40 Dose: Not Given Documented by: Aspirin (Aspirin 325 Mg Tab) 325 mg PO DAILY [facility] Last Admin: 07/22/21 10:29 Dose: 325 mg Documented by: Atorvastatin Calcium (Atorvastatin 40 Mg Tab) 40 mg PO DAILY [facility] Last Admin: 07/22/21 10:29 Dose: 40 mg Documented by: Bisacodyl (Bisacodyl 10 Mg Supp) 10 mg RECTAL DAILY PRN PRN Reason: Constipation Budesonide/Formoterol Fumarate (Symbicort 160-4.5 Mcg Inhaler) 2 puff INHALATION RT-BID [facility] Last Admin: 07/22/21 07:50 Dose: 2 puff Documented by: Clopidogrel Bisulfate (Clopidogrel 75 Mg Tab) 75 mg PO DAILY [facility] Last Admin: 07/22/21 10:29 Dose: 75 mg Documented by: Duloxetine HCl (Duloxetine Hcl 30 Mg Capsule.Dr) 30 mg PO DAILY [facility] Last Admin: 07/22/21 10:31 Dose: 30 mg Documented by: Furosemide (Furosemide 10 Mg/Ml 4 Ml Vial) 40 mg IV ONCE ONE Stop: 07/22/21 16:01 Gabapentin (Gabapentin 100 Mg Cap) 100 mg PO DAILY [facility] Last Admin: 07/22/21 10:29 Dose: 100 mg Documented by: Gabapentin (Gabapentin 100 Mg Cap) 100 mg PO HS [facility] Last Admin: 07/21/21 21:34 Dose: 100 mg Documented by: Heparin Sodium (Porcine) (Heparin Sodium,Porcine/Pf 5,000 Unit/0.5 Ml Syringe) 5,000 unit SQ Q8HR [facility] Last Admin: 07/22/21 10:31 Dose: 5,000 unit Documented by: Amiodarone HCl 150 mg/ (Dextrose/Water) 103 mls @ 618 mls/hr IV .Q10M PRN; Protocol PRN Reason: A.FIB/FLUTTER Last Admin: 07/19/21 08:30 Dose: 618 mls/hr Documented by: Amiodarone HCl 360 mg/ (Dextrose/Water) 207.2 mls @ 34.533 mls/hr IV .Q6H PRN; Protocol PRN Reason: A.FIB/FLUTTER Amiodarone HCl 450 mg/ (Dextrose/Water) 250 mls @ 16.667 mls/hr IV .Q15H PRN; Protocol PRN Reason: A.FIB/FLUTTER Insulin Aspart (Insulin Aspart (Novolog) 100 Unit/Ml Vial) 0 unit SQ ACHS [facility]; Protocol Last Admin: 07/22/21 11:53 Dose: 2 unit Documented by: Lisinopril (Lisinopril 2.5 Mg Tab) 2.5 mg PO BID [facility] Last Admin: 07/22/21 10:34 Dose: 2.5 mg Documented by: Magnesium Hydroxide (Magnesium Hydroxide 2,400 Mg/10 Ml Cup) 2,400 mg PO BID PRN PRN Reason: Constipation Last Admin: 07/16/21 14:34 Dose: 2,400 mg Documented by: Melatonin (Melatonin 3 Mg Tablet) 6 mg PO [facility] Last Admin: 07/21/21 21:32 Dose: 6 mg Documented by: Metoclopramide HCl (Metoclopramide 5 Mg/Ml 2 Ml Vial) 10 mg IVP Q4H PRN PRN Reason: Nausea And Vomiting Last Admin: 07/17/21 13:01 Dose: 10 mg Documented by: Metoprolol Tartrate (Metoprolol Tartrate 25 Mg Tab) 25 mg PO BID [facility] Last Admin: 07/22/21 10:29 Dose: 25 mg Documented by: Miscellaneous Information (Potassium Replacement Protocol 1 Each Mis) 1 each MISCELLANE DAILY PRN; Protocol PRN Reason: Per Protocol Miscellaneous Information (Magnesium Replacement Protocol 1 Each [facility]) 1 each MISCELLANE DAILY PRN; Protocol PRN Reason: Per Protocol Miscellaneous Information (Phosphorus Replacement Protoco 1 Each [facility]) 1 each MISCELLANE DAILY PRN; Protocol PRN Reason: Per Protocol Ondansetron HCl (Ondansetron 4 Mg/2 Ml Vial) 4 mg IVP Q6HR PRN PRN Reason: Nausea And Vomiting Pantoprazole Sodium (Pantoprazole 40 Mg/10 Ml Vial) 40 mg IVP BID [facility] Last Admin: 07/22/21 10:29 Dose: 40 mg Documented by: Senna/Docusate Sodium (Sennosides-Docusate Sodium 1 Each Tab) 2 each PO HS [facility] Last Admin: 07/21/21 21:32 Dose: 2 each Documented by: Sodium Chloride (Sodium Chloride 0.9% Flush 10 Ml Syringe) 10 ml IV BID [facility] Last Admin: 07/22/21 10:31 Dose: 10 ml Documented by: Physical exam: Gen: This is a 61-year-old female awake, alert and oriented 3, well-developed, well-nourished. Temp is 98.2 F, pulse is 71, respirations are 18, blood pressure is 131/72, oxygen saturation is 98 % on 8 L high flow nasal cannula HEENT: Head is atraumatic, normocephalic. Pupils equal, round. Sclerae is anicteric. NECK: Supple. No JVD. No lymphadenopathy. No thyromegaly. LUNGS: diminished breath sounds bilaterally with No wheezes and some scattered rhonchi and crackles noted. No intercostal retractions. HEART: S1, S2 muffled. ABDOMEN: Soft. Bowel sounds are present. No masses. No tenderness. EXTREMITIES: No pedal edema. No calf tenderness. NEUROLOGICAL: Patient is awake, alert and oriented x3. Cranial nerves 2 through 12 are grossly intact. diffusely weak Assessment: -Acute non-ST elevation myocardial infarction: Patient is status post cardiac catheterization triple-vessel disease CABG -Acute hypoxic respiratory failure secondary to congestive heart failure chronic systolic dysfunction with acute exacerbation -Status post thoracentesis for right pleural effusion today -Status post thoracentesis for left pleural effusion -Continued ongoing Nicotine use: Counseling was provided -COPD, not in acute exacerbation -Type 2 diabetes mellitus, uncontrolled with hyperglycemia and hypoglycemia -Hyperlipidemia -hypervolemic hyponatremia -hypertension, currently hypotensive -Charcot's foot disease with left calcaneus fracture status post fall with partial casting and was being followed with Dr. Carrillo in the outpatient setting awaiting specialty boot -GI prophylaxis -DVT prophylaxis -Full code Plan: Recommend to continue with current medications and management. Patient being followed closely by CT surgery along with cardiology and pulmonary. Orthopedics following as well and recommending specialty boot for Charcot's foot with calcaneus fracture of the left and will follow-up with patient the outpatient setting. Patient is to continue with nonweightbearing and working with physical therapy daily. When to continue with current sliding scale and Accu-Cheks before meals and at bedtime. Encouraged increased oral intake and will resume home medications once oral intake is increased. Patient is maintained on heart healthy consistent carb diet. Patient encouraged continued incentive spirometer use and increase exercise as tolerated. Will repeat am labs and continue to monitor closely. Continue to wean FI02 as tolerated. Patient is status post thoracentesis on the left side today of approximately 900 mL's removed. Awaiting fluid analysis from yesterday's thoracentesis.. Recommend to continue with breathing inhalational treatments. Due to multiple complex medical issues, prognosis is guarded. Objective - Vital Signs Vital signs: Vital Signs Temp 98.3 F 07/22/21 04:00 Pulse 71 07/22/21 08:02 Resp 15 07/22/21 07:00 BP 126/86 07/22/21 07:00 Pulse Ox 95 07/22/21 07:52 Intake & Output 07/21/21 07/22/21 07/22/21 18:59 06:59 18:59 Intake Total 720 Output Total 550 600 0 Balance -550 120 0 Weight 62.4 kg Intake: Oral 720 Output: Urine 550 600 0 Other: Voiding Method Diaper Diaper Diaper # Voids 1 ABP, PAP, CO, CI - Last Documented Arterial Blood Pressure 68/53 Pulmonary Artery Pressure 26/10 Cardiac Output 4.3 Cardiac Index 2.8 - Labs CBC & Chem 7: 07/22/21 03:21 07/22/21 03:21 Labs: Abnormal Lab Results - Last 24 Hours (Table) 07/21/21 07/21/21 07/21/21 Range/Units 03:15 11:10 17:33 RBC (3.80-5.40) m/uL Hgb (11.4-16.0) gm/dL Hct (34.0-46.0) % MCHC (31.0-37.0) g/dL RDW (11.5-15.5) % Eosinophils # (0-0.7) k/uL Sodium (137-145) mmol/L Carbon Dioxide (22-30) mmol/L BUN (7-17) mg/dL Glucose (74-99) mg/dL POC Glucose (mg/dL) 206 H 175 H (75-99) mg/dL Calcium (8.4-10.2) mg/dL AST (14-36) U/L Lactate Dehydrogenase 652 H (313-618) U/L Total Protein 5.4 L (6.3-8.2) g/dL Albumin (3.5-5.0) g/dL 07/21/21 07/22/21 07/22/21 Range/Units 21:24 03:21 03:21 RBC 2.94 L (3.80-5.40) m/uL Hgb 8.6 L (11.4-16.0) gm/dL Hct 28.3 L (34.0-46.0) % MCHC 30.4 L (31.0-37.0) g/dL RDW 16.5 H (11.5-15.5) % Eosinophils # 0.9 H (0-0.7) k/uL Sodium 134 L (137-145) mmol/L Carbon Dioxide 31 H (22-30) mmol/L BUN 27 H (7-17) mg/dL Glucose 141 H (74-99) mg/dL POC Glucose (mg/dL) 199 H (75-99) mg/dL Calcium 7.9 L (8.4-10.2) mg/dL AST 13 L (14-36) U/L Lactate Dehydrogenase (313-618) U/L Total Protein 5.2 L (6.3-8.2) g/dL Albumin 2.4 L (3.5-5.0) g/dL
[2021-07-22 13:43] LABS: LDH, Body Fluid Source Pleural Fluid; Total Protein, Body Fluid 1820 mg/dL
[2021-07-22] MEDS ORDERED: FUROSEMIDE 10 MG/ML 4 ML VIAL IV ONE (16:00)
[2021-07-22 16:54] LABS: Glucose,Whole Blood 154 mg/dL (75-99)
[2021-07-22 20:38] LABS: Glucose,Whole Blood 332 mg/dL (75-99)
[2021-07-22] MEDS: MELATONIN 3 MG TABLET PO SCH (21:05)
[2021-07-22] MEDS: SENNOSIDES-DOCUSATE SODIUM 1 EACH TAB PO SCH (21:05)
[2021-07-22] MEDS: ACETAMINOPHEN TAB 325 MG TAB PO PRN (21:05)
[2021-07-23 04:14] LABS: Anisocytosis Slight; HCT 27.1 % (34.0-46.0); HGB 8.5 gm/dL (11.4-16.0); Hypochromasia Marked; MCH 30.3 pg (25.0-35.0); MCHC 31.5 g/dL (31.0-37.0); MCV 96.2 fL (80.0-100.0); Mean Platelet Volume 8.1; Platelet Count 258 k/uL (150-450); RBC 2.82 m/uL (3.80-5.40); WBC 5.6 k/uL (3.8-10.6)
[2021-07-23 04:33] LABS: African American GFR (CKD) >90 (>60 ml/min/1.73 sqM); Anion Gap 4 mmol/L; Blood Urea Nitrogen 21 mg/dL (7-17); Calcium 7.8 mg/dL (8.4-10.2); Carbon Dioxide 34 mmol/L (22-30); Chloride 97 mmol/L (98-107); Glucose 270 mg/dL (74-99); Magnesium 1.6 mg/dL (1.6-2.3); Non-African American GFR(CKD) >90 (>60 ml/min/1.73 sqM); Sodium 135 mmol/L (137-145)
[2021-07-23] MEDS: HYDROcodone/APAP 10-325MG 1 EACH TAB PO PRN ×4 (06:32→21:50)
[2021-07-23] MEDS: INSULIN ASPART (NovoLOG) 100 UNIT/ML VIAL SQ SCH ×4 (06:33→21:48)
[2021-07-23] MEDS: SYMBICORT 160-4.5 MCG INHALER INHALATION SCH ×2 (07:30→19:17)
[2021-07-23] MEDS: IPRATROPIUM-ALBUTEROL 3 ML NEB INHALATION SCH ×4 (07:30→19:17)
[2021-07-23] MEDS ORDERED: POTASSIUM CHLORIDE ER 10 MEQ TAB.ER.PRT PO STA (08:12)
--- NOTE | 2021-07-23 08:26 | XR ---
EXAMINATION TYPE: XR chest 1V portable DATE OF EXAM: 07/23/2021 Comparison: 07/22/2021 Clinical History: 61-year-old female post op CABG Findings: Sternal plate and screw fixation as well as median sternotomy wires. Post-CABG clips throughout the m ediastinum. Heart is mildly enlarged. Hyperinflation. Mild interstitial density right greater than le ft remains along with small bilateral pleural effusions. Impression: Similar exam with COPD and likely superimposed mild CHF. Similar small bilateral pleural effusions wi th adjacent atelectasis and/or consolidation.
--- NOTE | 2021-07-23 09:25 | P.PN ---
Subjective Progress Note Date: 07/23/21 Principal diagnosis: Multivessel coronary artery disease, non-ST elevated myocardial infarction this admission, acute on chronic systolic heart failure, bilateral pneumonia with pl eural effusions this admission. Past medical history significant for cardiomopathy, hypertension, hyperlipidemia, uncontrolled insulin-dependent diabetes mellitus with hyperglycemia and an admission glucose of 420, osteoarthritis, insomnia, degenerative disc disease, pneumonia, C. difficile, depression, fibromyalgia, chronic pain syndrome, current ongoing tobacco abuse, COPD, recent fall from standing with broken foot with non-weight bearing status, recent accidental overdose according to the patient, preoperative normocytic normochromic anemia. POD #11 triple vessel coronary artery bypass grafting using the left internal mammary artery sequentially in a [id number] fashion to the mid left anterior descending artery, then in an end to side fashion to the distal left anterior descending artery, reverse saphenous vein graft from the aorta to the first obtuse marginal artery, reverse saphenous vein graft from the aorta to the right coronary artery after the takeoff of the early arising posterior descending artery, exclusion of the left atrial appendage using a 35 mm AtriClip, sternal plating using the [place] system, harvesting of the right greater saphenous vein from the groin to above the ankle level, intraoperative transesophageal echocardiogram and epi-aortic scanning, intraoperative graft flow measurements using the [employer] system Postoperative acute blood loss anemia and thrombocytopenia, expected outcomes given cardiopulmonary bypass pump and hemodilution as well as her preoperative anemia. Paroxysmal atrial fibrillation, a known common occurrence after cardiac surgery. Bilateral pleural effusions, status post right-sided thoracentesis with 1.3 L of pleural fluid drained on 07/21/2021 and left-sided thoracentesis with 900 ml of pleural fluid drained on 07/22/2021. The patient was seen in follow-up today 07/22/2021 at her bedside in the intensive care unit. Currently she is sitting up to the bedside chair, is awake, alert, oriented 3 and is in no acute apparent distress. She denies any complaints of pain or shortness of breath at this time. She remains hemodynamically stable and is currently on no inotropic or pressor support. Oxygen saturation are 94% on 2 L nasal cannula and she is achieving 1500 mL on her incentive spirometry with encouragement. Her blood sugars were elevated last evening with the highest being 332 mg/dL, the patient reports that she was eating ketchup and some barbecue sauce. Reinforced the importance of keeping good tight control of her blood sugars. Bedside telemetry showing normal sinus rhythm heart rate 76 BPM. She remains afebrile the last 24 hours. A left-sided thoracentesis was completed yesterday by Dr. Ritter from pulmonary critical care medicine with 900 mL of pleural fluid drained. Objective - Vital Signs Vital signs: Vital Signs Temp 97.8 F 07/23/21 04:00 Pulse 81 07/23/21 07:45 Resp 15 07/23/21 07:00 BP 142/76 07/23/21 07:00 Pulse Ox 96 07/23/21 07:31 Intake & Output 07/22/21 07/23/21 07/23/21 18:59 06:59 18:59 Intake Total 240 480 Output Total 250 Balance -10 480 Weight 61.1 kg Intake: Oral 240 480 Output: Urine 250 Other: Voiding Method Diaper Diaper # Voids 1 0 0 ABP, PAP, CO, CI - Last Documented Arterial Blood Pressure 68/53 Pulmonary Artery Pressure 26/10 Cardiac Output 4.3 Cardiac Index 2.8 - Exam CONSTITUTIONAL: Sitting up to the bedside chair intensive care unit, appears comfortable, cooperative, no apparent acute distress. HEENT: Neck is supple, no JVD, no lymphadenopathy. RESPIRATORY: Lungs sounds diminished throughout. Respirations are symmetrical and nonlabored. Currently on 2 L nasal cannula with oxygen saturations 94%. Able to achieve 1500 mL on her incentive spirometry. Strong cough. CARDIOVASCULAR: Regular rhythm and rate. S1 and S2 present, negative for S3, gallop or murmur. Sternum is stable. Palpable peripheral pulses bilaterally, no edema to her bilateral lower extremities. No calf pain or tenderness noted. Heart hugger in place with patient demonstrating appropriate use. Knee-high CHIO hose and sequential compression devices in place to her right lower extremity. GASTROINTESTINAL: Abdomen soft, nontender, nondistended. Active bowel sounds present 4 quadrants. Tolerating diet. Passing flatus. No guarding or r igidity. GENITOURINARY: Continues to void. Episodes of incontinence. INTEGUMENTARY: Skin is warm and dry with no evidence of clubbing or cyanosis. Midline sternal incision clean dry and well approximated, covered with dry intact dressing. Right lower extremity EVH site well approximated without redness or drainage. NEUROLOGIC: Cranial nerves II through XII intact. No focal deficits. MUSKULOSKELETAL: Able to move all extremities, strength equal bilaterally, generalized weakness, continues to have non-weightbearing status to her left foot. PSYCHIATRIC: Alert and oriented to person place and time, appropriate affect, intact judgment and insight. - Allied health notes Allied health notes reviewed: nursing - Labs CBC & Chem 7: 07/23/21 03:57 07/23/21 03:57 Labs: Abnormal Lab Results - Last 24 Hours (Table) 07/22/21 07/22/21 07/22/21 Range/Units 11:24 16:51 20:37 RBC (3.80-5.40) m/uL Hgb (11.4-16.0) gm/dL Hct (34.0-46.0) % RDW (11.5-15.5) % Sodium (137-145) mmol/L Chloride (98-107) mmol/L Carbon Dioxide (22-30) mmol/L BUN (7-17) mg/dL Creatinine (0.52-1.04) mg/dL Glucose (74-99) mg/dL POC Glucose (mg/dL) 201 H 154 H 332 H (75-99) mg/dL Calcium (8.4-10.2) mg/dL 07/23/21 07/23/21 Range/Units 03:57 03:57 RBC 2.82 L (3.80-5.40) m/uL Hgb 8.5 L (11.4-16.0) gm/dL Hct 27.1 L (34.0-46.0) % RDW 16.0 H (11.5-15.5) % Sodium 135 L (137-145) mmol/L Chloride 97 L (98-107) mmol/L Carbon Dioxide 34 H (22-30) mmol/L BUN 21 H (7-17) mg/dL Creatinine 0.48 L (0.52-1.04) mg/dL Glucose 270 H (74-99) mg/dL POC Glucose (mg/dL) (75-99) mg/dL Calcium 7.8 L (8.4-10.2) mg/dL Microbiology - Last 24 Hours (Table) 07/21/21 09:15 Gram Stain - Preliminary Pleural Fluid Body Fluid Culture - Preliminary 07/21/21 09:15 Fungal Culture - Preliminary Pleural Fluid 07/21/21 09:15 Acid Fast Bacilli Culture - Preliminary Pleural Fluid - Imaging and Cardiology Chest x-ray: report reviewed, image reviewed Assessment and Plan Assessment: 1. Multivessel coronary artery disease, non-ST elevated myocardial infarction this admission, status post three-vessel CABG 2. Acute on chronic systolic heart failure, EF 30-35% 3. Bilateral pneumonia with pleural effusions this admission 4. History of cardiomopathy 5. Hypertension 6. Hyperlipidemia, treated, cholesterol 128, LDL 60 7. Uncontrolled insulin-dependent diabetes mellitus with hyperglycemia, hemoglobin AIc 10.2% 8. Current chronic ongoing tobacco abuse 9. Severe COPD with preoperative FEV1 48% of predicted 10. Recent fall from standing with broken left foot with non-weight bearing status 11. History of C. difficile 12. Depression 13. Fibromyalgia, chronic pain syndrome, osteoarthritis 14. Recent accidental overdose according to the patient 15. Preoperative normocytic, normochromic anemia, postoperative acute blood loss anemia and thrombocytopenia, expected 16. Continuing hypotension on low-dose pressors, expected, resolved off pressors 17. Paroxysmal atrial fibrillation, a known common occurrence after cardiac surgery 18. Bilateral pleural effusions, status post a right thoracentesis on 2020 and a left thoracentesis today 07/22/2021 Plan: 1. Continue aspirin, statin, Plavix, and beta aixa with hold parameters. Metoprolol tartrate will be increased as tolerated.. 2. Midodrine has been discontinued. 3. Wean O2 as tolerated. Encourage incentive spirometry use 10 times every hour while awake. Bronchodilators per pulmonology. 4. Increase activity as tolerated. PT/OT/cardiac rehab following. Patient will need rehab at discharge due to challenging ambulation with cast and non- weightbearing status to her left foot, plan is for [facility]. 5. Will monitor daily labs and chest x-rays. Electrolyte replacement per protocol. 6. Pain control with current medication regimen which is home regiment. 7. Insulin management per primary care service. Patient is an uncontrolled diabetic with preoperative hemoglobin A1c 10.2%. Patient will need tight blood sugar control to prevent infection and promote sternal healing. 8. Patient continues to void, may bladder scan and straight cath for >300 mL residual. Having episodes of incontinence. 9. Continue to record strict accurate intake and output. Daily weights 10. Dr. Carrillo wants patient to remain completely non-weight bearing to left leg. 11. Lasix 20 mg by mouth daily. 12. Continue Low-dose lisinopril 2.5 mg by mouth twice a day for afterload reduction. 13. Discharge planning is in place, anticipate discharge to [facility] within the next 24. 14. More recommendations to follow based on patient's clinical course. Time with Patient: Greater than 30
[2021-07-23] MEDS: CLOPIDOGREL 75 MG TAB PO SCH (09:47)
[2021-07-23] MEDS: ATORVASTATIN 40 MG TAB PO SCH (09:49)
[2021-07-23] MEDS: ASPIRIN 325 MG TAB PO SCH (09:49)
[2021-07-23] MEDS: METOPROLOL TARTRATE 25 MG TAB PO SCH ×2 (09:49→21:49)
[2021-07-23] MEDS: DULoxetine HCL 30 MG CAPSULE.DR PO SCH (09:49)
[2021-07-23] MEDS: ENOXAPARIN 40 MG/0.4 ML SYRINGE SQ SCH (09:50)
[2021-07-23] MEDS: FUROSEMIDE 20 MG TAB PO SCH (09:53)
[2021-07-23] MEDS: MAGNESIUM SULFATE-D5W PMX 1 GM in DEXTROSE/WATER 1 100ML.BAG IVPB SCH ×2 (09:55→12:36)
[2021-07-23] MEDS: PANTOPRAZOLE 40 MG/10 ML VIAL IVP SCH (09:57)
--- NOTE | 2021-07-23 10:03 | P.PN ---
Subjective Progress Note Date: 07/23/21 On 07/23/2021 patient seen in follow-up in intensive care unit, today is postoperative day #11 status post triple coronary artery bypass grafting, occlusion of the left atrial appendage, his sternal plating using the Ney tritium system. She is post right-sided thoracentesis by Dr. Ritter, and a total of 1.3 L of fluid and left-sided thoracentesis with removal of 900 mL of pleural fluid. Chest x-ray after the procedure shows no change in mild diffuse interstitial edema, right lower lobe opacity, and small left pleural effusion. Clinically she states she is breathing much easier, she is currently down to 8 L of oxygen pulse ox is 95%, which was further decreased to 6 L. She is in sinus mechanism . She did not use BiPAP support last night. Her chest tubes have been discontinued, incisions are clean dry and intact. Her blood work from today shows a white blood cell count of 5.4, hemoglobin of 8.6, sodium was 134, potassium is 4.2, chloride was 98, CO2 31, B1 is 27 creatinine 0.5. Lung sounds revealed bibasilar crackles, patient has been encouraged to work on her incentive spirometer. She is achieving 1 L on the today. She has not had recurrence of atrial fibrillation in the last 24 hours. She has been nonweightbearing on her left leg in the left leg remains in the splint. She has been participating with physical therapy. His evaluation, the patient is on oxygen at room air her pulse ox is around 91%. The chest x-ray was repeated this morning and it shows improvement in the volume status. Noted the patient is undergone bilateral thoracentesis. There is some residual pleural effusion and the left lung base along with some small amount of fluid in the right. There is some post thoracotomy changes. No evidence of any pneumothorax. Blood work from today shows a white cell count of 5.6 with a hemoglobin 8.6, platelets at 258, normal renal function, sodium level is at 135, potassium level is at 4.0. Medications include Lasix 20 mg oral on a daily basis. The cardiac rhythm is sinus and the patient is currently on aspirin, Plavix, and she is on Lopressor 25 mg by mouth twice a day. She is on high-dose statins. She is using incentive spirometer. Approximately 1200 . Urine output is adequate and the patient has no Valencia catheter in place. Surgical wound site over the sternum is dry clean and intact. Objective - Vital Signs Vital signs: Vital Signs Temp 97.8 F 07/23/21 04:00 Pulse 81 07/23/21 07:45 Resp 15 07/23/21 07:00 BP 142/76 07/23/21 07:00 Pulse Ox 96 07/23/21 07:31 Intake & Output 07/22/21 07/23/21 07/23/21 18:59 06:59 18:59 Intake Total 240 480 Output Total 250 Balance -10 480 Weight 61.1 kg Intake: Oral 240 480 Output: Urine 250 Other: Voiding Method Diaper Diaper # Voids 1 0 0 ABP, PAP, CO, CI - Last Documented Arterial Blood Pressure 68/53 Pulmonary Artery Pressure 26/10 Cardiac Output 4.3 Cardiac Index 2.8 - Exam GENERAL EXAM: Alert, pleasant, 61-year-old white female, sitting up in the rec liner, currently on RA , comfortable in no apparent distress. HEAD: Normocephalic/atraumatic. EYES: Normal reaction of pupils, equal size. Conjunctiva pink, sclera white. NOSE: Clear with pink turbinates. THROAT: No erythema or exudates. NECK: No masses, no JVD, no thyroid enlargement, no adenopathy. CHEST: No chest wall deformity. Symmetrical expansion. Midsternal incision is clean dry and intact, chest tube sites are clean dry and intact, interval removal of chest tubes, LUNGS: Equal air entry with no crackles, wheeze, rhonchi or dullness. CVS: Regular rate and rhythm, normal S1 and S2, no gallops, no murmurs, no rubs ABDOMEN: Soft, nontender. No hepatosplenomegaly, normal bowel sounds, no guarding or rigidity. EXTREMITIES: No clubbing, no edema, no cyanosis, 2+ pulses and upper and lower extremities. Left lower extremity incision is covered with surgical dressing, SCDs on bilateral legs MUSCULOSKELETAL: Muscle strength and tone normal. SPINE: No scoliosis or deformity SKIN: No rashes CENTRAL NERVOUS SYSTEM: Alert and oriented -3. No focal deficits, tone is normal in all 4 extremities. PSYCHIATRIC: Alert and oriented -3. Appropriate affect. Intact judgment and insight. - Labs CBC & Chem 7: 07/23/21 03:57 07/23/21 03:57 Labs: Abnormal Lab Results - Last 24 Hours (Table) 07/22/21 07/22/21 07/22/21 Range/Units 11:24 16:51 20:37 RBC (3.80-5.40) m/uL Hgb (11.4-16.0) gm/dL Hct (34.0-46.0) % RDW (11.5-15.5) % Sodium (137-145) mmol/L Chloride (98-107) mmol/L Carbon Dioxide (22-30) mmol/L BUN (7-17) mg/dL Creatinine (0.52-1.04) mg/dL Glucose (74-99) mg/dL POC Glucose (mg/dL) 201 H 154 H 332 H (75-99) mg/dL Calcium (8.4-10.2) mg/dL 07/23/21 07/23/21 Range/Units 03:57 03:57 RBC 2.82 L (3.80-5.40) m/uL Hgb 8.5 L (11.4-16.0) gm/dL Hct 27.1 L (34.0-46.0) % RDW 16.0 H (11.5-15.5) % Sodium 135 L (137-145) mmol/L Chloride 97 L (98-107) mmol/L Carbon Dioxide 34 H (22-30) mmol/L BUN 21 H (7-17) mg/dL Creatinine 0.48 L (0.52-1.04) mg/dL Glucose 270 H (74-99) mg/dL POC Glucose (mg/dL) (75-99) mg/dL Calcium 7.8 L (8.4-10.2) mg/dL Microbiology - Last 24 Hours (Table) 07/21/21 09:15 Gram Stain - Preliminary Pleural Fluid Body Fluid Culture - Preliminary 07/21/21 09:15 Fungal Culture - Preliminary Pleural Fluid 07/21/21 09:15 Acid Fast Bacilli Culture - Preliminary Pleural Fluid Assessment and Plan Plan: #1. Multivessel coronary artery disease, status post quadruple coronary artery bypass grafting with SY sequentially to the mid LAD, to the distal LAD, reverse SVG to the first OM, reverse SVG to the RCA, exclusion of the left atrial appendage using a 35mm ATriClip, sternal plating using the Ney/Tritium system, harvesting of the right greater saphenous vein, and intraoperative MARLY and the peak aortic scanning, on 07/12/2021, post op day #11 2020 #2. Acute hypoxic respiratory failure related to atelectasis on bibasilar pleural effusions, status post right-sided thoracentesis on the 07/21/2021 with removal of 1.3 L of fluid, and left-sided thoracentesis on 07/22/2021 with removal of 900 mL of fluid currently on room air oxygen #3. Hypotension, postoperative, multifactorial, related to acute blood loss anemia, history of ischemic cardiomyopathy with EF of 30-35%, expected outcome of multivessel coronary artery bypass grafting surgery, resolved #4. Acute non-ST elevated myocardial infarction this admission #5. Ischemic cardiomyopathy with EF of 30-35% #6. Acute hypoxic respiratory failure related to atelectasis and bibasilar pleural effusions, improving #7. Hypertension #8. Hyperlipidemia #9. Severe COPD with preoperative FEV1 of 40% of predicted #10. Recent fall sustaining injury to her left foot, with soft tissue edema about the ankle, but no fracture or dislocation to the ankle or the left foot #11. Chronic systolic CHF #12. Depression #13. Osteoarthritis #14. History of tobacco dependence, in remission just since before admission Plan: Patient had right-sided thoracentesis and left-sided thoracentesis , fluid is a transudate FiO2 is currently down and she is on RA Continue encouraging deep breathing and coughing Remains in sinus mechanism, hemodynamically stable We'll continue to closely follow Lasix 20 mg Po Physical therapy consultation reviewed CXR Going to [facility] today
[2021-07-23 11:34] LABS: Glucose,Whole Blood 197 mg/dL (75-99)
--- NOTE | 2021-07-23 12:43 | PN ---
PROGRESS NOTE FOLLOW-UP NOTE: Roula is a 61-year-old lady who underwent coronary artery bypass surgery and has cardiomyopathy with severe LV dysfunction. She is awaiting transfer to rehab this morning. She is doing well and is free of symptoms. Current medications include aspirin, Lipitor, Plavix 75 mg daily, Lasix 20 mg daily, Zestril 2.5 b.i.d., Lopressor 25 mg b.i.d. On exam, heart rate is 76 beats per minute. Blood pressure is 140/76, respiratory rate is 15. There is no jugular venous distention. Chest exam reveals good air entry bilaterally. Heart exam reveals first and second heart sounds. No gallop. No murmur. Abdomen is soft. Examination of extremities did not reveal any edema. Peripheral pulses are felt. Labs show that the hemoglobin is 8.5, platelet count is 258, potassium is 4, creatinine is 0.48. ASSESSMENT: 1. Coronary artery disease, status post coronary artery bypass grafting. 2. Ischemic cardiomyopathy. PLAN: Patient is on optimal medical therapy, stable for discharge. MMODL / IJN: [id number] /
[2021-07-23 16:42] LABS: Glucose,Whole Blood 285 mg/dL (75-99)
[2021-07-23] MEDS: ACETAMINOPHEN TAB 325 MG TAB PO PRN (17:57)
[2021-07-23] MEDS ORDERED: INSULN ASP PRT/INSULIN ASPART 100 UNIT/ML 10 ML VIAL SQ SCH (18:14)
[2021-07-23 20:24] LABS: Glucose,Whole Blood 495 mg/dL (75-99)
[2021-07-23 21:13] VITALS: RESP 18
[2021-07-23] MEDS ORDERED: INSULIN ASPART (NovoLOG) 100 UNIT/ML VIAL SQ ONE (21:45)
[2021-07-23] MEDS: GABAPENTIN 100 MG CAP PO SCH (21:47)
[2021-07-23] MEDS: SENNOSIDES-DOCUSATE SODIUM 1 EACH TAB PO SCH (21:48)
[2021-07-23] MEDS: MELATONIN 3 MG TABLET PO SCH (21:58)
--- NOTE | 2021-07-23 23:56 | P.PN ---
Subjective Progress Note Date: 07/23/21 Acute non-ST elevation OK Status post cardiac catheterization revealing triple-vessel coronary artery disease Acute hypoxic respiratory failure Acute exacerbation systolic CHF Patient is a 61-year-old female came in the appearance of left-sided chest pain and also shortness of breath and patient the had a cast from her recent for for calcaneal fracture. Patient has EF of around 25-30% only on Aldactone at home it appears to be in a bit of heart failure with bilateral pleural effusion CT of the chest showed some infiltrate but no work program. Patient denied any cough. Patient had any fever chills. Patient is found to have mildly elevated troponin. Please refer to emergency communications dispatcher documentation for EKG reading. Patient was evaluated by cardiology and they're recommending catheterization today. 07/11/2021 Patient is seen and evaluated sitting up in bedside chair; denies any complaint of chest pain or shortness of breath but does report feeling anxious about scheduled surgery tomorrow Vital signs are reviewed and remained stable; blood pressure at 122/62 Patient is status post cardiac catheterization which revealed severe triple vessel coronary artery disease; cardiothoracic surgery on board and CABG is planned for tomorrow Patient has been taken off lisinopril given planned surgery tomorrow morning; remains stable on rest of current medications 07/12/2021 Patient is seen and evaluated; denies any complaint of chest pain or shortness of breath; feels anxious and overwhelmed for upcoming surgery this morning Vital signs reveal temperature 98.2, pulse 87, respiration 19 and blood pressure 128/67 with O2 saturation 92% on 2 L Labs revealed WBC 6.2, hemoglobin 10.1, platelet count of 272, blood glucoses ranging between 142-177 Patient is scheduled for OR for CABG 07/13/2021 patient is status post CABG, POD #1, she had triple-vessel urinary artery bypass grafting. Did very well overnight, patient was extubated uneventfully, and at present seems to be doing well. She is only on 2 L nasal cannula, and O2 saturations 97%. Vital signs are reviewed temperature of 99.3, pulse 90, respirations 17 and blood pressure 149/80 Chest x-ray is showing minimal bibasilar opacity/atelectasis. Her indwelling tubes and catheters are unchanged. Clinically the patient is doing great, she is not requiring any inotropes or any pressors. A todd is achieving about 500 mL with her incentive spirometer. WBC count is 7.6 hemoglobin is 8. Her electrolytes are normal 07/14/2021 Patient is seen and evaluated sitting up in a bedside recliner; was successfully extubated yesterday Vital signs are reviewed and remained stable with a temperature of 98.5, pulse 71, respiration 15 and blood pressure of 9659 Thoracic surgery on board recommending to continue with aspirin, statin, Plavix and beta blockers with plans to increase beta aixa therapy as tolerated; patient will be started on low-dose herber for afterload reduction and blood pressure is more stable; continue with amiodarone for prophylactic prevention of atrial fibrillation Continue to increase activity; PT/OT/cardiac rehab 07/15/2021 patient is seen and evaluated in ICU; postoperative day #3; sitting in a recliner, on 2 L nasal cannula, does not seem to be in any distress. Reports fair pain control. She is in sinus rhythm, blood pressure is marginal and her urine output was noted to be a bit on the low side. She did receive a unit of packed RBCs yesterday for hemoglobin of 6.8. She is on a low dose of norepinephrine with minimal improvement in her blood pressure. But no significant improvement noted in urine output. Continues to have left-sided pleural chest tube in place. Lab review shows WBC of 9.0, hemoglobin 9.2, platelets of 135, sodium 136, potassium 3.9, BUN/creatinine of 2019/0.96 Chest x-ray showed mostly atelectasis at the bases, no evidence of congestive heart failure. Continue aspirin statins and Plavix as well as beta blockers; oral amiodarone. Continue pain control 07/16/2021 Patient is seen and evaluated and follow-up continues to be closely monitored in the ICU with multiple medical consultations following. Sugars have been elevated and patient normally takes 70/30 28 units twice daily and will add and continued sliding scale as well. Blood pressure running low and midodrine being increased. Oral amiodarone being discontinued. Chest xray today shows bibasilar opacities right greater than the left component of effusions with atelectasis. Encouraged incentive spirometer at least 10 times every hour while awake. Will be given a dose of lasix. Patient continues with left lower extremity cast and orthopedics consulted. Patient is non-weightbearing and will need continued PT/OT therapy. Social work following as well for possible rehab on discharge. 07/17/2021 Patient is seen in follow-up this morning stating she is not feeling well today. Patient is having some increased nausea and generalized weakness. Patient has zofran as needed and will add IV protonix bid. Blood sugars have been better controlled on current medication regimen and will continue. Patient to have cordis catheter removed. Podiatry consult pending for left lower extremity fracture. Patient continues to report discomfort to this area and temporary cast and herber wraps noted. Patient is currently non-weightbearing to the left lower extremity and unable to work with physical therapy because of the pain and unsteadiness and awaiting recommendations. Patient is more short of breath today and requiring 7L of 02 via NC. Chest ultrasound ordered. 07/18/2021 Patient is seen and evaluated in the ICU and is being closely monitored. Patient continues on 5L via NC and states that her oxygen saturations have been low and she denies any worsening shortness of breath. Patient is sitting up in the chair and currently receiving a breathing treatment. Patient does have history of COPD and states that she does not use inhalers or nebulizers for this. Patient denies oxygen use in the outpatient setting. Patient given IV lasix today. Patient does have incentive spirometer at the bedside and strongly encouraged to continue using at least 10 times every hour while awake. Blood sugars on the lower side and patient states she is eating and denies any further nausea today. 07/19/2021 Patient is evaluated this morning and continues to be closely monitored in the ICU. Patient is having increasing shortness of breath and has received another dose of IV Lasix as chest x-ray shows cardiomegaly with central vascular congestion and small to moderate size greater than left pleural effusions and associated basilar compressive atelectasis on the background chronic parenchymal changes are redemonstrated with no significant change from previous day. Patient is currently maintained on BiPAP at 50% and intermittently using high flow cannula at 15 L. Patient also experienced some atrial fibrillation with RVR and cardiology following closely. Patient is maintained on IV amiodarone along with metoprolol. 07/20/2021 Patient is seen and evaluated this morning in the ICU being closely monitored with multiple medical consultations including CT surgery, cardiology, pulmonary school childcare attendant, and orthopedics evaluated the patient. Patient Does have a history of a fracture of the left calcaneus and Dr. Carrillo evaluated the patient. Patient has been followed in the outpatient setting for management of a Charcot joint disease and fracture of the left calcaneus and is currently maintained on a posterior splint and was awaiting a walker boot for the left lower extremity. She is to continue nonweightbearing of that left lower extremity and will follow with PT/OT therapy. She continues with low oxygen saturations and currently maintained on 15 L high flow and titrating as tolerated. Patient denies any worsening shortness of breath. Patient was also continued on breathing inhalational treatments and Mucomyst. Patient was also continued on NovoLog 70/30 at 25 units twice a day and continues to have low blood sugar readings in the mornings and will discontinue and continue just sliding scale. Patient not eating very much. Encouraged oral intake. 07/21/2021 Patient is seen in follow-up this morning continues to be in the ICU with multiple medical consultations following. Patient underwent thoracentesis this morning with approximately 1.5 L removed and fluid was sent for analysis by pulmonary services. She continues on 15 L high flow with oxygen saturations above 90%. Encouraged incentive spirometer at least 10 times every hour while awake. Encouraged increased activity with continued non-weightbearing of that left lower extremity. Blood sugars mildly elevated in the 180's-200s and will continue with sliding scale. Encouraged oral intake. 07/22/2021 Patient is seen this morning continues to be in the ICU and being closely monitored. Patient is status post thoracentesis on the right and awaiting for fluid culture analysis. Patient is status post left-sided thoracentesis today and removed approximately 900 mL fluid. Chest x-ray today shows no evidence of pneumothorax with diffuse interstitial densities in the right lung with partial consolidation in the right lung essentially unchanged to previous with a small left pleural effusion which appears less apparent compared to previous and no change in mild diffuse interstitial edema. Patient is to receive a dose of IV Lasix today. She continues with 6 L via nasal cannula and weaning as tolerated. Cardiology following as well and patient is currently sinus rhythm. 07/23/2021 Patient is seen in follow up this morning and continues in the ICU and awaiting transfer to the selective unit. Patient is status post thoracentesis of right then left and oxygen saturations much improved. Weaning FI02 as tolerated. patient is on daily lasix and will continue. Chest xray shows COPD with CHF and atelactasis. continue current medications and breathing inhalational treatments and IS encouragement. Blood sugars elevated and trending upward and will resume her 70/30 and adjust the dose along with sliding scale. ECF being planned today. Review of systems: Constitutional: reports of fatigue, no reports of fever, or chills Cardiovascular: No reports of chest pain or palpitations Respiratory: no reports of worsening shortness of breath, feels somewhat improved after thoracentesis GI: No reports of nausea, vomiting, or diarrhea : No reports of dysuria or retention Neurovascular: reports of generalized weakness, left lower extremity pain All medications have been reviewed Active Medications Acetaminophen (Acetaminophen Tab 325 Mg Tab) 650 mg PO Q4HR PRN PRN Reason: Fever and/ or Pain Last Admin: 07/23/21 17:57 Dose: 650 mg Documented by: Hydrocodone Bitart/Acetaminophen (Hydrocodone/Apap 10-325mg 1 Each Tab) 1 each PO Q6HR PRN PRN Reason: Pain Last Admin: 07/23/21 21:50 Dose: 1 each Documented by: Albuterol/Ipratropium (Ipratropium-Albuterol 3 Ml Neb) 3 ml INHALATION RT-Q2H PRN PRN Reason: Shortness Of Breath Or Wheezing Albuterol/Ipratropium (Ipratropium-Albuterol 3 Ml Neb) 3 ml INHALATION RT-QID [facility] Last Admin: 07/23/21 19:17 Dose: 3 ml Documented by: Aspirin (Aspirin 325 Mg Tab) 325 mg PO DAILY [facility] Last Admin: 07/23/21 09:49 Dose: 325 mg Documented by: Atorvastatin Calcium (Atorvastatin 40 Mg Tab) 40 mg PO DAILY [facility] Last Admin: 07/23/21 09:49 Dose: 40 mg Documented by: Bisacodyl (Bisacodyl 10 Mg Supp) 10 mg RECTAL DAILY PRN PRN Reason: Constipation Budesonide/Formoterol Fumarate (Symbicort 160-4.5 Mcg Inhaler) 2 puff INHALATION RT-BID [facility] Last Admin: 07/23/21 19:17 Dose: 2 puff Documented by: Clopidogrel Bisulfate (Clopidogrel 75 Mg Tab) 75 mg PO DAILY [facility] Last Admin: 07/23/21 09:47 Dose: 75 mg Documented by: Duloxetine HCl (Duloxetine Hcl 30 Mg Capsule.Dr) 30 mg PO DAILY [facility] Last Admin: 07/23/21 09:49 Dose: 30 mg Documented by: Enoxaparin Sodium (Enoxaparin 40 Mg/0.4 Ml Syringe) 40 mg SQ DAILY [facility] Last Admin: 07/23/21 09:50 Dose: 40 mg Documented by: Furosemide (Furosemide 20 Mg Tab) 20 mg PO DAILY [facility] Last Admin: 07/23/21 09:53 Dose: 20 mg Documented by: Gabapentin (Gabapentin 100 Mg Cap) 100 mg PO DAILY [facility] Last Admin: 07/22/21 10:29 Dose: 100 mg Documented by: Gabapentin (Gabapentin 100 Mg Cap) 100 mg PO HS [facility] Last Admin: 07/23/21 21:47 Dose: 100 mg Documented by: Amiodarone HCl 150 mg/ (Dextrose/Water) 103 mls @ 618 mls/hr IV .Q10M PRN; Protocol PRN Reason: A.FIB/FLUTTER Last Admin: 07/19/21 08:30 Dose: 618 mls/hr Documented by: Amiodarone HCl 360 mg/ (Dextrose/Water) 207.2 mls @ 34.533 mls/hr IV .Q6H PRN; Protocol PRN Reason: A.FIB/FLUTTER Amiodarone HCl 450 mg/ (Dextrose/Water) 250 mls @ 16.667 mls/hr IV .Q15H PRN; Protocol PRN Reason: A.FIB/FLUTTER Insulin Aspart (Insulin Aspart (Novolog) 100 Unit/Ml Vial) 0 unit SQ [facility]; Protocol Last Admin: 07/23/21 21:48 Dose: 8 unit Documented by: Insulin Aspart (Insuln Asp Prt/Insulin Aspart 100 Unit/Ml 10 Ml Vial) 20 unit SQ AC-BRKFST [facility] Insulin Aspart (Insuln Asp Prt/Insulin Aspart 100 Unit/Ml 10 Ml Vial) 20 unit SQ AC-SUPPER [facility] Lisinopril (Lisinopril 2.5 Mg Tab) 2.5 mg PO BID [facility] Last Admin: 07/23/21 21:48 Dose: 2.5 mg Documented by: Magnesium Hydroxide (Magnesium Hydroxide 2,400 Mg/10 Ml Cup) 2,400 mg PO BID PRN PRN Reason: Constipation Last Admin: 07/16/21 14:34 Dose: 2,400 mg Documented by: Melatonin (Melatonin 3 Mg Tablet) 6 mg PO [facility] Last Admin: 07/23/21 21:58 Dose: 6 mg Documented by: Metoclopramide HCl (Metoclopramide 5 Mg/Ml 2 Ml Vial) 10 mg IVP Q4H PRN PRN Reason: Nausea And Vomiting Last Admin: 07/17/21 13:01 Dose: 10 mg Documented by: Metoprolol Tartrate (Metoprolol Tartrate 25 Mg Tab) 25 mg PO BID [facility] Last Admin: 07/23/21 21:49 Dose: 25 mg Documented by: Miscellaneous Information (Potassium Replacement Protocol 1 Each [facility]) 1 each MISCELLANE DAILY PRN; Protocol PRN Reason: Per Protocol Miscellaneous Information (Magnesium Replacement Protocol 1 Each [facility]) 1 each MISCELLANE DAILY PRN; Protocol PRN Reason: Per Protocol Miscellaneous Information (Phosphorus Replacement Protoco 1 Each [facility]) 1 each MISCELLANE DAILY PRN; Protocol PRN Reason: Per Protocol Ondansetron HCl (Ondansetron 4 Mg/2 Ml Vial) 4 mg IVP Q6HR PRN PRN Reason: Nausea And Vomiting Pantoprazole Sodium (Pantoprazole 40 Mg Tablet) 40 mg PO AC-BRKFST [facility] Senna/Docusate Sodium (Sennosides-Docusate Sodium 1 Each Tab) 2 each PO HS [facility] Last Admin: 07/23/21 21:48 Dose: 2 each Documented by: Sodium Chloride (Sodium Chloride 0.9% Flush 10 Ml Syringe) 10 ml IV BID [facility] Last Admin: 07/23/21 21:49 Dose: Not Given Documented by: Physical exam: Gen: This is a 61-year-old female awake, alert and oriented 3, well-developed, well-nourished. room air on exam HEENT: Head is atraumatic, normocephalic. Pupils equal, round. Sclerae is anicteric. NECK: Supple. No JVD. No lymphadenopathy. No thyromegaly. LUNGS: diminished breath sounds bilaterally with No wheezes and some scattered rhonchi noted. No intercostal retractions. HEART: S1, S2 muffled. ABDOMEN: Soft. Bowel sounds are present. No masses. No tenderness. EXTREMITIES: No pedal edema. No calf tenderness. NEUROLOGICAL: Patient is awake, alert and oriented x3. Cranial nerves 2 through 12 are grossly intact. diffusely weak Assessment: -Acute non-ST elevation myocardial infarction: Patient is status post cardiac catheterization triple-vessel disease CABG -Acute hypoxic respiratory failure secondary to congestive heart failure chronic systolic dysfunction with acute exacerbation -Status post thoracentesis for right pleural effusion today -Status post thoracentesis for left pleural effusion -Continued ongoing Nicotine use: Counseling was provided -COPD, not in acute exacerbation -Type 2 diabetes mellitus, uncontrolled with hyperglycemia and hypoglycemia -Hyperlipidemia -hypervolemic hyponatremia -hypertension, currently hypotensive -Charcot's foot disease with left calcaneus fracture status post fall with partial casting and was being followed with Dr. Carrillo in the outpatient setting awaiting specialty boot -GI prophylaxis -DVT prophylaxis -Full code Plan: Recommend to continue with current medications and management. Patient being followed closely by CT surgery along with cardiology and pulmonary. Orthopedics following as well and recommending specialty boot for Charcot's foot with calcaneus fracture of the left and will follow-up with patient the outpatient setting. Patient is to continue with nonweightbearing and working with physical therapy daily. Recommend to continue with current sliding scale and Accu-Cheks before meals and at bedtime. Will add patients 70/30 and monitor closely Encouraged consistent carb diet Patient is maintained on heart healthy consistent carb diet. Patient encouraged continued incentive spirometer use and increase exercise as tolerated. Continue to wean FI02 as tolerated. Patient is status post thoracentesis recently. Awaiting fluid analysis. Recommend to continue with breathing inhalational treatments. Due to multiple complex medi jones issues, prognosis is guarded. Objective - Vital Signs Vital signs: Vital Signs Temp 97.8 F 07/23/21 04:00 Pulse 81 07/23/21 07:45 Resp 15 07/23/21 07:00 BP 142/76 07/23/21 07:00 Pulse Ox 96 07/23/21 07:31 Intake & Output 07/22/21 07/23/21 07/23/21 18:59 06:59 18:59 Intake Total 240 480 Output Total 250 Balance -10 480 Weight 61.1 kg Intake: Oral 240 480 Output: Urine 250 Other: Voiding Method Diaper Diaper # Voids 1 0 0 ABP, PAP, CO, CI - Last Documented Arterial Blood Pressure 68/53 Pulmonary Artery Pressure 26/10 Cardiac Output 4.3 Cardiac Index 2.8 - Labs CBC & Chem 7: 07/23/21 03:57 07/23/21 03:57 Labs: Abnormal Lab Results - Last 24 Hours (Table) 07/22/21 07/22/21 07/22/21 Range/Units 11:24 16:51 20:37 RBC (3.80-5.40) m/uL Hgb (11.4-16.0) gm/dL Hct (34.0-46.0) % RDW (11.5-15.5) % Sodium (137-145) mmol/L Chloride (98-107) mmol/L Carbon Dioxide (22-30) mmol/L BUN (7-17) mg/dL Creatinine (0.52-1.04) mg/dL Glucose (74-99) mg/dL POC Glucose (mg/dL) 201 H 154 H 332 H (75-99) mg/dL Calcium (8.4-10.2) mg/dL 07/23/21 07/23/21 Range/Units 03:57 03:57 RBC 2.82 L (3.80-5.40) m/uL Hgb 8.5 L (11.4-16.0) gm/dL Hct 27.1 L (34.0-46.0) % RDW 16.0 H (11.5-15.5) % Sodium 135 L (137-145) mmol/L Chloride 97 L (98-107) mmol/L Carbon Dioxide 34 H (22-30) mmol/L BUN 21 H (7-17) mg/dL Creatinine 0.48 L (0.52-1.04) mg/dL Glucose 270 H (74-99) mg/dL POC Glucose (mg/dL) (75-99) mg/dL Calcium 7.8 L (8.4-10.2) mg/dL Microbiology - Last 24 Hours (Table) 07/21/21 09:15 Gram Stain - Preliminary Pleural Fluid Body Fluid Culture - Preliminary 07/21/21 09:15 Fungal Culture - Preliminary Pleural Fluid 07/21/21 09:15 Acid Fast Bacilli Culture - Preliminary Pleural Fluid
[2021-07-24] MEDS: HYDROcodone/APAP 10-325MG 1 EACH TAB PO PRN ×4 (04:07→21:52)
[2021-07-24 06:24] LABS: Glucose,Whole Blood 170 mg/dL (75-99)
[2021-07-24] MEDS: INSULIN ASPART (NovoLOG) 100 UNIT/ML VIAL SQ SCH ×4 (06:44→20:05)
[2021-07-24] MEDS: PANTOPRAZOLE 40 MG TABLET PO SCH (06:44)
[2021-07-24] MEDS ORDERED: INSULN ASP PRT/INSULIN ASPART 100 UNIT/ML 10 ML VIAL SQ SCH ×3 (07:30→17:30)
--- NOTE | 2021-07-24 08:13 | XR ---
EXAMINATION TYPE: XR chest 1V portable DATE OF EXAM: 07/24/2021 CLINICAL HISTORY: Postoperative CABG. TECHNIQUE: Single AP portable upright view of the chest is obtained. COMPARISON: Chest x-ray from one day earlier and older studies FINDINGS: Overlying sternal wires and mediastinal clips along with left atrial appendage clip are all redemonstrated. Persistent cardiomegaly with small to tiny bilateral pleural effusions and associated bibasilar opaci ties. Osseous structures remain intact. IMPRESSION: Cardiomegaly with small bilateral pleural effusions and associated bibasilar atelectasis and/or infiltrate all redemonstrated. No significant change from one day earlier.
[2021-07-24] MEDS: SYMBICORT 160-4.5 MCG INHALER INHALATION SCH ×2 (08:48→19:22)
[2021-07-24 08:49] LABS: Anisocytosis Slight; HCT 27.5 % (34.0-46.0); HGB 8.8 gm/dL (11.4-16.0); Hypochromasia Moderate; MCH 30.3 pg (25.0-35.0); MCV 94.7 fL (80.0-100.0); Mean Platelet Volume 7.4; Platelet Count 344 k/uL (150-450); RDW 16.1 % (11.5-15.5)
[2021-07-24] MEDS: IPRATROPIUM-ALBUTEROL 3 ML NEB INHALATION SCH ×4 (08:49→19:22)
[2021-07-24 09:02] LABS: African American GFR (CKD) >90 (>60 ml/min/1.73 sqM); Anion Gap 4 mmol/L; Blood Urea Nitrogen 17 mg/dL (7-17); Calcium 8.2 mg/dL (8.4-10.2); Carbon Dioxide 33 mmol/L (22-30); Chloride 99 mmol/L (98-107); Glucose 167 mg/dL (74-99); Non-African American GFR(CKD) >90 (>60 ml/min/1.73 sqM); Potassium 4.1 mmol/L (3.5-5.1); Sodium 136 mmol/L (137-145)
[2021-07-24] MEDS: INSULN ASP PRT/INSULIN ASPART 100 UNIT/ML 10 ML VIAL SQ SCH ×2 (09:06→18:00)
[2021-07-24] MEDS: FUROSEMIDE 20 MG TAB PO SCH (09:07)
[2021-07-24] MEDS: ASPIRIN 325 MG TAB PO SCH (09:07)
[2021-07-24] MEDS: DULoxetine HCL 30 MG CAPSULE.DR PO SCH (09:07)
[2021-07-24] MEDS: CLOPIDOGREL 75 MG TAB PO SCH (09:07)
[2021-07-24] MEDS: GABAPENTIN 100 MG CAP PO SCH ×2 (09:07→20:16)
[2021-07-24] MEDS: ATORVASTATIN 40 MG TAB PO SCH (09:07)
[2021-07-24] MEDS: ENOXAPARIN 40 MG/0.4 ML SYRINGE SQ SCH (09:07)
[2021-07-24] MEDS: METOPROLOL TARTRATE 50 MG TAB PO SCH ×2 (09:09→20:57)
--- NOTE | 2021-07-24 09:17 | P.PN ---
Subjective Progress Note Date: 07/24/21 Principal diagnosis: Multivessel coronary artery disease, non-ST elevated myocardial infarction this admission, acute on chronic systolic heart failure, bilateral pneumonia with pl eural effusions this admission. Past medical history significant for cardiomopathy, hypertension, hyperlipidemia, uncontrolled insulin-dependent diabetes mellitus with hyperglycemia and an admission glucose of 420, osteoarthritis, insomnia, degenerative disc disease, pneumonia, C. difficile, depression, fibromyalgia, chronic pain syndrome, current ongoing tobacco abuse, COPD, recent fall from standing with broken foot with non-weight bearing status, recent accidental overdose according to the patient, preoperative normocytic normochromic anemia. POD #12 triple vessel coronary artery bypass grafting using the left internal mammary artery sequentially in a [id number] fashion to the mid left anterior descending artery, then in an end to side fashion to the distal left anterior descending artery, reverse saphenous vein graft from the aorta to the first obtuse marginal artery, reverse saphenous vein graft from the aorta to the right coronary artery after the takeoff of the early arising posterior descending artery, exclusion of the left atrial appendage using a 35 mm AtriClip, sternal plating using the [place] system, harvesting of the right greater saphenous vein from the groin to above the ankle level, intraoperative transesophageal echocardiogram and epi-aortic scanning, intraoperative graft flow measurements using the [place] system Postoperative acute blood loss anemia and thrombocytopenia, expected outcomes given cardiopulmonary bypass pump and hemodilution as well as her preoperative anemia. Paroxysmal atrial fibrillation, a known common occurrence after cardiac surgery. Bilateral pleural effusions, status post right-sided thoracentesis with 1.3 L of pleural fluid drained on 07/21/2021 and left-sided thoracentesis with 900 ml of pleural fluid drained on 07/22/2021. The patient was seen in follow-up today 07/24/2021 at her bedside on the cardiac stepdown unit. Currently she is sitting up to the bedside chair, is awake, alert, oriented 3 and is in no acute apparent distress. Denies any complaints of pain or shortness of breath at this time. Her blood glucose was 495 mg/dL last evening and the patient reports she was snacking. Reinforced with the pa tient on the importance of good blood sugar control and promoting wound healing. Oxygen saturations are 93% on room air and she is achieving 8397-2740 mL on her incentive spirometry with encouragement. Remote telemetry showing normal sinus rhythm heart rate 85 BPM. The patient reports she did have a bowel movement last evening. Her T-max temperature in the last 24 hours is 99.1F. Pleural fluid cytology results remain pending. Discharge planning is in place, discharge instructions have been reviewed with the patient. She remains nonweightbearing to her left foot, physical and occupational therapy have been working with the patient with a walker. Objective - Vital Signs Vital signs: Vital Signs Temp 99.1 F 07/24/21 09:00 Pulse 86 07/24/21 09:01 Resp 18 07/24/21 09:00 BP 145/73 07/24/21 09:00 Pulse Ox 93 L 07/24/21 09:00 Intake & Output 07/23/21 07/24/21 07/24/21 18:59 06:59 18:59 Intake Total 930 0 Output Total 550 Balance 380 0 Intake: Oral 930 0 Output: Urine 550 Other: Voiding Method External Catheter External Catheter # Voids 0 1 # Bowel Movements 1 ABP, PAP, CO, CI - Last Documented Arterial Blood Pressure 68/53 Pulmonary Artery Pressure 26/10 Cardiac Output 4.3 Cardiac Index 2.8 - Exam CONSTITUTIONAL: Sitting up to the bedside chair on the cardiac stepdown unit, appears comfortable, cooperative, no apparent acute distress. HEENT: Neck is supple, no JVD, no lymphadenopathy. RESPIRATORY: Lungs sounds diminished throughout. Respirations are symmetrical and nonlabored. Currently on room air with oxygen saturations 93%. Able to achieve 6522-6653 mL on her incentive spirometry. Strong cough. CARDIOVASCULAR: Regular rhythm and rate. S1 and S2 present, negative for S3, gallop or murmur. Sternum is stable. Palpable peripheral pulses bilaterally, trace edema to her bilateral lower extremities. No calf pain or tenderness noted. Heart hugger in place with patient demonstrating appropriate use. Knee- high CHIO hose and sequential compression devices in place to her right lower extremity. GASTROINTESTINAL: Abdomen soft, nontender, nondistended. Active bowel sounds present 4 quadrants. Tolerating diet. Passing flatus. No guarding or rigidity. Bowel movement yesterday 07/23/2021. GENITOURINARY: Continues to void. Episodes of incontinence. INTEGUMENTARY: Skin is warm and dry with no evidence of clubbing or cyanosis. Midline sternal incision clean dry and well approximated, covered with dry intact dressing. Right lower extremity EVH site well approximated without redness or drainage. NEUROLOGIC: Cranial nerves II through XII intact. No focal deficits. MUSKULOSKELETAL: Able to move all extremities, strength equal bilaterally, generalized weakness, continues to have non-weightbearing status to her left foot. PSYCHIATRIC: Alert and oriented to person place and time, appropriate affect, intact judgment and insight. - Allied health notes Allied health notes reviewed: nursing - Labs CBC & Chem 7: 07/24/21 07:59 07/24/21 07:59 Labs: Abnormal Lab Results - Last 24 Hours (Table) 07/23/21 07/23/21 07/23/21 Range/Units 11:32 16:40 20:22 RBC (3.80-5.40) m/uL Hgb (11.4-16.0) gm/dL Hct (34.0-46.0) % RDW (11.5-15.5) % Sodium (137-145) mmol/L Carbon Dioxide (22-30) mmol/L Creatinine (0.52-1.04) mg/dL Glucose (74-99) mg/dL POC Glucose (mg/dL) 197 H 285 H 495 H (75-99) mg/dL Calcium (8.4-10.2) mg/dL 07/24/21 07/24/21 07/24/21 Range/Units 06:23 07:59 07:59 RBC 2.90 L (3.80-5.40) m/uL Hgb 8.8 L (11.4-16.0) gm/dL Hct 27.5 L (34.0-46.0) % RDW 16.1 H (11.5-15.5) % Sodium 136 L (137-145) mmol/L Carbon Dioxide 33 H (22-30) mmol/L Creatinine 0.51 L (0.52-1.04) mg/dL Glucose 167 H (74-99) mg/dL POC Glucose (mg/dL) 170 H (75-99) mg/dL Calcium 8.2 L (8.4-10.2) mg/dL Microbiology - Last 24 Hours (Table) 07/21/21 09:15 Acid Fast Bacilli Smear - Final Pleural Fluid Acid Fast Bacilli Culture - Preliminary 07/21/21 09:15 Gram Stain - Preliminary Pleural Fluid Body Fluid Culture - Preliminary - Imaging and Cardiology Chest x-ray: report reviewed, image reviewed Assessment and Plan Assessment: 1. Multivessel coronary artery disease, non-ST elevated myocardial infarction this admission, status post three-vessel CABG 2. Acute on chronic systolic heart failure, EF 30-35% 3. Bilateral pneumonia with pleural effusions this admission 4. History of cardiomopathy 5. Hypertension 6. Hyperlipidemia, treated, cholesterol 128, LDL 60 7. Uncontrolled insulin-dependent diabetes mellitus with hyperglycemia, h emoglobin AIc 10.2% 8. Current chronic ongoing tobacco abuse 9. Severe COPD with preoperative FEV1 48% of predicted 10. Recent fall from standing with broken left foot with non-weight bearing status 11. History of C. difficile 12. Depression 13. Fibromyalgia, chronic pain syndrome, osteoarthritis 14. Recent accidental overdose according to the patient 15. Preoperative normocytic, normochromic anemia, postoperative acute blood loss anemia and thrombocytopenia, expected 16. Continuing hypotension on low-dose pressors, expected, resolved off pressors 17. Paroxysmal atrial fibrillation, a known common occurrence after cardiac surgery 18. Bilateral pleural effusions, status post a right thoracentesis on 07/21/2021 and a left thoracentesis today 07/22/2021 Plan: 1. Continue aspirin, statin, Plavix, and beta aixa with hold parameters. Metoprolol tartrate will be increased to 50 mg by mouth twice a day 2. Continue Lasix 20 mg by mouth daily. 3. Encourage incentive spirometry use 10 times every hour while awake. Bronchodilators per pulmonology. 4. Increase activity as tolerated. PT/OT/cardiac rehab following. Patient will need rehab at discharge due to challenging ambulation with cast and non- weightbearing status to her left foot, plan is for [facility]. 5. Will monitor daily labs and chest x-rays. Electrolyte replacement per protocol. 6. Pain control with current medication regimen which is home regiment. 7. Insulin management per primary care service. Patient is an uncontrolled diabetic with preoperative hemoglobin A1c 10.2%. Patient will need tight blood sugar control to prevent infection and promote sternal healing. 8. Patient continues to void, with episodes of incontinence. May bladder scan and straight cath for >300 mL residual. Having episodes of incontinence. 9. Continue to record strict accurate intake and output. Daily weights 10. Dr. Carrillo wants patient to remain completely non-weight bearing to left l eg. 11. Reinforced with the patient the importance of following a cardiac consistent diet. 12. Continue Low-dose lisinopril 2.5 mg by mouth twice a day for afterload reduction. 13. Discharge planning is in place, anticipate discharge to [facility] within the next 24. 14. More recommendations to follow based on patient's clinical course. Time with Patient: Greater than 30
--- NOTE | 2021-07-24 10:46 | P.PN ---
Subjective Progress Note Date: 07/24/21 Patient is a 61-year-old female who underwent a three-vessel coronary artery bypass surgery on 07/12/2021. She has known cardiomyopathy with severe LV dysfunction. Patient is doing well this morning and free of symptoms. Patient to continue on aspirin, Lipitor, Plavix, Lasix, lisinopril, Lopressor. Patient is afebrile, with a blood pressure of 145/71, heart rate 86, and resp of 18 on room air. Labs today reveal hemoglobin 8.8, potassium 4.1, creatinine 0.51, magnesium 1.8. Patient is awaiting placement for rehab. Objective - Vital Signs Vital signs: Vital Signs Temp 99.1 F 07/24/21 09:00 Pulse 86 07/24/21 09:01 Resp 18 07/24/21 09:00 BP 145/73 07/24/21 09:00 Pulse Ox 93 L 07/24/21 09:00 Intake & Output 07/23/21 07/24/21 07/24/21 18:59 06:59 18:59 Intake Total 930 0 Output Total 550 Balance 380 0 Intake: Oral 930 0 Output: Urine 550 Other: Voiding Method External Catheter External Catheter External Catheter # Voids 0 1 # Bowel Movements 1 ABP, PAP, CO, CI - Last Documented Arterial Blood Pressure 68/53 Pulmonary Artery Pressure 26/10 Cardiac Output 4.3 Cardiac Index 2.8 - Exam PHYSICAL EXAM: VITAL SIGNS: Reviewed. GENERAL: Well-developed in no acute distress. HEENT: Head is normocephalic. Pupils are equal, round. Sclerae anicteric. Mucous membranes of the mouth are moist. NECK: Supple. No JVD or thyromegaly RESPIRATORY: Respirations even and unlabored. Lungs diminished to auscultation bilaterally. CARDIO: Regular rate and rhythm. S1 and S2 heard. No murmur or gallops. EXTREMITIES: Normal range of motion. No clubbing or cyanosis. Peripheral pulses intact. Negative for bilateral lower extremity edema, casted left lower extremity NEURO: Orientated to person, time, mood is appropriate - Labs CBC & Chem 7: 07/24/21 07:59 07/24/21 07:59 Labs: Abnormal Lab Results - Last 24 Hours (Table) 07/23/21 07/23/21 07/23/21 Range/Units 11:32 16:40 20:22 RBC (3.80-5.40) m/uL Hgb (11.4-16.0) gm/dL Hct (34.0-46.0) % RDW (11.5-15.5) % Sodium (137-145) mmol/L Carbon Dioxide (22-30) mmol/L Creatinine (0.52-1.04) mg/dL Glucose (74-99) mg/dL POC Glucose (mg/dL) 197 H 285 H 495 H (75-99) mg/dL Calcium (8.4-10.2) mg/dL 07/24/21 07/24/21 07/24/21 Range/Units 06:23 07:59 07:59 RBC 2.90 L (3.80-5.40) m/uL Hgb 8.8 L (11.4-16.0) gm/dL Hct 27.5 L (34.0-46.0) % RDW 16.1 H (11.5-15.5) % Sodium 136 L (137-145) mmol/L Carbon Dioxide 33 H (22-30) mmol/L Creatinine 0.51 L (0.52-1.04) mg/dL Glucose 167 H (74-99) mg/dL POC Glucose (mg/dL) 170 H (75-99) mg/dL Calcium 8.2 L (8.4-10.2) mg/dL Microbiology - Last 24 Hours (Table) 07/21/21 09:15 Acid Fast Bacilli Smear - Final Pleural Fluid Acid Fast Bacilli Culture - Preliminary 07/21/21 09:15 Gram Stain - Preliminary Pleural Fluid Body Fluid Culture - Preliminary Assessment and Plan Assessment: Coronary artery disease, status post coronary artery bypass grafting Severe Ischemic cardiomyopathy Plan: Continue all current cardiac medications Continue to increase level of activity as tolerated Patient has stable and clear for discharge
[2021-07-24 12:06] LABS: Glucose,Whole Blood 92 mg/dL (75-99)
[2021-07-24] MEDS: MAGNESIUM SULFATE-D5W PMX 1 GM in DEXTROSE/WATER 1 100ML.BAG IVPB SCH ×2 (12:28→15:59)
--- NOTE | 2021-07-24 14:16 | P.PN ---
Subjective Progress Note Date: 07/24/21 Acute non-ST elevation SC Status post cardiac catheterization revealing triple-vessel coronary artery disease Acute hypoxic respiratory failure Acute exacerbation systolic CHF Patient is a 61-year-old female came in the appearance of left-sided chest pain and also shortness of breath and patient the had a cast from her recent for for calcaneal fracture. Patient has EF of around 25-30% only on Aldactone at home it appears to be in a bit of heart failure with bilateral pleural effusion CT of the chest showed some infiltrate but no work program. Patient denied any cough. Patient had any fever chills. Patient is found to have mildly elevated troponin. Please refer to investigator operator documentation for EKG reading. Patient was evaluated by cardiology and they're recommending catheterization today. 07/11/2021 Patient is seen and evaluated sitting up in bedside chair; denies any complaint of chest pain or shortness of breath but does report feeling anxious about scheduled surgery tomorrow Vital signs are reviewed and remained stable; blood pressure at 122/62 Patient is status post cardiac catheterization which revealed severe triple vessel coronary artery disease; cardiothoracic surgery on board and CABG is planned for tomorrow Patient has been taken off lisinopril given planned surgery tomorrow morning; remains stable on rest of current medications 07/12/2021 Patient is seen and evaluated; denies any complaint of chest pain or shortness of breath; feels anxious and overwhelmed for upcoming surgery this morning Vital signs reveal temperature 98.2, pulse 87, respiration 19 and blood pressure 128/67 with O2 saturation 92% on 2 L Labs revealed WBC 6.2, hemoglobin 10.1, platelet count of 272, blood glucoses ranging between 142-177 Patient is scheduled for OR for CABG 07/13/2021 patient is status post CABG, POD #1, she had triple-vessel urinary artery bypass grafting. Did very well overnight, patient was extubated uneventfully, and at present seems to be doing well. She is only on 2 L nasal cannula, and O2 saturations 97%. Vital signs are reviewed temperature of 99.3, pulse 90, respirations 17 and blood pressure 149/80 Chest x-ray is showing minimal bibasilar opacity/atelectasis. Her indwelling tubes and catheters are unchanged. Clinically the patient is doing great, she is not requiring any inotropes or any pressors. A todd is achieving about 500 mL with her incentive spirometer. WBC count is 7.6 hemoglobin is 8. Her electrolytes are normal 07/14/2021 Patient is seen and evaluated sitting up in a bedside recliner; was successfully extubated yesterday Vital signs are reviewed and remained stable with a temperature of 98.5, pulse 71, respiration 15 and blood pressure of 9659 Thoracic surgery on board recommending to continue with aspirin, statin, Plavix and beta blockers with plans to increase beta aixa therapy as tolerated; patient will be started on low-dose herber for afterload reduction and blood pressure is more stable; continue with amiodarone for prophylactic prevention of atrial fibrillation Continue to increase activity; PT/OT/cardiac rehab 07/15/2021 patient is seen and evaluated in ICU; postoperative day #3; sitting in a recliner, on 2 L nasal cannula, does not seem to be in any distress. Reports fair pain control. She is in sinus rhythm, blood pressure is marginal and her urine output was noted to be a bit on the low side. She did receive a unit of packed RBCs yesterday for hemoglobin of 6.8. She is on a low dose of norepinephrine with minimal improvement in her blood pressure. But no significant improvement noted in urine output. Continues to have left-sided pleural chest tube in place. Lab review shows WBC of 9.0, hemoglobin 9.2, platelets of 135, sodium 136, potassium 3.9, BUN/creatinine of 2019/0.96 Chest x-ray showed mostly atelectasis at the bases, no evidence of congestive heart failure. Continue aspirin statins and Plavix as well as beta blockers; oral amiodarone. Continue pain control 07/16/2021 Patient is seen and evaluated and follow-up continues to be closely monitored in the ICU with multiple medical consultations following. Sugars have been elevated and patient normally takes 70/30 28 units twice daily and will add and continued sliding scale as well. Blood pressure running low and midodrine being increased. Oral amiodarone being discontinued. Chest xray today shows bibasilar opacities right greater than the left component of effusions with atelectasis. Encouraged incentive spirometer at least 10 times every hour while awake. Will be given a dose of lasix. Patient continues with left lower extremity cast and orthopedics consulted. Patient is non-weightbearing and will need continued PT/OT therapy. Social work following as well for possible rehab on discharge. 07/17/2021 Patient is seen in follow-up this morning stating she is not feeling well today. Patient is having some increased nausea and generalized weakness. Patient has zofran as needed and will add IV protonix bid. Blood sugars have been better controlled on current medication regimen and will continue. Patient to have cordis catheter removed. Podiatry consult pending for left lower extremity fracture. Patient continues to report discomfort to this area and temporary cast and herber wraps noted. Patient is currently non-weightbearing to the left lower extremity and unable to work with physical therapy because of the pain and unsteadiness and awaiting recommendations. Patient is more short of breath today and requiring 7L of 02 via NC. Chest ultrasound ordered. 07/18/2021 Patient is seen and evaluated in the ICU and is being closely monitored. Patient continues on 5L via NC and states that her oxygen saturations have been low and she denies any worsening shortness of breath. Patient is sitting up in the chair and currently receiving a breathing treatment. Patient does have history of COPD and states that she does not use inhalers or nebulizers for this. Patient denies oxygen use in the outpatient setting. Patient given IV lasix today. Patient does have incentive spirometer at the bedside and strongly encouraged to continue using at least 10 times every hour while awake. Blood sugars on the lower side and patient states she is eating and denies any further nausea today. 07/19/2021 Patient is evaluated this morning and continues to be closely monitored in the ICU. Patient is having increasing shortness of breath and has received another dose of IV Lasix as chest x-ray shows cardiomegaly with central vascular congestion and small to moderate size greater than left pleural effusions and associated basilar compressive atelectasis on the background chronic parenchymal changes are redemonstrated with no significant change from previous day. Patient is currently maintained on BiPAP at 50% and intermittently using high flow cannula at 15 L. Patient also experienced some atrial fibrillation with RVR and cardiology following closely. Patient is maintained on IV amiodarone along with metoprolol. 07/20/2021 Patient is seen and evaluated this morning in the ICU being closely monitored with multiple medical consultations including CT surgery, cardiology, pulmonary therapy assistant, and orthopedics evaluated the patient. Patient Does have a history of a fracture of the left calcaneus and Dr. Carrillo evaluated the patient. Patient has been followed in the outpatient setting for management of a Charcot joint disease and fracture of the left calcaneus and is currently maintained on a posterior splint and was awaiting a walker boot for the left lower extremity. She is to continue nonweightbearing of that left lower extremity and will follow with PT/OT therapy. She continues with low oxygen saturations and currently maintained on 15 L high flow and titrating as tolerated. Patient denies any worsening shortness of breath. Patient was also continued on breathing inhalational treatments and Mucomyst. Patient was also continued on NovoLog 70/30 at 25 units twice a day and continues to have low blood sugar readings in the mornings and will discontinue and continue just sliding scale. Patient not eating very much. Encouraged oral intake. 07/21/2021 Patient is seen in follow-up this morning continues to be in the ICU with multiple medical consultations following. Patient underwent thoracentesis this morning with approximately 1.5 L removed and fluid was sent for analysis by pulmonary services. She continues on 15 L high flow with oxygen saturations above 90%. Encouraged incentive spirometer at least 10 times every hour while awake. Encouraged increased activity with continued non-weightbearing of that left lower extremity. Blood sugars mildly elevated in the 180's-200s and will continue with sliding scale. Encouraged oral intake. 07/22/2021 Patient is seen this morning continues to be in the ICU and being closely monitored. Patient is status post thoracentesis on the right and awaiting for fluid culture analysis. Patient is status post left-sided thoracentesis today and removed approximately 900 mL fluid. Chest x-ray today shows no evidence of pneumothorax with diffuse interstitial densities in the right lung with partial consolidation in the right lung essentially unchanged to previous with a small left pleural effusion which appears less apparent compared to previous and no change in mild diffuse interstitial edema. Patient is to receive a dose of IV Lasix today. She continues with 6 L via nasal cannula and weaning as tolerated. Cardiology following as well and patient is currently sinus rhythm. 07/23/2021 Patient is seen in follow up this morning and continues in the ICU and awaiting transfer to the selective unit. Patient is status post thoracentesis of right then left and oxygen saturations much improved. Weaning FI02 as tolerated. patient is on daily lasix and will continue. Chest xray shows COPD with CHF and atelactasis. continue current medications and breathing inhalational treatments and IS encouragement. Blood sugars elevated and trending upward and will resume her 70/30 and adjust the dose along with sliding scale. ECF being planned today. 07/24/2021 Patient is seen in follow-up on selective awaiting authorization from insurance to go to ECF for continued weakness for strength and mobility. Cardiothoracic surgery following closely and will continue to follow during hospitalization. Patient's blood sugars continue to be elevated and have resumed patient's NovoLog 70/30 And will increase in monitor as needed. Recommend to continue s liding scale as well and Accu-Cheks before meals and at bedtime. Strongly encouraged consistent carb heart healthy diet with the patient. Patient is currently saturating at 93% on room air and denies any shortness of breath. Patient is afebrile. No reports of chest pain just tenderness at the surgical site. labs: WBC is 9.0, hemoglobin is 8.8, platelets are 344, sodium is 136, potassium 4.1, BUN is 17, creatinine 0.51, magnesium is 1.8. Review of systems: Constitutional: reports of fatigue, no reports of fever, or chills Cardiovascular: No reports of chest pain or palpitations Respiratory: no reports of worsening shortness of breath GI: No reports of nausea, vomiting, or diarrhea : No reports of dysuria or retention Neurovascular: reports of generalized weakness, left lower extremity pain All medications have been reviewed Active Medications Acetaminophen (Acetaminophen Tab 325 Mg Tab) 650 mg PO Q4HR PRN PRN Reason: Fever and/ or Pain Last Admin: 07/23/21 17:57 Dose: 650 mg Documented by: Hydrocodone Bitart/Acetaminophen (Hydrocodone/Apap 10-325mg 1 Each Tab) 1 each PO Q6HR PRN PRN Reason: Pain Last Admin: 07/24/21 09:10 Dose: 1 each Documented by: Albuterol/Ipratropium (Ipratropium-Albuterol 3 Ml Neb) 3 ml INHALATION RT-Q2H PRN PRN Reason: Shortness Of Breath Or Wheezing Albuterol/Ipratropium (Ipratropium-Albuterol 3 Ml Neb) 3 ml INHALATION RT-QID HORTENCIA Last Admin: 07/24/21 12:44 Dose: Not Given Documented by: Aspirin (Aspirin 325 Mg Tab) 325 mg PO DAILY [facility] Last Admin: 07/24/21 09:07 Dose: 325 mg Documented by: Atorvastatin Calcium (Atorvastatin 40 Mg Tab) 40 mg PO DAILY [facility] Last Admin: 07/24/21 09:07 Dose: 40 mg Documented by: Bisacodyl (Bisacodyl 10 Mg Supp) 10 mg RECTAL DAILY PRN PRN Reason: Constipation Budesonide/Formoterol Fumarate (Symbicort 160-4.5 Mcg Inhaler) 2 puff INHALATION RT-BID [facility] Last Admin: 07/24/21 08:48 Dose: 2 puff Documented by: Clopidogrel Bisulfate (Clopidogrel 75 Mg Tab) 75 mg PO DAILY [facility] Last Admin: 07/24/21 09:07 Dose: 75 mg Documented by: Duloxetine HCl (Duloxetine Hcl 30 Mg Capsule.Dr) 30 mg PO DAILY [facility] Last Admin: 07/24/21 09:07 Dose: 30 mg Documented by: Enoxaparin Sodium (Enoxaparin 40 Mg/0.4 Ml Syringe) 40 mg SQ DAILY [facility] Last Admin: 07/24/21 09:07 Dose: 40 mg Documented by: Furosemide (Furosemide 20 Mg Tab) 20 mg PO DAILY [facility] Last Admin: 07/24/21 09:07 Dose: 20 mg Documented by: Gabapentin (Gabapentin 100 Mg Cap) 100 mg PO DAILY [facility] Last Admin: 07/24/21 09:07 Dose: 100 mg Documented by: Gabapentin (Gabapentin 100 Mg Cap) 100 mg PO HS [facility] Last Admin: 07/23/21 21:47 Dose: 100 mg Documented by: Amiodarone HCl 150 mg/ (Dextrose/Water) 103 mls @ 618 mls/hr IV .Q10M PRN; Protocol PRN Reason: A.FIB/FLUTTER Last Admin: 07/19/21 08:30 Dose: 618 mls/hr Documented by: Amiodarone HCl 360 mg/ (Dextrose/Water) 207.2 mls @ 34.533 mls/hr IV .Q6H PRN; Protocol PRN Reason: A.FIB/FLUTTER Amiodarone HCl 450 mg/ (Dextrose/Water) 250 mls @ 16.667 mls/hr IV .Q15H PRN; Protocol PRN Reason: A.FIB/FLUTTER Insulin Aspart (Insulin Aspart (Novolog) 100 Unit/Ml Vial) 0 unit SQ ACHS [facility]; Protocol Last Admin: 07/24/21 12:17 Dose: Not Given Documented by: Insulin Aspart (Insuln Asp Prt/Insulin Aspart 100 Unit/Ml 10 Ml Vial) 20 unit SQ AC-BRKFST [facility] Last Admin: 07/24/21 09:06 Dose: 20 unit Documented by: Insulin Aspart (Insuln Asp Prt/Insulin Aspart 100 Unit/Ml 10 Ml Vial) 20 unit SQ -SUPPER [facility] Lisinopril (Lisinopril 2.5 Mg Tab) 2.5 mg PO BID [facility] Last Admin: 07/24/21 09:07 Dose: 2.5 mg Documented by: Magnesium Hydroxide (Magnesium Hydroxide 2,400 Mg/10 Ml Cup) 2,400 mg PO BID PRN PRN Reason: Constipation Last Admin: 07/16/21 14:34 Dose: 2,400 mg Documented by: Melatonin (Melatonin 3 Mg Tablet) 6 mg PO [facility] Last Admin: 07/23/21 21:58 Dose: 6 mg Documented by: Metoclopramide HCl (Metoclopramide 5 Mg/Ml 2 Ml Vial) 10 mg IVP Q4H PRN PRN Reason: Nausea And Vomiting Last Admin: 07/17/21 13:01 Dose: 10 mg Documented by: Metoprolol Tartrate (Metoprolol Tartrate 50 Mg Tab) 50 mg PO BID [facility] Last Admin: 07/24/21 09:09 Dose: 50 mg Documented by: Miscellaneous Information (Potassium Replacement Protocol 1 Each Misc) 1 each MISCELLANE DAILY PRN; Protocol PRN Reason: Per Protocol Miscellaneous Information (Magnesium Replacement Protocol 1 Each Misc) 1 each MISCELLANE DAILY PRN; Protocol PRN Reason: Per Protocol Miscellaneous Information (Phosphorus Replacement Protoco 1 Each Misc) 1 each MISCELLANE DAILY PRN; Protocol PRN Reason: Per Protocol Ondansetron HCl (Ondansetron 4 Mg/2 Ml Vial) 4 mg IVP Q6HR PRN PRN Reason: Nausea And Vomiting Pantoprazole Sodium (Pantoprazole 40 Mg Tablet) 40 mg PO AC-BRKFST [facility] Last Admin: 07/24/21 06:44 Dose: 40 mg Documented by: Senna/Docusate Sodium (Sennosides-Docusate Sodium 1 Each Tab) 2 each PO HS [facility] Last Admin: 07/23/21 21:48 Dose: 2 each Documented by: Sodium Chloride (Sodium Chloride 0.9% Flush 10 Ml Syringe) 10 ml IV BID HORTENCIA Last Admin: 07/24/21 09:09 Dose: 10 ml Documented by: Physical exam: Gen: This is a 61-year-old female awake, alert and oriented 3, well-developed, well-nourished. room air on exam HEENT: Head is atraumatic, normocephalic. Pupils equal, round. Sclerae is anicteric. NECK: Supple. No JVD. No lymphadenopathy. No thyromegaly. LUNGS: diminished breath sounds bilaterally with No wheezes and some scattered rhonchi noted. No intercostal retractions. HEART: S1, S2 muffled. ABDOMEN: Soft. Bowel sounds are present. No masses. No tenderness. EXTREMITIES: No pedal edema. No calf tenderness. NEUROLOGICAL: Patient is awake, alert and oriented x3. Cranial nerves 2 through 12 are grossly intact. diffusely weak Assessment: -Acute non-ST elevation myocardial infarction: Patient is status post cardiac catheterization triple-vessel disease CABG -Acute hypoxic respiratory failure secondary to congestive heart failure chronic systolic dysfunction with acute exacerbation -Status post thoracentesis for right pleural effusion -Status post thoracentesis for left pleural effusion -Continued ongoing Nicotine use: Counseling was provided -COPD, not in acute exacerbation -Type 2 diabetes mellitus, uncontrolled with hyperglycemia and hypoglycemia -Hyperlipidemia -hypervolemic hyponatremia -hypertension, currently hypotensive -Charcot's foot disease with left calcaneus fracture status post fall with partial casting and was being followed with Dr. Carrillo in the outpatient setting awaiting specialty boot -GI prophylaxis -DVT prophylaxis -Full code Plan: Recommend to continue with current medications and management. Patient being followed closely by CT surgery along with cardiology and pulmonary. Recommend to continue with current sliding scale and Accu-Cheks before meals and resumed 70/30 and monitor closely. Will increase doses of 70/30 and again stressed the importance of following strict diet with the patient. Encouraged consistent carb diet. Patient is maintained on heart healthy consistent carb diet. Patient encouraged continued incentive spirometer use and increase exercise as tolerated. patient is currently sitting up in the chair comfortably on room air and oxygen saturation is 94%. Patient is status post thoracentesis recently. Awaiting fluid analysis. Recommend to continue with breathing inhalational treatments. Due to multiple complex medical issues, prognosis is guarded. CT surgery planning on discharging patient to [facility] once authorization from insurance obtained. Continue to follow during hospitalization. Objective - Vital Signs Vital signs: Vital Signs Temp 98.5 F 07/24/21 03:24 Pulse 86 07/24/21 08:49 Resp 18 07/24/21 03:24 BP 112/62 07/24/21 03:24 Pulse Ox 90 L 07/24/21 03:24 Intake & Output 07/23/21 07/24/21 07/24/21 18:59 06:59 18:59 Intake Total 930 0 Output Total 550 Balance 380 0 Intake: Oral 930 0 Output: Urine 550 Other: Voiding Method External Catheter External Catheter # Voids 0 1 # Bowel Movements 1 ABP, PAP, CO, CI - Last Documented Arterial Blood Pressure 68/53 Pulmonary Artery Pressure 26/10 Cardiac Output 4.3 Cardiac Index 2.8 - Labs CBC & Chem 7: 07/24/21 07:59 07/24/21 07:59 Labs: Abnormal Lab Results - Last 24 Hours (Table) 07/23/21 07/23/21 07/23/21 Range/Units 11:32 16:40 20:22 RBC (3.80-5.40) m/uL Hgb (11.4-16.0) gm/dL Hct (34.0-46.0) % RDW (11.5-15.5) % POC Glucose (mg/dL) 197 H 285 H 495 H (75-99) mg/dL 07/24/21 07/24/21 Range/Units 06:23 07:59 RBC 2.90 L (3.80-5.40) m/uL Hgb 8.8 L (11.4-16.0) gm/dL Hct 27.5 L (34.0-46.0) % RDW 16.1 H (11.5-15.5) % POC Glucose (mg/dL) 170 H (75-99) mg/dL Microbiology - Last 24 Hours (Table) 07/21/21 09:15 Acid Fast Bacilli Smear - Final Pleural Fluid Acid Fast Bacilli Culture - Preliminary 07/21/21 09:15 Gram Stain - Preliminary Pleural Fluid Body Fluid Culture - Preliminary
--- NOTE | 2021-07-24 15:23 | P.PN ---
Subjective Progress Note Date: 07/24/21 On 07/23/2021 patient seen in follow-up in intensive care unit, today is postoperative day #11 status post triple coronary artery bypass grafting, occlusion of the left atrial appendage, his sternal plating using the [employer] tritium system. She is post right-sided thoracentesis by Dr. Ritter, and a total of 1.3 L of fluid and left-sided thoracentesis with removal of 900 mL of pleural fluid. Chest x-ray after the procedure shows no change in mild diffuse interstitial edema, right lower lobe opacity, and small left pleural effusion. Clinically she states she is breathing much easier, she is currently down to 8 L of oxygen pulse ox is 95%, which was further decreased to 6 L. She is in sinus mechanism . She did not use BiPAP support last night. Her chest tubes have been discontinued, incisions are clean dry and intact. Her blood work from today shows a white blood cell count of 5.4, hemoglobin of 8.6, sodium was 134, potassium is 4.2, chloride was 98, CO2 31, B1 is 27 creatinine 0.5. Lung sounds revealed bibasilar crackles, patient has been encouraged to work on her incentive spirometer. She is achieving 1 L on the today. She has not had recurrence of atrial fibrillation in the last 24 hours. She has been nonweightbearing on her left leg in the left leg remains in the splint. She has been participating with physical therapy. His evaluation, the patient is on oxygen at room air her pulse ox is around 91%. The chest x-ray was repeated this morning and it shows improvement in the volume status. Noted the patient is undergone bilateral thoracentesis. There is some residual pleural effusion and the left lung base along with some small amount of fluid in the right. There is some post thoracotomy changes. No evidence of any pneumothorax. Blood work from today shows a white cell count of 5.6 with a hemoglobin 8.6, platelets at 258, normal renal function, sodium level is at 135, potassium level is at 4.0. Medications include Lasix 20 mg oral on a daily basis. The cardiac rhythm is sinus and the patient is currently on aspirin, Plavix, and she is on Lopressor 25 mg by mouth twice a day. She is on high-dose statins. She is using incentive spirometer. Approximately 1200 . Urine output is adequate and the patient has no Valencia catheter in place. Surgical wound site over the sternum is dry clean and intact. 07/24/2021, the patient is postop day #12 following her coronary bypass surgery. She is doing well. I repeated the chest x-ray today and the patient small bilateral pleural effusions which is not affecting her breathing and the patient is currently on room air oxygen. Cardiac rhythm is sinus and the patient is on Lasix 20 mg by mouth daily. The plan is to [facility] this [facility]. She has a fractured left lower extremity and the patient is unable to bear any weight on her left leg. No chest pain. Surgical is as documented and intact and the patient continued to use her incentive spirometer and she is on a Lovenox for DVT prophylaxis. She continues to be on aspirin. She is also on Plavix. She is on beta blockers with metoprolol 50 minutes by mouth twice a day. She is also on NovoLog 7030 mix 20 units twice a day. On her blood work today, the white cell count is at 9 with a hemoglobin 8.8, BUN is at 70 with a creatinine of 0.7 the sodium level is at 136. Objective - Vital Signs Vital signs: Vital Signs Temp 98.8 F 07/24/21 12:27 Pulse 90 07/24/21 12:27 Resp 18 07/24/21 12:27 BP 130/75 07/24/21 12:27 Pulse Ox 93 L 07/24/21 12:27 Intake & Output 07/23/21 07/24/21 07/24/21 18:59 06:59 18:59 Intake Total 930 118 Output Total 550 Balance 380 118 Intake: Oral 930 118 Output: Urine 550 Other: Voiding Method External Catheter External Catheter External Catheter # Voids 0 1 # Bowel Movements 1 ABP, PAP, CO, CI - Last Documented Arterial Blood Pressure 68/53 Pulmonary Artery Pressure 26/10 Cardiac Output 4.3 Cardiac Index 2.8 - Exam GENERAL EXAM: Alert, pleasant, 61-year-old white female, sitting up in the recliner, currently on RA , comfortable in no apparent distress. HEAD: Normocephalic/atraumatic. EYES: Normal reaction of pupils, equal size. Conjunctiva pink, sclera white. NOSE: Clear with pink turbinates. THROAT: No erythema or exudates. NECK: No masses, no JVD, no thyroid enlargement, no adenopathy. CHEST: No chest wall deformity. Symmetrical expansion. Midsternal incision is clean dry and intact, chest tube sites are clean dry and intact, interval removal of chest tubes, LUNGS: Equal air entry with no crackles, wheeze, rhonchi or dullness. CVS: Regular rate and rhythm, normal S1 and S2, no gallops, no murmurs, no rubs ABDOMEN: Soft, nontender. No hepatosplenomegaly, normal bowel sounds, no guarding or rigidity. EXTREMITIES: No clubbing, no edema, no cyanosis, 2+ pulses and upper and lower extremities. Left lower extremity incision is covered with surgical dressing, SCDs on bilateral legs MUSCULOSKELETAL: Muscle strength and tone normal. SPINE: No scoliosis or deformity SKIN: No rashes CENTRAL NERVOUS SYSTEM: Alert and oriented -3. No focal deficits, tone is normal in all 4 extremities. PSYCHIATRIC: Alert and oriented -3. Appropriate affect. Intact judgment and insight. - Labs CBC & Chem 7: 07/24/21 07:59 07/24/21 07:59 Labs: Abnormal Lab Results - Last 24 Hours (Table) 07/23/21 07/23/21 07/24/21 Range/Units 16:40 20:22 06:23 RBC (3.80-5.40) m/uL Hgb (11.4-16.0) gm/dL Hct (34.0-46.0) % RDW (11.5-15.5) % Sodium (137-145) mmol/L Carbon Dioxide (22-30) mmol/L Creatinine (0.52-1.04) mg/dL Glucose (74-99) mg/dL POC Glucose (mg/dL) 285 H 495 H 170 H (75-99) mg/dL Calcium (8.4-10.2) mg/dL 07/24/21 07/24/21 Range/Units 07:59 07:59 RBC 2.90 L (3.80-5.40) m/uL Hgb 8.8 L (11.4-16.0) gm/dL Hct 27.5 L (34.0-46.0) % RDW 16.1 H (11.5-15.5) % Sodium 136 L (137-145) mmol/L Carbon Dioxide 33 H (22-30) mmol/L Creatinine 0.51 L (0.52-1.04) mg/dL Glucose 167 H (74-99) mg/dL POC Glucose (mg/dL) (75-99) mg/dL Calcium 8.2 L (8.4-10.2) mg/dL Microbiology - Last 24 Hours (Table) 07/21/21 09:15 Gram Stain - Preliminary Pleural Fluid Body Fluid Culture - Preliminary 07/21/21 09:15 Acid Fast Bacilli Smear - Final Pleural Fluid Acid Fast Bacilli Culture - Preliminary Assessment and Plan Plan: #1. Multivessel coronary artery disease, status post quadruple coronary artery bypass grafting with SY sequentially to the mid LAD, to the distal LAD, reverse SVG to the first OM, reverse SVG to the RCA, exclusion of the left atrial appendage using a 35mm ATriClip, sternal plating using the [employer] system, harvesting of the right greater saphenous vein, and intraoperative MARLY and the peak aortic scanning, on 07/12/2021, post op day #11 2020 #2. Acute hypoxic respiratory failure related to atelectasis on bibasilar pleural effusions, status post right-sided thoracentesis on the 07/21/2021 with removal of 1.3 L of fluid, and left-sided thoracentesis on 07/22/2021 with removal of 900 mL of fluid currently on room air oxygen #3. Hypotension, postoperative, multifactorial, related to acute blood loss anemia, history of ischemic cardiomyopathy with EF of 30-35%, expected outcome of multivessel coronary artery bypass grafting surgery, resolved #4. Acute non-ST elevated myocardial infarction this admission #5. Ischemic cardiomyopathy with EF of 30-35% #6. Acute hypoxic respiratory failure related to atelectasis and bibasilar pleural effusions, improving #7. Hypertension #8. Hyperlipidemia #9. Severe COPD with preoperative FEV1 of 40% of predicted #10. Recent fall sustaining injury to her left foot, with soft tissue edema about the ankle, but no fracture or dislocation to the ankle or the left foot #11. Chronic systolic CHF #12. Depression #13. Osteoarthritis #14. History of tobacco dependence, in remission just since before admission #15 left lower extremity fracture, nonweightbearing at this point splinted Plan: Chest x-ray from today shows small bilateral pleural effusion Previous thoracenteses indicated that has day fluid Continue oral Lasix Continue cardiac medications including aspirin and Plavix and beta blockers Physical therapy consultation Continue NovoLog 7030 mix regarding diabetes mellitus Going to [facility] today
[2021-07-24 16:50] LABS: Glucose,Whole Blood 126 mg/dL (75-99)
[2021-07-24] MEDS: ACETAMINOPHEN TAB 325 MG TAB PO PRN (19:59)
[2021-07-24 20:08] LABS: Glucose,Whole Blood 93 mg/dL (75-99)
[2021-07-24] MEDS: MELATONIN 3 MG TABLET PO SCH (20:16)
[2021-07-24] MEDS: SENNOSIDES-DOCUSATE SODIUM 1 EACH TAB PO SCH (20:17)
[2021-07-25] MEDS: HYDROcodone/APAP 10-325MG 1 EACH TAB PO PRN ×2 (03:52→10:46)
[2021-07-25 06:39] LABS: Glucose,Whole Blood 90 mg/dL (75-99)
[2021-07-25] MEDS: PANTOPRAZOLE 40 MG TABLET PO SCH (06:39)
[2021-07-25] MEDS: INSULIN ASPART (NovoLOG) 100 UNIT/ML VIAL SQ SCH ×2 (06:39→12:03)
--- NOTE | 2021-07-25 07:28 | XR ---
EXAMINATION TYPE: XR chest 1V portable DATE OF EXAM: 07/25/2021 COMPARISON: 07/24/2021 HISTORY: Post CABG TECHNIQUE: Single frontal view of the chest is obtained. FINDINGS: Heart size is prominent is bilateral infiltrate and pleural effusion. Coarsened interstiti um. No pneumothorax. Underlying COPD suspected. Diffuse osteopenia and arthropathy of the shoulders. IMPRESSION: 1. Postoperative change correlate for mild venous congestion with bilateral infiltrate and small effu denise.
[2021-07-25] MEDS: SYMBICORT 160-4.5 MCG INHALER INHALATION SCH (08:29)
[2021-07-25] MEDS: IPRATROPIUM-ALBUTEROL 3 ML NEB INHALATION SCH ×2 (08:29→12:10)
[2021-07-25 08:33] LABS: HCT 28.1 % (34.0-46.0); HGB 8.7 gm/dL (11.4-16.0); Hypochromasia Marked; MCH 29.5 pg (25.0-35.0); MCHC 30.9 g/dL (31.0-37.0); MCV 95.5 fL (80.0-100.0); Mean Platelet Volume 7.5; Platelet Count 322 k/uL (150-450); RBC 2.95 m/uL (3.80-5.40); RDW 15.9 % (11.5-15.5)
[2021-07-25 08:49] LABS: African American GFR (CKD) >90 (>60 ml/min/1.73 sqM); Anion Gap 4 mmol/L; Blood Urea Nitrogen 18 mg/dL (7-17); Calcium 8.1 mg/dL (8.4-10.2); Carbon Dioxide 32 mmol/L (22-30); Chloride 99 mmol/L (98-107); Glucose 91 mg/dL (74-99); Magnesium 2.1 mg/dL (1.6-2.3); Non-African American GFR(CKD) >90 (>60 ml/min/1.73 sqM); Potassium 4.6 mmol/L (3.5-5.1); Sodium 135 mmol/L (137-145)
[2021-07-25] MEDS: DULoxetine HCL 30 MG CAPSULE.DR PO SCH (09:18)
[2021-07-25] MEDS: ENOXAPARIN 40 MG/0.4 ML SYRINGE SQ SCH (09:18)
[2021-07-25] MEDS: ASPIRIN 325 MG TAB PO SCH (09:18)
[2021-07-25] MEDS: GABAPENTIN 100 MG CAP PO SCH (09:18)
[2021-07-25] MEDS: ATORVASTATIN 40 MG TAB PO SCH (09:18)
[2021-07-25] MEDS: FUROSEMIDE 20 MG TAB PO SCH (09:18)
[2021-07-25] MEDS: METOPROLOL TARTRATE 50 MG TAB PO SCH (09:18)
[2021-07-25] MEDS: CLOPIDOGREL 75 MG TAB PO SCH (09:18)
[2021-07-25 11:05] VITALS: TEMP 97.8
[2021-07-25 11:22] LABS: Glucose,Whole Blood 163 mg/dL (75-99)
--- NOTE | 2021-07-25 11:27 | P.PN ---
Subjective Progress Note Date: 07/25/21 Patient is a 61-year-old female who underwent a three-vessel coronary artery bypass surgery on 07/12/2021 post op day 13. She has known cardiomyopathy with severe LV dysfunction. Patient is examined today resting in bed, she is doing well this morning and free of symptoms. Patient to continue on aspirin, Lipitor, Plavix, Lasix, lisinopril, Lopressor. Patient is afebrile, with a blood pressure of 120/77, heart rate 78, and resp of 18 on room air. Labs today reveal hemoglobin 8.7, potassium 4.6, creatinine 0.51, magnesium 2.1. Patient is awaiting placement for rehab, plan to go to today. Objective - Vital Signs Vital signs: Vital Signs Temp 97.8 F 07/25/21 09:02 Pulse 78 07/25/21 09:02 Resp 18 07/25/21 09:02 BP 120/77 07/25/21 09:02 Pulse Ox 97 07/25/21 09:02 Intake & Output 07/24/21 07/25/21 07/25/21 18:59 06:59 18:59 Intake Total 236 240 Balance 236 240 Weight 45.5 kg Intake: Oral 236 240 Other: Voiding Method External Catheter External Catheter ABP, PAP, CO, CI - Last Documented Arterial Blood Pressure 68/53 Pulmonary Artery Pressure 26/10 Cardiac Output 4.3 Cardiac Index 2.8 - Exam PHYSICAL EXAM: VITAL SIGNS: Reviewed. GENERAL: Well-developed in no acute distress. HEENT: Head is normocephalic. Pupils are equal, round. Sclerae anicteric. Mucous membranes of the mouth are moist. NECK: Supple. No JVD or thyromegaly RESPIRATORY: Respirations even and unlabored. Lungs diminished to auscultation bilaterally. CARDIO: Regular rate and rhythm. S1 and S2 heard. No murmur or gallops. EXTREMITIES: Normal range of motion. No clubbing or cyanosis. Peripheral pulses intact. Negative for bilateral lower extremity edema, casted left lower extremity NEURO: Orientated to person, time, mood is appropriate - Labs CBC & Chem 7: 07/25/21 07:08 07/25/21 07:08 Labs: Abnormal Lab Results - Last 24 Hours (Table) 07/24/21 07/25/21 07/25/21 Range/Units 16:48 07:08 07:08 RBC 2.95 L (3.80-5.40) m/uL Hgb 8.7 L (11.4-16.0) gm/dL Hct 28.1 L (34.0-46.0) % MCHC 30.9 L (31.0-37.0) g/dL RDW 15.9 H (11.5-15.5) % Sodium 135 L (137-145) mmol/L Carbon Dioxide 32 H (22-30) mmol/L BUN 18 H (7-17) mg/dL Creatinine 0.51 L (0.52-1.04) mg/dL POC Glucose (mg/dL) 126 H (75-99) mg/dL Calcium 8.1 L (8.4-10.2) mg/dL 07/25/21 Range/Units 11:20 RBC (3.80-5.40) m/uL Hgb (11.4-16.0) gm/dL Hct (34.0-46.0) % MCHC (31.0-37.0) g/dL RDW (11.5-15.5) % Sodium (137-145) mmol/L Carbon Dioxide (22-30) mmol/L BUN (7-17) mg/dL Creatinine (0.52-1.04) mg/dL POC Glucose (mg/dL) 163 H (75-99) mg/dL Calcium (8.4-10.2) mg/dL Microbiology - Last 24 Hours (Table) 07/21/21 09:15 Gram Stain - Preliminary Pleural Fluid Body Fluid Culture - Preliminary Assessment and Plan Assessment: Coronary artery disease, status post coronary artery bypass grafting Severe Ischemic cardiomyopathy Plan: Continue all current cardiac medications Continue to increase level of activity as tolerated Patient has stable and clear for discharge
[2021-07-25 11:48] VITALS: BP 109/43
--- NOTE | 2021-07-25 13:02 | P.DS ---
Providers Date of admission: 07/07/21 23:34 Expected date of discharge: 07/25/21 Attending physician: Patrice Olvera Consults: 07/07/21 23:35 Consult Physician Urgent Consulting Provider: [facility] Consult Reason/Comments: abn ekg, nstemi, aechf Do you want consulting provider notified?: Already Contacted 07/09/21 12:05 Consult Physician Routine Consulting Provider: Patrice Olvera Consult Reason/Comments: Triple Vessel Disease Do you want consulting provider notified?: Yes 07/10/21 11:43 Consult Physician Routine Consulting Provider: Micky Doherty Consult Reason/Comments: Preoperative cardiac surgery Do you want consulting provider notified?: Yes 07/11/21 08:00 Consult to Anesthesia Routine Consulting Provider: Anesthesia,Services Consult Reason/Comments: Cardiac Surgery Pre-Op 07/12/21 15:25 Consult Physician Routine Consulting Provider: John Allen Consult Reason/Comments: med mgmt Do you want consulting provider notified?: Already Contacted 07/16/21 09:08 Consult Physician Routine Consulting Provider: Vinny Carrillo Consult Reason/Comments: fx to left foot; recs for weightbearing status;known to you Do you want consulting provider notified?: Yes Primary care physician: [facility] Course: FINAL DIAGNOSIS: 1. Multivessel coronary artery disease, non-ST elevated myocardial infarction this admission, status post three-vessel CABG 2. Acute on chronic systolic heart failure, EF 30-35% 3. Bilateral pneumonia with preoperative pleural effusions this admission 4. History of cardiomopathy 5. Hypertension 6. Hyperlipidemia, treated, cholesterol 128, LDL 60 7. Uncontrolled insulin-dependent diabetes mellitus with hyperglycemia, hemoglobin AIc 10.2% 8. Current chronic ongoing tobacco abuse 9. Severe COPD with preoperative FEV1 48% of predicted 10. Recent fall from standing with fractured left foot with non-weight bearing status 11. History of C. difficile 12. Depression 13. Fibromyalgia, chronic pain syndrome, osteoarthritis, with chronic opioid use with Liver[place] and Neurontin 14. Recent accidental overdose according to the patient 15. Preoperative normocytic, normochromic anemia, postoperative acute blood loss anemia and thrombocytopenia, expected 16. Hypotension, resolved 17. Paroxysmal atrial fibrillation, a known common occurrence after cardiac surgery 18. Bilateral pleural effusions, status post a right thoracentesis on 07/21/2021 and a left thoracentesis today 07/22/2021 PRINCIPAL PROCEDURE: 1. Triple-vessel coronary artery bypass grafting using the left internal mammary artery sequentially in a side to side fashion to the mid left anterior ascending coronary artery, then in an end-to-side fashion to the distal left anterior descending coronary artery, a reverse greater saphenous vein graft from the aorta to the first obtuse marginal coronary artery, and a reverse greater saphenous vein graft from the aorta to the right coronary artery after the takeoff of the early arising posterior descending coronary artery. 2. Exclusion of the left atrial appendage using a 35 mm Atriclip. 3. Sternal plating using the Thatcher system. 4. Harvesting of the right greater saphenous vein from the groin to above the ankle level. 5. Intraoperative transesophageal echocardiogram. 6. Intraoperative epi-aortic scanning. 7. Intraoperative graft flow measurements using the [employer] system. HISTORY OF PRESENT ILLNESS: This is a 61-year-old female patient who is followed by Dr. Scott Marcos on an outpatient basis for her primary care service. She presented to the emergency department here at [facility] on 07/07/2021 with complaints of shortness of breath, lower back pain and chest tightness and a recent history of fall from standing. Initial laboratory results showed a WBC count of 9.1, hemoglobin 13.5, hematocrit 42.7, platelets 394, d-dimer 1.68, sodium 135, potassium 4.3, BUN 11, creatinine 0.35, blood glucose 420, calcium 8.7, magnesium 1.7 and positive serial troponins as high as 0.090. Her Coronavirus PCR showed not detected. A chest x-ray was completed which showed bilateral lower lobe pneumonia and pleural fluid. A CT angiogram of her chest was completed due to her presenting symptoms and elevated d-dimer which showed no evidence for acute pulmonary embolism, bilateral lower lobe pneumonia, atelectasis, moderate bilateral pleural effusions, chronic congestive heart failure and a new mediastinal adenopathy which was compared to her old exam. A 12-lead EKG was completed which showed sinus tachycardia with ST and T wave abnormality to her inferior leads with a heart rate of 121 BPM. Due to the patient's presenting symptoms, and elevated troponins Dr. Watson from cardiology was consulted and the patient subsequently underwent a transthoracic 2-D echocardiogram and a cardiac catheterization. On 07/08/2021 her transthoracic 2-D echocardiogram showed an overall left ventricular systolic function to be moderate to severely impaired with an ejection fraction between 30 and 35%, mild mitral annular calcification, mild tricuspid valve regurgitation, a small generalized pericardial effusion and a large pleural effusion. Her heart catheterization demonstrated a chronically occluded distal right coronary artery which fills by collaterals from the left coronary system, a 70-80% stenosis to her proximal left circumflex coronary artery, an 80-90% stenosis to her obtuse marginal coronary artery, an 80-90% stenosis to her circumflex coronary artery before continues in the AV groove, a 60% stenosis to her first diagonal coronary artery, a 70% stenosis to her mid left anterior descending coronary artery and an 80-90% stenosis to her distal left anterior descending coronary artery. Subsequently, due to the patient's presenting symptoms, and findings on her above-mentioned studies a consult was placed to Dr. Patrice Olvera from cardiothoracic surgery for further evaluation and treatment recommendations including myocardial revascularization surgery. Dr. Olvera met with the patient, discussed treatment options including myocardial revascularization surgery. Risks and benefits of surgery including the STS risk score were discussed with the patient and knowing and understanding these risks the patient wished to proceed with myocardial revascularization surgery. HOSPITAL COURSE: The patient was admitted to the hospital and on 07/12/2021 the patient was taken to the operating room where she underwent a triple vessel coronary artery bypass grafting using the left internal mammary artery sequentially in a side to side fashion to the mid left anterior ascending coronary artery, then in an end-to-side fashion to the distal left anterior descending coronary artery, a reverse greater saphenous vein graft from the aorta to the first obtuse marginal coronary artery, and a reverse greater saphenous vein graft from the aorta to the right coronary artery after the takeoff of the early arising posterior descending coronary artery, exclusion of the left atrial appendage using a 35 mm Atriclip, sternal plating using the Thatcher, harvesting of the right greater saphenous vein from the groin to above the ankle level, intraoperative transesophageal echocardiogram, epi-aortic scanning and graft flow measurements using the [employer] system. Upon completion of the surgery the patient was transferred to the cardiovascular intensive care unit where she was recovered, and monitored hemodynamically. She was extubated, all lines, tubes and supportive drips were discontinued when appropriate and she was transferred to the third floor cardiac stepdown unit for further monitoring and rehabilitation. Her oxygen was titrated down, she continued to work with physical and occupational therapy, she was tolerating oral diet, her pain was well-controlled on her current pain medication regimen, and she was ready to be discharged to [facility] on postoperative day #13. She did have some postoperative atrial fibrillation which was self-limiting and is currently in normal sinus rhythm. She also had some bilateral effusions requiring bilateral thoracentesis with a right thoracentesis on 07/21/2021 with 1.3 L of pleural fluid drained and a left thoracentesis on 07/22/2021 with 900 mL of pleural fluid drained. The patient has been nonweightbearing on her left foot per instructions by Dr. Carrillo from podiatry who is been following her fractured left foot, although has continued to work with physical and occupational therapy. She has received written and verbal instructions regarding her pain medications, activity restrictions, signs and symptoms requiring physician on occasion and her follow-up appointments. The importance of risk modification including smoking cessation has been reinforced with the patient. Due to her being discharged home on her home dose of Livermore and Neurontin and opioid start talking form was obtained from the patient and discussed. Patient Condition at Discharge: Stable Plan - Discharge Summary Discharge Rx Participant: No New Discharge Prescriptions: New Aspirin 325 mg PO DAILY tab bisacodyL [Dulcolax] 10 mg RECTAL DAILY PRN supp PRN Reason: Constipation Ipratropium-Albuterol Nebulize [Duoneb 0.5 mg-3 mg/3 ml Soln] 3 ml INHALATION RT-QID ml Furosemide [Lasix] 20 mg PO DAILY tab Sennosides-Docusate Sodium [Senokot-S] 2 each PO HS tab lisinopriL [Zestril] 2.5 mg PO BID tab Insuln Asp Prt/Insulin Aspart [NovoLOG MIX 70-30 VIAL] 20 unit SQ AC-SUPPER ml Ipratropium-Albuterol Nebulize [Duoneb 0.5 mg-3 mg/3 ml Soln] 3 ml INHALATION RT-Q2H PRN ml PRN Reason: Shortness Of Breath Or Wheezing Atorvastatin [Lipitor] 40 mg PO DAILY tab Enoxaparin [Lovenox] 40 mg SQ DAILY each Melatonin 6 mg PO HS tablet Magnesium Hydroxide [Milk of Magnesia Concentrate] 2,400 mg PO BID PRN ml PRN Reason: Constipation Clopidogrel [Plavix] 75 mg PO DAILY tab Budesonide-Formot 160-4.5 Mcg [Symbicort 160-4.5 Mcg Inhaler] 2 puff INHALATION RT-BID gm Acetaminophen Tab [Tylenol] 650 mg PO Q4HR PRN tab PRN Reason: Fever And/ Or Pain Metoprolol Tartrate [Lopressor] 50 mg PO BID tab Insuln Asp Prt/Insulin Aspart [NovoLOG MIX 70-30 VIAL] 20 unit SQ AC-BRKFST ml Continue DULoxetine HCL [Cymbalta] 30 mg PO DAILY metFORMIN HCL [Glucophage] 1,000 mg PO BID Gabapentin [Neurontin] 200 mg PO HS #3 cap Pantoprazole Sodium 40 mg PO DAILY Gabapentin [Neurontin] 100 mg PO DAILY #3 cap HYDROcodone/APAP 10-325MG [Livermore 10-325] 1 tab PO Q6H PRN #6 tab PRN Reason: Pain Discontinued hydrOXYzine HCL [Atarax] 25 - 50 mg PO HS PRN PRN Reason: SLEEP Magnesium Oxide 400 mg PO AC-BID #60 tablet Spironolactone [Aldactone] 25 mg PO DAILY #0 tab Furosemide [Lasix] 40 mg PO DAILY tab Nystatin 100,000Unit/gm Cream [Mycostatin Cream] 1 applic TOPICAL BID gm Insuln Asp Prt/Insulin Aspart [NovoLOG MIX 70-30 VIAL] 15 unit SQ AC-BRKFST ml Insuln Asp Prt/Insulin Aspart [NovoLOG MIX 70-30 VIAL] 10 unit SQ AC-SUPPER ml Atorvastatin [Lipitor] 20 mg PO DAILY Aspirin EC [Ecotrin Low Dose] 81 mg PO DAILY Metoprolol Succinate (ER) [Toprol XL] 50 mg PO DAILY #30 tablet lisinopriL [Zestril] 5 mg PO DAILY Discharge Medication List DULoxetine HCL [Cymbalta] 30 mg PO DAILY 03/12/20 [History] metFORMIN HCL [Glucophage] 1,000 mg PO BID 03/12/20 [History] Pantoprazole Sodium 40 mg PO DAILY 01/10/21 [History] Gabapentin [Neurontin] 100 mg PO DAILY #3 cap 06/08/21 [Rx] Gabapentin [Neurontin] 200 mg PO HS #3 cap 06/08/21 [Rx] HYDROcodone/APAP 10-325MG [Livermore 10-325] 1 tab PO Q6H PRN #6 tab 06/08/21 [Rx] Acetaminophen Tab [Tylenol] 650 mg PO Q4HR PRN tab 07/23/21 [Rx] Aspirin 325 mg PO DAILY tab 07/23/21 [Rx] Atorvastatin [Lipitor] 40 mg PO DAILY tab 07/23/21 [Rx] Budesonide-Formot 160-4.5 Mcg [Symbicort 160-4.5 Mcg Inhaler] 2 puff INHALATION RT-BID gm 07/23/21 [Rx] Clopidogrel [Plavix] 75 mg PO DAILY tab 07/23/21 [Rx] Enoxaparin [Lovenox] 40 mg SQ DAILY each 07/23/21 [Rx] Furosemide [Lasix] 20 mg PO DAILY tab 07/23/21 [Rx] Ipratropium-Albuterol Nebulize [Duoneb 0.5 mg-3 mg/3 ml Soln] 3 ml INHALATION RT-Q2H PRN ml 07/23/21 [Rx] Ipratropium-Albuterol Nebulize [Duoneb 0.5 mg-3 mg/3 ml Soln] 3 ml INHALATION RT-QID ml 07/23/21 [Rx] Magnesium Hydroxide [Milk of Magnesia Concentrate] 2,400 mg PO BID PRN ml 07/23/21 [Rx] Melatonin 6 mg PO HS tablet 07/23/21 [Rx] Sennosides-Docusate Sodium [Senokot-S] 2 each PO HS tab 07/23/21 [Rx] bisacodyL [Dulcolax] 10 mg RECTAL DAILY PRN supp 07/23/21 [Rx] lisinopriL [Zestril] 2.5 mg PO BID tab 07/23/21 [Rx] Insuln Asp Prt/Insulin Aspart [NovoLOG MIX 70-30 VIAL] 20 unit SQ AC-BRKFST ml 07/25/21 [Rx] Insuln Asp Prt/Insulin Aspart [NovoLOG MIX 70-30 VIAL] 20 unit SQ AC-SUPPER ml 07/25/21 [Rx] Metoprolol Tartrate [Lopressor] 50 mg PO BID tab 07/25/21 [Rx] Follow up Appointment(s)/Referral(s): Micky Doherty MD [STAFF PHYSICIAN] - 1 Week (Please call for follow up appointment upon discharge from [facility]) [facility]hab [facility],Cardiac [NON-STAFF] - 4 Weeks (You will be called approximately 4 weeks after surgery for evaluation for cardiac rehab) Sedrick Vanegas MD [STAFF PHYSICIAN] - 2 Weeks Patrice Olvera MD [STAFF PHYSICIAN] - 08/10/21 10:00 am Vince Marcos III, MD [Primary Care Provider] - 1 Week (Please call for follow up appointment upon discharge from [facility]) Vinny Carrillo DPM [STAFF PHYSICIAN] - 1 Week Ambulatory/Diagnostic Orders: Complete Blood Count w/diff [LAB.AMB] Time Frame: 07/28/21, Facility: [facility], Location: Laboratory Department Comprehensive Metabolic Panel [LAB.AMB] Time Frame: 07/28/21, Facility: [facility], Location: Laboratory Department Activity/Diet/Wound Care/Special Instructions: DISCHARGE INSTRUCTIONS: 1. No driving for 4 weeks, or until physician gives their ok. 2. The patient should sleep in their own bed, no medical bed needed when discharged home. 3. Stairs are not an issue. If the bedroom is upstairs, it is advised that the patient go up at night and down in the morning for the first week. Go slowly, using handrail and take 1 step at a time. 4. CHIO hose are to be worn for 30 days or until physician discontinues. 5. Heart hugger is to be worn 100% of the time until physician discontinues.( except when showering) 6. No lifting, pushing, or pulling more than 10 pounds for 12 weeks. The physician will advise of any restriction changes. 7. The patient is expected to continue the prescribed walking program. 8. Continue pain control per as needed orders. 9. Continue with incentive spirometry and splinting/heart hugger until otherwise directed by the physician. 10. Must shower daily using liquid antibacterial soap and a separate white washcloth for each individual incision. 11. Routine sternal incision care. No powders, lotions, ointments on incisions. No dressings are necessary on incisions unless they are draining. Dermabond tape is to remain on sternal incision until surgeon follow-up. 12. Please call surgeon/ROAD ROLLER OPERATOR for temp greater than 101 F or purulent drainage from incisions. 13. Narcotic medications were discussed with the patient, including the potential for misuse, addiction, and abuse. Opiod Start Talking form was reviewed with the patient. 14. All prescriptions given by surgeon for 30 days. Refills need to be filled through scientist electronics/primary care physician. 15. A Red armband has been placed on the patient. It should be worn for 30 days post surgery and will be removed by the cardiac surgeons. If an ER visit is necessary, please make sure the number on the Red armband is called. 16. You have been referred to and are expected to begin Cardiac Rehab in approximately 4-[address] Carrilol the patient is nonweightbearing status to her left lower extremity. She may use a walker with assistance from physical and occupational therapy. 18. Consult respiratory therapy for respiratory care. 18. Consult physical and occupational therapy for rehab service. Extended care facility to provide: RN SKILLED CARE SERVICES FOR POST-OP SURGICAL PATIENTS WITH THE FOLLOWING: Coronary Artery Bypass Surgery (CABG), Mitral Valve Replacement/Repair ( MVR), Aortic Valve Replacement/Repair (AVR) RN TO CONTINUE EDUCATION FROM ``ROAD TO A HEALTH HEART PATIENT EDUCATION MANUAL (GIVEN TO PATIENT IN THE HOSPITAL) MEDICATION RECONCILIATION WITH EDUCATION NEEDED UPON ADMISSION AND COURSE OF REHAB EMPHASIZE IMPORTANCE OF WEARING BREAST SUPPORT/HEART HUGGER ENCOURAGE USE OF INCENTIVE SPIROMETER 10 X EVERY HOUR WHILE AWAKE ENCOURAGE UTILIZATION OF LOWER EXTREMITY COMPRESSION STOCKINGS/CHIO HOSE and ELEVATE LEGS ABOVE LEVEL OF HEART WHILE AT REST. ENCOURAGE AMBULATION 3-5x/day INCREASING TOLERATES LABORATORY: CBC, CMP TO BE DRAWN ON THE THIRD DAY AT REHAB, EXTENDED CARE FACILITY, (RAN STAT) FAX RESULTS TO [phone]. HEALTH PARAMETERS: WEIGHT: NOTIFY MD OF WEIGHT GAIN OF 2 LBS IN 24 HOURS OR 5 LBS IN ONE WEEK HR: NOTIFY MD OF HR <55 BPM OR HR>100 BPM BP: NOTIFY MD IF BP <90/55 OR BP>140/100 O2 SAT: NOTIFY MD IF PO2<93% ON ROOM AIR PLEASE COMMUNICATE ANY ABNORMALS AND NEW FINDINGS TO THE SURGEONS OFFICE [phone]. Discharge Disposition: TRANSFER TO SNF/ECF
--- NOTE | 2021-07-25 14:04 | P.PN ---
Subjective Progress Note Date: 07/25/21 Acute non-ST elevation [place] Status post cardiac catheterization revealing triple-vessel coronary artery disease Acute hypoxic respiratory failure Acute exacerbation systolic CHF Patient is a 61-year-old female came in the appearance of left-sided chest pain and also shortness of breath and patient the had a cast from her recent for for calcaneal fracture. Patient has EF of around 25-30% only on Aldactone at home it appears to be in a bit of heart failure with bilateral pleural effusion CT of the chest showed some infiltrate but no work program. Patient denied any cough. Patient had any fever chills. Patient is found to have mildly elevated troponin. Please refer to emergency operator documentation for EKG reading. Patient was evaluated by cardiology and they're recommending catheterization today. 07/11/2021 Patient is seen and evaluated sitting up in bedside chair; denies any complaint of chest pain or shortness of breath but does report feeling anxious about scheduled surgery tomorrow Vital signs are reviewed and remained stable; blood pressure at 122/62 Patient is status post cardiac catheterization which revealed severe triple vessel coronary artery disease; cardiothoracic surgery on board and CABG is planned for tomorrow Patient has been taken off lisinopril given planned surgery tomorrow morning; remains stable on rest of current medications 07/12/2021 Patient is seen and evaluated; denies any complaint of chest pain or shortness of breath; feels anxious and overwhelmed for upcoming surgery this morning Vital signs reveal temperature 98.2, pulse 87, respiration 19 and blood pressure 128/67 with O2 saturation 92% on 2 L Labs revealed WBC 6.2, hemoglobin 10.1, platelet count of 272, blood glucoses ranging between 142-177 Patient is scheduled for OR for CABG 07/13/2021 patient is status post CABG, POD #1, she had triple-vessel urinary artery bypass grafting. Did very well overnight, patient was extubated uneventfully, and at present seems to be doing well. She is only on 2 L nasal cannula, and O2 saturations 97%. Vital signs are reviewed temperature of 99.3, pulse 90, respirations 17 and blood pressure 149/80 Chest x-ray is showing minimal bibasilar opacity/atelectasis. Her indwelling tubes and catheters are unchanged. Clinically the patient is doing great, she is not requiring any inotropes or any pressors. A todd is achieving about 500 mL with her incentive spirometer. WBC count is 7.6 hemoglobin is 8. Her electrolytes are normal 07/14/2021 Patient is seen and evaluated sitting up in a bedside recliner; was successfully extubated yesterday Vital signs are reviewed and remained stable with a temperature of 98.5, pulse 71, respiration 15 and blood pressure of 9659 Thoracic surgery on board recommending to continue with aspirin, statin, Plavix and beta blockers with plans to increase beta aixa therapy as tolerated; patient will be started on low-dose herber for afterload reduction and blood pressure is more stable; continue with amiodarone for prophylactic prevention of atrial fibrillation Continue to increase activity; PT/OT/cardiac rehab 07/15/2021 patient is seen and evaluated in ICU; postoperative day #3; sitting in a recliner, on 2 L nasal cannula, does not seem to be in any distress. Reports fair pain control. She is in sinus rhythm, blood pressure is marginal and her urine output was noted to be a bit on the low side. She did receive a unit of packed RBCs yesterday for hemoglobin of 6.8. She is on a low dose of norepinephrine with minimal improvement in her blood pressure. But no significant improvement noted in urine output. Continues to have left-sided pleural chest tube in place. Lab review shows WBC of 9.0, hemoglobin 9.2, platelets of 135, sodium 136, potassium 3.9, BUN/creatinine of 2019/0.96 Chest x-ray showed mostly atelectasis at the bases, no evidence of congestive heart failure. Continue aspirin statins and Plavix as well as beta blockers; oral amiodarone. Continue pain control 07/16/2021 Patient is seen and evaluated and follow-up continues to be closely monitored in the ICU with multiple medical consultations following. Sugars have been elevated and patient normally takes 70/30 28 units twice daily and will add and continued sliding scale as well. Blood pressure running low and midodrine being increased. Oral amiodarone being discontinued. Chest xray today shows bibasilar opacities right greater than the left component of effusions with atelectasis. Encouraged incentive spirometer at least 10 times every hour while awake. Will be given a dose of lasix. Patient continues with left lower extremity cast and orthopedics consulted. Patient is non-weightbearing and will need continued PT/OT therapy. Social work following as well for possible rehab on discharge. 07/17/2021 Patient is seen in follow-up this morning stating she is not feeling well today. Patient is having some increased nausea and generalized weakness. Patient has zofran as needed and will add IV protonix bid. Blood sugars have been better controlled on current medication regimen and will continue. Patient to have cordis catheter removed. Podiatry consult pending for left lower extremity fracture. Patient continues to report discomfort to this area and temporary cast and herber wraps noted. Patient is currently non-weightbearing to the left lower extremity and unable to work with physical therapy because of the pain and unsteadiness and awaiting recommendations. Patient is more short of breath today and requiring 7L of 02 via NC. Chest ultrasound ordered. 07/18/2021 Patient is seen and evaluated in the ICU and is being closely monitored. Patient continues on 5L via NC and states that her oxygen saturations have been low and she denies any worsening shortness of breath. Patient is sitting up in the chair and currently receiving a breathing treatment. Patient does have history of COPD and states that she does not use inhalers or nebulizers for this. Patient denies oxygen use in the outpatient setting. Patient given IV lasix today. Patient does have incentive spirometer at the bedside and strongly encouraged to continue using at least 10 times every hour while awake. Blood sugars on the lower side and patient states she is eating and denies any further nausea today. 07/19/2021 Patient is evaluated this morning and continues to be closely monitored in the ICU. Patient is having increasing shortness of breath and has received another dose of IV Lasix as chest x-ray shows cardiomegaly with central vascular congestion and small to moderate size greater than left pleural effusions and associated basilar compressive atelectasis on the background chronic parenchymal changes are redemonstrated with no significant change from previous day. Patient is currently maintained on BiPAP at 50% and intermittently using high flow cannula at 15 L. Patient also experienced some atrial fibrillation with RVR and cardiology following closely. Patient is maintained on IV amiodarone along with metoprolol. 07/20/2021 Patient is seen and evaluated this morning in the ICU being closely monitored with multiple medical consultations including CT surgery, cardiology, pulmonary voice professor, and orthopedics evaluated the patient. Patient Does have a history of a fracture of the left calcaneus and Dr. Carrillo evaluated the patient. Patient has been followed in the outpatient setting for management of a Charcot joint disease and fracture of the left calcaneus and is currently maintained on a posterior splint and was awaiting a walker boot for the left lower extremity. She is to continue nonweightbearing of that left lower extremity and will follow with PT/OT therapy. She continues with low oxygen saturations and currently maintained on 15 L high flow and titrating as tolerated. Patient denies any worsening shortness of breath. Patient was also continued on breathing inhalational treatments and Mucomyst. Patient was also continued on NovoLog 70/30 at 25 units twice a day and continues to have low blood sugar readings in the mornings and will discontinue and continue just sliding scale. Patient not eating very much. Encouraged oral intake. 07/21/2021 Patient is seen in follow-up this morning continues to be in the ICU with multiple medical consultations following. Patient underwent thoracentesis this morning with approximately 1.5 L removed and fluid was sent for analysis by pulmonary services. She continues on 15 L high flow with oxygen saturations above 90%. Encouraged incentive spirometer at least 10 times every hour while awake. Encouraged increased activity with continued non-weightbearing of that left lower extremity. Blood sugars mildly elevated in the 180's-200s and will continue with sliding scale. Encouraged oral intake. 07/22/2021 Patient is seen this morning continues to be in the ICU and being closely monitored. Patient is status post thoracentesis on the right and awaiting for fluid culture analysis. Patient is status post left-sided thoracentesis today and removed approximately 900 mL fluid. Chest x-ray today shows no evidence of pneumothorax with diffuse interstitial densities in the right lung with partial consolidation in the right lung essentially unchanged to previous with a small left pleural effusion which appears less apparent compared to previous and no change in mild diffuse interstitial edema. Patient is to receive a dose of IV Lasix today. She continues with 6 L via nasal cannula and weaning as tolerated. Cardiology following as well and patient is currently sinus rhythm. 07/23/2021 Patient is seen in follow up this morning and continues in the ICU and awaiting transfer to the selective unit. Patient is status post thoracentesis of right then left and oxygen saturations much improved. Weaning FI02 as tolerated. patient is on daily lasix and will continue. Chest xray shows COPD with CHF and atelactasis. continue current medications and breathing inhalational treatments and IS encouragement. Blood sugars elevated and trending upward and will resume her 70/30 and adjust the dose along with sliding scale. ECF being planned today. 07/24/2021 Patient is seen in follow-up on selective awaiting authorization from insurance to go to ECF for continued weakness for strength and mobility. Cardiothoracic surgery following closely and will continue to follow during hospitalization. Patient's blood sugars continue to be elevated and have resumed patient's NovoLog 70/30 And will increase in monitor as needed. Recommend to continue s liding scale as well and Accu-Cheks before meals and at bedtime. Strongly encouraged consistent carb heart healthy diet with the patient. Patient is currently saturating at 93% on room air and denies any shortness of breath. Patient is afebrile. No reports of chest pain just tenderness at the surgical site. 07/25/2021 She is seen this morning with no acute overnight issues. Patient continued on 70/30 along with sliding scale at 20 units twice daily and blood sugars improved and will continue with this and recommend close monitoring of Accu-Cheks in the outpatient setting along with resuming oral hypoglycemics. Patient is scheduled to go to ECF today for strength and mobility. Patient continues on room air and oxygen saturation is 97%. Patient will continue with low-dose Lasix 20 mg daily on discharge. labs: WBC is 8.0, hemoglobin is 8.7, platelets are 322, sodium is 135, potassium 4.6, BUN is 18, creatinine 0.51, magnesium is 2.1. Review of systems: Constitutional: No reports of fatigue, no reports of fever, or chills Cardiovascular: No reports of chest pain or palpitations Respiratory: no reports of worsening shortness of breath GI: No reports of nausea, vomiting, or diarrhea : No reports of dysuria or retention Neurovascular: reports of generalized weakness, left lower extremity pain All medications have been reviewed Active Medications Acetaminophen (Acetaminophen Tab 325 Mg Tab) 650 mg PO Q4HR PRN PRN Reason: Fever and/ or Pain Last Admin: 07/24/21 19:59 Dose: 650 mg Documented by: Hydrocodone Bitart/Acetaminophen (Hydrocodone/Apap 10-325mg 1 Each Tab) 1 each PO Q6HR PRN PRN Reason: Pain Last Admin: 07/25/21 10:46 Dose: 1 each Documented by: Albuterol/Ipratropium (Ipratropium-Albuterol 3 Ml Neb) 3 ml INHALATION RT-Q2H PRN PRN Reason: Shortness Of Breath Or Wheezing Albuterol/Ipratropium (Ipratropium-Albuterol 3 Ml Neb) 3 ml INHALATION RT-QID [facility] Last Admin: 07/25/21 12:10 Dose: 3 ml Documented by: Aspirin (Aspirin 325 Mg Tab) 325 mg PO DAILY [facility] Last Admin: 07/25/21 09:18 Dose: 325 mg Documented by: Atorvastatin Calcium (Atorvastatin 40 Mg Tab) 40 mg PO DAILY [facility] Last Admin: 07/25/21 09:18 Dose: 40 mg Documented by: Bisacodyl (Bisacodyl 10 Mg Supp) 10 mg RECTAL DAILY PRN PRN Reason: Constipation Budesonide/Formoterol Fumarate (Symbicort 160-4.5 Mcg Inhaler) 2 puff INHALATION RT-BID [facility] Last Admin: 07/25/21 08:29 Dose: 2 puff Documented by: Clopidogrel Bisulfate (Clopidogrel 75 Mg Tab) 75 mg PO DAILY [facility] Last Admin: 07/25/21 09:18 Dose: 75 mg Documented by: Duloxetine HCl (Duloxetine Hcl 30 Mg Capsule.Dr) 30 mg PO DAILY [facility] Last Admin: 07/25/21 09:18 Dose: 30 mg Documented by: Enoxaparin Sodium (Enoxaparin 40 Mg/0.4 Ml Syringe) 40 mg SQ DAILY [facility] Last Admin: 07/25/21 09:18 Dose: 40 mg Documented by: Furosemide (Furosemide 20 Mg Tab) 20 mg PO DAILY [facility] Last Admin: 07/25/21 09:18 Dose: 20 mg Documented by: Gabapentin (Gabapentin 100 Mg Cap) 100 mg PO DAILY [facility] Last Admin: 07/25/21 09:18 Dose: 100 mg Documented by: Gabapentin (Gabapentin 100 Mg Cap) 100 mg PO [facility] Last Admin: 07/24/21 20:16 Dose: 100 mg Documented by: Amiodarone HCl 150 mg/ (Dextrose/Water) 103 mls @ 618 mls/hr IV .Q10M PRN; Protocol PRN Reason: A.FIB/FLUTTER Last Admin: 07/19/21 08:30 Dose: 618 mls/hr Documented by: Amiodarone HCl 360 mg/ (Dextrose/Water) 207.2 mls @ 34.533 mls/hr IV .Q6H PRN; Protocol PRN Reason: A.FIB/FLUTTER Amiodarone HCl 450 mg/ (Dextrose/Water) 250 mls @ 16.667 mls/hr IV .Q15H PRN; Protocol PRN Reason: A.FIB/FLUTTER Insulin Aspart (Insulin Aspart (Novolog) 100 Unit/Ml Vial) 0 unit SQ ACHS [facility]; Protocol Last Admin: 07/25/21 12:03 Dose: Not Given Documented by: Insulin Aspart (Insuln Asp Prt/Insulin Aspart 100 Unit/Ml 10 Ml Vial) 20 unit SQ AC-BRKFST [facility] Last Admin: 07/24/21 18:00 Dose: 20 unit Documented by: Insulin Aspart (Insuln Asp Prt/Insulin Aspart 100 Unit/Ml 10 Ml Vial) 20 unit SQ AC-SUPPER [facility] Last Admin: 07/24/21 17:30 Dose: 20 unit Documented by: Lisinopril (Lisinopril 2.5 Mg Tab) 2.5 mg PO BID [facility] Last Admin: 07/25/21 09:18 Dose: 2.5 mg Documented by: Magnesium Hydroxide (Magnesium Hydroxide 2,400 Mg/10 Ml Cup) 2,400 mg PO BID PRN PRN Reason: Constipation Last Admin: 07/16/21 14:34 Dose: 2,400 mg Documented by: Melatonin (Melatonin 3 Mg Tablet) 6 mg PO HS [facility] Last Admin: 07/24/21 20:16 Dose: 6 mg Documented by: Metoclopramide HCl (Metoclopramide 5 Mg/Ml 2 Ml Vial) 10 mg IVP Q4H PRN PRN Reason: Nausea And Vomiting Last Admin: 07/17/21 13:01 Dose: 10 mg Documented by: Metoprolol Tartrate (Metoprolol Tartrate 50 Mg Tab) 50 mg PO BID [facility] Last Admin: 07/25/21 09:18 Dose: 50 mg Documented by: Miscellaneous Information (Potassium Replacement Protocol 1 Each Misc) 1 each MISCELLANE DAILY PRN; Protocol PRN Reason: Per Protocol Miscellaneous Information (Magnesium Replacement Protocol 1 Each Misc) 1 each MISCELLANE DAILY PRN; Protocol PRN Reason: Per Protocol Miscellaneous Information (Phosphorus Replacement Protoco 1 Each Misc) 1 each MISCELLANE DAILY PRN; Protocol PRN Reason: Per Protocol Ondansetron HCl (Ondansetron 4 Mg/2 Ml Vial) 4 mg IVP Q6HR PRN PRN Reason: Nausea And Vomiting Pantoprazole Sodium (Pantoprazole 40 Mg Tablet) 40 mg PO AC-BRKFST [facility] Last Admin: 07/25/21 06:39 Dose: 40 mg Documented by: Senna/Docusate Sodium (Sennosides-Docusate Sodium 1 Each Tab) 2 each PO HS [facility] Last Admin: 07/24/21 20:17 Dose: 2 each Documented by: Sodium Chloride (Sodium Chloride 0.9% Flush 10 Ml Syringe) 10 ml IV BID [facility] Last Admin: 07/25/21 12:03 Dose: Not Given Documented by: Physical exam: Gen: This is a 61-year-old female awake, alert and oriented 3, well-developed, well-nourished. room air on exam HEENT: Head is atraumatic, normocephalic. Pupils equal, round. Sclerae is anicteric. NECK: Supple. No JVD. No lymphadenopathy. No thyromegaly. LUNGS: diminished breath sounds bilaterally with No wheezes and some scattered rhonchi noted. No intercostal retractions. HEART: S1, S2 muffled. ABDOMEN: Soft. Bowel sounds are present. No masses. No tenderness. EXTREMITIES: No pedal edema. No calf tenderness. NEUROLOGICAL: Patient is awake, alert and oriented x3. Cranial nerves 2 through 12 are grossly intact. diffusely weak Assessment: -Acute non-ST elevation myocardial infarction: Patient is status post cardiac catheterization triple-vessel disease CABG -Acute hypoxic respiratory failure secondary to congestive heart failure chronic systolic dysfunction with acute exacerbation -Status post thoracentesis for right pleural effusion -Status post thoracentesis for left pleural effusion -Continued ongoing Nicotine use: Counseling was provided -COPD, not in acute exacerbation -Type 2 diabetes mellitus, uncontrolled with hyperglycemia and hypoglycemia -Hyperlipidemia -hypervolemic hyponatremia -hypertension, currently hypotensive -Charcot's foot disease with left calcaneus fracture status post fall with partial casting and was being followed with Dr. Carrillo in the outpatient setting awaiting specialty boot -GI prophylaxis -DVT prophylaxis -Full code Plan: Recommend to continue with current medications and management. Patient being followed closely by CT surgery along with cardiology and pulmonary. Recommend to continue with current sliding scale and Accu-Cheks before meals and resumed 70/30 and monitor closely. Recommend to continue 70/30 20 units twice daily on discharge. Encouraged consistent carb diet. Patient is maintained on heart healthy consistent carb diet. Patient encouraged continued incentive spirometer use and increase exercise as tolerated. patient is currently sitting up in the chair comfortably on room air and oxygen saturation is 97%. Recommend to continue with breathing inhalational treatments. Due to multiple complex medical issues, prognosis is guarded. CT surgery plans on discharging patient to [facility] today as authorization from insurance has been obtained. Continue to follow during hospitalization. Objective - Vital Signs Vital signs: Vital Signs Temp 98.0 F 07/25/21 03:54 Pulse 78 07/25/21 08:41 Resp 18 07/25/21 03:54 BP 123/68 07/25/21 03:54 Pulse Ox 92 L 07/25/21 08:29 Intake & Output 07/24/21 07/25/21 07/25/21 18:59 06:59 18:59 Intake Total 236 240 Balance 236 240 Weight 45.5 kg Intake: Oral 236 240 Other: Voiding Method External Catheter External Catheter ABP, PAP, CO, CI - Last Documented Arterial Blood Pressure 68/53 Pulmonary Artery Pressure 26/10 Cardiac Output 4.3 Cardiac Index 2.8 - Labs CBC & Chem 7: 07/25/21 07:08 07/25/21 07:08 Labs: Abnormal Lab Results - Last 24 Hours (Table) 07/24/21 07/24/21 07/25/21 Range/Units 07:59 16:48 07:08 RBC (3.80-5.40) m/uL Hgb (11.4-16.0) gm/dL Hct (34.0-46.0) % MCHC (31.0-37.0) g/dL RDW (11.5-15.5) % Sodium 136 L 135 L (137-145) mmol/L Carbon Dioxide 33 H 32 H (22-30) mmol/L BUN 18 H (7-17) mg/dL Creatinine 0.51 L 0.51 L (0.52-1.04) mg/dL Glucose 167 H (74-99) mg/dL POC Glucose (mg/dL) 126 H (75-99) mg/dL Calcium 8.2 L 8.1 L (8.4-10.2) mg/dL 07/25/21 Range/Units 07:08 RBC 2.95 L (3.80-5.40) m/uL Hgb 8.7 L (11.4-16.0) gm/dL Hct 28.1 L (34.0-46.0) % MCHC 30.9 L (31.0-37.0) g/dL RDW 15.9 H (11.5-15.5) % Sodium (137-145) mmol/L Carbon Dioxide (22-30) mmol/L BUN (7-17) mg/dL Creatinine (0.52-1.04) mg/dL Glucose (74-99) mg/dL POC Glucose (mg/dL) (75-99) mg/dL Calcium (8.4-10.2) mg/dL Microbiology - Last 24 Hours (Table) 07/21/21 09:15 Gram Stain - Preliminary Pleural Fluid Body Fluid Culture - Preliminary
--- NOTE | 2021-07-25 14:17 | P.PN ---
Subjective Progress Note Date: 07/25/21 On 07/23/2021 patient seen in follow-up in intensive care unit, today is postoperative day #11 status post triple coronary artery bypass grafting, occlusion of the left atrial appendage, his sternal plating using the [place] tritium system. She is post right-sided thoracentesis by Dr. Ritter, and a total of 1.3 L of fluid and left-sided thoracentesis with removal of 900 mL of pleural fluid. Chest x-ray after the procedure shows no change in mild diffuse interstitial edema, right lower lobe opacity, and small left pleural effusion. Clinically she states she is breathing much easier, she is currently down to 8 L of oxygen pulse ox is 95%, which was further decreased to 6 L. She is in sinus mechanism . She did not use BiPAP support last night. Her chest tubes have been discontinued, incisions are clean dry and intact. Her blood work from today shows a white blood cell count of 5.4, hemoglobin of 8.6, sodium was 134, potassium is 4.2, chloride was 98, CO2 31, B1 is 27 creatinine 0.5. Lung sounds revealed bibasilar crackles, patient has been encouraged to work on her incentive spirometer. She is achieving 1 L on the today. She has not had recurrence of atrial fibrillation in the last 24 hours. She has been nonweightbearing on her left leg in the left leg remains in the splint. She has been participating with physical therapy. His evaluation, the patient is on oxygen at room air her pulse ox is around 91%. The chest x-ray was repeated this morning and it shows improvement in the volume status. Noted the patient is undergone bilateral thoracentesis. There is some residual pleural effusion and the left lung base along with some small amount of fluid in the right. There is some post thoracotomy changes. No evidence of any pneumothorax. Blood work from today shows a white cell count of 5.6 with a hemoglobin 8.6, platelets at 258, normal renal function, sodium level is at 135, potassium level is at 4.0. Medications include Lasix 20 mg oral on a daily basis. The cardiac rhythm is sinus and the patient is currently on aspirin, Plavix, and she is on Lopressor 25 mg by mouth twice a day. She is on high-dose statins. She is using incentive spirometer. Approximately 1200 . Urine output is adequate and the patient has no Valencia catheter in place. Surgical wound site over the sternum is dry clean and intact. 07/24/2021, the patient is postop day #12 following her coronary bypass surgery. She is doing well. I repeated the chest x-ray today and the patient small bilateral pleural effusions which is not affecting her breathing and the patient is currently on room air oxygen. Cardiac rhythm is sinus and the patient is on Lasix 20 mg by mouth daily. The plan is to discharge this patient to [facility] for further rehabilitation. She has a fractured left lower extremity and the patient is unable to bear any weight on her left leg. No chest pain. Surgical is as documented and intact and the patient continued to use her incentive spirometer and she is on a Lovenox for DVT prophylaxis. She continues to be on aspirin. She is also on Plavix. She is on beta blockers with metoprolol 50 minutes by mouth twice a day. She is also on NovoLog 7030 mix 20 units twice a day. On her blood work today, the white cell count is at 9 with a hemoglobin 8.8, BUN is at 70 with a creatinine of 0.7 the sodium level is at 136. 07/25/2021 the patient is postop day #13. She is doing extremely well. No respiratory difficulties. The patient is on room air oxygen. Surgical wound site is dry clean and intact. As mentioned earlier, the patient multivessel coronary artery disease and the patient underwent three-vessel bypass surgery. She has history of with injection fraction of 30-35%. She developed bilateral pleural effusion and she required thoracentesis and the fluid was transudate. She has severe COPD with an FEV1 of 40% of predicted and she has a fracture left lower extremity/foot and she is numb weightbearing for now. She has a component of anemia related to her surgery. Her cardiac rhythm is sinus at this point in time. Objective - Vital Signs Vital signs: Vital Signs Temp 97.8 F 07/25/21 11:46 Pulse 72 07/25/21 12:20 Resp 18 07/25/21 11:46 BP 109/43 07/25/21 11:46 Pulse Ox 90 L 07/25/21 11:46 Intake & Output 07/24/21 07/25/21 07/25/21 18:59 06:59 18:59 Intake Total 236 358 Balance 236 358 Weight 45.5 kg Intake: Oral 236 358 Other: Voiding Method External Catheter External Catheter External Catheter ABP, PAP, CO, CI - Last Documented Arterial Blood Pressure 68/53 Pulmonary Artery Pressure 26/10 Cardiac Output 4.3 Cardiac Index 2.8 - Exam GENERAL EXAM: Alert, pleasant, 61-year-old white female, sitting up in the recliner, currently on RA , comfortable in no apparent distress. HEAD: Normocephalic/atraumatic. EYES: Normal reaction of pupils, equal size. Conjunctiva pink, sclera white. NOSE: Clear with pink turbinates. THROAT: No erythema or exudates. NECK: No masses, no JVD, no thyroid enlargement, no adenopathy. CHEST: No chest wall deformity. Symmetrical expansion. Midsternal incision is clean dry and intact, chest tube sites are clean dry and intact, interval removal of chest tubes, LUNGS: Equal air entry with no crackles, wheeze, rhonchi or dullness. CVS: Regular rate and rhythm, normal S1 and S2, no gallops, no murmurs, no rubs ABDOMEN: Soft, nontender. No hepatosplenomegaly, normal bowel sounds, no guarding or rigidity. EXTREMITIES: No clubbing, no edema, no cyanosis, 2+ pulses and upper and lower extremities. Left lower extremity incision is covered with surgical dressing, SCDs on bilateral legs MUSCULOSKELETAL: Muscle strength and tone normal. SPINE: No scoliosis or deformity SKIN: No rashes CENTRAL NERVOUS SYSTEM: Alert and oriented -3. No focal deficits, tone is normal in all 4 extremities. PSYCHIATRIC: Alert and oriented -3. Appropriate affect. Intact judgment and insight. - Labs CBC & Chem 7: 07/25/21 07:08 07/25/21 07:08 Labs: Abnormal Lab Results - Last 24 Hours (Table) 07/24/21 07/25/21 07/25/21 Range/Units 16:48 07:08 07:08 RBC 2.95 L (3.80-5.40) m/uL Hgb 8.7 L (11.4-16.0) gm/dL Hct 28.1 L (34.0-46.0) % MCHC 30.9 L (31.0-37.0) g/dL RDW 15.9 H (11.5-15.5) % Sodium 135 L (137-145) mmol/L Carbon Dioxide 32 H (22-30) mmol/L BUN 18 H (7-17) mg/dL Creatinine 0.51 L (0.52-1.04) mg/dL POC Glucose (mg/dL) 126 H (75-99) mg/dL Calcium 8.1 L (8.4-10.2) mg/dL 07/25/21 Range/Units 11:20 RBC (3.80-5.40) m/uL Hgb (11.4-16.0) gm/dL Hct (34.0-46.0) % MCHC (31.0-37.0) g/dL RDW (11.5-15.5) % Sodium (137-145) mmol/L Carbon Dioxide (22-30) mmol/L BUN (7-17) mg/dL Creatinine (0.52-1.04) mg/dL POC Glucose (mg/dL) 163 H (75-99) mg/dL Calcium (8.4-10.2) mg/dL Microbiology - Last 24 Hours (Table) 07/21/21 09:15 Gram Stain - Preliminary Pleural Fluid Body Fluid Culture - Preliminary Assessment and Plan Plan: #1. Multivessel coronary artery disease, status post quadruple coronary artery bypass grafting with SY sequentially to the mid LAD, to the distal LAD, r everse SVG to the first OM, reverse SVG to the RCA, exclusion of the left atrial appendage using a 35mm ATriClip, sternal plating using the [place]/Tritium system, harvesting of the right greater saphenous vein, and intraoperative MARLY and the peak aortic scanning, on 07/12/2021, post op day #12 2020 #2. Acute hypoxic respiratory failure related to atelectasis on bibasilar pleural effusions, status post right-sided thoracentesis on the 07/21/2021 with removal of 1.3 L of fluid, and left-sided thoracentesis on 07/22/2021 with removal of 900 mL of fluid currently on room air oxygen #3. Hypotension, postoperative, multifactorial, related to acute blood loss anemia, history of ischemic cardiomyopathy with EF of 30-35%, expected outcome of multivessel coronary artery bypass grafting surgery, resolved #4. Acute non-ST elevated myocardial infarction this admission #5. Ischemic cardiomyopathy with EF of 30-35% #6. Acute hypoxic respiratory failure related to atelectasis and bibasilar pleural effusions, improving #7. Hypertension #8. Hyperlipidemia #9. Severe COPD with preoperative FEV1 of 40% of predicted #10. Recent fall sustaining injury to her left foot, with soft tissue edema about the ankle, but no fracture or dislocation to the ankle or the left foot #11. Chronic systolic CHF #12. Depression #13. Osteoarthritis #14. History of tobacco dependence, in remission just since before admission #15 left lower extremity fracture, nonweightbearing at this point splinted Plan: The patient is doing well. She is currently on room air oxygen. Most recent chest x-rays were noted. Irregular being made to discharge this patient to rehabilitation. No history further, intervention. She underwent Previous thoracenteses indicated that has day fluid was transudate. Continue oral Lasix Continue cardiac medications including aspirin and Plavix and beta blockers Physical therapy consultation Continue NovoLog 7030 mix regarding diabetes mellitus Going to [facility] today
[2021-07-25 14:21] VITALS: PULSE 77
== END 2021-07-25 14:50 | DRG 233 ==
LOC: EC 19:19 → 3SCARD 23:34 → 2SICU 07-12 08:06 → 3SCARD 07-23 17:38
PROVIDERS: ADMIT Surgery; ATTEND Surgery
PROC: 02100Z9 Bypass Coronary Artery, One Artery from Left Internal Mammary, Open Approach (ICD-10-PCS; principal; 2021-07-12 08:00)
PROC: 06BP4ZZ Excision of Right Saphenous Vein, Percutaneous Endoscopic Approach (ICD-10-PCS; principal; 2021-07-12 08:00)
PROC: 5A1221Z Performance of Cardiac Output, Continuous (ICD-10-PCS; principal; 2021-07-12 08:00)
PROC: 021209W Bypass Coronary Artery, Three Arteries from Aorta with Autologous Venous Tissue, Open Approach (ICD-10-PCS; principal; 2021-07-12 08:00)
PROC: B24BZZ4 Ultrasonography of Heart with Aorta, Transesophageal (ICD-10-PCS; principal; 2021-07-12 08:00)
PROC: 4A1305C Monitoring of Arterial Flow, Coronary, Open Approach (ICD-10-PCS; principal; 2021-07-12 08:00)
PROC: 02L70CK Occlusion of Left Atrial Appendage with Extraluminal Device, Open Approach (ICD-10-PCS; principal; 2021-07-12 08:00)
PROC: 4A023N7 Measurement of Cardiac Sampling and Pressure, Left Heart, Percutaneous Approach (ICD-10-PCS; 2021-07-19)
PROC: B2111ZZ Fluoroscopy of Multiple Coronary Arteries using Low Osmolar Contrast (ICD-10-PCS; 2021-07-19)
PROC: 0W993ZZ Drainage of Right Pleural Cavity, Percutaneous Approach (ICD-10-PCS; 2021-07-21)
PROC: 0W9B3ZZ Drainage of Left Pleural Cavity, Percutaneous Approach (ICD-10-PCS; 2021-07-22)
DX: I21.4 Non-ST elevation (NSTEMI) myocardial infarction (principal); I50.23 Acute on chronic systolic (congestive) heart failure; J18.9 Pneumonia, unspecified organism; J96.01 Acute respiratory failure with hypoxia; I31.3 Pericardial effusion (noninflammatory); D62 Acute posthemorrhagic anemia; A52.16 Charcot's arthropathy (tabetic); E87.1 Hypo-osmolality and hyponatremia; J44.0 Chronic obstructive pulmonary disease with (acute) lower respiratory infection; J98.11 Atelectasis; I11.0 Hypertensive heart disease with heart failure; I25.10 Atherosclerotic heart disease of native coronary artery without angina pectoris; I25.2 Old myocardial infarction; I25.5 Ischemic cardiomyopathy; I27.20 Pulmonary hypertension, unspecified; I08.1 Rheumatic disorders of both mitral and tricuspid valves; J98.2 Interstitial emphysema; G89.4 Chronic pain syndrome; I48.0 Paroxysmal atrial fibrillation; I95.9 Hypotension, unspecified; D69.6 Thrombocytopenia, unspecified; E11.40 Type 2 diabetes mellitus with diabetic neuropathy, unspecified; E11.649 Type 2 diabetes mellitus with hypoglycemia without coma; E11.65 Type 2 diabetes mellitus with hyperglycemia; E78.5 Hyperlipidemia, unspecified; F17.210 Nicotine dependence, cigarettes, uncomplicated; F32.A Depression, unspecified; M19.90 Unspecified osteoarthritis, unspecified site; M79.7 Fibromyalgia; S92.002D Unspecified fracture of left calcaneus, subsequent encounter for fracture with routine healing; W18.30XD Fall on same level, unspecified, subsequent encounter; Z91.81 History of falling; Z53.20 Procedure and treatment not carried out because of patient's decision for unspecified reasons; Z98.890 Other specified postprocedural states; Z20.822 Contact with and (suspected) exposure to COVID-19; G47.00 Insomnia, unspecified; Z87.440 Personal history of urinary (tract) infections; Z79.02 Long term (current) use of antithrombotics/antiplatelets; Z79.4 Long term (current) use of insulin; Z79.82 Long term (current) use of aspirin; Z79.84 Long term (current) use of oral hypoglycemic drugs; Z79.891 Long term (current) use of opiate analgesic; Z79.899 Other long term (current) drug therapy; Z80.49 Family history of malignant neoplasm of other genital organs; Z82.5 Family history of asthma and other chronic lower respiratory diseases; Z81.1 Family history of alcohol abuse and dependence; Z98.51 Tubal ligation status
CPT/HCPCS: 36415; 71045; 71046; 71275; 76604; 80048; 80053; 80061; 80074; 81001; 82330; 82728; 82805; 83036; 83540; 83550; 83615; 83735; 83880; 84145; 84155; 84157; 84443; 84484; 85025; 85027; 85379; 85520; 85610; 85730; 86850; 86891; 86900; 86901; 86920; 87040; 87070; 87102; 87116; 87205; 87206; 87252; 87496; 87498; 87502; 87529; 87634; 87635; 87798; 88108; 88305; 89050; 93005; 93306; 93458; 93880; 93922; 93930; 93970; 94002; 94003; 94150; 94640; 94660; 94760; 96365; 96375; 99285

== ENCOUNTER → 2021-08-29 | Outpatient (CLI) | payer MEDICARE ==
--- NOTE | 2021-08-29 10:10 | CT ---
EXAMINATION TYPE: CT foot LT wo con DATE OF EXAM: 08/29/2021 COMPARISON: CT left foot June 08, 2021 HISTORY: charcot's joint disease, lt calcaneal fx CT DLP: 206.9 mGycm Automated exposure control for dose reduction was used. FINDINGS: Overlying splint and/or cast material is now present. There is redemonstration of comminuted fracture s through the calcaneus with loss of Boehler's angle or height loss of a significant portion of the m id segment referred to sagittal image 26 for reference. There is new sclerosis consistent with interv al healing. Alignment is stable. Small posterior-superior spur and large inferior calcaneal spurs are redemonstrated. Osseous structures redemonstrate demineralization. Remainder of the hindfoot and mid foot Articulations including calcaneal cuboid and talonavicular joints are maintained. Moderate diffu se soft tissue swelling and subcutaneous edema is redemonstrated slightly more prominent from prior. IMPRESSION: As above.
== END | disposition home or self-care (01) ==
LOC: RADCTMAIN 07:34
PROVIDERS: ATTEND Podiatrist
DX: S92.002D Unspecified fracture of left calcaneus, subsequent encounter for fracture with routine healing (principal); M77.32 Calcaneal spur, left foot; M81.0 Age-related osteoporosis without current pathological fracture; M79.89 Other specified soft tissue disorders; M14.672 Charcot's joint, left ankle and foot; X58.XXXD Exposure to other specified factors, subsequent encounter

== ENCOUNTER 2021-09-19 13:00 | Observation (INO) | payer MEDICARE ==
[2021-09-19] MEDS ORDERED: MORPHINE SULFATE 4 MG/ML SYRINGE IV STA (13:42)
[2021-09-19] MEDS ORDERED: SODIUM CHLORIDE 0.9% 500 ML 500 ML IV STA (13:42)
--- NOTE | 2021-09-19 14:00 | ED ---
General Adult HPI - General Source: patient, EMS Mode of arrival: EMS Limitations: no limitations - History of Present Illness -: month(s) (2) Location: back Severity scale (1-10): 10 Quality: constant Consistency: constant Improves with: none Worsens with: movement Associated Symptoms: loss of appetite, malaise, weakness <Madan Johnson - Last Filed: 09/19/21 16:49> <Bettie Arriaga - Last Filed: 09/21/21 22:53> - General Chief complaint: Fall Stated complaint: near syncope Time Seen by Provider: 09/19/21 13:30 - History of Present Illness Initial comments: 61-year-old female presents to the emergency room with complaints of generalized weakness for the past couple months. Patient states she had a coronary artery bypass graft in July and has been weak since. [facility] She states she continues to feel weak and having generalized pain. She's had a decreased appetite, denies any fevers, nausea, vomiting or diarrhea. (Madan Johnson) - Related Data Home Medications Medication Instructions Recorded Confirmed DULoxetine HCL [Cymbalta] 30 mg PO DAILY@0800 03/12/20 09/19/21 metFORMIN HCL [Glucophage] 1,000 mg PO BID@0800,1600 03/12/20 09/19/21 Pantoprazole Sodium 40 mg PO DAILY@0800 01/10/21 09/19/21 Acetaminophen [Acetaminophen ER] 650 mg PO Q4H PRN 09/19/21 09/19/21 Aspirin 325 mg PO DAILY@0800 09/19/21 09/19/21 Atorvastatin [Lipitor] 40 mg PO HS 09/19/21 09/19/21 Cholecalciferol [Vitamin D3 (25 100 mcg PO HS 09/19/21 09/19/21 Mcg = 1000 Iu)] Clopidogrel [Plavix] 75 mg PO DAILY@0800 09/19/21 09/19/21 Cyanocobalamin [Vitamin B-12] 500 mcg PO DAILY 09/19/21 09/19/21 Fluticasone/Vilanterol [Breo 1 puff INHALATION RT-DAILY 09/19/21 09/19/21 Ellipta 100-25 Mcg Inhaler] Healthshake 1 dose PO BID 09/19/21 09/19/21 Insuln Asp Prt/Insulin Aspart 12 unit SQ AC-BID 09/19/21 09/19/21 [NovoLOG MIX 70-30 VIAL] Loperamide [Imodium] 2 mg PO Q4H PRN 09/19/21 09/19/21 Magnesium Hydroxide [Milk of 2,400 mg PO Q12H PRN 09/19/21 09/19/21 Magnesia] Metoprolol Tartrate [Lopressor] 50 mg PO BID@0800,1600 09/19/21 09/19/21 Marianne-Guard 1 applic TOPICAL DIRECTED 09/19/21 09/19/21 lisinopriL [Zestril] 2.5 mg PO BID@0800,1600 09/19/21 09/19/21 Previous Rx's Medication Instructions Recorded Enoxaparin [Lovenox] 40 mg SQ DAILY each 07/23/21 Furosemide [Lasix] 20 mg PO DAILY tab 07/23/21 Ipratropium-Albuterol Nebulize 3 ml INHALATION RT-Q2H PRN ml 07/23/21 [Duoneb 0.5 mg-3 mg/3 ml Soln] Melatonin 6 mg PO HS tablet 07/23/21 bisacodyL [Dulcolax] 10 mg RECTAL DAILY PRN supp 07/23/21 Ascorbic Acid [Vitamin C] 500 mg PO BID tab 09/21/21 Gabapentin [Neurontin] 100 mg PO DAILY #3 cap 09/21/21 Gabapentin [Neurontin] 200 mg PO HS #4 cap 09/21/21 HYDROcodone/APAP 10-325MG [[place] 1 tab PO Q6H PRN #6 tab 09/21/21 10-325] Zinc Sulfate [Orazinc] 220 mg PO DAILY 14 Days #14 cap 09/21/21 Allergies Allergy/AdvReac Type Severity Reaction Status Date / Time pregabalin [From Lyrica] Allergy Swelling Verified 09/19/21 13:59 trazodone Allergy Unknown Verified 09/19/21 13:59 Review of Systems ROS Other: All systems not noted in ROS Statement are negative. <Madan Johnson - Last Filed: 09/19/21 16:49> ROS Other: All systems not noted in ROS Statement are negative. <Bettie Arriaga - Last Filed: 02/18/22 22:53> ROS Statement: Those systems with pertinent positive or pertinent negative responses have been documented in the HPI. Past Medical History Past Medical History: Diabetes Mellitus, Fibromyalgia, Hyperlipidemia, Hypertension, Osteoarthritis (OA) Additional Past Medical History / Comment(s): myalgia, myositis, sciatica, chronic pain syndrome, vaginitis, otalgia, fatigue, malaise, UTI, microscopic hematuria, tachycardia, insomnia, lumbago, degenerative disc, colitis History of Any Multi-Drug Resistant Organisms: C-DIFF Date of last positivie culture/infection: February 15 2020 MDRO Source:: stool Past Surgical History: Cholecystectomy, Orthopedic Surgery, Tubal Ligation Additional Past Surgical History / Comment(s): left wrist Past Anesthesia/Blood Transfusion Reactions: No Reported Reaction Past Psychological History: Depression Smoking Status: Former smoker Past Alcohol Use History: None Reported Past Drug Use History: Marijuana - Past Family History Mother Family Medical History: Cancer, COPD Additional Family Medical History / Comment(s): cervical cancer Father Family Medical History: Cancer Additional Family Medical History / Comment(s): etoh abuse <Madan Johnson - Last Filed: 09/19/21 16:49> General Exam Limitations: no limitations General appearance: alert, in no apparent distress Head exam: Present: atraumatic Eye exam: Present: normal appearance, PERRL, EOMI. Absent: scleral icterus, conjunctival injection, periorbital swelling, periorbital tenderness ENT exam: Present: normal exam, normal oropharynx, mucous membranes dry Neck exam: Present: normal inspection. Absent: tenderness, meningismus Respiratory exam: Present: rales (b/l bases). Absent: respiratory distress, chest wall tenderness, accessory muscle use Cardiovascular Exam: Present: regular rate, normal rhythm GI/Abdominal exam: Present: soft. Absent: distended, tenderness Extremities exam: Present: normal inspection, full ROM, normal capillary refill. Absent: tenderness, pedal edema, joint swelling, calf tenderness Left Ankle exam: Present: swelling (Patient states had a fracture around Thanksgiving is still wearing ortho boot for support) Neurovascular tendon exam: Present: no vascular compromise. Absent: abnormal cap refill, extremity cold to touch, pallor, foot drop Back exam: Present: normal inspection, full ROM, tenderness, paraspinal tenderness (Left lumbar). Absent: CVA tenderness (R), CVA tenderness (L) Neurological exam: Present: alert, oriented X3 Psychiatric exam: Present: normal affect, normal mood Skin exam: Present: warm, dry, intact, normal color. Absent: cyanosis, diaphoretic, petechiae, pallor <Madan Johnson - Last Filed: 09/19/21 16:49> Course Vital Signs 09/19/21 09/19/21 09/19/21 13:02 14:49 16:00 Temperature 98.3 F Pulse Rate 82 73 75 Pulse Rate [ Right Pulse Oximetery] Respiratory 16 16 16 Rate Blood Pressure 125/78 154/97 170/110 Blood Pressure [Right Arm] O2 Sat by Pulse 93 L 97 98 Oximetry 09/19/21 18:12 Temperature 98.2 F Pulse Rate Pulse Rate [ 87 Right Pulse Oximetery] Respiratory 16 Rate Blood Pressure Blood Pressure 136/86 [Right Arm] O2 Sat by Pulse 92 L Oximetry Medical Decision Making - Lab Data Result diagrams: 09/19/21 13:57 09/19/21 13:57 <Madan Johnson - Last Filed: 09/19/21 16:49> - Lab Data Result diagrams: 09/20/21 06:32 09/20/21 06:32 <Bettie Arriaga - Last Filed: 09/21/21 22:53> - Medical Decision Making 61-year-old female presents with generalized weakness and generalized pain for the past couple months. Coronary artery bypass graft in July and weak since. [facility] She does take an aspirin a day. Hemoglobin and hematocrit are stable there is no evidence of leukocytosis. Electrolytes are unremarkable. Troponin is negative and there is no sign of ST elevation. No evidence for acute pulmonary disease on chest x-ray. There is hyperinflation compatible with COPD. D-dimer is 8.8, CT angiogram of chest was performed shows no evidence of pulmonary embolism at this time. No evidence of pleural effusion or pulmonary masses. Thoracic aorta is normal caliber. Vital signs are stable and oxygen saturation is 97% on [address] L. Case discussed with Dr. Arriaga. Patient will be admitted to the hospital for elevated d-dimer, order for ultrasound of bilateral lower extremities placed to rule out DVT. Dr. Allen at bedside. (Cassie Johnson I was available for consultation in the emergency department. The history and physical exam were done by the midlevel provider. I was consulted for this patients care. I reviewed the case with the midlevel provider and based on thei r presentation of the patient, I agree with the assessment, medical decision making and plan of care as documented. Chart was dictated using [employer] dictation software. Attempts were made to correct any dictation errors however some typographical errors may persist. Patient was seen during a national state of emergency due to the Covid-19 pandemic. (Bettie Arriaga) - Lab Data Lab Results 09/19/21 09/19/21 09/19/21 Range/Units 13:57 13:57 13:57 WBC 3.4 L (3.8-10.6) k/uL RBC 3.97 (3.80-5.40) m/uL Hgb 11.3 L (11.4-16.0) gm/dL Hct 36.2 (34.0-46.0) % MCV 91.2 (80.0-100.0) fL MCH 28.4 (25.0-35.0) pg MCHC 31.2 (31.0-37.0) g/dL RDW 16.7 H (11.5-15.5) % Plt Count 268 (150-450) k/uL MPV 8.3 Immature Gran % (Auto) % Absolute Nucleated RBC (0.00-0.00) X 10*3/uL Neutrophils % 61 % Lymphocytes % 24 % Monocytes % 8 % Eosinophils % 4 % Basophils % 1 % Immature Gran # (0.00-0.04) X 10*3/uL Neutrophils # 2.1 (1.3-7.7) k/uL Lymphocytes # 0.8 L (1.0-4.8) k/uL Monocytes # 0.3 (0-1.0) k/uL Eosinophils # 0.1 (0-0.7) k/uL Basophils # 0.0 (0-0.2) k/uL NRBC/100 WBC Diff (0.0-0.0) /100 WBCS Hypochromasia Slight Anisocytosis Slight ESR (0-20) mm/hr PT 11.1 (9.0-12.0) sec INR 1.0 (<1.2) APTT 28.6 (22.0-30.0) sec D-Dimer 8.84 H (<0.60) mg/L FEU Sodium 136 L (137-145) mmol/L Potassium 5.0 (3.5-5.1) mmol/L Chloride 100 (98-107) mmol/L Carbon Dioxide 27 (22-30) mmol/L Anion Gap 9 mmol/L BUN 45 H (7-17) mg/dL Creatinine 0.78 (0.52-1.04) mg/dL Est GFR (CKD-EPI)AfAm >90 (>60 ml/min/1.73 sqM) Est GFR (CKD-EPI)NonAf 83 (>60 ml/min/1.73 sqM) BUN/Creatinine Ratio (12.00-20.00) Ratio Glucose 161 H (74-99) mg/dL POC Glucose (mg/dL) (75-99) mg/dL POC Glu Shipping Receiving Manager ID Plasma Lactic Acid Yan (0.7-2.0) mmol/L Calcium 8.9 (8.4-10.2) mg/dL Magnesium 1.4 L (1.6-2.3) mg/dL Total Bilirubin 0.5 (0.2-1.3) mg/dL AST 24 (14-36) U/L ALT 16 (4-34) U/L Alkaline Phosphatase 116 (38-126) U/L Troponin I (0.000-0.034) ng/mL C-Reactive Protein (<1.0) mg/dL Total Protein 7.4 (6.3-8.2) g/dL Albumin 3.5 (3.5-5.0) g/dL Globulin (1.6-3.3) g/dL Albumin/Globulin Ratio (1.60-3.17) g/dL Coronavirus (PCR) (Not Detectd) 09/19/21 09/19/21 09/19/21 Range/Units 13:57 13:57 13:57 WBC (3.8-10.6) k/uL RBC (3.80-5.40) m/uL Hgb (11.4-16.0) gm/dL Hct (34.0-46.0) % MCV (80.0-100.0) fL MCH (25.0-35.0) pg MCHC (31.0-37.0) g/dL RDW (11.5-15.5) % Plt Count (150-450) k/uL MPV Immature Gran % (Auto) % Absolute Nucleated RBC (0.00-0.00) X 10*3/uL Neutrophils % % Lymphocytes % % Monocytes % % Eosinophils % % Basophils % % Immature Gran # (0.00-0.04) X 10*3/uL Neutrophils # (1.3-7.7) k/uL Lymphocytes # (1.0-4.8) k/uL Monocytes # (0-1.0) k/uL Eosinophils # (0-0.7) k/uL Basophils # (0-0.2) k/uL NRBC/100 WBC Diff (0.0-0.0) /100 WBCS Hypochromasia Anisocytosis ESR 49 H (0-20) mm/hr PT (9.0-12.0) sec INR (<1.2) APTT (22.0-30.0) sec D-Dimer (<0.60) mg/L FEU Sodium (137-145) mmol/L Potassium (3.5-5.1) mmol/L Chloride (98-107) mmol/L Carbon Dioxide (22-30) mmol/L Anion Gap mmol/L BUN (7-17) mg/dL Creatinine (0.52-1.04) mg/dL Est GFR (CKD-EPI)AfAm (>60 ml/min/1.73 sqM) Est GFR (CKD-EPI)NonAf (>60 ml/min/1.73 sqM) BUN/Creatinine Ratio (12.00-20.00) Ratio Glucose (74-99) mg/dL POC Glucose (mg/dL) (75-99) mg/dL POC Glu Shipping Receiving Manager ID Plasma Lactic Acid Yan 1.3 (0.7-2.0) mmol/L Calcium (8.4-10.2) mg/dL Magnesium (1.6-2.3) mg/dL Total Bilirubin (0.2-1.3) mg/dL AST (14-36) U/L ALT (4-34) U/L Alkaline Phosphatase (38-126) U/L Troponin I <0.012 (0.000-0.034) ng/mL C-Reactive Protein (<1.0) mg/dL Total Protein (6.3-8.2) g/dL Albumin (3.5-5.0) g/dL Globulin (1.6-3.3) g/dL Albumin/Globulin Ratio (1.60-3.17) g/dL Coronavirus (PCR) (Not Detectd) 09/19/21 09/19/21 09/19/21 Range/Units 13:57 16:46 17:35 WBC (3.8-10.6) k/uL RBC (3.80-5.40) m/uL Hgb (11.4-16.0) gm/dL Hct (34.0-46.0) % MCV (80.0-100.0) fL MCH (25.0-35.0) pg MCHC (31.0-37.0) g/dL RDW (11.5-15.5) % Plt Count (150-450) k/uL MPV Immature Gran % (Auto) % Absolute Nucleated RBC (0.00-0.00) X 10*3/uL Neutrophils % % Lymphocytes % % Monocytes % % Eosinophils % % Basophils % % Immature Gran # (0.00-0.04) X 10*3/uL Neutrophils # (1.3-7.7) k/uL Lymphocytes # (1.0-4.8) k/uL Monocytes # (0-1.0) k/uL Eosinophils # (0-0.7) k/uL Basophils # (0-0.2) k/uL NRBC/100 WBC Diff (0.0-0.0) /100 WBCS Hypochromasia Anisocytosis ESR (0-20) mm/hr PT (9.0-12.0) sec INR (<1.2) APTT (22.0-30.0) sec D-Dimer (<0.60) mg/L FEU Sodium (137-145) mmol/L Potassium (3.5-5.1) mmol/L Chloride (98-107) mmol/L Carbon Dioxide (22-30) mmol/L Anion Gap mmol/L BUN (7-17) mg/dL Creatinine (0.52-1.04) mg/dL Est GFR (CKD-EPI)AfAm (>60 ml/min/1.73 sqM) Est GFR (CKD-EPI)NonAf (>60 ml/min/1.73 sqM) BUN/Creatinine Ratio (12.00-20.00) Ratio Glucose (74-99) mg/dL POC Glucose (mg/dL) 127 H (75-99) mg/dL POC Glu Shipping Receiving Manager ID Vivi Hill Plasma Lactic Acid Yan (0.7-2.0) mmol/L Calcium (8.4-10.2) mg/dL Magnesium (1.6-2.3) mg/dL Total Bilirubin (0.2-1.3) mg/dL AST (14-36) U/L ALT (4-34) U/L Alkaline Phosphatase (38-126) U/L Troponin I (0.000-0.034) ng/mL C-Reactive Protein 1.1 H (<1.0) mg/dL Total Protein (6.3-8.2) g/dL Albumin (3.5-5.0) g/dL Globulin (1.6-3.3) g/dL Albumin/Globulin Ratio (1.60-3.17) g/dL Coronavirus (PCR) Detected A (Not Detectd) 09/19/21 09/20/21 09/20/21 Range/Units 21:27 06:32 06:32 WBC 4.10 L (3.8-10.6) k/uL RBC 3.75 L (3.80-5.40) m/uL Hgb 10.4 L (11.4-16.0) gm/dL Hct 33.8 L (34.0-46.0) % MCV 90.1 (80.0-100.0) fL MCH 27.7 (25.0-35.0) pg MCHC 30.8 L (31.0-37.0) g/dL RDW 16.4 H (11.5-15.5) % Plt Count 236 (150-450) k/uL MPV 8.9 L Immature Gran % (Auto) 0.7 % Absolute Nucleated RBC 0 (0.00-0.00) X 10*3/uL Neutrophils % 59.3 % Lymphocytes % 24.9 % Monocytes % 10.5 % Eosinophils % 3.9 % Basophils % 0.7 % Immature Gran # 0.03 (0.00-0.04) X 10*3/uL Neutrophils # 2.43 (1.3-7.7) k/uL Lymphocytes # 1.02 (1.0-4.8) k/uL Monocytes # 0.43 (0-1.0) k/uL Eosinophils # 0.16 (0-0.7) k/uL Basophils # 0.03 (0-0.2) k/uL NRBC/100 WBC Diff 0 (0.0-0.0) /100 WBCS Hypochromasia Anisocytosis ESR (0-20) mm/hr PT (9.0-12.0) sec INR (<1.2) APTT (22.0-30.0) sec D-Dimer (<0.60) mg/L FEU Sodium 137 (137-145) mmol/L Potassium 4.9 (3.5-5.1) mmol/L Chloride 101 (98-107) mmol/L Carbon Dioxide 21.4 (22-30) mmol/L Anion Gap 14.60 mmol/L BUN 30.1 H (7-17) mg/dL Creatinine 0.6 (0.52-1.04) mg/dL Est GFR (CKD-EPI)AfAm 114.8 (>60 ml/min/1.73 sqM) Est GFR (CKD-EPI)NonAf 99.1 (>60 ml/min/1.73 sqM) BUN/Creatinine Ratio 50.17 H (12.00-20.00) Ratio Glucose 134 H (74-99) mg/dL POC Glucose (mg/dL) 102 H (75-99) mg/dL POC Glu Shipping Receiving Manager Jean-Paul Fan Plasma Lactic Acid Yan (0.7-2.0) mmol/L Calcium 8.9 (8.4-10.2) mg/dL Magnesium (1.6-2.3) mg/dL Total Bilirubin 0.50 (0.2-1.3) mg/dL AST 15 (14-36) U/L ALT 12 (4-34) U/L Alkaline Phosphatase 132 H (38-126) U/L Troponin I (0.000-0.034) ng/mL C-Reactive Protein (<1.0) mg/dL Total Protein 7.0 (6.3-8.2) g/dL Albumin 3.4 L (3.5-5.0) g/dL Globulin 3.6 H (1.6-3.3) g/dL Albumin/Globulin Ratio 0.94 L (1.60-3.17) g/dL Coronavirus (PCR) (Not Detectd) 09/20/21 09/20/21 09/20/21 Range/Units 07:22 11:51 12:24 WBC (3.8-10.6) k/uL RBC (3.80-5.40) m/uL Hgb (11.4-16.0) gm/dL Hct (34.0-46.0) % MCV (80.0-100.0) fL MCH (25.0-35.0) pg MCHC (31.0-37.0) g/dL RDW (11.5-15.5) % Plt Count (150-450) k/uL MPV Immature Gran % (Auto) % Absolute Nucleated RBC (0.00-0.00) X 10*3/uL Neutrophils % % Lymphocytes % % Monocytes % % Eosinophils % % Basophils % % Immature Gran # (0.00-0.04) X 10*3/uL Neutrophils # (1.3-7.7) k/uL Lymphocytes # (1.0-4.8) k/uL Monocytes # (0-1.0) k/uL Eosinophils # (0-0.7) k/uL Basophils # (0-0.2) k/uL NRBC/100 WBC Diff (0.0-0.0) /100 WBCS Hypochromasia Anisocytosis ESR (0-20) mm/hr PT (9.0-12.0) sec INR (<1.2) APTT (22.0-30.0) sec D-Dimer (<0.60) mg/L FEU Sodium (137-145) mmol/L Potassium (3.5-5.1) mmol/L Chloride (98-107) mmol/L Carbon Dioxide (22-30) mmol/L Anion Gap mmol/L BUN (7-17) mg/dL Creatinine (0.52-1.04) mg/dL Est GFR (CKD-EPI)AfAm (>60 ml/min/1.73 sqM) Est GFR (CKD-EPI)NonAf (>60 ml/min/1.73 sqM) BUN/Creatinine Ratio (12.00-20.00) Ratio Glucose (74-99) mg/dL POC Glucose (mg/dL) 159 H 39 L 63 L (75-99) mg/dL POC Glu Shipping Receiving Manager ID [employer], Mildred Hurtado, Mildred Gilliam, Ashley Plasma Lactic Acid Yan (0.7-2.0) mmol/L Calcium (8.4-10.2) mg/dL Magnesium (1.6-2.3) mg/dL Total Bilirubin (0.2-1.3) mg/dL AST (14-36) U/L ALT (4-34) U/L Alkaline Phosphatase (38-126) U/L Troponin I (0.000-0.034) ng/mL C-Reactive Protein (<1.0) mg/dL Total Protein (6.3-8.2) g/dL Albumin (3.5-5.0) g/dL Globulin (1.6-3.3) g/dL Albumin/Globulin Ratio (1.60-3.17) g/dL Coronavirus (PCR) (Not Detectd) 09/20/21 Range/Units 12:48 WBC (3.8-10.6) k/uL RBC (3.80-5.40) m/uL Hgb (11.4-16.0) gm/dL Hct (34.0-46.0) % MCV (80.0-100.0) fL MCH (25.0-35.0) pg MCHC (31.0-37.0) g/dL RDW (11.5-15.5) % Plt Count (150-450) k/uL MPV Immature Gran % (Auto) % Absolute Nucleated RBC (0.00-0.00) X 10*3/uL Neutrophils % % Lymphocytes % % Monocytes % % Eosinophils % % Basophils % % Immature Gran # (0.00-0.04) X 10*3/uL Neutrophils # (1.3-7.7) k/uL Lymphocytes # (1.0-4.8) k/uL Monocytes # (0-1.0) k/uL Eosinophils # (0-0.7) k/uL Basophils # (0-0.2) k/uL NRBC/100 WBC Diff (0.0-0.0) /100 WBCS Hypochromasia Anisocytosis ESR (0-20) mm/hr PT (9.0-12.0) sec INR (<1.2) APTT (22.0-30.0) sec D-Dimer (<0.60) mg/L FEU Sodium (137-145) mmol/L Potassium (3.5-5.1) mmol/L Chloride (98-107) mmol/L Carbon Dioxide (22-30) mmol/L Anion Gap mmol/L BUN (7-17) mg/dL Creatinine (0.52-1.04) mg/dL Est GFR (CKD-EPI)AfAm (>60 ml/min/1.73 sqM) Est GFR (CKD-EPI)NonAf (>60 ml/min/1.73 sqM) BUN/Creatinine Ratio (12.00-20.00) Ratio Glucose (74-99) mg/dL POC Glucose (mg/dL) 70 L (75-99) mg/dL POC Glu Shipping Receiving Manager ID Eagen, Ashley Plasma Lactic Acid Yan (0.7-2.0) mmol/L Calcium (8.4-10.2) mg/dL Magnesium (1.6-2.3) mg/dL Total Bilirubin (0.2-1.3) mg/dL AST (14-36) U/L ALT (4-34) U/L Alkaline Phosphatase (38-126) U/L Troponin I (0.000-0.034) ng/mL C-Reactive Protein (<1.0) mg/dL Total Protein (6.3-8.2) g/dL Albumin (3.5-5.0) g/dL Globulin (1.6-3.3) g/dL Albumin/Globulin Ratio (1.60-3.17) g/dL Coronavirus (PCR) (Not Detectd) Disposition Decision Date: 09/19/21 Decision Time: 16:24 <Madan Johnson - Last Filed: 09/19/21 16:49> <Bettie Arriaga - Last Filed: 09/21/21 22:53> Clinical Impression: Weakness, Elevated d-dimer Disposition: [facility] Condition: Stable
[2021-09-19 14:03] LABS: Anisocytosis Slight; Basophils % (A) 1 %; Eosinophils # (A) 0.1 k/uL (0-0.7); Eosinophils % (A) 4 %; HCT 36.2 % (34.0-46.0); HGB 11.3 gm/dL (11.4-16.0); Hypochromasia Slight; Lymphocytes # (A) 0.8 k/uL (1.0-4.8); Lymphocytes % (A) 24 %; MCH 28.4 pg (25.0-35.0); MCHC 31.2 g/dL (31.0-37.0); MCV 91.2 fL (80.0-100.0); Mean Platelet Volume 8.3; Monocytes # (A) 0.3 k/uL (0-1.0); Monocytes % (A) 8 %; Neutrophils # (A) 2.1 k/uL (1.3-7.7); Neutrophils % (A) 61 %; Platelet Count 268 k/uL (150-450); RBC 3.97 m/uL (3.80-5.40); RDW 16.7 % (11.5-15.5); WBC 3.4 k/uL (3.8-10.6)
[2021-09-19 14:20] LABS: ALT 16 U/L (4-34); AST 24 U/L (14-36); African American GFR (CKD) >90 (>60 ml/min/1.73 sqM); Albumin 3.5 g/dL (3.5-5.0); Alkaline Phosphatase 116 U/L (38-126); Anion Gap 9 mmol/L; Blood Urea Nitrogen 45 mg/dL (7-17); Calcium 8.9 mg/dL (8.4-10.2); Carbon Dioxide 27 mmol/L (22-30); Chloride 100 mmol/L (98-107); Glucose 161 mg/dL (74-99); Magnesium 1.4 mg/dL (1.6-2.3); Non-African American GFR(CKD) 83 (>60 ml/min/1.73 sqM); Sodium 136 mmol/L (137-145); Total Bilirubin 0.5 mg/dL (0.2-1.3); Total Protein 7.4 g/dL (6.3-8.2)
[2021-09-19 14:28] LABS: Partial Thromboplastin Time 28.6 sec (22.0-30.0); Prothrombin Time 11.1 sec (9.0-12.0)
--- NOTE | 2021-09-19 15:12 | XR ---
EXAMINATION TYPE: XR chest 2V DATE OF EXAM: 09/19/2021 COMPARISON: 07/25/2021 HISTORY: Shortness of breath TECHNIQUE: Frontal and lateral views of the chest are obtained. FINDINGS: Scattered senescent parenchymal changes noted. Hyperinflation compatible with COPD. No evidence for infiltrate. No evidence for atelectasis. Heart size is stable. Mediastinal structures are stable and grossly unremarkable. No evidence for hilar prominence. Degenerative changes dorsal spine. IMPRESSION: 1. No evidence for acute pulmonary disease.
[2021-09-19] MEDS ORDERED: bisacodyL 10 MG SUPP RECTAL PRN (15:52)
[2021-09-19] MEDS ORDERED: LOPERAMIDE 2 MG CAP PO PRN (15:52)
[2021-09-19] MEDS ORDERED: IPRATROPIUM-ALBUTEROL 3 ML NEB INHALATION PRN (15:52)
[2021-09-19] MEDS ORDERED: MAGNESIUM HYDROXIDE 2,400 MG/10 ML CUP PO PRN (16:02)
--- NOTE | 2021-09-19 16:11 | CT ---
EXAMINATION TYPE: CT angio chest DATE OF EXAM: 09/19/2021 COMPARISON: None HISTORY: Elevated d-dimer CT DLP: 194.2 mGycm CONTRAST: CT chest with contrast and 3D reconstruction with MIP imaging is performed with IV Contrast, patient injected with 100, wasted 38 ml mL of Isovue 370. Contrast-enhanced CT of the chest was performed through the course of the pulmonary arteries with mani g and mediastinal window settings submitted. 3D reconstruction with MIP imaging was also performed. PULMONARY ARTERIES: The pulmonary arteries and their major tributaries are patent. I do not see matt dence for sizable filling defect to suggest pulmonary embolic process. LUNGS: The lungs are clear and free of infiltrate. Basilar linear atelectasis noted. No pulmonary nod ule or mass is detected. No pleural effusion. MEDIASTINUM: Thoracic aorta is of normal caliber,however, evaluation is limited given timing of the contrast bolus. If there is concern for thoracic aortic pathology consider MARLY. Correlate clinicall y . The heart is not enlarged. No evidence for mediastinal mass. No mediastinal lymph nodes greater than 1cm. HILAR STRUCTURES: No evidence for mass. No hilar lymph nodes greater than 1 cm. UPPER ABDOMEN: No significant abnormality is seen. IMPRESSION: 1. No evidence for Pulmonary embolism at this time.
--- NOTE | 2021-09-19 16:18 | HP ---
HISTORY AND PHYSICAL CHIEF COMPLAINTS: Fall and weakness. HISTORY OF PRESENT ILLNESS: This 61-year-old woman with a past medical history of diabetes mellitus and hypertension, being followed by Dr. Marcos in the outpatient setting, recently had CABG and multiple complications also. The patient has been in [facility] for the last couple of months, and apparently discharge planning is underway because of issues with the patient's home and access. Currently the patient is feeling extremely weak. The patient apparently had a fall in the ECF. The patient has some chronic pain, also. The patient has diminished appetite and diminished intake. The patient was admitted for further evaluation and treatment. D-dimer is elevated. CT angio of the chest is underway. There is no history of any fever, rigors, chills at this time. PAST MEDICAL HISTORY: Diabetes mellitus, hypertension, history of CAD/CABG. HOME MEDICATIONS: Reviewed. They include Lopressor, NovoLog Mix, Imodium, DuoNeb. Doses and other medications are reviewed. ALLERGIES: LYRICA AND TRAZODONE. FAMILY HISTORY: History of COPD, cervical cancer. SOCIAL HISTORY: Previous history of smoking. REVIEW OF SYSTEMS: Fourteen-point review of systems negative except as mentioned earlier. PHYSICAL EXAMINATION: Pulse is 73, blood pressure 154/47, respirations 16. HEENT: Oral mucosa dry. NECK: No jugular venous distention. No carotid bruit. No lymph node enlargement. CARDIOVASCULAR: S1, S2 muffled. No S3. No S4. RESPIRATION: Breath sounds diminished at the bases. No rhonchi. No crackles. ABDOMEN: Soft. No guarding. No rigidity. No mass palpable. LEGS: No edema. No swelling. NERVOUS SYSTEM: Higher functions as mentioned earlier. Moves all 4 limbs. Diffuse weakness present. LYMPHATICS: No lymph node palpable in neck, axillae or groin. SKIN: No ulcer, rash, bleeding. LABS: WBC 3.4, hemoglobin D-dimer is 8.84. Other labs are noted. ASSESSMENT: 1. Fall and weakness for evaluation. 2. Elevated D-dimer. Rule out pulmonary embolism. 3. Hypomagnesemia. 4. Dehydration, present on admission. 5. History of recent coronary artery disease, coronary artery bypass grafting. 6. Diabetes mellitus. 7. Hypertension. RECOMMENDATIONS AND DISCUSSION: In this 61-year-old woman who presented with multiple complex medical issues, at this time I recommend continue the current medications, continue symptomatic treatment. Orthostatic vitals. I would also recommend pain management, CT angio of the chest, ultrasound of the legs. check for covid .Resume the home medications. Prognosis extremely guarded because of multiple complex medical issues. Further recommendations to follow. KATERINE / LISSETH: [id number] / MTDD
[2021-09-19] MEDS ORDERED: NALOXONE 0.4 MG/ML 1 ML VIAL IV PRN (16:24)
[2021-09-19 16:47] LABS: Glucose,Whole Blood 127 mg/dL (75-99)
--- NOTE | 2021-09-19 16:57 | US ---
EXAMINATION TYPE: US venous doppler duplex LE BI DATE OF EXAM: 09/19/2021 4:32 PM COMPARISON: US 2020 CLINICAL HISTORY: elevated ddimer. SIDE PERFORMED: Bilateral TECHNIQUE: The lower extremity deep venous system is examined utilizing real time linear array sonog cheo with graded compression, doppler sonography and color-flow sonography. VESSELS IMAGED: Common Femoral Vein Deep Femoral Vein Greater Saphenous Vein * Femoral Vein Popliteal Vein Small Saphenous Vein * Proximal Calf Veins (* superficial vessels) Right Leg: Appears negative for DVT Left Leg: Appears negative for DVT IMPRESSION: No evidence of deep vein thrombosis in both legs.
[2021-09-19] MEDS: HYDROmorphone 1 MG/ML 1 ML SYRINGE IVP PRN (17:23)
[2021-09-19] MEDS: metFORMIN 500 MG TAB PO SCH (17:26)
[2021-09-19] MEDS: METOPROLOL TARTRATE 50 MG TAB PO SCH (17:26)
[2021-09-19] MEDS: INSULN ASP PRT/INSULIN ASPART 100 UNIT/ML 10 ML VIAL SQ SCH (17:42)
[2021-09-19] MEDS: GABAPENTIN 100 MG CAP PO SCH (20:03)
[2021-09-19] MEDS: CHOLECALCIFEROL 25 MCG (1000 IU) TABLET PO SCH (20:03)
[2021-09-19] MEDS: MELATONIN 3 MG TABLET PO SCH (20:03)
[2021-09-19 21:29] LABS: Glucose,Whole Blood 102 mg/dL (75-99)
[2021-09-20] MEDS: HYDROmorphone 1 MG/ML 1 ML SYRINGE IVP PRN (05:11)
[2021-09-20 07:34] LABS: Glucose,Whole Blood 159 mg/dL (75-99)
[2021-09-20] MEDS: GABAPENTIN 100 MG CAP PO SCH ×2 (08:35→20:52)
[2021-09-20] MEDS: metFORMIN 500 MG TAB PO SCH ×2 (08:35→17:03)
[2021-09-20] MEDS: FUROSEMIDE 20 MG TAB PO SCH (08:35)
[2021-09-20] MEDS: CYANOCOBALAMIN 500 MCG TAB PO SCH (08:35)
[2021-09-20] MEDS: CLOPIDOGREL 75 MG TAB PO SCH (08:35)
[2021-09-20] MEDS: METOPROLOL TARTRATE 50 MG TAB PO SCH ×2 (08:35→16:19)
[2021-09-20] MEDS: ENOXAPARIN 40 MG/0.4 ML SYRINGE SQ SCH (08:36)
[2021-09-20] MEDS: ASPIRIN 325 MG TAB PO SCH (08:36)
[2021-09-20] MEDS: PANTOPRAZOLE 40 MG TABLET PO SCH (08:36)
[2021-09-20] MEDS: INSULN ASP PRT/INSULIN ASPART 100 UNIT/ML 10 ML VIAL SQ SCH ×2 (08:36→17:28)
[2021-09-20 08:59] LABS: African American GFR (CKD) 114.8 (60.0-200.0); Albumin 3.4 g/dL (3.8-4.9); Albumin/Globulin Ratio 0.94 (1.60-3.17); Anion Gap 14.6 mmol/L (10.00-18.00); BUN/Creat Ratio 50.17 Ratio (12.00-20.00); Blood Urea Nitrogen 30.1 mg/dL (9.0-27.0); Calcium 8.9 mg/dL (8.7-10.3); Carbon Dioxide 21.4 mmol/L (20.0-27.5); Globulin 3.6 g/dL (1.6-3.3); Non-African American GFR(CKD) 99.1 (60.0-200.0); Potassium 4.9 mmol/L (3.5-5.5); Total Bilirubin 0.5 mg/dL (0.30-1.20)
[2021-09-20] MEDS: SYMBICORT 80-4.5 MCG INHALER INHALATION SCH ×2 (09:13→20:14)
[2021-09-20 09:37] LABS: Basophils # (A) 0.03 X 10*3/uL (0.00-0.10); Basophils % (A) 0.7 %; Eosinophils # (A) 0.16 X 10*3/uL (0.04-0.35); Eosinophils % (A) 3.9 %; HCT 33.8 % (37.2-46.3); HGB 10.4 g/dL (12.0-15.0); Immature Grans, Automated 0.7 %; Lymphocytes # (A) 1.02 X 10*3/uL (0.90-5.00); Lymphocytes % (A) 24.9 %; MCH 27.7 pg (27.0-32.0); MCHC 30.8 g/dL (32.0-37.0); MCV 90.1 fL (80.0-97.0); Mean Platelet Volume 8.9 fL (9.5-12.2); Monocytes # (A) 0.43 X 10*3/uL (0.20-1.00); Monocytes % (A) 10.5 %; NRBC Per 100 WBC 0 /100 WBCS (0.0-0.0); Neutrophils # (A) 2.43 X 10*3/uL (1.80-7.70); Neutrophils % (A) 59.3 %; Platelet Count 236 X 10*3/uL (140-440); RBC 3.75 X 10*6/uL (4.10-5.20); RDW 16.4 % (11.5-14.5)
[2021-09-20] MEDS: ACETAMINOPHEN TAB 325 MG TAB PO PRN ×2 (10:03→17:21)
[2021-09-20 12:06] LABS: Glucose,Whole Blood 39 mg/dL (75-99)
[2021-09-20] MEDS ORDERED: Magnesium Replacement Protocol 1 EACH MISC MISCELLANE PRN (12:23)
[2021-09-20 12:31] LABS: Glucose,Whole Blood 63 mg/dL (75-99)
[2021-09-20 12:48] VITALS: BMI 18.4
[2021-09-20 12:52] LABS: Glucose,Whole Blood 70 mg/dL (75-99)
[2021-09-20 14:01] LABS: Glucose,Whole Blood 101 mg/dL (75-99)
[2021-09-20] MEDS ORDERED: SODIUM CHLORIDE 0.9% 50 ML IVPB ONE (14:15)
[2021-09-20] MEDS ORDERED: SOTROVIMAB (EUA) 500 MG in SODIUM CHLORIDE 0.9% 100 ML IVPB ONE (15:00)
[2021-09-20] MEDS: MAGNESIUM SULFATE-D5W PMX 1 GM in DEXTROSE/WATER 1 100ML.BAG IVPB SCH ×3 (16:16→18:22)
[2021-09-20 17:08] LABS: Glucose,Whole Blood 84 mg/dL (75-99)
[2021-09-20] MEDS: MELATONIN 3 MG TABLET PO SCH (20:52)
[2021-09-20] MEDS: CHOLECALCIFEROL 25 MCG (1000 IU) TABLET PO SCH (20:52)
[2021-09-20 21:31] LABS: Glucose,Whole Blood 211 mg/dL (75-99)
[2021-09-21] MEDS: HYDROmorphone 1 MG/ML 1 ML SYRINGE IVP PRN ×3 (00:01→11:22)
--- NOTE | 2021-09-21 01:16 | P.PN ---
Subjective Progress Note Date: 09/20/21 Patient is a 61 year old female who was admitted with recent fall at the [facility] and generalized weakness and fatigue. Patient also found to have elevated d- dimer and CTA of the chest was negative for PE and venous doppler negative for DVT. Patient is maintained on lovenox. PT/OT to evaluate and social work following as plan is to return to [facility] on discharge. Patient found to be covid positive and will initiate vitamin and zinc supplements, continue lovenox, and request monoclonal antibody. Patient denies chest pain or shortness of breath. Patient is afebrile. Tolerating diet although not eating much with no appetite. Review of systems: Unable to obtain as patient is lethargic and sleeping All medications have been reviewed Active Medications Acetaminophen (Acetaminophen Tab 325 Mg Tab) 650 mg PO Q4H PRN PRN Reason: Mild Pain Last Admin: 09/20/21 17:21 Dose: 650 mg Documented by: Albuterol/Ipratropium (Ipratropium-Albuterol 3 Ml Neb) 3 ml INHALATION RT-Q2H PRN PRN Reason: Shortness Of Breath Or Wheezing Aspirin (Aspirin 325 Mg Tab) 325 mg PO DAILY@0800 [facility] Last Admin: 09/20/21 08:36 Dose: 325 mg Documented by: Bisacodyl (Bisacodyl 10 Mg Supp) 10 mg RECTAL DAILY PRN PRN Reason: Constipation Budesonide/Formoterol Fumarate (Symbicort 80-4.5 Mcg Inhaler) 2 puff INHALATION RT-BID [facility] Last Admin: 09/20/21 20:14 Dose: Not Given Documented by: Cholecalciferol (Cholecalciferol 25 Mcg (1000 Iu) Tablet) 100 mcg PO HS [facility] Last Admin: 09/20/21 20:52 Dose: 100 mcg Documented by: Clopidogrel Bisulfate (Clopidogrel 75 Mg Tab) 75 mg PO DAILY@0800 [facility] Last Admin: 09/20/21 08:35 Dose: 75 mg Documented by: Cyanocobalamin (Cyanocobalamin 500 Mcg Tab) 500 mcg PO DAILY [facility] Last Admin: 09/20/21 08:35 Dose: 500 mcg Documented by: Enoxaparin Sodium (Enoxaparin 40 Mg/0.4 Ml Syringe) 40 mg SQ DAILY [facility] Last Admin: 09/20/21 08:36 Dose: 40 mg Documented by: Furosemide (Furosemide 20 Mg Tab) 20 mg PO DAILY [facility] Last Admin: 09/20/21 08:35 Dose: 20 mg Documented by: Gabapentin (Gabapentin 100 Mg Cap) 200 mg PO HS [facility] Last Admin: 09/20/21 20:52 Dose: 200 mg Documented by: Gabapentin (Gabapentin 100 Mg Cap) 100 mg PO DAILY [facility] Last Admin: 09/20/21 08:35 Dose: 100 mg Documented by: Hydromorphone HCl (Hydromorphone 1 Mg/Ml 1 Ml Syringe) 0.5 mg IVP Q6HR PRN PRN Reason: Pain Last Admin: 09/21/21 00:01 Dose: 0.5 mg Documented by: Insulin Aspart (Insuln Asp Prt/Insulin Aspart 100 Unit/Ml 10 Ml Vial) 12 unit SQ AC-BID [facility] Last Admin: 09/20/21 17:28 Dose: Not Given Documented by: Lisinopril (Lisinopril 2.5 Mg Tab) 2.5 mg PO BID@0800,1600 [facility] Last Admin: 09/20/21 16:20 Dose: 2.5 mg Documented by: Loperamide HCl (Loperamide 2 Mg Cap) 2 mg PO Q4H PRN PRN Reason: Diarrhea Magnesium Hydroxide (Magnesium Hydroxide 2,400 Mg/10 Ml Cup) 2,400 mg PO Q12H PRN PRN Reason: Constipation Melatonin (Melatonin 3 Mg Tablet) [address] [facility] Last Admin: 09/20/21 20:52 Dose: 6 mg Documented by: Metformin HCl (Metformin 500 Mg Tab) 1,000 mg PO BID@0800,1600 [facility] Last Admin: 09/20/21 17:03 Dose: Not Given Documented by: Metoprolol Tartrate (Metoprolol Tartrate 50 Mg Tab) 50 mg PO BID@0800,1600 [facility] Last Admin: 09/20/21 16:19 Dose: 50 mg Documented by: Miscellaneous Information (Magnesium Replacement Protocol 1 Each Misc) 1 each MISCELLANE DAILY PRN; Protocol PRN Reason: Per Protocol Naloxone HCl (Naloxone 0.4 Mg/Ml 1 Ml Vial) 0.2 mg IV Q2M PRN PRN Reason: Opioid Reversal Pantoprazole Sodium (Pantoprazole 40 Mg Tablet) 40 mg PO DAILY@0800 [facility] Last Admin: 09/20/21 08:36 Dose: 40 mg Documented by: PHYSICAL EXAMINATION: GENERAL: The patient is alert and oriented x3, thin built, ill appearing Lethargic HEENT: Pupils are round and equally reacting to light. EOMI. does have scleral icterus. No conjunctival pallor. Normocephalic, atraumatic. No pharyngeal erythema. No thyromegaly. CARDIOVASCULAR: S1 and S2 muffled PULMONARY: diminished breath sounds bilaterally with Few scattered rhonchi noted. ABDOMEN: soft. non-tender on palpation. Non-distended, normoactive bowel sounds. No palpable organomegaly. MUSCULOSKELETAL: No joint swelling or deformity. EXTREMITIES: No cyanosis, clubbing, or pedal edema. NEUROLOGICAL: Gross neurological examination did not reveal any focal deficits. diffusely weak SKIN: No rashes. Assessment: Fall and weakness for evaluation Elevated D-dimer, Ruled out pulmonary embolism Hypomagnesemia Dehydration, present on admission History of recent coronary artery disease, cabg diabetes mellitus hypertension GI prophylaxis DVT prophylaxis Full code Plan: Recommend to continue with current medications and symptomatic treatment. Corale nt continues on lovenox. Patient is found to be covid positive and is a good candidate for Sotrovimab monoclonal antibiodies and verified by pharmacy. Patient continues to be lethargic with extreme weakness and PT/OT to evaluate. ECF being planned once stable. Due to multiple complex medical issues, prognosis is guarded. The impression and plan of care has been dictated by Bianca Roach, nurse practitioner as directed. MD Tyrone I have performed a history and examination and MDM of this patient, discussed the same with the dictator, and agree with the dictator's assessment and plan as written ,documented as a scribe. Based on total visit time, I have performed more than 50% of the visit. Any additional findings or plans will be noted. Objective - Vital Signs Vital signs: Vital Signs Temp 99.5 F 09/20/21 07:00 Pulse 102 H 09/20/21 07:00 Resp 20 09/20/21 07:00 BP 175/102 09/20/21 07:00 Pulse Ox 99 09/20/21 07:00 Intake & Output 09/19/21 09/20/21 09/20/21 18:59 06:59 18:59 Intake Total 118 Balance 118 Weight 45.813 kg Intake: Oral 118 Other: Voiding Method Diaper # Voids 2 - Labs CBC & Chem 7: 09/20/21 06:32 09/20/21 06:32 Labs: Abnormal Lab Results - Last 24 Hours (Table) 09/19/21 09/19/21 09/19/21 Range/Units 13:57 13:57 13:57 WBC 3.4 L (3.8-10.6) k/uL RBC (4.10-5.20) X 10*6/uL Hgb 11.3 L (11.4-16.0) gm/dL Hct (37.2-46.3) % MCHC (32.0-37.0) g/dL RDW 16.7 H (11.5-15.5) % MPV (9.5-12.2) fL Lymphocytes # 0.8 L (1.0-4.8) k/uL ESR (0-20) mm/hr D-Dimer 8.84 H (<0.60) mg/L FEU Sodium 136 L (137-145) mmol/L BUN 45 H (7-17) mg/dL BUN/Creatinine Ratio (12.00-20.00) Ratio Glucose 161 H (74-99) mg/dL POC Glucose (mg/dL) (75-99) mg/dL Magnesium 1.4 L (1.6-2.3) mg/dL Alkaline Phosphatase (41-126) U/L C-Reactive Protein (<1.0) mg/dL Albumin (3.8-4.9) g/dL Globulin (1.6-3.3) g/dL Albumin/Globulin Ratio (1.60-3.17) g/dL Coronavirus (PCR) (Not Detectd) 09/19/21 09/19/21 09/19/21 Range/Units 13:57 13:57 16:46 WBC (3.8-10.6) k/uL RBC (4.10-5.20) X 10*6/uL Hgb (11.4-16.0) gm/dL Hct (37.2-46.3) % MCHC (32.0-37.0) g/dL RDW (11.5-15.5) % MPV (9.5-12.2) fL Lymphocytes # (1.0-4.8) k/uL ESR 49 H (0-20) mm/hr D-Dimer (<0.60) mg/L FEU Sodium (137-145) mmol/L BUN (7-17) mg/dL BUN/Creatinine Ratio (12.00-20.00) Ratio Glucose (74-99) mg/dL POC Glucose (mg/dL) 127 H (75-99) mg/dL Magnesium (1.6-2.3) mg/dL Alkaline Phosphatase (41-126) U/L C-Reactive Protein 1.1 H (<1.0) mg/dL Albumin (3.8-4.9) g/dL Globulin (1.6-3.3) g/dL Albumin/Globulin Ratio (1.60-3.17) g/dL Coronavirus (PCR) (Not Detectd) 09/19/21 09/19/21 09/20/21 Range/Units 17:35 21:27 06:32 WBC 4.10 L (3.8-10.6) k/uL RBC 3.75 L (4.10-5.20) X 10*6/uL Hgb 10.4 L (11.4-16.0) gm/dL Hct 33.8 L (37.2-46.3) % MCHC 30.8 L (32.0-37.0) g/dL RDW 16.4 H (11.5-15.5) % MPV 8.9 L (9.5-12.2) fL Lymphocytes # (1.0-4.8) k/uL ESR (0-20) mm/hr D-Dimer (<0.60) mg/L FEU Sodium (137-145) mmol/L BUN (7-17) mg/dL BUN/Creatinine Ratio (12.00-20.00) Ratio Glucose (74-99) mg/dL POC Glucose (mg/dL) 102 H (75-99) mg/dL Magnesium (1.6-2.3) mg/dL Alkaline Phosphatase (41-126) U/L C-Reactive Protein (<1.0) mg/dL Albumin (3.8-4.9) g/dL Globulin (1.6-3.3) g/dL Albumin/Globulin Ratio (1.60-3.17) g/dL Coronavirus (PCR) Detected A (Not Detectd) 09/20/21 09/20/21 Range/Units 06:32 07:22 WBC (3.8-10.6) k/uL RBC (4.10-5.20) X 10*6/uL Hgb (11.4-16.0) gm/dL Hct (37.2-46.3) % MCHC (32.0-37.0) g/dL RDW (11.5-15.5) % MPV (9.5-12.2) fL Lymphocytes # (1.0-4.8) k/uL ESR (0-20) mm/hr D-Dimer (<0.60) mg/L FEU Sodium (137-145) mmol/L BUN 30.1 H (7-17) mg/dL BUN/Creatinine Ratio 50.17 H (12.00-20.00) Ratio Glucose 134 H (74-99) mg/dL POC Glucose (mg/dL) 159 H (75-99) mg/dL Magnesium (1.6-2.3) mg/dL Alkaline Phosphatase 132 H (41-126) U/L C-Reactive Protein (<1.0) mg/dL Albumin 3.4 L (3.8-4.9) g/dL Globulin 3.6 H (1.6-3.3) g/dL Albumin/Globulin Ratio 0.94 L (1.60-3.17) g/dL Coronavirus (PCR) (Not Detectd)
[2021-09-21 06:21] VITALS: RESP 18
[2021-09-21 06:45] LABS: Glucose,Whole Blood 212 mg/dL (75-99)
[2021-09-21 07:53] VITALS: BP 148/86; PULSE 97; TEMP 98.6
[2021-09-21] MEDS: INSULN ASP PRT/INSULIN ASPART 100 UNIT/ML 10 ML VIAL SQ SCH (08:17)
[2021-09-21] MEDS: PANTOPRAZOLE 40 MG TABLET PO SCH (08:19)
[2021-09-21] MEDS: ASPIRIN 325 MG TAB PO SCH (08:19)
[2021-09-21] MEDS: GABAPENTIN 100 MG CAP PO SCH (08:19)
[2021-09-21] MEDS: CLOPIDOGREL 75 MG TAB PO SCH (08:19)
[2021-09-21] MEDS: FUROSEMIDE 20 MG TAB PO SCH (08:19)
[2021-09-21] MEDS: metFORMIN 500 MG TAB PO SCH (08:20)
[2021-09-21] MEDS: ENOXAPARIN 40 MG/0.4 ML SYRINGE SQ SCH (08:20)
[2021-09-21] MEDS: CYANOCOBALAMIN 500 MCG TAB PO SCH (08:20)
[2021-09-21] MEDS: METOPROLOL TARTRATE 50 MG TAB PO SCH (08:20)
[2021-09-21] MEDS ORDERED: ZINC SULFATE 220 MG CAP PO SCH (09:00)
[2021-09-21] MEDS ORDERED: ASCORBIC ACID 500 MG TAB PO SCH (09:00)
[2021-09-21] MEDS: SYMBICORT 80-4.5 MCG INHALER INHALATION SCH (09:13)
[2021-09-21] MEDS ORDERED: ALBUTEROL HFA INHALER INHALATION PRN (09:14)
[2021-09-21] MEDS ORDERED: HYDROcodone/APAP 7.5-325MG 1 EACH TAB PO PRN (11:29)
[2021-09-21 11:34] LABS: Glucose,Whole Blood 141 mg/dL (75-99)
--- NOTE | 2021-09-21 13:41 | P.DS ---
Providers Date of admission: 09/20/21 13:08 Expected date of discharge: 09/21/21 Attending physician: John Allen Primary care physician: Vince Marcos Hospital Course: Final diagnosis Fall and weakness for evaluation Elevated D-dimer, Ruled out pulmonary embolism COVID-19 infection with no respiratory symptoms Hypomagnesemia, improved Status post monoclonal antibody infusion for COVID-19 Dehydration, present on admission History of recent coronary artery disease, cabg diabetes mellitus hypertension GI prophylaxis DVT prophylaxis Full code Discharge disposition Patient is being discharged in a stable condition with guarded prognosis to [facility] for continued PT/OT therapy. Patient will follow-up with Dr. Marcos upon discharge. Patient will continue with vitamin and zinc supplements and encouraged to continue with Lovenox. Total time taken is greater than 35 minutes. Hospital course This is a 61-year-old female who was recently admitted with recent fall at the ECF and generalized weakness and fatigue. Patient did have an elevated d-dimer and CT of the chest was negative for PE and venous Doppler was also negative for any DVTs patient was found to be Covid positive and did receive the monoclonal antibody yesterday. Patient denies any shortness of breath and is currently on room air at 95% oxygen saturation. Patient will be returning to ECF for continued rehab status post her CABG most recently. Recommend continue Accu- Cheks and consistent carb diet. Recommend repeat labs of CBC and BMP in the outpatient setting. Currently no reports of chest pain, shortness of breath, or palpitations. Patient is afebrile. No reports of nausea or vomiting and patient is tolerating diet. Patient will be discharged to ECF today. Guarded prognosis. On exam vital signs are stable. Cardio S1, S2 are muffled. Respiratory shows diminished breath sounds at the bases with a few scattered rhonchi noted. Abdomen is soft and nontender. Nervous system shows mild diffuse weakness. Please refer to medication reconciliation sheet for a list of medications. The impression and plan of care has been dictated by Bianca Roach, nurse practitioner as directed. MD Tyrone I have performed a history and examination and MDM of this patient, discussed the same with the dictator, and agree with the dictator's assessment and plan as written ,documented as a scribe. Based on total visit time, I have performed more than 50% of the visit. Any additional findings or plans will be noted. Patient Condition at Discharge: Stable Plan - Discharge Summary New Discharge Prescriptions: New Ascorbic Acid [Vitamin C] 500 mg PO BID tab Zinc Sulfate [Orazinc] 220 mg PO DAILY 14 Days #14 cap Continue DULoxetine HCL [Cymbalta] 30 mg PO DAILY@0800 metFORMIN HCL [Glucophage] 1,000 mg PO BID@0800,1600 bisacodyL [Dulcolax] 10 mg RECTAL DAILY PRN supp PRN Reason: Constipation Furosemide [Lasix] 20 mg PO DAILY tab Cyanocobalamin [Vitamin B-12] 500 mcg PO DAILY Cholecalciferol [Vitamin D3 (25 Mcg = 1000 Iu)] 100 mcg PO HS Fluticasone/Vilanterol [Breo Ellipta 100-25 Mcg Inhaler] 1 puff INHALATION RT-DAILY Atorvastatin [Lipitor] 40 mg PO HS Aspirin 325 mg PO DAILY@0800 Insuln Asp Prt/Insulin Aspart [NovoLOG MIX 70-30 VIAL] 12 unit SQ AC-BID Gabapentin [Neurontin] 200 mg PO HS #4 cap Gabapentin [Neurontin] 100 mg PO DAILY #3 cap Pantoprazole Sodium 40 mg PO DAILY@0800 Ipratropium-Albuterol Nebulize [Duoneb 0.5 mg-3 mg/3 ml Soln] 3 ml INHALATION RT-Q2H PRN ml PRN Reason: Shortness Of Breath Or Wheezing Enoxaparin [Lovenox] 40 mg SQ DAILY each Melatonin 6 mg PO HS tablet Loperamide [Imodium] 2 mg PO Q4H PRN PRN Reason: Diarrhea Marianne-Guard 1 applic TOPICAL DIRECTED Acetaminophen [Acetaminophen ER] 650 mg PO Q4H PRN PRN Reason: Pain lisinopriL [Zestril] 2.5 mg PO BID@0800,1600 Healthshake 1 dose PO BID Clopidogrel [Plavix] 75 mg PO DAILY@0800 Metoprolol Tartrate [Lopressor] 50 mg PO BID@0800,1600 Magnesium Hydroxide [Milk of Magnesia] 2,400 mg PO Q12H PRN PRN Reason: Constipation HYDROcodone/APAP 10-325MG [[place] 10-325] 1 tab PO Q6H PRN #6 tab PRN Reason: Pain Discharge Medication List DULoxetine HCL [Cymbalta] 30 mg PO DAILY@0800 03/12/20 [History] metFORMIN HCL [Glucophage] 1,000 mg PO BID@0800,1600 03/12/20 [History] Pantoprazole Sodium 40 mg PO DAILY@0800 01/10/21 [History] Enoxaparin [Lovenox] 40 mg SQ DAILY each 07/23/21 [Rx] Furosemide [Lasix] 20 mg PO DAILY tab 07/23/21 [Rx] Ipratropium-Albuterol Nebulize [Duoneb 0.5 mg-3 mg/3 ml Soln] 3 ml INHALATION RT-Q2H PRN ml 07/23/21 [Rx] Melatonin 6 mg PO HS tablet 07/23/21 [Rx] bisacodyL [Dulcolax] 10 mg RECTAL DAILY PRN supp 07/23/21 [Rx] Acetaminophen [Acetaminophen ER] 650 mg PO Q4H PRN 09/19/21 [History] Aspirin 325 mg PO DAILY@0800 09/19/21 [History] Atorvastatin [Lipitor] 40 mg PO HS 09/19/21 [History] Cholecalciferol [Vitamin D3 (25 Mcg = 1000 Iu)] 100 mcg PO HS 09/19/21 [History] Clopidogrel [Plavix] 75 mg PO DAILY@0800 09/19/21 [History] Cyanocobalamin [Vitamin B-12] 500 mcg PO DAILY 09/19/21 [History] Fluticasone/Vilanterol [Breo Ellipta 100-25 Mcg Inhaler] 1 puff INHALATION RT- DAILY 09/19/21 [History] Healthshake 1 dose PO BID 09/19/21 [History] Insuln Asp Prt/Insulin Aspart [NovoLOG MIX 70-30 VIAL] 12 unit SQ AC-BID 09/19/21 [History] Loperamide [Imodium] 2 mg PO Q4H PRN 09/19/21 [History] Magnesium Hydroxide [Milk of Magnesia] 2,400 mg PO Q12H PRN 09/19/21 [History] Metoprolol Tartrate [Lopressor] 50 mg PO BID@0800,1600 09/19/21 [History] Marianne-Guard 1 applic TOPICAL DIRECTED 09/19/21 [History] lisinopriL [Zestril] 2.5 mg PO BID@0800,1600 09/19/21 [History] Ascorbic Acid [Vitamin C] 500 mg PO BID tab 09/21/21 [Rx] Gabapentin [Neurontin] 100 mg PO DAILY #3 cap 09/21/21 [Rx] Gabapentin [Neurontin] 200 mg PO HS #4 cap 09/21/21 [Rx] HYDROcodone/APAP 10-325MG [[place] 10-325] 1 tab PO Q6H PRN #6 tab 09/21/21 [Rx] Zinc Sulfate [Orazinc] 220 mg PO DAILY 14 Days #14 cap 09/21/21 [Rx] Follow up Appointment(s)/Referral(s): Vince Marcos III, MD [Primary Care Provider] - 1-2 days Activity/Diet/Wound Care/Special Instructions: Patient is going to [facility] Activity as tolerated Continue with consistent carb diet Continue Accu-Cheks before meals and at bedtime Recommend repeat labs of CBC, BMP in the outpatient setting in 2-3 days Follow-up with primary care provider on discharge Discharge Disposition: TRANSFER TO SNF/ECF
== END 2021-09-21 15:10 ==
LOC: EC 13:00 → 6NMEDSUR 16:43 → INTOOBSV 09-20 13:08 → OBSVTOIN 09-20 13:08 → 4SSUR 09-20 22:56 → UNDODISIN 09-21 15:10
PROVIDERS: ADMIT Hospitalist; ATTEND Hospitalist
DX: U07.1 COVID-19 (principal); E83.42 Hypomagnesemia; E86.0 Dehydration; R79.89 Other specified abnormal findings of blood chemistry; I25.10 Atherosclerotic heart disease of native coronary artery without angina pectoris; E11.9 Type 2 diabetes mellitus without complications; E78.5 Hyperlipidemia, unspecified; I10 Essential (primary) hypertension; M19.90 Unspecified osteoarthritis, unspecified site; M79.7 Fibromyalgia; G89.4 Chronic pain syndrome; M54.40 Lumbago with sciatica, unspecified side; F32.A Depression, unspecified; R53.81 Other malaise; R53.83 Other fatigue; G47.00 Insomnia, unspecified; Z16.24 Resistance to multiple antibiotics; Z79.84 Long term (current) use of oral hypoglycemic drugs; Z79.02 Long term (current) use of antithrombotics/antiplatelets; Z79.82 Long term (current) use of aspirin; Z79.4 Long term (current) use of insulin; Z79.899 Other long term (current) drug therapy; Z88.8 Allergy status to other drugs, medicaments and biological substances; Z90.49 Acquired absence of other specified parts of digestive tract; Z87.891 Personal history of nicotine dependence; Z98.51 Tubal ligation status; Z95.1 Presence of aortocoronary bypass graft; Z91.81 History of falling; Z87.440 Personal history of urinary (tract) infections; Z98.890 Other specified postprocedural states; Z80.49 Family history of malignant neoplasm of other genital organs; Z82.5 Family history of asthma and other chronic lower respiratory diseases; Z81.1 Family history of alcohol abuse and dependence; W19.XXXA Unspecified fall, initial encounter; Y92.129 Unspecified place in nursing home as the place of occurrence of the external cause
CPT/HCPCS: 96376 ×2; 96365; 96366; 96372 ×2; 96375; 99285; 36415; 94760; 93005; 97530; 97163; 97166; 85379 ×2; 80053 ×2; 85652; 83605; 83735 ×2; 84484; 85025 ×2; 85610; 85730; 86140; 87635; 71046; 93970; 71275; G0378 ×4; M0247; J2270; J1650 ×2; J1170 ×3; J3475; Q9967; Q0247; 96374

== ENCOUNTER 2021-11-02 17:56 | Inpatient (IN) | payer MEDICARE ==
[2021-11-02] MEDS ORDERED: ASPIRIN 300 MG SUPP RECTAL STA (18:08)
[2021-11-02 18:13] LABS: Glucose,Whole Blood 279 mg/dL (75-99)
[2021-11-02] MEDS ORDERED: NOREPINEPHRINE 1 MG/ML 4 ML VIAL IV ONE (18:15)
[2021-11-02] MEDS ORDERED: EPINEPHrine 10 ML SYRINGE (0.1 MG/ML) ONE (18:15)
[2021-11-02] MEDS ORDERED: SODIUM CHLORIDE 0.9% 250 ML BAG ONE (18:15)
[2021-11-02] MEDS ORDERED: ATROPINE SULFATE 0.1 MG/ML 10ML SYRINGE ONE (18:15)
[2021-11-02] MEDS ORDERED: SODIUM CHLORIDE 0.9% 500 ML 500 ML IV ONE (18:20)
[2021-11-02] MEDS ORDERED: IV FLUID CONTINUATION 550 ML IV ONE (18:20)
--- NOTE | 2021-11-02 18:25 | ED ---
General Adult HPI - General Chief complaint: Cardiac Arrest/CPR Stated complaint: Cardiac Arrest Source: EMS Mode of arrival: EMS Limitations: altered mental status - History of Present Illness Initial comments: Dictation was produced using [employer] dictation software. please excuse any grammatical, word or spelling errors. Chief Complaint: 61-year-old female presents emergency department after cardiac arrest History of Present Illness: 61-year-old female she presents to the emergency room for cardiac arrest. Report received from EMS. EMS got a call about a collapsed patient at approximately 5:00 PM. She allegedly arrested 5 minutes prior to the call. CPR was started. Patient had multiple rounds and couple episodes of return of spontaneous circulation. EMS reports that there was not any observable episodes of ventricular fibrillation. Patient allegedly had a CABG 3 months ago. EMS reports that en route they did an EKG showing inferior STEMI. Unable to obtain ROS negative mental status PHYSICAL EXAM: General Impression: Obtunded, fixed mid dilated pupils HEENT: Normocephalic atraumatic, extra-ocular movements intact intubated Cardiovascular: Heart regular rate and rhythm Chest: Bilateral breath sounds with bag mask ventilation Abdomen: abdomen soft, non-distended, no organomegaly Musculoskeletal: Pulses present and equal in all extremities, no peripheral edema Neurological: No spontaneous movements ED course: 61-year-old female presents to the emergency department for cardiac arrest. Time of arrest was originally 555. She did have pulses when we received patient and trauma bay number #2. EKG was performed showing inferior STEMI with reciprocal changes. Code STEMI was paged. Spoke with Dr. Denis. There is no family to speak with at the moment regarding patient's CODE STATUS and to discuss patient's medical wishes. Patient did have pulse upon arrival. While in the emergency prompt patient came bradycardic into the 20s and hypotensive with systolics in the 60s. Patient is given 1 dose of epi and CPR was performed for 2 minutes. Pulse check at 2 minutes with return of spontaneous circulation. Dr. Milan was notified of this event in emergency department. Patient was given rectal aspirin. She was dispositioned to cardiac Development Geologist. Patient will be admitted to [facility]. EKG interpretation: Ventricular rate 92, sinus rhythm, ST segment elevation GA with ST elevations in inferior leads with reciprocal changes in aVL. There does appear to be an isolated ST elevation in V3.. No NV prolongation, no QTC prolongation - Related Data Home Medications Medication Instructions Recorded Confirmed DULoxetine HCL [Cymbalta] 30 mg PO DAILY@0800 03/12/20 09/19/21 metFORMIN HCL [Glucophage] 1,000 mg PO BID@0800,1600 03/12/20 09/19/21 Pantoprazole Sodium 40 mg PO DAILY@0800 01/10/21 09/19/21 Acetaminophen [Acetaminophen ER] 650 mg PO Q4H PRN 09/19/21 09/19/21 Aspirin 325 mg PO DAILY@0800 09/19/21 09/19/21 Atorvastatin [Lipitor] 40 mg PO HS 09/19/21 09/19/21 Cholecalciferol [Vitamin D3 (25 100 mcg PO HS 09/19/21 09/19/21 Mcg = 1000 Iu)] Clopidogrel [Plavix] 75 mg PO DAILY@0800 09/19/21 09/19/21 Cyanocobalamin [Vitamin B-12] 500 mcg PO DAILY 09/19/21 09/19/21 Fluticasone/Vilanterol [Breo 1 puff INHALATION RT-DAILY 09/19/21 09/19/21 Ellipta 100-25 Mcg Inhaler] Healthshake 1 dose PO BID 09/19/21 09/19/21 Insuln Asp Prt/Insulin Aspart 12 unit SQ AC-BID 09/19/21 09/19/21 [NovoLOG MIX 70-30 VIAL] Loperamide [Imodium] 2 mg PO Q4H PRN 09/19/21 09/19/21 Magnesium Hydroxide [Milk of 2,400 mg PO Q12H PRN 09/19/21 09/19/21 Magnesia] Metoprolol Tartrate [Lopressor] 50 mg PO BID@0800,1600 09/19/21 09/19/21 Marianne-Guard 1 applic TOPICAL DIRECTED 09/19/21 09/19/21 lisinopriL [Zestril] 2.5 mg PO BID@0800,1600 09/19/21 09/19/21 Previous Rx's Medication Instructions Recorded Enoxaparin [Lovenox] 40 mg SQ DAILY each 07/23/21 Furosemide [Lasix] 20 mg PO DAILY tab 07/23/21 Ipratropium-Albuterol Nebulize 3 ml INHALATION RT-Q2H PRN ml 07/23/21 [Duoneb 0.5 mg-3 mg/3 ml Soln] Melatonin 6 mg PO HS tablet 07/23/21 bisacodyL [Dulcolax] 10 mg RECTAL DAILY PRN supp 07/23/21 Ascorbic Acid [Vitamin C] 500 mg PO BID tab 09/21/21 Gabapentin [Neurontin] 100 mg PO DAILY #3 cap 09/21/21 Gabapentin [Neurontin] 200 mg PO HS #4 cap 09/21/21 HYDROcodone/APAP 10-325MG [[place] 1 tab PO Q6H PRN #6 tab 09/21/21 10-325] Zinc Sulfate [Orazinc] 220 mg PO DAILY 14 Days #14 cap 09/21/21 Allergies Allergy/AdvReac Type Severity Reaction Status Date / Time pregabalin [From Lyrica] Allergy Swelling Verified 11/02/21 18:11 trazodone Allergy Unknown Verified 11/02/21 18:11 Review of Systems ROS Statement: Those systems with pertinent positive or pertinent negative responses have been documented in the HPI. ROS Other: All systems not noted in ROS Statement are negative. Past Medical History Past Medical History: Diabetes Mellitus, Fibromyalgia, Hyperlipidemia, Hypertension, Osteoarthritis (OA) Additional Past Medical History / Comment(s): myalgia, myositis, sciatica, chronic pain syndrome, vaginitis, otalgia, fatigue, malaise, UTI, microscopic hematuria, tachycardia, insomnia, lumbago, degenerative disc, colitis History of Any Multi-Drug Resistant Organisms: C-DIFF Date of last positivie culture/infection: February 15 2020 MDRO Source:: stool Past Surgical History: Cholecystectomy, Coronary Bypass/CABG, Orthopedic Surgery, Tubal Ligation Additional Past Surgical History / Comment(s): left wrist Past Anesthesia/Blood Transfusion Reactions: No Reported Reaction Past Psychological History: Depression Smoking Status: Former smoker Past Alcohol Use History: None Reported Past Drug Use History: Marijuana - Past Family History Mother Family Medical History: Cancer, COPD Additional Family Medical History / Comment(s): cervical cancer Father Family Medical History: Cancer Additional Family Medical History / Comment(s): etoh abuse General Exam Limitations: altered mental status Course Vital Signs 11/02/21 11/02/21 17:58 18:11 Pulse Rate 85 38 L Respiratory 18 Rate Blood Pressure 71/35 78/34 Medical Decision Making - Lab Data Lab Results 11/02/21 Range/Units 18:00 POC Glucose (mg/dL) 279 H (75-99) mg/dL POC Glu Dishwasher ID Petty Mckeon Critical Care Time Critical Care Time: Yes Total Critical Care Time: 33 Disposition Clinical Impression: Cardiac arrest Disposition: ADMITTED IP TO THIS [facility] Condition: Critical Referrals: Vince Marcos III, MD [Primary Care Provider] - 1-2 days
[2021-11-02] MEDS ORDERED: LIDOCAINE 1% INJ 10MG/ML (20 ML MDV) SQ ONE (18:36)
[2021-11-02] MEDS ORDERED: NALOXONE 0.4 MG/ML 1 ML VIAL IV PRN (18:50)
[2021-11-02] MEDS ORDERED: MIDAZOLAM 2 MG/2 ML VIAL IV ONE ×2 (19:07→19:25)
[2021-11-02] MEDS ORDERED: IOPAMIDOL-370 125ML BTL INJ ONE ×2 (19:08)
[2021-11-02] MEDS ORDERED: fentaNYL (PF) 50 MCG/ML 2 ML AMP ONE (19:08)
[2021-11-02] MEDS ORDERED: RX INFO: IV CONTRAST WAS GIVEN 1 EACH MISC MISCELLANE PRN (19:14)
[2021-11-02] MEDS ORDERED: SODIUM CHLORIDE 0.9% 1,000 ML IV SCH (19:15)
[2021-11-02] MEDS ORDERED: fentaNYL (PF) 50 MCG/ML 2 ML AMP IV ONE (19:25)
--- NOTE | 2021-11-02 19:32 | P.CRDCN ---
History of Present Illness Consult date: 11/02/21 History of present illness: This is a 61-year-old female with history of ischemic heart disease who had aortic valve repair bypass surgery a few months ago for diffuse coronary artery disease. Patient had a sequential SY graft to the mid and distal LAD, vein graft to the circumflex and vein graft to the RCA. Patient apparently had cardiac arrest at home and somebody called paramedics. The details of the arrest are not available. There is no family member available at this time to talk to. By the time I saw patient is in the catheterization laboratory technician on the table intubated. Patient pupils are dilated and fixed. Patient is comatose and not responding. The ER physician called of seeing the patient had a cardiac arrest with EKG showing evidence of inferior wall ID and some ST elevation in V3. Reviewed the EKGs with Dr. Fairchild and we do not see any definite EKG changes of ST elevation. EKGs showed Q waves in inferior leads with minimal ST elevation and some mild elevation of in V3. Patient seemed to be junctional tachycardia with very low blood pressures. Patient was initiated on IV Levophed with gradual improvement of blood pressure. It is felt that most probably patient has significant pain damage. However, we decided to proceed with cardiac catheterization because of the uncertainty. Her prognosis is extremely poor. Most probably she might have had a primary cardiac arrest. Further recommendations depend upon the findings on the cath. Review of Systems Not done Past Medical History Past Medical History: Diabetes Mellitus, Fibromyalgia, Hyperlipidemia, Hypertension, Osteoarthritis (OA) Additional Past Medical History / Comment(s): myalgia, myositis, sciatica, chronic pain syndrome, vaginitis, otalgia, fatigue, malaise, UTI, microscopic hematuria, tachycardia, insomnia, lumbago, degenerative disc, colitis History of Any Multi-Drug Resistant Organisms: C-DIFF Date of last positivie culture/infection: February 15 2020 MDRO Source:: stool Past Surgical History: Cholecystectomy, Coronary Bypass/CABG, Orthopedic Surgery, Tubal Ligation Additional Past Surgical History / Comment(s): left wrist Past Anesthesia/Blood Transfusion Reactions: No Reported Reaction Past Psychological History: Depression Smoking Status: Former smoker Past Alcohol Use History: None Reported Past Drug Use History: Marijuana - Past Family History Mother Family Medical History: Cancer, COPD Additional Family Medical History / Comment(s): cervical cancer Father Family Medical History: Cancer Additional Family Medical History / Comment(s): etoh abuse Medications and Allergies Home Medications Medication Instructions Recorded Confirmed Type DULoxetine HCL [Cymbalta] 30 mg PO DAILY@0800 03/12/20 09/19/21 History metFORMIN HCL [Glucophage] 1,000 mg PO BID@0800,1600 03/12/20 09/19/21 History Pantoprazole Sodium 40 mg PO DAILY@0800 01/10/21 09/19/21 History Enoxaparin [Lovenox] 40 mg SQ DAILY each 07/23/21 09/19/21 Rx Furosemide [Lasix] 20 mg PO DAILY tab 07/23/21 09/19/21 Rx Ipratropium-Albuterol Nebulize 3 ml INHALATION RT-Q2H PRN ml 07/23/21 09/19/21 Rx [Duoneb 0.5 mg-3 mg/3 ml Soln] Melatonin 6 mg PO HS tablet 07/23/21 09/19/21 Rx bisacodyL [Dulcolax] 10 mg RECTAL DAILY PRN supp 07/23/21 09/19/21 Rx Acetaminophen [Acetaminophen ER] 650 mg PO Q4H PRN 09/19/21 09/19/21 History Aspirin 325 mg PO DAILY@0800 09/19/21 09/19/21 History Atorvastatin [Lipitor] 40 mg PO HS 09/19/21 09/19/21 History Cholecalciferol [Vitamin D3 (25 100 mcg PO HS 09/19/21 09/19/21 History Mcg = 1000 Iu)] Clopidogrel [Plavix] 75 mg PO DAILY@0800 09/19/21 09/19/21 History Cyanocobalamin [Vitamin B-12] 500 mcg PO DAILY 09/19/21 09/19/21 History Fluticasone/Vilanterol [Breo 1 puff INHALATION RT-DAILY 09/19/21 09/19/21 History Ellipta 100-25 Mcg Inhaler] Healthshake 1 dose PO BID 09/19/21 09/19/21 History Insuln Asp Prt/Insulin Aspart 12 unit SQ AC-BID 09/19/21 09/19/21 History [NovoLOG MIX 70-30 VIAL] Loperamide [Imodium] 2 mg PO Q4H PRN 09/19/21 09/19/21 History Magnesium Hydroxide [Milk of 2,400 mg PO Q12H PRN 09/19/21 09/19/21 History Magnesia] Metoprolol Tartrate [Lopressor] 50 mg PO BID@0800,1600 09/19/21 09/19/21 History Marianne-Guard 1 applic TOPICAL DIRECTED 09/19/21 09/19/21 History lisinopriL [Zestril] 2.5 mg PO BID@0800,1600 09/19/21 09/19/21 History Ascorbic Acid [Vitamin C] 500 mg PO BID tab 09/21/21 Rx Gabapentin [Neurontin] 100 mg PO DAILY #3 cap 09/21/21 Rx Gabapentin [Neurontin] 200 mg PO HS #4 cap 09/21/21 Rx HYDROcodone/APAP 10-325MG [[place] 1 tab PO Q6H PRN #6 tab 09/21/21 Rx 10-325] Zinc Sulfate [Orazinc] 220 mg PO DAILY 14 Days #14 cap 09/21/21 Rx Allergies Allergy/AdvReac Type Severity Reaction Status Date / Time pregabalin [From Lyrica] Allergy Swelling Verified 11/02/21 18:11 trazodone Allergy Unknown Verified 11/02/21 18:11 Physical Exam Vitals: Vital Signs Pulse Resp BP 11/02/21 18:11 38 L 78/34 11/02/21 17:58 85 18 71/35 Intake and Output 11/02/21 11/02/21 11/02/21 06:59 14:59 22:59 Other: Weight 45.8 kg GENERAL EXAM: Patient is completely unresponsive HEENT: Normocephalic. Widely dilated and fixed pupils, nonreactive NECK: No masses, no nuchal rigidity. CHEST: No chest wall deformity. LUNGS: Diminished air exchange HEART: S1 and S2 normal . Distant heart sounds ABDOMEN: Soft SKIN: No rashes CENTRAL NERVOUS SYSTEM: In coma. EXTREMITIES: No cyanosis, clubbing or edema. Results Current Medications Generic Name Dose Route Start Last Admin Trade Name Freq PRN Reason Stop Dose Admin Aspirin 81 mg 11/02/21 21:00 Aspirin 81 Mg PO HS HORTENCIA Sodium Chloride 1,000 mls @ 100 mls/hr 11/02/21 19:15 Saline 0.9% IV .Q10H HORTENCIA Norepinephrine Bitartrate 4 mg 254 mls @ 8.725 mls/hr 11/02/21 19:30 / Sodium Chloride IV .Q24H HORTENCIA Protocol 0.05 MCG/KG/MIN Miscellaneous Information 1 each 11/02/21 19:14 Rx Info: Iv Contrast Was Given 1 Each Misc MISCELLANE 11/04/21 19:14 DAILY PRN Per Protocol Naloxone HCl 0.2 mg 11/02/21 18:50 Naloxone 0.4 Mg/Ml 1 Ml Vial IV Q2M PRN Opioid Reversal Intake and Output 11/02/21 11/02/21 11/02/21 06:59 14:59 22:59 Other: Weight 45.8 kg Patient Weight 11/03/21 06:59 Weight 45.8 kg EKG Interpretations (text) Initial EKG showed sinus rhythm with Q waves in inferior leads size to of possible subacute and free wall ID with some ST elevation in V3 Assessment and Plan (1) Acute coronary syndrome Current Visit: Yes Status: Acute Code(s): I24.9 - ACUTE ISCHEMIC HEART DISEASE, UNSPECIFIED SNOMED Code(s): 564370045 (2) Cardiac arrest Current Visit: Yes Status: Acute Code(s): I46.9 - CARDIAC ARREST, CAUSE UNSPECIFIED SNOMED Code(s): 211880715 (3) CAD (coronary artery disease) Current Visit: Yes Status: Acute Code(s): I25.10 - ATHSCL HEART DISEASE OF [place] CORONARY ARTERY W/O ANG PCTRS SNOMED Code(s): 08717388 (4) Diabetes mellitus Current Visit: Yes Status: Acute Code(s): E11.9 - TYPE 2 DIABETES MELLITUS WITHOUT COMPLICATIONS SNOMED Code(s): 69126080 Plan: This patient presented with cardiac arrest with some thick ST-T abnormalities consistent maybe non-STEMI or subacute inferior wall ID. Patient has a dilated and fixed pupils and most probably has significant brain damage. We'll proceed with cardiac catheterization for definitive diagnosis. Further recommendations depend upon the findings on the cardiac cath. However, her prognosis is extremely poor.
[2021-11-02] MEDS ORDERED: propofoL 100 ML IV ONE (19:36)
--- NOTE | 2021-11-02 19:44 | P.CARDCATH ---
Date of Procedure: 11/02/21 Preoperative Diagnosis: Cardiac arrest, acute coronary syndrome and possible non-STEMI Postoperative Diagnosis: Diffuse coronary artery disease with patent SY graft to the LAD and vein graft to the circumflex. Diffuse disease in the comanche right and also in the circumflex and right coronary artery Procedure(s) Performed: Left heart catheterization without left ventriculography Description of Procedure: HISTORY: This is a 61-year-old female who presented to the hospital with cardiac arrest diffuse ST-T abnormalities CONSENT:I have discussed the risks, benefits and alternative therapies for the above-mentioned procedure and for both sedation/analgesia as well as necessary blood product administration, if indicated, as they pertain to this patient. The patient has indicated understanding and acceptance of the risks and procedures discussed. PROCEDURE: Patient was brought to the lab from emergency room intubated, unresponsive and comatose. Patient was given some IV sedation. The right groin is infiltrated with lidocaine and right femoral artery was entered using Seldinger technique. A 6-[place] catheter was left in place and selective coronary arteriography and selective injection of the SY graft to the LAD and vein graft to the circumflex was performed. Patient tolerated the procedure well. Sheath in femoral artery was left for hemodynamic monitoring. Patient was started on heparin drip No immediate complications were noted and patient was transferred to [facility] in a stable condition Conscious Sedation: Versed 2 mg Fentanyl 50 g Duration 20minutes HEMODYNAMICS: The aortic pressure is about 80-90 systolic SELECTIVE CORONARY ARTERIOGRAPHY: LEFT MAIN: Normal length and patent THE LEFT ANTERIOR DESCENDING CORONARY ARTERY: . Moderate caliber vessel and seemed to be closed after the diagonal branch THE LEFT CIRCUMFLEX AND IS CORONARY ARTERY: , Total occlusion of the OM branch to 80% stenosis involving the AV groove segment THE RIGHT CORONARY ARTERY: And small vessel with multiple 99% stenosis. The SY graft TO THE LAD: This is patent throat its length and at the proximal anastomosis to the mid LAD. It continues as a jump graft to the distal LAD but becomes very small in caliber. The comanche LAD between the jump grafts shows an area of haziness and thrombus formation. The distal LAD beyond the jump graft seemed to be fair in caliber. The vein graft to the CIRCUMFLEX: This is a good caliber vessel and patent at the proximal and distal anastomosis. The circumflex beyond the graft appears to be free of any significant occlusive disease. THE VEIN GRAFT TO THE RCA: This is not selectively studied and felt to be totally occluded LEFT VENTRICULOGRAPHY: Not performed FINAL IMPRESSION: Cardiac arrest. Possible non-STEMI or subacute inferior wall OR. Diffuse coronary artery disease with patent SY graft to LAD and vein graft to the OM branch PLAN: The films are reviewed with on-call manager office services, Dr. Fairchild and also Dr. Watson who is her primary emr implementation specialist. Maximum medical therapy without any intervention. PROGNOSIS: poor
[2021-11-02 20:22] LABS: Glucose,Whole Blood 405 mg/dL (75-99)
[2021-11-02 20:22] LABS: Glucose,Whole Blood 397 mg/dL (75-99)
[2021-11-02] MEDS: NOREPINEPHRINE 4 MG in SODIUM CHLORIDE 0.9% 250 ML IV SCH ×2 (20:23→22:43)
[2021-11-02 20:34] VITALS: TEMP 90
[2021-11-02 20:34] LABS: ABG Base Excess -21.1 mmol/L; ABG Oxygen Saturation 99.4 % (94-97); ABG PO2 >400 mmHg (83-108); ABG TCO2 8 mmol/L (19-24); Allen Test Performed? Yes
[2021-11-02] MEDS ORDERED: ASPIRIN 81 MG PO SCH (21:00)
[2021-11-02] MEDS ORDERED: CHLORHEXIDINE GLUCONATE 15 ML CUP MUCOUS MEM SCH (21:00)
--- NOTE | 2021-11-02 21:05 | XR ---
EXAMINATION TYPE: XR chest 1V portable DATE OF EXAM: 11/02/2021 COMPARISON: 11/02/2021 HISTORY: Weakness. Chest pain TECHNIQUE: FINDINGS: Heart and mediastinum appear normal. Lungs are clear of consolidation. There is some mild i ncreased interstitial density left lower lobe. No heart failure seen. There appears to be endotrachea l tube with the tip 5 cm from the qing. There is nasogastric tube in the stomach. No pleural effusi on. There are chest leads. IMPRESSION: No acute lung disease. No pulmonary consolidation or heart failure. Mild interstitial inc reased density left lower lobe that could be some developing interstitial pneumonia and appears new c ompared to exam 2 hours ago.
[2021-11-02 21:06] LABS: ABG PH 7.19 (7.35-7.45)
[2021-11-02 21:07] LABS: ABG HCO3 7 mmol/L (21-25); ABG PCO2 19 mmHg (35-45)
[2021-11-02] MEDS ORDERED: SODIUM CHLORIDE 0.9% 2,000 ML IV ONE (21:12)
[2021-11-02] MEDS ORDERED: INSULIN ASPART (NovoLOG) 100 UNIT/ML VIAL SQ ONE (21:15)
[2021-11-02] MEDS ORDERED: DEXTROSE 5% IN WATER 1,000 ML with SODIUM BICARB (1 MEQ/ML) 150 ML IV SCH (21:15)
[2021-11-02] MEDS ORDERED: CISATRACURIUM 200 MG in SODIUM CHLORIDE 0.9% 180 ML IV SCH (21:15)
--- NOTE | 2021-11-02 21:23 | XR ---
EXAMINATION TYPE: XR chest 1V portable DATE OF EXAM: 11/02/2021 COMPARISON: 09/19/2021 HISTORY: Weakness. Heart attack. TECHNIQUE: Single view FINDINGS: Endotracheal tube is 4.5 cm from the qing. Lungs are clear of infiltrate. No heart failur e. There are chest leads. There are sternal wires. Bony thorax is intact. IMPRESSION: No heart failure or pulmonary consolidation. Endotracheal tube in good position. Heart an d lungs not changed compared to old exam.
[2021-11-02 21:53] LABS: Ionized Calcium 4.1 mg/dL (4.5-5.3)
[2021-11-02 21:55] LABS: Anisocytosis Slight; HCT 30.1 % (34.0-46.0); Hypochromasia Marked; MCH 29.2 pg (25.0-35.0); MCHC 28.8 g/dL (31.0-37.0); Macrocytosis Moderate; Mean Platelet Volume 7.9; Platelet Count 320 k/uL (150-450); RBC 2.97 m/uL (3.80-5.40); RDW 17.6 % (11.5-15.5)
[2021-11-02 21:57] LABS: HGB 8.7 gm/dL (11.4-16.0)
[2021-11-02 21:58] LABS: MCV 101.2 fL (80.0-100.0)
[2021-11-02 22:02] LABS: Albumin 2.4 g/dL (3.5-5.0); Calcium 6.8 mg/dL (8.4-10.2); Magnesium 1.7 mg/dL (1.6-2.3); Total Bilirubin 0.6 mg/dL (0.2-1.3); Total Protein 5.6 g/dL (6.3-8.2)
[2021-11-02 22:29] LABS: Potassium 6.6 mmol/L (3.5-5.1)
[2021-11-02] MEDS ORDERED: SODIUM CHLORIDE 0.9% 50 ML with VASOPRESSIN 20 UNIT IVPB SCH ×2 (23:00)
[2021-11-02 23:57] LABS: Glucose,Whole Blood 311 mg/dL (75-99)
[2021-11-03] MEDS ORDERED: INSULIN ASPART (NovoLOG) 100 UNIT/ML VIAL SQ SCH
[2021-11-03] MEDS ORDERED: CALCIUM CHLORIDE 100 MG/ML 10 ML SYRINGE ONE (00:16)
[2021-11-03] MEDS ORDERED: SODIUM BICARB 8.4% 50 ML SYR (1 MEQ/ML) ONE (00:16)
[2021-11-03] MEDS ORDERED: EPINEPHrine 10 ML SYRINGE (0.1 MG/ML) ONE (00:16)
[2021-11-03 00:20] LABS: Glucose,Whole Blood 328 mg/dL (75-99)
[2021-11-03 00:54] VITALS: BP 0/0; PULSE 98; RESP 0
--- NOTE | 2021-11-03 01:20 | P.EN ---
Code Blue Note Activated at 0016. Arrived at the scene shortly after. Reviewed the chart and discussed the case with RN. The patient was undergoing CPR. The patient reportedly had presented to the emergency room for cardiac arrest and had received several rounds of CPR with ROSC. The patient's history was significant for coronary artery disease status post CABG. She was immediately taken to the cardiac catheterization lab where no intervention was performed. She was then taken to the medical ICU where she was started on multiple pressors for shock. She subsequently developed PEA for which ACLS protocol was immediately initiated with high quality CPR. The patient received epinephrine IV push 6, sodium bicarb and at 2, and calcium chloride 1 and remained in PEA without any shockable rhythms. The patient's daughter was present at the bedside the entire time. She requested to halt the CPR at 0032. Total time spent providing critical care for this patient: 35 minutes
== END 2021-11-03 02:30 | disposition expired ==
LOC: EC 17:56 → 2SICU 18:51
PROVIDERS: ADMIT Internal Medicine; ATTEND Internal Medicine
PROC: 4A023N7 Measurement of Cardiac Sampling and Pressure, Left Heart, Percutaneous Approach (ICD-10-PCS; 2021-11-02)
PROC: B2111ZZ Fluoroscopy of Multiple Coronary Arteries using Low Osmolar Contrast (ICD-10-PCS; 2021-11-02)
PROC: 3E033XZ Introduction of Vasopressor into Peripheral Vein, Percutaneous Approach (ICD-10-PCS; 2021-11-02)
PROC: 5A1935Z Respiratory Ventilation, Less than 24 Consecutive Hours (ICD-10-PCS; 2021-11-02)
PROC: 0BH17EZ Insertion of Endotracheal Airway into Trachea, Via Natural or Artificial Opening (ICD-10-PCS; 2021-11-02)
PROC: 5A12012 Performance of Cardiac Output, Single, Manual (ICD-10-PCS; principal; 2021-11-02 18:07)
DX: I21.19 ST elevation (STEMI) myocardial infarction involving other coronary artery of inferior wall (principal); R40.20 Unspecified coma; I47.1 Supraventricular tachycardia; I25.810 Atherosclerosis of coronary artery bypass graft(s) without angina pectoris; E11.9 Type 2 diabetes mellitus without complications; Z66 Do not resuscitate; Z51.5 Encounter for palliative care; E78.5 Hyperlipidemia, unspecified; G89.4 Chronic pain syndrome; H57.04 Mydriasis; I10 Essential (primary) hypertension; I25.10 Atherosclerotic heart disease of native coronary artery without angina pectoris; I46.2 Cardiac arrest due to underlying cardiac condition; M79.7 Fibromyalgia; Z79.02 Long term (current) use of antithrombotics/antiplatelets; Z79.82 Long term (current) use of aspirin; Z79.84 Long term (current) use of oral hypoglycemic drugs; Z79.899 Other long term (current) drug therapy; Z80.49 Family history of malignant neoplasm of other genital organs; Z82.5 Family history of asthma and other chronic lower respiratory diseases; Z87.891 Personal history of nicotine dependence; Z95.1 Presence of aortocoronary bypass graft; Z88.8 Allergy status to other drugs, medicaments and biological substances
CPT/HCPCS: 36415; 71045; 80053; 82330; 82805; 83735; 85027; 87070; 87205; 93005; 93455; 94002; 94003; 99291